=== PATIENT | female | born 1970 | race Caucasian/White ===

== ENCOUNTER 2016-06-29 15:16 | Outpatient (RCR) | payer MEDICARE, MEDICAID ==
[2016-06-14 13:30] LABS: BASOPHILS # (AUTO) 0.1 10^3/uL (0.0-0.1); BASOPHILS % (AUTO) 1 % (0-10); EOSINOPHILS # (AUTO) 0.1 10^3/uL (0.0-0.3); EOSINOPHILS % (AUTO) 1 % (0-10); LYMPHOCYTES # (AUTO) 3.1 X 10^3 (1.0-4.0); LYMPHOCYTES % (AUTO) 29 % (12-44); MEAN CORPUSCULAR HEMOGLOBIN 29 PG (25-34); MEAN CORPUSCULAR HGB CONC 31 G/DL (32-36); MEAN CORPUSCULAR VOLUME 93 FL (80-99); MONOCYTES # (AUTO) 0.8 X 10^3 (0.0-1.0); MONOCYTES % (AUTO) 7 % (0-12); NEUTROPHILS # (AUTO) 6.6 X 10^3 (1.8-7.8); NEUTROPHILS % (AUTO) 62 % (42-75); PLATELET COUNT 453 10^3/uL (130-400); RED BLOOD COUNT 4.97 10^6/uL (4.35-5.85); RED CELL DISTRIBUTION WIDTH 14.8 % (10.0-14.5); WHITE BLOOD COUNT 10.6 10^3/uL (4.3-11.0)
[2016-06-14 14:20] LABS: ALANINE AMINOTRANSFERASE 36 U/L (0-55); ANION GAP 11 MMOL/L (5-14); ASPARTATE AMINO TRANSFERASE 53 U/L (5-34); BILIRUBIN,TOTAL 0.7 MG/DL (0.1-1.0); BLOOD UREA NITROGEN 10 MG/DL (7-18); BUN/CREATININE RATIO 14; CALCIUM 9.3 MG/DL (8.5-10.1); CARBON DIOXIDE 30 MMOL/L (21-32); CHLORIDE 97 MMOL/L (98-107); CREATININE SERUM 0.74 MG/DL (0.60-1.30); GFR ESTIMATED > 60; GLUCOSE 161 MG/DL (70-105); POTASSIUM 4.3 MMOL/L (3.6-5.0); SODIUM 138 MMOL/L (135-145); TOTAL PROTEIN 7.1 G/DL (6.4-8.2)
[2016-06-14 14:26] LABS: ERYTHROCYTE SEDIMENTATION RATE 3 MM/HR (0-20)
[~2016-06-29 15:16] MED LIST: AC325T PO; ACHYD1T PO; ALPR.25T PO; ASPI-587 PO; ATOR80TA75 PO; BSC10SU PR; CLN.1T PO; CLON1TAB3 PO; CLONIDINE; CLOP75TA PO; CLPD75T PO; DLT30T PO; FERRIC CARBOXYMALTOSE (CANCER) 750 MG in NS (IVPB) CANCER CENTER 250 ML IV SCH; FURO20TA4 PO; GEMF600T3 PO; GEMFIBROZIL; HCT25T PO; HCTZ12.5T PO; HYDR-2890 PO; LVF500T PO; MECL25TA56 PO; MELA1TAB20 PO; METO25TA2 PO; NAPR-243 PO; NAPROXEN; NCT14P TD; NYST1000 PO; OMEP40CA36 PO; ONDA-42 SL; ONDA4TAB8 SL; POLY17PO23 PO; PROPRANOLOL PO; SCP1.5TD TOP; SENN1TAB76 PO; SULF1TAB38 PO; TELM40T PO; TRM50T PO
[2016-08-16] MEDS ORDERED: NITR-65 PO (16:44)
[2016-08-16] MEDS ORDERED: PHEN-640 PO (16:44)
== END 2016-09-12 | disposition home or self-care (01) ==
LOC: ONC 15:16
PROVIDERS: ATTEND Internal Medicine Hematology & Oncology
DX: D47.3 Essential (hemorrhagic) thrombocythemia (principal); D72.829 Elevated white blood cell count, unspecified; I69.992 Facial weakness following unspecified cerebrovascular disease; I69.998 Other sequelae following unspecified cerebrovascular disease; M62.81 Muscle weakness (generalized); I10 Essential (primary) hypertension; R00.0 Tachycardia, unspecified; E78.5 Hyperlipidemia, unspecified; Z79.899 Other long term (current) drug therapy
CPT/HCPCS: 36415; 80053; 82728; 83540; 85025; 85240; 85652; 96365; 99213

== ENCOUNTER → 2016-07-02 | Outpatient (CLI) | payer MEDICARE, MEDICAID ==
[~2016-07-02] MED LIST changes: -FERRIC CARBOXYMALTOSE (CANCER) 750 MG in NS (IVPB) CANCER CENTER 250 ML IV SCH; +GADOBUTROL 10 MMOL/10 ML (GADAVIST) VIAL IV ONE
--- NOTE | 2016-07-02 14:32 | Diagnostic Imaging Report ---
PROCEDURE: MR imaging of the brain with and without contrast. TECHNIQUE: Multiplanar, multisequence MR imaging of the brain was performed with and without contrast. INDICATION: Headache. 9 mL of Gadovist is administered intravenously. COMPARISON: Comparison with recent CT head and MRI of the brain from 04/20/2012 is reviewed. FINDINGS: There is no diffusion restriction. There are foci of low T1 and T2 hyperintense signal less than a centimeter in the posterior left side aspect of the medulla oblongata and in the mid and posterior aspect of the left cerebellar hemisphere with similar findings on MRI from 2012 compatible with old lacunar infarcts or sequela of other insults. No acute infarct. Supratentorial brain demonstrates normal volume with normal signal intensity. No edema, demyelinating plaque, or enhancing mass. There is no hydrocephalus. No extra-axial fluid collection is seen. The pituitary gland is normal in size. No hypothalamic or pineal region mass. The central vascular flow voids appear grossly unremarkable. The internal auditory canals and inner ear structures appear unremarkable. The paranasal sinuses and orbits appear grossly unremarkable. There is mild thickening of the mucosa along the middle and inferior turbinates particularly on the right side narrowing the right nasal passages. IMPRESSION: 1. No acute infarct or enhancing mass. 2. Chronic small foci of signal abnormality in the posterior left medulla oblongata and in the left cerebellar hemisphere. These may relate to lacunar infarcts in the distribution of the left posterior inferior cerebellar artery or sequela of prior other insults. 3. Mild mucosal thickening along the right middle and inferior turbinates with narrowing of the right nasal passages. Dictated by: Dictated on workstation # [id number]
== END ==
LOC: RAD 10:14
PROVIDERS: ATTEND Internal Medicine Hematology & Oncology
DX: R51 Headache (principal); R42 Dizziness and giddiness
CPT/HCPCS: 70553

== ENCOUNTER 2016-08-16 13:53 | Emergency (ER) | payer MEDICARE, MEDICAID ==
[~2016-08-16] VITALS: Ht 157.5 cm; Wt 93.4 kg
[~2016-08-16 13:53] MED LIST changes: -GADOBUTROL 10 MMOL/10 ML (GADAVIST) VIAL IV ONE
[2016-08-16 15:14] LABS: KETONES,URINE NEGATIVE (NEGATIVE); LEUKOCYTE ESTERASE ,URINE NEGATIVE (NEGATIVE); NITRITE,URINE POSITIVE (NEGATIVE); PH,URINE 5 (5-9); PROTEIN,URINE 2+ (NEGATIVE); UROBILINOGEN,URINE 4 MG/DL (NORMAL)
[2016-08-16 15:38] LABS: BILIRUBIN,URINE 3+ (NEGATIVE)
--- NOTE | 2016-08-16 15:45 | ED GU-Female ---
General Chief Complaint: -Female Stated Complaint: UTI Nursing Triage Note: PT CO OF UTI SX STARTED YESTERDAY, HAS SOME HEMATURIA, HAS PAIN 10/10 WHEN VOIDS Nursing Sepsis Screen: No Definite Risk Source: patient Exam Limitations: no limitations History of Present Illness Time seen by provider: 15:45 Initial Comments 45-year-old female patient presents to the emergency department complains of dysuria and hematuria. Reports onset of symptoms yesterday. Patient does take a blood thinner and baby aspirin for previous CVA. Has been using Azo over-the- counter without improvement. Timing/Duration: yesterday, getting worse Severity/Quality: burning Location: urethral Radiation: none Activities at Onset: other (urination) Prior Genitourinary Problems: similar symptoms Modifying Factors: Worsens With Urinating Allergies and Home Medications Allergies Coded Allergies: erythromycin base (Unverified Allergy, Mild, 11/11/08) Penicillins (Verified Allergy, Unknown, 11/14/08) codeine (Verified Allergy, Unknown, 11/14/08) Home Medications Acetaminophen 325 Mg Tab, 650 MG PO Q4H PRN for mild pain or fever for 30 Days Prescribed by: ERNESTO SY on 09/28/1332 Aspirin 81 Mg Tablet.dr, 81 MG PO DAILY, (Reported) Atorvastatin Calcium 80 Mg Tablet, 80 MG PO HS, #30 Prescribed by: CELIA ISAACS on 09/24/131849 Bisacodyl 10 Mg Supp, 10 MG TN DAILY PRN for CONSTIPATION for 30 Days Prescribed by: ERNESTO SY on 09/28/13 0932 Clopidogrel Bisulfate 75 Mg Tablet, 1 EACH PO DAILY, #30 Prescribed by: CELIA ISAACS on 09/24/131849 Diltiazem Hcl 30 Mg Tab, 30 MG PO Q8HR for 30 Days Prescribed by: ERNESTO SY on 09/28/13 0932 Hydrochlorothiazide 12.5 Mg Cap, 25 MG PO DAILY, (Reported) Hydrocodone Bit/Acetaminophen 1 Each Tablet, 1 EACH PO NEEDED, (Reported) Melatonin/Pyridoxine Hcl (B6) 1 Each Tab.mphase, 1 EACH PO HS, (Reported) Metoprolol Tartrate 25 Mg Tablet, 25 MG PO BID for 30 Days Prescribed by: ERNESTO SY on 09/28/13 0932 Nystatin 60 Ml Btl, 5 ML PO Q6H for 5 Days swish and swallow QID x5 days Prescribed by: THELMA FARAH on 05/11/14 2018 Omeprazole 40 Mg Capsule.dr, 40 MG PO DAILY, (Reported) Ondansetron 4 Mg Tab.rapdis, 4 MG SL Q4H PRN for NAUSEA/VOMITING, #10 Prescribed by: AKBAR BARROW on 09/10/15 0349 Ondansetron Hcl 4 Mg Tab, 4 MG SL Q4H, #10 FOR NAUSEA AND VOMITING Prescribed by: BLAIR DANIELS on 05/19/14 1128 Polyethylene Glycol 17 Gm Pack, 17 GM PO DAILY PRN for CONSTIPATION, #30 Prescribed by: CELIA ISAACS on 09/24/13 1850 Senna 1 Ea Tablet, 1 EA PO BID for 30 Days Prescribed by: ERNESTO SY on 09/28/13 0932 Constitutional: No chills, No fever, No malaise Respiratory: no symptoms reported Cardiovascular: no symptoms reported Gastrointestinal: No abdominal pain, No constipation, No diarrhea, No nausea, No vomiting Genitourinary: see HPI, burning, dysuria, frequency, denies flank pain, hematuria Musculoskeletal: No back pain Skin: no symptoms reported Psychiatric/Neurological: No Symptoms Reported All Other Systemes Reviewed Negative Unless Noted: Yes (Negative excepted noted.) Past Qqwypno-Syvhlg-Jegque Hx Patient Social History Alcohol Use: Denies Use Recreational Drug Use: No Smoking Status: Current Everyday Smoker Type Used: Cigarettes Recent Foreign Travel: No Contact w/Someone Who Travel: No Recent Infectious Disease Expo: No Immunizations Up To Date Tetanus Booster (TDap): Unknown PED Vaccines UTD: No Surgeries HX Surgeries: Yes Surgeries: Section, Gallbladder, Tubal Ligation Respiratory Hx Respiratory Disorders: No Cardiovascular Hx Cardiac Disorders: Yes Cardiac Disorders: Hypertension, Irregular Heartbeat Neurological Hx Neurological Disorders: Yes Neurological Disorders: Stroke, Vertigo Reproductive System Hx Reproductive Disorders: Yes Sexually Transmitted Disease: No Female Reproductive Disorders: Endometriosis 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 Genitourinary Hx Genitourinary Disorders: No Gastrointestinal Hx Gastrointestinal Disorders: Yes Gastrointestinal Disorders: Gastroesophageal Reflux, Hiatal Hernia, Gall Bladder Disease Musculoskeletal Hx Musculoskeletal Disorders: Yes Musculoskeletal Disorders: Arthritis Endocrine Hx Endocrine Disorders: No Endocrine Disorders: Diabetes, Insulin dep, Diabetes, Non-Insulin dep HEENT HX ENT Disorders: Yes Cancer Hx Cancer: No Psychosocial Hx Psychiatric Problems: Yes Behavioral Health Disorders: Anxiety Integumentary HX Skin/Integumentary Disorder: No Blood Transfusions Hx Blood Disorders: Yes ("CLOTTING DISORDER", chronic leukocytosis) Adverse Reaction to a Blood Tr: No Reviewed Nursing Assessment Reviewed/Agree w Nursing PMH: Yes Family Medical History Significant Family History: Heart Disease, Hypertension, Stroke Family Medial History: Cancer 19 MOTHER (THROAT CANCER) Family history: Hypertension 19 MOTHER History of - disorder G8 SISTER (SISTER HAD MS) Myocardial infarction 19 FATHER 19 MOTHER Stroke 19 MOTHER Physical Exam Vital Signs Vital Sign - Last 12Hours 08/16/16 15:00 Temp 97.2 Pulse 104 Resp 18 B/P (MAP) 114/80 Pulse Ox 99 Capillary Refill : Less Than 3 Seconds General Appearance: WD/WN, no apparent distress HEENT: PERRL/EOMI, pharynx normal Neck: supple, normal inspection Cardiovascular: regular rate, rhythm, no murmur Respiratory: lungs clear, normal breath sounds, no respiratory distress Gastrointestinal: normal bowel sounds, non tender, soft, no organomegaly, No distended Back: normal inspection, no CVA tenderness Extremities: normal capillary refill Neurologic/Psychiatric: alert, normal mood/affect, oriented x 3 Skin: normal color, warm/dry Progress/Results/Core Measures Results/Orders Lab Results Laboratory Tests Test 08/16/16 15:00 Range/Units Urine Color RED H Urine Clarity SLIGHTLY CLOUDY Urine pH 5 5-9 Urine Specific [place] 1.015 L 1.016-1.022 Urine Protein 2+ H NEGATIVE Urine Glucose (UA) 2+ H NEGATIVE Urine Ketones NEGATIVE NEGATIVE Urine Nitrite POSITIVE H NEGATIVE Urine Bilirubin 3+ H NEGATIVE Urine Urobilinogen 4 H NORMAL MG/DL Urine Leukocyte Esterase NEGATIVE NEGATIVE Urine RBC (Auto) 4+ H NEGATIVE Urine RBC TNTC H /HPF Urine WBC 5-10 H /HPF Urine Squamous Epithelial Cells 10-25 H /HPF Urine Crystals NONE /LPF Urine Bacteria FEW H /HPF Urine Casts NONE /LPF Urine Mucus NEGATIVE /LPF Urine Culture Indicated YES My Orders Orders - PRISCILLA QUINN Ua Culture If Indicated (08/16/16 14:55) Urine Culture (08/16/16 15:00) Rx-Nitrofurantoin [place] (Rx-Macrobid) (08/16/16 16:38) Phenazopyridine Tablet (Pyridium Tablet) (5/29/17 16:45) Vital Signs/I&O Vital Sign - Last 12Hours 08/16/16 15:00 Temp 97.2 Pulse 104 Resp 18 B/P (MAP) 114/80 Pulse Ox 99 Blood Pressure Mean: 91 Departure Impression Impression: Primary Impression: Urinary tract infection Qualified Codes: N30.01 - Acute cystitis with hematuria Disposition: HOME, SELF-CARE Condition: Improved Departure-Patient Inst. Decision time for Depature: 16:43 Referrals: [facility] (PCP) Primary Care Physician SOTERO HUIZAR APRN (Family) Primary Care Physician Patient Instructions: Urinary Tract Infection, Adult (DC) Add. Discharge Instructions: All discharge instructions reviewed with patient and/or family. Voiced understanding. Medications as instructed. Tylenol extra strength over-the- counter as directed for pain. Drink plenty of fluids. Follow-up with your family practitioner for repeat urinalysis 3-4 days after finishing her antibiotics. Return to the emergency department immediately for worsened pain, blood in the urine, inability to urinate, fever, vomiting, or any other concerns. Scripts Phenazopyridine HCl (Pyridium) 200 Mg Tablet 1 TAB PO Q8H Y for in, #30 TAB 0 Refills Prov: PRISCILLA QUINN 08/16/16 Nitrofurantoin Monohyd/M-Cryst (Macrobid 100 mg Capsule) 100 Mg Capsule 1 TAB PO BID, #20 CAP 0 Refills Prov: PRISCILLA QUINN 08/16/16 PRISCILLA QIUNN August 16, 2016 15:45
[2016-08-16] MEDS ORDERED: RX-NITROFURANTOIN 100 MG (MACROBID) CAP PPK#2 PO STA (16:38)
[2016-08-16] MEDS ORDERED: NITR-65 PO (16:44)
[2016-08-16] MEDS ORDERED: PHEN-640 PO (16:44)
[2016-08-16] MEDS ORDERED: PHENAZOPYRIDINE 100 MG (PYRIDIUM) TABLET PO ONE (16:45)
[2016-08-16 16:50] VITALS: BP 114/80
== END 2016-08-16 16:50 | disposition home or self-care (01) ==
LOC: EDUNIT# 13:53 → ER 13:54
DX: N30.01 Acute cystitis with hematuria (principal); I10 Essential (primary) hypertension; E11.9 Type 2 diabetes mellitus without complications; F17.210 Nicotine dependence, cigarettes, uncomplicated; Z79.82 Long term (current) use of aspirin; Z79.02 Long term (current) use of antithrombotics/antiplatelets; Z79.899 Other long term (current) drug therapy
CPT/HCPCS: 81000; 87077; 87088; 87186; 99283

== ENCOUNTER 2016-11-09 20:07 | Emergency (ER) | payer MEDICARE, MEDICAID ==
[~2016-11-09] VITALS: Ht 157.5 cm; Wt 93.4 kg
[~2016-11-09 20:07] MED LIST changes: +NITR-65 PO; +PHEN-640 PO
--- OUTSIDE RECORDS SUMMARY | 2016-11-09 20:12 | XMS REPORT | Clinical Summary ---
Author Author [facility] Organization [facility] Address Unknown Phone Unavailable Care Team Providers Care Web Search Evaluator Name Role Phone PCP Unavailable Source Comments Some departments are not documenting in the electronic medical record. If you do not see the information that you expected, contact Release of Information in the Health Information Management department at [phone] for further assistance in locating additional records.[facility] Allergies Not on File Current Medications Not on file Active Problems Not on file Social History Tobacco Use Types Packs/Day Years Used Date Never Assessed Sex Assigned at Date Recorded Not on file Last Filed Vital Signs Not on file Plan of Treatment Health Maintenance Due Date Last Done Comments PHYSICAL (COMPREHENSIVE) 1976 EXAM PERTUSSIS VACCINE 1980 TETANUS VACCINE 1986 CERVICAL CANCER SCREENING 09/14/1999 BREAST CANCER SCREENING 2009 INFLUENZA VACCINE 11/19/2016 Results Not on filefrom Last 3 Months
--- OUTSIDE RECORDS SUMMARY | 2016-11-09 20:13 | XMS REPORT ---
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 Problem Irregular heart rhythm I49.9 Active Problem Essential hypertension I10 Active Problem Routine health maintenance Z00.00 Active Problem Gastroesophageal reflux disease, esophagitis presence not specified K21.9 Active Problem Hyperlipidemia, unspecified hyperlipidemia type E78.5 Active Problem History of CVA with residual deficit I69.30 Active Problem 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 Active Assessment 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 Active Assessment Chronic pain syndrome G89.4 Active Problem Major depressive disorder, recurrent episode, moderate 296.32 Active Medications Medication Code System Code Instructions Start Date End Date Status Dosage Test strips NDC 0 3 times a day not defined ASA NDC 0 Oral 1 tab Atorvastatin Calcium [facility] [address]-05 80 MG Orally Once a day 1 tablet Lancets [facility] 8193-987750 - not defined MetFORMIN HCl ER [facility] [address]-11 750 MG Orally twice a day 1 tablet with evening meal Senna S [facility] [address]-82 8.6-50 MG Orally Once a day 1 tablet in the evening as needed Levemir Flexpen NDC 0 100 UNIT/ML Subcutaneous at hs 25 units Pantoprazole Sodium [facility] [address]-54 40 mg Orally Once a day September 23, 2015 1 tablet Plavix [facility] [address]-84 75 MG Orally Once a day 1 tablet Hydrochlorothiazide [facility] [address]-57 25 MG Orally Once a day 1 tablet Diltiazem HCl ER [facility] [address]-19 120 MG Orally Once a day 1 capsule on an empty stomach in the morning Metoprolol Tartrate [facility] [address]-87 25 MG Orally Twice a day 1 tablet with food One Touch/One Touch II Starter [facility] 0 1 glucometer subcutaneously 3 times a day October 14, 2015 to take blood sugars daily Dispense as insurance allows Naproxen [facility] [address]-58 500 MG Orally Twice a day 1 tablet Potassium Chloride [facility] [address]-31 10 MEQ Orally Twice a day 1 tablet with food Xanax [facility] [address]-39 1 MG Orally 4 times a day prn anxiety and panic attacks 1 tablet [place] [facility] [address]-09 10-325 MG Orally every 4 hrs Nov 11, 2015 1 tablet as needed Procedures Procedure Coding System Code Date Office Visit, Est Pt., Level 3 CPT-4 99589 October 14, 2015 Vital Signs Date/Time: October 14, 2015 Cardiac Monitoring Heart Rate 80 bpm Weight 220.0 lbs Height 62 in BMI 40.23 Index Blood Pressure Diastolic 78 mmHg Blood Pressure Systolic 124 mmHg Results No Known Results Summary Purpose [employer] Submission
--- OUTSIDE RECORDS SUMMARY | 2016-11-09 20:13 | XMS REPORT ---
Author Author SOTERO HUIZAR Organization [employer] Address Unknown Phone Unavailable Care Team Providers Care Electronics Supervisor Name Role Phone SOTERO HUIZAR CP Unavailable Allergies No Known Allergies Problems Problem Type Condition Code Onset Dates Condition Status Problem Other complicated headache syndrome G44.59 Active Problem Gastroesophageal reflux disease, esophagitis presence not specified K21.9 Active Problem Hyperlipidemia, unspecified hyperlipidemia type E78.5 Active Problem Bacterial conjunctivitis of left eye H10.9 Active Problem Routine health maintenance Z00.00 Active Problem Other chronic pain G89.29 Active Problem History of CVA with residual deficit I69.30 Active Problem 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 Active Problem Irregular heart rhythm I49.9 Active Problem Essential hypertension I10 Active Assessment History of CVA with residual deficit I69.30 Active Problem Major depressive disorder, recurrent episode, moderate F33.1 Active Problem Generalized anxiety disorder F41.1 Active 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
--- OUTSIDE RECORDS SUMMARY | 2016-11-09 20:13 | XMS REPORT ---
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 57895657 Problem Hyperlipidemia, unspecified hyperlipidemia type E78.5 Active 43835321 Problem Other complicated headache syndrome G44.59 Active Assessment Irregular heart rhythm I49.9 Sep, Active 009656651 Problem Major depressive disorder, recurrent episode, moderate F33.1 Active 694601887 Problem Generalized anxiety disorder F41.1 Active 46572840 Problem Routine health maintenance Z00.00 Active 520853863 Problem Irregular heart rhythm I49.9 Active 119246578 Problem 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 Active 32704056 Problem Gastroesophageal reflux disease, esophagitis presence not specified K21.9 Active 396666092 Problem Essential hypertension I10 Active 81624681 Problem History of CVA with residual deficit I69.30 Active 492122551 ALLERGIES Substance Reaction Event Type Date Status Penicillin G Sodium Unknown Drug Allergy Sep, Active Erythromycin Base Unknown Drug Allergy Sep, Active Codeine Unknown Drug Allergy Sep, Active SOCIAL HISTORY No smoking Hx information available PLAN OF CARE VITAL SIGNS Height 62 in 2015-09-23 Weight 215.0 lbs 2015-09-23 Heart Rate 84 bpm 2015-09-23 Respiratory Rate 22 2015-09-23 BMI 39.32 kg/m2 2015-09-23 Blood pressure systolic 128 mmHg 2015-09-23 Blood pressure diastolic 82 mmHg 2015-09-23 MEDICATIONS Medication Instructions Dosage Frequency Start Date End Date Duration Status Pantoprazole Sodium 40 mg Orally Once a day 1 tablet 24h Sep, Active Metoprolol Tartrate 25 MG Orally Twice a day 1 tablet with food 12h Active Test strips 8h Active Naproxen 500 MG Orally Twice a day 1 tablet 12h Active Plavix 75 MG Orally Once a day 1 tablet 24h Active [place] 10-325 MG Orally every 4 hrs 1 tablet as needed 4h Active Xanax 1 MG Orally 4 times a day prn anxiety and panic attacks 1 tablet Active Potassium Chloride 10 MEQ Orally Twice a day 1 tablet with food 12h Active Levemir Flexpen 100 UNIT/ML Subcutaneous at hs 25 units Active Hydrochlorothiazide 25 MG Orally Once a day 1 tablet 24h Active ASA 1 tab Active Lancets - Active Diltiazem HCl ER 120 MG Orally Once a day 1 capsule on an empty stomach in the morning 24h Active Atorvastatin Calcium 80 MG Orally Once a day 1 tablet 24h Active Senna S 8.6-50 MG Orally Once a day 1 tablet in the evening as needed 24h Active MetFORMIN HCl ER 750 MG Orally twice a day 1 tablet with evening meal 12h Active RESULTS Name Result Date Reference Range AMERITOX 2015-09-23 A1C (IN HOUSE) 2015-09-23 A1C IN HOUSE 7.8% 4.3 - 5.6 % Previous A1c Lot [id number] Exp date PROCEDURES Procedure Date Ordered Related Diagnosis Body Site GLYCATED HEMOGLOBIN TEST September 23, 2015 No Charge September 23, 2015 Office Visit, Est Pt., Level 4 September 23, 2015 IMMUNIZATIONS No Known Immunizations
--- OUTSIDE RECORDS SUMMARY | 2016-11-09 20:14 | XMS REPORT ---
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 Medications Medication Code System Code Instructions Start Date End Date Status Dosage Bath/Shower Seat NDC 0 1 please provide one adult shower seat for patient use one time Jan 06, 2016 shower/bath seat for bathing One Touch/One Touch II Starter NDC 0 1 glucometer subcutaneously 3 times a day October 14, 2015 to take blood sugars daily Dispense as insurance allows Naproxen [facility] [address]-55 500 MG Orally Twice a day 1 tablet Hydrocodone-Acetaminophen [facility] [address]-32 10-325 MG Orally every 6 hrs 1 tablet as needed Hydrochlorothiazide [facility] [address]-98 25 MG Orally Once a day 1 tablet Test strips NDC 0 3 times a day not defined Xanax [facility] [address]-86 1 MG Orally 4 times a day prn anxiety and panic attacks 1 tablet Lancets [facility] 8193-007807 - not defined Atorvastatin Calcium [facility] [address]-87 80 MG Orally Once a day 1 tablet Pantoprazole Sodium [facility] [address]-33 40 mg Orally Once a day September 23, 2015 1 tablet Metoprolol Tartrate [facility] [address]-46 25 MG Orally Twice a day 1 tablet with food Diltiazem HCl ER [facility] [address]-69 120 MG Orally Once a day 1 capsule on an empty stomach in the morning Potassium Chloride [facility] [address]-90 10 MEQ Orally Twice a day 1 tablet with food Senna S [facility] [address]-35 8.6-50 MG Orally Once a day 1 tablet in the evening as needed Plavix [facility] [address]-55 75 MG Orally Once a day 1 tablet Levemir Flexpen NDC 0 100 UNIT/ML Subcutaneous at hs 25 units ASA NDC 0 Oral 1 tab [place] [facility] [address]-78 0.025 % Ophthalmic Twice a day Nov 18, 2015 1 drop into affected eye MetFORMIN HCl ER [facility] [address]-14 750 MG Orally twice a day 1 tablet with evening meal Procedures Procedure Coding System Code Date Office Visit, Est Pt., Level 3 CPT-4 51205 Jan 06, 2016 GLYCATED HEMOGLOBIN TEST CPT-4 77024 Jan 06, 2016 Vital Signs Date/Time: Jan 06, 2016 Cardiac Monitoring Heart Rate 80 bpm Weight 213 lbs Height 62 in BMI 38.95 Index Blood Pressure Diastolic 84 mmHg Blood Pressure Systolic 126 mmHg Results Name Result Date Reference Range Unit Abnormality Flag A1C (IN HOUSE) ----A1C IN HOUSE 8.7% 20160106 4.3 - 5.6 % ----Previous A1c 7.8% 20160106 Summary Purpose [employer] Submission
--- OUTSIDE RECORDS SUMMARY | 2016-11-09 20:14 | XMS REPORT ---
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
--- OUTSIDE RECORDS SUMMARY | 2016-11-09 20:15 | XMS REPORT ---
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 Active 74115617 Problem Seasonal allergic rhinitis due to pollen J30.1 Active 69169489 Problem Tobacco abuse Z72.0 Active 305623626 Problem Irregular heart rhythm I49.9 Active 481733543 Problem Essential hypertension I10 Active 06728883 Problem Tobacco abuse counseling Z71.6 Active 223847579 Problem Other chronic pain G89.29 Active 52999546 Problem Generalized anxiety disorder F41.1 Active 76392751 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 86181096 Problem Vitamin D deficiency E55.9 Active 09933900 Problem Other complicated headache syndrome G44.59 Active 669241946 Problem Major depressive disorder, recurrent episode, moderate F33.1 Active 584112582 Problem Hyperlipidemia, unspecified hyperlipidemia type E78.5 Active 73504789 ALLERGIES Substance Reaction Event Type Date Status Penicillin G Sodium Unknown Drug Allergy Feb, Active Erythromycin Base Unknown Drug Allergy Feb, Active Codeine Unknown Drug Allergy Feb, Active SOCIAL HISTORY No smoking Hx information available PLAN OF CARE Activity Details Follow Up prn Reason: VITAL SIGNS Height 62 in 2016-03-09 Weight 214.4 lbs 2016-03-09 Temperature 98.4 degrees Fahrenheit 2016-03-09 Heart Rate 76 bpm 2016-03-09 Respiratory Rate 2016-03-09 BMI 39.21 kg/m2 2016-03-09 Blood pressure systolic 130 mmHg 2016-03-09 Blood pressure diastolic 74 mmHg 2016-03-09 MEDICATIONS Medication Instructions Dosage Frequency Start Date End Date Duration Status MetFORMIN HCl ER 750 MG Orally twice a day 1 tablet with evening meal 12h Active Diltiazem HCl ER 120 MG Orally Once a day 1 capsule on an empty stomach in the morning 24h 90 Active Walker - as directed Jan, Active Plavix 75 MG Orally Once a day 1 tablet 24h 90 Active Senna S 8.6-50 MG Orally Once a day 1 tablet in the evening as needed 24h Active Pantoprazole Sodium 40 mg Orally Once a day 1 tablet 24h Sep, Active Bath/Shower Seat 1 please provide one adult shower seat for patient use one time shower/bath seat for bathing Dec, Active Naproxen 500 MG Orally Twice a day 1 tablet 12h Active Alaway 0.025 % Ophthalmic Twice a day 1 drop into affected eye 12h Oct, Active Pen [place] 32G X 4 MM as directed 24h Jan, Active Test strips 8h Active Hydrocodone-Acetaminophen 10-325 MG Orally every 6 hrs 1 tablet as needed 6h 28 days Active Atorvastatin Calcium 80 MG Orally Once a day 1 tablet 24h Active Potassium Chloride 10 MEQ Orally Twice a day 1 tablet with food 12h Active OneTouch Delica Lancets 33G 33 TEST BLOOD SUGAR THREE TIMES A DAY E11.8 30 Active ASA 1 tab Active Xanax 1 MG Orally Three times a day 1 tablet 8h 28 days Active Hydrochlorothiazide 25 MG Orally Once a day 1 tablet 24h Active Levemir Flexpen 100 UNIT/ML Subcutaneous at hs 25 units Active Zyrtec Allergy 10 MG Orally Once a day 1 tablet 24h Feb, Mar, 30 day(s) Active Metoprolol Tartrate 25 MG Orally Twice a day 1 tablet with food 12h Active Lancets - Active One Touch/One Touch II Starter 1 glucometer subcutaneously 3 times a day to take blood sugars daily Dispense as insurance allows 8h Sep, Active Fluticasone Propionate 50 MCG/ACT Nasally Once a day 1 spray in each nostril 24h Feb, 30 day(s) Active RESULTS No Results PROCEDURES Procedure Date Ordered Related Diagnosis Body Site Office Visit, Est Pt., Level 3 Mar 09, 2016 IMMUNIZATIONS No Known Immunizations
--- OUTSIDE RECORDS SUMMARY | 2016-11-09 20:16 | XMS REPORT ---
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 Active Problem Irregular heart rhythm I49.9 Active Problem Essential hypertension I10 Active Assessment 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 Active Assessment History of CVA with residual deficit I69.30 Active Assessment Hyperlipidemia, unspecified hyperlipidemia type E78.5 Active Assessment Gastroesophageal reflux disease, esophagitis presence not specified K21.9 Active Assessment Generalized anxiety disorder F41.1 Active Problem Major depressive disorder, recurrent episode, moderate F33.1 Active Assessment Essential hypertension I10 Active Problem Generalized anxiety disorder F41.1 Active Assessment Major depressive disorder, recurrent episode, moderate F33.1 Active 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 Medications Medication Code System Code Instructions Start Date End Date Status Dosage Levemir Flexpen NDC 0 100 UNIT/ML Subcutaneous at hs 25 [place] [address]-10 1 MG Orally 4 times a day prn anxiety and panic attacks 1 tablet Polytrim [facility] [address]-56 59863-4.1 UNIT/ML Ophthalmic 3 times a day Nov 18, 2015 Nov 25, 2015 1 drop into affected eye Plavix [facility] [address]-95 75 MG Orally Once a day 1 tablet Test strips NDC 0 3 times a day not defined MetFORMIN HCl ER [facility] [address]-38 750 MG Orally twice a day 1 tablet with evening meal Hydrochlorothiazide [facility] [address]-91 25 MG Orally Once a day 1 tablet ASA ND 0 Oral 1 tab Pantoprazole Sodium [facility] [address]-44 40 mg Orally Once a day September 23, 2015 1 tablet Lancets [facility] 8193-541167 - not defined Potassium Chloride [facility] [address]-15 10 MEQ Orally Twice a day 1 tablet with food Naproxen [facility] [address]-63 500 MG Orally Twice a day 1 tablet Diltiazem HCl ER [facility] [address]-93 120 MG Orally Once a day 1 capsule on an empty stomach in the morning Metoprolol Tartrate [facility] [address]-85 25 MG Orally Twice a day 1 tablet with food One Touch/One Touch II Starter ND 0 1 glucometer subcutaneously 3 times a day October 14, 2015 to take blood sugars daily Dispense as insurance allows Atorvastatin Calcium [facility] [address]-83 80 MG Orally Once a day 1 tablet [place] [facility] [address]-59 10-325 MG Orally every 4 hrs Dec 16, 2015 1 tablet as needed [place]away [facility] [address]-68 0.025 % Ophthalmic Twice a day Nov 18, 2015 1 drop into affected eye Senna S [facility] [address]-36 8.6-50 MG Orally Once a day 1 tablet in the evening as needed Procedures Procedure Coding System Code Date Office Visit, Est Pt., Level 3 CPT-4 71356 Nov 18, 2015 Vital Signs Date/Time: Nov 18, 2015 Cardiac Monitoring Heart Rate 110 bpm Weight 216.0 lbs Height 62 in BMI 39.50 Index Blood Pressure Diastolic 57 mmHg Blood Pressure Systolic 102 mmHg Results No Known Results Summary Purpose [employer] Submission
--- OUTSIDE RECORDS SUMMARY | 2016-11-09 20:16 | XMS REPORT ---
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 [address]-00 120 MG Orally Once a day 1 capsule on an empty stomach in the morning Metoprolol Tartrate [facility] [address]-61 25 MG Orally Twice a day 1 tablet with food Plavix [facility] [address]-01 75 MG Orally Once a day [address] [facility] [address]-31 1 MG Orally Three times a day 1 tablet Hydrocodone-Acetaminophen [facility] [address]-86 10-325 MG Orally every 6 hrs 1 tablet as needed Senna S [facility] [address]-07 8.6-50 MG Orally Once a day 1 tablet in the evening as needed Azithromycin [facility] [address]-80 250 MG Orally Once a day Jan 23, 2016 Jan 28, 2016 2 tablets on the first day, then 1 tablet daily for [address] [facility] [address]-67 0.025 % Ophthalmic Twice a day Nov 18, 2015 1 drop into affected eye Hydrochlorothiazide [facility] [address]-17 25 MG Orally Once a day [address] [facility] [address]-17 10 MEQ Orally Twice a day 1 tablet with food Pantoprazole Sodium [facility] [address]-44 40 mg Orally Once a day September 23, [address] [facility] 8193-212120 - not defined Test strips NDC 0 3 times a day not defined One Touch/One Touch II Starter NDC 0 1 glucometer subcutaneously 3 times a day October 14, 2015 to take blood sugars daily Dispense as insurance allows Naproxen [facility] [address]-06 500 MG Orally Twice a day 1 tablet Levemir Flexpen NDC 0 100 UNIT/ML Subcutaneous at hs [address] [facility] [address]-02 750 MG Orally twice a day 1 tablet with evening meal Walker [facility] [address] - Jan 23, 2016 as directed ASA NDC 0 Oral 1 tab Bath/Shower Seat NDC 0 1 please provide one adult shower seat for patient use one time Jan 06, 2016 shower/bath seat for bathing Atorvastatin Calcium [facility] [address]-80 80 MG Orally Once a day [address] [facility] [address]-09 20 mg Orally Once a day Jan 23, 2016 Jan 28, 2016 1 tablet Procedures Procedure Coding System Code Date Office Visit, Est Pt., Level 3 CPT-4 13156 Jan 23, 2016 Vital Signs Date/Time: Jan 23, 2016 Cardiac Monitoring Heart Rate 90 bpm Weight 213 lbs Height 62 in BMI 38.95 Index Blood Pressure Diastolic 70 mmHg Blood Pressure Systolic 102 mmHg Results No Known Results Summary Purpose [employer] Submission
--- OUTSIDE RECORDS SUMMARY | 2016-11-09 20:17 | XMS REPORT ---
Author Author SOTERO HUIZAR Organization [employer] Address Unknown Phone Unavailable Care Team Providers Care Laboratory Technical Specialist Name Role Phone SOTERO HUIZAR CP Unavailable [...] Instructions Start Date End Date Status Dosage Fuad [facility] [address] - Jan 23, 2016 as directed Results No Known Results Summary Purpose [employer] Submission
--- OUTSIDE RECORDS SUMMARY | 2016-11-09 20:17 | XMS REPORT ---
Author Author SOTERO HUIZAR Organization [employer] Address Unknown Phone Unavailable Care Team Providers Care Lifestyle Director Name Role Phone SOTERO HUIZAR CP Unavailable [...] Instructions Start Date End Date Status Dosage Hydrocodone-Acetaminophen [facility] [address]-24 10-325 MG Orally every 6 hrs 1 tablet as needed Xanax [facility] [address]-85 1 MG Orally Three times a day 1 tablet Results No Known Results Summary Purpose [employer] Submission
--- OUTSIDE RECORDS SUMMARY | 2016-11-09 20:17 | XMS REPORT ---
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
--- OUTSIDE RECORDS SUMMARY | 2016-11-09 20:17 | XMS REPORT ---
Author Author SOTERO HUIZAR Organization [employer] Address Unknown Phone Unavailable Care Team Providers Care Watershed Engineer Name Role Phone SOTERO HUIZAR CP Unavailable [...]
--- OUTSIDE RECORDS SUMMARY | 2016-11-09 20:17 | XMS REPORT ---
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 Problem Routine health maintenance Z00.00 Active Assessment Other chronic pain G89.29 Active Assessment Generalized anxiety disorder F41.1 Active Problem Other chronic pain G89.29 Active [...] esophagitis presence not specified K21.9 Active Assessment Major depressive disorder, recurrent episode, moderate F33.1 Active Problem Major depressive disorder, recurrent episode, moderate F33.1 Active Assessment Essential hypertension I10 Active Problem Generalized anxiety disorder F41.1 Active Assessment Irregular heart rhythm I49.9 Active 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 [address]-87 1 MG Orally 4 times a day prn anxiety and panic attacks 1 tablet [place] [facility] [address]-30 10-325 MG Orally every 4 hrs Dec 16, 2015 1 tablet as needed Lancets [facility] 8193-663419 - not defined Diltiazem HCl ER [facility] [address]-73 120 MG Orally Once a day 1 capsule on an empty stomach in the morning Naproxen DR [facility] 65593110481 500 TAKE ONE TABLET BY MOUTH TWICE A DAY Pantoprazole Sodium [facility] [address]-13 40 mg Orally Once a day September 23, 2015 1 tablet Potassium Chloride [facility] [address]-86 10 MEQ Orally Twice a day 1 tablet with food [place] [facility] [address]-03 0.025 % Ophthalmic Twice a day Nov 18, 2015 1 drop into affected eye Metoprolol Tartrate [facility] [address]-34 25 MG Orally Twice a day 1 tablet with food Pantoprazole Sodium [facility] 76343360302 40 Orally Once a day 1 tablet Atorvastatin Calcium [facility] [address]-77 80 MG Orally Once a day 1 tablet Levemir Flexpen NDC 0 100 UNIT/ML Subcutaneous at hs 25 units MetFORMIN HCl ER [facility] [address]-82 750 MG Orally twice a day 1 tablet with evening meal Naproxen [facility] [address]-75 500 MG Orally Twice a day 1 tablet One Touch/One Touch II Starter NDC 0 1 glucometer subcutaneously 3 times a day October 14, 2015 to take blood sugars daily Dispense as insurance allows Hydrochlorothiazide [facility] [address]-16 25 MG Orally Once a day 1 tablet ASA NDC 0 Oral 1 tab Senna S [facility] [address]-63 8.6-50 MG Orally Once a day 1 tablet in the evening as needed Test strips NDC 0 3 times a day not defined Plavix [facility] [address]-82 75 MG Orally Once a day 1 tablet Procedures Procedure Coding System Code Date Office Visit, Est Pt., Level 4 CPT-4 34959 Dec 19, 2015 Vital Signs Date/Time: Dec 19, 2015 Cardiac Monitoring Heart Rate 84 bpm Weight 212.8 lbs Height 62 in BMI 38.92 Index Blood Pressure Diastolic 78 mmHg Blood Pressure Systolic 131 mmHg Results No Known Results Summary Purpose [employer] Submission
--- OUTSIDE RECORDS SUMMARY | 2016-11-09 20:18 | XMS REPORT ---
Author Author SOTERO HUIZAR Organization [employer] Address Unknown Phone Unavailable Care Team Providers Care Maintenance Of Way Superintendent Name Role Phone SOTERO HUIZAR CP Unavailable [...] Instructions Start Date End Date Status Dosage Potassium Chloride [facility] [address]-79 10 MEQ Orally Twice a day 1 tablet with food Results No Known Results Summary Purpose [employer] Submission
[2016-11-09 22:17] LABS: BASOPHILS # (AUTO) 0.1 10^3/uL (0.0-0.1); BASOPHILS % (AUTO) 0 % (0-10); EOSINOPHILS # (AUTO) 0.1 10^3/uL (0.0-0.3); EOSINOPHILS % (AUTO) 1 % (0-10); LYMPHOCYTES # (AUTO) 3.8 X 10^3 (1.0-4.0); LYMPHOCYTES % (AUTO) 33 % (12-44); MEAN CORPUSCULAR HEMOGLOBIN 31 PG (25-34); MEAN CORPUSCULAR HGB CONC 32 G/DL (32-36); MEAN CORPUSCULAR VOLUME 97 FL (80-99); MEAN PLATELET VOLUME 11.2 FL (7.4-10.4); MONOCYTES # (AUTO) 0.9 X 10^3 (0.0-1.0); MONOCYTES % (AUTO) 8 % (0-12); NEUTROPHILS # (AUTO) 6.7 X 10^3 (1.8-7.8); NEUTROPHILS % (AUTO) 58 % (42-75); PLATELET COUNT 353 10^3/uL (130-400); RED BLOOD COUNT 4.62 10^6/uL (4.35-5.85); RED CELL DISTRIBUTION WIDTH 14.2 % (10.0-14.5); WHITE BLOOD COUNT 11.5 10^3/uL (4.3-11.0)
[2016-11-09 22:29] LABS: ALANINE AMINOTRANSFERASE 53 U/L (0-55); ALBUMIN 3.8 GM/DL (3.2-4.5); ANION GAP 12 MMOL/L (5-14); ASPARTATE AMINO TRANSFERASE 63 U/L (5-34); BILIRUBIN,TOTAL 0.5 MG/DL (0.1-1.0); BLOOD UREA NITROGEN 8 MG/DL (7-18); BUN/CREATININE RATIO 11; CALCIUM 8.9 MG/DL (8.5-10.1); CARBON DIOXIDE 28 MMOL/L (21-32); CHLORIDE 96 MMOL/L (98-107); CREATININE SERUM 0.74 MG/DL (0.60-1.30); GFR ESTIMATED > 60; GLUCOSE 325 MG/DL (70-105); MAGNESIUM 1.7 MG/DL (1.8-2.4); POTASSIUM 3.4 MMOL/L (3.6-5.0); SODIUM 136 MMOL/L (135-145); TOTAL PROTEIN 6.8 GM/DL (6.4-8.2)
--- NOTE | 2016-11-09 22:30 | ED General ---
General Chief Complaint: Dizziness/Syncope Stated Complaint: DIZZINESS,NAUSEA Nursing Triage Note: Reports awoke dizzy this am with nausea, reports sometimes anxiety causes similar sx and took Xanax and went back to bed. Pt has went out today "rock hunting" with grandchildren. Nursing Sepsis Screen: No Definite Risk Source of Information: Patient Exam Limitations: No Limitations History of Present Illness Time Seen by Provider: 21:59 Initial Comments This 46-year-old woman presents to the emergency room with complaints of lightheadedness and disequilibrium upon waking this morning. She reports having problems with chronic lightheadedness but her experience this morning was an exacerbation and was accompanied by disequilibrium. She reports falling toward the left. She has felt fatigued throughout the afternoon. She has continued to have some sensation of disequilibrium without loss of balance. She reports the chronic lightheadedness has been present since having strokes in the past. She has been nauseated with a small amount of vomiting this morning. Vision has been a little blurry. She is a diabetic and has not checked her blood sugars today. Patient reports she is presently going through menopause. She frequently has hot flashes and diaphoresis associated with this. Allergies and Home Medications Allergies Coded Allergies: erythromycin base (Unverified Allergy, Mild, 11/11/08) Penicillins (Verified Allergy, Unknown, 11/14/08) codeine (Verified Allergy, Unknown, 11/14/08) Home Medications Acetaminophen 325 Mg Tab, 650 MG PO Q4H PRN for mild pain or fever for 30 Days Prescribed by: ERNESTO SY on 09/28/1332 Aspirin 81 Mg Tablet.dr, 81 MG PO DAILY, (Reported) Atorvastatin Calcium 80 Mg Tablet, 80 MG PO HS, #30 Prescribed by: CELIA ISAACS on 09/24/131849 Bisacodyl 10 Mg Supp, 10 MG AL DAILY PRN for CONSTIPATION for 30 Days Prescribed by: ERNESTO SY on 09/28/1332 Clopidogrel Bisulfate 75 Mg Tablet, 1 EACH PO DAILY, #30 Prescribed by: CELIA ISAACS on 09/24/131849 Diltiazem Hcl 30 Mg Tab, 30 MG PO Q8HR for 30 Days Prescribed by: ERNESTO SY on 09/28/13 0932 Hydrochlorothiazide 12.5 Mg Cap, 25 MG PO DAILY, (Reported) Hydrocodone Bit/Acetaminophen 1 Each Tablet, 1 EACH PO NEEDED, (Reported) Melatonin/Pyridoxine Hcl (B6) 1 Each Tab.mphase, 1 EACH PO HS, (Reported) Metoprolol Tartrate 25 Mg Tablet, 25 MG PO BID for 30 Days Prescribed by: ERNESTO SY on 09/28/13 0932 Nitrofurantoin Monohyd/M-Cryst 100 Mg Capsule, 1 TAB PO BID, #20 Ref 0 Prescribed by: PRISCILLA QUINN on 08/16/16 1644 Nystatin 60 Ml Btl, 5 ML PO Q6H for 5 Days swish and swallow QID x5 days Prescribed by: THELMA FARAH on 05/11/14 2018 Omeprazole 40 Mg Capsule.dr, 40 MG PO DAILY, (Reported) Ondansetron 4 Mg Tab.rapdis, 4 MG SL Q4H PRN for NAUSEA/VOMITING, #10 Prescribed by: AKBAR BARROW on 09/10/15 0349 Ondansetron Hcl 4 Mg Tab, 4 MG SL Q4H, #10 FOR NAUSEA AND VOMITING Prescribed by: BLAIR DANIELS on 05/19/14 1128 Phenazopyridine HCl 200 Mg Tablet, 1 TAB PO Q8H PRN for in, #30 Ref 0 Prescribed by: PRISCILLA QUINN on 08/16/16 1644 Polyethylene Glycol 17 Gm Pack, 17 GM PO DAILY PRN for CONSTIPATION, #30 Prescribed by: CELIA ISAACS on 09/24/13 1850 Senna 1 Ea Tablet, 1 EA PO BID for 30 Days Prescribed by: ERNESTO SY on 09/28/13 0932 Constitutional: see HPI EENTM: see HPI Respiratory: no symptoms reported Cardiovascular: see HPI Gastrointestinal: see HPI Genitourinary: no symptoms reported : No Musculoskeletal: no symptoms reported Skin: no symptoms reported Psychiatric/Neurological: See HPI Hematologic/Lymphatic: No Symptoms Reported Past Efldrfk-Rymhhy-Ewgglh Hx Patient Social History Alcohol Use: Denies Use Recreational Drug Use: No Smoking Status: Current Everyday Smoker Type Used: Cigarettes Recent Foreign Travel: No Contact w/Someone Who Travel: No Recent Infectious Disease Expo: No Recent Hopitalizations: No Immunizations Up To Date Tetanus Booster (TDap): Unknown PED Vaccines UTD: No Seasonal Allergies Seasonal Allergies: No Surgeries History of Surgeries: Yes Surgeries: Section, Gallbladder, Tubal Ligation Respiratory History of Respiratory Disorde: No (Tobaccoism) Cardiovascular History of Cardiac Disorders: Yes Cardiac Disorders: Hypertension, Irregular Heartbeat Neurological History of Neurological Disord: Yes Neurological Disorders: Stroke, Vertigo Reproductive System Hx Reproductive Disorders: Yes Sexually Transmitted Disease: No Female Reproductive Disorders: Endometriosis 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 Gastrointestinal History of Gastrointestinal Di: Yes Gastrointestinal Disorders: Gastroesophageal Reflux, Hiatal Hernia, Gall Bladder Disease Musculoskeletal History of Musculoskeletal Dis: Yes Musculoskeletal Disorders: Arthritis Endocrine History of Endocrine Disorders: No Endocrine Disorders: Diabetes, Insulin dep, Diabetes, Non-Insulin dep HEENT History of HEENT Disorders: No Cancer History of Cancer: No Psychosocial History of Psychiatric Problem: Yes Behavioral Health Disorders: Anxiety Integumentary History of Skin or Integumenta: No Blood Transfusions History of Blood Disorders: Yes ("CLOTTING DISORDER", chronic leukocytosis) Adverse Reaction to a Blood Tr: No Family Medical History Significant Family History: Heart Disease, Hypertension, Stroke Family Medial History: Cancer 19 MOTHER (THROAT CANCER) Family history: Hypertension 19 MOTHER History of - disorder G8 SISTER (SISTER HAD MS) Myocardial infarction 19 FATHER 19 MOTHER Stroke 19 MOTHER Physical Exam Vital Signs Vital Sign - Last 12Hours 11/09/16 20:13 Temp 98.4 Pulse 96 Resp 20 B/P (MAP) 105/72 Pulse Ox 93 O2 Delivery Room Air Capillary Refill : Less Than 3 Seconds General Appearance: No Apparent Distress, WD/WN HEENT: PERRL/EOMI, Normal ENT Inspection Neck: Normal Inspection Respiratory: Lungs Clear, Normal Breath Sounds, No Accessory Muscle Use, No Respiratory Distress Cardiovascular: Regular Rate, Rhythm, No Edema, No Murmur, Normal Peripheral Pulses Gastrointestinal: Non Tender, Soft Extremity: Normal Inspection, No Pedal Edema Neurologic/Psychiatric: Alert, Oriented x3, No Motor/Sensory Deficits, Normal Mood/Affect, production grip II-XII Norm as Tested, Other (normal gait) Skin: Normal Color, Other (clammy skin) Progress/Results/Core Measures Results/Orders Lab Results Laboratory Tests Test 11/09/16 20:30 11/09/16 23:08 Range/Units White Blood Count 11.5 H 4.3-11.0 10^3/uL Red Blood Count 4.62 4.35-5.85 10^6/uL Hemoglobin 14.3 11.5-16.0 G/DL Hematocrit 45 35-52 % Mean Corpuscular Volume 97 80-99 FL Mean Corpuscular Hemoglobin 31 25-34 PG Mean Corpuscular Hemoglobin Concent 32 32-36 G/DL Red Cell Distribution Width 14.2 10.0-14.5 % Platelet Count 353 130-400 10^3/uL Mean Platelet Volume 11.2 H 7.4-10.4 FL Neutrophils (%) (Auto) 58 42-75 % Lymphocytes (%) (Auto) 33 12-44 % Monocytes (%) (Auto) 8 0-12 % Eosinophils (%) (Auto) 1 0-10 % Basophils (%) (Auto) 0 0-10 % Neutrophils # (Auto) 6.7 1.8-7.8 X 10^3 Lymphocytes # (Auto) 3.8 1.0-4.0 X 10^3 Monocytes # (Auto) 0.9 0.0-1.0 X 10^3 Eosinophils # (Auto) 0.1 0.0-0.3 10^3/uL Basophils # (Auto) 0.1 0.0-0.1 10^3/uL Sodium Level 136 135-145 MMOL/L Potassium Level 3.4 L 3.6-5.0 MMOL/L Chloride Level 96 L 98-107 MMOL/L Carbon Dioxide Level 28 21-32 MMOL/L Anion Gap 12 5-14 MMOL/L Blood Urea Nitrogen 8 7-18 MG/DL Creatinine 0.74 0.60-1.30 MG/DL Estimat Glomerular Filtration Rate > 60 BUN/Creatinine Ratio 11 Glucose Level 325 H 70-105 MG/DL Calcium Level 8.9 8.5-10.1 MG/DL Magnesium Level 1.7 L 1.8-2.4 MG/DL Total Bilirubin 0.5 0.1-1.0 MG/DL Aspartate Amino Transf (AST/SGOT) 63 H 5-34 U/L Alanine Aminotransferase (ALT/SGPT) 53 0-55 U/L Alkaline Phosphatase 95 40-136 U/L Troponin I < 0.30 <0.30 NG/ML Total Protein 6.8 6.4-8.2 GM/DL Albumin 3.8 3.2-4.5 GM/DL Urine Color DILIP H Urine Clarity CLEAR Urine pH 5 5-9 Urine Specific [place] 1.020 1.016-1.022 Urine Protein 1+ H NEGATIVE Urine Glucose (UA) 3+ H NEGATIVE Urine Ketones NEGATIVE NEGATIVE Urine Nitrite NEGATIVE NEGATIVE Urine Bilirubin NEGATIVE NEGATIVE Urine Urobilinogen NORMAL NORMAL MG/DL Urine Leukocyte Esterase 1+ H NEGATIVE Urine RBC (Auto) NEGATIVE NEGATIVE Urine RBC NONE /HPF Urine WBC 0-2 /HPF Urine Squamous Epithelial Cells 5-10 /HPF Urine Crystals NONE /LPF Urine Bacteria FEW H /HPF Urine Casts NONE /LPF Urine Mucus SMALL H /LPF Urine Culture Indicated NO My Orders Orders - AKBAR EVANS MD Ct Head Wo-R/O Stroke (11/09/16 22:11) Saline Lock/Iv-Start (11/09/16 22:11) Cbc With Automated Diff (11/09/16 22:11) Comprehensive Metabolic Panel (11/09/16 22:11) Magnesium (11/09/16 22:11) Troponin I (11/09/16 22:11) Ua Culture If Indicated (11/09/16 22:11) Chest Pa/Lat (2 View) (11/09/16 22:11) Ekg Tracing (11/09/16 22:11) Monitor-Rhythm Ecg Trace Only (11/09/16 22:11) Vital Signs/I&O Vital Sign - Last 12Hours 11/09/16 11/09/16 20:13 23:58 Temp 98.4 98.4 Pulse 96 87 Resp 20 18 B/P (MAP) 105/72 Pulse Ox 93 93 O2 Delivery Room Air Room Air Blood Pressure Mean: 83 ECG Initial ECG Impression Date: Nov 09, 2016 Initial ECG Impression Time: 22:24 Initial ECG Rate: 70 Initial ECG Rhythm: Normal Sinus Initial ECG Intervals: Normal Initial ECG Impression: Normal Comment Normal sinus rhythm with no ST elevation or depression. No abnormal intervals or axis deviation. Diagnostic Imaging Diagonstic Imaging: Xray Plain Films/CT/US/NM/MRI: chest Comments Chest x-ray viewed by me. Report not yet available. No acute abnormalities appreciated. Diagonstic Imaging: CT Plain Films/CT/US/NM/MRI: head Comments CT head viewed by me. [employer] report reviewed. No acute abnormalities appreciated. Departure Impression Impression: Primary Impression: Lightheadedness Additional Impressions: Disequilibrium Hyperglycemia Disposition: 01 HOME, SELF-CARE Condition: Improved Departure-Patient Inst. Referrals: [facility] (PCP) Primary Care Physician SOTERO HUIZAR APRN (Family) Primary Care Physician Patient Instructions: NO INSTRUCTIONS GIVEN Add. Discharge Instructions: Drink plenty of clear liquids. Eat a low sugar, low carbohydrate diet. Your blood sugar is 325 tonight. Please monitor your blood sugars closely at home. Your potassium is also slightly low. Take an extra dose of potassium this evening. Follow-up with your primary care provider soon as possible. Return to the emergency room if symptoms worsen. Continue with your aspirin and Plavix. Few smoke, discontinue smoking as soon as possible. Seek assistance from your primary care provider if you need help quitting. All discharge instructions reviewed with patient and/or family. Voiced understanding. Copy Copies To 1: EHSAN CARABALLO JOSHUA T MD Nov 09, 2016 10:30 pm
[2016-11-09 22:36] LABS: TROPONIN I < 0.30 NG/ML (<0.30)
[2016-11-09 23:15] LABS: BILIRUBIN,URINE NEGATIVE (NEGATIVE); KETONES,URINE NEGATIVE (NEGATIVE); LEUKOCYTE ESTERASE ,URINE 1+ (NEGATIVE); NITRITE,URINE NEGATIVE (NEGATIVE); PH,URINE 5 (5-9); PROTEIN,URINE 1+ (NEGATIVE); UROBILINOGEN,URINE NORMAL (NORMAL)
[2016-11-09 23:22] LABS: WBC,URINE 0-2 /HPF
[2016-11-09 23:58] VITALS: BP 108/83
--- NOTE | 2016-11-10 07:22 | Diagnostic Imaging Report ---
INDICATION: CVA. Comparison with 05/22/2015. FINDINGS: Examination of the chest in the PA and lateral projections fails to reveal evidence of active parenchymal pathology or pleural effusion. The cardiac silhouette is normal. IMPRESSION: Negative chest. No significant change since previous exam. Dictated by: Dictated on workstation # [id number]
--- NOTE | 2016-11-10 07:44 | Diagnostic Imaging Report ---
INDICATION: Dizziness. Headache. COMPARISON: 05/23/2015. FINDINGS: The ventricles and cortical gyral pattern are normal. There is no intracranial hemorrhage. No mass effect. No extra axial fluid collection. Basal cisterns are clear. Mastoid air cells and paranasal sinuses are clear. IMPRESSION: Negative CT head without contrast. No significant change since previous exam. These findings are concordant with the preliminary report. Dictated by: Dictated on workstation # [id number]
== END 2016-11-09 23:58 | disposition home or self-care (01) ==
LOC: EDUNIT# 20:07 → ER 20:08
DX: R42 Dizziness and giddiness (principal); E87.8 Other disorders of electrolyte and fluid balance, not elsewhere classified; E11.65 Type 2 diabetes mellitus with hyperglycemia; I10 Essential (primary) hypertension; K21.9 Gastro-esophageal reflux disease without esophagitis; F41.9 Anxiety disorder, unspecified; M19.90 Unspecified osteoarthritis, unspecified site; F17.210 Nicotine dependence, cigarettes, uncomplicated; Z80.0 Family history of malignant neoplasm of digestive organs; Z82.49 Family history of ischemic heart disease and other diseases of the circulatory system; Z86.73 Personal history of transient ischemic attack (TIA), and cerebral infarction without residual deficits; Z87.19 Personal history of other diseases of the digestive system; Z87.448 Personal history of other diseases of urinary system; Z79.82 Long term (current) use of aspirin; Z87.59 Personal history of other complications of pregnancy, childbirth and the puerperium; Z98.51 Tubal ligation status
CPT/HCPCS: 36415; 70450; 71020; 80053; 81000; 83735; 84484; 85025; 93005; 93041

== ENCOUNTER 2016-12-20 15:01 | Outpatient (RCR) | payer MEDICARE, MEDICAID ==
[2016-12-20 15:23] LABS: BASOPHILS # (AUTO) 0.1 10^3/uL (0.0-0.1); BASOPHILS % (AUTO) 1 % (0-10); EOSINOPHILS # (AUTO) 0.1 10^3/uL (0.0-0.3); EOSINOPHILS % (AUTO) 1 % (0-10); HEMATOCRIT 46 % (35-52); HEMOGLOBIN 14.7 G/DL (11.5-16.0); LYMPHOCYTES # (AUTO) 2.9 X 10^3 (1.0-4.0); LYMPHOCYTES % (AUTO) 28 % (12-44); MEAN CORPUSCULAR HEMOGLOBIN 31 PG (25-34); MEAN CORPUSCULAR HGB CONC 32 G/DL (32-36); MEAN CORPUSCULAR VOLUME 97 FL (80-99); MEAN PLATELET VOLUME 10.5 FL (7.4-10.4); MONOCYTES # (AUTO) 0.7 X 10^3 (0.0-1.0); MONOCYTES % (AUTO) 7 % (0-12); NEUTROPHILS # (AUTO) 6.6 X 10^3 (1.8-7.8); NEUTROPHILS % (AUTO) 64 % (42-75); PLATELET COUNT 336 10^3/uL (130-400); RED BLOOD COUNT 4.74 10^6/uL (4.35-5.85); RED CELL DISTRIBUTION WIDTH 14.2 % (10.0-14.5); WHITE BLOOD COUNT 10.4 10^3/uL (4.3-11.0)
[2016-12-20 15:41] LABS: ALANINE AMINOTRANSFERASE 40 U/L (0-55); ALKALINE PHOSPHATASE 103 U/L (40-136); BILIRUBIN,TOTAL 0.7 MG/DL (0.1-1.0); BUN/CREATININE RATIO 14; CALCIUM 9.6 MG/DL (8.5-10.1); CARBON DIOXIDE 29 MMOL/L (21-32); CHLORIDE 97 MMOL/L (98-107); GFR ESTIMATED > 60; GLUCOSE 244 MG/DL (70-105); POTASSIUM 3.7 MMOL/L (3.6-5.0); SODIUM 139 MMOL/L (135-145); TOTAL PROTEIN 7.7 GM/DL (6.4-8.2)
== END 2017-03-20 | disposition home or self-care (01) ==
LOC: ONC 15:01
PROVIDERS: ATTEND Internal Medicine Hematology & Oncology
DX: D47.3 Essential (hemorrhagic) thrombocythemia (principal); D72.829 Elevated white blood cell count, unspecified; I69.992 Facial weakness following unspecified cerebrovascular disease; I69.998 Other sequelae following unspecified cerebrovascular disease; M62.81 Muscle weakness (generalized); I10 Essential (primary) hypertension; R00.0 Tachycardia, unspecified; E78.5 Hyperlipidemia, unspecified; Z79.899 Other long term (current) drug therapy
CPT/HCPCS: 36415; 80053; 85025; 99213

== ENCOUNTER 2017-03-12 12:29 | Emergency (ER) | payer MEDICARE, MEDICAID ==
[~2017-03-12] VITALS: Ht 160 cm; Wt 93.8 kg
--- OUTSIDE RECORDS SUMMARY | 2017-03-12 12:35 | XMS REPORT | Clinical Summary ---
Author Author [facility] Organization [facility] Address Unknown Phone Unavailable Care Team Providers Care Land Surveyor Name Role Phone PCP Unavailable Source Comments Some departments are not documenting in the electronic medical record. If you do not see the information that you expected, contact Release of Information in the Health Information Management department at [phone] for further assistance in locating additional records.[facility] Allergies Not on File Current Medications Not [...] 09/14/1999 BREAST CANCER SCREENING 2009 INFLUENZA VACCINE 10/19/2016 Results Not on filefrom Last 3 Months
--- OUTSIDE RECORDS SUMMARY | 2017-03-12 12:36 | XMS REPORT ---
Author Author HUIZARMICHAELSOTERO Organization [facility] Address [address] [place] [address] Care Team Providers Care Pocket Closer Name Role Phone HUIZARMICHAEL CoxELE Unavailable PROBLEMS Type Condition ICD9-CM Code [id number] Code Onset Dates Condition Status SNOMED Code Problem Hyperlipidemia, unspecified hyperlipidemia type E78.5 Active 12143550 Problem Essential hypertension I10 Active 61843223 Problem Gastroesophageal reflux disease, esophagitis presence not specified K21.9 Active 109275066 Problem Seasonal allergic rhinitis due to pollen J30.1 Active 39281686 Problem Tobacco abuse counseling Z71.6 Active 835237361 Problem 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 Active 62189618 Problem Other complicated headache syndrome G44.59 Active 749034486 Problem Tobacco abuse Z72.0 Active 435217828 Problem Other chronic pain G89.29 Active 04085992 Problem Vitamin D deficiency E55.9 Active 90680247 Problem Major depressive disorder, recurrent episode, moderate F33.1 Active 400750449 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 45139879 Problem Irregular heart rhythm I49.9 Active 288390893 Problem Generalized anxiety disorder F41.1 Active 73041950 Problem History of CVA with residual deficit I69.30 Active 345018567 ALLERGIES No Information SOCIAL HISTORY Never Assessed PLAN OF CARE VITAL SIGNS MEDICATIONS Medication Instructions Dosage Frequency Start Date End Date Duration Status Hydrocodone-Acetaminophen 10-325 MG Orally every 6 hrs 1 tablet as needed 6h 28 days Active Senna S 8.6-50 MG Orally twice a day 1 tablet 12h 30 days Active Xanax 1 MG Orally 4 times a day 1 tablet 6h 28 days Active RESULTS No Results PROCEDURES No Known procedures IMMUNIZATIONS No Known Immunizations MEDICAL (GENERAL) HISTORY Type Description Date Medical History diabetes mellitus Medical History hyperlipidemia Medical History hypertension Medical History stroke Medical History Anxiety disorder Medical History Panic attacks Medical History Blood Clotting Disorder- Dr Galvan at [facility] Medical History Possible Anemia (currently under work up) - Dr Galvan [facility] Medical History irregular heart beat-sees dr. hassan Medical History history of pancreatitis Medical History gerd Surgical History tubal ligation Surgical History section Surgical History cholecystectomy Surgical History Toe Nail Removal x2 Hospitalization History Brain Stem Strokes x5. Has been hospitalized at then transfered to [place]. 2015 Hospitalization History Child
--- OUTSIDE RECORDS SUMMARY | 2017-03-12 12:36 | XMS REPORT ---
Author Author GAYE SOTERO Organization [facility] [place] Address [address] [place] [address] Care Team Providers Care Manager International Name Role Phone HUIZARSOTERO Cox Unavailable PROBLEMS Type Condition ICD9-CM Code [id number] Code Onset Dates Condition Status SNOMED Code Problem Hyperlipidemia, unspecified hyperlipidemia type E78.5 Active 74399394 Problem Essential hypertension I10 Active 35835233 Problem Gastroesophageal reflux disease, esophagitis presence not specified K21.9 Active 900524054 Problem Seasonal allergic rhinitis due to pollen J30.1 Active 68169633 Problem Tobacco abuse counseling Z71.6 Active 760228596 Problem 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 Active 25377644 Problem Other complicated headache syndrome G44.59 Active 499546342 Problem Tobacco abuse Z72.0 Active 845659765 Problem Other chronic pain G89.29 Active 93126172 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 42115101 Problem Vitamin D deficiency E55.9 Active 09373555 Problem Major depressive disorder, recurrent episode, moderate F33.1 Active 668451898 Problem 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 Active 454245303 Problem Irregular heart rhythm I49.9 Active 605846223 Problem Generalized anxiety disorder F41.1 Active 02969900 Problem History of CVA with residual deficit I69.30 Active 691908831 ALLERGIES No Information SOCIAL HISTORY Never Assessed PLAN OF CARE VITAL SIGNS MEDICATIONS No Known Medications RESULTS No Results PROCEDURES No Known procedures IMMUNIZATIONS No Known Immunizations MEDICAL (GENERAL) HISTORY Type Description Date Medical History diabetes mellitus Medical History hyperlipidemia Medical History hypertension Medical History stroke Medical History Anxiety disorder Medical History Panic attacks Medical History Blood Clotting Disorder- Dr Galvan at [facility] Medical History Possible Anemia (currently under work up) - Dr Galvan [facility] Medical History irregular heart beat-sees dr. hassan Medical History history of pancreatitis Medical History gerd Surgical History tubal ligation Surgical History section Surgical History cholecystectomy Surgical History Toe Nail Removal x2 Hospitalization History Brain Stem Strokes x5. Has been hospitalized at then transfered to [place]. 2015 Hospitalization History Child
--- OUTSIDE RECORDS SUMMARY | 2017-03-12 12:36 | XMS REPORT ---
Author Author GAYEMICHAELSOTERO Organization [facility] Address [address] [place] [address] Care Team Providers Care Artillery Or Naval Gunfire Observer Name Role Phone HUIZARSOTERO Cox Unavailable PROBLEMS Type Condition ICD9-CM Code [id number] Code Onset Dates Condition Status SNOMED Code Problem Hyperlipidemia, unspecified hyperlipidemia type E78.5 Active 58460327 Problem Essential hypertension I10 Active 72430229 Problem Gastroesophageal reflux disease, esophagitis presence not specified K21.9 Active 889859108 Problem Seasonal allergic rhinitis due to pollen J30.1 Active 24648292 Problem Tobacco abuse counseling Z71.6 Active 610790589 Problem 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 Active 83753046 Problem Other complicated headache syndrome G44.59 Active 313009921 Problem Tobacco abuse Z72.0 Active 710453424 Problem Other chronic pain G89.29 Active 73267048 Problem Vitamin D deficiency E55.9 Active 08680378 Problem Major depressive disorder, recurrent episode, moderate F33.1 Active 561839699 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 85967328 Problem Irregular heart rhythm I49.9 Active 704487222 Problem Generalized anxiety disorder F41.1 Active 79097304 Problem History of CVA with residual deficit I69.30 Active 359893000 ALLERGIES No Known Allergies SOCIAL HISTORY No smoking Hx information available PLAN OF CARE VITAL SIGNS MEDICATIONS Medication Instructions Dosage Frequency Start Date End Date Duration Status Xanax 1 MG Orally 4 times a day 1 tablet 6h 28 days Active Hydrocodone-Acetaminophen 10-325 MG Orally every 6 hrs 1 tablet as needed 6h 28 days Active RESULTS No Results PROCEDURES No Known procedures IMMUNIZATIONS No Known Immunizations
--- OUTSIDE RECORDS SUMMARY | 2017-03-12 12:36 | XMS REPORT ---
Author Author GAYESOTERO Organization [facility] Address [address] [place] [address] Care Team Providers Care Hat Lining Paster Name Role Phone HUIZARSOTERO Cox Unavailable PROBLEMS Type Condition ICD9-CM Code [id number] Code Onset Dates Condition Status SNOMED Code Problem Hyperlipidemia, unspecified hyperlipidemia type E78.5 Active 96727360 Problem Essential hypertension I10 Active 99652371 Problem Gastroesophageal reflux disease, esophagitis presence not specified K21.9 Active 958075384 Problem Seasonal allergic rhinitis due to pollen J30.1 Active 12466218 Problem Tobacco abuse counseling Z71.6 Active 750449280 Problem Other complicated headache syndrome G44.59 Active 379312039 Problem 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 Active 65722749 Problem Tobacco abuse Z72.0 Active 597127422 Problem Other chronic pain G89.29 Active 45478977 Problem Major depressive disorder, recurrent episode, moderate F33.1 Active 038942188 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 31502055 Problem Vitamin D deficiency E55.9 Active 43331381 Problem Irregular heart rhythm I49.9 Active 138145685 Problem Generalized anxiety disorder F41.1 Active 43826091 Problem History of CVA with residual deficit I69.30 Active 015899678 ALLERGIES Unknown Allergies SOCIAL HISTORY No smoking Hx information available PLAN OF CARE VITAL SIGNS MEDICATIONS Medication Instructions Dosage Frequency Start Date End Date Duration Status Ergocalciferol [address]282 UNIT Orally once weekly 1 capsule Mar, Jun, 90 days Active RESULTS No Results PROCEDURES No Known procedures IMMUNIZATIONS No Known Immunizations
--- OUTSIDE RECORDS SUMMARY | 2017-03-12 12:37 | XMS REPORT ---
Author Author GAYE SOTERO Organization [facility] Address [address] [place] [address] Care Team Providers Care Humanities Division Chair Name Role Phone HUIZARMICHAEL CoxELE Unavailable PROBLEMS Type Condition ICD9-CM Code AMQ79-QJ Code Onset Dates Condition Status SNOMED Code Problem Hyperlipidemia, unspecified hyperlipidemia type E78.5 Active 46947304 Problem Essential hypertension I10 Active 01457759 Problem Gastroesophageal reflux disease, esophagitis presence not specified K21.9 Active 940218083 Problem Seasonal allergic rhinitis due to pollen J30.1 Active 42051432 Problem Tobacco abuse counseling Z71.6 Active 788083145 Problem 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 Active 60255580 Problem Other complicated headache syndrome G44.59 Active 353366381 Problem Tobacco abuse Z72.0 Active 668834709 Problem Other chronic pain G89.29 Active 69719732 Problem Vitamin D deficiency E55.9 Active 68059531 Problem Major depressive disorder, recurrent episode, moderate F33.1 Active 926954547 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
--- OUTSIDE RECORDS SUMMARY | 2017-03-12 12:37 | XMS REPORT ---
Author Author HUIZARSOTERO Organization [facility] Address [address] [place] [address] Care Team Providers Care Senior Asic Engineer Name Role Phone HUIZARMICHAEL CoxELE Unavailable PROBLEMS Type Condition ICD9-CM Code [id number] Code Onset Dates Condition Status SNOMED Code Problem Hyperlipidemia, unspecified hyperlipidemia type E78.5 Active 28875808 Problem Essential hypertension I10 Active 40629304 Problem Gastroesophageal reflux disease, esophagitis presence not specified K21.9 Active 607895365 Problem Seasonal allergic rhinitis due to pollen J30.1 Active 23800562 Problem Tobacco abuse counseling Z71.6 Active 104251430 Problem 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 Active 53727927 Problem Other complicated headache syndrome G44.59 Active 410120586 Problem Tobacco abuse Z72.0 Active 896490156 Problem Other chronic pain G89.29 Active 10049707 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 23193515 Problem Vitamin D deficiency E55.9 Active 57426660 Problem Major depressive disorder, recurrent episode, moderate F33.1 Active 428842470 Problem 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 Active 124134837 Problem Irregular heart rhythm I49.9 Active 191624421 Problem Generalized anxiety disorder F41.1 Active 76581688 Problem History of CVA with residual deficit I69.30 Active 830368930 ALLERGIES No Information SOCIAL HISTORY Never Assessed PLAN OF CARE VITAL SIGNS MEDICATIONS Medication Instructions Dosage Frequency Start Date End Date Duration Status Hydrocodone-Acetaminophen 10-325 MG Orally every 6 hrs 1 tablet as needed 6h July, 28 days Active Xanax 1 MG Orally 4 times a day 1 tablet 6h 28 days Active RESULTS No Results PROCEDURES No Known procedures IMMUNIZATIONS No Known Immunizations MEDICAL (GENERAL) HISTORY Type Description Date Medical History diabetes mellitus Medical History hyperlipidemia Medical History hypertension Medical History stroke Medical History Anxiety disorder Medical History Panic attacks Medical History Blood Clotting Disorder- Dr Galvan at [facility] Medical History Possible Anemia (currently under work up) - Dr Galvan [facility] Medical History irregular heart beat-sees dr. hassan Medical History history of pancreatitis Medical History gerd Surgical History tubal ligation Surgical History section Surgical History cholecystectomy Surgical History Toe Nail Removal x2 Hospitalization History Brain Stem Strokes x5. Has been hospitalized at then transfered to [place]. 2015 Hospitalization History Child
--- OUTSIDE RECORDS SUMMARY | 2017-03-12 12:37 | XMS REPORT ---
Author Author SOTERO HUIZAR Organization [facility] Address [address] [place] [address] Care Team Providers Care Metal Bonding Crib Attendant Name Role Phone GAYE SOTERO Unavailable PROBLEMS Type Condition ICD9-CM Code [id number] Code Onset Dates Condition Status SNOMED Code Problem Gastroesophageal reflux disease, esophagitis presence not specified K21.9 Active 904265241 Problem History of CVA with residual deficit I69.30 Active 368056409 Problem 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 Active 67968506 Problem Seasonal allergic rhinitis due to pollen J30.1 Active 30897621 Problem Tobacco abuse Z72.0 Active 437037496 Problem Irregular heart rhythm I49.9 Active 011413021 Problem Essential hypertension I10 Active 28073702 Problem Tobacco abuse counseling Z71.6 Active 061518015 Problem Other chronic pain G89.29 Active 19801010 Problem Generalized anxiety disorder F41.1 Active 44793370 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 55470710 Problem Vitamin D deficiency E55.9 Active 67389982 Problem Other complicated headache syndrome G44.59 Active 208695655 Problem Major depressive disorder, recurrent episode, moderate F33.1 Active 479335922 Problem Hyperlipidemia, unspecified hyperlipidemia type E78.5 Active 62569646 ALLERGIES Substance Reaction Event Type Date Status Penicillin G Sodium Unknown Drug Allergy Feb, Active Erythromycin Base Unknown Drug Allergy Feb, Active Codeine Unknown Drug Allergy Feb, Active SOCIAL HISTORY No smoking Hx information available PLAN OF CARE Activity Details Follow Up 3 Months Reason:CHM VITAL SIGNS Height 62 in 2016-03-16 Weight 210.6 lbs 2016-03-16 Temperature 97.1 degrees Fahrenheit 2016-03-16 Heart Rate 84 bpm 2016-03-16 Respiratory Rate 20 2016-03-16 BMI 38.52 kg/m2 2016-03-16 Blood pressure systolic 122 mmHg 2016-03-16 Blood pressure diastolic 78 mmHg 2016-03-16 MEDICATIONS Medication Instructions Dosage Frequency Start Date End Date Duration Status Hydrochlorothiazide 25 MG Orally Once a day 1 tablet 24h Active Test strips 8h Active Pen Van Meter 32G X 4 MM as directed 24h Jan, Active Bath/Shower Seat 1 please provide one adult shower seat for patient use one time shower/bath seat for bathing Dec, Active ASA 1 tab Active Metoprolol Tartrate 25 MG Orally Twice a day 1 tablet with food 12h Active Walker - as directed Jan, Active Diltiazem HCl ER 120 MG Orally Once a day 1 capsule on an empty stomach in the morning 24h 90 Active Omeprazole 40 MG Orally Once a day 1 capsule 24h Active One Touch/One Touch II Starter 1 glucometer subcutaneously 3 times a day to take blood sugars daily Dispense as insurance allows 8h Sep, Active OneTouch Delica Lancets 33G 33 TEST BLOOD SUGAR THREE TIMES A DAY E11.8 30 Active Xanax 1 MG Orally Three times a day 1 tablet 8h 28 days Active Potassium Chloride 10 MEQ Orally Twice a day 1 tablet with food 12h Active Levemir Flexpen 100 UNIT/ML Subcutaneous at hs 25 units Active Senna S 8.6-50 MG Orally Once a day 1 tablet in the evening as needed 24h Active Atorvastatin Calcium 80 MG Orally Once a day 1 tablet 24h Active Plavix 75 MG Orally Once a day 1 tablet 24h 90 Active Hydrocodone-Acetaminophen 10-325 MG Orally every 6 hrs 1 tablet as needed 6h 28 days Active Lancets - Active MetFORMIN HCl ER 750 MG Orally twice a day 1 tablet with evening meal 12h Active Naproxen 500 MG Orally Twice a day 1 tablet 12h Active RESULTS Name Result Date Reference Range MICROALBUMIN, URINE (IN HOUSE) 2016-03-16 MICROALBUMIN normal Lot # [id number] Exp date 04/20/2017 Clarity slightly cloudy Color yellow ALB 30 CRE 300 A:C (IN HOUSE) <30 Control Control Lot # Exp date THYROID ANALYZER 2016-03-16 TSH 1.490 0.450-4.500 MAGNESIUM, SERUM 2016-03-16 Magnesium, Serum 1.8 1.6-2.3 CBC 2016-03-16 WBC 11.6 3.4-10.8 RBC 5.02 3.77-5.28 Hemoglobin 15.1 11.1-15.9 Hematocrit 46.4 34.0-46.6 MCV 92 79-97 MCH 30.1 26.6-33.0 MCHC 32.5 31.5-35.7 RDW 14.6 12.3-15.4 Platelets 404 150-379 Neutrophils 62 Lymphs 28 Monocytes 7 Eos 1 Basos 1 Neutrophils (Absolute) 7.3 1.4-7.0 Lymphs (Absolute) 3.3 0.7-3.1 Monocytes(Absolute) 0.8 0.1-0.9 Eos (Absolute) 0.2 0.0-0.4 Baso (Absolute) 0.1 0.0-0.2 Immature Granulocytes 1 Immature Grans (Abs) 0.1 0.0-0.1 VITAMIN D, 25-H 2016-03-16 Vitamin D, 25-Hydroxy 7.8 30.0-100.0 LIPID PANEL 2016-03-16 Cholesterol, Total 123 100-199 Triglycerides 376 0-149 HDL Cholesterol 24 >39 VLDL Cholesterol Hardik 75 5-40 LDL Cholesterol Calc 24 0-99 CMP 2016-03-16 Glucose, Serum 203 65-99 BUN 10 6-24 Creatinine, Serum 0.51 0.57-1.00 eGFR If NonAfricn Am 116 >59 eGFR If Africn Am 133 >59 BUN/Creatinine Ratio 20 9-23 Sodium, Serum 141 134-144 Potassium, Serum 4.2 3.5-5.2 Chloride, Serum 91 96-106 Carbon Dioxide, Total 27 18-29 Calcium, Serum 9.8 8.7-10.2 Protein, Total, Serum 7.5 6.0-8.5 Albumin, Serum 4.6 3.5-5.5 Globulin, Total 2.9 1.5-4.5 A/G Ratio 1.6 1.1-2.5 Bilirubin, Total 0.6 0.0-1.2 Alkaline Phosphatase, S 105 39-117 AST (SGOT) 43 0-40 ALT (SGPT) 32 0-32 PROCEDURES Procedure Date Ordered Related Diagnosis Body Site LAB NOT BILLED BY [facility] Mar 16, 2016 MICROALBUMIN, SEMIQUANT Mar 16, 2016 Office Visit, Est Pt., Level 4 Mar 16, 2016 VENIPUNCT, ROUTINE* Mar 16, 2016 IMMUNIZATIONS No Known Immunizations
--- OUTSIDE RECORDS SUMMARY | 2017-03-12 12:37 | XMS REPORT ---
Author Author GAYEMICHAELSOTERO Organization [facility] Address [address] [place] [address] Care Team Providers Care Camp Director Name Role Phone HUIZARSOTERO Cox Unavailable PROBLEMS Type Condition ICD9-CM Code [id number] Code Onset Dates Condition Status SNOMED Code Problem Gastroesophageal reflux disease, esophagitis presence not specified K21.9 Active 768387231 Problem Other complicated headache syndrome G44.59 Active 472539228 Problem Essential hypertension I10 Active 80239137 Problem Simple chronic bronchitis J41.0 Active 70636111 Problem Seasonal allergic rhinitis due to pollen J30.1 Active 10589542 Problem Other chronic pain G89.29 Active 27708675 Problem 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 Active 76947022 Problem Tobacco abuse counseling Z71.6 Active 902646270 Problem Tobacco abuse Z72.0 Active 652533984 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 73243274 Problem 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 Active 783473791 Problem Major depressive disorder, recurrent episode, moderate F33.1 Active 237171600 Problem Irregular heart rhythm I49.9 Active 518408029 Problem Generalized anxiety disorder F41.1 Active 83968777 Problem History of CVA with residual deficit I69.30 Active 454126729 Problem Vitamin D deficiency E55.9 Active 84064604 Problem Hyperlipidemia, unspecified hyperlipidemia type E78.5 Active 31903444 ALLERGIES No Information SOCIAL HISTORY Never Assessed PLAN OF CARE VITAL SIGNS MEDICATIONS Unknown Medications RESULTS No Results PROCEDURES No Known procedures IMMUNIZATIONS No Known Immunizations MEDICAL (GENERAL) HISTORY Type Description Date Medical History diabetes mellitus Medical History hyperlipidemia Medical History hypertension Medical History stroke Medical History Anxiety disorder Medical History Panic attacks Medical History Blood Clotting Disorder- Dr Galvan at [facility] Medical History Possible Anemia (currently under work up) - Dr Galvan [facility] Medical History irregular heart beat-sees dr. hassan Medical History history of pancreatitis Medical History gerd Surgical History tubal ligation Surgical History section Surgical History cholecystectomy Surgical History Toe Nail Removal x2 Hospitalization History Brain Stem Strokes x5. Has been hospitalized at then transfered to [place]. 2015 Hospitalization History Child
--- OUTSIDE RECORDS SUMMARY | 2017-03-12 12:37 | XMS REPORT ---
Author Author SOTERO HUIZAR Organization [facility] Address [address] [place] [address] Care Team Providers Care Turkey Pinner Name Role Phone GAYE SOTERO Unavailable PROBLEMS Type Condition ICD9-CM Code [id number] Code Onset Dates Condition Status SNOMED Code Problem Gastroesophageal reflux disease, esophagitis presence not specified K21.9 Active 422468715 Problem Other complicated headache syndrome G44.59 Active 297775401 Problem Essential hypertension I10 Active 76442270 Problem Simple chronic bronchitis J41.0 Active 61591208 Problem Seasonal allergic rhinitis due to pollen J30.1 Active 90162596 Problem Other chronic pain G89.29 Active 49761982 Problem 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 Active 00294698 Problem Tobacco abuse counseling Z71.6 Active 436039973 Problem Tobacco abuse Z72.0 Active 125800504 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 13122563 Problem 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 Active 286287756 Problem Major depressive disorder, recurrent episode, moderate F33.1 Active 930126510 Problem Irregular heart rhythm I49.9 Active 828008691 Problem Generalized anxiety disorder F41.1 Active 27364919 Problem History of CVA with residual deficit I69.30 Active 602585106 Problem Vitamin D deficiency E55.9 Active 57593579 Problem Hyperlipidemia, unspecified hyperlipidemia type E78.5 Active 54524353 ALLERGIES No Information SOCIAL HISTORY Never Assessed PLAN OF CARE VITAL SIGNS MEDICATIONS Medication Instructions Dosage Frequency Start Date End Date Duration Status Zofran 8 MG Orally twice a day 1 tablet 12h Aug, 7 days Active RESULTS No Results PROCEDURES No Known procedures IMMUNIZATIONS No Known Immunizations MEDICAL (GENERAL) HISTORY Type Description Date Medical History diabetes mellitus Medical History hyperlipidemia Medical History hypertension Medical History stroke Medical History Anxiety disorder Medical History Panic attacks Medical History Blood Clotting Disorder- Dr Galvan at [facility] Medical History Possible Anemia (currently under work up) - Dr Galvan [facility] Medical History irregular heart beat-sees dr. hassan Medical History history of pancreatitis Medical History gerd Surgical History tubal ligation Surgical History section Surgical History cholecystectomy Surgical History Toe Nail Removal x2 Hospitalization History Brain Stem Strokes x5. Has been hospitalized at then transfered to [place]. 2015 Hospitalization History Child
--- OUTSIDE RECORDS SUMMARY | 2017-03-12 12:37 | XMS REPORT ---
Author Author HUIZARSOTERO Cox Organization [facility] Address [address] [place] [address] Care Team Providers Care Cafe Lead Name Role Phone HUIZARSOTERO Cox Unavailable PROBLEMS Type Condition ICD9-CM Code [id number]-DS Code Onset Dates Condition Status SNOMED Code Problem Gastroesophageal reflux disease, esophagitis presence not specified K21.9 Active 260391840 Problem History of CVA with residual deficit I69.30 Active 016672223 Problem 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 Active 72993823 Problem Seasonal allergic rhinitis due to pollen J30.1 Active 54127247 Problem Tobacco abuse Z72.0 Active 898228242 Problem Irregular heart rhythm I49.9 Active 152073429 Problem Essential hypertension I10 Active 74173334 Problem Tobacco abuse counseling Z71.6 Active 451816072 Problem Other chronic pain G89.29 Active 76354892 Problem Generalized anxiety disorder F41.1 Active 15698366 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 30579370 Problem Vitamin D deficiency E55.9 Active 26983100 Problem Other complicated headache syndrome G44.59 Active 831549048 Problem Major depressive disorder, recurrent episode, moderate F33.1 Active 532867305 Problem Hyperlipidemia, unspecified hyperlipidemia type E78.5 Active 83828266 ALLERGIES Unknown Allergies SOCIAL HISTORY No smoking Hx information available PLAN OF CARE VITAL SIGNS MEDICATIONS Medication Instructions Dosage Frequency Start Date End Date Duration Status Fenofibrate 54 MG Orally Once a day 1 tablet with a meal 24h Feb, 90 days Active Cholecalciferol 65200 UNIT Orally once weekly 1 capsule Feb, May, 90 days Active RESULTS No Results PROCEDURES No Known procedures IMMUNIZATIONS No Known Immunizations
--- OUTSIDE RECORDS SUMMARY | 2017-03-12 12:37 | XMS REPORT ---
Author Author HUIZARSOTERO Organization [facility] Address [address] [place] [address] Care Team Providers Care Furniture Arranger Name Role Phone HUIZARMICHAEL CoxELE Unavailable PROBLEMS Type Condition ICD9-CM Code [id number] Code Onset Dates Condition Status SNOMED Code Problem Hyperlipidemia, unspecified hyperlipidemia type E78.5 Active 39993476 Problem Essential hypertension I10 Active 93587979 Problem Gastroesophageal reflux disease, esophagitis presence not specified K21.9 Active 280369269 Problem Seasonal allergic rhinitis due to pollen J30.1 Active 71214141 Problem Tobacco abuse counseling Z71.6 Active 623433279 Problem 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 Active 19591479 Problem Other complicated headache syndrome G44.59 Active 298436686 Problem Tobacco abuse Z72.0 Active 121915268 Problem Other chronic pain G89.29 Active 77886724 Problem Vitamin D deficiency E55.9 Active 49661099 Problem Major depressive disorder, recurrent episode, moderate F33.1 Active 877787119 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 86768407 Problem Irregular heart rhythm I49.9 Active 626291736 Problem Generalized anxiety disorder F41.1 Active 67055851 Problem History of CVA with residual deficit I69.30 Active 197797095 ALLERGIES No Information SOCIAL HISTORY Never Assessed PLAN OF CARE VITAL SIGNS MEDICATIONS Medication Instructions Dosage Frequency Start Date End Date Duration Status Nicotine 21 MG/24HR Transdermal Once a day, DO NOT SMOKE WITH PATCH ON 1 patch to skin May, 30 day(s) Active RESULTS No Results PROCEDURES No Known procedures IMMUNIZATIONS No Known Immunizations MEDICAL (GENERAL) HISTORY Type Description Date Medical History diabetes mellitus Medical History hyperlipidemia Medical History hypertension Medical History stroke Medical History Anxiety disorder Medical History Panic attacks Medical History Blood Clotting Disorder- Dr Galvan at [facility] Medical History Possible Anemia (currently under work up) - Dr Galvan [facility] Medical History irregular heart beat-sees dr. hassan Medical History history of pancreatitis Medical History gerd Surgical History tubal ligation Surgical History section Surgical History cholecystectomy Surgical History Toe Nail Removal x2 Hospitalization History Brain Stem Strokes x5. Has been hospitalized at then transfered to [place]. 2015 Hospitalization History Child
--- OUTSIDE RECORDS SUMMARY | 2017-03-12 12:38 | XMS REPORT ---
Author Author GAYEMICHAELSOTERO Organization [facility] Address [address] [place] [address] Care Team Providers Care Director Of Enterprise Architecture Name Role Phone HUIZARSOTERO Cox Unavailable PROBLEMS Type Condition ICD9-CM Code PMR26-TB Code Onset Dates Condition Status SNOMED Code Problem Gastroesophageal reflux disease, esophagitis presence not specified K21.9 Active 456261234 Problem History of CVA with residual deficit I69.30 Active 104340474 Problem 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 Active 14023952 Problem Seasonal allergic rhinitis due to pollen J30.1 Active 47623608 Problem Tobacco abuse Z72.0 Active 998335679 Problem Irregular heart rhythm I49.9 Active 341466304 Problem Essential hypertension I10 Active 66940066 Problem Tobacco abuse counseling Z71.6 Active 978535127 Problem Other chronic pain G89.29 Active 80292418 Problem Generalized anxiety disorder F41.1 Active 33430145 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 19736144 Problem Vitamin D deficiency E55.9 Active 84494390 Problem Other complicated headache syndrome G44.59 Active 545815535 Problem Major depressive disorder, recurrent episode, moderate F33.1 Active 653506196 Problem Hyperlipidemia, unspecified hyperlipidemia type E78.5 Active 29952434 ALLERGIES Unknown Allergies SOCIAL HISTORY No smoking Hx information available PLAN OF CARE VITAL SIGNS MEDICATIONS Medication Instructions Dosage Frequency Start Date End Date Duration Status Hydrocodone-Acetaminophen 10-325 MG Orally every 6 hrs 1 tablet as needed 6h 28 days Active Xanax 1 MG Orally Three times a day 1 tablet 8h 28 days Active RESULTS No Results PROCEDURES No Known procedures IMMUNIZATIONS No Known Immunizations
--- OUTSIDE RECORDS SUMMARY | 2017-03-12 12:38 | XMS REPORT ---
Author Author HUIZARSOTERO Cox Organization [facility] Address [address] [place] [address] Care Team Providers Care Plate Fitter Name Role Phone HUIZARSOTERO Cox Unavailable PROBLEMS Type Condition ICD9-CM Code [id number] Code Onset Dates Condition Status SNOMED Code Problem Hyperlipidemia, unspecified hyperlipidemia type E78.5 Active 38721409 Problem Essential hypertension I10 Active 39721452 Problem Gastroesophageal reflux disease, esophagitis presence not specified K21.9 Active 066569537 Problem Seasonal allergic rhinitis due to pollen J30.1 Active 88891268 Problem Tobacco abuse counseling Z71.6 Active 490580399 Problem 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 Active 60472386 Problem Other complicated headache syndrome G44.59 Active 050358263 Problem Tobacco abuse Z72.0 Active 604192526 Problem Other chronic pain G89.29 Active 58129758 Problem Vitamin D deficiency E55.9 Active 74760066 Problem Major depressive disorder, recurrent episode, moderate F33.1 Active 853536450 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 98029759 Problem Irregular heart rhythm I49.9 Active 790597407 Problem Generalized anxiety disorder F41.1 Active 88934891 Problem History of CVA with residual deficit I69.30 Active 003594099 ALLERGIES No Information SOCIAL HISTORY Never Assessed PLAN OF CARE VITAL SIGNS MEDICATIONS Medication Instructions Dosage Frequency Start Date End Date Duration Status Pen Clyde 31G X 5 MM subcutaneously Once a day as directed 24h Jan, 90 days Active RESULTS No Results PROCEDURES No Known procedures IMMUNIZATIONS No Known Immunizations MEDICAL (GENERAL) HISTORY Type Description Date Medical History diabetes mellitus Medical History hyperlipidemia Medical History hypertension Medical History stroke Medical History Anxiety disorder Medical History Panic attacks Medical History Blood Clotting Disorder- Dr Galvan at [facility] Medical History Possible Anemia (currently under work up) - Dr Galvan [facility] Medical History irregular heart beat-sees dr. hassan Medical History history of pancreatitis Medical History gerd Surgical History tubal ligation Surgical History section Surgical History cholecystectomy Surgical History Toe Nail Removal x2 Hospitalization History Brain Stem Strokes x5. Has been hospitalized at then transfered to [place]. 2015 Hospitalization History Child
--- OUTSIDE RECORDS SUMMARY | 2017-03-12 12:39 | XMS REPORT ---
Author Author HUIZARSOTERO Cox Organization [facility] Address [address] [place] [address] Care Team Providers Care Promotional Demonstrator Name Role Phone HUIZARSOTERO Cox Unavailable PROBLEMS Type Condition ICD9-CM Code [id number] Code Onset Dates Condition Status SNOMED Code Problem Hyperlipidemia, unspecified hyperlipidemia type E78.5 Active 94280235 Problem Essential hypertension I10 Active 25391007 Problem Gastroesophageal reflux disease, esophagitis presence not specified K21.9 Active 430697417 Problem Seasonal allergic rhinitis due to pollen J30.1 Active 46923911 Problem Tobacco abuse counseling Z71.6 Active 765786549 Problem 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 Active 60503420 Problem Other complicated headache syndrome G44.59 Active 755518342 Problem Tobacco abuse Z72.0 Active 236553260 Problem Other chronic pain G89.29 Active 91178202 Problem Vitamin D deficiency E55.9 Active 85344285 Problem Major depressive disorder, recurrent episode, moderate F33.1 Active 784112334 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 90839046 Problem Irregular heart rhythm I49.9 Active 838453516 Problem Generalized anxiety disorder F41.1 Active 29016955 Problem History of CVA with residual deficit I69.30 Active 369353053 ALLERGIES No Information SOCIAL HISTORY Never Assessed PLAN OF CARE VITAL SIGNS MEDICATIONS Medication Instructions Dosage Frequency Start Date End Date Duration Status Pantoprazole Sodium 40 mg Orally Once a day 1 tablet 24h Sep, 30 days Active RESULTS No Results PROCEDURES No Known procedures IMMUNIZATIONS No Known Immunizations MEDICAL (GENERAL) HISTORY Type Description Date Medical History diabetes mellitus Medical History hyperlipidemia Medical History hypertension Medical History stroke Medical History Anxiety disorder Medical History Panic attacks Medical History Blood Clotting Disorder- Dr Galvan at [facility] Medical History Possible Anemia (currently under work up) - Dr Galvan [facility] Medical History irregular heart beat-sees dr. hassan Medical History history of pancreatitis Medical History gerd Surgical History tubal ligation Surgical History section Surgical History cholecystectomy Surgical History Toe Nail Removal x2 Hospitalization History Brain Stem Strokes x5. Has been hospitalized at then transfered to [place]. 2015 Hospitalization History Child
--- OUTSIDE RECORDS SUMMARY | 2017-03-12 12:39 | XMS REPORT ---
Author Author GAYEMICHAELSOTERO Organization [facility] Address [address] [place] [address] Care Team Providers Care Machine Gunner Name Role Phone SOTERO HUIZAR Unavailable PROBLEMS Type Condition ICD9-CM Code [id number] Code Onset Dates Condition Status SNOMED Code Problem Hyperlipidemia, unspecified hyperlipidemia type E78.5 Active 82483051 Problem Essential hypertension I10 Active 33574875 Problem Gastroesophageal reflux disease, esophagitis presence not specified K21.9 Active 710661139 Problem Seasonal allergic rhinitis due to pollen J30.1 Active 49391208 Problem Tobacco abuse counseling Z71.6 Active 874218256 Problem 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 Active 69167441 Problem Other complicated headache syndrome G44.59 Active 686997935 Problem Tobacco abuse Z72.0 Active 072199402 Problem Other chronic pain G89.29 Active 72038871 Problem Vitamin D deficiency E55.9 Active 73029129 Problem Major depressive disorder, recurrent episode, moderate F33.1 Active 072634949 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 75345006 Problem Irregular heart rhythm I49.9 Active 906325677 Problem Generalized anxiety disorder F41.1 Active 38079995 Problem History of CVA with residual deficit I69.30 Active 622197473 ALLERGIES No Information SOCIAL HISTORY Never Assessed PLAN OF CARE VITAL SIGNS MEDICATIONS Unknown Medications RESULTS No Results PROCEDURES No Known procedures IMMUNIZATIONS No Known Immunizations MEDICAL (GENERAL) HISTORY Type Description Date Medical History diabetes mellitus Medical History hyperlipidemia Medical History hypertension Medical History stroke Medical History Anxiety disorder Medical History Panic attacks Medical History Blood Clotting Disorder- Dr Galvan at [facility] Medical History Possible Anemia (currently under work up) - Dr Galvan [facility] Medical History irregular heart beat-sees dr. hassan Medical History history of pancreatitis Medical History gerd Surgical History tubal ligation Surgical History section Surgical History cholecystectomy Surgical History Toe Nail Removal x2 Hospitalization History Brain Stem Strokes x5. Has been hospitalized at then transfered to [place]. 2015 Hospitalization History Child
--- OUTSIDE RECORDS SUMMARY | 2017-03-12 12:40 | XMS REPORT ---
Author Author GAYE SOTERO Organization [facility] Address [address] [place] [address] Care Team Providers Care Art Objects Supervisor Name Role Phone HUIZARMICHAEL CoxELE Unavailable PROBLEMS Type Condition ICD9-CM Code [id number] Code Onset Dates Condition Status SNOMED Code Problem Gastroesophageal reflux disease, esophagitis presence not specified K21.9 Active 122413467 Problem History of CVA with residual deficit I69.30 Active 079650416 Problem 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 Active 42972712 Problem Seasonal allergic rhinitis due to pollen J30.1 Active 17322060 Problem Tobacco abuse Z72.0 Active 150519801 Problem Irregular heart rhythm I49.9 Active 817468367 Problem Essential hypertension I10 Active 80487704 Problem Tobacco abuse counseling Z71.6 Active 165656335 Problem Other chronic pain G89.29 Active 20428459 Problem Generalized anxiety disorder F41.1 Active 57382218 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 51105985 Problem Vitamin D deficiency E55.9 Active 66106104 Problem Other complicated headache syndrome G44.59 Active 850294574 Problem Major depressive disorder, recurrent episode, moderate F33.1 Active 724149355 Problem Hyperlipidemia, unspecified hyperlipidemia type E78.5 Active 43610305 ALLERGIES Unknown Allergies SOCIAL HISTORY No smoking Hx information available PLAN OF CARE VITAL SIGNS MEDICATIONS Medication Instructions Dosage Frequency Start Date End Date Duration Status Xanax 1 MG Orally 4 times a day 1 tablet 6h 28 days Active RESULTS No Results PROCEDURES No Known procedures IMMUNIZATIONS No Known Immunizations
--- OUTSIDE RECORDS SUMMARY | 2017-03-12 12:40 | XMS REPORT ---
Author Author GAYE SOTERO Organization [facility] Address [address] [place] [address] Care Team Providers Care Integrated Pest Management Technician Name Role Phone HUIZARMICHAEL CoxELE Unavailable PROBLEMS Type Condition ICD9-CM Code [id number] Code Onset Dates Condition Status SNOMED Code Problem Hyperlipidemia, unspecified hyperlipidemia type E78.5 Active 66687819 Problem Essential hypertension I10 Active 47301882 Problem Gastroesophageal reflux disease, esophagitis presence not specified K21.9 Active 202783496 Problem Seasonal allergic rhinitis due to pollen J30.1 Active 34943824 Problem Tobacco abuse counseling Z71.6 Active 633828011 Problem 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 Active 38194032 Problem Other complicated headache syndrome G44.59 Active 194208027 Problem Tobacco abuse Z72.0 Active 026810978 Problem Other chronic pain G89.29 Active 15959711 Problem Vitamin D deficiency E55.9 Active 49324836 Problem Major depressive disorder, recurrent episode, moderate F33.1 Active 405042596 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
--- OUTSIDE RECORDS SUMMARY | 2017-03-12 12:43 | XMS REPORT | Continuity of Care Document ---
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 MGR (CURRENT) USE OF ANTITHROMBOTI 05/22/2015 THELMA FARAH SIGNAL TESTER Ot Z79.82 BUSINESS MGR (CURRENT) USE OF ASPIRIN 05/24/2015 RONAN SOTO MD A Ot E11.9 TYPE 2 DIABETES MELLITUS WITHOUT COMPLIC 05/24/2015 RONAN SOTO MD A Ot F17.210 NICOTINE DEPENDENCE, CIGARETTES, UNCOMPL 05/24/2015 RONAN SOTO MD A Ot R20.2 PARESTHESIA OF SKIN 05/24/2015 ROANN SOTO MD A Ot Z79.82 BUSINESS MGR (CURRENT) USE OF ASPIRIN 05/24/2015 RONAN SOTO MD A Ot Z79.899 OTHER CUSTODIAL (CURRENT) DRUG THERAPY 06/04/2015 RONAN SOTO MD A Ot E11.9 06/04/2015 RONAN SOTO MD Ot F17.210 06/04/2015 RONAN SOTO MD Ot R20.2 06/04/2015 RONAN SOTO MD A Ot Z79.82 06/04/2015 RONAN SOTO MD A Ot Z79.899 07/25/2015 GILBERT GOMEZ MD Ot 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) THROMBOCYTHEMIA 07/25/2015 GILBERT GOMEZ MD Ot D68.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 07/25/2015 GILBERT GOMEZ MD Ot D72.829 ELEVATED WHITE BLOOD CELL COUNT, UNSPECI 07/25/2015 GILBERT GOMEZ MD Ot E78.5 HYPERLIPIDEMIA, UNSPECIFIED 07/25/2015 GILBERT GOMEZ MD Ot F17.210 NICOTINE DEPENDENCE, CIGARETTES, UNCOMPL 07/25/2015 GILBERT GOMEZ MD Ot I10 ESSENTIAL (PRIMARY) HYPERTENSION 07/25/2015 GILBERT GOMEZ MD Ot Z79.02 BUSINESS MGR (CURRENT) USE OF ANTITHROMBOTI 07/25/2015 GILBERT GOMEZ MD Ot Z79.82 BUSINESS MGR (CURRENT) USE OF ASPIRIN 08/01/2015 GILBERT GOMEZ MD Ot 238.71 08/01/2015 GILBERT GOMEZ MD Ot 272.4 08/01/2015 GILBERT GOMEZ MD Ot 288.60 08/01/2015 GILBERT GOMEZ MD Ot 401.9 08/01/2015 GILBERT GOMEZ MD Ot 438.83 08/01/2015 GILBERT GOMEZ MD Ot 438.89 08/01/2015 GILBERT GOMEZ MD Ot 728.87 08/01/2015 GILBERT GOMEZ MD Ot 785.0 08/01/2015 GILBERT GOMEZ MD Ot V58.69 08/06/2015 GILBERT GOMEZ MD Ot 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) THROMBOCYTHEMIA 08/06/2015 GILBERT GOMEZ MD Ot D68.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 08/06/2015 GILBERT GOMEZ MD, Ot D72.829 ELEVATED WHITE BLOOD CELL COUNT, UNSPECI 08/06/2015 GILBERT GOMEZ MD Ot E78.5 HYPERLIPIDEMIA, UNSPECIFIED 08/06/2015 GILBERT GOMEZ MD Ot F17.210 NICOTINE DEPENDENCE, CIGARETTES, UNCOMPL 08/06/2015 GILBERT GOMEZ MD Ot I10 ESSENTIAL (PRIMARY) HYPERTENSION 08/06/2015 GILBERT GOMEZ MD Ot Z79.02 CUSTODIAL (CURRENT) USE OF ANTITHROMBOTI 08/06/2015 GILBERT GOMEZ MD, Ot Z79.82 CUSTODIAL (CURRENT) USE OF ASPIRIN 09/03/2015 GILBERT GOMEZ MD, Ot 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) THROMBOCYTHEMIA 09/03/2015 GILBERT GOMEZ MD Ot D72.829 ELEVATED WHITE BLOOD CELL COUNT, UNSPECI 09/03/2015 GILBERT GOMEZ MD Ot E78.5 HYPERLIPIDEMIA, UNSPECIFIED 09/03/2015 GILBERT GOMEZ MD Ot I10 ESSENTIAL (PRIMARY) HYPERTENSION 09/03/2015 GILBERT GOMEZ MD Ot 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 09/03/2015 GILBERT GOMEZ MD Ot I69.998 OTHER SEQUELAE FOLLOWING UNSPECIFIED CER 09/03/2015 GILBERT GOMEZ MD Ot M62.81 MUSCLE WEAKNESS (GENERALIZED) 09/03/2015 GILBERT GOMEZ MD Ot R00.0 TACHYCARDIA, UNSPECIFIED 09/03/2015 GILBERT GOMEZ MD Ot Z79.899 OTHER CUSTODIAL (CURRENT) DRUG THERAPY 09/10/2015 AKBAR EVANS MD, Ot D72.829 ELEVATED WHITE BLOOD CELL COUNT, UNSPECI 09/10/2015 AKBAR EVANS MD Ot F17.210 NICOTINE DEPENDENCE, CIGARETTES, UNCOMPL 09/10/2015 AKBAR EVANS MD Ot R11.0 NAUSEA 09/10/2015 NATHAN WRIGHT, AKBAR [employer] Ot R19.7 DIARRHEA, UNSPECIFIED 09/10/2015 NATHAN WRIGHT, AKBAR [employer] Ot R42 DIZZINESS AND GIDDINESS 09/10/2015 NATHAN WRIGHT, AKBAR [employer] Ot R74.8 ABNORMAL LEVELS OF OTHER SERUM ENZYMES 09/10/2015 Ot 272.4 HYPERLIPIDEMIA NEC/NOS 09/10/2015 Ot 401.9 HYPERTENSION NOS 09/10/2015 Ot V58.69 OTH MED,LT, CURRENT USE 09/10/2015 Ot 530.81 ESOPHAGEAL REFLUX 09/10/2015 Ot 541 APPENDICITIS NOS 09/10/2015 Ot 787.03 VOMITING ALONE 09/10/2015 Ot 789.06 ABDOMINAL PAIN, EPIGASTRIC 09/10/2015 Ot 789.09 ABDOMINAL PAIN, OTHER SPECIFIED SITE 09/10/2015 Ot 721.0 CERVICAL SPONDYLOSIS 09/10/2015 Ot 721.2 THORACIC SPONDYLOSIS 09/10/2015 Ot 737.30 IDIOPATHIC SCOLIOSIS 09/10/2015 Ot 786.59 CHEST PAIN NEC 09/10/2015 Ot 530.81 ESOPHAGEAL REFLUX 09/10/2015 Ot 558.9 NONINF GASTROENTERIT NEC 09/10/2015 Ot 617.9 ENDOMETRIOSIS NOS 09/10/2015 Ot 620.2 OVARIAN CYST NEC/NOS 09/10/2015 Ot 625.9 FEM GENITAL SYMPTOMS NOS 09/10/2015 Ot 789.00 ABDOMINAL PAIN, UNSPECIFIED SITE 09/10/2015 Ot 719.43 JOINT PAIN- FOREARM 09/10/2015 Ot 719.46 JOINT PAIN-L /LEG 09/10/2015 Ot 784.0 HEADACHE 09/10/2015 Ot 847.0 SPRAIN OF NECK 09/10/2015 Ot E000.8 OTHER EXTERNAL CAUSE STATUS 09/10/2015 Ot E819.9 TRAFFIC ACC NOS-PERS NOS 09/10/2015 Ot V76.12 OTH SCREEN MAMMO-MALIGN NEOPLASM OF MIKE 09/10/2015 Ot 338.29 OTHER CHRONIC PAIN 09/10/2015 Ot 626.4 IRREGULAR MENSTRUATION 09/10/2015 Ot 627.2 SYMPT MENOPAUSE OR FEMALE CLIMACTERIC ST 09/10/2015 Ot 704.00 ALOPECIA NOS 09/10/2015 Ot 401.9 HYPERTENSION NOS 09/10/2015 Ot 785.1 PALPITATIONS 09/10/2015 Ot 786.09 RESPIRATORY ABNORM NEC 09/10/2015 Ot 786.50 CHEST PAIN NOS 09/10/2015 Ot 368.9 VISUAL DISTURBANCE NOS 09/10/2015 Ot 401.9 HYPERTENSION NOS 09/10/2015 Ot 435.9 TRANS CEREB ISCHEMIA NOS 09/10/2015 Ot 780.39 OTHER CONVULSIONS 09/10/2015 Ot 794.09 ABN EPITAXIAL REACTOR TECHNICIAN FUNCT STUDY NEC 09/10/2015 Ot 794.8 ABN LIVER FUNCTION STUDY 09/10/2015 Ot 368.9 VISUAL DISTURBANCE NOS 09/10/2015 Ot 780.2 SYNCOPE AND COLLAPSE 09/10/2015 Ot 780.79 OTH MALAISE FATIGUE 09/10/2015 Ot 786.2 COUGH 09/10/2015 Ot 786.50 CHEST PAIN NOS 09/10/2015 AMELIA WRIGHT, PASTOR Blank Ot 794.09 ABN EPITAXIAL REACTOR TECHNICIAN FUNCT STUDY NEC 09/10/2015 AMELIA WRIGHT, PASTOR Blank Ot 783.1 ABNORMAL WEIGHT GAIN 09/10/2015 AMELIA WRIGHT, PASTOR Blank Ot 787.3 FLATUL/ERUCTAT/GAS PAIN 09/10/2015 AMELIA WRIGHT, PASTOR Blank Ot 789.09 ABDOMINAL PAIN, OTHER SPECIFIED SITE 09/10/2015 AMELIA WRIGHT, PASTOR Blank Ot 789.1 HEPATOMEGALY 09/10/2015 AMELIA WRIGHT, PASTOR Blank Ot 723.1 CERVICALGIA 09/10/2015 AMELIA WRIGHT, PASTOR Blank Ot 729.5 PAIN IN LIMB 09/10/2015 AMELIA WRIGHT, PASTOR Blank Ot 719.40 JOINT PAIN-UNSPEC 09/10/2015 AMELIA WRIGHT, PASTOR Blank Ot 780.79 OTH MALAISE FATIGUE 09/10/2015 AMELIA WRIGHT, PASTOR Blank Ot 782.3 EDEMA 09/10/2015 AMELIA WRIGHT, PASTOR Blank Ot 785.0 TACHYCARDIA NOS 09/10/2015 AMELIA WRIGHT, PASTOR Blank Ot 719.40 JOINT PAIN-UNSPEC 09/10/2015 AMELIA WRIGHT, PASTOR Blank Ot 780.79 OTH MALAISE FATIGUE 09/10/2015 PASTOR CISNEROS MD Ot 782.3 EDEMA 09/10/2015 PASTOR CISNEROS MD Ot 785.0 TACHYCARDIA NOS 09/10/2015 PASTOR CISNEROS MD Ot 305.1 TOBACCO USE DISORDER 09/10/2015 PASTOR CISNEROS MD Ot 401.9 HYPERTENSION NOS 09/10/2015 AMELIA WRIGHT, PASTOR Blank Ot 428.0 CONGESTIVE HEART FAILURE NOS 09/10/2015 PASTOR CISNEROS MD Ot 782.3 EDEMA 09/10/2015 AMELIA WRIGHT, PASTOR Blank Ot 785.0 TACHYCARDIA NOS 09/10/2015 AMELIA WRIGHT, PASTOR Blank Ot 786.50 CHEST PAIN NOS 09/10/2015 SULEMA HUDSON MD Ot 397.0 TRICUSPID VALVE DISEASE 09/10/2015 TRISTAN WRIGHT, SULEMA Ot 401.9 HYPERTENSION NOS 09/10/2015 TRISTAN WRIGTH, SULEMA Ot 424.0 MITRAL VALVE DISORDER 09/10/2015 SULEMA HUDSON MD Ot 786.50 CHEST PAIN NOS 09/10/2015 TRISTAN WRIGHT, SULEMA Ot 401.9 HYPERTENSION NOS 09/10/2015 TRISTAN WRIGHT, SULEMA Ot 786.50 CHEST PAIN NOS 09/10/2015 PASTOR CISNEROS MD Ot 251.2 HYPOGLYCEMIA NOS 09/10/2015 PASTOR CISNEROS MD Ot 790.29 OTHER ABNORMAL GLUCOSE 09/10/2015 PASTOR CISNEROS MD Ot 780.39 OTHER CONVULSIONS 09/10/2015 PASTOR CISNEROS MD Ot 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 09/10/2015 AMELIA WRIGHT, PASTOR Blank Ot 780.97 ALTERED MENTAL STATUS 09/10/2015 AMELIA WRIGHT, PASTOR Blank Ot 781.99 NERV/MUSCULOSKEL SYS SYMP NEC 09/10/2015 AMELIA WRIGHT, PASTOR Blank Ot 530.81 ESOPHAGEAL REFLUX 09/10/2015 AMELIA WRIGHT, PASTOR Blank Ot 553.3 DIAPHRAGMATIC HERNIA 09/10/2015 AMELIA WRIGHT, PASTOR Blank Ot 787.20 DYSPHAGIA, UNSPECIFIED 09/10/2015 YUKO GARRETT MD Ot 401.9 HYPERTENSION NOS 09/10/2015 YUKO GARRETT MD Ot 785.0 TACHYCARDIA NOS 09/10/2015 YUKO GARRETT MD Ot 785.1 PALPITATIONS 09/10/2015 YUKO GARRETT MD Ot 786.05 SHORTNESS OF BREATH 09/10/2015 JACOB NEWSOME MD Ot 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 09/10/2015 JACOB NEWSOME MD Ot 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 09/10/2015 JACOB NEWSOME MD Ot 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 09/10/2015 JACOB NEWSOME MD Ot 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 09/10/2015 GILBERT GOMEZ MD Ot 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) THROMBOCYTHEMIA 09/10/2015 GILBERT GOMEZ MD Ot D72.829 ELEVATED WHITE BLOOD CELL COUNT, UNSPECI 09/10/2015 GILBERT GOMEZ MD Ot E78.5 HYPERLIPIDEMIA, UNSPECIFIED 09/10/2015 GILBERT GOMEZ MD Ot I10 ESSENTIAL (PRIMARY) HYPERTENSION 09/10/2015 GILBERT GOMEZ MD Ot 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 09/10/2015 GILBERT GOMEZ MD Ot I69.998 OTHER SEQUELAE FOLLOWING UNSPECIFIED CER 09/10/2015 GILBERT GOMEZ MD Ot M62.81 MUSCLE WEAKNESS (GENERALIZED) 09/10/2015 GILBERT GOMEZ MD Ot R00.0 TACHYCARDIA, UNSPECIFIED 09/10/2015 GILBERT GOMZE MD Ot Z79.899 OTHER CUSTODIAL (CURRENT) DRUG THERAPY 09/10/2015 YUKO GARRETT MD Ot I10 ESSENTIAL (PRIMARY) HYPERTENSION 09/10/2015 YUKO GARRETT MD Ot R00.2 PALPITATIONS 09/10/2015 YUKO GARRETT MD Ot R06.02 SHORTNESS OF BREATH 09/10/2015 YUKO GARRETT MD Ot R07.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.4 CUSTODIAL (CURRENT) USE OF INSULIN 09/10/2015 PASTOR CISNEROS MD Ot E11.9 TYPE 2 DIABETES MELLITUS WITHOUT COMPLIC 09/10/2015 PASTOR CISNEROS MD Ot E66.9 OBESITY, UNSPECIFIED 09/10/2015 PASTOR CISNEROS MD Ot I73.9 PERIPHERAL VASCULAR DISEASE, UNSPECIFIED 09/10/2015 PASTOR CISNEROS MD Ot Z86.73 PRSNL HX OF TIA (TIA), AND CEREB INFRC W 09/10/2015 PASTOR CISNEROS MD Ot E11.9 TYPE 2 DIABETES MELLITUS WITHOUT COMPLIC 09/10/2015 PASTOR CISNEROS MD Ot M79.662 PAIN IN LEFT LOWER LEG 09/10/2015 PASTOR CISNEROS MD Ot R51 HEADACHE 09/10/2015 GILBERT GOMEZ MD Ot 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) THROMBOCYTHEMIA 09/10/2015 GILBERT GOMEZ MD Ot D68.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 09/10/2015 GILBERT GOMEZ MD Ot D72.829 ELEVATED WHITE BLOOD CELL COUNT, UNSPECI 09/10/2015 GILBERT GOMEZ MD Ot E78.5 HYPERLIPIDEMIA, UNSPECIFIED 09/10/2015 GILBERT GOMEZ MD Ot F17.210 NICOTINE DEPENDENCE, CIGARETTES, UNCOMPL 09/10/2015 GILBERT GOMEZ MD Ot I10 ESSENTIAL (PRIMARY) HYPERTENSION 09/10/2015 GILBERT GOMEZ MD Ot Z79.02 CUSTODIAL (CURRENT) USE OF ANTITHROMBOTI 09/10/2015 GILBERT GOMEZ MD, Ot Z79.82 CUSTODIAL (CURRENT) USE OF ASPIRIN 09/10/2015 AKBAR EVANS MD Ot D72.829 ELEVATED WHITE BLOOD CELL COUNT, UNSPECI 09/10/2015 AKBAR EVANS MD Ot F17.210 NICOTINE DEPENDENCE, CIGARETTES, UNCOMPL 09/10/2015 AKBAR EVANS MD Ot R11.0 NAUSEA 09/10/2015 AKBAR EVANS MD Ot R19.7 DIARRHEA, UNSPECIFIED 09/10/2015 AKBAR EVANS MD Ot R42 DIZZINESS AND GIDDINESS 09/10/2015 AKBAR EVANS MD Ot R74.8 ABNORMAL LEVELS OF OTHER SERUM ENZYMES 2015 JOSE ADLER DO Ot E87.6 HYPOKALEMIA 2015 JOSE ADLER DO Ot F41.9 ANXIETY DISORDER, UNSPECIFIED 2015 JOSE ADLER DO Ot R42 DIZZINESS AND GIDDINESS 09/15/2015 JOSE ADLER DO Ot E87.6 HYPOKALEMIA 09/15/2015 JOSE ADLER DO, Ot F41.9 ANXIETY DISORDER, UNSPECIFIED 09/15/2015 JOSE ADLER DO Ot R42 DIZZINESS AND GIDDINESS 10/02/2015 GILBERT GOMEZ MD Ot 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) THROMBOCYTHEMIA 10/02/2015 GILBERT GOMEZ MD Ot D72.829 ELEVATED WHITE BLOOD CELL COUNT, UNSPECI 10/02/2015 GILBERT GOMEZ MD Ot E78.5 HYPERLIPIDEMIA, UNSPECIFIED 10/02/2015 GILBERT GOMEZ MD Ot I10 ESSENTIAL (PRIMARY) HYPERTENSION 10/02/2015 GILBERT GOMEZ MD Ot 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 10/02/2015 GILBERT GOMEZ MD Ot I69.998 OTHER SEQUELAE FOLLOWING UNSPECIFIED CER 10/02/2015 GILBERT GOMEZ MD Ot M62.81 MUSCLE WEAKNESS (GENERALIZED) 10/02/2015 GILBERT GOMEZ MD Ot R00.0 TACHYCARDIA, UNSPECIFIED 10/02/2015 GILBERT GOMEZ MD Ot Z79.899 OTHER BUSINESS MGR (CURRENT) DRUG THERAPY 10/05/2015 JOSE ADLER DO Ot E87.6 HYPOKALEMIA 10/05/2015 JOSE ADLER DO Ot F41.9 ANXIETY DISORDER, UNSPECIFIED 10/05/2015 JOSE ADLER DO Ot R42 DIZZINESS AND GIDDINESS 10/29/2015 GILBERT GOMEZ MD Ot 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) THROMBOCYTHEMIA 10/29/2015 GILBERT GOMEZ MD Ot D72.829 ELEVATED WHITE BLOOD CELL COUNT, UNSPECI 10/29/2015 GILBERT GOMEZ MD Ot E78.5 HYPERLIPIDEMIA, UNSPECIFIED 10/29/2015 GILBERT GOMEZ MD Ot I10 ESSENTIAL (PRIMARY) HYPERTENSION 10/29/2015 GILBERT GOMEZ MD Ot 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 10/29/2015 GILBERT GOMEZ MD Ot I69.998 OTHER SEQUELAE FOLLOWING UNSPECIFIED CER 10/29/2015 GILBERT GOMEZ MD Ot M62.81 MUSCLE WEAKNESS (GENERALIZED) 10/29/2015 GILBERT GOMEZ MD Ot R00.0 TACHYCARDIA, UNSPECIFIED 10/29/2015 GILBERT GOMEZ MD Ot Z79.899 OTHER BUSINESS MGR (CURRENT) DRUG THERAPY 10/30/2015 GILBERT GOMEZ MD Ot 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) THROMBOCYTHEMIA 10/30/2015 GILBERT GOMEZ MD Ot D72.829 ELEVATED WHITE BLOOD CELL COUNT, UNSPECI 10/30/2015 GILBERT GOMEZ MD Ot E78.5 HYPERLIPIDEMIA, UNSPECIFIED 10/30/2015 GILBERT GOMEZ MD Ot I10 ESSENTIAL (PRIMARY) HYPERTENSION 10/30/2015 GILBERT GOMEZ MD Ot 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 10/30/2015 GILBERT GOMEZ MD Ot I69.998 OTHER SEQUELAE FOLLOWING UNSPECIFIED CER 10/30/2015 GILBERT GOMEZ MD Ot M62.81 MUSCLE WEAKNESS (GENERALIZED) 10/30/2015 GILBERT GOMEZ MD Ot R00.0 TACHYCARDIA, UNSPECIFIED 10/30/2015 GILBERT GOMEZ MD Ot Z79.899 OTHER CUSTODIAL (CURRENT) DRUG THERAPY 11/04/2015 GILBERT GOMEZ MD Ot 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) THROMBOCYTHEMIA 11/04/2015 GILBERT GOMEZ MD Ot D72.829 ELEVATED WHITE BLOOD CELL COUNT, UNSPECI 11/04/2015 GILBERT GOMEZ MD Ot E78.5 HYPERLIPIDEMIA, UNSPECIFIED 11/04/2015 GILBERT GOMEZ MD Ot I10 ESSENTIAL (PRIMARY) HYPERTENSION 11/04/2015 GILBERT GOMEZ MD Ot 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 11/04/2015 GILBERT GOMEZ MD Ot I69.998 OTHER SEQUELAE FOLLOWING UNSPECIFIED CER 11/04/2015 GILBERT GOMEZ MD Ot M62.81 MUSCLE WEAKNESS (GENERALIZED) 11/04/2015 GILBERT GOMEZ MD Ot R00.0 TACHYCARDIA, UNSPECIFIED 11/04/2015 GILBERT GOMEZ MD Ot Z79.899 OTHER BUSINESS MGR (CURRENT) DRUG THERAPY 12/11/2015 GILBERT GOMEZ MD, Ot 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) THROMBOCYTHEMIA 12/11/2015 GILBERT GOMEZ MD, Ot D72.829 ELEVATED WHITE BLOOD CELL COUNT, UNSPECI 12/11/2015 GILBERT GOMEZ MD, Ot E78.5 HYPERLIPIDEMIA, UNSPECIFIED 12/11/2015 GILBERT GOMEZ MD Ot I10 ESSENTIAL (PRIMARY) HYPERTENSION 12/11/2015 GILBERT GOMEZ MD Ot 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 12/11/2015 GILBERT GOMEZ MD Ot I69.998 OTHER SEQUELAE FOLLOWING UNSPECIFIED CER 12/11/2015 GILBERT GOMEZ MD Ot M62.81 MUSCLE WEAKNESS (GENERALIZED) 12/11/2015 GILBERT GOMEZ MD Ot R00.0 TACHYCARDIA, UNSPECIFIED 12/11/2015 GILBERT GOMEZ MD Ot Z79.899 OTHER BUSINESS MGR (CURRENT) DRUG THERAPY 12/19/2015 GILBERT GOMEZ MD Ot 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) THROMBOCYTHEMIA 12/19/2015 GILBERT GOMEZ MD Ot D72.829 ELEVATED WHITE BLOOD CELL COUNT, UNSPECI 12/19/2015 GILBERT GOMEZ MD Ot E78.5 HYPERLIPIDEMIA, UNSPECIFIED 12/19/2015 GILBERT GOMEZ MD Ot I10 ESSENTIAL (PRIMARY) HYPERTENSION 12/19/2015 GILBERT GOMEZ MD Ot 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 12/19/2015 GILBERT GOMEZ MD Ot I69.998 OTHER SEQUELAE FOLLOWING UNSPECIFIED CER 12/19/2015 GILBERT GOMEZ MD Ot M62.81 MUSCLE WEAKNESS (GENERALIZED) 12/19/2015 GILBERT GOMEZ MD Ot R00.0 TACHYCARDIA, UNSPECIFIED 12/19/2015 GILBERT GOMEZ MD Ot Z79.899 OTHER CUSTODIAL (CURRENT) DRUG THERAPY 01/02/2016 GILBERT GOMEZ MD Ot 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) THROMBOCYTHEMIA 01/02/2016 GILBERT GOMEZ MD Ot D72.829 ELEVATED WHITE BLOOD CELL COUNT, UNSPECI 01/02/2016 GILBERT GOMEZ MD Ot E78.5 HYPERLIPIDEMIA, UNSPECIFIED 01/02/2016 GILBERT GOMEZ MD Ot I10 ESSENTIAL (PRIMARY) HYPERTENSION 01/02/2016 GILBERT GOMEZ MD Ot 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 01/02/2016 GILBERT GOMEZ MD Ot I69.998 OTHER SEQUELAE FOLLOWING UNSPECIFIED CER 01/02/2016 GILBERT GOMEZ MD Ot M62.81 MUSCLE WEAKNESS (GENERALIZED) 01/02/2016 GILBERT GOMEZ MD Ot R00.0 TACHYCARDIA, UNSPECIFIED 01/02/2016 GILBERT GOMEZ MD Ot Z79.899 OTHER BUSINESS MGR (CURRENT) DRUG THERAPY 03/17/2016 GILBERT GOMEZ MD Ot 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) THROMBOCYTHEMIA 03/17/2016 GILBERT GOMEZ MD Ot D72.829 ELEVATED WHITE BLOOD CELL COUNT, UNSPECI 03/17/2016 GILBERT GOMEZ MD Ot E78.5 HYPERLIPIDEMIA, UNSPECIFIED 03/17/2016 GILBERT GOMEZ MD Ot I10 ESSENTIAL (PRIMARY) HYPERTENSION 03/17/2016 GILBERT GOMEZ MD Ot 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 03/17/2016 GILBERT GOMEZ MD Ot I69.998 OTHER SEQUELAE FOLLOWING UNSPECIFIED CER 03/17/2016 GILBERT GOMEZ MD Ot M62.81 MUSCLE WEAKNESS (GENERALIZED) 03/17/2016 GILBERT GOMEZ MD Ot R00.0 TACHYCARDIA, UNSPECIFIED 03/17/2016 GILBERT GOMEZ MD Ot Z79.899 OTHER CUSTODIAL (CURRENT) DRUG THERAPY 03/23/2016 Ot 272.4 HYPERLIPIDEMIA NEC/NOS 03/23/2016 Ot 401.9 HYPERTENSION NOS 03/23/2016 Ot V58.69 OTH MED,LT, CURRENT USE 03/23/2016 Ot 530.81 ESOPHAGEAL REFLUX 03/23/2016 Ot 541 APPENDICITIS NOS 03/23/2016 Ot 787.03 VOMITING ALONE 03/23/2016 Ot 789.06 ABDOMINAL PAIN, EPIGASTRIC 03/23/2016 Ot 789.09 ABDOMINAL PAIN, OTHER SPECIFIED SITE 03/23/2016 Ot 721.0 CERVICAL SPONDYLOSIS 03/23/2016 Ot 721.2 THORACIC SPONDYLOSIS 03/23/2016 Ot 737.30 IDIOPATHIC SCOLIOSIS 03/23/2016 Ot 786.59 CHEST PAIN NEC 03/23/2016 Ot 530.81 ESOPHAGEAL REFLUX 03/23/2016 Ot 558.9 NONINF GASTROENTERIT NEC 03/23/2016 Ot 617.9 ENDOMETRIOSIS NOS 03/23/2016 Ot 620.2 OVARIAN CYST NEC/NOS 03/23/2016 Ot 625.9 FEM GENITAL SYMPTOMS NOS 03/23/2016 Ot 789.00 ABDOMINAL PAIN, UNSPECIFIED SITE 03/23/2016 Ot 719.43 JOINT PAIN- FOREARM 03/23/2016 Ot 719.46 JOINT PAIN-L /LEG 03/23/2016 Ot 784.0 HEADACHE 03/23/2016 Ot 847.0 SPRAIN OF NECK 03/23/2016 Ot E000.8 OTHER EXTERNAL CAUSE STATUS 03/23/2016 Ot E819.9 TRAFFIC ACC NOS-PERS NOS 03/23/2016 Ot V76.12 OTH SCREEN MAMMO-MALIGN NEOPLASM OF MIKE 03/23/2016 Ot 338.29 OTHER CHRONIC PAIN 03/23/2016 Ot 626.4 IRREGULAR MENSTRUATION 03/23/2016 Ot 627.2 SYMPT MENOPAUSE OR FEMALE CLIMACTERIC ST 03/23/2016 Ot 704.00 ALOPECIA NOS 03/23/2016 Ot 401.9 HYPERTENSION NOS 03/23/2016 Ot 785.1 PALPITATIONS 03/23/2016 Ot 786.09 RESPIRATORY ABNORM NEC 03/23/2016 Ot 786.50 CHEST PAIN NOS 03/23/2016 Ot 368.9 VISUAL DISTURBANCE NOS 03/23/2016 Ot 401.9 HYPERTENSION NOS 03/23/2016 Ot 435.9 TRANS CEREB ISCHEMIA NOS 03/23/2016 Ot 780.39 OTHER CONVULSIONS 03/23/2016 Ot 794.09 ABN EPITAXIAL REACTOR TECHNICIAN FUNCT STUDY NEC 03/23/2016 Ot 794.8 ABN LIVER FUNCTION STUDY 03/23/2016 Ot 368.9 VISUAL DISTURBANCE NOS 03/23/2016 Ot 780.2 SYNCOPE AND COLLAPSE 03/23/2016 Ot 780.79 OTH MALAISE FATIGUE 03/23/2016 Ot 786.2 COUGH 03/23/2016 Ot 786.50 CHEST PAIN NOS 03/23/2016 AMELIA WRIGHT, PASTOR Blank Ot 794.09 ABN EPITAXIAL REACTOR TECHNICIAN FUNCT STUDY NEC 03/23/2016 PASTOR CISNEROS MD Ot 783.1 ABNORMAL WEIGHT GAIN 03/23/2016 PASTOR CISNEROS MD Ot 787.3 FLATUL/ERUCTAT/GAS PAIN 03/23/2016 PASTOR CISNEROS MD Ot 789.09 ABDOMINAL PAIN, OTHER SPECIFIED SITE 03/23/2016 PASTOR CISNEROS MD Ot 789.1 HEPATOMEGALY 03/23/2016 PASTOR CISNEROS MD Ot 723.1 CERVICALGIA 03/23/2016 PASTOR CISNEROS MD Ot 729.5 PAIN IN LIMB 03/23/2016 PASTOR CISNEROS MD Ot 719.40 JOINT PAIN-UNSPEC 03/23/2016 PASTOR CISNEROS MD Ot 780.79 OTH MALAISE FATIGUE 03/23/2016 PASTOR CISNEROS MD Ot 782.3 EDEMA 03/23/2016 PASTOR CISNEROS MD Ot 785.0 TACHYCARDIA NOS 03/23/2016 PASTOR CISNEROS MD Ot 719.40 JOINT PAIN-UNSPEC 03/23/2016 PASTOR CISNEROS MD Ot 780.79 OTH MALAISE FATIGUE 03/23/2016 PASTOR CISNEROS MD Ot 782.3 EDEMA 03/23/2016 AMELIA WRIGHT, PASTOR Blank Ot 785.0 TACHYCARDIA NOS 03/23/2016 AMELIA WRIGHT, PASTOR Blank Ot 305.1 TOBACCO USE DISORDER 03/23/2016 PASTOR CISNEROS MD Ot 401.9 HYPERTENSION NOS 03/23/2016 PASTOR CISNEROS MD Ot 428.0 CONGESTIVE HEART FAILURE NOS 03/23/2016 PASTOR CISNEROS MD Ot 782.3 EDEMA 03/23/2016 PASTOR CISNEROS MD Ot 785.0 TACHYCARDIA NOS 03/23/2016 PASTOR CISNEROS MD Ot 786.50 CHEST PAIN NOS 03/23/2016 SULEMA HUDSON MD Ot 397.0 TRICUSPID VALVE DISEASE 03/23/2016 SULEMA HUDSON MD Ot 401.9 HYPERTENSION NOS 03/23/2016 SULEMA HUDSON MD Ot 424.0 MITRAL VALVE DISORDER 03/23/2016 SULEMA HUDSON MD Ot 786.50 CHEST PAIN NOS 03/23/2016 SULEMA HUDSON MD Ot 401.9 HYPERTENSION NOS 03/23/2016 SULEMA HUDSON MD Ot 786.50 CHEST PAIN NOS 03/23/2016 PASTOR CISNEROS MD Ot 251.2 HYPOGLYCEMIA NOS 03/23/2016 PASTOR CISNEROS MD Ot 790.29 OTHER ABNORMAL GLUCOSE 03/23/2016 PASTOR CISNEROS MD Ot 780.39 OTHER CONVULSIONS 03/23/2016 PASTOR CISNEROS MD Ot 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 03/23/2016 PASTOR CISNEROS MD Ot 780.97 ALTERED MENTAL STATUS 03/23/2016 PASTOR CISNEROS MD Ot 781.99 NERV/MUSCULOSKEL SYS SYMP NEC 03/23/2016 PASTOR CISNEROS MD Ot 530.81 ESOPHAGEAL REFLUX 03/23/2016 PASTOR CISNEROS MD Ot 553.3 DIAPHRAGMATIC HERNIA 03/23/2016 PASTOR CISNEROS MD Ot 787.20 DYSPHAGIA, UNSPECIFIED 03/23/2016 YUKO GARRETT MD Ot 401.9 HYPERTENSION NOS 03/23/2016 YUKO GARRETT MD Ot 785.0 TACHYCARDIA NOS 03/23/2016 YUKO GARRETT MD Ot 785.1 PALPITATIONS 03/23/2016 YUKO GARRETT MD Ot 786.05 SHORTNESS OF BREATH 03/23/2016 JEROD WRIGHT, JACOB Helms Ot 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 03/23/2016 JACOB NEWSOME MD Ot 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 03/23/2016 JACOB NEWSOME MD Ot 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 03/23/2016 JACOB NEWSOME MD Ot 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 03/23/2016 YUKO GARRETT MD Ot I10 ESSENTIAL (PRIMARY) HYPERTENSION 03/23/2016 YUKO GARRETT MD Ot R00.2 PALPITATIONS 03/23/2016 YUKO GARRETT MD Ot R06.02 SHORTNESS OF BREATH 03/23/2016 YUKO GARRETT MD Ot R07.89 OTHER CHEST PAIN 03/23/2016 PASTOR CISNEROS MD Ot E11.9 TYPE 2 DIABETES MELLITUS WITHOUT COMPLIC 03/23/2016 PASTOR CISNEROS MD Ot Z79.4 BUSINESS MGR (CURRENT) USE OF INSULIN 03/23/2016 PASTOR CISNEROS MD Ot E11.9 TYPE 2 DIABETES MELLITUS WITHOUT COMPLIC 03/23/2016 PASTOR CISNEROS MD Ot E66.9 OBESITY, UNSPECIFIED 03/23/2016 PASTOR CISNEROS MD Ot I73.9 PERIPHERAL VASCULAR DISEASE, UNSPECIFIED 03/23/2016 PASTOR CISNEROS MD Ot Z86.73 PRSNL HX OF TIA (TIA), AND CEREB INFRC W 03/23/2016 PASTOR CISNEROS MD Ot E11.9 TYPE 2 DIABETES MELLITUS WITHOUT COMPLIC 03/23/2016 PASTOR CISNEROS MD Ot M79.662 PAIN IN LEFT LOWER LEG 03/23/2016 PASTOR CISNEROS MD Ot R51 HEADACHE 03/23/2016 GILBERT GOMEZ MD, Ot 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) THROMBOCYTHEMIA 03/23/2016 GILBERT GOMEZ MD Ot D68.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 03/23/2016 GILBERT GOMEZ MD, Ot D72.829 ELEVATED WHITE BLOOD CELL COUNT, UNSPECI 03/23/2016 GILBERT GOMEZ MD, Ot E78.5 HYPERLIPIDEMIA, UNSPECIFIED 03/23/2016 GILBERT GOMEZ MD Ot F17.210 NICOTINE DEPENDENCE, CIGARETTES, UNCOMPL 03/23/2016 GILBERT GOMEZ MD Ot I10 ESSENTIAL (PRIMARY) HYPERTENSION 03/23/2016 GILBERT GOEMZ MD Ot Z79.02 CUSTODIAL (CURRENT) USE OF ANTITHROMBOTI 03/23/2016 GILBERT GOMEZ MD Ot Z79.82 BUSINESS MGR (CURRENT) USE OF ASPIRIN 03/23/2016 GILBERT GOMEZ MD, Ot 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) THROMBOCYTHEMIA 03/23/2016 GILBERT GOMEZ MD Ot D72.829 ELEVATED WHITE BLOOD CELL COUNT, UNSPECI 03/23/2016 GILBERT GOMEZ MD Ot E78.5 HYPERLIPIDEMIA, UNSPECIFIED 03/23/2016 GILBERT GOMEZ MD Ot I10 ESSENTIAL (PRIMARY) HYPERTENSION 03/23/2016 GILBERT GOMEZ MD Ot 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 03/23/2016 GILBERT GOMEZ MD Ot I69.998 OTHER SEQUELAE FOLLOWING UNSPECIFIED CER 03/23/2016 GILBERT GOMEZ MD Ot M62.81 MUSCLE WEAKNESS (GENERALIZED) 03/23/2016 GILBERT GOMEZ MD Ot R00.0 TACHYCARDIA, UNSPECIFIED 03/23/2016 GILBERT GOMEZ MD Ot Z79.899 OTHER CUSTODIAL (CURRENT) DRUG THERAPY 06/15/2016 GILBERT GOMEZ MD, Ot 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) THROMBOCYTHEMIA 06/15/2016 JASON WRIGHT GILBERT Yin Ot D72.829 ELEVATED WHITE BLOOD CELL COUNT, UNSPECI 06/15/2016 JASON WRIGHT GILBERT Yin Ot E78.5 HYPERLIPIDEMIA, UNSPECIFIED 06/15/2016 GILBERT GOMEZ MD Ot I10 ESSENTIAL (PRIMARY) HYPERTENSION 06/15/2016 JASON WRIGHT GILBERT Yin Ot 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 06/15/2016 GILBERT GOMEZ MD Ot I69.998 OTHER SEQUELAE FOLLOWING UNSPECIFIED CER 06/15/2016 JASON WRIGHT GILBERT Yin Ot M62.81 MUSCLE WEAKNESS (GENERALIZED) 06/15/2016 JASON WRIGHT GILBERT Yin Ot R00.0 TACHYCARDIA, UNSPECIFIED 06/15/2016 JASON WRIGHT GILBERT Esqueda Ot Z79.899 OTHER CUSTODIAL (CURRENT) DRUG THERAPY 06/30/2016 Ot 530.81 ESOPHAGEAL REFLUX 06/30/2016 Ot 541 APPENDICITIS NOS 06/30/2016 Ot 787.03 VOMITING ALONE 06/30/2016 Ot 789.06 ABDOMINAL PAIN, EPIGASTRIC 06/30/2016 Ot 789.09 ABDOMINAL PAIN, OTHER SPECIFIED SITE 06/30/2016 Ot 721.0 CERVICAL SPONDYLOSIS 06/30/2016 Ot 721.2 THORACIC SPONDYLOSIS 06/30/2016 Ot 737.30 IDIOPATHIC SCOLIOSIS 06/30/2016 Ot 786.59 CHEST PAIN NEC 06/30/2016 Ot 530.81 ESOPHAGEAL REFLUX 06/30/2016 Ot 558.9 NONINF GASTROENTERIT NEC 06/30/2016 Ot 617.9 ENDOMETRIOSIS NOS 06/30/2016 Ot 620.2 OVARIAN CYST NEC/NOS 06/30/2016 Ot 625.9 FEM GENITAL SYMPTOMS NOS 06/30/2016 Ot 789.00 ABDOMINAL PAIN, UNSPECIFIED SITE 06/30/2016 Ot 719.43 JOINT PAIN- FOREARM 06/30/2016 Ot 719.46 JOINT PAIN-L /LEG 06/30/2016 Ot 784.0 HEADACHE 06/30/2016 Ot 847.0 SPRAIN OF NECK 06/30/2016 Ot E000.8 OTHER EXTERNAL CAUSE STATUS 06/30/2016 Ot E819.9 TRAFFIC ACC NOS-PERS NOS 06/30/2016 Ot V76.12 OTH SCREEN MAMMO-MALIGN NEOPLASM OF [place] 06/30/2016 Ot 338.29 OTHER CHRONIC PAIN 06/30/2016 Ot 626.4 IRREGULAR MENSTRUATION 06/30/2016 Ot 627.2 SYMPT MENOPAUSE OR FEMALE CLIMACTERIC ST 06/30/2016 Ot 704.00 ALOPECIA NOS 06/30/2016 Ot 401.9 HYPERTENSION NOS 06/30/2016 Ot 785.1 PALPITATIONS 06/30/2016 Ot 786.09 RESPIRATORY ABNORM NEC 06/30/2016 Ot 786.50 CHEST PAIN NOS 06/30/2016 Ot 368.9 VISUAL DISTURBANCE NOS 06/30/2016 Ot 401.9 HYPERTENSION NOS 06/30/2016 Ot 435.9 TRANS CEREB ISCHEMIA NOS 06/30/2016 Ot 780.39 OTHER CONVULSIONS 06/30/2016 Ot 794.09 ABN EPITAXIAL REACTOR TECHNICIAN FUNCT STUDY NEC 06/30/2016 Ot 794.8 ABN LIVER FUNCTION STUDY 06/30/2016 Ot 368.9 VISUAL DISTURBANCE NOS 06/30/2016 Ot 780.2 SYNCOPE AND COLLAPSE 06/30/2016 Ot 780.79 OTH MALAISE FATIGUE 06/30/2016 Ot 786.2 COUGH 06/30/2016 Ot 786.50 CHEST PAIN NOS 06/30/2016 AMELIA WRIGHT, PASTOR Blank Ot 794.09 ABN EPITAXIAL REACTOR TECHNICIAN FUNCT STUDY NEC 06/30/2016 AMELIA WRIGHT, PASTOR Blank Ot 783.1 ABNORMAL WEIGHT GAIN 06/30/2016 AMELIA WRIGHT, PASTOR Blank Ot 787.3 FLATUL/ERUCTAT/GAS PAIN 06/30/2016 AMELIA WRIGHT, PASTOR Blank Ot 789.09 ABDOMINAL PAIN, OTHER SPECIFIED SITE 06/30/2016 AMELIA WRIGHT, PASTOR Blank Ot 789.1 HEPATOMEGALY 06/30/2016 PASTOR CISNEROS MD Ot 723.1 CERVICALGIA 06/30/2016 AMELIA WRIGHT, PASTOR Blank Ot 729.5 PAIN IN LIMB 06/30/2016 PASTOR CISNEROS MD Ot 719.40 JOINT PAIN-UNSPEC 06/30/2016 PASTOR CISNEROS MD Ot 780.79 OTH MALAISE FATIGUE 06/30/2016 PASTOR CISNEROS MD Ot 782.3 EDEMA 06/30/2016 PASTOR CISNEROS MD Ot 785.0 TACHYCARDIA NOS 06/30/2016 PASTOR CISNEROS MD Ot 719.40 JOINT PAIN-UNSPEC 06/30/2016 PASTOR CISNEROS MD Ot 780.79 OTH MALAISE FATIGUE 06/30/2016 PASTOR CISNEROS MD Ot 782.3 EDEMA 06/30/2016 PASTOR CISNEROS MD Ot 785.0 TACHYCARDIA NOS 06/30/2016 PASTOR CISNEROS MD J Ot 305.1 TOBACCO USE DISORDER 06/30/2016 AMELIA WRIGHT, PASTOR Blank Ot 401.9 HYPERTENSION NOS 06/30/2016 AMELIA WRIGHT, PASTOR Blank Ot 428.0 CONGESTIVE HEART FAILURE NOS 06/30/2016 PASTOR CISNEROS MD Ot 782.3 EDEMA 06/30/2016 PASTOR CISNEROS MD Ot 785.0 TACHYCARDIA NOS 06/30/2016 PASTOR CISNEROS MD Ot 786.50 CHEST PAIN NOS 06/30/2016 TRISTAN WRIGHT, SULEMA Ot 397.0 TRICUSPID VALVE DISEASE 06/30/2016 TRISTAN WRIGHT, SULEMA Ot 401.9 HYPERTENSION NOS 06/30/2016 SULEMA HUDSON MD Ot 424.0 MITRAL VALVE DISORDER 06/30/2016 SULEMA HUDSON MD Ot 786.50 CHEST PAIN NOS 06/30/2016 SULEMA HUDSON MD Ot 401.9 HYPERTENSION NOS 06/30/2016 SULEMA HUDSON MD Ot 786.50 CHEST PAIN NOS 06/30/2016 PASTOR CISNEROS MD Ot 251.2 HYPOGLYCEMIA NOS 06/30/2016 AMELIA WRIGHT, PASTOR Blank Ot 790.29 OTHER ABNORMAL GLUCOSE 06/30/2016 AMELIA WRIGHT, PASTOR Blank Ot 780.39 OTHER CONVULSIONS 06/30/2016 AMELIA WRIGHT, PASTOR Blank Ot 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 06/30/2016 AMELIA WRIGHT, PASTOR Blank Ot 780.97 ALTERED MENTAL STATUS 06/30/2016 AMELIA WRIGHT, PASTOR Blank Ot 781.99 NERV/MUSCULOSKEL SYS SYMP NEC 06/30/2016 AMELIA WRIGHT, PASTOR Blank Ot 530.81 ESOPHAGEAL REFLUX 06/30/2016 AMELIA WRIGHT, PASTOR Blank Ot 553.3 DIAPHRAGMATIC HERNIA 06/30/2016 AMELIA WRIGHT, PASTOR Blank Ot 787.20 DYSPHAGIA, UNSPECIFIED 06/30/2016 YUKO GARRETT MD Ot 401.9 HYPERTENSION NOS 06/30/2016 YUKO GARRETT MD Ot 785.0 TACHYCARDIA NOS 06/30/2016 YUKO GARRETT MD Ot 785.1 PALPITATIONS 06/30/2016 YUKO GARRETT MD Ot 786.05 SHORTNESS OF BREATH 06/30/2016 JACOB NEWSOME MD Ot 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 06/30/2016 JACOB NEWSOME MD Ot 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 06/30/2016 JACOB NEWSOME MD Ot 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 06/30/2016 JACOB NEWSOME MD Ot 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 06/30/2016 YUKO GARRETT MD Ot I10 ESSENTIAL (PRIMARY) HYPERTENSION 06/30/2016 YUKO GARRETT MD Ot R00.2 PALPITATIONS 06/30/2016 YUKO GARRETT MD Ot R06.02 SHORTNESS OF BREATH 06/30/2016 YUKO GARRETT MD Ot R07.89 OTHER CHEST PAIN 06/30/2016 PASTOR CISNEROS MD Ot E11.9 TYPE 2 DIABETES MELLITUS WITHOUT COMPLIC 06/30/2016 PASTOR CISNEROS MD Ot Z79.4 CUSTODIAL (CURRENT) USE OF INSULIN 06/30/2016 PASTOR CISNEROS MD Ot E11.9 TYPE 2 DIABETES MELLITUS WITHOUT COMPLIC 06/30/2016 PASTOR CISNEROS MD Ot E66.9 OBESITY, UNSPECIFIED 06/30/2016 PASTOR CISNEROS MD Ot I73.9 PERIPHERAL VASCULAR DISEASE, UNSPECIFIED 06/30/2016 PASTOR CISNEROS MD Ot Z86.73 PRSNL HX OF TIA (TIA), AND CEREB INFRC W 06/30/2016 PASTOR CISNEROS MD Ot E11.9 TYPE 2 DIABETES MELLITUS WITHOUT COMPLIC 06/30/2016 PASTOR CISNEROS MD Ot M79.662 PAIN IN LEFT LOWER LEG 06/30/2016 PASTOR CISNEROS MD Ot R51 HEADACHE 06/30/2016 GILBERT GOMEZ MD, Ot 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) THROMBOCYTHEMIA 06/30/2016 GILBERT GOMEZ MD Ot D68.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 06/30/2016 GILBERT GOMEZ MD, Ot D72.829 ELEVATED WHITE BLOOD CELL COUNT, UNSPECI 06/30/2016 GILBERT GOMEZ MD Ot E78.5 HYPERLIPIDEMIA, UNSPECIFIED 06/30/2016 GILBERT GOMEZ MD Ot F17.210 NICOTINE DEPENDENCE, CIGARETTES, UNCOMPL 06/30/2016 GILBERT GOMEZ MD Ot I10 ESSENTIAL (PRIMARY) HYPERTENSION 06/30/2016 GILBERT GOMEZ MD Ot Z79.02 CUSTODIAL (CURRENT) USE OF ANTITHROMBOTI 06/30/2016 GILBERT GOMEZ MD Ot Z79.82 BUSINESS MGR (CURRENT) USE OF ASPIRIN 06/30/2016 GILBERT GOMEZ MD, Ot 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) THROMBOCYTHEMIA 06/30/2016 JASON MD, GILBERT K Ot D72.829 ELEVATED WHITE BLOOD CELL COUNT, UNSPECI 06/30/2016 GILBERT GOMEZ MD Ot E78.5 HYPERLIPIDEMIA, UNSPECIFIED 06/30/2016 GILBERT GOMEZ MD Ot I10 ESSENTIAL (PRIMARY) HYPERTENSION 06/30/2016 GILBERT GOMEZ MD Ot 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 06/30/2016 GILBERT GOMEZ MD Ot I69.998 OTHER SEQUELAE FOLLOWING UNSPECIFIED CER 06/30/2016 GILBERT GOMEZ MD Ot M62.81 MUSCLE WEAKNESS (GENERALIZED) 06/30/2016 GILBERT GOMEZ MD Ot R00.0 TACHYCARDIA, UNSPECIFIED 06/30/2016 GILBERT GOMEZ MD Ot Z79.899 OTHER CUSTODIAL (CURRENT) DRUG THERAPY 06/30/2016 GILBERT GOMEZ MD Ot 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) THROMBOCYTHEMIA 06/30/2016 GILBERT GOMEZ MD Ot D72.829 ELEVATED WHITE BLOOD CELL COUNT, UNSPECI 06/30/2016 GILBERT GOMEZ MD Ot E78.5 HYPERLIPIDEMIA, UNSPECIFIED 06/30/2016 GILBERT GOMEZ MD Ot I10 ESSENTIAL (PRIMARY) HYPERTENSION 06/30/2016 GILBERT GOMEZ MD Ot 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 06/30/2016 GILBERT GOMEZ MD Ot I69.998 OTHER SEQUELAE FOLLOWING UNSPECIFIED CER 06/30/2016 GILBERT GOMEZ MD Ot M62.81 MUSCLE WEAKNESS (GENERALIZED) 06/30/2016 GILBERT GOMEZ MD Ot R00.0 TACHYCARDIA, UNSPECIFIED 06/30/2016 GILBERT GOMEZ MD Ot Z79.899 OTHER CUSTODIAL (CURRENT) DRUG THERAPY 06/30/2016 Ot 530.81 ESOPHAGEAL REFLUX 06/30/2016 Ot 541 APPENDICITIS NOS 06/30/2016 Ot 787.03 VOMITING ALONE 06/30/2016 Ot 789.06 ABDOMINAL PAIN, EPIGASTRIC 06/30/2016 Ot 789.09 ABDOMINAL PAIN, OTHER SPECIFIED SITE 06/30/2016 Ot 721.0 CERVICAL SPONDYLOSIS 06/30/2016 Ot 721.2 THORACIC SPONDYLOSIS 06/30/2016 Ot 737.30 IDIOPATHIC SCOLIOSIS 06/30/2016 Ot 786.59 CHEST PAIN NEC 06/30/2016 Ot 530.81 ESOPHAGEAL REFLUX 06/30/2016 Ot 558.9 NONINF GASTROENTERIT NEC 06/30/2016 Ot 617.9 ENDOMETRIOSIS NOS 06/30/2016 Ot 620.2 OVARIAN CYST NEC/NOS 06/30/2016 Ot 625.9 FEM GENITAL SYMPTOMS NOS 06/30/2016 Ot 789.00 ABDOMINAL PAIN, UNSPECIFIED SITE 06/30/2016 Ot 719.43 JOINT PAIN- FOREARM 06/30/2016 Ot 719.46 JOINT PAIN-L /LEG 06/30/2016 Ot 784.0 HEADACHE 06/30/2016 Ot 847.0 SPRAIN OF NECK 06/30/2016 Ot E000.8 OTHER EXTERNAL CAUSE STATUS 06/30/2016 Ot E819.9 TRAFFIC ACC NOS-PERS NOS 06/30/2016 Ot V76.12 OTH SCREEN MAMMO-MALIGN NEOPLASM OF [place] 06/30/2016 Ot 338.29 OTHER CHRONIC PAIN 06/30/2016 Ot 626.4 IRREGULAR MENSTRUATION 06/30/2016 Ot 627.2 SYMPT MENOPAUSE OR FEMALE CLIMACTERIC ST 06/30/2016 Ot 704.00 ALOPECIA NOS 06/30/2016 Ot 401.9 HYPERTENSION NOS 06/30/2016 Ot 785.1 PALPITATIONS 06/30/2016 Ot 786.09 RESPIRATORY ABNORM NEC 06/30/2016 Ot 786.50 CHEST PAIN NOS 06/30/2016 Ot 368.9 VISUAL DISTURBANCE NOS 06/30/2016 Ot 401.9 HYPERTENSION NOS 06/30/2016 Ot 435.9 TRANS CEREB ISCHEMIA NOS 06/30/2016 Ot 780.39 OTHER CONVULSIONS 06/30/2016 Ot 794.09 ABN EPITAXIAL REACTOR TECHNICIAN FUNCT STUDY NEC 06/30/2016 Ot 794.8 ABN LIVER FUNCTION STUDY 06/30/2016 Ot 368.9 VISUAL DISTURBANCE NOS 06/30/2016 Ot 780.2 SYNCOPE AND COLLAPSE 06/30/2016 Ot 780.79 OTH MALAISE FATIGUE 06/30/2016 Ot 786.2 COUGH 06/30/2016 Ot 786.50 CHEST PAIN NOS 06/30/2016 AMELIA WRIGHT, PASTOR Blank Ot 794.09 ABN EPITAXIAL REACTOR TECHNICIAN FUNCT STUDY NEC 06/30/2016 AMELIA WRIGHT, PASTOR Blank Ot 783.1 ABNORMAL WEIGHT GAIN 06/30/2016 AMELIA WRIGHT, PASTOR Blank Ot 787.3 FLATUL/ERUCTAT/GAS PAIN 06/30/2016 AMELIA WRIGHT, PASTOR Blank Ot 789.09 ABDOMINAL PAIN, OTHER SPECIFIED SITE 06/30/2016 AMELIA WRIGHT, PASTOR Blank Ot 789.1 HEPATOMEGALY 06/30/2016 PASTOR CISNEROS MD Ot 723.1 CERVICALGIA 06/30/2016 PASTOR CISNEROS MD Ot 729.5 PAIN IN LIMB 06/30/2016 PASTOR CISNEROS MD Ot 719.40 JOINT PAIN-UNSPEC 06/30/2016 PASTOR CISNEROS MD Ot 780.79 OTH MALAISE FATIGUE 06/30/2016 PASTOR CISNEROS MD Ot 782.3 EDEMA 06/30/2016 PASTOR CISNEROS MD Ot 785.0 TACHYCARDIA NOS 06/30/2016 PASTOR CISNEROS MD Ot 719.40 JOINT PAIN-UNSPEC 06/30/2016 PASTOR CISNEROS MD Ot 780.79 OTH MALAISE FATIGUE 06/30/2016 PASTOR CISNEROS MD Ot 782.3 EDEMA 06/30/2016 PASTOR CISNEROS MD Ot 785.0 TACHYCARDIA NOS 06/30/2016 PASTOR CISNEROS MD Ot 305.1 TOBACCO USE DISORDER 06/30/2016 PASTOR CISNEROS MD Ot 401.9 HYPERTENSION NOS 06/30/2016 PASTOR CISNEROS MD Ot 428.0 CONGESTIVE HEART FAILURE NOS 06/30/2016 PASTOR CISNEROS MD Ot 782.3 EDEMA 06/30/2016 PASTOR CISNEROS MD Ot 785.0 TACHYCARDIA NOS 06/30/2016 PASTOR CISNEROS MD Ot 786.50 CHEST PAIN NOS 06/30/2016 SULEMA HUDSON MD Ot 397.0 TRICUSPID VALVE DISEASE 06/30/2016 SULEMA HUDSON MD Ot 401.9 HYPERTENSION NOS 06/30/2016 SULEMA HUDSON MD Ot 424.0 MITRAL VALVE DISORDER 06/30/2016 SULEMA HUDSON MD Ot 786.50 CHEST PAIN NOS 06/30/2016 SULEMA HUDSON MD Ot 401.9 HYPERTENSION NOS 06/30/2016 SULEMA HUDSON MD Ot 786.50 CHEST PAIN NOS 06/30/2016 PASTOR CISNEROS MD Ot 251.2 HYPOGLYCEMIA NOS 06/30/2016 PASTOR CISNEROS MD Ot 790.29 OTHER ABNORMAL GLUCOSE 06/30/2016 PASTOR CISNEROS MD Ot 780.39 OTHER CONVULSIONS 06/30/2016 PASTOR CISNEROS MD Ot 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 06/30/2016 PASTOR CISNEROS MD Ot 780.97 ALTERED MENTAL STATUS 06/30/2016 PASTOR CISNEROS MD Ot 781.99 NERV/MUSCULOSKEL SYS SYMP NEC 06/30/2016 PASTOR CISNEROS MD Ot 530.81 ESOPHAGEAL REFLUX 06/30/2016 PASTOR CISNEROS MD Ot 553.3 DIAPHRAGMATIC HERNIA 06/30/2016 PASTOR CISNEROS MD Ot 787.20 DYSPHAGIA, UNSPECIFIED 06/30/2016 YUKO GARRETT MD Ot 401.9 HYPERTENSION NOS 06/30/2016 YUKO GARRETT MD Ot 785.0 TACHYCARDIA NOS 06/30/2016 YUKO GARRETT MD Ot 785.1 PALPITATIONS 06/30/2016 YUKO GARRETT MD Ot 786.05 SHORTNESS OF BREATH 06/30/2016 JACOB NEWSOME MD Ot 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 06/30/2016 JACOB NEWSOME MD Ot 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 06/30/2016 JACOB NEWSOME MD Ot 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 06/30/2016 JACOB NEWSOME MD Ot 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 06/30/2016 YUKO GARRETT MD Ot I10 ESSENTIAL (PRIMARY) HYPERTENSION 06/30/2016 YUKO GARRETT MD Ot R00.2 PALPITATIONS 06/30/2016 YUKO GARRETT MD Ot R06.02 SHORTNESS OF BREATH 06/30/2016 YUKO GARRETT MD Ot R07.89 OTHER CHEST PAIN 06/30/2016 PASTOR CISNEROS MD Ot E11.9 TYPE 2 DIABETES MELLITUS WITHOUT COMPLIC 06/30/2016 PASTOR CISNEROS MD Ot Z79.4 CUSTODIAL (CURRENT) USE OF INSULIN 06/30/2016 PASTOR CISNEROS MD Ot E11.9 TYPE 2 DIABETES MELLITUS WITHOUT COMPLIC 06/30/2016 PASTOR CISNEROS MD Ot E66.9 OBESITY, UNSPECIFIED 06/30/2016 PASTOR CISNEROS MD Ot I73.9 PERIPHERAL VASCULAR DISEASE, UNSPECIFIED 06/30/2016 PASTOR CISNEROS MD Ot Z86.73 PRSNL HX OF TIA (TIA), AND CEREB INFRC W 06/30/2016 PASTOR CISNEROS MD Ot E11.9 TYPE 2 DIABETES MELLITUS WITHOUT COMPLIC 06/30/2016 PASTOR CISNEROS MD Ot M79.662 PAIN IN LEFT LOWER LEG 06/30/2016 PASTOR CISNEROS MD Ot R51 HEADACHE 06/30/2016 GILBERT GOMEZ MD Ot 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) THROMBOCYTHEMIA 06/30/2016 GILBERT GOMEZ MD, Ot D68.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 06/30/2016 GILBERT GOMEZ MD, Ot D72.829 ELEVATED WHITE BLOOD CELL COUNT, UNSPECI 06/30/2016 GILBERT GOMEZ MD, Ot E78.5 HYPERLIPIDEMIA, UNSPECIFIED 06/30/2016 GILBERT GOMEZ MD Ot F17.210 NICOTINE DEPENDENCE, CIGARETTES, UNCOMPL 06/30/2016 GILBERT GOMEZ MD Ot I10 ESSENTIAL (PRIMARY) HYPERTENSION 06/30/2016 GILBERT GOMEZ MD, Ot Z79.02 BUSINESS MGR (CURRENT) USE OF ANTITHROMBOTI 06/30/2016 GILBERT GOMEZ MD, Ot Z79.82 CUSTODIAL (CURRENT) USE OF ASPIRIN 06/30/2016 GILBERT GOMEZ MD, Ot 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) THROMBOCYTHEMIA 06/30/2016 GILBERT GOMEZ MD, Ot D72.829 ELEVATED WHITE BLOOD CELL COUNT, UNSPECI 06/30/2016 GILBERT GOMEZ MD, Ot E78.5 HYPERLIPIDEMIA, UNSPECIFIED 06/30/2016 GILBERT GOMEZ MD, Ot I10 ESSENTIAL (PRIMARY) HYPERTENSION 06/30/2016 GILBERT GOMEZ MD Ot 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 06/30/2016 GILBERT GOMEZ MD, Ot I69.998 OTHER SEQUELAE FOLLOWING UNSPECIFIED CER 06/30/2016 GILBERT GOMEZ MD, Ot M62.81 MUSCLE WEAKNESS (GENERALIZED) 06/30/2016 GILBERT GOMEZ MD Ot R00.0 TACHYCARDIA, UNSPECIFIED 06/30/2016 GILBERT GOMEZ MD Ot Z79.899 OTHER BUSINESS MGR (CURRENT) DRUG THERAPY 07/09/2016 GILBERT GOMEZ MD, Ot 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) THROMBOCYTHEMIA 07/09/2016 GILBERT GOMEZ MD, Ot D72.829 ELEVATED WHITE BLOOD CELL COUNT, UNSPECI 07/09/2016 GILBERT GOMEZ MD, Ot E78.5 HYPERLIPIDEMIA, UNSPECIFIED 07/09/2016 GILBERT GOMEZ MD Ot I10 ESSENTIAL (PRIMARY) HYPERTENSION 07/09/2016 GILBERT GOMEZ MD, Ot 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 07/09/2016 GILBERT GOMEZ MD Ot I69.998 OTHER SEQUELAE FOLLOWING UNSPECIFIED CER 07/09/2016 GILBERT GOMEZ MD, Ot M62.81 MUSCLE WEAKNESS (GENERALIZED) 07/09/2016 GILBERT GOMEZ MD Ot R00.0 TACHYCARDIA, UNSPECIFIED 07/09/2016 GILBERT GOMEZ MD Ot Z79.899 OTHER CUSTODIAL (CURRENT) DRUG THERAPY 08/02/2016 GILBERT GOMEZ MD Ot R42 DIZZINESS AND GIDDINESS 08/02/2016 GILBERT GOMEZ MD Ot R51 HEADACHE 08/16/2016 PRISCILLA HUNT Ot E11.9 TYPE 2 DIABETES MELLITUS WITHOUT COMPLIC 08/16/2016 PRISCILLA HUNT Ot F17.210 NICOTINE DEPENDENCE, CIGARETTES, UNCOMPL 08/16/2016 PRISCILLA HUNT Ot I10 ESSENTIAL (PRIMARY) HYPERTENSION 08/16/2016 PRISCILLA HUNT Ot N30.01 ACUTE CYSTITIS WITH HEMATURIA 08/16/2016 PRISCILLA HUNT Ot R31.0 GROSS HEMATURIA 08/16/2016 PRISCILLA HUNT Ot Z79.02 CUSTODIAL (CURRENT) USE OF ANTITHROMBOTI 08/16/2016 PRISCILLA HUNT Ot Z79.82 BUSINESS MGR (CURRENT) USE OF ASPIRIN 08/16/2016 PRISCILLA HUNT Ot Z79.899 OTHER BUSINESS MGR (CURRENT) DRUG THERAPY 08/19/2016 PRISCILLA HUNT Ot E11.9 TYPE 2 DIABETES MELLITUS WITHOUT COMPLIC 08/19/2016 PRISCILLA HNUT Ot F17.210 NICOTINE DEPENDENCE, CIGARETTES, UNCOMPL 08/19/2016 PRISCILLA HUNT L Ot I10 ESSENTIAL (PRIMARY) HYPERTENSION 08/19/2016 PRISCILLA HUNT Ot N30.01 ACUTE CYSTITIS WITH HEMATURIA 08/19/2016 PRISCILLA HUNT Ot R31.0 GROSS HEMATURIA 08/19/2016 PRISCILLA HUNT Ot Z79.02 BUSINESS MGR (CURRENT) USE OF ANTITHROMBOTI 08/19/2016 PRISCILLA HUNT Ot Z79.82 BUSINESS MGR (CURRENT) USE OF ASPIRIN 08/19/2016 PRISCILLA HUNT L Ot Z79.899 OTHER BUSINESS MGR (CURRENT) DRUG THERAPY 09/03/2016 GILBERT GOMEZ MD Ot R42 DIZZINESS AND GIDDINESS 09/03/2016 GILBERT GOMEZ MD Ot R51 HEADACHE 09/12/2016 GILBERT GOMEZ MD Ot 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) THROMBOCYTHEMIA 09/12/2016 GILBERT GOMEZ MD Ot D72.829 ELEVATED WHITE BLOOD CELL COUNT, UNSPECI 09/12/2016 GILBERT GOMEZ MD Ot E78.5 HYPERLIPIDEMIA, UNSPECIFIED 09/12/2016 GILBERT GOMEZ MD Ot I10 ESSENTIAL (PRIMARY) HYPERTENSION 09/12/2016 GILBERT GOMEZ MD Ot 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 09/12/2016 GILBERT GOMEZ MD Ot I69.998 OTHER SEQUELAE FOLLOWING UNSPECIFIED CER 09/12/2016 GILBERT GOMEZ MD Ot M62.81 MUSCLE WEAKNESS (GENERALIZED) 09/12/2016 GILBERT GOMEZ MD Ot R00.0 TACHYCARDIA, UNSPECIFIED 09/12/2016 GILBERT GOMEZ MD Ot Z79.899 OTHER BUSINESS MGR (CURRENT) DRUG THERAPY 11/09/2016 AKBAR EVANS MD Ot E11.65 TYPE 2 DIABETES MELLITUS WITH HYPERGLYCE 11/09/2016 AKBAR EVANS MD, Ot E87.8 OTH DISORDERS OF ELECTROLYTE AND FLUID B 11/09/2016 AKBAR EVANS MD Ot F17.210 NICOTINE DEPENDENCE, CIGARETTES, UNCOMPL 11/09/2016 AKBAR EVANS MD, Ot F41.9 ANXIETY DISORDER, UNSPECIFIED 11/09/2016 AKBAR EVANS MD, Ot I10 ESSENTIAL (PRIMARY) HYPERTENSION 11/09/2016 AKBAR EVANS MD, Ot K21.9 GASTRO-ESOPHAGEAL REFLUX DISEASE WITHOUT 11/09/2016 AKBAR EVANS MD, Ot M19.90 UNSPECIFIED OSTEOARTHRITIS, UNSPECIFIED 11/09/2016 AKBAR EVANS MD, Ot R42 DIZZINESS AND GIDDINESS 11/09/2016 AKBAR EVANS MD, Ot Z79.82 CUSTODIAL (CURRENT) USE OF ASPIRIN 11/09/2016 AKBAR EVANS MD, Ot Z80.0 FAMILY HISTORY OF MALIGNANT NEOPLASM OF 11/09/2016 AKBAR EVANS MD, Ot Z82.49 FAMILY HX OF ISCHEM HEART DIS AND OTH DI 11/09/2016 AKBAR EVANS MD, Ot Z86.73 PRSNL HX OF TIA (TIA), AND CEREB INFRC W 11/09/2016 AKBAR EVANS MD, Ot Z87.19 PERSONAL HISTORY OF OTHER DISEASES OF TH 11/09/2016 AKBAR EVANS MD, Ot Z87.448 PERSONAL HISTORY OF OTHER DISEASES OF UR 11/09/2016 AKBAR EVANS MD, Ot Z87.59 PERSONAL HISTORY OF COMP OF PREG, CHLDBR 11/09/2016 AKBAR EVANS MD, Ot Z98.51 TUBAL LIGATION STATUS 11/11/2016 AKBAR EVANS MD, Ot E11.65 TYPE 2 DIABETES MELLITUS WITH HYPERGLYCE 11/11/2016 AKBAR EVANS MD, Ot E87.8 OTH DISORDERS OF ELECTROLYTE AND FLUID B 11/11/2016 AKBAR EVANS MD, Ot F17.210 NICOTINE DEPENDENCE, CIGARETTES, UNCOMPL 11/11/2016 AKBAR EVANS MD, Ot F41.9 ANXIETY DISORDER, UNSPECIFIED 11/11/2016 AKBAR EVANS MD, Ot I10 ESSENTIAL (PRIMARY) HYPERTENSION 11/11/2016 AKBAR EVANS MD, Ot K21.9 GASTRO-ESOPHAGEAL REFLUX DISEASE WITHOUT 11/11/2016 AKBAR EVANS MD, Ot M19.90 UNSPECIFIED OSTEOARTHRITIS, UNSPECIFIED 11/11/2016 AKBAR EVANS MD, Ot R42 DIZZINESS AND GIDDINESS 11/11/2016 AKBAR EVANS MD, Ot Z79.82 BUSINESS MGR (CURRENT) USE OF ASPIRIN 11/11/2016 AKBAR EVANS MD, Ot Z80.0 FAMILY HISTORY OF MALIGNANT NEOPLASM OF 11/11/2016 AKBAR EVANS MD, Ot Z82.49 FAMILY HX OF ISCHEM HEART DIS AND OTH DI 11/11/2016 AKBAR EVANS MD, Ot Z86.73 PRSNL HX OF TIA (TIA), AND CEREB INFRC W 11/11/2016 AKBAR EVANS MD, Ot Z87.19 PERSONAL HISTORY OF OTHER DISEASES OF TH 11/11/2016 AKBAR EVANS MD, Ot Z87.448 PERSONAL HISTORY OF OTHER DISEASES OF UR 11/11/2016 AKBAR EVANS MD, Ot Z87.59 PERSONAL HISTORY OF COMP OF PREG, CHLDBR 11/11/2016 NATHAN WRIGHT, AKBAR [employer] Ot Z98.51 TUBAL LIGATION STATUS 11/12/2016 JASON WRIGHT, GILBERT Esqueda Ot R42 DIZZINESS AND GIDDINESS 11/12/2016 JASON WRIGHT, GILBERT Esqueda Ot R51 HEADACHE 12/02/2016 IGOR ARANA MD, Ot 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) THROMBOCYTHEMIA 12/02/2016 IGOR ARANA MD, Ot D72.829 ELEVATED WHITE BLOOD CELL COUNT, UNSPECI 12/02/2016 IGOR ARANA MD Ot E78.5 HYPERLIPIDEMIA, UNSPECIFIED 12/02/2016 IGOR ARANA MD, Ot I10 ESSENTIAL (PRIMARY) HYPERTENSION 12/02/2016 IGOR ARANA MD Ot 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 12/02/2016 IGOR ARANA MD Ot I69.998 OTHER SEQUELAE FOLLOWING UNSPECIFIED CER 12/02/2016 IGOR ARANA MD Ot M62.81 MUSCLE WEAKNESS (GENERALIZED) 12/02/2016 IGOR ARANA MD Ot R00.0 TACHYCARDIA, UNSPECIFIED 12/02/2016 IGOR ARANA MD Ot Z79.899 OTHER BUSINESS MGR (CURRENT) DRUG THERAPY 12/21/2016 IGOR ARANA MD Ot 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) THROMBOCYTHEMIA 12/21/2016 IGOR ARANA MD, Ot D72.829 ELEVATED WHITE BLOOD CELL COUNT, UNSPECI 12/21/2016 IGOR RAANA MD Ot E78.5 HYPERLIPIDEMIA, UNSPECIFIED 12/21/2016 IGOR ARANA MD Ot I10 ESSENTIAL (PRIMARY) HYPERTENSION 12/21/2016 IGOR ARANA MD Ot 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 12/21/2016 IGOR ARANA MD Ot I69.998 OTHER SEQUELAE FOLLOWING UNSPECIFIED CER 12/21/2016 IGOR ARANA MD Ot M62.81 MUSCLE WEAKNESS (GENERALIZED) 12/21/2016 IGOR ARANA MD Ot R00.0 TACHYCARDIA, UNSPECIFIED 12/21/2016 IGOR ARANA MD Ot Z79.899 OTHER BUSINESS MGR (CURRENT) DRUG THERAPY 02/11/2017 IGOR ARANA MD, Ot 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) THROMBOCYTHEMIA 02/11/2017 IGOR ARANA MD Ot D72.829 ELEVATED WHITE BLOOD CELL COUNT, UNSPECI 02/11/2017 IGOR ARANA MD Ot E78.5 HYPERLIPIDEMIA, UNSPECIFIED 02/11/2017 IGOR ARANA MD Ot I10 ESSENTIAL (PRIMARY) HYPERTENSION 02/11/2017 IGOR ARANA MD Ot 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 Results Test Result Range Complete urinalysis with reflex to culture - 08/16/16 15:00 Urine color determination RED NRG Urine clarity determination SLIGHTLY CLOUDY NRG Urine pH measurement by test strip 5 5-9 Specific gravity of urine by test strip 1.015 1.016- 1.022 Urine protein assay by test strip, semi-quantitative 2+ NEGATIVE Urine glucose detection by automated test strip 2+ NEGATIVE Erythrocytes detection in urine sediment by light microscopy 4+ NEGATIVE Urine ketones detection by automated test strip NEGATIVE NEGATIVE Urine nitrite detection by test strip POSITIVE NEGATIVE Urine total bilirubin detection by test strip 3+ NEGATIVE Urine urobilinogen measurement by automated test strip (mass/volume) 4 mg/dL NORMAL Urine leukocyte esterase detection by dipstick NEGATIVE NEGATIVE Automated urine sediment erythrocyte count by microscopy (number/high power field) [facility] NRG Automated urine sediment leukocyte count by microscopy (number/high power field ) [HPF] NRG Bacteria detection in urine sediment by light microscopy FEW NRG Squamous epithelial cells detection in urine sediment by light microscopy 10-25 NRG Crystals detection in urine sediment by light microscopy NONE NRG Casts detection in urine sediment by light microscopy NONE NRG Mucus detection in urine sediment by light microscopy NEGATIVE NRG Complete urinalysis with reflex to culture YES NRG Bacterial urine culture - 08/16/16 15:00 Bacterial urine culture [id number] NRG COLONY COUNT 10,000/ML - 100,000/ML NRG FTX;REPORTABLE SENSITIVITY REPORTED 08/17 15:50 NRG FREE TEXT ENTRY 2 PLUS, LACTOBACILLUS 10-100,000/ML NRG FREE TEXT ENTRY 3 MIXED GRAM POSITIVE ASHLYN <10,000/ML NRG Bacterial susceptibility panel - 08/16/16 15:00 Gentamicin susceptibility test by minimum inhibitory concentration < = NRG Trimethoprim/sulfamethoxazole susceptibility test by minimum inhibitoryconcentration <= NRG Ampicillin susceptibility test by minimum inhibitory concentration > = NRG Tobramycin susceptibility test by minimum inhibitory concentration < = NRG Cefazolin susceptibility test by minimum inhibitory concentration < = NRG Ceftriaxone susceptibility test by minimum inhibitory concentration <= NRG Ampicillin/sulbactam susceptibility test by minimum inhibitory concentration 4 NRG Piperacillin/tazobactam susceptibility test by minimum inhibitory concentration <= NRG Ciprofloxacin susceptibility test by minimum inhibitory concentration <= NRG Meropenem susceptibility test by minimum inhibitory concentration < = NRG Nitrofurantoin susceptibility test by minimum inhibitory concentration 64 NRG Aztreonam susceptibility test by minimum inhibitory concentration < = NRG Extended spectrum beta lactamase (ESBL) producing bacteria susceptibility test by minimum inhibitory concentration - NRG Complete blood count (CBC) with automated white blood cell (WBC) differential - 11/09/16 20:30 Blood leukocytes automated count (number/volume) 11.5 10*3/uL 4.3-11.0 Blood erythrocytes automated count (number/volume) 4.62 10*6/uL 4.35-5.85 Venous blood hemoglobin measurement (mass/volume) 14.3 g/dL 11.5-16.0 Blood hematocrit (volume fraction) 45 % 35-52 Automated erythrocyte mean corpuscular volume 97 [foz_us] 80-99 Automated erythrocyte mean corpuscular hemoglobin (mass per erythrocyte) 31 pg 25-34 Automated erythrocyte mean corpuscular hemoglobin concentration measurement ( mass/volume) 32 g/dL 32-36 Automated erythrocyte distribution width ratio 14.2 % 10.0-14.5 Automated blood platelet count (count/volume) 353 10*3/uL 130-400 Automated blood platelet mean volume measurement 11.2 [foz_us] 7.4-10.4 Automated blood neutrophils/100 leukocytes 58 % 42-75 Automated blood lymphocytes/100 leukocytes 33 % 12-44 Blood monocytes/100 leukocytes 8 % 0-12 Automated blood eosinophils/100 leukocytes 1 % 0-10 Automated blood basophils/100 leukocytes 0 % 0-10 Blood neutrophils automated count (number/volume) 6.7 10*3 1.8-7.8 Blood lymphocytes automated count (number/volume) 3.8 10*3 1.0-4.0 Blood monocytes automated count (number/volume) 0.9 10*3 0.0-1.0 Automated eosinophil count 0.1 10*3/uL 0.0-0.3 Automated blood basophil count (count/volume) 0.1 10*3/uL 0.0-0.1 Comprehensive metabolic panel - 11/09/16 20:30 Serum or plasma sodium measurement (moles/volume) 136 mmol/L 135-145 Serum or plasma potassium measurement (moles/volume) 3.4 mmol/L 3.6-5.0 Serum or plasma chloride measurement (moles/volume) 96 mmol/L 98-107 Carbon dioxide 28 mmol/L 21-32 Serum or plasma anion gap determination (moles/volume) 12 mmol/L 5-14 Serum or plasma urea nitrogen measurement (mass/volume) 8 mg/dL 7-18 Serum or plasma creatinine measurement (mass/volume) 0.74 mg/dL 0.60-1.30 Serum or plasma urea nitrogen/creatinine mass ratio 11 NRG Serum or plasma creatinine measurement with calculation of estimated glomerular filtration rate > NRG Serum or plasma glucose measurement (mass/volume) 325 mg/dL 70-105 Serum or plasma calcium measurement (mass/volume) 8.9 mg/dL 8.5-10.1 Serum or plasma total bilirubin measurement (mass/volume) 0.5 mg/dL 0.1-1.0 Serum or plasma alkaline phosphatase measurement (enzymatic activity/volume) 95 U/L 40-136 Serum or plasma aspartate aminotransferase measurement (enzymatic activity/ volume) 63 U/L 5-34 Serum or plasma alanine aminotransferase measurement (enzymatic activity/volume ) 53 U/L 0-55 Serum or plasma protein measurement (mass/volume) 6.8 g/dL 6.4-8.2 Serum or plasma albumin measurement (mass/volume) 3.8 g/dL 3.2-4.5 Magnesium - 11/09/16 20:30 Magnesium 1.7 mg/dL 1.8-2.4 Serum or plasma troponin i.cardiac measurement (mass/volume) - 11/09/16 20:30 Serum or plasma troponin i.cardiac measurement (mass/volume) < ng/ mL <0.30 Complete urinalysis with reflex to culture - 11/09/16 23:08 Urine color determination DILIP NRG Urine clarity determination CLEAR NRG Urine pH measurement by test strip 5 5-9 Specific gravity of urine by test strip 1.020 1.016- 1.022 Urine protein assay by test strip, semi-quantitative 1+ NEGATIVE Urine glucose detection by automated test strip 3+ NEGATIVE Erythrocytes detection in urine sediment by light microscopy NEGATIVE NEGATIVE Urine ketones detection by automated test strip NEGATIVE NEGATIVE Urine nitrite detection by test strip NEGATIVE NEGATIVE Urine total bilirubin detection by test strip NEGATIVE NEGATIVE Urine urobilinogen measurement by automated test strip (mass/volume) NORMAL NORMAL Urine leukocyte esterase detection by dipstick 1+ NEGATIVE Automated urine sediment erythrocyte count by microscopy (number/high power field) NONE NRG Automated urine sediment leukocyte count by microscopy (number/high power field ) [HPF] NRG Bacteria detection in urine sediment by light microscopy FEW NRG Squamous epithelial cells detection in urine sediment by light microscopy 5-10 NRG Crystals detection in urine sediment by light microscopy NONE NRG Casts detection in urine sediment by light microscopy NONE NRG Mucus detection in urine sediment by light microscopy SMALL NRG Complete urinalysis with reflex to culture NO NRG Encounters ACCT No. Visit Date/Time Discharge Status Pt. Type Provider Facility Loc./Unit Complaint [id number] 12/20/2016 15:01:00 12/20/2016 23:59:59 CLS Outpatient IGOR ARANA MD [facility] ONC [id number] 11/09/2016 20:08:00 11/09/2016 23:58:00 DIS Emergency AKBAR EVANS MD [facility] ER DIZZINESS,NAUSEA [id number] 06/29/2016 15:16:00 09/12/2016 00:01:00 DIS Outpatient GILBERT GOMEZ MD [facility] ONC [id number] 08/16/2016 13:54:00 08/16/2016 16:50:00 DIS Emergency PRISCILLA HUNT [facility] ER UTI [id number] 07/02/2016 10:14:00 07/02/2016 23:59:59 CLS Outpatient GILBERT GOMEZ MD [facility] RAD HEADACHE,DIZZINESS [id number] 12/18/2015 09:01:00 03/17/2016 00:01:00 DIS Outpatient GILBERT GOMEZ MD [facility] ONC [id number] 09/18/2015 12:52:00 10/29/2015 00:01:00 DIS Outpatient GILBERT GOMEZ MD [facility] ONC [id number] 09/12/2015 20:37:00 2015 01:00:00 DIS Emergency JOSE ADLER DO [facility] ER DIZZINESS [id number] 09/10/2015 01:28:00 09/10/2015 03:57:00 DIS Emergency NATHAN WRIGHT, AKBAR Solis [facility] ER RUSSELL,BLURRY EYES,BLOOD SUGAR HIGH,DIZZY [id number] 07/24/2015 09:02:00 07/24/2015 23:59:59 CLS Outpatient GILBERT GOMEZ MD [facility] ONC [id number] 05/23/2015 23:06:00 05/24/2015 00:31:00 DIS Emergency RONAN SOTO MD [facility] ER FULL BODY TINGLING/ NUMBNESS [id number] 05/22/2015 13:58:00 05/22/2015 16:11:00 DIS Emergency THELMA FARAH APRN [facility] ER DIZZINESS LIPS NUMBNESS [id number] 04/28/2015 11:14:00 04/28/2015 23:59:59 CLS Outpatient PASTOR CISNEROS MD [facility] RAD CALF PAIN,HEADACHES, DIABETES [id number] 03/28/2015 22:08:00 03/28/2015 23:59:59 CLS Emergency JOSE ADLER DO [facility] ER DIZZINESS,FACIAL NUMBNESS [id number] 03/24/2015 10:00:00 03/24/2015 23:59:59 [facility] [id number] 12/23/2014 17:00:00 03/23/2015 00:01:00 DIS Outpatient PASTOR CISNEROS MD [facility] DSME TYPE 2 DIABETES [id number] 03/21/2015 10:24:00 03/21/2015 23:59:59 CLS Outpatient PASTOR CISNEROS MD [facility] LAB TYPE 2 DIABETES INSULIN DEPENDENT [id number] 01/15/2015 08:11:00 01/15/2015 23:59:59 CLS Outpatient YUKO GARRETT MD [facility] CARD CPS,HTN,PALPITATIONS, SOB [id number] 12/02/2014 10:00:00 12/18/2014 00:01:00 DIS Outpatient PASTOR CISNEROS MD [facility] DSME TYPE 2 DIABETES [id number] 07/25/2014 08:49:00 10/23/2014 00:01:00 DIS Outpatient GILBERT GOMEZ MD [facility] ONC [id number] 08/27/2014 15:20:00 08/27/2014 23:59:59 CLS Outpatient JACOB NEWSOME MD [facility] RAD FOLLOW UP PER RADIOLOGIST [id number] 08/26/2014 12:47:00 08/26/2014 23:59:59 CLS Outpatient JACOB NEWSOME MD [facility] RAD CEREBRAL ATHEROSCLEROSIS [id number] 07/23/2014 20:00:00 07/23/2014 23:59:59 CLS Preadmit YUKO GARRETT MD [facility] SLEEP SNORING,HTN,HX OF STROKE [id number] 07/18/2014 11:36:00 07/18/2014 15:39:00 DIS Emergency AKBAR EVANS MD [facility] ER DIZZINESS,NAUSEA [id number] 06/17/2014 08:15:00 06/17/2014 23:59:59 CLS Outpatient YUKO GARRETT MD [facility] CARD PALPITATIONS SOB HTN [id number] 01/24/2014 08:49:00 04/24/2014 00:01:00 DIS Outpatient GILBERT GOMEZ MD [facility] ONC [id number] 02/13/2014 10:00:00 03/29/2014 16:22:00 DIS Outpatient PASTOR CISNEROS MD [facility] REHAB CVA [id number] 11/22/2013 09:41:00 01/14/2014 00:01:00 DIS Outpatient PASTOR CISNEROS MD [facility] REHAB CVA [id number] 10/25/2013 10:49:00 01/09/2014 00:01:00 DIS Outpatient GILBERT GOMEZ MD [facility] ONC [id number] 12/18/2013 09:18:00 12/18/2013 23:59:59 CLS Outpatient PASTOR CISNEROS MD [facility] RAD CHOKING,TROUBLE SWALLOWING [id number] 12/14/2013 19:01:00 12/14/2013 20:23:00 DIS Emergency BRITTANY WRIGHT, RONAN Luna [facility] ER CONGESTION [id number] 10/04/2013 13:16:00 10/04/2013 23:59:59 CLS Outpatient PASTOR CISNEROS MD [facility] RAD NEUROLOGICAL CHANGES, RECENT STROKE [id number] 09/24/2013 18:13:00 09/28/2013 13:30:00 DIS Inpatient MICHELLE WRIGHT, SILVIA E [facility] IRF CVA [id number] 09/15/2013 14:10:00 09/18/2013 12:35:00 DIS Outpatient PASTOR CISNEROS MD [facility] SDC VERTIGO [id number] 09/07/2013 08:36:00 09/07/2013 23:59:59 CLS Outpatient PASTOR CISNEROS MD [facility] RT SEIZURE TYPE ACTIVITY [id number] 07/03/2013 12:37:00 07/03/2013 23:59:59 CLS Outpatient SULEMA HUDSON MD [facility] CARD CP,HTN [id number] 06/20/2013 08:30:00 06/20/2013 23:59:59 CLS Outpatient PASTOR CISNEROS MD [facility] LAB HYPOGLYCEMIA,FLUXUATING BLOOD SUGAR [id number] 06/08/2013 09:00:00 06/08/2013 23:59:59 CLS Outpatient SULEMA HUDSON MD [facility] CARD CP,HTN [id number] 05/21/2013 14:03:00 05/21/2013 23:59:59 CLS Outpatient PASTOR CISNEROS MD [facility] CARD HYPERTENSION,PERIPHERD EDEMA,SMOKER,CARDIMEGALY,CH [id number] 05/17/2013 21:44:00 05/17/2013 23:59:59 CLS Outpatient PASTOR CISNEROS MD [facility] LAB LIPID PANEL [id number] 05/17/2013 12:24:00 05/17/2013 23:59:59 CLS Outpatient PASTOR CISNEROS MD [facility] LAB EDEMA,FATIGUE,TACHYCARDIA ,JOINT PAIN [id number] 02/02/2013 14:11:00 02/23/2013 10:40:00 DIS Outpatient PASTOR CISNEROS MD [facility] REHAB NECK PAIN, UPPER BACK PAIN RADIATING LEFT SHOULDER [id number] 10/31/2012 14:21:00 10/31/2012 23:59:59 CLS Outpatient PASTOR CISNEROS MD [facility] RAD NECK PAIN,TENDERNESS RADIATING FROM ARM TO BACK OF [id number] 09/04/2012 08:56:00 09/04/2012 23:59:59 CLS Outpatient PASTOR CISNEROS MD [facility] RAD ABD PAIN,BLOATING R. SIDED FIRMNESS [id number] 09/01/2012 09:16:00 09/01/2012 10:45:00 DIS Out[facility]; MULTIPLE SCLEROSIS [id number] 07/18/2012 08:50:00 07/18/2012 23:59:59 CLS Outpatient PASTOR CISNEROS MD [facility] RAD FOLLOW UP ABD MRI [id number] 08/26/2014 12:46:00 Document Registration [id number] 05/19/2014 09:39:00 Document Registration [id number] 05/11/2014 19:49:00 Document Registration [id number] 06/26/2012 11:26:00 Document Registration [id number] 05/19/2012 09:58:00 Document Registration [id number] 04/20/2012 12:51:00 Document Registration [id number] 01/04/2012 12:04:00 Document Registration [id number] 12/31/2011 08:48:00 Document Registration [id number] 11/22/2011 22:34:00 Document Registration [id number] 10/08/2011 22:58:00 Document Registration [id number] 10/07/2011 13:12:00 Document Registration [id number] 07/26/2011 14:37:00 Document Registration [id number] 04/05/2011 08:01:00 Document Registration [id number] 02/03/2011 11:11:00 Document Registration [id number] 02/01/2011 11:54:00 Document Registration [id number] 12/08/2010 08:13:00 Document Registration [id number] 08/25/2009 10:44:00 Document Registration
--- NOTE | 2017-03-12 13:05 | ED General ---
General Chief Complaint: Dizziness/Syncope Stated Complaint: ABD PAIN, SHAKY, 4 PREVIOUS BRAIN-STEM FLORES Nursing Triage Note: Pt presents to ED with c/o dizziness, nausea, epigastric pain, and 1 episode of loose stool that began several days ago. Nursing Sepsis Screen: No Definite Risk Source of Information: Patient Exam Limitations: No Limitations History of Present Illness Time Seen by Provider: 13:04 Initial Comments 46-year-old female patient presents to the emergency department with complaints of dizziness, nausea, epigastric pain, and one episode of diarrhea beginning 3 days ago. Patient reports chronic dizziness and headache since she was diagnosed with having previous CVAs. Patient sees Vianney Neil APRN at [facility]. Patient recently was diagnosed with pneumonia and was given a Z-Noah followed by doxycycline. Patient reports they were on their way home from [place] when she decided she wanted to come to the emergency department to be evaluated. Patient reports a chronically dry mouth. Denies drinking much and only has 1-2 cups of ice and drinks 1 mountain dew daily. Blood sugars "have been good" per the patient. Location Injury Occurred: denies injury Timing/Duration: Other (chronic dizziness and headache, worse the last 3 days ago.) Modifying Factors: worse with Other (denies taking any OTC meds for symptoms. Dizziness worse with standing up.) Allergies and Home Medications Allergies Coded Allergies: erythromycin base (Unverified Allergy, Mild, 11/11/08) Penicillins (Verified Allergy, Unknown, 11/14/08) codeine (Verified Allergy, Unknown, 11/14/08) Home Medications Acetaminophen 325 Mg Tab, 650 MG PO Q4H PRN for mild pain or fever for 30 Days Prescribed by: ERNESTO SY on 09/28/1332 Aspirin 81 Mg Tablet.dr, 81 MG PO DAILY, (Reported) Atorvastatin Calcium 80 Mg Tablet, 80 MG PO HS, #30 Prescribed by: CELIA ISAACS on 09/24/13 1850 Bisacodyl 10 Mg Supp, 10 MG VT DAILY PRN for CONSTIPATION for 30 Days Prescribed by: ERNESTO SY on 09/28/13 0932 Clopidogrel Bisulfate 75 Mg Tablet, 1 EACH PO DAILY, #30 Prescribed by: CELIA ISAACS on 09/24/13 1850 Diltiazem Hcl 30 Mg Tab, 30 MG PO Q8HR for 30 Days Prescribed by: ERNESTO SY on 09/28/13 0932 Hydrochlorothiazide 12.5 Mg Cap, 25 MG PO DAILY, (Reported) Hydrocodone Bit/Acetaminophen 1 Each Tablet, 1 EACH PO NEEDED, (Reported) Melatonin/Pyridoxine Hcl (B6) 1 Each Tab.mphase, 1 EACH PO HS, (Reported) Metoprolol Tartrate 25 Mg Tablet, 25 MG PO BID for 30 Days Prescribed by: ERNESTO SY on 09/28/13 0932 Nitrofurantoin Monohyd/M-Cryst 100 Mg Capsule, 1 TAB PO BID, #20 Ref 0 Prescribed by: PRISCILLA QUINN on 08/16/16 1644 Nystatin 60 Ml Btl, 5 ML PO Q6H for 5 Days swish and swallow QID x5 days Prescribed by: THELMA FARAH on 05/11/14 2018 Omeprazole 40 Mg Capsule.dr, 40 MG PO DAILY, (Reported) Ondansetron 4 Mg Tab.rapdis, 4 MG SL Q4H PRN for NAUSEA/VOMITING, #10 Prescribed by: AKBAR BARROW on 09/10/15 0349 Ondansetron Hcl 4 Mg Tab, 4 MG SL Q4H, #10 FOR NAUSEA AND VOMITING Prescribed by: BLAIR DANIELS on 05/19/14 1128 Phenazopyridine HCl 200 Mg Tablet, 1 TAB PO Q8H PRN for in, #30 Ref 0 Prescribed by: PRISCILLA QUINN on 08/16/16 1644 Polyethylene Glycol 17 Gm Pack, 17 GM PO DAILY PRN for CONSTIPATION, #30 Prescribed by: CELIA ISAACS on 09/24/13 1850 Senna 1 Ea Tablet, 1 EA PO BID for 30 Days Prescribed by: ERNESTO SY on 09/28/13 0932 Constitutional: see HPI, No chills, dizziness, No fever, No malaise, No weakness EENTM: no symptoms reported Respiratory: No cough, No dyspnea on exertion, No phlegm, No short of breath, No stridor, No wheezing Cardiovascular: No chest pain, No palpitations, No syncope Gastrointestinal: see HPI, No abdominal pain, No constipation, diarrhea, No hematemesis, No melena, nausea, No vomiting Genitourinary: No dysuria, No frequency, No hematuria, No pain Musculoskeletal: no symptoms reported Skin: no symptoms reported Psychiatric/Neurological: See HPI, Headache, Denies Numbness, Denies Paresthesia, Denies Seizure, Denies Tingling, Denies Tremors, Denies Weakness All Other Systems Reviewed Negative Unless Noted: Yes (Negative excepted noted.) Past Aqspgfy-Uhbwkm-Brbvvo Hx Patient Social History Alcohol Use: Denies Use Recreational Drug Use: No Smoking Status: Current Everyday Smoker Type Used: Cigarettes 2nd Hand Smoke Exposure: No Recent Foreign Travel: No Contact w/Someone Who Travel: No Recent Infectious Disease Expo: No Recent Hopitalizations: No Physical Abuse: No Sexual Abuse: No Mistreated: No Fear: No Immunizations Up To Date Tetanus Booster (TDap): Unknown PED Vaccines UTD: No Date of Influenza Vaccine: Jan 07, 2017 Seasonal Allergies Seasonal Allergies: No Surgeries History of Surgeries: Yes Surgeries: Section, Gallbladder, Tubal Ligation Respiratory History of Respiratory Disorde: No (Tobaccoism) Cardiovascular History of Cardiac Disorders: Yes Cardiac Disorders: Hypertension, Irregular Heartbeat Neurological History of Neurological Disord: Yes Neurological Disorders: Headaches /Migraines, Stroke, Vertigo Reproductive System Hx Reproductive Disorders: Yes Sexually Transmitted Disease: No Female Reproductive Disorders: Endometriosis TRACK FITTER History: Tubal Ligation, Menopausal Genitourinary History of Genitourinary Disor: No Gastrointestinal History of Gastrointestinal Di: Yes Gastrointestinal Disorders: Gastroesophageal Reflux, Hiatal Hernia, Gall Bladder Disease Musculoskeletal History of Musculoskeletal Dis: Yes Musculoskeletal Disorders: Arthritis Endocrine History of Endocrine Disorders: No Endocrine Disorders: Diabetes, Insulin dep, Diabetes, Non-Insulin dep HEENT History of HEENT Disorders: No Cancer History of Cancer: No Psychosocial History of Psychiatric Problem: Yes Behavioral Health Disorders: Anxiety Suicide Risk Score: 1 Integumentary History of Skin or Integumenta: No Blood Transfusions History of Blood Disorders: Yes ("CLOTTING DISORDER", chronic leukocytosis) Adverse Reaction to a Blood Tr: No Reviewed Nursing Assessment Reviewed/Agree w Nursing PMH: Yes Family Medical History Significant Family History: Heart Disease, Hypertension, Stroke Family Medial History: Cancer 19 MOTHER (THROAT CANCER) Family history: Hypertension 19 MOTHER History of - disorder G8 SISTER (SISTER HAD MS) Myocardial infarction 19 FATHER 19 MOTHER Stroke 19 MOTHER Physical Exam Vital Signs Vital Sign - Last 12Hours 03/12/17 12:35 Temp 97.6 Pulse 83 Resp 18 B/P (MAP) 127/81 (96) Pulse Ox 94 O2 Delivery Room Air Capillary Refill : Less Than 3 Seconds General Appearance: No Apparent Distress, WD/WN Eyes: Bilateral Eye Normal Inspection, Bilateral Eye PERRL, Bilateral Eye EOMI HEENT: PERRL/EOMI, TMs Normal, Normal ENT Inspection, Pharynx Normal, Other ( mucosal membranes dry) Neck: Full Range of Motion, Normal Inspection, Supple, Tender Lateral (muscle spasm with tenderness of the rt posterolateral neck.), No Tender Midline Respiratory: Chest Non Tender, Lungs Clear, Normal Breath Sounds, No Accessory Muscle Use, No Respiratory Distress Cardiovascular: Regular Rate, Rhythm, No Edema, No Murmur, Normal Peripheral Pulses Gastrointestinal: Normal Bowel Sounds, No Organomegaly, Soft, No Distended, No Guarding, No Mass, No Rebound, Tenderness (mild epigastric tenderness.) Back: Normal Inspection Extremity: Normal Capillary Refill, No Calf Tenderness, No Pedal Edema Neurologic/Psychiatric: Alert, Oriented x3, No Motor/Sensory Deficits, Normal 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 negative romberg. normal gait. ) Skin: Normal Color, Warm/Dry Progress/Results/Core Measures Suspected Sepsis Recent Fever Within 48 Hours: No Infection Criteria Present: Suspected New Infection New/Unexplained Altered Menta: No Sepsis Screen: No Definite Risk Sepsis Diagnosis: SIRS Temperature:97.6 Pulse: 83 Respiratory Rate: 18 Laboratory Tests 03/12/17 12:42: White Blood Count 11.9H Blood Pressure 127 /81 Mean: 96 Laboratory Tests 03/12/17 12:42: Creatinine 0.66, Platelet Count 322, Total Bilirubin 0.7 Results/Orders Lab Results Laboratory Tests Test 03/12/17 12:42 03/12/17 14:30 Range/Units White Blood Count 11.9 H 4.3-11.0 10^3/uL Red Blood Count 4.98 4.35-5.85 10^6/uL Hemoglobin 15.5 11.5-16.0 G/DL Hematocrit 48 35-52 % Mean Corpuscular Volume 96 80-99 FL Mean Corpuscular Hemoglobin 31 25-34 PG Mean Corpuscular Hemoglobin Concent 32 32-36 G/DL Red Cell Distribution Width 13.7 10.0-14.5 % Platelet Count 322 130-400 10^3/uL Mean Platelet Volume 11.0 H 7.4-10.4 FL Neutrophils (%) (Auto) 64 42-75 % Lymphocytes (%) (Auto) 27 12-44 % Monocytes (%) (Auto) 8 0-12 % Eosinophils (%) (Auto) 1 0-10 % Basophils (%) (Auto) 1 0-10 % Neutrophils # (Auto) 7.6 1.8-7.8 X 10^3 Lymphocytes # (Auto) 3.2 1.0-4.0 X 10^3 Monocytes # (Auto) 1.0 0.0-1.0 X 10^3 Eosinophils # (Auto) 0.1 0.0-0.3 10^3/uL Basophils # (Auto) 0.1 0.0-0.1 10^3/uL Sodium Level 139 135-145 MMOL/L Potassium Level 4.0 3.6-5.0 MMOL/L Chloride Level 96 L 98-107 MMOL/L Carbon Dioxide Level 28 21-32 MMOL/L Anion Gap 15 H 5-14 MMOL/L Blood Urea Nitrogen 10 7-18 MG/DL Creatinine 0.66 0.60-1.30 MG/DL Estimat Glomerular Filtration Rate > 60 BUN/Creatinine Ratio 15 Glucose Level 203 H 70-105 MG/DL Calcium Level 9.8 8.5-10.1 MG/DL Total Bilirubin 0.7 0.1-1.0 MG/DL Aspartate Amino Transf (AST/SGOT) 70 H 5-34 U/L Alanine Aminotransferase (ALT/SGPT) 38 0-55 U/L Alkaline Phosphatase 92 40-136 U/L Troponin I < 0.30 <0.30 NG/ML C-Reactive Protein High Sensitivity 1.52 H 0.00-0.50 MG/DL Total Protein 7.9 6.4-8.2 GM/DL Albumin 4.0 3.2-4.5 GM/DL Lipase 58 8-78 U/L TSH [place] Testing 1.52 0.35-4.94 UIU/ML Serum Alcohol 11 H <10 MG/DL Urine Color YELLOW Urine Clarity CLEAR Urine pH 6.5 5-9 Urine Specific [place] 1.015 L 1.016-1.022 Urine Protein 1+ H NEGATIVE Urine Glucose (UA) 1+ H NEGATIVE Urine Ketones NEGATIVE NEGATIVE Urine Nitrite NEGATIVE NEGATIVE Urine Bilirubin NEGATIVE NEGATIVE Urine Urobilinogen NORMAL NORMAL MG/DL Urine Leukocyte Esterase 1+ H NEGATIVE Urine RBC (Auto) NEGATIVE NEGATIVE Urine RBC NONE /HPF Urine WBC NONE /HPF Urine Squamous Epithelial Cells 2-5 /HPF Urine Crystals NONE /LPF Urine Bacteria TRACE /HPF Urine Casts NONE /LPF Urine Mucus NEGATIVE /LPF Urine Culture Indicated NO Urine Opiates Screen NEGATIVE NEGATIVE Urine Oxycodone Screen NEGATIVE NEGATIVE Urine Methadone Screen NEGATIVE NEGATIVE Urine Propoxyphene Screen NEGATIVE NEGATIVE Urine Barbiturates Screen NEGATIVE NEGATIVE Ur Tricyclic Antidepressants Screen NEGATIVE NEGATIVE Urine Phencyclidine Screen NEGATIVE NEGATIVE Urine Amphetamines Screen NEGATIVE NEGATIVE Urine Methamphetamines Screen NEGATIVE NEGATIVE Urine Benzodiazepines Screen POSITIVE H NEGATIVE Urine Cocaine Screen NEGATIVE NEGATIVE Urine Cannabinoids Screen NEGATIVE NEGATIVE My Orders Orders - PRISCILLA QUINN PA Saline Lock/Iv-Start (03/12/17 12:59) Ekg Tracing (03/12/17 12:59) Alcohol (03/12/17 12:59) Cbc With Automated Diff (03/12/17 12:59) Comprehensive Metabolic Panel (03/12/17 12:59) Hs C Reactive Protein (03/12/17 12:59) Drug Screen Stat (Urine) (03/12/17 12:59) Lipase (03/12/17 12:59) Thyroid Analyzer (03/12/17 12:59) Troponin I (03/12/17 12:59) Ua Culture If Indicated (03/12/17 12:59) Ct Head Wo (03/12/17 13:17) Ns Iv 1000 Ml (Sodium Chloride 0.9%) (03/12/17 13:17) Ondansetron Injection (Zofran Injectio (03/12/17 13:30) Chest 1 View, Ap/Pa Only (03/12/17 13:17) Iohexol Injection (Omnipaque 350 Mg/Ml 1 (03/12/17 15:15) Ns (Ivpb) (Sodium Chloride 0.9% Ivpb Bag (03/12/17 15:15) Ct Angio Head/Neck (03/12/17 15:05) Ketorolac Injection (Toradol Injection) (03/12/17 16:13) Orphenadrine Injection (Norflex Injectio (03/12/17 16:13) Medications Given in ED Current Medications Medications Dose Ordered Sig/Lorie Route Start Time Stop Time Status Last Admin Dose Admin Iohexol 75 ml ONCE ONCE IV 03/12/17 15:15 03/12/17 15:16 DC 03/12/17 15:15 75 ML Ondansetron HCl 4 mg ONCE ONCE IVP 03/12/17 13:30 03/12/17 13:31 DC 03/12/17 13:30 4 MG Sodium Chloride 100 ml ONCE ONCE IV 03/12/17 15:15 03/12/17 15:16 DC 03/12/17 15:15 100 ML Sodium Chloride 1,000 ml @ 0 mls/hr Q0M ONCE IV 03/12/17 13:17 03/12/17 13:18 DC 03/12/17 13:30 0 MLS/HR Vital Signs/I&O Vital Sign - Last 12Hours 03/12/17 03/12/17 12:35 16:27 Temp 97.6 Pulse 83 78 Resp 18 18 B/P (MAP) 127/81 (96) Pulse Ox 94 99 O2 Delivery Room Air Room Air Capillary Refill : Less Than 3 Seconds Blood Pressure Mean: 96 ECG Initial ECG Impression Date: Mar 12, 2017 Initial ECG Impression Time: 13:16 Initial ECG Rhythm: Normal Sinus Initial ECG Intervals: Normal Initial ECG Impression: Normal Initial ECG Comparisson: Unchanged Comment Sinus rhythm. No STEMI or arrhythmia noted. ECG reviewed and discussed with Dr. Tejada. Diagnostic Imaging Diagonstic Imaging: Xray Plain Films/CT/US/NM/MRI: chest Comments FINDINGS: The heart size, mediastinal configuration, and pulmonary vascularity are within normal limits. There is no pleural effusion, pneumothorax, or pneumonia. The osseous structures are unremarkable. IMPRESSION: No acute cardiopulmonary abnormality. Dictated by: Dictated on workstation # [id number] Reviewed: Reviewed by Me (radiology report reviewed by me) Diagonstic Imaging: CT Plain Films/CT/US/NM/MRI: head Comments FINDINGS: The ventricles and sulci are within normal limits. There is no hydrocephalus or cerebral edema. There is no midline shift or mass effect. There is no intracranial mass, hemorrhage, or extra-axial fluid collection. The visualized paranasal sinuses and mastoid air cells are clear. There are no regional areas of decreased attenuation appreciated to suggest an acute CVA. IMPRESSION: No acute intracranial abnormality. Dictated by: Dictated on workstation # [id number] Reviewed: Reviewed by Me (radiology report reviewed by me) Diagonstic Imaging: CT Plain Films/CT/US/NM/MRI: other (head and neck angio) Comments CT ANGIO HEAD/NECK Clinical indication: Patient with headaches, dizziness, right -sided neck pain x approximately 2-3 days. Patient has history of four strokes approximately two years ago. Exams: 1: Head CT with IV contrast. 2: CT angiogram of the head and neck performed with 100 cc of Omnipaque 350 IV contrast. Sagittal and coronal MIP reformations were created for better visualization of vascular anatomy. Comparison: Head CT without contrast dated . MRI of the brain without and with IV contrast dated 07/02/2016. CT angiogram of the head/neck dated 08/26/2014. Findings: Head CT: Stable appearance of the head CT with no interval acute intracranial process. Stable subtle small areas of chronic infarcts involving the bilateral parietal lobes and left occipital lobe region. There is normal osei-white matter distinction otherwise. The brain parenchymal volume appears appropriate for patient's age. There is no abnormal IV contrast enhancement. There is no hydrocephalus. Basal cisterns are unremarkable. The extracranial soft tissue, skull, and orbits are unremarkable. CT angiogram: There is streak artifact from patient body habitus which obscures portions of the aortic arch, proximal great vessels and low neck region. The bilateral CCA, bilateral subclavian arteries, bilateral ECA, bilateral cervical ICA and bilateral cervical vertebral arteries are patent, as visualized, with no significant stenosis, vascular malformation, aneurysm or dissection. Relatively dominant right vertebral artery is seen. The more distal aspect of the cervical left vertebral artery at its intradural/extradural portion is not well visualized in a short segment, but it is seen patent, intradurally, and just prior to the intradural segment. This may just be due to artifact limiting evaluation. This appearance is stable compared to the prior CT angiogram. Anterior and posterior circulation of the [place] is otherwise patent ? nd without significant abnormality. There is no significant stenosis, vascular malformation, aneurysm or dissection. The neck soft tissue shows no significant abnormality. Emphysematous lung disease changes are seen. There is a incompletely visualized solid and partially groundglass nodule in the left upper lobe. This has increased in size compared to the prior study where it is remeasured at roughly 5 mm. Cervical spine degenerative disease is again seen. Impression: 1: Stable CT scan of the brain no evidence of acute intracranial process. 2: Areas of small chronic cerebral infarcts involving both cerebral hemispheres, as described above. 3: Stable CT angiogram of the head and neck with no evidence of significant stenosis, vascular malformation, aneurysm or dissection. 4: There is interval increased size of a solid and groundglass nodule in the left upper lobe which measures 10 mm compared to the prior study measured at 5 mm. Pulmonary consultation is suggested to exclude underlying neoplasm. 5: Emphysematous lung disease. Dictated on workstation # [id number] Reviewed: Reviewed by Me (radiology report reviewed by me) Departure Communication (Admissions) Progress Notes Patient seen and evaluated. Initial labs, chest x-ray, ECG and CT head obtained. Patient continues to report symptoms of dizziness and headache with a history of previous CVA; therefore, CT angiogram and neck obtained while in the emergency department. Patient case Discussed with Roopa Wang including history, vital signs, laboratory findings, diagnostic study findings, and exam findings. Recommends discharge to home with follow-up as an outpatient in their office Tuesday. Requests patient to contact their office Tuesday for appointment time. All laboratory findings, diagnostic study findings, and recommendations by Dr. Roopa Wang discussed with the patient. Patient reports feeling much better after the IV fluids. Reports dizziness has improved. Patient is alert and oriented 3, no acute distress. Lungs are clear to auscultation cardiovascular regular rate and rhythm. Negative Romberg test. Normal gait. Proceed with discharge to home with follow-up on Tuesday as recommended by Dr. Roopa Wnag at [facility]. All return precautions were discussed with the patient as described in the discharge instructions of this report. Patient verbalizes understanding and agrees with the treatment plan. Patient case discussed with Dr. Tejada, he agrees with the plan of care. Patient ambulated from the emergency department without difficulty. Impression Impression: Primary Impression: Volume depletion Additional Impressions: Dizziness Abnormal CT scan Disposition: HOME, SELF-CARE Condition: Improved Departure-Patient Inst. Decision time for Depature: 16:02 Referrals: [facility]/KENDY (PCP) Primary Care Physician SOTERO HUIZAR APRN (Family) Primary Care Physician Patient Instructions: Dehydration, Adult (DC), Dizziness, Nonvertigo, (DC), Vertigo (a Type of Dizziness) (DC) Add. Discharge Instructions: All discharge instructions reviewed with patient and/or family. Voiced understanding. Continue usual home medications. Drink plenty of fluids. Monitor blood sugars closely. Follow-up with [facility] on Tuesday for recheck, to schedule outpatient MRI of the brain, and to schedule further evaluation of the lung nodule. Call first thing Tuesday for appointment time. Avoid standing or walking too fast. Return to the emergency department immediately for worsened headache, dizziness, changes in vision, slurred speech, facial drooping, weakness, numbness, bowel incontinence, bladder incontinence, shortness of air, chest pain, or any other concerns. PRISCILLA QUINN Mar 12, 2017 13:05
[2017-03-12 13:16] LABS: BASOPHILS # (AUTO) 0.1 10^3/uL (0.0-0.1); BASOPHILS % (AUTO) 1 % (0-10); EOSINOPHILS # (AUTO) 0.1 10^3/uL (0.0-0.3); EOSINOPHILS % (AUTO) 1 % (0-10); LYMPHOCYTES # (AUTO) 3.2 X 10^3 (1.0-4.0); LYMPHOCYTES % (AUTO) 27 % (12-44); MEAN CORPUSCULAR HEMOGLOBIN 31 PG (25-34); MEAN CORPUSCULAR HGB CONC 32 G/DL (32-36); MEAN CORPUSCULAR VOLUME 96 FL (80-99); MONOCYTES % (AUTO) 8 % (0-12); NEUTROPHILS # (AUTO) 7.6 X 10^3 (1.8-7.8); NEUTROPHILS % (AUTO) 64 % (42-75); PLATELET COUNT 322 10^3/uL (130-400); RED BLOOD COUNT 4.98 10^6/uL (4.35-5.85); RED CELL DISTRIBUTION WIDTH 13.7 % (10.0-14.5); WHITE BLOOD COUNT 11.9 10^3/uL (4.3-11.0)
[2017-03-12] MEDS ORDERED: NS IV 1000 ML 1,000 ML IV ONE (13:17)
[2017-03-12 13:29] LABS: ALANINE AMINOTRANSFERASE 38 U/L (0-55); ALCOHOL 11 MG/DL (<10); ANION GAP 15 MMOL/L (5-14); ASPARTATE AMINO TRANSFERASE 70 U/L (5-34); BILIRUBIN,TOTAL 0.7 MG/DL (0.1-1.0); BLOOD UREA NITROGEN 10 MG/DL (7-18); BUN/CREATININE RATIO 15; CALCIUM 9.8 MG/DL (8.5-10.1); CARBON DIOXIDE 28 MMOL/L (21-32); CHLORIDE 96 MMOL/L (98-107); CREATININE SERUM 0.66 MG/DL (0.60-1.30); GFR ESTIMATED > 60; GLUCOSE 203 MG/DL (70-105); LIPASE 58 U/L (8-78); SODIUM 139 MMOL/L (135-145); TOTAL PROTEIN 7.9 GM/DL (6.4-8.2); hs C REACTIVE PROTEIN 1.52 MG/DL (0.00-0.50)
[2017-03-12] MEDS ORDERED: ONDANSETRON 4 MG/2 ML (SDV) Z0FRAN IVP ONE (13:30)
[2017-03-12 13:49] LABS: TROPONIN I < 0.30 NG/ML (<0.30)
--- NOTE | 2017-03-12 13:50 | Diagnostic Imaging Report ---
PROCEDURE: CT head without contrast. TECHNIQUE: Multiple contiguous axial images were obtained through the brain without the use of intravenous contrast. INDICATION: Headache and dizziness. Comparison made to prior examination 11/09/2016. FINDINGS: The ventricles and sulci are within normal limits. There is no hydrocephalus or cerebral edema. There is no midline shift or mass effect. There is no intracranial mass, hemorrhage, or extra-axial fluid collection. The visualized paranasal sinuses and mastoid air cells are clear. There are no regional areas of decreased attenuation appreciated to suggest an acute CVA. IMPRESSION: No acute intracranial abnormality. Dictated by: Dictated on workstation # [id number]
--- NOTE | 2017-03-12 13:52 | Diagnostic Imaging Report ---
INDICATION: Headache and dizziness with right neck pain. Comparison made to prior examination 11/09/2016. FINDINGS: The heart size, mediastinal configuration, and pulmonary vascularity are within normal limits. There is no pleural effusion, pneumothorax, or pneumonia. The osseous structures are unremarkable. IMPRESSION: No acute cardiopulmonary abnormality. Dictated by: Dictated on workstation # [id number]
[2017-03-12 14:41] LABS: BILIRUBIN,URINE NEGATIVE (NEGATIVE); KETONES,URINE NEGATIVE (NEGATIVE); LEUKOCYTE ESTERASE ,URINE 1+ (NEGATIVE); NITRITE,URINE NEGATIVE (NEGATIVE); PH,URINE 6.5 (5-9); PROTEIN,URINE 1+ (NEGATIVE); UROBILINOGEN,URINE NORMAL (NORMAL)
[2017-03-12] MEDS ORDERED: NS 100 ML (IVPB) BAG IV ONE (15:15)
[2017-03-12] MEDS ORDERED: IOHEXOL 350 MG/ML 100 ML (OMNIPAQUE 350) VIAL IV ONE (15:15)
--- NOTE | 2017-03-12 15:49 | Diagnostic Imaging Report ---
Clinical indication: Patient with headaches, dizziness, right-sided neck pain x approximately 2-3 days. Patient has history of four strokes approximately two years ago. Exams: 1: Head CT with IV contrast. 2: CT angiogram of the head and neck performed with 100 cc of Omnipaque 350 IV contrast. Sagittal and coronal MIP reformations were created for better visualization of vascular anatomy. Comparison: Head CT without contrast dated 03/12/2017. MRI of the brain without and with IV contrast dated 07/02/2016. CT angiogram of the head/neck dated 08/26/2014. Findings: Head CT: Stable appearance of the head CT with no interval acute intracranial process. Stable subtle small areas of chronic infarcts involving the bilateral parietal lobes and left occipital lobe region. There is normal osei-white matter distinction otherwise. The brain parenchymal volume appears appropriate for patient's age. There is no abnormal IV contrast enhancement. There is no hydrocephalus. Basal cisterns are unremarkable. The extracranial soft tissue, skull, and orbits are unremarkable. CT angiogram: There is streak artifact from patient body habitus which obscures portions of the aortic arch, proximal great vessels and low neck region. The bilateral CCA, bilateral subclavian arteries, bilateral ECA, bilateral cervical ICA and bilateral cervical vertebral arteries are patent, as visualized, with no significant stenosis, vascular malformation, aneurysm or dissection. Relatively dominant right vertebral artery is seen. The more distal aspect of the cervical left vertebral artery at its intradural/extradural portion is not well visualized in a short segment, but it is seen patent, intradurally, and just prior to the intradural segment. This may just be due to artifact limiting evaluation. This appearance is stable compared to the prior CT angiogram. Anterior and posterior circulation of the [place] is otherwise patent ?nd without significant abnormality. There is no significant stenosis, vascular malformation, aneurysm or dissection. The neck soft tissue shows no significant abnormality. Emphysematous lung disease changes are seen. There is a incompletely visualized solid and partially groundglass nodule in the left upper lobe. This has increased in size compared to the prior study where it is remeasured at roughly 5 mm. Cervical spine degenerative disease is again seen. Impression: 1: Stable CT scan of the brain no evidence of acute intracranial process. 2: Areas of small chronic cerebral infarcts involving both cerebral hemispheres, as described above. 3: Stable CT angiogram of the head and neck with no evidence of significant stenosis, vascular malformation, aneurysm or dissection. 4: There is interval increased size of a solid and groundglass nodule in the left upper lobe which measures 10 mm compared to the prior study measured at 5 mm. Pulmonary consultation is suggested to exclude underlying neoplasm. 5: Emphysematous lung disease. Dictated by: Dictated on workstation # [id number]
[2017-03-12] MEDS ORDERED: ORPHENADRINE 60 MG/2 ML (NORFLEX) AMP IV STA (16:13)
[2017-03-12] MEDS ORDERED: KETOROLAC 30 MG/ML VIAL IVP STA (16:13)
[2017-03-12 16:27] VITALS: BP 105/70
== END 2017-03-12 16:27 | disposition home or self-care (01) ==
LOC: EDUNIT# 12:29 → ER 12:32
DX: E86.9 Volume depletion, unspecified (principal); R42 Dizziness and giddiness; R93.5 Abnormal findings on diagnostic imaging of other abdominal regions, including retroperitoneum; I10 Essential (primary) hypertension; G43.909 Migraine, unspecified, not intractable, without status migrainosus; E11.9 Type 2 diabetes mellitus without complications; F41.9 Anxiety disorder, unspecified; K21.9 Gastro-esophageal reflux disease without esophagitis; F17.210 Nicotine dependence, cigarettes, uncomplicated; Z86.73 Personal history of transient ischemic attack (TIA), and cerebral infarction without residual deficits; Z82.49 Family history of ischemic heart disease and other diseases of the circulatory system; Z80.0 Family history of malignant neoplasm of digestive organs; Z87.19 Personal history of other diseases of the digestive system; Z79.82 Long term (current) use of aspirin; Z87.59 Personal history of other complications of pregnancy, childbirth and the puerperium; Z98.51 Tubal ligation status
CPT/HCPCS: 36415; 70450; 70496; 70498; 71010; 80053; 80306; 80320; 81000; 83690; 84443; 84484; 85025; 86141; 93005

== ENCOUNTER → 2017-04-05 | Outpatient (CLI) | payer MEDICARE, MEDICAID ==
[~2017-04-05] MED LIST changes: +IOHEXOL 350 MG/ML 100 ML (OMNIPAQUE 350) VIAL IV ONE; +NS 100 ML (IVPB) BAG IV ONE
--- NOTE | 2017-04-05 10:21 | Diagnostic Imaging Report ---
PROCEDURE: CT chest with contrast only. TECHNIQUE: Multiple contiguous axial images were obtained through the chest after administration of intravenous contrast. DATE: April 05, 2017. COMPARISON: Chest radiographs 03/12/2017. INDICATION: 46-year-old female, evaluation for pulmonary nodule. FINDINGS: There are mild upper lobe predominant changes of paraseptal emphysema. There is a 8.6 mm ill-defined nodule on axial image 14 in the left upper lobe. This previously measured 6.6 mm in axial dimension on CT head and neck angiographic study of 08/26/2014. No additional pulmonary nodule is identified. There is no additional focal airspace consolidation. There is no pneumothorax. There is no pleural effusion. The central airways are patent. There is no identified central pulmonary embolus. There is limited evaluation for segmental and subsegmental pulmonary emboli given the timing of the contrast bolus. The heart is not enlarged. There is no pericardial effusion. There are areas of atherosclerotic disease. There is no identified mediastinal, hilar, or axillary lymph node which specifically meets CT size criteria for adenopathy. Very limited evaluation of the visualized portions of the upper abdomen is unremarkable. There is no identified acute bony abnormality. IMPRESSION: CT CHEST. 1. 8.6 mm ill-defined left upper lobe pulmonary nodule. This is indeterminate in etiology. This previously measured approximately 6.6 mm in size on comparison CT head and neck angiography study of 08/26/2014. Although PET CT may have some loss of sensitivity for identification of FDG uptake in pulmonary nodules less than 1 cm in size, given the interval increase in size of the nodule, PET/CT may be helpful for further evaluation. 2. No additional identified pulmonary nodule. 3. No identified abnormally enlarged mediastinal, hilar, or axillary lymph node. 4. Mild upper lobe predominant changes of paraseptal emphysema. Dictated by: Dictated on workstation # [id number]
== END ==
LOC: RAD 09:16
PROVIDERS: ATTEND Nurse Practitioner Family
DX: J43.8 Other emphysema (principal); R91.1 Solitary pulmonary nodule; Z72.0 Tobacco use
CPT/HCPCS: 71260

== ENCOUNTER 2017-04-16 22:15 | Emergency (ER) | payer MEDICARE, MEDICAID ==
[~2017-04-16] VITALS: Ht 157.5 cm; Wt 89.8 kg
[~2017-04-16 22:15] MED LIST changes: -IOHEXOL 350 MG/ML 100 ML (OMNIPAQUE 350) VIAL IV ONE; -NS 100 ML (IVPB) BAG IV ONE
--- NOTE | 2017-04-16 23:02 | ED Cough/URI ---
General Chief Complaint: Cough/Cold/Flu Symptoms Stated Complaint: CHEST PAIN AND BACK PAIN FROM DRY COUGH Nursing Triage Note: PT TO ED 6 W/ FAMILY FOR C/O COUGH, CONGESTION ONSET W/IN PAST 2-3 DAYS. REPORTS SHE HAS AN APPT TUESDAY BUT STATES SHE CANNOT WAIT. STATES SHE THINKS SHE MAY HAVE PNEUMONIA Source: patient, family Exam Limitations: no limitations History of Present Illness Date Seen by Provider: Apr 16, 2017 Time Seen by Provider: 22:53 Initial Comments Patient resists ER by private conveyance with chief complaint of fast or 3 days now she's been having some cough productive of sputum sometimes in the morning as well as some back and chest pain is worse on deep inspiration or coughing. 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 She's been using Tylenol. She's had no fevers or chills. Everyone in her family has been ill with influenza or colds. She is down to a quarter pack a day smoking attempting to quit. She is seeing Dr. Hidalgo and they are working on diagnosing her whether she has COPD. She does not have any wheezing, nausea, shortness of breath, tingling in her arms and legs numb in the center shoulder jaw or neck. Her chest pain is not made worse by exertion. She says she is not really short of breath. She does not use oxygen at home. She states she has a chronic fast heart rate for which she uses diltiazem daily and she says she's been using it every day religiously. Allergies and Home Medications Allergies Coded Allergies: erythromycin base (Unverified Allergy, Mild, 11/11/08) Penicillins (Verified Allergy, Unknown, 11/14/08) codeine (Verified Allergy, Unknown, 11/14/08) Home Medications Acetaminophen 325 Mg Tab, 650 MG PO Q4H PRN for mild pain or fever for 30 Days Prescribed by: ERNESTO SY on 09/28/13 09 Aspirin 81 Mg Tablet., 81 MG PO DAILY, (Reported) Atorvastatin Calcium 80 Mg Tablet, 80 MG PO HS, #30 Prescribed by: CELIA ISAACS on 09/24/13 1850 Bisacodyl 10 Mg Supp, 10 MG [place] DAILY PRN for CONSTIPATION for 30 Days Prescribed by: ERNESTO SY on 09/28/13 0932 Clopidogrel Bisulfate 75 Mg Tablet, 1 EACH PO DAILY, #30 Prescribed by: CELIA ISAACS on 09/24/131849 Diltiazem Hcl 30 Mg Tab, 30 MG PO Q8HR for 30 Days Prescribed by: ERNESTO SY on 09/28/13 0932 Hydrochlorothiazide 12.5 Mg Cap, 25 MG PO DAILY, (Reported) Hydrocodone Bit/Acetaminophen 1 Each Tablet, 1 EACH PO NEEDED, (Reported) Melatonin/Pyridoxine Hcl (B6) 1 Each Tab.mphase, 1 EACH PO HS, (Reported) Metoprolol Tartrate 25 Mg Tablet, 25 MG PO BID for 30 Days Prescribed by: ERNESTO SY on 09/28/13 0932 Nitrofurantoin Monohyd/M-Cryst 100 Mg Capsule, 1 TAB PO BID, #20 Ref 0 Prescribed by: PRISCILLA QUINN on 08/16/16 164 Nystatin 60 Ml Btl, 5 ML PO Q6H for 5 Days swish and swallow QID x5 days Prescribed by: THELMA FARAH on 05/11/14 2018 Omeprazole 40 Mg Capsule.dr, 40 MG PO DAILY, (Reported) Ondansetron 4 Mg Tab.rapdis, 4 MG SL Q4H PRN for NAUSEA/VOMITING, #10 Prescribed by: AKBAR BARROW on 09/10/15 0349 Ondansetron Hcl 4 Mg Tab, 4 MG SL Q4H, #10 FOR NAUSEA AND VOMITING Prescribed by: BLAIR DANIELS on 05/19/14 1128 Phenazopyridine HCl 200 Mg Tablet, 1 TAB PO Q8H PRN for in, #30 Ref 0 Prescribed by: PRISCILLA QUINN on 08/16/16 1644 Polyethylene Glycol 17 Gm Pack, 17 GM PO DAILY PRN for CONSTIPATION, #30 Prescribed by: CELIA ISAACS on 09/24/13 185 Senna 1 Ea Tablet, 1 EA PO BID for 30 Days Prescribed by: ERNESTO SY on 09/28/13 0932 Constitutional: No chills, No diaphoresis, No fever EENTM: No hearing loss, No ear pain Respiratory: cough, phlegm, No short of breath, No wheezing Cardiovascular: see HPI, chest pain, No edema, No Hx of Intervention, No palpitations, No syncope, No vascular heart diseas Skin: No pruritus, No rash Past Xtlcnxj-Dqgjrk-Fjqtnu Hx Patient Social History Alcohol Use: Denies Use Recreational Drug Use: No Smoking Status: Current Everyday Smoker Type Used: Cigarettes 2nd Hand Smoke Exposure: No Recent Foreign Travel: No Contact w/Someone Who Travel: No Recent Infectious Disease Expo: No Recent Hopitalizations: No Physical Abuse: No Sexual Abuse: No Mistreated: No Fear: No Immunizations Up To Date Tetanus Booster (TDap): Unknown PED Vaccines UTD: No Date of Influenza Vaccine: Jan 07, 2017 Seasonal Allergies Seasonal Allergies: No Surgeries History of Surgeries: Yes Surgeries: Section, Gallbladder, Tubal Ligation Respiratory History of Respiratory Disorde: No (Tobaccoism) Cardiovascular History of Cardiac Disorders: Yes Cardiac Disorders: Hypertension, Irregular Heartbeat Neurological History of Neurological Disord: Yes Neurological Disorders: Headaches /Migraines, Stroke, Vertigo Reproductive System Hx Reproductive Disorders: Yes Sexually Transmitted Disease: No Female Reproductive Disorders: Endometriosis 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, 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 Genitourinary History of Genitourinary Disor: No Gastrointestinal History of Gastrointestinal Di: Yes Gastrointestinal Disorders: Gastroesophageal Reflux, Hiatal Hernia, Gall Bladder Disease Musculoskeletal History of Musculoskeletal Dis: Yes Musculoskeletal Disorders: Arthritis Endocrine History of Endocrine Disorders: No Endocrine Disorders: Diabetes, Insulin dep, Diabetes, Non-Insulin dep HEENT History of HEENT Disorders: No Cancer History of Cancer: No Psychosocial History of Psychiatric Problem: Yes Behavioral Health Disorders: Anxiety Suicide Risk Score: 0 Integumentary History of Skin or Integumenta: No Blood Transfusions History of Blood Disorders: Yes ("CLOTTING DISORDER", chronic leukocytosis) Adverse Reaction to a Blood Tr: No Family Medical History Significant Family History: Heart Disease, Hypertension, Stroke Family Medial History: Cancer 19 MOTHER (THROAT CANCER) Family history: Hypertension 19 MOTHER History of - disorder G8 SISTER (SISTER HAD MS) Myocardial infarction 19 FATHER 19 MOTHER Stroke 19 MOTHER Physical Exam Vital Signs Vital Sign - Last 12Hours 04/16/17 22:40 Temp 97.5 Pulse 113 Resp 20 B/P (MAP) 114/70 (85) Pulse Ox 95 O2 Delivery Room Air Capillary Refill : Less Than 3 Seconds General Appearance: WD/WN, no apparent distress Eyes: Bilateral Eye Normal Inspection, Bilateral Eye PERRL, Bilateral Eye EOMI HEENT: PERRL/EOMI, normal ENT inspection, TMs normal (mild otosclerosis that is chronic), pharynx normal Neck: non-tender, full range of motion, supple, normal inspection Respiratory: chest non-tender, lungs clear, normal breath sounds, no respiratory distress, no accessory muscle use Cardiovascular: normal peripheral pulses, regular rate, rhythm, no edema Neurologic/Psychiatric: alert, oriented x 3 Skin: normal color, warm/dry Progress/Results/Core Measures Suspected Sepsis Recent Fever Within 48 Hours: No Infection Criteria Present: None New/Unexplained Altered Menta: No Sepsis Screen: No Definite Risk Sepsis Diagnosis: SIRS Temperature:97.5 Pulse: 113 Respiratory Rate: 20 Laboratory Tests 04/17/17 00:08: White Blood Count 13.9H Blood Pressure 114 /70 Mean: 85 Laboratory Tests 04/17/17 00:08: Creatinine 0.77, Platelet Count 280, Total Bilirubin 0.6 Results/Orders Lab Results Laboratory Tests Test 04/17/17 00:08 Range/Units White Blood Count 13.9 H 4.3-11.0 10^3/uL Red Blood Count 4.68 4.35-5.85 10^6/uL Hemoglobin 14.7 11.5-16.0 G/DL Hematocrit 45 35-52 % Mean Corpuscular Volume 96 80-99 FL Mean Corpuscular Hemoglobin 31 25-34 PG Mean Corpuscular Hemoglobin Concent 33 32-36 G/DL Red Cell Distribution Width 13.9 10.0-14.5 % Platelet Count 280 130-400 10^3/uL Mean Platelet Volume 11.1 H 7.4-10.4 FL Neutrophils (%) (Auto) 63 42-75 % Lymphocytes (%) (Auto) 27 12-44 % Monocytes (%) (Auto) 8 0-12 % Eosinophils (%) (Auto) 2 0-10 % Basophils (%) (Auto) 1 0-10 % Neutrophils # (Auto) 8.8 H 1.8-7.8 X 10^3 Lymphocytes # (Auto) 3.7 1.0-4.0 X 10^3 Monocytes # (Auto) 1.1 H 0.0-1.0 X 10^3 Eosinophils # (Auto) 0.2 0.0-0.3 10^3/uL Basophils # (Auto) 0.1 0.0-0.1 10^3/uL Sodium Level 138 135-145 MMOL/L Potassium Level 3.6 3.6-5.0 MMOL/L Chloride Level 95 L 98-107 MMOL/L Carbon Dioxide Level 28 21-32 MMOL/L Anion Gap 15 H 5-14 MMOL/L Blood Urea Nitrogen 11 7-18 MG/DL Creatinine 0.77 0.60-1.30 MG/DL Estimat Glomerular Filtration Rate > 60 BUN/Creatinine Ratio 14 Glucose Level 250 H 70-105 MG/DL Calcium Level 9.8 8.5-10.1 MG/DL Total Bilirubin 0.6 0.1-1.0 MG/DL Aspartate Amino Transf (AST/SGOT) 62 H 5-34 U/L Alanine Aminotransferase (ALT/SGPT) 57 H 0-55 U/L Alkaline Phosphatase 102 40-136 U/L Troponin I < 0.30 <0.30 NG/ML Total Protein 7.1 6.4-8.2 GM/DL Albumin 3.8 3.2-4.5 GM/DL Micro Results Microbiology 04/16/17 Influenza Types A,B Antigen ([facility]) - Final, Complete My Orders Orders - GWEN RAMOS Influenza A And B Antigens (04/16/17 22:54) Cbc With Automated Diff (04/16/17 22:54) Comprehensive Metabolic Panel (04/16/17 22:54) Troponin I (04/16/17 22:54) Chest Pa/Lat (2 View) (04/16/17 22:54) Ekg Tracing (04/16/17 22:54) Vital Signs/I&O Vital Sign - Last 12Hours 04/16/17 22:40 Temp 97.5 Pulse 113 Resp 20 B/P (MAP) 114/70 (85) Pulse Ox 95 O2 Delivery Room Air Capillary Refill : Less Than 3 Seconds Blood Pressure Mean: 85 Progress Note #1: Time: 23:00 Progress Note Initially intended to do a chest x-ray since she has a history of COPD possibly had a flu swab but since she is tachycardic to think a CBC CMP would help us differentiate between tachycardia from sepsis versus her chronic sinus tachycardia. We'll go ahead and add a troponin and EKG since were drawing blood just to rule out a coronary origin of her chest pain. Her chest pain however is very classic for pleuritic and will probably respond well to some steroids. Echocardiogram from [address] Hill demonstrates EF of 60% and no other significant stenosis or regurgitation. Progress Note #2: Time: 01:04 Progress Note Very mild white count elevation with viral sounding pleuritic chest pain and a negative chest x-ray. We'll give her a low-dose of steroids to cover her for her COPD and have her follow-up with NSAIDs outpatient as needed. ECG Initial ECG Impression Date: Apr 16, 2017 Initial ECG Impression Time: 23:34 Initial ECG Rate: 96 Initial ECG Rhythm: Normal Sinus Initial ECG Intervals: Normal Initial ECG Impression: Normal Initial ECG Comparisson: Unchanged Comment Normal sinus rhythm with no T-wave elevation or depression. Diagnostic Imaging Diagonstic Imaging: Xray Plain Films/CT/US/NM/MRI: chest (2v) Comments Unremarkable 2 view x-ray. Reviewed: Reviewed by Me Departure Impression Impression: Primary Impression: Upper respiratory infection Qualified Codes: J06.9 - Acute upper respiratory infection, unspecified Additional Impression: Pleuritic chest pain Disposition: HOME, SELF-CARE Condition: Stable Departure-Patient Inst. Decision time for Depature: 01:05 Referrals: EHSAN CARABALLO DO (PCP) Primary Care Physician SOTERO HUIZAR APRN (Family) Primary Care Physician Patient Instructions: Pleuritic Chest Pain Add. Discharge Instructions: Use Tylenol 1000 mg every 8 hours as needed for the pain as well as heating pads and stay active. Drink lots of fluids. Use humidifiers and vapor rubs such as Vicks or Mentholatum. Take one tablet of prednisone daily for the next 5 days. Follow up with your primary care physician as needed. All discharge instructions reviewed with patient and/or family. Voiced understanding. Scripts Prednisone (Prednisone) 20 Mg Tab 20 MG PO DAILY for 5 Days, #5 TAB 0 Refills Prov: GWEN RAMOS 04/17/17 Copy Copies To 1: EHSAN CARABALLO TITUS J Apr 16, 2017 23:02
[2017-04-17 00:15] VITALS: BP 114/70
[2017-04-17 00:22] LABS: BASOPHILS # (AUTO) 0.1 10^3/uL (0.0-0.1); BASOPHILS % (AUTO) 1 % (0-10); EOSINOPHILS # (AUTO) 0.2 10^3/uL (0.0-0.3); EOSINOPHILS % (AUTO) 2 % (0-10); HEMATOCRIT 45 % (35-52); HEMOGLOBIN 14.7 G/DL (11.5-16.0); LYMPHOCYTES # (AUTO) 3.7 X 10^3 (1.0-4.0); LYMPHOCYTES % (AUTO) 27 % (12-44); MEAN CORPUSCULAR HEMOGLOBIN 31 PG (25-34); MEAN CORPUSCULAR HGB CONC 33 G/DL (32-36); MEAN CORPUSCULAR VOLUME 96 FL (80-99); MEAN PLATELET VOLUME 11.1 FL (7.4-10.4); MONOCYTES # (AUTO) 1.1 X 10^3 (0.0-1.0); MONOCYTES % (AUTO) 8 % (0-12); NEUTROPHILS # (AUTO) 8.8 X 10^3 (1.8-7.8); NEUTROPHILS % (AUTO) 63 % (42-75); PLATELET COUNT 280 10^3/uL (130-400); RED BLOOD COUNT 4.68 10^6/uL (4.35-5.85); RED CELL DISTRIBUTION WIDTH 13.9 % (10.0-14.5); WHITE BLOOD COUNT 13.9 10^3/uL (4.3-11.0)
[2017-04-17 00:37] LABS: ALANINE AMINOTRANSFERASE 57 U/L (0-55); ALBUMIN 3.8 GM/DL (3.2-4.5); ALKALINE PHOSPHATASE 102 U/L (40-136); BILIRUBIN,TOTAL 0.6 MG/DL (0.1-1.0); BUN/CREATININE RATIO 14; CALCIUM 9.8 MG/DL (8.5-10.1); CARBON DIOXIDE 28 MMOL/L (21-32); CHLORIDE 95 MMOL/L (98-107); CREATININE SERUM 0.77 MG/DL (0.60-1.30); GFR ESTIMATED > 60; GLUCOSE 250 MG/DL (70-105); POTASSIUM 3.6 MMOL/L (3.6-5.0); SODIUM 138 MMOL/L (135-145); TOTAL PROTEIN 7.1 GM/DL (6.4-8.2)
[2017-04-17] MEDS ORDERED: PRD20T PO (01:09)
--- NOTE | 2017-04-17 06:46 | Diagnostic Imaging Report ---
Clinical indication: Patient with cough, and congestion with onset in past 2-3 days. Exam: Chest x-ray PA and lateral views. Comparisons: Chest x-ray dated 03/12/2017. Findings: Lungs/pleura: Lungs are clear. There is no pneumothorax. There is no pleural effusion. Mediastinum: Unremarkable. Pulmonary vasculature: Unremarkable. Heart: Unremarkable. Bones/extrathoracic soft tissue: There are mildly degenerative osteophytes scattered throughout the thoracic spine. Impression: There is no radiographic evidence of acute cardiopulmonary process. Dictated by: Dictated on workstation # [id number]
--- OUTSIDE RECORDS SUMMARY | 2017-04-17 11:21 | XMS REPORT | Clinical Summary ---
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 If you do not see the information that you expected, contact Release of Information in the Health Information Management department at [phone] for further assistance in locating additional records.[facility] Allergies Not on File Current Medications [...]
--- OUTSIDE RECORDS SUMMARY | 2017-04-17 11:31 | XMS REPORT | Continuity of Care Document ---
Author Author [facility] Organization [facility] Address Unknown Phone Unavailable Allergies Active Description Code Type Severity Reaction Onset Reported/Identified Relationship to Patient Clinical Status Yes Erythromycin Base [id number] Drug Allergy Mild N/A 11/11/2008 Yes codeine [id number] Drug Allergy Unknown N/A 11/14/2008 Yes Penicillins [id number] Drug Allergy Unknown N/A 11/14/2008 Medications There [...] AMELIA WRIGHT, PASTOR Blank Ot 794.09 ABN BI DATA ARCHITECT FUNCT STUDY NEC 09/01/2012 PASTOR CISNEROS MD [...] MD Ot 530.10 ESOPHAGITIS NOS 09/18/2013 PASTOR CISNEROS MD Ot 553.3 DIAPHRAGMATIC HERNIA 09/18/2013 PASTOR [...] PASTOR J Ot 794.09 05/11/2014 AMELIA WRIGHT, [facility] Ot 783.1 05/11/2014 AMELIA WRIGHT, [facility] Ot 787.3 05/11/2014 AMELIA WRIGHT, PASTOR J Ot 789.09 05/11/2014 AMELIA WRIGHT, [facility] Ot 789.1 05/11/2014 AMELIA WRIGHT, [facility] Ot 723.1 05/11/2014 AMELIA WRIGHT, PASTOR J Ot 729.5 05/11/2014 AMELIA WRIGHT, PASTOR J Ot 719.40 05/11/2014 AMELIA WRIGHT, PASTOR J Ot 780.79 05/11/2014 AMELIA WRIGHT, [facility] Ot 782.3 05/11/2014 AMELIA WRIGHT, PASTOR [...] WRIGHT, PASTOR J Ot 780.39 05/11/2014 AMELIA WIRGHT, PASTOR Blank Ot 348.89 05/11/2014 AMELIA WRIGHT, [...] PASTOR J Ot 794.09 05/15/2014 AMELIA WRIGHT, [facility] Ot 783.1 05/15/2014 AMELIA WRIGHT, [facility] Ot 787.3 05/15/2014 AMELIA WRIGHT, [facility] Ot 789.09 05/15/2014 AMELIA WRIGHT, PASTOR J Ot 789.1 05/15/2014 AMELIA WRIGHT, PASTOR J Ot 723.1 05/15/2014 AMELIA WRIGHT, [facility] Ot 729.5 05/15/2014 AMELIA WRIGHT, PASTOR J Ot 719.40 05/15/2014 AMELIA WRIGHT, PASTOR J Ot 780.79 05/15/2014 AMELIA WRIGHT, [facility] Ot 782.3 05/15/2014 AMELIA WRIGHT, PASTOR J Ot 785.0 05/15/2014 AMELIA WRIGHT, PASTOR J Ot 719.40 05/15/2014 AMELIA WRIGHT, [facility] Ot 780.79 05/15/2014 AMELIA WRIGHT, PASTOR [...] PASTOR J Ot 780.97 05/15/2014 AMELIA WRIGHT, [facility] Ot 781.99 05/15/2014 AMELIA WRIGHT, PASTOR Abhay Ot 530.81 05/15/2014 AMELIA WRIGHT, PASTOR Abhay Ot 553.3 05/15/2014 AMELIA WRIGHT, PASTOR Abhay Ot 787.20 05/15/2014 JASON WRIGHT, [facility] Ot 288.60 05/15/2014 AMELIA WRIGHT, [facility] Ot 530.81 05/15/2014 AMELIA WRIGHT, PASTOR Abhay Ot 553.3 05/15/2014 AMELIA WRIGHT, PASTOR Abhay Ot 787.20 05/15/2014 AMELIA WRIGHT, [facility] Ot 348.89 05/15/2014 AMELIA WRIGHT, [facility] Ot 780.97 05/15/2014 AMELIA WRIGHT, PASTOR Abhay Ot 781.99 05/15/2014 Ot [...] Blank Ot 789.09 05/15/2014 AMELIA WRIGHT, PASTOR Balnk Ot 789.1 05/15/2014 AMELIA WRIGHT, PASTOR Blank [...] TRISTAN WRIGHT, ALBERTASEELAN Ot 397.0 05/15/2014 TRISTAN WRIGHT, JAYASEELAN Ot 401.9 05/15/2014 [...] PASTOR J Ot 787.20 05/15/2014 JASON WRIGHT, [facility] Ot 288.60 05/17/2014 AMELIA WRIGHT, PASTOR J [...] AMELIA WRIGHT, PASTOR J Ot 305.1 08/26/2014 AMELIA WRIGHT, PASTOR J Ot 401.9 08/26/2014 AMELIA [...] 08/26/2014 TRISTAN WRIGHT, JAYASEELAN Ot 786.50 08/26/2014 MAELIA WRIGHT, [facility] Ot 251.2 08/26/2014 AMELIA WRIGHT, [facility] Ot 790.29 08/26/2014 AMELIA WRIGHT, [facility] Ot 780.39 08/26/2014 AMELIA WRIGHT, PASTOR J Ot 348.89 08/26/2014 AMELIA WRIGHT, [facility] Ot 780.97 08/26/2014 AMELIA WRIGHT, [facility] Ot 781.99 08/26/2014 AMELIA WRIGHT, PASTOR J Ot 530.81 08/26/2014 AMELIA WRIGHT, [place] J Ot 553.3 08/26/2014 AMELIA WRIGHT, [place] J Ot 787.20 08/26/2014 JASON WRIGHT, GILBERT [...] GILBERT K Ot V58.69 08/26/[address] [facility] Ot 401.9 08/26/2014 GERRY WRIHGT, YUKO Blank Ot 785.0 08/26/2014 GERRY WRIGHT, YUKO Blank Ot 785.1 08/26/2014 GERRY WRIGHT, YUKO Blank [...] PASTOR J Ot 794.09 01/15/2015 AMELIA WRIGHT, APSTOR J Ot 783.1 01/15/2015 AMELIA WRIGHT, PASTOR J Ot 787.3 01/15/2015 AMELIA WRIGHT, PASTOR J Ot 789.09 01/15/2015 AMELIA WRIGHT, PASTOR J Ot 789.1 01/15/2015 AMELIA WRIGHT, PASTOR J Ot 723.1 01/15/2015 AMELIA WRIGHT, PASTOR J Ot 729.5 01/15/2015 AMELIA WRIGHT, PASTOR J Ot 719.40 01/15/2015 AMELIA WRIGHT, PASTOR J Ot 780.79 01/15/2015 AMELIA WRIGHT, PASTOR J Ot 782.3 01/15/2015 AMELIA WRIGHT, PASTOR J Ot 785.0 01/15/2015 AMELIA WRIGHT, PASTOR J Ot 719.40 [...] JASON WRIGHT, GILBERT Esqueda Ot 238.71 01/15/2015 JASON WRIGHT, GILBERT Esqueda Ot 272.4 01/15/2015 JASON [...] SKIN 03/29/2015 JOSE ADLER DO Ot Z79.82 NURSING HOME (CURRENT) USE OF ASPIRIN 03/29/2015 JOSE ADLER DO Ot Z79.899 OTHER VACCINE CUSTOMER REPRESENTATIVE (CURRENT) DRUG THERAPY 03/29/2015 JOSE ADLER DO [...] GIDDINESS 05/22/2015 THELMA FARAH APRN Ot Z79.02 VACCINE CUSTOMER REPRESENTATIVE (CURRENT) USE OF ANTITHROMBOTI 05/22/2015 THELMA FARAH CUSTOM APPLICATOR Ot Z79.82 VACCINE CUSTOMER REPRESENTATIVE (CURRENT) USE OF ASPIRIN 05/24/2015 RONAN SOTO MD A Ot E11.9 TYPE 2 DIABETES MELLITUS WITHOUT COMPLIC 05/24/2015 RONAN SOTO MD A Ot F17.210 NICOTINE DEPENDENCE, CIGARETTES, UNCOMPL 05/24/2015 RONAN SOTO MD A Ot R20.2 PARESTHESIA OF SKIN 05/24/2015 RONAN SOTO MD A Ot Z79.82 VACCINE CUSTOMER REPRESENTATIVE (CURRENT) USE OF ASPIRIN 05/24/2015 RONAN SOTO MD A Ot Z79.899 OTHER NURSING HOME (CURRENT) DRUG THERAPY 06/04/2015 RONAN SOTO MD [...] HYPERTENSION 07/25/2015 GILBERT GOMEZ MD Ot Z79.02 VACCINE CUSTOMER REPRESENTATIVE (CURRENT) USE OF ANTITHROMBOTI 07/25/2015 GILBERT GOMEZ MD Ot Z79.82 VACCINE CUSTOMER REPRESENTATIVE (CURRENT) USE OF ASPIRIN 08/01/2015 GILBERT GOMEZ [...] HYPERTENSION 08/06/2015 GILBERT GOMEZ MD Ot Z79.02 NURSING HOME (CURRENT) USE OF ANTITHROMBOTI 08/06/2015 GILBERT GOMEZ MD, Ot Z79.82 NURSING HOME (CURRENT) USE OF ASPIRIN 09/03/2015 GILBERT GOMEZ [...] 09/03/2015 GILBERT GOMEZ MD Ot Z79.899 OTHER NURSING HOME (CURRENT) DRUG THERAPY 09/10/2015 AKBAR EVANS MD, [...] 780.39 OTHER CONVULSIONS 09/10/2015 Ot 794.09 ABN BI DATA ARCHITECT FUNCT STUDY NEC 09/10/2015 Ot 794.8 ABN LIVER FUNCTION STUDY 09/10/2015 Ot 368.9 VISUAL DISTURBANCE NOS 09/10/2015 Ot 780.2 SYNCOPE AND COLLAPSE 09/10/2015 Ot 780.79 OTH MALAISE FATIGUE 09/10/2015 Ot 786.2 COUGH 09/10/2015 Ot 786.50 CHEST PAIN NOS 09/10/2015 AMELIA WRIGHT, PASTOR Blank Ot 794.09 ABN BI DATA ARCHITECT FUNCT STUDY NEC 09/10/2015 AMELIA WRIGHT, PASTOR Blank Ot 783.1 ABNORMAL WEIGHT GAIN 09/10/2015 AMELIA WRIGHT, PATSOR Blank Ot 787.3 FLATUL/ERUCTAT/GAS PAIN 09/10/2015 AMELIA [...] WRIGHT, PASTOR Blank Ot 782.3 EDEMA 09/10/2015 AMEILA WRIGHT, PASTOR Blank Ot 785.0 TACHYCARDIA NOS [...] HYPERTENSION NOS 09/10/2015 TRISTAN WRIGHT, SULEMA Ot 424.0 MITRAL VALVE DISORDER 09/10/2015 [...] MD Ot R00.0 TACHYCARDIA, UNSPECIFIED 09/10/2015 GILBERT GOMEZ MD Ot Z79.899 OTHER NURSING HOME (CURRENT) DRUG THERAPY 09/10/2015 YUKO GARRETT MD Ot I10 ESSENTIAL (PRIMARY) HYPERTENSION 09/10/2015 YUKO GARRETT MD Ot R00.2 PALPITATIONS 09/10/2015 YUKO GARRETT MD Ot R06.02 SHORTNESS OF BREATH 09/10/2015 YUKO GARRETT MD Ot R07.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.4 NURSING HOME (CURRENT) USE OF INSULIN 09/10/2015 PASTOR CISNEROS [...] HYPERTENSION 09/10/2015 GILBERT GOMEZ MD Ot Z79.02 NURSING HOME (CURRENT) USE OF ANTITHROMBOTI 09/10/2015 GILBERT GOMEZ MD, Ot Z79.82 NURSING HOME (CURRENT) USE OF ASPIRIN 09/10/2015 AKBAR EVANS [...] MD Ot I10 ESSENTIAL (PRIMARY) HYPERTENSION 10/02/2015 GILBETR GOMEZ MD Ot 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 10/02/2015 GILBERT GOMEZ MD Ot I69.998 OTHER SEQUELAE FOLLOWING UNSPECIFIED CER 10/02/2015 GILBERT GOMEZ MD Ot M62.81 MUSCLE WEAKNESS (GENERALIZED) 10/02/2015 GILBERT GOMEZ MD Ot R00.0 TACHYCARDIA, UNSPECIFIED 10/02/2015 GILBERT GOMEZ MD Ot Z79.899 OTHER VACCINE CUSTOMER REPRESENTATIVE (CURRENT) DRUG THERAPY 10/05/2015 JOSE ADLER DO [...] 10/29/2015 GILBERT GOMEZ MD Ot Z79.899 OTHER VACCINE CUSTOMER REPRESENTATIVE (CURRENT) DRUG THERAPY 10/30/2015 GILBERT GOMEZ MD [...] 10/30/2015 GILBERT GOMEZ MD Ot Z79.899 OTHER NURSING HOME (CURRENT) DRUG THERAPY 11/04/2015 GILBERT GOMEZ MD [...] 11/04/2015 GILBERT GOMEZ MD Ot Z79.899 OTHER VACCINE CUSTOMER REPRESENTATIVE (CURRENT) DRUG THERAPY 12/11/2015 GILBERT GOMEZ MD, [...] 12/11/2015 GILBERT GOMEZ MD Ot Z79.899 OTHER VACCINE CUSTOMER REPRESENTATIVE (CURRENT) DRUG THERAPY 12/19/2015 GILBERT GOMEZ MD [...] 12/19/2015 GILBERT GOMEZ MD Ot Z79.899 OTHER NURSING HOME (CURRENT) DRUG THERAPY 01/02/2016 GILBERT GOMEZ MD [...] 01/02/2016 GILBERT GOMEZ MD Ot Z79.899 OTHER VACCINE CUSTOMER REPRESENTATIVE (CURRENT) DRUG THERAPY 03/17/2016 GILBERT GOMEZ MD [...] 03/17/2016 GILBERT GOMEZ MD Ot Z79.899 OTHER NURSING HOME (CURRENT) DRUG THERAPY 03/23/2016 Ot 272.4 HYPERLIPIDEMIA [...] 780.39 OTHER CONVULSIONS 03/23/2016 Ot 794.09 ABN BI DATA ARCHITECT FUNCT STUDY NEC 03/23/2016 Ot 794.8 ABN LIVER FUNCTION STUDY 03/23/2016 Ot 368.9 VISUAL DISTURBANCE NOS 03/23/2016 Ot 780.2 SYNCOPE AND COLLAPSE 03/23/2016 Ot 780.79 OTH MALAISE FATIGUE 03/23/2016 Ot 786.2 COUGH 03/23/2016 Ot 786.50 CHEST PAIN NOS 03/23/2016 AMELIA WRIGHT, PASTOR Blank Ot 794.09 ABN BI DATA ARCHITECT FUNCT STUDY NEC 03/23/2016 PASTOR CISNEROS MD [...] COMPLIC 03/23/2016 PASTOR CISNEROS MD Ot Z79.4 VACCINE CUSTOMER REPRESENTATIVE (CURRENT) USE OF INSULIN 03/23/2016 PASTOR CISNEROS [...] (PRIMARY) HYPERTENSION 03/23/2016 GILBERT GOMEZ MD Ot Z79.02 NURSING HOME (CURRENT) USE OF ANTITHROMBOTI 03/23/2016 GILBERT GOMEZ MD Ot Z79.82 VACCINE CUSTOMER REPRESENTATIVE (CURRENT) USE OF ASPIRIN 03/23/2016 GILBERT GOMEZ [...] 03/23/2016 GILBERT GOMEZ MD Ot Z79.899 OTHER NURSING HOME (CURRENT) DRUG THERAPY 06/15/2016 GILBERT GOMEZ MD, [...] JASON WRIGHT GILBERT Esqueda Ot Z79.899 OTHER NURSING HOME (CURRENT) DRUG THERAPY 06/30/2016 Ot 530.81 ESOPHAGEAL [...] 780.39 OTHER CONVULSIONS 06/30/2016 Ot 794.09 ABN BI DATA ARCHITECT FUNCT STUDY NEC 06/30/2016 Ot 794.8 ABN LIVER FUNCTION STUDY 06/30/2016 Ot 368.9 VISUAL DISTURBANCE NOS 06/30/2016 Ot 780.2 SYNCOPE AND COLLAPSE 06/30/2016 Ot 780.79 OTH MALAISE FATIGUE 06/30/2016 Ot 786.2 COUGH 06/30/2016 Ot 786.50 CHEST PAIN NOS 06/30/2016 AMELIA WRIGHT, PASTOR Blank Ot 794.09 ABN BI DATA ARCHITECT FUNCT STUDY NEC 06/30/2016 AMELIA WRIGHT, PASTOR [...] COMPLIC 06/30/2016 PASTOR CISNEROS MD Ot Z79.4 NURSING HOME (CURRENT) USE OF INSULIN 06/30/2016 PASTOR CISNEROS [...] HYPERTENSION 06/30/2016 GILBERT GOMEZ MD Ot Z79.02 NURSING HOME (CURRENT) USE OF ANTITHROMBOTI 06/30/2016 GILBERT GOMEZ MD Ot Z79.82 VACCINE CUSTOMER REPRESENTATIVE (CURRENT) USE OF ASPIRIN 06/30/2016 GILBERT GOMEZ [...] 06/30/2016 GILBERT GOMEZ MD Ot Z79.899 OTHER NURSING HOME (CURRENT) DRUG THERAPY 06/30/2016 GILBERT GOMEZ MD [...] 06/30/2016 GILBERT GOMEZ MD Ot Z79.899 OTHER NURSING HOME (CURRENT) DRUG THERAPY 06/30/2016 Ot 530.81 ESOPHAGEAL [...] 780.39 OTHER CONVULSIONS 06/30/2016 Ot 794.09 ABN BI DATA ARCHITECT FUNCT STUDY NEC 06/30/2016 Ot 794.8 ABN LIVER FUNCTION STUDY 06/30/2016 Ot 368.9 VISUAL DISTURBANCE NOS 06/30/2016 Ot 780.2 SYNCOPE AND COLLAPSE 06/30/2016 Ot 780.79 OTH MALAISE FATIGUE 06/30/2016 Ot 786.2 COUGH 06/30/2016 Ot 786.50 CHEST PAIN NOS 06/30/2016 AMELIA WRIGHT, PASTOR Blank Ot 794.09 ABN BI DATA ARCHITECT FUNCT STUDY NEC 06/30/2016 AMELIA WRIGHT, PASTOR [...] COMPLIC 06/30/2016 PASTOR CISNEROS MD Ot Z79.4 NURSING HOME (CURRENT) USE OF INSULIN 06/30/2016 PASTOR CISNEROS [...] HYPERTENSION 06/30/2016 GILBERT GOMEZ MD, Ot Z79.02 VACCINE CUSTOMER REPRESENTATIVE (CURRENT) USE OF ANTITHROMBOTI 06/30/2016 GILBERT GOMEZ MD, Ot Z79.82 NURSING HOME (CURRENT) USE OF ASPIRIN 06/30/2016 GILBERT GOMEZ [...] 06/30/2016 GILBERT GOMEZ MD Ot Z79.899 OTHER VACCINE CUSTOMER REPRESENTATIVE (CURRENT) DRUG THERAPY 07/09/2016 GILBERT GOMEZ MD, [...] 07/09/2016 GILBERT GOMEZ MD Ot Z79.899 OTHER NURSING HOME (CURRENT) DRUG THERAPY 08/02/2016 GILBERT GOMEZ MD Ot R42 DIZZINESS AND GIDDINESS 08/02/2016 GILBERT GOMZE MD Ot R51 HEADACHE 08/16/2016 PRISCILLA HUNT Ot E11.9 TYPE 2 DIABETES MELLITUS WITHOUT COMPLIC 08/16/2016 PRISCILLA HUNT Ot F17.210 NICOTINE DEPENDENCE, CIGARETTES, UNCOMPL 08/16/2016 PRISCILLA HUNT Ot I10 ESSENTIAL (PRIMARY) HYPERTENSION 08/16/2016 PRISCILLA HUNT Ot N30.01 ACUTE CYSTITIS WITH HEMATURIA 08/16/2016 PRISCILLA HUNT Ot R31.0 GROSS HEMATURIA 08/16/2016 PRISCILLA HUNT Ot Z79.02 NURSING HOME (CURRENT) USE OF ANTITHROMBOTI 08/16/2016 PRISCILLA HUNT Ot Z79.82 VACCINE CUSTOMER REPRESENTATIVE (CURRENT) USE OF ASPIRIN 08/16/2016 PRISCILLA HUNT Ot Z79.899 OTHER VACCINE CUSTOMER REPRESENTATIVE (CURRENT) DRUG THERAPY 08/19/2016 PRISCILLA HUNT Ot E11.9 TYPE 2 DIABETES MELLITUS WITHOUT COMPLIC 08/19/2016 PRISCILLA HUNT Ot F17.210 NICOTINE DEPENDENCE, CIGARETTES, UNCOMPL 08/19/2016 PRISCILLA HUNT L Ot I10 ESSENTIAL (PRIMARY) HYPERTENSION 08/19/2016 PRISCILLA HUNT Ot N30.01 ACUTE CYSTITIS WITH HEMATURIA 08/19/2016 PRISCILLA HUNT Ot R31.0 GROSS HEMATURIA 08/19/2016 PRISCILLA HUNT Ot Z79.02 VACCINE CUSTOMER REPRESENTATIVE (CURRENT) USE OF ANTITHROMBOTI 08/19/2016 PRISCILLA HUNT Ot Z79.82 VACCINE CUSTOMER REPRESENTATIVE (CURRENT) USE OF ASPIRIN 08/19/2016 PRISCILLA HUNT L Ot Z79.899 OTHER VACCINE CUSTOMER REPRESENTATIVE (CURRENT) DRUG THERAPY 09/03/2016 GILBERT GOMEZ MD [...] 09/12/2016 GILBERT GOMEZ MD Ot Z79.899 OTHER VACCINE CUSTOMER REPRESENTATIVE (CURRENT) DRUG THERAPY 11/09/2016 AKBAR EVANS MD [...] GIDDINESS 11/09/2016 AKBAR EVANS MD, Ot Z79.82 NURSING HOME (CURRENT) USE OF ASPIRIN 11/09/2016 AKBAR EVANS [...] GIDDINESS 11/11/2016 AKBAR EVANS MD, Ot Z79.82 VACCINE CUSTOMER REPRESENTATIVE (CURRENT) USE OF ASPIRIN 11/11/2016 AKBAR EVANS [...] 12/02/2016 IGOR ARANA MD Ot Z79.899 OTHER VACCINE CUSTOMER REPRESENTATIVE (CURRENT) DRUG THERAPY 12/21/2016 IGOR ARANA MD Ot 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) THROMBOCYTHEMIA 12/21/2016 IGOR ARANA MD, Ot D72.829 ELEVATED WHITE BLOOD CELL COUNT, UNSPECI 12/21/2016 IGOR ARANA MD Ot E78.5 HYPERLIPIDEMIA, UNSPECIFIED 12/21/2016 IGOR ARANA MD Ot I10 ESSENTIAL (PRIMARY) HYPERTENSION 12/21/2016 IGOR ARANA MD Ot 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 12/21/2016 IGOR ARANA MD Ot I69.998 OTHER SEQUELAE FOLLOWING UNSPECIFIED CER 12/21/2016 IGOR ARANA MD Ot M62.81 MUSCLE WEAKNESS (GENERALIZED) 12/21/2016 IGOR ARANA MD Ot R00.0 TACHYCARDIA, UNSPECIFIED 12/21/2016 IGOR ARANA MD Ot Z79.899 OTHER VACCINE CUSTOMER REPRESENTATIVE (CURRENT) DRUG THERAPY 02/11/2017 IGOR ARANA MD, Ot 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) THROMBOCYTHEMIA 02/11/2017 IGOR ARANA MD, Ot D72.829 ELEVATED WHITE BLOOD CELL COUNT, UNSPECI 02/11/2017 IGOR ARANA MD, Ot E78.5 HYPERLIPIDEMIA, UNSPECIFIED 02/11/2017 IGOR ARANA MD, Ot I10 ESSENTIAL (PRIMARY) HYPERTENSION 02/11/2017 IGOR ARANA MD, Ot 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 02/11/2017 IGOR ARANA MD Ot I69.998 OTHER SEQUELAE FOLLOWING UNSPECIFIED CER 02/11/2017 IGOR ARANA MD Ot M62.81 MUSCLE WEAKNESS (GENERALIZED) 02/11/2017 IGOR ARANA MD Ot R00.0 TACHYCARDIA, UNSPECIFIED 02/11/2017 IGOR ARANA MD, Ot Z79.899 OTHER VACCINE CUSTOMER REPRESENTATIVE (CURRENT) DRUG THERAPY 03/12/2017 PRISCILLA HUNT Ot E11.9 TYPE 2 DIABETES MELLITUS WITHOUT COMPLIC 03/12/2017 PRISCILLA HUNT Ot E86.9 VOLUME DEPLETION, UNSPECIFIED 03/12/2017 PRISCILLA HUNT Ot F17.210 NICOTINE DEPENDENCE, CIGARETTES, UNCOMPL 03/12/2017 PRISCILLA HUNT Ot F41.9 ANXIETY DISORDER, UNSPECIFIED 03/12/2017 PRISCILLA HUNT Ot G43.909 MIGRAINE, UNSP, NOT INTRACTABLE, WITHOUT 03/12/2017 PRISCILLA HUNT Ot I10 ESSENTIAL (PRIMARY) HYPERTENSION 03/12/2017 PRISCILLA HUNT Ot K21.9 GASTRO-ESOPHAGEAL REFLUX DISEASE WITHOUT 03/12/2017 PRISCILLA HUNT Ot R42 DIZZINESS AND GIDDINESS 03/12/2017 PRISCILLA HUNT Ot R93.5 ABN FINDINGS ON DX IMAGING OF ABD REGION 03/12/2017 PRISCILLA HUNT Ot Z79.82 NURSING HOME (CURRENT) USE OF ASPIRIN 03/12/2017 PRISCILLA HUNT Ot Z80.0 FAMILY HISTORY OF MALIGNANT NEOPLASM OF 03/12/2017 PRISCILLA HUNT Ot Z82.49 FAMILY HX OF ISCHEM HEART DIS AND OTH DI 03/12/2017 PRISCILLA HUNT Ot Z86.73 PRSNL HX OF TIA (TIA), AND CEREB INFRC W 03/12/2017 PRISCILLA HUNT Ot Z87.19 PERSONAL HISTORY OF OTHER DISEASES OF TH 03/12/2017 PRISCILLA HUNT Ot Z87.59 PERSONAL HISTORY OF COMP OF PREG, CHLDBR 03/12/2017 PRISCILLA HUNT Ot Z98.51 TUBAL LIGATION STATUS 03/20/2017 IGOR ARANA MD, Ot 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) THROMBOCYTHEMIA 03/20/2017 IGOR ARANA MD, Ot D72.829 ELEVATED WHITE BLOOD CELL COUNT, UNSPECI 03/20/2017 IGOR ARANA MD, Ot E78.5 HYPERLIPIDEMIA, UNSPECIFIED 03/20/2017 IGOR ARANA MD, Ot I10 ESSENTIAL (PRIMARY) HYPERTENSION 03/20/2017 IGOR ARANA MD, Ot 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 03/20/2017 IGOR ARANA MD, Ot I69.998 OTHER SEQUELAE FOLLOWING UNSPECIFIED CER 03/20/2017 IGOR ARANA MD Ot M62.81 MUSCLE WEAKNESS (GENERALIZED) 03/20/2017 IGOR ARANA MD Ot R00.0 TACHYCARDIA, UNSPECIFIED 03/20/2017 IGOR ARANA MD, Ot Z79.899 OTHER VACCINE CUSTOMER REPRESENTATIVE (CURRENT) DRUG THERAPY 03/24/2017 PRISCILLA HUNT Ot E11.9 TYPE 2 DIABETES MELLITUS WITHOUT COMPLIC 03/24/2017 PRISCILLA HUNT Ot E86.9 VOLUME DEPLETION, UNSPECIFIED 03/24/2017 PRISCILLA HUNT Ot F17.210 NICOTINE DEPENDENCE, CIGARETTES, UNCOMPL 03/24/2017 PRISCILLA HUNT Ot F41.9 ANXIETY DISORDER, UNSPECIFIED 03/24/2017 PRISCILLA HUNT Ot G43.909 MIGRAINE, UNSP, NOT INTRACTABLE, WITHOUT 03/24/2017 PRISCILLA HUNT Ot I10 ESSENTIAL (PRIMARY) HYPERTENSION 03/24/2017 PRISCILLA HUNT Ot K21.9 GASTRO-ESOPHAGEAL REFLUX DISEASE WITHOUT 03/24/2017 PRISCILLA UHNT Ot R42 DIZZINESS AND GIDDINESS 03/24/2017 PRISCILLA HUNT Ot R93.5 ABN FINDINGS ON DX IMAGING OF ABD REGION 03/24/2017 PRISCILLA HUNT Ot Z79.82 NURSING HOME (CURRENT) USE OF ASPIRIN 03/24/2017 PRISCILLA HUNT Ot Z80.0 FAMILY HISTORY OF MALIGNANT NEOPLASM OF 03/24/2017 PRISCILLA HUNT Ot Z82.49 FAMILY HX OF ISCHEM HEART DIS AND OTH DI 03/24/2017 PRISCILLA HUNT Ot Z86.73 PRSNL HX OF TIA (TIA), AND CEREB INFRC W 03/24/2017 PRISCILLA HUNT Ot Z87.19 PERSONAL HISTORY OF OTHER DISEASES OF TH 03/24/2017 PRISCILLA HUNT Ot Z87.59 PERSONAL HISTORY OF COMP OF PREG, CHLDBR 03/24/2017 PRISCILLA HUNT Ot Z98.51 TUBAL LIGATION STATUS 04/05/2017 MIRELLA MCMILLAN APRN Ot J43.8 OTHER EMPHYSEMA 04/05/2017 MIRELLA MCMILLAN APRN Ot R91.1 SOLITARY PULMONARY NODULE 04/05/2017 MIRELLA MCMILLAN APRN Ot Z72.0 TOBACCO USE 04/09/2017 AKBAR EVANS MD Ot E11.65 TYPE 2 DIABETES MELLITUS WITH HYPERGLYCE 04/09/2017 AKBAR EVANS MD Ot E87.8 OTH DISORDERS OF ELECTROLYTE AND FLUID B 04/09/2017 AKBAR EVANS MD Ot F17.210 NICOTINE DEPENDENCE, CIGARETTES, UNCOMPL 04/09/2017 AKBAR EVANS MD Ot F41.9 ANXIETY DISORDER, UNSPECIFIED 04/09/2017 AKBAR EVANS MD Ot I10 ESSENTIAL (PRIMARY) HYPERTENSION 04/09/2017 AKBAR EVASN MD Ot K21.9 GASTRO-ESOPHAGEAL REFLUX DISEASE WITHOUT 04/09/2017 AKBAR EVANS MD Ot M19.90 UNSPECIFIED OSTEOARTHRITIS, UNSPECIFIED 04/09/2017 AKBAR EVANS MD Ot R42 DIZZINESS AND GIDDINESS 04/09/2017 AKBAR EVANS MD Ot Z79.82 NURSING HOME (CURRENT) USE OF ASPIRIN 04/09/2017 AKBAR EVANS MD Ot Z80.0 FAMILY HISTORY OF MALIGNANT NEOPLASM OF 04/09/2017 AKBAR EVANS MD Ot Z82.49 FAMILY HX OF ISCHEM HEART DIS AND OTH DI 04/09/2017 AKBAR EVANS MD, Ot Z86.73 PRSNL HX OF TIA (TIA), AND CEREB INFRC W 04/09/2017 AKBAR EVANS MD, Ot Z87.19 PERSONAL HISTORY OF OTHER DISEASES OF TH 04/09/2017 AKBAR EVANS MD, Ot Z87.448 PERSONAL HISTORY OF OTHER DISEASES OF UR 04/09/2017 AKBAR EVANS MD, Ot Z87.59 PERSONAL HISTORY OF COMP OF PREG, CHLDBR 04/09/2017 AKBAR EVANS MD, Ot Z98.51 TUBAL LIGATION STATUS Procedures There is no data. Results Test [...] erythrocyte count by microscopy (number/high power field) TNTC NRG Automated urine sediment leukocyte count by [...] culture - 08/16/16 15:00 Bacterial urine culture [id number] NRG COLONY COUNT 10,000/ML - 100,000/ML NRG [...] susceptibility test by minimum inhibitory concentration - [facility] Complete blood count (CBC) with automated white [...] urinalysis with reflex to culture NO NRG Complete blood count (CBC) with automated white blood cell (WBC) differential - 03/12/17 12:42 Blood leukocytes automated count (number/volume) 11.9 10*3/uL 4.3-11.0 Blood erythrocytes automated count (number/volume) 4.98 10*6/uL 4.35-5.85 Venous blood hemoglobin measurement (mass/volume) 15.5 g/dL 11.5-16.0 Blood hematocrit (volume fraction) 48 % 35-52 Automated erythrocyte mean corpuscular volume 96 [foz_us] 80-99 Automated erythrocyte mean corpuscular hemoglobin (mass per erythrocyte) 31 pg 25-34 Automated erythrocyte mean corpuscular hemoglobin concentration measurement ( mass/volume) 32 g/dL 32-36 Automated erythrocyte distribution width ratio 13.7 % 10.0-14.5 Automated blood platelet count (count/volume) 322 10*3/uL 130-400 Automated blood platelet mean volume measurement 11.0 [foz_us] 7.4-10.4 Automated blood neutrophils/100 leukocytes 64 % 42-75 Automated blood lymphocytes/100 leukocytes 27 % 12-44 Blood monocytes/100 leukocytes 8 % 0-12 Automated blood eosinophils/100 leukocytes 1 % 0-10 Automated blood basophils/100 leukocytes 1 % 0-10 Blood neutrophils automated count (number/volume) 7.6 10*3 1.8-7.8 Blood lymphocytes automated count (number/volume) 3.2 10*3 1.0-4.0 Blood monocytes automated count (number/volume) 1.0 10*3 0.0-1.0 Automated eosinophil count 0.1 10*3/uL 0.0-0.3 Automated blood basophil count (count/volume) 0.1 10*3/uL 0.0-0.1 Comprehensive metabolic panel - 03/12/17 12:42 Serum or plasma sodium measurement (moles/volume) 139 mmol/L 135-145 Serum or plasma potassium measurement (moles/volume) 4.0 mmol/L 3.6-5.0 Serum or plasma chloride measurement (moles/volume) 96 mmol/L 98-107 Carbon dioxide 28 mmol/L 21-32 Serum or plasma anion gap determination (moles/volume) 15 mmol/L 5-14 Serum or plasma urea nitrogen measurement (mass/volume) 10 mg/dL 7-18 Serum or plasma creatinine measurement (mass/volume) 0.66 mg/dL 0.60-1.30 Serum or plasma urea nitrogen/creatinine mass ratio 15 NRG Serum or plasma creatinine measurement with calculation of estimated glomerular filtration rate > NRG Serum or plasma glucose measurement (mass/volume) 203 mg/dL 70-105 Serum or plasma calcium measurement (mass/volume) 9.8 mg/dL 8.5-10.1 Serum or plasma total bilirubin measurement (mass/volume) 0.7 mg/dL 0.1-1.0 Serum or plasma alkaline phosphatase measurement (enzymatic activity/volume) 92 U/L 40-136 Serum or plasma aspartate aminotransferase measurement (enzymatic activity/ volume) 70 U/L 5-34 Serum or plasma alanine aminotransferase measurement (enzymatic activity/volume ) 38 U/L 0-55 Serum or plasma protein measurement (mass/volume) 7.9 g/dL 6.4-8.2 Serum or plasma albumin measurement (mass/volume) 4.0 g/dL 3.2-4.5 Serum or plasma troponin i.cardiac measurement (mass/volume) - 03/12/17 12:42 Serum or plasma troponin i.cardiac measurement (mass/volume) < ng/ mL <0.30 Lipase - 03/12/17 12:42 Lipase 58 U/L 8-78 Serum or plasma thyrotropin measurement by detection limit <=0.05 miu/l (units/ volume) - 03/12/17 12:42 Serum or plasma thyrotropin measurement by detection limit <=0.05 miu/l (units/ volume) 1.52 u[iU]/mL 0.35-4.94 Serum or plasma C reactive protein measurement (mass/volume) - 03/12/17 12:42 Serum or plasma C reactive protein measurement (mass/volume) 1.52 mg /dL 0.00-0.50 Serum or plasma ethanol measurement (mass/volume) - 03/12/17 12:42 Serum or plasma ethanol measurement (mass/volume) 11 mg/dL <10 Complete urinalysis with reflex to culture - 03/12/17 14:30 Urine color determination YELLOW NRG Urine clarity determination CLEAR NRG Urine pH measurement by test strip 6.5 5-9 Specific gravity of urine by test strip 1.015 1.016- 1.022 Urine protein assay by test strip, semi-quantitative 1+ NEGATIVE Urine glucose detection by automated test strip 1+ NEGATIVE Erythrocytes detection in urine sediment by [...] count by microscopy (number/high power field ) NONE NRG Bacteria detection in urine sediment by light microscopy TRACE NRG Squamous epithelial cells detection in urine sediment by light microscopy 2-5 NRG Crystals detection in urine sediment by light microscopy NONE NRG Casts detection in urine sediment by light microscopy NONE NRG Mucus detection in urine sediment by light microscopy NEGATIVE NRG Complete urinalysis with reflex to culture NO NRG Urine drug screening test - 03/12/17 14:30 Urine phencyclidine detection by screening method NEGATIVE NEGATIVE Urine benzodiazepines detection by screening method POSITIVE NEGATIVE Urine cocaine detection NEGATIVE NEGATIVE Urine amphetamines detection by screening method NEGATIVE NEGATIVE Urine methamphetamine detection by screening method NEGATIVE NEGATIVE Urine cannabinoids detection by screening method NEGATIVE NEGATIVE Urine opiates detection by screening method NEGATIVE NEGATIVE Urine barbiturates detection NEGATIVE NEGATIVE Screening urine tricyclic antidepressants detection NEGATIVE NEGATIVE Urine methadone detection by screening method NEGATIVE NEGATIVE Urine oxycodone detection NEGATIVE NEGATIVE Urine propoxyphene detection NEGATIVE NEGATIVE Influenza virus A and B antigen detection - 04/16/17 23:26 FLU RESULT NEGATIVE FOR INFLUENZA A AND B ANTIGENS BY [facility] Complete blood count (CBC) with automated white blood cell (WBC) differential - 04/17/17 00:08 Blood leukocytes automated count (number/volume) 13.9 10*3/uL 4.3-11.0 Blood erythrocytes automated count (number/volume) 4.68 10*6/uL 4.35-5.85 Venous blood hemoglobin measurement (mass/volume) 14.7 g/dL 11.5-16.0 Blood hematocrit (volume fraction) 45 % 35-52 Automated erythrocyte mean corpuscular volume 96 [foz_us] 80-99 Automated erythrocyte mean corpuscular hemoglobin (mass per erythrocyte) 31 pg 25-34 Automated erythrocyte mean corpuscular hemoglobin concentration measurement ( mass/volume) 33 g/dL 32-36 Automated erythrocyte distribution width ratio 13.9 % 10.0-14.5 Automated blood platelet count (count/volume) 280 10*3/uL 130-400 Automated blood platelet mean volume measurement 11.1 [foz_us] 7.4-10.4 Automated blood neutrophils/100 leukocytes 63 % 42-75 Automated blood lymphocytes/100 leukocytes 27 % 12-44 Blood monocytes/100 leukocytes 8 % 0-12 Automated blood eosinophils/100 leukocytes 2 % 0-10 Automated blood basophils/100 leukocytes 1 % 0-10 Blood neutrophils automated count (number/volume) 8.8 10*3 1.8-7.8 Blood lymphocytes automated count (number/volume) 3.7 10*3 1.0-4.0 Blood monocytes automated count (number/volume) 1.1 10*3 0.0-1.0 Automated eosinophil count 0.2 10*3/uL 0.0-0.3 Automated blood basophil count (count/volume) 0.1 10*3/uL 0.0-0.1 Comprehensive metabolic panel - 04/17/17 00:08 Serum or plasma sodium measurement (moles/volume) 138 mmol/L 135-145 Serum or plasma potassium measurement (moles/volume) 3.6 mmol/L 3.6-5.0 Serum or plasma chloride measurement (moles/volume) 95 mmol/L 98-107 Carbon dioxide 28 mmol/L 21-32 Serum or plasma anion gap determination (moles/volume) 15 mmol/L 5-14 Serum or plasma urea nitrogen measurement (mass/volume) 11 mg/dL 7-18 Serum or plasma creatinine measurement (mass/volume) 0.77 mg/dL 0.60-1.30 Serum or plasma urea nitrogen/creatinine mass ratio 14 NRG Serum or plasma creatinine measurement with calculation of estimated glomerular filtration rate > NRG Serum or plasma glucose measurement (mass/volume) 250 mg/dL 70-105 Serum or plasma calcium measurement (mass/volume) 9.8 mg/dL 8.5-10.1 Serum or plasma total bilirubin measurement (mass/volume) 0.6 mg/dL 0.1-1.0 Serum or plasma alkaline phosphatase measurement (enzymatic activity/volume) 102 U/L 40-136 Serum or plasma aspartate aminotransferase measurement (enzymatic activity/ volume) 62 U/L 5-34 Serum or plasma alanine aminotransferase measurement (enzymatic activity/volume ) 57 U/L 0-55 Serum or plasma protein measurement (mass/volume) 7.1 g/dL 6.4-8.2 Serum or plasma albumin measurement (mass/volume) 3.8 g/dL 3.2-4.5 Serum or plasma troponin i.cardiac measurement (mass/volume) - 04/17/17 00:08 Serum or plasma troponin i.cardiac measurement (mass/volume) < ng/ mL <0.30 Encounters ACCT No. Visit Date/Time Discharge Status Pt. Type Provider Facility Loc./Unit Complaint [id number] 04/05/2017 09:16:00 04/05/2017 23:59:59 CLS Outpatient MIRELLA MCMILLAN APRN Via [facility] RAD R91.1 LUNG NODULE [id number] 03/31/2017 09:35:00 03/31/2017 23:59:59 CLS Preadmit MIRELLA MCMILLAN APRN Via [facility] RAD I44.9 COPD [id number] 03/29/2017 10:15:00 03/29/2017 23:59:59 CLS Preadmit SOTERO HUIZAR APRN Via [facility] RAD LUNG NODULE INCREASING IN SIZE [id number] 03/21/2017 00:21:00 03/21/2017 23:59:59 CLS Preadmit IGOR ARANA MD [facility] ONC [id number] 12/20/2016 15:01:00 03/20/2017 00:01:00 DIS Outpatient YASMEEN WRIGHT, IGOR Via [facility] ONC [id number] 03/12/2017 12:32:00 03/12/2017 16:27:00 DIS Emergency PRISCILLA HUNT [facility] ER ABD PAIN, SHAKY, 4 PREVIOUS BRAIN-STEM FLORES [id number] 11/09/2016 20:08:00 11/09/2016 23:58:00 DIS Outpatient AKBAR EVANS MD [facility] ER DIZZINESS,NAUSEA [id number] 06/29/2016 15:16:00 09/12/2016 00:01:00 DIS Outpatient GILBERT GOMEZ MD [facility] ONC [id number] 08/16/2016 13:54:00 08/16/2016 16:50:00 DIS Emergency PRISCILLA HUNT [facility] ER UTI [id number] 07/02/2016 10:14:00 07/02/2016 23:59:59 CLS Outpatient GILBERT GOMEZ MD [facility] RAD HEADACHE,DIZZINESS [id number] 12/18/2015 09:01:00 03/17/2016 00:01:00 DIS Outpatient GILBERT GOMEZ MD [facility] ONC [id number] 09/18/2015 12:52:00 10/29/2015 00:01:00 DIS Outpatient GILBERT GOMEZ MD Via [facility] ONC [id number] 09/12/2015 20:37:00 2015 01:00:00 DIS Emergency JOSE ADLER DO [facility] ER DIZZINESS [id number] 09/10/2015 01:28:00 09/10/2015 03:57:00 DIS Emergency AKBAR EVANS MD [facility] ER RUSSELL,BLURRY EYES,BLOOD SUGAR HIGH,DIZZY [id number] 07/24/2015 09:02:00 07/24/2015 23:59:59 CLS Outpatient GILBERT GOMEZ MD [facility] ONC [id number] 05/23/2015 23:06:00 05/24/2015 00:31:00 DIS Emergency RONAN SOTO MD [facility] ER FULL BODY TINGLING/ NUMBNESS [id number] 05/22/2015 13:58:00 05/22/2015 16:11:00 DIS Emergency THELMA FARAH APRN [facility] ER DIZZINESS LIPS NUMBNESS [id number] 04/28/2015 11:14:00 04/28/2015 23:59:59 CLS Outpatient PASTOR CISNEROS MD [facility] RAD CALF PAIN,HEADACHES, DIABETES [id number] 03/28/2015 22:08:00 03/28/2015 23:59:59 CLS Emergency JOSE ADLER DO [facility] ER DIZZINESS,FACIAL NUMBNESS [id number] 03/24/2015 10:00:00 03/24/2015 23:59:59 CLS [facility]read[facility] [id number] 12/23/2014 17:00:00 03/23/2015 00:01:00 DIS Outpatient [facility] [id number] 03/21/2015 10:24:00 03/21/2015 23:59:59 CLS Outpatient PASTOR CISNEROS MD [facility] LAB TYPE 2 DIABETES INSULIN DEPENDENT [id number] 01/15/2015 08:11:00 01/15/2015 23:59:59 CLS Outpatient YUKO GARRETT MD [facility] CARD CPS,HTN,PALPITATIONS, SOB [id number] 12/02/2014 10:00:00 12/18/2014 00:01:00 DIS Outpatient [facility] DIABETES [id number] 07/25/2014 08:49:00 10/23/2014 00:01:00 DIS Outpatient GILBERT GOMEZ MD [facility] ONC [id number] 08/27/2014 15:20:00 08/27/2014 23:59:59 CLS Outpatient JACOB NEWSOME MD [facility] RAD FOLLOW UP PER RADIOLOGIST [id number] 08/26/2014 12:47:00 08/26/2014 23:59:59 CLS Outpatient JACOB NEWSOME MD [facility] RAD CEREBRAL ATHEROSCLEROSIS [id number] 07/23/2014 20:00:00 07/23/2014 23:59:59 CLS Preadmit YUKO GARRETT MD Via [facility] SLEEP SNORING,HTN,HX OF STROKE [id number] 07/18/2014 11:36:00 07/18/2014 15:39:00 DIS Emergency AKBAR EVANS MD [facility] ER DIZZINESS,NAUSEA [id number] 06/17/2014 08:15:00 06/17/2014 23:59:59 CLS Outpatient YUKO GARRETT MD [facility] CARD PALPITATIONS SOB HTN [id number] 01/24/2014 08:49:00 04/24/2014 00:01:00 DIS Outpatient GILBERT GOMEZ MD [facility] ONC [id number] 02/13/2014 10:00:00 03/29/2014 16:22:00 DIS Outpatient PASTOR CISNEROS MD [facility] REHAB CVA [id number] 11/22/2013 09:41:00 01/14/2014 00:01:00 DIS Outpatient PASTOR CISNEROS MD [facility] REHAB CVA [id number] 10/25/2013 10:49:00 01/09/2014 00:01:00 DIS Outpatient GILBERT GOMEZ MD [facility] ONC [id number] 12/18/2013 09:18:00 12/18/2013 23:59:59 CLS Outpatient PASTOR CISNEROS MD [facility] RAD CHOKING,TROUBLE SWALLOWING [id number] 12/14/2013 19:01:00 12/14/2013 20:23:00 DIS Emergency RONAN SOTO MD [facility] ER CONGESTION [id number] 10/04/2013 13:16:00 10/04/2013 23:59:59 CLS Outpatient PASTOR CISNEROS MD [facility] RAD NEUROLOGICAL CHANGES, RECENT STROKE [id number] 09/24/2013 18:13:00 09/28/2013 13:30:00 DIS Inpatient MICHELLE WRIGHT, SILVIA Meehan [facility] IRF CVA [id number] 09/15/2013 14:10:00 09/18/2013 12:35:00 DIS Outpatient PASTOR CISNEROS MD [facility] SDC VERTIGO [id number] 09/07/2013 08:36:00 09/07/2013 23:59:59 CLS Outpatient PASTOR CISNEROS MD [facility] RT SEIZURE TYPE ACTIVITY [id number] 07/03/2013 12:37:00 07/03/2013 23:59:59 CLS Outpatient TRISTAN WRIGHT, SULEMA [facility] CARD CP,HTN [id number] 06/20/2013 08:30:00 06/20/2013 23:59:59 CLS Outpatient PASTOR CISNEROS MD [facility] LAB HYPOGLYCEMIA,FLUXUATING BLOOD SUGAR [id number] 06/08/2013 09:00:00 06/08/2013 23:59:59 CLS Outpatient TRISTAN WRIGHT, SULEMA [facility] CARD CP,HTN [id number] 05/21/2013 14:03:00 05/21/2013 23:59:59 CLS Outpatient PASTOR CISNEROS MD Via [facility] CARD HYPERTENSION,PERIPHERD EDEMA,SMOKER,CARDIMEGALY,CH [id number] 05/17/2013 21:44:00 05/17/2013 23:59:59 CLS Outpatient PASTOR CISNEROS MD [facility] LAB LIPID PANEL [id number] 05/17/2013 12:24:00 05/17/2013 23:59:59 CLS Outpatient PASTOR CISNEROS MD [facility] LAB EDEMA,FATIGUE,TACHYCARDIA ,JOINT PAIN [id number] 02/02/2013 14:11:00 02/23/2013 10:40:00 DIS Outpatient PASTOR CISNEROS MD [facility] REHAB NECK PAIN, UPPER BACK PAIN RADIATING LEFT SHOULDER [id number] 10/31/2012 14:21:00 10/31/2012 23:59:59 CLS Outpatient PASTOR CISNEROS MD Via [facility] RAD NECK PAIN,TENDERNESS RADIATING FROM ARM TO BACK OF [id number] 09/04/2012 08:56:00 09/04/2012 23:59:59 CLS Outpatient PASTOR CISNEROS MD [facility] RAD ABD PAIN,BLOATING R. SIDED FIRMNESS [id number] 09/01/2012 09:16:00 09/01/2012 10:45:00 DIS Outpatient PASTOR CISNEROS MD [facility] SDC ABNORMAL MRI OF BRAIN; MULTIPLE SCLEROSIS [id number] 07/18/2012 08:50:00 07/18/2012 23:59:59 CLS Outpatient PASTOR CISNEROS MD [facility] RAD FOLLOW UP ABD MRI [id number] 04/17/2017 00:01:00 Document Registration [id number] 08/26/2014 12:46:00 Document Registration [id number] 05/19/2014 09:39:00 Document Registration [id number] 05/11/2014 19:49:00 Document Registration [id number] 06/26/2012 11:26:00 Document Registration [id number] 05/19/2012 09:58:00 Document Registration [id number] 04/20/2012 12:51:00 Document Registration [id number] 01/04/2012 12:04:00 Document Registration [id number] 12/31/2011 08:48:00 Document Registration [id number] 11/22/2011 22:34:00 Document Registration [id number] 10/08/2011 22:58:00 Document Registration [id number] 10/07/2011 13:12:00 Document Registration [id number] 07/26/2011 14:37:00 Document Registration [id number] 04/05/2011 08:01:00 Document Registration [id number] 02/03/2011 11:11:00 Document Registration [id number] 02/01/2011 11:54:00 Document Registration [id number] 12/08/2010 08:13:00 Document Registration [id number] 08/25/2009 10:44:00 Document Registration
== END 2017-04-17 01:15 | disposition home or self-care (01) ==
LOC: EDUNIT# 22:15 → ER 22:16
DX: J06.9 Acute upper respiratory infection, unspecified (principal); R07.81 Pleurodynia; G43.909 Migraine, unspecified, not intractable, without status migrainosus; F41.9 Anxiety disorder, unspecified; J44.9 Chronic obstructive pulmonary disease, unspecified; I10 Essential (primary) hypertension; E11.9 Type 2 diabetes mellitus without complications; F17.210 Nicotine dependence, cigarettes, uncomplicated; Z98.51 Tubal ligation status; Z86.73 Personal history of transient ischemic attack (TIA), and cerebral infarction without residual deficits; Z82.49 Family history of ischemic heart disease and other diseases of the circulatory system; Z79.01 Long term (current) use of anticoagulants; Z79.82 Long term (current) use of aspirin
CPT/HCPCS: 36415; 71046; 80053; 84484; 85025; 87804; 99282

== ENCOUNTER → 2017-04-27 | Outpatient (CLI) | payer MEDICARE, MEDICAID ==
[~2017-04-27] MED LIST changes: +PRD20T PO; +RT-ALBUTEROL SULF 2.5 MG/3 ML PRE-MIX VIAL INH ONE
== END ==
LOC: RAD 09:42
PROVIDERS: ATTEND Nurse Practitioner Family
DX: J44.9 Chronic obstructive pulmonary disease, unspecified (principal); R91.1 Solitary pulmonary nodule; J30.2 Other seasonal allergic rhinitis
CPT/HCPCS: 94060; 94726; 94729

== ENCOUNTER → 2017-06-23 | Outpatient (CLI) | payer MEDICARE, MEDICAID ==
[~2017-06-23] MED LIST changes: -RT-ALBUTEROL SULF 2.5 MG/3 ML PRE-MIX VIAL INH ONE
--- NOTE | 2017-06-23 10:26 | Diagnostic Imaging Report ---
PROCEDURE: US Abdomen, limited. TECHNIQUE: Multiple Real-time grayscale images were obtained over the abdomen in various projections. INDICATION: Right upper quadrant pain. FINDINGS: The liver measures up to 22 cm. The gallbladder is surgically absent. The common bile duct and pancreas are obscured by bowel gas. The right kidney is normal. There is no ascites. There is a ventral hernia which appears to contain omental fat. This measures 3.4 x 2.5 cm. IMPRESSION: Hepatomegaly. Ventral hernia containing only omental fat. Otherwise, unremarkable limited right upper quadrant ultrasound. Dictated by: Dictated on workstation # [id number]
== END ==
LOC: RAD 06:43
PROVIDERS: ATTEND Nurse Practitioner Family
DX: R16.0 Hepatomegaly, not elsewhere classified (principal); K43.9 Ventral hernia without obstruction or gangrene
CPT/HCPCS: 76705

== ENCOUNTER 2017-08-16 20:46 | Emergency (ER) | payer MEDICARE, MEDICAID ==
[~2017-08-16] VITALS: Ht 157.5 cm; Wt 88.9 kg
--- NOTE | 2017-08-16 21:05 | ED General ---
General Chief Complaint: Dizziness/Syncope Stated Complaint: RUSSELL;NECK PAIN Source of Information: Patient Exam Limitations: No Limitations History of Present Illness Date Seen by Provider: August 16, 2017 Time Seen by Provider: 21:03 Initial Comments To ER with reports of headache on the right side of the base of her head, neck pain on the right side of her neck, occasional blurred vision, tingling in her hands and lips. Timing/Duration: 1-2 Days Severity: Moderate Associated Systoms: Headaches Allergies and Home Medications Allergies Coded Allergies: erythromycin base (Unverified Allergy, Mild, 11/11/08) Penicillins (Verified Allergy, Unknown, 11/14/08) codeine (Verified Allergy, Unknown, 11/14/08) Home Medications Acetaminophen 325 Mg Tab, 650 MG PO Q4H PRN for mild pain or fever Prescribed by: ERNESTO SY on 09/28/13931 Aspirin 81 Mg Tablet.dr, 81 MG PO DAILY, (Reported) Atorvastatin Calcium 80 Mg Tablet, 80 MG PO HS Prescribed by: CELIA ISAACS on 09/24/131849 Bisacodyl 10 Mg Supp, 10 MG ND DAILY PRN for CONSTIPATION Prescribed by: ERNESTO SY on 09/28/13931 Clopidogrel Bisulfate 75 Mg Tablet, 1 EACH PO DAILY Prescribed by: CELIA ISAACS on 09/24/131849 Diltiazem Hcl 30 Mg Tab, 30 MG PO Q8HR Prescribed by: ERNESTO SY on 09/28/13931 Hydrochlorothiazide 12.5 Mg Cap, 25 MG PO DAILY, (Reported) Hydrocodone Bit/Acetaminophen 1 Each Tablet, 1 EACH PO NEEDED, (Reported) Melatonin/Pyridoxine Hcl (B6) 1 Each Tab.mphase, 1 EACH PO HS, (Reported) Metoprolol Tartrate 25 Mg Tablet, 25 MG PO BID Prescribed by: ERNESTO SY on 09/28/13931 Nystatin 60 Ml Btl, 5 ML PO Q6H swish and swallow QID x5 days Prescribed by: THELMA FARAH on 05/11/142017 Omeprazole 40 Mg Capsule.dr, 40 MG PO DAILY, (Reported) Ondansetron 4 Mg Tab.rapdis, 4 MG SL Q4H PRN for NAUSEA/VOMITING Prescribed by: AKBAR BARROW on 09/10/15 0349 Ondansetron Hcl 4 Mg Tab, 4 MG SL Q4H FOR NAUSEA AND VOMITING Prescribed by: BLAIR DANIELS on 05/19/14 1128 Polyethylene Glycol 17 Gm Pack, 17 GM PO DAILY PRN for CONSTIPATION Prescribed by: CELIA ISAACS on 09/24/13 1850 Senna 1 Ea Tablet, 1 EA PO BID Prescribed by: ERNESTO SY on 09/28/13 0932 Patient Home Medication List Home Medication List Reviewed: Yes Review of Systems Constitutional: see HPI EENTM: see HPI Respiratory: no symptoms reported Cardiovascular: no symptoms reported Genitourinary: no symptoms reported Musculoskeletal: no symptoms reported Skin: no symptoms reported Psychiatric/Neurological: See HPI, Headache Hematologic/Lymphatic: No Symptoms Reported Immunological/Allergic: no symptoms reported Past Zkzhbtd-Tdzoxn-Snstxg Hx Patient Social History Type Used: Cigarettes 2nd Hand Smoke Exposure: No Recent Foreign Travel: No Contact w/Someone Who Travel: No Recent Hopitalizations: No Immunizations Up To Date Tetanus Booster (TDap): Unknown PED Vaccines UTD: No Date of Influenza Vaccine: Jan 07, 2017 Seasonal Allergies Seasonal Allergies: No Past Medical History Surgeries: Yes Section, Gallbladder, Tubal Ligation Respiratory: No (Tobaccoism) Cardiac: Yes Hypertension, Irregular Heartbeat Neurological: Yes Headaches /Migraines, Stroke, Vertigo Reproductive Disorders: Yes Female Reproductive Disorders: Endometriosis 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, 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 Sexually Transmitted Disease: No Genitourinary: No Gastrointestinal: Yes Gastroesophageal Reflux, Hiatal Hernia, Gall Bladder Disease Musculoskeletal: Yes Arthritis Endocrine: No Diabetes, Insulin dep, Diabetes, Non-Insulin dep HEENT: No Cancer: No Psychosocial: Yes Anxiety Integumentary: No Blood Disorders: Yes ("CLOTTING DISORDER", chronic leukocytosis) Adverse Reaction/Blood Tranf: No Family Medical History Cancer 19 MOTHER (THROAT CANCER) Family history: Hypertension 19 MOTHER History of - disorder G8 SISTER (SISTER HAD MS) Myocardial infarction 19 FATHER 19 MOTHER Stroke 19 MOTHER Heart Disease, Hypertension, Stroke Physical Exam Vital Signs Vital Signs - First Documented 08/16/17 20:50 Temp 97.5 Pulse 93 Resp 18 B/P (MAP) 128/64 (85) Pulse Ox 97 O2 Delivery Room Air Capillary Refill : General Appearance: No Apparent Distress, WD/WN Eyes: Bilateral Eye Normal Inspection, Bilateral Eye PERRL, Bilateral Eye EOMI HEENT: PERRL/EOMI, TMs Normal Neck: Full Range of Motion, Normal Inspection Respiratory: No Accessory Muscle Use, No Respiratory Distress Cardiovascular: Regular Rate, Rhythm, Normal Peripheral Pulses Gastrointestinal: Normal Bowel Sounds, Non Tender, Soft Extremity: Normal Capillary Refill, Normal Inspection Neurologic/Psychiatric: Alert, Oriented x3 Skin: Normal Color, Warm/Dry Progress/Results/Core Measures Suspected Sepsis SIRS Temperature: Pulse: Respiratory Rate: Laboratory Tests 08/16/17 21:15: White Blood Count 13.3H Blood Pressure / Mean: Laboratory Tests 08/16/17 21:15: Creatinine 0.74, Platelet Count 299, Total Bilirubin 0.6 Results/Orders Lab Results Laboratory Tests Test 08/16/17 21:15 Range/Units White Blood Count 13.3 H 4.3-11.0 10^3/uL Red Blood Count 4.72 4.35-5.85 10^6/uL Hemoglobin 14.8 11.5-16.0 G/DL Hematocrit 45 35-52 % Mean Corpuscular Volume 95 80-99 FL Mean Corpuscular Hemoglobin 31 25-34 PG Mean Corpuscular Hemoglobin Concent 33 32-36 G/DL Red Cell Distribution Width 13.9 10.0-14.5 % Platelet Count 299 130-400 10^3/uL Mean Platelet Volume 11.1 H 7.4-10.4 FL Neutrophils (%) (Auto) 63 42-75 % Lymphocytes (%) (Auto) 28 12-44 % Monocytes (%) (Auto) 7 0-12 % Eosinophils (%) (Auto) 1 0-10 % Basophils (%) (Auto) 0 0-10 % Neutrophils # (Auto) 8.4 H 1.8-7.8 X 10^3 Lymphocytes # (Auto) 3.7 1.0-4.0 X 10^3 Monocytes # (Auto) 1.0 0.0-1.0 X 10^3 Eosinophils # (Auto) 0.2 0.0-0.3 10^3/uL Basophils # (Auto) 0.1 0.0-0.1 10^3/uL Sodium Level 137 135-145 MMOL/L Potassium Level 3.9 3.6-5.0 MMOL/L Chloride Level 96 L 98-107 MMOL/L Carbon Dioxide Level 25 21-32 MMOL/L Anion Gap 16 H 5-14 MMOL/L Blood Urea Nitrogen 7 7-18 MG/DL Creatinine 0.74 0.60-1.30 MG/DL Estimat Glomerular Filtration Rate > 60 BUN/Creatinine Ratio 9 Glucose Level 308 H 70-105 MG/DL Calcium Level 9.6 8.5-10.1 MG/DL Total Bilirubin 0.6 0.1-1.0 MG/DL Aspartate Amino Transf (AST/SGOT) 83 H 5-34 U/L Alanine Aminotransferase (ALT/SGPT) 52 0-55 U/L Alkaline Phosphatase 156 H 40-136 U/L Total Protein 7.8 6.4-8.2 GM/DL Albumin 4.0 3.2-4.5 GM/DL My Orders Orders - THELMA FARAH APRN Cbc With Automated Diff (08/16/17 21:01) Comprehensive Metabolic Panel (08/16/17 21:01) Ct Head/Cervical Spine Wo (08/16/17 21:01) Ketorolac Injection (Toradol Injection) (08/16/17 21:15) Orphenadrine Injection (Norflex Injectio (08/16/17 21:15) Medications Given in ED Current Medications Medications Dose Ordered Sig/Lorie Route Start Time Stop Time Status Last Admin Dose Admin Ketorolac Tromethamine 60 mg ONCE ONCE IM 08/16/17 21:15 08/16/17 21:16 DC 08/16/17 21:16 60 MG Orphenadrine Citrate 60 mg ONCE ONCE IM 08/16/17 21:15 08/16/17 21:16 DC 08/16/17 21:16 60 MG Vital Signs/I&O 08/16/17 08/16/17 20:50 21:55 Temp 97.5 97.5 Pulse 93 73 Resp 18 18 B/P (MAP) 128/64 (85) 117/73 (85) Pulse Ox 97 94 O2 Delivery Room Air Room Air Capillary Refill : Departure Impression Primary Impression: Paresthesia Additional Impression: Lightheadedness Disposition: 01 HOME, SELF-CARE Condition: Stable Departure-Patient Inst. Decision time for Depature: 21:04 Referrals: EHSAN CARABALLO DO (PCP) Primary Care Physician SOTERO HUIZAR APRN (Family) Primary Care Physician Patient Instructions: NO INSTRUCTIONS GIVEN Add. Discharge Instructions: 1. Follow-up with [facility] this week to address the high blood sugar. They'll likely want to start you on some diabetic medication. All discharge instructions reviewed with patient and/or family. Voiced understanding. Copy Copies To 1: EHSAN CARABALLO PETER J APRN August 16, 2017 21:04
[2017-08-16] MEDS ORDERED: ORPHENADRINE 60 MG/2 ML (NORFLEX) AMP IM ONE (21:15)
[2017-08-16] MEDS ORDERED: KETOROLAC 60 MG/2 ML VIAL IM ONE (21:15)
[2017-08-16 21:19] LABS: HEMATOCRIT 45 % (35-52); HEMOGLOBIN 14.8 G/DL (11.5-16.0); RED BLOOD COUNT 4.72 10^6/uL (4.35-5.85); WHITE BLOOD COUNT 13.3 10^3/uL (4.3-11.0)
[2017-08-16 21:20] LABS: BASOPHILS # (AUTO) 0.1 10^3/uL (0.0-0.1); BASOPHILS % (AUTO) 0 % (0-10); EOSINOPHILS # (AUTO) 0.2 10^3/uL (0.0-0.3); EOSINOPHILS % (AUTO) 1 % (0-10); LYMPHOCYTES # (AUTO) 3.7 X 10^3 (1.0-4.0); LYMPHOCYTES % (AUTO) 28 % (12-44); MEAN CORPUSCULAR HEMOGLOBIN 31 PG (25-34); MEAN CORPUSCULAR HGB CONC 33 G/DL (32-36); MEAN CORPUSCULAR VOLUME 95 FL (80-99); MEAN PLATELET VOLUME 11.1 FL (7.4-10.4); MONOCYTES % (AUTO) 7 % (0-12); NEUTROPHILS # (AUTO) 8.4 X 10^3 (1.8-7.8); NEUTROPHILS % (AUTO) 63 % (42-75); PLATELET COUNT 299 10^3/uL (130-400); RED CELL DISTRIBUTION WIDTH 13.9 % (10.0-14.5)
[2017-08-16 21:38] LABS: ALANINE AMINOTRANSFERASE 52 U/L (0-55); ALKALINE PHOSPHATASE 156 U/L (40-136); BILIRUBIN,TOTAL 0.6 MG/DL (0.1-1.0); BUN/CREATININE RATIO 9; CALCIUM 9.6 MG/DL (8.5-10.1); CARBON DIOXIDE 25 MMOL/L (21-32); CHLORIDE 96 MMOL/L (98-107); CREATININE SERUM 0.74 MG/DL (0.60-1.30); GFR ESTIMATED > 60; GLUCOSE 308 MG/DL (70-105); POTASSIUM 3.9 MMOL/L (3.6-5.0); SODIUM 137 MMOL/L (135-145); TOTAL PROTEIN 7.8 GM/DL (6.4-8.2)
--- NOTE | 2017-08-16 21:41 | Diagnostic Imaging Report ---
PROCEDURE: CT head and CT cervical spine without contrast. TECHNIQUE: Multiple contiguous axial images were obtained through the brain and cervical spine without the use of intravenous contrast. Sagittal and coronal reformations through the cervical spine were then performed. INDICATION: Headache, dizziness. Lightheaded. History of stroke. FINDINGS: The ventricles are normal in size, shape and position. There is no acute parenchymal hemorrhage, edema or mass. There is no extra-axial mass or hemorrhage. There is normal height and alignment of the cervical vertebral bodies. There is disc space narrowing and spondylosis at C5-6. This is causing mild narrowing of central canal as well as some foraminal narrowing. There is no fracture or other acute abnormality seen. IMPRESSION: Normal CT of the head. CT the cervical spine shows degenerative changes with no acute abnormality. Dictated by: Dictated on workstation # [id number]
[2017-08-16 21:55] VITALS: BP 117/73
--- OUTSIDE RECORDS SUMMARY | 2017-08-16 22:50 | XMS REPORT | Clinical Summary ---
Author Author [facility] Organization [facility] Address Unknown Phone Unavailable Care Team Providers Care Forestry Support Specialist Name Role Phone Unknown, Unknown Md PCP Unavailable Source Comments Some departments are not documenting in the electronic medical record. If you do not see the information that you expected, contact Release of Information in the Health Information Management department at [phone] for further assistance in locating additional records.[facility] Allergies Not on File Current Medications Not on file Active Problems Not on file Social History Tobacco Use Types Packs/Day Years Used Date Never Assessed Sex Assigned at Date Recorded Not on file Last Filed Vital Signs Not on file Plan of Treatment Health Maintenance Due Date Last Done Comments PHYSICAL (COMPREHENSIVE) 1976 EXAM PERTUSSIS VACCINE 1980 HIV SCREENING 1984 TETANUS VACCINE 1986 CERVICAL CANCER SCREENING 09/14/1999 BREAST CANCER SCREENING 2009 INFLUENZA VACCINE 12/19/2017 Results Not on filefrom Last 3 Months
--- OUTSIDE RECORDS SUMMARY | 2017-08-16 22:52 | XMS REPORT ---
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 Active 43527832 Problem Tobacco abuse Z72.0 Active 486422259 Problem Other chronic pain G89.29 Active 14235762 Problem Chronic pain syndrome G89.4 Active 721574858 Problem Type 2 diabetes mellitus with hyperglycemia E11.65 Active 06965993 Problem Seasonal allergic rhinitis due to pollen J30.1 Active 58365844 Problem Tobacco abuse counseling Z71.6 Active 430907309 Problem 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 Active 029622257 Problem History of CVA with residual deficit I69.30 Active 161486319 Problem Vitamin D deficiency E55.9 Active 09685721 Problem Major depressive disorder, recurrent episode, moderate F33.1 Active 984839795 Problem 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 Active 773812601 Problem Hyperlipidemia, unspecified hyperlipidemia type E78.5 Active 40978814 Problem Elevated liver enzymes R74.8 Active 475609728 Problem Gastroesophageal reflux disease, esophagitis presence not specified K21.9 Active 015171924 Problem Generalized anxiety disorder F41.1 Active 09578033 Problem Essential hypertension I10 Active 87208447 ALLERGIES Substance Reaction Event Type Date Status Penicillin V Potassium Unknown Drug Allergy Jan, Active Erythromycin Base Unknown Drug Allergy Jan, Active Codeine Unknown Drug Allergy Jan, Active ENCOUNTERS Encounter Location Date Diagnosis [facility] [address] [facility] [id number] [address] July, [facility] [address] [facility] [id number] [address] July, Type 2 diabetes mellitus with hyperglycemia E11.65 ; 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.4 ; Elevated liver enzymes R74.8 ; Hyperlipidemia, unspecified hyperlipidemia type E78.5 ; Major depressive disorder, recurrent episode, moderate F33.1 ; Essential hypertension I10 ; Gastroesophageal reflux disease, esophagitis presence not specified K21.9 ; Tobacco abuse Z72.0 ; Tobacco abuse counseling Z71.6 ; Vitamin D deficiency E55.9 ; History of CVA with residual deficit I69.30 ; Generalized anxiety disorder F41.1 ; Hypokalemia E87.6 ; Chronic pain syndrome G89.4 and Vaginal candidiasis B37.3 [place] [address] [address] Jun, Generalized anxiety disorder F41.1 and Other chronic pain G89.29 [place] [address] 20[address] 1318 Jun, [place] [address] 38478- 7082 Jun, [place] [address] [place] [id number] [place] [address] 61624- 9319 Jun, Abnormal levels of other serum enzymes R74.8 [place] [address] 22624- 6224 Jun, Abnormal levels of other serum enzymes R74.8 [place] [address] [place] [id number] [place] [address] 04466- 0219 Jun, Elevated liver enzymes R74.8 [place] [address] 24078- 8541 Jun, Elevated liver enzymes R74.8 [place] [address] 65459- 1783 May, Right upper quadrant pain R10.11 ; Cervicalgia M54.2 and High risk medication use Z79.899 [place] [address] [place] [id number] [place] [address] 32799- 4035 May, Generalized anxiety disorder F41.1 and Other chronic pain G89.29 [facility] [address] [place] [id number] [place] [address] 57014- 7149 May, Canker sores oral K12.0 [facility] [address] 36[address]- 9[address] May, Generalized anxiety disorder F41.1 and Other chronic pain G89.29 [place] [address] 6[address]- 3871 May, [facility] [address] 58[address]- 2698 Apr, [facility] [address] [address] Apr, Acute cystitis with hematuria N30.01 and Dysuria R30.0 [place] [address] 53313- 8328 Apr, [facility] [address] [place] [id number] [place] [address] 52448- 1954 Apr, [place] [address] 65754- 8256 Apr, 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 [place] [address] 29015- 2932 06 Apr, 2017 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 [facility] [address] [place] [id number] [place] [address] 44575- 2716 Apr, [facility] [address] [place] [id number] [place] [address] 05559- 4721 Apr, [place] [address] [place] [id number] [place] [address] 14219- 3141 Apr, Other chronic pain G89.29 ; Generalized anxiety disorder F41.1 ; Cervicalgia M54.2 and Controlled substance agreement signed Z79.899 [facility] [address] [place] [id number] [place] [address] 77997 -8500 Mar, Abdominal pain R10.9 and Viral gastroenteritis A08.4 [place] [address] 45098- 6179 Mar, [place] [address] [place] [id number] [place] [address] 14855- 5543 Mar, [place] [address] 63915- 6036 Mar, 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 ; Type 2 diabetes mellitus with hyperglycemia E11.65 ; 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.4 ; Essential hypertension I10 ; Bronchitis J40 ; Major depressive disorder , recurrent episode, moderate F33.1 ; Hyperlipidemia, unspecified hyperlipidemia type E78.5 ; Tobacco abuse Z72.0 ; Tobacco abuse counseling Z71.6 ; History of CVA with residual deficit I69.30 ; Gastroesophageal reflux disease, esophagitis presence not specified K21.9 and 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 [place] [address] [place] [id number] [place] [address] 96829- 9346 Mar, [place] [address] 11048- 4777 Mar, 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 ; Abnormal lung sounds R09.89 ; Bronchitis J40 and Hyperlipidemia, unspecified hyperlipidemia type E78.5 [facility] [address] [place] [id number] [place] [address] 67679 -0589 Mar, URI, acute J06.9 [place] [address] [place] [id number] [place] [address] 56352- 0065 Mar, [place] [address] [place] [id number] [place] [address] 29871- 4615 Mar, 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 [place] [address] [place] [id number] [place] [address] 91565- 2757 Mar, Other chronic pain G89.29 and Generalized anxiety disorder F41.1 [facility] [address] 97016- 0067 Feb, [facility] [address] 92799- 1590 Feb, Mass of left lung R91.8 and Cervicalgia M54.2 [place] [address] 60737- 6216 Feb, [facility] [address] 37702- 0420 Feb, [facility] [address] 26396 [address]2954 Feb, Cough R05 and Bronchitis J40 [facility] [address] 76255 -0942 07 Feb, 2017 Acute nasopharyngitis J00 and Bronchitis J40 [place] [address] 33093- 2280 06 Feb, 2017 Other chronic pain G89.29 and Generalized anxiety disorder F41.1 [place] [address] 43736- 8100 Jan, Encounter for immunization Z23 [facility] [place] [address] 58[address] Jan, [facility] [address] 6[address]30[address] 18 Jan, 2017 [facility] [address] 40760- 1245 16 Jan, 2017 Canker sores oral K12.0 [place] [address] 92548- 8723 14 Jan, 2017 [facility] [address] 03220- 2433 07 Jan, 2017 Other chronic pain G89.29 and Generalized anxiety disorder F41.1 [facility] [address] [place] [id number] [place] [address] 36875- 3911 06 Jan, 2017 Cough R05 and Bronchitis J40 [facility] [address] [place] [id number] [place] [address] 62884 -9309 Jan, Bronchitis J40 [facility] [address] 80386- 9556 Dec, Vitamin D deficiency E55.9 [place] [address] 08166- 3358 Dec, 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 [place] [address] 80224- 2817 Dec, 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 and Vitamin D deficiency E55.9 [place] [address] 43117- 1388 Dec, 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 ; Essential hypertension I10 ; Hyperlipidemia, unspecified hyperlipidemia type E78.5 ; Vitamin D deficiency E55.9 ; Gastroesophageal reflux disease, esophagitis presence not specified K21.9 ; 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 ; Other chronic pain G89.29 ; Encounter for immunization Z23 and Generalized anxiety disorder F41.1 [place] [address] [place] [id number] [place] [address] 31564- 5229 Nov, History of CVA with residual deficit I69.30 [place] [address] [place] [id number] [place] [address] 70164- 9894 Nov, 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 [place] [address] 76153- 9287 06 Nov, 2016 Left otitis media with effusion H65.92 ; Bronchitis J40 and Canker sores oral K12.[address] 0[address]- 9634 Oct, [place] [address] [place] [address] [address] 04 Oct, 2016 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 [place] [address] [place] [id number] [place] [address] 30227- 7272 02 Oct, 2016 [place] [address] [place] [id number] [place] [address] 59168- 6379 Sep, 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 [place] [address] [place] [id number] [place] [address] 59012- 5781 11 Sep, 2016 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 ; Essential hypertension I10 ; Gastroesophageal reflux disease, esophagitis presence not specified K21.9 ; Hyperlipidemia, unspecified hyperlipidemia type E78.5 ; Tobacco abuse Z72.0 ; Vitamin D deficiency E55.9 ; History of CVA with residual deficit I69.30 and Seasonal allergic rhinitis due to pollen J30.1 [place] [id number] [place] [address] 04881- 2302 Sep, [place] [address] [place] [id number] [place] [address] 74758- 3852 30 Aug, 2016 [facility] [address] [place] [id number] [place] [address] 52725 -1092 Aug, Dysuria R30.0 ; Acute cystitis with hematuria N30.01 and Middle ear effusion, right H65.91 [place] [address] [place] [id number] [place] [address] 51324- 1512 Aug, Other complicated headache syndrome G44.59 [place] [address] [place] [id number] [place] [address] 72935- 9910 19 Aug, 2016 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 [place] [address] [place] [id number] [place] [address] 06825- 1801 14 Aug, 2016 Dysuria R30.0 [place] [address] [place] [id number] [place] [address] 74572- 1588 12 Aug, 2016 Dysuria R30.0 [place] [address] [address] Aug, [facility] [address] [place] [id number] [place] [address] 40634- 3974 July, [facility] [address] [place] [id number] [place] [address] 12230- 4802 July, [facility] [address] [place] [id number] [place] [address] 55171- 9308 July, 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 [facility] [address] [place] [id number] [place] [address] 36387- 9430 July, Other complicated headache syndrome G44.59 [facility] [address] [place] [id number] [place] [address] 66380- 4618 July, [facility] [address] [place] [id number] [place] [address] 13105 -6891 July, Dysuria R30.0 and Acute cystitis with hematuria N30.01 [facility] [address] [place] [id number] [place] [address] 97345- 5547 July, [facility] [address] [place] [id number] [place] [address] 06948- 3151 July, Other complicated headache syndrome G44.59 [facility] [address] [place] [address] 10164 -2217 Jun, Exposure to strep throat Z20.818 and Acute upper respiratory infection, unspecified J06.9 [facility] [address] [place] [id number] [place] [address] 33128- 3366 Jun, [facility] [address] [place] [id number] [place] [address] 79961- 7876 Jun, 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 and Gastroesophageal reflux disease, esophagitis presence not specified K21.9 [facility] [address] [place] [id number] [place] [address] 38359- 0450 Jun, Dizziness R42 [facility] [address] [address] 3802 Jun, [facility] [address] [place] [id number] [place] [address] 70907 -3325 Jun, [facility] [address] [place] [address] 25112- 2569 Jun, [facility] [address] [place] [id number] [place] [address] 81177 -2130 May, Seasonal allergic rhinitis, unspecified allergic rhinitis trigger J30.2 [facility] [address] [place] [id number] [place] [address] 92465- 2840 May, [facility] [address] [place] [id number] [place] [address] 01309- 7162 May, 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 ; Vitamin D deficiency E55.9 ; Tobacco abuse Z72.0 ; Tobacco abuse counseling Z71.6 ; Essential hypertension I10 ; History of CVA with residual deficit I69.30 ; Irregular heart rhythm I49.9 ; Hypokalemia E87.6 ; Hyperlipidemia, unspecified hyperlipidemia type E78.5 ; Gastroesophageal reflux disease, esophagitis presence not specified K21.9 and Seasonal allergic rhinitis due to pollen J30.1 [facility] [address] [address]- 0798 May, Gastroesophageal reflux disease, esophagitis presence not specified K21.9 [facility] [address] [place] [address] 37440- 7193 May, [facility] [address] [place] [id number] [place] [address] 20474- 5217 Apr, [facility] [address] [place] [id number] [place] [address] 80311- 6202 Apr, [facility] [address] [place] [id number] [place] [address] 86409- 1605 Mar, [facility] [address] [place] [address]- 5074 Mar, [facility] [address] [place] [address] 23960- 7900 Mar, [facility] [address] [place] [address] 01801- 5870 Mar, [facility] [address] [place] [id number] [place] [address] 90382- 8403 Feb, [facility] [address] [place] [id number] [place] [address] 71228- 3455 Feb, [facility] [address] [place] [id number] [place] [address] 38490- 5138 Feb, [facility] [address] [place] [id number] [place] [address] 35632- 2330 Feb, Major depressive disorder, recurrent episode, moderate F33.1 ; Generalized anxiety disorder F41.1 ; Essential hypertension I10 ; DM ( diabetes mellitus) 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 ; Hyperlipidemia, unspecified hyperlipidemia type E78.5 ; 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 and Gastroesophageal reflux disease, esophagitis presence not specified K21.9 [facility] [address] [place] [id number] [place] [address] 75877 -2163 Feb, Other viral agents as the cause of diseases classified elsewhere B97.89 and Acute upper respiratory infection, unspecified J06.9 [facility] [address] [place] [address] 17439- 4651 Jan, [facility] [address] [place] [address] 76938- 4859 Jan, [facility] [address] [place] [address] 49960 -5118 Jan, Acute bronchitis, unspecified organism J20.9 [facility] [address] [place] [address] 43214- 7488 Jan, [facility] [address] [place] [id number] [place] [address] 04222- 3790 Jan, History of CVA with residual deficit I69.30 [place] [address] [place] [address] 70544- 9984 Jan, [place] [address] [place] [id number] [place] [address] 11480- 1446 Jan, Acute bronchitis, unspecified organism J20.9 [place] [address] 76121- 8039 Jan, [place] [address] [place] [id number] [place] [address] 43302- 5568 Dec, History of CVA with residual deficit I69.30 [place] [address] [place] [id number] [place] [address] 23728- 8258 Dec, [place] [address] [place] [id number] [place] [address] 68395- 1210 Dec, Other chronic pain G89.29 ; 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 and History of CVA with residual deficit I69.30 [place] [address] [place] [address] 46613- 6492 Nov, Major depressive disorder, recurrent episode, moderate F33.1 ; Irregular heart rhythm I49.9 ; Essential hypertension I10 ; History of CVA with residual deficit I69.30 ; 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 ; Gastroesophageal reflux disease, esophagitis presence not specified K21.9 ; Hyperlipidemia, unspecified hyperlipidemia type E78.5 ; 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 ; Other chronic pain G89.29 and Generalized anxiety disorder F41.1 [place] [address] [place] [address] 10441- 1082 Oct, Generalized anxiety disorder F41.1 ; Major depressive disorder, recurrent episode, moderate F33.1 ; Essential hypertension I10 ; History of CVA with residual deficit I69.30 ; 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 ; Gastroesophageal reflux disease, esophagitis presence not specified K21.9 ; Hyperlipidemia, unspecified hyperlipidemia type E78.5 ; Other chronic pain G89.29 and Bacterial conjunctivitis of left eye H10.9 [place] [address] [place] [id number] [place] [address] 96791- 9869 Sep, Chronic pain syndrome G89.4 and 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 [place] [address] [place] [id number] [place] [address] 29083- 1086 Sep, Irregular heart rhythm I49.9 ; Routine health maintenance Z00.00 ; Essential hypertension I10 ; History of CVA with residual deficit I69.30 ; Gastroesophageal reflux disease, esophagitis presence not specified K21.9 ; 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 ; Hyperlipidemia, unspecified hyperlipidemia type E78.5 and Other complicated headache syndrome G44.59 [place] [address] [place] [id number] [place] [address] 45795- 7278 14 Jun, 2014 [place] [address] 78473- 5345 Jun, [place] [address] [place] [id number] [place] [address] 38829- 8737 Aug, [address] 84297- 7393 Jun, IMMUNIZATIONS No Known Immunizations SOCIAL HISTORY Never Assessed REASON FOR VISIT dry cough, facial pain and congestion JStrasserRN PLAN OF CARE Activity Details Follow Up prn Reason: VITAL SIGNS Height 62 in 2017-01-22 Weight 204.2 lbs 2017-01-22 Temperature 98.3 degrees Fahrenheit 2017-01-22 Heart Rate 80 bpm 2017-01-22 Respiratory Rate 20 2017-01-22 BMI 37.34 kg/m2 2017-01-22 Blood pressure systolic 110 mmHg 2017-01-22 Blood pressure diastolic 64 mmHg 2017-01-22 MEDICATIONS Medication Instructions Dosage Frequency Start Date End Date Duration Status Test strips 8h Active Metoprolol Tartrate 25 MG Orally Twice a day 1 tablet with food 12h 90 days Active Canagliflozin 100 mg Orally Once a day 1 tablet 24h 10 Dec, 2016 Mar, 30 day(s) Active Carafate 1 GM Orally Twice a day 1 tablet on an empty stomach 12h 24 May, 2016 30 days Active Levemir Flexpen 100 UNIT/ML Subcutaneous at hs 25 units 90 days Active CorneliaTouch Delica Lancets 33G 33 TEST BLOOD SUGAR THREE TIMES A DAY E11.8 30 Active Bath/Shower Seat 1 please provide one adult shower seat for patient use one time shower/bath seat for bathing Dec, Active Onglyza 5 mg Orally Once a day 1 tablet 24h Dec, 90 days Active Walker - as directed Jan, Active Pen Marble 31G X 5 MM subcutaneously Once a day as directed 24h Jan, 90 days Active One Touch/One Touch II Starter 1 glucometer subcutaneously 3 times a day to take blood sugars daily Dispense as insurance allows 8h Sep, Active ASA Oral Once a day 1 tab 24h 90 days Active Plavix 75 MG Orally Once a day 1 tablet 24h 90 days Active ProAir HFA 108 (90 Base) MCG/ACT Inhalation every 4 hrs prn 2 puffs as needed Nov, Active Fluticasone Propionate 50 MCG/ACT Nasally Once a day 1 spray in each nostril 24h Feb, 30 day(s) Active Triamcinolone Acetonide 0.1 % oral lesion twice a day 1 application at bedtime 12h Nov, 07 days Active Hydrocodone-Acetaminophen 10-325 MG Orally every 6 hrs 1 tablet as needed 6h 10 Dec, 2016 28 days Active Diltiazem HCl ER 120 MG Orally Once a day 1 capsule on an empty stomach in the morning 24h 90 days Active Pantoprazole Sodium 20 mg Orally 2 times a day 1 tablets 12h May, 90 days Active Fenofibrate 54 Orally Once a day 1 tablet with a meal 24h 90 Active Naproxen 500 mg Orally bid prn 1 tablet Sep, 90 days Active Xanax 1 MG Orally 4 times a day 1 tablet 6h 28 days Active MetFORMIN HCl ER 750 MG Orally twice a day 1 tablet 12h 90 days Active Atorvastatin Calcium 80 MG Orally Once a day 1 tablet 24h 90 days Active PredniSONE 20 MG Orally Once a day 2 tablet 24h Jan, Jan, 5 days Active Hydrochlorothiazide 25 MG Orally Once a day 1 tablet 24h 90 days Active Lancets - Active ProAir HFA 108 (90 Base) MCG/ACT Inhalation every 6 hrs 2 puffs as needed 6h Jan, 7 days Active RESULTS No Results PROCEDURES Procedure Date Ordered Result Body Site [facility] VISIT ESTABLISHED PATIENT Jan 22, 2017 INSTRUCTIONS MEDICATIONS ADMINISTERED No Known Medications MEDICAL (GENERAL) HISTORY Type Description Date Medical History diabetes mellitus Medical History hyperlipidemia Medical History hypertension Medical History stroke Medical History Anxiety disorder Medical History Panic attacks Medical History Blood Clotting Disorder- Dr Galvan at [facility] Medical History Possible Anemia (currently under work up) - Dr Galvan [facility] Medical History irregular heart beat-sees dr. hassan Medical History history of pancreatitis Medical History gerd Medical History History of CVA with residual deficit Medical History Other complicated headache syndrome Medical History Stokes syndrome Surgical History tubal ligation Surgical History section Surgical History cholecystectomy Surgical History Toe Nail Removal x2 Hospitalization History Brain Stem Strokes x5. Has been hospitalized at then transfered to [facility]. 2014 Hospitalization History Child Hospitalization History abd pain and shakiness - [facility] ED visit [facility] Hospitalization History [facility] ED for URI 04/16/17
--- OUTSIDE RECORDS SUMMARY | 2017-08-16 22:52 | XMS REPORT ---
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 Active 90809562 Problem Tobacco abuse Z72.0 Active 436716379 Problem Other chronic pain G89.29 Active 38130399 Problem Type 2 diabetes mellitus with hyperglycemia E11.65 Active 25960862 Problem residential current use of insulin Z79.4 Active 584634005 Problem Seasonal allergic rhinitis due to pollen J30.1 Active 05433081 Problem Tobacco abuse counseling Z71.6 Active 577409594 Problem History of CVA with residual deficit I69.30 Active 831971731 Problem Simple chronic bronchitis J41.0 Active 35737062 Problem Major depressive disorder, recurrent episode, moderate F33.1 Active 680489215 Problem Elevated liver enzymes R74.8 Active 851732415 Problem Vitamin D deficiency E55.9 Active 69045855 Problem Hyperlipidemia, unspecified hyperlipidemia type E78.5 Active 39257870 Problem Gastroesophageal reflux disease, esophagitis presence not specified K21.9 Active 794287899 Problem Generalized anxiety disorder F41.1 Active 74580672 Problem Essential hypertension I10 Active 39495248 Problem 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 Active 629772277 Problem Irregular heart rhythm I49.9 Active 888730143 ALLERGIES No Information ENCOUNTERS Encounter Location Date Diagnosis [facility] [address] [facility] [id number] [address] July, [facility] [address] [id number] [address] Jun, [facility] [address] [facility] [id number] [address] Jun, Abnormal levels of other serum enzymes R74.8 [facility] [id number] [place] [address] 64482- 1928 Jun, Abnormal levels of other serum enzymes R74.8 [facility] [id number] [place] [address] 98084- 6395 Jun, Elevated liver enzymes R74.8 [facility] [id number] [place] [address] 62704- 7604 Jun, Elevated liver enzymes R74.8 [facility] [id number] [place] [address] 14823- 7434 May, Right upper quadrant pain R10.11 ; Cervicalgia M54.2 and High risk medication use Z79.899 [facility] [id number] [place] [address] 91609- 6605 May, Generalized anxiety disorder F41.1 and Other chronic pain G89.29 [facility] [id number] [place] [address] 94931- 3370 May, Canker sores oral K12.0 [place] [id number] [place] [address] 49426- 3568 May, Generalized anxiety disorder F41.1 and Other chronic pain G89.29 [facility] [id number] [place] [address] 35421- 7217 May, [facility] [id number] [place] [address] 19446- 6284 Apr, [facility] [id number] [place] [address] 41578 -2682 Apr, Acute cystitis with hematuria N30.01 and Dysuria R30.0 [facility] [id number] [place] [address] 50138- 4061 Apr, [facility] [id number] [place] [address] 27068- 6281 Apr, [facility] [id number] [place] [address] 28934- 7715 08 Apr, 2017 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 [place] [id number] [place] [address] 46671- 2214 06 Apr, 2017 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 [place] [address] [address]- 7504 03 Apr, 2017 [facility] [address] 33741- 2718 Apr, [place] [address] 15120- 1122 Apr, Other chronic pain G89.29 ; Generalized anxiety disorder F41.1 ; Cervicalgia M54.2 and Controlled substance agreement signed Z79.899 [facility] [address] [address]0298 Mar, Abdominal pain R10.9 and Viral gastroenteritis A08.4 [place] [address] 68690- 8214 Mar, [place] [address] 99911- 3067 Mar, [place] [id number] [place] [address] 71244- 7510 Mar, 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 ; Type 2 diabetes mellitus with hyperglycemia E11.65 ; residential current use of insulin Z79.4 ; Essential hypertension I10 ; Bronchitis J40 ; Major depressive disorder , recurrent episode, moderate F33.1 ; Hyperlipidemia, unspecified hyperlipidemia type E78.5 ; Tobacco abuse Z72.0 ; Tobacco abuse counseling Z71.6 ; History of CVA with residual deficit I69.30 ; Gastroesophageal reflux disease, esophagitis presence not specified K21.9 and 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 [facility] [id number] [place] [address] 83149- 7037 Mar, [place] [id number] [place] [address] 83333- 6831 Mar, 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 ; Abnormal lung sounds R09.89 ; Bronchitis J40 and Hyperlipidemia, unspecified hyperlipidemia type E78.5 [facility] [address] 0[address] -2514 Mar, URI, acute J06.9 [place] [address] 20901- 7783 Mar, [place] [address] 74311- 5111 Mar, 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 [place] [address] 19580- 0742 Mar, Other chronic pain G89.29 and Generalized anxiety disorder F41.1 [place] [address] 56179- 9573 Feb, [place] [address] 86332- 8704 Feb, Mass of left lung R91.8 and Cervicalgia M54.2 [place] [address] 61025- 7074 Feb, [place] [address] 37126- 7941 Feb, [facility] [id number] [place] [address] 02631 -0455 Feb, Cough R05 and Bronchitis J40 [facility] [place] [address] 568[address]6491 Feb, Acute nasopharyngitis J00 and Bronchitis J40 [place] [id number] [place] [address] 07390- 2798 Feb, Other chronic pain G89.29 and Generalized anxiety disorder F41.1 [place] [id number] [place] [address] 61731- 1737 29 Jan, 2017 Encounter for immunization Z23 [facility] [address] [address]79 [address]7805 Jan, [facility] [address] 31024 [address]1180 Jan, [place] [address] 28243- 4414 Jan, Canker sores oral K12.[address] 6[address]13- 9597 14 Jan, 2017 [place] [address] 36207- 4547 07 Jan, 2017 Other chronic pain G89.29 and Generalized anxiety disorder F41.1 [place] [address] 86543- 0148 06 Jan, 2017 Cough R05 and Bronchitis J40 [facility] [address] [address]87 04 Jan, 2017 Bronchitis J40 [place] [address] 18958- 6812 Dec, Vitamin D deficiency E55.9 [place] [address] 69304- 9087 Dec, 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92 ; Bronchitis J40 and Canker sores oral K12.[address] 08677- 3528 Oct, [address] [address]- 1993 Oct, 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 [place] [address] 91338- 0019 Oct, [address] 48695- 5820 Sep, 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 49767- 0747 Sep, 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 ; Essential hypertension I10 ; Gastroesophageal reflux disease, esophagitis presence not specified K21.9 ; Hyperlipidemia, unspecified hyperlipidemia type E78.5 ; Tobacco abuse Z72.0 ; Vitamin D deficiency E55.9 ; History of CVA with residual deficit I69.30 and Seasonal allergic rhinitis due to pollen J30.[address] 41956- 5721 Sep, [address] 09793- 1423 Aug, [facility] [address] [address] Aug, Dysuria R30.0 ; Acute cystitis with hematuria N30.01 and Middle ear effusion, right H65.91 [facility] [id number] [place] [address] 67627- 4441 Aug, Other complicated headache syndrome G44.59 [facility] [id number] [place] [address] 17063- 6600 Aug, 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 [facility] [id number] [place] [address] 26478- 5346 Aug, Dysuria R30.0 [facility] [id number] [place] [address] 23153- 0737 Aug, Dysuria R30.0 [facility] [id number] [place] [address] 20249- 6334 Aug, [facility] [id number] [place] [address] 27531- 7402 July, [facility] [id number] [place] [address] 11609- 2389 July, [facility] [id number] [place] [address] 24126- 5645 July, 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 [facility] [id number] [place] [address] 15219- 9815 July, Other complicated headache syndrome G44.59 [facility] [id number] [place] [address] 44436- 9770 July, [facility] [id number] [place] [address] 48457 -7640 July, Dysuria R30.0 and Acute cystitis with hematuria N30.01 [facility] [id number] [place] [address] 07618- 7634 July, [place] [id number] [place] [address] 40585- 6946 July, Other complicated headache syndrome G44.59 [facility] [address] 42538 -1377 Jun, Exposure to strep throat Z20.818 and Acute upper respiratory infection, unspecified J06.9 [place] [address] 60311- 5296 Jun, [place] [address] 49048- 6576 Jun, 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 and Gastroesophageal reflux disease, esophagitis presence not specified K21.9 [place] [address] 22882- 1247 Jun, [place] [address] 39707- 8906 Jun, Dizziness R42 [facility] [place] [id number] [place] [address] 04249 -9709 Jun, [place] [id number] [place] [address] 23989- 5338 Jun, [facility] [place] [id number] [place] [address] 21683 -6491 May, Seasonal allergic rhinitis, unspecified allergic rhinitis trigger J30.2 [place] [id number] [place] [address] 63948- 9436 May, [address] 45625- 6472 May, 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 [...] Seasonal allergic rhinitis due to pollen J30.1 [facility] [id number] [place] [address] 33275- 1532 May, Gastroesophageal reflux disease, esophagitis presence not specified K21.9 [facility] [id number] [place] [address] 75724- 1765 May, [facility] [id number] [place] [address] 95829- 6845 Apr, [facility] [id number] [place] [address] 97989- 8836 Apr, [facility] [id number] [place] [address] 74973- 3369 Mar, [facility] [id number] [place] [address] 04785- 3622 Mar, [facility] [id number] [place] [address] 89562- 2808 Mar, [facility] [id number] [place] [address] 82660- 5144 Mar, [facility] [id number] [place] [address] 76164- 2086 Feb, [facility] [address] [place] [address] 80521- 6610 Feb, [facility] [address] [place] [address] 81864- 4444 Feb, [facility] [id number] [place] [address] 34834- 0393 Feb, Major depressive disorder, recurrent episode, moderate F33.1 ; Generalized anxiety disorder F41.1 ; Essential hypertension I10 ; DM ( diabetes mellitus) 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 ; Hyperlipidemia, unspecified hyperlipidemia type E78.5 ; 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 and Gastroesophageal reflux disease, esophagitis presence not specified K21.9 [facility] [address] [address] Feb, Other viral agents as the cause of diseases classified elsewhere B97.89 and Acute upper respiratory infection, unspecified J06.9 [facility] [address] [address]- 3847 Jan, [facility] [id number] [place] [address] 29159- 1565 Jan, [facility] [address] [place] [address] 47336 -9587 Jan, Acute bronchitis, unspecified organism J20.9 [facility] [id number] [place] [address] 25423- 8688 Jan, [facility] [id number] [place] [address] 77222- 9814 Jan, History of CVA with residual deficit I69.30 [place] [address] [id number] [place] [address] 54213- 9283 Jan, [facility] [id number] [place] [address] 50458- 2563 Jan, Acute bronchitis, unspecified organism J20.9 [facility] [id number] [place] [address] 68530- 1109 Jan, [facility] [address] [place] [address] 11530- 4983 Dec, History of CVA with residual deficit I69.30 [place] [address] [id number] [place] [address] 53421- 8771 Dec, [place] [address] [id number] [place] [address] 55631- 2609 Dec, Other chronic pain G89.29 ; 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 and History of CVA with residual deficit I69.30 [place] [address] [place] [id number] [place] [address] 40162- 5642 Nov, Major depressive disorder, recurrent episode, moderate F33.1 ; Irregular heart rhythm I49.9 ; Essential hypertension I10 ; History of CVA with residual deficit I69.30 ; 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 ; Gastroesophageal reflux disease, esophagitis presence not specified K21.9 ; Hyperlipidemia, unspecified hyperlipidemia type E78.5 ; 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 ; Other chronic pain G89.29 and Generalized anxiety disorder F41.[address] 44650- 1779 Oct, Generalized anxiety disorder F41.1 ; Major depressive disorder, recurrent episode, moderate F33.1 ; Essential hypertension I10 ; History of CVA with residual deficit I69.30 ; 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 ; Gastroesophageal reflux disease, esophagitis presence not specified K21.9 ; Hyperlipidemia, unspecified hyperlipidemia type E78.5 ; Other chronic pain G89.29 and Bacterial conjunctivitis of left eye H10.9 [place] [id number] [place] [address] 23583- 8174 Sep, Chronic pain syndrome G89.4 and 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 [place] [id number] [place] [address] 89511- 3061 Sep, Irregular heart rhythm I49.9 ; Routine health maintenance Z00.00 ; Essential hypertension I10 ; History of CVA with residual deficit I69.30 ; Gastroesophageal reflux disease, esophagitis presence not specified K21.9 ; 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 ; Hyperlipidemia, unspecified hyperlipidemia type E78.5 and Other complicated headache syndrome G44.59 [place] [id number] [place] [address] 96458- 3527 Jun, [address] 59407- 7888 Jun, [place] [id number] [place] [address] 65368- 4030 Aug, [place] [address] [facility] [id number] [place] Jun, IMMUNIZATIONS No Known Immunizations SOCIAL HISTORY Never Assessed REASON FOR VISIT Medication refill request PLAN OF CARE VITAL SIGNS MEDICATIONS Medication Instructions Dosage Frequency Start Date End Date Duration Status Xanax 1 MG Orally 4 times a day 1 tablet 6h 28 days Active Hydrocodone-Acetaminophen 10-325 MG Orally every 6 hrs 1 tablet as needed 6h 12 Nov, 2016 28 days Active RESULTS No Results PROCEDURES No Known procedures INSTRUCTIONS MEDICATIONS ADMINISTERED No Known Medications MEDICAL (GENERAL) HISTORY Type Description Date Medical History diabetes mellitus Medical History hyperlipidemia Medical History hypertension Medical History stroke Medical History Anxiety disorder Medical History Panic attacks Medical History Blood Clotting Disorder- Dr Galvan at [facility] Medical History Possible Anemia (currently under work up) - Dr Galvan [facility] Medical History irregular heart beat-sees dr. hassan Medical History history of pancreatitis Medical History gerd Medical History History of CVA with residual deficit Medical History Other complicated headache syndrome Medical History Stokes syndrome Surgical History tubal ligation Surgical History section Surgical History cholecystectomy Surgical History Toe Nail Removal x2 Hospitalization History Brain Stem Strokes x5. Has been hospitalized at then transfered to [facility] 2014 Hospitalization History Child Hospitalization History abd pain and shakiness - [facility] ED visit [facility] Hospitalization History [facility] ED for URI 04/16/17
--- OUTSIDE RECORDS SUMMARY | 2017-08-16 22:53 | XMS REPORT ---
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 Active 08298226 Problem Tobacco abuse Z72.0 Active 418038646 Problem Other chronic pain G89.29 Active 00904790 Problem Type 2 diabetes mellitus with hyperglycemia E11.65 Active 32710004 Problem residential current use of insulin Z79.4 Active 224110947 Problem Seasonal allergic rhinitis due to pollen J30.1 Active 83275411 Problem Tobacco abuse counseling Z71.6 Active 453027030 Problem History of CVA with residual deficit I69.30 Active 499966915 Problem Simple chronic bronchitis J41.0 Active 86587701 Problem Major depressive disorder, recurrent episode, moderate F33.1 Active 844847961 Problem Elevated liver enzymes R74.8 Active 797316939 Problem Vitamin D deficiency E55.9 Active 72150605 Problem Hyperlipidemia, unspecified hyperlipidemia type E78.5 Active 98571611 Problem Gastroesophageal reflux disease, esophagitis presence not specified K21.9 Active 528092852 Problem Generalized anxiety disorder F41.1 Active 51976045 Problem Essential hypertension I10 Active 14745517 Problem 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 Active 077837233 Problem Irregular heart rhythm I49.9 Active 532758647 ALLERGIES Substance Reaction Event Type Date Status Penicillin V Potassium Unknown Drug Allergy Nov, Active Erythromycin Base Unknown Drug Allergy Nov, Active Codeine Unknown Drug Allergy Nov, Active ENCOUNTERS Encounter Location Date Diagnosis [facility] [address] [facility] [id number] [address] July, [facility] [address] [facility] [id number] [address] Jun, [facility] [address] [address] Jun, [facility] [address] [place] [id number] [place] [address] 83428- 7909 Jun, Abnormal levels of other serum enzymes R74.8 [facility] [address] [place] [place] [id number] [place] [address] 66807- 1942 Jun, Abnormal levels of other serum enzymes R74.8 [facility] [address] [place] [id number] [place] [address] 41925- 7284 Jun, Elevated liver enzymes R74.8 [facility] [address] [place] [id number] [place] [address] 52884- 1860 Jun, Elevated liver enzymes R74.8 [facility] [address] [place] [address] 01234- 7549 May, Right upper quadrant pain R10.11 ; Cervicalgia M54.2 and High risk medication use Z79.899 [facility] [address] [id number] [place] [address] 77443- 6814 May, Generalized anxiety disorder F41.1 and Other chronic pain G89.29 [facility] [address] [place] [address] 11148- 7557 May, Canker sores oral K12.0 [facility] [address] [place] [id number] [place] [address] 18189- 8244 May, Generalized anxiety disorder F41.1 and Other chronic pain G89.29 [facility] [address] [address] 9[address] May, [facility] [address] [place] [id number] [place] [address] 44614- 0684 Apr, [facility] [address] [address] Apr, Acute cystitis with hematuria N30.01 and Dysuria R30.0 [facility] [id number] [place] [address] 69189- 0652 Apr, [facility] [address] [place] [id number] [place] [address] 72441- 9193 Apr, [facility] [address] [place] [id number] [place] [address] 86655- 4268 Apr, 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 [facility] [address] [place] [id number] [place] [address] 43907- 2007 06 Apr, 2017 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 [place] [address] [address] Apr, [place] [address] [address]- 0931 Apr, [place] [address] [id number] [place] [address] 53245- 2421 Apr, Other chronic pain G89.29 ; Generalized anxiety disorder F41.1 ; Cervicalgia M54.2 and Controlled substance agreement signed Z79.899 [facility] [id number] [place] [address] 67647 -0246 Mar, Abdominal pain R10.9 and Viral gastroenteritis A08.4 [place] [address] [place] [id number] [place] [address] 60504- 7960 Mar, [facility] [address] [place] [id number] [place] [address] 16033- 2649 Mar, [place] [address] [place] [id number] [place] [address] 45172- 3307 Mar, 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 ; Type 2 diabetes mellitus with hyperglycemia E11.65 ; 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.4 ; Essential hypertension I10 ; Bronchitis J40 ; Major depressive disorder , recurrent episode, moderate F33.1 ; Hyperlipidemia, unspecified hyperlipidemia type E78.5 ; Tobacco abuse Z72.0 ; Tobacco abuse counseling Z71.6 ; History of CVA with residual deficit I69.30 ; Gastroesophageal reflux disease, esophagitis presence not specified K21.9 and 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 [place] [address] 86135- 1641 Mar, [place] [address] 00203- 4286 Mar, 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 ; Abnormal lung sounds R09.89 ; Bronchitis J40 and Hyperlipidemia, unspecified hyperlipidemia type E78.5 [facility] [address] [address] Mar, URI, acute J06.9 [place] [address] [address]50- 3153 Mar, [place] [address] 40510- 2148 Mar, 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 [place] [address] 92645- 2916 Mar, Other chronic pain G89.29 and Generalized anxiety disorder F41.1 [place] [address] 14861- 6623 Feb, [place] [address] 37473- 4673 Feb, Mass of left lung R91.8 and Cervicalgia M54.2 [place] [address] 43[address]- 5380 Feb, [place] [address] [address]- [address]29 Feb, [facility] [place] [address] [address] Feb, Cough R05 and Bronchitis J40 [facility] [address] [place] [address] 07 Feb, 2017 Acute nasopharyngitis J00 and Bronchitis J40 [facility] [address] 7[address]- [address] 06 Feb, 2017 Other chronic pain G89.29 and Generalized anxiety disorder F41.1 [facility] [address] 11598- 3702 29 Jan, 2017 Encounter for immunization Z23 [facility] [address] [address] Jan, [facility] [address] [address] 18 Jan, 2017 [place] [address] [address]- [address] 16 Jan, 2017 Canker sores oral K12.0 [place] [address] 0[address]- 9588 14 Jan, 2017 [place] [address] 60716- 2149 07 Jan, 2017 Other chronic pain G89.29 and Generalized anxiety disorder F41.1 [place] [address] 11068- 9548 06 Jan, 2017 Cough R05 and Bronchitis J40 [facility] [address] [address] 04 Jan, 2017 Bronchitis J40 [place] [address] 90229- 7683 Dec, Vitamin D deficiency E55.9 [place] [address] 48669- 3411 Dec, 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 [place] [address] 07139- 4496 Dec, 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 and Vitamin D deficiency E55.9 [place] [address] [id number] [place] [address] 88620- 3409 10 Dec, 2016 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 ; Essential hypertension I10 ; Hyperlipidemia, unspecified hyperlipidemia type E78.5 ; Vitamin D deficiency E55.9 ; Gastroesophageal reflux disease, esophagitis presence not specified K21.9 ; 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 ; Other chronic pain G89.29 ; Encounter for immunization Z23 and Generalized anxiety disorder F41.1 [place] [address] [address]66- 39[address] 12 Nov, 2016 History of CVA with residual deficit I69.[address] [address]- [address] 11 Nov, 2016 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 [address]- 5081 06 Nov, 2016 Left otitis media with effusion H65.92 ; Bronchitis J40 and Canker sores oral K12.[address] [address]- 1619 Oct, [address] [address]- 6118 Oct, 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 [place] [address] [place] [id number] [place] [address] 29759- 7445 Oct, [place] [address] 39675- 2734 Sep, 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 [place] [address] [address]- 5611 Sep, 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 ; Essential hypertension I10 ; Gastroesophageal reflux disease, esophagitis presence not specified K21.9 ; Hyperlipidemia, unspecified hyperlipidemia type E78.5 ; Tobacco abuse Z72.0 ; Vitamin D deficiency E55.9 ; History of CVA with residual deficit I69.30 and Seasonal allergic rhinitis due to pollen J30.1 [facility] [address] [address] 4[address] Sep, [facility] [address] [place] [id number] [place] [address] 13846- 2986 Aug, [facility] [address] [place] [address]11 -[address]81 Aug, Dysuria R30.0 ; Acute cystitis with hematuria N30.01 and Middle ear effusion, right H65.91 [facility] [address] [place] [id number] [place] [address] 31008- 8165 Aug, Other complicated headache syndrome G44.59 [facility] [address] [id number] [place] [address] 87699- 4068 Aug, 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 [facility] [address] [place] [id number] [place] [address] 55468- 7098 Aug, Dysuria R30.0 [facility] [address] [id number] [place] [address] 72466- 8383 Aug, Dysuria R30.0 [facility] [address] [place] [id number] [place] [address] 93991- 1261 Aug, [facility] [address] [address]- 0926 July, [facility] [address] [place] [id number] [place] [address] 96390- 8345 July, [facility] [address] [place] [address] 34416- 1859 July, 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 [facility] [address] [place] [id number] [place] [address] 82939- 5235 July, Other complicated headache syndrome G44.59 [facility] [address] [place] [id number] [place] [address] 15519- 8984 July, [facility] [address] [id number] [place] [address] 60843 -9001 July, Dysuria R30.0 and Acute cystitis with hematuria N30.01 [facility] [address] [place] [place] [id number] [place] [address] 16583- 4374 July, [facility] [address] 21814- 4921 July, Other complicated headache syndrome G44.59 [facility] [address] [place] [id number] [place] [address] 37900 -6907 Jun, Exposure to strep throat Z20.818 and Acute upper respiratory infection, unspecified J06.9 [facility] [address] [place] [id number] [place] [address] 02173- 7697 Jun, [facility] [address] 58799- 7393 Jun, 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 and Gastroesophageal reflux disease, esophagitis presence not specified K21.9 [facility] [address] [place] [place] [id number] [place] [address] 77212- 8627 Jun, [facility] [address] [place] [place] [id number] [place] [address] 83502- 1268 Jun, Dizziness R42 [facility] [address] [place] [id number] [place] [address] 54869 -6506 Jun, [facility] [address] [place] [id number] [place] [address] 97072- 6343 Jun, [facility] [address] [place] [id number] [place] [address] 75871 -8619 May, Seasonal allergic rhinitis, unspecified allergic rhinitis trigger J30.2 [facility] [address] [place] [id number] [place] [address] 53686- 4234 May, [facility] [address] 12382- 8054 May, 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 [...] Seasonal allergic rhinitis due to pollen J30.1 [facility] [address] 89789- 3072 May, Gastroesophageal reflux disease, esophagitis presence not specified K21.9 [facility] [address] 96985- 2584 May, [facility] [address] [place] [id number] [place] [address] 71381- 0245 Apr, [facility] [address] 18042- 8297 Apr, [facility] [address] [place] [id number] [place] [address] 97939- 2668 Mar, [facility] [address] [place] [id number] [place] [address] 46471- 2782 Mar, [facility] [address] [place] [id number] [place] [address] 26682- 0668 Mar, [facility] [address] [place] [id number] [place] [address] 56202- 5078 Mar, [facility] [address] [place] [id number] [place] [address] 53521- 3134 Feb, [facility] [address] [id number]- 3577 Feb, [facility] [address] [place] [id number] [place] [address] 423985- 0381 Feb, [facility] [address] [place] [id number] [place] [address] 53632- 9884 Feb, Major depressive disorder, recurrent episode, moderate F33.1 ; Generalized anxiety disorder F41.1 ; Essential hypertension I10 ; DM ( diabetes mellitus) 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 ; Hyperlipidemia, unspecified hyperlipidemia type E78.5 ; 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 and Gastroesophageal reflux disease, esophagitis presence not specified K21.9 [facility] [address] [id number] [place] [address] 11274 -4471 Feb, Other viral agents as the cause of diseases classified elsewhere B97.89 and Acute upper respiratory infection, unspecified J06.9 [place] [address] [place] [id number] [place] [address] 92136- 6986 Jan, [place] [address] 88329- 1910 Jan, [facility] [address] [id number] [place] [address] 48487 -4487 Jan, Acute bronchitis, unspecified organism J20.9 [facility] [address] [place] [id number] [place] [address] 78209- 4755 Jan, [place] [address] [id number] [place] [address] 56053- 5764 Jan, History of CVA with residual deficit I69.30 [place] [address] [id number] [place] [address] 62290- 1662 Jan, [place] [address] [place] [id number] [place] [address] 63408- 7769 Jan, Acute bronchitis, unspecified organism J20.9 [facility] [address] [place] [id number] [place] [address] 32274- 0577 Jan, [place] [address] 95955- 1314 Dec, History of CVA with residual deficit I69.30 [facility] [address] [place] [id number] [place] [address] 54629- 0455 Dec, [place] [address] [place] [address] 84260- 9901 Dec, Other chronic pain G89.29 ; 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 and History of CVA with residual deficit I69.30 [place] [address] [place] [address] 62406- 4090 Nov, Major depressive disorder, recurrent episode, moderate F33.1 ; Irregular heart rhythm I49.9 ; Essential hypertension I10 ; History of CVA with residual deficit I69.30 ; 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 ; Gastroesophageal reflux disease, esophagitis presence not specified K21.9 ; Hyperlipidemia, unspecified hyperlipidemia type E78.5 ; 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 ; Other chronic pain G89.29 and Generalized anxiety disorder F41.1 [place] [id number] [place] [address] 18778- 7563 Oct, Generalized anxiety disorder F41.1 ; Major depressive disorder, recurrent episode, moderate F33.1 ; Essential hypertension I10 ; History of CVA with residual deficit I69.30 ; 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 ; Gastroesophageal reflux disease, esophagitis presence not specified K21.9 ; Hyperlipidemia, unspecified hyperlipidemia type E78.5 ; Other chronic pain G89.29 and Bacterial conjunctivitis of left eye H10.9 [place] [id number] [place] [address] 38437- 6719 Sep, Chronic pain syndrome G89.4 and 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 [place] [address] [place] [id number] [place] [address] 20650- 7161 05 Sep, 2015 Irregular heart rhythm I49.9 ; Routine health maintenance Z00.00 ; Essential hypertension I10 ; History of CVA with residual deficit I69.30 ; Gastroesophageal reflux disease, esophagitis presence not specified K21.9 ; 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 ; Hyperlipidemia, unspecified hyperlipidemia type E78.5 and Other complicated headache syndrome G44.59 [place] [id number] [place] [address] 04091- 6476 Jun, [facility] [address] [facility] [id number] [address] 2685 Jun, [facility] [address] [facility] [id number] [address]- 5908 Aug, [facility] [address] [facility] [id number] [address] 93[address] Jun, IMMUNIZATIONS No Known Immunizations SOCIAL HISTORY Never Assessed REASON FOR VISIT Pain (acute) -back-mid back pain chest congestion cough, ears feel full, head congestion, began about a week ago-Kelly PLAN OF CARE Activity Details Follow Up if not improving with PCP or reg follow up Reason: VITAL SIGNS Height 62 in 2016-11-24 Weight 207.8 lbs 2016-11-24 Temperature 98.2 degrees Fahrenheit 2016-11-24 Heart Rate 96 bpm 2016-11-24 Respiratory Rate 18 2016-11-24 BMI 38.00 kg/m2 2016-11-24 Blood pressure systolic 122 mmHg 2016-11-24 Blood pressure diastolic 68 mmHg 2016-11-24 MEDICATIONS Medication Instructions Dosage Frequency Start Date End Date Duration Status Triamcinolone Acetonide 0.1 % oral lesion twice a day 1 application at bedtime 12h Nov, 07 days Active Pantoprazole Sodium 20 mg Orally 2 times a day 1 tablets 12h May, 90 days Active Naproxen 500 mg Orally Once a day 1 tablet 24h 90 days Active Pen [place] 31G X 5 MM subcutaneously Once a day as directed 24h Jan, 90 days Active Fluticasone Propionate 50 MCG/ACT Nasally Once a day 1 spray in each nostril 24h 20 Feb, 2016 30 day(s) Active Test strips 8h Active Ceftin 250 MG Orally Twice a day 1 tablet 12h Nov, 16 Nov, 2016 10 day(s) Active Xanax 1 MG Orally 4 times a day 1 tablet 6h 28 days Active PredniSONE 20 mg Orally Once a day 1 tablet 24h Nov, Nov, 05 days Active Lancets - Active ProAir HFA 108 (90 Base) MCG/ACT Inhalation every 4 hrs prn 2 puffs as needed Nov, Active Hydrochlorothiazide 25 MG Orally Once a day 1 tablet 24h 90 days Active Fenofibrate 54 Orally Once a day 1 tablet with a meal 24h 90 Active Carafate 1 GM Orally Twice a day 1 tablet on an empty stomach 12h 24 May, 2016 30 day(s) Active Bath/Shower Seat 1 please provide one adult shower seat for patient use one time shower/bath seat for bathing Dec, Active One Touch/One Touch II Starter 1 glucometer subcutaneously 3 times a day to take blood sugars daily Dispense as insurance allows 8h Sep, Active ASA Oral Once a day 1 tab 24h Jun, 90 days Active MetFORMIN HCl ER 750 MG Orally twice a day 1 tablet 12h 90 days Active Atorvastatin Calcium 80 MG Orally Once a day 1 tablet 24h 90 days Active OneTouch Delica Lancets 33G 33 TEST BLOOD SUGAR THREE TIMES A DAY E11.8 30 Active Plavix 75 MG Orally Once a day 1 tablet 24h 90 days Active Hydrocodone-Acetaminophen 10-325 MG Orally every 6 hrs 1 tablet as needed 6h Oct, 28 days Active Cholecalciferol 5000 UNIT Orally Once a day 1 capsule 24h Sep, Dec, 90 days Active Walker - as directed Jan, Active Diltiazem HCl ER 120 MG Orally Once a day 1 capsule on an empty stomach in the morning 24h 90 days Active Levemir Flexpen 100 UNIT/ML Subcutaneous at hs 25 units 90 days Active Metoprolol Tartrate 25 MG Orally Twice a day 1 tablet with food 12h 90 days Active RESULTS No Results PROCEDURES Procedure Date Ordered Result Body Site [facility] VISIT ESTABLISHED PATIENT Nov 24, 2016 INSTRUCTIONS MEDICATIONS ADMINISTERED No Known Medications MEDICAL (GENERAL) HISTORY Type Description Date Medical History diabetes mellitus Medical History hyperlipidemia Medical History hypertension Medical History stroke Medical History Anxiety disorder Medical History Panic attacks Medical History Blood Clotting Disorder- Dr Galvan at [facility] Medical History Possible Anemia (currently under work up) - Dr Galvan [facility] Medical History irregular heart beat-sees dr. hassan Medical History history of pancreatitis Medical History gerd Medical History History of CVA with residual deficit Medical History Other complicated headache syndrome Medical History Stokes syndrome Surgical History tubal ligation Surgical History section Surgical History cholecystectomy Surgical History Toe Nail Removal x2 Hospitalization History Brain Stem Strokes x5. Has been hospitalized at then transfered to [place]. 2014 Hospitalization History Child Hospitalization History abd pain and shakiness - [facility] ED visit [facility] Hospitalization History [facility] ED for URI 04/16/17
--- OUTSIDE RECORDS SUMMARY | 2017-08-16 22:54 | XMS REPORT ---
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 Active 18678454 Problem Tobacco abuse Z72.0 Active 009987975 Problem Other chronic pain G89.29 Active 02674410 Problem Type 2 diabetes mellitus with hyperglycemia E11.65 Active 27617909 Problem MCC current use of insulin Z79.4 Active 846955260 Problem Seasonal allergic rhinitis due to pollen J30.1 Active 19599252 Problem Tobacco abuse counseling Z71.6 Active 983993493 Problem History of CVA with residual deficit I69.30 Active 843449501 Problem Simple chronic bronchitis J41.0 Active 09178104 Problem 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 Active 985618861 Problem Generalized anxiety disorder F41.1 Active 53114496 Problem Hyperlipidemia, unspecified hyperlipidemia type E78.5 Active 47072223 Problem Gastroesophageal reflux disease, esophagitis presence not specified K21.9 Active 165171017 Problem Vitamin D deficiency E55.9 Active 72699181 Problem Essential hypertension I10 Active 99093441 Problem Major depressive disorder, recurrent episode, moderate F33.1 Active 431047010 Problem Irregular heart rhythm I49.9 Active 802162551 ALLERGIES No Information ENCOUNTERS Encounter Location Date Diagnosis [facility] [address] [facility] [id number] [address] May, Right upper quadrant pain R10.11 ; Cervicalgia M54.2 ; High risk medication use Z79.899 and Mass of left lung R91.8 [facility] [address] [facility] [id number], [place] [address] May, Generalized anxiety disorder F41.1 and Other chronic pain G89.29 [facility] [id number] [place] [address] 63967- 9040 May, Canker sores oral K12.0 [facility] [id number] [place] [address] 48353- 8210 May, Generalized anxiety disorder F41.1 and Other chronic pain G89.29 [facility] [address] [address]- [address] May, [facility] [id number] [place] [address] 73801- 2471 Apr, [facility] [address] [address] Apr, Acute cystitis with hematuria N30.01 and Dysuria R30.0 [place] [address] [address] Apr, [facility] [address] [address] Apr, [facility] [address] 733[address]- 9409 Apr, 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 [place] [id number] [place] [address] 86189- 9235 Apr, 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 [facility] [id number] [place] [address] 35593- 3139 Apr, [facility] [id number] [place] [address] 38216- 6987 Apr, [facility] [address] [place] [id number]- [address]26 Apr, Other chronic pain G89.29 ; Generalized anxiety disorder F41.1 ; Cervicalgia M54.2 and Controlled substance agreement signed Z79.899 [facility] [address] [place] [address] Mar, Abdominal pain R10.9 and Viral gastroenteritis A08.4 [place] [address] [address]- 0147 Mar, [place] [address] 7[address]- 7829 Mar, [place] [address] [address]- [address] Mar, 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 ; Type 2 diabetes mellitus with hyperglycemia E11.65 ; 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.4 ; Essential hypertension I10 ; Bronchitis J40 ; Major depressive disorder , recurrent episode, moderate F33.1 ; Hyperlipidemia, unspecified hyperlipidemia type E78.5 ; Tobacco abuse Z72.0 ; Tobacco abuse counseling Z71.6 ; History of CVA with residual deficit I69.30 ; Gastroesophageal reflux disease, esophagitis presence not specified K21.9 and 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 [place] [address] 97814- 7720 Mar, [place] [address] 67863- 8187 Mar, 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 ; Abnormal lung sounds R09.89 ; Bronchitis J40 and Hyperlipidemia, unspecified hyperlipidemia type E78.5 [facility] [id number] [place] [address] 08820 -6082 05 Mar, 2017 URI, acute J06.9 [facility] [id number] [place] [address] 52522- 8559 Mar, [place] [address] 94734- 8187 Mar, 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 [place] [address] 08815- 1502 03 Mar, 2017 Other chronic pain G89.29 and Generalized anxiety disorder F41.1 [facility] [address] 24613- 3512 Feb, [facility] [address] 66635- 5502 Feb, Mass of left lung R91.8 and Cervicalgia M54.2 [facility] [address] 62[address]- 7072 Feb, [facility] [address] 68014- 7255 Feb, [facility] [address] [address] Feb, Cough R05 and Bronchitis J40 [facility] [address] 04[address] 07 Feb, 2017 Acute nasopharyngitis J00 and Bronchitis J40 [place] [address] 58968- 6555 06 Feb, 2017 Other chronic pain G89.29 and Generalized anxiety disorder F41.1 [place] [address] 59930- 1784 Jan, Encounter for immunization Z23 [facility] [address] [address] Jan, [facility] [address] 98053 [address]0998 18 Jan, 2017 [facility] [address] 34415- 8696 16 Jan, 2017 Canker sores oral K12.0 [place] [address] 49280- 0927 14 Jan, 2017 [facility] [address] 93273- 9[address] 07 Jan, 2017 Other chronic pain G89.29 and Generalized anxiety disorder F41.1 [place] [address] [place] [id number] [place] [address] 54650- 2427 Jan, Cough R05 and Bronchitis J40 [facility] [address] [address] Jan, Bronchitis J40 [facility] [address] 04122- 2969 Dec, Vitamin D deficiency E55.9 [place] [address] [address]05- 3447 Dec, 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 [place] [address] 52435- 6293 Dec, 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 and Vitamin D deficiency E55.9 [place] [address] 75339- 1355 Dec, 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 ; Essential hypertension I10 ; Hyperlipidemia, unspecified hyperlipidemia type E78.5 ; Vitamin D deficiency E55.9 ; Gastroesophageal reflux disease, esophagitis presence not specified K21.9 ; 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 ; Other chronic pain G89.29 ; Encounter for immunization Z23 and Generalized anxiety disorder F41.1 [place] [address] [address]- [address] Nov, History of CVA with residual deficit I69.30 [place] [address] 07802- 3555 Nov, 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 [place] [address] 70432- 6947 06 Nov, 2016 Left otitis media with effusion H65.92 ; Bronchitis J40 and Canker sores oral K12.0 [place] [address] 19009- 6039 Oct, [place] [address] 45071- 2896 04 Oct, 2016 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 [place] [address] [id number] [place] [address] 69894- 9922 02 Oct, 2016 [facility] [id number] [place] [address] 29405- 2087 Sep, 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 [place] [id number] [place] [address] 77873- 7487 Sep, 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 ; Essential hypertension I10 ; Gastroesophageal reflux disease, esophagitis presence not specified K21.9 ; Hyperlipidemia, unspecified hyperlipidemia type E78.5 ; Tobacco abuse Z72.0 ; Vitamin D deficiency E55.9 ; History of CVA with residual deficit I69.30 and Seasonal allergic rhinitis due to pollen J30.1 [place] [id number] [place] [address] 08114- 4723 Sep, [place] [id number] [place] [address] 59437- 5238 30 Aug, 2016 [facility] [id number] [place] [address]1964 -9395 Aug, Dysuria R30.0 ; Acute cystitis with hematuria N30.01 and Middle ear effusion, right H65.91 [place] [id number] [place] [address] 31673- 3598 Aug, Other complicated headache syndrome G44.59 [place] [id number] [place] [address] 99891- 2120 19 Aug, 2016 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 [place] [id number] [place] [address] 47348- 4124 14 Aug, 2016 Dysuria R30.0 [place] [id number] [place] [address] 43065- 8089 12 Aug, 2016 Dysuria R30.0 [place] [address] [address] [id number] [address] Aug, [facility] [id number] [place] [address] 52279- 2695 July, [facility] [id number] [place] [address] 00972- 6471 July, [facility] [id number] [place] [address] 12410- 2945 July, 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 [facility] [id number] [place] [address] 92867- 7240 July, Other complicated headache syndrome G44.59 [place] [id number] [place] [address] 99589- 8582 July, [facility] [id number] [place] [address] 80779 -0781 July, Dysuria R30.0 and Acute cystitis with hematuria N30.01 [facility] [address] [place] [address] 37755- 5445 July, [place] [address] [id number] [place] [address] 23565- 2172 July, Other complicated headache syndrome G44.59 [facility] [address] [address] Jun, Exposure to strep throat Z20.818 and Acute upper respiratory infection, unspecified J06.9 [facility] [address] [address] Jun, [place] [id number] [place] [address] 44044- 9905 Jun, 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 and Gastroesophageal reflux disease, esophagitis presence not specified K21.9 [place] [id number] [place] [address] 74513- 1459 Jun, [place] [address] [id number] [place] [address] 55750- 8155 Jun, Dizziness R42 [facility] [id number] [place] [address] 63680 -2523 Jun, [facility] [id number] [place] [address] 22617- 9067 Jun, [facility] [address] 69980 -0679 May, Seasonal allergic rhinitis, unspecified allergic rhinitis trigger J30.2 [facility] [address] 35159- 0634 May, [facility] [address] 34153- 0719 May, 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 [...] Seasonal allergic rhinitis due to pollen J30.1 [facility] [id number] [place] [address] 01867- 0795 May, Gastroesophageal reflux disease, esophagitis presence not specified K21.9 [facility] [id number] [place] [address] 19708- 3590 May, [facility] [id number] [place] [address] 71794- 2548 Apr, [facility] [id number] [place] [address] 83857- 0409 Apr, [facility] [id number] [place] [address] 51940- 9501 Mar, [facility] [id number] [place] [address] 43331- 2405 Mar, [facility] [id number] [place] [address] 41302- 4226 Mar, [facility] [id number] [place] [address] 03218- 5395 Mar, [facility] [id number] [place] [address] 14774- 9205 Feb, [facility] [address] 97553- 0379 Feb, [facility] [id number] [place] [address] 64047- 0111 Feb, [facility] [id number] [place] [address] 07770- 8778 Feb, Major depressive disorder, recurrent episode, moderate F33.1 ; Generalized anxiety disorder F41.1 ; Essential hypertension I10 ; DM ( diabetes mellitus) 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 ; Hyperlipidemia, unspecified hyperlipidemia type E78.5 ; 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 and Gastroesophageal reflux disease, esophagitis presence not specified K21.9 [facility] [id number] [place] [address] 12957 -0325 Feb, Other viral agents as the cause of diseases classified elsewhere B97.89 and Acute upper respiratory infection, unspecified J06.9 [facility] [address] [place] [address] 81325- 0311 Jan, [facility] [id number] [place] [address] 37948- 7110 Jan, [facility] [id number] [place] [address] 90165 -3657 Jan, Acute bronchitis, unspecified organism J20.9 [facility] [id number] [place] [address] 04283- 1582 Jan, [facility] [address] [id number] [place] [address] 26912- 2014 Jan, History of CVA with residual deficit I69.30 [place] [address] [place] [address] 33861- 1991 Jan, [place] [address] [id number] [place] [address] 74959- 9064 Jan, Acute bronchitis, unspecified organism J20.9 [place] [address] [id number] [place] [address] 77754- 7869 Jan, [place] [id number] [place] [address] 72457- 6847 Dec, History of CVA with residual deficit I69.30 [place] [address] [id number] [place] [address] 38998- 5228 Dec, [place] [address] [id number] [place] [address] 92798- 3013 Dec, Other chronic pain G89.29 ; 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 and History of CVA with residual deficit I69.30 [place] [address] [place] [address] 62040- 7265 Nov, Major depressive disorder, recurrent episode, moderate F33.1 ; Irregular heart rhythm I49.9 ; Essential hypertension I10 ; History of CVA with residual deficit I69.30 ; 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 ; Gastroesophageal reflux disease, esophagitis presence not specified K21.9 ; Hyperlipidemia, unspecified hyperlipidemia type E78.5 ; 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 ; Other chronic pain G89.29 and Generalized anxiety disorder F41.1 [place] [address] [place] [address] 41984- 6862 Oct, Generalized anxiety disorder F41.1 ; Major depressive disorder, recurrent episode, moderate F33.1 ; Essential hypertension I10 ; History of CVA with residual deficit I69.30 ; 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 ; Gastroesophageal reflux disease, esophagitis presence not specified K21.9 ; Hyperlipidemia, unspecified hyperlipidemia type E78.5 ; Other chronic pain G89.29 and Bacterial conjunctivitis of left eye H10.[address] [place] [address] 50447- 7584 Sep, Chronic pain syndrome G89.4 and 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 [address] [place] [address] 99299- 8363 Sep, Irregular heart rhythm I49.9 ; Routine health maintenance Z00.00 ; Essential hypertension I10 ; History of CVA with residual deficit I69.30 ; Gastroesophageal reflux disease, esophagitis presence not specified K21.9 ; 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 ; Hyperlipidemia, unspecified hyperlipidemia type E78.5 and Other complicated headache syndrome G44.59 [place] [id number] [place] [address] 81794- 5861 Jun, [place] [id number] [place] [address] 02081- 7501 Jun, [place] [id number] [place] [address] 45396- 9256 Aug, [place] [id number] [place] [address] 24720- 2082 Jun, IMMUNIZATIONS No Known Immunizations SOCIAL HISTORY Never Assessed REASON FOR VISIT Pain Med Refill PLAN OF CARE VITAL SIGNS MEDICATIONS Medication Instructions Dosage Frequency Start Date End Date Duration Status Hydrocodone-Acetaminophen 10-325 MG Orally every 6 hrs 1 tablet as needed 6h Sep, 28 days Active Xanax 1 MG Orally [...] History Blood Clotting Disorder- Dr Galvan at [facility] Medical History Possible Anemia (currently under work up) - Dr Galvan [facility] Medical History irregular heart beat-sees [...] Has been hospitalized at then transfered to [facility]. 2015 Hospitalization History Child Hospitalization History abd pain and shakiness - [facility] ED visit [facility] Hospitalization History [facility] ED for URI 04/16/17
--- OUTSIDE RECORDS SUMMARY | 2017-08-16 22:57 | XMS REPORT ---
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 Active 48835682 Problem Tobacco abuse Z72.0 Active 939580211 Problem Other chronic pain G89.29 Active 50466084 Problem Type 2 diabetes mellitus with hyperglycemia E11.65 Active 83976933 Problem FCI current use of insulin Z79.4 Active 613952665 Problem Seasonal allergic rhinitis due to pollen J30.1 Active 42542656 Problem Tobacco abuse counseling Z71.6 Active 795619682 Problem History of CVA with residual deficit I69.30 Active 404559672 Problem Simple chronic bronchitis J41.0 Active 22776472 Problem Major depressive disorder, recurrent episode, moderate F33.1 Active 104799155 Problem Elevated liver enzymes R74.8 Active 320340444 Problem Vitamin D deficiency E55.9 Active 58456048 Problem Hyperlipidemia, unspecified hyperlipidemia type E78.5 Active 53665953 Problem Gastroesophageal reflux disease, esophagitis presence not specified K21.9 Active 899785604 Problem Generalized anxiety disorder F41.1 Active 77531259 Problem Essential hypertension I10 Active 09224390 Problem 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 Active 185107552 Problem Irregular heart rhythm I49.9 Active 678866155 ALLERGIES Substance Reaction Event Type Date Status Penicillin V Potassium Unknown Drug Allergy Dec, Active Erythromycin Base Unknown Drug Allergy Dec, Active Codeine Unknown Drug Allergy Dec, Active ENCOUNTERS Encounter Location Date Diagnosis [facility] [address] [facility] [id number] [address] July, [facility] [address] [facility] [address] [facility] [id number] [place] [address] Jun, Generalized anxiety disorder F41.1 and Other chronic pain G89.29 [facility] [id number] [place] [address] 49370- 7323 Jun, [facility] [address] [place] [id number] [place] [address] 95824- 7336 Jun, [facility] [address] [id number] [place] [address] 16492- 8214 Jun, Abnormal levels of other serum enzymes R74.8 [facility] [address] [id number] [place] [address] 98684- 7591 Jun, Abnormal levels of other serum enzymes R74.8 [place] [address] [id number] [place] [address] 50388- 5453 Jun, Elevated liver enzymes R74.8 [place] [address] [id number] [place] [address] 63345- 4157 Jun, Elevated liver enzymes R74.8 [facility] [id number] [place] [address] 76454- 7000 May, Right upper quadrant pain R10.11 ; Cervicalgia M54.2 and High risk medication use Z79.899 [facility] [id number] [place] [address] 95182- 8181 May, Generalized anxiety disorder F41.1 and Other chronic pain G89.29 [facility] [id number] [place] [address] 85925- 2504 May, Canker sores oral K12.0 [facility] [id number] [place] [address] 86610- 2265 May, Generalized anxiety disorder F41.1 and Other chronic pain G89.29 [facility] [id number] [place] [address] 66008- 4817 May, [facility] [id number] [place] [address] 89850- 2906 Apr, 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 ; Type 2 diabetes mellitus with hyperglycemia E11.65 ; FCI current use of insulin Z79.4 ; Essential hypertension I10 ; Bronchitis J40 ; Major depressive disorder , recurrent episode, moderate F33.1 ; Hyperlipidemia, unspecified hyperlipidemia type E78.5 ; Tobacco abuse Z72.0 ; Tobacco abuse counseling Z71.6 ; History of CVA with residual deficit I69.30 ; Gastroesophageal reflux disease, esophagitis presence not specified K21.9 and 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 48634- 0180 Mar, [place] [address] 84665- 0816 Mar, 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 ; Abnormal lung sounds R09.89 ; Bronchitis J40 and Hyperlipidemia, unspecified hyperlipidemia type E78.5 [facility] [place] [id number] [place] [address] 36369 -3514 Mar, URI, acute J06.9 [place] [address] 81164- 2284 Mar, [address] 50068- 1043 Mar, 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 [place] [address] [id number] [place] [address] 56384- 0610 Mar, Other chronic pain G89.29 and Generalized anxiety disorder F41.1 [place] [id number] [place] [address] 79626- 4798 Feb, [address] 39599- 2347 Feb, Mass of left lung R91.8 and Cervicalgia M54.[address] 07234- 3395 Feb, [place] [address] 71201- 4481 Feb, [facility] [address] 07362 -1390 11 Feb, 2017 Cough R05 and Bronchitis J40 [facility] [address] 34678 -8877 07 Feb, 2017 Acute nasopharyngitis J00 and Bronchitis J40 [facility] [address] 64187- 9517 06 Feb, 2017 Other chronic pain G89.29 and Generalized anxiety disorder F41.1 [facility] [address] 88086- 5262 29 Jan, 2017 Encounter for immunization Z23 [facility] [address] 91782 -3114 Jan, [facility] [address] 52285 -4916 18 Jan, 2017 [facility] [address] 83107- 5442 16 Jan, 2017 Canker sores oral K12.0 [place] [address] 35958- 0583 14 Jan, 2017 [facility] [address] 23803- 8381 07 Jan, 2017 Other chronic pain G89.29 and Generalized anxiety disorder F41.1 [facility] [address] 58953- 1995 06 Jan, 2017 Cough R05 and Bronchitis J40 [facility] [address] 82685 -8229 Jan, Bronchitis J40 [facility] [address] 97755- 0333 Dec, Vitamin D deficiency E55.9 [place] [address] 04400- 1070 Dec, 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 [place] [address] [id number] [place] [address] 71940- 0926 19 Dec, 2016 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 and Vitamin D deficiency E55.9 [place] [address] 50521- 1485 10 Dec, 2016 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 ; Essential hypertension I10 ; Hyperlipidemia, unspecified hyperlipidemia type E78.5 ; Vitamin D deficiency E55.9 ; Gastroesophageal reflux disease, esophagitis presence not specified K21.9 ; 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 ; Other chronic pain G89.29 ; Encounter for immunization Z23 and Generalized anxiety disorder F41.[address] 42035- 6535 12 Nov, 2016 History of CVA with residual deficit I69.[address] 10007- 3828 11 Nov, 2016 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 [place] [address] 74238- 9655 06 Nov, 2016 Left otitis media with effusion H65.92 ; Bronchitis J40 and Canker sores oral K12.0 [place] [address] 78097- 2765 14 Oct, [address] 33307- 0751 Oct, 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 [place] [address] [id number] [place] [address] 58648- 0747 Oct, [address] 99015- 5250 Sep, 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 [place] [address] [id number] [place] [address] 20487- 1585 Sep, 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 [place] [id number] [place] [address] 10732- 3641 Aug, Dysuria R30.0 [place] [address] [id number] [place] [address] 37482- 5249 Aug, Dysuria R30.0 [place] [address] [id number] [place] [address] 56442- 0181 Aug, [place] [address] [id number] [place] [address] 29201- 8739 July, [place] [address] [id number] [place] [address] 83297- 9307 July, [place] [address] [id number] [place] [address] 64102- 2210 July, 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 [place] [id number] [place] [address] 65542- 3607 July, Other complicated headache syndrome G44.59 [facility] [id number] [place] [address] 12006- 0837 July, [facility] [id number] [place] [address] 37579 -1502 July, Dysuria R30.0 and Acute cystitis with hematuria N30.01 [facility] [address] 10841- 3167 July, [facility] [address] 06364- 2040 July, Other complicated headache syndrome G44.59 [facility] [address] 37408 -5450 Jun, Exposure to strep throat Z20.818 and Acute upper respiratory infection, unspecified J06.9 [facility] [address] 03995- 6032 Jun, [facility] [address] 06864- 3779 Jun, 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 and Gastroesophageal reflux disease, esophagitis presence not specified K21.9 [facility] [id number] [place] [address] 90897- 8986 Jun, [facility] [id number] [place] [address] 93342- 3380 Jun, Dizziness R42 [facility] [id number] [place] [address] 25229 -9921 Jun, [facility] [address] 39382- 1318 Jun, [facility] [id number] [place] [address] 83137 -1261 May, Seasonal allergic rhinitis, unspecified allergic rhinitis trigger J30.2 [facility] [address] [place] [address]- 7237 May, [facility] [id number] [place] [address] 84570- 7282 May, 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 [...] Seasonal allergic rhinitis due to pollen J30.1 [facility] [address] 00108- 5166 May, Gastroesophageal reflux disease, esophagitis presence not specified K21.9 [facility] [address] [id number] [place] [address] 81152- 9528 May, [facility] [address] [id number] [place] [address] 65849- 3561 Apr, [facility] [address] [id number] [place] [address] 52271- 6130 Apr, [facility] [address] [id number] [place] [address] 63892- 9773 Mar, [facility] [address] [id number] [place] [address] 37096- 3926 Mar, [facility] [address] [id number] [place] [address] 96551- 4552 Mar, [facility] [address] [id number] [place] [address] 75557- 9978 Mar, [facility] [address] [id number] [place] [address] 186736- 3608 Feb, [facility] [address] [id number] [place] [address] 306295- 8175 Feb, [facility] [address] [place] [address]- 5464 Feb, [facility] [address] [id number] [place] [address] 37928- 3585 Feb, Major depressive disorder, recurrent episode, moderate F33.1 ; Generalized anxiety disorder F41.1 ; Essential hypertension I10 ; DM ( diabetes mellitus) 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 ; Hyperlipidemia, unspecified hyperlipidemia type E78.5 ; 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 [address] [id number] [place] [address] 39662 -7311 Feb, Other viral agents as the cause of diseases classified elsewhere B97.89 and Acute upper respiratory infection, unspecified J06.9 [place] [address] [id number] [place] [address] 96238- 3482 Jan, [place] [address] 84312- 3393 Jan, [facility] [id number] [place] [address] 59908 -3727 Jan, Acute bronchitis, unspecified organism J20.9 [place] [address] [id number] [place] [address] 82654- 4450 Jan, [place] [address] [id number] [place] [address] 48490- 4190 Jan, History of CVA with residual deficit I69.30 [place] [address] [id number] [place] [address] 08736- 0013 Jan, [place] [address] [id number] [place] [address] 46583- 6612 Jan, Acute bronchitis, unspecified organism J20.9 [place] [address] [id number] [place] [address] 51739- 1843 Jan, [place] [address] [id number] [place] [address] 20404- 8284 Dec, History of CVA with residual deficit I69.30 [place] [address] [place] [address] 09891- 4852 Dec, [place] [id number] [place] [address] 57362- 4893 Dec, Other chronic pain G89.29 ; 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 and History of CVA with residual deficit I69.30 [place] [id number] [place] [address] 35793- 1099 Nov, Major depressive disorder, recurrent episode, moderate F33.1 ; Irregular heart rhythm I49.9 ; Essential hypertension I10 ; History of CVA with residual deficit I69.30 ; 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 ; Gastroesophageal reflux disease, esophagitis presence not specified K21.9 ; Hyperlipidemia, unspecified hyperlipidemia type E78.5 ; 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 ; Other chronic pain G89.29 and Generalized anxiety disorder F41.1 [address] [place] [address] 27080- 6393 Oct, Generalized anxiety disorder F41.1 ; Major depressive disorder, recurrent episode, moderate F33.1 ; Essential hypertension I10 ; History of CVA with residual deficit I69.30 ; 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 ; Gastroesophageal reflux disease, esophagitis presence not specified K21.9 ; Hyperlipidemia, unspecified hyperlipidemia type E78.5 ; Other chronic pain G89.29 and Bacterial conjunctivitis of left eye H10.9 [address] [place] [address] 60862- 5678 Sep, Chronic pain syndrome G89.4 and 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 [place] [id number] [place] [address] 71834- 8734 05 Sep, 2015 Irregular heart rhythm I49.9 ; Routine health maintenance Z00.00 ; Essential hypertension I10 ; History of CVA with residual deficit I69.30 ; Gastroesophageal reflux disease, esophagitis presence not specified K21.9 ; 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 ; Hyperlipidemia, unspecified hyperlipidemia type E78.5 and Other complicated headache syndrome G44.59 [place] [address] [facility] [id number] [place] [address]- 7017 Jun, [place] [address] [facility] [id number] [place] [address]- 8440 Jun, [place] [address] [facility] [id number] [place] [address]- 6563 Aug, [place] [address] [facility] [facility] [id number] [address]- 2787 Jun, IMMUNIZATIONS Vaccine Route Administration Date Status FLUARIX QUAD (3 AND UP) 2016 IM Intramuscular Dec 28, 2016 Administered SOCIAL HISTORY Never Assessed REASON FOR VISIT Pain management (chronic)---CRyburn,CCMA, pt. states having tingling in both her hands for a few weeks PLAN OF CARE Activity Details Follow Up 3 Months Reason:CHM VITAL SIGNS Height 62 in 2016-12-28 Weight 207.0 lbs 2016-12-28 Temperature 98.7 degrees Fahrenheit 2016-12-28 Heart Rate 94 bpm 2016-12-28 Respiratory Rate 18 2016-12-28 BMI 37.86 kg/m2 2016-12-28 Blood pressure systolic 127 mmHg 2016-12-28 Blood pressure diastolic 83 mmHg 2016-12-28 MEDICATIONS Medication Instructions Dosage Frequency Start Date End Date Duration Status Canagliflozin 100 mg Orally Once a day 1 tablet 24h Dec, Mar, 30 day(s) Active Hydrochlorothiazide 25 MG Orally Once a day 1 tablet 24h 90 days Active Test strips 8h Active Pantoprazole Sodium 20 mg Orally 2 times a day 1 tablets 12h May, 90 days Active Hydrocodone-Acetaminophen 10-325 MG Orally every 6 hrs 1 tablet as needed 6h Dec, 28 days Active One Touch/One Touch II Starter 1 glucometer subcutaneously 3 times a day to take blood sugars daily Dispense as insurance allows 8h Sep, Active Fenofibrate 54 Orally Once a day 1 tablet with a meal 24h 90 Active Atorvastatin Calcium 80 MG Orally Once a day 1 tablet 24h 90 days Active Xanax 1 MG Orally 4 times a day 1 tablet 6h 28 days Active Diltiazem HCl ER 120 MG Orally Once a day 1 capsule on an empty stomach in the morning 24h 90 days Active Plavix 75 MG Orally Once a day 1 tablet 24h 90 days Active MetFORMIN HCl ER 750 MG Orally twice a day 1 tablet 12h 90 days Active Walker - as directed Jan, Active Carafate 1 GM Orally Twice a day 1 tablet on an empty stomach 12h 24 May, 2016 30 days Active ProAir HFA 108 (90 Base) MCG/ACT Inhalation every 4 hrs prn 2 puffs as needed Nov, Active OneTouch Delica Lancets 33G 33 TEST BLOOD SUGAR THREE TIMES A DAY E11.8 30 Active Levemir Flexpen 100 UNIT/ML Subcutaneous at hs 25 units 90 days Active Lancets - Active Triamcinolone Acetonide 0.1 % oral lesion twice a day 1 application at bedtime 12h Nov, 07 days Active Fluticasone Propionate 50 MCG/ACT Nasally Once a day 1 spray in each nostril 24h Feb, 30 day(s) Active Metoprolol Tartrate 25 MG Orally Twice a day 1 tablet with food 12h 90 days Active Bath/Shower Seat 1 please provide one adult shower seat for patient use one time shower/bath seat for bathing Dec, Active Naproxen 500 mg Orally bid prn 1 tablet Sep, 90 days Active Pen Montrose 31G X 5 MM subcutaneously Once a day as directed 24h 28 Jan, 2016 90 days Active ASA Oral Once a day 1 tab 24h 90 days Active RESULTS No Results PROCEDURES Procedure Date Ordered Result Body Site LAB NOT BILLED BY [employer] Dec 28, 2016 [facility] VISIT ESTABLISHED PATIENT Dec 28, 2016 FLUARIX QUAD (3 & UP)-[facility]-2014Dec 28, 2016 SINGLE IMMUNIZATION ADMIN Dec 28, 2016 INSTRUCTIONS MEDICATIONS ADMINISTERED No Known Medications MEDICAL (GENERAL) HISTORY Type Description Date Medical History diabetes mellitus Medical History hyperlipidemia Medical History hypertension Medical History stroke Medical History Anxiety disorder Medical History Panic attacks Medical History Blood Clotting Disorder- Dr Galvan at [facility] Medical History Possible Anemia (currently under work up) - Dr Galvan [facility] Medical History irregular heart beat-sees dr. hassan Medical History history of pancreatitis Medical History gerd Medical History History of CVA with residual deficit Medical History Other complicated headache syndrome Medical History Stokes syndrome Surgical History tubal ligation Surgical History section Surgical History cholecystectomy Surgical History Toe Nail Removal x2 Hospitalization History Brain Stem Strokes x5. Has been hospitalized at then transfered to [facility]. 2014 Hospitalization History Child Hospitalization History abd pain and shakiness - [facility] visit [facility] Hospitalization History [facility] for URI 04/16/17
--- OUTSIDE RECORDS SUMMARY | 2017-08-16 22:58 | XMS REPORT ---
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 Active 49991989 Problem Tobacco abuse Z72.0 Active 501208511 Problem Other chronic pain G89.29 Active 28913194 Problem Type 2 diabetes mellitus with hyperglycemia E11.65 Active 10724329 Problem skilled nursing current use of insulin Z79.4 Active 424297386 Problem Seasonal allergic rhinitis due to pollen J30.1 Active 67689014 Problem Tobacco abuse counseling Z71.6 Active 005534061 Problem History of CVA with residual deficit I69.30 Active 462862924 Problem Simple chronic bronchitis J41.0 Active 29237474 Problem 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 Active 015003646 Problem Generalized anxiety disorder F41.1 Active 57445094 Problem Hyperlipidemia, unspecified hyperlipidemia type E78.5 Active 12711605 Problem Gastroesophageal reflux disease, esophagitis presence not specified K21.9 Active 534974198 Problem Vitamin D deficiency E55.9 Active 41204275 Problem Essential hypertension I10 Active 80580990 Problem Major depressive disorder, recurrent episode, moderate F33.1 Active 529175120 Problem Irregular heart rhythm I49.9 Active 212878473 ALLERGIES No Information ENCOUNTERS Encounter Location Date Diagnosis [facility] [address] [facility] [id number] [address] July, [facility] [address], [place] [address] Jun, Elevated liver enzymes R74.8 [facility] [id number] [address] Jun, Elevated liver enzymes R74.8 [facility] [id number] [place] [address] 66485- 3620 30 May, 2017 Right upper quadrant pain R10.11 ; Cervicalgia M54.2 and High risk medication use Z79.899 [facility] [id number] [place] [address] 66000- 0890 May, Generalized anxiety disorder F41.1 and Other chronic pain G89.29 [facility] [id number] [place] [address] 38565- 4948 May, Canker sores oral K12.0 [place] [id number] [place] [address] 12951- 2527 02 May, 2017 Generalized anxiety disorder F41.1 and Other chronic pain G89.29 [facility] [id number] [place] [address] 37764- 5241 May, [facility] [id number] [place] [address] 54226- 3698 Apr, [facility] [id number] [place] [address] 52853 -3095 Apr, Acute cystitis with hematuria N30.01 and Dysuria R30.0 [facility] [address] [place] [address] 92785- 2959 20 Apr, 2017 [facility] [id number] [place] [address] 78183- 6402 Apr, [facility] [id number] [place] [address] 77341- 1146 08 Apr, 2017 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 [facility] [id number] [place] [address] 24505- 2380 06 Apr, 2017 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 [facility] [address] [place] [address] 86160- 3336 03 Apr, 2017 [facility] [id number] [place] [address] 29342- 7386 Apr, [place] [address] 27[address]- 9549 Apr, Other chronic pain G89.29 ; Generalized anxiety disorder F41.1 ; Cervicalgia M54.2 and Controlled substance agreement signed Z79.899 [facility] [address] [address] Mar, Abdominal pain R10.9 and Viral gastroenteritis A08.[address] [address]51- 2781 Mar, [place] [address] 46877- 3930 Mar, [place] [address] 02174- 5669 Mar, 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 ; Type 2 diabetes mellitus with hyperglycemia E11.65 ; skilled nursing current use of insulin Z79.4 ; Essential hypertension I10 ; Bronchitis J40 ; Major depressive disorder , recurrent episode, moderate F33.1 ; Hyperlipidemia, unspecified hyperlipidemia type E78.5 ; Tobacco abuse Z72.0 ; Tobacco abuse counseling Z71.6 ; History of CVA with residual deficit I69.30 ; Gastroesophageal reflux disease, esophagitis presence not specified K21.9 and 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 [place] [id number] [place] [address] 19205- 2154 Mar, [place] [id number] [place] [address] 27631- 4469 Mar, 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 ; Abnormal lung sounds R09.89 ; Bronchitis J40 and Hyperlipidemia, unspecified hyperlipidemia type E78.5 [facility] [id number] [place] [address] 85276 -7113 Mar, URI, acute J06.9 [place] [id number] [place] [address] 24937- 4589 Mar, [place] [address] 10145- 6246 Mar, 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 [place] [address] 22115- 2311 Mar, Other chronic pain G89.29 and Generalized anxiety disorder F41.1 [place] [address] 32683- 5849 Feb, [place] [address] 74310- 1755 Feb, Mass of left lung R91.8 and Cervicalgia M54.2 [place] [address] 71481- 5879 Feb, [address] 86214- 6964 Feb, [facility] [address] [place] [address] 58117 -8163 Feb, Cough R05 and Bronchitis J40 [facility] [address] [place] [address] 08523 -1575 07 Feb, 2017 Acute nasopharyngitis J00 and Bronchitis J40 [address] 40182- 2889 Feb, Other chronic pain G89.29 and Generalized anxiety disorder F41.[address] 98027- 6027 Jan, Encounter for immunization Z23 [facility] [address] [place] [address] 22738 -4311 Jan, [facility] [address] [place] [address]19 [address] Jan, [place] [address] 53499- 8416 16 Jan, 2017 Canker sores oral K12.[address] 44462- 0826 14 Jan, 2017 [place] [address] 29722- 5058 07 Jan, 2017 Other chronic pain G89.29 and Generalized anxiety disorder F41.[address] 76099- 8717 06 Jan, 2017 Cough R05 and Bronchitis J40 [facility] [address] [place] [address] 55002 -5914 Jan, Bronchitis J40 [place] [address] 69129- 7587 Dec, Vitamin D deficiency E55.[address] 98285- 3205 Dec, 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 85191- 0158 19 Dec, 2016 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 and Vitamin D deficiency E55.[address] 09469- 5462 10 Dec, 2016 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 ; Essential hypertension I10 ; Hyperlipidemia, unspecified hyperlipidemia type E78.5 ; Vitamin D deficiency E55.9 ; Gastroesophageal reflux disease, esophagitis presence not specified K21.9 ; 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 ; Other chronic pain G89.29 ; Encounter for immunization Z23 and Generalized anxiety disorder F41.[address] 67755- 2937 12 Nov, 2016 History of CVA with residual deficit I69.[address] 30620- 1559 11 Nov, 2016 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 [place] [address] [place] [address] 88388- 4420 06 Nov, 2016 Left otitis media with effusion H65.92 ; Bronchitis J40 and Canker sores oral K12.0 [place] [id number] [place] [address] 37764- 8251 Oct, [place] [address] 85564- 8212 Oct, 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 [place] [address] 49133- 3395 Oct, [place] [address] 13045- 4069 Sep, 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 [place] [id number] [place] [address] 02987- 3552 Sep, 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 ; Essential hypertension I10 ; Gastroesophageal reflux disease, esophagitis presence not specified K21.9 ; Hyperlipidemia, unspecified hyperlipidemia type E78.5 ; Tobacco abuse Z72.0 ; Vitamin D deficiency E55.9 ; History of CVA with residual deficit I69.30 and Seasonal allergic rhinitis due to pollen J30.1 [place] [id number] [place] [address] 66082- 2202 Sep, [place] [id number] [place] [address] 29304- 0662 Aug, [facility] [id number] [place] [address] 33154 -4347 Aug, Dysuria R30.0 ; Acute cystitis with hematuria N30.01 and Middle ear effusion, right H65.91 [place] [id number] [place] [address] 10436- 0104 Aug, Other complicated headache syndrome G44.59 [place] [id number] [place] [address] 53652- 8431 Aug, 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 [facility] [address], [place] [address]- 0560 14 Aug, 2016 Dysuria R30.0 [facility] [address] [place] [address] 33406- 9599 Aug, Dysuria R30.0 [facility] [address] [place] [address] 53749- 6007 Aug, [facility] [address] [place] [address] 80673- 4618 July, [facility] [id number] [place] [address] 15945- 1138 July, [facility] [id number] [place] [address] 70160- 1960 July, 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 [facility] [id number] [place] [address] 44743- 9734 July, Other complicated headache syndrome G44.59 [facility] [id number] [place] [address] 07426- 6811 July, [facility] [address] [place] [address] 59243 -1842 July, Dysuria R30.0 and Acute cystitis with hematuria N30.01 [facility] [address] [place] [address] 09414- 4954 July, [facility] [address] [place] [address] 06465- 4680 July, Other complicated headache syndrome G44.59 [facility] [address] [place] [address] 99856 -5814 Jun, Exposure to strep throat Z20.818 and Acute upper respiratory infection, unspecified J06.9 [facility] [address] [place] [address] 20089- 5484 Jun, [place] [id number] [place] [address] 71366- 9975 Jun, 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 and Gastroesophageal reflux disease, esophagitis presence not specified K21.9 [place] [id number] [place] [address] 84700- 3191 Jun, [place] [address] 67329- 7937 Jun, Dizziness R42 [facility] [address] 81862 -5177 Jun, [place] [address] 19181- 6535 Jun, [facility] [address] 93578 -9348 May, Seasonal allergic rhinitis, unspecified allergic rhinitis trigger J30.2 [place] [address] 90348- 2053 May, [place] [address] 86772- 3059 May, 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 [...] Seasonal allergic rhinitis due to pollen J30.1 [place] [id number] [place] [address] 21544- 2507 May, Gastroesophageal reflux disease, esophagitis presence not specified K21.9 [place] [address] 69187- 6331 May, [place] [address] [place] [address]- 1066 Apr, [facility] [address], [place] [address]- 7215 Apr, [facility] [address], [place] [address]- 3633 Mar, [facility] [address], [place] [address]- 5643 Mar, [facility] [address], [place] [address]- 3516 Mar, [facility] [address] [place] [address] 77874- 4273 Mar, [facility] [address], [place] [address]- 7438 Feb, [facility] [id number] [place] [address] 66201- 3650 Feb, [facility] [address], [place] [address]- 1339 Feb, [facility] [address] [place] [address] 70040- 8627 Feb, Major depressive disorder, recurrent episode, moderate F33.1 ; Generalized anxiety disorder F41.1 ; Essential hypertension I10 ; DM ( diabetes mellitus) 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 ; Hyperlipidemia, unspecified hyperlipidemia type E78.5 ; 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 and Gastroesophageal reflux disease, esophagitis presence not specified K21.9 [facility] [id number], [place] [address] Feb, Other viral agents as the cause of diseases classified elsewhere B97.89 and Acute upper respiratory infection, unspecified J06.9 [facility] [address], [place] [address]- 2869 Jan, [facility] [address], [place] [address]- 9435 Jan, [facility] [address], [place] [address] Jan, Acute bronchitis, unspecified organism J20.9 [facility] [id number] [place] [address] 51429- 5710 Jan, [facility] [id number] [place] [address] 06218- 8088 Jan, History of CVA with residual deficit I69.30 [facility] [id number] [place] [address] 05873- 2188 Jan, [facility] [id number] [place] [address] 56574- 0925 Jan, Acute bronchitis, unspecified organism J20.9 [facility] [id number] [place] [address] 02924- 9866 Jan, [facility] [id number] [place] [address] 05836- 0424 Dec, History of CVA with residual deficit I69.30 [facility] [id number] [place] [address] 96949- 2772 Dec, [facility] [id number] [place] [address] 76674- 7624 Dec, Other chronic pain G89.29 ; 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 and History of CVA with residual deficit I69.30 [facility] [address] [place] [address] 61543- 5209 Nov, Major depressive disorder, recurrent episode, moderate F33.1 ; Irregular heart rhythm I49.9 ; Essential hypertension I10 ; History of CVA with residual deficit I69.30 ; 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 ; Gastroesophageal reflux disease, esophagitis presence not specified K21.9 ; Hyperlipidemia, unspecified hyperlipidemia type E78.5 ; 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 ; Other chronic pain G89.29 and Generalized anxiety disorder F41.1 [facility] [address] [place] [address]- 1731 Oct, Generalized anxiety disorder F41.1 ; Major depressive disorder, recurrent episode, moderate F33.1 ; Essential hypertension I10 ; History of CVA with residual deficit I69.30 ; 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 ; Gastroesophageal reflux disease, esophagitis presence not specified K21.9 ; Hyperlipidemia, unspecified hyperlipidemia type E78.5 ; Other chronic pain G89.29 and Bacterial conjunctivitis of left eye H10.9 [place] [address] 28394- 3291 Sep, Chronic pain syndrome G89.4 and 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 88007- 6553 Sep, Irregular heart rhythm I49.9 ; Routine health maintenance Z00.00 ; Essential hypertension I10 ; History of CVA with residual deficit I69.30 ; Gastroesophageal reflux disease, esophagitis presence not specified K21.9 ; 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 ; Hyperlipidemia, unspecified hyperlipidemia type E78.5 and Other complicated headache syndrome G44.[address] 41307- 2014 Jun, [address] 06349- 0614 Jun, [place] [id number] [place] [address] 25868- 6647 Aug, [place] [id number] [place] [address] 40894- 4323 Jun, IMMUNIZATIONS No Known Immunizations SOCIAL HISTORY Never Assessed REASON FOR VISIT med request PLAN OF CARE VITAL SIGNS MEDICATIONS Medication Instructions Dosage Frequency Start Date End Date Duration Status Diflucan 150 MG Orally one time 1 tablet Oct, Oct, 1 dose Active RESULTS No Results PROCEDURES No Known procedures INSTRUCTIONS MEDICATIONS ADMINISTERED No Known Medications MEDICAL (GENERAL) HISTORY Type Description Date Medical History diabetes mellitus Medical History hyperlipidemia Medical History hypertension Medical History stroke Medical History Anxiety disorder Medical History Panic attacks Medical History Blood Clotting Disorder- Dr Galvan at [facility] Medical History Possible Anemia (currently under work up) - Dr Galvan [facility] Medical History irregular heart beat-sees dr. hassan Medical History history of pancreatitis Medical History gerd Medical History History of CVA with residual deficit Medical History Other complicated headache syndrome Medical History Tsokes syndrome Surgical History tubal ligation Surgical History section Surgical History cholecystectomy Surgical History Toe Nail Removal x2 Hospitalization History Brain Stem Strokes x5. Has been hospitalized at then transfered to [facility]. 2015 Hospitalization History Child Hospitalization History abd pain and shakiness - [facility] ED visit [facility] Hospitalization History [facility] ED for URI 04/16/17
--- OUTSIDE RECORDS SUMMARY | 2017-08-16 22:58 | XMS REPORT ---
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 Active 01079090 Problem Tobacco abuse Z72.0 Active 811997834 Problem Other chronic pain G89.29 Active 90798556 Problem Type 2 diabetes mellitus with hyperglycemia E11.65 Active 19326091 Problem long-term current use of insulin Z79.4 Active 704402266 Problem Seasonal allergic rhinitis due to pollen J30.1 Active 40156577 Problem Tobacco abuse counseling Z71.6 Active 893188657 Problem History of CVA with residual deficit I69.30 Active 774081592 Problem Simple chronic bronchitis J41.0 Active 98010798 Problem Major depressive disorder, recurrent episode, moderate F33.1 Active 306351266 Problem Elevated liver enzymes R74.8 Active 016969105 Problem Vitamin D deficiency E55.9 Active 30846216 Problem Hyperlipidemia, unspecified hyperlipidemia type E78.5 Active 06771835 Problem Gastroesophageal reflux disease, esophagitis presence not specified K21.9 Active 261260018 Problem Generalized anxiety disorder F41.1 Active 26125558 Problem Essential hypertension I10 Active 46875581 Problem 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 Active 140218797 Problem Irregular heart rhythm I49.9 Active 065673761 ALLERGIES No Information ENCOUNTERS Encounter Location Date Diagnosis [facility] [address] [facility] [id number] [address] July, [facility] [id number] [address] Jun, [facility] [id number] [address] Jun, [facility] [id number] [place] [address] 87015- 2619 Jun, Abnormal levels of other serum enzymes R74.8 [facility] [address] [place] [id number] [place] [address] 42648- 5609 Jun, Abnormal levels of other serum enzymes R74.8 [facility] [id number] [place] [address] 03416- 6657 Jun, Elevated liver enzymes R74.8 [facility] [id number] [place] [address] 91023- 6530 Jun, Elevated liver enzymes R74.8 [place] [id number] [place] [address] 17166- 0687 May, Right upper quadrant pain R10.11 ; Cervicalgia M54.2 and High risk medication use Z79.899 [place] [id number] [place] [address] 30278- 3727 May, Generalized anxiety disorder F41.1 and Other chronic pain G89.29 [facility] [id number] [place] [address] 41656- 4341 May, Canker sores oral K12.0 [place] [id number] [place] [address] 67037- 1543 May, Generalized anxiety disorder F41.1 and Other chronic pain G89.29 [place] [id number] [place] [address] 50770- 8889 May, [facility] [id number] [place] [address] 03581- 0934 Apr, [facility] [id number] [place] [address] 16248 -4665 Apr, Acute cystitis with hematuria N30.01 and Dysuria R30.0 [facility] [id number] [place] [address] 95760- 3762 Apr, [facility] [address] [place] [address] 40212- 6594 08 Apr, 2017 [facility] [address] 59845- 9485 08 Apr, 2017 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 [facility] [id number] [place] [address] 00335- 6486 06 Apr, 2017 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 [place] [id number] [place] [address] 16304- 0844 03 Apr, 2017 [place] [address] 67715- 7626 02 Apr, 2017 [facility] [id number] [place] [address] 16026- 7153 Apr, Other chronic pain G89.29 ; Generalized anxiety disorder F41.1 ; Cervicalgia M54.2 and Controlled substance agreement signed Z79.899 [facility] [id number] [place] [address] 45904 -0243 Mar, Abdominal pain R10.9 and Viral gastroenteritis A08.4 [facility] [id number] [place] [address] 40841- 8772 Mar, [facility] [id number] [place] [address] 15826- 5124 Mar, [facility] [id number] [place] [address] 84671- 1761 Mar, 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 ; Type 2 diabetes mellitus with hyperglycemia E11.65 ; long-term current use of insulin Z79.4 ; Essential hypertension I10 ; Bronchitis J40 ; Major depressive disorder , recurrent episode, moderate F33.1 ; Hyperlipidemia, unspecified hyperlipidemia type E78.5 ; Tobacco abuse Z72.0 ; Tobacco abuse counseling Z71.6 ; History of CVA with residual deficit I69.30 ; Gastroesophageal reflux disease, esophagitis presence not specified K21.9 and 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 [place] [id number] [place] [address] 11464- 2251 Mar, [place] [address] 05905- 8439 Mar, 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 ; Abnormal lung sounds R09.89 ; Bronchitis J40 and Hyperlipidemia, unspecified hyperlipidemia type E78.5 [facility] [place] [address] 04865 -5910 Mar, URI, acute J06.9 [place] [address] 18674- 6984 Mar, [place] [address] 21769- 1740 Mar, 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 [place] [address] 70357- 1035 Mar, Other chronic pain G89.29 and Generalized anxiety disorder F41.1 [place] [address] 45967- 1229 Feb, [place] [address] 49254- 2257 Feb, Mass of left lung R91.8 and Cervicalgia M54.2 [place] [address] 89708- 7332 Feb, [place] [id number] [place] [address] 03191- 9926 Feb, [facility] [place] [address] 34400 -2348 Feb, Cough R05 and Bronchitis J40 [facility] [place] [id number] [place] [address] 50938 -1214 07 Feb, 2017 Acute nasopharyngitis J00 and Bronchitis J40 [place] [id number] [place] [address] 14447- 6559 06 Feb, 2017 Other chronic pain G89.29 and Generalized anxiety disorder F41.1 [facility] [address] 86489- 2351 29 Jan, 2017 Encounter for immunization Z23 [facility] [id number] [place] [address] 33217 -8355 Jan, [facility] [address] 13017 -2565 Jan, [place] [address] 49086- 8003 16 Jan, 2017 Canker sores oral K12.0 [place] [address] 10534- 6978 14 Jan, 2017 [place] [address] 43679- 4442 07 Jan, 2017 Other chronic pain G89.29 and Generalized anxiety disorder F41.1 [place] [address] 76751- 5144 06 Jan, 2017 Cough R05 and Bronchitis J40 [facility] [place] [id number] [place] [address] 66524 -4325 Jan, Bronchitis J40 [place] [id number] [place] [address] 10331- 2053 Dec, Vitamin D deficiency E55.9 [place] [id number] [place] [address] 74621- 2068 Dec, 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 [place] [address] 84315- 2817 Dec, 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 and Vitamin D deficiency E55.9 [place] [id number] [place] [address] 58054- 5532 Dec, 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 ; Essential hypertension I10 ; Hyperlipidemia, unspecified hyperlipidemia type E78.5 ; Vitamin D deficiency E55.9 ; Gastroesophageal reflux disease, esophagitis presence not specified K21.9 ; 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 ; Other chronic pain G89.29 ; Encounter for immunization Z23 and Generalized anxiety disorder F41.1 [place] [address] 53727- 6165 12 Nov, 2016 History of CVA with residual deficit I69.30 [place] [address] 44106- 7966 11 Nov, 2016 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 97657- 4949 06 Nov, 2016 Left otitis media with effusion H65.92 ; Bronchitis J40 and Canker sores oral K12.[address] 46218- 8328 14 Oct, 2016 [place] [address] 48684- 0053 04 Oct, 2016 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 [place] [address] 28671- 0185 02 Oct, 2016 [place] [address] 23736- 2340 17 Sep, 2016 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 [place] [address] 48246- 5169 Sep, 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 ; Essential hypertension I10 ; Gastroesophageal reflux disease, esophagitis presence not specified K21.9 ; Hyperlipidemia, unspecified hyperlipidemia type E78.5 ; Tobacco abuse Z72.0 ; Vitamin D deficiency E55.9 ; History of CVA with residual deficit I69.30 and Seasonal allergic rhinitis due to pollen J30.[address] 43492- 1499 Sep, [facility] [address] [address] 1397 Aug, [facility] [id number] [place] [address] 23452 -8031 Aug, Dysuria R30.0 ; Acute cystitis with hematuria N30.01 and Middle ear effusion, right H65.91 [facility] [id number] [place] [address] 85814- 0702 Aug, Other complicated headache syndrome G44.59 [facility] [id number] [place] [address] 65204- 8166 Aug, 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 [facility] [id number] [place] [address] 04880- 2081 Aug, Dysuria R30.0 [facility] [id number] [place] [address] 70492- 5903 Aug, Dysuria R30.0 [facility] [id number] [place] [address] 83010- 6507 Aug, [facility] [id number] [place] [address] 89476- 3964 July, [facility] [address] [address]- 4181 July, [facility] [address] [place] [address] 16518- 0622 July, 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 [facility] [address] [address]- 3669 July, Other complicated headache syndrome G44.59 [facility] [address] [place] [address] 63324- 5295 July, [facility] [address] [address] July, Dysuria R30.0 and Acute cystitis with hematuria N30.01 [facility] [id number] [place] [address] 34430- 1245 July, [place] [address] 36285- 7978 July, Other complicated headache syndrome G44.59 [facility] [address] 75956 -7720 Jun, Exposure to strep throat Z20.818 and Acute upper respiratory infection, unspecified J06.9 [place] [id number] [place] [address] 98768- 4582 Jun, [place] [address] 47059- 6637 Jun, 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 and Gastroesophageal reflux disease, esophagitis presence not specified K21.9 [place] [address] 48701- 3297 Jun, [place] [address] [id number] [place] [address] 56894- 4138 Jun, Dizziness R42 [facility] [place] [id number] [id number] [place] [address] 68366 -4634 Jun, [place] [address] [id number] [place] [address] 97104- 3202 Jun, [facility] [id number] [place] [address] 49589 -0671 May, Seasonal allergic rhinitis, unspecified allergic rhinitis trigger J30.2 [place] [address] [id number] [place] [address] 37965- 9464 May, [place] [address] [id number] [place] [address] 86293- 6375 May, 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 [...] Seasonal allergic rhinitis due to pollen J30.1 [facility] [id number] [place] [address] 38076- 4251 16 May, 2016 Gastroesophageal reflux disease, esophagitis presence not specified K21.9 [facility] [id number] [place] [address] 24106- 9782 May, [facility] [id number] [place] [address] 80196- 5205 Apr, [facility] [address] [id number] [place] [address] 65641- 7617 Apr, [facility] [address] [place] [id number] [place] [address] 75493- 8068 Mar, [facility] [address] [id number] [place] [address] 13887- 7737 Mar, [facility] [address] [id number] [place] [address] 21272- 0423 Mar, [facility] [address] [id number] [place] [address] 61904- 4282 Mar, [facility] [id number] [place] [address] 98920- 2753 Feb, [facility] [address] [id number] [place] [address] 73053- 7862 Feb, [facility] [address] [id number] [place] [address] 54315131- 8396 Feb, [facility] [id number] [place] [address] 07077- 3929 Feb, Major depressive disorder, recurrent episode, moderate F33.1 ; Generalized anxiety disorder F41.1 ; Essential hypertension I10 ; DM ( diabetes mellitus) 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 ; Hyperlipidemia, unspecified hyperlipidemia type E78.5 ; 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 and Gastroesophageal reflux disease, esophagitis presence not specified K21.9 [facility] [id number] [place] [address] 15293 -4793 Feb, Other viral agents as the cause of diseases classified elsewhere B97.89 and Acute upper respiratory infection, unspecified J06.9 [place] [address] 39463- 3828 Jan, [place] [address] 56921- 1154 Jan, [facility] [address] 77959 -0247 Jan, Acute bronchitis, unspecified organism J20.9 [place] [address] 98140- 4031 Jan, [place] [address] 09342- 0712 Jan, History of CVA with residual deficit I69.30 [place] [address] 23837- 4525 Jan, [place] [address] 52790- 5003 Jan, Acute bronchitis, unspecified organism J20.9 [place] [address] 27328- 1384 Jan, [place] [address] 75248- 3237 Dec, History of CVA with residual deficit I69.30 [place] [address] 92087- 9532 Dec, [place] [address] 45525- 0876 Dec, Other chronic pain G89.29 ; 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 and History of CVA with residual deficit I69.30 [place] [address] [place] [address] 57427- 0918 Nov, Major depressive disorder, recurrent episode, moderate F33.1 ; Irregular heart rhythm I49.9 ; Essential hypertension I10 ; History of CVA with residual deficit I69.30 ; 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 ; Gastroesophageal reflux disease, esophagitis presence not specified K21.9 ; Hyperlipidemia, unspecified hyperlipidemia type E78.5 ; Sotkes syndrome G46.3 ; Other chronic pain G89.29 and Generalized anxiety disorder F41.1 [place] [address] 61518- 9035 Oct, Generalized anxiety disorder F41.1 ; Major depressive disorder, recurrent episode, moderate F33.1 ; Essential hypertension I10 ; History of CVA with residual deficit I69.30 ; 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 ; Gastroesophageal reflux disease, esophagitis presence not specified K21.9 ; Hyperlipidemia, unspecified hyperlipidemia type E78.5 ; Other chronic pain G89.29 and Bacterial conjunctivitis of left eye H10.9 [place] [address] [id number] [place] [address] 81060- 1019 Sep, Chronic pain syndrome G89.4 and 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 [place] [id number] [place] [address] 19322- 8387 Sep, Irregular heart rhythm I49.9 ; Routine health maintenance Z00.00 ; Essential hypertension I10 ; History of CVA with residual deficit I69.30 ; Gastroesophageal reflux disease, esophagitis presence not specified K21.9 ; 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 ; Hyperlipidemia, unspecified hyperlipidemia type E78.5 and Other complicated headache syndrome G44.59 [place] [address] [place] [id number] [place] [address] 15960- 5330 Jun, [place] [address] [place] [id number] [place] [address] 83247- 2166 Jun, [place] [address] [facility] [id number] [address]- 2852 Aug, [facility] [address] [facility] [id number] [place] [address]- 4761 Jun, IMMUNIZATIONS No Known Immunizations SOCIAL HISTORY Never Assessed REASON FOR VISIT Requests return call PLAN OF CARE VITAL SIGNS MEDICATIONS Medication Instructions Dosage Frequency Start Date End Date Duration Status Naproxen 500 mg Orally bid prn 1 tablet 90 days Active RESULTS No Results PROCEDURES No Known procedures INSTRUCTIONS MEDICATIONS ADMINISTERED No Known Medications MEDICAL (GENERAL) HISTORY Type Description Date Medical History diabetes mellitus Medical History hyperlipidemia Medical History hypertension Medical History stroke Medical History Anxiety disorder Medical History Panic attacks Medical History Blood Clotting Disorder- Dr Galvan at [facility] Medical History Possible Anemia (currently under work up) - Dr Galvan [facility] Medical History irregular heart beat-sees [...] Has been hospitalized at then transfered to [facility]. 2014 Hospitalization History Child Hospitalization History abd pain and shakiness - [facility] ED visit [facility] Hospitalization History [facility] ED for URI 04/16/17
--- OUTSIDE RECORDS SUMMARY | 2017-08-16 22:59 | XMS REPORT ---
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 Active 76819554 Problem Tobacco abuse Z72.0 Active 642663126 Problem Other chronic pain G89.29 Active 75798576 Problem Type 2 diabetes mellitus with hyperglycemia E11.65 Active 46403821 Problem penitentiary current use of insulin Z79.4 Active 297154788 Problem Seasonal allergic rhinitis due to pollen J30.1 Active 01177437 Problem Tobacco abuse counseling Z71.6 Active 746127603 Problem History of CVA with residual deficit I69.30 Active 099582242 Problem Simple chronic bronchitis J41.0 Active 02927510 Problem 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 Active 744714895 Problem Generalized anxiety disorder F41.1 Active 49210495 Problem Hyperlipidemia, unspecified hyperlipidemia type E78.5 Active 27436801 Problem Gastroesophageal reflux disease, esophagitis presence not specified K21.9 Active 123581764 Problem Vitamin D deficiency E55.9 Active 68292613 Problem Essential hypertension I10 Active 92058235 Problem Major depressive disorder, recurrent episode, moderate F33.1 Active 435230482 Problem Irregular heart rhythm I49.9 Active 160015152 ALLERGIES No Information ENCOUNTERS Encounter Location Date Diagnosis [facility] [id number] [address] May, Canker sores oral K12.0 [facility] [id number] [place] [address] 88737- 4038 May, Generalized anxiety disorder F41.1 and Other chronic pain G89.29 [facility] [id number] [place] [address] 92311- 5331 May, [facility] [id number] [place] [address] 49427- 7352 Apr, [facility] [id number] [place] [address] 37604 -6454 Apr, Acute cystitis with hematuria N30.01 and Dysuria R30.0 [facility] [address] 53784- 2696 Apr, [facility] [id number] [place] [address] 07411- 8619 Apr, [facility] [address] 85480- 3265 Apr, 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 [place] [id number] [place] [address] 98635- 7025 06 Apr, 2017 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 [facility] [id number] [place] [address] 41991- 5639 Apr, [facility] [id number] [place] [address] 20632- 3589 Apr, [facility] [id number] [place] [address] 52572- 4167 Apr, Other chronic pain G89.29 ; Generalized anxiety disorder F41.1 ; Cervicalgia M54.2 and Controlled substance agreement signed Z79.899 [facility] [id number] [place] [address] 46324 -3979 Mar, Abdominal pain R10.9 and Viral gastroenteritis A08.4 [facility] [id number] [place] [address] 58625- 9317 Mar, [facility] [id number] [place] [address] 24071- 5469 Mar, [facility] [id number] [place] [address] 21721- 8519 Mar, 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 ; Type 2 diabetes mellitus with hyperglycemia E11.65 ; 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.4 ; Essential hypertension I10 ; Bronchitis J40 ; Major depressive disorder , recurrent episode, moderate F33.1 ; Hyperlipidemia, unspecified hyperlipidemia type E78.5 ; Tobacco abuse Z72.0 ; Tobacco abuse counseling Z71.6 ; History of CVA with residual deficit I69.30 ; Gastroesophageal reflux disease, esophagitis presence not specified K21.9 and 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 [place] [address] 23763- 1759 Mar, [place] [address] 31520- 1185 Mar, 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 ; Abnormal lung sounds R09.89 ; Bronchitis J40 and Hyperlipidemia, unspecified hyperlipidemia type E78.5 [facility] [address] 66612 -1479 Mar, URI, acute J06.9 [place] [address] 25607- 2012 Mar, [place] [address] 02065- 9033 Mar, 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 [place] [address] 16761- 7997 Mar, Other chronic pain G89.29 and Generalized anxiety disorder F41.1 [place] [address] 43356- [address] Feb, [address] [address]- 1898 Feb, Mass of left lung R91.8 and Cervicalgia M54.2 [place] [address] 46758- 6907 Feb, [facility] [id number] [place] [address] 52015- 6173 Feb, [facility] [address] 15917 -3267 Feb, Cough R05 and Bronchitis J40 [facility] [address] 57954 -1026 Feb, Acute nasopharyngitis J00 and Bronchitis J40 [facility] [address] 94250- 7299 Feb, Other chronic pain G89.29 and Generalized anxiety disorder F41.1 [facility] [address] 62000- 8946 Jan, Encounter for immunization Z23 [facility] [address] 07436 -1378 Jan, [facility] [address] 58842 -6807 18 Jan, 2017 [facility] [address] 08984- 2707 16 Jan, 2017 Canker sores oral K12.0 [facility] [address] 97100- 4321 14 Jan, 2017 [facility] [address] 16331- 2362 07 Jan, 2017 Other chronic pain G89.29 and Generalized anxiety disorder F41.1 [facility] [id number] [place] [address] 85214- 0455 06 Jan, 2017 Cough R05 and Bronchitis J40 [facility] [address] 76680 -0585 Jan, Bronchitis J40 [facility] [id number] [place] [address] 23049- 1931 Dec, Vitamin D deficiency E55.9 [place] [id number] [place] [address] 55810- 9415 19 Dec, 2016 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 [place] [id number] [place] [address] 40496- 8687 19 Dec, 2016 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 and Vitamin D deficiency E55.9 [place] [address] 14128- 0124 10 Dec, 2016 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 ; Essential hypertension I10 ; Hyperlipidemia, unspecified hyperlipidemia type E78.5 ; Vitamin D deficiency E55.9 ; Gastroesophageal reflux disease, esophagitis presence not specified K21.9 ; 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 ; Other chronic pain G89.29 ; Encounter for immunization Z23 and Generalized anxiety disorder F41.[address] 02087- 1456 12 Nov, 2016 History of CVA with residual deficit I69.[address] 38176- 3666 11 Nov, 2016 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 [place] [id number] [place] [address] 49806- 9944 06 Nov, 2016 Left otitis media with effusion H65.92 ; Bronchitis J40 and Canker sores oral K12.0 [id number] [place] [address] 98238- 8166 14 Oct, 2016 [id number] [place] [address] 89811- 8865 04 Oct, 2016 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 [place] [address] 08117- 5087 Oct, [place] [id number] [place] [address] 31855- 6792 Sep, 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 [place] [address] [place] [address] 8703 11 Sep, 2016 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 ; Essential hypertension I10 ; Gastroesophageal reflux disease, esophagitis presence not specified K21.9 ; Hyperlipidemia, unspecified hyperlipidemia type E78.5 ; Tobacco abuse Z72.0 ; Vitamin D deficiency E55.9 ; History of CVA with residual deficit I69.30 and Seasonal allergic rhinitis due to pollen J30.1 [facility] [address] 76778- 4959 Sep, [place] [address] 71641- 6429 Aug, [facility] [id number] [place] [address] 61239 -8487 Aug, Dysuria R30.0 ; Acute cystitis with hematuria N30.01 and Middle ear effusion, right H65.91 [place] [id number] [place] [address] 13869- 6248 Aug, Other complicated headache syndrome G44.59 [place] [id number] [place] [address] 50025- 5179 19 Aug, 2016 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 [place] [id number] [place] [address] 85172- 3726 14 Aug, 2016 Dysuria R30.0 [place] [id number] [place] [address] 86676- 5982 Aug, Dysuria R30.0 [place] [id number] [place] [address] 19558- 9610 Aug, [place] [id number] [place] [address] 43772- 8404 July, [place] [id number] [place] [address] 09060- 9834 July, [place] [id number] [place] [address] 61866- 9634 July, 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 [facility] [id number] [place] [address] 49674- 0354 July, Other complicated headache syndrome G44.59 [facility] [id number] [place] [address] 54000- 2175 July, [facility] [id number] [place] [address] 14359 -6365 July, Dysuria R30.0 and Acute cystitis with hematuria N30.01 [facility] [id number] [place] [address] 25704- 7589 July, [facility] [id number] [place] [address] 82299- 6673 July, Other complicated headache syndrome G44.59 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 [id number] [place] [address] 39632 -7633 Jun, [facility] [id number] [place] [address] 40018- 6401 Jun, [facility] [id number] [place] [address] 52681 -6704 May, Seasonal allergic rhinitis, unspecified allergic rhinitis trigger J30.2 [facility] [id number] [place] [address] 62337- 9114 May, [facility] [id number] [place] [address] 19566- 6921 May, 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 [...] Seasonal allergic rhinitis due to pollen J30.1 [facility] [id number] [place] [address] 47247- 7244 May, Gastroesophageal reflux disease, esophagitis presence not specified K21.9 [facility] [id number] [place] [address] 68140- 1751 May, [facility] [id number] [place] [address] 03262- 3385 Apr, [facility] [id number] [place] [address] 29441- 6673 Apr, [facility] [id number] [place] [address] 90757- 4144 Mar, [facility] [id number] [place] [address] 26233- 4096 Mar, [facility] [id number] [place] [address] 80152- 5644 Mar, [facility] [id number] [place] [address] 19385- 5092 Mar, [facility] [id number] [place] [address] 34677- 8709 Feb, [facility] [id number] [place] [address] 68168- 5716 Feb, [place] [address] 02763- 8565 Feb, [place] [id number] [place] [address] 37405- 6598 Feb, Major depressive disorder, recurrent episode, moderate F33.1 ; Generalized anxiety disorder F41.1 ; Essential hypertension I10 ; DM ( diabetes mellitus) with complications E11.8 ; Hyperlipidemia, unspecified hyperlipidemia type E78.5 ; 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 and Gastroesophageal reflux disease, esophagitis presence not specified K21.9 [facility] [id number] [place] [address] 89515 -4240 Feb, Other viral agents as the cause of diseases classified elsewhere B97.89 and Acute upper respiratory infection, unspecified J06.9 [place] [address] 43279- 1626 Jan, [place] [address] 31052- 5424 Jan, [facility] [place] [id number] [place] [address] 91417 -5361 Jan, Acute bronchitis, unspecified organism J20.9 [place] [id number] [place] [address] 37187- 0696 Jan, [place] [id number] [place] [address] 57462- 7401 Jan, History of CVA with residual deficit I69.30 [place] [address] 81033- 0472 Jan, [place] [id number] [place] [address] 85827- 9109 Jan, Acute bronchitis, unspecified organism J20.9 [place] [address] 50526- 1180 Jan, [place] [id number] [address]- 3648 Dec, History of CVA with residual deficit I69.30 [place] [address] [place] [address] 27801- 3459 Dec, [place] [address] [place] [address] 04734- 0769 Dec, Other chronic pain G89.29 ; 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 and History of CVA with residual deficit I69.30 [place] [address] [place] [address] 75194- 1458 Nov, Major depressive disorder, recurrent episode, moderate F33.1 ; Irregular heart rhythm I49.9 ; Essential hypertension I10 ; History of CVA with residual deficit I69.30 ; 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 ; Gastroesophageal reflux disease, esophagitis presence not specified K21.9 ; Hyperlipidemia, unspecified hyperlipidemia type E78.5 ; 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 ; Other chronic pain G89.29 and Generalized anxiety disorder F41.1 [place] [address] [place] [address] 18138- 9314 Oct, Generalized anxiety disorder F41.1 ; Major depressive disorder, recurrent episode, moderate F33.1 ; Essential hypertension I10 ; History of CVA with residual deficit I69.30 ; 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 ; Gastroesophageal reflux disease, esophagitis presence not specified K21.9 ; Hyperlipidemia, unspecified hyperlipidemia type E78.5 ; Other chronic pain G89.29 and Bacterial conjunctivitis of left eye H10.9 [place] [address] [place] [address] 10528- 9933 Sep, Chronic pain syndrome G89.4 and 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 [place] [address] [place] [address] 69530- 1818 Sep, Irregular heart rhythm I49.9 ; Routine health maintenance Z00.00 ; Essential hypertension I10 ; History of CVA with residual deficit I69.30 ; Gastroesophageal reflux disease, esophagitis presence not specified K21.9 ; 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 ; Hyperlipidemia, unspecified hyperlipidemia type E78.5 and Other complicated headache syndrome G44.59 [facility] [id number] [address]- 3968 Jun, [place] [address], [place] [address]- 1060 Jun, [place] [address] [address]- 8366 Aug, [place] [address] [address]- 3623 Jun, IMMUNIZATIONS No Known Immunizations SOCIAL HISTORY Never Assessed REASON FOR VISIT Medication refill request PLAN OF CARE VITAL SIGNS MEDICATIONS Medication Instructions Dosage Frequency Start Date End Date Duration Status Fenofibrate 54 MG Orally Once a day 1 tablet with a meal 24h Feb, 90 days Active RESULTS No Results PROCEDURES No Known procedures INSTRUCTIONS MEDICATIONS ADMINISTERED No Known Medications MEDICAL (GENERAL) HISTORY Type Description Date Medical History diabetes mellitus Medical History hyperlipidemia Medical History hypertension Medical History stroke Medical History Anxiety disorder Medical History Panic attacks Medical History Blood Clotting Disorder- Dr Galvan at [facility] Medical History Possible Anemia (currently under work up) - Dr Galvan [facility] Medical History irregular heart beat-sees dr. hassan Medical History history of pancreatitis Medical History gerd Medical History History of CVA with residual deficit Medical History Other complicated headache syndrome Medical History Stokes syndrome Surgical History tubal ligation Surgical History section Surgical History cholecystectomy Surgical History Toe Nail Removal x2 Hospitalization History Brain Stem Strokes x5. Has been hospitalized at then transfered to [facility] 2014 Hospitalization History Child Hospitalization History abd pain and shakiness - [facility] ED visit [facility] Hospitalization History [facility] ED for URI 04/16/17
--- OUTSIDE RECORDS SUMMARY | 2017-08-16 23:02 | XMS REPORT | Continuity of Care Document ---
Author Author [facility] Organization [facility] Address Unknown Phone Unavailable Allergies Active Description Code Type Severity Reaction Onset Reported/Identified Relationship to Patient Clinical Status Yes Erythromycin Base [id number] Drug Allergy Mild N/A 11/11/2008 Yes codeine [id number] Drug Allergy Unknown N/A 11/14/2008 Yes Penicillins [id number] Drug Allergy Unknown N/A 11/14/2008 Medications There [...] AMELIA WRIGHT, PASTOR Blank Ot 794.09 ABN CLERICAL ASSISTANT FUNCT STUDY NEC 09/01/2012 PASTOR CISNEROS MD [...] E Ot 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 09/28/2013 SLIVIA MARTINEZ MD E Ot 535.50 UNSP GASTRITIS [...] PASTOR J Ot 794.09 05/11/2014 AMELIA WRIGHT, [facility] Ot 783.1 05/11/2014 AMELIA WRIGHT, [facility] Ot 787.3 05/11/2014 AMELIA WRIGHT, PASTOR J Ot 789.09 05/11/2014 AMELIA WRIGHT, [facility] Ot 789.1 05/11/2014 AMELIA WRIGHT, [facility] Ot 723.1 05/11/2014 AMELIA WRIGHT, PASTOR J Ot 729.5 05/11/2014 AMELIA WRIGHT, PASTOR J Ot 719.40 05/11/2014 AMELIA WRIGHT, PASTOR J Ot 780.79 05/11/2014 AMELIA WRIGHT, [facility] Ot 782.3 05/11/2014 AMELIA WRIGHT, PASTOR [...] PASTOR J Ot 794.09 05/15/2014 AMELIA WRIGHT, [facility] Ot 783.1 05/15/2014 AMELIA WRIGHT, [facility] Ot 787.3 05/15/2014 AMELIA WRIGHT, [facility] Ot 789.09 05/15/2014 AMELIA WRIGHT, PASTOR J Ot 789.1 05/15/2014 AMELIA WRIGHT, PASTOR J Ot 723.1 05/15/2014 AMELIA WRIGHT, [facility] Ot 729.5 05/15/2014 AMELIA WRIGHT, PASTOR J Ot 719.40 05/15/2014 AMELIA WRIGHT, PASTOR J Ot 780.79 05/15/2014 AMELIA WRIGHT, [facility] Ot 782.3 05/15/2014 AMELIA WRIGHT, PASTOR J Ot 785.0 05/15/2014 AMELIA WRIGHT, PASTOR J Ot 719.40 05/15/2014 AMELIA WRIGHT, [facility] Ot 780.79 05/15/2014 AMELIA WRIGHT, PASTOR [...] PASTOR J Ot 780.97 05/15/2014 AMELIA WRIGHT, [facility] Ot 781.99 05/15/2014 AMELIA WRIGHT, PASTOR Abhay Ot 530.81 05/15/2014 AMELIA WRIGHT, PASTOR Abhay Ot 553.3 05/15/2014 AMELIA WRIGHT, PASTOR Abhay Ot 787.20 05/15/2014 JASON WRIGHT, [facility] Ot 288.60 05/15/2014 AMELIA WRIGHT, [facility] Ot 530.81 05/15/2014 AMELIA WRIGHT, PASTOR Abhay Ot 553.3 05/15/2014 AMELIA WRIGHT, PASTOR Abhay Ot 787.20 05/15/2014 AMELIA WRIGHT, [facility] Ot 348.89 05/15/2014 AMELIA WRIGHT, [facility] Ot 780.97 05/15/2014 AMELIA WRIGHT, PASTOR [...] PASTOR J Ot 787.20 05/15/2014 JASON WRIGHT, [facility] Ot 288.60 05/17/2014 AMELIA WRIGHT, PASTOR J Ot 348.89 05/17/2014 AMELIA WRIGHT, PASTOR J Ot 780.97 05/17/2014 AMELIA WRIGHT, PASTOR J Ot 781.99 05/17/2014 AMELIA WRIGHT, PASTOR J Ot 348.89 05/17/2014 AMELIA WIRGHT, PASTOR J Ot 780.97 05/17/2014 AMELIA WRIGHT, [...] WRIGHT, JAYASEELAN Ot 786.50 08/26/2014 AMELIA WRIGHT, [facility] Ot 251.2 08/26/2014 AMELIA WRIGHT, [facility] Ot 790.29 08/26/2014 AMELIA WRIGHT, [facility] Ot 780.39 08/26/2014 AMELIA WRIGHT, PASTOR J Ot 348.89 08/26/2014 AMELIA WRIGHT, [facility] Ot 780.97 08/26/2014 AMELIA WRIGHT, [facility] Ot 781.99 08/26/2014 AMELIA WRIGHT, PASTOR J Ot 530.81 08/26/2014 AMELIA WRIGHT, BEATRICE J Ot 553.3 08/26/2014 AMELIA WRIGHT, BEATRICE J Ot 787.20 08/26/2014 JASON WRIGHT, GILBERT [...] K Ot V58.69 08/26/2014 [facility] Ot 401.9 08/26/2014 GERRY [...] 01/15/2015 YUKO GARRETT MD Ot 785.0 01/15/2015 YKUO GARRETT MD Ot 785.1 01/15/2015 YUKO GARRETT [...] PASTOR Blank Ot 443.9 02/17/2015 AMELIA WRIGHT, PASOTR Blank Ot V12.54 02/25/2015 AMELIA WRIGHT, PASTOR [...] SKIN 03/29/2015 JOSE ADLER DO Ot Z79.82 MCC (CURRENT) USE OF ASPIRIN 03/29/2015 JOSE ADLER DO Ot Z79.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 03/29/2015 JOSE ADLER DO [...] GIDDINESS 05/22/2015 THELMA FARAH APRN Ot 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 05/22/2015 THELMA FARAH GRAPHIC SPECIALIST Ot 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 05/24/2015 RONAN SOTO MD A Ot E11.9 TYPE 2 DIABETES MELLITUS WITHOUT COMPLIC 05/24/2015 RONAN SOTO MD A Ot F17.210 NICOTINE DEPENDENCE, CIGARETTES, UNCOMPL 05/24/2015 RONAN SOTO MD A Ot R20.2 PARESTHESIA OF SKIN 05/24/2015 RONAN SOTO MD A Ot 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 05/24/2015 RONAN SOTO MD A Ot Z79.899 OTHER MCC (CURRENT) DRUG THERAPY 06/04/2015 RONAN SOTO MD A Ot E11.9 06/04/2015 RONAN SOTO MD Ot F17.210 06/04/2015 RONAN SOTO MD Ot R20.2 06/04/2015 RNOAN SOTO MD A Ot Z79.82 06/04/2015 RONAN [...] HYPERTENSION 07/25/2015 GILBERT GOMEZ MD Ot 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 07/25/2015 GILBERT GOMEZ MD Ot 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 08/01/2015 GILBERT GOMEZ MD Ot 238.71 08/01/2015 GILBERT GOMEZ MD Ot 272.4 08/01/2015 GILBERT GOMEZ MD Ot 288.60 08/01/2015 GILBERT GOMEZ MD Ot 401.9 08/01/2015 GILBERT GOMEZ MD Ot 438.83 08/01/2015 GILBERT GOMEZ MD Ot 438.89 08/01/2015 GILBERT GOMEZ MD Ot 728.87 08/01/2015 GILBERT GOMEZ MD Ot 785.0 08/01/2015 GLIBERT GOMEZ MD Ot V58.69 08/06/2015 GILBERT GOMEZ [...] HYPERTENSION 08/06/2015 GILBERT GOMEZ MD Ot Z79.02 MCC (CURRENT) USE OF ANTITHROMBOTI 08/06/2015 GILBERT GOMEZ MD, Ot Z79.82 MCC (CURRENT) USE OF ASPIRIN 09/03/2015 GILBERT GMOEZ MD, Ot 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) THROMBOCYTHEMIA 09/03/2015 [...] 09/03/2015 GILBERT GOMEZ MD Ot Z79.899 OTHER MCC (CURRENT) DRUG THERAPY 09/10/2015 AKBAR EVANS MD, [...] 780.39 OTHER CONVULSIONS 09/10/2015 Ot 794.09 ABN CLERICAL ASSISTANT FUNCT STUDY NEC 09/10/2015 Ot 794.8 ABN LIVER FUNCTION STUDY 09/10/2015 Ot 368.9 VISUAL DISTURBANCE NOS 09/10/2015 Ot 780.2 SYNCOPE AND COLLAPSE 09/10/2015 Ot 780.79 OTH MALAISE FATIGUE 09/10/2015 Ot 786.2 COUGH 09/10/2015 Ot 786.50 CHEST PAIN NOS 09/10/2015 AMELIA WRIGHT, PASTOR Blank Ot 794.09 ABN CLERICAL ASSISTANT FUNCT STUDY NEC 09/10/2015 AMELIA WRIGHT, PASTOR [...] 09/10/2015 GILBERT GOMEZ MD Ot Z79.899 OTHER MCC (CURRENT) DRUG THERAPY 09/10/2015 YUKO GARRETT MD Ot I10 ESSENTIAL (PRIMARY) HYPERTENSION 09/10/2015 YUKO GARRETT MD Ot R00.2 PALPITATIONS 09/10/2015 YUKO GARRETT MD Ot R06.02 SHORTNESS OF BREATH 09/10/2015 YUKO GARRETT MD Ot R07.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.4 MCC (CURRENT) USE OF INSULIN 09/10/2015 PASTOR CISNEROS [...] HYPERTENSION 09/10/2015 GILBERT GOMEZ MD Ot Z79.02 MCC (CURRENT) USE OF ANTITHROMBOTI 09/10/2015 GILBERT GOMEZ MD, Ot Z79.82 MCC (CURRENT) USE OF ASPIRIN 09/10/2015 AKBAR EVANS MD Ot D72.829 ELEVATED WHITE BLOOD CELL COUNT, UNSPECI 09/10/2015 AKBAR EVASN MD Ot F17.210 NICOTINE DEPENDENCE, CIGARETTES, UNCOMPL [...] GOMEZ MD Ot R00.0 TACHYCARDIA, UNSPECIFIED 10/02/2015 GILBETR GOMEZ MD Ot Z79.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 10/05/2015 JOSE ADLER DO [...] 10/29/2015 GILBERT GOMEZ MD Ot Z79.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 10/30/2015 GILBERT GOMEZ MD [...] 10/30/2015 GILBERT GOMEZ MD Ot Z79.899 OTHER MCC (CURRENT) DRUG THERAPY 11/04/2015 GILBERT GOMEZ MD [...] 11/04/2015 GILBERT GOMEZ MD Ot Z79.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 12/11/2015 GILBERT GOMEZ MD, [...] 12/11/2015 GILBERT GOMEZ MD Ot Z79.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 12/19/2015 GILBERT GOMEZ MD [...] 12/19/2015 GILBERT GOMEZ MD Ot Z79.899 OTHER MCC (CURRENT) DRUG THERAPY 01/02/2016 GILBERT GOMEZ MD [...] 01/02/2016 GILBERT GOMEZ MD Ot 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.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 03/17/2016 GILBERT GOMEZ MD [...] 03/17/2016 GILBERT GOMEZ MD Ot Z79.899 OTHER MCC (CURRENT) DRUG THERAPY 03/23/2016 Ot 272.4 HYPERLIPIDEMIA [...] 780.39 OTHER CONVULSIONS 03/23/2016 Ot 794.09 ABN CLERICAL ASSISTANT FUNCT STUDY NEC 03/23/2016 Ot 794.8 ABN LIVER FUNCTION STUDY 03/23/2016 Ot 368.9 VISUAL DISTURBANCE NOS 03/23/2016 Ot 780.2 SYNCOPE AND COLLAPSE 03/23/2016 Ot 780.79 OTH MALAISE FATIGUE 03/23/2016 Ot 786.2 COUGH 03/23/2016 Ot 786.50 CHEST PAIN NOS 03/23/2016 AMELIA WRIGHT, PASTOR Blank Ot 794.09 ABN CLERICAL ASSISTANT FUNCT STUDY NEC 03/23/2016 PASTOR CISNEROS MD [...] COMPLIC 03/23/2016 PASTOR CISNEROS MD Ot Z79.4 MAR[employer]MALLOW 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 (CURRENT) USE OF INSULIN 03/23/2016 PASTOR CISNEROS [...] HYPERTENSION 03/23/2016 GILBERT GOMEZ MD Ot Z79.02 MCC (CURRENT) USE OF ANTITHROMBOTI 03/23/2016 GILBERT GOMEZ MD Ot 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 03/23/2016 GILBERT GOMEZ [...] 03/23/2016 GILBERT GOMEZ MD Ot Z79.899 OTHER MCC (CURRENT) DRUG THERAPY 06/15/2016 GILBERT GOMEZ MD, [...] JASON WRIGHT GILBERT Esqueda Ot Z79.899 OTHER MCC (CURRENT) DRUG THERAPY 06/30/2016 Ot 530.81 ESOPHAGEAL [...] 780.39 OTHER CONVULSIONS 06/30/2016 Ot 794.09 ABN CLERICAL ASSISTANT FUNCT STUDY NEC 06/30/2016 Ot 794.8 ABN LIVER FUNCTION STUDY 06/30/2016 Ot 368.9 VISUAL DISTURBANCE NOS 06/30/2016 Ot 780.2 SYNCOPE AND COLLAPSE 06/30/2016 Ot 780.79 OTH MALAISE FATIGUE 06/30/2016 Ot 786.2 COUGH 06/30/2016 Ot 786.50 CHEST PAIN NOS 06/30/2016 AMELIA WRIGHT, PASTOR Blank Ot 794.09 ABN CLERICAL ASSISTANT FUNCT STUDY NEC 06/30/2016 AMELIA WRIGHT, PASTOR [...] VERTEBRAL ARTERY OCCLUSION W CEREBRAL IN 06/30/2016 AJCOB NEWSOME MD Ot 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 06/30/2016 [...] COMPLIC 06/30/2016 PASTOR CISNEROS MD Ot Z79.4 MCC (CURRENT) USE OF INSULIN 06/30/2016 PASTOR CISNEROS [...] HYPERTENSION 06/30/2016 GILBERT GOMEZ MD Ot Z79.02 MCC (CURRENT) USE OF ANTITHROMBOTI 06/30/2016 GILBERT GOMEZ MD Ot 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2 SYNCOPE AND COLLAPSE 06/30/2016 Ot 780.79 OTH MALAISE FATIGUE 06/30/2016 Ot 786.2 COUGH 06/30/2016 Ot 786.50 CHEST PAIN NOS 06/30/2016 AMELIA WRIGHT, PASTOR Blank Ot 794.09 ABN CLERICAL ASSISTANT FUNCT STUDY NEC 06/30/2016 AMELIA WRIGHT, PASTOR [...] COMPLIC 06/30/2016 PASTOR CISNEROS MD Ot Z79.4 MCC (CURRENT) USE OF INSULIN 06/30/2016 PASTOR CISNEROS [...] HYPERTENSION 06/30/2016 GILBERT GOMEZ MD, Ot 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 06/30/2016 GILBERT GOMEZ MD, Ot Z79.82 MCC (CURRENT) USE OF ASPIRIN 06/30/2016 GILBERT GOMEZ [...] 06/30/2016 GILBERT GOMEZ MD Ot Z79.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 07/09/2016 GILBERT GOMEZ MD, [...] 07/09/2016 GILBERT GOMEZ MD Ot Z79.899 OTHER MCC (CURRENT) DRUG THERAPY 08/02/2016 GILBERT GOMEZ MD [...] GROSS HEMATURIA 08/16/2016 PRISCILLA HUNT Ot Z79.02 MCC (CURRENT) USE OF ANTITHROMBOTI 08/16/2016 PRISCILLA HUNT Ot 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 08/16/2016 PRISCILLA HUNT Ot Z79.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 08/19/2016 PIRSCILLA HUNT Ot E11.9 TYPE 2 DIABETES MELLITUS WITHOUT COMPLIC 08/19/2016 PRISCILLA HUNT Ot F17.210 NICOTINE DEPENDENCE, CIGARETTES, UNCOMPL 08/19/2016 PRISCILLA HUNT L Ot I10 ESSENTIAL (PRIMARY) HYPERTENSION 08/19/2016 PRISCILLA HUNT Ot N30.01 ACUTE CYSTITIS WITH HEMATURIA 08/19/2016 PRISCILLA HUNT Ot R31.0 GROSS HEMATURIA 08/19/2016 PRISCILLA HUNT Ot 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 08/19/2016 PRISCILLA HUNT Ot 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 08/19/2016 PRISCILLA HUNT L Ot Z79.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 09/03/2016 GILBERT GOMEZ MD [...] 09/12/2016 GILBERT GOMEZ MD Ot Z79.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 11/09/2016 AKBAR EVANS MD [...] GIDDINESS 11/09/2016 AKBAR EVANS MD, Ot Z79.82 MCC (CURRENT) USE OF ASPIRIN 11/09/2016 AKBAR EVANS [...] GIDDINESS 11/11/2016 AKBAR EVANS MD, Ot 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 11/11/2016 AKBAR EVANS [...] 12/02/2016 IGOR ARANA MD Ot Z79.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 12/21/2016 IGOR ARANA MD Ot 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) THROMBOCYTHEMIA 12/21/2016 IGRO ARANA MD, Ot D72.829 ELEVATED WHITE BLOOD [...] 12/21/2016 IGOR ARANA MD Ot Z79.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 02/11/2017 IGOR ARANA MD, [...] 02/11/2017 IGOR ARANA MD, Ot Z79.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 03/12/2017 PRISCILLA HUNT Ot [...] ABD REGION 03/12/2017 PRISCILLA HUNT Ot Z79.82 MCC (CURRENT) USE OF ASPIRIN 03/12/2017 PRISCILLA HUNT [...] 03/20/2017 IGOR ARANA MD, Ot Z79.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 03/24/2017 PRISCILLA HUNT Ot [...] K21.9 GASTRO-ESOPHAGEAL REFLUX DISEASE WITHOUT 03/24/2017 PRISCILLA HUNT Ot R42 DIZZINESS AND GIDDINESS 03/24/2017 PRISCILLA HUNT Ot R93.5 ABN FINDINGS ON DX IMAGING OF ABD REGION 03/24/2017 PRISCILLA HUNT Ot Z79.82 MCC (CURRENT) USE OF ASPIRIN 03/24/2017 PRISCILLA HUNT [...] HUNT Ot Z98.51 TUBAL LIGATION STATUS 04/05/2017 IMRELLA MCMILLAN APRN Ot J43.8 OTHER EMPHYSEMA 04/05/2017 [...] Ot I10 ESSENTIAL (PRIMARY) HYPERTENSION 04/09/2017 AKBAR EVANS MD Ot K21.9 GASTRO-ESOPHAGEAL REFLUX DISEASE WITHOUT 04/09/2017 AKBAR EVANS MD Ot M19.90 UNSPECIFIED OSTEOARTHRITIS, UNSPECIFIED 04/09/2017 AKBAR EVANS MD Ot R42 DIZZINESS AND GIDDINESS 04/09/2017 AKBAR EVANS MD Ot Z79.82 MCC (CURRENT) USE OF ASPIRIN 04/09/2017 AKBAR EVANS MD Ot Z80.0 FAMILY HISTORY OF MALIGNANT NEOPLASM OF 04/09/2017 AKBAR EVANS MD Ot Z82.49 FAMILY HX OF ISCHEM HEART DIS AND OTH DI 04/09/2017 AKBAR EVANS MD Ot Z86.73 PRSNL HX OF TIA (TIA), AND CEREB INFRC W 04/09/2017 AKBAR EVANS MD, Ot Z87.19 PERSONAL HISTORY OF OTHER DISEASES OF TH 04/09/2017 AKBAR EVANS MD Ot Z87.448 PERSONAL HISTORY OF OTHER DISEASES OF UR 04/09/2017 AKBAR EVANS MD Ot Z87.59 PERSONAL HISTORY OF COMP OF PREG, CHLDBR 04/09/2017 AKBAR EVANS MD, Ot Z98.51 TUBAL LIGATION STATUS 04/17/2017 GWEN RAMOS MD Ot E11.9 TYPE 2 DIABETES MELLITUS WITHOUT COMPLIC 04/17/2017 GWEN RAMOS MD Ot F17.210 NICOTINE DEPENDENCE, CIGARETTES, UNCOMPL 04/17/2017 GWEN RAMOS MD Ot F41.9 ANXIETY DISORDER, UNSPECIFIED 04/17/2017 GWEN RAMOS MD Ot G43.909 MIGRAINE, UNSP, NOT INTRACTABLE, WITHOUT 04/17/2017 GWEN RAMOS MD Ot I10 ESSENTIAL (PRIMARY) HYPERTENSION 04/17/2017 GWEN RAMOS MD Ot J06.9 ACUTE UPPER RESPIRATORY INFECTION, UNSPE 04/17/2017 GWEN RAMOS MD Ot J44.9 CHRONIC OBSTRUCTIVE PULMONARY DISEASE, U 04/17/2017 GWEN RAMOS MD Ot R05 COUGH 04/17/2017 GWEN RAMOS MD Ot R07.81 PLEURODYNIA 04/17/2017 GWEN RAMOS MD Ot Z79.01 MCC (CURRENT) USE OF ANTICOAGULANT 04/17/2017 GWEN RAMOS MD Ot 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9 ACUTE UPPER RESPIRATORY INFECTION, UNSPE 04/18/2017 GWEN RAMOS MD Ot J44.9 CHRONIC OBSTRUCTIVE PULMONARY DISEASE, U 04/18/2017 GWEN RAMOS MD Ot R05 COUGH 04/18/2017 GWEN RAMOS MD Ot R07.81 PLEURODYNIA 04/18/2017 GWEN RAMOS MD Ot 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.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 04/18/2017 GWEN RAMOS MD Ot 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 04/18/2017 GWEN RAMOS MD Ot Z82.49 FAMILY HX OF ISCHEM HEART DIS AND OTH DI 04/18/2017 GWEN RAMOS MD Ot Z86.73 PRSNL HX OF TIA (TIA), AND CEREB INFRC W 04/18/2017 GWEN RAMOS MD Ot Z98.51 TUBAL LIGATION STATUS 04/26/2017 MIRELLA MCMILLAN APRN Ot J43.8 OTHER EMPHYSEMA 04/26/2017 MIRELLA MCMILLAN APRN Ot R91.1 SOLITARY PULMONARY NODULE 04/26/2017 MIRELLA MCMILLAN APRN Ot Z72.0 TOBACCO USE 04/28/2017 MIRELLA MCMILLAN APRN Ot J30.2 OTHER SEASONAL ALLERGIC RHINITIS 04/28/2017 MIRELLA MCMILLAN APRN Ot J44.9 CHRONIC OBSTRUCTIVE PULMONARY DISEASE, U 04/28/2017 MIRELLA MCMILLAN APRN Ot R91.1 SOLITARY PULMONARY NODULE 05/09/2017 MIRELLA MCMILLAN APRN Ot J30.2 OTHER SEASONAL ALLERGIC RHINITIS 05/09/2017 MIRELLA MCMILLAN APRN Ot J44.9 CHRONIC OBSTRUCTIVE PULMONARY DISEASE, U 05/09/2017 HIPOLITO, MIRELLA E GRAPHIC SPECIALIST Ot R91.1 SOLITARY PULMONARY NODULE 05/09/2017 MIRELLA MCMILLAN GRAPHIC SPECIALIST Ot J30.2 OTHER SEASONAL ALLERGIC RHINITIS 05/09/2017 MIRELLA MCMILLAN GRAPHIC SPECIALIST Ot J44.9 CHRONIC OBSTRUCTIVE PULMONARY DISEASE, U 05/09/2017 LIDIA MCMILLANINE E GRAPHIC SPECIALIST Ot R91.1 SOLITARY PULMONARY NODULE 06/13/2017 MIRELLA MCMILLAN GRAPHIC SPECIALIST Ot J30.2 OTHER SEASONAL ALLERGIC RHINITIS 06/13/2017 MIRELLA MCMILLAN GRAPHIC SPECIALIST Ot J44.9 CHRONIC OBSTRUCTIVE PULMONARY DISEASE, U 06/13/2017 MIRELLA MCMILLAN GRAPHIC SPECIALIST Ot R91.1 SOLITARY PULMONARY NODULE 06/24/2017 SOTERO HUIZAR GRAPHIC SPECIALIST Ot K43.9 VENTRAL HERNIA WITHOUT OBSTRUCTION OR GA 06/24/2017 SOTERO HUIZAR APRN Ot R16.0 HEPATOMEGALY, NOT ELSEWHERE CLASSIFIED 06/29/2017 SOTERO HUIZAR GRAPHIC SPECIALIST Ot K43.9 VENTRAL HERNIA WITHOUT OBSTRUCTION OR GA 06/29/2017 SOTERO HUIZAR GRAPHIC SPECIALIST Ot R16.0 HEPATOMEGALY, NOT ELSEWHERE CLASSIFIED 07/09/2017 IGOR ARANA MD Ot 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) THROMBOCYTHEMIA 07/09/2017 IGOR ARANA MD Ot D72.829 ELEVATED WHITE BLOOD CELL COUNT, UNSPECI 07/09/2017 IGOR ARANA MD Ot E78.5 HYPERLIPIDEMIA, UNSPECIFIED 07/09/2017 IGOR ARANA MD Ot I10 ESSENTIAL (PRIMARY) HYPERTENSION 07/09/2017 IGOR ARANA MD Ot 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 Results Test Result Range CBC With Differential/Platelet - 03/16/16 11:24 WBC 11.6 x10E3/uL 3.4-10.8 RBC 5.02 x10E6/uL 3.77-5.28 Hemoglobin 15.1 g/dL 11.1-15.9 Hematocrit 46.4 % 34.0-46.6 MCV 92 fL 79-97 MCH 30.1 pg 26.6-33.0 MCHC 32.5 g/dL 31.5-35.7 RDW 14.6 % 12.3-15.4 Platelets 404 x10E3/uL 150-379 Neutrophils 62 % Lymphs 28 % Monocytes 7 % Eos 1 % Basos 1 % Neutrophils (Absolute) 7.3 x10E3/uL 1.4-7.0 Lymphs (Absolute) 3.3 x10E3/uL 0.7-3.1 Monocytes(Absolute) 0.8 x10E3/uL 0.1-0.9 Eos (Absolute) 0.2 x10E3/uL 0.0-0.4 Baso (Absolute) 0.1 x10E3/uL 0.0-0.2 Immature Granulocytes 1 % Immature Grans (Abs) 0.1 x10E3/uL 0.0-0.1 Comp. Metabolic Panel (14) - 03/16/16 11:24 Glucose, Serum 203 mg/dL 65-99 BUN 10 mg/dL 6-24 Creatinine, Serum 0.51 mg/dL 0.57-1.00 eGFR If NonAfricn Am 116 mL/min/1.73 >59 eGFR If Africn Am 133 mL/min/1.73 >59 BUN/Creatinine Ratio 20 9-23 Sodium, Serum 141 mmol/L 134-144 Potassium, Serum 4.2 mmol/L 3.5-5.2 Chloride, Serum 91 mmol/L 96-106 Carbon Dioxide, Total 27 mmol/L 18-29 Calcium, Serum 9.8 mg/dL 8.7-10.2 Protein, Total, Serum 7.5 g/dL 6.0-8.5 Albumin, Serum 4.6 g/dL 3.5-5.5 Globulin, Total 2.9 g/dL 1.5-4.5 A/G Ratio 1.6 1.1-2.5 Bilirubin, Total 0.6 mg/dL 0.0-1.2 Alkaline Phosphatase, S 105 IU/L 39-117 AST (SGOT) 43 IU/L 0-40 ALT (SGPT) 32 IU/L 0-32 Lipid Panel - 03/16/16 11:24 Cholesterol, Total 123 mg/dL 100-199 Triglycerides 376 mg/dL 0-149 HDL Cholesterol 24 mg/dL >39 VLDL Cholesterol Hardik 75 mg/dL 5-40 LDL Cholesterol Calc 24 mg/dL 0-99 Vitamin D, 25-Hydroxy - 03/16/16 11:24 Vitamin D, 25-Hydroxy 7.8 ng/mL 30.0-100.0 Thyroid Huslia Profile - 03/16/16 11:24 TSH 1.490 uIU/mL 0.450-4.500 Magnesium, Serum - 03/16/16 11:24 Magnesium, Serum 1.8 mg/dL 1.6-2.3 Urine Culture, Routine - 07/25/16 17:08 Urine Culture, Routine Note Complete urinalysis with reflex to culture - [...] culture - 08/16/16 15:00 Bacterial urine culture [id number] NRG COLONY COUNT 10,000/ML - 100,000/ML NRG FTX;REPORTABLE SENSITIVITY REPORTED 5/30 15:50 NRG FREE TEXT ENTRY 2 PLUS, [...] test by minimum inhibitory concentration - NRG Urine Culture, Routine - 09/13/16 15:39 Urine Culture, Routine Note Complete blood count (CBC) with automated white [...] urinalysis with reflex to culture NO NRG VITAMIN D, 25-H - 01/06/17 14:50 Vitamin D, 25-Hydroxy 14.5 ng/mL 30.0-100.0 Vitamin D, 25-Hydroxy - 01/06/17 14:50 Vitamin D, 25-Hydroxy 14.5 ng/mL 30.0-100.0 Complete blood count (CBC) with automated white [...] INFLUENZA A AND B ANTIGENS BY IA NRG Complete blood count (CBC) with automated [...] i.cardiac measurement (mass/volume) < ng/ mL <0.30 CULTURE, URINE - 05/11/17 15:19 CULTURE, URINE, ROUTINE SEE NOTE NRG AMYLASE - 06/17/17 15:17 AMYLASE 53 U/L 21-101 THYROID ANALYZER - 06/17/17 15:17 TSH 0.90 mIU/L NRG PDM - PAIN MGMT (PROFILE 3 WITH CONFIRMATION) - 06/17/17 15:17 Prescribed Drug 1 Hydrocodone NRG Creatinine 118.5 mg/dL > or=20.0 pH 6.15 4.5 - 9.0 Oxidant NEGATIVE mcg/mL <200 Amphetamines NEGATIVE ng/mL <500 medMATCH Amphetamines CONSISTENT NRG Benzodiazepines POSITIVE ng/mL <100 Marijuana Metabolite NEGATIVE ng/mL <20 medMATCH Marijuana Metab CONSISTENT NRG Cocaine Metabolite NEGATIVE ng/mL <150 medMATCH Cocaine Metab CONSISTENT NRG Opiates NEGATIVE ng/mL <100 medMATCH Opiates INCONSISTENT NRG Oxycodone NEGATIVE ng/mL <100 medMATCH Oxycodone CONSISTENT NRG COMMENT NRG Alphahydroxyalprazolam 429 ng/mL <25 medMATCH aOH alprazolam CONSISTENT NRG Alphahydroxymidazolam NEGATIVE ng/mL <50 medMATCH aOH midazolam CONSISTENT NRG Alphahydroxytriazolam NEGATIVE ng/mL <50 medMATCH aOH triazolam CONSISTENT NRG Aminoclonazepam NEGATIVE ng/mL <25 medMATCH Aminoclonazepam CONSISTENT NRG Hydroxyethylflurazepam NEGATIVE ng/mL <50 medMATCH OH,Et flurazepam CONSISTENT NRG Lorazepam NEGATIVE ng/mL <50 medMATCH Lorazepam CONSISTENT NRG Nordiazepam NEGATIVE ng/mL <50 medMATCH Nordiazepam CONSISTENT NRG Oxazepam NEGATIVE ng/mL <50 medMATCH Oxazepam CONSISTENT NRG Temazepam NEGATIVE ng/mL <50 medMATCH Temazepam CONSISTENT NRG Prescribed Drug 2 Xanax(TM) NRG CBC - 06/23/17 16:54 WHITE BLOOD CELL COUNT 12.8 Thousand/uL 3.8-10.8 RED BLOOD CELL COUNT 4.89 Million/uL 3.80-5.10 HEMOGLOBIN 15.0 g/dL 11.7-15.5 HEMATOCRIT 47.0 % 35.0-45.0 MCV 96.1 fL 80.0-100.0 MCH 30.7 pg 27.0-33.0 MCHC 31.9 g/dL 32.0-36.0 RDW 12.4 % 11.0-15.0 PLATELET COUNT 349 Thousand/uL 140-400 MPV 10.8 fL 7.5-12.5 ABSOLUTE NEUTROPHILS 7155 cells/uL 1402-3618 ABSOLUTE LYMPHOCYTES 4211 cells/uL 850-3900 ABSOLUTE MONOCYTES 1152 cells/uL 200-950 ABSOLUTE EOSINOPHILS 166 cells/uL 15-500 ABSOLUTE BASOPHILS 115 cells/uL 0-200 NEUTROPHILS 55.9 % NRG LYMPHOCYTES 32.9 % NRG MONOCYTES 9.0 % NRG EOSINOPHILS 1.3 % NRG BASOPHILS 0.9 % NRG VITAMIN D, 25-H - 08/02/17 08:45 VITAMIN D,25-OH,TOTAL,IA 18 ng/mL 30-100 Encounters ACCT No. Visit Date/Time Discharge Status Pt. Type Provider Facility Loc./Unit Complaint [id number] 06/23/2017 06:43:00 06/23/2017 23:59:59 CLS Outpatient SOTERO HUIZAR APRN [facility] RAD RUQ PAIN [id number] 04/28/2017 09:51:00 04/28/2017 23:59:59 CLS Preadmit MIRELLA MCMILLAN APRN [facility] RAD R91.1,Z72.0 [id number] 04/27/2017 09:42:00 04/27/2017 23:59:59 CLS Outpatient MIRELLA MCMILLAN APRN [facility] RT I44.9 COPD [id number] 04/16/2017 22:16:00 04/17/2017 01:15:00 DIS Emergency RICHARD WRIGHT, GWEN Blank [facility] [facility] ER CHEST PAIN AND BACK PAIN FROM DRY COUGH [id number] 04/05/2017 09:16:00 04/05/2017 23:59:59 CLS Outpatient MIRELLA MCMILLAN APRN [facility] RAD R91.1 LUNG NODULE [id number] 03/29/2017 10:15:00 03/29/2017 23:59:59 CLS Preadmit SOTERO HUIZAR GRAPHIC SPECIALIST [facility] RAD LUNG NODULE INCREASING IN SIZE [id number] 03/21/2017 00:21:00 03/21/2017 23:59:59 CLS Preadmit IGOR ARANA MD [facility] ONC [id number] 12/20/2016 15:01:00 03/20/2017 00:01:00 DIS Outpatient IGOR ARANA MD [facility] ONC [id number] 03/12/2017 12:32:00 03/12/2017 16:27:00 DIS Emergency PRISCILLA HUNT [facility] ER ABD PAIN, SHAKY, 4 PREVIOUS BRAIN-STEM FLORES [id number] 11/09/2016 20:08:00 11/09/2016 23:58:00 DIS Outpatient AKBAR EVANS MD [facility] ER DIZZINESS,NAUSEA [id number] 06/29/2016 15:16:00 09/12/2016 00:01:00 DIS Outpatient GILBERT GOMEZ MD [facility] ONC [id number] 08/16/2016 13:54:00 08/16/2016 16:50:00 DIS Emergency PRISCILLA HUNT [facility] ER UTI [id number] 07/02/2016 10:14:00 07/02/2016 23:59:59 CLS Outpatient GILBERT GOMEZ MD [facility] RAD HEADACHE,DIZZINESS [id number] 12/18/2015 09:01:00 03/17/2016 00:01:00 DIS Outpatient GILBERT GOMEZ MD [facility] ONC [id number] 09/18/2015 12:52:00 10/29/2015 00:01:00 DIS Outpatient GILBERT GOMEZ MD [facility] ONC [id number] 09/12/2015 20:37:00 2015 01:00:00 DIS Emergency JOSE ADLER DO [facility] ER DIZZINESS [id number] 09/10/2015 01:28:00 09/10/2015 03:57:00 DIS Emergency AKBAR EVANS MD [facility] ER RUSSELL,BLURRY EYES,BLOOD SUGAR HIGH,DIZZY [id number] 07/24/2015 09:02:00 07/24/2015 23:59:59 CLS Outpatient GILBERT GOMEZ MD [facility] ONC [id number] 05/23/2015 23:06:00 05/24/2015 00:31:00 DIS Emergency RONAN SOTO MD [facility] ER FULL BODY [place]INGLING/ NUMBNESS [id number] 05/22/2015 13:58:00 05/22/2015 16:11:00 DIS Emergency THELMA FARAH APRN [facility] ER DIZZINESS LIPS NUMBNESS [id number] 04/28/2015 11:14:00 04/28/2015 23:59:59 CLS Outpatient PASTOR CISNEROS MD [facility] RAD CALF PAIN,HEADACHES, DIABETES [id number] 03/28/2015 22:08:00 03/28/2015 23:59:59 CLS Emergency JOSE ADLER DO [facility] ER DIZZINESS,FACIAL NUMBNESS [id number] 03/24/2015 10:00:00 03/24/2015 23:59:59 CLS [facility]readmit [facility] [id number] 12/23/2014 17:00:00 03/23/2015 00:01:00 DIS Outpatient [facility] [id number] 03/21/2015 10:24:00 03/21/2015 23:59:59 CLS Outpatient PASTOR CISNEROS MD [facility] LAB TYPE 2 DIABETES INSULIN DEPENDENT [id number] 01/15/2015 08:11:00 01/15/2015 23:59:59 CLS Outpatient YUKO GARRETT MD [facility] CARD CPS,HTN,PALPITATIONS, SOB [id number] 12/02/2014 10:00:00 12/18/2014 00:01:00 DIS Outpatient [facility] [id number] 07/25/2014 08:49:00 10/23/2014 00:01:00 DIS Outpatient GILBERT GOMEZ MD [facility] ONC [id number] 08/27/2014 15:20:00 08/27/2014 23:59:59 CLS Outpatient JACOB NEWSOME MD [facility] RAD FOLLOW UP PER RADIOLOGIST [id number] 08/26/2014 12:47:00 08/26/2014 23:59:59 CLS Outpatient JACOB NEWSOME MD [facility] RAD CEREBRAL ATHEROSCLEROSIS [id number] 07/23/2014 20:00:00 07/23/2014 23:59:59 CLS Preadmit YUKO GARRETT MD [facility] SLEEP SNORING,HTN,HX OF STROKE [id number] 07/18/2014 11:36:00 07/18/2014 15:39:00 DIS Emergency AKBAR EVANS MD [facility] ER DIZZINESS,NAUSEA [id number] 06/17/2014 08:15:00 06/17/2014 23:59:59 CLS Outpatient YUKO GARRETT MD [facility] CARD PALPITATIONS SOB HTN [id number] 01/24/2014 08:49:00 04/24/2014 00:01:00 DIS Outpatient GILBERT GOMEZ MD [facility] ONC [id number] 02/13/2014 10:00:00 03/29/2014 16:22:00 DIS Outpatient PASTOR CISNEROS MD [facility] REHAB CVA [id number] 11/22/2013 09:41:00 01/14/2014 00:01:00 DIS Outpatient PASTOR CISNEROS MD [facility] REHAB CVA [id number] 10/25/2013 10:49:00 01/09/2014 00:01:00 DIS Outpatient GILBERT GOMEZ MD [facility] ONC [id number] 12/18/2013 09:18:00 12/18/2013 23:59:59 CLS Outpatient PASTOR CISNEROS MD [facility] RAD CHOKING,TROUBLE SWALLOWING [id number] 12/14/2013 19:01:00 12/14/2013 20:23:00 DIS Emergency RONAN SOTO MD [facility] ER CONGESTION [id number] 10/04/2013 13:16:00 10/04/2013 23:59:59 CLS Outpatient PASTOR CISNEROS MD [facility] RAD NEUROLOGICAL CHANGES, RECENT STROKE [id number] 09/24/2013 18:13:00 09/28/2013 13:30:00 DIS Inpatient SILVIA MARTINEZ MD [facility] IRF CVA [id number] 09/15/2013 14:10:00 09/18/2013 12:35:00 DIS Outpatient PASTOR CISNEROS MD [facility] SDC VERTIGO [id number] 09/07/2013 08:36:00 09/07/2013 23:59:59 CLS Outpatient PASTOR CISNEROS MD [facility] RT SEIZURE TYPE ACTIVITY [id number] 07/03/2013 12:37:00 07/03/2013 23:59:59 CLS Outpatient SULEMA HUDSON MD [facility] CARD CP,HTN [id number] 06/20/2013 08:30:00 06/20/2013 23:59:59 CLS Outpatient PASTOR CISNEROS MD [facility] LAB HYPOGLYCEMIA,FLUXUATING BLOOD SUGAR [id number] 06/08/2013 09:00:00 06/08/2013 23:59:59 CLS Outpatient SULEMA HUDSON MD [facility] CARD CP,HTN [id number] 05/21/2013 14:03:00 05/21/2013 23:59:59 CLS Outpatient PASTOR CISNEROS MD [facility] CARD HYPERTENSION,PERIPHERD EDEMA,SMOKER,CARDIMEGALY,CH [id number] 05/17/2013 21:44:00 05/17/2013 23:59:59 CLS Outpatient PASTOR CISNEROS MD [facility] LAB LIPID PANEL [id number] 05/17/2013 12:24:00 05/17/2013 23:59:59 CLS Outpatient PASTOR CISNEROS MD [facility] LAB EDEMA,FATIGUE,TACHYCARDIA ,JOINT PAIN [id number] 02/02/2013 14:11:00 02/23/2013 10:40:00 DIS Outpatient PASTOR CISNEROS MD [facility] REHAB NECK PAIN, UPPER BACK PAIN RADIATING LEFT SHOULDER [id number] 10/31/2012 14:21:00 10/31/2012 23:59:59 CLS Outpatient PASTOR CISNEROS MD [facility] RAD NECK PAIN,TENDERNESS RADIATING FROM ARM TO BACK OF [id number] 09/04/2012 08:56:00 09/04/2012 23:59:59 CLS Outpatient PASTOR CISNEROS MD [facility] RAD ABD PAIN,BLOATING R. SIDED FIRMNESS [id number] 09/01/2012 09:16:00 09/01/2012 10:45:00 DIS Outpatient PASTOR CISNEROS MD [facility] [address] ABNORMAL MRI OF BRAIN; MULTIPLE SCLEROSIS [id number] 07/18/2012 08:50:00 07/18/2012 23:59:59 CLS Outpatient PASTOR CISNEROS MD [facility] RAD FOLLOW UP ABD MRI [id number] 08/26/2014 12:46:00 Document Registration [id number] 05/19/2014 09:39:00 Document Registration [id number] 05/11/2014 19:49:00 Document Registration [id number] 06/26/2012 11:26:00 Document Registration [id number] 05/19/2012 09:58:00 Document Registration [id number] 04/20/2012 12:51:00 Document Registration [id number] 01/04/2012 12:04:00 Document Registration [id number] 12/31/2011 08:48:00 Document Registration [id number] 11/22/2011 22:34:00 Document Registration [id number] 10/08/2011 22:58:00 Document Registration [id number] 10/07/2011 13:12:00 Document Registration [id number] 07/26/2011 14:37:00 Document Registration [id number] 04/05/2011 08:01:00 Document Registration [id number] 02/03/2011 11:11:00 Document Registration [id number] 02/01/2011 11:54:00 Document Registration [id number] 12/08/2010 08:13:00 Document Registration [id number] 08/25/2009 10:44:00 Document Registration [id number] 03/17/2016 18:05:00 Document Registration [id number] 09/15/2016 17:09:00 Document Registration [id number] 08/02/2017 08:20:00 08/02/2017 23:59:59 C[id number] 08/02/2017 08:20:00 Document Registration [id number] 06/23/2017 16:40:00 Document Registration [id number] 06/17/2017 14:40:00 Document Registration [id number] 05/11/2017 14:45:00 Document Registration [id number] 01/06/2017 14:00:00 Document Registration [id number] 01/07/2017 07:05:00 Document Registration [id number] 07/28/2016 19:07:00 Document Registration
== END 2017-08-16 21:52 | disposition home or self-care (01) ==
LOC: EDUNIT# 20:46 → ER 20:47
DX: R20.2 Paresthesia of skin (principal); R42 Dizziness and giddiness; I10 Essential (primary) hypertension; G43.909 Migraine, unspecified, not intractable, without status migrainosus; K21.9 Gastro-esophageal reflux disease without esophagitis; D72.829 Elevated white blood cell count, unspecified; E11.9 Type 2 diabetes mellitus without complications; F41.9 Anxiety disorder, unspecified; Z87.19 Personal history of other diseases of the digestive system; Z86.73 Personal history of transient ischemic attack (TIA), and cerebral infarction without residual deficits; Z80.0 Family history of malignant neoplasm of digestive organs; Z82.49 Family history of ischemic heart disease and other diseases of the circulatory system; Z88.0 Allergy status to penicillin; Z88.5 Allergy status to narcotic agent; Z79.82 Long term (current) use of aspirin; Z79.02 Long term (current) use of antithrombotics/antiplatelets; Z87.59 Personal history of other complications of pregnancy, childbirth and the puerperium; Z98.51 Tubal ligation status
CPT/HCPCS: 36415; 70450; 72125; 80053; 85025; 96372

== ENCOUNTER 2017-09-15 09:14 | Emergency (ER) | payer MEDICARE, MEDICAID ==
[~2017-09-15] VITALS: Ht 157.5 cm; Wt 88.9 kg
[2017-09-15] MEDS ORDERED: morphine INJ 10 MG/ML 1ML (SYR OR VIAL) IVP STA (09:31)
[2017-09-15] MEDS ORDERED: LIDOCAINE 2% VISCOUS 15 ML UDC PO ONE (09:45)
[2017-09-15] MEDS ORDERED: ANTACID SUSP 30 ML UDC (MYLANTA) PO ONE (09:45)
--- NOTE | 2017-09-15 09:59 | Diagnostic Imaging Report ---
INDICATION: Chest pain and shortness of air. Time of exam 9:38 AM Correlation is made with prior study from 04/16/2017. The heart size is normal. Right hemidiaphragm is chronically elevated. No infiltrates are seen. The pulmonary vascularity is normal. No effusion or pneumothorax is identified. IMPRESSION: No acute cardiopulmonary process is detected. Dictated by: Dictated on workstation # [id number]
[2017-09-15 10:16] LABS: BASOPHILS % (AUTO) 0 % (0-10); EOSINOPHILS # (AUTO) 0.2 10^3/uL (0.0-0.3); EOSINOPHILS % (AUTO) 2 % (0-10); HEMATOCRIT 44 % (35-52); HEMOGLOBIN 14.4 G/DL (11.5-16.0); LYMPHOCYTES # (AUTO) 3.4 X 10^3 (1.0-4.0); LYMPHOCYTES % (AUTO) 29 % (12-44); MEAN CORPUSCULAR HEMOGLOBIN 31 PG (25-34); MEAN CORPUSCULAR HGB CONC 33 G/DL (32-36); MEAN CORPUSCULAR VOLUME 95 FL (80-99); MEAN PLATELET VOLUME 11.3 FL (7.4-10.4); MONOCYTES # (AUTO) 0.9 X 10^3 (0.0-1.0); MONOCYTES % (AUTO) 8 % (0-12); NEUTROPHILS # (AUTO) 7.1 X 10^3 (1.8-7.8); NEUTROPHILS % (AUTO) 61 % (42-75); PLATELET COUNT 285 10^3/uL (130-400); RED BLOOD COUNT 4.64 10^6/uL (4.35-5.85); RED CELL DISTRIBUTION WIDTH 14.2 % (10.0-14.5); WHITE BLOOD COUNT 11.6 10^3/uL (4.3-11.0)
[2017-09-15 10:21] LABS: PROTHROMBIN TIME PATIENT 12.7 SEC (12.2-14.7)
[2017-09-15 10:29] LABS: ALANINE AMINOTRANSFERASE 42 U/L (0-55); ALBUMIN 3.9 GM/DL (3.2-4.5); ALKALINE PHOSPHATASE 128 U/L (40-136); BILIRUBIN,TOTAL 0.7 MG/DL (0.1-1.0); BUN/CREATININE RATIO 9; CALCIUM 9.5 MG/DL (8.5-10.1); CARBON DIOXIDE 28 MMOL/L (21-32); CHLORIDE 98 MMOL/L (98-107); CREATININE SERUM 0.66 MG/DL (0.60-1.30); GFR ESTIMATED > 60; GLUCOSE 170 MG/DL (70-105); MAGNESIUM 1.9 MG/DL (1.8-2.4); POTASSIUM 3.8 MMOL/L (3.6-5.0); SODIUM 139 MMOL/L (135-145); TOTAL PROTEIN 7.3 GM/DL (6.4-8.2)
--- NOTE | 2017-09-15 12:17 | ED Chest Pain ---
General Chief Complaint: Chest Pain Stated Complaint: CP,STRAIN IN BACK,SOB Nursing Triage Note: C/O L-CHEST PRESSURE THAT STARTED 20 MINUTES PNP. PT. C/O HEAD FEELING FUNNY ET NUMBNESS TO L-ARM THAT RADIATES TO BACK. PT. DOES STATE THAT SHE MAY BE ANXIOUS. SHE DID NOT TAKE HER XANAX LAST NIGHT, WHICH SHE USUALLY DOES. PT. DID TAKE ALL HER HOME MEDS THIS MORNING. PT. DOES HAVE PMH OF STROKE. STATES NUMBNESS TO R-SIDE ET L-FACE TO L-ARM DEFICITS FROM PREVIOUS STROKE. PT. AMBULATED TO ROOM 10 W/O DIFFICULTY. Nursing Sepsis Screen: No Definite Risk Source: patient Exam Limitations: no limitations History of Present Illness Date Seen by Provider: Sep 15, 2017 Time Seen by Provider: 09:21 Initial Comments Here with report of left-sided chest pain that started us morning. States that she is feeling anxious and having some pain that radiated to her shoulder and arm that she initially describes as numbness. She forgot to Take her Xanax last night and did try that this morning that things were getting better. She presented to the ER. Does have history of strokes. She is currently on Plavix and aspirin and states that she has not missed any doses and she did take this morning's dose. Denies nausea, vomiting, sweating or weakness otherwise. Timing/Duration: 1-3 hours Severity/Quality: mild, moderate Location: central Radiation: arms Activities at Onset: none Prior CP/Workup: echocardiography, stress test Modifying Factors: improves with rest ASA po PNP: Yes NTG SL PNP: No Associated Symptoms: No abdominal pain, No back pain, No diaphoresis, No dizziness, No fatigue, No fever/chills, No nausea/vomiting, No shortness of breath, No weakness Allergies and Home Medications Allergies Coded Allergies: erythromycin base (Unverified Allergy, Mild, 11/11/08) Penicillins (Verified Allergy, Unknown, 11/14/08) codeine (Verified Allergy, Unknown, 11/14/08) Home Medications Acetaminophen 325 Mg Tab, 650 MG PO Q4H PRN for mild pain or fever Prescribed by: ERNESTO SY on 09/28/13 0932 Aspirin 81 Mg Tablet.dr, 81 MG PO DAILY, (Reported) Atorvastatin Calcium 80 Mg Tablet, 80 MG PO HS Prescribed by: CELIA ISAACS on 7/7/14 1850 Bisacodyl 10 Mg Supp, 10 MG PA DAILY PRN for CONSTIPATION Prescribed by: ERNESTO SY on 09/28/13931 Clopidogrel Bisulfate 75 Mg Tablet, 1 EACH PO DAILY Prescribed by: CELIA ISAACS on 09/24/131849 Diltiazem Hcl 30 Mg Tab, 30 MG PO Q8HR Prescribed by: ERNESTO SY on 09/28/13931 Hydrochlorothiazide 12.5 Mg Cap, 25 MG PO DAILY, (Reported) Hydrocodone Bit/Acetaminophen 1 Each Tablet, 1 EACH PO NEEDED, (Reported) Melatonin/Pyridoxine Hcl (B6) 1 Each Tab.mphase, 1 EACH PO HS, (Reported) Metoprolol Tartrate 25 Mg Tablet, 25 MG PO BID Prescribed by: ERNESTO SY on 09/28/13931 Nystatin 60 Ml Btl, 5 ML PO Q6H swish and swallow QID x5 days Prescribed by: THELMA FARAH on 05/11/142017 Omeprazole 40 Mg Capsule.dr, 40 MG PO DAILY, (Reported) Ondansetron 4 Mg Tab.rapdis, 4 MG SL Q4H PRN for NAUSEA/VOMITING Prescribed by: AKBAR BARROW on 09/10/15 0349 Ondansetron Hcl 4 Mg Tab, 4 MG SL Q4H FOR NAUSEA AND VOMITING Prescribed by: BLAIR DANIELS on 05/19/14 1128 Polyethylene Glycol 17 Gm Pack, 17 GM PO DAILY PRN for CONSTIPATION Prescribed by: CELIA ISAACS on 09/24/131849 Senna 1 Ea Tablet, 1 EA PO BID Prescribed by: ERNESTO SY on 09/28/13931 Patient Home Medication List Home Medication List Reviewed: Yes Review of Systems Constitutional: see HPI; No chills, No fever EENTM: No Symptoms Reported Respiratory: No Symptoms Reported Cardiovascular: Chest Pain; Denies Edema, Denies Irregular Heart Rate Gastrointestinal: No Symptoms Reported Genitourinary: No Symptoms Reported Musculoskeletal: see HPI; No back pain; muscle pain Skin: no symptoms reported Psychiatric/Neurological: Anxiety; Denies Weakness All Other Systems Reviewed Negative Unless Noted: Yes Past Wxmktfa-Uqfgwz-Opldxn Hx Past Med/Social Hx: Reviewed Nursing Past Med/Soc Hx Patient Social History Alcohol Use: Denies Use Recreational Drug Use: No Smoking Status: Current Everyday Smoker Type Used: Cigarettes 2nd Hand Smoke Exposure: No Recent Foreign Travel: No Contact w/Someone Who Travel: No Recent Infectious Disease Expo: No Recent Hopitalizations: No Physical Abuse: No Sexual Abuse: No Immunizations Up To Date Tetanus Booster (TDap): Unknown PED Vaccines UTD: No Date of Influenza Vaccine: Jan 07, 2017 Seasonal Allergies Seasonal Allergies: No Past Medical History Surgeries: Yes (egd, colonoscopy) Section, Gallbladder, Tubal Ligation Respiratory: No Cardiac: Yes High Cholesterol, Hypertension, Irregular Heartbeat Neurological: Yes Headaches /Migraines, Stroke, Vertigo Reproductive Disorders: Yes Female Reproductive Disorders: Endometriosis 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, 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 Sexually Transmitted Disease: No Genitourinary: Yes UTI-Chronic Gastrointestinal: Yes Gastroesophageal Reflux, Hiatal Hernia, Gall Bladder Disease Musculoskeletal: Yes Arthritis Endocrine: No Diabetes, Insulin dep HEENT: No Cancer: No Psychosocial: Yes Anxiety Nursing Suicide Risk Score: 0 Integumentary: No Blood Disorders: Yes ("CLOTTING DISORDER", chronic leukocytosis) Adverse Reaction/Blood Tranf: No Family Medical History Reviewed Nursing Family Hx Cancer 19 MOTHER (THROAT CANCER) Family history: Hypertension 19 MOTHER History of - disorder G8 SISTER (SISTER HAD MS) Myocardial infarction 19 FATHER 19 MOTHER Stroke 19 MOTHER Heart Disease, Hypertension, Stroke Physical Exam Vital Signs Vital Signs - First Documented 09/15/17 09:19 Temp 97.9 Pulse 83 Resp 21 B/P (MAP) 139/89 (106) Pulse Ox 93 O2 Delivery Room Air Capillary Refill : Less Than 3 Seconds General Appearance: No Apparent Distress, WD/WN HEENT: PERRL/EOMI, Pharynx Normal Neck: Non Tender, Supple Respiratory: Lungs Clear, Normal Breath Sounds Cardiovascular: Regular Rate, Rhythm, No Murmur Gastrointestinal: Non Tender, Soft Extremity: Normal Range of Motion, Non Tender Neurologic/Psychiatric: Alert, Oriented x3 Skin: Normal Color, Warm/Dry Progress/Results/Core Measures Results/Orders Lab Results Laboratory Tests Test 09/15/17 09:25 Range/Units White Blood Count 11.6 H 4.3-11.0 10^3/uL Red Blood Count 4.64 4.35-5.85 10^6/uL Hemoglobin 14.4 11.5-16.0 G/DL Hematocrit 44 35-52 % Mean Corpuscular Volume 95 80-99 FL Mean Corpuscular Hemoglobin 31 25-34 PG Mean Corpuscular Hemoglobin Concent 33 32-36 G/DL Red Cell Distribution Width 14.2 10.0-14.5 % Platelet Count 285 130-400 10^3/uL Mean Platelet Volume 11.3 H 7.4-10.4 FL Neutrophils (%) (Auto) 61 42-75 % Lymphocytes (%) (Auto) 29 12-44 % Monocytes (%) (Auto) 8 0-12 % Eosinophils (%) (Auto) 2 0-10 % Basophils (%) (Auto) 0 0-10 % Neutrophils # (Auto) 7.1 1.8-7.8 X 10^3 Lymphocytes # (Auto) 3.4 1.0-4.0 X 10^3 Monocytes # (Auto) 0.9 0.0-1.0 X 10^3 Eosinophils # (Auto) 0.2 0.0-0.3 10^3/uL Basophils # (Auto) 0.0 0.0-0.1 10^3/uL Prothrombin Time 12.7 12.2-14.7 SEC INR Comment 1.0 0.8-1.4 Activated Partial Thromboplast Time 29 24-35 SEC D-Dimer 0.40 0.00-0.49 UG/ML Sodium Level 139 135-145 MMOL/L Potassium Level 3.8 3.6-5.0 MMOL/L Chloride Level 98 98-107 MMOL/L Carbon Dioxide Level 28 21-32 MMOL/L Anion Gap 13 5-14 MMOL/L Blood Urea Nitrogen 6 L 7-18 MG/DL Creatinine 0.66 0.60-1.30 MG/DL Estimat Glomerular Filtration Rate > 60 BUN/Creatinine Ratio 9 Glucose Level 170 H 70-105 MG/DL Calcium Level 9.5 8.5-10.1 MG/DL Magnesium Level 1.9 1.8-2.4 MG/DL Total Bilirubin 0.7 0.1-1.0 MG/DL Aspartate Amino Transf (AST/SGOT) 59 H 5-34 U/L Alanine Aminotransferase (ALT/SGPT) 42 0-55 U/L Alkaline Phosphatase 128 40-136 U/L Myoglobin 19.0 10.0-92.0 NG/ML Troponin I < 0.30 <0.30 NG/ML Total Protein 7.3 6.4-8.2 GM/DL Albumin 3.9 3.2-4.5 GM/DL My Orders Orders - JULIENNE CLEVELAND MD Cbc With Automated Diff (09/15/17:29) Magnesium (09/15/17:) Chest 1 View, Ap/Pa Only (09/15/17:29) Ekg Tracing (09/15/17:29) Cardiac Profile 1 (09/15/17:29) Comprehensive Metabolic Panel (09/15/17:29) Myoglobin Serum (09/15/17:) Protime With Inr (09/15/17:) Partial Thromboplastin Time (09/15/17:) O2 (09/15/17:) Monitor-Rhythm Ecg Trace Only (09/15/17:) Lipid Panel (09/16/17 06:00) Saline Lock/Iv-Start (09/15/17:29) Lidocaine 2% Viscous 15 Ml (Xylocaine Vi (09/15/17 09:45) Antacid Suspension (Mylanta Suspension (09/15/17 09:45) Morphine Injection (Morphine Injection (09/15/17 09:31) Fibrin Degradation Products (09/15/17 10:43) Medications Given in ED Current Medications Medications Dose Ordered Sig/Lorie Route Start Time Stop Time Status Last Admin Dose Admin Al Hydrox/Mg Hydrox/Simethicone 30 ml ONCE ONCE PO 09/15/17 09:45 09/15/17 09:46 DC 09/15/17 10:13 30 ML Lidocaine HCl 15 ml ONCE ONCE PO 09/15/17 09:45 09/15/17 09:46 DC 09/15/17 10:13 15 ML Vital Signs/I&O 09/15/17 09:19 Temp 97.9 Pulse 83 Resp 21 B/P (MAP) 139/89 (106) Pulse Ox 93 O2 Delivery Room Air Blood Pressure Mean: 106 Progress Progress Note : Progress Note Seen and evaluated. IV, labs, EKG and chest x-ray ordered. GI cocktail and morphine 2 mg IV ordered. Patient refused morphine stating that she is feeling better monitor patient. Monitor patient. D-dimer added. Patient arrived eating ice and is having no difficulty with swallowing. She does have residual left-sided deficit that is unchanged from baseline. Monitor patient. 1210: No significant findings on labs and d-dimer negative. Patient essentially resolved and has no other findings. She is to follow-up with Dr. Hill and I will send a copy of the chart over to him. She's given a call his office today for appointment in the next week. Discharged home with return precautions. Patient verbalize understanding instructions and agreement with plan. Initial ECG Impression Date: Sep 15, 2017 Initial ECG Impression Time: 09:16 Initial ECG Rate: 81 Initial ECG Rhythm: Normal Sinus Comment Sinus rhythm with normal axis. No evidence of ST elevation TN. Unchanged from previous. Interpreted by me. Diagnostic Imaging Diagonstic Imaging: Xray Plain Films/CT/US/NM/MRI: chest Comments VIA [facility]. [place], [place] NAME: ARIEL BRYANT [facility] REC#: [id number] PT STATUS: REG ER : 1970 PHYSICIAN: JULIENNE CLEVELAND MD ADMIT DATE: 09/15/17/ER Draft Date of Exam:09/15/17 CHEST 1 VIEW, AP/PA ONLY INDICATION: Chest pain and shortness of air. Time of exam 9:38 AM Correlation is made with prior study from 04/16/2017. The heart size is normal. Right hemidiaphragm is chronically elevated. No infiltrates are seen. The pulmonary vascularity is normal. No effusion or pneumothorax is identified. IMPRESSION: No acute cardiopulmonary process is detected. Dictated on workstation # [id number] Dict: 09/15/17 0957 Trans: 09/15/17 0958 [facility] [id number] Interpreted by: TAO DICK MD Electronically signed by: Departure Impression Primary Impression: Chest pain Qualified Codes: R07.9 - Chest pain, unspecified Disposition: 01 HOME, SELF-CARE Condition: Improved Departure-Patient Inst. Referrals: EHSAN CARABALLO DO (PCP) Primary Care Physician SOTERO HUIZAR APRN (Family) Primary Care Physician YUKO HILL MD Patient Instructions: Chest Pain (DC) Add. Discharge Instructions: All discharge instructions reviewed with patient and/or family. Voiced understanding. Follow up with Dr. Hill within one week. Call his office today and let them know that you were seen in the ER and the one week follow-up. Return for worse pain, vomiting, weakness, breathing problems or other concerns as needed. Follow-up with your regular doctor within one week for recheck as well. Copy Copies To 1: YUKO HILL MD, TIMOTHY D MD Sep 15, 2017 12:17
[2017-09-15 12:28] VITALS: BP 108/67
== END 2017-09-15 12:28 | disposition home or self-care (01) ==
LOC: EDUNIT# 09:14 → ER 09:16
DX: R07.89 Other chest pain (principal); E78.00 Pure hypercholesterolemia, unspecified; E11.9 Type 2 diabetes mellitus without complications; I10 Essential (primary) hypertension; G43.909 Migraine, unspecified, not intractable, without status migrainosus; F17.210 Nicotine dependence, cigarettes, uncomplicated; Z87.59 Personal history of other complications of pregnancy, childbirth and the puerperium; Z98.51 Tubal ligation status; Z86.73 Personal history of transient ischemic attack (TIA), and cerebral infarction without residual deficits; Z79.82 Long term (current) use of aspirin; Z79.02 Long term (current) use of antithrombotics/antiplatelets; Z88.0 Allergy status to penicillin; Z88.1 Allergy status to other antibiotic agents; Z88.5 Allergy status to narcotic agent
CPT/HCPCS: 36415; 71045; 80053; 83735; 83874; 84484; 85025; 85379; 85610; 85730; 93005; 93041

== ENCOUNTER → 2017-09-30 | Outpatient (CLI) | payer MEDICARE, MEDICAID ==
[~2017-09-30] MED LIST changes: +CIPR-225 PO
== END ==
LOC: CARD 12:57
PROVIDERS: ATTEND Internal Medicine Cardiovascular Disease
DX: R07.9 Chest pain, unspecified (principal); K21.9 Gastro-esophageal reflux disease without esophagitis; I10 Essential (primary) hypertension; J44.9 Chronic obstructive pulmonary disease, unspecified
CPT/HCPCS: 93306

== ENCOUNTER → 2017-10-19 | Outpatient (CLI) | payer MEDICARE, MEDICAID ==
--- NOTE | 2017-10-19 10:02 | Diagnostic Imaging Report ---
PROCEDURE: CT chest without contrast. TECHNIQUE: Multiple contiguous axial images were obtained through the chest without the use of intravenous contrast. INDICATION: Followup lung nodules and chest pressure. COMPARISON: Comparison is made with prior CT chest from 04/05/2017. FINDINGS: No axillary lymphadenopathy is identified. Hilar and mediastinal evaluation is limited without intravenous contrast but no gross abnormality is seen. No pericardial or pleural fluid is identified. Paraseptal emphysema in the upper lobes again noted. Previously noted ill-defined opacity in the left upper lobe appears to be fairly stable at approximately 7 mm compared with 8-9 mm on prior. No new parenchymal nodule is seen. The upper abdomen is stable. IMPRESSION: Stable ill-defined left upper lobe nodular density when compared with examination from 04/05/2017. Continued followup with repeat study in 6 months is recommended to show continued stability. Dictated by: Dictated on workstation # [id number]
== END ==
LOC: RAD 09:25
PROVIDERS: ATTEND Nurse Practitioner Family
DX: R91.8 Other nonspecific abnormal finding of lung field (principal); Z72.0 Tobacco use
CPT/HCPCS: 71250

== ENCOUNTER → 2017-10-31 | Outpatient (CLI) | payer MEDICARE, MEDICAID ==
[~2017-10-31] VITALS: Ht 157.5 cm; Wt 108.9 kg
[~2017-10-31] MED LIST changes: -CIPR-225 PO; +REGADENOSON 0.4 MG/5 ML SYR (LEXISCAN) IV ONE
[2017-10-31] MEDS: CATHETER FLUSH 10 ML SYR IV PRN ×2 (08:14→09:31)
[2017-10-31 09:29] VITALS: BP 140/72
--- NOTE | 2017-10-31 13:21 | STRESS TEST ---
DATE OF SERVICE: 10/31/2017 LEXISCAN MYOVIEW STRESS TEST REPORT REFERRING PHYSICIAN: Dr. Maryuri Palacios, [facility]. Baseline heart rate is 92. Baseline blood pressure 118/72. Baseline EKG is sinus rhythm with no ischemic changes. In summary, the patient was injected with 10.64 mCi of technetium-99 Myoview and the resting images were obtained. Then, the patient received 0.4 mg of Lexiscan followed by 32.3 mCi of technetium-99 Myoview. Throughout the test, there were no EKG changes. The resting and stress images were reviewed and compared in the short axis, horizontal long axis, and vertical long axis views. Review of the images showed good radiotracer uptake with no significant ischemia or infarction. SSS is 1, SDS 1, TID value 1.02. On the gated images, the left ventricle appeared to be in normal size with normal contractility. Calculated ejection fraction 68%. CONCLUSION: 1. The patient tolerated Lexiscan well. 2. No ischemia or infarction on SPECT images. 3. Normal left ventricular size with normal contractility. Calculated ejection fraction 68%. Job ID: [id number] DocumentID: [id number] Dictated Date: 10/31/2017 12:36:07 Underground Roof [employer]ter Date: 10/31/2017 13:20:45 Dictated By: YUKO GARRETT MD
== END ==
LOC: CARD 07:48
PROVIDERS: ATTEND Internal Medicine Cardiovascular Disease
DX: R07.9 Chest pain, unspecified (principal); K21.9 Gastro-esophageal reflux disease without esophagitis; I10 Essential (primary) hypertension; J44.9 Chronic obstructive pulmonary disease, unspecified
CPT/HCPCS: 78452; 93017

== ENCOUNTER 2017-11-04 08:00 | Emergency (ER) | payer MEDICARE, MEDICAID ==
[~2017-11-04] VITALS: Ht 157.5 cm; Wt 89.4 kg
[~2017-11-04 08:00] MED LIST changes: -REGADENOSON 0.4 MG/5 ML SYR (LEXISCAN) IV ONE
[2017-11-04 08:21] LABS: GLUCOSE, URINE (UA) NEGATIVE (NEGATIVE); KETONES,URINE NEGATIVE (NEGATIVE); LEUKOCYTE ESTERASE ,URINE NEGATIVE (NEGATIVE); NITRITE,URINE POSITIVE (NEGATIVE); PH,URINE 5 (5-9); PROTEIN,URINE 3+ (NEGATIVE); UROBILINOGEN,URINE 4 MG/DL (NORMAL)
[2017-11-04 08:24] LABS: COLOR,URINE ORANGE
[2017-11-04 08:35] LABS: BILIRUBIN,URINE 3+ (NEGATIVE)
[2017-11-04 08:36] LABS: CLARITY,URINE VERY CLOUDY
[2017-11-04 08:37] LABS: BACTERIA,URINE MODERATE /HPF; WBC,URINE >100 /HPF
--- NOTE | 2017-11-04 08:46 | ED GU-Female ---
General Chief Complaint: -Female Stated Complaint: HURTS WHEN URINATING Nursing Triage Note: pt presents to ed with complaints of lower pelvic/urinary problems x 4 days. pt was seen at [facility] on Tuesday and diagnosed with a UTI. pt placed on macrobid and pyridium. Pt reports she stopped taking the macrobid after 1 tablet because she developed hives. pt reports she was told by [facility] that they would start an antibiotic after they get the cultures back. Pt reports she has not been prescribed anything new yet and feels like it is getting worse. Nursing Sepsis Screen: No Definite Risk Source: patient Exam Limitations: no limitations History of Present Illness Date Seen by Provider: Nov 04, 2017 Time Seen by Provider: 08:29 Initial Comments Patient presents c/ c/o lower abdominal pain c/ hematuria, urinary frequency, and dysuria x 4 days. Reportedly saw her PCP earlier in the week and was Rx's Macrobid and Pyridium but developed hives p/ one dose of Macrobid and stopped it. Checked back c/ her PCP who apparently told her they were going to wait for her urine C&S to return before Rx'ing anything else leading to her presentation here this AM. Denies any N/V, or fever. Timing/Duration: constant, getting worse Severity/Quality: moderate Location: suprapubic Radiation: none Activities at Onset: none Prior Genitourinary Problems: similar symptoms Modifying Factors: Improves With Urinating Associated Symptoms: abdominal pain, urinary frequency Allergies and Home Medications Allergies Coded Allergies: erythromycin base (Unverified Allergy, Mild, 11/11/08) Penicillins (Verified Allergy, Unknown, 11/14/08) codeine (Verified Allergy, Unknown, 11/14/08) nitrofurantoin (Verified Allergy, Unknown, 11/04/17) Home Medications Acetaminophen 325 Mg Tab, 650 MG PO Q4H PRN for mild pain or fever Prescribed by: ERNESTO SY on 09/28/13 0932 Aspirin 81 Mg Tablet.dr, 81 MG PO DAILY, (Reported) Atorvastatin Calcium 80 Mg Tablet, 80 MG PO HS Prescribed by: CELIA ISAACS on 09/24/13 1850 Bisacodyl 10 Mg Supp, 10 MG LA DAILY PRN for CONSTIPATION Prescribed by: ERNESTO SY on 09/28/13 0932 Clopidogrel Bisulfate 75 Mg Tablet, 1 EACH PO DAILY Prescribed by: CELIA ISAACS on 09/24/131849 Diltiazem Hcl 30 Mg Tab, 30 MG PO Q8HR Prescribed by: ERNESTO SY on 09/28/13 0932 Hydrochlorothiazide 12.5 Mg Cap, 25 MG PO DAILY, (Reported) Hydrocodone Bit/Acetaminophen 1 Each Tablet, 1 EACH PO NEEDED, (Reported) Melatonin/Pyridoxine Hcl (B6) 1 Each Tab.mphase, 1 EACH PO HS, (Reported) Metoprolol Tartrate 25 Mg Tablet, 25 MG PO BID Prescribed by: ERNESTO SY on 09/28/13 0932 Nystatin 60 Ml Btl, 5 ML PO Q6H swish and swallow QID x5 days Prescribed by: THELMA FARAH on 05/11/142017 Omeprazole 40 Mg Capsule.dr, 40 MG PO DAILY, (Reported) Ondansetron 4 Mg Tab.rapdis, 4 MG SL Q4H PRN for NAUSEA/VOMITING Prescribed by: AKBAR BARROW on 09/10/15 0349 Ondansetron Hcl 4 Mg Tab, 4 MG SL Q4H FOR NAUSEA AND VOMITING Prescribed by: BLAIR DANIELS on 05/19/14 1128 Polyethylene Glycol 17 Gm Pack, 17 GM PO DAILY PRN for CONSTIPATION Prescribed by: CELIA ISAACS on 09/24/131849 Senna 1 Ea Tablet, 1 EA PO BID Prescribed by: ERNESTO SY on 09/28/13 0932 Patient Home Medication List Home Medication List Reviewed: Yes Review of Systems Constitutional: see HPI EENTM: No blurred vision, No double vision, No throat pain Respiratory: No short of breath, No stridor Cardiovascular: No edema, No palpitations, No syncope Gastrointestinal: No diarrhea, No nausea Genitourinary: see HPI, burning, dysuria, frequency; denies flank pain; hematuria; denies incontinence; pain : No Psychiatric/Neurological: See HPI; Denies Paresthesia, Denies Seizure, Denies Tingling Endocrine: See HPI; Denies Excessive Sweating, Denies Flushing, Denies Increased Urine, Denies Other Hematologic/Lymphatic: Denies Other Past Hytycsf-Rckdny-Ginula Hx Patient Social History Alcohol Use: Denies Use Recreational Drug Use: No Smoking Status: Current Everyday Smoker Type Used: Cigarettes 2nd Hand Smoke Exposure: No Recent Foreign Travel: No Contact w/Someone Who Travel: No Recent Infectious Disease Expo: No Recent Hopitalizations: No Physical Abuse: No Sexual Abuse: No Mistreated: No Fear: No Immunizations Up To Date Tetanus Booster (TDap): Unknown PED Vaccines UTD: No Date of Influenza Vaccine: Jan 07, 2017 Seasonal Allergies Seasonal Allergies: No Past Medical History Surgeries: Yes (egd, colonoscopy) Section, Gallbladder, Tubal Ligation Respiratory: No (l lung nodule) Cardiac: Yes High Cholesterol, Hypertension, Irregular Heartbeat Neurological: Yes (r sided numbness r/t previous stroke) Headaches /Migraines, Stroke, Vertigo Reproductive Disorders: Yes Female Reproductive Disorders: Endometriosis 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, 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 Sexually Transmitted Disease: No Genitourinary: Yes UTI-Chronic Gastrointestinal: Yes Gastroesophageal Reflux, Hiatal Hernia, Gall Bladder Disease Musculoskeletal: Yes Arthritis Endocrine: No Diabetes, Insulin dep HEENT: No Cancer: No Psychosocial: Yes Anxiety Nursing Suicide Risk Score: 0 Integumentary: No Blood Disorders: Yes ("CLOTTING DISORDER", chronic leukocytosis) Adverse Reaction/Blood Tranf: No Family Medical History Cancer 19 MOTHER (THROAT CANCER) Family history: Hypertension 19 MOTHER History of - disorder G8 SISTER (SISTER HAD MS) Myocardial infarction 19 FATHER 19 MOTHER Stroke 19 MOTHER Heart Disease, Hypertension, Stroke Physical Exam Vital Signs Vital Signs - First Documented 11/04/17 08:18 Temp 97.0 Pulse 87 Resp 18 B/P (MAP) 133/76 (95) Pulse Ox 95 Capillary Refill : Less Than 3 Seconds Height, Weight, BMI Height: 5'2.00" Weight: 197lbs. 0.0oz. 89.579302qi; 43.9 BMI Method:Stated General Appearance: WD/WN, no apparent distress, obese Cardiovascular: regular rate, rhythm Respiratory: no respiratory distress Gastrointestinal: soft, tenderness (Mild; Suprapubic) Rectal: deferred Back: no CVA tenderness Neurologic/Psychiatric: alert, normal mood/affect, oriented x 3 Skin: warm/dry Progress/Results/Core Measures Suspected Sepsis Recent Fever Within 48 Hours: No Infection Criteria Present: Documented Infection New/Unexplained Altered Menta: No Sepsis Screen: No Definite Risk SIRS Temperature:97.0 Pulse: 87 Respiratory Rate: 18 Blood Pressure 133 /76 Mean: 95 Results/Orders Lab Results Laboratory Tests Test 11/04/17 08:14 Range/Units Urine Color ORANGE Urine Clarity VERY CLOUDY H Urine pH 5 5-9 Urine Specific [place] 1.020 1.016-1.022 Urine Protein 3+ H NEGATIVE Urine Glucose (UA) NEGATIVE NEGATIVE Urine Ketones NEGATIVE NEGATIVE Urine Nitrite POSITIVE H NEGATIVE Urine Bilirubin 3+ H NEGATIVE Urine Urobilinogen 4 H NORMAL MG/DL Urine Leukocyte Esterase NEGATIVE NEGATIVE Urine RBC (Auto) 2+ H NEGATIVE Urine RBC 5-10 H /HPF Urine WBC >100 H /HPF Urine Squamous Epithelial Cells 5-10 /HPF Urine Crystals NONE /LPF Urine Bacteria MODERATE H /HPF Urine Casts PRESENT /LPF Urine Granular Casts 10-25 H /LPF Urine Mucus NEGATIVE /LPF Urine Culture Indicated YES My Orders Orders - JOSE ADLER DO Ciprofloxacin Tablet (Cipro Tablet) (11/04/17 09:00) Vital Signs/I&O 11/04/17 11/04/17 08:18 09:01 Temp 97.0 Pulse 87 87 Resp 18 16 B/P (MAP) 133/76 (95) 129/87 Pulse Ox 95 98 Capillary Refill : Less Than 3 Seconds Blood Pressure Mean: 95 Departure Impression Primary Impression: Urinary tract infection Disposition: 01 HOME, SELF-CARE Condition: Stable Departure-Patient Inst. Referrals: EHSAN CARABALLO DO (PCP) Primary Care Physician SOTERO HUIZAR APRN (Family) Primary Care Physician Patient Instructions: Urinary Tract Infection, Adult (DC) Scripts Ciprofloxacin HCl (Cipro) 500 Mg Tablet 500 MG PO BID for uti, #20 TAB 0 Refills Prov: JOSE ADLER DO 11/04/17 JOSE ADLER DO Nov 04, 2017 08:46
[2017-11-04] MEDS ORDERED: CIPROFLOXACIN 500 MG (CIPRO) TABLET PO SCH (09:00)
[2017-11-04 09:01] VITALS: BP 129/87
[2017-11-04] MEDS ORDERED: CIPR-225 PO (09:15)
--- OUTSIDE RECORDS SUMMARY | 2017-11-04 16:26 | XMS REPORT | Clinical Summary ---
Author Author [facility] Organization [facility] Address Unknown Phone Unavailable Care Team Providers Care [employer] Name Role Phone Unknown, Unknown Md PCP Unavailable Source Comments Some departments are not documenting in the electronic medical record. If you do not see the information that you expected, contact Release of Information in the Health Information Management department at [phone] for further assistance in locating additional records.[facility] Allergies Not on File Current Medications Not [...]
--- OUTSIDE RECORDS SUMMARY | 2017-11-04 16:26 | XMS REPORT ---
Author Author SOTERO HUIZAR Organization [facility] Address [address] [place] [address] Care Team Providers Care Wash Test Checker Name Role Phone HUIZARMICHAEL CoxELE Unavailable PROBLEMS Type Condition ICD9-CM Code HCU54-KU Code Onset Dates Condition Status SNOMED Code Problem Tobacco abuse Z72.0 Active 768548565 Problem Seasonal allergic rhinitis due to pollen J30.1 Active 63455472 Problem Tobacco abuse counseling Z71.6 Active 704871416 Problem Abnormal drug screen R89.2 Active 337619223 Problem Acute non intractable tension-type headache G44.209 Active 981550451 Problem FDC current use of insulin Z79.4 Active 857540803 Problem History of CVA with residual deficit I69.30 Active 421244470 Problem Chronic pain syndrome G89.4 Active 404254293 Problem Type 2 diabetes mellitus with hyperglycemia E11.65 Active 20541264 Problem Elevated liver enzymes R74.8 Active 306893587 Problem Generalized anxiety disorder F41.1 Active 50915127 Problem Vitamin D deficiency E55.9 Active 78346485 Problem Major depressive disorder, recurrent episode, moderate F33.1 Active 635645326 Problem Hyperlipidemia, unspecified hyperlipidemia type E78.5 Active 13746752 Problem Gastroesophageal reflux disease, esophagitis presence not specified K21.9 Active 088642927 Problem 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 Active 540463578 Problem Essential hypertension I10 Active 48364141 Problem DM (diabetes mellitus) with complications E11.8 Active 79038268 Problem Other chronic pain G89.29 Active 58968474 ALLERGIES No Information ENCOUNTERS Encounter Location Date Diagnosis [facility] [address] [facility] [id number] [address] Oct, [facility] [address] [id number], [place] [address] Oct, Dysuria R30.0 and Acute cystitis with hematuria N30.01 [facility] [address], [place] [address] Oct, [facility] [id number] [place] [address] 63681- 9886 Oct, [facility] [id number] [place] [address] 03326- 6503 Oct, Controlled substance agreement broken Z91.14 ; Violation of controlled substance agreement Z91.14 ; Other chronic pain G89.29 and Generalized anxiety disorder F41.1 [facility] [id number] [place] [address] 85481- 3015 Oct, [facility] [id number] [place] [address] 94003- 8491 Oct, [facility] [id number] [place] [address] 94111- 5491 Sep, Abscess L02.91 [facility] [id number] [place] [address] 57017- 7836 Sep, [facility] [id number] [place] [address] 34183- 1441 Sep, DM (diabetes mellitus) with complications E11.8 ; Generalized anxiety disorder F41.1 and Chronic pain syndrome G89.4 [facility] [id number] [place] [address] 74038- 8402 Sep, Generalized anxiety disorder F41.1 ; Chronic pain syndrome G89.4 ; Abnormal drug screen R89.2 and Other chest pain R07.89 [facility] [id number] [place] [address] 64243- 8971 Aug, Dysuria R30.0 [facility] [id number] [place] [address] 00993- 8176 Aug, Generalized anxiety disorder F41.1 ; Chronic pain syndrome G89.4 and Dysuria R30.0 [facility] [id number] [place] [address] 11090- 2055 Aug, Acute cystitis with hematuria N30.01 and Candidal dermatitis B37.2 [place] [facility] [id number] [place] [address] 25769- 7008 Aug, Dysuria R30.0 [place] [id number] [place] [address] 85955- 2505 Aug, [facility] [id number] [place] [address] 12898 -5762 Aug, Dysuria R30.0 [place] [id number] [place] [address] 59291- 6288 Aug, [place] [facility] [id number] [place] [address] 52651- 3506 July, Cervicalgia M54.2 ; Acute non intractable tension-type headache G44.209 ; Type 2 diabetes mellitus with hyperglycemia E11.65 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 [facility] [facility] [id number] [place] [address] 84794- 8982 July, Generalized anxiety disorder F41.1 and Chronic pain syndrome G89.4 [facility] [id number] [place] [address] 40541- 5554 July, Abscess L02.91 [place] [facility] [id number] [place] [address] 86207- 8813 July, [facility] [id number] [place] [address] 69917- 5825 July, [place] [id number] [place] [address] 05167- 1245 July, Type 2 diabetes mellitus with hyperglycemia E11.65 ; FDC current use of insulin Z79.4 ; Elevated [...] pain syndrome G89.4 and Vaginal candidiasis B37.3 [place] [facility] [id number] [place] [address] 40181- 2913 Jun, Generalized anxiety disorder F41.1 and Other chronic pain G89.29 [place] [address] 34898- 8245 Jun, [place] [address] 39237- 8090 Jun, [place] [address] 54188- 6568 Jun, Abnormal levels of other serum enzymes R74.8 [place] [address] 45918- 4377 Jun, Abnormal levels of other serum enzymes R74.8 [facility] [facility] [id number] [place] [address] 36032- 4331 Jun, Elevated liver enzymes R74.8 [place] [address] 66024- 8499 Jun, Elevated liver enzymes R74.8 [facility] [facility] [id number] [place] [address] 07317- 2780 May, Right upper quadrant pain R10.11 ; Cervicalgia M54.2 and High risk medication use Z79.899 [place] [facility] [id number] [place] [address] 14541- 6763 May, Generalized anxiety disorder F41.1 and Other chronic pain G89.29 [place] [facility] [id number] [place] [address] 20624- 6755 May, Canker sores oral K12.0 [place] [address] 64293- 4019 May, Generalized anxiety disorder F41.1 and Other chronic pain G89.29 [facility] [id number] [place] [address] 70416- 8922 May, [facility] [id number] [place] [address] 75464- 7052 Apr, [facility] [address] 39271 -8267 Apr, Acute cystitis with hematuria N30.01 and Dysuria R30.0 [facility] [address] 20925- 6621 Apr, [facility] [address] 75667- 0746 Apr, [facility] [address] 80076- 8956 Apr, DM (diabetes mellitus) with complications E11.8 [facility] [id number] [place] [address] 97295- 1487 Apr, DM (diabetes mellitus) with complications E11.8 [facility] [id number] [place] [address] 69919- 6249 Apr, [facility] [id number] [place] [address] 22344- 3229 Apr, [facility] [id number] [place] [address] 54852- 9742 Apr, Other chronic pain G89.29 ; Generalized anxiety disorder F41.1 ; Cervicalgia M54.2 and Controlled substance agreement signed Z79.899 [facility] [id number] [place] [address] 10031 -7516 Mar, Abdominal pain R10.9 and Viral gastroenteritis A08.4 [facility] [id number] [place] [address] 70190- 9374 Mar, [place] [id number] [place] [address] 51219- 2946 Mar, [place] [address] 04404- 0185 Mar, DM (diabetes mellitus) with complications E11.8 ; Type 2 diabetes mellitus with hyperglycemia E11.65 ; 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 ; Essential hypertension I10 ; Bronchitis J40 ; Major depressive disorder , recurrent episode, moderate F33.1 ; Hyperlipidemia, unspecified hyperlipidemia type E78.5 ; Tobacco abuse Z72.0 ; Tobacco abuse counseling Z71.6 ; History of CVA with residual deficit I69.30 ; Gastroesophageal reflux disease, esophagitis presence not specified K21.9 and 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 [place] [address] 18495- 4976 Mar, [place] [address] 06028- 9811 Mar, DM (diabetes mellitus) with complications E11.8 ; Abnormal lung sounds R09.89 ; Bronchitis J40 and Hyperlipidemia, unspecified hyperlipidemia type E78.5 [facility] [address] 94915 -1893 Mar, URI, acute J06.9 [place] [address] 72849- 2021 Mar, [place] [address] 11730- 9330 Mar, DM (diabetes mellitus) with complications E11.8 [place] [address] 51824- 5944 Mar, Other chronic pain G89.29 and Generalized anxiety disorder F41.1 [place] [id number] [place] [address] 47947- 3988 Feb, [place] [address] 05650- 2270 Feb, Mass of left lung R91.8 and Cervicalgia M54.2 [facility] [address] 17908- 1037 Feb, [facility] [address] 21186- 0005 Feb, [facility] [address] 18343 -5138 Feb, Cough R05 and Bronchitis J40 [facility] [address] 36772 -9506 07 Feb, 2017 Acute nasopharyngitis J00 and Bronchitis J40 [place] [address] 41361- 1100 06 Feb, 2017 Other chronic pain G89.29 and Generalized anxiety disorder F41.1 [place] [address] 09227- 6871 Jan, Encounter for immunization Z23 [facility] [place] [address] 97071 -6474 Jan, [facility] [place] [address] 42882 -0335 18 Jan, 2017 [place] [address] 71357- 4538 16 Jan, 2017 Canker sores oral K12.0 [place] [address] 37745- 9811 14 Jan, 2017 [place] [address] 93005- 6465 07 Jan, 2017 Other chronic pain G89.29 and Generalized anxiety disorder F41.1 [place] [address] 51747- 0330 06 Jan, 2017 Cough R05 and Bronchitis J40 [facility] [address] 42994 -0997 Jan, Bronchitis J40 [place] [id number] [place] [address] 69745- 5190 Dec, Vitamin D deficiency E55.9 [place] [id number] [place] [address] 98450- 0788 Dec, DM (diabetes mellitus) with complications E11.[address] 89200- 2274 Dec, DM (diabetes mellitus) with complications E11.8 and Vitamin D deficiency E55.9 [id number] [place] [address] 79570- 3085 Dec, DM (diabetes mellitus) with complications E11.8 ; Essential hypertension I10 ; Hyperlipidemia, unspecified hyperlipidemia type E78.5 ; Vitamin D deficiency E55.9 ; Gastroesophageal reflux disease, esophagitis presence not specified K21.9 ; 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 ; Other chronic pain G89.29 ; Encounter for immunization Z23 and Generalized anxiety disorder F41.[address] 68980- 9513 12 Nov, 2016 History of CVA with residual deficit I69.[address] 88148- 3963 11 Nov, 2016 DM (diabetes mellitus) with complications E11.8 [id number] [place] [address] 61154- 0178 Nov, Left otitis media with effusion H65.92 ; Bronchitis J40 and Canker sores oral K12.0 [id number] [place] [address] 51778- 9840 Oct, [address] 30530- 8151 Oct, DM (diabetes mellitus) with complications E11.8 [id number] [place] [address] 21765- 2281 Oct, [id number] [place] [address] 31508- 5962 17 Sep, 2016 DM (diabetes mellitus) with complications E11.8 [place] [address] 84706- 1697 11 Sep, 2016 DM (diabetes mellitus) with complications E11.8 ; Essential hypertension I10 ; Gastroesophageal reflux disease, esophagitis presence not specified K21.9 ; Hyperlipidemia, unspecified hyperlipidemia type E78.5 ; Tobacco abuse Z72.0 ; Vitamin D deficiency E55.9 ; History of CVA with residual deficit I69.30 and Seasonal allergic rhinitis due to pollen J30.1 [place] [address] 18345- 6283 Sep, [place] [address] 60763- 7053 Aug, [facility] [id number] [place] [address] 77707 -9818 Aug, Dysuria R30.0 ; Acute cystitis with hematuria N30.01 and Middle ear effusion, right H65.91 [place] [id number] [place] [address] 65388- 6233 Aug, Other complicated headache syndrome G44.59 [place] [id number] [place] [address] 63628- 8368 19 Aug, 2016 DM (diabetes mellitus) with complications E11.8 [place] [id number] [place] [address] 95087- 4798 14 Aug, 2016 Dysuria R30.0 [place] [id number] [place] [address] 49075- 6101 Aug, Dysuria R30.0 [place] [address] 54233- 5097 Aug, [place] [id number] [place] [address] 08855- 0026 July, [place] [address] [place] [address]- 1254 July, [facility] [id number] [place] [address] 01761- 6385 July, DM (diabetes mellitus) with complications E11.8 [facility] [id number] [place] [address] 38912- 6772 July, Other complicated headache syndrome G44.59 [facility] [id number] [place] [address] 30837- 0524 July, [facility] [id number] [place] [address] 66273 -3004 July, Dysuria R30.0 and Acute cystitis with hematuria N30.01 [facility] [id number] [place] [address] 96774- 9919 July, [facility] [id number] [place] [address] 43112- 3224 July, Other complicated headache syndrome G44.59 [facility] [id number] [place] [address] 01340 -0374 Jun, Exposure to strep throat Z20.818 and Acute upper respiratory infection, unspecified J06.9 [facility] [id number] [place] [address] 77203- 7342 Jun, [facility] [id number] [place] [address] 01064- 1330 Jun, DM (diabetes mellitus) with complications E11.8 and Gastroesophageal reflux disease, esophagitis presence not specified K21.9 [facility] [id number] [place] [address] 85817- 4860 Jun, [facility] [id number] [place] [address] 30656- 6029 Jun, Dizziness R42 [facility] [id number] [place] [address] 89592 -5917 Jun, [place] [address], [place] [address]- 7310 Jun, [facility] [id number] [place] [address] 55521 -1917 May, Seasonal allergic rhinitis, unspecified allergic rhinitis trigger J30.2 [facility] [id number] [place] [address] 42450- 6515 May, [facility] [id number] [place] [address] 78978- 4054 May, DM (diabetes mellitus) with complications E11.8 [...] Seasonal allergic rhinitis due to pollen J30.1 [facility] [id number] [place] [address] 11296- 7906 May, Gastroesophageal reflux disease, esophagitis presence not specified K21.9 [facility] [id number] [place] [address] 27469- 4804 May, [facility] [id number] [place] [address] 62125- 1558 Apr, [facility] [id number] [place] [address] 90857- 2777 Apr, [facility] [id number] [place] [address] 19887- 7556 Mar, [facility] [id number] [place] [address] 69131- 3255 Mar, [facility] [id number] [place] [address] 41260- 9009 Mar, [facility] [id number] [place] [address] 22961- 8445 Mar, [facility] [id number] [place] [address] 68865- 9772 Feb, [facility] [id number] [place] [address] 30761- 6704 Feb, [facility] [id number] [place] [address] 92706- 8951 Feb, [facility] [id number] [place] [address] 21410- 8372 Feb, Major depressive disorder, recurrent episode, moderate F33.1 ; Generalized anxiety disorder F41.1 ; Essential hypertension I10 ; DM ( diabetes mellitus) with complications E11.8 ; Hyperlipidemia, unspecified hyperlipidemia type E78.5 ; 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 and Gastroesophageal reflux disease, esophagitis presence not specified K21.9 [facility] [id number] [place] [address] 42456 -5258 Feb, Other viral agents as the cause of diseases classified elsewhere B97.89 and Acute upper respiratory infection, unspecified J06.9 [place] [id number] [place] [address] 64420- 7399 Jan, [facility] [id number] [place] [address] 14545- 6361 Jan, [facility] [id number] [place] [address] 46929 -1370 Jan, Acute bronchitis, unspecified organism J20.9 [facility] [id number] [place] [address] 58797- 4480 Jan, [facility] [address] 75975- 6067 Jan, History of CVA with residual deficit I69.30 [facility] [id number] [place] [address] 99440- 1878 Jan, [facility] [id number] [place] [address] 06536- 7962 Jan, Acute bronchitis, unspecified organism J20.9 [place] [id number] [place] [address] 63519- 1136 Jan, [place] [id number] [place] [address] 22360- 5151 Dec, History of CVA with residual deficit I69.30 [place] [id number] [place] [address] 54539- 0418 Dec, [place] [id number] [place] [address] 80627- 8200 Dec, Other chronic pain G89.29 ; DM (diabetes mellitus) with complications E11.8 and History of CVA with residual deficit I69.30 [id number] [place] [address] 22724- 6376 Nov, Major depressive disorder, recurrent episode, moderate F33.1 ; Irregular heart rhythm I49.9 ; Essential hypertension I10 ; History of CVA with residual deficit I69.30 ; DM (diabetes mellitus) with complications E11.8 ; Gastroesophageal reflux disease, esophagitis presence not specified K21.9 ; Hyperlipidemia, unspecified hyperlipidemia type E78.5 ; 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 ; Other chronic pain G89.29 and Generalized anxiety disorder F41.[address] [place] [address] 24779- 6537 Oct, Generalized anxiety disorder F41.1 ; Major depressive disorder, recurrent episode, moderate F33.1 ; Essential hypertension I10 ; History of CVA with residual deficit I69.30 ; DM (diabetes mellitus) with complications E11.8 ; Gastroesophageal reflux disease, esophagitis presence not specified K21.9 ; Hyperlipidemia, unspecified hyperlipidemia type E78.5 ; Other chronic pain G89.29 and Bacterial conjunctivitis of left eye H10.9 [id number] [place] [address] 89385- 8644 Sep, Chronic pain syndrome G89.4 and DM (diabetes mellitus) with complications E11.[address] [id number] [address] 05 Sep, 2015 Irregular heart rhythm I49.9 ; Routine health maintenance Z00.00 ; Essential hypertension I10 ; History of CVA with residual deficit I69.30 ; Gastroesophageal reflux disease, esophagitis presence not specified K21.9 ; DM (diabetes mellitus) with complications E11.8 ; Hyperlipidemia, unspecified hyperlipidemia type E78.5 and Other complicated headache syndrome G44.59 [place] [address] [address]- 4213 Jun, [place] [id number] [place] [address] 86781- 2448 Jun, [place] [id number] [place] [address] 30719- 7686 Aug, [place] [address] [address]- 3223 Jun, IMMUNIZATIONS No Known Immunizations SOCIAL HISTORY Never Assessed REASON FOR VISIT med order PLAN OF CARE VITAL SIGNS MEDICATIONS Medication Instructions Dosage Frequency Start Date End Date Duration Status Ergocalciferol 92883 UNIT Orally once weekly 1 capsule July, Sep, 8 weeks Active RESULTS No Results PROCEDURES No Known procedures INSTRUCTIONS MEDICATIONS ADMINISTERED No Known Medications MEDICAL (GENERAL) HISTORY Type Description Date Medical History diabetes mellitus Medical History hyperlipidemia Medical History hypertension Medical History Anxiety disorder Medical History Blood Clotting Disorder- Dr Galvan at [facility] Medical History Possible Anemia (currently under work up) - Dr Galvan [facility] Medical History irregular heart beat-sees [...] Has been hospitalized at then transfered to [place]. 2014 Hospitalization History Child Hospitalization History abd pain and shakiness - [facility] ED visit [facility] Hospitalization History [facility] ED for URI 04/16/17 Hospitalization History via [facility] 08/16/17
--- OUTSIDE RECORDS SUMMARY | 2017-11-04 16:27 | XMS REPORT ---
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 Name Role Phone HUIZARSOTERO Cox Unavailable PROBLEMS Type Condition ICD9-CM Code LJB97-[id number] Code Onset Dates Condition Status SNOMED Code Problem Tobacco abuse Z72.0 Active 815165885 Problem Seasonal allergic rhinitis due to pollen J30.1 Active 75583966 Problem Tobacco abuse counseling Z71.6 Active 652856670 Problem Abnormal drug screen R89.2 Active 896644066 Problem Acute non intractable tension-type headache G44.209 Active 327061601 Problem retirement current use of insulin Z79.4 Active 262246502 Problem History of CVA with residual deficit I69.30 Active 174989812 Problem Chronic pain syndrome G89.4 Active 399533414 Problem Type 2 diabetes mellitus with hyperglycemia E11.65 Active 02977873 Problem Elevated liver enzymes R74.8 Active 286442576 Problem Generalized anxiety disorder F41.1 Active 79280272 Problem Vitamin D deficiency E55.9 Active 13079427 Problem Major depressive disorder, recurrent episode, moderate F33.1 Active 849843653 Problem Hyperlipidemia, unspecified hyperlipidemia type E78.5 Active 46905713 Problem Gastroesophageal reflux disease, esophagitis presence not specified K21.9 Active 774115790 Problem 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 Active 132466332 Problem Essential hypertension I10 Active 39910916 Problem DM (diabetes mellitus) with complications E11.8 Active 36693049 Problem Other chronic pain G89.29 Active 10062464 ALLERGIES Substance Reaction Event Type Date Status Penicillin V Potassium Unknown Drug Allergy July, Active Erythromycin Base Unknown Drug Allergy July, Active Codeine Unknown Drug Allergy July, Active ENCOUNTERS Encounter Location Date Diagnosis [facility] [address] [facility] [id number] [address] Oct, [facility] [address] [place] [id number] [place] [address] 50457- 4890 Oct, [facility] [id number] [place] [address] 47175- 7842 Oct, Controlled substance agreement broken Z91.14 ; Violation of controlled substance agreement Z91.14 ; Other chronic pain G89.29 and Generalized anxiety disorder F41.1 [place] [address] 23587- 7000 Oct, [facility] [address] 54510- 1625 Oct, [place] [address] 53312- 6019 Sep, Abscess L02.91 [place] [address] 07031- 2384 Sep, [place] [address] 95006- 6015 Sep, DM (diabetes mellitus) with complications E11.8 ; Generalized anxiety disorder F41.1 and Chronic pain syndrome G89.4 [place] [address] 07772- 0130 Sep, Generalized anxiety disorder F41.1 ; Chronic pain syndrome G89.4 ; Abnormal drug screen R89.2 and Other chest pain R07.89 [place] [address] [place] [id number] [place] [address] 16218- 5796 Aug, Dysuria R30.0 [place] [address] 39713- 3291 Aug, Generalized anxiety disorder F41.1 ; Chronic pain syndrome G89.4 and Dysuria R30.0 [place] [address] [place] [id number] [place] [address] 53776- 6477 Aug, Acute cystitis with hematuria N30.01 and Candidal dermatitis B37.2 [place] [address] 32357- 0710 Aug, Dysuria R30.0 [facility] [id number] [place] [address] 17372- 6163 Aug, 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 [place] [address] [id number] [place] [address] 44989- 7946 July, Generalized anxiety disorder F41.1 and Chronic pain syndrome G89.4 [place] [address] [place] [address] 38846- 8483 July, Abscess L02.91 [place] [address] [place] [id number] [place] [address] 13746- 0846 July, [place] [address] [place] [id number] [place] [address] 97852- 6276 July, [place] [id number] [place] [address] 37131- 2593 July, Type 2 diabetes mellitus with hyperglycemia E11.65 ; 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 ; Elevated [...] pain syndrome G89.4 and Vaginal candidiasis B37.3 [place] [address] [place] [id number] [place] [address] 72813- 4191 Jun, Generalized anxiety disorder F41.1 and Other chronic pain G89.29 [place] [address] [place] [id number] [place] [address] 05716- 9912 Jun, [place] [address] [id number] [place] [address] 44101- 5995 Jun, [place] [address] [place] [id number] [place] [address] 58846- 7332 Jun, Abnormal levels of other serum enzymes R74.8 [place] [address] 35634- 9713 Jun, Abnormal levels of other serum enzymes R74.8 [place] [address] [place] [id number] [place] [address] 92538- 8847 Jun, Elevated liver enzymes R74.8 [place] [address] [place] [id number] [place] [address] 89973- 5913 Jun, Elevated liver enzymes R74.8 [place] [address] [place] [id number] [place] [address] 36037- 6569 30 May, 2017 Right upper quadrant pain R10.11 ; Cervicalgia M54.2 and High risk medication use Z79.899 [place] [address] [place] [id number] [place] [address] 39781- 0615 May, Generalized anxiety disorder F41.1 and Other chronic pain G89.29 [place] [address] [place] [id number] [place] [address] 41970- 8075 May, Canker sores oral K12.0 [place] [address] [place] [id number] [place] [address] 06185- 8860 May, Generalized anxiety disorder F41.1 and Other chronic pain G89.29 [place] [address] [place] [id number] [place] [address] 75526- 4374 May, [facility] [id number] [place] [address] 97286- 3771 Apr, [facility] [id number] [place] [address] 65067 -3569 Apr, Acute cystitis with hematuria N30.01 and Dysuria R30.0 [facility] [address] 17469- 0504 Apr, [facility] [id number] [place] [address] 06688- 7552 Apr, [facility] [address] 66433- 8407 Apr, DM (diabetes mellitus) with complications E11.8 [place] [address] [place] [id number] [place] [address] 99404- 5593 06 Apr, 2017 DM (diabetes mellitus) with complications E11.8 [facility] [id number] [place] [address] 91715- 2716 Apr, [facility] [address] [place] [id number] [place] [address] 11804- 9815 Apr, [facility] [id number] [place] [address] 89427- 1561 Apr, Other chronic pain G89.29 ; Generalized anxiety disorder F41.1 ; Cervicalgia M54.2 and Controlled substance agreement signed Z79.899 [facility] [address] [place] [address] 82206 -5250 Mar, Abdominal pain R10.9 and Viral gastroenteritis A08.4 [facility] [id number] [place] [address] 93712- 5376 Mar, [facility] [id number] [place] [address] 74130- 1904 Mar, [facility] [id number] [place] [address] 78430- 7416 Mar, DM (diabetes mellitus) with complications E11.8 ; Type 2 diabetes mellitus with hyperglycemia E11.65 ; 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 ; Essential hypertension I10 ; Bronchitis J40 ; Major depressive disorder , recurrent episode, moderate F33.1 ; Hyperlipidemia, unspecified hyperlipidemia type E78.5 ; Tobacco abuse Z72.0 ; Tobacco abuse counseling Z71.6 ; History of CVA with residual deficit I69.30 ; Gastroesophageal reflux disease, esophagitis presence not specified K21.9 and 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 [place] [address] 19036- 2245 Mar, [place] [address] 28733- 9944 Mar, DM (diabetes mellitus) with complications E11.8 ; Abnormal lung sounds R09.89 ; Bronchitis J40 and Hyperlipidemia, unspecified hyperlipidemia type E78.5 [facility] [address] 96268 -7118 Mar, URI, acute J06.9 [place] [address] 28687- 7318 Mar, [place] [address] 81763- 8722 Mar, DM (diabetes mellitus) with complications E11.8 [place] [address] 27062- 0358 Mar, Other chronic pain G89.29 and Generalized anxiety disorder F41.1 [place] [address] 38435- 3050 Feb, [address] 34628- 6426 Feb, Mass of left lung R91.8 and Cervicalgia M54.2 [place] [address] 98255- 1500 Feb, [facility] [id number] [place] [address] 72609- 7541 Feb, [facility] [address] 68505 -4726 Feb, Cough R05 and Bronchitis J40 [facility] [address] 01730 -2982 07 Feb, 2017 Acute nasopharyngitis J00 and Bronchitis J40 [facility] [address] 81320- 0455 06 Feb, 2017 Other chronic pain G89.29 and Generalized anxiety disorder F41.1 [place] [address] 71764- 4541 29 Jan, 2017 Encounter for immunization Z23 [facility] [address] 73072 -2770 Jan, [facility] [address] 16614 -5794 18 Jan, 2017 [facility] [address] 97196- 8633 16 Jan, 2017 Canker sores oral K12.0 [facility] [address] 37859- 1368 14 Jan, 2017 [facility] [address] 38663- 2491 07 Jan, 2017 Other chronic pain G89.29 and Generalized anxiety disorder F41.1 [facility] [address] [id number] [place] [address] 28718- 5870 06 Jan, 2017 Cough R05 and Bronchitis J40 [facility] [address] 17292 -9534 04 Jan, 2017 Bronchitis J40 [facility] [id number] [place] [address] 48788- 5144 Dec, Vitamin D deficiency E55.9 [place] [address] [place] [id number] [place] [address] 17938- 1472 19 Dec, 2016 DM (diabetes mellitus) with complications E11.8 [place] [address] 93117- 5444 19 Dec, 2016 DM (diabetes mellitus) with complications E11.8 and Vitamin D deficiency E55.9 [place] [address] 11330- 8284 10 Dec, 2016 DM (diabetes mellitus) with complications E11.8 ; Essential hypertension I10 ; Hyperlipidemia, unspecified hyperlipidemia type E78.5 ; Vitamin D deficiency E55.9 ; Gastroesophageal reflux disease, esophagitis presence not specified K21.9 ; 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 ; Other chronic pain G89.29 ; Encounter for immunization Z23 and Generalized anxiety disorder F41.[address] 42514- 2379 12 Nov, 2016 History of CVA with residual deficit I69.[address] 57756- 7122 11 Nov, 2016 DM (diabetes mellitus) with complications E11.8 [place] [id number] [place] [address] 82025- 5118 06 Nov, 2016 Left otitis media with effusion H65.92 ; Bronchitis J40 and Canker sores oral K12.0 [place] [id number] [place] [address] 28008- 3311 14 Oct, 2016 [place] [id number] [place] [address] 58811- 7200 Oct, DM (diabetes mellitus) with complications E11.8 [place] [id number] [place] [address] 94474- 2602 Oct, [place] [id number] [place] [address] 04422- 1183 Sep, DM (diabetes mellitus) with complications E11.[address] [place] [address]- 2477 11 Sep, 2016 DM (diabetes mellitus) with complications E11.8 ; Essential hypertension I10 ; Gastroesophageal reflux disease, esophagitis presence not specified K21.9 ; Hyperlipidemia, unspecified hyperlipidemia type E78.5 ; Tobacco abuse Z72.0 ; Vitamin D deficiency E55.9 ; History of CVA with residual deficit I69.30 and Seasonal allergic rhinitis due to pollen J30.1 [place] [address] 73810- 5780 Sep, [place] [address] 29162- 9851 Aug, [facility] [address] 68775 -2652 Aug, Dysuria R30.0 ; Acute cystitis with hematuria N30.01 and Middle ear effusion, right H65.[address] 92772- 0088 Aug, Other complicated headache syndrome G44.59 [place] [address] [place] [id number] [place] [address] 88751- 1696 19 Aug, 2016 DM (diabetes mellitus) with complications E11.8 [place] [address] [place] [id number] [place] [address] 67863- 7834 14 Aug, 2016 Dysuria R30.0 [place] [address] [place] [id number] [place] [address] 25871- 9445 Aug, Dysuria R30.0 [place] [address] [place] [id number] [place] [address] 95375- 5440 Aug, [place] [address] 60421- 5690 July, [place] [address] [place] [id number] [place] [address] 92561- 9540 July, [place] [address] 80027- 5421 July, DM (diabetes mellitus) with complications E11.8 [facility] [id number] [place] [address] 98580- 0165 July, Other complicated headache syndrome G44.59 [facility] [id number] [place] [address] 21883- 0130 July, [facility] [id number] [place] [address] 53619 -9688 July, Dysuria R30.0 and Acute cystitis with hematuria N30.01 [facility] [id number] [place] [address] 19753- 2502 July, [facility] [address] [id number] [place] [address] 06435- 5684 July, Other complicated headache syndrome G44.59 [facility] [id number] [place] [address] 55013 -5697 Jun, Exposure to strep throat Z20.818 and Acute upper respiratory infection, unspecified J06.9 [facility] [id number] [place] [address] 20477- 7853 Jun, [facility] [id number] [place] [address] 77490- 8792 Jun, DM (diabetes mellitus) with complications E11.8 and Gastroesophageal reflux disease, esophagitis presence not specified K21.9 [facility] [id number] [place] [address] 82328- 5264 Jun, [facility] [id number] [place] [address] 47734- 1719 Jun, Dizziness R42 [facility] [id number] [place] [address] 80092 -4176 Jun, [facility] [id number] [place] [address] 42872- 8160 Jun, [facility] [id number] [place] [address] 88658 -8169 May, Seasonal allergic rhinitis, unspecified allergic rhinitis trigger J30.2 [facility] [id number] [place] [address] 55795- 2190 May, [facility] [id number] [place] [address] 07373- 8425 May, DM (diabetes mellitus) with complications E11.8 [...] Seasonal allergic rhinitis due to pollen J30.1 [facility] [id number] [place] [address] 08946- 2589 May, Gastroesophageal reflux disease, esophagitis presence not specified K21.9 [facility] [id number] [place] [address] 90814- 0010 May, [facility] [address] [id number] [place] [address] 38131- 6502 Apr, [facility] [address] [id number] [place] [address] 42929- 0276 Apr, [facility] [address] [place] [id number] [place] [address] 53272- 7238 Mar, [facility] [id number] [place] [address] 33101- 2107 Mar, [facility] [id number] [place] [address] 15198- 6827 Mar, [facility] [id number] [place] [address] 79078- 1399 Mar, [facility] [id number] [place] [address] 67076- 1508 Feb, [place] [address] [place] [id number] [place] [address] 69901- 4746 Feb, [place] [address] 54814- 5820 Feb, [place] [address] [place] [place] [id number] [place] [address] 80965- 4175 Feb, Major depressive disorder, recurrent episode, moderate F33.1 ; Generalized anxiety disorder F41.1 ; Essential hypertension I10 ; DM ( diabetes mellitus) with complications E11.8 ; Hyperlipidemia, unspecified hyperlipidemia type E78.5 ; 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 [place] [id number] [place] [address] 86575 -0720 Jan, Acute bronchitis, unspecified organism J20.9 [place] [address] [place] [id number] [place] [address] 49685- 3672 Jan, [place] [address] [id number] [place] [address] 27422- 6252 Jan, History of CVA with residual deficit I69.30 [place] [address] 32686- 7905 Jan, [place] [address] [place] [id number] [place] [address] 08010- 8761 Jan, Acute bronchitis, unspecified organism J20.9 [place] [address] 71539- 3343 Jan, [place] [address] [place] [id number] [address]- 0247 Dec, History of CVA with residual deficit I69.30 [place] [id number] [place] [address] 69741- 8497 Dec, [place] [id number] [place] [address] 34378- 2759 Dec, Other chronic pain G89.29 ; DM (diabetes mellitus) with complications E11.8 and History of CVA with residual deficit I69.30 [place] [id number] [place] [address] 10051- 7398 Nov, Major depressive disorder, recurrent episode, moderate F33.1 ; Irregular heart rhythm I49.9 ; Essential hypertension I10 ; History of CVA with residual deficit I69.30 ; DM (diabetes mellitus) with complications E11.8 ; Gastroesophageal reflux disease, esophagitis presence not specified K21.9 ; Hyperlipidemia, unspecified hyperlipidemia type E78.5 ; 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 ; Other chronic pain G89.29 and Generalized anxiety disorder F41.1 [place] [address] [place] [address] 13671- 7153 Oct, Generalized anxiety disorder F41.1 ; Major depressive disorder, recurrent episode, moderate F33.1 ; Essential hypertension I10 ; History of CVA with residual deficit I69.30 ; DM (diabetes mellitus) with complications E11.8 ; Gastroesophageal reflux disease, esophagitis presence not specified K21.9 ; Hyperlipidemia, unspecified hyperlipidemia type E78.5 ; Other chronic pain G89.29 and Bacterial conjunctivitis of left eye H10.9 [place] [address] [place] [address] 30281- 8233 Sep, Chronic pain syndrome G89.4 and DM (diabetes mellitus) with complications E11.8 [place] [id number] [place] [address] 06391- 3936 Sep, Irregular heart rhythm I49.9 ; Routine health maintenance Z00.00 ; Essential hypertension I10 ; History of CVA with residual deficit I69.30 ; Gastroesophageal reflux disease, esophagitis presence not specified K21.9 ; DM (diabetes mellitus) with complications E11.8 ; Hyperlipidemia, unspecified hyperlipidemia type E78.5 and Other complicated headache syndrome G44.59 [facility] [address] [facility] [id number] [place] [address]- 7141 14 Jun, 2014 [facility] [address] [id number] [address]- 5536 Jun, [facility] [id number] [address]- 3849 Aug, [place] [id number] [address]- 8071 Jun, IMMUNIZATIONS No Known Immunizations SOCIAL HISTORY Never Assessed REASON FOR VISIT Diabetes. Pt states that both legs are swelling in the evening. No self- treatment. Pt reports yeast infection. minnie PLAN OF CARE Activity Details Follow Up 3 Months, prn Reason:CHM/DM VITAL SIGNS Height 62 in 2017-08-02 Weight 198.6 lbs 2017-08-02 Temperature 97.4 degrees Fahrenheit 2017-08-02 Heart Rate 80 bpm 2017-08-02 Respiratory Rate 20 2017-08-02 BMI 36.32 kg/m2 2017-08-02 Blood pressure systolic 112 mmHg 2017-08-02 Blood pressure diastolic 64 mmHg 2017-08-02 MEDICATIONS Medication Instructions Dosage Frequency Start Date End Date Duration Status Onglyza 5 mg Orally Once a day 1 tablet 24h 90 days Active Bath/Shower Seat 1 please provide one adult shower seat for patient use one time shower/bath seat for bathing Dec, Active Walker - as directed Jan, Active Hydrochlorothiazide 25 MG Orally Once a day 1 tablet 24h 90 days Active Potassium Chloride ER 10 meq Orally Twice a day TAKE ONE TABLET BY MOUTH TWICE A DAY WITH FOOD 12h 90 Active Atorvastatin Calcium 80 MG Orally Once a day 1 tablet 24h 90 days Active OneTouch Delica Lancets 33G 33 TEST BLOOD SUGAR THREE TIMES A DAY E11.8 Active OneTouch Verio - TEST BLOOD SUGAR THREE TIMES A DAY E11.8 30 Active Levemir Flexpen 100 UNIT/ML Subcutaneous 2 times a day 35 units 12h 12 months Active Metoprolol Tartrate 25 MG Orally Twice a day 1 tablet with food 12h 90 days Active Lancets - Active Carafate 1 GM Orally Twice a day 1 tablet on an empty stomach 12h May, Not-Taking Diflucan 150 MG Orally Once a day 1 tablet today and may repeat in 10 days 24h July, 17 Jul, 2017 2 days Active Senna S 8.6-50 MG Orally twice a day 1 tablet 12h July, 90 days Active MetFORMIN HCl ER 750 MG Orally twice a day 1 tablet with meals 12h 90 days Active Test strips 8h Active ASA Oral Once a day 1 tab 24h Active Baclofen 20 mg Orally 2 times a day if needed 1 tablet with food or milk Feb, Oct, 30 day(s) Active Famotidine 20 mg Orally Twice a day 1 tablet 12h 21 Apr, 2017 90 days Active Diltiazem HCl ER 120 MG Orally Once a day 1 capsule on an empty stomach in the morning 24h 90 days Active Naproxen 500 mg Orally bid prn 1 tablet Sep, 90 days Active Pen [place] 31 gauge subcutaneously twice a day DX: E11.8 as directed Active BD Pen Needle Mini U/F 31 gauge USE ONCE DAILY WITH INSULIN PENS 90 Active Pantoprazole Sodium 20 mg Orally 2 times a day 1 tablets 12h May, 90 days Active Xanax 1 MG Orally 4 times a day 1 tablet 6h Active Hydrocodone-Acetaminophen 10-325 MG Orally every 6 hrs 1 tablet as needed 6h Jun, Active One Touch/One Touch II Starter 1 glucometer subcutaneously 3 times a day to take blood sugars daily Dispense as insurance allows 8h Sep, Active Plavix 75 MG Orally Once a day 1 tablet 24h 90 days Active RESULTS No Results PROCEDURES Procedure Date Ordered Result Body Site MICROALBUMIN, SEMIQUANT August 02, 2017 GLYCATED HEMOGLOBIN TEST August 02, 2017 VENIPUNCT, ROUTINE* August 02, 2017 [facility] August 02, 2017 [facility] VISIT ESTABLISHED PATIENT August 02, 2017 INSTRUCTIONS MEDICATIONS ADMINISTERED No Known Medications MEDICAL (GENERAL) HISTORY Type Description Date Medical History diabetes mellitus Medical History hyperlipidemia Medical History hypertension Medical History Anxiety disorder Medical History Blood Clotting Disorder- Dr Galvan at [facility] Medical History Possible Anemia (currently under work up) - Dr Galvan [facility] Medical History irregular heart beat-sees dr. hassan Medical History history of pancreatitis Medical History gerd Medical History History of CVA with residual deficit Medical History Other complicated headache syndrome Medical History Stokes syndrome Surgical History tubal ligation Surgical History section Surgical History cholecystectomy Surgical History Toe Nail Removal x2 Hospitalization History Brain Stem Strokes x5. Has been hospitalized at then transfered to [place]. 2015 Hospitalization History Child Hospitalization History abd pain and shakiness - [facility] ED visit [facility] Hospitalization History [facility] ED for URI 04/16/17 Hospitalization History via [facility] er 08/16/17
--- OUTSIDE RECORDS SUMMARY | 2017-11-04 16:28 | XMS REPORT ---
Author Author SOTERO HUIZAR [facility] Address [address] [place] [address] Care Team Providers Care Champagne Maker Name Role Phone HUIZARSOTERO Cox Unavailable PROBLEMS Type Condition ICD9-CM Code ICN54-OA Code Onset Dates Condition Status SNOMED Code Problem Tobacco abuse Z72.0 Active 060480603 Problem Seasonal allergic rhinitis due to pollen J30.1 Active 93044820 Problem Tobacco abuse counseling Z71.6 Active 248622916 Problem Abnormal drug screen R89.2 Active 831510476 Problem Acute non intractable tension-type headache G44.209 Active 966597010 Problem intermediate current use of insulin Z79.4 Active 497769161 Problem History of CVA with residual deficit I69.30 Active 122513590 Problem Chronic pain syndrome G89.4 Active 701679220 Problem Type 2 diabetes mellitus with hyperglycemia E11.65 Active 97755119 Problem Elevated liver enzymes R74.8 Active 023236577 Problem Generalized anxiety disorder F41.1 Active 70987077 Problem Vitamin D deficiency E55.9 Active 73436863 Problem Major depressive disorder, recurrent episode, moderate F33.1 Active 167508026 Problem Hyperlipidemia, unspecified hyperlipidemia type E78.5 Active 33160899 Problem Gastroesophageal reflux disease, esophagitis presence not specified K21.9 Active 721495121 Problem 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 Active 533866088 Problem Essential hypertension I10 Active 00138361 Problem DM (diabetes mellitus) with complications E11.8 Active 33503567 Problem Other chronic pain G89.29 Active 09668927 ALLERGIES No Information ENCOUNTERS Encounter Location Date Diagnosis [facility] [id number] [address] Oct, [facility] [id number] [address] Sep, Abscess L02.91 [facility] [id number] [place] [address] 85732- 4140 Sep, [place] [address] [address]3 Sep, DM (diabetes mellitus) with complications E11.8 ; Generalized anxiety disorder F41.1 and Chronic pain syndrome G89.4 [place] [address] 36857- 1130 Sep, Generalized anxiety disorder F41.1 ; Chronic pain syndrome G89.4 ; Abnormal drug screen R89.2 and Other chest pain R07.89 [place] [address] 62448- 5192 Aug, Dysuria R30.0 [place] [address] 34032- 7901 Aug, Generalized anxiety disorder F41.1 ; Chronic pain syndrome G89.4 and Dysuria R30.0 [place] [address] 66085- 1839 Aug, Acute cystitis with hematuria N30.01 and Candidal dermatitis B37.2 [place] [address] 15886- 0769 Aug, Dysuria R30.0 [place] [address] 52752- 2683 Aug, [facility] [id number] [place] [address] 46784 -7846 Aug, Dysuria R30.0 [place] [id number] [place] [address] 36459- 7444 Aug, [place] [address] 90185- 0600 July, Cervicalgia M54.2 ; Acute non intractable tension-type headache G44.209 ; Type 2 diabetes mellitus with hyperglycemia E11.65 and intermediate current use of insulin Z79.4 [place] [address] [place] [address] 59370- 4221 July, Generalized anxiety disorder F41.1 and Chronic pain syndrome G89.4 [place] [id number] [place] [address] 90950- 0057 July, Abscess L02.91 [place] [id number] [place] [address] 14501- 8139 July, [place] [id number] [place] [address] 78266- 2427 July, [place] [id number] [place] [address] 56610- 0122 July, Type 2 diabetes mellitus with hyperglycemia E11.65 ; intermediate current use of insulin Z79.4 ; Elevated [...] pain syndrome G89.4 and Vaginal candidiasis B37.3 [place] [id number] [place] [address] 74561- 3991 Jun, Generalized anxiety disorder F41.1 and Other chronic pain G89.29 [place] [address] [place] [address] 37674- 9001 Jun, [place] [id number] [place] [address] 91443- 6161 Jun, [place] [id number] [place] [address] 89334- 7199 Jun, Abnormal levels of other serum enzymes R74.8 [place] [id number] [place] [address] 82139- 8232 Jun, Abnormal levels of other serum enzymes R74.8 [facility] [id number] [place] [address] 85165- 6041 Jun, Elevated liver enzymes R74.8 [facility] [address] 22419- 9731 Jun, Elevated liver enzymes R74.8 [facility] [address] 64507- 0753 May, Right upper quadrant pain R10.11 ; Cervicalgia M54.2 and High risk medication use Z79.899 [facility] [address] 80996- 8227 May, Generalized anxiety disorder F41.1 and Other chronic pain G89.29 [facility] [address] 63210- 6533 May, Canker sores oral K12.0 [place] [address] 27931- 2400 May, Generalized anxiety disorder F41.1 and Other chronic pain G89.29 [facility] [address] 52869- 9241 May, [facility] [address] 89541- 7614 Apr, [facility] [address] 85908 -4217 Apr, Acute cystitis with hematuria N30.01 and Dysuria R30.0 [facility] [id number] [place] [address] 12400- 4006 Apr, [facility] [address] 73456- 7401 Apr, [facility] [id number] [place] [address] 96960- 8537 Apr, DM (diabetes mellitus) with complications E11.8 [facility] [id number] [place] [address] 12753- 2780 06 Apr, 2017 DM (diabetes mellitus) with complications E11.8 [facility] [id number] [place] [address] 53859- 8221 03 Apr, 2017 [facility] [address] 10288- 2738 Apr, [facility] [address] 78788- 7411 Apr, Other chronic pain G89.29 ; Generalized anxiety disorder F41.1 ; Cervicalgia M54.2 and Controlled substance agreement signed Z79.899 [facility] [id number] [place] [address] 86329 -2672 Mar, Abdominal pain R10.9 and Viral gastroenteritis A08.4 [place] [address] 27165- 7507 Mar, [place] [address] 71960- 9246 Mar, [place] [id number] [place] [address] 05715- 8342 Mar, DM (diabetes mellitus) with complications E11.8 ; Type 2 diabetes mellitus with hyperglycemia E11.65 ; 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.4 ; Essential hypertension I10 ; Bronchitis J40 ; Major depressive disorder , recurrent episode, moderate F33.1 ; Hyperlipidemia, unspecified hyperlipidemia type E78.5 ; Tobacco abuse Z72.0 ; Tobacco abuse counseling Z71.6 ; History of CVA with residual deficit I69.30 ; Gastroesophageal reflux disease, esophagitis presence not specified K21.9 and 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 [place] [id number] [place] [address] 16220- 4148 Mar, [facility] [address] 30956- 2869 Mar, DM (diabetes mellitus) with complications E11.8 ; Abnormal lung sounds R09.89 ; Bronchitis J40 and Hyperlipidemia, unspecified hyperlipidemia type E78.5 [facility] [address] 26482 -0300 Mar, URI, acute J06.9 [place] [address] 38252- 9528 Mar, [place] [address] 23282- 0468 Mar, DM (diabetes mellitus) with complications E11.8 [place] [address] 209730- 2419 Mar, Other chronic pain G89.29 and Generalized anxiety disorder F41.1 [place] [address] 60904- 5495 Feb, [place] [address] 20241- 3588 Feb, Mass of left lung R91.8 and Cervicalgia M54.2 [place] [address] 27233- 0884 Feb, [place] [address] 12343- 4680 Feb, [facility] [address] 47371 -8560 Feb, Cough R05 and Bronchitis J40 [facility] [place] [address] 21080 -4576 Feb, Acute nasopharyngitis J00 and Bronchitis J40 [place] [address] 37071- 4825 Feb, Other chronic pain G89.29 and Generalized anxiety disorder F41.1 [place] [address] 46114- 0584 Jan, Encounter for immunization Z23 [facility] [place] [address] 88257 -9277 Jan, [facility] IN [place] [address] 73378 -4013 Jan, [place] [address] 69325- 6982 Jan, Canker sores oral K12.0 [place] [address] 46876- 5884 14 Jan, 2017 [place] [address] 13943- 6309 07 Jan, 2017 Other chronic pain G89.29 and Generalized anxiety disorder F41.[address] 33843- 5386 06 Jan, 2017 Cough R05 and Bronchitis J40 [facility] IN [address] [address]21 Jan, Bronchitis J40 [place] [address] 87355- 3731 Dec, Vitamin D deficiency E55.9 [place] [address] 43190- 0418 Dec, DM (diabetes mellitus) with complications E11.8 [place] [address] 98916- 5007 Dec, DM (diabetes mellitus) with complications E11.8 and Vitamin D deficiency E55.9 [place] [address] 99120- 6372 Dec, DM (diabetes mellitus) with complications E11.8 ; Essential hypertension I10 ; Hyperlipidemia, unspecified hyperlipidemia type E78.5 ; Vitamin D deficiency E55.9 ; Gastroesophageal reflux disease, esophagitis presence not specified K21.9 ; 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 ; Other chronic pain G89.29 ; Encounter for immunization Z23 and Generalized anxiety disorder F41.1 [place] [id number] [place] [address] 64436- 4592 12 Nov, 2016 History of CVA with residual deficit I69.30 [place] [id number] [place] [address] 28964- 4929 Nov, DM (diabetes mellitus) with complications E11.8 [place] [address] 11124- 7649 06 Nov, 2016 Left otitis media with effusion H65.92 ; Bronchitis J40 and Canker sores oral K12.0 [place] [address] 36513- 1200 Oct, [place] [address] 67635- 4947 Oct, DM (diabetes mellitus) with complications E11.8 [place] [address] 07714- 8574 02 Oct, 2016 [place] [id number] [place] [address] 61184- 9738 Sep, DM (diabetes mellitus) with complications E11.8 [place] [id number] [place] [address] 67583- 8058 Sep, DM (diabetes mellitus) with complications E11.8 ; Essential hypertension I10 ; Gastroesophageal reflux disease, esophagitis presence not specified K21.9 ; Hyperlipidemia, unspecified hyperlipidemia type E78.5 ; Tobacco abuse Z72.0 ; Vitamin D deficiency E55.9 ; History of CVA with residual deficit I69.30 and Seasonal allergic rhinitis due to pollen J30.1 [place] [id number] [place] [address] 36014- 0119 Sep, [place] [id number] [place] [address] 42520- 6141 Aug, [facility] [id number] [place] [address] 00337 -8924 Aug, Dysuria R30.0 ; Acute cystitis with hematuria N30.01 and Middle ear effusion, right H65.91 [facility] [id number] [place] [address] 42249- 8806 Aug, Other complicated headache syndrome G44.59 [facility] [id number] [place] [address] 85722- 7296 Aug, DM (diabetes mellitus) with complications E11.8 [facility] [id number] [place] [address] 92382- 3160 14 Aug, 2016 Dysuria R30.0 [facility] [id number] [place] [address] 10291- 4436 Aug, Dysuria R30.0 [facility] [id number] [place] [address] 97947- 3731 Aug, [facility] [id number] [place] [address] 87481- 8600 July, [facility] [id number] [place] [address] 16417- 0315 July, [facility] [id number] [place] [address] 73090- 7027 July, DM (diabetes mellitus) with complications E11.8 [facility] [id number] [place] [address] 99077- 8165 July, Other complicated headache syndrome G44.59 [facility] [id number] [place] [address] 92560- 5512 July, [facility] [address] [place] [address] 78240 -0716 July, Dysuria R30.0 and Acute cystitis with hematuria N30.01 [facility] [id number] [place] [address] 95171- 1732 July, [facility] [id number] [place] [address] 91174- 9149 July, Other complicated headache syndrome G44.59 [facility] [id number] [place] [address] 39002 -4012 Jun, Exposure to strep throat Z20.818 and Acute upper respiratory infection, unspecified J06.9 [place] [id number] [place] [address] 56455- 7844 Jun, [place] [address] 07176- 6745 Jun, DM (diabetes mellitus) with complications E11.8 and Gastroesophageal reflux disease, esophagitis presence not specified K21.9 [place] [address] 57788- 9619 Jun, [place] [address] 72006- 1457 Jun, Dizziness R42 [facility] [place] [address] 83754 -2781 Jun, [place] [address] 07105- 8740 Jun, [facility] [place] [address] 22460 -9640 May, Seasonal allergic rhinitis, unspecified allergic rhinitis trigger J30.2 [place] [address] 48080- 4317 May, [place] [address] 56683- 6092 May, DM (diabetes mellitus) with complications E11.8 [...] Seasonal allergic rhinitis due to pollen J30.1 [place] [address] [address]- 5646 16 May, 2016 Gastroesophageal reflux disease, esophagitis presence not specified K21.9 [facility] [address] [address]- 0636 May, [facility] [address], [place] [address]- 0787 Apr, [facility] [id number] [place] [address] 16446- 0568 Apr, [facility] [address] [place] [address] 84295- 6696 Mar, [facility] [address] [place] [address] 44533- 7821 Mar, [facility] [address], [place] [address]- 9372 Mar, [facility] [id number] [address]- 5197 Mar, [facility] [address] [place] [address] 82320- 8808 Feb, [facility] [address], [place] [address]- 3620 Feb, [facility] [address], [place] [address]- 5106 Feb, [facility] [address], [place] [address]- 7801 Feb, Major depressive disorder, recurrent episode, moderate F33.1 ; Generalized anxiety disorder F41.1 ; Essential hypertension I10 ; DM ( diabetes mellitus) with complications E11.8 ; Hyperlipidemia, unspecified hyperlipidemia type E78.5 ; 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 and Gastroesophageal reflux disease, esophagitis presence not specified K21.9 [facility] [address], [place] [address]797 Feb, Other viral agents as the cause of diseases classified elsewhere B97.89 and Acute upper respiratory infection, unspecified J06.9 [facility] [address] [place] [address] 88991- 4934 Jan, [facility] [id number] [place] [address] 82288- 1824 Jan, [facility] [id number] [place] [address] 58611 -4581 Jan, Acute bronchitis, unspecified organism J20.9 [facility] [id number] [place] [address] 07303- 4055 Jan, [facility] [id number] [place] [address] 18169- 3974 Jan, History of CVA with residual deficit I69.30 [place] [id number] [place] [address] 79492- 7174 Jan, [facility] [id number] [place] [address] 46253- 4991 Jan, Acute bronchitis, unspecified organism J20.9 [facility] [id number] [place] [address] 54191- 5372 Jan, [facility] [id number] [place] [address] 03186- 2843 Dec, History of CVA with residual deficit I69.30 [place] [id number] [place] [address] 20388- 6513 Dec, [facility] [id number] [place] [address] 62164- 2699 Dec, Other chronic pain G89.29 ; DM (diabetes mellitus) with complications E11.8 and History of CVA with residual deficit I69.30 [place] [address] [place] [address] 28027- 8228 Nov, Major depressive disorder, recurrent episode, moderate F33.1 ; Irregular heart rhythm I49.9 ; Essential hypertension I10 ; History of CVA with residual deficit I69.30 ; DM (diabetes mellitus) with complications E11.8 ; Gastroesophageal reflux disease, esophagitis presence not specified K21.9 ; Hyperlipidemia, unspecified hyperlipidemia type E78.5 ; 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 ; Other chronic pain G89.29 and Generalized anxiety disorder F41.[address] [place] [address] 82577- 6314 Oct, Generalized anxiety disorder F41.1 ; Major depressive disorder, recurrent episode, moderate F33.1 ; Essential hypertension I10 ; History of CVA with residual deficit I69.30 ; DM (diabetes mellitus) with complications E11.8 ; Gastroesophageal reflux disease, esophagitis presence not specified K21.9 ; Hyperlipidemia, unspecified hyperlipidemia type E78.5 ; Other chronic pain G89.29 and Bacterial conjunctivitis of left eye H10.9 [place] [id number] [place] [address] 82935- 5794 Sep, Chronic pain syndrome G89.4 and DM (diabetes mellitus) with complications E11.8 [place] [id number] [place] [address] 52628- 0680 Sep, Irregular heart rhythm I49.9 ; Routine health maintenance Z00.00 ; Essential hypertension I10 ; History of CVA with residual deficit I69.30 ; Gastroesophageal reflux disease, esophagitis presence not specified K21.9 ; DM (diabetes mellitus) with complications E11.8 ; Hyperlipidemia, unspecified hyperlipidemia type E78.5 and Other complicated headache syndrome G44.59 [place] [id number] [place] [address] 29143- 9178 Jun, [place] [id number] [place] [address] 43829- 8565 Jun, [address] [address]60- 1318 Aug, [place] [id number] [place] [address] 36778- 1887 Jun, IMMUNIZATIONS No Known Immunizations SOCIAL HISTORY Never Assessed REASON FOR VISIT Medication refill request PLAN OF CARE VITAL SIGNS MEDICATIONS Medication Instructions Dosage Frequency Start Date End Date Duration Status Hydrocodone-Acetaminophen 10-325 MG Orally every 6 hrs 1 tablet as needed 6h Jun, 28 days Active Xanax 1 MG Orally 4 times a day 1 tablet 6h 28 days Active Senna S 8.6-50 MG Orally twice a day 1 tablet 12h 30 days Active RESULTS No Results PROCEDURES No Known procedures INSTRUCTIONS MEDICATIONS ADMINISTERED No Known Medications MEDICAL (GENERAL) HISTORY Type Description Date Medical History diabetes mellitus Medical History hyperlipidemia Medical History hypertension Medical History Anxiety disorder Medical History Blood Clotting Disorder- Dr Galvan at [facility] Medical History Possible Anemia (currently under work up) - Dr Galvan [facility] Medical History irregular heart beat-sees dr. hassan Medical History history of pancreatitis Medical History gerd Medical History History of CVA with residual deficit Medical History Other complicated headache syndrome Medical History Stokes syndrome Surgical History tubal ligation Surgical History section Surgical History cholecystectomy Surgical History Toe Nail Removal x2 Hospitalization History Brain Stem Strokes x5. Has been hospitalized at then transfered to [place]. 2014 Hospitalization History Child Hospitalization History abd pain and shakiness - [facility] ED visit [facility] [place] Hospitalization History [facility] ED for URI 04/16/17 Hospitalization History via [facility] er 08/16/17
--- OUTSIDE RECORDS SUMMARY | 2017-11-04 16:28 | XMS REPORT ---
Author Author SOTERO HUIZAR Organization [facility] Address [address] [place] [address] Care Team Providers Care Cardiopulmonary Technician And Eeg Tech Name Role Phone HUIZARSOTERO Cox Unavailable PROBLEMS Type Condition ICD9-CM Code IFT73-LJ Code Onset Dates Condition Status SNOMED Code Problem Tobacco abuse Z72.0 Active 257805658 Problem Seasonal allergic rhinitis due to pollen J30.1 Active 48955898 Problem Tobacco abuse counseling Z71.6 Active 174557809 Problem Abnormal drug screen R89.2 Active 850674550 Problem Acute non intractable tension-type headache G44.209 Active 122784685 Problem half-way current use of insulin Z79.4 Active 190099179 Problem History of CVA with residual deficit I69.30 Active 966159602 Problem Chronic pain syndrome G89.4 Active 372531378 Problem Type 2 diabetes mellitus with hyperglycemia E11.65 Active 85532816 Problem Elevated liver enzymes R74.8 Active 492045425 Problem Generalized anxiety disorder F41.1 Active 04160766 Problem Vitamin D deficiency E55.9 Active 36570741 Problem Major depressive disorder, recurrent episode, moderate F33.1 Active 004652178 Problem Hyperlipidemia, unspecified hyperlipidemia type E78.5 Active 95336620 Problem Gastroesophageal reflux disease, esophagitis presence not specified K21.9 Active 535193205 Problem 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 Active 895455304 Problem Essential hypertension I10 Active 33588699 Problem DM (diabetes mellitus) with complications E11.8 Active 76654287 Problem Other chronic pain G89.29 Active 34173821 ALLERGIES No Information ENCOUNTERS Encounter Location Date Diagnosis [facility] [address] [facility] [id number] [address] Oct, [facility] [address] [facility] [id number], [place] [address] Oct, [facility] [address] [place] [id number] [place] [address] 38682- 5233 Oct, Controlled substance agreement broken Z91.14 ; Violation of controlled substance agreement Z91.14 ; Other chronic pain G89.29 and Generalized anxiety disorder F41.1 [place] [address] [id number] [place] [address] 20613- 4796 Oct, [facility] [address] 64335- 0018 Oct, [facility] [address] 22298- 8098 Sep, Abscess L02.91 [place] [address] 24361- 9031 Sep, [place] [address] 02138- 5789 Sep, DM (diabetes mellitus) with complications E11.8 ; Generalized anxiety disorder F41.1 and Chronic pain syndrome G89.4 [place] [id number] [place] [address] 25747- 3523 Sep, Generalized anxiety disorder F41.1 ; Chronic pain syndrome G89.4 ; Abnormal drug screen R89.2 and Other chest pain R07.89 [place] [id number] [place] [address] 91750- 6091 Aug, Dysuria R30.0 [place] [address] 95152- 7757 Aug, Generalized anxiety disorder F41.1 ; Chronic pain syndrome G89.4 and Dysuria R30.0 [place] [address] 23553- 6842 Aug, Acute cystitis with hematuria N30.01 and Candidal dermatitis B37.2 [place] [address] [id number] [place] [address] 14888- 6845 Aug, Dysuria R30.0 [place] [address] [place] [address]- 5890 Aug, [facility] [address] 87670 -8394 Aug, Dysuria R30.0 [facility] [address] 47997- 5644 Aug, [place] [address] 37057- 6130 July, Cervicalgia M54.2 ; Acute non intractable tension-type headache G44.209 ; Type 2 diabetes mellitus with hyperglycemia E11.65 and meterman current use of insulin Z79.4 [place] [address] 83939- 2577 July, Generalized anxiety disorder F41.1 and Chronic pain syndrome G89.4 [place] [address] 24808- 4537 July, Abscess L02.91 [place] [address] 10815- 6245 July, [place] [address] 92605- 2348 July, [place] [address] 31985- 5458 July, Type 2 diabetes mellitus with hyperglycemia E11.65 ; meterman current use of insulin Z79.4 ; Elevated [...] pain syndrome G89.4 and Vaginal candidiasis B37.3 [place] [address] 08187- 4915 Jun, Generalized anxiety disorder F41.1 and Other chronic pain G89.29 [facility] [id number] [place] [address] 47421- 1017 Jun, [facility] [id number] [place] [address] 83181- 0064 Jun, [facility] [id number] [place] [address] 51746- 1516 Jun, Abnormal levels of other serum enzymes R74.8 [facility] [id number] [place] [address] 24033- 8117 Jun, Abnormal levels of other serum enzymes R74.8 [facility] [id number] [place] [address] 76469- 7510 Jun, Elevated liver enzymes R74.8 [facility] [id number] [place] [address] 07529- 9717 Jun, Elevated liver enzymes R74.8 [facility] [id number] [place] [address] 48181- 4749 May, Right upper quadrant pain R10.11 ; Cervicalgia M54.2 and High risk medication use Z79.899 [facility] [id number] [place] [address] 79005- 8562 May, Generalized anxiety disorder F41.1 and Other chronic pain G89.29 [facility] [id number] [place] [address] 95516- 6879 May, Canker sores oral K12.0 [facility] [id number] [place] [address] 31329- 0351 May, Generalized anxiety disorder F41.1 and Other chronic pain G89.29 [facility] [id number] [place] [address] 09958- 3983 May, [facility] [id number] [place] [address] 92593- 4145 Apr, [facility] [address] [place] [address] 49224 -7764 Apr, Acute cystitis with hematuria N30.01 and Dysuria R30.0 [facility] [id number] [place] [address] 03594- 0557 Apr, [place] [id number] [place] [address] 26787- 2085 Apr, [facility] [id number] [place] [address] 95734- 9154 Apr, DM (diabetes mellitus) with complications E11.8 [place] [id number] [place] [address] 33481- 6138 06 Apr, 2017 DM (diabetes mellitus) with complications E11.8 [place] [id number] [place] [address] 21476- 3424 03 Apr, 2017 [place] [id number] [place] [address] 32482- 5355 Apr, [place] [id number] [place] [address] 85380- 6074 Apr, Other chronic pain G89.29 ; Generalized anxiety disorder F41.1 ; Cervicalgia M54.2 and Controlled substance agreement signed Z79.899 [facility] [id number] [place] [address] 02342 -0523 Mar, Abdominal pain R10.9 and Viral gastroenteritis A08.4 [place] [id number] [place] [address] 78516- 7802 Mar, [place] [id number] [place] [address] 03495- 8408 Mar, [place] [id number] [place] [address] 75083- 4521 Mar, DM (diabetes mellitus) with complications E11.8 ; Type 2 diabetes mellitus with hyperglycemia E11.65 ; meterman current use of insulin Z79.4 ; Essential hypertension I10 ; Bronchitis J40 ; Major depressive disorder , recurrent episode, moderate F33.1 ; Hyperlipidemia, unspecified hyperlipidemia type E78.5 ; Tobacco abuse Z72.0 ; Tobacco abuse counseling Z71.6 ; History of CVA with residual deficit I69.30 ; Gastroesophageal reflux disease, esophagitis presence not specified K21.9 and 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 11767- 6359 Mar, [place] [address] 14262- 8403 Mar, DM (diabetes mellitus) with complications E11.8 ; Abnormal lung sounds R09.89 ; Bronchitis J40 and Hyperlipidemia, unspecified hyperlipidemia type E78.5 [facility] [address] 12424 -2472 Mar, URI, acute J06.9 [place] [address] 59233- 7999 Mar, [address] 42976- 9149 Mar, DM (diabetes mellitus) with complications E11.8 [place] [address] 16134- 1411 Mar, Other chronic pain G89.29 and Generalized anxiety disorder F41.1 [place] [address] 93933- 7155 Feb, [address] 64207- 5394 Feb, Mass of left lung R91.8 and Cervicalgia M54.2 [place] [address] 86023- 4394 Feb, [place] [address] 82195- 1447 Feb, [facility] [address] 99200 -6346 Feb, Cough R05 and Bronchitis J40 [facility] [address] 66701 -0339 07 Feb, 2017 Acute nasopharyngitis J00 and Bronchitis J40 [facility] [address] 88710- 0854 06 Feb, 2017 Other chronic pain G89.29 and Generalized anxiety disorder F41.1 [place] [address] 66335- 5396 29 Jan, 2017 Encounter for immunization Z23 [facility] [place] [address] 83395 -2920 Jan, [facility] [place] [address] 99607 -6459 18 Jan, 2017 [facility] [address] 56274- 6348 16 Jan, 2017 Canker sores oral K12.0 [place] [address] 72293- 2713 14 Jan, 2017 [place] [address] 70363- 9213 07 Jan, 2017 Other chronic pain G89.29 and Generalized anxiety disorder F41.1 [facility] [address] 28457- 2428 06 Jan, 2017 Cough R05 and Bronchitis J40 [facility] [address] 61881 -5843 Jan, Bronchitis J40 [place] [address] 59228- 6592 Dec, Vitamin D deficiency E55.9 [place] [address] 12246- 3128 Dec, DM (diabetes mellitus) with complications E11.8 [place] [id number] [place] [address] 09549- 0596 19 Dec, 2016 DM (diabetes mellitus) with complications E11.8 and Vitamin D deficiency E55.9 [place] [id number] [place] [address] 35763- 2234 10 Dec, 2016 DM (diabetes mellitus) with complications E11.8 ; Essential hypertension I10 ; Hyperlipidemia, unspecified hyperlipidemia type E78.5 ; Vitamin D deficiency E55.9 ; Gastroesophageal reflux disease, esophagitis presence not specified K21.9 ; 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 ; Other chronic pain G89.29 ; Encounter for immunization Z23 and Generalized anxiety disorder F41.1 [place] [address] 25064- 4888 12 Nov, 2016 History of CVA with residual deficit I69.[address] 90795- 2210 11 Nov, 2016 DM (diabetes mellitus) with complications E11.8 [place] [id number] [place] [address] 68254- 6230 06 Nov, 2016 Left otitis media with effusion H65.92 ; Bronchitis J40 and Canker sores oral K12.0 [place] [id number] [place] [address] 54956- 2014 14 Oct, 2016 [place] [address] 50190- 4107 Oct, DM (diabetes mellitus) with complications E11.8 [place] [id number] [place] [address] 58139- 1400 Oct, [place] [address] 28325- 7390 Sep, DM (diabetes mellitus) with complications E11.8 [place] [id number] [place] [address] 26950- 3990 Sep, DM (diabetes mellitus) with complications E11.8 ; Essential hypertension I10 ; Gastroesophageal reflux disease, esophagitis presence not specified K21.9 ; Hyperlipidemia, unspecified hyperlipidemia type E78.5 ; Tobacco abuse Z72.0 ; Vitamin D deficiency E55.9 ; History of CVA with residual deficit I69.30 and Seasonal allergic rhinitis due to pollen J30.1 [facility] [id number] [place] [address] 61930- 2103 Sep, [facility] [id number] [place] [address] 93301- 7980 Aug, [facility] [id number] [place] [address] 74934 -7652 Aug, Dysuria R30.0 ; Acute cystitis with hematuria N30.01 and Middle ear effusion, right H65.91 [place] [id number] [place] [address] 75453- 0500 Aug, Other complicated headache syndrome G44.59 [place] [id number] [place] [address] 26624- 0659 Aug, DM (diabetes mellitus) with complications E11.8 [place] [id number] [place] [address] 72912- 5449 14 Aug, 2016 Dysuria R30.0 [place] [id number] [place] [address] 91285- 2444 Aug, Dysuria R30.0 [place] [id number] [place] [address] 78982- 8202 Aug, [place] [id number] [place] [address] 19812- 3814 July, [place] [id number] [place] [address] 94654- 7589 July, [place] [id number] [place] [address] 84487- 2085 July, DM (diabetes mellitus) with complications E11.8 [place] [id number] [place] [address] 66062- 7331 July, Other complicated headache syndrome G44.59 [facility] [id number] [place] [address] 61790- 2872 July, [facility] [id number] [place] [address] 25768 -9885 July, Dysuria R30.0 and Acute cystitis with hematuria N30.01 [facility] [address] 33235- 5174 July, [facility] [address] 29019- 3455 July, Other complicated headache syndrome G44.59 [facility] [id number] [place] [address] 58379 -1652 Jun, Exposure to strep throat Z20.818 and Acute upper respiratory infection, unspecified J06.9 [facility] [address] 20610- 3475 Jun, [facility] [id number] [place] [address] 90718- 1431 Jun, DM (diabetes mellitus) with complications E11.8 and Gastroesophageal reflux disease, esophagitis presence not specified K21.9 [place] [id number] [place] [address] 78258- 5539 Jun, [facility] [id number] [place] [address] 66493- 5000 Jun, Dizziness R42 [facility] [id number] [place] [address] 10027 -4910 Jun, [facility] [address] 24085- 2326 Jun, [facility] [id number] [place] [address] 92042 -0384 May, Seasonal allergic rhinitis, unspecified allergic rhinitis trigger J30.2 [place] [id number] [place] [address] 34435- 4378 May, [facility] [id number] [place] [address] 64147- 6208 May, DM (diabetes mellitus) with complications E11.8 [...] Seasonal allergic rhinitis due to pollen J30.1 [facility] [address] 16186- 2963 May, Gastroesophageal reflux disease, esophagitis presence not specified K21.9 [facility] [id number] [place] [address] 08146- 4030 May, [facility] [id number] [place] [address] 71687- 0634 Apr, [facility] [id number] [place] [address] 20286- 4443 Apr, [facility] [id number] [place] [address] 78600- 9347 Mar, [place] [id number] [place] [address] 78057- 0830 Mar, [facility] [id number] [place] [address] 05041- 0456 Mar, [facility] [id number] [place] [address] 90915- 2279 Mar, [facility] [id number] [place] [address] 32233235- 8533 Feb, [facility] [id number] [place] [address] 66604- 5155 Feb, [place] [place] [id number] [place] [address] 96219- 7041 Feb, [place] [address] 77161- 9579 Feb, Major depressive disorder, recurrent episode, moderate F33.1 ; Generalized anxiety disorder F41.1 ; Essential hypertension I10 ; DM ( diabetes mellitus) with complications E11.8 ; Hyperlipidemia, unspecified hyperlipidemia type E78.5 ; 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 and Gastroesophageal reflux disease, esophagitis presence not specified K21.9 [facility] [id number] [place] [address] 14950 -4989 Feb, Other viral agents as the cause of diseases classified elsewhere B97.89 and Acute upper respiratory infection, unspecified J06.9 [place] [address] [place] [address] [id number] [place] [address] 87129- 8868 Jan, [place] [address] 02098- 6716 Jan, [facility] [id number] [place] [address] 45392 -2837 Jan, Acute bronchitis, unspecified organism J20.9 [place] [address] [address] [id number] [place] [address] 53500- 0824 Jan, [place] [address] [address] [id number] [place] [address] 75359- 0528 Jan, History of CVA with residual deficit I69.30 [place] [address] [address] [id number] [place] [address] 17877- 5610 Jan, [place] [address] 36822- 1229 Jan, Acute bronchitis, unspecified organism J20.9 [place] [address] [address] [id number] [place] [address] 03706- 3816 Jan, [place] [address] 02299- 6251 Dec, History of CVA with residual deficit I69.30 [place] [address] [place] [address] 69676- 0204 Dec, [place] [address] [address] [id number] [place] [address] 15874- 6834 Dec, Other chronic pain G89.29 ; DM (diabetes mellitus) with complications E11.8 and History of CVA with residual deficit I69.30 [place] [address] [id number] [place] [address] 70025- 5967 Nov, Major depressive disorder, recurrent episode, moderate F33.1 ; Irregular heart rhythm I49.9 ; Essential hypertension I10 ; History of CVA with residual deficit I69.30 ; DM (diabetes mellitus) with complications E11.8 ; Gastroesophageal reflux disease, esophagitis presence not specified K21.9 ; Hyperlipidemia, unspecified hyperlipidemia type E78.5 ; 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 ; Other chronic pain G89.29 and Generalized anxiety disorder F41.1 [place] [id number] [place] [address] 74126- 1450 Oct, Generalized anxiety disorder F41.1 ; Major depressive disorder, recurrent episode, moderate F33.1 ; Essential hypertension I10 ; History of CVA with residual deficit I69.30 ; DM (diabetes mellitus) with complications E11.8 ; Gastroesophageal reflux disease, esophagitis presence not specified K21.9 ; Hyperlipidemia, unspecified hyperlipidemia type E78.5 ; Other chronic pain G89.29 and Bacterial conjunctivitis of left eye H10.9 [place] [address] [place] [address] 96574- 5609 Sep, Chronic pain syndrome G89.4 and DM (diabetes mellitus) with complications E11.8 [place] [id number] [place] [address] 11395- 9232 Sep, Irregular heart rhythm I49.9 ; Routine health maintenance Z00.00 ; Essential hypertension I10 ; History of CVA with residual deficit I69.30 ; Gastroesophageal reflux disease, esophagitis presence not specified K21.9 ; DM (diabetes mellitus) with complications E11.8 ; Hyperlipidemia, unspecified hyperlipidemia type E78.5 and Other complicated headache syndrome G44.59 [facility] [address] [id number] [address]- 6831 14 Jun, 2014 [facility] [id number] [address]- 2529 Jun, [facility] [address] [id number] [address]- 0022 Aug, [facility] [address] [id number] [address]- 5796 Jun, IMMUNIZATIONS No Known Immunizations SOCIAL HISTORY Never Assessed REASON FOR VISIT medication question PLAN OF CARE VITAL SIGNS MEDICATIONS Unknown Medications RESULTS No Results PROCEDURES No Known procedures INSTRUCTIONS MEDICATIONS ADMINISTERED No Known Medications MEDICAL (GENERAL) HISTORY Type Description Date Medical History diabetes mellitus Medical History hyperlipidemia Medical History hypertension Medical History Anxiety disorder Medical History Blood Clotting Disorder- Dr Galvan at [facility] Medical History Possible Anemia (currently under work up) - Dr Galvan [facility] Medical History irregular heart beat-sees dr. hassan Medical History history of pancreatitis Medical History gerd Medical History History of CVA with residual deficit Medical History Other complicated headache syndrome Medical History Stokes syndrome Surgical History tubal ligation Surgical History section Surgical History cholecystectomy Surgical History Toe Nail Removal x2 Hospitalization History Brain Stem Strokes x5. Has been hospitalized at then transfered to [place]. 2014 Hospitalization History Child Hospitalization History abd pain and shakiness - [facility] ED visit [facility] Hospitalization History [facility] ED for URI 04/16/17 Hospitalization History via [facility] 08/16/17
--- OUTSIDE RECORDS SUMMARY | 2017-11-04 16:29 | XMS REPORT ---
Author Author SOTERO HUIZAR [facility] Address [address] [place] [address] Care Team Providers Care Machine Engraver Name Role Phone HUIZARSOTERO Cox Unavailable PROBLEMS Type Condition ICD9-CM Code TTJ57-GC Code Onset Dates Condition Status SNOMED Code Problem Tobacco abuse Z72.0 Active 781538822 Problem Seasonal allergic rhinitis due to pollen J30.1 Active 38534607 Problem Tobacco abuse counseling Z71.6 Active 217093601 Problem Abnormal drug screen R89.2 Active 092875280 Problem Acute non intractable tension-type headache G44.209 Active 349612354 Problem snf current use of insulin Z79.4 Active 609475403 Problem History of CVA with residual deficit I69.30 Active 211108334 Problem Chronic pain syndrome G89.4 Active 943925819 Problem Type 2 diabetes mellitus with hyperglycemia E11.65 Active 72409965 Problem Elevated liver enzymes R74.8 Active 388837827 Problem Generalized anxiety disorder F41.1 Active 11550675 Problem Vitamin D deficiency E55.9 Active 67622168 Problem Major depressive disorder, recurrent episode, moderate F33.1 Active 324631728 Problem Hyperlipidemia, unspecified hyperlipidemia type E78.5 Active 34417025 Problem Gastroesophageal reflux disease, esophagitis presence not specified K21.9 Active 700070710 Problem 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 Active 480908461 Problem Essential hypertension I10 Active 36105465 Problem DM (diabetes mellitus) with complications E11.8 Active 58790894 Problem Other chronic pain G89.29 Active 51058515 ALLERGIES No Information ENCOUNTERS Encounter Location Date Diagnosis [facility] [id number] [address] Oct, [facility] [id number], [place] [address]7 Sep, Abscess L02.91 [facility] [id number] [place] [address] 85688- 4492 Sep, [place] [address] 37831- 6768 Sep, DM (diabetes mellitus) with complications E11.8 ; Generalized anxiety disorder F41.1 and Chronic pain syndrome G89.4 [place] [address] 08235- 8561 Sep, Generalized anxiety disorder F41.1 ; Chronic pain syndrome G89.4 ; Abnormal drug screen R89.2 and Other chest pain R07.89 [place] [address] 27843- 0998 Aug, Dysuria R30.0 [place] [address] 94000- 1881 Aug, Generalized anxiety disorder F41.1 ; Chronic pain syndrome G89.4 and Dysuria R30.0 [place] [address] 57606- 0540 Aug, Acute cystitis with hematuria N30.01 and Candidal dermatitis B37.2 [place] [address] 69149- 7142 Aug, Dysuria R30.0 [place] [address] 42860- 7341 Aug, [facility] [id number] [place] [address] 04787 -3177 Aug, Dysuria R30.0 [place] [id number] [place] [address] 65550- 0881 Aug, [place] [address] 79626- 0524 July, Cervicalgia M54.2 ; Acute non intractable tension-type headache G44.209 ; Type 2 diabetes mellitus with hyperglycemia E11.65 and snf current use of insulin Z79.4 [place] [id number] [place] [address] 58816- 5295 July, Generalized anxiety disorder F41.1 and Chronic pain syndrome G89.4 [place] [id number] [place] [address] 25239- 2487 July, Abscess L02.91 [place] [id number] [place] [address] 33234- 7017 July, [place] [id number] [place] [address] 91921- 6170 July, [place] [id number] [place] [address] 87907- 5940 July, Type 2 diabetes mellitus with hyperglycemia E11.65 ; snf current use of insulin Z79.4 ; Elevated [...] pain syndrome G89.4 and Vaginal candidiasis B37.3 [place] [id number] [place] [address] 05404- 1402 Jun, Generalized anxiety disorder F41.1 and Other chronic pain G89.29 [place] [id number] [place] [address] 11106- 7557 Jun, [place] [id number] [place] [address] 73891- 4333 Jun, [place] [id number] [place] [address] 42343- 7912 Jun, Abnormal levels of other serum enzymes R74.8 [place] [id number] [place] [address] 67995- 0187 Jun, Abnormal levels of other serum enzymes R74.8 [facility] [id number] [place] [address] 31823- 9195 Jun, Elevated liver enzymes R74.8 [facility] [address] 93538- 0550 Jun, Elevated liver enzymes R74.8 [facility] [address] 05792- 8356 May, Right upper quadrant pain R10.11 ; Cervicalgia M54.2 and High risk medication use Z79.899 [facility] [address] 49390- 7005 May, Generalized anxiety disorder F41.1 and Other chronic pain G89.29 [facility] [address] 08031- 9082 May, Canker sores oral K12.0 [place] [address] 79938- 8372 May, Generalized anxiety disorder F41.1 and Other chronic pain G89.29 [facility] [address] 25089- 3759 May, [facility] [address] 36489- 4846 Apr, [facility] [address] 51512 -3055 Apr, Acute cystitis with hematuria N30.01 and Dysuria R30.0 [facility] [id number] [place] [address] 06283- 1585 Apr, [facility] [address] 78155- 8103 Apr, [facility] [id number] [place] [address] 13172- 2827 Apr, DM (diabetes mellitus) with complications E11.8 [facility] [id number] [place] [address] 14536- 7971 06 Apr, 2017 DM (diabetes mellitus) with complications E11.8 [facility] [id number] [place] [address] 97995- 3907 03 Apr, 2017 [facility] [address] 21673- 0296 Apr, [facility] [address] 77912- 6701 Apr, Other chronic pain G89.29 ; Generalized anxiety disorder F41.1 ; Cervicalgia M54.2 and Controlled substance agreement signed Z79.899 [facility] [id number] [place] [address] 13009 -1604 Mar, Abdominal pain R10.9 and Viral gastroenteritis A08.4 [place] [address] 11378- 0458 Mar, [place] [address] 50819- 5594 Mar, [place] [id number] [place] [address] 73733- 6988 Mar, DM (diabetes mellitus) with complications E11.8 ; Type 2 diabetes mellitus with hyperglycemia E11.65 ; 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.4 ; Essential hypertension I10 ; Bronchitis J40 ; Major depressive disorder , recurrent episode, moderate F33.1 ; Hyperlipidemia, unspecified hyperlipidemia type E78.5 ; Tobacco abuse Z72.0 ; Tobacco abuse counseling Z71.6 ; History of CVA with residual deficit I69.30 ; Gastroesophageal reflux disease, esophagitis presence not specified K21.9 and 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 [place] [id number] [place] [address] 91670- 5036 Mar, [facility] [address] 61474- 9842 Mar, DM (diabetes mellitus) with complications E11.8 ; Abnormal lung sounds R09.89 ; Bronchitis J40 and Hyperlipidemia, unspecified hyperlipidemia type E78.5 [facility] [address] 27657 -8195 Mar, URI, acute J06.9 [place] [address] 92414- 5879 Mar, [place] [address] 37623- 9088 Mar, DM (diabetes mellitus) with complications E11.8 [place] [address] 629450- 6485 Mar, Other chronic pain G89.29 and Generalized anxiety disorder F41.1 [place] [address] 75056- 6933 Feb, [place] [address] 14664- 9954 Feb, Mass of left lung R91.8 and Cervicalgia M54.2 [place] [address] 39962- 0924 Feb, [place] [address] 70906- 9805 Feb, [facility] [address] 18959 -7668 Feb, Cough R05 and Bronchitis J40 [facility] [place] [address] 73016 -3021 Feb, Acute nasopharyngitis J00 and Bronchitis J40 [place] [address] 12805- 1223 Feb, Other chronic pain G89.29 and Generalized anxiety disorder F41.1 [place] [address] 36642- 6150 Jan, Encounter for immunization Z23 [facility] [place] [address] 19785 -7336 Jan, [facility] [place] [address] 64814 -0525 Jan, [place] [address] 27797- 8262 Jan, Canker sores oral K12.0 [place] [address] 34256- 8517 14 Jan, 2017 [place] [address] 66802- 0782 07 Jan, 2017 Other chronic pain G89.29 and Generalized anxiety disorder F41.[address] 52739- 5110 06 Jan, 2017 Cough R05 and Bronchitis J40 [facility] [address] 14613 -[address]59 Jan, Bronchitis J40 [place] [address] 58900- 1342 Dec, Vitamin D deficiency E55.9 [place] [address] 61791- 5877 Dec, DM (diabetes mellitus) with complications E11.8 [place] [address] 02680- 3255 Dec, DM (diabetes mellitus) with complications E11.8 and Vitamin D deficiency E55.9 [place] [address] 96566- 8926 Dec, DM (diabetes mellitus) with complications E11.8 ; Essential hypertension I10 ; Hyperlipidemia, unspecified hyperlipidemia type E78.5 ; Vitamin D deficiency E55.9 ; Gastroesophageal reflux disease, esophagitis presence not specified K21.9 ; 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 ; Other chronic pain G89.29 ; Encounter for immunization Z23 and Generalized anxiety disorder F41.1 [place] [id number] [place] [address] 96293- 1058 12 Nov, 2016 History of CVA with residual deficit I69.30 [place] [id number] [place] [address] 68462- 4138 Nov, DM (diabetes mellitus) with complications E11.8 [place] [address] 56006- 9134 06 Nov, 2016 Left otitis media with effusion H65.92 ; Bronchitis J40 and Canker sores oral K12.0 [place] [address] 31257- 2734 Oct, [place] [address] 13535- 5819 Oct, DM (diabetes mellitus) with complications E11.8 [place] [address] 75111- 8001 02 Oct, 2016 [place] [id number] [place] [address] 16001- 2985 Sep, DM (diabetes mellitus) with complications E11.8 [place] [id number] [place] [address] 81627- 4858 Sep, DM (diabetes mellitus) with complications E11.8 ; Essential hypertension I10 ; Gastroesophageal reflux disease, esophagitis presence not specified K21.9 ; Hyperlipidemia, unspecified hyperlipidemia type E78.5 ; Tobacco abuse Z72.0 ; Vitamin D deficiency E55.9 ; History of CVA with residual deficit I69.30 and Seasonal allergic rhinitis due to pollen J30.1 [place] [id number] [place] [address] 24478- 1883 Sep, [place] [id number] [place] [address] 66126- 2045 Aug, [facility] [id number] [place] [address] 21463 -6145 Aug, Dysuria R30.0 ; Acute cystitis with hematuria N30.01 and Middle ear effusion, right H65.91 [facility] [id number] [place] [address] 15491- 1166 Aug, Other complicated headache syndrome G44.59 [facility] [id number] [place] [address] 73530- 5166 Aug, DM (diabetes mellitus) with complications E11.8 [facility] [id number] [place] [address] 90139- 6099 14 Aug, 2016 Dysuria R30.0 [facility] [id number] [place] [address] 47895- 9006 Aug, Dysuria R30.0 [facility] [id number] [place] [address] 04914- 9661 Aug, [facility] [id number] [place] [address] 52161- 7069 July, [facility] [id number] [place] [address] 11105- 2173 July, [facility] [id number] [place] [address] 46483- 5573 July, DM (diabetes mellitus) with complications E11.8 [facility] [id number] [place] [address] 47787- 5013 July, Other complicated headache syndrome G44.59 [facility] [id number] [place] [address] 81108- 9086 July, [facility] [id number] [place] [address] 85521 -4102 July, Dysuria R30.0 and Acute cystitis with hematuria N30.01 [facility] [id number] [place] [address] 44076- 0420 July, [facility] [id number] [place] [address] 02175- 8866 July, Other complicated headache syndrome G44.59 [facility] [id number] [place] [address] 66580 -9177 Jun, Exposure to strep throat Z20.818 and Acute upper respiratory infection, unspecified J06.9 [place] [id number] [place] [address] 65109- 9499 Jun, [place] [address] 97854- 9248 Jun, DM (diabetes mellitus) with complications E11.8 and Gastroesophageal reflux disease, esophagitis presence not specified K21.9 [place] [address] 40220- 0469 Jun, [place] [address] 75498- 4762 Jun, Dizziness R42 [facility] [place] [address] 24342 -9105 Jun, [place] [address] 71764- 1201 Jun, [facility] [place] [address] 94851 -3554 May, Seasonal allergic rhinitis, unspecified allergic rhinitis trigger J30.2 [place] [address] 97474- 3210 May, [place] [address] 75729- 3333 May, DM (diabetes mellitus) with complications E11.8 [...] Seasonal allergic rhinitis due to pollen J30.1 [place] [address], [place] [address]- 6253 16 May, 2016 Gastroesophageal reflux disease, esophagitis presence not specified K21.9 [facility] [address], [place] [address]- 6143 May, [facility] [address], [place] [address]- 0533 Apr, [facility] [id number] [place] [address] 07039- 8067 Apr, [facility] [id number] [place] [address] 44699- 4071 Mar, [facility] [id number] [place] [address] 09342- 0221 Mar, [facility] [address], [place] [address]- 2680 Mar, [facility] [id number] [address]- 5918 Mar, [facility] [id number] [place] [address] 09464- 0207 Feb, [facility] [address], [place] [address]- 4528 Feb, [facility] [address], [place] [address]- 8314 Feb, [facility] [address], [place] [address]- 5529 Feb, Major depressive disorder, recurrent episode, moderate F33.1 ; Generalized anxiety disorder F41.1 ; Essential hypertension I10 ; DM ( diabetes mellitus) with complications E11.8 ; Hyperlipidemia, unspecified hyperlipidemia type E78.5 ; 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 and Gastroesophageal reflux disease, esophagitis presence not specified K21.9 [facility] [address], [place] [address] -[address]06 Feb, Other viral agents as the cause of diseases classified elsewhere B97.89 and Acute upper respiratory infection, unspecified J06.9 [facility] [address] [place] [address] 08052- 1747 Jan, [facility] [id number] [place] [address] 29994- 4489 Jan, [facility] [id number] [place] [address] 32681 -1876 Jan, Acute bronchitis, unspecified organism J20.9 [facility] [id number] [place] [address] 99448- 6821 Jan, [facility] [id number] [place] [address] 84264- 8943 Jan, History of CVA with residual deficit I69.30 [place] [id number] [place] [address] 50789- 9834 Jan, [facility] [id number] [place] [address] 38961- 6373 Jan, Acute bronchitis, unspecified organism J20.9 [facility] [id number] [place] [address] 16559- 7088 Jan, [facility] [id number] [place] [address] 04768- 9144 Dec, History of CVA with residual deficit I69.30 [place] [id number] [place] [address] 76573- 5369 Dec, [facility] [id number] [place] [address] 64352- 1663 Dec, Other chronic pain G89.29 ; DM (diabetes mellitus) with complications E11.8 and History of CVA with residual deficit I69.30 [place] [id number] [place] [address] 81473- 4214 Nov, Major depressive disorder, recurrent episode, moderate F33.1 ; Irregular heart rhythm I49.9 ; Essential hypertension I10 ; History of CVA with residual deficit I69.30 ; DM (diabetes mellitus) with complications E11.8 ; Gastroesophageal reflux disease, esophagitis presence not specified K21.9 ; Hyperlipidemia, unspecified hyperlipidemia type E78.5 ; 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 ; Other chronic pain G89.29 and Generalized anxiety disorder F41.1 [id number] [place] [address] 13783- 4465 Oct, Generalized anxiety disorder F41.1 ; Major depressive disorder, recurrent episode, moderate F33.1 ; Essential hypertension I10 ; History of CVA with residual deficit I69.30 ; DM (diabetes mellitus) with complications E11.8 ; Gastroesophageal reflux disease, esophagitis presence not specified K21.9 ; Hyperlipidemia, unspecified hyperlipidemia type E78.5 ; Other chronic pain G89.29 and Bacterial conjunctivitis of left eye H10.9 [place] [id number] [place] [address] 17381- 3413 Sep, Chronic pain syndrome G89.4 and DM (diabetes mellitus) with complications E11.8 [place] [id number] [place] [address] 05028- 2598 Sep, Irregular heart rhythm I49.9 ; Routine health maintenance Z00.00 ; Essential hypertension I10 ; History of CVA with residual deficit I69.30 ; Gastroesophageal reflux disease, esophagitis presence not specified K21.9 ; DM (diabetes mellitus) with complications E11.8 ; Hyperlipidemia, unspecified hyperlipidemia type E78.5 and Other complicated headache syndrome G44.59 [place] [id number] [place] [address] 53726- 1483 Jun, [place] [id number] [place] [address] 75607- 6696 Jun, [address] 58756- 2473 Aug, [place] [id number] [place] [address] 11880- 0012 Jun, IMMUNIZATIONS No Known Immunizations SOCIAL HISTORY Never Assessed REASON FOR VISIT Requests return call PLAN OF CARE VITAL SIGNS MEDICATIONS Unknown Medications RESULTS No Results PROCEDURES No Known procedures INSTRUCTIONS MEDICATIONS ADMINISTERED No Known Medications MEDICAL (GENERAL) HISTORY Type Description Date Medical History diabetes mellitus Medical History hyperlipidemia Medical History hypertension Medical History Anxiety disorder Medical History Blood Clotting Disorder- Dr Galvan at [facility] Medical History Possible Anemia (currently under work up) - Dr Galvan [facility] Medical History irregular heart beat-sees dr. hassan Medical History history of pancreatitis Medical History gerd Medical History History of CVA with residual deficit Medical History Other complicated headache syndrome Medical History Stokes syndrome Surgical History tubal ligation Surgical History section Surgical History cholecystectomy Surgical History Toe Nail Removal x2 Hospitalization History Brain Stem Strokes x5. Has been hospitalized at then transfered to [facility] 2014 Hospitalization History Child Hospitalization History abd pain and shakiness - [facility] ED visit [facility] Hospitalization History [facility] ED for URI 04/16/17 Hospitalization History via [facility] 08[facility]16/17
--- OUTSIDE RECORDS SUMMARY | 2017-11-04 16:29 | XMS REPORT ---
Author Author SOTERO HUIZAR [facility] Address [address] [place] [address] Care Team Providers Care Shop Repairer Name Role Phone HUIZARSOTERO Cox Unavailable PROBLEMS Type Condition ICD9-CM Code LOP44-FI Code Onset Dates Condition Status SNOMED Code Problem Tobacco abuse Z72.0 Active 218066644 Problem Seasonal allergic rhinitis due to pollen J30.1 Active 05706123 Problem Tobacco abuse counseling Z71.6 Active 869410873 Problem Abnormal drug screen R89.2 Active 310928506 Problem Acute non intractable tension-type headache G44.209 Active 514903126 Problem skilled nursing current use of insulin Z79.4 Active 929175453 Problem History of CVA with residual deficit I69.30 Active 476262557 Problem Chronic pain syndrome G89.4 Active 630990598 Problem Type 2 diabetes mellitus with hyperglycemia E11.65 Active 67741494 Problem Elevated liver enzymes R74.8 Active 995721677 Problem Generalized anxiety disorder F41.1 Active 14492599 Problem Vitamin D deficiency E55.9 Active 80831663 Problem Major depressive disorder, recurrent episode, moderate F33.1 Active 804263645 Problem Hyperlipidemia, unspecified hyperlipidemia type E78.5 Active 53560943 Problem Gastroesophageal reflux disease, esophagitis presence not specified K21.9 Active 672949406 Problem 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 Active 316722181 Problem Essential hypertension I10 Active 30271897 Problem DM (diabetes mellitus) with complications E11.8 Active 55376767 Problem Other chronic pain G89.29 Active 41222717 ALLERGIES No Information ENCOUNTERS Encounter Location Date Diagnosis [facility] [id number], [place] [address] Oct, [facility] [id number], [place] [address] Sep, Abscess L02.91 [facility] [id number] [place] [address] 71583- 3806 Sep, [place] [address] 33473- 7914 Sep, DM (diabetes mellitus) with complications E11.8 ; Generalized anxiety disorder F41.1 and Chronic pain syndrome G89.4 [place] [address] 15469- 2586 Sep, Generalized anxiety disorder F41.1 ; Chronic pain syndrome G89.4 ; Abnormal drug screen R89.2 and Other chest pain R07.89 [place] [address] 95155- 7377 Aug, Dysuria R30.0 [place] [address] 55552- 2179 Aug, Generalized anxiety disorder F41.1 ; Chronic pain syndrome G89.4 and Dysuria R30.0 [place] [address] 99239- 6646 Aug, Acute cystitis with hematuria N30.01 and Candidal dermatitis B37.2 [place] [address] 98054- 3501 Aug, Dysuria R30.0 [place] [address] 44191- 0500 Aug, [facility] [id number] [place] [address] 14256 -2276 Aug, Dysuria R30.0 [place] [id number] [place] [address] 87303- 9907 Aug, [place] [address] 04866- 4884 July, Cervicalgia M54.2 ; Acute non intractable tension-type headache G44.209 ; Type 2 diabetes mellitus with hyperglycemia E11.65 and skilled nursing current use of insulin Z79.4 [place] [id number] [place] [address] 30391- 1725 July, Generalized anxiety disorder F41.1 and Chronic pain syndrome G89.4 [place] [id number] [place] [address] 82207- 8007 July, Abscess L02.91 [place] [id number] [place] [address] 85086- 2028 July, [place] [id number] [place] [address] 96756- 5545 July, [place] [id number] [place] [address] 61269- 6703 July, Type 2 diabetes mellitus with hyperglycemia E11.65 ; skilled nursing current use of insulin Z79.4 ; Elevated [...] pain syndrome G89.4 and Vaginal candidiasis B37.3 [place] [id number] [place] [address] 24364- 4516 Jun, Generalized anxiety disorder F41.1 and Other chronic pain G89.29 [place] [address] [place] [address] 01080- 9227 Jun, [place] [id number] [place] [address] 86306- 4843 Jun, [place] [id number] [place] [address] 67236- 6117 Jun, Abnormal levels of other serum enzymes R74.8 [place] [id number] [place] [address] 72092- 0762 Jun, Abnormal levels of other serum enzymes R74.8 [facility] [id number] [place] [address] 74488- 5312 Jun, Elevated liver enzymes R74.8 [facility] [address] 83254- 0087 Jun, Elevated liver enzymes R74.8 [facility] [address] 19390- 9045 May, Right upper quadrant pain R10.11 ; Cervicalgia M54.2 and High risk medication use Z79.899 [facility] [address] 97146- 5778 May, Generalized anxiety disorder F41.1 and Other chronic pain G89.29 [facility] [address] 41104- 8081 May, Canker sores oral K12.0 [place] [address] 93382- 5828 May, Generalized anxiety disorder F41.1 and Other chronic pain G89.29 [facility] [address] 69898- 5787 May, [facility] [address] 25461- 3549 Apr, [facility] [address] 60906 -7448 Apr, Acute cystitis with hematuria N30.01 and Dysuria R30.0 [facility] [id number] [place] [address] 30318- 6364 Apr, [facility] [address] 58458- 9024 Apr, [facility] [id number] [place] [address] 82775- 2764 Apr, DM (diabetes mellitus) with complications E11.8 [facility] [id number] [place] [address] 17968- 7216 06 Apr, 2017 DM (diabetes mellitus) with complications E11.8 [facility] [id number] [place] [address] 81461- 6329 03 Apr, 2017 [facility] [address] 71418- 1493 Apr, [facility] [address] 31576- 0374 Apr, Other chronic pain G89.29 ; Generalized anxiety disorder F41.1 ; Cervicalgia M54.2 and Controlled substance agreement signed Z79.899 [facility] [id number] [place] [address] 20075 -7327 Mar, Abdominal pain R10.9 and Viral gastroenteritis A08.4 [place] [address] 17713- 6386 Mar, [place] [address] 83218- 1610 Mar, [place] [id number] [place] [address] 87796- 7313 Mar, DM (diabetes mellitus) with complications E11.8 ; Type 2 diabetes mellitus with hyperglycemia E11.65 ; 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.4 ; Essential hypertension I10 ; Bronchitis J40 ; Major depressive disorder , recurrent episode, moderate F33.1 ; Hyperlipidemia, unspecified hyperlipidemia type E78.5 ; Tobacco abuse Z72.0 ; Tobacco abuse counseling Z71.6 ; History of CVA with residual deficit I69.30 ; Gastroesophageal reflux disease, esophagitis presence not specified K21.9 and 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 [place] [id number] [place] [address] 37054- 4107 Mar, [facility] [address] 99982- 1743 Mar, DM (diabetes mellitus) with complications E11.8 ; Abnormal lung sounds R09.89 ; Bronchitis J40 and Hyperlipidemia, unspecified hyperlipidemia type E78.5 [facility] [address] 16354 -2800 Mar, URI, acute J06.9 [place] [address] 06913- 1878 Mar, [place] [address] 16468- 0992 Mar, DM (diabetes mellitus) with complications E11.8 [place] [address] 912022- 2663 Mar, Other chronic pain G89.29 and Generalized anxiety disorder F41.1 [place] [address] 92767- 2250 Feb, [place] [address] 06112- 4294 Feb, Mass of left lung R91.8 and Cervicalgia M54.2 [place] [address] 25616- 0052 Feb, [place] [address] 74073- 1021 Feb, [facility] [address] 07050 -6210 Feb, Cough R05 and Bronchitis J40 [facility] [place] [address] 68811 -6431 Feb, Acute nasopharyngitis J00 and Bronchitis J40 [place] [address] 99857- 0201 Feb, Other chronic pain G89.29 and Generalized anxiety disorder F41.1 [place] [address] 56095- 3983 Jan, Encounter for immunization Z23 [facility] [place] [address] 83957 -7856 Jan, [facility] [place] [address] 42656 -0304 Jan, [place] [address] 65196- 1779 Jan, Canker sores oral K12.0 [place] [address] 72977- 5906 14 Jan, 2017 [place] [address] 19553- 7566 07 Jan, 2017 Other chronic pain G89.29 and Generalized anxiety disorder F41.[address] 93069- 4525 06 Jan, 2017 Cough R05 and Bronchitis J40 [facility] [address] 78876 -6420 Jan, Bronchitis J40 [place] [address] 76197- 7235 Dec, Vitamin D deficiency E55.9 [place] [address] 33928- 3423 Dec, DM (diabetes mellitus) with complications E11.8 [place] [address] 60615- 9928 Dec, DM (diabetes mellitus) with complications E11.8 and Vitamin D deficiency E55.9 [place] [address] 52611- 9286 Dec, DM (diabetes mellitus) with complications E11.8 ; Essential hypertension I10 ; Hyperlipidemia, unspecified hyperlipidemia type E78.5 ; Vitamin D deficiency E55.9 ; Gastroesophageal reflux disease, esophagitis presence not specified K21.9 ; 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 ; Other chronic pain G89.29 ; Encounter for immunization Z23 and Generalized anxiety disorder F41.1 [place] [id number] [place] [address] 23268- 7537 12 Nov, 2016 History of CVA with residual deficit I69.30 [place] [id number] [place] [address] 37637- 1928 Nov, DM (diabetes mellitus) with complications E11.8 [place] [address] 51053- 9944 06 Nov, 2016 Left otitis media with effusion H65.92 ; Bronchitis J40 and Canker sores oral K12.0 [place] [address] 51407- 4862 Oct, [place] [address] 67709- 2566 Oct, DM (diabetes mellitus) with complications E11.8 [place] [address] 76055- 7654 02 Oct, 2016 [place] [id number] [place] [address] 33451- 4872 Sep, DM (diabetes mellitus) with complications E11.8 [place] [id number] [place] [address] 33074- 6747 Sep, DM (diabetes mellitus) with complications E11.8 ; Essential hypertension I10 ; Gastroesophageal reflux disease, esophagitis presence not specified K21.9 ; Hyperlipidemia, unspecified hyperlipidemia type E78.5 ; Tobacco abuse Z72.0 ; Vitamin D deficiency E55.9 ; History of CVA with residual deficit I69.30 and Seasonal allergic rhinitis due to pollen J30.1 [place] [id number] [place] [address] 36265- 1984 Sep, [place] [id number] [place] [address] 81374- 4149 Aug, [facility] [id number] [place] [address] 79184 -8297 Aug, Dysuria R30.0 ; Acute cystitis with hematuria N30.01 and Middle ear effusion, right H65.91 [facility] [id number] [place] [address] 89070- 4416 Aug, Other complicated headache syndrome G44.59 [facility] [id number] [place] [address] 65826- 2886 Aug, DM (diabetes mellitus) with complications E11.8 [facility] [id number] [place] [address] 68416- 8653 14 Aug, 2016 Dysuria R30.0 [facility] [id number] [place] [address] 01840- 7196 Aug, Dysuria R30.0 [facility] [id number] [place] [address] 23358- 4563 Aug, [facility] [id number] [place] [address] 98194- 2573 July, [facility] [id number] [place] [address] 21154- 4771 July, [facility] [id number] [place] [address] 26509- 6576 July, DM (diabetes mellitus) with complications E11.8 [facility] [id number] [place] [address] 67490- 4854 July, Other complicated headache syndrome G44.59 [facility] [id number] [place] [address] 01169- 9579 July, [facility] [address] [place] [address] 24963 -9437 July, Dysuria R30.0 and Acute cystitis with hematuria N30.01 [facility] [id number] [place] [address] 90203- 2164 July, [facility] [id number] [place] [address] 35846- 8752 July, Other complicated headache syndrome G44.59 [facility] [id number] [place] [address] 30424 -5031 Jun, Exposure to strep throat Z20.818 and Acute upper respiratory infection, unspecified J06.9 [place] [id number] [place] [address] 66218- 1026 Jun, [place] [address] 90426- 8369 Jun, DM (diabetes mellitus) with complications E11.8 and Gastroesophageal reflux disease, esophagitis presence not specified K21.9 [place] [address] 86769- 5586 Jun, [place] [address] 28549- 9092 Jun, Dizziness R42 [facility] [place] [address] 21458 -1467 Jun, [place] [address] 89823- 0911 Jun, [facility] [place] [address] 00467 -3319 May, Seasonal allergic rhinitis, unspecified allergic rhinitis trigger J30.2 [place] [address] 28332- 1257 May, [place] [address] 17803- 1400 May, DM (diabetes mellitus) with complications E11.8 [...] Seasonal allergic rhinitis due to pollen J30.1 [place] [address], [place] [address]- 4815 16 May, 2016 Gastroesophageal reflux disease, esophagitis presence not specified K21.9 [facility] [address], [place] [address]- 1613 May, [facility] [address], [place] [address]- 0985 Apr, [facility] [id number] [place] [address] 98526- 4447 Apr, [facility] [address] [place] [address] 06645- 4825 Mar, [facility] [address] [place] [address] 93482- 8179 Mar, [facility] [address], [place] [address]- 5787 Mar, [facility] [id number], [place] [address]- 7123 Mar, [facility] [address] [place] [address] 03079- 5854 Feb, [facility] [address], [place] [address]- 2019 Feb, [facility] [address], [place] [address]- 8141 Feb, [facility] [address], [place] [address]- 6090 Feb, Major depressive disorder, recurrent episode, moderate F33.1 ; Generalized anxiety disorder F41.1 ; Essential hypertension I10 ; DM ( diabetes mellitus) with complications E11.8 ; Hyperlipidemia, unspecified hyperlipidemia type E78.5 ; 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 and Gastroesophageal reflux disease, esophagitis presence not specified K21.9 [facility] [address], [place] [address]9508 Feb, Other viral agents as the cause of diseases classified elsewhere B97.89 and Acute upper respiratory infection, unspecified J06.9 [facility] [address] [place] [address] 55017- 9883 Jan, [facility] [id number] [place] [address] 63507- 6625 Jan, [facility] [id number] [place] [address] 88858 -8141 Jan, Acute bronchitis, unspecified organism J20.9 [facility] [id number] [place] [address] 14851- 9368 Jan, [facility] [id number] [place] [address] 79107- 7935 Jan, History of CVA with residual deficit I69.30 [place] [id number] [place] [address] 81960- 6619 Jan, [facility] [id number] [place] [address] 72582- 6399 Jan, Acute bronchitis, unspecified organism J20.9 [facility] [id number] [place] [address] 63822- 6372 Jan, [facility] [id number] [place] [address] 89574- 1032 Dec, History of CVA with residual deficit I69.30 [place] [id number] [place] [address] 61156- 2557 Dec, [facility] [id number] [place] [address] 95614- 9209 Dec, Other chronic pain G89.29 ; DM (diabetes mellitus) with complications E11.8 and History of CVA with residual deficit I69.30 [place] [address] [place] [address] 04031- 6414 Nov, Major depressive disorder, recurrent episode, moderate F33.1 ; Irregular heart rhythm I49.9 ; Essential hypertension I10 ; History of CVA with residual deficit I69.30 ; DM (diabetes mellitus) with complications E11.8 ; Gastroesophageal reflux disease, esophagitis presence not specified K21.9 ; Hyperlipidemia, unspecified hyperlipidemia type E78.5 ; 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 ; Other chronic pain G89.29 and Generalized anxiety disorder F41.[address] [place] [address] 75675- 2611 Oct, Generalized anxiety disorder F41.1 ; Major depressive disorder, recurrent episode, moderate F33.1 ; Essential hypertension I10 ; History of CVA with residual deficit I69.30 ; DM (diabetes mellitus) with complications E11.8 ; Gastroesophageal reflux disease, esophagitis presence not specified K21.9 ; Hyperlipidemia, unspecified hyperlipidemia type E78.5 ; Other chronic pain G89.29 and Bacterial conjunctivitis of left eye H10.9 [place] [id number] [place] [address] 44512- 9486 Sep, Chronic pain syndrome G89.4 and DM (diabetes mellitus) with complications E11.8 [place] [id number] [place] [address] 26004- 8346 Sep, Irregular heart rhythm I49.9 ; Routine health maintenance Z00.00 ; Essential hypertension I10 ; History of CVA with residual deficit I69.30 ; Gastroesophageal reflux disease, esophagitis presence not specified K21.9 ; DM (diabetes mellitus) with complications E11.8 ; Hyperlipidemia, unspecified hyperlipidemia type E78.5 and Other complicated headache syndrome G44.59 [place] [id number] [place] [address] 81208- 9950 Jun, [place] [id number] [place] [address] 51282- 4341 Jun, [address] 32917- 4917 Aug, [place] [id number] [place] [address] 99148- 3692 Jun, IMMUNIZATIONS No Known Immunizations SOCIAL HISTORY [...] Blood Clotting Disorder- Dr Galvan at [facility] Medical History Possible Anemia (currently under work up) - Dr Galvan [facility] Medical History irregular heart beat-sees dr. hassan Medical History history of pancreatitis Medical History gerd Medical History History of CVA with residual deficit Medical History Other complicated headache syndrome Medical History Stokes syndrome Surgical History tubal ligation Surgical History section Surgical History cholecystectomy Surgical History Toe Nail Removal x2 Hospitalization History Brain Stem Strokes x5. Has been hospitalized at then transfered to [place]. 2014 Hospitalization History Child Hospitalization History abd pain and shakiness - [facility] ED visit [facility] Hospitalization History [facility] ED for URI 04/16/17 Hospitalization History via [facility] er 08/16/17
--- OUTSIDE RECORDS SUMMARY | 2017-11-04 16:30 | XMS REPORT ---
Author Author EHSAN CARABALLO [facility] Address [address] [place] [address] Care Team Providers Care Family Services Specialist Name Role Phone EHSAN CARABALLO Unavailable PROBLEMS Type Condition ICD9-CM Code [id number] Code Onset Dates Condition Status SNOMED Code Problem Tobacco abuse Z72.0 Active 683230257 Problem Seasonal allergic rhinitis due to pollen J30.1 Active 91027904 Problem Tobacco abuse counseling Z71.6 Active 649329940 Problem Abnormal drug screen R89.2 Active 814638695 Problem Acute non intractable tension-type headache G44.209 Active 917825770 Problem alf current use of insulin Z79.4 Active 613016505 Problem History of CVA with residual deficit I69.30 Active 665222007 Problem Chronic pain syndrome G89.4 Active 486684798 Problem Type 2 diabetes mellitus with hyperglycemia E11.65 Active 83398331 Problem Elevated liver enzymes R74.8 Active 882000737 Problem Generalized anxiety disorder F41.1 Active 34635152 Problem Vitamin D deficiency E55.9 Active 61080192 Problem Major depressive disorder, recurrent episode, moderate F33.1 Active 463550878 Problem Hyperlipidemia, unspecified hyperlipidemia type E78.5 Active 25326439 Problem Gastroesophageal reflux disease, esophagitis presence not specified K21.9 Active 969849535 Problem 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 Active 688760748 Problem Essential hypertension I10 Active 38464684 Problem DM (diabetes mellitus) with complications E11.8 Active 50777234 Problem Other chronic pain G89.29 Active 74004824 ALLERGIES No Information ENCOUNTERS Encounter Location Date Diagnosis [facility] [id number] [address] Oct, [facility] [id number] [address] Sep, Abscess L02.91 [facility] [address] [address] Sep, [facility] [address] [address] 6[address] Sep, DM (diabetes mellitus) with complications E11.8 ; Generalized anxiety disorder F41.1 and Chronic pain syndrome G89.4 [place] [address] [address] 7380 Sep, Generalized anxiety disorder F41.1 ; Chronic pain syndrome G89.4 ; Abnormal drug screen R89.2 and Other chest pain R07.89 [place] [address] 014[address] 3341 Aug, Dysuria R30.0 [place] [address] 24763- 7300 Aug, Generalized anxiety disorder F41.1 ; Chronic pain syndrome G89.4 and Dysuria R30.0 [place] [address] 86353- 8832 Aug, Acute cystitis with hematuria N30.01 and Candidal dermatitis B37.2 [place] [address] 87874- 6076 Aug, Dysuria R30.0 [place] [address] 58[address]- 8364 Aug, [facility] [address] [address] Aug, Dysuria R30.0 [place] [address] 94740- 9669 Aug, [place] [address] 25553- 9648 July, Cervicalgia M54.2 ; Acute non intractable tension-type headache G44.209 ; Type 2 diabetes mellitus with hyperglycemia E11.65 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 [place] [id number] [place] [address] 67171- 1353 July, Generalized anxiety disorder F41.1 and Chronic pain syndrome G89.4 [place] [id number] [place] [address] 70982- 0008 July, Abscess L02.91 [place] [id number] [place] [address] 19080- 8377 July, [place] [address] 48499- 3217 July, [place] [address] 16049- 9254 July, Type 2 diabetes mellitus with hyperglycemia E11.65 ; alf current use of insulin Z79.4 ; Elevated [...] pain syndrome G89.4 and Vaginal candidiasis B37.3 [place] [id number] [place] [address] 20452- 1220 Jun, Generalized anxiety disorder F41.1 and Other chronic pain G89.29 [place] [id number] [place] [address] 80664- 9646 Jun, [place] [id number] [place] [address] 80509- 8084 Jun, [place] [id number] [place] [address] 91743- 6952 Jun, Abnormal levels of other serum enzymes R74.8 [place] [id number] [place] [address] 38912- 3405 Jun, Abnormal levels of other serum enzymes R74.8 [facility] [id number] [place] [address] 02939- 3020 Jun, Elevated liver enzymes R74.8 [facility] [address] 61986- 9341 Jun, Elevated liver enzymes R74.8 [facility] [address] 50821- 6893 May, Right upper quadrant pain R10.11 ; Cervicalgia M54.2 and High risk medication use Z79.899 [place] [address] 07103- 8440 May, Generalized anxiety disorder F41.1 and Other chronic pain G89.29 [place] [address] 06701- 1205 May, Canker sores oral K12.0 [place] [address] 60381- 0782 May, Generalized anxiety disorder F41.1 and Other chronic pain G89.29 [facility] [address] 12929- 9707 May, [facility] [id number] [place] [address] 73784- 4398 Apr, [facility] [id number] [place] [address] 86132 -4922 Apr, Acute cystitis with hematuria N30.01 and Dysuria R30.0 [facility] [id number] [place] [address] 66888- 7366 Apr, [facility] [address] 87575- 4355 Apr, [facility] [id number] [place] [address] 56900- 8684 Apr, DM (diabetes mellitus) with complications E11.8 [facility] [id number] [place] [address] 59788- 7475 06 Apr, 2017 DM (diabetes mellitus) with complications E11.8 [place] [id number] [place] [address] 46573- 1731 03 Apr, 2017 [facility] [address] 45173- 4365 Apr, [facility] [address] 38365- 1210 Apr, Other chronic pain G89.29 ; Generalized anxiety disorder F41.1 ; Cervicalgia M54.2 and Controlled substance agreement signed Z79.899 [facility] [address] [address] Mar, Abdominal pain R10.9 and Viral gastroenteritis A08.4 [place] [address] 98113- 4642 Mar, [place] [address] 63215- 8007 Mar, [place] [id number] [place] [address] 49757- 8008 Mar, DM (diabetes mellitus) with complications E11.8 ; Type 2 diabetes mellitus with hyperglycemia E11.65 ; alf current use of insulin Z79.4 ; Essential hypertension I10 ; Bronchitis J40 ; Major depressive disorder , recurrent episode, moderate F33.1 ; Hyperlipidemia, unspecified hyperlipidemia type E78.5 ; Tobacco abuse Z72.0 ; Tobacco abuse counseling Z71.6 ; History of CVA with residual deficit I69.30 ; Gastroesophageal reflux disease, esophagitis presence not specified K21.9 and 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 [place] [id number] [place] [address] 00303- 6214 Mar, [facility] [address] 67242- 1062 Mar, DM (diabetes mellitus) with complications E11.8 ; Abnormal lung sounds R09.89 ; Bronchitis J40 and Hyperlipidemia, unspecified hyperlipidemia type E78.5 [facility] [address] 04008 -7874 Mar, URI, acute J06.9 [place] [address] 75078- 0442 Mar, [place] [address] 84350- 7718 Mar, DM (diabetes mellitus) with complications E11.8 [place] [address] 28371- 2572 Mar, Other chronic pain G89.29 and Generalized anxiety disorder F41.1 [place] [address] 39607- 4579 Feb, [place] [address] 91687- 3272 Feb, Mass of left lung R91.8 and Cervicalgia M54.2 [place] [address] 16360- 9008 Feb, [place] [address] 74459- 7987 Feb, [facility] [place] [address] 39001 -7339 Feb, Cough R05 and Bronchitis J40 [facility] [place] [address] 14847 [address]777 Feb, Acute nasopharyngitis J00 and Bronchitis J40 [place] [address] 99182- 4153 Feb, Other chronic pain G89.29 and Generalized anxiety disorder F41.1 [place] [address] 52728- 1198 Jan, Encounter for immunization Z23 [facility] [place] [id number] [address]88 Jan, [facility] [place] [address] [address] Jan, [place] [address] 67943- 4399 Jan, Canker sores oral K12.[address] [address]43- 3377 14 Jan, 2017 [place] [address] 44280- 8064 07 Jan, 2017 Other chronic pain G89.29 and Generalized anxiety disorder F41.[address] 48770- 3080 06 Jan, 2017 Cough R05 and Bronchitis J40 [facility] [place] [address] [address]65 Jan, Bronchitis J40 [place] [address] 13363- 7007 Dec, Vitamin D deficiency E55.9 [place] [address] 83831- 4341 Dec, DM (diabetes mellitus) with complications E11.[address] 40623- 7002 Dec, DM (diabetes mellitus) with complications E11.8 and Vitamin D deficiency E55.9 [place] [address] 17384- 8929 Dec, DM (diabetes mellitus) with complications E11.8 ; Essential hypertension I10 ; Hyperlipidemia, unspecified hyperlipidemia type E78.5 ; Vitamin D deficiency E55.9 ; Gastroesophageal reflux disease, esophagitis presence not specified K21.9 ; 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 ; Other chronic pain G89.29 ; Encounter for immunization Z23 and Generalized anxiety disorder F41.1 [place] [id number] [place] [address] 05725- 8954 12 Nov, 2016 History of CVA with residual deficit I69.30 [place] [id number] [place] [address] 60806- 2540 Nov, DM (diabetes mellitus) with complications E11.8 [place] [address] 00734- 4353 06 Nov, 2016 Left otitis media with effusion H65.92 ; Bronchitis J40 and Canker sores oral K12.0 [place] [id number] [place] [address] 78633- 6939 Oct, [place] [address] 94055- 3189 Oct, DM (diabetes mellitus) with complications E11.8 [place] [address] 53150- 7313 02 Oct, 2016 [place] [id number] [place] [address] 36221- 1183 Sep, DM (diabetes mellitus) with complications E11.8 [place] [id number] [place] [address] 84588- 1814 Sep, DM (diabetes mellitus) with complications E11.8 ; Essential hypertension I10 ; Gastroesophageal reflux disease, esophagitis presence not specified K21.9 ; Hyperlipidemia, unspecified hyperlipidemia type E78.5 ; Tobacco abuse Z72.0 ; Vitamin D deficiency E55.9 ; History of CVA with residual deficit I69.30 and Seasonal allergic rhinitis due to pollen J30.1 [place] [id number] [place] [address] 70951- 9639 Sep, [place] [id number] [place] [address] 32489- 6229 Aug, [facility] [id number] [place] [address] 46005 -7554 Aug, Dysuria R30.0 ; Acute cystitis with hematuria N30.01 and Middle ear effusion, right H65.91 [facility] [id number] [place] [address] 68457- 6796 Aug, Other complicated headache syndrome G44.59 [facility] [address], [place] [address]- 0[address] Aug, DM (diabetes mellitus) with complications E11.8 [facility] [id number] [place] [address] 98596- 5576 14 Aug, 2016 Dysuria R30.0 [facility] [id number] [place] [address] 99573- 3966 Aug, Dysuria R30.0 [facility] [id number] [place] [address] 92890- 0777 Aug, [facility] [id number] [place] [address] 11315- 9548 July, [facility] [id number] [place] [address] 17345- 4560 July, [facility] [id number] [place] [address] 69506- 1727 July, DM (diabetes mellitus) with complications E11.8 [facility] [address], [place] [address] 8788 July, Other complicated headache syndrome G44.59 [facility] [id number] [address] 9147 July, [facility] [address], [place] [address] July, Dysuria R30.0 and Acute cystitis with hematuria N30.01 [facility] [address], [place] [address]- 3092 July, [facility] [id number] [place] [address] 43395- 0097 July, Other complicated headache syndrome G44.59 [facility] [address] 77372 -5790 Jun, Exposure to strep throat Z20.818 and Acute upper respiratory infection, unspecified J06.9 [place] [address] 82227- 4636 Jun, [place] [address] 87775- 6050 Jun, DM (diabetes mellitus) with complications E11.8 and Gastroesophageal reflux disease, esophagitis presence not specified K21.9 [place] [address] 54892- 3410 Jun, [place] [address] 57138- 8335 Jun, Dizziness R42 [facility] [place] [address] 83646 -0492 Jun, [place] [address] 66116- 5628 Jun, [facility] [place] [address] 83967 -7162 May, Seasonal allergic rhinitis, unspecified allergic rhinitis trigger J30.2 [place] [address] 65695- 5627 May, [place] [address] 48326- 9347 May, DM (diabetes mellitus) with complications E11.8 [...] Seasonal allergic rhinitis due to pollen J30.1 [place] [address], [place] [address] May, Gastroesophageal reflux disease, esophagitis presence not specified K21.9 [facility] [address], [place] [address]- 0227 May, [facility] [address], [place] [address]- 9352 Apr, [facility] [id number] [place] [address] 05581- 3187 Apr, [facility] [id number] [place] [address] 93639- 1920 Mar, [facility] [id number] [place] [address] 34592- 5732 Mar, [facility] [id number] [place] [address] 37858- 7305 Mar, [facility] [id number] [place] [address] 41496- 3485 Mar, [facility] [id number] [place] [address] 99099- 8581 Feb, [facility] [address], [place] [address]- 0911 Feb, [facility] [address] [address]- 3729 Feb, [facility] [address] [address]- 6303 Feb, Major depressive disorder, recurrent episode, moderate F33.1 ; Generalized anxiety disorder F41.1 ; Essential hypertension I10 ; DM ( diabetes mellitus) with complications E11.8 ; Hyperlipidemia, unspecified hyperlipidemia type E78.5 ; 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 and Gastroesophageal reflux disease, esophagitis presence not specified K21.9 [facility] [address], [place] [address] Feb, Other viral agents as the cause of diseases classified elsewhere B97.89 and Acute upper respiratory infection, unspecified J06.9 [facility] [id number] [place] [address] 66349- 7858 Jan, [facility] [id number] [place] [address] 81124- 2751 Jan, [facility] [id number] [place] [address] 34120 -6141 Jan, Acute bronchitis, unspecified organism J20.9 [facility] [id number] [place] [address] 17765- 4333 Jan, [facility] [id number] [place] [address] 13311- 5150 Jan, History of CVA with residual deficit I69.30 [place] [id number] [place] [address] 45208- 0139 Jan, [facility] [id number] [place] [address] 33874- 9365 Jan, Acute bronchitis, unspecified organism J20.9 [facility] [id number] [place] [address] 34479- 4614 Jan, [facility] [id number] [place] [address] 34329- 7231 Dec, History of CVA with residual deficit I69.30 [place] [id number] [place] [address] 01795- 1768 Dec, [facility] [id number] [place] [address] 22581- 2868 Dec, Other chronic pain G89.29 ; DM (diabetes mellitus) with complications E11.8 and History of CVA with residual deficit I69.30 [place] [address] [place] [address] 24966- 0664 Nov, Major depressive disorder, recurrent episode, moderate F33.1 ; Irregular heart rhythm I49.9 ; Essential hypertension I10 ; History of CVA with residual deficit I69.30 ; DM (diabetes mellitus) with complications E11.8 ; Gastroesophageal reflux disease, esophagitis presence not specified K21.9 ; Hyperlipidemia, unspecified hyperlipidemia type E78.5 ; 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 ; Other chronic pain G89.29 and Generalized anxiety disorder F41.1 [place] [address] [place] [address] 96635- 1756 Oct, Generalized anxiety disorder F41.1 ; Major depressive disorder, recurrent episode, moderate F33.1 ; Essential hypertension I10 ; History of CVA with residual deficit I69.30 ; DM (diabetes mellitus) with complications E11.8 ; Gastroesophageal reflux disease, esophagitis presence not specified K21.9 ; Hyperlipidemia, unspecified hyperlipidemia type E78.5 ; Other chronic pain G89.29 and Bacterial conjunctivitis of left eye H10.9 [place] [id number] [place] [address] 09977- 6537 Sep, Chronic pain syndrome G89.4 and DM (diabetes mellitus) with complications E11.8 [address] [id number] [place] [address] 34006- 5231 Sep, Irregular heart rhythm I49.9 ; Routine health maintenance Z00.00 ; Essential hypertension I10 ; History of CVA with residual deficit I69.30 ; Gastroesophageal reflux disease, esophagitis presence not specified K21.9 ; DM (diabetes mellitus) with complications E11.8 ; Hyperlipidemia, unspecified hyperlipidemia type E78.5 and Other complicated headache syndrome G44.59 [place] [id number] [place] [address] 00182- 8840 Jun, [place] [id number] [place] [address] 82830- 4185 Jun, [address] 18274- 5201 Aug, [place] [id number] [place] [address] 20701- 7784 Jun, IMMUNIZATIONS No Known Immunizations SOCIAL HISTORY Never Assessed REASON FOR VISIT Lab (walk-in) PLAN OF CARE VITAL SIGNS MEDICATIONS Unknown Medications RESULTS No Results PROCEDURES Procedure Date Ordered Result Body Site [facility] 2017 INSTRUCTIONS MEDICATIONS ADMINISTERED No Known Medications MEDICAL (GENERAL) HISTORY Type Description Date Medical History diabetes mellitus Medical History hyperlipidemia Medical History hypertension Medical History Anxiety disorder Medical History Blood Clotting Disorder- Dr Galvan at [facility] Medical History Possible Anemia (currently under work up) - Dr Galvan [facility] Medical History irregular heart beat-sees [...] Has been hospitalized at then transfered to [facility]. 2014 Hospitalization History Child Hospitalization History abd pain and shakiness - [facility] ED visit [facility] Hospitalization History [facility] ED for URI 04/16/17 Hospitalization History via [facility] 08[facility]16/17
--- OUTSIDE RECORDS SUMMARY | 2017-11-04 16:30 | XMS REPORT ---
Author Author SOTERO HUIZAR [facility] Address [address] [place] [address] Care Team Providers Care Fire Chief'S Aide Name Role Phone HUIZARSOTERO Cox Unavailable PROBLEMS Type Condition ICD9-CM Code WDY45-TW Code Onset Dates Condition Status SNOMED Code Problem Tobacco abuse Z72.0 Active 025321933 Problem Seasonal allergic rhinitis due to pollen J30.1 Active 04209016 Problem Tobacco abuse counseling Z71.6 Active 264698557 Problem Abnormal drug screen R89.2 Active 079694279 Problem Acute non intractable tension-type headache G44.209 Active 747599171 Problem senior living current use of insulin Z79.4 Active 629618191 Problem History of CVA with residual deficit I69.30 Active 871867486 Problem Chronic pain syndrome G89.4 Active 773602597 Problem Type 2 diabetes mellitus with hyperglycemia E11.65 Active 04898627 Problem Elevated liver enzymes R74.8 Active 144678993 Problem Generalized anxiety disorder F41.1 Active 55897070 Problem Vitamin D deficiency E55.9 Active 54279205 Problem Major depressive disorder, recurrent episode, moderate F33.1 Active 996584850 Problem Hyperlipidemia, unspecified hyperlipidemia type E78.5 Active 90479732 Problem Gastroesophageal reflux disease, esophagitis presence not specified K21.9 Active 456039914 Problem 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 Active 158501151 Problem Essential hypertension I10 Active 55574597 Problem DM (diabetes mellitus) with complications E11.8 Active 29274629 Problem Other chronic pain G89.29 Active 89953319 ALLERGIES No Information ENCOUNTERS Encounter Location Date Diagnosis [facility] [id number] [address] Oct, [facility] [id number] [address] Sep, Abscess L02.91 [facility] [id number] [place] [address] 86094- 1223 Sep, [place] [address] 98[address]- 9346 Sep, DM (diabetes mellitus) with complications E11.8 ; Generalized anxiety disorder F41.1 and Chronic pain syndrome G89.4 [place] [address] 60231- 4289 Sep, Generalized anxiety disorder F41.1 ; Chronic pain syndrome G89.4 ; Abnormal drug screen R89.2 and Other chest pain R07.89 [place] [address] 98821- 1577 Aug, Dysuria R30.0 [place] [address] 98562- 0300 Aug, Generalized anxiety disorder F41.1 ; Chronic pain syndrome G89.4 and Dysuria R30.0 [place] [address] 04228- 9684 Aug, Acute cystitis with hematuria N30.01 and Candidal dermatitis B37.2 [place] [address] 44166- 1169 Aug, Dysuria R30.0 [place] [address] 60219- 3356 Aug, [facility] [id number] [place] [address] 81336 -9783 Aug, Dysuria R30.0 [place] [id number] [place] [address] 58179- 1814 Aug, [place] [address] 19132- 7743 July, Cervicalgia M54.2 ; Acute non intractable tension-type headache G44.209 ; Type 2 diabetes mellitus with hyperglycemia E11.65 and senior living current use of insulin Z79.4 [place] [address] [place] [address] 11692- 8134 July, Generalized anxiety disorder F41.1 and Chronic pain syndrome G89.4 [place] [id number] [place] [address] 49381- 2684 July, Abscess L02.91 [place] [id number] [place] [address] 71866- 1795 July, [place] [id number] [place] [address] 10360- 7350 July, [place] [id number] [place] [address] 11202- 6870 July, Type 2 diabetes mellitus with hyperglycemia E11.65 ; senior living current use of insulin Z79.4 ; Elevated [...] pain syndrome G89.4 and Vaginal candidiasis B37.3 [place] [id number] [place] [address] 59558- 9615 Jun, Generalized anxiety disorder F41.1 and Other chronic pain G89.29 [place] [address] [place] [address] 57346- 2652 Jun, [place] [id number] [place] [address] 53685- 6335 Jun, [place] [id number] [place] [address] 53095- 0105 Jun, Abnormal levels of other serum enzymes R74.8 [place] [id number] [place] [address] 55219- 1792 Jun, Abnormal levels of other serum enzymes R74.8 [facility] [id number] [place] [address] 27695- 5883 Jun, Elevated liver enzymes R74.8 [facility] [address] 13117- 5487 Jun, Elevated liver enzymes R74.8 [facility] [address] 76579- 9918 May, Right upper quadrant pain R10.11 ; Cervicalgia M54.2 and High risk medication use Z79.899 [facility] [address] 46326- 4126 May, Generalized anxiety disorder F41.1 and Other chronic pain G89.29 [facility] [address] 77713- 1033 May, Canker sores oral K12.0 [place] [address] 94026- 8222 May, Generalized anxiety disorder F41.1 and Other chronic pain G89.29 [facility] [address] 98927- 5807 May, [facility] [address] 89745- 7041 Apr, [facility] [address] 87532 -3029 Apr, Acute cystitis with hematuria N30.01 and Dysuria R30.0 [facility] [id number] [place] [address] 70284- 6880 Apr, [facility] [address] 19289- 6653 Apr, [facility] [id number] [place] [address] 91868- 3987 Apr, DM (diabetes mellitus) with complications E11.8 [facility] [id number] [place] [address] 65447- 3204 06 Apr, 2017 DM (diabetes mellitus) with complications E11.8 [facility] [id number] [place] [address] 88904- 8521 03 Apr, 2017 [facility] [address] 47936- 8094 Apr, [facility] [address] 83668- 1538 Apr, Other chronic pain G89.29 ; Generalized anxiety disorder F41.1 ; Cervicalgia M54.2 and Controlled substance agreement signed Z79.899 [facility] [id number] [place] [address] 68789 -3142 Mar, Abdominal pain R10.9 and Viral gastroenteritis A08.4 [place] [address] 11661- 2114 Mar, [place] [address] 54799- 9659 Mar, [place] [id number] [place] [address] 18567- 1076 Mar, DM (diabetes mellitus) with complications E11.8 ; Type 2 diabetes mellitus with hyperglycemia E11.65 ; technician terminal and repeater current use of insulin Z79.4 ; Essential hypertension I10 ; Bronchitis J40 ; Major depressive disorder , recurrent episode, moderate F33.1 ; Hyperlipidemia, unspecified hyperlipidemia type E78.5 ; Tobacco abuse Z72.0 ; Tobacco abuse counseling Z71.6 ; History of CVA with residual deficit I69.30 ; Gastroesophageal reflux disease, esophagitis presence not specified K21.9 and 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 [place] [id number] [place] [address] 01203- 0339 Mar, [facility] [address] 43325- 2409 Mar, DM (diabetes mellitus) with complications E11.8 ; Abnormal lung sounds R09.89 ; Bronchitis J40 and Hyperlipidemia, unspecified hyperlipidemia type E78.5 [facility] [address] 88503 -0299 Mar, URI, acute J06.9 [place] [address] 44360- 7174 Mar, [place] [address] 44158- 5377 Mar, DM (diabetes mellitus) with complications E11.8 [place] [address] 424241- 5560 Mar, Other chronic pain G89.29 and Generalized anxiety disorder F41.1 [place] [address] 22529- 8593 Feb, [place] [address] 38459- 4023 Feb, Mass of left lung R91.8 and Cervicalgia M54.2 [place] [address] 55614- 2756 Feb, [place] [address] 71087- 0963 Feb, [facility] [address] 28992 -0375 Feb, Cough R05 and Bronchitis J40 [facility] [place] [address] 99365 -1076 Feb, Acute nasopharyngitis J00 and Bronchitis J40 [place] [address] 13655- 6051 Feb, Other chronic pain G89.29 and Generalized anxiety disorder F41.1 [place] [address] 29523- 9093 Jan, Encounter for immunization Z23 [facility] [place] [address] 38543 -3609 Jan, [facility] IN [place] [address] 77957 -2633 Jan, [place] [address] 18682- 0081 Jan, Canker sores oral K12.0 [place] [address] 40511- 3241 14 Jan, 2017 [place] [address] 88428- 8225 07 Jan, 2017 Other chronic pain G89.29 and Generalized anxiety disorder F41.[address] 25529- 1565 06 Jan, 2017 Cough R05 and Bronchitis J40 [facility] IN [address] [address] -9825 Jan, Bronchitis J40 [place] [address] 86595- 4063 Dec, Vitamin D deficiency E55.9 [place] [address] 61757- 5388 Dec, DM (diabetes mellitus) with complications E11.8 [place] [address] 49665- 7812 Dec, DM (diabetes mellitus) with complications E11.8 and Vitamin D deficiency E55.9 [place] [address] 47489- 5448 Dec, DM (diabetes mellitus) with complications E11.8 ; Essential hypertension I10 ; Hyperlipidemia, unspecified hyperlipidemia type E78.5 ; Vitamin D deficiency E55.9 ; Gastroesophageal reflux disease, esophagitis presence not specified K21.9 ; 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 ; Other chronic pain G89.29 ; Encounter for immunization Z23 and Generalized anxiety disorder F41.1 [place] [id number] [place] [address] 50587- 3157 12 Nov, 2016 History of CVA with residual deficit I69.30 [place] [id number] [place] [address] 43520- 1657 Nov, DM (diabetes mellitus) with complications E11.8 [place] [address] 97235- 6367 06 Nov, 2016 Left otitis media with effusion H65.92 ; Bronchitis J40 and Canker sores oral K12.0 [place] [address] 02601- 6591 Oct, [place] [address] 32658- 8188 Oct, DM (diabetes mellitus) with complications E11.8 [place] [address] 21139- 2987 02 Oct, 2016 [place] [id number] [place] [address] 29576- 5313 Sep, DM (diabetes mellitus) with complications E11.8 [place] [id number] [place] [address] 53537- 7031 Sep, DM (diabetes mellitus) with complications E11.8 ; Essential hypertension I10 ; Gastroesophageal reflux disease, esophagitis presence not specified K21.9 ; Hyperlipidemia, unspecified hyperlipidemia type E78.5 ; Tobacco abuse Z72.0 ; Vitamin D deficiency E55.9 ; History of CVA with residual deficit I69.30 and Seasonal allergic rhinitis due to pollen J30.1 [place] [id number] [place] [address] 13804- 4276 Sep, [place] [id number] [place] [address] 99979- 3187 Aug[facility] [id number] [place] [address] 42582 -0758 Aug, Dysuria R30.0 ; Acute cystitis with hematuria N30.01 and Middle ear effusion, right H65.91 [facility] [id number] [place] [address] 95190- 6256 Aug, Other complicated headache syndrome G44.59 [facility] [id number] [place] [address] 47957- 6896 Aug, DM (diabetes mellitus) with complications E11.8 [facility] [id number] [place] [address] 61319- 9647 14 Aug, 2016 Dysuria R30.0 [facility] [id number] [place] [address] 46898- 8726 Aug, Dysuria R30.0 [facility] [id number] [place] [address] 64080- 4516 Aug, [facility] [id number] [place] [address] 28181- 5661 July, [facility] [id number] [place] [address] 15734- 9000 July, [facility] [id number] [place] [address] 92164- 5735 July, DM (diabetes mellitus) with complications E11.8 [facility] [id number] [place] [address] 84391- 9027 July, Other complicated headache syndrome G44.59 [facility] [id number] [place] [address] 18466- 4931 July, [facility] [address] [place] [address] 79655 -0017 July, Dysuria R30.0 and Acute cystitis with hematuria N30.01 [facility] [id number] [place] [address] 55168- 7792 July, [facility] [id number] [place] [address] 04544- 2136 July, Other complicated headache syndrome G44.59 [facility] [id number] [place] [address] 00086 -7023 Jun, Exposure to strep throat Z20.818 and Acute upper respiratory infection, unspecified J06.9 [place] [id number] [place] [address] 23582- 7931 Jun, [place] [address] 65733- 6211 Jun, DM (diabetes mellitus) with complications E11.8 and Gastroesophageal reflux disease, esophagitis presence not specified K21.9 [place] [address] 38749- 9357 Jun, [place] [address] 11494- 8239 Jun, Dizziness R42 [facility] [place] [address] 00708 -0783 Jun, [place] [address] 09515- 6072 Jun, [facility] IN [place] [address] 53978 -2267 May, Seasonal allergic rhinitis, unspecified allergic rhinitis trigger J30.2 [place] [address] 86852- 2196 May, [place] [address] 04817- 6137 May, DM (diabetes mellitus) with complications E11.8 [...] Seasonal allergic rhinitis due to pollen J30.1 [place] [address] [address] 16 May, 2016 Gastroesophageal reflux disease, esophagitis presence not specified K21.9 [facility] [address] [address]- 4239 May, [facility] [address] [address]- 2804 Apr, [facility] [id number] [place] [address] 06910- 9288 Apr, [facility] [id number] [place] [address] 53558- 9071 Mar, [facility] [address] [place] [address] 10761- 3816 Mar, [facility] [address] [address]- 3565 Mar, [facility] [id number] [address]- 5228 Mar, [facility] [id number] [place] [address] 62058- 9547 Feb, [facility] [address] [address]- 1762 Feb, [facility] [address] [address]- 4029 Feb, [facility] [address] [address]- 4651 Feb, Major depressive disorder, recurrent episode, moderate F33.1 ; Generalized anxiety disorder F41.1 ; Essential hypertension I10 ; DM ( diabetes mellitus) with complications E11.8 ; Hyperlipidemia, unspecified hyperlipidemia type E78.5 ; 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 [address] [address]33 Feb, Other viral agents as the cause of diseases classified elsewhere B97.89 and Acute upper respiratory infection, unspecified J06.9 [facility] [address] [place] [address] 00154- 8886 Jan, [facility] [id number] [place] [address] 57174- 4963 Jan, [facility] [id number] [place] [address] 83806 -7933 Jan, Acute bronchitis, unspecified organism J20.9 [facility] [id number] [place] [address] 64050- 0720 Jan, [facility] [id number] [place] [address] 64486- 7025 Jan, History of CVA with residual deficit I69.30 [place] [id number] [place] [address] 00278- 6165 Jan, [facility] [id number] [place] [address] 24720- 5178 Jan, Acute bronchitis, unspecified organism J20.9 [facility] [id number] [place] [address] 08220- 8032 Jan, [facility] [id number] [place] [address] 06814- 2208 Dec, History of CVA with residual deficit I69.30 [place] [id number] [place] [address] 09926- 3011 Dec, [facility] [id number] [place] [address] 64369- 1474 Dec, Other chronic pain G89.29 ; DM (diabetes mellitus) with complications E11.8 and History of CVA with residual deficit I69.30 [place] [address] [place] [address] 01930- 9258 Nov, Major depressive disorder, recurrent episode, moderate F33.1 ; Irregular heart rhythm I49.9 ; Essential hypertension I10 ; History of CVA with residual deficit I69.30 ; DM (diabetes mellitus) with complications E11.8 ; Gastroesophageal reflux disease, esophagitis presence not specified K21.9 ; Hyperlipidemia, unspecified hyperlipidemia type E78.5 ; 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 ; Other chronic pain G89.29 and Generalized anxiety disorder F41.[id number] [place] [address] 52478- 4267 Oct, Generalized anxiety disorder F41.1 ; Major depressive disorder, recurrent episode, moderate F33.1 ; Essential hypertension I10 ; History of CVA with residual deficit I69.30 ; DM (diabetes mellitus) with complications E11.8 ; Gastroesophageal reflux disease, esophagitis presence not specified K21.9 ; Hyperlipidemia, unspecified hyperlipidemia type E78.5 ; Other chronic pain G89.29 and Bacterial conjunctivitis of left eye H10.9 [place] [id number] [place] [address] 91015- 8282 Sep, Chronic pain syndrome G89.4 and DM (diabetes mellitus) with complications E11.8 [place] [id number] [place] [address] 74320- 8667 Sep, Irregular heart rhythm I49.9 ; Routine health maintenance Z00.00 ; Essential hypertension I10 ; History of CVA with residual deficit I69.30 ; Gastroesophageal reflux disease, esophagitis presence not specified K21.9 ; DM (diabetes mellitus) with complications E11.8 ; Hyperlipidemia, unspecified hyperlipidemia type E78.5 and Other complicated headache syndrome G44.59 [place] [address] [place] [address] [id number] [place] [address] 56797- 5197 Jun, [place] [id number] [place] [address] 11344- 8711 Jun, [address] 75521- 0762 Aug, [place] [id number] [place] [address] 08495- 8084 Jun, IMMUNIZATIONS No Known Immunizations SOCIAL HISTORY Never Assessed REASON FOR VISIT lab results PLAN OF CARE VITAL SIGNS MEDICATIONS Unknown Medications RESULTS No Results PROCEDURES No Known procedures INSTRUCTIONS MEDICATIONS ADMINISTERED No Known Medications MEDICAL (GENERAL) HISTORY Type Description Date Medical History diabetes mellitus Medical History hyperlipidemia Medical History hypertension Medical History Anxiety disorder Medical History Blood Clotting Disorder- Dr Galvan at [facility] Medical History Possible Anemia (currently under work up) - Dr Galvan [facility] Medical History irregular heart beat-sees dr. hassan Medical History history of pancreatitis Medical History gerd Medical History History of CVA with residual deficit Medical History Other complicated headache syndrome Medical History Stokes syndrome Surgical History tubal ligation Surgical History section Surgical History cholecystectomy Surgical History Toe Nail Removal x2 Hospitalization History Brain Stem Strokes x5. Has been hospitalized at then transfered to [place]. 2014 Hospitalization History Child Hospitalization History abd pain and shakiness - [facility] ED visit [facility] Hospitalization History [facility] ED for URI 04[facility]16/17 Hospitalization History via [facility] er 08[facility]16/17
--- OUTSIDE RECORDS SUMMARY | 2017-11-04 16:31 | XMS REPORT ---
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 Name Role Phone HUIZARSOTERO Cox Unavailable PROBLEMS Type Condition ICD9-CM Code GYV08-XH Code Onset Dates Condition Status SNOMED Code Problem Tobacco abuse Z72.0 Active 973649132 Problem Seasonal allergic rhinitis due to pollen J30.1 Active 71311163 Problem Tobacco abuse counseling Z71.6 Active 038794344 Problem Abnormal drug screen R89.2 Active 276446203 Problem Acute non intractable tension-type headache G44.209 Active 462408145 Problem halfway current use of insulin Z79.4 Active 932855854 Problem History of CVA with residual deficit I69.30 Active 138918535 Problem Chronic pain syndrome G89.4 Active 538120628 Problem Type 2 diabetes mellitus with hyperglycemia E11.65 Active 75188459 Problem Elevated liver enzymes R74.8 Active 878417413 Problem Generalized anxiety disorder F41.1 Active 30955028 Problem Vitamin D deficiency E55.9 Active 54281037 Problem Major depressive disorder, recurrent episode, moderate F33.1 Active 177631586 Problem Hyperlipidemia, unspecified hyperlipidemia type E78.5 Active 99346484 Problem Gastroesophageal reflux disease, esophagitis presence not specified K21.9 Active 525331978 Problem 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 Active 069979282 Problem Essential hypertension I10 Active 88666116 Problem DM (diabetes mellitus) with complications E11.8 Active 76789023 Problem Other chronic pain G89.29 Active 91894847 ALLERGIES No Information ENCOUNTERS Encounter Location Date Diagnosis [facility] [id number] [address] Oct, [facility] [id number] [address] Sep, Abscess L02.91 [facility] [id number] [place] [address] 77331- 4877 Sep, [place] [address] 30202- 7752 Sep, DM (diabetes mellitus) with complications E11.8 ; Generalized anxiety disorder F41.1 and Chronic pain syndrome G89.4 [place] [address] 29162- 2690 Sep, Generalized anxiety disorder F41.1 ; Chronic pain syndrome G89.4 ; Abnormal drug screen R89.2 and Other chest pain R07.89 [place] [address] 18395- 2051 Aug, Dysuria R30.0 [place] [address] 16940- 3619 Aug, Generalized anxiety disorder F41.1 ; Chronic pain syndrome G89.4 and Dysuria R30.0 [place] [address] 94803- 2250 Aug, Acute cystitis with hematuria N30.01 and Candidal dermatitis B37.2 [place] [address] 21831- 0637 Aug, Dysuria R30.0 [place] [address] 67848- 6926 Aug, [facility] [id number] [place] [address] 03212 -7278 Aug, Dysuria R30.0 [place] [id number] [place] [address] 71594- 2068 Aug, [place] [address] 97196- 1337 July, Cervicalgia M54.2 ; Acute non intractable tension-type headache G44.209 ; Type 2 diabetes mellitus with hyperglycemia E11.65 and halfway current use of insulin Z79.4 [place] [address] [place] [address] 12086- 8920 July, Generalized anxiety disorder F41.1 and Chronic pain syndrome G89.4 [place] [id number] [place] [address] 30033- 9153 July, Abscess L02.91 [place] [id number] [place] [address] 40643- 8600 July, [place] [id number] [place] [address] 04376- 0290 July, [place] [id number] [place] [address] 19563- 1696 July, Type 2 diabetes mellitus with hyperglycemia E11.65 ; halfway current use of insulin Z79.4 ; Elevated [...] G89.4 and Vaginal candidiasis B37.3 [place] [id number] [place] [address] 58507- 5310 Jun, Generalized anxiety disorder F41.1 and Other chronic pain G89.29 [place] [address] [place] [address] 14802- 4675 Jun, [place] [id number] [place] [address] 04144- 3807 Jun, [place] [id number] [place] [address] 99058- 3619 Jun, Abnormal levels of other serum enzymes R74.8 [place] [id number] [place] [address] 86607- 6665 Jun, Abnormal levels of other serum enzymes R74.8 [facility] [id number] [place] [address] 40493- 2148 Jun, Elevated liver enzymes R74.8 [facility] [address] 06377- 8848 Jun, Elevated liver enzymes R74.8 [facility] [address] 37588- 3212 May, Right upper quadrant pain R10.11 ; Cervicalgia M54.2 and High risk medication use Z79.899 [facility] [address] 31128- 5483 May, Generalized anxiety disorder F41.1 and Other chronic pain G89.29 [facility] [address] 29749- 5691 May, Canker sores oral K12.0 [place] [address] 31141- 2792 May, Generalized anxiety disorder F41.1 and Other chronic pain G89.29 [facility] [address] 27507- 1424 May, [facility] [address] 90264- 8640 Apr, [facility] [address] 72998 -9756 Apr, Acute cystitis with hematuria N30.[address] [facility] [id number] [place] [address] 57770- 4793 Apr, [facility] [address] 54554- 5615 Apr, [facility] [id number] [place] [address] 05083- 9659 Apr, DM (diabetes mellitus) with complications E11.8 [facility] [id number] [place] [address] 97698- 8190 06 Apr, 2017 DM (diabetes mellitus) with complications E11.8 [facility] [id number] [place] [address] 55404- 7000 03 Apr, 2017 [facility] [address] 66925- 4396 Apr, [facility] [address] 88391- 9270 Apr, Other chronic pain G89.29 ; Generalized anxiety disorder F41.1 ; Cervicalgia M54.2 and Controlled substance agreement signed Z79.899 [facility] [id number] [place] [address] 70730 -1638 Mar, Abdominal pain R10.9 and Viral gastroenteritis A08.4 [place] [address] 83513- 8097 Mar, [place] [address] 28578- 5660 Mar, [place] [id number] [place] [address] 71269- 0873 Mar, DM (diabetes mellitus) with complications E11.8 ; Type 2 diabetes mellitus with hyperglycemia E11.65 ; 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 [address] 70176- 6045 Mar, DM (diabetes mellitus) with complications E11.8 ; Abnormal lung sounds R09.89 ; Bronchitis J40 and Hyperlipidemia, unspecified hyperlipidemia type E78.5 [facility] [address] 21059 -3340 Mar, URI, acute J06.9 [place] [address] 56890- 9714 Mar, [place] [address] 34646- 3397 Mar, DM (diabetes mellitus) with complications E11.8 [place] [address] 886063- 7840 Mar, Other chronic pain G89.29 and Generalized anxiety disorder F41.1 [place] [address] 62539- 6969 Feb, [place] [address] 24629- 3866 Feb, Mass of left lung R91.8 and Cervicalgia M54.2 [place] [address] 48951- 6982 Feb, [place] [address] 15396- 4713 Feb, [facility] [address] 98431 -0755 Feb, Cough R05 and Bronchitis J40 [facility] [place] [address] 93253 -4470 Feb, Acute nasopharyngitis J00 and Bronchitis J40 [place] [address] 17958- 9064 Feb, Other chronic pain G89.29 and Generalized anxiety disorder F41.1 [place] [address] 94505- 2151 Jan, Encounter for immunization Z23 [facility] [place] [address] 62019 -8452 Jan, [facility] [place] [address] 17655 -9133 Jan, [place] [address] 13687- 4139 Jan, Canker sores oral K12.0 [place] [address] 00168- 6233 14 Jan, 2017 [place] [address] 83318- 8026 07 Jan, 2017 Other chronic pain G89.29 and Generalized anxiety disorder F41.[address] 91638- 9110 06 Jan, 2017 Cough R05 and Bronchitis J40 [facility] [address] 42195 -0982 Jan, Bronchitis J40 [place] [address] 13236- 7731 Dec, Vitamin D deficiency E55.9 [place] [address] 04996- 3480 Dec, DM (diabetes mellitus) with complications E11.8 [place] [address] 23446- 7969 Dec, DM (diabetes mellitus) with complications E11.8 and Vitamin D deficiency E55.9 [place] [address] 51920- 2282 Dec, DM (diabetes mellitus) with complications E11.8 ; Essential hypertension I10 ; Hyperlipidemia, unspecified hyperlipidemia type E78.5 ; Vitamin D deficiency E55.9 ; Gastroesophageal reflux disease, esophagitis presence not specified K21.9 ; 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 ; Other chronic pain G89.29 ; Encounter for immunization Z23 and Generalized anxiety disorder F41.1 [place] [id number] [place] [address] 21275- 8885 12 Nov, 2016 History of CVA with residual deficit I69.30 [place] [id number] [place] [address] 63368- 4218 Nov, DM (diabetes mellitus) with complications E11.8 [place] [address] 59695- 9861 06 Nov, 2016 Left otitis media with effusion H65.92 ; Bronchitis J40 and Canker sores oral K12.0 [place] [address] 27600- 7045 Oct, [place] [address] 96264- 9678 Oct, DM (diabetes mellitus) with complications E11.8 [place] [address] 99030- 3165 02 Oct, 2016 [place] [id number] [place] [address] 10199- 1892 Sep, DM (diabetes mellitus) with complications E11.8 [place] [id number] [place] [address] 76980- 1987 Sep, DM (diabetes mellitus) with complications E11.8 ; Essential hypertension I10 ; Gastroesophageal reflux disease, esophagitis presence not specified K21.9 ; Hyperlipidemia, unspecified hyperlipidemia type E78.5 ; Tobacco abuse Z72.0 ; Vitamin D deficiency E55.9 ; History of CVA with residual deficit I69.30 and Seasonal allergic rhinitis due to pollen J30.1 [place] [id number] [place] [address] 71266- 8764 Sep, [place] [id number] [place] [address] 97734- 7279 Aug, [facility] [id number] [place] [address] 68560 -5771 Aug, Dysuria R30.0 ; Acute cystitis with hematuria N30.01 and Middle ear effusion, right H65.91 [facility] [id number] [place] [address] 70506- 1726 Aug, Other complicated headache syndrome G44.59 [facility] [id number] [place] [address] 29970- 9336 Aug, DM (diabetes mellitus) with complications E11.8 [facility] [id number] [place] [address] 27337- 5671 14 Aug, [address] [facility] [id number] [place] [address] 99538- 9126 Aug, Dysuria R30.0 [facility] [id number] [place] [address] 15131- 6069 Aug, [facility] [id number] [place] [address] 68846- 8186 July, [facility] [id number] [place] [address] 99506- 6397 July, [facility] [id number] [place] [address] 52851- 4356 July, DM (diabetes mellitus) with complications E11.8 [facility] [id number] [place] [address] 14699- 5963 July, Other complicated headache syndrome G44.59 [facility] [id number] [place] [address] 40622- 3172 July, [facility] [address] [place] [address] 93439 -0162 July, Dysuria R30.0 and Acute cystitis with hematuria N30.01 [facility] [id number] [place] [address] 65734- 6655 July, [facility] [id number] [place] [address] 39262- 2681 July, Other complicated headache syndrome G44.59 [facility] [id number] [place] [address] 66951 -6532 Jun, Exposure to strep throat Z20.818 and Acute upper respiratory infection, unspecified J06.9 [place] [id number] [place] [address] 86155- 7436 Jun, [place] [address] 37252- 2810 Jun, DM (diabetes mellitus) with complications E11.8 and Gastroesophageal reflux disease, esophagitis presence not specified K21.9 [place] [address] 71417- 0353 Jun, [place] [address] 38170- 5145 Jun, Dizziness R42 [facility] [place] [address] 63390 -0607 Jun, [place] [address] 17649- 3086 Jun, [facility] [place] [address] 14792 -6036 May, Seasonal allergic rhinitis, unspecified allergic rhinitis trigger J30.2 [place] [address] 09312- 2824 May, [place] [address] 03003- 6552 May, DM (diabetes mellitus) with complications E11.8 [...] Seasonal allergic rhinitis due to pollen J30.1 [place] [address] [address]- 7019 16 May, 2016 Gastroesophageal reflux disease, esophagitis presence not specified K21.9 [facility] [address], [place] [address]- 7510 May, [facility] [address] [address] Apr, [facility] [id number] [place] [address] 32449- 0254 Apr, [facility] [address] [place] [address] 36826- 3625 Mar, [facility] [address] [place] [address] 34530- 8513 Mar, [facility] [address] [address] 8099 Mar, [facility] [address] [address] 9964 Mar, [facility] [address] [place] [address] 74981- 5923 Feb, [facility] [address] [address] 6141 Feb, [facility] [address], [place] [address]- 0622 Feb, 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 [address] [place] [address] 10255- 9413 Jan, [facility] [id number] [place] [address] 06862- 5515 Jan, [facility] [id number] [place] [address] 82655 -9203 Jan, Acute bronchitis, unspecified organism J20.9 [facility] [id number] [place] [address] 89606- 8419 Jan, [facility] [id number] [place] [address] 13746- 0844 Jan, History of CVA with residual deficit I69.30 [place] [id number] [place] [address] 62396- 9621 Jan, [facility] [id number] [place] [address] 59050- 4960 Jan, Acute bronchitis, unspecified organism J20.9 [facility] [id number] [place] [address] 20157- 0354 Jan, [facility] [address] [place] [address] 12728- 5982 Dec, History of CVA with residual deficit I69.30 [place] [address] [place] [address] 63898- 7849 Dec, [facility] [id number] [place] [address] 79469- 3082 Dec, Other chronic pain G89.29 ; DM (diabetes mellitus) with complications E11.8 and History of CVA with residual deficit I69.30 [place] [address] [place] [address] 31022- 3284 Nov, Major depressive disorder, recurrent episode, moderate F33.1 ; Irregular heart rhythm I49.9 ; Essential hypertension I10 ; History of CVA with residual deficit I69.30 ; DM (diabetes mellitus) with complications E11.8 ; Gastroesophageal reflux disease, esophagitis presence not specified K21.9 ; Hyperlipidemia, unspecified hyperlipidemia type E78.5 ; 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 ; Other chronic pain G89.29 and Generalized anxiety disorder F41.[address] [place] [address] 07744- 7922 Oct, Generalized anxiety disorder F41.1 ; Major depressive disorder, recurrent episode, moderate F33.1 ; Essential hypertension I10 ; History of CVA with residual deficit I69.30 ; DM (diabetes mellitus) with complications E11.8 ; Gastroesophageal reflux disease, esophagitis presence not specified K21.9 ; Hyperlipidemia, unspecified hyperlipidemia type E78.5 ; Other chronic pain G89.29 and Bacterial conjunctivitis of left eye H10.9 [place] [id number] [place] [address] 31635- 5509 Sep, Chronic pain syndrome G89.4 and DM (diabetes mellitus) with complications E11.8 [place] [address] [place] [address] 94432- 2148 Sep, Irregular heart rhythm I49.9 ; Routine health maintenance Z00.00 ; Essential hypertension I10 ; History of CVA with residual deficit I69.30 ; Gastroesophageal reflux disease, esophagitis presence not specified K21.9 ; DM (diabetes mellitus) with complications E11.8 ; Hyperlipidemia, unspecified hyperlipidemia type E78.5 and Other complicated headache syndrome G44.59 [place] [id number] [place] [address] 18955- 4876 Jun, [place] [id number] [place] [address] 30641- 1170 Jun, [address] 88180- 9060 Aug, [place] [id number] [place] [address] 75368- 6878 Jun, IMMUNIZATIONS No Known Immunizations SOCIAL HISTORY Never Assessed REASON FOR VISIT Test results PLAN OF CARE VITAL SIGNS MEDICATIONS Unknown Medications RESULTS No Results PROCEDURES No Known procedures INSTRUCTIONS MEDICATIONS ADMINISTERED No Known Medications MEDICAL (GENERAL) HISTORY Type Description Date Medical History diabetes mellitus Medical History hyperlipidemia Medical History hypertension Medical History Anxiety disorder Medical History Blood Clotting Disorder- Dr Galvan at [facility] Medical History Possible Anemia (currently under work up) - Dr Galvan [facility] Medical History irregular heart beat-sees dr. hassan Medical History history of pancreatitis Medical History gerd Medical History History of CVA with residual deficit Medical History Other complicated headache syndrome Medical History Stokes syndrome Surgical History tubal ligation Surgical History section Surgical History cholecystectomy Surgical History Toe Nail Removal x2 Hospitalization History Brain Stem Strokes x5. Has been hospitalized at then transfered to [place]. 2014 Hospitalization History Child Hospitalization History abd pain and shakiness - [facility] ED visit [facility] [place], operated by [facility] Hospitalization History [facility] ED for URI 04/16/17 Hospitalization History via [facility] er 08/16/17
--- OUTSIDE RECORDS SUMMARY | 2017-11-04 16:32 | XMS REPORT ---
Author Author SOTERO HUIZAR Organization [facility] Address [address] [place] [address] Care Team Providers Care Manager Of Case Name Role Phone HUIZARSOTERO Cox Unavailable PROBLEMS Type Condition ICD9-CM Code [id number] Code Onset Dates Condition Status SNOMED Code Problem Tobacco abuse Z72.0 Active 132132021 Problem Seasonal allergic rhinitis due to pollen J30.1 Active 53515710 Problem Tobacco abuse counseling Z71.6 Active 517947694 Problem Abnormal drug screen R89.2 Active 742641841 Problem Acute non intractable tension-type headache G44.209 Active 408182981 Problem correction current use of insulin Z79.4 Active 300721828 Problem History of CVA with residual deficit I69.30 Active 543570985 Problem Chronic pain syndrome G89.4 Active 585960147 Problem Type 2 diabetes mellitus with hyperglycemia E11.65 Active 23659177 Problem Elevated liver enzymes R74.8 Active 509125338 Problem Generalized anxiety disorder F41.1 Active 79141472 Problem Vitamin D deficiency E55.9 Active 26548487 Problem Major depressive disorder, recurrent episode, moderate F33.1 Active 701447839 Problem Hyperlipidemia, unspecified hyperlipidemia type E78.5 Active 50623385 Problem Gastroesophageal reflux disease, esophagitis presence not specified K21.9 Active 371081894 Problem 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 Active 423416918 Problem Essential hypertension I10 Active 22251412 Problem DM (diabetes mellitus) with complications E11.8 Active 07094923 Problem Other chronic pain G89.29 Active 81732136 ALLERGIES No Information ENCOUNTERS Encounter Location Date Diagnosis [facility] [address], [place] [address] Sep, Abscess L02.91 [facility] [id number] [address] Sep, [facility] [id number] [place] [address] 39671- 3360 Sep, DM (diabetes mellitus) with complications E11.8 ; Generalized anxiety disorder F41.1 and Chronic pain syndrome G89.4 [place] [address] [address] 9[address] Sep, Generalized anxiety disorder F41.1 ; Chronic pain syndrome G89.4 ; Abnormal drug screen R89.2 and Other chest pain R07.89 [place] [address] [address]- 6796 Aug, Dysuria R30.0 [place] [address] 69283- 7283 Aug, Generalized anxiety disorder F41.1 ; Chronic pain syndrome G89.4 and Dysuria R30.0 [place] [address] 95631- 4510 Aug, Acute cystitis with hematuria N30.01 and Candidal dermatitis B37.2 [place] [address] 04677- 6265 Aug, Dysuria R30.0 [place] [address] 25481- 1986 Aug, [facility] WALK IN [facility] [id number] [place] [address] 92811 -3417 Aug, Dysuria R30.0 [facility] [address] 83164- 6695 Aug, [facility] [id number] [place] [address] 34210- 7145 July, Cervicalgia M54.2 ; Acute non intractable tension-type headache G44.209 ; Type 2 diabetes mellitus with hyperglycemia E11.65 and correction current use of insulin Z79.4 [place] [address] [address] [id number] [place] [address] 01432- 8847 July, Generalized anxiety disorder F41.1 and Chronic pain syndrome G89.4 [place] [address] [place] [address] 54229- 2921 July, Abscess L02.91 [place] [address] [place] [id number] [place] [address] 49904- 3095 July, [place] [address] [address] [id number] [place] [address] 89980- 5789 July, [place] [address] [address] [id number] [place] [address] 08453- 3685 July, Type 2 diabetes mellitus with hyperglycemia E11.65 ; correction current use of insulin Z79.4 ; Elevated [...] pain syndrome G89.4 and Vaginal candidiasis B37.3 [place] [address] [address] [id number] [place] [address] 99079- 0220 Jun, Generalized anxiety disorder F41.1 and Other chronic pain G89.29 [place] [address] [address] [id number] [place] [address] 10958- 5962 Jun, [place] [address] [id number] [place] [address] 89493- 4813 Jun, [place] [address] [address] [id number] [place] [address] 24876- 8940 Jun, Abnormal levels of other serum enzymes R74.8 [place] [address] [id number] [place] [address] 74462- 1372 Jun, Abnormal levels of other serum enzymes R74.8 [place] [address] [address] [id number] [place] [address] 90669- 3983 Jun, Elevated liver enzymes R74.8 [facility] [id number] [place] [address] 17238- 3354 Jun, Elevated liver enzymes R74.8 [facility] [id number] [place] [address] 36188- 1787 30 May, 2017 Right upper quadrant pain R10.11 ; Cervicalgia M54.2 and High risk medication use Z79.899 [facility] [address] 34883- 3729 May, Generalized anxiety disorder F41.1 and Other chronic pain G89.29 [place] [address] 21580- 0196 May, Canker sores oral K12.0 [place] [address] 13558- 7153 May, Generalized anxiety disorder F41.1 and Other chronic pain G89.29 [place] [address] [id number] [place] [address] 19357- 1134 May, [facility] [address] 03265- 8515 Apr, [facility] IN [facility] [id number] [place] [address] 95925 -1354 Apr, Acute cystitis with hematuria N30.01 and Dysuria R30.0 [facility] [id number] [place] [address] 36423- 2658 Apr, [facility] [id number] [place] [address] 83711- 2996 Apr, [facility] [id number] [place] [address] 08255- 7004 Apr, DM (diabetes mellitus) with complications E11.8 [place] [address] 37084- 5545 Apr, DM (diabetes mellitus) with complications E11.8 [place] [address] [place] [id number] [place] [address] 60189- 2671 Apr, [place] [address] [address] [id number] [place] [address] 73043- 6759 Apr, [place] [address] [address] [id number] [place] [address] 94544- 7777 Apr, Other chronic pain G89.29 ; Generalized anxiety disorder F41.1 ; Cervicalgia M54.2 and Controlled substance agreement signed Z79.899 [facility] WALK IN [address] [address] Mar, Abdominal pain R10.9 and Viral gastroenteritis A08.4 [place] [address] 24759- 6375 Mar, [place] [address] [address] [id number] [place] [address] 17619- 1672 Mar, [place] [address] [place] [address] [id number] [place] [address] 18157- 1416 Mar, DM (diabetes mellitus) with complications E11.8 ; Type 2 diabetes mellitus with hyperglycemia E11.65 ; 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 ; Essential hypertension I10 ; Bronchitis J40 ; Major depressive disorder , recurrent episode, moderate F33.1 ; Hyperlipidemia, unspecified hyperlipidemia type E78.5 ; Tobacco abuse Z72.0 ; Tobacco abuse counseling Z71.6 ; History of CVA with residual deficit I69.30 ; Gastroesophageal reflux disease, esophagitis presence not specified K21.9 and 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 [place] [address] [place] [id number] [place] [address] 24810- 4444 Mar, [place] [address] [place] [id number] [place] [address] 15869- 1042 Mar, DM (diabetes mellitus) with complications E11.8 ; Abnormal lung sounds R09.89 ; Bronchitis J40 and Hyperlipidemia, unspecified hyperlipidemia type E78.5 [facility] [address] 06256 -2471 Mar, URI, acute J06.9 [place] [address] 61498- 5684 Mar, [place] [address] 18138- 2796 Mar, DM (diabetes mellitus) with complications E11.8 [place] [address] 36640- 2669 Mar, Other chronic pain G89.29 and Generalized anxiety disorder F41.1 [place] [address] 15160- 4462 Feb, [place] [address] 15604- 1479 Feb, Mass of left lung R91.8 and Cervicalgia M54.2 [place] [address] 00424- 8505 Feb, [place] [address] 80524- 7110 Feb, [facility] WALK IN [facility] [address] 47599 -8532 Feb, Cough R05 and Bronchitis J40 [facility]ALK IN [facility] [address] 09200 -3420 Feb, Acute nasopharyngitis J00 and Bronchitis J40 [place] [address] 94064- 7389 Feb, Other chronic pain G89.29 and Generalized anxiety disorder F41.1 [facility] [address] 81348- 1913 Jan, Encounter for immunization Z23 [facility] [address] 39374 -7440 Jan, [facility] WALK IN [facility] [address] 15983 -9368 Jan, [place] [address] 06039- 1433 Jan, Canker sores oral K12.[address] 35142- 2545 Jan, [place] [address] 83556- 1025 Jan, Other chronic pain G89.29 and Generalized anxiety disorder F41.[address] 16825- 1680 06 Jan, 2017 Cough R05 and Bronchitis J40 [facility] IN [address] [address]57 -1153 Jan, Bronchitis J40 [place] [address] 23605- 7848 Dec, Vitamin D deficiency E55.[address] 84075- 8318 Dec, DM (diabetes mellitus) with complications E11.[address] 24447- 0641 Dec, DM (diabetes mellitus) with complications E11.8 and Vitamin D deficiency E55.9 [place] [address] 79468- 3760 Dec, DM (diabetes mellitus) with complications E11.8 ; Essential hypertension I10 ; Hyperlipidemia, unspecified hyperlipidemia type E78.5 ; Vitamin D deficiency E55.9 ; Gastroesophageal reflux disease, esophagitis presence not specified K21.9 ; 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 ; Other chronic pain G89.29 ; Encounter for immunization Z23 and Generalized anxiety disorder F41.[address] 63744- 6964 Nov, History of CVA with residual deficit I69.30 [place] [address] [place] [id number] [place] [address] 41096- 8140 Nov, DM (diabetes mellitus) with complications E11.8 [place] [address] [place] [id number] [place] [address] 20771- 6433 06 Nov, 2016 Left otitis media with effusion H65.92 ; Bronchitis J40 and Canker sores oral K12.0 [place] [id number] [place] [address] 48450- 5434 Oct, [place] [id number] [place] [address] 17816- 0531 Oct, DM (diabetes mellitus) with complications E11.8 [place] [id number] [place] [address] 21337- 8074 Oct, [place] [id number] [place] [address] 75791- 8458 Sep, DM (diabetes mellitus) with complications E11.8 [place] [address] [place] [address] [id number] [place] [address] 46355- 5807 Sep, DM (diabetes mellitus) with complications E11.8 ; Essential hypertension I10 ; Gastroesophageal reflux disease, esophagitis presence not specified K21.9 ; Hyperlipidemia, unspecified hyperlipidemia type E78.5 ; Tobacco abuse Z72.0 ; Vitamin D deficiency E55.9 ; History of CVA with residual deficit I69.30 and Seasonal allergic rhinitis due to pollen J30.1 [place] [address], [place] [address]- 9876 Sep, [place] [id number] [place] [address] 49210- 2030 Aug, [facility] [place] [id number] [place] [address] 70464 -2764 Aug, Dysuria R30.0 ; Acute cystitis with hematuria N30.01 and Middle ear effusion, right H65.91 [place] [address], [place] [address]- 8136 Aug, Other complicated headache syndrome G44.59 [facility] [id number] [place] [address] 75645- 3451 Aug, DM (diabetes mellitus) with complications E11.8 [facility] [id number] [place] [address] 96355- 8718 14 Aug, 2016 Dysuria R30.0 [facility] [id number] [place] [address] 60806- 8592 Aug, Dysuria R30.0 [facility] [id number] [place] [address] 48624- 3865 Aug, [facility] [id number] [place] [address] 26117- 0891 July, [facility] [id number] [place] [address] 28633- 3561 July, [facility] [id number] [place] [address] 67333- 4028 July, DM (diabetes mellitus) with complications E11.8 [facility] [id number] [place] [address] 76894- 1111 July, Other complicated headache syndrome G44.59 [facility] [address] [place] [address] 64785- 5669 July, [facility] [address] [place] [address] 57921 -0930 July, Dysuria R30.0 and Acute cystitis with hematuria N30.01 [facility] [id number] [place] [address] 25785- 5444 July, [facility] [id number] [place] [address] 06664- 9248 July, Other complicated headache syndrome G44.59 [facility] [id number] [place] [address] 44165 -8369 Jun, Exposure to strep throat Z20.818 and Acute upper respiratory infection, unspecified J06.9 [place] [address] 61825- 6314 Jun, [facility] [id number] [place] [address] 13426- 4271 Jun, DM (diabetes mellitus) with complications E11.8 and Gastroesophageal reflux disease, esophagitis presence not specified K21.9 [place] [address] 27372- 3337 Jun, [place] [address] 80928- 6466 Jun, Dizziness R42 [facility] [address] 48304 -2112 Jun, [place] [address] 16543- 7896 Jun, [facility] [address] 83072 -7066 May, Seasonal allergic rhinitis, unspecified allergic rhinitis trigger J30.2 [place] [address] [id number] [place] [address] 24847- 4996 May, [place] [address] [place] [id number] [place] [address] 07254- 2156 May, DM (diabetes mellitus) with complications E11.8 [...] Seasonal allergic rhinitis due to pollen J30.1 [place] [address] [place] [id number] [place] [address] 27673- 2530 May, Gastroesophageal reflux disease, esophagitis presence not specified K21.9 [facility] [address], [place] [address]- 4442 May, [facility] [address], [place] [address]- 7366 Apr, [facility] [address], [place] [address]- 6507 Apr, [facility] [address] [place] [address] 70865- 3991 Mar, [facility] [address], [place] [address]- 0392 Mar, [facility] [id number] [place] [address] 65498- 3838 Mar, [facility] [id number] [place] [address] 59225- 2151 Mar, [facility] [id number] [place] [address] 80754- 3511 Feb, [facility] [address] [place] [address] 57776- 1260 Feb, [facility] [address], [place] [address]- 6476 Feb, [facility] [address], [place] [address]- 8541 Feb, Major depressive disorder, recurrent episode, moderate F33.1 ; Generalized anxiety disorder F41.1 ; Essential hypertension I10 ; DM ( diabetes mellitus) with complications E11.8 ; Hyperlipidemia, unspecified hyperlipidemia type E78.5 ; 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 and Gastroesophageal reflux disease, esophagitis presence not specified K21.9 [facility] WALK IN [facility] [address], [place] [address]97 Feb, Other viral agents as the cause of diseases classified elsewhere B97.89 and Acute upper respiratory infection, unspecified J06.9 [facility] [address] [place] [address] 81034- 9969 Jan, [facility] [id number] [place] [address] 53980- 0967 Jan, [facility] [address] [place] [address] 59822 -4444 Jan, Acute bronchitis, unspecified organism J20.9 [facility] [id number] [place] [address] 03527- 3853 Jan, [facility] [id number] [place] [address] 49434- 5394 Jan, History of CVA with residual deficit I69.30 [facility] [address] [place] [id number] [place] [address] 52317- 6410 Jan, [facility] [id number] [place] [address] 95719- 7590 Jan, Acute bronchitis, unspecified organism J20.9 [facility] [id number] [place] [address] 10651- 4898 Jan, [facility] [id number] [place] [address] 25548- 8918 Dec, History of CVA with residual deficit I69.30 [facility] [id number] [place] [address] 64531- 0882 Dec, [facility] [id number] [place] [address] 13958- 3466 Dec, Other chronic pain G89.29 ; DM (diabetes mellitus) with complications E11.8 and History of CVA with residual deficit I69.30 [facility] [address] [place] [address] 16706- 8056 Nov, Major depressive disorder, recurrent episode, moderate F33.1 ; Irregular heart rhythm I49.9 ; Essential hypertension I10 ; History of CVA with residual deficit I69.30 ; DM (diabetes mellitus) with complications E11.8 ; Gastroesophageal reflux disease, esophagitis presence not specified K21.9 ; Hyperlipidemia, unspecified hyperlipidemia type E78.5 ; 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 ; Other chronic pain G89.29 and Generalized anxiety disorder F41.1 [place] [id number] [place] [address] 30592- 6321 Oct, Generalized anxiety disorder F41.1 ; Major depressive disorder, recurrent episode, moderate F33.1 ; Essential hypertension I10 ; History of CVA with residual deficit I69.30 ; DM (diabetes mellitus) with complications E11.8 ; Gastroesophageal reflux disease, esophagitis presence not specified K21.9 ; Hyperlipidemia, unspecified hyperlipidemia type E78.5 ; Other chronic pain G89.29 and Bacterial conjunctivitis of left eye H10.[address] 41595- 7709 Sep, Chronic pain syndrome G89.4 and DM (diabetes mellitus) with complications E11.[address] 78423- 4242 Sep, Irregular heart rhythm I49.9 ; Routine health maintenance Z00.00 ; Essential hypertension I10 ; History of CVA with residual deficit I69.30 ; Gastroesophageal reflux disease, esophagitis presence not specified K21.9 ; DM (diabetes mellitus) with complications E11.8 ; Hyperlipidemia, unspecified hyperlipidemia type E78.5 and Other complicated headache syndrome G44.59 [place] [id number] [place] [address] 44241- 8863 Jun, [address] 28126- 6745 Jun, [place] [id number] [place] [address] 03516- 8617 Aug, [address] 40161- 4795 Jun, IMMUNIZATIONS No Known Immunizations SOCIAL HISTORY Never Assessed REASON FOR VISIT Lab (walk-in) PLAN OF CARE VITAL SIGNS MEDICATIONS No Known Medications RESULTS Name Result Date Reference Range HEPATITIS PROFILE 2017-06-23 HEPATITIS A IGM NON-REACTIVE NON-REACTIVE HEPATITIS B SURFACE ANTIGEN NON-REACTIVE NON-REACTIVE HEPATITIS B CORE ANTIBODY (IGM) NON-REACTIVE NON-REACTIVE HEPATITIS C ANTIBODY NON-REACTIVE NON-REACTIVE SIGNAL TO CUT-OFF 0.02 <1.00 GGT 2017-06-23 GGT 198 3-55 CBC 2017-06-23 WHITE BLOOD CELL COUNT 12.8 3.8-10.8 RED BLOOD CELL COUNT 4.89 3.80-5.10 HEMOGLOBIN 15.0 11.7-15.5 HEMATOCRIT 47.0 35.0-45.0 MCV 96.1 80.0-100.0 MCH 30.7 27.0-33.0 MCHC 31.9 32.0-36.0 RDW 12.4 11.0-15.0 PLATELET COUNT 349 140-400 MPV 10.8 7.5-12.5 ABSOLUTE NEUTROPHILS 7155 7549-7963 ABSOLUTE LYMPHOCYTES 4211 850-3900 ABSOLUTE MONOCYTES 1152 200-950 ABSOLUTE EOSINOPHILS 166 15-500 ABSOLUTE BASOPHILS 115 0-200 NEUTROPHILS 55.9 LYMPHOCYTES 32.9 MONOCYTES 9.0 EOSINOPHILS 1.3 BASOPHILS 0.9 PROCEDURES Procedure Date Ordered Result Body Site LAB [facility] June 23, 2017 VENIPUNCT, ROUTINE* June 23, 2017 INSTRUCTIONS MEDICATIONS ADMINISTERED No Known Medications MEDICAL (GENERAL) HISTORY Type Description Date Medical History diabetes mellitus Medical History hyperlipidemia Medical History hypertension Medical History Anxiety disorder Medical History Blood Clotting Disorder- Dr Galvan at [facility] Medical History Possible Anemia (currently under work up) - Dr Galvan [facility] Medical History irregular heart beat-sees dr. hassan Medical History history of pancreatitis Medical History gerd Medical History History of CVA with residual deficit Medical History Other complicated headache syndrome Medical History Stokes syndrome Surgical History tubal ligation Surgical History section Surgical History cholecystectomy Surgical History Toe Nail Removal x2 Hospitalization History Brain Stem Strokes x5. Has been hospitalized at then transfered to [place]. 2014 Hospitalization History Child Hospitalization History abd pain and shakiness - [facility] ED visit [facility] Hospitalization History [facility] ED for URI 04/16/17 Hospitalization History via [place] [facility] er 08/16/17
--- OUTSIDE RECORDS SUMMARY | 2017-11-04 16:32 | XMS REPORT ---
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 Pan Salt Name Role Phone HUIZARSOTERO Cox Unavailable PROBLEMS Type Condition ICD9-CM Code OZG50-SE Code Onset Dates Condition Status SNOMED Code Problem Tobacco abuse Z72.0 Active 714663676 Problem Seasonal allergic rhinitis due to pollen J30.1 Active 96190034 Problem Tobacco abuse counseling Z71.6 Active 858083065 Problem Abnormal drug screen R89.2 Active 458549447 Problem Acute non intractable tension-type headache G44.209 Active 299787248 Problem jail current use of insulin Z79.4 Active 806289924 Problem History of CVA with residual deficit I69.30 Active 482026187 Problem Chronic pain syndrome G89.4 Active 475859453 Problem Type 2 diabetes mellitus with hyperglycemia E11.65 Active 18234237 Problem Elevated liver enzymes R74.8 Active 641240602 Problem Generalized anxiety disorder F41.1 Active 49123672 Problem Vitamin D deficiency E55.9 Active 30931752 Problem Major depressive disorder, recurrent episode, moderate F33.1 Active 928912737 Problem Hyperlipidemia, unspecified hyperlipidemia type E78.5 Active 55488517 Problem Gastroesophageal reflux disease, esophagitis presence not specified K21.9 Active 810564759 Problem 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 Active 385166682 Problem Essential hypertension I10 Active 50870295 Problem DM (diabetes mellitus) with complications E11.8 Active 10306040 Problem Other chronic pain G89.29 Active 80482429 ALLERGIES Substance Reaction Event Type Date Status Penicillin V Potassium Unknown Drug Allergy May, Active Erythromycin Base Unknown Drug Allergy May, Active Codeine Unknown Drug Allergy May, Active ENCOUNTERS Encounter Location Date Diagnosis [facility] [address] [facility] [id number] [address] Sep, [facility] [address] [address] Sep, [facility] [address] [address] Sep, DM (diabetes mellitus) with complications E11.8 ; Generalized anxiety disorder F41.1 and Chronic pain syndrome G89.4 [place] [address] [address] Sep, Generalized anxiety disorder F41.1 ; Chronic pain syndrome G89.4 ; Abnormal drug screen R89.2 and Other chest pain R07.89 [place] [address] [address] 6[address] Aug, Dysuria R30.0 [place] [address] 13814- 9451 Aug, Generalized anxiety disorder F41.1 ; Chronic pain syndrome G89.4 and Dysuria R30.0 [place] [address] 75[address]- 8476 Aug, Acute cystitis with hematuria N30.01 and Candidal dermatitis B37.2 [place] [address] 0[address]- 6946 Aug, Dysuria R30.0 [place] [address] 34[address]- 3797 Aug, [facility] [address] [address] Aug, Dysuria R30.0 [place] [address] [address]- 89[address] Aug, [place] [address] 6[address]- 1228 July, Cervicalgia M54.2 ; Acute non intractable tension-type headache G44.209 ; Type 2 diabetes mellitus with hyperglycemia E11.65 and jail current use of insulin Z79.4 [place] [address] [place] [id number] [place] [address] 22928- 8054 July, Generalized anxiety disorder F41.1 and Chronic pain syndrome G89.4 [place] [address] [place] [id number] [place] [address] 56506- 9877 July, Abscess L02.91 [place] [address] [place] [id number] [place] [address] 61591- 8174 July, [place] [address] 385[address]- 9482 July, [place] [address] 878[address]- 86[address] July, Type 2 diabetes mellitus with hyperglycemia E11.65 ; jail current use of insulin Z79.4 ; Elevated [...] pain syndrome G89.4 and Vaginal candidiasis B37.3 [place] [address] [place] [id number] [place] [address] 44672- 7329 Jun, Generalized anxiety disorder F41.1 and Other chronic pain G89.29 [place] [address] [place] [id number] [place] [address] 44151- 3009 Jun, [place] [address] [place] [id number] [place] [address] 61618- 6953 Jun, [place] [id number] [place] [address] 33056- 6616 Jun, Abnormal levels of other serum enzymes R74.8 [place] [address] [place] [id number] [place] [address] 15094- 9396 Jun, Abnormal levels of other serum enzymes R74.8 [facility] [address] [place] [id number] [place] [address] 19010- 3958 Jun, Elevated liver enzymes R74.8 [facility] [address] 29904- 2278 Jun, Elevated liver enzymes R74.8 [facility] [address] 83849- 1488 May, Right upper quadrant pain R10.11 ; Cervicalgia M54.2 and High risk medication use Z79.899 [place] [address] 69168- 5851 May, Generalized anxiety disorder F41.1 and Other chronic pain G89.29 [place] [address] 24260- 7027 May, Canker sores oral K12.0 [place] [address] 16469- 4944 May, Generalized anxiety disorder F41.1 and Other chronic pain G89.29 [facility] [address] 62146- 8820 May, [facility] [address] [place] [id number] [place] [address] 14458- 6232 Apr, [facility] [address] [place] [id number] [place] [address] 15599 -6824 Apr, Acute cystitis with hematuria N30.01 and Dysuria R30.0 [facility] [address] [place] [id number] [place] [address] 37559- 4185 Apr, [facility] [address] 90745- 3680 Apr, [facility] [address] [place] [id number] [place] [address] 36633- 9532 Apr, DM (diabetes mellitus) with complications E11.8 [facility] [id number] [place] [address] 42745- 1580 06 Apr, 2017 DM (diabetes mellitus) with complications E11.8 [place] [address] [place] [id number] [place] [address] 40465- 8421 03 Apr, 2017 [facility] [address] 53597- 0098 Apr, [facility] [address] 24794- 9692 Apr, Other chronic pain G89.29 ; Generalized anxiety disorder F41.1 ; Cervicalgia M54.2 and Controlled substance agreement signed Z79.899 [facility] [address] [address] Mar, Abdominal pain R10.9 and Viral gastroenteritis A08.4 [place] [address] 66563- 9291 Mar, [place] [address] 29590- 1820 Mar, [place] [address] [place] [id number] [place] [address] 97239- 5982 Mar, DM (diabetes mellitus) with complications E11.8 ; Type 2 diabetes mellitus with hyperglycemia E11.65 ; 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.4 ; Essential hypertension I10 ; Bronchitis J40 ; Major depressive disorder , recurrent episode, moderate F33.1 ; Hyperlipidemia, unspecified hyperlipidemia type E78.5 ; Tobacco abuse Z72.0 ; Tobacco abuse counseling Z71.6 ; History of CVA with residual deficit I69.30 ; Gastroesophageal reflux disease, esophagitis presence not specified K21.9 and 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 [place] [address] [place] [id number] [place] [address] 47648- 7760 Mar, [facility] [address] 13324- 4248 Mar, DM (diabetes mellitus) with complications E11.8 ; Abnormal lung sounds R09.89 ; Bronchitis J40 and Hyperlipidemia, unspecified hyperlipidemia type E78.5 [facility] [address] [address] Mar, URI, acute J06.9 [place] [address] 52209- 5358 Mar, [place] [address] 89261- 5079 Mar, DM (diabetes mellitus) with complications E11.8 [place] [address] 28754- 5207 Mar, Other chronic pain G89.29 and Generalized anxiety disorder F41.1 [place] [address] 77901- 4790 Feb, [place] [address] 18517- 8358 Feb, Mass of left lung R91.8 and Cervicalgia M54.2 [place] [address] 93818- 4149 Feb, [place] [address] 54870- 4296 Feb, [facility] [place] [address] 311[address]35 Feb, Cough R05 and Bronchitis J40 [facility] [place] [address] 40412 -3606 Feb, Acute nasopharyngitis J00 and Bronchitis J40 [place] [address] 23779- 0308 Feb, Other chronic pain G89.29 and Generalized anxiety disorder F41.1 [place] [address] 04310- 8221 Jan, Encounter for immunization Z23 [facility] [place] [address] [address] Jan, [facility] [address] [address] Jan, [place] [address] 74852- 5521 Jan, Canker sores oral K12.[address] [address]- 86[address] 14 Jan, 2017 [place] [address] 16007- 7623 07 Jan, 2017 Other chronic pain G89.29 and Generalized anxiety disorder F41.[address] 704[address]- 4305 06 Jan, 2017 Cough R05 and Bronchitis J40 [facility] [place] [address] 16[address] -0928 Jan, Bronchitis J40 [place] [address] 69207- 8086 Dec, Vitamin D deficiency E55.9 [place] [address] 34393- 5590 Dec, DM (diabetes mellitus) with complications E11.[address] 23472- 1290 Dec, DM (diabetes mellitus) with complications E11.8 and Vitamin D deficiency E55.9 [place] [address] 88313- 4774 Dec, DM (diabetes mellitus) with complications E11.8 ; Essential hypertension I10 ; Hyperlipidemia, unspecified hyperlipidemia type E78.5 ; Vitamin D deficiency E55.9 ; Gastroesophageal reflux disease, esophagitis presence not specified K21.9 ; 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 ; Other chronic pain G89.29 ; Encounter for immunization Z23 and Generalized anxiety disorder F41.1 [place] [id number] [place] [address] 93920- 7862 12 Nov, 2016 History of CVA with residual deficit I69.30 [place] [address] [place] [id number] [place] [address] 09079- 1155 Nov, DM (diabetes mellitus) with complications E11.8 [place] [address] 79951- 2424 06 Nov, 2016 Left otitis media with effusion H65.92 ; Bronchitis J40 and Canker sores oral K12.0 [place] [id number] [place] [address] 86714- 6451 Oct, [place] [address] 09201- 2762 Oct, DM (diabetes mellitus) with complications E11.8 [place] [address] 06866- 5929 02 Oct, 2016 [place] [address] [place] [id number] [place] [address] 32108- 6621 Sep, DM (diabetes mellitus) with complications E11.8 [place] [address] [place] [id number] [place] [address] 33284- 4096 Sep, DM (diabetes mellitus) with complications E11.8 ; Essential hypertension I10 ; Gastroesophageal reflux disease, esophagitis presence not specified K21.9 ; Hyperlipidemia, unspecified hyperlipidemia type E78.5 ; Tobacco abuse Z72.0 ; Vitamin D deficiency E55.9 ; History of CVA with residual deficit I69.30 and Seasonal allergic rhinitis due to pollen J30.1 [place] [address] [place] [id number] [place] [address] 12978- 1516 Sep, [place] [address] [place] [id number] [place] [address] 05156- 6750 Aug, [facility] [address] [place] [id number] [place] [address] 24152 -2116 Aug, Dysuria R30.0 ; Acute cystitis with hematuria N30.01 and Middle ear effusion, right H65.91 [facility] [address] [place] [address] 28165- 1516 Aug, Other complicated headache syndrome G44.59 [facility] [address] [address] Aug, DM (diabetes mellitus) with complications E11.8 [facility] [address] [place] [id number] [place] [address] 23433- 3786 14 Aug, 2016 Dysuria R30.0 [facility] [address] [place] [id number] [place] [address] 03907- 5596 Aug, Dysuria R30.0 [facility] [address] [place] [id number] [place] [address] 21067- 1384 Aug, [facility] [address] [place] [id number] [place] [address] 84851- 2807 July, [facility] [address] [place] [id number] [place] [address] 58654- 2158 July, [facility] [address] [place] [id number] [place] [address] 77386- 9403 July, DM (diabetes mellitus) with complications E11.8 [facility] [address] [address] 6563 July, Other complicated headache syndrome G44.59 [facility] [address] [id number] [address] 4953 July, [facility] [address] [address] July, Dysuria R30.0 and Acute cystitis with hematuria N30.01 [facility] [address] [address]12 July, [facility] [address] [place] [id number] [place] [address] 35232- 5603 July, Other complicated headache syndrome G44.59 [facility] [address] 89696 -8415 Jun, Exposure to strep throat Z20.818 and Acute upper respiratory infection, unspecified J06.9 [place] [address] 88831- 4386 Jun, [place] [address] 60498- 6724 Jun, DM (diabetes mellitus) with complications E11.8 and Gastroesophageal reflux disease, esophagitis presence not specified K21.9 [place] [address] 32994- 1226 Jun, [place] [address] 37996- 8527 Jun, Dizziness R42 [facility] [place] [address] 82886 -9936 Jun, [place] [address] 38141- 6742 Jun, [facility] [place] [address] 99577 -8566 May, Seasonal allergic rhinitis, unspecified allergic rhinitis trigger J30.2 [place] [address] 80324- 1623 May, [place] [address] 28787- 3009 May, DM (diabetes mellitus) with complications E11.8 [...] Seasonal allergic rhinitis due to pollen J30.1 [place] [address] [address]- [address] May, Gastroesophageal reflux disease, esophagitis presence not specified K21.9 [facility] [address] [address]- 1533 May, [facility] [address] [address]- 4120 Apr, [facility] [address] [place] [id number] [place] [address] 51979- 0536 Apr, [facility] [address] [place] [address] 55720- 2093 Mar, [facility] [id number] [place] [address] 77057- 3978 Mar, [facility] [address] [place] [id number] [place] [address] 59602- 7144 Mar, [facility] [address] [place] [id number] [place] [address] 68380- 3671 Mar, [facility] [address] [place] [address] 38608- 8733 Feb, [facility] [address] [address]- 9252 Feb, [facility] [address], [place] [address]- 2427 Feb, [facility] [address], [place] [address]- 0432 Feb, Major depressive disorder, recurrent episode, moderate F33.1 ; Generalized anxiety disorder F41.1 ; Essential hypertension I10 ; DM ( diabetes mellitus) with complications E11.8 ; Hyperlipidemia, unspecified hyperlipidemia type E78.5 ; 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 and Gastroesophageal reflux disease, esophagitis presence not specified K21.9 [facility] [address], [place] [address] Feb, Other viral agents as the cause of diseases classified elsewhere B97.89 and Acute upper respiratory infection, unspecified J06.9 [facility] [address] [place] [id number] [place] [address] 16535- 9632 Jan, [facility] [address] [place] [id number] [place] [address] 48041- 9987 Jan, [facility] [address] [place] [id number] [place] [address] 85989 -5171 Jan, Acute bronchitis, unspecified organism J20.9 [facility] [address] [place] [id number] [place] [address] 44463- 4271 Jan, [facility] [address] [place] [id number] [place] [address] 05601- 6973 Jan, History of CVA with residual deficit I69.30 [place] [address] [place] [id number] [place] [address] 62971- 6528 Jan, [facility] [address] [place] [id number] [place] [address] 65378- 7409 Jan, Acute bronchitis, unspecified organism J20.9 [facility] [address] [place] [id number] [place] [address] 64708- 9061 Jan, [facility] [address] [place] [id number] [place] [address] 79563- 7201 Dec, History of CVA with residual deficit I69.30 [place] [address] [place] [id number] [place] [address] 02001- 5501 Dec, [facility] [address] [place] [id number] [place] [address] 96783- 8268 Dec, Other chronic pain G89.29 ; DM (diabetes mellitus) with complications E11.8 and History of CVA with residual deficit I69.30 [place] [address] [place] [address] 88230- 5796 Nov, Major depressive disorder, recurrent episode, moderate F33.1 ; Irregular heart rhythm I49.9 ; Essential hypertension I10 ; History of CVA with residual deficit I69.30 ; DM (diabetes mellitus) with complications E11.8 ; Gastroesophageal reflux disease, esophagitis presence not specified K21.9 ; Hyperlipidemia, unspecified hyperlipidemia type E78.5 ; 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 ; Other chronic pain G89.29 and Generalized anxiety disorder F41.1 [place] [address] [place] [address] 60138- 9541 Oct, Generalized anxiety disorder F41.1 ; Major depressive disorder, recurrent episode, moderate F33.1 ; Essential hypertension I10 ; History of CVA with residual deficit I69.30 ; DM (diabetes mellitus) with complications E11.8 ; Gastroesophageal reflux disease, esophagitis presence not specified K21.9 ; Hyperlipidemia, unspecified hyperlipidemia type E78.5 ; Other chronic pain G89.29 and Bacterial conjunctivitis of left eye H10.9 [place] [id number] [place] [address] 66580- 2095 Sep, Chronic pain syndrome G89.4 and DM (diabetes mellitus) with complications E11.8 [place] [id number] [place] [address] 71867- 2123 Sep, Irregular heart rhythm I49.9 ; Routine health maintenance Z00.00 ; Essential hypertension I10 ; History of CVA with residual deficit I69.30 ; Gastroesophageal reflux disease, esophagitis presence not specified K21.9 ; DM (diabetes mellitus) with complications E11.8 ; Hyperlipidemia, unspecified hyperlipidemia type E78.5 and Other complicated headache syndrome G44.59 [place] [address] [place] [id number] [place] [address] 64367- 4543 Jun, [place] [address] [place] [id number] [place] [address] 24052- 9983 Jun, [place] [address] 28163- 1053 Aug, [place] [address] [place] [id number] [place] [address] 42702- 3710 Jun, IMMUNIZATIONS No Known Immunizations SOCIAL HISTORY Never Assessed REASON FOR VISIT pain in [facility], -pain along diaphram into the right side of chest. Feels as if its a muscle spasm, started 3 days ago and has gotten worse. , -pt went to ER last night but didnt want to wait for the 3 hours they were behind. PLAN OF CARE Activity Details Follow Up 3 Months, prn Reason:chm VITAL SIGNS Height 62 in 2017-06-17 Weight 198.8 lbs 2017-06-17 Temperature 97.2 degrees Fahrenheit 2017-06-17 Heart Rate 86 bpm 2017-06-17 Respiratory Rate 20 2017-06-17 BMI 36.36 kg/m2 2017-06-17 Blood pressure systolic 118 mmHg 2017-06-17 Blood pressure diastolic 72 mmHg 2017-06-17 MEDICATIONS Medication Instructions Dosage Frequency Start Date End Date Duration Status BD Pen Needle Mini U/F 31 gauge USE ONCE DAILY WITH INSULIN PENS 90 Active Test strips 8h Active Plavix 75 MG Orally Once a day 1 tablet 24h Active Walker - as directed Jan, Active Metoprolol Tartrate 25 MG Orally Twice a day 1 tablet with food 12h Active Hydrocodone-Acetaminophen 10-325 MG Orally every 6 hrs 1 tablet as needed 6h May, 28 days Active Xanax 1 MG Orally 4 times a day 1 tablet 6h 28 days Active Fluticasone Propionate 50 MCG/ACT Nasally Once a day 1 spray in each nostril 24h Feb, 30 day(s) Not-Taking NovoLog 100 UNIT/ML Subcutaneous 3 times a day 10 units with meals 8h 29 Mar, 2017 12 months Not-Taking Pen [place] 31 gauge subcutaneously twice a day DX: E11.8 as directed Active Senna S 8.6-50 MG Orally twice a day 1 tablet 12h 6 Aug, 2017 30 days Active Famotidine 20 mg Orally Twice a day 1 tablet 12h 21 Apr, 2017 Active [place] Saline Nasal Gel 1 Nasally 2 times a day apply thin layer to nares bilat 12h 11 Feb, 2017 Feb, 12 months Not-Taking Hydrochlorothiazide 25 MG Orally Once a day 1 tablet 24h Active Levemir Flexpen 100 UNIT/ML Subcutaneous 2 times a day 35 units 12h 30 days Active Atorvastatin Calcium 80 MG Orally Once a day 1 tablet 24h Active Naproxen 500 mg Orally bid prn 1 tablet 7 Sep, 2017 90 days Active Bath/Shower Seat 1 please provide one adult shower seat for patient use one time shower/bath seat for bathing Dec, Active Triamcinolone Acetonide 0.1 % oral lesion twice a day 1 application at bedtime 12h Nov, 07 days Active Albuterol Sulfate 0.63 MG/3ML Inhalation every 6 hrs 3 ml as needed 6h Feb, 30 days Not-Taking Potassium Chloride ER 10 TAKE ONE TABLET BY MOUTH TWICE A DAY WITH FOOD 90 Active CompAir Nebulizer - as directed Feb, 30 days Not-Taking Lancets - Active One Touch/One Touch II Starter 1 glucometer subcutaneously 3 times a day to take blood sugars daily Dispense as insurance allows 8h Sep, Active ASA Oral Once a day 1 tab 24h Active Carafate 1 GM Orally Twice a day 1 tablet on an empty stomach 12h May, Active Diltiazem HCl ER 120 MG Orally Once a day 1 capsule on an empty stomach in the morning 24h Active OneTouch Delica Lancets 33G 33 TEST BLOOD SUGAR THREE TIMES A DAY E11.8 30 Active ProAir HFA 108 (90 Base) MCG/ACT Inhalation every 6 hrs 2 puffs as needed 6h Jan, 7 days Not-Taking Fenofibrate 54 TAKE ONE TABLET BY MOUTH DAILY WITH A MEAL 90 Active MetFORMIN HCl ER 750 MG Orally Once a day 1 tablet with evening meal 24h 30 days Active Onglyza 5 Orally Once a day 1 tablet 24h Active Baclofen 20 mg Orally 2 times a day if needed 1 tablet with food or milk Feb, 30 day(s) Active OneTouch Verio - TEST BLOOD SUGAR THREE TIMES A DAY E11.8 30 Active Pantoprazole Sodium 20 mg Orally 2 times a day 1 tablets 12h May, Active RESULTS No Results PROCEDURES Procedure Date Ordered Result Body Site LAB NOT BILLED BY [facility] June 17, 2017 DRUG TEST PRSMV CHEM ANLYZR June 17, 2017 [facility] VISIT ESTABLISHED PATIENT June 17, 2017 VICENTA, ROUTINE* June 17, 2017 INSTRUCTIONS MEDICATIONS ADMINISTERED No Known Medications MEDICAL (GENERAL) HISTORY Type Description Date Medical History diabetes mellitus Medical History hyperlipidemia Medical History hypertension Medical History Anxiety disorder Medical History Blood Clotting Disorder- Dr Galvan at [facility] Medical History Possible Anemia (currently under work up) - Dr Galvan [facility] Medical History irregular heart beat-sees [...] Has been hospitalized at then transfered to [place]. 2015 Hospitalization History Child Hospitalization History abd pain and shakiness - [facility] ED visit [facility] Hospitalization History [facility] ED for URI 04/16/17 Hospitalization History via [facility] [place] 08/16/17
--- OUTSIDE RECORDS SUMMARY | 2017-11-04 16:33 | XMS REPORT ---
Author Author GAYE SOTERO Organization [facility] Address [address] [place] [address] Care Team Providers Care Bufferer Name Role Phone HUIZARSOTERO Cox Unavailable PROBLEMS Type Condition ICD9-CM Code FUA45-XX Code Onset Dates Condition Status SNOMED Code Problem Tobacco abuse Z72.0 Active 838436801 Problem Seasonal allergic rhinitis due to pollen J30.1 Active 39888699 Problem Tobacco abuse counseling Z71.6 Active 267425209 Problem Abnormal drug screen R89.2 Active 762675713 Problem Acute non intractable tension-type headache G44.209 Active 468422907 Problem [facility] current use of insulin Z79.4 Active 550020537 Problem History of CVA with residual deficit I69.30 Active 592118383 Problem Chronic pain syndrome G89.4 Active 854797239 Problem Type 2 diabetes mellitus with hyperglycemia E11.65 Active 01820795 Problem Elevated liver enzymes R74.8 Active 939130075 Problem Generalized anxiety disorder F41.1 Active 08677769 Problem Vitamin D deficiency E55.9 Active 79510998 Problem Major depressive disorder, recurrent episode, moderate F33.1 Active 837504775 Problem Hyperlipidemia, unspecified hyperlipidemia type E78.5 Active 85904013 Problem Gastroesophageal reflux disease, esophagitis presence not specified K21.9 Active 773696357 Problem 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 Active 457479330 Problem Essential hypertension I10 Active 76197618 Problem DM (diabetes mellitus) with complications E11.8 Active 22849144 Problem Other chronic pain G89.29 Active 12411192 ALLERGIES No Information ENCOUNTERS Encounter Location Date Diagnosis [facility] [address] [facility] [id number] [address] Sep, [facility] [address] [facility] [id number], [place] [address] Sep, DM (diabetes mellitus) with complications E11.8 ; Generalized anxiety disorder F41.1 and Chronic pain syndrome G89.4 [facility] [address] [place] [id number] [place] [address] 98509- 5439 Sep, Generalized anxiety disorder F41.1 ; Chronic pain syndrome G89.4 ; Abnormal drug screen R89.2 and Other chest pain R07.89 [facility] [address] [place] [id number] [place] [address] 18532- 8539 Aug, Dysuria R30.0 [facility] [address] [address]- 3549 Aug, Generalized anxiety disorder F41.1 ; Chronic pain syndrome G89.4 and Dysuria R30.0 [place] [address] 97264- 6130 Aug, Acute cystitis with hematuria N30.01 and Candidal dermatitis B37.2 [place] [address] 83139- 7076 Aug, Dysuria R30.0 [facility] [address] 35150- 8133 Aug, [facility] [address] [address] Aug, Dysuria R30.0 [facility] [address] [place] [id number] [place] [address] 24672- 9961 Aug, [facility] [address] 38489- 5375 July, Cervicalgia M54.2 ; Acute non intractable tension-type headache G44.209 ; Type 2 diabetes mellitus with hyperglycemia E11.65 and [facility] current use of insulin Z79.4 [facility] [address] [place] [id number] [place] [address] 72842- 1319 July, Generalized anxiety disorder F41.1 and Chronic pain syndrome G89.4 [facility] [address] 50368- 5299 July, Abscess L02.91 [place] [id number] [place] [address] 46327- 2042 July, [place] [address] [place] [id number] [place] [address] 10865- 9283 July, [place] [address] [place] [id number] [place] [address] 88332- 8969 July, Type 2 diabetes mellitus with hyperglycemia E11.65 ; 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 ; Elevated [...] pain syndrome G89.4 and Vaginal candidiasis B37.3 [place] [address] [place] [id number] [place] [address] 15662- 9282 Jun, Generalized anxiety disorder F41.1 and Other chronic pain G89.29 [place] [address] [place] [id number] [place] [address] 41444- 4071 Jun, [place] [address] [place] [id number] [place] [address] 56890- 7968 Jun, [place] [address] [place] [id number] [place] [address] 60093- 2712 Jun, Abnormal levels of other serum enzymes R74.8 [place] [address] [place] [id number] [place] [address] 03812- 7941 Jun, Abnormal levels of other serum enzymes R74.8 [place] [address] [place] [id number] [place] [address] 26113- 5105 Jun, Elevated liver enzymes R74.8 [place] [address] [place] [id number] [place] [address] 77757- 2729 Jun, Elevated liver enzymes R74.8 [place] [address] [place] [id number] [place] [address] 99252- 8039 30 May, 2017 Right upper quadrant pain R10.11 ; Cervicalgia M54.2 and High risk medication use Z79.899 [facility] [address] [place] [id number] [place] [address] 22050- 2665 May, Generalized anxiety disorder F41.1 and Other chronic pain G89.29 [place] [address] [place] [id number] [place] [address] 73127- 6084 May, Canker sores oral K12.0 [place] [address] [place] [id number] [place] [address] 08891- 6291 May, Generalized anxiety disorder F41.1 and Other chronic pain G89.29 [place] [address] [place] [id number] [place] [address] 89126- 8673 May, [facility] [id number] [place] [address] 40793- 1384 Apr, [facility] [id number] [place] [address] 81048 -7737 Apr, Acute cystitis with hematuria N30.01 and Dysuria R30.0 [facility] [address] [id number] [place] [address] 19587- 3423 Apr, [facility] [address] [id number] [place] [address] 13453- 1107 Apr, [facility] [address] [place] [id number] [place] [address] 06423- 6736 Apr, DM (diabetes mellitus) with complications E11.8 [facility] [address] [place] [id number] [place] [address] 58790- 0191 06 Apr, 2017 DM (diabetes mellitus) with complications E11.8 [facility] [address] [id number] [place] [address] 38458- 4719 Apr, [facility] [id number] [place] [address] 61813- 9658 Apr, [place] [address] 68843- 4685 Apr, Other chronic pain G89.29 ; Generalized anxiety disorder F41.1 ; Cervicalgia M54.2 and Controlled substance agreement signed Z79.899 [facility] [place] [address] 87812 -1257 Mar, Abdominal pain R10.9 and Viral gastroenteritis A08.[address] 29514- 7368 Mar, [place] [address] 22985- 3620 Mar, [place] [address] 38478- 2177 Mar, DM (diabetes mellitus) with complications E11.8 ; Type 2 diabetes mellitus with hyperglycemia E11.65 ; 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 ; Essential hypertension I10 ; Bronchitis J40 ; Major depressive disorder , recurrent episode, moderate F33.1 ; Hyperlipidemia, unspecified hyperlipidemia type E78.5 ; Tobacco abuse Z72.0 ; Tobacco abuse counseling Z71.6 ; History of CVA with residual deficit I69.30 ; Gastroesophageal reflux disease, esophagitis presence not specified K21.9 and 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 [place] [address] [place] [id number] [place] [address] 72030- 4061 Mar, [place] [address] [place] [id number] [place] [address] 99660- 5460 Mar, DM (diabetes mellitus) with complications E11.8 ; Abnormal lung sounds R09.89 ; Bronchitis J40 and Hyperlipidemia, unspecified hyperlipidemia type E78.5 [facility] [address] [place] [id number] [place] [address] 27161 -8690 Mar, URI, acute J06.9 [place] [address] 22692- 5190 Mar, [place] [address] 69815- 0254 Mar, DM (diabetes mellitus) with complications E11.8 [place] [address] 98560- 5506 Mar, Other chronic pain G89.29 and Generalized anxiety disorder F41.1 [place] [address] 05669- 4481 Feb, [place] [address] 03741- 6384 Feb, Mass of left lung R91.8 and Cervicalgia M54.2 [place] [address] 07129- 7460 Feb, [place] [address] 49746- 8676 Feb, [facility] [address] [place] [address] 61028 -7306 Feb, Cough R05 and Bronchitis J40 [facility] [address] [place] [address] 00407 -8867 Feb, Acute nasopharyngitis J00 and Bronchitis J40 [place] [address] 46129- 0836 Feb, Other chronic pain G89.29 and Generalized anxiety disorder F41.1 [place] [address] 96487- 0883 Jan, Encounter for immunization Z23 [facility] [address] 68304 -1565 Jan, [facility] [address] [place] [address] 95419 -3455 Jan, [address] 54881- 9977 16 Jan, 2017 Canker sores oral K12.[address] 18611- 4425 14 Jan, [address] 48905- 9715 07 Jan, 2017 Other chronic pain G89.29 and Generalized anxiety disorder F41.[address] 78607- 6316 06 Jan, 2017 Cough R05 and Bronchitis J40 [facility] [address] 19630 -0643 04 Jan, 2017 Bron[address]itis J40 [address] 49826- 2873 Dec, Vitamin D deficiency E55.[address] 47478- 3841 Dec, DM (diabetes mellitus) with complications E11.[address] 99057- 4981 Dec, DM (diabetes mellitus) with complications E11.8 and Vitamin D deficiency E55.[address] 32698- 0501 Dec, DM (diabetes mellitus) with complications E11.8 ; Essential hypertension I10 ; Hyperlipidemia, unspecified hyperlipidemia type E78.5 ; Vitamin D deficiency E55.9 ; Gastroesophageal reflux disease, esophagitis presence not specified K21.9 ; 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 ; Other chronic pain G89.29 ; Encounter for immunization Z23 and Generalized anxiety disorder F41.[address] 14543- 3757 12 Nov, 2016 History of CVA with residual deficit I69.[address] 93617- 7407 Nov, DM (diabetes mellitus) with complications E11.8 [place] [id number] [place] [address] 22001- 3110 06 Nov, 2016 Left otitis media with effusion H65.92 ; Bronchitis J40 and Canker sores oral K12.0 [place] [address] [place] [id number] [place] [address] 09506- 4069 Oct, [place] [address] 59433- 3740 Oct, DM (diabetes mellitus) with complications E11.8 [place] [address] [place] [id number] [place] [address] 20069- 3692 Oct, [place] [address] [place] [id number] [place] [address] 10651- 4847 Sep, DM (diabetes mellitus) with complications E11.8 [place] [address] [place] [id number] [place] [address] 91128- 2514 Sep, DM (diabetes mellitus) with complications E11.8 ; Essential hypertension I10 ; Gastroesophageal reflux disease, esophagitis presence not specified K21.9 ; Hyperlipidemia, unspecified hyperlipidemia type E78.5 ; Tobacco abuse Z72.0 ; Vitamin D deficiency E55.9 ; History of CVA with residual deficit I69.30 and Seasonal allergic rhinitis due to pollen J30.1 [place] [address] [place] [id number] [place] [address] 68261- 3134 Sep, [place] [address] [place] [id number] [place] [address] 28146- 0394 Aug, [facility] [address] [place] [id number] [place] [address] 57997 -0976 Aug, Dysuria R30.0 ; Acute cystitis with hematuria N30.01 and Middle ear effusion, right H65.91 [place] [address] [place] [id number] [place] [address] 30479- 2170 Aug, Other complicated headache syndrome G44.59 [place] [address] [address]- 7807 19 Aug, 2016 DM (diabetes mellitus) with complications E11.8 [facility] [address] [id number] [place] [address] 14527- 5326 14 Aug, 2016 Dysuria R30.0 [facility] [address] [id number] [place] [address] 51733- 9128 Aug, Dysuria R30.0 [facility] [id number] [place] [address] 92058- 7508 Aug, [facility] [address] [id number] [place] [address] 09867- 0088 July, [facility] [address] [place] [id number] [place] [address] 52653- 7052 July, [facility] [address] [place] [id number] [place] [address] 26396- 8498 July, DM (diabetes mellitus) with complications E11.8 [facility] [id number] [place] [address] 34043- 6213 July, Other complicated headache syndrome G44.59 [facility] [address] [place] [id number] [place] [address] 97016- 8359 July, [facility] [address], [place] [address]47 July, Dysuria R30.0 and Acute cystitis with hematuria N30.01 [facility] [address], [place] [address]- 3102 July, [facility] [id number] [place] [address] 26724- 1278 July, Other complicated headache syndrome G44.59 [facility] [address] [address] Jun, Exposure to strep throat Z20.818 and Acute upper respiratory infection, unspecified J06.9 [place] [address] [place] [id number] [place] [address] 19744- 6644 Jun, [place] [address] [place] [id number] [place] [address] 77737- 4126 Jun, DM (diabetes mellitus) with complications E11.8 and Gastroesophageal reflux disease, esophagitis presence not specified K21.9 [place] [address] 87199- 0913 Jun, [place] [address] [place] [id number] [place] [address] 93492- 2019 Jun, Dizziness R42 [facility] [address] 44472 -2500 Jun, [place] [address] 31216- 0172 Jun, [facility] [address] 61900 -8806 May, Seasonal allergic rhinitis, unspecified allergic rhinitis trigger J30.2 [place] [address] [place] [id number] [place] [address] 38252- 9022 May, [place] [address] 90035- 4890 May, DM (diabetes mellitus) with complications E11.8 [...] Seasonal allergic rhinitis due to pollen J30.1 [place] [address] [place] [id number] [place] [address] 76671- 3722 May, Gastroesophageal reflux disease, esophagitis presence not specified K21.9 [place] [address] [place] [id number] [place] [address] 83487- 6832 May, [facility] [address], [place] [address]- 6176 Apr, [facility] [id number] [place] [address] 24969- 6680 Apr, [facility] [address], [place] [address]- 8680 Mar, [facility] [id number] [place] [address] 85701- 9509 Mar, [facility] [address] [place] [id number] [place] [address] 32712- 7399 Mar, [facility] [address] [place] [id number] [place] [address] 14594- 8809 Mar, [facility] [address] [place] [id number] [place] [address] 99648- 7979 Feb, [facility] [address] [id number] [place] [address] 40829- 3582 Feb, [facility] [id number] [place] [address] 81349- 3710 Feb, [facility] [id number] [place] [address] 62814- 0159 Feb, Major depressive disorder, recurrent episode, moderate F33.1 ; Generalized anxiety disorder F41.1 ; Essential hypertension I10 ; DM ( diabetes mellitus) with complications E11.8 ; Hyperlipidemia, unspecified hyperlipidemia type E78.5 ; 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 [address], [place] [address] Feb, Other viral agents as the cause of diseases classified elsewhere B97.89 and Acute upper respiratory infection, unspecified J06.9 [facility] [address], [place] [address]- 1083 Jan, [facility] [id number] [address]- 8561 Jan, [facility] [id number] [place] [address] 63015 -7125 Jan, Acute bronchitis, unspecified organism J20.9 [facility] [address] [place] [id number] [place] [address] 22502- 2109 Jan, [facility] [address] 21402- 9088 Jan, History of CVA with residual deficit I69.30 [facility] [address] [place] [id number] [place] [address] 16417- 7532 Jan, [facility] [address] [place] [id number] [place] [address] 30564- 5981 Jan, Acute bronchitis, unspecified organism J20.9 [facility] [address] [place] [id number] [place] [address] 75729- 9176 Jan, [facility] [address] [place] [id number] [place] [address] 59283- 5664 Dec, History of CVA with residual deficit I69.30 [facility] [address] [place] [id number] [place] [address] 09943- 0023 Dec, [facility] [address] [place] [id number] [place] [address] 47436- 7422 Dec, Other chronic pain G89.29 ; DM (diabetes mellitus) with complications E11.8 and History of CVA with residual deficit I69.30 [facility] [id number] [place] [address] 30928- 8082 30 Nov, 2015 Major depressive disorder, recurrent episode, moderate F33.1 ; Irregular heart rhythm I49.9 ; Essential hypertension I10 ; History of CVA with residual deficit I69.30 ; DM (diabetes mellitus) with complications E11.8 ; Gastroesophageal reflux disease, esophagitis presence not specified K21.9 ; Hyperlipidemia, unspecified hyperlipidemia type E78.5 ; 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 ; Other chronic pain G89.29 and Generalized anxiety disorder F41.[id number] [place] [address] 06984- 9903 Oct, Generalized anxiety disorder F41.1 ; Major depressive disorder, recurrent episode, moderate F33.1 ; Essential hypertension I10 ; History of CVA with residual deficit I69.30 ; DM (diabetes mellitus) with complications E11.8 ; Gastroesophageal reflux disease, esophagitis presence not specified K21.9 ; Hyperlipidemia, unspecified hyperlipidemia type E78.5 ; Other chronic pain G89.29 and Bacterial conjunctivitis of left eye H10.9 [place] [id number] [place] [address] 49974- 8642 Sep, Chronic pain syndrome G89.4 and DM (diabetes mellitus) with complications E11.8 [place] [id number] [place] [address] 89086- 5187 Sep, Irregular heart rhythm I49.9 ; Routine health maintenance Z00.00 ; Essential hypertension I10 ; History of CVA with residual deficit I69.30 ; Gastroesophageal reflux disease, esophagitis presence not specified K21.9 ; DM (diabetes mellitus) with complications E11.8 ; Hyperlipidemia, unspecified hyperlipidemia type E78.5 and Other complicated headache syndrome G44.59 [place] [id number] [place] [address] 36382- 7497 Jun, [place] [id number] [place] [address] 40066- 6171 Jun, [place] [id number] [place] [address] 47336- 7398 Aug, [place] [id number] [place] [address] 18802- 6740 Jun, IMMUNIZATIONS No Known Immunizations SOCIAL HISTORY Never Assessed REASON FOR VISIT med refill PLAN OF CARE VITAL SIGNS MEDICATIONS Medication Instructions Dosage Frequency Start Date End Date Duration Status Xanax 1 MG Orally 4 times a day 1 tablet 6h 28 days Active Hydrocodone-Acetaminophen 10-325 MG Orally every 6 hrs 1 tablet as needed 6h May, 28 days Active RESULTS No Results PROCEDURES No Known procedures INSTRUCTIONS MEDICATIONS ADMINISTERED No Known Medications MEDICAL (GENERAL) HISTORY Type Description Date Medical History diabetes mellitus Medical History hyperlipidemia Medical History hypertension Medical History Anxiety disorder Medical History Blood Clotting Disorder- Dr Galvan at [facility] Medical History Possible Anemia (currently under work up) - Dr Galvan [facility] Medical History irregular heart beat-sees dr. hassan Medical History history of pancreatitis Medical History gerd Medical History History of CVA with residual deficit Medical History Other complicated headache syndrome Medical History Stokes syndrome Surgical History tubal ligation Surgical History section Surgical History cholecystectomy Surgical History Toe Nail Removal x2 Hospitalization History Brain Stem Strokes x5. Has been hospitalized at then transfered to [place]. 2015 Hospitalization History Child Hospitalization History abd pain and shakiness - [facility] ED visit [facility] Hospitalization History [facility] ED for URI 04/16/17 Hospitalization History via [facility] [place] er 08/16/17
--- OUTSIDE RECORDS SUMMARY | 2017-11-04 16:34 | XMS REPORT ---
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 Name Role Phone HUIZARSOTERO Cox Unavailable PROBLEMS Type Condition ICD9-CM Code XUV64-[place] Code Onset Dates Condition Status SNOMED Code Problem Tobacco abuse Z72.0 Active 887933757 Problem Seasonal allergic rhinitis due to pollen J30.1 Active 12336571 Problem Tobacco abuse counseling Z71.6 Active 541628135 Problem Abnormal drug screen R89.2 Active 001749951 Problem Acute non intractable tension-type headache G44.209 Active 023192437 Problem long-term current use of insulin Z79.4 Active 085955926 Problem History of CVA with residual deficit I69.30 Active 043845698 Problem Chronic pain syndrome G89.4 Active 358261702 Problem Type 2 diabetes mellitus with hyperglycemia E11.65 Active 53190787 Problem Elevated liver enzymes R74.8 Active 328541578 Problem Generalized anxiety disorder F41.1 Active 68167902 Problem Vitamin D deficiency E55.9 Active 77813234 Problem Major depressive disorder, recurrent episode, moderate F33.1 Active 392728382 Problem Hyperlipidemia, unspecified hyperlipidemia type E78.5 Active 66414970 Problem Gastroesophageal reflux disease, esophagitis presence not specified K21.9 Active 618592818 Problem 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 Active 452376977 Problem Essential hypertension I10 Active 60707555 Problem DM (diabetes mellitus) with complications E11.8 Active 72934629 Problem Other chronic pain G89.29 Active 89999091 ALLERGIES No Information ENCOUNTERS Encounter Location Date Diagnosis [facility] [id number] [address] Sep, Generalized anxiety disorder F41.1 ; Chronic pain syndrome G89.4 and Abnormal drug screen R89.2 [facility] [id number] [address] Aug, Dysuria R30.0 [facility] [id number] [place] [address] 74419- 5733 Aug, Generalized anxiety disorder F41.1 ; Chronic pain syndrome G89.4 and Dysuria R30.0 [facility] [id number] [place] [address] 05298- 2883 Aug, Acute cystitis with hematuria N30.01 and Candidal dermatitis B37.2 [facility] [id number] [place] [address] 06683- 9943 Aug, Dysuria R30.0 [facility] [address] [address]- [address]85 Aug, [facility] [id number] [place] [address] 26054 -4340 Aug, Dysuria R30.0 [facility] [id number] [place] [address] 66333- 7400 Aug, [facility] [id number] [place] [address] 34347- 4888 July, Cervicalgia M54.2 ; Acute non intractable tension-type headache G44.209 ; Type 2 diabetes mellitus with hyperglycemia E11.65 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 [facility] [id number] [place] [address] 21872- 3751 July, Generalized anxiety disorder F41.1 and Chronic pain syndrome G89.4 [facility] [id number] [place] [address] 09423- 6417 July, Abscess L02.91 [facility] [id number] [place] [address] 65470- 0181 July, [facility] [id number] [place] [address] 04882- 4178 July, [facility] [address] 9[address]87- 4893 July, Type 2 diabetes mellitus with hyperglycemia E11.65 ; 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 ; Elevated [...] pain syndrome G89.4 and Vaginal candidiasis B37.3 [place] [address] 55452- 1089 Jun, Generalized anxiety disorder F41.1 and Other chronic pain G89.29 [address] [address] 59429- 8301 Jun, [place] [address] 12130- 9582 Jun, [place] [address] 54534- 8950 Jun, Abnormal levels of other serum enzymes R74.8 [place] [address] 03437- 1484 Jun, Abnormal levels of other serum enzymes R74.8 [place] [address] 88705- 0096 Jun, Elevated liver enzymes R74.8 [place] [address] 57813- 3443 Jun, Elevated liver enzymes R74.8 [place] [address] 66452- 1661 May, Right upper quadrant pain R10.11 ; Cervicalgia M54.2 and High risk medication use Z79.899 [place] [address] 17642- 4040 May, Generalized anxiety disorder F41.1 and Other chronic pain G89.29 [facility] [address] 30319- 2868 May, Canker sores oral K12.0 [facility] [address] 94669- 1823 May, Generalized anxiety disorder F41.1 and Other chronic pain G89.29 [facility] [address] 53627- 4852 May, [facility] [address] 16831- 4324 Apr, [facility] [address] 45519 -7050 Apr, Acute cystitis with hematuria N30.01 and Dysuria R30.0 [facility] [address] 30506- 6027 Apr, [facility] [address] 33777- 3514 Apr, [facility] [address] 52176- 8096 Apr, DM (diabetes mellitus) with complications E11.8 [facility] [address] 05734- 1635 Apr, DM (diabetes mellitus) with complications E11.8 [facility] [id number] [place] [address] 41859- 5201 Apr, [facility] [address] 12184- 3816 Apr, [facility] [id number] [place] [address] 17146- 3362 Apr, Other chronic pain G89.29 ; Generalized anxiety disorder F41.1 ; Cervicalgia M54.2 and Controlled substance agreement signed Z79.899 [facility] [id number] [place] [address] 92902 -0513 Mar, Abdominal pain R10.9 and Viral gastroenteritis A08.4 [facility] [address] 93035- 0666 Mar, [place] [address] 41544- 5391 Mar, [place] [address] 07648- 9981 Mar, DM (diabetes mellitus) with complications E11.8 ; Type 2 diabetes mellitus with hyperglycemia E11.65 ; 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 ; Essential hypertension I10 ; Bronchitis J40 ; Major depressive disorder , recurrent episode, moderate F33.1 ; Hyperlipidemia, unspecified hyperlipidemia type E78.5 ; Tobacco abuse Z72.0 ; Tobacco abuse counseling Z71.6 ; History of CVA with residual deficit I69.30 ; Gastroesophageal reflux disease, esophagitis presence not specified K21.9 and 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 [place] [id number] [place] [address] 43244- 7762 Mar, [place] [id number] [place] [address] 44920- 1412 Mar, DM (diabetes mellitus) with complications E11.8 ; Abnormal lung sounds R09.89 ; Bronchitis J40 and Hyperlipidemia, unspecified hyperlipidemia type E78.5 [facility] [id number] [place] [address] 01081 -8743 05 Mar, 2017 URI, acute J06.9 [place] [id number] [place] [address] 82787- 3907 Mar, [place] [id number] [place] [address] 07450- 5590 Mar, DM (diabetes mellitus) with complications E11.8 [place] [address] 45943- 6694 Mar, Other chronic pain G89.29 and Generalized anxiety disorder F41.1 [facility] [address] 87797- 5615 Feb, [facility] [address] 75250- 0131 Feb, Mass of left lung R91.8 and Cervicalgia M54.2 [facility] [address] 58696- 1630 Feb, [facility] [address] 35090- 7030 Feb, [facility] [address] 21197 -5489 Feb, Cough R05 and Bronchitis J40 [facility] [address] [address]30 -2581 07 Feb, 2017 Acute nasopharyngitis J00 and Bronchitis J40 [place] [address] 04169- 2180 Feb, Other chronic pain G89.29 and Generalized anxiety disorder F41.1 [facility] [address] 42363- 7145 Jan, Encounter for immunization Z23 [facility] [address] [place] [address] 87791 -6449 Jan, [facility] [address] 61464 -3615 Jan, [place] [address] 12256- 9202 16 Jan, 2017 Canker sores oral K12.0 [place] [address] 25460- 0371 14 Jan, 2017 [facility] [address] 25976- 0235 Jan, Other chronic pain G89.29 and Generalized anxiety disorder F41.1 [facility] [address] 88771- 2837 Jan, Cough R05 and Bronchitis J40 [facility] [address] 48286 -9981 Jan, Bronchitis J40 [facility] [address] 48156- 2159 Dec, Vitamin D deficiency E55.9 [place] [address] 48276- 0368 Dec, DM (diabetes mellitus) with complications E11.8 [place] [address] 88456- 6058 Dec, DM (diabetes mellitus) with complications E11.8 and Vitamin D deficiency E55.[address] 15924- 9643 Dec, DM (diabetes mellitus) with complications E11.8 ; Essential hypertension I10 ; Hyperlipidemia, unspecified hyperlipidemia type E78.5 ; Vitamin D deficiency E55.9 ; Gastroesophageal reflux disease, esophagitis presence not specified K21.9 ; 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 ; Other chronic pain G89.29 ; Encounter for immunization Z23 and Generalized anxiety disorder F41.[address] 60989- 4336 Nov, History of CVA with residual deficit I69.[address] 28290- 3387 Nov, DM (diabetes mellitus) with complications E11.[address] 82844- 3379 Nov, Left otitis media with effusion H65.92 ; Bronchitis J40 and Canker sores oral K12.[address] 32328- 3034 Oct, [facility] [id number] [place] [address] 38476- 7802 Oct, DM (diabetes mellitus) with complications E11.8 [place] [id number] [place] [address] 00878- 3919 Oct, [facility] [id number] [place] [address] 33610- 0807 Sep, DM (diabetes mellitus) with complications E11.8 [place] [id number] [place] [address] 04762- 0205 Sep, DM (diabetes mellitus) with complications E11.8 ; Essential hypertension I10 ; Gastroesophageal reflux disease, esophagitis presence not specified K21.9 ; Hyperlipidemia, unspecified hyperlipidemia type E78.5 ; Tobacco abuse Z72.0 ; Vitamin D deficiency E55.9 ; History of CVA with residual deficit I69.30 and Seasonal allergic rhinitis due to pollen J30.1 [place] [id number] [place] [address] 78066- 6754 Sep, [place] [id number] [place] [address] 33021- 1866 Aug, [facility] [id number] [place] [address] 16878 -9295 Aug, Dysuria R30.0 ; Acute cystitis with hematuria N30.01 and Middle ear effusion, right H65.91 [place] [id number] [place] [address] 23880- 7187 Aug, Other complicated headache syndrome G44.59 [place] [id number] [place] [address] 21748- 8033 Aug, DM (diabetes mellitus) with complications E11.8 [place] [id number] [place] [address] 47092- 3202 14 Aug, 2016 Dysuria R30.0 [place] [id number] [place] [address] 61746- 5008 Aug, Dysuria R30.0 [facility] [address] [place] [address] 52220- 9097 Aug, [facility] [id number] [place] [address] 29737- 6237 July, [facility] [id number] [place] [address] 86317- 5359 July, [facility] [id number] [place] [address] 62165- 8214 July, DM (diabetes mellitus) with complications E11.8 [address] [address] 55887- 2853 July, Other complicated headache syndrome G44.59 [place] [id number] [place] [address] 66126- 1492 July, [facility] [id number] [place] [address] 79991 -7338 July, Dysuria R30.0 and Acute cystitis with hematuria N30.01 [place] [id number] [place] [address] 56268- 1471 July, [place] [id number] [place] [address] 97243- 0428 July, Other complicated headache syndrome G44.59 [facility] [id number] [place] [address] 28763 -0339 Jun, Exposure to strep throat Z20.818 and Acute upper respiratory infection, unspecified J06.9 [place] [id number] [place] [address] 02155- 6127 Jun, [place] [id number] [place] [address] 68582- 1379 Jun, DM (diabetes mellitus) with complications E11.8 and Gastroesophageal reflux disease, esophagitis presence not specified K21.9 [place] [id number] [place] [address] 95026- 6202 Jun, Dizziness R42 [facility] [id number] [place] [address] 41205- 8633 Jun, [facility] [id number] [place] [address] 50642 -9402 Jun, [facility] [id number] [place] [address] 46669- 1989 Jun, [facility] [id number] [place] [address] 87361 -7012 May, Seasonal allergic rhinitis, unspecified allergic rhinitis trigger J30.2 [facility] [address] 81711- 0464 May, [facility] [id number] [place] [address] 16794- 2302 May, DM (diabetes mellitus) with complications E11.8 [...] Seasonal allergic rhinitis due to pollen J30.1 [facility] [id number] [place] [address] 05503- 8700 May, Gastroesophageal reflux disease, esophagitis presence not specified K21.9 [facility] [id number] [place] [address] 03978- 4071 May, [facility] [id number] [place] [address] 03837- 9406 Apr, [facility] [id number] [place] [address] 71990- 4810 Apr, [facility] [id number] [place] [address] 48444- 1495 Mar, [facility] [address] [address]- 6787 Mar, [facility] [id number] [place] [address] 01125- 6450 Mar, [facility] [address] [place] [address] 12546- 9982 Mar, [facility] [id number] [place] [address] 21214- 9335 Feb, [facility] [id number] [place] [address] 97514- 4719 Feb, [facility] [id number] [place] [address] 62924- 0183 Feb, [facility] [id number] [place] [address] 70045- 8631 Feb, Major depressive disorder, recurrent episode, moderate F33.1 ; Generalized anxiety disorder F41.1 ; Essential hypertension I10 ; DM ( diabetes mellitus) with complications E11.8 ; Hyperlipidemia, unspecified hyperlipidemia type E78.5 ; 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 and Gastroesophageal reflux disease, esophagitis presence not specified K21.9 [facility] [address] [place] [address] 03509 -4756 Feb, Other viral agents as the cause of diseases classified elsewhere B97.89 and Acute upper respiratory infection, unspecified J06.9 [facility] [address] [address]- 3884 Jan, [facility] [address] [place] [address] 89005- 7934 Jan, [facility] [address] [place] [address] 09929 -2027 Jan, Acute bronchitis, unspecified organism J20.9 [facility] [address] [place] [address] 66495- 2331 Jan, [place] [address] [address]- 2576 Jan, History of CVA with residual deficit I69.30 [place] [id number] [place] [address] 48276- 4793 Jan, [place] [id number] [place] [address] 79327- 4492 Jan, Acute bronchitis, unspecified organism J20.9 [place] [id number] [place] [address] 74251- 3825 Jan, [place] [id number] [place] [address] 79621- 0678 Dec, History of CVA with residual deficit I69.30 [place] [id number] [place] [address] 80300- 1201 Dec, [place] [id number] [place] [address] 56102- 9039 Dec, Other chronic pain G89.29 ; DM (diabetes mellitus) with complications E11.8 and History of CVA with residual deficit I69.30 [place] [id number] [place] [address] 72895- 4670 Nov, Major depressive disorder, recurrent episode, moderate F33.1 ; Irregular heart rhythm I49.9 ; Essential hypertension I10 ; History of CVA with residual deficit I69.30 ; DM (diabetes mellitus) with complications E11.8 ; Gastroesophageal reflux disease, esophagitis presence not specified K21.9 ; Hyperlipidemia, unspecified hyperlipidemia type E78.5 ; 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 ; Other chronic pain G89.29 and Generalized anxiety disorder F41.1 [place] [address] [place] [address] 31889- 5692 Oct, Generalized anxiety disorder F41.1 ; Major depressive disorder, recurrent episode, moderate F33.1 ; Essential hypertension I10 ; History of CVA with residual deficit I69.30 ; DM (diabetes mellitus) with complications E11.8 ; Gastroesophageal reflux disease, esophagitis presence not specified K21.9 ; Hyperlipidemia, unspecified hyperlipidemia type E78.5 ; Other chronic pain G89.29 and Bacterial conjunctivitis of left eye H10.9 [id number] [place] [address] 75140- 0526 Sep, Chronic pain syndrome G89.4 and DM (diabetes mellitus) with complications E11.8 [address] [place] [id number] [place] [address] 93633- 6055 Sep, Irregular heart rhythm I49.9 ; Routine health maintenance Z00.00 ; Essential hypertension I10 ; History of CVA with residual deficit I69.30 ; Gastroesophageal reflux disease, esophagitis presence not specified K21.9 ; DM (diabetes mellitus) with complications E11.8 ; Hyperlipidemia, unspecified hyperlipidemia type E78.5 and Other complicated headache syndrome G44.59 [address] [id number] [place] [address] 51721- 8439 Jun, [address] [id number] [place] [address] 12199- 0792 Jun, [place] [id number] [place] [address] 40884- 9860 Aug, [address] 11236- 2210 Jun, IMMUNIZATIONS No Known Immunizations SOCIAL HISTORY Never Assessed REASON FOR VISIT PLAN OF CARE VITAL SIGNS MEDICATIONS Medication Instructions Dosage Frequency Start Date End Date Duration Status Triamcinolone Acetonide 0.1 % oral lesion twice a day 1 application at bedtime 12h Nov, 07 days Active RESULTS No Results PROCEDURES No Known procedures INSTRUCTIONS MEDICATIONS ADMINISTERED No Known Medications MEDICAL (GENERAL) HISTORY Type Description Date Medical History diabetes mellitus Medical History hyperlipidemia Medical History hypertension Medical History Anxiety disorder Medical History Blood Clotting Disorder- Dr Galvan at [facility] Medical History Possible Anemia (currently under work up) - Dr Galvan [facility] Medical History irregular heart beat-sees dr. hassan Medical History history of pancreatitis Medical History gerd Medical History History of CVA with residual deficit Medical History Other complicated headache syndrome Medical History Stokes syndrome Surgical History tubal ligation Surgical History section Surgical History cholecystectomy Surgical History Toe Nail Removal x2 Hospitalization History Brain Stem Strokes x5. Has been hospitalized at then transfered to [place]. 2014 Hospitalization History Child Hospitalization History abd pain and shakiness - [facility] visit [facility] Hospitalization History [facility] ED for URI 04/16/17 Hospitalization History via [facility] er 08/16/17
--- OUTSIDE RECORDS SUMMARY | 2017-11-04 16:34 | XMS REPORT ---
Author Author TRACY Skaggs Organization 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 Active 521813195 Problem History of CVA with residual deficit I69.30 Active 071200695 Problem Chronic pain syndrome G89.4 Active 839202945 Problem Type 2 diabetes mellitus with hyperglycemia E11.65 Active 18702869 Problem Elevated liver enzymes R74.8 Active 645719692 Problem Generalized anxiety disorder F41.1 Active 88078831 Problem Vitamin D deficiency E55.9 Active 37005501 Problem Major depressive disorder, recurrent episode, moderate F33.1 Active 022991710 Problem Hyperlipidemia, unspecified hyperlipidemia type E78.5 Active 31447758 Problem Gastroesophageal reflux disease, esophagitis presence not specified K21.9 Active 487920320 Problem 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 Active 959615244 Problem Essential hypertension I10 Active 12469727 Problem DM (diabetes mellitus) with complications E11.8 Active 36930038 Problem Other chronic pain G89.29 Active 26899797 ALLERGIES Substance Reaction Event Type Date Status Penicillin V Potassium Unknown Drug Allergy Mar, Active Erythromycin Base Unknown Drug Allergy Mar, Active Codeine Unknown Drug Allergy Mar, Active ENCOUNTERS Encounter Location Date Diagnosis [facility] [address] [facility] [id number] [place] [address] Sep, Generalized anxiety disorder F41.1 ; Chronic pain syndrome G89.4 ; Abnormal drug screen R89.2 and Other chest pain R07.89 [facility] [address] [address] Aug, Dysuria R30.0 [facility] [address] 66890- 1658 Aug, Generalized anxiety disorder F41.1 ; Chronic pain syndrome G89.4 and Dysuria R30.0 [facility] [address] [address]- [address] Aug, Acute cystitis with hematuria N30.01 and Candidal dermatitis B37.2 [place] [address] 94751- 4334 Aug, Dysuria R30.0 [place] [address] 86883- 3200 Aug, [facility] [address] [place] [id number] [place] [address] 41208 -5174 Aug, Dysuria R30.0 [facility] [address] 12825- 0350 Aug, [facility] [address] [place] [id number] [place] [address] 91484- 8096 July, Cervicalgia M54.2 ; Acute non intractable tension-type headache G44.209 ; Type 2 diabetes mellitus with hyperglycemia E11.65 and senior living current use of insulin Z79.4 [facility] [address] [place] [id number] [place] [address] 32237- 9007 July, Generalized anxiety disorder F41.1 and Chronic pain syndrome G89.4 [facility] [address] [place] [id number] [place] [address] 19046- 7789 July, Abscess L02.91 [place] [address] 82172- 4157 July, [place] [address] [place] [id number] [place] [address] 20175- 2217 July, [place] [address] [place] [id number] [place] [address] 43452- 0705 July, Type 2 diabetes mellitus with hyperglycemia [...] pain syndrome G89.4 and Vaginal candidiasis B37.3 [place] [address] [place] [id number] [place] [address] 62236- 6579 Jun, Generalized anxiety disorder F41.1 and Other chronic pain G89.29 [place] [address] [place] [id number] [place] [address] 60728- 7404 Jun, [place] [address] [place] [id number] [place] [address] 52493- 9920 Jun, [place] [address] [place] [id number] [place] [address] 26261- 7128 Jun, Abnormal levels of other serum enzymes R74.8 [place] [address] [place] [id number] [place] [address] 27111- 8493 Jun, Abnormal levels of other serum enzymes R74.8 [place] [address] [place] [id number] [place] [address] 16750- 5858 Jun, Elevated liver enzymes R74.8 [place] [address] [place] [id number] [place] [address] 68350- 3037 Jun, Elevated liver enzymes R74.8 [place] [address] [place] [id number] [place] [address] 52141- 8036 May, Right upper quadrant pain R10.11 ; Cervicalgia M54.2 and High risk medication use Z79.899 [facility] [address] 45903- 5768 May, Generalized anxiety disorder F41.1 and Other chronic pain G89.29 [facility] [address] 29204- 6317 May, Canker sores oral K12.0 [facility] [address] 15482- 2746 May, Generalized anxiety disorder F41.1 and Other chronic pain G89.29 [facility] [address] 43297- 2535 May, [facility] [address] 57431- 2998 Apr, [facility] [address] 38464 -1334 Apr, Acute cystitis with hematuria N30.01 and Dysuria R30.0 [facility] [address] 54530- 3474 Apr, [facility] [address] 90777- 0039 Apr, [facility] [address] 93502- 9189 Apr, DM (diabetes mellitus) with complications E11.8 [facility] [address] 01199- 4957 Apr, DM (diabetes mellitus) with complications E11.8 [facility] [address] 87419- 0351 Apr, [facility] [address] 69649- 2881 Apr, [place] [address] [place] [id number] [place] [address] 71682- 9580 Apr, Other chronic pain G89.29 ; Generalized anxiety disorder F41.1 ; Cervicalgia M54.2 and Controlled substance agreement signed Z79.899 [facility] [address] 11812 -7357 Mar, Abdominal pain R10.9 and Viral gastroenteritis A08.[address] [address]32- [address]3 Mar, [address] [address]751- 7566 Mar, [address] 34265- 1901 Mar, DM (diabetes mellitus) with complications E11.8 ; Type 2 diabetes mellitus with hyperglycemia E11.65 ; senior living current use of insulin Z79.4 ; Essential hypertension I10 ; Bronchitis J40 ; Major depressive disorder , recurrent episode, moderate F33.1 ; Hyperlipidemia, unspecified hyperlipidemia type E78.5 ; Tobacco abuse Z72.0 ; Tobacco abuse counseling Z71.6 ; History of CVA with residual deficit I69.30 ; Gastroesophageal reflux disease, esophagitis presence not specified K21.9 and 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 11578- 2936 Mar, [address] 06012- 9547 Mar, DM (diabetes mellitus) with complications E11.8 ; Abnormal lung sounds R09.89 ; Bronchitis J40 and Hyperlipidemia, unspecified hyperlipidemia type E78.5 [facility] [address] [place] [address] 12955 -9605 Mar, URI, acute J06.[address] 37037- 5930 Mar, [address] [place] [address] Mar, DM (diabetes mellitus) with complications E11.8 [place] [address] 00297- 1937 Mar, Other chronic pain G89.29 and Generalized anxiety disorder F41.1 [place] [address] 07415- 6725 Feb, [place] [address] 29196- 2276 Feb, Mass of left lung R91.8 and Cervicalgia M54.2 [place] [address] 91441- 5526 Feb, [place] [address] 60145- 0602 Feb, [facility] [place] [address] 27065 -3549 Feb, Cough R05 and Bronchitis J40 [facility] [place] [address] 72783 -8173 07 Feb, 2017 Acute nasopharyngitis J00 and Bronchitis J40 [place] [address] 64141- 7629 06 Feb, 2017 Other chronic pain G89.29 and Generalized anxiety disorder F41.1 [place] [address] 40059- 7817 Jan, Encounter for immunization Z23 [facility] [address] 31050 [address]2914 Jan, [facility] [place] [address] 98209 -0551 Jan, [place] [address] 76248- 3467 16 Jan, 2017 Canker sores oral K12.0 [place] [address] 45851- 8304 14 Jan, 2017 [facility] [address] 70250- 0637 07 Jan, 2017 Other chronic pain G89.29 and Generalized anxiety disorder F41.1 [place] [address] 20063- 9692 06 Jan, 2017 Cough R05 and Bronchitis J40 [facility] [address] 17102 -9807 Jan, Bronchitis J40 [place] [address] 24279- 4747 Dec, Vitamin D deficiency E55.9 [place] [address] 38775- 6295 Dec, DM (diabetes mellitus) with complications E11.8 [place] [address] 31800- 1181 Dec, DM (diabetes mellitus) with complications E11.8 and Vitamin D deficiency E55.[address] 70132- 4531 Dec, DM (diabetes mellitus) with complications E11.8 ; Essential hypertension I10 ; Hyperlipidemia, unspecified hyperlipidemia type E78.5 ; Vitamin D deficiency E55.9 ; Gastroesophageal reflux disease, esophagitis presence not specified K21.9 ; 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 ; Other chronic pain G89.29 ; Encounter for immunization Z23 and Generalized anxiety disorder F41.1 [place] [address] 43023- 1945 12 Nov, 2016 History of CVA with residual deficit I69.[address] 01103- 8057 Nov, DM (diabetes mellitus) with complications E11.[address] 04551- 5232 Nov, Left otitis media with effusion H65.92 ; Bronchitis J40 and Canker sores oral K12.0 [place] [address] 52120- 0268 Oct, [facility] [address] [place] [id number] [place] [address] 09415- 4996 Oct, DM (diabetes mellitus) with complications E11.8 [place] [address] 09096- 5595 Oct, [place] [address] 98838- 6264 Sep, DM (diabetes mellitus) with complications E11.8 [place] [address] [place] [id number] [place] [address] 94142- 8437 Sep, DM (diabetes mellitus) with complications E11.8 ; Essential hypertension I10 ; Gastroesophageal reflux disease, esophagitis presence not specified K21.9 ; Hyperlipidemia, unspecified hyperlipidemia type E78.5 ; Tobacco abuse Z72.0 ; Vitamin D deficiency E55.9 ; History of CVA with residual deficit I69.30 and Seasonal allergic rhinitis due to pollen J30.[address] 96885- 8255 Sep, [place] [id number] [place] [address] 38702- 6498 Aug, [facility] [address] [place] [id number] [place] [address] 52680 -0779 Aug, Dysuria R30.0 ; Acute cystitis with hematuria N30.01 and Middle ear effusion, right H65.[address] 94343- 4396 Aug, Other complicated headache syndrome G44.59 [place] [address] 17971- 3849 Aug, DM (diabetes mellitus) with complications E11.8 [place] [address] [place] [address] 14 Aug, 2016 Dysuria R30.0 [facility] [address] [place] [id number] [place] [address] 83334- 1671 Aug, Dysuria R30.0 [facility] [address] [place] [id number] [place] [address] 07957- 4331 Aug, [facility] [address] [place] [id number] [place] [address] 42998- 7721 July, [facility] [address] [place] [id number] [place] [address] 78881- 7542 July, [facility] [address] [place] [id number] [place] [address] 24081- 5008 July, DM (diabetes mellitus) with complications E11.8 [facility] [address] [place] [id number] [place] [address] 09653- 4040 July, Other complicated headache syndrome G44.59 [facility] [address] [place] [id number] [place] [address] 89066- 5237 July, [facility] [address] [place] [id number] [place] [address] 11506 -6464 July, Dysuria R30.0 and Acute cystitis with hematuria N30.01 [facility] [address] [place] [address] 25627- 1059 July, [facility] [address] [place] [id number] [place] [address] 88805- 3060 July, Other complicated headache syndrome G44.59 [facility] [address] [place] [address] 16520 -5530 Jun, Exposure to strep throat Z20.818 and Acute upper respiratory infection, unspecified J06.9 [facility] [address] [place] [address] 22582- 5152 Jun, [facility] [address] [place] [id number] [place] [address] 19491- 3200 Jun, DM (diabetes mellitus) with complications E11.8 and Gastroesophageal reflux disease, esophagitis presence not specified K21.9 [facility] [address] [place] [address] 82590- 0531 Jun, Dizziness R42 [facility] [address] [place] [id number] [place] [address] 83947- 1638 Jun, [facility] [address] [place] [id number] [place] [address] 21532 -7649 Jun, [facility] [address] [place] [id number] [place] [address] 00778- 7066 Jun, [facility] [address] [place] [id number] [place] [address] 80647 -5230 May, Seasonal allergic rhinitis, unspecified allergic rhinitis trigger J30.2 [place] [address] [place] [id number] [place] [address] 09303- 3833 May, [place] [address] [place] [id number] [place] [address] 69480- 7636 May, DM (diabetes mellitus) with complications E11.8 [...] Seasonal allergic rhinitis due to pollen J30.1 [place] [address] [place] [address] 14483- 7678 May, Gastroesophageal reflux disease, esophagitis presence not specified K21.9 [place] [address] [place] [id number] [place] [address] 37715- 9992 May, [facility] [address] [place] [address] 66357- 0440 Apr, [place] [address] [address]- 8151 Apr, [facility] [address] [address]- 5008 Mar, [facility] [address] [address]- 0457 Mar, [facility] [address] [address]- 0068 Mar, [facility] [address] [place] [address]- 6334 Mar, [facility] [address] [place] [address] 95983- 2007 Feb, [facility] [address] [place] [address] 12015- 2647 Feb, [facility] [address] [place] [address] 01646- 8623 Feb, [facility] [address] [place] [address]- 2007 Feb, Major depressive disorder, recurrent episode, moderate F33.1 ; Generalized anxiety disorder F41.1 ; Essential hypertension I10 ; DM ( diabetes mellitus) with complications E11.8 ; Hyperlipidemia, unspecified hyperlipidemia type E78.5 ; 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 and Gastroesophageal reflux disease, esophagitis presence not specified K21.9 [facility] [address] [place] [address] [address] Feb, Other viral agents as the cause of diseases classified elsewhere B97.89 and Acute upper respiratory infection, unspecified J06.9 [facility] [address] [place] [address]- 1412 Jan, [facility] [address] [place] [address]- 3802 Jan, [facility] [address] [place] [address] Jan, Acute bronchitis, unspecified organism J20.9 [place] [address] [place] [id number] [place] [address] 13063- 0181 Jan, [place] [address] [place] [id number] [place] [address] 9512 Jan, History of CVA with residual deficit I69.30 [place] [address] [place] [id number] [place] [address] 67498- 4447 Jan, [place] [address] [place] [id number] [place] [address] 42122- 4359 Jan, Acute bronchitis, unspecified organism J20.9 [place] [address] 00999- 1312 Jan, [place] [address] [place] [id number] [place] [address] 19728- 4045 Dec, History of CVA with residual deficit I69.30 [place] [address] [place] [id number] [place] [address] 96405- 1625 Dec, [place] [address] [place] [id number] [place] [address] 56811- 0437 Dec, Other chronic pain G89.29 ; DM (diabetes mellitus) with complications E11.8 and History of CVA with residual deficit I69.30 [place] [address] [place] [id number] [place] [address] 41550- 6093 Nov, Major depressive disorder, recurrent episode, moderate F33.1 ; Irregular heart rhythm I49.9 ; Essential hypertension I10 ; History of CVA with residual deficit I69.30 ; DM (diabetes mellitus) with complications E11.8 ; Gastroesophageal reflux disease, esophagitis presence not specified K21.9 ; Hyperlipidemia, unspecified hyperlipidemia type E78.5 ; 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 ; Other chronic pain G89.29 and Generalized anxiety disorder F41.1 [place] [address] [place] [id number] [place] [address] 00465- 6734 Oct, Generalized anxiety disorder F41.1 ; Major depressive disorder, recurrent episode, moderate F33.1 ; Essential hypertension I10 ; History of CVA with residual deficit I69.30 ; DM (diabetes mellitus) with complications E11.8 ; Gastroesophageal reflux disease, esophagitis presence not specified K21.9 ; Hyperlipidemia, unspecified hyperlipidemia type E78.5 ; Other chronic pain G89.29 and Bacterial conjunctivitis of left eye H10.9 [place] [address] [place] [id number] [place] [address] 19430- 0715 Sep, Chronic pain syndrome G89.4 and DM (diabetes mellitus) with complications E11.8 [place] [address] [place] [id number] [place] [address] 67595- 9367 Sep, Irregular heart rhythm I49.9 ; Routine health maintenance Z00.00 ; Essential hypertension I10 ; History of CVA with residual deficit I69.30 ; Gastroesophageal reflux disease, esophagitis presence not specified K21.9 ; DM (diabetes mellitus) with complications E11.8 ; Hyperlipidemia, unspecified hyperlipidemia type E78.5 and Other complicated headache syndrome G44.59 [place] [address] [place] [id number] [place] [address] 07096- 1293 Jun, [place] [address] 55047- 3310 Jun, [place] [address] [place] [id number] [place] [address] 29433- 0639 Aug, [place] [address] [place] [id number] [place] [address] 24722- 5149 Jun, IMMUNIZATIONS No Known Immunizations SOCIAL HISTORY Never Assessed REASON FOR VISIT productive cough/congestion/hot flashes (but going through menopaus)-- worried about pneumonia or bronchitis Christiano RHONDA, has PET scan on Tuesday- states that if cough has not gone away by Tuesday then she cannot have PET scan done PLAN OF CARE Activity Details Follow Up prn Reason: VITAL SIGNS Height 62 in 2017-03-25 Weight 201.4 lbs 2017-03-25 Temperature 97.9 degrees Fahrenheit 2017-03-25 Heart Rate 96 bpm 2017-03-25 Respiratory Rate 18 2017-03-25 BMI 36.83 kg/m2 2017-03-25 Blood pressure systolic 100 mmHg 2017-03-25 Blood pressure diastolic 60 mmHg 2017-03-25 MEDICATIONS Medication Instructions Dosage Frequency Start Date End Date Duration Status Pantoprazole Sodium 20 mg Orally 2 times a day 1 tablets 12h 24 May, 2016 90 days Active ProAir HFA 108 (90 Base) MCG/ACT Inhalation every 4 hrs prn 2 puffs as needed Nov, Not-Taking Canagliflozin 100 mg Orally Once a day 1 tablet 24h 10 Dec, 2016 8 Mar, 2017 30 day(s) Not-Taking Potassium Chloride ER 10 TAKE ONE TABLET BY MOUTH TWICE A DAY WITH FOOD 90 Active ProAir HFA 108 (90 Base) MCG/ACT Inhalation every 6 hrs 2 puffs as needed 6h Jan, 7 days Not-Taking Diltiazem HCl ER 120 MG Orally Once a day 1 capsule on an empty stomach in the morning 24h 90 days Active Hydrochlorothiazide 25 MG Orally Once a day 1 tablet 24h 90 days Active One Touch/One Touch II Starter 1 glucometer subcutaneously 3 times a day to take blood sugars daily Dispense as insurance allows 8h Sep, Active MetFORMIN HCl ER 750 MG Orally twice a day 1 tablet 12h 90 days Active ASA Oral Once a day 1 tab 24h 90 days Active Atorvastatin Calcium 80 MG Orally Once a day 1 tablet 24h 90 days Active Fenofibrate 54 Orally Once a day 1 tablet with a meal 24h 90 Active Bath/Shower Seat 1 please provide one adult shower seat for patient use one time shower/bath seat for bathing Dec, Active PredniSONE 20 mg Orally once daily 2 tablet with food 24h Mar, 05 days Active Walker - as directed Jan, Active Fluticasone Propionate 50 MCG/ACT Nasally Once a day 1 spray in each nostril 24h 20 Feb, 2016 30 day(s) Not-Taking Pen [place] 31 gauge subcutaneously Once a day as directed 24h 90 Active Naproxen 500 mg Orally bid prn 1 tablet Sep, 90 days Active Metoprolol Tartrate 25 MG Orally Twice a day 1 tablet with food 12h 90 days Active [place] Saline Nasal Gel 1 Nasally 2 times a day apply thin layer to nares bilat 12h 11 Feb, 2017 Feb, 12 months Not-Taking Xanax 1 MG Orally 4 times a day 1 tablet 6h 28 days Active Lancets - Active Levemir Flexpen 100 UNIT/ML Subcutaneous 2 times a day 20 units 12h Active Onglyza 5 mg Orally Once a day 1 tablet 24h 20 Dec, 2016 90 days Active Triamcinolone Acetonide 0.1 % oral lesion twice a day 1 application at bedtime 12h 06 Nov, 2016 07 days Not-Taking CompAir Nebulizer - as directed Feb, 30 days Not-Taking Albuterol Sulfate 0.63 MG/3ML Inhalation every 6 hrs 3 ml as needed 6h Feb, 30 days Not-Taking Baclofen 20 mg Orally 2 times a day if needed 1 tablet with food or milk Feb, Mar, 30 day(s) Active Diflucan 150 MG Orally One time 1 tablet Jan, Not-Taking Hydrocodone-Acetaminophen 10-325 MG Orally every 6 hrs 1 tablet as needed 6h 04 Mar, 2017 28 days Active Plavix 75 MG Orally Once a day 1 tablet 24h 90 days Active Test strips 8h Active OneTouch Delica Lancets 33G 33 TEST BLOOD SUGAR THREE TIMES A DAY E11.8 30 Active Pen [place] 31G X 5 MM subcutaneously Once a day as directed 24h Jan, 90 days Active Carafate 1 GM Orally Twice a day 1 tablet on an empty stomach 12h May, 30 days Active RESULTS No Results PROCEDURES Procedure Date Ordered Result Body Site [facility] VISIT ESTABLISHED PATIENT Mar 25, 2017 INSTRUCTIONS MEDICATIONS ADMINISTERED No Known Medications MEDICAL (GENERAL) HISTORY Type Description Date Medical History diabetes mellitus Medical History hyperlipidemia Medical History hypertension Medical History Anxiety disorder Medical History Blood Clotting Disorder- Dr Galvan at [facility] Medical History Possible Anemia (currently under work up) - Dr Galvan [facility] Medical History irregular heart beat-sees dr. hassan Medical History history of pancreatitis Medical History gerd Medical History History of CVA with residual deficit Medical History Other complicated headache syndrome Medical History Stokes syndrome Surgical History tubal ligation Surgical History section Surgical History cholecystectomy Surgical History Toe Nail Removal x2 Hospitalization History Brain Stem Strokes x5. Has been hospitalized at then transfered to [place]. 2014 Hospitalization History Child Hospitalization History abd pain and shakiness - [facility] [facility] Hospitalization History [facility] ED for URI 04/16/17 Hospitalization History via [facility] er 08/16/17
--- OUTSIDE RECORDS SUMMARY | 2017-11-04 16:35 | XMS REPORT ---
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 Active 70752207 Problem Tobacco abuse Z72.0 Active 356946007 Problem Other chronic pain G89.29 Active 28428750 Problem Type 2 diabetes mellitus with hyperglycemia E11.65 Active 56974293 Problem senior living current use of insulin Z79.4 Active 868968770 Problem Seasonal allergic rhinitis due to pollen J30.1 Active 05275519 Problem Tobacco abuse counseling Z71.6 Active 137115308 Problem History of CVA with residual deficit I69.30 Active 419598525 Problem Simple chronic bronchitis J41.0 Active 15143156 Problem Major depressive disorder, recurrent episode, moderate F33.1 Active 559364379 Problem Elevated liver enzymes R74.8 Active 475233081 Problem Vitamin D deficiency E55.9 Active 69119525 Problem Hyperlipidemia, unspecified hyperlipidemia type E78.5 Active 30444506 Problem Gastroesophageal reflux disease, esophagitis presence not specified K21.9 Active 745161637 Problem Generalized anxiety disorder F41.1 Active 31127396 Problem Essential hypertension I10 Active 90065843 Problem 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 Active 067839547 Problem Irregular heart rhythm I49.9 Active 388794074 ALLERGIES No Information ENCOUNTERS Encounter Location Date Diagnosis [facility] [id number] [address] July, [facility] [id number] [address] Jun, Generalized anxiety disorder F41.1 and Other chronic pain G89.29 [facility] [id number] [place] [address] 86432- 4441 Jun, [facility] [id number] [place] [address] 20239- 6376 Jun, [facility] [id number] [place] [address] 69625- 3541 Jun, Abnormal levels of other serum enzymes R74.8 [facility] [id number] [place] [address] 18480- 2088 Jun, Abnormal levels of other serum enzymes R74.8 [facility] [id number] [place] [address] 66529- 4921 Jun, Elevated liver enzymes R74.8 [facility] [id number] [place] [address] 13436- 7083 Jun, Elevated liver enzymes R74.8 [facility] [id number] [place] [address] 15071- 9616 May, Right upper quadrant pain R10.11 ; Cervicalgia M54.2 and High risk medication use Z79.899 [facility] [id number] [place] [address] 14112- 7534 May, Generalized anxiety disorder F41.1 and Other chronic pain G89.29 [facility] [id number] [place] [address] 72687- 6016 May, Canker sores oral K12.0 [facility] [id number] [place] [address] 59062- 5765 May, Generalized anxiety disorder F41.1 and Other chronic pain G89.29 [facility] [id number] [place] [address] 42331- 2628 May, [facility] [id number] [place] [address] 65724- 4433 Apr, [facility] [id number] [place] [address] 15508 -4739 Apr, Acute cystitis with hematuria N30.01 and Dysuria R30.0 [facility] [id number] [place] [address] 02350- 2342 Apr, [place] [id number] [place] [address] 51526- 2063 Apr, [place] [id number] [place] [address] 15460- 5326 Apr, 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 [place] [id number] [place] [address] 47600- 3981 06 Apr, 2017 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 [place] [id number] [place] [address] 59219- 6730 03 Apr, 2017 [place] [id number] [place] [address] 27429- 7590 Apr, [place] [id number] [place] [address] 12936- 2541 Apr, Other chronic pain G89.29 ; Generalized anxiety disorder F41.1 ; Cervicalgia M54.2 and Controlled substance agreement signed Z79.899 [facility] [id number] [place] [address] 29351 -8084 Mar, Abdominal pain R10.9 and Viral gastroenteritis A08.4 [id number] [place] [address] 39995- 5064 Mar, [facility] [id number] [place] [address] 12260- 1658 Mar, [facility] [address] [place] [id number] [place] [address] 84522- 9410 Mar, 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 ; Type 2 diabetes mellitus with hyperglycemia E11.65 ; 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 ; Essential hypertension I10 ; Bronchitis J40 ; Major depressive disorder , recurrent episode, moderate F33.1 ; Hyperlipidemia, unspecified hyperlipidemia type E78.5 ; Tobacco abuse Z72.0 ; Tobacco abuse counseling Z71.6 ; History of CVA with residual deficit I69.30 ; Gastroesophageal reflux disease, esophagitis presence not specified K21.9 and 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 [place] [address] 23006- 6694 Mar, [place] [address] 49893- 8091 Mar, 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 ; Abnormal lung sounds R09.89 ; Bronchitis J40 and Hyperlipidemia, unspecified hyperlipidemia type E78.5 [facility] [address] [address] Mar, URI, acute J06.9 [place] [address] 93282- 8897 Mar, [place] [address] 88403- 0823 Mar, 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 [place] [address] 34506- 1555 Mar, Other chronic pain G89.29 and Generalized anxiety disorder F41.1 [place] [address] 15225- 1078 Feb, [place] [address] 97275- 4649 Feb, Mass of left lung R91.8 and Cervicalgia M54.2 [place] [address] 07180- 9273 Feb, [place] [address] 12024- 2057 Feb, [facility] [place] [address] 16932 -3035 Feb, Cough R05 and Bronchitis J40 [facility] [address] 65[address] 07 Feb, 2017 Acute nasopharyngitis J00 and Bronchitis J40 [facility] [address] 68025- 0409 06 Feb, 2017 Other chronic pain G89.29 and Generalized anxiety disorder F41.1 [place] [address] 87048- 9010 Jan, Encounter for immunization Z23 [facility] [address] 42725 -2817 Jan, [facility] [place] [address] 93929 -7563 Jan, [place] [address] 78918- 7141 Jan, Canker sores oral K12.0 [place] [address] 91879- 4505 14 Jan, 2017 [place] [address] 13798- 6415 Jan, Other chronic pain G89.29 and Generalized anxiety disorder F41.1 [place] [address] 39755- 5858 06 Jan, 2017 Cough R05 and Bronchitis J40 [facility] [address] 66013 -6685 Jan, Bronchitis J40 [place] [address] 81187- 7382 Dec, Vitamin D deficiency E55.9 [place] [address] 82550- 1039 Dec, 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 [place] [address] 33766- 1652 Dec, 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 and Vitamin D deficiency E55.9 [place] [id number] [place] [address] 41914- 7118 10 Dec, 2016 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 ; Essential hypertension I10 ; Hyperlipidemia, unspecified hyperlipidemia type E78.5 ; Vitamin D deficiency E55.9 ; Gastroesophageal reflux disease, esophagitis presence not specified K21.9 ; 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 ; Other chronic pain G89.29 ; Encounter for immunization Z23 and Generalized anxiety disorder F41.1 [place] [address] 17193- 1409 12 Nov, 2016 History of CVA with residual deficit I69.[address] 12571- 1058 11 Nov, 2016 DM (diabetes mellitus) with complications E11.[address] 84208- 5463 06 Nov, 2016 Left otitis media with effusion H65.92 ; Bronchitis J40 and Canker sores oral K12.0 [place] [address] 19110- 4942 14 Oct, [address] 82756- 4696 Oct, 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 [place] [id number] [place] [address] 30519- 4997 02 Oct, 2016 [place] [address] 68321- 8620 Sep, 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 [place] [address] 95112- 9889 Sep, 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 ; Essential hypertension I10 ; Gastroesophageal reflux disease, esophagitis presence not specified K21.9 ; Hyperlipidemia, unspecified hyperlipidemia type E78.5 ; Tobacco abuse Z72.0 ; Vitamin D deficiency E55.9 ; History of CVA with residual deficit I69.30 and Seasonal allergic rhinitis due to pollen J30.1 [facility] [address] [address] Sep, [facility] [id number] [place] [address] 44019- 1922 Aug, [facility] [address] [place] [address] 21984 -7485 Aug, Dysuria R30.0 ; Acute cystitis with hematuria N30.01 and Middle ear effusion, right H65.91 [facility] [id number] [place] [address] 17450- 0652 Aug, Other complicated headache syndrome G44.59 [facility] [id number] [place] [address] 94980- 7464 Aug, 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 [facility] [id number] [place] [address] 77005- 8253 Aug, Dysuria R30.0 [facility] [id number] [place] [address] 25134- 5842 Aug, Dysuria R30.0 [facility] [id number] [place] [address] 84182- 3948 Aug, [facility] [address] [place] [address] 29258- 7978 July, [facility] [id number] [place] [address] 88506- 3618 July, [facility] [id number] [place] [address] 23053- 5243 July, 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 [facility] [id number] [place] [address] 85874- 3051 July, Other complicated headache syndrome G44.59 [facility] [id number] [place] [address] 66826- 3615 July, [facility] [id number] [place] [address] 25567 -8886 July, Dysuria R30.0 and Acute cystitis with hematuria N30.01 [facility] [id number] [place] [address] 10500- 9068 July, [facility] [address] 51862- 6977 July, Other complicated headache syndrome G44.59 [facility] [id number] [place] [address] 87437 -6014 Jun, Exposure to strep throat Z20.818 and Acute upper respiratory infection, unspecified J06.9 [facility] [id number] [place] [address] 33733- 1179 Jun, [facility] [address] 56957- 5414 Jun, 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 and Gastroesophageal reflux disease, esophagitis presence not specified K21.9 [facility] [id number] [place] [address] 81373- 8443 Jun, [facility] [id number] [place] [address] 87968- 1330 Jun, Dizziness R42 [facility] [id number] [place] [address] 20728 -8751 Jun, [facility] [id number] [place] [address] 57040- 8267 Jun, [facility] [address] 80498 -0808 May, Seasonal allergic rhinitis, unspecified allergic rhinitis trigger J30.2 [facility] [id number] [place] [address] 15696- 6461 May, [facility] [address] 28940- 4359 May, 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 [...] Seasonal allergic rhinitis due to pollen J30.1 [facility] [id number] [place] [address] 10580- 5873 May, Gastroesophageal reflux disease, esophagitis presence not specified K21.9 [facility] [id number] [place] [address] 20743- 8615 May, [facility] [id number] [place] [address] 88461- 5872 Apr, [facility] [id number] [place] [address] 48841- 1690 Apr, [facility] [id number] [place] [address] 61151- 5919 Mar, [facility] [id number] [place] [address] 65279- 5397 Mar, [facility] [id number] [place] [address] 74199- 3042 Mar, [facility] [id number] [place] [address] 26051- 8516 Mar, [facility] [id number] [place] [address] 46926- 3205 Feb, [facility] [id number] [place] [address] 232514- 6481 Feb, [facility] [id number] [place] [address] 261317- 6647 Feb, [facility] [id number] [place] [address] 94423- 6648 Feb, Major depressive disorder, recurrent episode, moderate F33.1 ; Generalized anxiety disorder F41.1 ; Essential hypertension I10 ; DM ( diabetes mellitus) with complications E11.8 ; Hyperlipidemia, unspecified hyperlipidemia type E78.5 ; 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 and Gastroesophageal reflux disease, esophagitis presence not specified K21.9 [facility] [id number] [place] [address] 99965 -5309 Feb, Other viral agents as the cause of diseases classified elsewhere B97.89 and Acute upper respiratory infection, unspecified J06.9 [place] [address] 76740- 4037 Jan, [place] [address] 66331- 4580 Jan, [facility] [id number] [place] [address] 40089 -9150 Jan, Acute bronchitis, unspecified organism J20.9 [place] [id number] [place] [address] 92937- 7493 Jan, [place] [id number] [place] [address] 65101- 9311 Jan, History of CVA with residual deficit I69.30 [place] [id number] [place] [address] 04380- 5835 Jan, [place] [id number] [place] [address] 22216- 2131 Jan, Acute bronchitis, unspecified organism J20.9 [place] [id number] [place] [address] 83779- 7361 Jan, [place] [address] 68050- 8678 Dec, History of CVA with residual deficit I69.30 [place] [address] 43674- 6565 Dec, [place] [address] [place] [address] 22061- 5517 Dec, Other chronic pain G89.29 ; 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 and History of CVA with residual deficit I69.30 [place] [address] [place] [address] 78557- 1081 Nov, Major depressive disorder, recurrent episode, moderate F33.1 ; Irregular heart rhythm I49.9 ; Essential hypertension I10 ; History of CVA with residual deficit I69.30 ; 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 ; Gastroesophageal reflux disease, esophagitis presence not specified K21.9 ; Hyperlipidemia, unspecified hyperlipidemia type E78.5 ; 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 ; Other chronic pain G89.29 and Generalized anxiety disorder F41.1 [address] [place] [id number] [place] [address] 45897- 5041 Oct, Generalized anxiety disorder F41.1 ; Major depressive disorder, recurrent episode, moderate F33.1 ; Essential hypertension I10 ; History of CVA with residual deficit I69.30 ; 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 ; Gastroesophageal reflux disease, esophagitis presence not specified K21.9 ; Hyperlipidemia, unspecified hyperlipidemia type E78.5 ; Other chronic pain G89.29 and Bacterial conjunctivitis of left eye H10.9 [place] [address] [place] [address] 49717- 2050 Sep, Chronic pain syndrome G89.4 and 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 [place] [address] [place] [address] 61186- 6803 Sep, Irregular heart rhythm I49.9 ; Routine health maintenance Z00.00 ; Essential hypertension I10 ; History of CVA with residual deficit I69.30 ; Gastroesophageal reflux disease, esophagitis presence not specified K21.9 ; 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 ; Hyperlipidemia, unspecified hyperlipidemia type E78.5 and Other complicated headache syndrome G44.59 [place] [id number] [place] [address] 31839- 4006 14 Jun, 2014 [facility] [address] [facility] [id number] [place] [address]- 1906 Jun, [facility] [address] [facility] [id number] [address]- 2546 Aug, [facility] [address] [facility] [id number] [place] [address]- 2546 Jun, IMMUNIZATIONS No Known Immunizations SOCIAL HISTORY Never Assessed REASON FOR VISIT Rx per Lab PLAN OF CARE VITAL SIGNS MEDICATIONS Medication Instructions Dosage Frequency Start Date End Date Duration Status Ergocalciferol 55353 UNIT Orally once weekly 1 capsule Dec, Jan, 12 Weeks Active RESULTS No Results PROCEDURES No Known [...] Has been hospitalized at then transfered to [facility]. 2014 Hospitalization History Child Hospitalization History abd pain and shakiness - [facility] ED visit [facility] Hospitalization History [facility] ED for URI 04/16/17
--- OUTSIDE RECORDS SUMMARY | 2017-11-04 16:35 | XMS REPORT ---
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 Active 18853109 Problem Tobacco abuse Z72.0 Active 401778937 Problem Other chronic pain G89.29 Active 92048605 Problem Type 2 diabetes mellitus with hyperglycemia E11.65 Active 32665754 Problem USP current use of insulin Z79.4 Active 761798180 Problem Seasonal allergic rhinitis due to pollen J30.1 Active 48000669 Problem Tobacco abuse counseling Z71.6 Active 554825541 Problem History of CVA with residual deficit I69.30 Active 681360266 Problem Simple chronic bronchitis J41.0 Active 41699753 Problem Major depressive disorder, recurrent episode, moderate F33.1 Active 647517761 Problem Elevated liver enzymes R74.8 Active 508883823 Problem Vitamin D deficiency E55.9 Active 94208278 Problem Hyperlipidemia, unspecified hyperlipidemia type E78.5 Active 68509780 Problem Gastroesophageal reflux disease, esophagitis presence not specified K21.9 Active 552754104 Problem Generalized anxiety disorder F41.1 Active 71025697 Problem Essential hypertension I10 Active 12337279 Problem 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 Active 314021931 Problem Irregular heart rhythm I49.9 Active 576215460 ALLERGIES No Information ENCOUNTERS Encounter Location Date Diagnosis [facility] [id number] [address] July, [facility] [id number] [address] Jun, Generalized anxiety disorder F41.1 and Other chronic pain G89.29 [facility] [id number] [place] [address] 53948- 2421 Jun, [facility] [id number] [place] [address] 71762- 5512 Jun, [facility] [id number] [place] [address] 07508- 8924 Jun, Abnormal levels of other serum enzymes R74.8 [facility] [id number] [place] [address] 03185- 7960 Jun, Abnormal levels of other serum enzymes R74.8 [facility] [id number] [place] [address] 26711- 5344 Jun, Elevated liver enzymes R74.8 [facility] [id number] [place] [address] 32102- 2449 Jun, Elevated liver enzymes R74.8 [facility] [id number] [place] [address] 07804- 0092 May, Right upper quadrant pain R10.11 ; Cervicalgia M54.2 and High risk medication use Z79.899 [facility] [id number] [place] [address] 52682- 6082 May, Generalized anxiety disorder F41.1 and Other chronic pain G89.29 [facility] [id number] [place] [address] 37526- 5806 May, Canker sores oral K12.0 [facility] [id number] [place] [address] 81357- 7618 May, Generalized anxiety disorder F41.1 and Other chronic pain G89.29 [facility] [id number] [place] [address] 71513- 0143 May, [facility] [id number] [place] [address] 93958- 9529 Apr, [facility] [id number] [place] [address] 68482 -5146 Apr, Acute cystitis with hematuria N30.01 and Dysuria R30.0 [facility] [id number] [place] [address] 98947- 0817 Apr, [place] [id number] [place] [address] 67246- 4005 Apr, [place] [id number] [place] [address] 18587- 2834 Apr, 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 [place] [id number] [place] [address] 82481- 0112 06 Apr, 2017 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 [place] [id number] [place] [address] 27660- 3548 03 Apr, 2017 [place] [id number] [place] [address] 83029- 6259 Apr, [place] [id number] [place] [address] 51336- 0056 Apr, Other chronic pain G89.29 ; Generalized anxiety disorder F41.1 ; Cervicalgia M54.2 and Controlled substance agreement signed Z79.899 [facility] [id number] [place] [address] 39528 -3578 Mar, Abdominal pain R10.9 and Viral gastroenteritis A08.4 [id number] [place] [address] 98071- 0292 Mar, [facility] [id number] [place] [address] 01643- 1933 Mar, [facility] [address] [place] [id number] [place] [address] 14210- 8885 Mar, 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 ; Type 2 diabetes mellitus with hyperglycemia E11.65 ; 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 ; Essential hypertension I10 ; Bronchitis J40 ; Major depressive disorder , recurrent episode, moderate F33.1 ; Hyperlipidemia, unspecified hyperlipidemia type E78.5 ; Tobacco abuse Z72.0 ; Tobacco abuse counseling Z71.6 ; History of CVA with residual deficit I69.30 ; Gastroesophageal reflux disease, esophagitis presence not specified K21.9 and 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 [place] [address] [address]04- 3721 Mar, [place] [address] [address]- 1984 Mar, 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 ; Abnormal lung sounds R09.89 ; Bronchitis J40 and Hyperlipidemia, unspecified hyperlipidemia type E78.5 [facility] [address] [address] Mar, URI, acute J06.9 [place] [address] 48275- 2177 Mar, [place] [address] 85783- 1364 Mar, 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 [place] [address] 60931- 5795 Mar, Other chronic pain G89.29 and Generalized anxiety disorder F41.1 [place] [address] 32235- 3954 Feb, [place] [address] 10612- 9974 Feb, Mass of left lung R91.8 and Cervicalgia M54.2 [place] [address] 79918- 0944 Feb, [place] [address] 72780- 0714 Feb, [facility] [place] [address] 27957 -[address]83 Feb, Cough R05 and Bronchitis J40 [facility] [address] [address] 07 Feb, 2017 Acute nasopharyngitis J00 and Bronchitis J40 [facility] [address] [address]80- 9052 06 Feb, 2017 Other chronic pain G89.29 and Generalized anxiety disorder F41.1 [place] [address] 15377- 0930 Jan, Encounter for immunization Z23 [facility] [address] 42[address] Jan, [facility] [place] [address] 52652 -5165 Jan, [place] [address] 77911- 3586 Jan, Canker sores oral K12.0 [place] [address] 61178- 5209 14 Jan, 2017 [place] [address] 83347- 5597 Jan, Other chronic pain G89.29 and Generalized anxiety disorder F41.1 [place] [address] 14486- 2451 06 Jan, 2017 Cough R05 and Bronchitis J40 [facility] [address] 401[address]60 Jan, Bronchitis J40 [place] [address] 87708- 4545 Dec, Vitamin D deficiency E55.9 [place] [address] 17141- 7595 Dec, 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 [place] [address] 63545- 4598 Dec, 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 and Vitamin D deficiency E55.9 [place] [id number] [place] [address] 97898- 8354 10 Dec, 2016 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 ; Essential hypertension I10 ; Hyperlipidemia, unspecified hyperlipidemia type E78.5 ; Vitamin D deficiency E55.9 ; Gastroesophageal reflux disease, esophagitis presence not specified K21.9 ; 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 ; Other chronic pain G89.29 ; Encounter for immunization Z23 and Generalized anxiety disorder F41.1 [place] [address] 34[address]- 3223 12 Nov, 2016 History of CVA with residual deficit I69.[address] [address]- 0206 11 Nov, 2016 DM (diabetes mellitus) with complications E11.[address] 03682- 3849 06 Nov, 2016 Left otitis media with effusion H65.92 ; Bronchitis J40 and Canker sores oral K12.0 [place] [address] 72234- 3453 14 Oct, [address] 15263- 1916 Oct, 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 [place] [id number] [place] [address] 28197- 4198 02 Oct, 2016 [place] [address] 72530- 5682 Sep, 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 [place] [address] 02065- 9542 Sep, 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 ; Essential hypertension I10 ; Gastroesophageal reflux disease, esophagitis presence not specified K21.9 ; Hyperlipidemia, unspecified hyperlipidemia type E78.5 ; Tobacco abuse Z72.0 ; Vitamin D deficiency E55.9 ; History of CVA with residual deficit I69.30 and Seasonal allergic rhinitis due to pollen J30.1 [facility] [address] [address] Sep, [facility] [id number] [place] [address] 48379- 1010 Aug, [facility] [id number] [place] [address] 82214 -6653 Aug, Dysuria R30.0 ; Acute cystitis with hematuria N30.01 and Middle ear effusion, right H65.91 [facility] [id number] [place] [address] 71609- 5301 Aug, Other complicated headache syndrome G44.59 [facility] [id number] [place] [address] 59285- 1488 Aug, 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 [facility] [id number] [place] [address] 84957- 2794 Aug, Dysuria R30.0 [facility] [id number] [place] [address] 99451- 4185 Aug, Dysuria R30.0 [facility] [id number] [place] [address] 61929- 3560 Aug, [facility] [address] [place] [address] 84678- 7942 July, [facility] [id number] [place] [address] 70395- 8398 July, [facility] [id number] [place] [address] 08297- 7686 July, 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 [facility] [id number] [place] [address] 42358- 0920 July, Other complicated headache syndrome G44.59 [facility] [id number] [place] [address] 39611- 8633 July, [facility] [id number] [place] [address] 71943 -0928 July, Dysuria R30.0 and Acute cystitis with hematuria N30.01 [facility] [id number] [place] [address] 97723- 5862 July, [facility] [address] 39388- 6028 July, Other complicated headache syndrome G44.59 [facility] [id number] [place] [address] 96433 -8859 Jun, Exposure to strep throat Z20.818 and Acute upper respiratory infection, unspecified J06.9 [facility] [id number] [place] [address] 48990- 9746 Jun, [facility] [address] 70620- 8187 Jun, 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 and Gastroesophageal reflux disease, esophagitis presence not specified K21.9 [facility] [id number] [place] [address] 63082- 7732 Jun, [facility] [id number] [place] [address] 34702- 4586 Jun, Dizziness R42 [facility] [id number] [place] [address] 08812 -6841 Jun, [facility] [id number] [place] [address] 45735- 3010 Jun, [facility] [address] 24204 -7326 May, Seasonal allergic rhinitis, unspecified allergic rhinitis trigger J30.2 [facility] [id number] [place] [address] 35806- 1498 May, [facility] [address] 42787- 5083 May, 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 [...] Seasonal allergic rhinitis due to pollen J30.1 [facility] [id number] [place] [address] 84227- 3005 May, Gastroesophageal reflux disease, esophagitis presence not specified K21.9 [facility] [id number] [place] [address] 52712- 2716 May, [facility] [id number] [place] [address] 82886- 6832 Apr, [facility] [id number] [place] [address] 23071- 5222 Apr, [facility] [id number] [place] [address] 85929- 6943 Mar, [facility] [id number] [place] [address] 64435- 7677 Mar, [facility] [id number] [place] [address] 57856- 8135 Mar, [facility] [id number] [place] [address] 19608- 6794 Mar, [facility] [id number] [place] [address] 73998- 7195 Feb, [facility] [id number] [place] [address] 157974- 9511 Feb, [facility] [id number] [place] [address] 321161- 8853 Feb, [facility] [id number] [place] [address] 34101- 5488 Feb, Major depressive disorder, recurrent episode, moderate F33.1 ; Generalized anxiety disorder F41.1 ; Essential hypertension I10 ; DM ( diabetes mellitus) with complications E11.8 ; Hyperlipidemia, unspecified hyperlipidemia type E78.5 ; 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 and Gastroesophageal reflux disease, esophagitis presence not specified K21.9 [facility] [id number] [place] [address] 29621 -9495 Feb, Other viral agents as the cause of diseases classified elsewhere B97.89 and Acute upper respiratory infection, unspecified J06.9 [place] [address] 66029- 7396 Jan, [place] [address] 16527- 5987 Jan, [facility] [id number] [place] [address] 55274 -9468 Jan, Acute bronchitis, unspecified organism J20.9 [place] [id number] [place] [address] 65144- 3638 Jan, [place] [id number] [place] [address] 05288- 4003 Jan, History of CVA with residual deficit I69.30 [place] [id number] [place] [address] 98342- 3886 Jan, [place] [id number] [place] [address] 50339- 6474 Jan, Acute bronchitis, unspecified organism J20.9 [place] [id number] [place] [address] 13109- 2849 Jan, [place] [address] 17821- 9953 Dec, History of CVA with residual deficit I69.30 [place] [address] 21937- 0159 Dec, [place] [address] [place] [address] 98631- 8546 Dec, Other chronic pain G89.29 ; 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 and History of CVA with residual deficit I69.30 [place] [address] [place] [address] 47529- 0513 Nov, Major depressive disorder, recurrent episode, moderate F33.1 ; Irregular heart rhythm I49.9 ; Essential hypertension I10 ; History of CVA with residual deficit I69.30 ; 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 ; Gastroesophageal reflux disease, esophagitis presence not specified K21.9 ; Hyperlipidemia, unspecified hyperlipidemia type E78.5 ; 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 ; Other chronic pain G89.29 and Generalized anxiety disorder F41.1 [place] [id number] [place] [address] 19407- 2435 Oct, Generalized anxiety disorder F41.1 ; Major depressive disorder, recurrent episode, moderate F33.1 ; Essential hypertension I10 ; History of CVA with residual deficit I69.30 ; 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 ; Gastroesophageal reflux disease, esophagitis presence not specified K21.9 ; Hyperlipidemia, unspecified hyperlipidemia type E78.5 ; Other chronic pain G89.29 and Bacterial conjunctivitis of left eye H10.9 [place] [address] [place] [address] 10003- 1594 Sep, Chronic pain syndrome G89.4 and 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 [place] [address] [place] [address] 13502- 5222 Sep, Irregular heart rhythm I49.9 ; Routine health maintenance Z00.00 ; Essential hypertension I10 ; History of CVA with residual deficit I69.30 ; Gastroesophageal reflux disease, esophagitis presence not specified K21.9 ; 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 ; Hyperlipidemia, unspecified hyperlipidemia type E78.5 and Other complicated headache syndrome G44.59 [place] [id number] [place] [address] 20812- 3066 14 Jun, 2014 [facility] [address] [facility] [id number] [address]- 9396 Jun, [facility] [address] [facility] [id number] [address] 2546 Aug, [facility] [address] [facility] [id number] [place] [address]- 2546 Jun, IMMUNIZATIONS No Known Immunizations SOCIAL HISTORY Never Assessed REASON FOR VISIT FYI only PLAN OF CARE VITAL SIGNS MEDICATIONS Medication Instructions Dosage Frequency Start Date End Date Duration Status Onglyza 5 mg Orally Once a day 1 tablet 24h Dec, 90 days Active RESULTS No Results PROCEDURES No Known procedures INSTRUCTIONS MEDICATIONS ADMINISTERED No Known Medications MEDICAL (GENERAL) HISTORY Type Description Date Medical History diabetes mellitus Medical History hyperlipidemia Medical History hypertension Medical History stroke Medical History Anxiety disorder Medical History Panic attacks Medical History Blood Clotting Disorder- Dr Galvan at [facility] Medical History Possible Anemia (currently under work up) - Dr Galvan [facility] Medical History irregular heart beat-sees dr. hassan Medical History history of pancreatitis Medical History gerd Medical History History of CVA with residual deficit Medical History Other complicated headache syndrome Medical History Stokes syndrome Surgical History tubal ligation Surgical History section Surgical History cholecystectomy Surgical History Toe Nail Removal x2 Hospitalization History Brain Stem Strokes x5. Has been hospitalized at then transfered to [facility]. 2014 Hospitalization History Child Hospitalization History abd pain and shakiness - [facility] ED visit [facility] Hospitalization History [facility] ED for URI 04/16/17
--- OUTSIDE RECORDS SUMMARY | 2017-11-04 16:35 | XMS REPORT ---
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 Active 11884402 Problem Tobacco abuse Z72.0 Active 747115146 Problem Other chronic pain G89.29 Active 23321604 Problem Type 2 diabetes mellitus with hyperglycemia E11.65 Active 41499587 Problem [facility] current use of insulin Z79.4 Active 817197310 Problem Seasonal allergic rhinitis due to pollen J30.1 Active 90791875 Problem Tobacco abuse counseling Z71.6 Active 666960367 Problem History of CVA with residual deficit I69.30 Active 488332711 Problem Simple chronic bronchitis J41.0 Active 87221921 Problem Major depressive disorder, recurrent episode, moderate F33.1 Active 804544356 Problem Elevated liver enzymes R74.8 Active 306027068 Problem Vitamin D deficiency E55.9 Active 07646977 Problem Hyperlipidemia, unspecified hyperlipidemia type E78.5 Active 36136231 Problem Gastroesophageal reflux disease, esophagitis presence not specified K21.9 Active 453837876 Problem Generalized anxiety disorder F41.1 Active 41818827 Problem Essential hypertension I10 Active 77480456 Problem 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 Active 312316340 Problem Irregular heart rhythm I49.9 Active 276017823 ALLERGIES No Information ENCOUNTERS Encounter Location Date Diagnosis [facility] [id number] [address] July, [facility] [id number] [address] Jun, Generalized anxiety disorder F41.1 and Other chronic pain G89.29 [facility] [id number] [place] [address] 62148- 5155 Jun, [facility] [id number] [place] [address] 99227- 8977 Jun, [facility] [id number] [place] [address] 56043- 6786 Jun, Abnormal levels of other serum enzymes R74.8 [facility] [id number] [place] [address] 92751- 0285 Jun, Abnormal levels of other serum enzymes R74.8 [facility] [id number] [place] [address] 84315- 5366 Jun, Elevated liver enzymes R74.8 [facility] [id number] [place] [address] 30203- 7536 Jun, Elevated liver enzymes R74.8 [facility] [id number] [place] [address] 40440- 7691 May, Right upper quadrant pain R10.11 ; Cervicalgia M54.2 and High risk medication use Z79.899 [facility] [id number] [place] [address] 62539- 9414 May, Generalized anxiety disorder F41.1 and Other chronic pain G89.29 [facility] [id number] [place] [address] 84489- 8868 May, Canker sores oral K12.0 [facility] [id number] [place] [address] 38076- 1010 May, Generalized anxiety disorder F41.1 and Other chronic pain G89.29 [facility] [id number] [place] [address] 31032- 8562 May, [facility] [id number] [place] [address] 72287- 7551 Apr, [facility] [id number] [place] [address] 58920 -9604 Apr, Acute cystitis with hematuria N30.01 and Dysuria R30.0 [facility] [id number] [place] [address] 64464- 1359 Apr, [place] [id number] [place] [address] 27982- 2421 Apr, [place] [id number] [place] [address] 48064- 9372 Apr, 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 [place] [place] [id number] [place] [address] 50453- 9736 06 Apr, 2017 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 [place] [id number] [place] [address] 79012- 4907 03 Apr, 2017 [place] [id number] [place] [address] 32832- 8303 Apr, [place] [id number] [place] [address] 92337- 4844 Apr, Other chronic pain G89.29 ; Generalized anxiety disorder F41.1 ; Cervicalgia M54.2 and Controlled substance agreement signed Z79.899 [facility] [id number] [place] [address] 11174 -2006 Mar, Abdominal pain R10.9 and Viral gastroenteritis A08.4 [id number] [place] [address] 21270- 9444 Mar, [facility] [id number] [place] [address] 89458- 1041 Mar, [facility] [address] [place] [id number] [place] [address] 66369- 1123 Mar, 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 ; Type 2 diabetes mellitus with hyperglycemia E11.65 ; 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 ; Essential hypertension I10 ; Bronchitis J40 ; Major depressive disorder , recurrent episode, moderate F33.1 ; Hyperlipidemia, unspecified hyperlipidemia type E78.5 ; Tobacco abuse Z72.0 ; Tobacco abuse counseling Z71.6 ; History of CVA with residual deficit I69.30 ; Gastroesophageal reflux disease, esophagitis presence not specified K21.9 and 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 [place] [address] 34497- 5706 Mar, [place] [address] 77922- 4774 Mar, 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 ; Abnormal lung sounds R09.89 ; Bronchitis J40 and Hyperlipidemia, unspecified hyperlipidemia type E78.5 [facility] [address] [address] Mar, URI, acute J06.9 [place] [address] 06487- 9578 Mar, [place] [address] 67037- 7842 Mar, 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 [place] [address] 06541- 1933 Mar, Other chronic pain G89.29 and Generalized anxiety disorder F41.1 [place] [address] 14090- 8849 Feb, [place] [address] 00775- 3415 Feb, Mass of left lung R91.8 and Cervicalgia M54.2 [place] [address] 29660- 5063 Feb, [place] [address] 59783- 2569 Feb, [facility] [place] [address] 91910 -4511 Feb, Cough R05 and Bronchitis J40 [facility] [address] 76919 -0963 07 Feb, 2017 Acute nasopharyngitis J00 and Bronchitis J40 [facility] [address] 36739- 8727 06 Feb, 2017 Other chronic pain G89.29 and Generalized anxiety disorder F41.1 [place] [address] 82924- 7292 Jan, Encounter for immunization Z23 [facility] [address] 82592 -9774 Jan, [facility] [place] [address] 47947 -9158 Jan, [place] [address] 94622- 3478 Jan, Canker sores oral K12.0 [place] [address] 18147- 5776 14 Jan, 2017 [place] [address] 60189- 7533 Jan, Other chronic pain G89.29 and Generalized anxiety disorder F41.1 [place] [address] 38438- 0113 06 Jan, 2017 Cough R05 and Bronchitis J40 [facility] [address] 20265 -6286 Jan, Bronchitis J40 [place] [address] 04116- 3258 Dec, Vitamin D deficiency E55.9 [place] [address] 84357- 9102 Dec, 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 [place] [address] 02266- 6306 Dec, 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 and Vitamin D deficiency E55.9 [place] [id number] [place] [address] 07430- 3720 10 Dec, 2016 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 ; Essential hypertension I10 ; Hyperlipidemia, unspecified hyperlipidemia type E78.5 ; Vitamin D deficiency E55.9 ; Gastroesophageal reflux disease, esophagitis presence not specified K21.9 ; 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 ; Other chronic pain G89.29 ; Encounter for immunization Z23 and Generalized anxiety disorder F41.1 [place] [address] 57386- 3584 12 Nov, 2016 History of CVA with residual deficit I69.[address] 12125- 2797 11 Nov, 2016 DM (diabetes mellitus) with complications E11.[address] 88286- 2926 06 Nov, 2016 Left otitis media with effusion H65.92 ; Bronchitis J40 and Canker sores oral K12.0 [place] [address] 53436- 7993 14 Oct, [address] 87784- 1852 Oct, 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 [place] [id number] [place] [address] 50941- 6187 02 Oct, 2016 [place] [address] 91089- 5500 Sep, 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 [place] [address] 68042- 2353 Sep, 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 ; Essential hypertension I10 ; Gastroesophageal reflux disease, esophagitis presence not specified K21.9 ; Hyperlipidemia, unspecified hyperlipidemia type E78.5 ; Tobacco abuse Z72.0 ; Vitamin D deficiency E55.9 ; History of CVA with residual deficit I69.30 and Seasonal allergic rhinitis due to pollen J30.1 [facility] [address] [address] Sep, [facility] [id number] [place] [address] 32678- 1763 Aug, [facility] [address] [place] [address] 17360 -5006 Aug, Dysuria R30.0 ; Acute cystitis with hematuria N30.01 and Middle ear effusion, right H65.91 [facility] [id number] [place] [address] 93565- 6533 Aug, Other complicated headache syndrome G44.59 [facility] [id number] [place] [address] 23393- 5413 Aug, 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 [facility] [id number] [place] [address] 03112- 4823 Aug, Dysuria R30.0 [facility] [id number] [place] [address] 28060- 3836 Aug, Dysuria R30.0 [facility] [id number] [place] [address] 36777- 6516 Aug, [facility] [address] [place] [address] 98038- 3542 July, [facility] [id number] [place] [address] 20590- 4028 July, [facility] [id number] [place] [address] 04667- 8787 July, 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 [facility] [id number] [place] [address] 59660- 3325 July, Other complicated headache syndrome G44.59 [facility] [id number] [place] [address] 13332- 2104 July, [facility] [id number] [place] [address] 98756 -9837 July, Dysuria R30.0 and Acute cystitis with hematuria N30.01 [facility] [id number] [place] [address] 95254- 3513 July, [facility] [address] 97740- 7886 July, Other complicated headache syndrome G44.59 [facility] [id number] [place] [address] 52186 -0966 Jun, Exposure to strep throat Z20.818 and Acute upper respiratory infection, unspecified J06.9 [facility] [id number] [place] [address] 54952- 5346 Jun, [facility] [address] 28272- 5495 Jun, 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 and Gastroesophageal reflux disease, esophagitis presence not specified K21.9 [facility] [id number] [place] [address] 60858- 2094 Jun, [facility] [id number] [place] [address] 42061- 0687 Jun, Dizziness R42 [facility] [id number] [place] [address] 02447 -6104 Jun, [facility] [id number] [place] [address] 00357- 6142 Jun, [facility] [address] 91157 -9751 May, Seasonal allergic rhinitis, unspecified allergic rhinitis trigger J30.2 [facility] [id number] [place] [address] 33117- 7254 May, [facility] [address] 34969- 1114 May, 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 [...] Seasonal allergic rhinitis due to pollen J30.1 [facility] [id number] [place] [address] 09211- 3274 May, Gastroesophageal reflux disease, esophagitis presence not specified K21.9 [facility] [id number] [place] [address] 45744- 1732 May, [facility] [id number] [place] [address] 62251- 4711 Apr, [facility] [id number] [place] [address] 20381- 8988 Apr, [facility] [id number] [place] [address] 68246- 9039 Mar, [facility] [id number] [place] [address] 27127- 6013 Mar, [facility] [id number] [place] [address] 50374- 0456 Mar, [facility] [id number] [place] [address] 95308- 8706 Mar, [facility] [id number] [place] [address] 39432- 1377 Feb, [facility] [id number] [place] [address] 523077- 1584 Feb, [facility] [id number] [place] [address] 967339- 0390 Feb, [facility] [id number] [place] [address] 62325- 3090 Feb, Major depressive disorder, recurrent episode, moderate F33.1 ; Generalized anxiety disorder F41.1 ; Essential hypertension I10 ; DM ( diabetes mellitus) with complications E11.8 ; Hyperlipidemia, unspecified hyperlipidemia type E78.5 ; 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 and Gastroesophageal reflux disease, esophagitis presence not specified K21.9 [facility] [id number] [place] [address] 84613 -8275 Feb, Other viral agents as the cause of diseases classified elsewhere B97.89 and Acute upper respiratory infection, unspecified J06.9 [place] [address] 17385- 8493 Jan, [place] [address] 21575- 0323 Jan, [facility] [id number] [place] [address] 30675 -9308 Jan, Acute bronchitis, unspecified organism J20.9 [place] [id number] [place] [address] 45165- 2084 Jan, [place] [id number] [place] [address] 83623- 4851 Jan, History of CVA with residual deficit I69.30 [place] [id number] [place] [address] 15333- 3580 Jan, [place] [id number] [place] [address] 42932- 4602 Jan, Acute bronchitis, unspecified organism J20.9 [place] [id number] [place] [address] 60386- 4282 Jan, [place] [address] 17645- 1011 Dec, History of CVA with residual deficit I69.30 [place] [address] 58595- 8176 Dec, [place] [address] [place] [address] 93395- 3792 Dec, Other chronic pain G89.29 ; 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 and History of CVA with residual deficit I69.30 [place] [address] [place] [address] 29251- 9946 Nov, Major depressive disorder, recurrent episode, moderate F33.1 ; Irregular heart rhythm I49.9 ; Essential hypertension I10 ; History of CVA with residual deficit I69.30 ; 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 ; Gastroesophageal reflux disease, esophagitis presence not specified K21.9 ; Hyperlipidemia, unspecified hyperlipidemia type E78.5 ; 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 ; Other chronic pain G89.29 and Generalized anxiety disorder F41.1 [place] [id number] [place] [address] 23992- 1142 Oct, Generalized anxiety disorder F41.1 ; Major depressive disorder, recurrent episode, moderate F33.1 ; Essential hypertension I10 ; History of CVA with residual deficit I69.30 ; 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 ; Gastroesophageal reflux disease, esophagitis presence not specified K21.9 ; Hyperlipidemia, unspecified hyperlipidemia type E78.5 ; Other chronic pain G89.29 and Bacterial conjunctivitis of left eye H10.9 [place] [address] [place] [address] 97921- 5759 Sep, Chronic pain syndrome G89.4 and 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 [place] [address] [place] [address] 77969- 4272 Sep, Irregular heart rhythm I49.9 ; Routine health maintenance Z00.00 ; Essential hypertension I10 ; History of CVA with residual deficit I69.30 ; Gastroesophageal reflux disease, esophagitis presence not specified K21.9 ; 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 ; Hyperlipidemia, unspecified hyperlipidemia type E78.5 and Other complicated headache syndrome G44.59 [place] [id number] [place] [address] 20021387- 1891 14 Jun, 2014 [facility] [address] [facility] [id number] [place] [address]- 3868 13 Jun, 2014 [facility] [address] [facility] [id number] [address]- 0868 Aug, [facility] [address] [facility] [id number] [place] [address]- 7668 Jun, IMMUNIZATIONS No Known Immunizations SOCIAL HISTORY Never Assessed REASON FOR VISIT Lab (walk-in) PLAN OF CARE VITAL SIGNS MEDICATIONS Unknown Medications RESULTS Name Result Date Reference Range A1C (IN HOUSE) 2017-01-06 A1C IN HOUSE 9.3 4.3 - 5.6 % Previous A1c 9.7 Lot [id number] Exp date 09/2018 VITAMIN D, 25-H 2017-01-06 Vitamin D, 25-Hydroxy 14.5 30.0-100.0 PROCEDURES Procedure Date Ordered Result Body Site LAB NOT BILLED BY [facility] Jan 06, 2017 GLYCATED HEMOGLOBIN TEST Jan 06, 2017 VENIPUNCT, ROUTINE* Jan 06, 2017 INSTRUCTIONS MEDICATIONS ADMINISTERED No Known Medications MEDICAL (GENERAL) HISTORY Type Description Date Medical History diabetes mellitus Medical History hyperlipidemia Medical History hypertension Medical History stroke Medical History Anxiety disorder Medical History Panic attacks Medical History Blood Clotting Disorder- Dr Galvan at [facility] Medical History Possible Anemia (currently under work up) - Dr Galvan [facility] Medical History irregular heart beat-sees [...] Has been hospitalized at then transfered to [place]. 2014 Hospitalization History Child Hospitalization History abd pain and shakiness - [facility] ED visit [facility] Hospitalization History [facility] ED for URI 04/16/17
--- OUTSIDE RECORDS SUMMARY | 2017-11-04 16:36 | XMS REPORT ---
Author Author HUIZARMICHAEL CoxELE Organization [facility] Address [address] [place] [address] Care Team Providers Care Survival Specialist Name Role Phone HUIZARSOTERO Cox Unavailable PROBLEMS Type Condition ICD9-CM Code HKT70-HU Code Onset Dates Condition Status SNOMED Code Problem Other chronic pain G89.29 Active 41169921 Problem Tobacco abuse counseling Z71.6 Active 539165243 Problem Tobacco abuse Z72.0 Active 580983791 Problem Acute non intractable tension-type headache G44.209 Active 734034470 Problem Chronic pain syndrome G89.4 Active 469074422 Problem History of CVA with residual deficit I69.30 Active 177074968 Problem Seasonal allergic rhinitis due to pollen J30.1 Active 82965581 Problem Type 2 diabetes mellitus with hyperglycemia E11.65 Active 81956380 Problem senior care current use of insulin Z79.4 Active 017253318 Problem Major depressive disorder, recurrent episode, moderate F33.1 Active 053031270 Problem Elevated liver enzymes R74.8 Active 709226821 Problem Vitamin D deficiency E55.9 Active 44863113 Problem Gastroesophageal reflux disease, esophagitis presence not specified K21.9 Active 889242268 Problem Essential hypertension I10 Active 86393636 Problem Generalized anxiety disorder F41.1 Active 44978964 Problem Hyperlipidemia, unspecified hyperlipidemia type E78.5 Active 52799123 Problem 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 Active 546050327 Problem 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 Active 12024322 ALLERGIES No Information ENCOUNTERS Encounter Location Date Diagnosis [facility] [id number] [place] [address] 85118- 6994 Sep, Generalized anxiety disorder F41.1 and Chronic pain syndrome G89.4 [facility] [address] [address] Aug, Dysuria R30.0 [facility] [id number] [place] [address] 67228- 5077 18 Aug, 2017 Generalized anxiety disorder F41.1 ; Chronic pain syndrome G89.4 and Dysuria R30.0 [facility] [id number] [place] [address] 87217- 0901 Aug, Acute cystitis with hematuria N30.01 and Candidal dermatitis B37.2 [facility] [address] 93420- 9217 Aug, Dysuria R30.0 [facility] [address] 71052- 9285 Aug, [facility] [id number] [place] [address] 69062 -2150 Aug, Dysuria R30.0 [facility] [id number] [place] [address] 88628- 7450 Aug, [facility] [id number] [place] [address] 34684- 7587 July, Cervicalgia M54.2 ; Acute non intractable tension-type headache G44.209 ; Type 2 diabetes mellitus with hyperglycemia E11.65 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 [facility] [id number] [place] [address] 41021- 0592 July, Generalized anxiety disorder F41.1 and Chronic pain syndrome G89.4 [facility] [id number] [place] [address] 23471- 1145 July, Abscess L02.91 [facility] [id number] [place] [address] 69770- 8850 July, [facility] [id number] [place] [address] 21593- 2123 July, [facility] [id number] [place] [address] 23828- 5593 July, Type 2 diabetes mellitus with hyperglycemia E11.65 ; senior care current use of insulin Z79.4 ; Elevated [...] pain syndrome G89.4 and Vaginal candidiasis B37.3 [facility] [address] 20633- 6928 Jun, Generalized anxiety disorder F41.1 and Other chronic pain G89.29 [facility] [address] 11934- 4789 Jun, [facility] [address] 16428- 0821 Jun, [facility] [address] 09678- 4916 Jun, Abnormal levels of other serum enzymes R74.8 [facility] [address] 28989- 0382 Jun, Abnormal levels of other serum enzymes R74.8 [facility] [address] 44063- 1197 Jun, Elevated liver enzymes R74.8 [facility] [address] 90508- 5089 Jun, Elevated liver enzymes R74.8 [facility] [address] 99093- 8385 May, Right upper quadrant pain R10.11 ; Cervicalgia M54.2 and High risk medication use Z79.899 [facility] [address] 66990- 1444 May, Generalized anxiety disorder F41.1 and Other chronic pain G89.29 [facility] [id number] [place] [address] 23062- 9863 May, Canker sores oral K12.0 [facility] [id number] [place] [address] 86624- 2874 May, Generalized anxiety disorder F41.1 and Other chronic pain G89.29 [facility] [id number] [place] [address] 69713- 1362 May, [facility] [id number] [place] [address] 20660- 6752 Apr, [facility] [id number] [place] [address] 49747 -0694 Apr, Acute cystitis with hematuria N30.01 and Dysuria R30.0 [facility] [id number] [place] [address] 85447- 5837 Apr, [facility] [id number] [place] [address] 75321- 5136 Apr, [facility] [id number] [place] [address] 79030- 3503 Apr, DM (diabetes mellitus) with complications E11.8 [facility] [id number] [place] [address] 79215- 5320 06 Apr, 2017 DM (diabetes mellitus) with complications E11.8 [facility] [id number] [place] [address] 99130- 4861 Apr, [facility] [id number] [place] [address] 90897- 6155 Apr, [facility] [id number] [place] [address] 39721- 1241 Apr, Other chronic pain G89.29 ; Generalized anxiety disorder F41.1 ; Cervicalgia M54.2 and Controlled substance agreement signed Z79.899 [facility] [id number] [place] [address] 94020 -7459 Mar, Abdominal pain R10.9 and Viral gastroenteritis A08.4 [facility] [place] [address] 69453- 3373 Mar, [facility] [address] 34852- 2611 Mar, [facility] [address] 51865- 0444 Mar, DM (diabetes mellitus) with complications E11.8 ; Type 2 diabetes mellitus with hyperglycemia E11.65 ; senior care current use of insulin Z79.4 ; Essential hypertension I10 ; Bronchitis J40 ; Major depressive disorder , recurrent episode, moderate F33.1 ; Hyperlipidemia, unspecified hyperlipidemia type E78.5 ; Tobacco abuse Z72.0 ; Tobacco abuse counseling Z71.6 ; History of CVA with residual deficit I69.30 ; Gastroesophageal reflux disease, esophagitis presence not specified K21.9 and 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 [facility] [id number] [place] [address] 56076- 8272 Mar, [address] 50867- 1737 Mar, DM (diabetes mellitus) with complications E11.8 ; Abnormal lung sounds R09.89 ; Bronchitis J40 and Hyperlipidemia, unspecified hyperlipidemia type E78.5 [facility] [id number] [place] [address] 97317 -8185 Mar, URI, acute J06.9 [facility] [id number] [place] [address] 71031- 5646 Mar, [address] 93573- 9994 Mar, DM (diabetes mellitus) with complications E11.8 [facility] [address] 36388- 2529 Mar, Other chronic pain G89.29 and Generalized anxiety disorder F41.1 [facility] [id number] [place] [address] 00427- 5843 Feb, [facility] [address] 66815- 4339 Feb, Mass of left lung R91.8 and Cervicalgia M54.2 [facility] [address] 06196- 8057 Feb, [facility] [address] 09639- 7062 Feb, [facility] [address] 48237 -6455 Feb, Cough R05 and Bronchitis J40 [facility] [address] 91387 -1603 07 Feb, 2017 Acute nasopharyngitis J00 and Bronchitis J40 [facility] [address] 28788- 3807 06 Feb, 2017 Other chronic pain G89.29 and Generalized anxiety disorder F41.1 [facility] [address] 19084- 9752 Jan, Encounter for immunization Z23 [facility] [address] 85230 -0465 Jan, [facility] [address] 34805 -3276 18 Jan, 2017 [facility] [address] 99053- 9235 16 Jan, 2017 Canker sores oral K12.0 [facility] [address] 96086- 6155 14 Jan, 2017 [facility] [address] 97247- 7498 07 Jan, 2017 Other chronic pain G89.29 and Generalized anxiety disorder F41.1 [facility] [id number] [place] [address] 36841- 0924 Jan, Cough R05 and Bronchitis J40 [facility] [address] 54364 -9155 Jan, Bronchitis J40 [facility] [address] 62304- 5819 Dec, Vitamin D deficiency E55.9 [facility] [address] 02304- 4484 Dec, DM (diabetes mellitus) with complications E11.8 [facility] [address] 51542- 8930 Dec, DM (diabetes mellitus) with complications E11.8 and Vitamin D deficiency E55.9 [facility] [address] 49090- 7314 Dec, DM (diabetes mellitus) with complications E11.8 ; Essential hypertension I10 ; Hyperlipidemia, unspecified hyperlipidemia type E78.5 ; Vitamin D deficiency E55.9 ; Gastroesophageal reflux disease, esophagitis presence not specified K21.9 ; 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 ; Other chronic pain G89.29 ; Encounter for immunization Z23 and Generalized anxiety disorder F41.1 [facility] [address] 55524- 1363 Nov, History of CVA with residual deficit I69.30 [facility] [address] 51136- 6364 Nov, DM (diabetes mellitus) with complications E11.8 [facility] [address] 78716- 8025 06 Nov, 2016 Left otitis media with effusion H65.92 ; Bronchitis J40 and Canker sores oral K12.0 [facility] [address] 31660- 8486 Oct, [facility] [address] [place] [address]- 8452 04 Oct, 2016 DM (diabetes mellitus) with complications E11.8 [facility] [address] 86022- 7225 02 Oct, 2016 [facility] [id number] [place] [address] 84693- 1351 Sep, DM (diabetes mellitus) with complications E11.8 [facility] [address] 56815- 1872 11 Sep, 2016 DM (diabetes mellitus) with complications E11.8 ; Essential hypertension I10 ; Gastroesophageal reflux disease, esophagitis presence not specified K21.9 ; Hyperlipidemia, unspecified hyperlipidemia type E78.5 ; Tobacco abuse Z72.0 ; Vitamin D deficiency E55.9 ; History of CVA with residual deficit I69.30 and Seasonal allergic rhinitis due to pollen J30.1 [place] [address] 67615- 1250 Sep, [facility] [address] 86751- 4547 30 Aug, 2016 [facility] [address] 46678 -9955 Aug, Dysuria R30.0 ; Acute cystitis with hematuria N30.01 and Middle ear effusion, right H65.91 [place] [id number] [place] [address] 02983- 3537 Aug, Other complicated headache syndrome G44.59 [facility] [id number] [place] [address] 94894- 9932 19 Aug, 2016 DM (diabetes mellitus) with complications E11.8 [facility] [address] 56602- 7479 14 Aug, 2016 Dysuria R30.0 [facility] [id number] [place] [address] 05223- 6190 12 Aug, 2016 Dysuria R30.0 [facility] [address], [place] [address]- 4963 Aug, [facility] [address] [place] [address] 14841- 9724 July, [facility] [id number] [place] [address] 18628- 0832 July, [facility] [id number] [place] [address] 41776- 9360 July, DM (diabetes mellitus) with complications E11.8 [facility] [id number] [place] [address] 34888- 8575 July, Other complicated headache syndrome G44.59 [facility] [id number] [place] [address] 77169- 2839 July, [facility] [id number] [place] [address] 90121 -5553 July, Dysuria R30.0 and Acute cystitis with hematuria N30.01 [facility] [address] [place] [address] 74302- 9073 July, [facility] [id number] [place] [address] 76832- 1287 July, Other complicated headache syndrome G44.59 [facility] [address] [address] Jun, Exposure to strep throat Z20.818 and Acute upper respiratory infection, unspecified J06.9 [facility] [address] [place] [address] 93747- 6333 Jun, [facility] [id number] [place] [address] 47597- 0083 Jun, DM (diabetes mellitus) with complications E11.8 and Gastroesophageal reflux disease, esophagitis presence not specified K21.9 [facility] [address] [place] [address] 87916- 1259 Jun, [facility] [id number] [place] [address] 87514- 3887 Jun, Dizziness R42 [facility] [id number] [place] [address] 64045 -6984 Jun, [facility] [id number] [place] [address] 86216- 3693 Jun, [facility] [address] 28095 -6523 May, Seasonal allergic rhinitis, unspecified allergic rhinitis trigger J30.2 [facility] [address] 62831- 5729 May, [facility] [address] 57393- 2549 May, DM (diabetes mellitus) with complications E11.8 [...] Seasonal allergic rhinitis due to pollen J30.1 [facility] [id number] [place] [address] 15876- 2956 May, Gastroesophageal reflux disease, esophagitis presence not specified K21.9 [facility] [id number] [place] [address] 00906- 5602 May, [facility] [id number] [place] [address] 59453- 2262 Apr, [facility] [id number] [place] [address] 37601- 5552 Apr, [facility] [id number] [place] [address] 37546- 6708 Mar, [facility] [id number] [place] [address] 71994- 2907 Mar, [facility] [id number] [place] [address] 00421- 6266 Mar, [facility] [id number] [place] [address] 85454- 0788 Mar, [facility] [id number] [place] [address] 70797- 4667 Feb, [facility] [address] 80713- 0703 Feb, [facility] [id number] [place] [address] 27026- 9587 Feb, [facility] [id number] [place] [address] 03621- 6311 Feb, Major depressive disorder, recurrent episode, moderate F33.1 ; Generalized anxiety disorder F41.1 ; Essential hypertension I10 ; DM ( diabetes mellitus) with complications E11.8 ; Hyperlipidemia, unspecified hyperlipidemia type E78.5 ; 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 and Gastroesophageal reflux disease, esophagitis presence not specified K21.9 [facility] [id number] [place] [address] 52425 -2471 Feb, Other viral agents as the cause of diseases classified elsewhere B97.89 and Acute upper respiratory infection, unspecified J06.9 [facility] [id number] [place] [address] 62111- 8939 Jan, [facility] [id number] [place] [address] 16408- 2772 Jan, [facility] [id number] [place] [address] 35851 -2375 Jan, Acute bronchitis, unspecified organism J20.9 [facility] [id number] [place] [address] 73630- 2929 Jan, [facility] [id number] [place] [address] 35797- 8779 Jan, History of CVA with residual deficit I69.30 [place] [address] [place] [address] 23942- 4449 Jan, [place] [id number] [place] [address] 95758- 9661 Jan, Acute bronchitis, unspecified organism J20.9 [place] [id number] [place] [address] 66852- 9654 Jan, [place] [id number] [place] [address] 46752- 4692 Dec, History of CVA with residual deficit I69.30 [place] [id number] [place] [address] 54398- 1589 Dec, [place] [id number] [place] [address] 28201- 3089 Dec, Other chronic pain G89.29 ; 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 and History of CVA with residual deficit I69.30 [place] [address] [place] [address] 34373- 3333 Nov, Major depressive disorder, recurrent episode, moderate F33.1 ; Irregular heart rhythm I49.9 ; Essential hypertension I10 ; History of CVA with residual deficit I69.30 ; 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 ; Gastroesophageal reflux disease, esophagitis presence not specified K21.9 ; Hyperlipidemia, unspecified hyperlipidemia type E78.5 ; 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 ; Other chronic pain G89.29 and Generalized anxiety disorder F41.1 [place] [address] [place] [address] 64672- 6485 Oct, Generalized anxiety disorder F41.1 ; Major depressive disorder, recurrent episode, moderate F33.1 ; Essential hypertension I10 ; History of CVA with residual deficit I69.30 ; DM (diabetes mellitus) with complications E11.8 ; Gastroesophageal reflux disease, esophagitis presence not specified K21.9 ; Hyperlipidemia, unspecified hyperlipidemia type E78.5 ; Other chronic pain G89.29 and Bacterial conjunctivitis of left eye H10.9 [place] [id number] [place] [address] 95543- 3910 Sep, Chronic pain syndrome G89.4 and DM (diabetes mellitus) with complications E11.8 [place] [id number] [place] [address] 58767- 9882 Sep, Irregular heart rhythm I49.9 ; Routine health maintenance Z00.00 ; Essential hypertension I10 ; History of CVA with residual deficit I69.30 ; Gastroesophageal reflux disease, esophagitis presence not specified K21.9 ; DM (diabetes mellitus) with complications E11.8 ; Hyperlipidemia, unspecified hyperlipidemia type E78.5 and Other complicated headache syndrome G44.59 [place] [id number] [place] [address] 41155- 7040 Jun, [place] [id number] [place] [address] 36235- 1074 Jun, [place] [id number] [place] [address] 03677- 4625 Aug, [place] [id number] [place] [address] 45611- 3011 Jun, IMMUNIZATIONS No Known Immunizations SOCIAL HISTORY Never Assessed REASON FOR VISIT Controlled Med Refill PLAN OF CARE VITAL SIGNS [...] Clotting Disorder- Dr Galvan at [facility] Medical History Possible Anemia (currently under work up) - Dr Galvan [facility] Medical History irregular heart beat-sees dr. hassan Medical History history of pancreatitis Medical History gerd Medical History History of CVA with residual deficit Medical History Other complicated headache syndrome Medical History Stokes syndrome Surgical History tubal ligation Surgical History section Surgical History cholecystectomy Surgical History Toe Nail Removal x2 Hospitalization History Brain Stem Strokes x5. Has been hospitalized at then transfered to [facility]. 2015 Hospitalization History Child Hospitalization History abd pain and shakiness - [facility] ED visit [facility] Hospitalization History [facility] ED for URI 04/16/17 Hospitalization History via [facility] emergency department er 08/16/17
--- OUTSIDE RECORDS SUMMARY | 2017-11-04 16:36 | XMS REPORT ---
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 Role Phone HUIZARSOTERO Cox Unavailable PROBLEMS Type Condition ICD9-CM Code QXM99-JC Code Onset Dates Condition Status SNOMED Code Problem Other chronic pain G89.29 Active 85484413 Problem Tobacco abuse counseling Z71.6 Active 575031173 Problem Tobacco abuse Z72.0 Active 101452396 Problem Acute non intractable tension-type headache G44.209 Active 733615089 Problem Chronic pain syndrome G89.4 Active 865497710 Problem History of CVA with residual deficit I69.30 Active 582171444 Problem Seasonal allergic rhinitis due to pollen J30.1 Active 37485138 Problem Type 2 diabetes mellitus with hyperglycemia E11.65 Active 74441634 Problem senior care current use of insulin Z79.4 Active 722951194 Problem Major depressive disorder, recurrent episode, moderate F33.1 Active 348159787 Problem Elevated liver enzymes R74.8 Active 269338553 Problem Vitamin D deficiency E55.9 Active 45007341 Problem Gastroesophageal reflux disease, esophagitis presence not specified K21.9 Active 035501473 Problem Essential hypertension I10 Active 90059392 Problem Generalized anxiety disorder F41.1 Active 08365660 Problem Hyperlipidemia, unspecified hyperlipidemia type E78.5 Active 03644515 Problem 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 Active 522238770 Problem DM (diabetes mellitus) with complications E11.8 Active 39852297 ALLERGIES No Information ENCOUNTERS Encounter Location Date Diagnosis [facility] [id number] [place] [address] 46164- 7534 18 Aug, 2017 Generalized anxiety disorder F41.1 [facility] [address], [place] [address] 11 Aug, 2017 Acute cystitis with hematuria N30.01 and Candidal dermatitis B37.2 [facility] [address], [place] [address] 8877 Aug, Dysuria R30.0 [facility] [id number] [place] [address] 01581- 9958 Aug, [facility] [id number] [place] [address] 67712 -9814 Aug, Dysuria R30.0 [place] [id number] [place] [address] 78037- 9214 Aug, [facility] [id number] [place] [address] 85813- 6576 July, Cervicalgia M54.2 ; Acute non intractable tension-type headache G44.209 ; Type 2 diabetes mellitus with hyperglycemia E11.65 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 [facility] [id number] [place] [address] 77041- 1536 July, Generalized anxiety disorder F41.1 and Chronic pain syndrome G89.4 [facility] [id number] [place] [address] 71509- 6448 July, Abscess L02.91 [facility] [id number] [place] [address] 82941- 2995 July, [facility] [address] [place] [address] 14858- 7841 July, [facility] [id number] [place] [address] 55425- 9054 July, Type 2 diabetes mellitus with hyperglycemia E11.65 ; 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 ; Elevated [...] pain syndrome G89.4 and Vaginal candidiasis B37.3 [facility] [id number] [place] [address] 12298- 2284 Jun, Generalized anxiety disorder F41.1 and Other chronic pain G89.29 [facility] [id number] [place] [address] 42324- 6457 Jun, [facility] [place] [id number] [place] [address] 209082- 3367 Jun, [facility] [id number] [place] [address] 62676- 2577 Jun, Abnormal levels of other serum enzymes R74.8 [facility] [id number] [place] [address] 66554- 8758 Jun, Abnormal levels of other serum enzymes R74.8 [facility] [id number] [place] [address] 18102- 8749 Jun, Elevated liver enzymes R74.8 [facility] [id number] [place] [address] 74827- 2956 Jun, Elevated liver enzymes R74.8 [facility] [id number] [place] [address] 74229- 5814 May, Right upper quadrant pain R10.11 ; Cervicalgia M54.2 and High risk medication use Z79.899 [facility] [id number] [place] [address] 69570- 2313 May, Generalized anxiety disorder F41.1 and Other chronic pain G89.29 [facility] [id number] [place] [address] 68366- 5681 May, Canker sores oral K12.0 [facility] [address] [place] [address] 97895- 3306 May, Generalized anxiety disorder F41.1 and Other chronic pain G89.29 [facility] [address] [address] 1047 May, [facility] [id number] [place] [address] 92944- 7547 Apr, [facility] [id number] [place] [address] 65329 -5499 Apr, Acute cystitis with hematuria N30.01 and Dysuria R30.0 [facility] [id number] [place] [address] 53334- 1231 Apr, [facility] [id number] [place] [address] 90175- 0679 Apr, [facility] [id number] [place] [address] 44298- 4791 Apr, DM (diabetes mellitus) with complications E11.8 [facility] [id number] [place] [address] 16241- 5619 Apr, DM (diabetes mellitus) with complications E11.8 [facility] [id number] [place] [address] 29976- 4592 Apr, [facility] [id number] [place] [address] 57035- 7298 Apr, [facility] [id number] [place] [address] 57832- 8949 Apr, Other chronic pain G89.29 ; Generalized anxiety disorder F41.1 ; Cervicalgia M54.2 and Controlled substance agreement signed Z79.899 [facility] [address] [place] [address] 41363 -6316 Mar, Abdominal pain R10.9 and Viral gastroenteritis A08.4 [facility] [id number] [place] [address] 29023- 2204 Mar, [facility] [id number] [place] [address] 99936- 4824 Mar, [facility] [place] [id number] [place] [address] 59821- 1467 Mar, DM (diabetes mellitus) with complications E11.8 [...] not specified K21.9 and 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 [facility] [address] 50438- 9961 Mar, [facility] [address] 47806- 2558 Mar, DM (diabetes mellitus) with complications E11.8 ; Abnormal lung sounds R09.89 ; Bronchitis J40 and Hyperlipidemia, unspecified hyperlipidemia type E78.5 [facility] [address] 04750 -6855 Mar, URI, acute J06.9 [facility] [address] 68294- 8794 Mar, [facility] [address] 31073- 0046 Mar, DM (diabetes mellitus) with complications E11.8 [facility] [address] 60208- 9227 Mar, Other chronic pain G89.29 and Generalized anxiety disorder F41.1 [facility] [address] 13792- 6906 Feb, [address] 23779- 1511 Feb, Mass of left lung R91.8 and Cervicalgia M54.2 [facility] [address] 92216- 4580 Feb, [facility] [id number] [place] [address] 78715- 6554 Feb, [facility] [address] 98128 -4070 Feb, Cough R05 and Bronchitis J40 [facility] [address] 94420 -7606 07 Feb, 2017 Acute nasopharyngitis J00 and Bronchitis J40 [facility] [address] 86068- 5729 Feb, Other chronic pain G89.29 and Generalized anxiety disorder F41.1 [facility] [address] 07201- 5394 Jan, Encounter for immunization Z23 [facility] [address] 34831 -2514 Jan, [facility] [address] 37929 -3297 18 Jan, 2017 [facility] [address] 64371- 5791 16 Jan, 2017 Canker sores oral K12.0 [facility] [address] 50362- 1868 14 Jan, 2017 [facility] [address] 54674- 1922 07 Jan, 2017 Other chronic pain G89.29 and Generalized anxiety disorder F41.1 [facility] [address] 08210- 3454 06 Jan, 2017 Cough R05 and Bronchitis J40 [facility] [address] 19668 -9230 04 Jan, 2017 Bronchitis J40 [facility] [address] 48859- 4229 Dec, Vitamin D deficiency E55.9 [facility] [place] [id number] [place] [address] 04623- 9464 Dec, DM (diabetes mellitus) with complications E11.8 [facility] [place] [id number] [place] [address] 61311- 3158 19 Dec, 2016 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 and Vitamin D deficiency E55.9 [facility] [address] 41468- 9515 10 Dec, 2016 DM (diabetes mellitus) with complications E11.8 ; Essential hypertension I10 ; Hyperlipidemia, unspecified hyperlipidemia type E78.5 ; Vitamin D deficiency E55.9 ; Gastroesophageal reflux disease, esophagitis presence not specified K21.9 ; 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 ; Other chronic pain G89.29 ; Encounter for immunization Z23 and Generalized anxiety disorder F41.[address] 85869- 5633 12 Nov, 2016 History of CVA with residual deficit I69.[address] 59537- 1900 11 Nov, 2016 DM (diabetes mellitus) with complications E11.8 [facility] [place] [id number] [place] [address] 75187- 4967 06 Nov, 2016 Left otitis media with effusion H65.92 ; Bronchitis J40 and Canker sores oral K12.0 [facility] [place] [id number] [place] [address] 54901- 8702 Oct, [facility] [place] [id number] [place] [address] 23111- 7914 Oct, DM (diabetes mellitus) with complications E11.8 [facility] [place] [id number] [place] [address] 70129- 0871 Oct, [facility] [place] [id number] [place] [address] 24462- 5470 Sep, DM (diabetes mellitus) with complications E11.8 [facility] [id number] [place] [address] 05752- 9011 11 Sep, 2016 DM (diabetes mellitus) with complications E11.8 ; Essential hypertension I10 ; Gastroesophageal reflux disease, esophagitis presence not specified K21.9 ; Hyperlipidemia, unspecified hyperlipidemia type E78.5 ; Tobacco abuse Z72.0 ; Vitamin D deficiency E55.9 ; History of CVA with residual deficit I69.30 and Seasonal allergic rhinitis due to pollen J30.1 [facility] [address] 66550- 2423 Sep, [place] [address] 40665- 4478 Aug, [facility] [address] 87027 -1607 Aug, Dysuria R30.0 ; Acute cystitis with hematuria N30.01 and Middle ear effusion, right H65.91 [place] [id number] [place] [address] 85246- 8739 Aug, Other complicated headache syndrome G44.59 [facility] [address] 83853- 7797 19 Aug, 2016 DM (diabetes mellitus) with complications E11.8 [facility] [place] [id number] [place] [address] 06642- 8938 14 Aug, 2016 Dysuria R30.0 [facility] [place] [id number] [place] [address] 35583- 0239 Aug, Dysuria R30.0 [place] [id number] [place] [address] 74883- 2795 Aug, [facility] [place] [address] 11884- 8444 July, [facility] [address] 50039- 2919 July, [facility] [place] [address] [place] [address]- 1000 July, DM (diabetes mellitus) with complications E11.8 [facility] [id number] [place] [address] 90726- 0183 July, Other complicated headache syndrome G44.59 [facility] [id number] [place] [address] 68354- 5232 July, [facility] [id number] [place] [address] 87748 -3449 July, Dysuria R30.0 and Acute cystitis with hematuria N30.01 [facility] [address] 37753- 6239 July, [facility] [id number] [place] [address] 31806- 5878 July, Other complicated headache syndrome G44.59 [facility] [id number] [place] [address] 24588 -5415 Jun, Exposure to strep throat Z20.818 and Acute upper respiratory infection, unspecified J06.9 [facility] [id number] [place] [address] 28916- 8808 Jun, [facility] [id number] [place] [address] 54454- 0274 Jun, DM (diabetes mellitus) with complications E11.8 and Gastroesophageal reflux disease, esophagitis presence not specified K21.9 [facility] [id number] [place] [address] 32533- 5196 Jun, Dizziness R42 [facility] [id number] [place] [address] 03161- 5893 Jun, [facility] [id number] [place] [address] 85706 -2661 Jun, [facility] [id number] [place] [address] 84251- 3990 Jun, [facility] [address] [place] [address] 24310 -5860 May, Seasonal allergic rhinitis, unspecified allergic rhinitis trigger J30.2 [facility] [id number] [place] [address] 26543- 2758 May, [facility] [id number] [place] [address] 56363- 9057 May, DM (diabetes mellitus) with complications E11.8 [...] Seasonal allergic rhinitis due to pollen J30.1 [facility] [address] 62690- 1297 May, Gastroesophageal reflux disease, esophagitis presence not specified K21.9 [facility] [id number] [place] [address] 45603- 7082 May, [facility] [id number] [place] [address] 07725- 8567 Apr, [facility] [id number] [place] [address] 77408- 9206 Apr, [facility] [id number] [place] [address] 41371- 4177 Mar, [facility] [id number] [place] [address] 66901- 9419 Mar, [facility] [address] 51063- 9428 Mar, [facility] [id number] [place] [address] 37524- 5913 Mar, [facility] [address] 35727- 5110 Feb, [facility] [address], [place] [address]- 0366 Feb, [facility] [address] [place] [address] 78826- 4329 Feb, [facility] [id number] [place] [address] 87485- 1987 Feb, Major depressive disorder, recurrent episode, moderate F33.1 ; Generalized anxiety disorder F41.1 ; Essential hypertension I10 ; DM ( diabetes mellitus) with complications E11.8 ; Hyperlipidemia, unspecified hyperlipidemia type E78.5 ; 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 and Gastroesophageal reflux disease, esophagitis presence not specified K21.9 [facility] [address] [place] [address] 36291 -4611 Feb, Other viral agents as the cause of diseases classified elsewhere B97.89 and Acute upper respiratory infection, unspecified J06.9 [facility] [address] [place] [address] 55012- 3149 Jan, [facility] [id number] [place] [address] 40494- 8425 Jan, [facility] [address] [place] [address] 63568 -3323 Jan, Acute bronchitis, unspecified organism J20.9 [facility] [place] [address] [place] [address] 95133- 5622 Jan, [place] [address] [place] [address] 40256- 1804 Jan, History of CVA with residual deficit I69.30 [place] [id number] [place] [address] 61071- 9738 Jan, [place] [address] [place] [address] 71589- 0783 Jan, Acute bronchitis, unspecified organism J20.9 [facility] [address], [place] [address]- 3802 Jan, [place] [address] [place] [address] 22041- 6877 Dec, History of CVA with residual deficit I69.30 [place] [address] [place] [address] 80672- 5018 Dec, [place] [id number] [place] [address] 64268- 9638 Dec, Other chronic pain G89.29 ; DM (diabetes mellitus) with complications E11.8 and History of CVA with residual deficit I69.30 [place] [id number] [place] [address] 82812- 7133 Nov, Major depressive disorder, recurrent episode, moderate F33.1 ; Irregular heart rhythm I49.9 ; Essential hypertension I10 ; History of CVA with residual deficit I69.30 ; DM (diabetes mellitus) with complications E11.8 ; Gastroesophageal reflux disease, esophagitis presence not specified K21.9 ; Hyperlipidemia, unspecified hyperlipidemia type E78.5 ; 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 ; Other chronic pain G89.29 and Generalized anxiety disorder F41.1 [address] [place] [address] 38402- 9608 Oct, Generalized anxiety disorder F41.1 ; Major depressive disorder, recurrent episode, moderate F33.1 ; Essential hypertension I10 ; History of CVA with residual deficit I69.30 ; DM (diabetes mellitus) with complications E11.8 ; Gastroesophageal reflux disease, esophagitis presence not specified K21.9 ; Hyperlipidemia, unspecified hyperlipidemia type E78.5 ; Other chronic pain G89.29 and Bacterial conjunctivitis of left eye H10.9 [address] [place] [address] 07831- 0006 Sep, Chronic pain syndrome G89.4 and DM (diabetes mellitus) with complications E11.8 [address] [place] [address] 17153- 7559 Sep, Irregular heart rhythm I49.9 ; Routine health maintenance Z00.00 ; Essential hypertension I10 ; History of CVA with residual deficit I69.30 ; Gastroesophageal reflux disease, esophagitis presence not specified K21.9 ; DM (diabetes mellitus) with complications E11.8 ; Hyperlipidemia, unspecified hyperlipidemia type E78.5 and Other complicated headache syndrome G44.59 [facility] [id number] [address]- 8841 Jun, [facility] [address] [place] [address]- 5427 Jun, [facility] [id number] [place] [address] 48552- 7299 Aug, [facility] [id number] [place] [address] 01385- 9103 Jun, IMMUNIZATIONS No Known Immunizations SOCIAL HISTORY Never Assessed REASON FOR VISIT FYI only PLAN OF CARE VITAL SIGNS MEDICATIONS Unknown Medications RESULTS No Results PROCEDURES No Known procedures INSTRUCTIONS MEDICATIONS ADMINISTERED No Known Medications MEDICAL (GENERAL) HISTORY Type Description Date Medical History diabetes mellitus Medical History hyperlipidemia Medical History hypertension Medical History Anxiety disorder Medical History Blood Clotting Disorder- Dr Galvan at [facility] Medical History Possible Anemia (currently under work up) - Dr Galvan [facility] Medical History irregular heart beat-sees dr. hassan Medical History history of pancreatitis Medical History gerd Medical History History of CVA with residual deficit Medical History Other complicated headache syndrome Medical History Stokes syndrome Surgical History tubal ligation Surgical History section Surgical History cholecystectomy Surgical History Toe Nail Removal x2 Hospitalization History Brain Stem Strokes x5. Has been hospitalized at then transfered to [facility]. 2014 Hospitalization History Child Hospitalization History abd pain and shakiness - [facility] ED visit [facility] Hospitalization History [facility] ED for URI 04/16/17 Hospitalization History via [facility] 08/16/17
--- OUTSIDE RECORDS SUMMARY | 2017-11-04 16:37 | XMS REPORT ---
Author Author HUIZARMICHAEL CoxELE Organization [facility] Address [address] [place] [address] Care Team Providers Care Production Packager Name Role Phone HUIZARSOTERO Cox Unavailable PROBLEMS Type Condition ICD9-CM Code UUY18-WR Code Onset Dates Condition Status SNOMED Code Problem Other chronic pain G89.29 Active 52155993 Problem Tobacco abuse counseling Z71.6 Active 457519225 Problem Tobacco abuse Z72.0 Active 755902210 Problem Acute non intractable tension-type headache G44.209 Active 329415055 Problem Chronic pain syndrome G89.4 Active 805900894 Problem History of CVA with residual deficit I69.30 Active 659976006 Problem Seasonal allergic rhinitis due to pollen J30.1 Active 06035276 Problem Type 2 diabetes mellitus with hyperglycemia E11.65 Active 92924844 Problem alf current use of insulin Z79.4 Active 015588377 Problem Major depressive disorder, recurrent episode, moderate F33.1 Active 927263044 Problem Elevated liver enzymes R74.8 Active 408096871 Problem Vitamin D deficiency E55.9 Active 25373419 Problem Gastroesophageal reflux disease, esophagitis presence not specified K21.9 Active 177988991 Problem Essential hypertension I10 Active 76605242 Problem Generalized anxiety disorder F41.1 Active 86493531 Problem Hyperlipidemia, unspecified hyperlipidemia type E78.5 Active 45441385 Problem 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 Active 585557688 Problem 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 Active 78539431 ALLERGIES Substance Reaction Event Type Date Status Penicillin V Potassium Unknown Drug Allergy Feb, Active Erythromycin Base Unknown Drug Allergy Feb, Active Codeine Unknown Drug Allergy Feb, Active ENCOUNTERS Encounter Location Date Diagnosis [facility] [address] [facility] [id number] [address] Aug, Dysuria R30.0 [facility] [id number] [place] [address] 33909- 6517 Aug, [facility] [id number] [place] [address] 63618 -7651 Aug, Dysuria R30.0 [facility] [id number] [place] [address] 11398- 2885 Aug, [place] [id number] [place] [address] 68191- 3964 July, Cervicalgia M54.2 ; Acute non intractable tension-type headache G44.209 ; Type 2 diabetes mellitus with hyperglycemia E11.65 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 [place] [id number] [place] [address] 20137- 8769 July, Generalized anxiety disorder F41.1 and Chronic pain syndrome G89.4 [place] [id number] [place] [address] 96044- 5587 July, Abscess L02.91 [place] [id number] [place] [address] 95522- 9545 July, [place] [id number] [place] [address] 05425- 9500 July, [place] [id number] [place] [address] 53383- 1416 July, Type 2 diabetes mellitus with hyperglycemia [...] pain syndrome G89.4 and Vaginal candidiasis B37.3 [place] [id number] [place] [address] 94245- 7780 Jun, Generalized anxiety disorder F41.1 and Other chronic pain G89.29 [facility] [id number] [place] [address] 12841- 8938 Jun, [facility] [id number] [place] [address] 12679- 4994 Jun, [facility] [id number] [place] [address] 84099- 9554 Jun, Abnormal levels of other serum enzymes R74.8 [facility] [id number] [place] [address] 33162- 9505 Jun, Abnormal levels of other serum enzymes R74.8 [facility] [id number] [place] [address] 27399- 7768 Jun, Elevated liver enzymes R74.8 [facility] [id number] [place] [address] 83713- 9721 Jun, Elevated liver enzymes R74.8 [facility] [id number] [place] [address] 31412- 4828 May, Right upper quadrant pain R10.11 ; Cervicalgia M54.2 and High risk medication use Z79.899 [facility] [id number] [place] [address] 75299- 0801 May, Generalized anxiety disorder F41.1 and Other chronic pain G89.29 [facility] [id number] [place] [address] 22417- 9505 May, Canker sores oral K12.0 [facility] [id number] [place] [address] 36612- 7343 May, Generalized anxiety disorder F41.1 and Other chronic pain G89.29 [facility] [id number] [place] [address] 11753- 6486 May, [facility] [id number] [place] [address] 27100- 2473 Apr, [facility] IN [facility] [id number] [place] [address] 66738 -6042 Apr, Acute cystitis with hematuria N30.01 and Dysuria R30.0 [facility] [id number] [place] [address] 62804- 4215 Apr, [place] [address] 01214- 9273 Apr, [facility] [address] 86029- 4141 Apr, DM (diabetes mellitus) with complications E11.8 [place] [address] 10948- 0839 Apr, DM (diabetes mellitus) with complications E11.8 [place] [id number] [place] [address] 87174- 1139 Apr, [place] [address] 92855- 6510 Apr, [place] [id number] [place] [address] 19381- 6571 Apr, Other chronic pain G89.29 ; Generalized anxiety disorder F41.1 ; Cervicalgia M54.2 and Controlled substance agreement signed Z79.899 [facility] IN [facility] [id number] [place] [address] 36775 -3579 Mar, Abdominal pain R10.9 and Viral gastroenteritis A08.4 [place] [address] [id number] [place] [address] 24214- 8992 Mar, [place] [address] 43482- 2484 Mar, [place] [id number] [place] [address] 97943- 3312 Mar, DM (diabetes mellitus) with complications E11.8 [...] not specified K21.9 and 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 42536- 0980 Mar, [address] 12234- 7066 Mar, DM (diabetes mellitus) with complications E11.8 ; Abnormal lung sounds R09.89 ; Bronchitis J40 and Hyperlipidemia, unspecified hyperlipidemia type E78.5 [facility] [address] 78617 -9922 Mar, URI, acute J06.[address] 81273- 0723 Mar, [address] 38143- 9817 Mar, DM (diabetes mellitus) with complications E11.8 [place] [address] 87599- 3462 Mar, Other chronic pain G89.29 and Generalized anxiety disorder F41.[address] 28665- 9011 Feb, [address] 54753- 6096 Feb, Mass of left lung R91.8 and Cervicalgia M54.2 [place] [address] 04846- 4503 Feb, [place] [address] 67882- 6088 Feb, [facility] [address] 72123 -9260 11 Feb, 2017 Cough R05 and Bronchitis J40 [facility] [address] 65339 -1704 07 Feb, 2017 Acute nasopharyngitis J00 and Bronchitis J40 [facility] [address] 81590- 1388 06 Feb, 2017 Other chronic pain G89.29 and Generalized anxiety disorder F41.1 [facility] [address] 30442- 4780 29 Jan, 2017 Encounter for immunization Z23 [facility] [address] 84983 -5396 Jan, [facility] IN [facility] [address] 71094 -3110 18 Jan, 2017 [facility] [address] 52245- 0817 16 Jan, 2017 Canker sores oral K12.0 [place] [address] 08831- 9825 14 Jan, 2017 [facility] [address] 61664- 4883 07 Jan, 2017 Other chronic pain G89.29 and Generalized anxiety disorder F41.1 [facility] [address] 19021- 1789 06 Jan, 2017 Cough R05 and Bronchitis J40 [facility] [address] 46892 -6598 Jan, Bronchitis J40 [place] [address] 72634- 3999 Dec, Vitamin D deficiency E55.9 [facility] [address] 38971- 1342 Dec, DM (diabetes mellitus) with complications E11.8 [place] [id number] [place] [address] 54326- 4459 19 Dec, 2016 DM (diabetes mellitus) with complications E11.8 and Vitamin D deficiency E55.9 [place] [id number] [place] [address] 56506- 6976 10 Dec, 2016 DM (diabetes mellitus) with complications E11.8 ; Essential hypertension I10 ; Hyperlipidemia, unspecified hyperlipidemia type E78.5 ; Vitamin D deficiency E55.9 ; Gastroesophageal reflux disease, esophagitis presence not specified K21.9 ; 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 ; Other chronic pain G89.29 ; Encounter for immunization Z23 and Generalized anxiety disorder F41.1 [place] [address] 04437- 3607 12 Nov, 2016 History of CVA with residual deficit I69.[address] 86174- 2158 11 Nov, 2016 DM (diabetes mellitus) with complications E11.8 [place] [address] 84359- 1990 06 Nov, 2016 Left otitis media with effusion H65.92 ; Bronchitis J40 and Canker sores oral K12.0 [place] [id number] [place] [address] 82218- 7570 Oct, [place] [address] 05857- 5531 Oct, DM (diabetes mellitus) with complications E11.8 [place] [address] 14311- 1273 Oct, [place] [address] 41065- 9612 Sep, DM (diabetes mellitus) with complications E11.8 [place] [address] 14051- 6615 Sep, 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 ; Essential hypertension I10 ; Gastroesophageal reflux disease, esophagitis presence not specified K21.9 ; Hyperlipidemia, unspecified hyperlipidemia type E78.5 ; Tobacco abuse Z72.0 ; Vitamin D deficiency E55.9 ; History of CVA with residual deficit I69.30 and Seasonal allergic rhinitis due to pollen J30.1 [facility] [id number] [place] [address] 84877- 1184 Sep, [facility] [id number] [place] [address] 25043- 1958 Aug, [facility] [id number] [place] [address] 92301 -1117 Aug, Dysuria R30.0 ; Acute cystitis with hematuria N30.01 and Middle ear effusion, right H65.91 [place] [id number] [place] [address] 38117- 8377 Aug, Other complicated headache syndrome G44.59 [place] [id number] [place] [address] 08908- 4119 Aug, DM (diabetes mellitus) with complications E11.8 [place] [id number] [place] [address] 65357- 1404 14 Aug, 2016 Dysuria R30.0 [place] [id number] [place] [address] 77289- 2359 Aug, Dysuria R30.0 [place] [id number] [place] [address] 25099- 3600 Aug, [place] [id number] [place] [address] 40791- 9171 July, [place] [id number] [place] [address] 10219- 3794 July, [place] [id number] [place] [address] 81365- 2710 July, DM (diabetes mellitus) with complications E11.8 [place] [id number] [place] [address] 46397- 0751 July, Other complicated headache syndrome G44.59 [facility] [id number] [place] [address] 82757- 7966 July, [facility] [id number] [place] [address] 42848 -3762 July, Dysuria R30.0 and Acute cystitis with hematuria N30.01 [facility] [address] 55929- 6692 July, [facility] [id number] [place] [address] 65086- 8683 July, Other complicated headache syndrome G44.59 [facility] [id number] [place] [address] 89145 -0619 Jun, Exposure to strep throat Z20.818 and Acute upper respiratory infection, unspecified J06.9 [facility] [id number] [place] [address] 30371- 0480 Jun, [facility] [id number] [place] [address] 85834- 9865 Jun, 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 and Gastroesophageal reflux disease, esophagitis presence not specified K21.9 [facility] [id number] [place] [address] 36429- 1580 Jun, [facility] [id number] [place] [address] 77434- 3178 Jun, Dizziness R42 [facility] [id number] [place] [address] 85283 -1097 Jun, [facility] [id number] [place] [address] 55310- 5661 Jun, [facility] [id number] [place] [address] 82657 -4544 May, Seasonal allergic rhinitis, unspecified allergic rhinitis trigger J30.2 [facility] [address] [id number] [address]- 9821 May, [facility] [id number] [place] [address] 63367- 8126 May, DM (diabetes mellitus) with complications E11.8 [...] Seasonal allergic rhinitis due to pollen J30.1 [facility] [id number] [place] [address] 71383- 9327 May, Gastroesophageal reflux disease, esophagitis presence not specified K21.9 [facility] [id number] [place] [address] 00316- 0407 May, [facility] [id number] [place] [address] 48700- 5133 Apr, [facility] [id number] [place] [address] 90057- 8272 Apr, [facility] [id number] [place] [address] 57231- 5866 Mar, [facility] [address] [address]- 3738 Mar, [facility] [id number] [place] [address] 63092- 4420 Mar, [facility] [id number] [address]- 0715 Mar, [facility] [id number] [place] [address] 507771- 8749 Feb, [facility] [address] [address]60[place]- 7925 Feb, [facility] [id number] [place] [address] 25774- 1927 Feb, [place] [address] 03093- 9467 Feb, Major depressive disorder, recurrent episode, moderate F33.1 ; Generalized anxiety disorder F41.1 ; Essential hypertension I10 ; DM ( diabetes mellitus) with complications E11.8 ; Hyperlipidemia, unspecified hyperlipidemia type E78.5 ; 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 [id number] [place] [address] 03359 -9361 Feb, Other viral agents as the cause of diseases classified elsewhere B97.89 and Acute upper respiratory infection, unspecified J06.9 [place] [id number] [place] [address] 79340- 4016 Jan, [place] [address] 82491- 8080 Jan, [facility] [id number] [place] [address] 28431 -2941 Jan, Acute bronchitis, unspecified organism J20.9 [place] [id number] [place] [address] 06656- 5451 Jan, [place] [id number] [place] [address] 88481- 1861 Jan, History of CVA with residual deficit I69.30 [place] [id number] [place] [address] 03750- 5467 Jan, [place] [address] 30771- 7662 Jan, Acute bronchitis, unspecified organism J20.9 [place] [id number] [place] [address] 38776- 5512 Jan, [place] [address] 96000- 1374 Dec, History of CVA with residual deficit I69.30 [place] [address] [address]- 5753 Dec, [place] [id number] [place] [address] 30982- 7413 Dec, Other chronic pain G89.29 ; DM (diabetes mellitus) with complications E11.8 and History of CVA with residual deficit I69.30 [address] [place] [address] 77319- 6598 Nov, Major depressive disorder, recurrent episode, moderate F33.1 ; Irregular heart rhythm I49.9 ; Essential hypertension I10 ; History of CVA with residual deficit I69.30 ; DM (diabetes mellitus) with complications E11.8 ; Gastroesophageal reflux disease, esophagitis presence not specified K21.9 ; Hyperlipidemia, unspecified hyperlipidemia type E78.5 ; 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 ; Other chronic pain G89.29 and Generalized anxiety disorder F41.[address] [place] [address] 96272- 5013 Oct, Generalized anxiety disorder F41.1 ; Major depressive disorder, recurrent episode, moderate F33.1 ; Essential hypertension I10 ; History of CVA with residual deficit I69.30 ; DM (diabetes mellitus) with complications E11.8 ; Gastroesophageal reflux disease, esophagitis presence not specified K21.9 ; Hyperlipidemia, unspecified hyperlipidemia type E78.5 ; Other chronic pain G89.29 and Bacterial conjunctivitis of left eye H10.9 [place] [id number] [place] [address] 59078- 6027 Sep, Chronic pain syndrome G89.4 and DM (diabetes mellitus) with complications E11.8 [address] [place] [address] 71987- 0721 Sep, Irregular heart rhythm I49.9 ; Routine health maintenance Z00.00 ; Essential hypertension I10 ; History of CVA with residual deficit I69.30 ; Gastroesophageal reflux disease, esophagitis presence not specified K21.9 ; DM (diabetes mellitus) with complications E11.8 ; Hyperlipidemia, unspecified hyperlipidemia type E78.5 and Other complicated headache syndrome G44.59 [place] [address] [facility] [id number] [place] [address]- 4791 14 Jun, 2014 [place] [address] [facility] [id number], [place] [address]- 9457 Jun, [place] [address] [facility] [id number] [address]- 0342 Aug, [place] [address] [facility] [id number], [place] [address]- 0922 Jun, IMMUNIZATIONS No Known Immunizations SOCIAL HISTORY Never Assessed REASON FOR VISIT congestion and cough continues, breathing treatments only helping for 1 hour after administration cathryn aguilar PLAN OF CARE Activity Details Follow Up prn Reason: VITAL SIGNS Height 62 in 2017-02-28 Weight 200.6 lbs 2017-02-28 Temperature 97.4 degrees Fahrenheit 2017-02-28 Heart Rate 98 bpm 2017-02-28 Respiratory Rate 22 2017-02-28 Oximetry after tx:97 % 2017-02-28 BMI 36.69 kg/m2 2017-02-28 Blood pressure systolic 122 mmHg 2017-02-28 Blood pressure diastolic 72 mmHg 2017-02-28 MEDICATIONS Medication Instructions Dosage Frequency Start Date End Date Duration Status Carafate 1 GM Orally Twice a day 1 tablet on an empty stomach 12h May, 30 days Active Naproxen 500 mg Orally bid prn 1 tablet 7 Sep, 2017 90 days Active Onglyza 5 mg Orally Once a day 1 tablet 24h 20 Dec, 2016 90 days Active Diltiazem HCl ER 120 MG Orally Once a day 1 capsule on an empty stomach in the morning 24h 90 days Active One Touch/One Touch II Starter 1 glucometer subcutaneously 3 times a day to take blood sugars daily Dispense as insurance allows 8h Sep, Active Test strips 8h Active Potassium Chloride ER 10 TAKE ONE TABLET BY MOUTH TWICE A DAY WITH FOOD 90 Active Atorvastatin Calcium 80 MG Orally Once a day 1 tablet 24h 90 days Active Tessalon Perles 100 mg Orally Three times a day 1 capsule as needed 8h 11 Feb, 2017 Feb, 10 days Active Hydrocodone-Acetaminophen 10-325 MG Orally every 6 hrs 1 tablet as needed 6h 07 Feb, 2017 28 days Active Plavix 75 MG Orally Once a day 1 tablet 24h 90 days Active Mucinex 600 MG Orally every 12 hrs 1 tablet as needed 12h 11 Feb, 2017 18 Feb, 2017 07 days Active Fenofibrate 54 Orally Once a day 1 tablet with a meal 24h 90 Active Fluticasone Propionate 50 MCG/ACT Nasally Once a day 1 spray in each nostril 24h 20 Feb, 2016 30 day(s) Active Pen Daniels 31G X 5 MM subcutaneously Once a day as directed 24h Jan, 90 days Active ProAir HFA 108 (90 Base) MCG/ACT Inhalation every 6 hrs 2 puffs as needed 6h 04 Jan, 2017 7 days Active Bath/Shower Seat 1 please provide one adult shower seat for patient use one time shower/bath seat for bathing Dec, Active ASA Oral Once a day 1 tab 24h 90 days Active Edmore Saline Nasal Gel 1 Nasally 2 times a day apply thin layer to nares bilat 12h Feb, 11 Feb, 2018 12 months Active Pantoprazole Sodium 20 mg Orally 2 times a day 1 tablets 12h May, 90 days Active PredniSONE 20 mg Orally Once a day 1 tablet 24h Feb, 16 Feb, 2017 05 days Active Albuterol Sulfate 0.63 MG/3ML Inhalation every 6 hrs 3 ml as needed 6h Feb, 30 days Active Canagliflozin 100 mg Orally Once a day 1 tablet 24h 10 Dec, 2016 Mar, 30 day(s) Active CorneliaAllan Tariq Lancets 33G 33 TEST BLOOD SUGAR THREE TIMES A DAY E11.8 30 Active Levemir Flexpen 100 UNIT/ML Subcutaneous at hs 25 units 90 days Active Hydrochlorothiazide 25 MG Orally Once a day 1 tablet 24h 90 days Active Triamcinolone Acetonide 0.1 % oral lesion twice a day 1 application at bedtime 12h Nov, 07 days Active Azithromycin 250 MG Orally Once a day 2 tablets on the first day, then 1 tablet daily for 4 days 24h Feb, Feb, 5 day(s) Active Diflucan 150 MG Orally One time 1 tablet Jan, Active Metoprolol Tartrate 25 MG Orally Twice a day 1 tablet with food 12h 90 days Active CompAir Nebulizer - as directed Feb, 30 days Active MetFORMIN HCl ER 750 MG Orally twice a day 1 tablet 12h 90 days Active ProAir HFA 108 (90 Base) MCG/ACT Inhalation every 4 hrs prn 2 puffs as needed Nov, Active Xanax 1 MG Orally 4 times a day 1 tablet 6h 28 days Active Walker - as directed Jan, Active Lancets - Active Doxycycline Monohydrate 100 mg Orally every 12 hrs 1 capsule 12h Feb, Feb, 10 days Active RESULTS Name Result Date Reference Range Xray : Chest (IN HOUSE) 2017-02-28 PROCEDURES Procedure Date Ordered Result Body Site NEBULIZER TREATMENT 2017-02-28 N/A MEASURE BLOOD OXYGEN LEVEL Feb 28, 2017 [facility] VISIT ESTABLISHED PATIENT Feb 28, 2017 CHEST X-RAY Feb 28, 2017 NEB/MDI RX INITIAL Feb 28, 2017 INSTRUCTIONS MEDICATIONS ADMINISTERED No Known Medications MEDICAL (GENERAL) HISTORY Type Description Date Medical History diabetes mellitus Medical History hyperlipidemia Medical History hypertension Medical History Anxiety disorder Medical History Blood Clotting Disorder- Dr Galvan at [facility] Medical History Possible Anemia (currently under work up) - Dr Galvan [facility] Medical History irregular heart beat-sees dr. hassan Medical History history of pancreatitis Medical History gerd Medical History History of CVA with residual deficit Medical History Other complicated headache syndrome Medical History Stokes syndrome Surgical History tubal ligation Surgical History section Surgical History cholecystectomy Surgical History Toe Nail Removal x2 Hospitalization History Brain Stem Strokes x5. Has been hospitalized at then transfered to [place]. 2014 Hospitalization History Child Hospitalization History abd pain and shakiness - [facility] ED visit [facility] Hospitalization History [facility] ED for URI 04/16/17 Hospitalization History via [place] [facility] er 08/16/17
--- OUTSIDE RECORDS SUMMARY | 2017-11-04 16:38 | XMS REPORT ---
Author Author SOTERO HUIZAR Organization [facility] Address [address] [place] [address] Care Team Providers Care Manager Business Operations Name Role Phone HUIZARMICHAEL CoxELE Unavailable PROBLEMS Type Condition ICD9-CM Code [id number] Code Onset Dates Condition Status SNOMED Code Problem Other chronic pain G89.29 Active 56566168 Problem Tobacco abuse counseling Z71.6 Active 508422068 Problem Tobacco abuse Z72.0 Active 151507703 Problem Acute non intractable tension-type headache G44.209 Active 872318269 Problem Chronic pain syndrome G89.4 Active 510739042 Problem History of CVA with residual deficit I69.30 Active 429536526 Problem Seasonal allergic rhinitis due to pollen J30.1 Active 81515888 Problem Type 2 diabetes mellitus with hyperglycemia E11.65 Active 91058736 Problem alf current use of insulin Z79.4 Active 624922613 Problem Major depressive disorder, recurrent episode, moderate F33.1 Active 926853630 Problem Elevated liver enzymes R74.8 Active 178355632 Problem Vitamin D deficiency E55.9 Active 64430850 Problem Gastroesophageal reflux disease, esophagitis presence not specified K21.9 Active 778673175 Problem Essential hypertension I10 Active 11640003 Problem Generalized anxiety disorder F41.1 Active 22395621 Problem Hyperlipidemia, unspecified hyperlipidemia type E78.5 Active 25532407 Problem 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 Active 503012710 Problem 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 Active 70500953 ALLERGIES No Information ENCOUNTERS Encounter Location Date Diagnosis [facility] [id number] [place] [address] 99332- 6908 Aug, Dysuria R30.0 [facility] [id number] [place] [address] 29123- 6157 Aug, [facility] [id number] [place] [address] 38471 -3790 Aug, Dysuria R30.0 [place] [id number] [place] [address] 77962- 1338 Aug, [place] [address] 84270- 7331 July, Cervicalgia M54.2 ; Acute non intractable tension-type headache G44.209 ; Type 2 diabetes mellitus with hyperglycemia E11.65 and 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.4 [place] [address] 45096- 1135 July, Generalized anxiety disorder F41.1 and Chronic pain syndrome G89.[address] 99736- 5518 July, Abscess L02.[address] 71502- 4575 July, [place] [address] 86714- 8162 July, [place] [address] 63270- 8889 July, Type 2 diabetes mellitus with hyperglycemia E11.65 ; 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.4 ; Elevated [...] pain syndrome G89.4 and Vaginal candidiasis B37.3 [place] [id number] [place] [address] 61190- 5953 Jun, Generalized anxiety disorder F41.1 and Other chronic pain G89.[address] [place] [address]- 2956 Jun, [facility] [address] [place] [id number] [place] [address] 63870- 9924 Jun, [facility] [address] [place] [id number] [place] [address] 95580- 9745 Jun, Abnormal levels of other serum enzymes R74.8 [facility] [address] 33009- 1919 Jun, Abnormal levels of other serum enzymes R74.8 [facility] [address] [place] [id number] [place] [address] 48367- 4290 Jun, Elevated liver enzymes R74.8 [facility] [address] [place] [id number] [place] [address] 19879- 1392 Jun, Elevated liver enzymes R74.8 [facility] [address] [place] [id number] [place] [address] 79021- 2429 May, Right upper quadrant pain R10.11 ; Cervicalgia M54.2 and High risk medication use Z79.899 [facility] [address] [place] [id number] [place] [address] 97470- 5591 May, Generalized anxiety disorder F41.1 and Other chronic pain G89.29 [facility] [address] [place] [id number] [place] [address] 52288- 8183 May, Canker sores oral K12.0 [facility] [address] [place] [id number] [place] [address] 57011- 2189 May, Generalized anxiety disorder F41.1 and Other chronic pain G89.29 [facility] [address] [place] [id number] [place] [address] 60931- 2741 May, [facility] [address] [place] [id number] [place] [address] 29762- 9846 Apr, [facility] [address] [place] [id number] [place] [address] 26427 -1407 Apr, Acute cystitis with hematuria N30.01 and Dysuria R30.0 [place] [address] [place] [id number] [place] [address] 13636- 0765 Apr, [place] [address] [place] [id number] [place] [address] 98029- 1956 Apr, [place] [address] 83623- 5581 Apr, DM (diabetes mellitus) with complications E11.8 [place] [address] 47648- 0787 Apr, DM (diabetes mellitus) with complications E11.8 [place] [address] [place] [id number] [place] [address] 48877- 1629 Apr, [place] [address] 80678- 5917 Apr, [place] [address] 74171- 1023 Apr, Other chronic pain G89.29 ; Generalized anxiety disorder F41.1 ; Cervicalgia M54.2 and Controlled substance agreement signed Z79.899 [facility] IN [facility] [address] [place] [id number] [place] [address] 38035 -6612 Mar, Abdominal pain R10.9 and Viral gastroenteritis A08.4 [place] [address] [place] [id number] [place] [address] 22075- 3226 Mar, [place] [address] [place] [id number] [place] [address] 03038- 4378 Mar, [place] [address] 07491- 0537 Mar, DM (diabetes mellitus) with complications E11.8 [...] not specified K21.9 and 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 [place] [address] 14502- 9764 Mar, [place] [address] 70399- 0725 Mar, DM (diabetes mellitus) with complications E11.8 ; Abnormal lung sounds R09.89 ; Bronchitis J40 and Hyperlipidemia, unspecified hyperlipidemia type E78.5 [facility] [place] [address] 50656 -8539 Mar, URI, acute J06.9 [place] [address] 70371- 9610 Mar, [place] [address] 71697- 5341 Mar, DM (diabetes mellitus) with complications E11.8 [place] [address] 77671- 8277 Mar, Other chronic pain G89.29 and Generalized anxiety disorder F41.1 [place] [address] 97236- 9329 Feb, [place] [address] 45453- 1603 Feb, Mass of left lung R91.8 and Cervicalgia M54.2 [place] [address] 02530- 1956 Feb, [place] [address] 44692- 5605 Feb, [facility] [address] 52343 -8473 Feb, Cough R05 and Bronchitis J40 [facility] [address] [place] [id number] [place] [address] 25603 -9342 07 Feb, 2017 Acute nasopharyngitis J00 and Bronchitis J40 [facility] [address] 26810- 7984 06 Feb, 2017 Other chronic pain G89.29 and Generalized anxiety disorder F41.1 [facility] [address] 83189- 2500 Jan, Encounter for immunization Z23 [facility] [address] 07708 -1892 Jan, [facility] [address] 93642 -4841 Jan, [place] [address] 08872- 7529 Jan, Canker sores oral K12.0 [place] [address] 74334- 7456 14 Jan, 2017 [place] [address] 66368- 9649 07 Jan, 2017 Other chronic pain G89.29 and Generalized anxiety disorder F41.1 [place] [address] 50431- 0606 06 Jan, 2017 Cough R05 and Bronchitis J40 [facility] [address] 71522 -3749 Jan, Bronchitis J40 [place] [address] 55153- 4124 Dec, Vitamin D deficiency E55.9 [place] [address] 23301- 9625 Dec, DM (diabetes mellitus) with complications E11.8 [place] [address] 80259- 6456 Dec, DM (diabetes mellitus) with complications E11.8 and Vitamin D deficiency E55.9 [place] [address] 18826- 9755 10 Dec, 2016 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 ; Essential hypertension I10 ; Hyperlipidemia, unspecified hyperlipidemia type E78.5 ; Vitamin D deficiency E55.9 ; Gastroesophageal reflux disease, esophagitis presence not specified K21.9 ; 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 ; Other chronic pain G89.29 ; Encounter for immunization Z23 and Generalized anxiety disorder F41.1 [place] [address] 11985- 5703 12 Nov, 2016 History of CVA with residual deficit I69.[address] 07978- 4354 11 Nov, 2016 DM (diabetes mellitus) with complications E11.[address] 69440- 6182 06 Nov, 2016 Left otitis media with effusion H65.92 ; Bronchitis J40 and Canker sores oral K12.[address] 75828- 9576 Oct, [place] [address] 40996- 1169 Oct, DM (diabetes mellitus) with complications E11.8 [place] [address] 35915- 4010 Oct, [place] [address] 58671- 6302 Sep, DM (diabetes mellitus) with complications E11.8 [place] [address] 12185- 9129 Sep, DM (diabetes mellitus) with complications E11.8 ; Essential hypertension I10 ; Gastroesophageal reflux disease, esophagitis presence not specified K21.9 ; Hyperlipidemia, unspecified hyperlipidemia type E78.5 ; Tobacco abuse Z72.0 ; Vitamin D deficiency E55.9 ; History of CVA with residual deficit I69.30 and Seasonal allergic rhinitis due to pollen J30.1 [facility] [address] [place] [address] 36523- 3543 Sep, [facility] [address] [place] [id number] [place] [address] 04024- 5673 Aug, [facility] IN [facility] [address] [place] [id number] [place] [address] 64003 -6511 Aug, Dysuria R30.0 ; Acute cystitis with hematuria N30.01 and Middle ear effusion, right H65.91 [facility] [address] [place] [id number] [place] [address] 01066- 9550 Aug, Other complicated headache syndrome G44.59 [facility] [address] [place] [id number] [place] [address] 55063- 8938 Aug, DM (diabetes mellitus) with complications E11.8 [facility] [address] [place] [id number] [place] [address] 68438- 8907 Aug, Dysuria R30.0 [facility] [address] [place] [id number] [place] [address] 30714- 2613 Aug, Dysuria R30.0 [facility] [address] [place] [id number] [place] [address] 69147- 9707 Aug, [facility] [address] [place] [id number] [place] [address] 58108- 7289 July, [facility] [address] [place] [id number] [place] [address] 81876- 2913 July, [facility] [address] [place] [id number] [place] [address] 86936- 0113 July, DM (diabetes mellitus) with complications E11.8 [facility] [address] [place] [id number] [place] [address] 21980- 3480 July, Other complicated headache syndrome G44.59 [facility] [address] [place] [id number] [place] [address] 14224- 9396 July, [facility] [address] [place] [id number] [place] [address] 74597 -4297 July, Dysuria R30.0 and Acute cystitis with hematuria N30.01 [facility] [address] 68002- 8435 July, [facility] [address] 13154- 9095 July, Other complicated headache syndrome G44.59 [facility] [address] 62609 -4026 Jun, Exposure to strep throat Z20.818 and Acute upper respiratory infection, unspecified J06.9 [facility] [address] 65655- 6534 Jun, [facility] [address] 87090- 3639 Jun, 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 and Gastroesophageal reflux disease, esophagitis presence not specified K21.9 [place] [address] 27594- 1234 Jun, [facility] [address] [place] [id number] [place] [address] 29715- 9625 Jun, Dizziness R42 [facility] [address] [place] [id number] [place] [address] 55495 -1199 Jun, [facility] [address] [place] [id number] [place] [address] 07535- 9114 Jun, [facility] [address] 99831 -1781 May, Seasonal allergic rhinitis, unspecified allergic rhinitis trigger J30.2 [facility] [address] [place] [id number] [place] [address] 04644- 2396 May, [facility] [address] [place] [address]- 7758 May, 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 [...] allergic rhinitis due to pollen J30.1 [facility] [address] [place] [id number] [place] [address] 63462- 5697 May, Gastroesophageal reflux disease, esophagitis presence not specified K21.9 [facility] [address] [place] [id number] [place] [address] 61805- 8750 May, [facility] [address] [place] [id number] [place] [address] 62236- 2842 Apr, [facility] [address] [place] [id number] [place] [address] 32944- 5449 Apr, [facility] [address] [place] [id number] [place] [address] 37657- 5113 Mar, [facility] [address] [place] [id number] [place] [address] 73041- 7327 Mar, [facility] [address] [place] [id number] [place] [address] 06587- 9965 Mar, [facility] [address] [place] [id number] [place] [address] 71842- 6190 Mar, [facility] [address] [place] [id number] [place] [address] 367775- 7916 Feb, [facility] [address] [place] [id number] [place] [address] 823454- 2927 Feb, [facility] [address] [place] [id number] [place] [address] 311228- 8085 Feb, [facility] [address] [place] [id number] [address]- 1269 Feb, Major depressive disorder, recurrent episode, moderate F33.1 ; Generalized anxiety disorder F41.1 ; Essential hypertension I10 ; DM ( diabetes mellitus) with complications E11.8 ; Hyperlipidemia, unspecified hyperlipidemia type E78.5 ; 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 IN [facility] [address] [place] [id number] [place] [address] 37869 -5571 Jan, Acute bronchitis, unspecified organism J20.9 [place] [address] [place] [id number] [place] [address] 11113- 1896 Jan, [place] [address] [place] [id number] [place] [address] 37122- 0028 Jan, History of CVA with residual deficit I69.30 [place] [address] [place] [id number] [place] [address] 79628- 8592 Jan, [place] [address] [place] [id number] [place] [address] 95720- 9424 Jan, Acute bronchitis, unspecified organism J20.9 [place] [address] [place] [id number] [place] [address] 26565- 1542 Jan, [place] [address] [place] [id number] [place] [address] 81081- 7556 Dec, History of CVA with residual deficit I69.30 [place] [address] 82776- 9019 Dec, [place] [address] [place] [address] 86607- 2671 Dec, Other chronic pain G89.29 ; 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 and History of CVA with residual deficit I69.30 [place] [address] [address]- 5735 Nov, Major depressive disorder, recurrent episode, moderate F33.1 ; Irregular heart rhythm I49.9 ; Essential hypertension I10 ; History of CVA with residual deficit I69.30 ; 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 ; Gastroesophageal reflux disease, esophagitis presence not specified K21.9 ; Hyperlipidemia, unspecified hyperlipidemia type E78.5 ; 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 ; Other chronic pain G89.29 and Generalized anxiety disorder F41.[address] [place] [address] 72184- 9509 Oct, Generalized anxiety disorder F41.1 ; Major depressive disorder, recurrent episode, moderate F33.1 ; Essential hypertension I10 ; History of CVA with residual deficit I69.30 ; 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 ; Gastroesophageal reflux disease, esophagitis presence not specified K21.9 ; Hyperlipidemia, unspecified hyperlipidemia type E78.5 ; Other chronic pain G89.29 and Bacterial conjunctivitis of left eye H10.9 [address] [address]- 8057 Sep, Chronic pain syndrome G89.4 and DM (diabetes mellitus) with complications E11.8 [place] [address] [place] [address] 96446- 2350 Sep, Irregular heart rhythm I49.9 ; Routine health maintenance Z00.00 ; Essential hypertension I10 ; History of CVA with residual deficit I69.30 ; Gastroesophageal reflux disease, esophagitis presence not specified K21.9 ; DM (diabetes mellitus) with complications E11.8 ; Hyperlipidemia, unspecified hyperlipidemia type E78.5 and Other complicated headache syndrome G44.59 [place] [id number] [place] [address] 81738- 6916 14 Jun, 2014 [facility] [address] [facility] [id number] [address]- 7866 Jun, [facility] [address] [facility] [id number] [address]- 2546 Aug, [facility] [address] [facility] [id number] [place] [address]- 2546 Jun, IMMUNIZATIONS No Known Immunizations SOCIAL HISTORY Never Assessed REASON FOR VISIT Requests return call PLAN OF CARE VITAL SIGNS MEDICATIONS Medication Instructions Dosage Frequency Start Date End Date Duration Status Diflucan 150 MG Orally One time 1 tablet Jan, Active Nystatin 317329 UNIT/ML Mouth/Throat Four times a day 4 ml 6h Feb, Feb, 10 days Active RESULTS No Results PROCEDURES No Known procedures INSTRUCTIONS MEDICATIONS ADMINISTERED No Known Medications MEDICAL (GENERAL) HISTORY Type Description Date Medical History diabetes mellitus Medical History hyperlipidemia Medical History hypertension Medical History Anxiety disorder Medical History Blood Clotting Disorder- Dr Galvan at [facility] Medical History Possible Anemia (currently under work up) - Dr Galvan [facility] Medical History irregular heart beat-sees dr. hassan Medical History history of pancreatitis Medical History gerd Medical History History of CVA with residual deficit Medical History Other complicated headache syndrome Medical History Stokes syndrome Surgical History tubal ligation Surgical History section Surgical History cholecystectomy Surgical History Toe Nail Removal x2 Hospitalization History Brain Stem Strokes x5. Has been hospitalized at then transfered to [place]. 2014 Hospitalization History Child Hospitalization History abd pain and shakiness - [facility] ED visit [facility] Hospitalization History [facility] ED for URI 04/16/17 Hospitalization History via [facility] er 08[facility]16/17
--- OUTSIDE RECORDS SUMMARY | 2017-11-04 16:39 | XMS REPORT ---
Author Author JOSE DELGADO Organization [facility] Address [address] [place] [address] Care Team Providers Care Pt Skilled Name Role Phone JOSE DELGADO Unavailable PROBLEMS Type Condition ICD9-CM Code FQK15-XQ Code Onset Dates Condition Status SNOMED Code Problem Other chronic pain G89.29 Active 77873824 Problem Tobacco abuse counseling Z71.6 Active 853233967 Problem Tobacco abuse Z72.0 Active 469509869 Problem Acute non intractable tension-type headache G44.209 Active 910799882 Problem Chronic pain syndrome G89.4 Active 954203714 Problem History of CVA with residual deficit I69.30 Active 559168472 Problem Seasonal allergic rhinitis due to pollen J30.1 Active 17788836 Problem Type 2 diabetes mellitus with hyperglycemia E11.65 Active 93158551 Problem 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 Active 834351258 Problem Major depressive disorder, recurrent episode, moderate F33.1 Active 897037822 Problem Elevated liver enzymes R74.8 Active 243717140 Problem Vitamin D deficiency E55.9 Active 74030383 Problem Gastroesophageal reflux disease, esophagitis presence not specified K21.9 Active 864503906 Problem Essential hypertension I10 Active 25572041 Problem Generalized anxiety disorder F41.1 Active 81748480 Problem Hyperlipidemia, unspecified hyperlipidemia type E78.5 Active 68268178 Problem 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 Active 139829113 Problem DM (diabetes mellitus) with complications E11.8 Active 51137135 ALLERGIES No Information ENCOUNTERS Encounter Location Date Diagnosis [facility] [address], [place] [address] Sep, Generalized anxiety disorder F41.1 and Chronic pain syndrome G89.4 [facility] [id number], [place] [address] Aug, Dysuria R30.0 [facility] [id number] [place] [address] 86092- 3525 Aug, Generalized anxiety disorder F41.1 ; Chronic pain syndrome G89.4 and Dysuria R30.0 [facility] [id number] [place] [address] 68624- 5453 Aug, Acute cystitis with hematuria N30.01 and Candidal dermatitis B37.2 [facility] [id number] [place] [address] 15384- 6234 Aug, Dysuria R30.0 [facility] [id number] [place] [address] 61265- 1267 Aug, [facility] [id number] [place] [address] 05269 -3116 Aug, Dysuria R30.0 [facility] [id number] [place] [address] 93010- 5610 Aug, [facility] [id number] [place] [address] 88775- 6253 July, Cervicalgia M54.2 ; Acute non intractable tension-type headache G44.209 ; Type 2 diabetes mellitus with hyperglycemia E11.65 and nursing home current use of insulin Z79.4 [facility] [id number] [place] [address] 02770- 2840 July, Generalized anxiety disorder F41.1 and Chronic pain syndrome G89.4 [facility] [id number] [place] [address] 11651- 9052 July, Abscess L02.91 [facility] [id number] [place] [address] 77195- 7999 July, [facility] [id number] [place] [address] 72441- 3485 July, [facility] [id number] [place] [address] 99489- 4376 July, Type 2 diabetes mellitus with hyperglycemia E11.65 ; 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 ; [...] pain syndrome G89.4 and Vaginal candidiasis B37.3 [facility] [address] 00378- 1740 Jun, Generalized anxiety disorder F41.1 and Other chronic pain G89.29 [facility] [address] 89868- 0819 Jun, [facility] [address] 43820- 1976 Jun, [facility] [address] 57619- 0904 Jun, Abnormal levels of other serum enzymes R74.8 [facility] [address] 00693- 6170 Jun, Abnormal levels of other serum enzymes R74.8 [facility] [address] 43580- 4945 Jun, Elevated liver enzymes R74.8 [facility] [address] 20243- 3638 Jun, Elevated liver enzymes R74.8 [facility] [address] 54982- 8909 May, Right upper quadrant pain R10.11 ; Cervicalgia M54.2 and High risk medication use Z79.899 [facility] [id number] [place] [address] 00663- 7291 May, Generalized anxiety disorder F41.1 and Other chronic pain G89.29 [facility] [id number] [place] [address] 72292- 6617 May, Canker sores oral K12.0 [facility] [address] 38951- 0291 May, Generalized anxiety disorder F41.1 and Other chronic pain G89.29 [facility] [address] 30640- 1827 May, [facility] [address] 91803- 2943 Apr, [facility] [address] 04768 -9931 Apr, Acute cystitis with hematuria N30.01 and Dysuria R30.0 [facility] [address] 33850- 9511 Apr, [facility] [address] 15630- 8611 Apr, [facility] [address] 85875- 8506 Apr, DM (diabetes mellitus) with complications E11.8 [facility] [address] 38641- 4888 06 Apr, 2017 DM (diabetes mellitus) with complications E11.8 [facility] [address] 25235- 8252 Apr, [facility] [id number] [place] [address] 53514- 9343 Apr, [facility] [address] 14976- 5353 Apr, Other chronic pain G89.29 ; Generalized anxiety disorder F41.1 ; Cervicalgia M54.2 and Controlled substance agreement signed Z79.899 [facility] [address] 05684 -2948 Mar, Abdominal pain R10.9 and Viral gastroenteritis A08.4 [facility] [address] 97624- 2418 Mar, [facility] [address] 07885- 8838 Mar, [facility] [address] 28028- 3836 Mar, DM (diabetes mellitus) with complications E11.8 ; Type 2 diabetes mellitus with hyperglycemia E11.65 ; 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 ; Essential hypertension I10 ; Bronchitis J40 ; Major depressive disorder , recurrent episode, moderate F33.1 ; Hyperlipidemia, unspecified hyperlipidemia type E78.5 ; Tobacco abuse Z72.0 ; Tobacco abuse counseling Z71.6 ; History of CVA with residual deficit I69.30 ; Gastroesophageal reflux disease, esophagitis presence not specified K21.9 and 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 [facility] [address] 89033- 1916 Mar, [facility] [address] 89115- 5007 Mar, DM (diabetes mellitus) with complications E11.8 ; Abnormal lung sounds R09.89 ; Bronchitis J40 and Hyperlipidemia, unspecified hyperlipidemia type E78.5 [facility] [address] 85681 -8645 Mar, URI, acute J06.9 [facility] [id number] [place] [address] 73966- 0468 Mar, [facility] [address] 17510- 3350 Mar, DM (diabetes mellitus) with complications E11.8 [facility] [address] 57798- 0043 Mar, Other chronic pain G89.29 and Generalized anxiety disorder F41.1 [facility] [address] 58708- 0695 Feb, [facility] [address] 05478- 0017 Feb, Mass of left lung R91.8 and Cervicalgia M54.2 [facility] [address] 09152- 9711 Feb, [facility] [address] 52217- 0153 Feb, [facility] [address] 82760 -7218 Feb, Cough R05 and Bronchitis J40 [facility] [place] [address] 02106 [address]5301 07 Feb, 2017 Acute nasopharyngitis J00 and Bronchitis J40 [facility] [address] 31479- 3377 06 Feb, 2017 Other chronic pain G89.29 and Generalized anxiety disorder F41.1 [facility] [address] 03497- 1605 Jan, Encounter for immunization Z23 [facility] [place] [address] 72228 -0044 Jan, [facility] [place] [address] 82428 -1692 18 Jan, 2017 [facility] [address] 21530- 7562 16 Jan, 2017 Canker sores oral K12.0 [facility] [address] 90397- 9069 14 Jan, 2017 [facility] [address] 95991- 7889 07 Jan, 2017 Other chronic pain G89.29 and Generalized anxiety disorder F41.1 [facility] [address] 29195- 3075 Jan, Cough R05 and Bronchitis J40 [facility] [address] 25707 [address]2015 Jan, Bronchitis J40 [facility] [address] 16773- 8902 Dec, Vitamin D deficiency E55.9 [facility] [address] 75955- 6960 Dec, DM (diabetes mellitus) with complications E11.8 [facility] [address] 19739- 1482 Dec, DM (diabetes mellitus) with complications E11.8 and Vitamin D deficiency E55.9 [facility] [address] 70902- 7839 Dec, DM (diabetes mellitus) with complications E11.8 ; Essential hypertension I10 ; Hyperlipidemia, unspecified hyperlipidemia type E78.5 ; Vitamin D deficiency E55.9 ; Gastroesophageal reflux disease, esophagitis presence not specified K21.9 ; 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 ; Other chronic pain G89.29 ; Encounter for immunization Z23 and Generalized anxiety disorder F41.1 [facility] [address] 81989- 9621 Nov, History of CVA with residual deficit I69.30 [facility] [address] 04381- 6083 Nov, DM (diabetes mellitus) with complications E11.8 [facility] [address] 93553- 1594 06 Nov, 2016 Left otitis media with effusion H65.92 ; Bronchitis J40 and Canker sores oral K12.0 [facility] [address] 05208- 4671 Oct, [facility] [address] 22917- 8562 04 Oct, 2016 DM (diabetes mellitus) with complications E11.8 [facility] [id number] [place] [address] 99230- 3645 02 Oct, 2016 [facility] [id number] [place] [address] 65251- 2739 17 Sep, 2016 DM (diabetes mellitus) with complications E11.8 [facility] [id number] [place] [address] 51206- 9869 11 Sep, 2016 DM (diabetes mellitus) with complications E11.8 ; Essential hypertension I10 ; Gastroesophageal reflux disease, esophagitis presence not specified K21.9 ; Hyperlipidemia, unspecified hyperlipidemia type E78.5 ; Tobacco abuse Z72.0 ; Vitamin D deficiency E55.9 ; History of CVA with residual deficit I69.30 and Seasonal allergic rhinitis due to pollen J30.1 [place] [id number] [place] [address] 28465- 6138 Sep, [facility] [id number] [place] [address] 09866- 6197 30 Aug, 2016 [facility] [id number] [place] [address] 84948 -1581 Aug, Dysuria R30.0 ; Acute cystitis with hematuria N30.01 and Middle ear effusion, right H65.91 [id number] [place] [address] 56134- 6619 Aug, Other complicated headache syndrome G44.59 [facility] [id number] [place] [address] 92219- 5136 19 Aug, 2016 DM (diabetes mellitus) with complications E11.8 [facility] [id number] [place] [address] 66917- 6480 14 Aug, 2016 Dysuria R30.0 [facility] [id number] [place] [address] 27770- 3314 12 Aug, 2016 Dysuria R30.0 [facility] [address] [place] [address]- 6265 Aug, [facility] [address] [place] [address] 25575- 6500 July, [facility] [address] [place] [address] 63144- 5797 July, [facility] [id number] [place] [address] 23717- 4846 July, DM (diabetes mellitus) with complications E11.8 [facility] [id number] [place] [address] 85846- 3761 July, Other complicated headache syndrome G44.59 [facility] [id number] [place] [address] 29478- 2519 July, [facility] [id number] [place] [address] 72748 -9340 July, Dysuria R30.0 and Acute cystitis with hematuria N30.01 [facility] [id number] [place] [address] 66288- 6992 July, [facility] [id number] [place] [address] 54827- 1475 July, Other complicated headache syndrome G44.59 [facility] [address] [place] [address] 50082 -0530 Jun, Exposure to strep throat Z20.818 and Acute upper respiratory infection, unspecified J06.9 [facility] [address], [place] [address]- 9139 Jun, [facility] [id number] [place] [address] 09383- 3403 Jun, DM (diabetes mellitus) with complications E11.8 and Gastroesophageal reflux disease, esophagitis presence not specified K21.9 [facility] [address] [place] [address] 78452- 7458 Jun, [facility] [id number] [place] [address] 09842- 2546 11 Jun, 2016 Dizziness R42 [facility] [id number] [place] [address] 78177 -9255 Jun, [facility] [id number] [place] [address] 53141- 1971 Jun, [facility] [address] 35851 -2670 May, Seasonal allergic rhinitis, unspecified allergic rhinitis trigger J30.2 [facility] [id number] [place] [address] 18643- 1453 May, [facility] [id number] [place] [address] 02586- 6992 May, DM (diabetes mellitus) with complications E11.8 [...] Seasonal allergic rhinitis due to pollen J30.1 [facility] [id number] [place] [address] 95654- 3876 May, Gastroesophageal reflux disease, esophagitis presence not specified K21.9 [facility] [id number] [place] [address] 62176- 5601 May, [facility] [id number] [place] [address] 13346- 7337 Apr, [facility] [id number] [place] [address] 42941- 2403 Apr, [facility] [id number] [place] [address] 85628- 2192 Mar, [facility] [id number] [place] [address] 12313- 8847 Mar, [facility] [address], [place] [address]- 3323 Mar, [facility] [address] [place] [address] 20030- 3002 Mar, [facility] [id number] [place] [address] 55485- 5871 Feb, [facility] [id number] [place] [address] 31325- 1014 Feb, [facility] [id number] [place] [address] 89845- 3541 Feb, [facility] [id number] [place] [address] 20570- 1283 Feb, Major depressive disorder, recurrent episode, moderate F33.1 ; Generalized anxiety disorder F41.1 ; Essential hypertension I10 ; DM ( diabetes mellitus) with complications E11.8 ; Hyperlipidemia, unspecified hyperlipidemia type E78.5 ; 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 and Gastroesophageal reflux disease, esophagitis presence not specified K21.9 [facility] [id number] [place] [address] 98191 -3091 Feb, Other viral agents as the cause of diseases classified elsewhere B97.89 and Acute upper respiratory infection, unspecified J06.9 [facility] [address] [place] [address] 44948- 6399 Jan, [facility] [id number] [place] [address] 63741- 0084 Jan, [facility] [address] [place] [address] 98835 -8002 Jan, Acute bronchitis, unspecified organism J20.9 [facility] [address] [place] [address] 44368- 8951 Jan, [facility] [id number] [place] [address] 46704- 7898 Jan, History of CVA with residual deficit I69.30 [facility] [address], [place] [address]- 0380 Jan, [facility] [address] [place] [address] 63675- 1479 Jan, Acute bronchitis, unspecified organism J20.9 [facility] [id number] [place] [address] 87848- 3999 Jan, [facility] [id number] [place] [address] 45502- 4737 Dec, History of CVA with residual deficit I69.30 [facility] [id number] [place] [address] 50933- 4432 Dec, [facility] [id number] [place] [address] 27000- 5628 Dec, Other chronic pain G89.29 ; DM (diabetes mellitus) with complications E11.8 and History of CVA with residual deficit I69.30 [facility] [address] [place] [address] 66030- 6489 Nov, Major depressive disorder, recurrent episode, moderate F33.1 ; Irregular heart rhythm I49.9 ; Essential hypertension I10 ; History of CVA with residual deficit I69.30 ; DM (diabetes mellitus) with complications E11.8 ; Gastroesophageal reflux disease, esophagitis presence not specified K21.9 ; Hyperlipidemia, unspecified hyperlipidemia type E78.5 ; 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 ; Other chronic pain G89.29 and Generalized anxiety disorder F41.1 [facility] [address], [place] [address]- 0903 Oct, Generalized anxiety disorder F41.1 ; Major depressive disorder, recurrent episode, moderate F33.1 ; Essential hypertension I10 ; History of CVA with residual deficit I69.30 ; DM (diabetes mellitus) with complications E11.8 ; Gastroesophageal reflux disease, esophagitis presence not specified K21.9 ; Hyperlipidemia, unspecified hyperlipidemia type E78.5 ; Other chronic pain G89.29 and Bacterial conjunctivitis of left eye H10.9 [address] [place] [address] 73318- 3960 Sep, Chronic pain syndrome G89.4 and DM (diabetes mellitus) with complications E11.8 [address] [id number] [place] [address] 37162- 6218 Sep, Irregular heart rhythm I49.9 ; Routine health maintenance Z00.00 ; Essential hypertension I10 ; History of CVA with residual deficit I69.30 ; Gastroesophageal reflux disease, esophagitis presence not specified K21.9 ; DM (diabetes mellitus) with complications E11.8 ; Hyperlipidemia, unspecified hyperlipidemia type E78.5 and Other complicated headache syndrome G44.59 [address] [id number] [place] [address] 62817- 7262 Jun, [place] [id number] [place] [address] 39024- 1718 Jun, [place] [id number] [place] [address] 55755- 2480 Aug, [place] [id number] [place] [address] 73292- 6006 Jun, IMMUNIZATIONS No Known Immunizations SOCIAL HISTORY Never Assessed REASON FOR VISIT PLAN OF CARE VITAL SIGNS MEDICATIONS No Known Medications RESULTS No Results PROCEDURES No Known procedures INSTRUCTIONS MEDICATIONS ADMINISTERED No Known Medications MEDICAL (GENERAL) HISTORY Type Description Date Medical History diabetes mellitus Medical History hyperlipidemia Medical History hypertension Medical History Anxiety disorder Medical History Blood Clotting Disorder- Dr Galvan at [facility] Medical History Possible Anemia (currently under work up) - Dr Galvan [facility] Medical History irregular heart beat-sees dr. hassan Medical History history of pancreatitis Medical History gerd Medical History History of CVA with residual deficit Medical History Other complicated headache syndrome Medical History Stokes syndrome Surgical History tubal ligation Surgical History section Surgical History cholecystectomy Surgical History Toe Nail Removal x2 Hospitalization History Brain Stem Strokes x5. Has been hospitalized at then transfered to [place]. 2014 Hospitalization History Child Hospitalization History abd pain and shakiness - [facility] visit [facility] Hospitalization History [facility] for URI 04/16/17 Hospitalization History via [facility] er 08/16/17
--- OUTSIDE RECORDS SUMMARY | 2017-11-04 16:39 | XMS REPORT ---
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 Active 62763359 Problem Tobacco abuse Z72.0 Active 302209408 Problem Other chronic pain G89.29 Active 93585497 Problem Chronic pain syndrome G89.4 Active 414366592 Problem Type 2 diabetes mellitus with hyperglycemia E11.65 Active 93616712 Problem Seasonal allergic rhinitis due to pollen J30.1 Active 32239943 Problem Tobacco abuse counseling Z71.6 Active 198003671 Problem retirement current use of insulin Z79.4 Active 149960277 Problem History of CVA with residual deficit I69.30 Active 896769097 Problem Vitamin D deficiency E55.9 Active 78178937 Problem Major depressive disorder, recurrent episode, moderate F33.1 Active 741605680 Problem 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 Active 419060132 Problem Hyperlipidemia, unspecified hyperlipidemia type E78.5 Active 62888445 Problem Elevated liver enzymes R74.8 Active 593253392 Problem Gastroesophageal reflux disease, esophagitis presence not specified K21.9 Active 798792431 Problem Generalized anxiety disorder F41.1 Active 44893750 Problem Essential hypertension I10 Active 60135145 ALLERGIES Substance Reaction Event Type Date Status Penicillin V Potassium Unknown Drug Allergy Jan, Active Erythromycin Base Unknown Drug Allergy Jan, Active Codeine Unknown Drug Allergy Jan, Active ENCOUNTERS Encounter Location Date Diagnosis [facility] [address] [facility] [id number] [address] July, [facility] [address] [facility] [id number] [address] July, [facility] [address] [place] [id number] [place] [address] 69057- 8925 July, Type 2 diabetes mellitus with hyperglycemia E11.65 ; 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.4 ; Elevated [...] pain syndrome G89.4 and Vaginal candidiasis B37.[address] [address]- [address] Jun, Generalized anxiety disorder F41.1 and Other chronic pain G89.[address] 8[address]- 4140 Jun, [place] [address] [id number] [place] [address] 30710- 7082 Jun, [address] [address]- 1925 Jun, Abnormal levels of other serum enzymes R74.8 [place] [id number] [place] [address] 41270- 7618 Jun, Abnormal levels of other serum enzymes R74.8 [place] [address] [place] [id number] [place] [address] 92049- 5943 Jun, Elevated liver enzymes R74.8 [place] [address] [place] [id number] [place] [address] 16903- 7000 Jun, Elevated liver enzymes R74.8 [place] [address] [id number] [place] [address] 75548- 2184 May, Right upper quadrant pain R10.11 ; Cervicalgia M54.2 and High risk medication use Z79.899 [place] [id number] [place] [address] 93454- 4889 May, Generalized anxiety disorder F41.1 and Other chronic pain G89.29 [facility] [address] [id number] [place] [address] 81052- 2660 May, Canker sores oral K12.0 [facility] [address] [id number] [place] [address] 75252- 1778 May, Generalized anxiety disorder F41.1 and Other chronic pain G89.29 [facility] [id number] [place] [address] 00621- 1887 May, [facility] [address] [id number] [place] [address] 62698- 4445 Apr, [facility] [id number] [place] [address] 32360 -4677 Apr, Acute cystitis with hematuria N30.01 and Dysuria R30.0 [facility] [id number] [place] [address] 03416- 9449 Apr, [facility] [id number] [place] [address] 29246- 9220 Apr, [facility] [address] [place] [address] 28047- 8592 Apr, 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 [facility] [id number] [place] [address] 78639- 4957 Apr, 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 [facility] [address] [place] [address] 55980- 6674 Apr, [facility] [address] [place] [id number] [place] [address] 98962- 5591 Apr, [facility] [id number] [place] [address] 66389- 0516 Apr, Other chronic pain G89.29 ; Generalized anxiety disorder F41.1 ; Cervicalgia M54.2 and Controlled substance agreement signed Z79.899 [facility] [address] [address] Mar, Abdominal pain R10.9 and Viral gastroenteritis A08.4 [place] [address] [id number] [place] [address] 70987- 0823 Mar, [place] [address] 34675- 0744 Mar, [place] [address] 26103- 5471 Mar, 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 ; Type 2 diabetes mellitus with hyperglycemia E11.65 ; retirement current use of insulin Z79.4 ; Essential hypertension I10 ; Bronchitis J40 ; Major depressive disorder , recurrent episode, moderate F33.1 ; Hyperlipidemia, unspecified hyperlipidemia type E78.5 ; Tobacco abuse Z72.0 ; Tobacco abuse counseling Z71.6 ; History of CVA with residual deficit I69.30 ; Gastroesophageal reflux disease, esophagitis presence not specified K21.9 and 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 [place] [address] 62228- 6093 Mar, [place] [address] [id number] [place] [address] 31810- 3260 Mar, 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 ; Abnormal lung sounds R09.89 ; Bronchitis J40 and Hyperlipidemia, unspecified hyperlipidemia type E78.5 [facility] [id number] [place] [address] 68126 -7581 Mar, URI, acute J06.9 [place] [address] 85358- 8995 Mar, [place] [address] 19849- 7219 Mar, 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 [place] [address] 71695- 2824 Mar, Other chronic pain G89.29 and Generalized anxiety disorder F41.1 [facility] [address] 62424- 9174 Feb, [place] [address] 34855- 5729 Feb, Mass of left lung R91.8 and Cervicalgia M54.2 [facility] [address] 19854- 7965 Feb, [place] [address] 42911- 7002 Feb, [facility] [place] [address] [address]8323 Feb, Cough R05 and Bronchitis J40 [facility] [address] [address] 07 Feb, 2017 Acute nasopharyngitis J00 and Bronchitis J40 [place] [address] 74032- 5380 Feb, Other chronic pain G89.29 and Generalized anxiety disorder F41.1 [place] [address] 14932- 7436 Jan, Encounter for immunization Z23 [facility] [address] [address] Jan, [facility] [address] 51481 [address]2268 Jan, [place] [address] 43695- 8238 16 Jan, 2017 Canker sores oral K12.0 [place] [address] 44727- 8528 14 Jan, 2017 [place] [address] 15283- 4084 07 Jan, 2017 Other chronic pain G89.29 and Generalized anxiety disorder F41.1 [place] [address] 73591- 2089 Jan, Cough R05 and Bronchitis J40 [facility] [address] 54735 -8690 Jan, Bronchitis J40 [place] [address] 42524- 5455 Dec, Vitamin D deficiency E55.[address] 80021- 6712 Dec, DM (diabetes mellitus) with complications E11.[address] 55946- 0542 Dec, 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 and Vitamin D deficiency E55.9 [place] [address] 14649- 5656 Dec, 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 ; Essential hypertension I10 ; Hyperlipidemia, unspecified hyperlipidemia type E78.5 ; Vitamin D deficiency E55.9 ; Gastroesophageal reflux disease, esophagitis presence not specified K21.9 ; 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 ; Other chronic pain G89.29 ; Encounter for immunization Z23 and Generalized anxiety disorder F41.1 [place] [address] 24193- 0088 Nov, History of CVA with residual deficit I69.[address] 28434- 5949 11 Nov, 2016 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 [place] [address] 38421- 3876 06 Nov, 2016 Left otitis media with effusion H65.92 ; Bronchitis J40 and Canker sores oral K12.0 [address] [place] [address] 14 Oct, 2016 [facility] [address] [id number] [place] [address] 15431- 7469 Oct, 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 [place] [address] [place] [id number] [place] [address] 30293- 6780 Oct, [place] [address] 62376- 2560 Sep, 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 [place] [address] [id number] [place] [address] 58874- 8261 Sep, 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 ; Essential hypertension I10 ; Gastroesophageal reflux disease, esophagitis presence not specified K21.9 ; Hyperlipidemia, unspecified hyperlipidemia type E78.5 ; Tobacco abuse Z72.0 ; Vitamin D deficiency E55.9 ; History of CVA with residual deficit I69.30 and Seasonal allergic rhinitis due to pollen J30.1 [place] [address] [id number] [place] [address] 70787- 6177 Sep, [place] [address] 39769- 6268 Aug, [facility] [address] [id number] [place] [address] 93942 -2123 Aug, Dysuria R30.0 ; Acute cystitis with hematuria N30.01 and Middle ear effusion, right H65.91 [place] [address] [id number] [place] [address] 86213- 0620 Aug, Other complicated headache syndrome G44.59 [place] [address] 81094- 1851 19 Aug, 2016 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 [place] [address] [id number] [place] [address] 61337- 4933 14 Aug, 2016 Dysuria R30.0 [place] [address] [place] [address]- 0773 Aug, Dysuria R30.0 [facility] [id number] [place] [address] 63066- 2175 Aug, [facility] [address] [id number] [place] [address] 55275- 7134 July, [facility] [address] [place] [id number] [place] [address] 17995- 5518 July, [facility] [id number] [place] [address] 24680- 2503 July, 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 [place] [address] [id number] [place] [address] 89264- 8521 July, Other complicated headache syndrome G44.59 [place] [address] [place] [id number] [place] [address] 43169- 9328 July, [facility] [id number] [place] [address] 24959 -3295 July, Dysuria R30.0 and Acute cystitis with hematuria N30.01 [facility] [address] [place] [id number] [place] [address] 10827- 4311 July, [facility] [id number] [place] [address] 93429- 8426 July, Other complicated headache syndrome G44.59 [facility] [address] [place] [address] 40781 -2167 Jun, Exposure to strep throat Z20.818 and Acute upper respiratory infection, unspecified J06.9 [facility] [id number] [place] [address] 31190- 1556 Jun, [facility] [address] [place] [address] 73141- 7874 Jun, 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 and Gastroesophageal reflux disease, esophagitis presence not specified K21.9 [facility] [address] [address]- 5112 Jun, [facility] [address] [id number] [place] [address] 83992- 3511 Jun, Dizziness R42 [facility] [address] [id number] [place] [address] 87776 -7137 Jun, [facility] [address] [id number] [place] [address] 88125- 9305 Jun, [facility] [id number] [place] [address] 72019 -7414 May, Seasonal allergic rhinitis, unspecified allergic rhinitis trigger J30.2 [facility] [id number] [place] [address] 86231- 2544 May, [facility] [address] [place] [id number] [place] [address] 74616- 8137 May, 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 [...] Seasonal allergic rhinitis due to pollen J30.1 [facility] [id number] [place] [address] 45253- 0013 May, Gastroesophageal reflux disease, esophagitis presence not specified K21.9 [facility] [id number] [place] [address] 36066- 4831 May, [facility] [address] [place] [id number] [place] [address] 52628- 1006 Apr, [facility] [address] [id number] [place] [address] 26051- 7228 Apr, [facility] [address] [place] [address]- 2863 Mar, [facility] [address] [place] [address] 87347- 9760 Mar, [facility] [address] [place] [address] 57253- 3471 Mar, [facility] [id number] [place] [address] 66711- 8803 Mar, [facility] [address] [id number] [place] [address] 78597- 5514 Feb, [facility] [address] [place] [id number] [place] [address] 24288- 2887 Feb, [facility] [address] [id number] [place] [address] 23272- 8216 Feb, [facility] [address] [place] [id number] [place] [address] 87637- 2487 Feb, Major depressive disorder, recurrent episode, moderate F33.1 ; Generalized anxiety disorder F41.1 ; Essential hypertension I10 ; DM ( diabetes mellitus) with complications E11.8 ; Hyperlipidemia, unspecified hyperlipidemia type E78.5 ; 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 and Gastroesophageal reflux disease, esophagitis presence not specified K21.9 [facility] [address] [place] [address] 94924 -7797 Feb, Other viral agents as the cause of diseases classified elsewhere B97.89 and Acute upper respiratory infection, unspecified J06.9 [facility] [address] [address]- 3878 Jan, [facility] [address] [place] [address] 43340- 7549 Jan, [facility] [address] [address] 14 Jan, 2016 Acute bronchitis, unspecified organism J20.9 [facility] [id number] [place] [address] 55211- 3411 Jan, [place] [address] [place] [address] 42289- 6504 Jan, History of CVA with residual deficit I69.30 [place] [address] [id number] [place] [address] 04861- 2098 Jan, [place] [address] [place] [id number] [place] [address] 86695- 5101 Jan, Acute bronchitis, unspecified organism J20.9 [place] [address] [place] [id number] [place] [address] 32088- 0840 Jan, [place] [address] 14145- 2401 Dec, History of CVA with residual deficit I69.30 [place] [address] [place] [id number] [place] [address] 83727- 0332 Dec, [place] [address] [place] [id number] [place] [address] 62331- 4331 Dec, Other chronic pain G89.29 ; 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 and History of CVA with residual deficit I69.30 [place] [address] [place] [address] 18030- 9311 Nov, Major depressive disorder, recurrent episode, moderate F33.1 ; Irregular heart rhythm I49.9 ; Essential hypertension I10 ; History of CVA with residual deficit I69.30 ; 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 ; Gastroesophageal reflux disease, esophagitis presence not specified K21.9 ; Hyperlipidemia, unspecified hyperlipidemia type E78.5 ; 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 ; Other chronic pain G89.29 and Generalized anxiety disorder F41.1 [place] [address] [place] [address] 02393- 4286 Oct, Generalized anxiety disorder F41.1 ; Major depressive disorder, recurrent episode, moderate F33.1 ; Essential hypertension I10 ; History of CVA with residual deficit I69.30 ; 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 ; Gastroesophageal reflux disease, esophagitis presence not specified K21.9 ; Hyperlipidemia, unspecified hyperlipidemia type E78.5 ; Other chronic pain G89.29 and Bacterial conjunctivitis of left eye H10.9 [place] [address] [place] [address] 50612- 3046 Sep, Chronic pain syndrome G89.4 and 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 [place] [address] 74735- 0542 Sep, Irregular heart rhythm I49.9 ; Routine health maintenance Z00.00 ; Essential hypertension I10 ; History of CVA with residual deficit I69.30 ; Gastroesophageal reflux disease, esophagitis presence not specified K21.9 ; 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 ; Hyperlipidemia, unspecified hyperlipidemia type E78.5 and Other complicated headache syndrome G44.[address] 20603- 3814 Jun, [place] [address] 69445- 1650 Jun, [place] [address] 02907- 7458 Aug, [place] [address] 39060- 6417 Jun, IMMUNIZATIONS No Known Immunizations SOCIAL HISTORY Never Assessed REASON FOR VISIT Cough- has been sick with cough for three weeks, states she was dx on Tuesday with bronchitis, was given neb tx and prednisone, pt states she is now worsening and not improving-[facility] PLAN OF CARE Activity Details Follow Up prn, 3 Months Reason: VITAL SIGNS Height 62 in 2017-01-24 Weight 203.0 lbs 2017-01-24 Temperature 97.9 degrees Fahrenheit 2017-01-24 Heart Rate 84 bpm 2017-01-24 Respiratory Rate 20 2017-01-24 BMI 37.13 kg/m2 2017-01-24 Blood pressure systolic 130 mmHg 2017-01-24 Blood pressure diastolic 82 mmHg 2017-01-24 MEDICATIONS Medication Instructions Dosage Frequency Start Date End Date Duration Status Lancets - Active Metoprolol Tartrate 25 MG Orally Twice a day 1 tablet with food 12h 90 days Active Hydrocodone-Acetaminophen 10-325 MG Orally every 6 hrs 1 tablet as needed 6h Dec, 28 days Active Atorvastatin Calcium 80 MG Orally Once a day 1 tablet 24h 90 days Active Levemir Flexpen 100 UNIT/ML Subcutaneous at hs 25 units 90 days Active Pen [place] 31G X 5 MM subcutaneously Once a day as directed 24h Jan, 90 days Active CorneliaAlbertdonaldo Tariq Lancets 33G 33 TEST BLOOD SUGAR THREE TIMES A DAY E11.8 30 Active Onglyza 5 mg Orally Once a day 1 tablet 24h 20 Dec, 2016 90 days Active Walker - as directed Jan, Active Triamcinolone Acetonide 0.1 % oral lesion twice a day 1 application at bedtime 12h Nov, 07 days Active Test strips 8h Active Bath/Shower Seat 1 please provide one adult shower seat for patient use one time shower/bath seat for bathing 18 Dec, 2015 Active MetFORMIN HCl ER 750 MG Orally twice a day 1 tablet 12h 90 days Active Hydrochlorothiazide 25 MG Orally Once a day 1 tablet 24h 90 days Active Fluticasone Propionate 50 MCG/ACT Nasally Once a day 1 spray in each nostril 24h Feb, 30 day(s) Active Plavix 75 MG Orally Once a day 1 tablet 24h 90 days Active ProAir HFA 108 (90 Base) MCG/ACT Inhalation every 4 hrs prn 2 puffs as needed Nov, Active ProAir HFA 108 (90 Base) MCG/ACT Inhalation every 6 hrs 2 puffs as needed 6h Jan, 7 days Active ASA Oral Once a day 1 tab 24h 90 days Active Pantoprazole Sodium 20 mg Orally 2 times a day 1 tablets 12h May, 90 days Active Carafate 1 GM Orally Twice a day 1 tablet on an empty stomach 12h May, 30 days Active Naproxen 500 mg Orally bid prn 1 tablet Sep, 90 days Active Xanax 1 MG Orally 4 times a day 1 tablet 6h 28 days Active Canagliflozin 100 mg Orally Once a day 1 tablet 24h 10 Dec, 2016 8 Mar, 2017 30 day(s) Active Fenofibrate 54 Orally Once a day 1 tablet with a meal 24h 90 Active PredniSONE 20 MG Orally Once a day 2 tablet 24h Jan, Jan, 5 days Active Diltiazem HCl ER 120 MG Orally Once a day 1 capsule on an empty stomach in the morning 24h 90 days Active One Touch/One Touch II Starter 1 glucometer subcutaneously 3 times a day to take blood sugars daily Dispense as insurance allows 8h Sep, Active Tessalon Perles 100 mg Orally Three times a day 1 capsule as needed 8h Jan, Jan, 14 days Active RESULTS No Results PROCEDURES Procedure Date Ordered Result Body Site [facility] VISIT ESTABLISHED PATIENT Jan 24, 2017 INSTRUCTIONS MEDICATIONS ADMINISTERED No Known Medications MEDICAL (GENERAL) HISTORY Type Description Date Medical History diabetes mellitus Medical History hyperlipidemia Medical History hypertension Medical History stroke Medical History Anxiety disorder Medical History Panic attacks Medical History Blood Clotting Disorder- Dr Galvan at [facility] Medical History Possible Anemia (currently under work up) - Dr Galvan [facility] Medical History irregular heart beat-sees dr. hassan Medical History history of pancreatitis Medical History gerd Medical History History of CVA with residual deficit Medical History Other complicated headache syndrome Medical History Stokes syndrome Surgical History tubal ligation Surgical History section Surgical History cholecystectomy Surgical History Toe Nail Removal x2 Hospitalization History Brain Stem Strokes x5. Has been hospitalized at then transfered to [place]. 2014 Hospitalization History Child Hospitalization History abd pain and shakiness - [facility] ED visit [facility] Hospitalization History [facility] ED for URI 04/16/17
--- OUTSIDE RECORDS SUMMARY | 2017-11-04 16:40 | XMS REPORT ---
Author Author HUIZARMICHAEL CoxELE Organization [facility] Address [address] [place] [address] Care Team Providers Care Mothers Helper Name Role Phone HUIZARSOTERO Cox Unavailable PROBLEMS Type Condition ICD9-CM Code RIJ78-QG Code Onset Dates Condition Status SNOMED Code Problem Other chronic pain G89.29 Active 87702860 Problem Tobacco abuse counseling Z71.6 Active 446325574 Problem Tobacco abuse Z72.0 Active 620055923 Problem Acute non intractable tension-type headache G44.209 Active 512638513 Problem Chronic pain syndrome G89.4 Active 291413581 Problem History of CVA with residual deficit I69.30 Active 446004396 Problem Seasonal allergic rhinitis due to pollen J30.1 Active 17425101 Problem Type 2 diabetes mellitus with hyperglycemia E11.65 Active 70590161 Problem penitentiary current use of insulin Z79.4 Active 686141800 Problem Major depressive disorder, recurrent episode, moderate F33.1 Active 196443527 Problem Elevated liver enzymes R74.8 Active 661736458 Problem Vitamin D deficiency E55.9 Active 88880423 Problem Gastroesophageal reflux disease, esophagitis presence not specified K21.9 Active 705181977 Problem Essential hypertension I10 Active 74464628 Problem Generalized anxiety disorder F41.1 Active 33318506 Problem Hyperlipidemia, unspecified hyperlipidemia type E78.5 Active 44606364 Problem 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 Active 241929504 Problem 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 Active 10274188 ALLERGIES No Information ENCOUNTERS Encounter Location Date Diagnosis [facility] [id number] [place] [address] 76806- 1551 Sep, Generalized anxiety disorder F41.1 and Chronic pain syndrome G89.4 [facility] [address] [address] Aug, Dysuria R30.0 [facility] [id number] [place] [address] 02406- 5827 18 Aug, 2017 Generalized anxiety disorder F41.1 ; Chronic pain syndrome G89.4 and Dysuria R30.0 [facility] [id number] [place] [address] 45759- 8399 Aug, Acute cystitis with hematuria N30.01 and Candidal dermatitis B37.2 [facility] [address] 16710- 0554 Aug, Dysuria R30.0 [facility] [address] 47880- 9580 Aug, [facility] [id number] [place] [address] 54448 -5165 Aug, Dysuria R30.0 [facility] [id number] [place] [address] 75816- 5741 Aug, [facility] [id number] [place] [address] 05788- 9427 July, Cervicalgia M54.2 ; Acute non intractable tension-type headache G44.209 ; Type 2 diabetes mellitus with hyperglycemia E11.65 and 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65 ; penitentiary current use of insulin Z79.4 ; Elevated [...] pain syndrome G89.4 and Vaginal candidiasis B37.3 [facility] [address] 04184- 8957 Jun, Generalized anxiety disorder F41.1 and Other chronic pain G89.29 [facility] [address] 81987- 3023 Jun, [facility] [address] 39496- 8353 Jun, [facility] [address] 28643- 5508 Jun, Abnormal levels of other serum enzymes R74.8 [facility] [address] 24745- 6446 Jun, Abnormal levels of other serum enzymes R74.8 [facility] [address] 50103- 2273 Jun, Elevated liver enzymes R74.8 [facility] [address] 64958- 3028 Jun, Elevated liver enzymes R74.8 [facility] [address] 09546- 2331 May, Right upper quadrant pain R10.11 ; Cervicalgia M54.2 and High risk medication use Z79.899 [facility] [address] 13936- 9146 May, Generalized anxiety disorder F41.1 and Other chronic pain G89.29 [facility] [id number] [place] [address] 00398- 9500 May, Canker sores oral K12.0 [facility] [id number] [place] [address] 73724- 0665 May, Generalized anxiety disorder F41.1 and Other chronic pain G89.29 [facility] [id number] [place] [address] 53202- 4631 May, [facility] [id number] [place] [address] 25509- 2996 Apr, [facility] [id number] [place] [address] 72875 -7736 Apr, Acute cystitis with hematuria N30.01 and Dysuria R30.0 [facility] [id number] [place] [address] 50678- 5794 Apr, [facility] [id number] [place] [address] 82731- 4578 Apr, [facility] [id number] [place] [address] 70876- 0780 Apr, DM (diabetes mellitus) with complications E11.8 [facility] [id number] [place] [address] 78203- 9627 06 Apr, 2017 DM (diabetes mellitus) with complications E11.8 [facility] [id number] [place] [address] 17218- 3625 Apr, [facility] [id number] [place] [address] 78418- 9284 Apr, [facility] [id number] [place] [address] 57108- 7398 Apr, Other chronic pain G89.29 ; Generalized anxiety disorder F41.1 ; Cervicalgia M54.2 and Controlled substance agreement signed Z79.899 [facility] [id number] [place] [address] 57564 -6235 Mar, Abdominal pain R10.9 and Viral gastroenteritis A08.4 [facility] [address] 77692- 7378 Mar, [facility] [address] 96015- 7804 Mar, [facility] [address] 55142- 6404 Mar, DM (diabetes mellitus) with complications E11.8 ; Type 2 diabetes mellitus with hyperglycemia E11.65 ; penitentiary current use of insulin Z79.4 ; Essential hypertension I10 ; Bronchitis J40 ; Major depressive disorder , recurrent episode, moderate F33.1 ; Hyperlipidemia, unspecified hyperlipidemia type E78.5 ; Tobacco abuse Z72.0 ; Tobacco abuse counseling Z71.6 ; History of CVA with residual deficit I69.30 ; Gastroesophageal reflux disease, esophagitis presence not specified K21.9 and 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 [facility] [id number] [place] [address] 21166- 3870 Mar, [address] 45307- 0630 Mar, 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 ; Abnormal lung sounds R09.89 ; Bronchitis J40 and Hyperlipidemia, unspecified hyperlipidemia type E78.5 [facility] [id number] [place] [address] 44063 -4316 Mar, URI, acute J06.9 [facility] [id number] [place] [address] 88291- 0650 Mar, [address] 42260- 3053 Mar, DM (diabetes mellitus) with complications E11.8 [facility] [address] 98836- 8541 Mar, Other chronic pain G89.29 and Generalized anxiety disorder F41.1 [facility] [id number] [place] [address] 74233- 9437 Feb, [facility] [address] 44130- 1658 Feb, Mass of left lung R91.8 and Cervicalgia M54.2 [facility] [address] 16630- 6646 Feb, [facility] [address] 85724- 6877 Feb, [facility] [address] 85879 -2016 Feb, Cough R05 and Bronchitis J40 [facility] [address] 24449 -9865 07 Feb, 2017 Acute nasopharyngitis J00 and Bronchitis J40 [facility] [address] 28876- 4395 06 Feb, 2017 Other chronic pain G89.29 and Generalized anxiety disorder F41.1 [facility] [address] 50227- 2739 Jan, Encounter for immunization Z23 [facility] [address] 51360 -0356 Jan, [facility] [address] 23240 -1678 18 Jan, 2017 [facility] [address] 49939- 2491 16 Jan, 2017 Canker sores oral K12.0 [facility] [address] 64678- 0079 14 Jan, 2017 [facility] [address] 42537- 1673 07 Jan, 2017 Other chronic pain G89.29 and Generalized anxiety disorder F41.1 [facility] [id number] [place] [address] 03163- 5526 Jan, Cough R05 and Bronchitis J40 [facility] [address] 24751 -0492 Jan, Bronchitis J40 [facility] [address] 37874- 2371 Dec, Vitamin D deficiency E55.9 [facility] [address] 13955- 2565 Dec, DM (diabetes mellitus) with complications E11.8 [facility] [address] 98372- 8241 Dec, DM (diabetes mellitus) with complications E11.8 and Vitamin D deficiency E55.9 [facility] [address] 34242- 1287 Dec, DM (diabetes mellitus) with complications E11.8 ; Essential hypertension I10 ; Hyperlipidemia, unspecified hyperlipidemia type E78.5 ; Vitamin D deficiency E55.9 ; Gastroesophageal reflux disease, esophagitis presence not specified K21.9 ; 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 ; Other chronic pain G89.29 ; Encounter for immunization Z23 and Generalized anxiety disorder F41.1 [facility] [address] 67778- 9119 Nov, History of CVA with residual deficit I69.30 [facility] [address] 79986- 1650 Nov, DM (diabetes mellitus) with complications E11.8 [facility] [address] 51729- 2378 06 Nov, 2016 Left otitis media with effusion H65.92 ; Bronchitis J40 and Canker sores oral K12.0 [facility] [address] 21888- 0138 Oct, [facility] [address] [place] [address]- 9715 04 Oct, 2016 DM (diabetes mellitus) with complications E11.8 [facility] [address] 23380- 9846 02 Oct, 2016 [facility] [id number] [place] [address] 29926- 0848 Sep, DM (diabetes mellitus) with complications E11.8 [facility] [address] 65863- 1017 11 Sep, 2016 DM (diabetes mellitus) with complications E11.8 ; Essential hypertension I10 ; Gastroesophageal reflux disease, esophagitis presence not specified K21.9 ; Hyperlipidemia, unspecified hyperlipidemia type E78.5 ; Tobacco abuse Z72.0 ; Vitamin D deficiency E55.9 ; History of CVA with residual deficit I69.30 and Seasonal allergic rhinitis due to pollen J30.1 [facility] [address] 14457- 5736 Sep, [facility] [address] 88276- 2091 30 Aug, 2016 [facility] [address] 23254 -5069 Aug, Dysuria R30.0 ; Acute cystitis with hematuria N30.01 and Middle ear effusion, right H65.91 [place] [id number] [place] [address] 27117- 4569 Aug, Other complicated headache syndrome G44.59 [facility] [id number] [place] [address] 69817- 3700 19 Aug, 2016 DM (diabetes mellitus) with complications E11.8 [facility] [address] 90999- 2701 14 Aug, 2016 Dysuria R30.0 [facility] [id number] [place] [address] 61657- 5453 12 Aug, 2016 Dysuria R30.0 [facility] [address], [place] [address]- 5465 Aug, [facility] [address] [place] [address] 62545- 0462 July, [facility] [id number] [place] [address] 83836- 5657 July, [facility] [id number] [place] [address] 61872- 3575 July, DM (diabetes mellitus) with complications E11.8 [facility] [id number] [place] [address] 21218- 6268 July, Other complicated headache syndrome G44.59 [facility] [id number] [place] [address] 41126- 3084 July, [facility] [id number] [place] [address] 54321 -8294 July, Dysuria R30.0 and Acute cystitis with hematuria N30.01 [facility] [address] [place] [address] 54465- 8237 July, [facility] [id number] [place] [address] 03366- 3169 July, Other complicated headache syndrome G44.59 [facility] [address], [place] [address]98 Jun, Exposure to strep throat Z20.818 and Acute upper respiratory infection, unspecified J06.9 [facility] [address] [place] [address] 22979- 4286 Jun, [facility] [id number] [place] [address] 65529- 0571 Jun, DM (diabetes mellitus) with complications E11.8 and Gastroesophageal reflux disease, esophagitis presence not specified K21.9 [facility] [address] [place] [address] 23543- 3970 Jun, [facility] [id number] [place] [address] 91018- 9921 Jun, Dizziness R42 [facility] [id number] [place] [address] 41834 -3552 Jun, [facility] [id number] [place] [address] 18872- 7826 Jun, [facility] [address] 87075 -7709 May, Seasonal allergic rhinitis, unspecified allergic rhinitis trigger J30.2 [facility] [address] 47941- 9346 May, [facility] [address] 21382- 5011 May, DM (diabetes mellitus) with complications E11.8 [...] Seasonal allergic rhinitis due to pollen J30.1 [facility] [id number] [place] [address] 20029- 6600 May, Gastroesophageal reflux disease, esophagitis presence not specified K21.9 [facility] [id number] [place] [address] 42578- 0302 May, [facility] [id number] [place] [address] 46693- 2347 Apr, [facility] [id number] [place] [address] 22504- 6011 Apr, [facility] [id number] [place] [address] 43640- 2513 Mar, [facility] [id number] [place] [address] 24685- 1607 Mar, [facility] [id number] [place] [address] 03185- 8465 Mar, [facility] [id number] [place] [address] 52875- 8915 Mar, [facility] [id number] [place] [address] 21158- 8879 Feb, [facility] [address] 03840- 8355 Feb, [facility] [id number] [place] [address] 81193- 5863 Feb, [facility] [id number] [place] [address] 69696- 6954 Feb, Major depressive disorder, recurrent episode, moderate F33.1 ; Generalized anxiety disorder F41.1 ; Essential hypertension I10 ; DM ( diabetes mellitus) with complications E11.8 ; Hyperlipidemia, unspecified hyperlipidemia type E78.5 ; 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 and Gastroesophageal reflux disease, esophagitis presence not specified K21.9 [facility] [id number] [place] [address] 57549 -0788 Feb, Other viral agents as the cause of diseases classified elsewhere B97.89 and Acute upper respiratory infection, unspecified J06.9 [facility] [id number] [place] [address] 45391- 5098 Jan, [facility] [id number] [place] [address] 46939- 5198 Jan, [facility] [id number] [place] [address] 80077 -5644 Jan, Acute bronchitis, unspecified organism J20.9 [facility] [id number] [place] [address] 45644- 3812 Jan, [facility] [id number] [place] [address] 66168- 7000 Jan, History of CVA with residual deficit I69.30 [facility] [address] [place] [address] 87863- 5146 Jan, [facility] [id number] [place] [address] 14210- 4745 Jan, Acute bronchitis, unspecified organism J20.9 [facility] [id number] [place] [address] 80140- 6985 Jan, [facility] [id number] [place] [address] 39502- 7948 Dec, History of CVA with residual deficit I69.30 [facility] [id number] [place] [address] 95433- 9901 Dec, [facility] [id number] [place] [address] 72219- 4232 Dec, Other chronic pain G89.29 ; 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 and History of CVA with residual deficit I69.30 [facility] [place] [address] [place] [address] 75128- 2275 Nov, Major depressive disorder, recurrent episode, moderate F33.1 ; Irregular heart rhythm I49.9 ; Essential hypertension I10 ; History of CVA with residual deficit I69.30 ; 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 ; Gastroesophageal reflux disease, esophagitis presence not specified K21.9 ; Hyperlipidemia, unspecified hyperlipidemia type E78.5 ; 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 ; Other chronic pain G89.29 and Generalized anxiety disorder F41.1 [place] [address] [place] [address] 77708- 5189 Oct, Generalized anxiety disorder F41.1 ; Major depressive disorder, recurrent episode, moderate F33.1 ; Essential hypertension I10 ; History of CVA with residual deficit I69.30 ; DM (diabetes mellitus) with complications E11.8 ; Gastroesophageal reflux disease, esophagitis presence not specified K21.9 ; Hyperlipidemia, unspecified hyperlipidemia type E78.5 ; Other chronic pain G89.29 and Bacterial conjunctivitis of left eye H10.9 [place] [id number] [place] [address] 98609- 1649 Sep, Chronic pain syndrome G89.4 and DM (diabetes mellitus) with complications E11.8 [place] [id number] [place] [address] 20166- 2021 Sep, Irregular heart rhythm I49.9 ; Routine health maintenance Z00.00 ; Essential hypertension I10 ; History of CVA with residual deficit I69.30 ; Gastroesophageal reflux disease, esophagitis presence not specified K21.9 ; DM (diabetes mellitus) with complications E11.8 ; Hyperlipidemia, unspecified hyperlipidemia type E78.5 and Other complicated headache syndrome G44.59 [place] [id number] [place] [address] 37401- 1778 14 Jun, [address] 61547- 3727 Jun, [address] 29498- 8903 Aug, [place] [id number] [place] [address] 15330- 9251 Jun, IMMUNIZATIONS No Known Immunizations SOCIAL HISTORY Never Assessed REASON FOR VISIT Medication question PLAN OF CARE VITAL SIGNS MEDICATIONS No Known Medications RESULTS No Results PROCEDURES No Known procedures INSTRUCTIONS MEDICATIONS ADMINISTERED No Known Medications MEDICAL (GENERAL) HISTORY Type Description Date Medical History diabetes mellitus Medical History hyperlipidemia Medical History hypertension Medical History Anxiety disorder Medical History Blood Clotting Disorder- Dr Galvan at [facility] Medical History Possible Anemia (currently under work up) - Dr Galvan [facility] Medical History irregular heart beat-sees dr. hassan Medical History history of pancreatitis Medical History gerd Medical History History of CVA with residual deficit Medical History Other complicated headache syndrome Medical History Stokes syndrome Surgical History tubal ligation Surgical History section Surgical History cholecystectomy Surgical History Toe Nail Removal x2 Hospitalization History Brain Stem Strokes x5. Has been hospitalized at then transfered to [facility]. 2014 Hospitalization History Child Hospitalization History abd pain and shakiness - [facility] ED visit [facility] Hospitalization History [facility] ED for URI 04/16/17 Hospitalization History via [facility] [place] [facility] 08/16/17
--- OUTSIDE RECORDS SUMMARY | 2017-11-04 16:41 | XMS REPORT ---
Author Author HUIZARSOTERO Cox Organization 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 Active 96779351 Problem Tobacco abuse Z72.0 Active 427223750 Problem Other chronic pain G89.29 Active 19935226 Problem Chronic pain syndrome G89.4 Active 320478983 Problem Type 2 diabetes mellitus with hyperglycemia E11.65 Active 59540599 Problem Seasonal allergic rhinitis due to pollen J30.1 Active 39178147 Problem Tobacco abuse counseling Z71.6 Active 786183644 Problem half-way current use of insulin Z79.4 Active 931489873 Problem History of CVA with residual deficit I69.30 Active 841571094 Problem Vitamin D deficiency E55.9 Active 94320775 Problem Major depressive disorder, recurrent episode, moderate F33.1 Active 930265274 Problem 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 Active 549066185 Problem Hyperlipidemia, unspecified hyperlipidemia type E78.5 Active 79878968 Problem Elevated liver enzymes R74.8 Active 044518156 Problem Gastroesophageal reflux disease, esophagitis presence not specified K21.9 Active 473661822 Problem Generalized anxiety disorder F41.1 Active 94681825 Problem Essential hypertension I10 Active 64226842 ALLERGIES No Information ENCOUNTERS Encounter Location Date Diagnosis [facility] [id number], [place] [address] July, Generalized anxiety disorder F41.1 and Chronic pain syndrome G89.4 [facility] [address], [place] [address] July, [address]02.[address] [facility] [id number], [place] [address] July, [place] [id number] [place] [address] 60183- 1070 July, [place] [address] [address]- [address]591 July, Type 2 diabetes mellitus with hyperglycemia E11.65 ; inoculator current use of insulin Z79.4 ; Elevated [...] G89.4 and Vaginal candidiasis B37.3 [place] [address] [address]- 2196 Jun, Generalized anxiety disorder F41.1 and Other chronic pain G89.29 [place] [id number] [place] [address] 06769- 9443 Jun, [place] [id number] [place] [address] 94667- 7783 Jun, [place] [id number] [place] [address] 28142- 1845 Jun, Abnormal levels of other serum enzymes R74.8 [place] [id number] [place] [address] 27906- 0483 Jun, Abnormal levels of other serum enzymes R74.8 [place] [id number] [place] [address] 24754- 5378 Jun, Elevated liver enzymes R74.8 [place] [id number] [place] [address] 05336- 0596 Jun, Elevated liver enzymes R74.8 [place] [id number] [place] [address] 03581- 7104 May, Right upper quadrant pain R10.11 ; Cervicalgia M54.2 and High risk medication use Z79.899 [facility] [id number] [place] [address] 61912- 5548 May, Generalized anxiety disorder F41.1 and Other chronic pain G89.29 [facility] [address] [address]- 1721 May, Canker sores oral K12.0 [facility] [address] 6[address]- 7818 May, Generalized anxiety disorder F41.1 and Other chronic pain G89.29 [facility] [address] [address]- [address] May, [facility] [address] [address]98- 3186 Apr, [facility] [id number] [place] [address] 18150 -2133 Apr, Acute cystitis with hematuria N30.[address] [facility] [id number] [place] [address] 23616- 1888 Apr, [facility] [id number] [place] [address] 02402- 0189 Apr, 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 [id number] [place] [address] 40317- 6518 Apr, [facility] [address] 58137- 7000 Apr, [place] [id number] [place] [address] 73079- 8621 Apr, Other chronic pain G89.29 ; Generalized anxiety disorder F41.1 ; Cervicalgia M54.2 and Controlled substance agreement signed Z79.899 [facility] [id number] [place] [address] 30539 -5968 Mar, Abdominal pain R10.9 and Viral gastroenteritis A08.4 [place] [address] 11399- 5025 Mar, [place] [address] 53058- 2723 Mar, [place] [id number] [place] [address] 32496- 7682 Mar, 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 ; Type 2 diabetes mellitus with hyperglycemia E11.65 ; inoculator current use of insulin Z79.4 ; Essential hypertension I10 ; Bronchitis J40 ; Major depressive disorder , recurrent episode, moderate F33.1 ; Hyperlipidemia, unspecified hyperlipidemia type E78.5 ; Tobacco abuse Z72.0 ; Tobacco abuse counseling Z71.6 ; History of CVA with residual deficit I69.30 ; Gastroesophageal reflux disease, esophagitis presence not specified K21.9 and 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 [place] [id number] [place] [address] 65139- 1759 Mar, [place] [id number] [place] [address] 47748- 5814 Mar, 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 ; Abnormal lung sounds R09.89 ; Bronchitis J40 and Hyperlipidemia, unspecified hyperlipidemia type E78.5 [facility] [id number] [place] [address] 09946 -2877 Mar, URI, acute J06.9 [address] [id number] [place] [address] 19437- 0940 Mar, [place] [address] 06164- 2529 Mar, 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 [place] [address] 85751- 2811 Mar, Other chronic pain G89.29 and Generalized anxiety disorder F41.[address] 03262- 3173 Feb, [place] [address] 83962- 0456 Feb, Mass of left lung R91.8 and Cervicalgia M54.[address] 84674- 4611 Feb, [place] [address] 91890- 6530 Feb, [facility] [address] [place] [address] 94118 -0661 Feb, Cough R05 and Bronchitis J40 [facility] [address] [address] -[address] 07 Feb, 2017 Acute nasopharyngitis J00 and Bronchitis J40 [place] [address] 90665- 7927 06 Feb, 2017 Other chronic pain G89.29 and Generalized anxiety disorder F41.1 [place] [address] 09734- 3208 Jan, Encounter for immunization Z23 [facility] [address] [place] [address] 82383 -5862 Jan, [facility] [address] 8[address] -[address]150 Jan, [address] 40625- 6523 16 Jan, 2017 Canker sores oral K12.0 [place] [address] 32818- 9144 14 Jan, 2017 [place] [address] 78704- 6798 07 Jan, 2017 Other chronic pain G89.29 and Generalized anxiety disorder F41.[address] 57575- 1519 06 Jan, 2017 Cough R05 and Bronchitis J40 [facility] [address] 16502 -2496 Jan, Bronchitis J40 [address] 73130- 5669 Dec, Vitamin D deficiency E55.[address] 73670- 8420 Dec, DM (diabetes mellitus) with complications E11.[address] 72200- 1266 Dec, 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 and Vitamin D deficiency E55.[address] 53724- 5525 10 Dec, 2016 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 ; Essential hypertension I10 ; Hyperlipidemia, unspecified hyperlipidemia type E78.5 ; Vitamin D deficiency E55.9 ; Gastroesophageal reflux disease, esophagitis presence not specified K21.9 ; 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 [id number] [place] [address] 69663- 7888 Aug, [facility] [id number] [place] [address] 10371 -4302 Aug, Dysuria R30.0 ; Acute cystitis with hematuria N30.01 and Middle ear effusion, right H65.91 [place] [id number] [place] [address] 29857- 7668 Aug, Other complicated headache syndrome G44.59 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 [address], [place] [address]- [address] 14 Aug, [address] [facility] [id number] [place] [address] 26021- 6783 Aug, D[address]uria R30.0 [facility] [address] [place] [address] 44867- 7755 Aug, [facility] [id number] [place] [address] 10766- 7848 July, [facility] [address] [place] [address] 34797- 5336 July, 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 [id number] [place] [address] 68299- 5896 July, Other complicated headache syndrome G44.59 [facility] [address] [place] [address] 30057- 2756 July, [facility] [id number] [place] [address] 62779 -8110 July, Dysuria R30.0 and Acute cystitis with hematuria N30.01 [facility] [address], [place] [address]- [address] July, [facility] [address], [place] [address]- 5290 July, Other complicated headache syndrome G44.59 [facility] [address] [place] [address] 34375 -1110 Jun, Exposure to strep throat Z20.818 and Acute upper respiratory infection, unspecified J06.9 [facility] [address], [place] [address]- 0147 Jun, 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 and Gastroesophageal reflux disease, esophagitis presence not specified K21.9 [place] [id number] [place] [address] 57827- 5312 Jun, [place] [address] 25083- 7623 Jun, Dizziness R42 [facility] [place] [address] 11227 -0052 Jun, [place] [address] 39407- 5450 Jun, [facility] [place] [place] [address] 77819 -8996 May, Seasonal allergic rhinitis, unspecified allergic rhinitis trigger J30.2 [place] [address] 70263- 2328 May, [place] [id number] [place] [address] 04531- 3688 May, 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 [address], [place] [address]- 5176 Apr, [facility] [address], [place] [address]- 2443 Mar, [facility] [address], [place] [address]- 0833 Mar, [facility] [address] [place] [address] 41252- 6631 Mar, [facility] [address], [place] [address]- 7833 Mar, [facility] [address] [place] [address] 84245- 7444 Feb, [facility] [id number] [place] [address] 58503- 8530 Feb, [facility] [address] [place] [address] 57821- 3224 Feb, 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 [address], [place] [address]- 1652 Jan, [facility] [address], [place] [address]- 8364 Jan, [facility] [address] [place] [address] 04890 -6161 Jan, Acute bronchitis, unspecified organism J20.9 [place] [id number] [place] [address] 80682- 9866 Jan, [place] [id number] [place] [address] 07759- 4860 Jan, History of CVA with residual deficit I69.30 [place] [id number] [place] [address] 56435- 4260 Jan, [place] [id number] [place] [address] 95253- 9667 Jan, Acute bronchitis, unspecified organism J20.9 [place] [id number] [place] [address] 07287- 0142 Jan, [place] [id number] [place] [address] 64793- 9630 Dec, History of CVA with residual deficit I69.30 [place] [id number] [place] [address] 10181- 1869 Dec, [place] [id number] [place] [address] 11980- 8914 Dec, Other chronic pain G89.29 ; 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 and History of CVA with residual deficit I69.30 [place] [id number] [place] [address] 28947- 0708 Nov, Major depressive disorder, recurrent episode, moderate F33.1 ; Irregular heart rhythm I49.9 ; Essential hypertension I10 ; History of CVA with residual deficit I69.30 ; 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 ; Gastroesophageal reflux disease, esophagitis presence not specified K21.9 ; Hyperlipidemia, unspecified hyperlipidemia type E78.5 ; 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 ; Other chronic pain G89.29 and Generalized anxiety disorder F41.1 [place] [id number] [place] [address] 65383- 0294 Oct, Generalized anxiety disorder F41.1 ; Major depressive disorder, recurrent episode, moderate F33.1 ; Essential hypertension I10 ; History of CVA with residual deficit I69.30 ; 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 ; Gastroesophageal reflux disease, esophagitis presence not specified K21.9 ; Hyperlipidemia, unspecified hyperlipidemia type E78.5 ; Other chronic pain G89.29 and Bacterial conjunctivitis of left eye H10.[address] 48684- 3239 Sep, Chronic pain syndrome G89.4 and 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 [address] [address] [id number] [place] [address] 26312- 3671 Sep, Irregular heart rhythm I49.9 ; Routine health maintenance Z00.00 ; Essential hypertension I10 ; History of CVA with residual deficit I69.30 ; Gastroesophageal reflux disease, esophagitis presence not specified K21.9 ; 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 ; Hyperlipidemia, unspecified hyperlipidemia type E78.5 and Other complicated headache syndrome G44.59 [place] [id number] [place] [address] 64221- 2679 Jun, [place] [id number] [place] [address] 20819- 5233 Jun, [place] [id number] [place] [address] 80362- 5490 Aug, [place] [id number] [place] [address] 17875- 3566 Jun, IMMUNIZATIONS No Known Immunizations SOCIAL HISTORY Never Assessed REASON FOR VISIT [facility] PLAN OF CARE VITAL SIGNS Height 62 in 2017-02-05 Weight 200.4 lbs 2017-02-05 BMI 36.65 kg/m2 2017-02-05 MEDICATIONS Unknown Medications RESULTS No Results PROCEDURES No Known procedures INSTRUCTIONS MEDICATIONS ADMINISTERED No Known Medications MEDICAL (GENERAL) HISTORY Type Description Date Medical History diabetes mellitus Medical History hyperlipidemia Medical History hypertension Medical History stroke Medical History Anxiety disorder Medical History Panic attacks Medical History Blood Clotting Disorder- Dr Galvan at [facility] Medical History Possible Anemia (currently under work up) - Dr Galvan [facility] Medical History irregular heart beat-sees dr. hassan Medical History history of pancreatitis Medical History gerd Medical History History of CVA with residual deficit Medical History Other complicated headache syndrome Medical History Stokes syndrome Surgical History tubal ligation Surgical History section Surgical History cholecystectomy Surgical History Toe Nail Removal x2 Hospitalization History Brain Stem Strokes x5. Has been hospitalized at then transfered to [place]. 2014 Hospitalization History Child Hospitalization History abd pain and shakiness - [facility] ED visit [facility], [place], operated by [facility] Hospitalization History [facility] ED for URI 04/16/17
--- OUTSIDE RECORDS SUMMARY | 2017-11-04 16:42 | XMS REPORT ---
Author Author GAYE SOTERO Organization [facility] Address [address] [place] [address] Care Team Providers Care Fresh Food Manager Name Role Phone HUIZARSOTERO Cox Unavailable PROBLEMS Type Condition ICD9-CM Code TJD83-DQ Code Onset Dates Condition Status SNOMED Code Problem Other chronic pain G89.29 Active 04617469 Problem Tobacco abuse counseling Z71.6 Active 188947979 Problem Tobacco abuse Z72.0 Active 227781983 Problem Acute non intractable tension-type headache G44.209 Active 960783346 Problem Chronic pain syndrome G89.4 Active 337611496 Problem History of CVA with residual deficit I69.30 Active 506378564 Problem Seasonal allergic rhinitis due to pollen J30.1 Active 16626853 Problem Type 2 diabetes mellitus with hyperglycemia E11.65 Active 06651221 Problem penitentiary current use of insulin Z79.4 Active 367650443 Problem Major depressive disorder, recurrent episode, moderate F33.1 Active 227001765 Problem Elevated liver enzymes R74.8 Active 704102392 Problem Vitamin D deficiency E55.9 Active 16551630 Problem Gastroesophageal reflux disease, esophagitis presence not specified K21.9 Active 331730728 Problem Essential hypertension I10 Active 16537842 Problem Generalized anxiety disorder F41.1 Active 66836522 Problem Hyperlipidemia, unspecified hyperlipidemia type E78.5 Active 19172025 Problem 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 Active 009291375 Problem DM (diabetes mellitus) with complications E11.8 Active 24564895 ALLERGIES Substance Reaction Event Type Date Status Penicillin V Potassium Unknown Drug Allergy Mar, Active Erythromycin Base Unknown Drug Allergy Mar, Active Codeine Unknown Drug Allergy Mar, Active ENCOUNTERS Encounter Location Date Diagnosis [facility] [id number] [address] Aug, Acute cystitis with hematuria N30.01 and Candidal dermatitis B37.2 [facility] [id number] [place] [address] 88245- 4445 Aug, Dysuria R30.0 [place] [id number] [place] [address] 52587- 9937 Aug, [facility] [id number] [place] [address] 32106 -3769 Aug, Dysuria R30.0 [place] [address] 73046- 1546 Aug, [place] [id number] [place] [address] 76159- 2822 July, Cervicalgia M54.2 ; Acute non intractable tension-type headache G44.209 ; Type 2 diabetes mellitus with hyperglycemia E11.65 and penitentiary current use of insulin Z79.4 [place] [id number] [place] [address] 85774- 0572 July, Generalized anxiety disorder F41.1 and Chronic pain syndrome G89.4 [place] [id number] [place] [address] 13594- 7105 July, Abscess L02.91 [place] [id number] [place] [address] 07324- 6616 July, [place] [id number] [place] [address] 19472- 0894 July, [place] [id number] [place] [address] 81860- 2859 July, Type 2 diabetes mellitus with hyperglycemia [...] pain syndrome G89.4 and Vaginal candidiasis B37.3 [place] [address] 62619- 7395 Jun, Generalized anxiety disorder F41.1 and Other chronic pain G89.29 [place] [address] 96740- 9118 Jun, [place] [address] 93764- 4675 Jun, [place] [address] 28667- 8440 Jun, Abnormal levels of other serum enzymes R74.8 [place] [address] 36410- 6309 Jun, Abnormal levels of other serum enzymes R74.8 [place] [address] 00791- 4640 Jun, Elevated liver enzymes R74.8 [place] [address] 53053- 9389 Jun, Elevated liver enzymes R74.8 [place] [address] 57784- 4506 30 May, 2017 Right upper quadrant pain R10.11 ; Cervicalgia M54.2 and High risk medication use Z79.899 [place] [address] 21608- 1125 May, Generalized anxiety disorder F41.1 and Other chronic pain G89.29 [place] [address] 49008- 8370 May, Canker sores oral K12.0 [place] [address] 37753- 1680 May, Generalized anxiety disorder F41.1 and Other chronic pain G89.29 [place] [address] [place] [address] May, [facility] [id number] [place] [address] 75817- 1219 Apr, [facility] [id number] [place] [address] 08204 -7824 Apr, Acute cystitis with hematuria N30.01 and Dysuria R30.0 [facility] [address] 52749- 4023 Apr, [facility] [address] 59425- 2663 Apr, [facility] [address] 21969- 3916 Apr, DM (diabetes mellitus) with complications E11.8 [place] [address] 16338- 6307 Apr, DM (diabetes mellitus) with complications E11.8 [facility] [id number] [place] [address] 81752- 4668 Apr, [facility] [address] 52090- 8013 Apr, [facility] [id number] [place] [address] 95032- 2009 Apr, Other chronic pain G89.29 ; Generalized anxiety disorder F41.1 ; Cervicalgia M54.2 and Controlled substance agreement signed Z79.899 [facility] [id number] [place] [address] 11321 -0273 Mar, Abdominal pain R10.9 and Viral gastroenteritis A08.4 [facility] [id number] [place] [address] 14937- 6666 Mar, [facility] [id number] [place] [address] 67670- 5289 Mar, [place] [address] 94474- 6589 Mar, DM (diabetes mellitus) with complications E11.8 [...] not specified K21.9 and 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 [place] [address] 57380- 1272 Mar, [place] [address] 02082- 1839 Mar, DM (diabetes mellitus) with complications E11.8 ; Abnormal lung sounds R09.89 ; Bronchitis J40 and Hyperlipidemia, unspecified hyperlipidemia type E78.5 [facility] [address] 04644 -9945 Mar, URI, acute J06.9 [place] [address] 53993- 5630 Mar, [place] [address] 35773- 2098 Mar, DM (diabetes mellitus) with complications E11.8 [place] [address] 21905- 4484 Mar, Other chronic pain G89.29 and Generalized anxiety disorder F41.1 [place] [address] 51696- 3484 Feb, [address] 65019- 1542 Feb, Mass of left lung R91.8 and Cervicalgia M54.[address] 14294- 9589 Feb, [facility] [address] 45532- 3006 Feb, [facility] [address] 33667 -0926 Feb, Cough R05 and Bronchitis J40 [facility] [address] 36485 -4040 Feb, Acute nasopharyngitis J00 and Bronchitis J40 [facility] [address] 96476- 0510 Feb, Other chronic pain G89.29 and Generalized anxiety disorder F41.1 [place] [address] 80362- 5199 Jan, Encounter for immunization Z23 [facility] [address] 27297 -0518 Jan, [facility] [address] 40238 -0581 18 Jan, 2017 [facility] [address] 92000- 3262 16 Jan, 2017 Canker sores oral K12.0 [place] [address] 75506- 0139 14 Jan, 2017 [facility] [address] 41677- 6294 07 Jan, 2017 Other chronic pain G89.29 and Generalized anxiety disorder F41.1 [facility] [address] 95445- 2631 06 Jan, 2017 Cough R05 and Bronchitis J40 [facility] [address] 04389 -2935 Jan, Bronchitis J40 [facility] [address] 85982- 3337 Dec, Vitamin D deficiency E55.9 [place] [address] 11684- 2121 Dec, DM (diabetes mellitus) with complications E11.8 [place] [address] 15528- 4704 Dec, DM (diabetes mellitus) with complications E11.8 and Vitamin D deficiency E55.9 [place] [address] 29128- 0373 Dec, DM (diabetes mellitus) with complications E11.8 ; Essential hypertension I10 ; Hyperlipidemia, unspecified hyperlipidemia type E78.5 ; Vitamin D deficiency E55.9 ; Gastroesophageal reflux disease, esophagitis presence not specified K21.9 ; 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 ; Other chronic pain G89.29 ; Encounter for immunization Z23 and Generalized anxiety disorder F41.[address] 06730- 2932 12 Nov, 2016 History of CVA with residual deficit I69.30 [place] [address] 20423- 6639 11 Nov, 2016 DM (diabetes mellitus) with complications E11.8 [place] [address] 42839- 0934 06 Nov, 2016 Left otitis media with effusion H65.92 ; Bronchitis J40 and Canker sores oral K12.0 [place] [address] 86708- 5167 Oct, [place] [address] 26292- 8982 Oct, DM (diabetes mellitus) with complications E11.8 [place] [address] 09297- 4797 Oct, [place] [address] 01707- 5521 Sep, DM (diabetes mellitus) with complications E11.8 [place] [id number] [place] [address] 17456- 4923 11 Sep, 2016 DM (diabetes mellitus) with complications E11.8 ; Essential hypertension I10 ; Gastroesophageal reflux disease, esophagitis presence not specified K21.9 ; Hyperlipidemia, unspecified hyperlipidemia type E78.5 ; Tobacco abuse Z72.0 ; Vitamin D deficiency E55.9 ; History of CVA with residual deficit I69.30 and Seasonal allergic rhinitis due to pollen J30.1 [facility] [address] 64828- 6512 Sep, [place] [address] 31421- 8695 Aug, [facility] [address] 39665 -9089 Aug, Dysuria R30.0 ; Acute cystitis with hematuria N30.01 and Middle ear effusion, right H65.91 [place] [address] 95481- 3311 Aug, Other complicated headache syndrome G44.59 [place] [address] 71279- 8650 19 Aug, 2016 DM (diabetes mellitus) with complications E11.8 [place] [id number] [place] [address] 24620- 4488 14 Aug, 2016 Dysuria R30.0 [place] [id number] [place] [address] 26533- 5215 Aug, Dysuria R30.0 [place] [address] 30298- 2150 Aug, [place] [address] 46747- 0931 July, [place] [address] 31555- 4701 July, [place] [address] 80801- 0489 July, DM (diabetes mellitus) with complications E11.8 [facility] [id number] [place] [address] 56144- 3096 July, Other complicated headache syndrome G44.59 [facility] [id number] [place] [address] 42906- 8005 July, [facility] [id number] [place] [address] 40580 -1883 July, Dysuria R30.0 and Acute cystitis with hematuria N30.01 [facility] [id number] [place] [address] 35751- 6939 July, [facility] [id number] [place] [address] 39376- 3411 July, Other complicated headache syndrome G44.59 [facility] [id number] [place] [address] 23416 -0236 Jun, Exposure to strep throat Z20.818 and Acute upper respiratory infection, unspecified J06.9 [facility] [id number] [place] [address] 94463- 7639 Jun, [facility] [id number] [place] [address] 85342- 7773 Jun, DM (diabetes mellitus) with complications E11.8 and Gastroesophageal reflux disease, esophagitis presence not specified K21.9 [facility] [address] [place] [address] 49722- 8724 Jun, [facility] [id number] [place] [address] 19137- 1616 Jun, Dizziness R42 [facility] [id number] [place] [address] 89417 -9096 Jun, [facility] [id number] [place] [address] 64996- 6584 Jun, [facility] [address] [place] [address] 55604 -0799 May, Seasonal allergic rhinitis, unspecified allergic rhinitis trigger J30.2 [facility] [id number] [place] [address] 05160- 8075 May, [facility] [id number] [place] [address] 13426- 5353 May, DM (diabetes mellitus) with complications E11.8 [...] Seasonal allergic rhinitis due to pollen J30.1 [facility] [id number] [place] [address] 53963- 1759 May, Gastroesophageal reflux disease, esophagitis presence not specified K21.9 [facility] [id number] [place] [address] 85830- 0443 May, [facility] [id number] [place] [address] 88230- 9494 Apr, [facility] [id number] [place] [address] 06911- 9968 Apr, [facility] [id number] [place] [address] 60544- 4886 Mar, [facility] [id number] [place] [address] 57998- 3096 Mar, [facility] [id number] [place] [address] 88250- 1573 Mar, [facility] [id number] [place] [address] 50020- 6105 Mar, [facility] [id number] [place] [address] 58776- 5914 Feb, [facility] [id number] [place] [address] 50729- 8855 Feb, [facility] [id number] [place] [address] 46622- 2396 Feb, [facility] [id number] [place] [address] 20268- 4292 Feb, Major depressive disorder, recurrent episode, moderate F33.1 ; Generalized anxiety disorder F41.1 ; Essential hypertension I10 ; DM ( diabetes mellitus) with complications E11.8 ; Hyperlipidemia, unspecified hyperlipidemia type E78.5 ; 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 and Gastroesophageal reflux disease, esophagitis presence not specified K21.9 [facility] [id number] [place] [address] 78522 -4969 Feb, Other viral agents as the cause of diseases classified elsewhere B97.89 and Acute upper respiratory infection, unspecified J06.9 [place] [id number] [place] [address] 13539- 7911 Jan, [facility] [id number] [place] [address] 86593- 7083 Jan, [facility] [id number] [place] [address] 35764 -9003 Jan, Acute bronchitis, unspecified organism J20.9 [place] [id number] [place] [address] 13361- 2232 Jan, [facility] [id number] [place] [address] 78708- 4723 Jan, History of CVA with residual deficit I69.30 [place] [address] 40330- 0681 Jan, [place] [id number] [place] [address] 19583- 0526 Jan, Acute bronchitis, unspecified organism J20.9 [facility] [address] [place] [address]- 5806 Jan, [place] [id number] [place] [address] 53325- 2036 Dec, History of CVA with residual deficit I69.30 [place] [id number] [place] [address] 78687- 5426 Dec, [place] [address] 40633- 6763 Dec, Other chronic pain G89.29 ; DM (diabetes mellitus) with complications E11.8 and History of CVA with residual deficit I69.30 [place] [id number] [place] [address] 55490- 1667 Nov, Major depressive disorder, recurrent episode, moderate F33.1 ; Irregular heart rhythm I49.9 ; Essential hypertension I10 ; History of CVA with residual deficit I69.30 ; DM (diabetes mellitus) with complications E11.8 ; Gastroesophageal reflux disease, esophagitis presence not specified K21.9 ; Hyperlipidemia, unspecified hyperlipidemia type E78.5 ; 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 ; Other chronic pain G89.29 and Generalized anxiety disorder F41.1 [place] [address] [place] [address] 41996- 4272 Oct, Generalized anxiety disorder F41.1 ; Major depressive disorder, recurrent episode, moderate F33.1 ; Essential hypertension I10 ; History of CVA with residual deficit I69.30 ; DM (diabetes mellitus) with complications E11.8 ; Gastroesophageal reflux disease, esophagitis presence not specified K21.9 ; Hyperlipidemia, unspecified hyperlipidemia type E78.5 ; Other chronic pain G89.29 and Bacterial conjunctivitis of left eye H10.9 [place] [id number] [place] [address] 55096- 0630 Sep, Chronic pain syndrome G89.4 and DM (diabetes mellitus) with complications E11.8 [place] [address] [place] [address] 57779- 1553 Sep, Irregular heart rhythm I49.9 ; Routine health maintenance Z00.00 ; Essential hypertension I10 ; History of CVA with residual deficit I69.30 ; Gastroesophageal reflux disease, esophagitis presence not specified K21.9 ; DM (diabetes mellitus) with complications E11.8 ; Hyperlipidemia, unspecified hyperlipidemia type E78.5 and Other complicated headache syndrome G44.59 [facility] [address] [address]- 5710 Jun, [facility] [address] [place] [address] 11261- 5364 Jun, [facility] [address] [place] [address] 88581- 8328 Aug, [place] [address] [place] [address] 49556- 8518 Jun, IMMUNIZATIONS No Known Immunizations SOCIAL HISTORY Never Assessed REASON FOR VISIT Respiratory c/o--tjanssenMA, --coughing up green phlegm since , having a burning sensation, no pain , --Fever blisters, not sleeping well. Went to walk in last week given prednisone with no change in symptoms. PLAN OF CARE Activity Details Follow Up 3 Months Reason:[facility] Height 62 in 2017-03-28 Weight 203.6 lbs 2017-03-28 Temperature 98.1 degrees Fahrenheit 2017-03-28 Heart Rate 88 bpm 2017-03-28 Respiratory Rate 20 2017-03-28 Oximetry 94 % 2017-03-28 BMI 37.23 kg/m2 2017-03-28 Blood pressure systolic 108 mmHg 2017-03-28 Blood pressure diastolic 66 mmHg 2017-03-28 MEDICATIONS Medication Instructions Dosage Frequency Start Date End Date Duration Status Pen [place] 31G X 5 MM subcutaneously Once a day as directed 24h Jan, 90 days Active Xanax 1 MG Orally 4 times a day 1 tablet 6h 28 days Active ProAir HFA 108 (90 Base) MCG/ACT Inhalation every 6 hrs 2 puffs as needed 6h Jan, 7 days Not-Taking Potassium Chloride ER 10 TAKE ONE TABLET BY MOUTH TWICE A DAY WITH FOOD 90 Active Onglyza 5 mg Orally Once a day 1 tablet 24h Dec, 90 days Active MetFORMIN HCl ER (OSM) 1000 MG Orally twice a day 1 tablet twice a day 12h 08 Mar, 2018 90 days Active Triamcinolone Acetonide 0.1 % oral lesion twice a day 1 application at bedtime 12h Nov, 07 days Not-Taking Hydrochlorothiazide 25 MG Orally Once a day 1 tablet 24h 90 days Active Pantoprazole Sodium 20 mg Orally 2 times a day 1 tablets 12h May, 90 days Active Diflucan 150 MG Orally One time 1 tablet Jan, Not-Taking Metoprolol Tartrate 25 MG Orally Twice a day 1 tablet with food 12h 90 days Active Atorvastatin Calcium 80 MG Orally Once a day 1 tablet 24h 90 days Active Fenofibrate 54 Orally Once a day 1 tablet with a meal 24h 90 Active Walker - as directed Jan, Active Levemir Flexpen 100 UNIT/ML Subcutaneous 2 times a day 25 units 12h 12 months Active Fluticasone Propionate 50 MCG/ACT Nasally Once a day 1 spray in each nostril 24h Feb, 30 day(s) Not-Taking Lancets - Active Baclofen 20 mg Orally 2 times a day if needed 1 tablet with food or milk Feb, Mar, 30 day(s) Active Naproxen 500 mg Orally bid prn 1 tablet Sep, 90 days Active Pen [place] 31 gauge subcutaneously Once a day as directed 24h 90 Active Plavix 75 MG Orally Once a day 1 tablet 24h 90 days Active CompAir Nebulizer - as directed Feb, 30 days Not-Taking PredniSONE 20 mg Orally once daily 2 tablet with food 24h Mar, 05 days Active Bath/Shower Seat 1 please provide one adult shower seat for patient use one time shower/bath seat for bathing Dec, Active Hydrocodone-Acetaminophen 10-325 MG Orally every 6 hrs 1 tablet as needed 6h Mar, 28 days Active ASA Oral Once a day 1 tab 24h 90 days Active Albuterol Sulfate 0.63 MG/3ML Inhalation every 6 hrs 3 ml as needed 6h Feb, 30 days Not-Taking [place] Saline Nasal Gel 1 Nasally 2 times a day apply thin layer to nares bilat 12h Feb, Feb, 12 months Not-Taking Canagliflozin 100 mg Orally Once a day 1 tablet 24h 10 Dec, 2016 Mar, 30 day(s) Not-Taking Diltiazem HCl ER 120 MG Orally Once a day 1 capsule on an empty stomach in the morning 24h 90 days Active Doxycycline Monohydrate 100 mg Orally every 12 hrs 1 capsule 12h 08 Mar, 2017 Mar, 10 days Active ProAir HFA 108 (90 Base) MCG/ACT Inhalation every 4 hrs prn 2 puffs as needed Nov, Not-Taking OneTouch Delica Lancets 33G 33 TEST BLOOD SUGAR THREE TIMES A DAY E11.8 30 Active Fenofibrate 54 mg Orally Once a day TAKE ONE TABLET BY MOUTH DAILY WITH A MEAL 24h 90 days Active One Touch/One Touch II Starter 1 glucometer subcutaneously 3 times a day to take blood sugars daily Dispense as insurance allows 8h Sep, Active Test strips 8h Active Carafate 1 GM Orally Twice a day 1 tablet on an empty stomach 12h May, 30 days Active RESULTS Name Result Date Reference Range Xray : Chest 2 View (IN HOUSE) 2017-03-28 PROCEDURES Procedure Date Ordered Result Body Site MEASURE BLOOD OXYGEN LEVEL Mar 28, 2017 X-RAY EXAM CHEST 2 VIEWS Mar 28, 2017 [facility] VISIT ESTABLISHED PATIENT Mar 28, 2017 INSTRUCTIONS MEDICATIONS ADMINISTERED No Known Medications MEDICAL (GENERAL) HISTORY Type Description Date Medical History diabetes mellitus Medical History hyperlipidemia Medical History hypertension Medical History Anxiety disorder Medical History Blood Clotting Disorder- Dr Galvan at [facility] Medical History Possible Anemia (currently under work up) - Dr Galvan [facility] Medical History irregular heart beat-sees dr. hassan Medical History history of pancreatitis Medical History gerd Medical History History of CVA with residual deficit Medical History Other complicated headache syndrome Medical History Stokes syndrome Surgical History tubal ligation Surgical History section Surgical History cholecystectomy Surgical History Toe Nail Removal x2 Hospitalization History Brain Stem Strokes x5. Has been hospitalized at then transfered to [place]. 2014 Hospitalization History Child Hospitalization History abd pain and shakiness - [facility] ED visit [facility] Hospitalization History [facility] ED for URI 04/16/17 Hospitalization History via [facility] 08/16/17
--- OUTSIDE RECORDS SUMMARY | 2017-11-04 16:42 | XMS REPORT ---
Author Author GAYE SOTERO Organization [facility] Address [address] [place] [address] Care Team Providers Care Radio Frequency Technician Name Role Phone HUIZARSOTERO Cox Unavailable PROBLEMS Type Condition ICD9-CM Code BKZ10-QA Code Onset Dates Condition Status SNOMED Code Problem Other chronic pain G89.29 Active 29282826 Problem Tobacco abuse counseling Z71.6 Active 871395396 Problem Tobacco abuse Z72.0 Active 178118334 Problem Acute non intractable tension-type headache G44.209 Active 403081702 Problem Chronic pain syndrome G89.4 Active 879683628 Problem History of CVA with residual deficit I69.30 Active 272058216 Problem Seasonal allergic rhinitis due to pollen J30.1 Active 26202648 Problem Type 2 diabetes mellitus with hyperglycemia E11.65 Active 86243645 Problem senior care current use of insulin Z79.4 Active 512162013 Problem Major depressive disorder, recurrent episode, moderate F33.1 Active 956618516 Problem Elevated liver enzymes R74.8 Active 123288190 Problem Vitamin D deficiency E55.9 Active 20498279 Problem Gastroesophageal reflux disease, esophagitis presence not specified K21.9 Active 634920815 Problem Essential hypertension I10 Active 39430156 Problem Generalized anxiety disorder F41.1 Active 70408751 Problem Hyperlipidemia, unspecified hyperlipidemia type E78.5 Active 10829466 Problem 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 Active 461432780 Problem 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 [id number] [place] [address] 72274 -4204 Aug, Dysuria R30.0 [facility] [id number] [place] [address] 65498- 5031 Aug, [facility] [id number] [place] [address] 74852- 1525 July, Cervicalgia M54.2 ; Acute non intractable tension-type headache G44.209 ; Type 2 diabetes mellitus with hyperglycemia E11.65 and senior care current use of insulin Z79.4 [place] [id number] [place] [address] 16603- 9631 July, Generalized anxiety disorder F41.1 and Chronic pain syndrome G89.4 [place] [id number] [place] [address] 87125- 9935 July, Abscess L02.91 [place] [id number] [place] [address] 45027- 6442 July, [place] [id number] [place] [address] 11777- 8931 July, [place] [id number] [place] [address] 35547- 5906 July, Type 2 diabetes mellitus with hyperglycemia [...] G89.4 and Vaginal candidiasis B37.3 [place] [id number] [address] 78[address] Jun, Generalized anxiety disorder F41.1 and Other chronic pain G89.29 [facility] [id number] [place] [address] 95695- 0694 Jun, [facility] [id number] [place] [address] 29837- 6140 Jun, [facility] [id number] [place] [address] 63138- 6972 Jun, Abnormal levels of other serum enzymes R74.8 [facility] [id number] [place] [address] 27914- 6595 Jun, Abnormal levels of other serum enzymes R74.8 [facility] [id number] [place] [address] 94725- 8592 Jun, Elevated liver enzymes R74.8 [facility] [id number] [place] [address] 23954- 0341 Jun, Elevated liver enzymes R74.8 [facility] [id number] [place] [address] 43823- 9502 May, Right upper quadrant pain R10.11 ; Cervicalgia M54.2 and High risk medication use Z79.899 [facility] [id number] [place] [address] 91806- 5598 May, Generalized anxiety disorder F41.1 and Other chronic pain G89.29 [facility] [id number] [place] [address] 45999- 7480 May, Canker sores oral K12.0 [facility] [id number] [place] [address] 13445- 3697 May, Generalized anxiety disorder F41.1 and Other chronic pain G89.29 [facility] [id number] [place] [address] 94573- 9246 May, [facility] [id number] [place] [address] 13483- 9665 Apr, [facility] [id number] [place] [address] 38040 -4672 Apr, Acute cystitis with hematuria N30.01 and Dysuria R30.0 [facility] [id number] [place] [address] 62732- 7883 Apr, [place] [address] 82849- 2855 Apr, [facility] [id number] [place] [address] 30153- 8022 Apr, DM (diabetes mellitus) with complications E11.8 [place] [id number] [place] [address] 69587- 5064 Apr, DM (diabetes mellitus) with complications E11.8 [place] [id number] [place] [address] 39052- 1073 Apr, [place] [id number] [place] [address] 13764- 4729 Apr, [place] [id number] [place] [address] 74360- 7081 Apr, Other chronic pain G89.29 ; Generalized anxiety disorder F41.1 ; Cervicalgia M54.2 and Controlled substance agreement signed Z79.899 [facility] [id number] [place] [address] 01063 -2078 Mar, Abdominal pain R10.9 and Viral gastroenteritis A08.4 [place] [id number] [place] [address] 94371- 2951 Mar, [place] [id number] [place] [address] 51487- 9994 Mar, [facility] [id number] [place] [address] 24861- 7413 Mar, DM (diabetes mellitus) with complications E11.8 ; Type 2 diabetes mellitus with hyperglycemia E11.65 ; 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 care 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 use of insulin Z79.4 ; Essential hypertension I10 ; Bronchitis J40 ; Major depressive disorder , recurrent episode, moderate F33.1 ; Hyperlipidemia, unspecified hyperlipidemia type E78.5 ; Tobacco abuse Z72.0 ; Tobacco abuse counseling Z71.6 ; History of CVA with residual deficit I69.30 ; Gastroesophageal reflux disease, esophagitis presence not specified K21.9 and 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 [place] [address] 45407- 3075 16 Mar, 2017 [place] [address] 60442- 0904 Mar, 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 ; Abnormal lung sounds R09.89 ; Bronchitis J40 and Hyperlipidemia, unspecified hyperlipidemia type E78.5 [facility] [address] 88412 -4471 Mar, URI, acute J06.9 [place] [address] 70673- 4345 Mar, [place] [address] 50713- 3167 Mar, DM (diabetes mellitus) with complications E11.8 [place] [address] 26580- 3144 Mar, Other chronic pain G89.29 and Generalized anxiety disorder F41.1 [place] [address] 21889- 7693 Feb, [place] [address] 44972- 6388 Feb, Mass of left lung R91.8 and Cervicalgia M54.2 [place] [address] 80203- 4495 Feb, [place] [address] 91876- 4153 Feb, [facility] [address] 93103 -7232 Feb, Cough R05 and Bronchitis J40 [facility] [address] 18929 -9418 07 Feb, 2017 Acute nasopharyngitis J00 and Bronchitis J40 [facility] [address] 49950- 8285 06 Feb, 2017 Other chronic pain G89.29 and Generalized anxiety disorder F41.1 [facility] [address] 33835- 3356 Jan, Encounter for immunization Z23 [facility] [address] 42520 -2073 Jan, [facility] [address] 91933 -2598 18 Jan, 2017 [facility] [address] 80978- 2513 16 Jan, 2017 Canker sores oral K12.0 [place] [address] 62438- 4825 14 Jan, 2017 [place] [address] 27920- 2610 07 Jan, 2017 Other chronic pain G89.29 and Generalized anxiety disorder F41.1 [facility] [address] 66683- 0222 06 Jan, 2017 Cough R05 and Bronchitis J40 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 ; Essential hypertension I10 ; Hyperlipidemia, unspecified hyperlipidemia type E78.5 ; Vitamin D deficiency E55.9 ; Gastroesophageal reflux disease, esophagitis presence not specified K21.9 ; 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 ; Other chronic pain G89.29 ; Encounter for immunization Z23 and Generalized anxiety disorder F41.1 [place] [address] 73421- 9778 12 Nov, 2016 History of CVA with residual deficit I69.[address] 83121- 6175 11 Nov, 2016 DM (diabetes mellitus) with complications E11.8 [place] [address] 88664- 5446 06 Nov, 2016 Left otitis media with effusion H65.92 ; Bronchitis J40 and Canker sores oral K12.0 [place] [address] 83353- 3605 Oct, [place] [address] 24891- 8622 Oct, DM (diabetes mellitus) with complications E11.8 [place] [address] 63272- 0811 Oct, [place] [address] 39646- 3149 Sep, DM (diabetes mellitus) with complications E11.8 [place] [address] 84834- 5761 Sep, 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 ; Essential hypertension I10 ; Gastroesophageal reflux disease, esophagitis presence not specified K21.9 ; Hyperlipidemia, unspecified hyperlipidemia type E78.5 ; Tobacco abuse Z72.0 ; Vitamin D deficiency E55.9 ; History of CVA with residual deficit I69.30 and Seasonal allergic rhinitis due to pollen J30.1 [facility] [id number] [place] [address] 23014- 5552 Sep, [facility] [id number] [place] [address] 07569- 9971 Aug, [facility] [id number] [place] [address] 84145 -4304 Aug, Dysuria R30.0 ; Acute cystitis with hematuria N30.01 and Middle ear effusion, right H65.91 [facility] [id number] [place] [address] 38036- 0501 Aug, Other complicated headache syndrome G44.59 [facility] [id number] [place] [address] 60083- 7595 Aug, DM (diabetes mellitus) with complications E11.8 [place] [id number] [place] [address] 80900- 6266 14 Aug, 2016 Dysuria R30.0 [facility] [id number] [place] [address] 22253- 5139 12 Aug, 2016 Dysuria R30.0 [facility] [id number] [place] [address] 12238- 8905 Aug, [facility] [id number] [place] [address] 10743- 9945 July, [place] [id number] [place] [address] 11877- 1369 July, [place] [id number] [place] [address] 22916- 1683 July, DM (diabetes mellitus) with complications E11.8 [facility] [id number] [place] [address] 34593- 8021 July, Other complicated headache syndrome G44.59 [facility] [id number] [place] [address] 36168- 7018 July, [facility] [id number] [place] [address] 14590 -3622 July, Dysuria R30.0 and Acute cystitis with hematuria N30.01 [facility] [address] 35925- 8223 July, [facility] [address] 81058- 2631 July, Other complicated headache syndrome G44.59 [facility] [id number] [place] [address] 70700 -6399 Jun, Exposure to strep throat Z20.818 and Acute upper respiratory infection, unspecified J06.9 [facility] [id number] [place] [address] 01832- 0333 Jun, [facility] [id number] [place] [address] 49578- 7910 Jun, 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 and Gastroesophageal reflux disease, esophagitis presence not specified K21.9 [facility] [id number] [place] [address] 80460- 4054 Jun, [facility] [id number] [place] [address] 24153- 7411 Jun, Dizziness R42 [facility] [id number] [place] [address] 88303 -4411 Jun, [facility] [id number] [place] [address] 50180- 4107 Jun, [facility] [id number] [place] [address] 48419 -6566 May, Seasonal allergic rhinitis, unspecified allergic rhinitis trigger J30.2 [facility] [id number] [place] [address] 85455- 1560 May, [facility] [id number] [place] [address] 10565- 4069 May, DM (diabetes mellitus) with complications E11.8 [...] Seasonal allergic rhinitis due to pollen J30.1 [facility] [id number] [place] [address] 64607- 1573 May, Gastroesophageal reflux disease, esophagitis presence not specified K21.9 [facility] [id number] [place] [address] 54647- 1232 May, [facility] [id number] [place] [address] 91447- 8082 Apr, [facility] [id number] [place] [address] 72866- 0204 Apr, [facility] [id number] [place] [address] 42170- 4976 Mar, [facility] [id number] [place] [address] 25548- 6658 Mar, [facility] [id number] [place] [address] 41990- 1605 Mar, [facility] [id number] [place] [address] 27147- 9655 Mar, [facility] [id number] [place] [address] 579458- 0228 Feb, [facility] [id number] [place] [address] 17519- 2687 Feb, [facility] [id number] [place] [address] 54132- 8273 Feb, [place] [address] 06616- 5614 Feb, Major depressive disorder, recurrent episode, moderate F33.1 ; Generalized anxiety disorder F41.1 ; Essential hypertension I10 ; DM ( diabetes mellitus) with complications E11.8 ; Hyperlipidemia, unspecified hyperlipidemia type E78.5 ; 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 [id number] [place] [address] 17233 -5526 Feb, Other viral agents as the cause of diseases classified elsewhere B97.89 and Acute upper respiratory infection, unspecified J06.9 [place] [address] 83105- 4072 Jan, [place] [address] 51618- 8660 Jan, [facility] [id number] [place] [address] 67473 -9913 Jan, Acute bronchitis, unspecified organism J20.9 [place] [id number] [place] [address] 03569- 3984 Jan, [place] [id number] [place] [address] 38383- 6976 Jan, History of CVA with residual deficit I69.30 [place] [id number] [place] [address] 06512- 2215 Jan, [place] [address] 95445- 4904 Jan, Acute bronchitis, unspecified organism J20.9 [place] [id number] [place] [address] 57487- 2625 Jan, [place] [address] [place] [address]- 4747 31 Dec, 2015 History of CVA with residual deficit I69.30 [place] [id number] [place] [address] 82260- 6965 27 Dec, 2015 [place] [id number] [place] [address] 10319- 1735 18 Dec, 2015 Other chronic pain G89.29 ; 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 and History of CVA with residual deficit I69.30 [place] [address] [place] [address] 50459- 2942 Nov, Major depressive disorder, recurrent episode, moderate F33.1 ; Irregular heart rhythm I49.9 ; Essential hypertension I10 ; History of CVA with residual deficit I69.30 ; 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 ; Gastroesophageal reflux disease, esophagitis presence not specified K21.9 ; Hyperlipidemia, unspecified hyperlipidemia type E78.5 ; 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 ; Other chronic pain G89.29 and Generalized anxiety disorder F41.1 [place] [id number] [place] [address] 13322- 3270 Oct, Generalized anxiety disorder F41.1 ; Major depressive disorder, recurrent episode, moderate F33.1 ; Essential hypertension I10 ; History of CVA with residual deficit I69.30 ; 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 ; Gastroesophageal reflux disease, esophagitis presence not specified K21.9 ; Hyperlipidemia, unspecified hyperlipidemia type E78.5 ; Other chronic pain G89.29 and Bacterial conjunctivitis of left eye H10.9 [place] [id number] [address]- 9114 Sep, Chronic pain syndrome G89.4 and DM (diabetes mellitus) with complications E11.8 [place] [address] [place] [address] 71747- 7706 05 Sep, 2015 Irregular heart rhythm I49.9 ; Routine health maintenance Z00.00 ; Essential hypertension I10 ; History of CVA with residual deficit I69.30 ; Gastroesophageal reflux disease, esophagitis presence not specified K21.9 ; DM (diabetes mellitus) with complications E11.8 ; Hyperlipidemia, unspecified hyperlipidemia type E78.5 and Other complicated headache syndrome G44.59 [facility] [address] [address]- 1003 Jun, [facility] [id number] [address]- 6906 Jun, [facility] [address] [address]- 4322 Aug, [facility] [address] [address]- 6235 Jun, IMMUNIZATIONS No Known Immunizations SOCIAL HISTORY Never Assessed REASON FOR VISIT Requests return call PLAN OF CARE VITAL SIGNS MEDICATIONS Medication Instructions Dosage Frequency Start Date End Date Duration Status Levemir Flexpen 100 UNIT/ML Subcutaneous 2 times a day 20 units 12h Active RESULTS No Results PROCEDURES No Known procedures INSTRUCTIONS MEDICATIONS ADMINISTERED No Known Medications MEDICAL (GENERAL) HISTORY Type Description Date Medical History diabetes mellitus Medical History hyperlipidemia Medical History hypertension Medical History Anxiety disorder Medical History Blood Clotting Disorder- Dr Galvan at [facility] Medical History Possible Anemia (currently under work up) - Dr Galvan [facility] Medical History irregular heart beat-sees dr. hassan Medical History history of pancreatitis Medical History gerd Medical History History of CVA with residual deficit Medical History Other complicated headache syndrome Medical History Stokes syndrome Surgical History tubal ligation Surgical History section Surgical History cholecystectomy Surgical History Toe Nail Removal x2 Hospitalization History Brain Stem Strokes x5. Has been hospitalized at then transfered to [place]. 2014 Hospitalization History Child Hospitalization History abd pain and shakiness - [facility] ED visit [facility] Hospitalization History [facility] ED for URI 04/16/17 Hospitalization History via [facility] 08/16/17
--- OUTSIDE RECORDS SUMMARY | 2017-11-04 16:43 | XMS REPORT ---
Author Author HUIZARMICHAEL CoxELE Organization [facility] Address [address] [place] [address] Care Team Providers Care Grade Checker Name Role Phone HUIZARSOTERO Cox Unavailable PROBLEMS Type Condition ICD9-CM Code [id number] Code Onset Dates Condition Status SNOMED Code Problem Other chronic pain G89.29 Active 69322597 Problem Tobacco abuse counseling Z71.6 Active 090036999 Problem Tobacco abuse Z72.0 Active 202001190 Problem Acute non intractable tension-type headache G44.209 Active 348823847 Problem Chronic pain syndrome G89.4 Active 653243468 Problem History of CVA with residual deficit I69.30 Active 884530939 Problem Seasonal allergic rhinitis due to pollen J30.1 Active 32932911 Problem Type 2 diabetes mellitus with hyperglycemia E11.65 Active 16533285 Problem 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.4 Active 598435806 Problem Major depressive disorder, recurrent episode, moderate F33.1 Active 744660048 Problem Elevated liver enzymes R74.8 Active 123218148 Problem Vitamin D deficiency E55.9 Active 38111281 Problem Gastroesophageal reflux disease, esophagitis presence not specified K21.9 Active 342361980 Problem Essential hypertension I10 Active 57982222 Problem Generalized anxiety disorder F41.1 Active 91465214 Problem Hyperlipidemia, unspecified hyperlipidemia type E78.5 Active 60692575 Problem 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 Active 576401874 Problem DM (diabetes mellitus) with complications E11.8 Active 01805792 ALLERGIES No Information ENCOUNTERS Encounter Location Date Diagnosis [facility] [address] [address] Sep, [facility] [address], [place] [address] Aug, Dysuria R30.0 [facility] [id number] [place] [address] 79005- 8153 Aug, Generalized anxiety disorder F41.1 ; Chronic pain syndrome G89.4 and Dysuria R30.0 [place] [address] 06338- 8295 Aug, Acute cystitis with hematuria N30.01 and Candidal dermatitis B37.2 [facility] [id number] [place] [address] 62803- 0410 Aug, Dysuria R30.0 [facility] [address] 98144- 8189 Aug, [facility] [address] 485[address] -[address]70 Aug, Dysuria R30.0 [place] [address] 52503- 1082 Aug, [place] [address] 77950- 7694 July, Cervicalgia M54.2 ; Acute non intractable tension-type headache G44.209 ; Type 2 diabetes mellitus with hyperglycemia E11.65 and 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 [place] [id number] [place] [address] 03674- 6883 July, Generalized anxiety disorder F41.1 and Chronic pain syndrome G89.4 [place] [id number] [place] [address] 66645- 7340 July, Abscess L02.91 [place] [id number] [place] [address] 79940- 8823 July, [place] [id number] [place] [address] 80406- 1383 July, [place] [id number] [place] [address] 13453- 5172 July, Type 2 diabetes mellitus with hyperglycemia [...] pain syndrome G89.4 and Vaginal candidiasis B37.3 [place] [address] 34467- 1114 Jun, Generalized anxiety disorder F41.1 and Other chronic pain G89.29 [place] [address] 09071- 8980 Jun, [place] [address] 91502- 1448 Jun, [place] [address] 27231- 8978 Jun, Abnormal levels of other serum enzymes R74.8 [place] [id number] [place] [address] 74219- 3955 Jun, Abnormal levels of other serum enzymes R74.8 [place] [id number] [place] [address] 90933- 8890 Jun, Elevated liver enzymes R74.8 [place] [address] 26833- 8882 Jun, Elevated liver enzymes R74.8 [place] [id number] [place] [address] 10115- 3255 May, Right upper quadrant pain R10.11 ; Cervicalgia M54.2 and High risk medication use Z79.899 [place] [id number] [place] [address] 06623- 2513 May, Generalized anxiety disorder F41.1 and Other chronic pain G89.29 [place] [address] [place] [address] 7789 May, Canker sores oral K12.0 [facility] [id number] [place] [address] 04546- 0750 May, Generalized anxiety disorder F41.1 and Other chronic pain G89.29 [facility] [id number] [place] [address] 33015- 9767 May, [facility] [id number] [place] [address] 88727- 4375 Apr, [facility] [address] 68731 -4623 Apr, Acute cystitis with hematuria N30.01 and Dysuria R30.0 [place] [id number] [place] [address] 80078- 8846 Apr, [facility] [id number] [place] [address] 01293- 6819 Apr, [facility] [id number] [place] [address] 66837- 2376 Apr, DM (diabetes mellitus) with complications E11.8 [facility] [id number] [place] [address] 13338- 6068 06 Apr, 2017 DM (diabetes mellitus) with complications E11.8 [facility] [id number] [place] [address] 37771- 7849 Apr, [facility] [id number] [place] [address] 12794- 0885 Apr, [facility] [id number] [place] [address] 82075- 6611 Apr, Other chronic pain G89.29 ; Generalized anxiety disorder F41.1 ; Cervicalgia M54.2 and Controlled substance agreement signed Z79.899 [facility] [id number] [place] [address] 25872 -2657 Mar, Abdominal pain R10.9 and Viral gastroenteritis A08.4 [place] [id number] [place] [address] 77925- 5082 Mar, [place] [id number] [place] [address] 35677- 2536 Mar, [place] [address] 73683- 5808 Mar, DM (diabetes mellitus) with complications E11.8 [...] not specified K21.9 and 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 38991- 9720 Mar, [address] [address]- 1973 Mar, DM (diabetes mellitus) with complications E11.8 ; Abnormal lung sounds R09.89 ; Bronchitis J40 and Hyperlipidemia, unspecified hyperlipidemia type E78.5 [facility] [id number] [place] [address] 83208 -1498 Mar, URI, acute J06.9 [place] [id number] [place] [address] 34510- 6017 Mar, [address] 86308- 8870 Mar, DM (diabetes mellitus) with complications E11.8 [place] [id number] [place] [address] 90535- 0238 Mar, Other chronic pain G89.29 and Generalized anxiety disorder F41.[address] [place] [address]- 3412 Feb, [facility] [id number] [place] [address] 71818- 3376 Feb, Mass of left lung R91.8 and Cervicalgia M54.2 [facility] [address] 57380- 8678 Feb, [facility] [address] 46618- 2986 Feb, [facility] [address] 44989 -9965 Feb, Cough R05 and Bronchitis J40 [facility] [address] 27763 -7886 07 Feb, 2017 Acute nasopharyngitis J00 and Bronchitis J40 [place] [address] 32012- 3727 06 Feb, 2017 Other chronic pain G89.29 and Generalized anxiety disorder F41.1 [facility] [address] 31325- 9409 Jan, Encounter for immunization Z23 [facility] [address] 84437 -9568 Jan, [facility] [id number] [place] [address] 52295 -7641 18 Jan, 2017 [facility] [address] 00610- 8692 16 Jan, 2017 Canker sores oral K12.0 [place] [address] 71384- 7771 14 Jan, 2017 [facility] [address] 61295- 9625 07 Jan, 2017 Other chronic pain G89.29 and Generalized anxiety disorder F41.1 [facility] [address] 38909- 8793 Jan, Cough R05 and Bronchitis J40 [facility] [address] 99614 -4255 Jan, Bronchitis J40 [facility] [id number] [place] [address] 41904- 5133 Dec, Vitamin D deficiency E55.9 [facility] [address] 61307- 3298 Dec, DM (diabetes mellitus) with complications E11.8 [place] [address] 81290- 2095 Dec, DM (diabetes mellitus) with complications E11.8 and Vitamin D deficiency E55.9 [facility] [address] 15386- 6784 Dec, DM (diabetes mellitus) with complications E11.8 ; Essential hypertension I10 ; Hyperlipidemia, unspecified hyperlipidemia type E78.5 ; Vitamin D deficiency E55.9 ; Gastroesophageal reflux disease, esophagitis presence not specified K21.9 ; 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 ; Other chronic pain G89.29 ; Encounter for immunization Z23 and Generalized anxiety disorder F41.1 [place] [id number] [place] [address] 51502- 4846 Nov, History of CVA with residual deficit I69.30 [place] [address] 24925- 6044 Nov, DM (diabetes mellitus) with complications E11.8 [place] [id number] [place] [address] 48763- 8797 06 Nov, 2016 Left otitis media with effusion H65.92 ; Bronchitis J40 and Canker sores oral K12.0 [place] [id number] [place] [address] 96396- 6048 Oct, [place] [address] 05263- 4379 Oct, DM (diabetes mellitus) with complications E11.8 [place] [id number] [place] [address] 32732- 3127 Oct, [place] [id number] [place] [address] 10902- 2509 Sep, DM (diabetes mellitus) with complications E11.8 [place] [address] 80923- 0775 Sep, DM (diabetes mellitus) with complications E11.8 ; Essential hypertension I10 ; Gastroesophageal reflux disease, esophagitis presence not specified K21.9 ; Hyperlipidemia, unspecified hyperlipidemia type E78.5 ; Tobacco abuse Z72.0 ; Vitamin D deficiency E55.9 ; History of CVA with residual deficit I69.30 and Seasonal allergic rhinitis due to pollen J30.1 [place] [address] 81363- 3874 Sep, [place] [address] 56349- 4546 Aug, [facility] [address] 21742 -4440 Aug, Dysuria R30.0 ; Acute cystitis with hematuria N30.01 and Middle ear effusion, right H65.91 [place] [address] 65452- 8325 Aug, Other complicated headache syndrome G44.59 [place] [id number] [place] [address] 24521- 9885 Aug, DM (diabetes mellitus) with complications E11.8 [place] [address] 15880- 7164 14 Aug, 2016 Dysuria R30.0 [place] [id number] [place] [address] 89270- 3981 12 Aug, 2016 Dysuria R30.0 [place] [address] 38659- 7807 Aug, [facility] [address] [place] [address] 54628- 0751 July, [facility] [id number] [place] [address] 87728- 8872 July, [facility] [id number] [place] [address] 56646- 7008 July, DM (diabetes mellitus) with complications E11.8 [facility] [id number] [place] [address] 42075- 6439 July, Other complicated headache syndrome G44.59 [facility] [id number] [place] [address] 62923- 4131 July, [facility] [id number] [place] [address] 41285 -2500 July, Dysuria R30.0 and Acute cystitis with hematuria N30.01 [facility] [id number] [place] [address] 19392- 9633 July, [facility] [id number] [place] [address] 55510- 5805 July, Other complicated headache syndrome G44.59 [facility] [address] [place] [address] 11658 -2901 Jun, Exposure to strep throat Z20.818 and Acute upper respiratory infection, unspecified J06.9 [facility] [id number] [place] [address] 02288- 7847 Jun, [facility] [id number] [place] [address] 41058- 6315 Jun, DM (diabetes mellitus) with complications E11.8 and Gastroesophageal reflux disease, esophagitis presence not specified K21.9 [facility] [id number] [place] [address] 09689- 0872 Jun, [facility] [id number] [place] [address] 44548- 4449 Jun, Dizziness R42 [facility] [id number] [place] [address] 14764 -2636 Jun, [facility] [id number] [place] [address] 46771- 5919 Jun, [facility] [id number] [place] [address] 36049 -1123 May, Seasonal allergic rhinitis, unspecified allergic rhinitis trigger J30.2 [facility] [address] 42605- 4847 May, [facility] [address] 65526- 3023 May, DM (diabetes mellitus) with complications E11.8 [...] Seasonal allergic rhinitis due to pollen J30.1 [facility] [id number] [place] [address] 80136- 7738 May, Gastroesophageal reflux disease, esophagitis presence not specified K21.9 [facility] [id number] [place] [address] 68748- 4195 May, [facility] [id number] [place] [address] 47944- 2017 Apr, [facility] [address] 07612- 2196 Apr, [facility] [id number] [place] [address] 70021- 9637 Mar, [facility] [address] 83407- 5784 Mar, [facility] [address], [place] [address]- 4270 Mar, [facility] [id number] [place] [address] 80364- 1906 Mar, [facility] [id number] [place] [address] 07729- 2594 Feb, [facility] [id number] [place] [address] 62637- 2909 Feb, [facility] [id number] [place] [address] 16637- 9342 Feb, [place] [id number] [place] [address] 35542- 9760 Feb, Major depressive disorder, recurrent episode, moderate F33.1 ; Generalized anxiety disorder F41.1 ; Essential hypertension I10 ; DM ( diabetes mellitus) with complications E11.8 ; Hyperlipidemia, unspecified hyperlipidemia type E78.5 ; 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 and Gastroesophageal reflux disease, esophagitis presence not specified K21.9 [facility] [id number] [place] [address] 36442 -9599 Feb, Other viral agents as the cause of diseases classified elsewhere B97.89 and Acute upper respiratory infection, unspecified J06.9 [place] [address], [place] [address]- 9231 Jan, [facility] [address] [place] [address] 25156- 3798 Jan, [facility] [address] [place] [address] 42744 -8921 Jan, Acute bronchitis, unspecified organism J20.9 [facility] [address] [place] [address] 88602- 9933 Jan, [facility] [address], [place] [address]- 7420 Jan, History of CVA with residual deficit I69.30 [place] [address], [place] [address]- 5628 Jan, [place] [id number] [place] [address] 62292- 0088 Jan, Acute bronchitis, unspecified organism J20.9 [place] [address] [place] [address] 41199- 6266 Jan, [place] [id number] [place] [address] 98347- 1308 Dec, History of CVA with residual deficit I69.30 [place] [id number] [place] [address] 90138- 1675 Dec, [place] [address] [place] [address] 10671- 7927 Dec, Other chronic pain G89.29 ; DM (diabetes mellitus) with complications E11.8 and History of CVA with residual deficit I69.30 [place] [address] [address]- 6128 Nov, Major depressive disorder, recurrent episode, moderate F33.1 ; Irregular heart rhythm I49.9 ; Essential hypertension I10 ; History of CVA with residual deficit I69.30 ; DM (diabetes mellitus) with complications E11.8 ; Gastroesophageal reflux disease, esophagitis presence not specified K21.9 ; Hyperlipidemia, unspecified hyperlipidemia type E78.5 ; 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 ; Other chronic pain G89.29 and Generalized anxiety disorder F41.1 [place] [address], [place] [address]- 1456 Oct, Generalized anxiety disorder F41.1 ; Major depressive disorder, recurrent episode, moderate F33.1 ; Essential hypertension I10 ; History of CVA with residual deficit I69.30 ; DM (diabetes mellitus) with complications E11.8 ; Gastroesophageal reflux disease, esophagitis presence not specified K21.9 ; Hyperlipidemia, unspecified hyperlipidemia type E78.5 ; Other chronic pain G89.29 and Bacterial conjunctivitis of left eye H10.9 [place] [address] [place] [address] 37276- 7147 Sep, Chronic pain syndrome G89.4 and DM (diabetes mellitus) with complications E11.8 [place] [address] [place] [address] 58874- 4265 Sep, Irregular heart rhythm I49.9 ; Routine health maintenance Z00.00 ; Essential hypertension I10 ; History of CVA with residual deficit I69.30 ; Gastroesophageal reflux disease, esophagitis presence not specified K21.9 ; DM (diabetes mellitus) with complications E11.8 ; Hyperlipidemia, unspecified hyperlipidemia type E78.5 and Other complicated headache syndrome G44.[address] 57975- 3603 Jun, [address] 28648- 8889 Jun, [place] [id number] [place] [address] 42249- 1044 Aug, [place] [id number] [place] [address] 35426- 4720 Jun, IMMUNIZATIONS No Known Immunizations SOCIAL HISTORY [...] Blood Clotting Disorder- Dr Galvan at [facility] Medical History Possible Anemia (currently under work up) - Dr Galvan [facility] Medical History irregular heart beat-sees dr. hassan Medical History history of pancreatitis Medical History gerd Medical History History of CVA with residual deficit Medical History Other complicated headache syndrome Medical History Stokes syndrome Surgical History tubal ligation Surgical History section Surgical History cholecystectomy Surgical History Toe Nail Removal x2 Hospitalization History Brain Stem Strokes x5. Has been hospitalized at then transfered to [place]. 2014 Hospitalization History Child Hospitalization History abd pain and shakiness - [facility] ED visit [facility] Hospitalization History [facility] ED for URI 04/16/17 Hospitalization History via [facility] 08/16/17
--- OUTSIDE RECORDS SUMMARY | 2017-11-04 16:44 | XMS REPORT ---
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 Crusher Operator Name Role Phone HUIZARSOTERO Cox Unavailable PROBLEMS Type Condition ICD9-CM Code GLJ24-NV Code Onset Dates Condition Status SNOMED Code Problem Other chronic pain G89.29 Active 21560804 Problem Tobacco abuse counseling Z71.6 Active 858585932 Problem Tobacco abuse Z72.0 Active 423584137 Problem Acute non intractable tension-type headache G44.209 Active 903701005 Problem Chronic pain syndrome G89.4 Active 469096332 Problem History of CVA with residual deficit I69.30 Active 798602076 Problem Seasonal allergic rhinitis due to pollen J30.1 Active 12081996 Problem Type 2 diabetes mellitus with hyperglycemia E11.65 Active 37668563 Problem [facility] current use of insulin Z79.4 Active 745089648 Problem Major depressive disorder, recurrent episode, moderate F33.1 Active 070816101 Problem Elevated liver enzymes R74.8 Active 936129220 Problem Vitamin D deficiency E55.9 Active 53141022 Problem Gastroesophageal reflux disease, esophagitis presence not specified K21.9 Active 515815472 Problem Essential hypertension I10 Active 61997086 Problem Generalized anxiety disorder F41.1 Active 53651943 Problem Hyperlipidemia, unspecified hyperlipidemia type E78.5 Active 65635767 Problem 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 Active 241373215 Problem 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 Active 90639918 ALLERGIES No Information ENCOUNTERS Encounter Location Date Diagnosis [facility] [address], [place] [address] 11 Aug, 2017 Acute cystitis with hematuria N30.01 and Candidal dermatitis B37.2 [facility] [id number] [address] 08 Aug, 2017 Dysuria R30.0 [place] [id number], [place] [address] Aug, [facility] [id number] [place] [address] 25186 -3502 Aug, Dysuria R30.0 [facility] [id number] [place] [address] 28761- 5000 Aug, [facility] [id number] [place] [address] 58299- 5809 July, Cervicalgia M54.2 ; Acute non intractable tension-type headache G44.209 ; Type 2 diabetes mellitus with hyperglycemia E11.65 and [facility] current use of insulin Z79.4 [place] [id number] [place] [address] 12586- 6054 July, Generalized anxiety disorder F41.1 and Chronic pain syndrome G89.4 [place] [id number] [place] [address] 82561- 1182 July, Abscess L02.91 [place] [id number] [place] [address] 98677- 3601 July, [place] [id number] [place] [address] 35548- 9016 July, [place] [id number] [place] [address] 80536- 0050 July, Type 2 diabetes mellitus with hyperglycemia E11.65 ; [facility] current use of insulin Z79.4 ; Elevated [...] pain syndrome G89.4 and Vaginal candidiasis B37.3 [place] [id number] [address] 6[address] Jun, Generalized anxiety disorder F41.1 and Other chronic pain G89.29 [facility] [id number] [place] [address] 06508- 9691 Jun, [facility] [id number] [place] [address] 82506- 3720 Jun, [facility] [id number] [place] [address] 03758- 1019 Jun, Abnormal levels of other serum enzymes R74.8 [facility] [id number] [place] [address] 11003- 9094 Jun, Abnormal levels of other serum enzymes R74.8 [facility] [id number] [place] [address] 47641- 1837 Jun, Elevated liver enzymes R74.8 [facility] [id number] [place] [address] 97218- 6090 Jun, Elevated liver enzymes R74.8 [facility] [id number] [place] [address] 37483- 2406 May, Right upper quadrant pain R10.11 ; Cervicalgia M54.2 and High risk medication use Z79.899 [facility] [address] [place] [address] 07332- 3025 May, Generalized anxiety disorder F41.1 and Other chronic pain G89.29 [facility] [address] [place] [address] 82027- 2344 May, Canker sores oral K12.0 [facility] [id number] [place] [address] 79733- 6173 May, Generalized anxiety disorder F41.1 and Other chronic pain G89.29 [facility] [address] [place] [address] 76342- 3836 May, [facility] [id number] [place] [address] 74061- 0254 Apr, [facility] [id number] [place] [address] 03644 -7769 Apr, Acute cystitis with hematuria N30.01 and Dysuria R30.0 [facility] [id number] [place] [address] 81548- 7316 Apr, [place] [address] 84610- 4914 Apr, [facility] [id number] [place] [address] 24267- 4117 Apr, DM (diabetes mellitus) with complications E11.8 [place] [id number] [place] [address] 93970- 3643 Apr, DM (diabetes mellitus) with complications E11.8 [place] [id number] [place] [address] 54366- 2729 Apr, [place] [id number] [place] [address] 41951- 3583 Apr, [place] [id number] [place] [address] 68941- 8646 Apr, Other chronic pain G89.29 ; Generalized anxiety disorder F41.1 ; Cervicalgia M54.2 and Controlled substance agreement signed Z79.899 [facility] [id number] [place] [address] 27692 -1570 Mar, Abdominal pain R10.9 and Viral gastroenteritis A08.4 [place] [id number] [place] [address] 16819- 1643 Mar, [place] [id number] [place] [address] 94729- 5947 Mar, [facility] [id number] [place] [address] 77577- 1655 Mar, DM (diabetes mellitus) with complications E11.8 ; Type 2 diabetes mellitus with hyperglycemia E11.65 ; automatic pattern edger current use of insulin Z79.4 ; Essential hypertension I10 ; Bronchitis J40 ; Major depressive disorder , recurrent episode, moderate F33.1 ; Hyperlipidemia, unspecified hyperlipidemia type E78.5 ; Tobacco abuse Z72.0 ; Tobacco abuse counseling Z71.6 ; History of CVA with residual deficit I69.30 ; Gastroesophageal reflux disease, esophagitis presence not specified K21.9 and 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 [place] [address] 52293- 5040 16 Mar, 2017 [place] [address] 65395- 5021 Mar, DM (diabetes mellitus) with complications E11.8 ; Abnormal lung sounds R09.89 ; Bronchitis J40 and Hyperlipidemia, unspecified hyperlipidemia type E78.5 [facility] [address] 37882 -4580 Mar, URI, acute J06.9 [place] [address] 25295- 8776 Mar, [place] [address] 35167- 5503 Mar, DM (diabetes mellitus) with complications E11.8 [place] [address] 18990- 1649 Mar, Other chronic pain G89.29 and Generalized anxiety disorder F41.1 [place] [address] 16952- 5256 Feb, [place] [address] 76156- 4011 Feb, Mass of left lung R91.8 and Cervicalgia M54.2 [place] [address] 15017- 2038 Feb, [place] [address] 97562- 6307 Feb, [facility] [address] 68335 -9025 Feb, Cough R05 and Bronchitis J40 [facility] [address] 42960 -0526 07 Feb, 2017 Acute nasopharyngitis J00 and Bronchitis J40 [facility] [address] 28019- 0066 06 Feb, 2017 Other chronic pain G89.29 and Generalized anxiety disorder F41.1 [facility] [address] 11681- 6034 Jan, Encounter for immunization Z23 [facility] [address] 92802 -1263 Jan, [facility] [address] 17523 -7806 18 Jan, 2017 [facility] [address] 28230- 3297 16 Jan, 2017 Canker sores oral K12.0 [place] [address] 01892- 2251 14 Jan, 2017 [place] [address] 27987- 4296 07 Jan, 2017 Other chronic pain G89.29 and Generalized anxiety disorder F41.1 [facility] [address] 92413- 3878 06 Jan, 2017 Cough R05 and Bronchitis J40 [facility] [address] 52681 -6615 Jan, Bronchitis J40 [facility] [address] 76964- 1257 Dec, Vitamin D deficiency E55.9 [facility] [address] 58915- 4786 Dec, DM (diabetes mellitus) with complications E11.8 [place] [address] 41377- 9911 19 Dec, 2016 DM (diabetes mellitus) with complications E11.8 and Vitamin D deficiency E55.9 [place] [address] 47367- 1365 10 Dec, 2016 DM (diabetes mellitus) with complications E11.8 ; Essential hypertension I10 ; Hyperlipidemia, unspecified hyperlipidemia type E78.5 ; Vitamin D deficiency E55.9 ; Gastroesophageal reflux disease, esophagitis presence not specified K21.9 ; 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 ; Other chronic pain G89.29 ; Encounter for immunization Z23 and Generalized anxiety disorder F41.1 [place] [address] 70288- 0700 12 Nov, 2016 History of CVA with residual deficit I69.[address] 58574- 7330 11 Nov, 2016 DM (diabetes mellitus) with complications E11.8 [place] [address] 84965- 9941 06 Nov, 2016 Left otitis media with effusion H65.92 ; Bronchitis J40 and Canker sores oral K12.0 [place] [address] 75678- 3845 Oct, [place] [address] 96209- 8018 Oct, DM (diabetes mellitus) with complications E11.8 [place] [address] 93611- 4331 Oct, [place] [address] 34609- 1877 Sep, DM (diabetes mellitus) with complications E11.8 [place] [address] 72000- 7012 Sep, DM (diabetes mellitus) with complications E11.8 ; Essential hypertension I10 ; Gastroesophageal reflux disease, esophagitis presence not specified K21.9 ; Hyperlipidemia, unspecified hyperlipidemia type E78.5 ; Tobacco abuse Z72.0 ; Vitamin D deficiency E55.9 ; History of CVA with residual deficit I69.30 and Seasonal allergic rhinitis due to pollen J30.1 [facility] [id number] [place] [address] 89513- 3389 Sep, [facility] [id number] [place] [address] 65646- 9215 Aug, [facility] [id number] [place] [address] 85875 -4658 Aug, Dysuria R30.0 ; Acute cystitis with hematuria N30.01 and Middle ear effusion, right H65.91 [facility] [id number] [place] [address] 19508- 3741 Aug, Other complicated headache syndrome G44.59 [facility] [id number] [place] [address] 05874- 5953 Aug, DM (diabetes mellitus) with complications E11.8 [place] [id number] [place] [address] 07694- 5636 14 Aug, 2016 Dysuria R30.0 [facility] [id number] [place] [address] 25324- 7097 12 Aug, 2016 Dysuria R30.0 [facility] [id number] [place] [address] 42716- 3894 Aug, [facility] [id number] [place] [address] 87853- 2409 July, [place] [id number] [place] [address] 53081- 8111 July, [place] [id number] [place] [address] 68408- 1265 July, DM (diabetes mellitus) with complications E11.8 [facility] [id number] [place] [address] 67336- 3884 July, Other complicated headache syndrome G44.59 [facility] [id number] [place] [address] 64174- 0869 July, [facility] [id number] [place] [address] 85278 -1851 July, Dysuria R30.0 and Acute cystitis with hematuria N30.01 [facility] [address] 84007- 5286 July, [facility] [address] 79584- 4900 July, Other complicated headache syndrome G44.59 [facility] [id number] [place] [address] 34795 -4652 Jun, Exposure to strep throat Z20.818 and Acute upper respiratory infection, unspecified J06.9 [facility] [id number] [place] [address] 29686- 8206 Jun, [facility] [id number] [place] [address] 32584- 3601 Jun, DM (diabetes mellitus) with complications E11.8 and Gastroesophageal reflux disease, esophagitis presence not specified K21.9 [facility] [id number] [place] [address] 53711- 4528 Jun, [facility] [id number] [place] [address] 95375- 3050 Jun, Dizziness R42 [facility] [id number] [place] [address] 67177 -1381 Jun, [facility] [id number] [place] [address] 84985- 4268 Jun, [facility] [id number] [place] [address] 00824 -7559 May, Seasonal allergic rhinitis, unspecified allergic rhinitis trigger J30.2 [facility] [id number] [place] [address] 52208- 0732 May, [facility] [id number] [place] [address] 58868- 1963 May, DM (diabetes mellitus) with complications E11.8 [...] Seasonal allergic rhinitis due to pollen J30.1 [facility] [id number] [place] [address] 80344- 6234 May, Gastroesophageal reflux disease, esophagitis presence not specified K21.9 [facility] [id number] [place] [address] 17480- 5858 May, [facility] [id number] [place] [address] 50807- 7982 Apr, [facility] [id number] [place] [address] 76980- 0898 Apr, [facility] [id number] [place] [address] 71012- 0634 Mar, [facility] [id number] [place] [address] 26788- 1515 Mar, [facility] [id number] [place] [address] 03384- 5955 Mar, [facility] [id number] [place] [address] 34905- 0775 Mar, [facility] [id number] [place] [address] 752205- 8437 Feb, [facility] [id number] [place] [address] 72007- 2641 Feb, [facility] [id number] [place] [address] 75696- 2142 Feb, [place] [address] 65452- 3741 Feb, Major depressive disorder, recurrent episode, moderate F33.1 ; Generalized anxiety disorder F41.1 ; Essential hypertension I10 ; DM ( diabetes mellitus) with complications E11.8 ; Hyperlipidemia, unspecified hyperlipidemia type E78.5 ; 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 and Gastroesophageal reflux disease, esophagitis presence not specified K21.9 [facility] [id number] [place] [address] 43074 -0944 Feb, Other viral agents as the cause of diseases classified elsewhere B97.89 and Acute upper respiratory infection, unspecified J06.9 [place] [address] 57610- 7332 Jan, [place] [address] 29778- 6552 Jan, [facility] [id number] [place] [address] 60169 -0465 Jan, Acute bronchitis, unspecified organism J20.9 [place] [id number] [place] [address] 12826- 7159 Jan, [place] [id number] [place] [address] 81477- 9306 Jan, History of CVA with residual deficit I69.30 [place] [id number] [place] [address] 45770- 4199 Jan, [place] [address] 69012- 4587 Jan, Acute bronchitis, unspecified organism J20.9 [place] [id number] [place] [address] 02058- 3682 Jan, [place] [address] [place] [address]- 3736 31 Dec, 2015 History of CVA with residual deficit I69.30 [place] [address] [place] [address] 06201- 8708 27 Dec, 2015 [place] [address] [place] [address] 69481- 1425 18 Dec, 2015 Other chronic pain G89.29 ; 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 and History of CVA with residual deficit I69.30 [place] [address] [place] [address] 61383- 2200 Nov, Major depressive disorder, recurrent episode, moderate F33.1 ; Irregular heart rhythm I49.9 ; Essential hypertension I10 ; History of CVA with residual deficit I69.30 ; 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 ; Gastroesophageal reflux disease, esophagitis presence not specified K21.9 ; Hyperlipidemia, unspecified hyperlipidemia type E78.5 ; 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 ; Other chronic pain G89.29 and Generalized anxiety disorder F41.1 [place] [address] [place] [address] 36998- 2226 Oct, Generalized anxiety disorder F41.1 ; Major depressive disorder, recurrent episode, moderate F33.1 ; Essential hypertension I10 ; History of CVA with residual deficit I69.30 ; DM (diabetes mellitus) with complications E11.8 ; Gastroesophageal reflux disease, esophagitis presence not specified K21.9 ; Hyperlipidemia, unspecified hyperlipidemia type E78.5 ; Other chronic pain G89.29 and Bacterial conjunctivitis of left eye H10.9 [place] [id number] [address]- 3765 Sep, Chronic pain syndrome G89.4 and DM (diabetes mellitus) with complications E11.8 [place] [address] [place] [address] 79276- 9994 05 Sep, 2015 Irregular heart rhythm I49.9 ; Routine health maintenance Z00.00 ; Essential hypertension I10 ; History of CVA with residual deficit I69.30 ; Gastroesophageal reflux disease, esophagitis presence not specified K21.9 ; DM (diabetes mellitus) with complications E11.8 ; Hyperlipidemia, unspecified hyperlipidemia type E78.5 and Other complicated headache syndrome G44.59 [facility] [id number] [address]- 4195 Jun, [facility] [id number] [address]- 7109 Jun, [facility] [address] [address]- 8327 Aug, [facility] [id number] [address]- 0834 Jun, IMMUNIZATIONS No Known Immunizations SOCIAL HISTORY Never Assessed REASON FOR VISIT FYI PLAN OF CARE VITAL SIGNS MEDICATIONS Medication Instructions Dosage Frequency Start Date End Date Duration Status Hydrocodone-Acetaminophen 10-325 MG Orally every 6 hrs 1 tablet as needed 6h Mar, 28 days Active Xanax 1 MG Orally 4 times a day 1 tablet 6h 28 days Active RESULTS No Results PROCEDURES No Known procedures INSTRUCTIONS MEDICATIONS ADMINISTERED No Known Medications MEDICAL (GENERAL) HISTORY Type Description Date Medical History diabetes mellitus Medical History hyperlipidemia Medical History hypertension Medical History Anxiety disorder Medical History Blood Clotting Disorder- Dr Galvan at [facility] Medical History Possible Anemia (currently under work up) - Dr Galvan [facility] Medical History irregular heart beat-sees dr. hassan Medical History history of pancreatitis Medical History gerd Medical History History of CVA with residual deficit Medical History Other complicated headache syndrome Medical History Stokes syndrome Surgical History tubal ligation Surgical History section Surgical History cholecystectomy Surgical History Toe Nail Removal x2 Hospitalization History Brain Stem Strokes x5. Has been hospitalized at then transfered to [facility]. 2014 Hospitalization History Child Hospitalization History abd pain and shakiness - [facility] ED visit [facility] Hospitalization History [facility] ED for URI 04/16/17 Hospitalization History via [facility] er 08/16/17
--- OUTSIDE RECORDS SUMMARY | 2017-11-04 16:45 | XMS REPORT ---
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 Name Role Phone HUIZARSOTERO Cox Unavailable PROBLEMS Type Condition ICD9-CM Code DFA28-YJ Code Onset Dates Condition Status SNOMED Code Problem Other chronic pain G89.29 Active 42506443 Problem Tobacco abuse counseling Z71.6 Active 065957143 Problem Tobacco abuse Z72.0 Active 801550569 Problem Acute non intractable tension-type headache G44.209 Active 142443963 Problem Chronic pain syndrome G89.4 Active 024982204 Problem History of CVA with residual deficit I69.30 Active 588008877 Problem Seasonal allergic rhinitis due to pollen J30.1 Active 13144778 Problem Type 2 diabetes mellitus with hyperglycemia E11.65 Active 09097527 Problem halfway current use of insulin Z79.4 Active 525272449 Problem Major depressive disorder, recurrent episode, moderate F33.1 Active 665993632 Problem Elevated liver enzymes R74.8 Active 292549367 Problem Vitamin D deficiency E55.9 Active 71989843 Problem Gastroesophageal reflux disease, esophagitis presence not specified K21.9 Active 190239964 Problem Essential hypertension I10 Active 28988434 Problem Generalized anxiety disorder F41.1 Active 81169178 Problem Hyperlipidemia, unspecified hyperlipidemia type E78.5 Active 15297466 Problem 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 Active 989204014 Problem 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 Active 64730233 ALLERGIES No Information ENCOUNTERS Encounter Location Date Diagnosis [facility] [address] [address] Sep, [facility] [address] [address] Aug, Dysuria R30.0 [facility] [id number] [place] [address] 11715- 9116 Aug, Generalized anxiety disorder F41.1 ; Chronic pain syndrome G89.4 and Dysuria R30.0 [place] [address] 08175- 0842 Aug, Acute cystitis with hematuria N30.01 and Candidal dermatitis B37.2 [facility] [id number] [place] [address] 38667- 2594 Aug, Dysuria R30.0 [facility] [address] 25389- 7171 Aug, [facility] IN 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 [place] [address] [place] [id number] [place] [address] 77140- 6335 July, Generalized anxiety disorder F41.1 and Chronic pain syndrome G89.4 [place] [address] [address] [id number] [place] [address] 61519- 4918 July, Abscess L02.91 [place] [address] [place] [id number] [place] [address] 81573- 5902 July, [place] [address] [address] [id number] [place] [address] 94355- 1521 July, [place] [address] [address] [id number] [place] [address] 41510- 3226 July, Type 2 diabetes mellitus with hyperglycemia [...] pain syndrome G89.4 and Vaginal candidiasis B37.3 [place] [address] 71522- 6886 Jun, Generalized anxiety disorder F41.1 and Other chronic pain G89.29 [place] [address] 17796- 2823 Jun, [place] [address] 00702- 2547 Jun, [place] [address] 68547- 1891 Jun, Abnormal levels of other serum enzymes R74.8 [place] [address] [place] [id number] [place] [address] 48315- 3226 Jun, Abnormal levels of other serum enzymes R74.8 [place] [address] [address] [id number] [place] [address] 60152- 9202 Jun, Elevated liver enzymes R74.8 [place] [address] 09713- 9522 Jun, Elevated liver enzymes R74.8 [place] [address] [place] [id number] [place] [address] 47480- 6627 May, Right upper quadrant pain R10.11 ; Cervicalgia M54.2 and High risk medication use Z79.899 [place] [address] [address] [id number] [place] [address] 02809- 9090 May, Generalized anxiety disorder F41.1 and Other chronic pain G89.29 [place] [address] [place] [id number] [place] [address] 117[address] May, Canker sores oral K12.0 [facility] [id number] [place] [address] 38251- 5158 May, Generalized anxiety disorder F41.1 and Other chronic pain G89.29 [facility] [id number] [place] [address] 19915- 8559 May, [facility] [id number] [place] [address] 51171- 1931 Apr, [facility] [address] 20147 -2113 Apr, Acute cystitis with hematuria N30.01 and Dysuria R30.0 [place] [address] [place] [address] [id number] [place] [address] 97859- 3854 Apr, [facility] [id number] [place] [address] 50107- 1237 Apr, [facility] [id number] [place] [address] 92034- 8456 Apr, DM (diabetes mellitus) with complications E11.8 [facility] [id number] [place] [address] 66426- 9454 06 Apr, 2017 DM (diabetes mellitus) with complications E11.8 [facility] [id number] [place] [address] 11309- 2692 Apr, [facility] [id number] [place] [address] 10343- 8977 Apr, [facility] [id number] [place] [address] 68502- 8754 Apr, Other chronic pain G89.29 ; Generalized anxiety disorder F41.1 ; Cervicalgia M54.2 and Controlled substance agreement signed Z79.899 [facility] [id number] [place] [address] 19812 -2114 Mar, Abdominal pain R10.9 and Viral gastroenteritis A08.4 [place] [address] [place] [address] [id number] [place] [address] 39544- 9994 Mar, [place] [address] [address] [id number] [place] [address] 61845- 1930 Mar, [place] [address] 53333- 2861 Mar, DM (diabetes mellitus) with complications E11.8 ; Type 2 diabetes mellitus with hyperglycemia E11.65 ; halfway current use of insulin Z79.4 ; Essential hypertension I10 ; Bronchitis J40 ; Major depressive disorder , recurrent episode, moderate F33.1 ; Hyperlipidemia, unspecified hyperlipidemia type E78.5 ; Tobacco abuse Z72.0 ; Tobacco abuse counseling Z71.6 ; History of CVA with residual deficit I69.30 ; Gastroesophageal reflux disease, esophagitis presence not specified K21.9 and 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 95705- 7072 Mar, [address] 57384- 5829 Mar, 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 [place] [address] [address] [id number] [place] [address] 32485- 3364 Mar, Other chronic pain G89.29 and Generalized anxiety disorder F41.[address] [place] [address]- 7561 Feb, [facility] [id number] [place] [address] 49899- 3556 Feb, Mass of left lung R91.8 and Cervicalgia M54.2 [facility] [address] 91911- 8917 Feb, [facility] [address] 67524- 8860 Feb, [facility] [address] 89603 -2673 Feb, Cough R05 and Bronchitis J40 [facility] [address] 99165 -6031 07 Feb, 2017 Acute nasopharyngitis J00 and Bronchitis J40 [place] [address] 32140- 2514 06 Feb, 2017 Other chronic pain G89.29 and Generalized anxiety disorder F41.1 [facility] [address] 63324- 1623 Jan, Encounter for immunization Z23 [facility] [address] 37678 -7308 Jan, [facility] [address] [id number] [place] [address] 10980 -2040 18 Jan, 2017 [facility] [address] 81606- 7389 16 Jan, 2017 Canker sores oral K12.0 [place] [address] 18149- 4142 14 Jan, 2017 [facility] [address] 11929- 7076 07 Jan, 2017 Other chronic pain G89.29 and Generalized anxiety disorder F41.1 [facility] [address] 64682- 5794 Jan, Cough R05 and Bronchitis J40 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 ; Essential hypertension I10 ; Hyperlipidemia, unspecified hyperlipidemia type E78.5 ; Vitamin D deficiency E55.9 ; Gastroesophageal reflux disease, esophagitis presence not specified K21.9 ; 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 ; Other chronic pain G89.29 ; Encounter for immunization Z23 and Generalized anxiety disorder F41.1 [place] [address] [place] [id number] [place] [address] 47157- 2877 Nov, History of CVA with residual deficit I69.30 [place] [address] 28350- 4271 Nov, 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 [place] [address] [place] [id number] [place] [address] 28977- 5650 06 Nov, 2016 Left otitis media with effusion H65.92 ; Bronchitis J40 and Canker sores oral K12.0 [place] [address] [id number] [place] [address] 44946- 4409 Oct, [place] [address] 16005- 8399 Oct, DM (diabetes mellitus) with complications E11.8 [place] [address] [id number] [place] [address] 55546- 9083 Oct, [place] [address] [id number] [place] [address] 69856- 4128 Sep, DM (diabetes mellitus) with complications E11.8 [place] [address] 07529- 5474 Sep, 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 [place] [address] 17050- 8095 14 Aug, 2016 Dysuria R30.0 [place] [address] [place] [id number] [place] [address] 49697- 9876 12 Aug, 2016 Dysuria R30.0 [place] [address] 68371- 6832 Aug, [facility] [id number] [place] [address] 11808- 5197 July, [facility] [id number] [place] [address] 38435- 6160 July, [facility] [id number] [place] [address] 23828- 4998 July, 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 [facility] [id number] [place] [address] 04080- 1084 July, Other complicated headache syndrome G44.59 [facility] [id number] [place] [address] 79223- 2710 July, [facility] [id number] [place] [address] 37289 -7596 July, Dysuria R30.0 and Acute cystitis with hematuria N30.01 [facility] [id number] [place] [address] 84683- 0739 July, [facility] [id number] [place] [address] 28465- 3192 July, Other complicated headache syndrome G44.59 [facility] IN 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 and Gastroesophageal reflux disease, esophagitis presence not specified K21.9 [facility] [id number] [place] [address] 51610- 3280 Jun, [facility] [id number] [place] [address] 26686- 8027 Jun, Dizziness R42 [facility] [id number] [place] [address] 90619 -0546 Jun, [facility] [id number] [place] [address] 94434- 1069 Jun, [facility] [id number] [place] [address] 82585 -3683 May, Seasonal allergic rhinitis, unspecified allergic rhinitis trigger J30.2 [facility] [address] 91704- 0197 May, [facility] [address] 82082- 6486 May, DM (diabetes mellitus) with complications E11.8 [...] Seasonal allergic rhinitis due to pollen J30.1 [facility] [id number] [place] [address] 92599- 8248 May, Gastroesophageal reflux disease, esophagitis presence not specified K21.9 [facility] [id number] [place] [address] 19653- 7628 May, [facility] [id number] [place] [address] 63361- 7247 Apr, [facility] [address] 22297- 4726 Apr, [facility] [id number] [place] [address] 95179- 3076 Mar, [facility] [address] 92906- 8285 Mar, [facility] [address] [address]- 2529 Mar, [facility] [id number] [place] [address] 59867- 7687 Mar, [facility] [address] [id number] [place] [address] 00952- 1577 Feb, [facility] [id number] [place] [address] 42921- 3465 Feb, [facility] [id number] [place] [address] 53847- 8825 Feb, [place] [address] [address] [id number] [place] [address] 09645- 9076 Feb, Major depressive disorder, recurrent episode, moderate F33.1 ; Generalized anxiety disorder F41.1 ; Essential hypertension I10 ; DM ( diabetes mellitus) with complications E11.8 ; Hyperlipidemia, unspecified hyperlipidemia type E78.5 ; 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 and Gastroesophageal reflux disease, esophagitis presence not specified K21.9 [facility] [id number] [place] [address] 89656 -0347 Feb, Other viral agents as the cause of diseases classified elsewhere B97.89 and Acute upper respiratory infection, unspecified J06.9 [place] [address] [address]- 3686 Jan, [facility] [id number] [place] [address] 93232- 4275 Jan, [facility] [id number] [place] [address] 83676 -7711 Jan, Acute bronchitis, unspecified organism J20.9 [facility] [id number] [place] [address] 12966- 9563 Jan, [facility] [address] [address]- 5643 Jan, History of CVA with residual deficit I69.30 [place] [address] [address]- 0427 Jan, [place] [address] [address] [id number] [place] [address] 65168- 8674 Jan, Acute bronchitis, unspecified organism J20.9 [place] [id number] [place] [address] 26009- 2819 Jan, [place] [address] [address] [id number] [place] [address] 57318- 3637 Dec, History of CVA with residual deficit I69.30 [place] [address] [address] [id number] [place] [address] 41927- 1653 Dec, [place] [address] [place] [address] 28266- 6962 Dec, Other chronic pain G89.29 ; 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 and History of CVA with residual deficit I69.30 [place] [address] [address]- 7308 Nov, Major depressive disorder, recurrent episode, moderate F33.1 ; Irregular heart rhythm I49.9 ; Essential hypertension I10 ; History of CVA with residual deficit I69.30 ; 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 ; Gastroesophageal reflux disease, esophagitis presence not specified K21.9 ; Hyperlipidemia, unspecified hyperlipidemia type E78.5 ; 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 ; Other chronic pain G89.29 and Generalized anxiety disorder F41.1 [place] [address] [address]- 2767 Oct, Generalized anxiety disorder F41.1 ; Major depressive disorder, recurrent episode, moderate F33.1 ; Essential hypertension I10 ; History of CVA with residual deficit I69.30 ; 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 ; Gastroesophageal reflux disease, esophagitis presence not specified K21.9 ; Hyperlipidemia, unspecified hyperlipidemia type E78.5 ; Other chronic pain G89.29 and Bacterial conjunctivitis of left eye H10.[address] [place] [address] 90556- 9508 Sep, Chronic pain syndrome G89.4 and DM (diabetes mellitus) with complications E11.8 [place] [id number] [place] [address] 22084- 2784 Sep, Irregular heart rhythm I49.9 ; Routine health maintenance Z00.00 ; Essential hypertension I10 ; History of CVA with residual deficit I69.30 ; Gastroesophageal reflux disease, esophagitis presence not specified K21.9 ; DM (diabetes mellitus) with complications E11.8 ; Hyperlipidemia, unspecified hyperlipidemia type E78.5 and Other complicated headache syndrome G44.[address] 32314- 2189 Jun, [address] 97549- 7913 Jun, [address] 76902- 2691 Aug, [address] 80426- 7199 Jun, IMMUNIZATIONS No Known Immunizations SOCIAL HISTORY Never Assessed REASON FOR VISIT Refill request PLAN OF CARE VITAL SIGNS MEDICATIONS Medication Instructions Dosage Frequency Start Date End Date Duration Status MetFORMIN HCl ER 750 MG Orally Once a day 1 tablet with evening meal 24h 30 days Active RESULTS No Results PROCEDURES No Known procedures INSTRUCTIONS MEDICATIONS ADMINISTERED No Known Medications MEDICAL (GENERAL) HISTORY Type Description Date Medical History diabetes mellitus Medical History hyperlipidemia Medical History hypertension Medical History Anxiety disorder Medical History Blood Clotting Disorder- Dr Galvan at [facility] Medical History Possible Anemia (currently under work up) - Dr Galvan [facility] Medical History irregular heart beat-sees dr. hassan Medical History history of pancreatitis Medical History gerd Medical History History of CVA with residual deficit Medical History Other complicated headache syndrome Medical History Stokes syndrome Surgical History tubal ligation Surgical History section Surgical History cholecystectomy Surgical History Toe Nail Removal x2 Hospitalization History Brain Stem Strokes x5. Has been hospitalized at then transfered to [place]. 2014 Hospitalization History Child Hospitalization History abd pain and shakiness - [facility] ED visit [facility] Hospitalization History [facility] ED for URI 04/16/17 Hospitalization History via [facility] er 08/16/17
--- OUTSIDE RECORDS SUMMARY | 2017-11-04 16:45 | XMS REPORT ---
Author Author TAN CURRY [facility] Address [address] [place] [address] Care Team Providers Care Director Of Photography Name Role Phone TAN CURRY Unavailable PROBLEMS Type Condition ICD9-CM Code XBK49-HR Code Onset Dates Condition Status SNOMED Code Problem Other chronic pain G89.29 Active 42526224 Problem Tobacco abuse counseling Z71.6 Active 965565210 Problem Tobacco abuse Z72.0 Active 631128529 Problem Acute non intractable tension-type headache G44.209 Active 639743864 Problem Chronic pain syndrome G89.4 Active 951991623 Problem History of CVA with residual deficit I69.30 Active 235719686 Problem Seasonal allergic rhinitis due to pollen J30.1 Active 61094763 Problem Type 2 diabetes mellitus with hyperglycemia E11.65 Active 15430565 Problem halfway current use of insulin Z79.4 Active 714347610 Problem Major depressive disorder, recurrent episode, moderate F33.1 Active 497313883 Problem Elevated liver enzymes R74.8 Active 329872200 Problem Vitamin D deficiency E55.9 Active 93416931 Problem Gastroesophageal reflux disease, esophagitis presence not specified K21.9 Active 550655626 Problem Essential hypertension I10 Active 44124039 Problem Generalized anxiety disorder F41.1 Active 09218184 Problem Hyperlipidemia, unspecified hyperlipidemia type E78.5 Active 31729479 Problem 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 Active 373196966 Problem 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 Active 04278358 ALLERGIES Substance Reaction Event Type Date Status Penicillin V Potassium Unknown Drug Allergy Feb, Active Erythromycin Base Unknown Drug Allergy Feb, Active Codeine Unknown Drug Allergy Feb, Active ENCOUNTERS Encounter Location Date Diagnosis [facility] [address] [facility] [id number] [address] Aug, Dysuria R30.0 [facility] [id number] [place] [address] 88101- 0850 Aug, [place] [address] [place] [id number] [place] [address] 20616- 3747 July, Cervicalgia M54.2 ; Acute non intractable tension-type headache G44.209 ; Type 2 diabetes mellitus with hyperglycemia E11.65 and 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 [place] [address] [place] [id number] [place] [address] 03789- 9097 July, Generalized anxiety disorder F41.1 and Chronic pain syndrome G89.4 [place] [id number] [place] [address] 64559- 8739 July, Abscess L02.91 [place] [address] [place] [id number] [place] [address] 59201- 0188 July, [place] [id number] [place] [address] 38030- 7337 July, [place] [address] [place] [id number] [place] [address] 01559- 7950 July, Type 2 diabetes mellitus with hyperglycemia [...] pain syndrome G89.4 and Vaginal candidiasis B37.3 [place] [id number] [place] [address] 63557- 9383 Jun, Generalized anxiety disorder F41.1 and Other chronic pain G89.29 [address] [place] [address] 49854- 2859 Jun, [place] [id number] [address] Jun, [facility] [id number] [place] [address] 26999- 1911 Jun, Abnormal levels of other serum enzymes R74.8 [facility] [id number] [place] [address] 26389- 2085 Jun, Abnormal levels of other serum enzymes R74.8 [facility] [address] [place] [id number] [place] [address] 69225- 7769 Jun, Elevated liver enzymes R74.8 [facility] [address] [place] [id number] [place] [address] 29684- 6857 Jun, Elevated liver enzymes R74.8 [facility] [id number] [place] [address] 31893- 7233 May, Right upper quadrant pain R10.11 ; Cervicalgia M54.2 and High risk medication use Z79.899 [facility] [id number] [place] [address] 58540- 9569 May, Generalized anxiety disorder F41.1 and Other chronic pain G89.29 [place] [address] [place] [id number] [place] [address] 75372- 4574 May, Canker sores oral K12.0 [place] [id number] [place] [address] 31600- 5498 May, Generalized anxiety disorder F41.1 and Other chronic pain G89.29 [facility] [address] [address] May, [facility] [address] [place] [id number] [place] [address] 68128- 6387 Apr, [facility] [address] [address] Apr, Acute cystitis with hematuria N30.01 and Dysuria R30.0 [facility] [address] [place] [id number] [place] [address] 14637- 0525 Apr, [facility] [address] [place] [id number] [place] [address] 97128- 4109 Apr, [facility] [address] [place] [id number] [place] [address] 33518- 0546 Apr, DM (diabetes mellitus) with complications E11.8 [facility] [address] [place] [id number] [place] [address] 12238- 0303 06 Apr, 2017 DM (diabetes mellitus) with complications E11.8 [place] [address] [place] [id number] [place] [address] 27714- 7965 03 Apr, 2017 [place] [address] [place] [id number] [place] [address] 05727- 0744 Apr, [place] [address] [place] [id number] [place] [address] 62753- 7871 Apr, Other chronic pain G89.29 ; Generalized anxiety disorder F41.1 ; Cervicalgia M54.2 and Controlled substance agreement signed Z79.899 [facility] [address] [place] [id number] [place] [address] 77281 -9943 Mar, Abdominal pain R10.9 and Viral gastroenteritis A08.4 [place] [address] [place] [id number] [place] [address] 30440- 6480 Mar, [facility] [address] [place] [id number] [place] [address] 30868- 6194 Mar, [facility] [address] [place] [id number] [place] [address] 22859- 2701 Mar, DM (diabetes mellitus) with complications E11.8 ; Type 2 diabetes mellitus with hyperglycemia E11.65 ; 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 ; Essential hypertension I10 ; Bronchitis J40 ; Major depressive disorder , recurrent episode, moderate F33.1 ; Hyperlipidemia, unspecified hyperlipidemia type E78.5 ; Tobacco abuse Z72.0 ; Tobacco abuse counseling Z71.6 ; History of CVA with residual deficit I69.30 ; Gastroesophageal reflux disease, esophagitis presence not specified K21.9 and 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 [place] [address] 06686- 9452 Mar, [place] [address] 21090- 8346 Mar, DM (diabetes mellitus) with complications E11.8 ; Abnormal lung sounds R09.89 ; Bronchitis J40 and Hyperlipidemia, unspecified hyperlipidemia type E78.5 [facility] [place] [address] 8[address] Mar, URI, acute J06.9 [place] [address] 20119- 5303 Mar, [place] [address] 69257- 9406 Mar, DM (diabetes mellitus) with complications E11.8 [place] [address] 02160- 8767 Mar, Other chronic pain G89.29 and Generalized anxiety disorder F41.1 [place] [address] 52440- 1178 Feb, [place] [address] 06748- 8637 Feb, Mass of left lung R91.8 and Cervicalgia M54.2 [place] [address] [place] [id number] [place] [address] 52822- 8587 Feb, [place] [address] 13898- 0005 Feb, [facility] [address] 92064 -8128 Feb, Cough R05 and Bronchitis J40 [facility] [address] 15196 -8751 07 Feb, 2017 Acute nasopharyngitis J00 and Bronchitis J40 [facility] [address] [place] [id number] [place] [address] 65264- 2088 06 Feb, 2017 Other chronic pain G89.29 and Generalized anxiety disorder F41.1 [facility] [address] [place] [id number] [place] [address] 92079- 1033 29 Jan, 2017 Encounter for immunization Z23 [facility] [address] 31837 -9383 Jan, [facility] [address] 85954 -9073 Jan, [facility] [address] 15885- 5745 16 Jan, 2017 Canker sores oral K12.0 [place] [address] 24773- 0048 14 Jan, 2017 [facility] [address] 53829- 0071 07 Jan, 2017 Other chronic pain G89.29 and Generalized anxiety disorder F41.1 [place] [address] [place] [id number] [place] [address] 57262- 3368 06 Jan, 2017 Cough R05 and Bronchitis J40 [facility] [address] [place] [id number] [place] [address] 81193 -7814 Jan, Bronchitis J40 [facility] [address] [place] [id number] [place] [address] 59319- 5464 Dec, Vitamin D deficiency E55.9 [place] [address] 88086- 3427 Dec, DM (diabetes mellitus) with complications E11.8 [place] [address] [place] [id number] [place] [address] 50126- 9655 Dec, DM (diabetes mellitus) with complications E11.8 and Vitamin D deficiency E55.9 [facility] [address] [place] [id number] [place] [address] 36324- 8691 10 Dec, 2016 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 ; Essential hypertension I10 ; Hyperlipidemia, unspecified hyperlipidemia type E78.5 ; Vitamin D deficiency E55.9 ; Gastroesophageal reflux disease, esophagitis presence not specified K21.9 ; 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 ; Other chronic pain G89.29 ; Encounter for immunization Z23 and Generalized anxiety disorder F41.[address] 56125- 3744 12 Nov, 2016 History of CVA with residual deficit I69.[address] 91310- 6450 11 Nov, 2016 DM (diabetes mellitus) with complications E11.[address] 57900- 3930 06 Nov, 2016 Left otitis media with effusion H65.92 ; Bronchitis J40 and Canker sores oral K12.[address] 67272- 7242 14 Oct, [address] 94501- 9020 04 Oct, 2016 DM (diabetes mellitus) with complications E11.[address] 29636- 5569 02 Oct, [address] 41885- 7439 Sep, DM (diabetes mellitus) with complications E11.8 [place] [id number] [place] [address] 90259- 4146 Sep, DM (diabetes mellitus) with complications E11.8 ; Essential hypertension I10 ; Gastroesophageal reflux disease, esophagitis presence not specified K21.9 ; Hyperlipidemia, unspecified hyperlipidemia type E78.5 ; Tobacco abuse Z72.0 ; Vitamin D deficiency E55.9 ; History of CVA with residual deficit I69.30 and Seasonal allergic rhinitis due to pollen J30.[address] [address] 1482 Sep, [facility] [address] [place] [id number] [address] Aug, [facility] [id number] [place] [address] 34133 -2716 Aug, Dysuria R30.0 ; Acute cystitis with hematuria N30.01 and Middle ear effusion, right H65.91 [facility] [address] [place] [id number] [address]- 7943 Aug, Other complicated headache syndrome G44.59 [facility] [address] [place] [id number] [place] [address] 17106- 4740 Aug, DM (diabetes mellitus) with complications E11.8 [facility] [address] [place] [id number] [place] [address] 17715- 5293 Aug, Dysuria R30.0 [facility] [address] [place] [id number] [place] [address] 78466- 1192 Aug, Dysuria R30.0 [facility] [address] [place] [id number] [place] [address] 41179- 0388 Aug, [facility] [id number] [place] [address] 83774- 2135 July, [facility] [address] [address] 6813 July, [facility] [address] [place] [id number] [address]- 4959 July, DM (diabetes mellitus) with complications E11.8 [facility] [address] [place] [id number] [place] [address] 55626- 9065 July, Other complicated headache syndrome G44.59 [facility] [address] [address]- 6645 July, [facility] [address] [place] [id number] [place] [address] 46776 -9853 July, Dysuria R30.0 and Acute cystitis with hematuria N30.01 [facility] [address] 59074- 9813 July, [facility] [address] [place] [id number] [place] [address] 78793- 0751 July, Other complicated headache syndrome G44.59 [facility] [address] 90835 -3478 Jun, Exposure to strep throat Z20.818 and Acute upper respiratory infection, unspecified J06.9 [facility] [address] 38249- 6531 Jun, [facility] [address] 67830- 1400 Jun, 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 and Gastroesophageal reflux disease, esophagitis presence not specified K21.9 [facility] [address] [place] [id number] [place] [address] 14488- 0457 Jun, [facility] [address] [place] [id number] [place] [address] 34256- 9656 Jun, Dizziness R42 [facility] [address] [place] [id number] [place] [address] 95996 -3932 Jun, [facility] [address] [place] [id number] [place] [address] 10501- 8702 Jun, [facility] [address] [place] [id number] [place] [address] 67102 -0357 May, Seasonal allergic rhinitis, unspecified allergic rhinitis trigger J30.2 [facility] [address] [place] [id number] [place] [address] 03138- 0109 May, [facility] [address] [place] [id number] [place] [address] 50188- 8430 May, DM (diabetes mellitus) with complications E11.8 [...] Seasonal allergic rhinitis due to pollen J30.1 [facility] [address] 28830- 0859 May, Gastroesophageal reflux disease, esophagitis presence not specified K21.9 [facility] [address] [place] [id number] [place] [address] 58158- 0706 May, [place] [address] [place] [id number] [place] [address] 05233- 9336 Apr, [place] [address] [place] [id number] [place] [address] 38721- 8998 Apr, [facility] [address] [place] [id number] [place] [address] 88179- 8501 Mar, [place] [address] [place] [id number] [place] [address] 33808- 8942 Mar, [facility] [address] [place] [id number] [place] [address] 55118- 9552 Mar, [facility] [address] [place] [id number] [place] [address] 04571- 3673 Mar, [facility] [address] [place] [id number] [place] [address] 58334- 4026 Feb, [facility] [address] [place] [id number] [place] [address] 83830- 6767 Feb, [facility] [address] [place] [id number] [place] [address] 74171- 3939 Feb, [facility] [address] [place] [id number] [place] [address] 41165- 7673 Feb, Major depressive disorder, recurrent episode, moderate F33.1 ; Generalized anxiety disorder F41.1 ; Essential hypertension I10 ; DM ( diabetes mellitus) with complications E11.8 ; Hyperlipidemia, unspecified hyperlipidemia type E78.5 ; 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 and Gastroesophageal reflux disease, esophagitis presence not specified K21.9 [facility] [id number] [place] [address] 94292 -3918 Feb, Other viral agents as the cause of diseases classified elsewhere B97.89 and Acute upper respiratory infection, unspecified J06.9 [facility] [address] [place] [id number] [place] [address] 01436- 1769 Jan, [place] [address] 35397- 7003 Jan, [facility] [address] [place] [id number] [place] [address] 79810 -6170 Jan, Acute bronchitis, unspecified organism J20.9 [place] [address] [place] [id number] [place] [address] 12029- 8557 Jan, [place] [address] [place] [id number] [place] [address] 83602- 0059 Jan, History of CVA with residual deficit I69.30 [place] [address] [place] [id number] [place] [address] 67339- 0076 Jan, [place] [address] [place] [id number] [place] [address] 53556- 9873 Jan, Acute bronchitis, unspecified organism J20.9 [facility] [address] [place] [id number] [place] [address] 36874- 3957 Jan, [place] [address] 83018- 5921 Dec, History of CVA with residual deficit I69.30 [place] [address] [place] [id number] [place] [address] 38895- 6303 Dec, [place] [address] [place] [id number] [place] [address] 70676- 7177 Dec, Other chronic pain G89.29 ; DM (diabetes mellitus) with complications E11.8 and History of CVA with residual deficit I69.30 [address] [place] [address] 20953- 4138 Nov, Major depressive disorder, recurrent episode, moderate F33.1 ; Irregular heart rhythm I49.9 ; Essential hypertension I10 ; History of CVA with residual deficit I69.30 ; DM (diabetes mellitus) with complications E11.8 ; Gastroesophageal reflux disease, esophagitis presence not specified K21.9 ; Hyperlipidemia, unspecified hyperlipidemia type E78.5 ; 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 ; Other chronic pain G89.29 and Generalized anxiety disorder F41.[address] [place] [address] 68581- 4576 Oct, Generalized anxiety disorder F41.1 ; Major depressive disorder, recurrent episode, moderate F33.1 ; Essential hypertension I10 ; History of CVA with residual deficit I69.30 ; DM (diabetes mellitus) with complications E11.8 ; Gastroesophageal reflux disease, esophagitis presence not specified K21.9 ; Hyperlipidemia, unspecified hyperlipidemia type E78.5 ; Other chronic pain G89.29 and Bacterial conjunctivitis of left eye H10.9 [address] [place] [address] 47065- 9474 Sep, Chronic pain syndrome G89.4 and DM (diabetes mellitus) with complications E11.8 [address] [place] [address] 91203- 9859 Sep, Irregular heart rhythm I49.9 ; Routine health maintenance Z00.00 ; Essential hypertension I10 ; History of CVA with residual deficit I69.30 ; Gastroesophageal reflux disease, esophagitis presence not specified K21.9 ; DM (diabetes mellitus) with complications E11.8 ; Hyperlipidemia, unspecified hyperlipidemia type E78.5 and Other complicated headache syndrome G44.59 [address] [address]- 5999 Jun, [place] [id number] [place] [address]- 4670 Jun, [facility] [address] [facility] [id number] [place] Aug, [facility] [address] [facility] [id number] [place] Jun, IMMUNIZATIONS No Known Immunizations SOCIAL HISTORY Never Assessed REASON FOR VISIT Sore throat, ears plugged, dry cough, green mucous JStrasserRN PLAN OF CARE Activity Details Follow Up prn Reason: VITAL SIGNS Height 62 in 2017-02-24 Weight 203.0 lbs 2017-02-24 Temperature 97.8 degrees Fahrenheit 2017-02-24 Heart Rate 92 bpm 2017-02-24 Respiratory Rate 22 2017-02-24 BMI 37.13 kg/m2 2017-02-24 Blood pressure systolic 110 mmHg 2017-02-24 Blood pressure diastolic 70 mmHg 2017-02-24 MEDICATIONS Medication Instructions Dosage Frequency Start Date End Date Duration Status ASA Oral Once a day 1 tab 24h 90 days Active Bath/Shower Seat 1 please provide one adult shower seat for patient use one time shower/bath seat for bathing Dec, Active Fluticasone Propionate 50 MCG/ACT Nasally Once a day 1 spray in each nostril 24h Feb, 30 day(s) Active Xanax 1 MG Orally 4 times a day 1 tablet 6h 28 days Active Fenofibrate 54 Orally Once a day 1 tablet with a meal 24h 90 Active Naproxen 500 mg Orally bid prn 1 tablet Sep, 90 days Active ProAir HFA 108 (90 Base) MCG/ACT Inhalation every 6 hrs 2 puffs as needed 6h 04 Jan, 2017 7 days Active Metoprolol Tartrate 25 MG Orally Twice a day 1 tablet with food 12h 90 days Active Diflucan 150 MG Orally One time 1 tablet Jan, Active Onglyza 5 mg Orally Once a day 1 tablet 24h Dec, 90 days Active Diltiazem HCl ER 120 MG Orally Once a day 1 capsule on an empty stomach in the morning 24h 90 days Active Canagliflozin 100 mg Orally Once a day 1 tablet 24h 10 Dec, 2016 Mar, 30 day(s) Active CompAir Nebulizer - as directed Feb, 30 days Active Pen Seward 31G X 5 MM subcutaneously Once a day as directed 24h Jan, 90 days Active Lancets - Active Triamcinolone Acetonide 0.1 % oral lesion twice a day 1 application at bedtime 12h Nov, 07 days Active One Touch/One Touch II Starter 1 glucometer subcutaneously 3 times a day to take blood sugars daily Dispense as insurance allows 8h Sep, Active Potassium Chloride ER 10 TAKE ONE TABLET BY MOUTH TWICE A DAY WITH FOOD 90 Active Plavix 75 MG Orally Once a day 1 tablet 24h 90 days Active OneTouch Delica Lancets 33G 33 TEST BLOOD SUGAR THREE TIMES A DAY E11.8 30 Active Hydrochlorothiazide 25 MG Orally Once a day 1 tablet 24h 90 days Active Azithromycin 250 MG Orally Once a day 2 tablets on the first day, then 1 tablet daily for 4 days 24h Feb, Feb, 5 day(s) Active Test strips 8h Active Carafate 1 GM Orally Twice a day 1 tablet on an empty stomach 12h May, 30 days Active Atorvastatin Calcium 80 MG Orally Once a day 1 tablet 24h 90 days Active ProAir HFA 108 (90 Base) MCG/ACT Inhalation every 4 hrs prn 2 puffs as needed Nov, Active Hydrocodone-Acetaminophen 10-325 MG Orally every 6 hrs 1 tablet as needed 6h Feb, 28 days Active Albuterol Sulfate 0.63 MG/3ML Inhalation every 6 hrs 3 ml as needed 6h Feb, 30 days Active Walker - as directed Jan, Active MetFORMIN HCl ER 750 MG Orally twice a day 1 tablet 12h 90 days Active Pantoprazole Sodium 20 mg Orally 2 times a day 1 tablets 12h May, 90 days Active Levemir Flexpen 100 UNIT/ML Subcutaneous at hs 25 units 90 days Active RESULTS No Results PROCEDURES Procedure Date Ordered Result Body Site [facility] VISIT ESTABLISHED PATIENT Feb 24, 2017 INSTRUCTIONS MEDICATIONS ADMINISTERED No Known Medications MEDICAL (GENERAL) HISTORY Type Description Date Medical History diabetes mellitus Medical History hyperlipidemia Medical History hypertension Medical History Anxiety disorder Medical History Blood Clotting Disorder- Dr Galvan at [facility] Medical History Possible Anemia (currently under work up) - Dr Galvan [facility] Medical History irregular heart beat-sees [...] Has been hospitalized at then transfered to [facility]. 2014 Hospitalization History Child Hospitalization History abd pain and shakiness - [facility] visit [facility] Hospitalization History [facility] ED for URI 04/16/17 Hospitalization History via [facility] 08/16/17
--- OUTSIDE RECORDS SUMMARY | 2017-11-04 16:46 | XMS REPORT ---
Author Author GAYE SOTERO Organization [facility] Address [address] [place] [address] Care Team Providers Care Phd Internship Name Role Phone HUIZARSOTERO Cox Unavailable PROBLEMS Type Condition ICD9-CM Code QGA87-RJ Code Onset Dates Condition Status SNOMED Code Problem Other chronic pain G89.29 Active 95440417 Problem Tobacco abuse counseling Z71.6 Active 110806789 Problem Tobacco abuse Z72.0 Active 302856007 Problem Acute non intractable tension-type headache G44.209 Active 801894645 Problem Chronic pain syndrome G89.4 Active 289907873 Problem History of CVA with residual deficit I69.30 Active 460483646 Problem Seasonal allergic rhinitis due to pollen J30.1 Active 74201373 Problem Type 2 diabetes mellitus with hyperglycemia E11.65 Active 01695643 Problem 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.4 Active 974359735 Problem Major depressive disorder, recurrent episode, moderate F33.1 Active 200730105 Problem Elevated liver enzymes R74.8 Active 124151310 Problem Vitamin D deficiency E55.9 Active 65318066 Problem Gastroesophageal reflux disease, esophagitis presence not specified K21.9 Active 519299797 Problem Essential hypertension I10 Active 11763807 Problem Generalized anxiety disorder F41.1 Active 79567722 Problem Hyperlipidemia, unspecified hyperlipidemia type E78.5 Active 12247359 Problem 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 Active 856951406 Problem 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 Active 31143579 ALLERGIES Substance Reaction Event Type Date Status Penicillin V Potassium Unknown Drug Allergy Feb, Active Erythromycin Base Unknown Drug Allergy Feb, Active Codeine Unknown Drug Allergy Feb, Active ENCOUNTERS Encounter Location Date Diagnosis [facility] [id number], [place] [address] Aug, Acute cystitis with hematuria N30.01 and Candidal dermatitis B37.2 [facility] [id number] [place] [address] 55108- 9301 Aug, Dysuria R30.0 [place] [facility] [id number] [place] [address] 14233- 8262 Aug, [facility] [id number] [place] [address] 82602 -0161 Aug, Dysuria R30.0 [place] [address] 99791- 7735 Aug, [place] [id number] [place] [address] 01029- 7161 July, Cervicalgia M54.2 ; Acute non intractable tension-type headache G44.209 ; Type 2 diabetes mellitus with hyperglycemia E11.65 and 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.4 [place] [id number] [place] [address] 55048- 0466 July, Generalized anxiety disorder F41.1 and Chronic pain syndrome G89.4 [place] [id number] [place] [address] 86581- 8740 July, Abscess L02.91 [place] [id number] [place] [address] 12089- 0670 July, [place] [id number] [place] [address] 60263- 8426 July, [place] [id number] [place] [address] 98710- 3847 July, Type 2 diabetes mellitus with hyperglycemia [...] pain syndrome G89.4 and Vaginal candidiasis B37.3 [place] [address] 10402- 6375 Jun, Generalized anxiety disorder F41.1 and Other chronic pain G89.29 [place] [address] 39434- 3612 Jun, [place] [address] 40035- 0388 Jun, [place] [address] 80408- 7249 Jun, Abnormal levels of other serum enzymes R74.8 [place] [address] 91841- 9897 Jun, Abnormal levels of other serum enzymes R74.8 [place] [address] 56504- 7474 Jun, Elevated liver enzymes R74.8 [place] [address] 64210- 9428 Jun, Elevated liver enzymes R74.8 [place] [address] 89635- 2390 30 May, 2017 Right upper quadrant pain R10.11 ; Cervicalgia M54.2 and High risk medication use Z79.899 [place] [address] 04725- 8819 May, Generalized anxiety disorder F41.1 and Other chronic pain G89.29 [place] [address] 80978- 3245 May, Canker sores oral K12.0 [place] [address] 11924- 3565 May, Generalized anxiety disorder F41.1 and Other chronic pain G89.29 [place] [address] [place] [address] May, [facility] [id number] [place] [address] 80205- 7453 Apr, [facility] [id number] [place] [address] 97636 -9713 Apr, Acute cystitis with hematuria N30.01 and Dysuria R30.0 [facility] [address] 68257- 7948 Apr, [facility] [address] 38661- 1613 Apr, [facility] [address] 76812- 6682 Apr, DM (diabetes mellitus) with complications E11.8 [place] [address] 71013- 4146 Apr, DM (diabetes mellitus) with complications E11.8 [facility] [id number] [place] [address] 23085- 0838 Apr, [facility] [address] 65640- 6515 Apr, [facility] [id number] [place] [address] 91317- 0118 Apr, Other chronic pain G89.29 ; Generalized anxiety disorder F41.1 ; Cervicalgia M54.2 and Controlled substance agreement signed Z79.899 [facility] [id number] [place] [address]10 [address] Mar, Abdominal pain R10.9 and Viral gastroenteritis A08.4 [facility] [id number] [place] [address] 37310- 9513 Mar, [facility] [id number] [place] [address] 13856- 7747 Mar, [place] [place] [address] 22144- 7543 Mar, DM (diabetes mellitus) with complications E11.8 ; Type 2 diabetes mellitus with hyperglycemia E11.65 ; 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 ; Essential hypertension I10 ; Bronchitis J40 ; Major depressive disorder , recurrent episode, moderate F33.1 ; Hyperlipidemia, unspecified hyperlipidemia type E78.5 ; Tobacco abuse Z72.0 ; Tobacco abuse counseling Z71.6 ; History of CVA with residual deficit I69.30 ; Gastroesophageal reflux disease, esophagitis presence not specified K21.9 and 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 [place] [address] 33693- 4772 Mar, [place] [address] 76609- 3659 Mar, DM (diabetes mellitus) with complications E11.8 ; Abnormal lung sounds R09.89 ; Bronchitis J40 and Hyperlipidemia, unspecified hyperlipidemia type E78.5 [facility] [address] 23447 -9545 Mar, URI, acute J06.9 [place] [address] 00591- 1779 Mar, [place] [address] 49793- 6746 Mar, DM (diabetes mellitus) with complications E11.8 [place] [address] 41331- 1893 Mar, Other chronic pain G89.29 and Generalized anxiety disorder F41.1 [place] [address] 75143- 0816 Feb, [address] 28628- 7897 Feb, Mass of left lung R91.8 and Cervicalgia M54.[address] 35580- 6154 Feb, [facility] [address] 91793- 9273 Feb, [facility] [address] 89779 -2676 Feb, Cough R05 and Bronchitis J40 [facility] [address] 85197 -1128 Feb, Acute nasopharyngitis J00 and Bronchitis J40 [facility] [address] 60557- 7416 Feb, Other chronic pain G89.29 and Generalized anxiety disorder F41.1 [place] [address] 45043- 0525 Jan, Encounter for immunization Z23 [facility] [address] 80296 -3059 Jan, [facility] [address] 47892 -8859 18 Jan, 2017 [facility] [address] 81396- 9516 16 Jan, 2017 Canker sores oral K12.0 [place] [address] 83014- 9008 14 Jan, 2017 [facility] [address] 27163- 6227 07 Jan, 2017 Other chronic pain G89.29 and Generalized anxiety disorder F41.1 [facility] [address] 34390- 0113 06 Jan, 2017 Cough R05 and Bronchitis J40 [facility] [address] 17416 -5314 Jan, Bronchitis J40 [facility] [address] 34223- 7225 Dec, Vitamin D deficiency E55.9 [place] [address] 59854- 1436 Dec, DM (diabetes mellitus) with complications E11.8 [place] [address] 24291- 6713 Dec, DM (diabetes mellitus) with complications E11.8 and Vitamin D deficiency E55.9 [place] [address] 39419- 9823 Dec, DM (diabetes mellitus) with complications E11.8 ; Essential hypertension I10 ; Hyperlipidemia, unspecified hyperlipidemia type E78.5 ; Vitamin D deficiency E55.9 ; Gastroesophageal reflux disease, esophagitis presence not specified K21.9 ; 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 ; Other chronic pain G89.29 ; Encounter for immunization Z23 and Generalized anxiety disorder F41.[address] 66198- 5438 12 Nov, 2016 History of CVA with residual deficit I69.30 [place] [address] 91843- 4017 11 Nov, 2016 DM (diabetes mellitus) with complications E11.8 [place] [address] 01636- 0440 06 Nov, 2016 Left otitis media with effusion H65.92 ; Bronchitis J40 and Canker sores oral K12.0 [place] [address] 26020- 5132 Oct, [place] [address] 30276- 1412 Oct, DM (diabetes mellitus) with complications E11.8 [place] [address] 56101- 7680 Oct, [place] [address] 92680- 9623 Sep, DM (diabetes mellitus) with complications E11.8 [place] [id number] [place] [address] 39550- 8628 11 Sep, 2016 DM (diabetes mellitus) with complications E11.8 ; Essential hypertension I10 ; Gastroesophageal reflux disease, esophagitis presence not specified K21.9 ; Hyperlipidemia, unspecified hyperlipidemia type E78.5 ; Tobacco abuse Z72.0 ; Vitamin D deficiency E55.9 ; History of CVA with residual deficit I69.30 and Seasonal allergic rhinitis due to pollen J30.1 [facility] [address] 97777- 6926 Sep, [place] [address] 41947- 6044 Aug, [facility] [address] 62034 -9864 Aug, Dysuria R30.0 ; Acute cystitis with hematuria N30.01 and Middle ear effusion, right H65.91 [place] [address] 91841- 5814 Aug, Other complicated headache syndrome G44.59 [place] [address] 59703- 7148 19 Aug, 2016 DM (diabetes mellitus) with complications E11.8 [place] [id number] [place] [address] 79159- 5825 14 Aug, 2016 Dysuria R30.0 [place] [id number] [place] [address] 10887- 0380 Aug, Dysuria R30.0 [place] [address] 76648- 1860 Aug, [place] [address] 47701- 2223 July, [place] [address] 96950- 1594 July, [place] [address] 74684- 2438 July, DM (diabetes mellitus) with complications E11.8 [facility] [id number] [place] [address] 47975- 0622 July, Other complicated headache syndrome G44.59 [facility] [id number] [place] [address] 75357- 2880 July, [facility] [id number] [place] [address] 94270 -9175 July, Dysuria R30.0 and Acute cystitis with hematuria N30.01 [facility] [id number] [place] [address] 03574- 5590 July, [facility] [id number] [place] [address] 52050- 6362 July, Other complicated headache syndrome G44.59 [facility] [id number] [place] [address] 35852 -5720 Jun, Exposure to strep throat Z20.818 and Acute upper respiratory infection, unspecified J06.9 [facility] [id number] [place] [address] 43690- 0848 Jun, [facility] [id number] [place] [address] 58422- 6861 Jun, 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 and Gastroesophageal reflux disease, esophagitis presence not specified K21.9 [facility] [address] [place] [address] 80046- 3234 Jun, [facility] [id number] [place] [address] 12105- 5014 Jun, Dizziness R42 [facility] [id number] [place] [address] 89725 -6983 Jun, [facility] [id number] [place] [address] 20865- 0899 Jun, [facility] [id number] [place] [address] 12015 -6879 May, Seasonal allergic rhinitis, unspecified allergic rhinitis trigger J30.2 [facility] [id number] [place] [address] 23641- 8886 May, [facility] [id number] [place] [address] 26976- 6421 May, DM (diabetes mellitus) with complications E11.8 [...] Seasonal allergic rhinitis due to pollen J30.1 [facility] [id number] [place] [address] 23367- 0871 May, Gastroesophageal reflux disease, esophagitis presence not specified K21.9 [facility] [id number] [place] [address] 82896- 4445 May, [facility] [id number] [place] [address] 95794- 8454 Apr, [facility] [id number] [place] [address] 76897- 8488 Apr, [facility] [id number] [place] [address] 59824- 7058 Mar, [facility] [id number] [place] [address] 96208- 4935 Mar, [facility] [id number] [place] [address] 91011- 2895 Mar, [facility] [id number] [place] [address] 15601- 9849 Mar, [facility] [id number] [place] [address] 77086- 7852 Feb, [facility] [id number] [place] [address] 08303- 5721 Feb, [facility] [id number] [place] [address] 74873- 3400 Feb, [facility] [id number] [place] [address] 89827- 2039 Feb, Major depressive disorder, recurrent episode, moderate F33.1 ; Generalized anxiety disorder F41.1 ; Essential hypertension I10 ; DM ( diabetes mellitus) with complications E11.8 ; Hyperlipidemia, unspecified hyperlipidemia type E78.5 ; 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 and Gastroesophageal reflux disease, esophagitis presence not specified K21.9 [facility] [id number] [place] [address] 74995 -6242 Feb, Other viral agents as the cause of diseases classified elsewhere B97.89 and Acute upper respiratory infection, unspecified J06.9 [place] [id number] [place] [address] 90118- 0474 Jan, [facility] [id number] [place] [address] 88884- 7914 Jan, [facility] [id number] [place] [address] 81220 -0747 Jan, Acute bronchitis, unspecified organism J20.9 [place] [id number] [place] [address] 73190- 0284 Jan, [facility] [id number] [place] [address] 67085- 4179 Jan, History of CVA with residual deficit I69.30 [place] [address] 40048- 5088 Jan, [place] [id number] [place] [address] 66346- 5435 Jan, Acute bronchitis, unspecified organism J20.9 [facility] [address] [place] [address]- 7535 Jan, [place] [id number] [place] [address] 67242- 8517 Dec, History of CVA with residual deficit I69.30 [place] [id number] [place] [address] 52276- 0033 Dec, [place] [address] 59690- 0997 Dec, Other chronic pain G89.29 ; DM (diabetes mellitus) with complications E11.8 and History of CVA with residual deficit I69.30 [place] [id number] [place] [address] 45556- 3833 Nov, Major depressive disorder, recurrent episode, moderate F33.1 ; Irregular heart rhythm I49.9 ; Essential hypertension I10 ; History of CVA with residual deficit I69.30 ; DM (diabetes mellitus) with complications E11.8 ; Gastroesophageal reflux disease, esophagitis presence not specified K21.9 ; Hyperlipidemia, unspecified hyperlipidemia type E78.5 ; 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 ; Other chronic pain G89.29 and Generalized anxiety disorder F41.1 [place] [address] [place] [address] 78712- 8276 Oct, Generalized anxiety disorder F41.1 ; Major depressive disorder, recurrent episode, moderate F33.1 ; Essential hypertension I10 ; History of CVA with residual deficit I69.30 ; DM (diabetes mellitus) with complications E11.8 ; Gastroesophageal reflux disease, esophagitis presence not specified K21.9 ; Hyperlipidemia, unspecified hyperlipidemia type E78.5 ; Other chronic pain G89.29 and Bacterial conjunctivitis of left eye H10.9 [place] [id number] [place] [address] 12817- 0308 Sep, Chronic pain syndrome G89.4 and DM (diabetes mellitus) with complications E11.8 [place] [address] [place] [address] 23821- 0645 Sep, Irregular heart rhythm I49.9 ; Routine health maintenance Z00.00 ; Essential hypertension I10 ; History of CVA with residual deficit I69.30 ; Gastroesophageal reflux disease, esophagitis presence not specified K21.9 ; DM (diabetes mellitus) with complications E11.8 ; Hyperlipidemia, unspecified hyperlipidemia type E78.5 and Other complicated headache syndrome G44.59 [facility] [address] 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 PLAN OF CARE Activity Details Follow Up 4 Weeks Reason:follow up VITAL SIGNS Height 62 in 2017-03-17 Weight 199 lbs 2017-03-17 Temperature 98.3 degrees Fahrenheit 2017-03-17 Heart Rate 90 bpm 2017-03-17 Respiratory Rate 18 2017-03-17 BMI 36.39 kg/m2 2017-03-17 Blood pressure systolic 100 mmHg 2017-03-17 Blood pressure diastolic 60 mmHg 2017-03-17 MEDICATIONS Medication Instructions Dosage Frequency Start Date End Date Duration Status Fluticasone Propionate 50 MCG/ACT Nasally Once a day 1 spray in each nostril 24h 20 Feb, 2016 30 day(s) Not-Taking Naproxen 500 mg Orally bid prn 1 tablet Sep, 90 days Active Hydrocodone-Acetaminophen 10-325 MG Orally every 6 hrs 1 tablet as needed 6h 07 Feb, 2017 28 days Active ASA Oral Once a day 1 tab 24h 90 days Active Xanax 1 MG Orally 4 times a day 1 tablet 6h 28 days Active Atorvastatin Calcium 80 MG Orally Once a day 1 tablet 24h 90 days Active Plavix 75 MG Orally Once a day 1 tablet 24h 90 days Active Pen Orient 31 gauge subcutaneously Once a day as directed 24h 90 Active Metoprolol Tartrate 25 MG Orally Twice a day 1 tablet with food 12h 90 days Active Carafate 1 GM Orally Twice a day 1 tablet on an empty stomach 12h May, 30 days Active Fenofibrate 54 Orally Once a day 1 tablet with a meal 24h 90 Active Pen Orient 31G X 5 MM subcutaneously Once a day as directed 24h Jan, 90 days Active Test strips 8h Active Albuterol Sulfate 0.63 MG/3ML Inhalation every 6 hrs 3 ml as needed 6h Feb, 30 days Not-Taking One Touch/One Touch II Starter 1 glucometer subcutaneously 3 times a day to take blood sugars daily Dispense as insurance allows 8h Sep, Active Levemir Flexpen 100 UNIT/ML Subcutaneous at hs 25 units 90 days Active Canagliflozin 100 mg Orally Once a day 1 tablet 24h 10 Dec, 2016 8 Mar, 2017 30 day(s) Not-Taking Hydrochlorothiazide 25 MG Orally Once a day 1 tablet 24h 90 days Active Pantoprazole Sodium 20 mg Orally 2 times a day 1 tablets 12h May, 90 days Active Diflucan 150 MG Orally One time 1 tablet Jan, Not-Taking ProAir HFA 108 (90 Base) MCG/ACT Inhalation every 6 hrs 2 puffs as needed 6h Jan, 7 days Not-Taking Lancets - Active Onglyza 5 mg Orally Once a day 1 tablet 24h 20 Dec, 2016 90 days Active Diltiazem HCl ER 120 MG Orally Once a day 1 capsule on an empty stomach in the morning 24h 90 days Active Baclofen 20 mg Orally 2 times a day if needed 1 tablet with food or milk Feb, Mar, 30 day(s) Active CompAir Nebulizer - as directed Feb, 30 days Not-Taking Triamcinolone Acetonide 0.1 % oral lesion twice a day 1 application at bedtime 12h Nov, 07 days Not-Taking MetFORMIN HCl ER 750 MG Orally twice a day 1 tablet 12h 90 days Active Nystatin 264931 UNIT/ML Mouth/Throat Four times a day 4 ml 6h Feb, Feb, 10 days Not-Taking Potassium Chloride ER 10 TAKE ONE TABLET BY MOUTH TWICE A DAY WITH FOOD 90 Active OneTouch Delica Lancets 33G 33 TEST BLOOD SUGAR THREE TIMES A DAY E11.8 30 Active [place] Saline Nasal Gel 1 Nasally 2 times a day apply thin layer to nares bilat 12h Feb, Feb, 12 months Not-Taking Bath/Shower Seat 1 please provide one adult shower seat for patient use one time shower/bath seat for bathing Dec, Active Walker - as directed Jan, Active ProAir HFA 108 (90 Base) MCG/ACT Inhalation every 4 hrs prn 2 puffs as needed Nov, Not-Taking RESULTS No Results PROCEDURES Procedure Date Ordered Result Body Site [facility] VISIT ESTABLISHED PATIENT Mar 17, 2017 INSTRUCTIONS MEDICATIONS ADMINISTERED No Known Medications MEDICAL (GENERAL) HISTORY Type Description Date Medical History diabetes mellitus Medical History hyperlipidemia Medical History hypertension Medical History Anxiety disorder Medical History Blood Clotting Disorder- Dr Galvan at [facility] Medical History Possible Anemia (currently under work up) - Dr Galvan [facility] Medical History irregular heart beat-sees dr. hassan Medical History history of pancreatitis Medical History gerd Medical History History of CVA with residual deficit Medical History Other complicated headache syndrome Medical History Stokes syndrome Surgical History tubal ligation Surgical History section Surgical History cholecystectomy Surgical History Toe Nail Removal x2 Hospitalization History Brain Stem Strokes x5. Has been hospitalized at then transfered to [place]. 2014 Hospitalization History Child Hospitalization History abd pain and shakiness - [facility] ED visit [facility] Hospitalization History [facility] ED for URI 04/16/17 Hospitalization History via [facility] er 08/16/17
--- OUTSIDE RECORDS SUMMARY | 2017-11-04 16:47 | XMS REPORT ---
Author Author GAYEMICHAELSOTERO Organization [facility] Address [address] [place] [address] Care Team Providers Care Merchandise Examiner Name Role Phone HUIZARSOTERO Cox Unavailable PROBLEMS Type Condition ICD9-CM Code CIB86-IY Code Onset Dates Condition Status SNOMED Code Problem Other chronic pain G89.29 Active 83485081 Problem Tobacco abuse counseling Z71.6 Active 285877316 Problem Tobacco abuse Z72.0 Active 857055685 Problem Acute non intractable tension-type headache G44.209 Active 227840564 Problem Chronic pain syndrome G89.4 Active 642483665 Problem History of CVA with residual deficit I69.30 Active 433921129 Problem Seasonal allergic rhinitis due to pollen J30.1 Active 38849916 Problem Type 2 diabetes mellitus with hyperglycemia E11.65 Active 92810922 Problem long-term current use of insulin Z79.4 Active 250571231 Problem Major depressive disorder, recurrent episode, moderate F33.1 Active 053183282 Problem Elevated liver enzymes R74.8 Active 340615468 Problem Vitamin D deficiency E55.9 Active 88271194 Problem Gastroesophageal reflux disease, esophagitis presence not specified K21.9 Active 932793036 Problem Essential hypertension I10 Active 18963906 Problem Generalized anxiety disorder F41.1 Active 13709806 Problem Hyperlipidemia, unspecified hyperlipidemia type E78.5 Active 48590887 Problem 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 Active 599422597 Problem 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 Active 71452678 ALLERGIES No Information ENCOUNTERS Encounter Location Date Diagnosis [facility] [address], [place] [address] Sep, [facility] [address], [place] [address] Aug, Dysuria R30.0 [facility] [id number] [place] [address] 81214- 1779 Aug, Generalized anxiety disorder F41.1 ; Chronic pain syndrome G89.4 and Dysuria R30.0 [place] [address] [address]- [address]15 Aug, Acute cystitis with hematuria N30.01 and Candidal dermatitis B37.2 [facility] [address] [place] [id number] [place] [address] 69141- 2112 Aug, Dysuria R30.0 [facility] [address] 30158- 2094 Aug, [facility] [address] [address] Aug, Dysuria R30.0 [place] [address] 00368- 7571 Aug, [place] [address] 08421- 7357 July, Cervicalgia M54.2 ; Acute non intractable tension-type headache G44.209 ; Type 2 diabetes mellitus with hyperglycemia E11.65 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 [place] [address] [place] [id number] [place] [address] 41326- 5511 July, Generalized anxiety disorder F41.1 and Chronic pain syndrome G89.4 [place] [address] [place] [id number] [place] [address] 61198- 3507 July, Abscess L02.91 [place] [address] [place] [id number] [place] [address] 49240- 7301 July, [place] [address] [place] [id number] [place] [address] 22836- 5005 July, [place] [address] [place] [id number] [place] [address] 21602- 3168 July, Type 2 diabetes mellitus with hyperglycemia E11.65 ; long-term current use of insulin Z79.4 ; Elevated [...] pain syndrome G89.4 and Vaginal candidiasis B37.3 [place] [address] 60040- 8473 Jun, Generalized anxiety disorder F41.1 and Other chronic pain G89.29 [place] [address] 55271- 0539 Jun, [place] [address] 45672- 5461 Jun, [place] [address] 64747- 0319 Jun, Abnormal levels of other serum enzymes R74.8 [place] [address] [place] [id number] [place] [address] 15078- 4256 Jun, Abnormal levels of other serum enzymes R74.8 [place] [address] [place] [id number] [place] [address] 16692- 0910 Jun, Elevated liver enzymes R74.8 [place] [address] 46964- 7196 Jun, Elevated liver enzymes R74.8 [place] [address] [place] [id number] [place] [address] 69143- 1836 May, Right upper quadrant pain R10.11 ; Cervicalgia M54.2 and High risk medication use Z79.899 [place] [address] [place] [id number] [place] [address] 17509- 7617 May, Generalized anxiety disorder F41.1 and Other chronic pain G89.29 [place] [address] [place] [address] [place] [address] 4809 May, Canker sores oral K12.0 [facility] [id number] [place] [address] 40962- 5358 May, Generalized anxiety disorder F41.1 and Other chronic pain G89.29 [facility] [id number] [place] [address] 19037- 4923 May, [facility] [id number] [place] [address] 39194- 0472 Apr, [facility] [address] 34946 -2972 Apr, Acute cystitis with hematuria N30.01 and Dysuria R30.0 [place] [address] [place] [id number] [place] [address] 56449- 2586 Apr, [facility] [id number] [place] [address] 16074- 7740 Apr, [facility] [id number] [place] [address] 46886- 8113 Apr, DM (diabetes mellitus) with complications E11.8 [facility] [address] [place] [id number] [place] [address] 45504- 3544 06 Apr, 2017 DM (diabetes mellitus) with complications E11.8 [facility] [address] [address] [id number] [place] [address] 28562- 7048 Apr, [facility] [id number] [place] [address] 60305- 3028 Apr, [facility] [address] [place] [id number] [place] [address] 09331- 4585 Apr, Other chronic pain G89.29 ; Generalized anxiety disorder F41.1 ; Cervicalgia M54.2 and Controlled substance agreement signed Z79.899 [facility] [id number] [place] [address] 94885 -7960 Mar, Abdominal pain R10.9 and Viral gastroenteritis A08.4 [place] [address] [place] [id number] [place] [address] 56432- 8551 Mar, [place] [address] [place] [id number] [place] [address] 18864- 0918 Mar, [place] [address] 63646- 3384 Mar, DM (diabetes mellitus) with complications E11.8 [...] not specified K21.9 and 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 [address]- 5840 Mar, [address] 27850- 5864 Mar, 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 ; Abnormal lung sounds R09.89 ; Bronchitis J40 and Hyperlipidemia, unspecified hyperlipidemia type E78.5 [facility] [id number] [place] [address] 69251 -2956 Mar, URI, acute J06.9 [place] [address] [place] [id number] [place] [address] 77803- 0178 Mar, [address] 69744- 1374 Mar, 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 [place] [address] [place] [id number] [place] [address] 68970- 0680 Mar, Other chronic pain G89.29 and Generalized anxiety disorder F41.[address] [place] [address]- 1529 Feb, [facility] [id number] [place] [address] 21464- 3687 Feb, Mass of left lung R91.8 and Cervicalgia M54.2 [facility] [address] [address]- [address] Feb, [facility] [address] 28101- 2081 Feb, [facility] [address] 55611 -0168 Feb, Cough R05 and Bronchitis J40 [facility] [address] 93086 -9166 07 Feb, 2017 Acute nasopharyngitis J00 and Bronchitis J40 [place] [address] 13754- 7004 06 Feb, 2017 Other chronic pain G89.29 and Generalized anxiety disorder F41.1 [facility] [address] 9[address]28- 3922 Jan, Encounter for immunization Z23 [facility] [address] 12647 -7246 Jan, [facility] [address] [place] [id number] [place] [address] 06552 -4947 18 Jan, 2017 [facility] [address] 81083- 5770 16 Jan, 2017 Canker sores oral K12.0 [place] [address] 14220- 3141 14 Jan, 2017 [facility] [address] 93457- 0100 07 Jan, 2017 Other chronic pain G89.29 and Generalized anxiety disorder F41.1 [facility] [address] 80884- 6109 Jan, Cough R05 and Bronchitis J40 [facility] [address] 832[address] -8101 Jan, Bronchitis J40 [facility] [id number] [place] [address] 20595- 6440 Dec, Vitamin D deficiency E55.9 [facility] [address] 82872- 7645 Dec, DM (diabetes mellitus) with complications E11.8 [place] [address] 84570- 4859 Dec, 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 and Vitamin D deficiency E55.9 [facility] [address] 10430- 5618 Dec, DM (diabetes mellitus) with complications E11.8 ; Essential hypertension I10 ; Hyperlipidemia, unspecified hyperlipidemia type E78.5 ; Vitamin D deficiency E55.9 ; Gastroesophageal reflux disease, esophagitis presence not specified K21.9 ; 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 ; Other chronic pain G89.29 ; Encounter for immunization Z23 and Generalized anxiety disorder F41.1 [place] [address] [place] [id number] [place] [address] 31513- 2062 Nov, History of CVA with residual deficit I69.30 [place] [address] 51309- 7089 Nov, 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 [place] [address] [place] [id number] [place] [address] 63815- 0577 06 Nov, 2016 Left otitis media with effusion H65.92 ; Bronchitis J40 and Canker sores oral K12.0 [place] [address] [place] [id number] [place] [address] 55697- 3868 Oct, [place] [address] 37288- 8202 Oct, DM (diabetes mellitus) with complications E11.8 [place] [address] [place] [id number] [place] [address] 89009- 9787 Oct, [place] [address] [place] [id number] [place] [address] 04351- 3185 Sep, DM (diabetes mellitus) with complications E11.8 [place] [address] 88956- 2550 Sep, 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 ; Essential hypertension I10 ; Gastroesophageal reflux disease, esophagitis presence not specified K21.9 ; Hyperlipidemia, unspecified hyperlipidemia type E78.5 ; Tobacco abuse Z72.0 ; Vitamin D deficiency E55.9 ; History of CVA with residual deficit I69.30 and Seasonal allergic rhinitis due to pollen J30.1 [place] [address] 63540- 2512 Sep, [place] [address] 98941- 2713 Aug, [facility] [address] 19425 -2552 Aug, Dysuria R30.0 ; Acute cystitis with hematuria N30.01 and Middle ear effusion, right H65.91 [place] [address] 26190- 9855 Aug, Other complicated headache syndrome G44.59 [place] [address] [place] [id number] [place] [address] 98945- 3383 Aug, DM (diabetes mellitus) with complications E11.8 [place] [address] 18549- 4157 14 Aug, 2016 Dysuria R30.0 [place] [address] [place] [id number] [place] [address] 38903- 5327 12 Aug, 2016 Dysuria R30.0 [place] [address] 08751- 4659 Aug, [facility] [address] [place] [address] 69432- 6768 July, [facility] [id number] [place] [address] 42025- 2788 July, [facility] [address] [id number] [place] [address] 58156- 6301 July, DM (diabetes mellitus) with complications E11.8 [facility] [id number] [place] [address] 67981- 1064 July, Other complicated headache syndrome G44.59 [facility] [id number] [place] [address] 39037- 6080 July, [facility] [id number] [place] [address] 21912 -9333 July, Dysuria R30.0 and Acute cystitis with hematuria N30.01 [facility] [id number] [place] [address] 54871- 2070 July, [facility] [id number] [place] [address] 30547- 7849 July, Other complicated headache syndrome G44.59 [facility] [address] [place] [address] 78961 -5909 Jun, Exposure to strep throat Z20.818 and Acute upper respiratory infection, unspecified J06.9 [facility] [id number] [place] [address] 29687- 0934 Jun, [facility] [id number] [place] [address] 16059- 7364 Jun, 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 and Gastroesophageal reflux disease, esophagitis presence not specified K21.9 [facility] [id number] [place] [address] 86955- 8744 Jun, [facility] [id number] [place] [address] 78940- 5469 Jun, Dizziness R42 [facility] [address] [id number] [place] [address] 54872 -4380 Jun, [facility] [id number] [place] [address] 36438- 5471 Jun, [facility] [id number] [place] [address] 32114 -9215 May, Seasonal allergic rhinitis, unspecified allergic rhinitis trigger J30.2 [facility] [address] 91825- 5098 May, [facility] [address] 22589- 6846 May, DM (diabetes mellitus) with complications E11.8 [...] Seasonal allergic rhinitis due to pollen J30.1 [facility] [id number] [place] [address] 97449- 7707 May, Gastroesophageal reflux disease, esophagitis presence not specified K21.9 [facility] [id number] [place] [address] 75512- 5354 May, [facility] [id number] [place] [address] 08224- 4146 Apr, [facility] [address] 14108- 8639 Apr, [facility] [id number] [place] [address] 86585- 1044 Mar, [facility] [address] 46972- 8111 Mar, [facility] [address], [place] [address]- 3847 Mar, [facility] [id number] [place] [address] 66176- 1281 Mar, [facility] [address] [id number] [place] [address] 41189- 6845 Feb, [facility] [id number] [place] [address] 79701- 8774 Feb, [facility] [id number] [place] [address] 31789- 5840 Feb, [place] [address] [place] [id number] [place] [address] 10622- 0820 Feb, Major depressive disorder, recurrent episode, moderate F33.1 ; Generalized anxiety disorder F41.1 ; Essential hypertension I10 ; DM ( diabetes mellitus) with complications E11.8 ; Hyperlipidemia, unspecified hyperlipidemia type E78.5 ; 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 and Gastroesophageal reflux disease, esophagitis presence not specified K21.9 [facility] [address] [address] [id number] [place] [address] 41823 -0217 Feb, Other viral agents as the cause of diseases classified elsewhere B97.89 and Acute upper respiratory infection, unspecified J06.9 [place] [address], [place] [address]- 6977 Jan, [facility] [address] [place] [address] 37640- 6034 Jan, [facility] [address] [place] [address] 91392 -3379 Jan, Acute bronchitis, unspecified organism J20.9 [facility] [address] [place] [address] 39152- 6885 Jan, [facility] [address], [place] [address]- 9170 Jan, History of CVA with residual deficit I69.30 [place] [address], [place] [address]- 8004 Jan, [place] [address] [place] [id number] [place] [address] 37859- 4771 Jan, Acute bronchitis, unspecified organism J20.9 [place] [address] [place] [address] 06074- 8688 Jan, [place] [address] [place] [id number] [place] [address] 74088- 9732 Dec, History of CVA with residual deficit I69.30 [place] [address] [place] [id number] [place] [address] 67238- 2328 Dec, [place] [address] [place] [address] 44786- 1296 Dec, Other chronic pain G89.29 ; 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 and History of CVA with residual deficit I69.30 [place] [address] [address]- 3223 Nov, Major depressive disorder, recurrent episode, moderate F33.1 ; Irregular heart rhythm I49.9 ; Essential hypertension I10 ; History of CVA with residual deficit I69.30 ; 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 ; Gastroesophageal reflux disease, esophagitis presence not specified K21.9 ; Hyperlipidemia, unspecified hyperlipidemia type E78.5 ; 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 ; Other chronic pain G89.29 and Generalized anxiety disorder F41.1 [place] [address] [address]- 5122 Oct, Generalized anxiety disorder F41.1 ; Major depressive disorder, recurrent episode, moderate F33.1 ; Essential hypertension I10 ; History of CVA with residual deficit I69.30 ; 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 ; Gastroesophageal reflux disease, esophagitis presence not specified K21.9 ; Hyperlipidemia, unspecified hyperlipidemia type E78.5 ; Other chronic pain G89.29 and Bacterial conjunctivitis of left eye H10.9 [address] [place] [address] 71242- 9208 Sep, Chronic pain syndrome G89.4 and DM (diabetes mellitus) with complications E11.8 [place] [address] [place] [address] 83527- 6446 Sep, Irregular heart rhythm I49.9 ; Routine health maintenance Z00.00 ; Essential hypertension I10 ; History of CVA with residual deficit I69.30 ; Gastroesophageal reflux disease, esophagitis presence not specified K21.9 ; DM (diabetes mellitus) with complications E11.8 ; Hyperlipidemia, unspecified hyperlipidemia type E78.5 and Other complicated headache syndrome G44.[address] 60555- 2850 Jun, [address] 31266- 0031 Jun, [address] 81871- 8262 Aug, [place] [id number] [place] [address] 22605- 6070 Jun, IMMUNIZATIONS No Known Immunizations SOCIAL HISTORY Never Assessed REASON FOR VISIT Medication refill request PLAN OF CARE VITAL SIGNS MEDICATIONS Medication Instructions Dosage Frequency Start Date End Date Duration Status Senna S 8.6-50 MG Orally twice a day 1 tablet 12h 6 Aug, 2017 30 days Active Levemir Flexpen 100 UNIT/ML Subcutaneous 2 times a day 35 units 12h 30 days Active RESULTS No Results PROCEDURES No Known procedures INSTRUCTIONS MEDICATIONS ADMINISTERED No Known Medications MEDICAL (GENERAL) HISTORY Type Description Date Medical History diabetes mellitus Medical History hyperlipidemia Medical History hypertension Medical History Anxiety disorder Medical History Blood Clotting Disorder- Dr Galvan at [facility] Medical History Possible Anemia (currently under work up) - Dr Galvan [facility] Medical History irregular heart beat-sees dr. hassan Medical History history of pancreatitis Medical History gerd Medical History History of CVA with residual deficit Medical History Other complicated headache syndrome Medical History Stokes syndrome Surgical History tubal ligation Surgical History section Surgical History cholecystectomy Surgical History Toe Nail Removal x2 Hospitalization History Brain Stem Strokes x5. Has been hospitalized at then transfered to [facility]. 2014 Hospitalization History Child Hospitalization History abd pain and shakiness - [facility] ED visit [facility] Hospitalization History [facility] ED for URI 04/16/17 Hospitalization History via [facility] er 08/16/17
--- OUTSIDE RECORDS SUMMARY | 2017-11-04 16:47 | XMS REPORT ---
Author Author GAYE SOTERO Organization [facility] [place] Address [address] [place] [address] Care Team Providers Care Council Member Name Role Phone HUIZARSOTERO Cox Unavailable PROBLEMS Type Condition ICD9-CM Code DUD68-PY Code Onset Dates Condition Status SNOMED Code Problem Other chronic pain G89.29 Active 59545363 Problem Tobacco abuse counseling Z71.6 Active 388197180 Problem Tobacco abuse Z72.0 Active 146471847 Problem Acute non intractable tension-type headache G44.209 Active 263759079 Problem Chronic pain syndrome G89.4 Active 882496161 Problem History of CVA with residual deficit I69.30 Active 387778326 Problem Seasonal allergic rhinitis due to pollen J30.1 Active 01558786 Problem Type 2 diabetes mellitus with hyperglycemia E11.65 Active 96505368 Problem [facility] current use of insulin Z79.4 Active 730690710 Problem Major depressive disorder, recurrent episode, moderate F33.1 Active 620575839 Problem Elevated liver enzymes R74.8 Active 383792818 Problem Vitamin D deficiency E55.9 Active 57629097 Problem Gastroesophageal reflux disease, esophagitis presence not specified K21.9 Active 692899024 Problem Essential hypertension I10 Active 43528744 Problem Generalized anxiety disorder F41.1 Active 24333668 Problem Hyperlipidemia, unspecified hyperlipidemia type E78.5 Active 16499008 Problem 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 Active 900247699 Problem 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 Active 56321847 ALLERGIES No Information ENCOUNTERS Encounter Location Date Diagnosis [facility] [place] [address], [place] [address] 11 Aug, 2017 Acute cystitis with hematuria N30.01 and Candidal dermatitis B37.2 [facility] [place] [id number], [place] [address] 08 Aug, 2017 Dysuria R30.0 [place] [id number], [place] [address] Aug, [facility] [id number] [place] [address] 70340 -0287 Aug, Dysuria R30.0 [facility] [place] [id number] [place] [address] 95263- 5177 Aug, [facility] [place] [id number] [place] [address] 78688- 9598 July, Cervicalgia M54.2 ; Acute non intractable tension-type headache G44.209 ; Type 2 diabetes mellitus with hyperglycemia E11.65 and [facility] current use of insulin Z79.4 [place] [id number] [place] [address] 07939- 3975 July, Generalized anxiety disorder F41.1 and Chronic pain syndrome G89.4 [place] [id number] [place] [address] 05291- 3421 July, Abscess L02.91 [place] [id number] [place] [address] 57676- 1899 July, [place] [id number] [place] [address] 56699- 5554 July, [place] [id number] [place] [address] 91565- 2376 July, Type 2 diabetes mellitus with hyperglycemia E11.65 ; [facility] current use of insulin Z79.4 ; Elevated [...] pain syndrome G89.4 and Vaginal candidiasis B37.3 [place] [id number] [address] Jun, Generalized anxiety disorder F41.1 and Other chronic pain G89.29 [facility] [place] [id number] [place] [address] 27869- 9017 Jun, [facility] [place] [id number] [place] [address] 18708- 2989 Jun, [facility] [place] [id number] [place] [address] 45214- 7214 Jun, Abnormal levels of other serum enzymes R74.8 [facility] [place] [id number] [place] [address] 04089- 9426 Jun, Abnormal levels of other serum enzymes R74.8 [facility] [place] [id number] [place] [address] 37780- 0448 Jun, Elevated liver enzymes R74.8 [facility] [place] [id number] [place] [address] 77518- 8494 Jun, Elevated liver enzymes R74.8 [facility] [place] [id number] [place] [address] 96350- 3581 May, Right upper quadrant pain R10.11 ; Cervicalgia M54.2 and High risk medication use Z79.899 [facility] [place] [address] [place] [address] 65969- 3962 May, Generalized anxiety disorder F41.1 and Other chronic pain G89.29 [facility] [place] [address] [place] [address] 37799- 0692 May, Canker sores oral K12.0 [facility] [place] [id number] [place] [address] 44729- 6606 May, Generalized anxiety disorder F41.1 and Other chronic pain G89.29 [facility] [place] [address] [place] [address] 23625- 1329 May, [facility] [place] [id number] [place] [address] 19477- 3051 Apr, [facility] [id number] [place] [address] 28337 -7126 Apr, Acute cystitis with hematuria N30.01 and Dysuria R30.0 [facility] [place] [id number] [place] [address] 77818- 3838 Apr, [place] [address] 46277- 2532 Apr, [facility] [place] [id number] [place] [address] 97327- 1414 Apr, DM (diabetes mellitus) with complications E11.8 [place] [id number] [place] [address] 79293- 7833 Apr, DM (diabetes mellitus) with complications E11.8 [place] [id number] [place] [address] 19919- 6935 Apr, [place] [id number] [place] [address] 78158- 8105 Apr, [place] [id number] [place] [address] 46797- 9984 Apr, Other chronic pain G89.29 ; Generalized anxiety disorder F41.1 ; Cervicalgia M54.2 and Controlled substance agreement signed Z79.899 [facility] [id number] [place] [address] 99486 -6215 Mar, Abdominal pain R10.9 and Viral gastroenteritis A08.4 [place] [id number] [place] [address] 30206- 4148 Mar, [place] [id number] [place] [address] 16936- 6924 Mar, [facility] [place] [id number] [place] [address] 16962- 3930 Mar, DM (diabetes mellitus) with complications E11.8 ; Type 2 diabetes mellitus with hyperglycemia E11.65 ; 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 ; Essential hypertension I10 ; Bronchitis J40 ; Major depressive disorder , recurrent episode, moderate F33.1 ; Hyperlipidemia, unspecified hyperlipidemia type E78.5 ; Tobacco abuse Z72.0 ; Tobacco abuse counseling Z71.6 ; History of CVA with residual deficit I69.30 ; Gastroesophageal reflux disease, esophagitis presence not specified K21.9 and 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 [place] [address] 20205- 8575 16 Mar, 2017 [place] [address] 33487- 0351 Mar, DM (diabetes mellitus) with complications E11.8 ; Abnormal lung sounds R09.89 ; Bronchitis J40 and Hyperlipidemia, unspecified hyperlipidemia type E78.5 [facility] [address] 43488 -8661 Mar, URI, acute J06.9 [place] [address] 65612- 8065 Mar, [place] [address] 64299- 2898 Mar, DM (diabetes mellitus) with complications E11.8 [place] [address] 26028- 2637 Mar, Other chronic pain G89.29 and Generalized anxiety disorder F41.1 [place] [address] 99788- 5257 Feb, [place] [address] 93770- 6722 Feb, Mass of left lung R91.8 and Cervicalgia M54.2 [place] [address] 72276- 3552 Feb, [place] [address] 22812- 8387 Feb, [facility] [address] 60986 -5731 Feb, Cough R05 and Bronchitis J40 [facility] [address] 61397 -8065 07 Feb, 2017 Acute nasopharyngitis J00 and Bronchitis J40 [facility] [place] [address] 89243- 2278 06 Feb, 2017 Other chronic pain G89.29 and Generalized anxiety disorder F41.1 [facility] [place] [address] 66403- 4847 Jan, Encounter for immunization Z23 [facility] [address] 40687 -8411 Jan, [facility] [address] 49962 -8726 18 Jan, 2017 [facility] [place] [address] 92458- 0771 16 Jan, 2017 Canker sores oral K12.0 [place] [address] 99386- 1902 14 Jan, 2017 [place] [address] 16933- 1225 07 Jan, 2017 Other chronic pain G89.29 and Generalized anxiety disorder F41.1 [facility] [place] [address] 80830- 1666 06 Jan, 2017 Cough R05 and Bronchitis J40 [facility] [address] 51688 -5293 Jan, Bronchitis J40 [facility] [place] [address] 11463- 8373 Dec, Vitamin D deficiency E55.9 [facility] [place] [address] 02076- 0141 Dec, DM (diabetes mellitus) with complications E11.8 [place] [address] 37293- 7167 19 Dec, 2016 DM (diabetes mellitus) with complications E11.8 and Vitamin D deficiency E55.9 [place] [address] 75122- 7141 10 Dec, 2016 DM (diabetes mellitus) with complications E11.8 ; Essential hypertension I10 ; Hyperlipidemia, unspecified hyperlipidemia type E78.5 ; Vitamin D deficiency E55.9 ; Gastroesophageal reflux disease, esophagitis presence not specified K21.9 ; 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 ; Other chronic pain G89.29 ; Encounter for immunization Z23 and Generalized anxiety disorder F41.1 [place] [address] 90638- 8493 12 Nov, 2016 History of CVA with residual deficit I69.[address] 54326- 3536 11 Nov, 2016 DM (diabetes mellitus) with complications E11.8 [place] [address] 34485- 2624 06 Nov, 2016 Left otitis media with effusion H65.92 ; Bronchitis J40 and Canker sores oral K12.0 [place] [address] 54952- 4385 Oct, [place] [address] 86557- 4260 Oct, DM (diabetes mellitus) with complications E11.8 [place] [address] 36646- 1065 Oct, [place] [address] 70504- 6067 Sep, DM (diabetes mellitus) with complications E11.8 [place] [address] 67009- 3785 Sep, DM (diabetes mellitus) with complications E11.8 ; Essential hypertension I10 ; Gastroesophageal reflux disease, esophagitis presence not specified K21.9 ; Hyperlipidemia, unspecified hyperlipidemia type E78.5 ; Tobacco abuse Z72.0 ; Vitamin D deficiency E55.9 ; History of CVA with residual deficit I69.30 and Seasonal allergic rhinitis due to pollen J30.1 [facility] [place] [id number] [place] [address] 97095- 7498 Sep, [facility] [place] [id number] [place] [address] 29248- 4677 Aug, [facility] [id number] [place] [address] 00212 -4135 Aug, Dysuria R30.0 ; Acute cystitis with hematuria N30.01 and Middle ear effusion, right H65.91 [facility] [place] [id number] [place] [address] 76106- 6175 Aug, Other complicated headache syndrome G44.59 [facility] [place] [id number] [place] [address] 57832- 7660 Aug, DM (diabetes mellitus) with complications E11.8 [place] [id number] [place] [address] 37561- 7305 14 Aug, 2016 Dysuria R30.0 [facility] [place] [id number] [place] [address] 10204- 3276 12 Aug, 2016 Dysuria R30.0 [facility] [place] [id number] [place] [address] 12036- 7652 Aug, [facility] [place] [id number] [place] [address] 42613- 9684 July, [place] [id number] [place] [address] 57795- 2541 July, [place] [id number] [place] [address] 93078- 6642 July, DM (diabetes mellitus) with complications E11.8 [facility] [place] [id number] [place] [address] 18681- 3588 July, Other complicated headache syndrome G44.59 [facility] [place] [id number] [place] [address] 42215- 9878 July, [facility] [id number] [place] [address] 95202 -9622 July, Dysuria R30.0 and Acute cystitis with hematuria N30.01 [facility] [place] [address] 33123- 4178 July, [facility] [place] [address] 12115- 7113 July, Other complicated headache syndrome G44.59 [facility] [id number] [place] [address] 44035 -3262 Jun, Exposure to strep throat Z20.818 and Acute upper respiratory infection, unspecified J06.9 [facility] [place] [id number] [place] [address] 47622- 3805 Jun, [facility] [place] [id number] [place] [address] 42907- 4362 Jun, DM (diabetes mellitus) 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 and Gastroesophageal reflux disease, esophagitis presence not specified K21.9 [facility] [place] [id number] [place] [address] 41976- 1310 Jun, [facility] [place] [id number] [place] [address] 00140- 3530 Jun, Dizziness R42 [facility] [id number] [place] [address] 00331 -5372 Jun, [facility] [place] [id number] [place] [address] 15612- 1317 Jun, [facility] [id number] [place] [address] 17937 -4506 May, Seasonal allergic rhinitis, unspecified allergic rhinitis trigger J30.2 [facility] [place] [id number] [place] [address] 63142- 9097 May, [facility] [place] [id number] [place] [address] 91823- 8013 May, DM (diabetes mellitus) with complications E11.8 [...] Seasonal allergic rhinitis due to pollen J30.1 [facility] [place] [id number] [place] [address] 90031- 5479 May, Gastroesophageal reflux disease, esophagitis presence not specified K21.9 [facility] [place] [id number] [place] [address] 68835- 6563 May, [facility] [place] [id number] [place] [address] 00305- 9740 Apr, [facility] [place] [id number] [place] [address] 34186- 9867 Apr, [facility] [place] [id number] [place] [address] 32306- 1549 Mar, [facility] [place] [id number] [place] [address] 20223- 9432 Mar, [facility] [place] [id number] [place] [address] 77621- 0933 Mar, [facility] [place] [id number] [place] [address] 54983- 3166 Mar, [facility] [place] [id number] [place] [address] 614063- 1264 Feb, [facility] [place] [id number] [place] [address] 47318- 0481 Feb, [facility] [place] [id number] [place] [address] 64366- 5459 Feb, [place] [address] 06138- 0802 Feb, Major depressive disorder, recurrent episode, moderate F33.1 ; Generalized anxiety disorder F41.1 ; Essential hypertension I10 ; DM ( diabetes mellitus) with complications E11.8 ; Hyperlipidemia, unspecified hyperlipidemia type E78.5 ; 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 and Gastroesophageal reflux disease, esophagitis presence not specified K21.9 [facility] [id number] [place] [address] 31879 -9067 Feb, Other viral agents as the cause of diseases classified elsewhere B97.89 and Acute upper respiratory infection, unspecified J06.9 [place] [address] 57551- 2424 Jan, [place] [address] 92682- 2825 Jan, [facility] [id number] [place] [address] 21954 -3712 Jan, Acute bronchitis, unspecified organism J20.9 [place] [id number] [place] [address] 17041- 7808 Jan, [place] [id number] [place] [address] 57427- 8700 Jan, History of CVA with residual deficit I69.30 [place] [id number] [place] [address] 52599- 6971 Jan, [place] [address] 28985- 6725 Jan, Acute bronchitis, unspecified organism J20.9 [place] [id number] [place] [address] 34339- 9010 Jan, [place] [address] [place] [address]- 4024 31 Dec, 2015 History of CVA with residual deficit I69.30 [place] [address] [place] [address] 32439- 3031 27 Dec, 2015 [place] [address] [place] [address] 78965- 2707 18 Dec, 2015 Other chronic pain G89.29 ; DM (diabetes mellitus) with complications E11.8 and History of CVA with residual deficit I69.30 [place] [address] [place] [address] 80404- 9704 Nov, Major depressive disorder, recurrent episode, moderate F33.1 ; Irregular heart rhythm I49.9 ; Essential hypertension I10 ; History of CVA with residual deficit I69.30 ; 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 ; Gastroesophageal reflux disease, esophagitis presence not specified K21.9 ; Hyperlipidemia, unspecified hyperlipidemia type E78.5 ; 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 ; Other chronic pain G89.29 and Generalized anxiety disorder F41.1 [place] [address] [place] [address] 20170- 7135 Oct, Generalized anxiety disorder F41.1 ; Major depressive disorder, recurrent episode, moderate F33.1 ; Essential hypertension I10 ; History of CVA with residual deficit I69.30 ; DM (diabetes mellitus) with complications E11.8 ; Gastroesophageal reflux disease, esophagitis presence not specified K21.9 ; Hyperlipidemia, unspecified hyperlipidemia type E78.5 ; Other chronic pain G89.29 and Bacterial conjunctivitis of left eye H10.9 [place] [id number] [address]- 8651 Sep, Chronic pain syndrome G89.4 and DM (diabetes mellitus) with complications E11.8 [place] [address] [place] [address] 43503- 7373 05 Sep, 2015 Irregular heart rhythm I49.9 ; Routine health maintenance Z00.00 ; Essential hypertension I10 ; History of CVA with residual deficit I69.30 ; Gastroesophageal reflux disease, esophagitis presence not specified K21.9 ; DM (diabetes mellitus) with complications E11.8 ; Hyperlipidemia, unspecified hyperlipidemia type E78.5 and Other complicated headache syndrome G44.59 [facility] [place] [address] [place] [address]- 3103 Jun, [facility] [place] [address] [place] [address] Jun, [facility] [place] [id number], [place] [address] Aug, [facility] [place] [id number] [address] Jun, IMMUNIZATIONS No Known Immunizations SOCIAL HISTORY [...] History Blood Clotting Disorder- Dr Galvan at [facility] Medical History Possible Anemia (currently under work up) - Dr Galvan [facility] Medical History irregular heart beat-sees dr. hassan Medical History history of pancreatitis Medical History gerd Medical History History of CVA with residual deficit Medical History Other complicated headache syndrome Medical History Stokes syndrome Surgical History tubal ligation Surgical History section Surgical History cholecystectomy Surgical History Toe Nail Removal x2 Hospitalization History Brain Stem Strokes x5. Has been hospitalized at then transfered to [place]. 2014 Hospitalization History Child Hospitalization History abd pain and shakiness - [facility] ED visit [facility] Hospitalization History [facility] ED for URI 04/16/17 Hospitalization History via [facility] 08/16/17
--- OUTSIDE RECORDS SUMMARY | 2017-11-04 16:48 | XMS REPORT ---
Author Author GAYEMICHAELSOTERO Organization [facility] Address [address] [place] [address] Care Team Providers Care Relief Map Modeler Name Role Phone HUIZARSOTERO Cox Unavailable PROBLEMS Type Condition ICD9-CM Code KID26-DN Code Onset Dates Condition Status SNOMED Code Problem Other chronic pain G89.29 Active 77462453 Problem Tobacco abuse counseling Z71.6 Active 177288396 Problem Tobacco abuse Z72.0 Active 836188429 Problem Acute non intractable tension-type headache G44.209 Active 607600091 Problem Chronic pain syndrome G89.4 Active 074167130 Problem History of CVA with residual deficit I69.30 Active 808861796 Problem Seasonal allergic rhinitis due to pollen J30.1 Active 10349404 Problem Type 2 diabetes mellitus with hyperglycemia E11.65 Active 71942782 Problem intermediate current use of insulin Z79.4 Active 723165829 Problem Major depressive disorder, recurrent episode, moderate F33.1 Active 713333338 Problem Elevated liver enzymes R74.8 Active 012352286 Problem Vitamin D deficiency E55.9 Active 18399606 Problem Gastroesophageal reflux disease, esophagitis presence not specified K21.9 Active 397213146 Problem Essential hypertension I10 Active 33860099 Problem Generalized anxiety disorder F41.1 Active 44717508 Problem Hyperlipidemia, unspecified hyperlipidemia type E78.5 Active 75117883 Problem 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 Active 879612586 Problem 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 Active 74214676 ALLERGIES No Information ENCOUNTERS Encounter Location Date Diagnosis [facility] [id number] [address] Sep, [facility] [id number], [place] [address] Aug, Dysuria R30.0 [facility] [id number] [place] [address] 97102- 5752 Aug, Generalized anxiety disorder F41.1 ; Chronic pain syndrome G89.4 and Dysuria R30.0 [place] [address] 97142- 9817 Aug, Acute cystitis with hematuria N30.01 and Candidal dermatitis B37.2 [facility] [id number] [place] [address] 37961- 3496 Aug, Dysuria R30.0 [facility] [address] 42256- 5583 Aug, [facility] [address] [address] Aug, Dysuria R30.0 [place] [address] 74768- 8597 Aug, [place] [address] 94757- 4340 July, Cervicalgia M54.2 ; Acute non intractable tension-type headache G44.209 ; Type 2 diabetes mellitus with hyperglycemia E11.65 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 [place] [id number] [place] [address] 05293- 6241 July, Generalized anxiety disorder F41.1 and Chronic pain syndrome G89.4 [place] [id number] [place] [address] 60669- 0601 July, Abscess L02.91 [place] [id number] [place] [address] 14801- 3772 July, [place] [id number] [place] [address] 88034- 3129 July, [place] [id number] [place] [address] 12989- 9469 July, Type 2 diabetes mellitus with hyperglycemia [...] G89.4 and Vaginal candidiasis B37.3 [place] [address] 36967- 1660 Jun, Generalized anxiety disorder F41.1 and Other chronic pain G89.29 [place] [address] 53756- 8475 Jun, [place] [address] 62789- 4667 Jun, [place] [address] 58619- 4447 Jun, Abnormal levels of other serum enzymes R74.8 [place] [id number] [place] [address] 80424- 5031 Jun, Abnormal levels of other serum enzymes R74.8 [place] [id number] [place] [address] 72659- 4380 Jun, Elevated liver enzymes R74.8 [place] [address] 83248- 1103 Jun, Elevated liver enzymes R74.8 [place] [id number] [place] [address] 58873- 7031 May, Right upper quadrant pain R10.11 ; Cervicalgia M54.2 and High risk medication use Z79.899 [place] [id number] [place] [address] 77687- 5021 May, Generalized anxiety disorder F41.1 and Other chronic pain G89.29 [place] [address] [place] [address] [place] [address] May, Canker sores oral K12.0 [facility] [id number] [place] [address] 11798- 7851 May, Generalized anxiety disorder F41.1 and Other chronic pain G89.29 [facility] [id number] [place] [address] 46172- 1743 May, [facility] [id number] [place] [address] 70751- 3096 Apr, [facility] [address] 15396 -3139 Apr, Acute cystitis with hematuria N30.01 and Dysuria R30.0 [place] [id number] [place] [address] 44634- 2937 Apr, [facility] [id number] [place] [address] 69023- 5399 Apr, [facility] [id number] [place] [address] 25154- 5004 Apr, DM (diabetes mellitus) with complications E11.8 [facility] [id number] [place] [address] 62810- 9629 06 Apr, 2017 DM (diabetes mellitus) with complications E11.8 [facility] [id number] [place] [address] 09698- 1030 Apr, [facility] [id number] [place] [address] 70135- 5215 Apr, [facility] [id number] [place] [address] 09158- 9348 Apr, Other chronic pain G89.29 ; Generalized anxiety disorder F41.1 ; Cervicalgia M54.2 and Controlled substance agreement signed Z79.899 [facility] [id number] [place] [address] 31316 -9721 Mar, Abdominal pain R10.9 and Viral gastroenteritis A08.4 [place] [id number] [place] [address] 70266- 3205 Mar, [place] [id number] [place] [address] 00656- 9839 Mar, [place] [address] 58757- 5299 Mar, DM (diabetes mellitus) with complications E11.8 ; Type 2 diabetes mellitus with hyperglycemia E11.65 ; intermediate current use of insulin Z79.4 ; Essential hypertension I10 ; Bronchitis J40 ; Major depressive disorder , recurrent episode, moderate F33.1 ; Hyperlipidemia, unspecified hyperlipidemia type E78.5 ; Tobacco abuse Z72.0 ; Tobacco abuse counseling Z71.6 ; History of CVA with residual deficit I69.30 ; Gastroesophageal reflux disease, esophagitis presence not specified K21.9 and 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 27570- 9753 Mar, [address] 53059- 3670 Mar, 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[address] [place] [address] Feb, [facility] [id number] [place] [address] 55950- 6656 Feb, Mass of left lung R91.8 and Cervicalgia M54.2 [facility] [address] 62335- 6878 Feb, [facility] [address] 06001- 7740 Feb, [facility] [address] 13825 -4490 Feb, Cough R05 and Bronchitis J40 [facility] [address] 66908 -8721 07 Feb, 2017 Acute nasopharyngitis J00 and Bronchitis J40 [place] [address] 84302- 1845 06 Feb, 2017 Other chronic pain G89.29 and Generalized anxiety disorder F41.1 [facility] [address] 83505- 8028 Jan, Encounter for immunization Z23 [facility] [address] 53411 -7647 Jan, [facility] [id number] [place] [address] 51052 -9589 18 Jan, 2017 [facility] [address] 79315- 9063 16 Jan, 2017 Canker sores oral K12.0 [place] [address] 64069- 4447 14 Jan, 2017 [facility] [address] 32230- 9462 07 Jan, 2017 Other chronic pain G89.29 and Generalized anxiety disorder F41.1 [facility] [address] 85877- 5049 Jan, Cough R05 and Bronchitis J40 [facility] [address] 84909 -6655 Jan, Bronchitis J40 [facility] [id number] [place] [address] 66805- 4281 Dec, Vitamin D deficiency E55.9 [facility] [address] 62394- 4113 Dec, DM (diabetes mellitus) with complications E11.8 [place] [address] 15454- 9608 Dec, DM (diabetes mellitus) with complications E11.8 and Vitamin D deficiency E55.9 [facility] [address] 41851- 2926 Dec, DM (diabetes mellitus) with complications E11.8 ; Essential hypertension I10 ; Hyperlipidemia, unspecified hyperlipidemia type E78.5 ; Vitamin D deficiency E55.9 ; Gastroesophageal reflux disease, esophagitis presence not specified K21.9 ; 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 ; Other chronic pain G89.29 ; Encounter for immunization Z23 and Generalized anxiety disorder F41.1 [place] [id number] [place] [address] 50701- 6172 Nov, History of CVA with residual deficit I69.30 [place] [address] 81221- 4253 Nov, DM (diabetes mellitus) with complications E11.8 [place] [id number] [place] [address] 08005- 4765 06 Nov, 2016 Left otitis media with effusion H65.92 ; Bronchitis J40 and Canker sores oral K12.0 [place] [id number] [place] [address] 08694- 1709 Oct, [place] [address] 20172- 2503 Oct, DM (diabetes mellitus) with complications E11.8 [place] [id number] [place] [address] 53061- 4197 Oct, [place] [id number] [place] [address] 69740- 7560 Sep, DM (diabetes mellitus) with complications E11.8 [place] [address] 66142- 7290 Sep, DM (diabetes mellitus) with complications E11.8 ; Essential hypertension I10 ; Gastroesophageal reflux disease, esophagitis presence not specified K21.9 ; Hyperlipidemia, unspecified hyperlipidemia type E78.5 ; Tobacco abuse Z72.0 ; Vitamin D deficiency E55.9 ; History of CVA with residual deficit I69.30 and Seasonal allergic rhinitis due to pollen J30.1 [place] [address] 76970- 9932 Sep, [place] [address] 34370- 9880 Aug, [facility] [address] 72094 -5488 Aug, Dysuria R30.0 ; Acute cystitis with hematuria N30.01 and Middle ear effusion, right H65.91 [place] [address] 73374- 3268 Aug, Other complicated headache syndrome G44.59 [place] [id number] [place] [address] 18202- 1097 Aug, DM (diabetes mellitus) with complications E11.8 [place] [address] 20663- 4447 14 Aug, 2016 Dysuria R30.0 [place] [id number] [place] [address] 45065- 0566 12 Aug, 2016 Dysuria R30.0 [place] [address] 29295- 0058 Aug, [facility] [id number] [place] [address] 30128- 3260 July, [facility] [id number] [place] [address] 29206- 2657 July, [facility] [id number] [place] [address] 36293- 4835 July, 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 [facility] [id number] [place] [address] 97803- 9980 July, Other complicated headache syndrome G44.59 [facility] [id number] [place] [address] 03298- 2628 July, [facility] [id number] [place] [address] 27834 -8776 July, Dysuria R30.0 and Acute cystitis with hematuria N30.01 [facility] [id number] [place] [address] 71949- 7278 July, [facility] [id number] [place] [address] 22807- 8541 July, Other complicated headache syndrome G44.59 [facility] [id number] [place] [address] 34038 -4365 Jun, Exposure to strep throat Z20.818 and Acute upper respiratory infection, unspecified J06.9 [facility] [id number] [place] [address] 49635- 8505 Jun, [facility] [id number] [place] [address] 41937- 9022 Jun, 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 and Gastroesophageal reflux disease, esophagitis presence not specified K21.9 [facility] [id number] [place] [address] 25494- 6636 Jun, [facility] [id number] [place] [address] 60321- 9215 Jun, Dizziness R42 [facility] [id number] [place] [address] 33007 -7636 Jun, [facility] [id number] [place] [address] 95799- 2872 Jun, [facility] [id number] [place] [address] 85433 -5088 May, Seasonal allergic rhinitis, unspecified allergic rhinitis trigger J30.2 [facility] [address] 27635- 7141 May, [facility] [address] 44459- 2430 May, DM (diabetes mellitus) with complications E11.8 [...] Seasonal allergic rhinitis due to pollen J30.1 [facility] [id number] [place] [address] 86268- 0905 May, Gastroesophageal reflux disease, esophagitis presence not specified K21.9 [facility] [id number] [place] [address] 01943- 6840 May, [facility] [id number] [place] [address] 89546- 4493 Apr, [facility] [address] 97244- 3331 Apr, [facility] [id number] [place] [address] 11322- 3919 Mar, [facility] [address] 89673- 9305 Mar, [facility] [address], [place] [address]- 4984 Mar, [facility] [id number] [place] [address] 36928- 1676 Mar, [facility] [id number] [place] [address] 74256- 2699 Feb, [facility] [id number] [place] [address] 17970- 8171 Feb, [facility] [id number] [place] [address] 97477- 6612 Feb, [place] [id number] [place] [address] 00408- 7121 Feb, Major depressive disorder, recurrent episode, moderate F33.1 ; Generalized anxiety disorder F41.1 ; Essential hypertension I10 ; DM ( diabetes mellitus) with complications E11.8 ; Hyperlipidemia, unspecified hyperlipidemia type E78.5 ; 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 and Gastroesophageal reflux disease, esophagitis presence not specified K21.9 [facility] [id number] [place] [address] 64707 -9030 Feb, Other viral agents as the cause of diseases classified elsewhere B97.89 and Acute upper respiratory infection, unspecified J06.9 [place] [address] [address]- 6123 Jan, [facility] [id number] [place] [address] 26718- 1430 Jan, [facility] [id number] [place] [address] 59945 -5574 Jan, Acute bronchitis, unspecified organism J20.9 [facility] [id number] [place] [address] 24571- 6098 Jan, [facility] [address] [address]- 0386 Jan, History of CVA with residual deficit I69.30 [place] [address], [place] [address]- 8491 Jan, [place] [id number] [place] [address] 04696- 8139 Jan, Acute bronchitis, unspecified organism J20.9 [place] [id number] [place] [address] 58155- 2974 Jan, [place] [id number] [place] [address] 13479- 7709 Dec, History of CVA with residual deficit I69.30 [place] [id number] [place] [address] 99722- 4064 Dec, [place] [id number] [place] [address] 59866- 6303 Dec, Other chronic pain G89.29 ; 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 and History of CVA with residual deficit I69.30 [place] [address] [address]- 2560 Nov, Major depressive disorder, recurrent episode, moderate F33.1 ; Irregular heart rhythm I49.9 ; Essential hypertension I10 ; History of CVA with residual deficit I69.30 ; 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 ; Gastroesophageal reflux disease, esophagitis presence not specified K21.9 ; Hyperlipidemia, unspecified hyperlipidemia type E78.5 ; 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 ; Other chronic pain G89.29 and Generalized anxiety disorder F41.1 [place] [address] [address]- 6989 Oct, Generalized anxiety disorder F41.1 ; Major depressive disorder, recurrent episode, moderate F33.1 ; Essential hypertension I10 ; History of CVA with residual deficit I69.30 ; 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 ; Gastroesophageal reflux disease, esophagitis presence not specified K21.9 ; Hyperlipidemia, unspecified hyperlipidemia type E78.5 ; Other chronic pain G89.29 and Bacterial conjunctivitis of left eye H10.9 [place] [id number] [place] [address] 35758- 4093 Sep, Chronic pain syndrome G89.4 and DM (diabetes mellitus) with complications E11.8 [place] [id number] [place] [address] 96545- 7495 Sep, Irregular heart rhythm I49.9 ; Routine health maintenance Z00.00 ; Essential hypertension I10 ; History of CVA with residual deficit I69.30 ; Gastroesophageal reflux disease, esophagitis presence not specified K21.9 ; DM (diabetes mellitus) with complications E11.8 ; Hyperlipidemia, unspecified hyperlipidemia type E78.5 and Other complicated headache syndrome G44.[address] 39279- 5321 Jun, [address] 71048- 3451 Jun, [place] [id number] [place] [address] 80486- 9434 Aug, [place] [id number] [place] [address] 26514- 5808 Jun, IMMUNIZATIONS No Known Immunizations SOCIAL HISTORY [...] been hospitalized at then transfered to [facility]. 2014 Hospitalization History Child Hospitalization History abd pain and shakiness - [facility] [place] [facility] visit [facility] Hospitalization History [facility] for URI 04/16/17 Hospitalization History via [facility] 08/16/17
--- OUTSIDE RECORDS SUMMARY | 2017-11-04 16:48 | XMS REPORT ---
Author Author GAYEMICHAELSOTERO Organization [facility] Address [address] [place] [address] Care Team Providers Care Commissioner Conservation Of Resources Name Role Phone HUIZARSOTERO Cox Unavailable PROBLEMS Type Condition ICD9-CM Code VGK18-KH Code Onset Dates Condition Status SNOMED Code Problem Other chronic pain G89.29 Active 69106949 Problem Tobacco abuse counseling Z71.6 Active 287749673 Problem Tobacco abuse Z72.0 Active 607869937 Problem Acute non intractable tension-type headache G44.209 Active 131031917 Problem Chronic pain syndrome G89.4 Active 643327343 Problem History of CVA with residual deficit I69.30 Active 938302481 Problem Seasonal allergic rhinitis due to pollen J30.1 Active 54971799 Problem Type 2 diabetes mellitus with hyperglycemia E11.65 Active 59240158 Problem jail current use of insulin Z79.4 Active 746473708 Problem Major depressive disorder, recurrent episode, moderate F33.1 Active 383769956 Problem Elevated liver enzymes R74.8 Active 559509291 Problem Vitamin D deficiency E55.9 Active 97848498 Problem Gastroesophageal reflux disease, esophagitis presence not specified K21.9 Active 420057561 Problem Essential hypertension I10 Active 19077575 Problem Generalized anxiety disorder F41.1 Active 99443467 Problem Hyperlipidemia, unspecified hyperlipidemia type E78.5 Active 19814507 Problem 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 Active 417751451 Problem 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 Active 34052563 ALLERGIES No Information ENCOUNTERS Encounter Location Date Diagnosis [facility] [address], [place] [address] Sep, [facility] [address], [place] [address] Aug, Dysuria R30.0 [facility] [id number] [place] [address] 99614- 8615 Aug, Generalized anxiety disorder F41.1 ; Chronic pain syndrome G89.4 and Dysuria R30.0 [place] [address] 23733- 6736 Aug, Acute cystitis with hematuria N30.01 and Candidal dermatitis B37.2 [facility] [id number] [place] [address] 82084- 8058 Aug, Dysuria R30.0 [facility] [address] 39853- 0457 Aug, [facility] [address] 24[address] -1188 Aug, Dysuria R30.0 [place] [address] 44096- 0287 Aug, [place] [address] [address]- [address]4 July, Cervicalgia M54.2 ; Acute non intractable tension-type headache G44.209 ; Type 2 diabetes mellitus with hyperglycemia E11.65 and foundation digger current use of insulin Z79.4 [place] [id number] [place] [address] 67192- 7783 July, Generalized anxiety disorder F41.1 and Chronic pain syndrome G89.4 [place] [id number] [place] [address] 85287- 9435 July, Abscess L02.91 [place] [id number] [place] [address] 87102- 2203 July, [place] [id number] [place] [address] 72645- 8161 July, [place] [id number] [place] [address] 54594- 5569 July, Type 2 diabetes mellitus with hyperglycemia [...] pain syndrome G89.4 and Vaginal candidiasis B37.3 [place] [address] 18585- 6909 Jun, Generalized anxiety disorder F41.1 and Other chronic pain G89.29 [place] [address] 94883- 8847 Jun, [place] [address] 74133- 0925 Jun, [place] [address] 68607- 2494 Jun, Abnormal levels of other serum enzymes R74.8 [place] [id number] [place] [address] 24173- 4939 Jun, Abnormal levels of other serum enzymes R74.8 [place] [id number] [place] [address] 49832- 8606 Jun, Elevated liver enzymes R74.8 [place] [address] 04152- 1869 Jun, Elevated liver enzymes R74.8 [place] [id number] [place] [address] 68761- 4315 May, Right upper quadrant pain R10.11 ; Cervicalgia M54.2 and High risk medication use Z79.899 [place] [id number] [place] [address] 52591- 5125 May, Generalized anxiety disorder F41.1 and Other chronic pain G89.29 [place] [address] [place] [address] [place] [address] May, Canker sores oral K12.0 [facility] [id number] [place] [address] 83769- 1049 May, Generalized anxiety disorder F41.1 and Other chronic pain G89.29 [facility] [id number] [place] [address] 06493- 7405 May, [facility] [id number] [place] [address] 57205- 6285 Apr, [facility] [address] 64440 -9997 Apr, Acute cystitis with hematuria N30.01 and Dysuria R30.0 [place] [id number] [place] [address] 40169- 1035 Apr, [facility] [id number] [place] [address] 62626- 9346 Apr, [facility] [id number] [place] [address] 43112- 6612 Apr, DM (diabetes mellitus) with complications E11.8 [facility] [id number] [place] [address] 61219- 9187 06 Apr, 2017 DM (diabetes mellitus) with complications E11.8 [facility] [id number] [place] [address] 89247- 4185 Apr, [facility] [id number] [place] [address] 65580- 0649 Apr, [facility] [id number] [place] [address] 79096- 4993 Apr, Other chronic pain G89.29 ; Generalized anxiety disorder F41.1 ; Cervicalgia M54.2 and Controlled substance agreement signed Z79.899 [facility] [id number] [place] [address] 74807 -8503 Mar, Abdominal pain R10.9 and Viral gastroenteritis A08.4 [place] [id number] [place] [address] 87037- 4410 Mar, [place] [id number] [place] [address] 04009- 6798 Mar, [place] [address] 03117- 5914 Mar, DM (diabetes mellitus) with complications E11.8 ; Type 2 diabetes mellitus with hyperglycemia E11.65 ; jail current use of insulin Z79.4 ; Essential hypertension I10 ; Bronchitis J40 ; Major depressive disorder , recurrent episode, moderate F33.1 ; Hyperlipidemia, unspecified hyperlipidemia type E78.5 ; Tobacco abuse Z72.0 ; Tobacco abuse counseling Z71.6 ; History of CVA with residual deficit I69.30 ; Gastroesophageal reflux disease, esophagitis presence not specified K21.9 and 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 83767- 6854 Mar, [address] 77812- 0477 Mar, 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 ; Abnormal lung sounds R09.89 ; Bronchitis J40 and Hyperlipidemia, unspecified hyperlipidemia type E78.5 [facility] [id number] [place] [address] 82890 -3636 Mar, URI, acute J06.9 [place] [id number] [place] [address] 22331- 8734 Mar, [address] 97932- 3157 Mar, 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 [address] 69114 -4183 Feb, Cough R05 and Bronchitis J40 [facility] [address] 80087 -8563 07 Feb, 2017 Acute nasopharyngitis J00 and Bronchitis J40 [place] [address] 06855- 0935 06 Feb, 2017 Other chronic pain G89.29 and Generalized anxiety disorder F41.1 [facility] [address] 84130- 0693 Jan, Encounter for immunization Z23 [facility] [address] 08520 -0589 Jan, [facility] [id number] [place] [address] 90048 -9706 18 Jan, 2017 [facility] [address] 23770- 9996 16 Jan, 2017 Canker sores oral K12.0 [place] [address] 81762- 4614 14 Jan, 2017 [facility] [address] 47395- 1138 07 Jan, 2017 Other chronic pain G89.29 and Generalized anxiety disorder F41.1 [facility] [address] 20146- 7647 Jan, Cough R05 and Bronchitis J40 [facility] [address] 13746 -0124 Jan, Bronchitis J40 [facility] [id number] [place] [address] 99495- 5314 Dec, Vitamin D deficiency E55.9 [facility] [address] 67616- 3281 Dec, DM (diabetes mellitus) with complications E11.8 [place] [address] 62694- 5012 Dec, 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 and Vitamin D deficiency E55.9 [facility] [address] 65930- 4101 Dec, 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 ; Essential hypertension I10 ; Hyperlipidemia, unspecified hyperlipidemia type E78.5 ; Vitamin D deficiency E55.9 ; Gastroesophageal reflux disease, esophagitis presence not specified K21.9 ; 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 ; Other chronic pain G89.29 ; Encounter for immunization Z23 and Generalized anxiety disorder F41.1 [place] [id number] [place] [address] 22970- 2062 Nov, History of CVA with residual deficit I69.30 [place] [address] 80960- 6265 Nov, DM (diabetes mellitus) with complications E11.8 [place] [id number] [place] [address] 96106- 2036 06 Nov, 2016 Left otitis media with effusion H65.92 ; Bronchitis J40 and Canker sores oral K12.0 [place] [id number] [place] [address] 05933- 2999 Oct, [place] [address] 03418- 1897 Oct, DM (diabetes mellitus) with complications E11.8 [place] [id number] [place] [address] 98109- 4767 Oct, [place] [id number] [place] [address] 72357- 3901 Sep, 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 [address] 31817 -4163 Aug, Dysuria R30.0 ; Acute cystitis with hematuria N30.01 and Middle ear effusion, right H65.91 [place] [address] 41073- 4588 Aug, Other complicated headache syndrome G44.59 [place] [id number] [place] [address] 14433- 9886 Aug, DM (diabetes mellitus) with complications E11.8 [place] [address] 67493- 3258 14 Aug, 2016 Dysuria R30.0 [place] [id number] [place] [address] 20794- 1715 12 Aug, 2016 Dysuria R30.0 [place] [address] 43661- 5907 Aug, [facility] [address] [place] [address] 90061- 8224 July, [facility] [id number] [place] [address] 32337- 9309 July, [facility] [id number] [place] [address] 74833- 3342 July, 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 [id number] [place] [address] 14275 -0291 July, Dysuria R30.0 and Acute cystitis with hematuria N30.01 [facility] [id number] [place] [address] 97277- 0269 July, [facility] [id number] [place] [address] 69052- 1858 July, Other complicated headache syndrome G44.59 [facility] [address] [place] [address] 35858 -4735 Jun, Exposure to strep throat Z20.818 and Acute upper respiratory infection, unspecified J06.9 [facility] [id number] [place] [address] 35855- 3758 Jun, [facility] [id number] [place] [address] 43563- 6578 Jun, 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 and Gastroesophageal reflux disease, esophagitis presence not specified K21.9 [facility] [id number] [place] [address] 03960- 0565 Jun, [facility] [id number] [place] [address] 82064- 7603 Jun, Dizziness R42 [facility] [id number] [place] [address] 22854 -4774 Jun, [facility] [id number] [place] [address] 81603- 4391 Jun, [facility] [id number] [place] [address] 84272 -0817 May, Seasonal allergic rhinitis, unspecified allergic rhinitis trigger J30.2 [facility] [address] 07319- 1101 May, [facility] [address] 81886- 2089 May, DM (diabetes mellitus) with complications E11.8 [...] due to pollen J30.1 [facility] [id number] [place] [address] 20868- 6611 May, Gastroesophageal reflux disease, esophagitis presence not specified K21.9 [facility] [id number] [place] [address] 58203- 5544 May, [facility] [id number] [place] [address] 84888- 3334 Apr, [facility] [address] 42571- 7775 Apr, [facility] [id number] [place] [address] 64987- 1654 Mar, [facility] [address] 99853- 9929 Mar, [facility] [address], [place] [address]- 9658 Mar, [facility] [id number] [place] [address] 87135- 5049 Mar, [facility] [id number] [place] [address] 29164- 4746 Feb, [facility] [id number] [place] [address] 27161- 3327 Feb, [facility] [id number] [place] [address] 14442- 7665 Feb, [place] [id number] [place] [address] 37680- 8151 Feb, Major depressive disorder, recurrent episode, moderate F33.1 ; Generalized anxiety disorder F41.1 ; Essential hypertension I10 ; DM ( diabetes mellitus) with complications E11.8 ; Hyperlipidemia, unspecified hyperlipidemia type E78.5 ; 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 and Gastroesophageal reflux disease, esophagitis presence not specified K21.9 [facility] [id number] [place] [address] 81289 -3993 Feb, Other viral agents as the cause of diseases classified elsewhere B97.89 and Acute upper respiratory infection, unspecified J06.9 [place] [address], [place] [address]- 0656 Jan, [facility] [address] [place] [address] 58795- 8245 Jan, [facility] [address] [place] [address] 75689 -0420 Jan, Acute bronchitis, unspecified organism J20.9 [facility] [address] [place] [address] 41363- 1445 Jan, [facility] [address], [place] [address]- 8664 Jan, History of CVA with residual deficit I69.30 [place] [address], [place] [address]- 7582 Jan, [place] [id number] [place] [address] 47016- 9989 Jan, Acute bronchitis, unspecified organism J20.9 [place] [address] [place] [address] 40292- 5644 Jan, [place] [id number] [place] [address] 46498- 2854 Dec, History of CVA with residual deficit I69.30 [place] [id number] [place] [address] 02876- 3893 Dec, [place] [address] [place] [address] 65772- 1378 Dec, Other chronic pain G89.29 ; 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 and History of CVA with residual deficit I69.30 [place] [address], [place] [address]- 9776 Nov, Major depressive disorder, recurrent episode, moderate F33.1 ; Irregular heart rhythm I49.9 ; Essential hypertension I10 ; History of CVA with residual deficit I69.30 ; 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 ; Gastroesophageal reflux disease, esophagitis presence not specified K21.9 ; Hyperlipidemia, unspecified hyperlipidemia type E78.5 ; 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 ; Other chronic pain G89.29 and Generalized anxiety disorder F41.1 [place] [address], [place] [address]- 3202 Oct, Generalized anxiety disorder F41.1 ; Major depressive disorder, recurrent episode, moderate F33.1 ; Essential hypertension I10 ; History of CVA with residual deficit I69.30 ; 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 ; Gastroesophageal reflux disease, esophagitis presence not specified K21.9 ; Hyperlipidemia, unspecified hyperlipidemia type E78.5 ; Other chronic pain G89.29 and Bacterial conjunctivitis of left eye H10.[address] [place] [address] 21645- 3181 Sep, Chronic pain syndrome G89.4 and DM (diabetes mellitus) with complications E11.8 [place] [id number] [place] [address] 46618- 6790 Sep, Irregular heart rhythm I49.9 ; Routine health maintenance Z00.00 ; Essential hypertension I10 ; History of CVA with residual deficit I69.30 ; Gastroesophageal reflux disease, esophagitis presence not specified K21.9 ; DM (diabetes mellitus) with complications E11.8 ; Hyperlipidemia, unspecified hyperlipidemia type E78.5 and Other complicated headache syndrome G44.[address] 35972- 5044 Jun, [address] 85425- 9346 Jun, [address] 84359- 3723 Aug, [address] 86231- 5653 Jun, IMMUNIZATIONS No Known Immunizations SOCIAL HISTORY Never Assessed REASON FOR VISIT [facility] ([facility]) note PLAN OF CARE VITAL SIGNS MEDICATIONS Unknown Medications RESULTS No Results PROCEDURES No Known procedures INSTRUCTIONS MEDICATIONS ADMINISTERED No Known Medications MEDICAL (GENERAL) HISTORY Type Description Date Medical History diabetes mellitus Medical History hyperlipidemia Medical History hypertension Medical History Anxiety disorder Medical History Blood Clotting Disorder- Dr Galvan at [facility] Medical History Possible Anemia (currently under work up) - Dr Galvan [facility] Medical History irregular heart beat-sees dr. hassan Medical History history of pancreatitis Medical History gerd Medical History History of CVA with residual deficit Medical History Other complicated headache syndrome Medical History Stokes syndrome Surgical History tubal ligation Surgical History section Surgical History cholecystectomy Surgical History Toe Nail Removal x2 Hospitalization History Brain Stem Strokes x5. Has been hospitalized at then transfered to [facility]. 2014 Hospitalization History Child Hospitalization History abd pain and shakiness - [facility] ED visit [facility] Hospitalization History [facility] ED for URI 04/16/17 Hospitalization History via [facility] 08/16/17
--- OUTSIDE RECORDS SUMMARY | 2017-11-04 16:49 | XMS REPORT ---
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 Name Role Phone HUIZARSOTERO Cox Unavailable PROBLEMS Type Condition ICD9-CM Code TDR68-OY Code Onset Dates Condition Status SNOMED Code Problem Other chronic pain G89.29 Active 08704391 Problem Tobacco abuse counseling Z71.6 Active 302993979 Problem Tobacco abuse Z72.0 Active 523956089 Problem Acute non intractable tension-type headache G44.209 Active 193607763 Problem Chronic pain syndrome G89.4 Active 979296817 Problem History of CVA with residual deficit I69.30 Active 708808690 Problem Seasonal allergic rhinitis due to pollen J30.1 Active 30391157 Problem Type 2 diabetes mellitus with hyperglycemia E11.65 Active 27906549 Problem [facility] current use of insulin Z79.4 Active 748543275 Problem Major depressive disorder, recurrent episode, moderate F33.1 Active 404907830 Problem Elevated liver enzymes R74.8 Active 678116887 Problem Vitamin D deficiency E55.9 Active 17234083 Problem Gastroesophageal reflux disease, esophagitis presence not specified K21.9 Active 526984811 Problem Essential hypertension I10 Active 02233689 Problem Generalized anxiety disorder F41.1 Active 98587496 Problem Hyperlipidemia, unspecified hyperlipidemia type E78.5 Active 93725717 Problem 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 Active 001940624 Problem 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 Active 93665297 ALLERGIES No Information ENCOUNTERS Encounter Location Date Diagnosis [facility] [address] [address] Sep, [facility] [address], [place] [address] Aug, Dysuria R30.0 [facility] [id number] [place] [address] 92607- 2043 Aug, Generalized anxiety disorder F41.1 ; Chronic pain syndrome G89.4 and Dysuria R30.0 [place] [address] [address]- [address] Aug, Acute cystitis with hematuria N30.01 and Candidal dermatitis B37.2 [facility] [id number] [place] [address] 89251- 6948 Aug, Dysuria R30.0 [facility] [address] 62440- 1764 Aug, [facility] [address] [address]59 Aug, Dysuria R30.0 [place] [address] 13193- 7756 Aug, [place] [address] 65825- 7023 July, Cervicalgia M54.2 ; Acute non intractable tension-type headache G44.209 ; Type 2 diabetes mellitus with hyperglycemia E11.65 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 [place] [id number] [place] [address] 62260- 3456 July, Generalized anxiety disorder F41.1 and Chronic pain syndrome G89.4 [place] [id number] [place] [address] 69668- 7417 July, Abscess L02.91 [place] [id number] [place] [address] 51159- 0964 July, [place] [id number] [place] [address] 62800- 7146 July, [place] [id number] [place] [address] 01307- 4735 July, Type 2 diabetes mellitus with hyperglycemia E11.65 ; [facility] current use of insulin Z79.4 ; Elevated [...] pain syndrome G89.4 and Vaginal candidiasis B37.3 [place] [address] 23421- 9326 Jun, Generalized anxiety disorder F41.1 and Other chronic pain G89.29 [place] [address] 01945- 7784 Jun, [place] [address] 12145- 1701 Jun, [place] [address] 23456- 8432 Jun, Abnormal levels of other serum enzymes R74.8 [place] [id number] [place] [address] 86518- 2266 Jun, Abnormal levels of other serum enzymes R74.8 [place] [id number] [place] [address] 34868- 0850 Jun, Elevated liver enzymes R74.8 [place] [address] 21926- 1727 Jun, Elevated liver enzymes R74.8 [place] [id number] [place] [address] 16643- 2237 May, Right upper quadrant pain R10.11 ; Cervicalgia M54.2 and High risk medication use Z79.899 [place] [id number] [place] [address] 23663- 8700 May, Generalized anxiety disorder F41.1 and Other chronic pain G89.29 [place] [address] [place] [address] May, Canker sores oral K12.0 [facility] [id number] [place] [address] 24905- 6151 May, Generalized anxiety disorder F41.1 and Other chronic pain G89.29 [facility] [id number] [place] [address] 56428- 7379 May, [facility] [id number] [place] [address] 68292- 4657 Apr, [facility] [address] 37282 -0158 Apr, Acute cystitis with hematuria N30.01 and Dysuria R30.0 [place] [id number] [place] [address] 42421- 6265 Apr, [facility] [id number] [place] [address] 99300- 5942 Apr, [facility] [id number] [place] [address] 79581- 3996 Apr, DM (diabetes mellitus) with complications E11.8 [facility] [id number] [place] [address] 23513- 2192 06 Apr, 2017 DM (diabetes mellitus) with complications E11.8 [facility] [id number] [place] [address] 59335- 7523 Apr, [facility] [id number] [place] [address] 18648- 3337 Apr, [facility] [id number] [place] [address] 52886- 7462 Apr, Other chronic pain G89.29 ; Generalized anxiety disorder F41.1 ; Cervicalgia M54.2 and Controlled substance agreement signed Z79.899 [facility] [id number] [place] [address] 77614 -2743 Mar, Abdominal pain R10.9 and Viral gastroenteritis A08.4 [place] [id number] [place] [address] 45043- 2339 Mar, [place] [id number] [place] [address] 48961- 9137 Mar, [place] [address] 67610- 7994 Mar, DM (diabetes mellitus) with complications E11.8 ; Type 2 diabetes mellitus with hyperglycemia E11.65 ; [facility] current use of insulin Z79.4 ; Essential hypertension I10 ; Bronchitis J40 ; Major depressive disorder , recurrent episode, moderate F33.1 ; Hyperlipidemia, unspecified hyperlipidemia type E78.5 ; Tobacco abuse Z72.0 ; Tobacco abuse counseling Z71.6 ; History of CVA with residual deficit I69.30 ; Gastroesophageal reflux disease, esophagitis presence not specified K21.9 and 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 68353- 6254 Mar, [address] 70204- 7564 Mar, 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 ; Abnormal lung sounds R09.89 ; Bronchitis J40 and Hyperlipidemia, unspecified hyperlipidemia type E78.5 [facility] [id number] [place] [address] 75672 -9950 Mar, URI, acute J06.9 [place] [id number] [place] [address] 83118- 8108 Mar, [address] 79173- 8902 Mar, 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 [place] [id number] [place] [address] 04124- 6175 Mar, Other chronic pain G89.29 and Generalized anxiety disorder F41.[address] [place] [address]- 5583 Feb, [facility] [id number] [place] [address] 56844- 1166 Feb, Mass of left lung R91.8 and Cervicalgia M54.2 [facility] [address] 72973- 3305 Feb, [facility] [address] 54553- 3377 Feb, [facility] [address] 72845 -5523 Feb, Cough R05 and Bronchitis J40 [facility] [address] 08491 -4165 07 Feb, 2017 Acute nasopharyngitis J00 and Bronchitis J40 [place] [address] 19948- 6351 06 Feb, 2017 Other chronic pain G89.29 and Generalized anxiety disorder F41.1 [facility] [address] 88066- 1116 Jan, Encounter for immunization Z23 [facility] [address] 99259 -1535 Jan, [facility] [id number] [place] [address] 31311 -2144 18 Jan, 2017 [facility] [address] 42045- 8001 16 Jan, 2017 Canker sores oral K12.0 [place] [address] 79153- 3390 14 Jan, 2017 [facility] [address] 06959- 1603 07 Jan, 2017 Other chronic pain G89.29 and Generalized anxiety disorder F41.1 [facility] [address] 86624- 5666 Jan, Cough R05 and Bronchitis J40 [facility] [address] 90567 -3234 Jan, Bronchitis J40 [facility] [id number] [place] [address] 38410- 8325 Dec, Vitamin D deficiency E55.9 [facility] [address] 32235- 8085 Dec, DM (diabetes mellitus) with complications E11.8 [place] [address] 78725- 2406 Dec, DM (diabetes mellitus) with complications E11.8 and Vitamin D deficiency E55.9 [facility] [address] 93134- 0145 Dec, DM (diabetes mellitus) with complications E11.8 ; Essential hypertension I10 ; Hyperlipidemia, unspecified hyperlipidemia type E78.5 ; Vitamin D deficiency E55.9 ; Gastroesophageal reflux disease, esophagitis presence not specified K21.9 ; 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 ; Other chronic pain G89.29 ; Encounter for immunization Z23 and Generalized anxiety disorder F41.1 [place] [id number] [place] [address] 72397- 8032 Nov, History of CVA with residual deficit I69.30 [place] [address] 91916- 1237 Nov, DM (diabetes mellitus) with complications E11.8 [place] [id number] [place] [address] 94308- 8296 06 Nov, 2016 Left otitis media with effusion H65.92 ; Bronchitis J40 and Canker sores oral K12.0 [place] [id number] [place] [address] 54757- 3078 Oct, [place] [address] 97782- 5220 Oct, DM (diabetes mellitus) with complications E11.8 [place] [id number] [place] [address] 24396- 8098 Oct, [place] [id number] [place] [address] 26533- 1045 Sep, DM (diabetes mellitus) with complications E11.8 [place] [address] 65569- 4706 Sep, DM (diabetes mellitus) with complications E11.8 ; Essential hypertension I10 ; Gastroesophageal reflux disease, esophagitis presence not specified K21.9 ; Hyperlipidemia, unspecified hyperlipidemia type E78.5 ; Tobacco abuse Z72.0 ; Vitamin D deficiency E55.9 ; History of CVA with residual deficit I69.30 and Seasonal allergic rhinitis due to pollen J30.1 [place] [address] 85243- 3994 Sep, [place] [address] 27957- 2910 Aug, [facility] [address] 07519 -0675 Aug, Dysuria R30.0 ; Acute cystitis with hematuria N30.01 and Middle ear effusion, right H65.91 [place] [address] 37467- 6140 Aug, Other complicated headache syndrome G44.59 [place] [id number] [place] [address] 58937- 7536 Aug, DM (diabetes mellitus) with complications E11.8 [place] [address] 30950- 0715 14 Aug, 2016 Dysuria R30.0 [place] [id number] [place] [address] 26847- 9009 12 Aug, 2016 Dysuria R30.0 [place] [address] 85228- 0135 Aug, [facility] [address] [place] [address] 27659- 1834 July, [facility] [id number] [place] [address] 74785- 2918 July, [facility] [id number] [place] [address] 08651- 2962 July, DM (diabetes mellitus) with complications E11.8 [facility] [id number] [place] [address] 39863- 1089 July, Other complicated headache syndrome G44.59 [facility] [id number] [place] [address] 96569- 1719 July, [facility] [id number] [place] [address] 68537 -3967 July, Dysuria R30.0 and Acute cystitis with hematuria N30.01 [facility] [id number] [place] [address] 85390- 0768 July, [facility] [id number] [place] [address] 04601- 9589 July, Other complicated headache syndrome G44.59 [facility] [address] [place] [address] 60834 -2848 Jun, Exposure to strep throat Z20.818 and Acute upper respiratory infection, unspecified J06.9 [facility] [id number] [place] [address] 41170- 3364 Jun, [facility] [id number] [place] [address] 19736- 0861 Jun, DM (diabetes mellitus) 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 and Gastroesophageal reflux disease, esophagitis presence not specified K21.9 [facility] [id number] [place] [address] 87843- 1465 Jun, [facility] [id number] [place] [address] 68502- 4076 Jun, Dizziness R42 [facility] [id number] [place] [address] 28464 -3982 Jun, [facility] [id number] [place] [address] 89902- 2252 Jun, [facility] [id number] [place] [address] 27057 -5074 May, Seasonal allergic rhinitis, unspecified allergic rhinitis trigger J30.2 [facility] [address] 23622- 9266 May, [facility] [address] 18928- 6438 May, DM (diabetes mellitus) with complications E11.8 [...] allergic rhinitis due to pollen J30.1 [facility] [id number] [place] [address] 95761- 7514 May, Gastroesophageal reflux disease, esophagitis presence not specified K21.9 [facility] [id number] [place] [address] 70514- 4522 May, [facility] [id number] [place] [address] 98465- 1826 Apr, [facility] [address] 83100- 0404 Apr, [facility] [id number] [place] [address] 67249- 3455 Mar, [facility] [address] 20364- 7021 Mar, [facility] [address], [place] [address]- 3299 Mar, [facility] [id number] [place] [address] 97336- 6535 Mar, [facility] [id number] [place] [address] 04694- 9949 Feb, [facility] [id number] [place] [address] 71368- 2260 Feb, [facility] [id number] [place] [address] 88890- 4831 Feb, [place] [id number] [place] [address] 01356- 8985 Feb, Major depressive disorder, recurrent episode, moderate F33.1 ; Generalized anxiety disorder F41.1 ; Essential hypertension I10 ; DM ( diabetes mellitus) with complications E11.8 ; Hyperlipidemia, unspecified hyperlipidemia type E78.5 ; 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 and Gastroesophageal reflux disease, esophagitis presence not specified K21.9 [facility] [id number] [place] [address] 19165 -5702 Feb, Other viral agents as the cause of diseases classified elsewhere B97.89 and Acute upper respiratory infection, unspecified J06.9 [place] [address], [place] [address]- 0782 Jan, [facility] [address] [place] [address] 41419- 5846 Jan, [facility] [address] [place] [address] 58378 -0013 Jan, Acute bronchitis, unspecified organism J20.9 [facility] [address] [place] [address] 78477- 9581 Jan, [facility] [address] [address]- 2475 Jan, History of CVA with residual deficit I69.30 [place] [address], [place] [address]- 4883 Jan, [place] [id number] [place] [address] 85631- 9116 Jan, Acute bronchitis, unspecified organism J20.9 [place] [address] [place] [address] 56862- 2582 Jan, [place] [id number] [place] [address] 37334- 5818 Dec, History of CVA with residual deficit I69.30 [place] [id number] [place] [address] 91945- 8944 Dec, [place] [address] [place] [address] 68759- 4620 Dec, Other chronic pain G89.29 ; 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 and History of CVA with residual deficit I69.30 [place] [address] [address]- 9072 Nov, Major depressive disorder, recurrent episode, moderate F33.1 ; Irregular heart rhythm I49.9 ; Essential hypertension I10 ; History of CVA with residual deficit I69.30 ; 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 ; Gastroesophageal reflux disease, esophagitis presence not specified K21.9 ; Hyperlipidemia, unspecified hyperlipidemia type E78.5 ; 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 ; Other chronic pain G89.29 and Generalized anxiety disorder F41.1 [place] [address], [place] [address]- 1751 Oct, Generalized anxiety disorder F41.1 ; Major depressive disorder, recurrent episode, moderate F33.1 ; Essential hypertension I10 ; History of CVA with residual deficit I69.30 ; 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 ; Gastroesophageal reflux disease, esophagitis presence not specified K21.9 ; Hyperlipidemia, unspecified hyperlipidemia type E78.5 ; Other chronic pain G89.29 and Bacterial conjunctivitis of left eye H10.9 [place] [address] [place] [address] 19962- 0546 Sep, Chronic pain syndrome G89.4 and DM (diabetes mellitus) with complications E11.8 [place] [address] [place] [address] 10672- 5420 Sep, Irregular heart rhythm I49.9 ; Routine health maintenance Z00.00 ; Essential hypertension I10 ; History of CVA with residual deficit I69.30 ; Gastroesophageal reflux disease, esophagitis presence not specified K21.9 ; DM (diabetes mellitus) with complications E11.8 ; Hyperlipidemia, unspecified hyperlipidemia type E78.5 and Other complicated headache syndrome G44.[address] 41518- 0359 Jun, [address] 06331- 5533 Jun, [place] [id number] [place] [address] 44134- 3784 Aug, [place] [id number] [place] [address] 00113- 9836 Jun, IMMUNIZATIONS No Known Immunizations SOCIAL HISTORY [...] History Blood Clotting Disorder- Dr Galvan at [facility] Medical History Possible Anemia (currently under work up) - Dr Galvan [facility] Medical History irregular heart beat-sees [...] Has been hospitalized at then transfered to [facility]. 2014 Hospitalization History Child Hospitalization History abd pain and shakiness - [facility] visit [facility] Hospitalization History [facility] ED for URI 04/16/17 Hospitalization History via [facility] 08/16/17
--- OUTSIDE RECORDS SUMMARY | 2017-11-04 16:50 | XMS REPORT ---
Author Author HUIZARSOTERO Cox Organization [facility] Address [address] [place] [address] Care Team Providers Care It Corporate Recruiter Name Role Phone SOTERO HUIZAR Unavailable PROBLEMS Type Condition ICD9-CM Code RII78-AN Code Onset Dates Condition Status SNOMED Code Problem Other chronic pain G89.29 Active 54202533 Problem Tobacco abuse counseling Z71.6 Active 230816524 Problem Tobacco abuse Z72.0 Active 659970597 Problem Acute non intractable tension-type headache G44.209 Active 745469987 Problem Chronic pain syndrome G89.4 Active 220628556 Problem History of CVA with residual deficit I69.30 Active 182712626 Problem Seasonal allergic rhinitis due to pollen J30.1 Active 47961214 Problem Type 2 diabetes mellitus with hyperglycemia E11.65 Active 82081367 Problem group home current use of insulin Z79.4 Active 405645491 Problem Major depressive disorder, recurrent episode, moderate F33.1 Active 958277462 Problem Elevated liver enzymes R74.8 Active 037738768 Problem Vitamin D deficiency E55.9 Active 93501330 Problem Gastroesophageal reflux disease, esophagitis presence not specified K21.9 Active 812727141 Problem Essential hypertension I10 Active 76570876 Problem Generalized anxiety disorder F41.1 Active 74496566 Problem Hyperlipidemia, unspecified hyperlipidemia type E78.5 Active 84940937 Problem 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 Active 151627434 Problem 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 Active 17893668 ALLERGIES No Information ENCOUNTERS Encounter Location Date Diagnosis [facility] [id number] [place] [address] 52189- 6273 Aug, Dysuria R30.0 [facility] [address] [address] Aug, Generalized anxiety disorder F41.1 ; Chronic pain syndrome G89.4 and Dysuria R30.0 [facility] [id number] [place] [address] 48666- 7802 Aug, Acute cystitis with hematuria N30.01 and Candidal dermatitis B37.2 [facility] [id number] [place] [address] 59878- 0942 Aug, Dysuria R30.0 [facility] [id number] [place] [address] 25114- 0449 Aug, [facility] [id number] [place] [address] 82272 -6408 Aug, Dysuria R30.0 [facility] [id number] [place] [address] 87822- 9865 Aug, [facility] [id number] [place] [address] 42689- 1377 July, Cervicalgia M54.2 ; Acute non intractable tension-type headache G44.209 ; Type 2 diabetes mellitus with hyperglycemia E11.65 and group home current use of insulin Z79.4 [place] [id number] [place] [address] 64823- 2247 July, Generalized anxiety disorder F41.1 and Chronic pain syndrome G89.4 [place] [id number] [place] [address] 00026- 7034 July, Abscess L02.91 [place] [id number] [place] [address] 38850- 0933 July, [place] [id number] [place] [address] 63709- 0380 July, [place] [id number] [place] [address] 10912- 0969 July, Type 2 diabetes mellitus with hyperglycemia E11.65 ; group home current use of insulin Z79.4 ; [...] pain syndrome G89.4 and Vaginal candidiasis B37.3 [place] [address] 32063- 8862 Jun, Generalized anxiety disorder F41.1 and Other chronic pain G89.29 [place] [address] 18244- 8853 Jun, [place] [address] 51710- 7372 Jun, [place] [address] 23264- 1390 Jun, Abnormal levels of other serum enzymes R74.8 [place] [address] 93187- 1899 Jun, Abnormal levels of other serum enzymes R74.8 [place] [address] 09717- 8964 Jun, Elevated liver enzymes R74.8 [place] [address] 52048- 1994 Jun, Elevated liver enzymes R74.8 [place] [address] 07504- 9472 May, Right upper quadrant pain R10.11 ; Cervicalgia M54.2 and High risk medication use Z79.899 [place] [address] 60206- 1763 May, Generalized anxiety disorder F41.1 and Other chronic pain G89.29 [place] [address] 23918- 7009 May, Canker sores oral K12.0 [place] [id number] [place] [address] 61598- 2913 May, Generalized anxiety disorder F41.1 and Other chronic pain G89.29 [facility] [id number] [place] [address] 45316- 5987 May, [facility] [id number] [place] [address] 53934- 7709 Apr, [facility] [address] 01772 -8711 Apr, Acute cystitis with hematuria N30.01 and Dysuria R30.0 [place] [address] 71371- 0330 Apr, [facility] [address] 66290- 7373 Apr, [facility] [address] 63248- 7859 Apr, DM (diabetes mellitus) with complications E11.8 [place] [id number] [place] [address] 74824- 8312 06 Apr, 2017 DM (diabetes mellitus) with complications E11.8 [place] [id number] [place] [address] 90226- 2697 Apr, [facility] [id number] [place] [address] 34200- 4439 Apr, [facility] [id number] [place] [address] 31513- 1360 Apr, Other chronic pain G89.29 ; Generalized anxiety disorder F41.1 ; Cervicalgia M54.2 and Controlled substance agreement signed Z79.899 [facility] [id number] [place] [address] 81161 -1902 Mar, Abdominal pain R10.9 and Viral gastroenteritis A08.4 [facility] [address] [place] [address]- 7584 Mar, [facility] [address] 31132- 7659 Mar, [place] [address] 15788- 7154 Mar, DM (diabetes mellitus) with complications E11.8 ; Type 2 diabetes mellitus with hyperglycemia E11.65 ; group home current use of insulin Z79.4 ; Essential hypertension I10 ; Bronchitis J40 ; Major depressive disorder , recurrent episode, moderate F33.1 ; Hyperlipidemia, unspecified hyperlipidemia type E78.5 ; Tobacco abuse Z72.0 ; Tobacco abuse counseling Z71.6 ; History of CVA with residual deficit I69.30 ; Gastroesophageal reflux disease, esophagitis presence not specified K21.9 and 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 01593- 9753 Mar, [address] 48374- 0589 Mar, 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 ; Abnormal lung sounds R09.89 ; Bronchitis J40 and Hyperlipidemia, unspecified hyperlipidemia type E78.5 [facility] [id number] [place] [address] 15626 -9238 Mar, URI, acute J06.9 [place] [id number] [place] [address] 30052- 6815 Mar, [facility] [address] 12539- 6050 Mar, DM (diabetes mellitus) with complications E11.[address] 22387- 1254 Mar, Other chronic pain G89.29 and Generalized anxiety disorder F41.1 [place] [address] 68347- 1858 Feb, [address] [place] [address]- 1668 Feb, Mass of left lung R91.8 and Cervicalgia M54.2 [facility] [address] 94877- 7685 Feb, [facility] [id number] [place] [address] 65556- 4389 Feb, [facility] [address] 93631 -4433 Feb, Cough R05 and Bronchitis J40 [facility] [address] 03069 -9564 07 Feb, 2017 Acute nasopharyngitis J00 and Bronchitis J40 [facility] [id number] [place] [address] 77595- 9548 06 Feb, 2017 Other chronic pain G89.29 and Generalized anxiety disorder F41.1 [facility] [address] 23973- 8080 Jan, Encounter for immunization Z23 [facility] N [address] 20168 -8831 25 Jan, 2017 [facility] [place] [id number] [place] [address] 38828 -8346 18 Jan, 2017 [place] [id number] [place] [address] 08212- 0054 16 Jan, 2017 Canker sores oral K12.0 [facility] [id number] [place] [address] 77212- 6482 14 Jan, 2017 [place] [address] 82962- 0919 07 Jan, 2017 Other chronic pain G89.29 and Generalized anxiety disorder F41.1 [facility] [id number] [place] [address] 70315- 9178 06 Jan, 2017 Cough R05 and Bronchitis J40 [facility] [address] 24008 -7870 Jan, Bronchitis J40 [place] [address] 73736- 9906 Dec, Vitamin D deficiency E55.9 [place] [address] 59443- 2140 Dec, 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 [place] [address] 29040- 3008 Dec, 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 and Vitamin D deficiency E55.9 [place] [address] 09435- 3989 Dec, 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 ; Essential hypertension I10 ; Hyperlipidemia, unspecified hyperlipidemia type E78.5 ; Vitamin D deficiency E55.9 ; Gastroesophageal reflux disease, esophagitis presence not specified K21.9 ; 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 ; Other chronic pain G89.29 ; Encounter for immunization Z23 and Generalized anxiety disorder F41.[address] 40373- 6903 12 Nov, 2016 History of CVA with residual deficit I69.[address] 59923- 0915 11 Nov, 2016 DM (diabetes mellitus) with complications E11.8 [place] [address] 00364- 9459 06 Nov, 2016 Left otitis media with effusion H65.92 ; Bronchitis J40 and Canker sores oral K12.[address] 52412- 0365 Oct, [place] [address] 56837- 4736 Oct, DM (diabetes mellitus) with complications E11.8 [place] [address] 38926- 4739 Oct, [facility] [id number] [place] [address] 13172- 4010 17 Sep, 2016 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 [facility] [id number] [place] [address] 82136- 2638 11 Sep, 2016 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 ; Essential hypertension I10 ; Gastroesophageal reflux disease, esophagitis presence not specified K21.9 ; Hyperlipidemia, unspecified hyperlipidemia type E78.5 ; Tobacco abuse Z72.0 ; Vitamin D deficiency E55.9 ; History of CVA with residual deficit I69.30 and Seasonal allergic rhinitis due to pollen J30.1 [place] [address] 07198- 4112 Sep, [place] [address] 91100- 0879 Aug, [facility] [address] 56187 -2659 Aug, Dysuria R30.0 ; Acute cystitis with hematuria N30.01 and Middle ear effusion, right H65.91 [place] [address] 56834- 7249 Aug, Other complicated headache syndrome G44.59 [place] [id number] [place] [address] 51564- 9912 19 Aug, 2016 DM (diabetes mellitus) with complications E11.8 [place] [id number] [place] [address] 98862- 6206 14 Aug, 2016 Dysuria R30.0 [place] [address] 99055- 5125 12 Aug, 2016 Dysuria R30.0 [facility] [id number] [place] [address] 58822- 0209 Aug, [place] [address] 81754- 6293 July, [facility] [id number] [place] [address] 29596- 2532 July, [facility] [id number] [place] [address] 31374- 2696 July, DM (diabetes mellitus) with complications E11.8 [facility] [id number] [place] [address] 64455- 8193 July, Other complicated headache syndrome G44.59 [facility] [id number] [place] [address] 42637- 4070 July, [facility] [id number] [place] [address] 31451 -2943 July, Dysuria R30.0 and Acute cystitis with hematuria N30.01 [place] [id number] [place] [address] 43853- 7544 July, [place] [id number] [place] [address] 24543- 4979 July, Other complicated headache syndrome G44.59 [facility] [id number] [place] [address] 32090 -5471 Jun, Exposure to strep throat Z20.818 and Acute upper respiratory infection, unspecified J06.9 [place] [id number] [place] [address] 42968- 3243 Jun, [facility] [id number] [place] [address] 14021- 1237 Jun, 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 and Gastroesophageal reflux disease, esophagitis presence not specified K21.9 [facility] [id number] [place] [address] 58165- 5163 Jun, [facility] [id number] [place] [address] 38536- 8391 Jun, Dizziness R42 [facility] [address] [place] [address] -5482 Jun, [facility] [id number] [place] [address] 25391- 6329 Jun, [facility] [id number] [place] [address] 50503 -3362 May, Seasonal allergic rhinitis, unspecified allergic rhinitis trigger J30.2 [facility] [address] 76018- 4683 May, [facility] [id number] [place] [address] 59058- 7959 May, DM (diabetes mellitus) with complications E11.8 [...] Seasonal allergic rhinitis due to pollen J30.1 [facility] [id number] [place] [address] 35562- 9169 May, Gastroesophageal reflux disease, esophagitis presence not specified K21.9 [facility] [id number] [place] [address] 00602- 2353 May, [facility] [id number] [place] [address] 52697- 9944 Apr, [facility] [id number] [place] [address] 41703- 1277 Apr, [facility] [address] 60873- 1878 Mar, [facility] [id number] [place] [address] 54369- 3402 Mar, [facility] [address] 42034- 4238 Mar, [facility] [id number] [place] [address] 82684- 4163 Mar, [facility] [address] 57699- 8633 Feb, [facility] [id number] [place] [address] 38952- 8727 Feb, [facility] [address] 54428- 0143 Feb, [facility] [id number] [place] [address] 25981- 0936 Feb, Major depressive disorder, recurrent episode, moderate F33.1 ; Generalized anxiety disorder F41.1 ; Essential hypertension I10 ; DM ( diabetes mellitus) with complications E11.8 ; Hyperlipidemia, unspecified hyperlipidemia type E78.5 ; 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 and Gastroesophageal reflux disease, esophagitis presence not specified K21.9 [facility] [id number] [place] [address] 13302 -7629 Feb, Other viral agents as the cause of diseases classified elsewhere B97.89 and Acute upper respiratory infection, unspecified J06.9 [place] [id number] [place] [address] 23797- 7802 Jan, [place] [id number] [place] [address] 47502- 0030 Jan, [facility] [id number] [place] [address] 57569 -5096 Jan, Acute bronchitis, unspecified organism J20.9 [place] [id number] [place] [address] 90861- 7002 Jan, [place] [id number] [place] [address] 36274- 4227 Jan, History of CVA with residual deficit I69.30 [place] [address] 43877- 6723 Jan, [place] [address] [address]- 9892 Jan, Acute bronchitis, unspecified organism J20.9 [address] [place] [address] 66403- 4201 Jan, [place] [id number] [place] [address] 47568- 9868 Dec, History of CVA with residual deficit I69.30 [place] [id number] [place] [address] 15872- 7720 Dec, [place] [id number] [place] [address] 17317- 0222 Dec, Other chronic pain G89.29 ; 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 and History of CVA with residual deficit I69.30 [place] [id number] [place] [address] 34326- 4620 Nov, Major depressive disorder, recurrent episode, moderate F33.1 ; Irregular heart rhythm I49.9 ; Essential hypertension I10 ; History of CVA with residual deficit I69.30 ; 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9 ; Hyperlipidemia, unspecified hyperlipidemia type E78.5 ; Other chronic pain G89.29 and Bacterial conjunctivitis of left eye H10.[address] [place] [address] 33611- 2994 Sep, Chronic pain syndrome G89.4 and DM (diabetes mellitus) with complications E11.8 [place] [address] [place] [address] 66664- 1248 Sep, Irregular heart rhythm I49.9 ; Routine health maintenance Z00.00 ; Essential hypertension I10 ; History of CVA with residual deficit I69.30 ; Gastroesophageal reflux disease, esophagitis presence not specified K21.9 ; 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 ; Hyperlipidemia, unspecified hyperlipidemia type E78.5 and Other complicated headache syndrome G44.59 [place] [id number] [place] [address] 77910- 9588 Jun, [place] [address] 70549- 8833 Jun, [place] [id number] [place] [address] 12054- 2676 Aug, [place] [address] 57663- 8509 Jun, IMMUNIZATIONS No Known Immunizations SOCIAL HISTORY [...] Clotting Disorder- Dr Galvan at [facility] Medical History Possible Anemia (currently under work up) - Dr Galvan [facility] Medical History irregular heart beat-sees dr. hassan Medical History history of pancreatitis Medical History gerd Medical History History of CVA with residual deficit Medical History Other complicated headache syndrome Medical History Stokes syndrome Surgical History tubal ligation Surgical History section Surgical History cholecystectomy Surgical History Toe Nail Removal x2 Hospitalization History Brain Stem Strokes x5. Has been hospitalized at then transfered to [facility]. 2014 Hospitalization History Child Hospitalization History abd pain and shakiness - [facility] ED visit [facility] Hospitalization History [facility] ED for URI 04/16/17 Hospitalization History [facility] 08[facility]16/17
--- OUTSIDE RECORDS SUMMARY | 2017-11-04 16:50 | XMS REPORT ---
Author Author HUIZARMICHAELSOTERO Organization [facility] Address [address] [place] [address] Care Team Providers Care Bottle Filler Name Role Phone HUIZARSOTERO Cox Unavailable PROBLEMS Type Condition ICD9-CM Code CIT43-HC Code Onset Dates Condition Status SNOMED Code Problem Other chronic pain G89.29 Active 15854866 Problem Tobacco abuse counseling Z71.6 Active 087288776 Problem Tobacco abuse Z72.0 Active 609613864 Problem Acute non intractable tension-type headache G44.209 Active 456790719 Problem Chronic pain syndrome G89.4 Active 125418863 Problem History of CVA with residual deficit I69.30 Active 550285546 Problem Seasonal allergic rhinitis due to pollen J30.1 Active 77252153 Problem Type 2 diabetes mellitus with hyperglycemia E11.65 Active 46116003 Problem snf current use of insulin Z79.4 Active 518669317 Problem Major depressive disorder, recurrent episode, moderate F33.1 Active 065005210 Problem Elevated liver enzymes R74.8 Active 613406773 Problem Vitamin D deficiency E55.9 Active 05160488 Problem Gastroesophageal reflux disease, esophagitis presence not specified K21.9 Active 546313502 Problem Essential hypertension I10 Active 74218842 Problem Generalized anxiety disorder F41.1 Active 49782802 Problem Hyperlipidemia, unspecified hyperlipidemia type E78.5 Active 31161726 Problem 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 Active 166729478 Problem 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 [address] [facility] [id number] [address] Aug, Dysuria R30.0 [facility] [address] [id number] [place] [address] 68398- 6902 Aug, Generalized anxiety disorder F41.1 ; Chronic pain syndrome G89.4 and Dysuria R30.0 [place] [id number] [place] [address] 74792- 7863 Aug, Acute cystitis with hematuria N30.01 and Candidal dermatitis B37.2 [facility] [id number] [place] [address] 50832- 7721 Aug, Dysuria R30.0 [facility] [id number] [place] [address] 52620- 4501 Aug, [facility] [id number] [place] [address] 95254 -9490 Aug, Dysuria R30.0 [place] [id number] [place] [address] 53227- 4408 Aug, [place] [id number] [place] [address] 49746- 4824 July, Cervicalgia M54.2 ; Acute non intractable tension-type headache G44.209 ; Type 2 diabetes mellitus with hyperglycemia E11.65 and snf current use of insulin Z79.4 [place] [id number] [place] [address] 45400- 5537 July, Generalized anxiety disorder F41.1 and Chronic pain syndrome G89.4 [place] [id number] [place] [address] 88885- 5965 July, Abscess L02.91 [place] [id number] [place] [address] 78709- 2309 July, [place] [id number] [place] [address] 11880- 0643 July, [place] [id number] [place] [address] 40954- 2839 July, Type 2 diabetes mellitus with hyperglycemia [...] pain syndrome G89.4 and Vaginal candidiasis B37.3 [place] [address] 67548- 2369 Jun, Generalized anxiety disorder F41.1 and Other chronic pain G89.29 [place] [address] 33919- 2282 Jun, [place] [address] 49200- 2607 Jun, [place] [address] 05169- 4854 Jun, Abnormal levels of other serum enzymes R74.8 [place] [address] 74676- 8121 Jun, Abnormal levels of other serum enzymes R74.8 [place] [id number] [place] [address] 74309- 7103 Jun, Elevated liver enzymes R74.8 [place] [id number] [place] [address] 84898- 8081 Jun, Elevated liver enzymes R74.8 [place] [id number] [place] [address] 70002- 2016 May, Right upper quadrant pain R10.11 ; Cervicalgia M54.2 and High risk medication use Z79.899 [place] [id number] [place] [address] 90695- 0973 May, Generalized anxiety disorder F41.1 and Other chronic pain G89.29 [place] [id number] [place] [address] 85119- 7170 May, Canker sores oral K12.0 [place] [address] 46429- 8328 May, Generalized anxiety disorder F41.1 and Other chronic pain G89.29 [place] [address] 64171- 3445 May, [facility] [address] 83022- 4685 Apr, [facility] [address] 84193 -9237 Apr, Acute cystitis with hematuria N30.01 and Dysuria R30.0 [place] [address] 20750- 1501 Apr, [place] [address] 37582- 5398 Apr, [place] [id number] [place] [address] 13705- 8000 Apr, DM (diabetes mellitus) with complications E11.8 [place] [id number] [place] [address] 69941- 7792 06 Apr, 2017 DM (diabetes mellitus) with complications E11.8 [place] [id number] [place] [address] 90005- 1267 Apr, [facility] [id number] [place] [address] 41841- 2554 Apr, [place] [address] 18080- 4543 Apr, Other chronic pain G89.29 ; Generalized anxiety disorder F41.1 ; Cervicalgia M54.2 and Controlled substance agreement signed Z79.899 [facility] [address] 75658 -4467 Mar, Abdominal pain R10.9 and Viral gastroenteritis A08.4 [place] [id number] [place] [address] 88925- 0724 Mar, [place] [id number] [place] [address] 29348- 8486 Mar, [place] [address] 87377- 3580 Mar, DM (diabetes mellitus) with complications E11.8 ; Type 2 diabetes mellitus with hyperglycemia E11.65 ; snf current use of insulin Z79.4 ; Essential hypertension I10 ; Bronchitis J40 ; Major depressive disorder , recurrent episode, moderate F33.1 ; Hyperlipidemia, unspecified hyperlipidemia type E78.5 ; Tobacco abuse Z72.0 ; Tobacco abuse counseling Z71.6 ; History of CVA with residual deficit I69.30 ; Gastroesophageal reflux disease, esophagitis presence not specified K21.9 and 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 [place] [id number] [place] [address] 72624- 8040 Mar, [place] [id number] [place] [address] 33873- 0296 Mar, 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 ; Abnormal lung sounds R09.89 ; Bronchitis J40 and Hyperlipidemia, unspecified hyperlipidemia type E78.5 [facility] [id number] [place] [address] 00844 -5023 Mar, URI, acute J06.9 [place] [id number] [place] [address] 14999- 8677 Mar, [place] [id number] [place] [address] 04669- 5705 Mar, 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 [address] 88542- 6500 Feb, Mass of left lung R91.8 and Cervicalgia M54.2 [facility] [address] 33962- 0784 Feb, [facility] [address] 32947- 9761 Feb, [facility] [address] 88145 -8549 Feb, Cough R05 and Bronchitis J40 [facility] [address] 03899 -4337 07 Feb, 2017 Acute nasopharyngitis J00 and Bronchitis J40 [place] [address] 59163- 9097 06 Feb, 2017 Other chronic pain G89.29 and Generalized anxiety disorder F41.1 [facility] [address] 62646- 4971 Jan, Encounter for immunization Z23 [facility] [address] 37025 -3802 Jan, [facility] [address] 47122 -9197 18 Jan, 2017 [facility] [address] 77480- 3637 16 Jan, 2017 Canker sores oral K12.0 [place] [address] 61600- 4644 14 Jan, 2017 [facility] [address] 25014- 7698 07 Jan, 2017 Other chronic pain G89.29 and Generalized anxiety disorder F41.1 [facility] [address] 22058- 5203 Jan, Cough R05 and Bronchitis J40 [facility] [address] 73369 -6667 Jan, Bronchitis J40 [facility] [address] 18317- 5772 Dec, Vitamin D deficiency E55.9 [facility] [address] 87096- 0353 Dec, DM (diabetes mellitus) with complications E11.8 [place] [address] 71643- 0881 Dec, DM (diabetes mellitus) with complications E11.8 and Vitamin D deficiency E55.9 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 [address] 34237- 9597 Nov, History of CVA with residual deficit I69.30 [place] [address] 51596- 5172 Nov, DM (diabetes mellitus) with complications E11.8 [place] [address] 50891- 7077 Nov, Left otitis media with effusion H65.92 ; Bronchitis J40 and Canker sores oral K12.0 [place] [address] 20628- 4689 Oct, [place] [address] 79513- 5642 Oct, DM (diabetes mellitus) with complications E11.8 [place] [address] [address] [id number] [place] [address] 82064- 3299 Oct, [place] [address] 71167- 7497 Sep, DM (diabetes mellitus) with complications E11.8 [place] [address] 21131- 7561 Sep, 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 ; Essential hypertension I10 ; Gastroesophageal reflux disease, esophagitis presence not specified K21.9 ; Hyperlipidemia, unspecified hyperlipidemia type E78.5 ; Tobacco abuse Z72.0 ; Vitamin D deficiency E55.9 ; History of CVA with residual deficit I69.30 and Seasonal allergic rhinitis due to pollen J30.1 [place] [address] 37053- 5466 Sep, [place] [address] 55014- 1181 Aug, [facility] [address] 84275 -4298 Aug, Dysuria R30.0 ; Acute cystitis with hematuria N30.01 and Middle ear effusion, right H65.[address] 71101- 5667 Aug, Other complicated headache syndrome G44.59 [place] [address] 61273- 9626 19 Aug, 2016 DM (diabetes mellitus) with complications E11.8 [place] [address] 19731- 6871 14 Aug, 2016 Dysuria R30.0 [place] [address] [place] [address] [id number] [place] [address] 26567- 8772 12 Aug, 2016 Dysuria R30.0 [place] [address] 73251- 1583 Aug, [facility] [address] [address]- 9603 July, [facility] [id number] [place] [address] 85158- 7372 July, 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 [id number] [place] [address] 70148- 2750 July, Other complicated headache syndrome G44.59 [facility] [address] [id number] [place] [address] 17598- 5999 July, [facility] [id number] [place] [address] 96364 -7387 July, Dysuria R30.0 and Acute cystitis with hematuria N30.01 [facility] [id number] [place] [address] 99542- 9467 July, [facility] [id number] [place] [address] 78703- 1950 July, Other complicated headache syndrome G44.59 [facility] [id number] [place] [address] 19604 -2387 Jun, Exposure to strep throat Z20.818 and Acute upper respiratory infection, unspecified J06.9 [facility] [id number] [place] [address] 61877- 4719 Jun, 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 [id number] [place] [address] 06037- 8237 Jun, [facility] [id number] [place] [address] 19589- 9698 11 Jun, 2016 Dizziness R42 [facility] [id number] [place] [address] 53633 -0697 Jun, [facility] [id number] [place] [address] 17334- 7946 Jun, [facility] [id number] [place] [address] 22306 -3969 May, Seasonal allergic rhinitis, unspecified allergic rhinitis trigger J30.2 [facility] [id number] [place] [address] 54753- 9767 May, [facility] [address] 61410- 5891 May, DM (diabetes mellitus) with complications E11.8 [...] Seasonal allergic rhinitis due to pollen J30.1 [facility] [id number] [place] [address] 09603- 1483 May, Gastroesophageal reflux disease, esophagitis presence not specified K21.9 [facility] [id number] [place] [address] 38509- 2585 May, [facility] [id number] [place] [address] 21174- 7479 Apr, [facility] [id number] [place] [address] 18438- 1653 Apr, [facility] [id number] [place] [address] 64711- 6692 Mar, [facility] [id number] [place] [address] 70488- 2246 Mar, [facility] [address] [address]- 3731 Mar, [facility] [id number] [place] [address] 50551- 0716 Mar, [facility] [id number] [place] [address] 21413- 1477 Feb, [facility] [id number] [place] [address] 88947- 9543 Feb, 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 [address] [address]- 5461 Jan, [facility] [id number] [place] [address] 87941- 1015 Jan, [facility] [id number] [place] [address] 30084 -0363 Jan, Acute bronchitis, unspecified organism J20.9 [facility] [address] [place] [address] 32226- 5031 Jan, [facility] [address] [place] [address] 81681- 2428 Jan, History of CVA with residual deficit I69.30 [place] [address] [address]- 6309 Jan, [place] [id number] [place] [address] 27475- 4257 Jan, Acute bronchitis, unspecified organism J20.9 [place] [id number] [place] [address] 52797- 2391 Jan, [place] [id number] [place] [address] 10181- 4615 Dec, History of CVA with residual deficit I69.30 [place] [id number] [place] [address] 92210- 4345 Dec, [place] [id number] [place] [address] 74166- 0225 Dec, Other chronic pain G89.29 ; 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 and History of CVA with residual deficit I69.30 [place] [address] [place] [address] 50743- 9805 Nov, Major depressive disorder, recurrent episode, moderate F33.1 ; Irregular heart rhythm I49.9 ; Essential hypertension I10 ; History of CVA with residual deficit I69.30 ; 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 ; Gastroesophageal reflux disease, esophagitis presence not specified K21.9 ; Hyperlipidemia, unspecified hyperlipidemia type E78.5 ; 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 ; Other chronic pain G89.29 and Generalized anxiety disorder F41.1 [place] [address] [address] [id number] [place] [address] 55674- 3245 Oct, Generalized anxiety disorder F41.1 ; Major depressive disorder, recurrent episode, moderate F33.1 ; Essential hypertension I10 ; History of CVA with residual deficit I69.30 ; 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 ; Gastroesophageal reflux disease, esophagitis presence not specified K21.9 ; Hyperlipidemia, unspecified hyperlipidemia type E78.5 ; Other chronic pain G89.29 and Bacterial conjunctivitis of left eye H10.9 [place] [address] [place] [address] 68240- 6069 Sep, Chronic pain syndrome G89.4 and DM (diabetes mellitus) with complications E11.8 [place] [id number] [place] [address] 15149- 8982 Sep, Irregular heart rhythm I49.9 ; Routine health maintenance Z00.00 ; Essential hypertension I10 ; History of CVA with residual deficit I69.30 ; Gastroesophageal reflux disease, esophagitis presence not specified K21.9 ; 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 Negative for flu and pneumonia, was given generalized URI with touch of bronchitis cathryn aguilar PLAN OF CARE Activity Details Follow Up 3 Months, prn Reason:CHM/DM VITAL SIGNS Height 62 in 2017-04-18 Weight 199.9 lbs 2017-04-18 Temperature 98 degrees Fahrenheit 2017-04-18 Heart Rate 94 bpm 2017-04-18 Respiratory Rate 20 2017-04-18 Oximetry 96 % 2017-04-18 BMI 36.56 kg/m2 2017-04-18 Blood pressure systolic 122 mmHg 2017-04-18 Blood pressure diastolic 68 mmHg 2017-04-18 MEDICATIONS Medication Instructions Dosage Frequency Start Date End Date Duration Status Diltiazem HCl ER 120 MG Orally Once a day 1 capsule on an empty stomach in the morning 24h Active Potassium Chloride ER 10 TAKE ONE TABLET BY MOUTH TWICE A DAY WITH FOOD 90 Active Levemir Flexpen 100 UNIT/ML Subcutaneous 2 times a day 25 units 12h 12 months Active Pantoprazole Sodium 20 mg Orally 2 times a day 1 tablets 12h May, Active PredniSONE 50 mg Orally Once a day 1 tablet 24h Mar, Apr, 07 days Active ASA Oral Once a day 1 tab 24h Active Plavix 75 MG Orally Once a day 1 tablet 24h Active Fluticasone Propionate 50 MCG/ACT Nasally Once a day 1 spray in each nostril 24h Feb, 30 day(s) Not-Taking Metoprolol Tartrate 25 MG Orally Twice a day 1 tablet with food 12h Active Walker - as directed Jan, Active Hydrochlorothiazide 25 MG Orally Once a day 1 tablet 24h Active Test strips 8h Active NovoLog 100 UNIT/ML Subcutaneous 3 times a day 10 units with meals 8h Mar, 12 months Active Naproxen 500 mg Orally bid prn 1 tablet Sep, 90 days Active MetFORMIN HCl ER 750 MG Orally Once a day 1 tablet with evening meal 24h Active OneTouch Delica Lancets 33G 33 TEST BLOOD SUGAR THREE TIMES A DAY E11.8 30 Active Bath/Shower Seat 1 please provide one adult shower seat for patient use one time shower/bath seat for bathing Dec, Active CompAir Nebulizer - as directed Feb, 30 days Not-Taking Hydrocodone-Acetaminophen 10-325 MG Orally every 6 hrs 1 tablet as needed 6h Mar, 28 days Active Lancets - Active Pen [place] 31 gauge subcutaneously Once a day as directed 24h 90 Active Onglyza 5 Orally Once a day 1 tablet 24h Active Fenofibrate 54 TAKE ONE TABLET BY MOUTH DAILY WITH A MEAL 90 Active Albuterol Sulfate 0.63 MG/3ML Inhalation every 6 hrs 3 ml as needed 6h Feb, 30 days Not-Taking PredniSONE (Noah) Mar, Mar, Active Carafate 1 GM Orally Twice a day 1 tablet on an empty stomach 12h May, Active [place] Saline Nasal Gel 1 Nasally 2 times a day apply thin layer to nares bilat 12h Feb, Feb, 12 months Not-Taking Xanax 1 MG Orally 4 times a day 1 tablet 6h 28 days Active One Touch/One Touch II Starter 1 glucometer subcutaneously 3 times a day to take blood sugars daily Dispense as insurance allows 8h Sep, Active ProAir HFA 108 (90 Base) MCG/ACT Inhalation every 6 hrs 2 puffs as needed 6h Jan, 7 days Not-Taking Atorvastatin Calcium 80 MG Orally Once a day 1 tablet 24h Active RESULTS Name Result Date Reference Range A1C (IN HOUSE) 2017-04-18 A1C IN HOUSE 9.7 4.3 - 5.6 % Previous A1c 9.3 Lot [id number] Exp date 12/2018 PROCEDURES Procedure Date Ordered Result Body Site MEASURE BLOOD OXYGEN LEVEL Apr 18, 2017 GLYCATED HEMOGLOBIN TEST Apr 18, 2017 [facility] VISIT ESTABLISHED PATIENT Apr 18, 2017 INSTRUCTIONS MEDICATIONS ADMINISTERED No Known Medications MEDICAL (GENERAL) HISTORY Type Description Date Medical History diabetes mellitus Medical History hyperlipidemia Medical History hypertension Medical History Anxiety disorder Medical History Blood Clotting Disorder- Dr Galvan at [facility] Medical History Possible Anemia (currently under work up) - Dr Galvan [facility] Medical History irregular heart beat-sees dr. hassan Medical History history of pancreatitis Medical History gerd Medical History History of CVA with residual deficit Medical History Other complicated headache syndrome Medical History Stokes syndrome Surgical History tubal ligation Surgical History section Surgical History cholecystectomy Surgical History Toe Nail Removal x2 Hospitalization History Brain Stem Strokes x5. Has been hospitalized at then transfered to [place]. 2014 Hospitalization History Child Hospitalization History abd pain and shakiness - [facility] ED visit [facility] Hospitalization History [facility] ED for URI 04/16/17 Hospitalization History via [facility] 08/16/17
--- OUTSIDE RECORDS SUMMARY | 2017-11-04 16:51 | XMS REPORT ---
Author Author GAYEMICHAELSOTERO Organization [facility] Address [address] [place] [address] Care Team Providers Care Water Rights Specialist Name Role Phone HUIZARSOTERO Cox Unavailable PROBLEMS Type Condition ICD9-CM Code QTL62-KA Code Onset Dates Condition Status SNOMED Code Problem Other chronic pain G89.29 Active 83270177 Problem Tobacco abuse counseling Z71.6 Active 372695077 Problem Tobacco abuse Z72.0 Active 307682525 Problem Acute non intractable tension-type headache G44.209 Active 939365777 Problem Chronic pain syndrome G89.4 Active 730235890 Problem History of CVA with residual deficit I69.30 Active 900965716 Problem Seasonal allergic rhinitis due to pollen J30.1 Active 23114563 Problem Type 2 diabetes mellitus with hyperglycemia E11.65 Active 47571231 Problem prison current use of insulin Z79.4 Active 309167400 Problem Major depressive disorder, recurrent episode, moderate F33.1 Active 010030177 Problem Elevated liver enzymes R74.8 Active 281704771 Problem Vitamin D deficiency E55.9 Active 44626762 Problem Gastroesophageal reflux disease, esophagitis presence not specified K21.9 Active 589614935 Problem Essential hypertension I10 Active 22333327 Problem Generalized anxiety disorder F41.1 Active 03423911 Problem Hyperlipidemia, unspecified hyperlipidemia type E78.5 Active 65400595 Problem 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 Active 931544879 Problem DM (diabetes mellitus) with complications E11.8 Active 72173114 ALLERGIES No Information ENCOUNTERS Encounter Location Date Diagnosis [facility] [id number] [place] [address]95 -9026 Aug, Dysuria R30.0 [facility] [address], [place] [address] Aug, [facility] [id number] [place] [address] 22428- 2029 July, Cervicalgia M54.2 ; Acute non intractable tension-type headache G44.209 ; Type 2 diabetes mellitus with hyperglycemia E11.65 and 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 [facility] [id number] [place] [address] 18263- 3524 July, Generalized anxiety disorder F41.1 and Chronic pain syndrome G89.4 [facility] [facility] [address] 73340- 1777 July, Abscess L02.91 [place] [address] 51171- 4147 July, [place] [address] 31952- 5583 July, [place] [id number] [place] [address] 96941- 4616 July, Type 2 diabetes mellitus with hyperglycemia E11.65 ; prison current use of insulin Z79.4 ; Elevated [...] pain syndrome G89.4 and Vaginal candidiasis B37.3 [place] [id number] [place] [address] 79729- 7210 Jun, Generalized anxiety disorder F41.1 and Other chronic pain G89.29 [facility] [id number] [place] [address] 51793- 3334 Jun, [place] [id number] [place] [address] 35269- 6072 Jun, [place] [address] 12127- 3524 Jun, Abnormal levels of other serum enzymes R74.8 [facility] [id number] [place] [address] 43325- 7883 Jun, Abnormal levels of other serum enzymes R74.8 [facility] [id number] [place] [address] 85270- 1167 Jun, Elevated liver enzymes R74.8 [facility] [id number] [place] [address] 74810- 9752 Jun, Elevated liver enzymes R74.8 [facility] [id number] [place] [address] 58586- 1447 May, Right upper quadrant pain R10.11 ; Cervicalgia M54.2 and High risk medication use Z79.899 [facility] [place] [id number] [place] [address] 27377- 8051 May, Generalized anxiety disorder F41.1 and Other chronic pain G89.29 [facility] [id number] [place] [address] 07625- 6010 May, Canker sores oral K12.0 [place] [id number] [place] [address] 55779- 2107 May, Generalized anxiety disorder F41.1 and Other chronic pain G89.29 [facility] [id number] [place] [address] 80436- 9143 May, [facility] [id number] [place] [address] 85109- 4940 Apr, [facility] [id number] [place] [address] 44719 -9997 Apr, Acute cystitis with hematuria N30.01 and Dysuria R30.0 [facility] [id number] [place] [address] 67231- 2725 Apr, [facility] [address] 10941- 8243 08 Apr, 2017 [facility] [id number] [place] [address] 06991- 1176 08 Apr, 2017 DM (diabetes mellitus) with complications E11.8 [facility] [id number] [place] [address] 60339- 4785 06 Apr, 2017 DM (diabetes mellitus) with complications E11.8 [place] [id number] [place] [address] 59793- 4637 03 Apr, 2017 [place] [id number] [place] [address] 33047- 0588 Apr, [place] [id number] [place] [address] 50686- 4948 Apr, Other chronic pain G89.29 ; Generalized anxiety disorder F41.1 ; Cervicalgia M54.2 and Controlled substance agreement signed Z79.899 [facility] [id number] [place] [address] 02910 -6278 Mar, Abdominal pain R10.9 and Viral gastroenteritis A08.4 [place] [address] 73820- 3114 Mar, [facility] [id number] [place] [address] 87049- 2347 Mar, [place] [id number] [place] [address] 18435- 9336 Mar, DM (diabetes mellitus) with complications E11.8 [...] not specified K21.9 and 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 [place] [address] 17289- 1629 Mar, [facility] [facility] [address] 75202- 3667 Mar, DM (diabetes mellitus) with complications E11.8 ; Abnormal lung sounds R09.89 ; Bronchitis J40 and Hyperlipidemia, unspecified hyperlipidemia type E78.5 [facility] [address] 21349 -0124 Mar, URI, acute J06.9 [place] [address] 40717- 2128 Mar, [place] [address] 24417- 6925 Mar, DM (diabetes mellitus) with complications E11.8 [place] [address] 44337- 6755 Mar, Other chronic pain G89.29 and Generalized anxiety disorder F41.1 [place] [address] 02073- 0312 Feb, [place] [address] 65446- 6658 Feb, Mass of left lung R91.8 and Cervicalgia M54.2 [place] [address] 67099- 7852 Feb, [place] [address] 11508- 2730 Feb, [facility] [address] 21660 -9656 Feb, Cough R05 and Bronchitis J40 [facility] [address] 55358 -6983 Feb, Acute nasopharyngitis J00 and Bronchitis J40 [place] [address] 46707- 5267 Feb, Other chronic pain G89.29 and Generalized anxiety disorder F41.1 [facility] [id number] [place] [address] 36031- 1495 Jan, Encounter for immunization Z23 [facility] [address] 29179 -4825 Jan, [facility] [address] 93455 -4862 Jan, [facility] [address] 20893- 4428 Jan, Canker sores oral K12.0 [place] [address] 08285- 1717 14 Jan, 2017 [place] [address] 73967- 5156 07 Jan, 2017 Other chronic pain G89.29 and Generalized anxiety disorder F41.1 [place] [address] 78805- 4084 06 Jan, 2017 Cough R05 and Bronchitis J40 [facility] [place] [address] 53705 -5167 04 Jan, 2017 Bronchitis J40 [place] [address] 10995- 8642 Dec, Vitamin D deficiency E55.9 [place] [address] 98405- 8036 Dec, DM (diabetes mellitus) with complications E11.8 [place] [address] 33372- 1017 Dec, DM (diabetes mellitus) with complications E11.8 and Vitamin D deficiency E55.9 [place] [address] 92339- 1789 Dec, DM (diabetes mellitus) with complications E11.8 ; Essential hypertension I10 ; Hyperlipidemia, unspecified hyperlipidemia type E78.5 ; Vitamin D deficiency E55.9 ; Gastroesophageal reflux disease, esophagitis presence not specified K21.9 ; 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 ; Other chronic pain G89.29 ; Encounter for immunization Z23 and Generalized anxiety disorder F41.1 [place] [address] 41777- 0727 12 Nov, 2016 History of CVA with residual deficit I69.30 [place] [address] 62624- 7331 11 Nov, 2016 DM (diabetes mellitus) with complications E11.8 [place] [address] 35332- 0557 06 Nov, 2016 Left otitis media with effusion H65.92 ; Bronchitis J40 and Canker sores oral K12.0 [place] [address] 86427- 1026 Oct, [place] [address] 34181- 4000 04 Oct, 2016 DM (diabetes mellitus) with complications E11.8 [place] [address] 69379- 8064 02 Oct, 2016 [place] [address] 16160- 0795 Sep, DM (diabetes mellitus) with complications E11.8 [place] [address] 08045- 4180 Sep, DM (diabetes mellitus) with complications E11.8 ; Essential hypertension I10 ; Gastroesophageal reflux disease, esophagitis presence not specified K21.9 ; Hyperlipidemia, unspecified hyperlipidemia type E78.5 ; Tobacco abuse Z72.0 ; Vitamin D deficiency E55.9 ; History of CVA with residual deficit I69.30 and Seasonal allergic rhinitis due to pollen J30.1 [place] [id number] [place] [address] 91662- 7769 Sep, [place] [address] [place] [address]- 6164 Aug, [facility] [id number] [place] [address] 61413 -6338 Aug, Dysuria R30.0 ; Acute cystitis with hematuria N30.01 and Middle ear effusion, right H65.91 [facility] [id number] [place] [address] 50365- 8372 Aug, Other complicated headache syndrome G44.59 [facility] [id number] [place] [address] 51433- 9204 Aug, DM (diabetes mellitus) with complications E11.8 [facility] [id number] [place] [address] 11863- 1765 Aug, Dysuria R30.0 [facility] [id number] [place] [address] 43516- 2680 Aug, Dysuria R30.0 [facility] [id number] [place] [address] 97592- 5550 Aug, [facility] [id number] [place] [address] 64754- 8023 July, [facility] [id number] [address]- 9844 July, [facility] [id number] [place] [address] 74932- 9293 July, DM (diabetes mellitus) with complications E11.8 [facility] [id number] [place] [address] 85101- 0754 July, Other complicated headache syndrome G44.59 [facility] [id number] [place] [address] 77043- 6595 July, [facility] [address], [place] [address]7470 July, Dysuria R30.0 and Acute cystitis with hematuria N30.01 [facility] [id number] [place] [address] 05632- 1792 July, [place] [address] 75069- 2453 July, Other complicated headache syndrome G44.59 [facility] [address] 27305 -5126 Jun, Exposure to strep throat Z20.818 and Acute upper respiratory infection, unspecified J06.9 [place] [address] 88606- 4514 Jun, [place] [address] 39439- 3306 Jun, DM (diabetes mellitus) with complications E11.8 and Gastroesophageal reflux disease, esophagitis presence not specified K21.9 [place] [address] 05704- 0551 Jun, [place] [address] 69721- 6783 Jun, Dizziness R42 [facility] [place] [address] 90615 -9495 Jun, [place] [id number] [place] [address] 97329- 9801 Jun, [facility] [id number] [place] [address] 91244 -3079 May, Seasonal allergic rhinitis, unspecified allergic rhinitis trigger J30.2 [place] [id number] [place] [address] 27947- 5528 May, [place] [address] 25218- 0343 May, DM (diabetes mellitus) with complications E11.8 [...] Seasonal allergic rhinitis due to pollen J30.1 [facility] [id number] [place] [address] 10918- 8855 May, Gastroesophageal reflux disease, esophagitis presence not specified K21.9 [facility] [id number] [place] [address] 33068- 0267 May, [facility] [id number] [place] [address] 84824- 8832 Apr, [facility] [id number] [place] [address] 85833- 9888 Apr, [facility] [id number] [place] [address] 32494- 2354 Mar, [facility] [id number] [place] [address] 61093- 6725 Mar, [facility] [id number] [place] [address] 96307- 3955 Mar, [facility] [id number] [place] [address] 79655- 8268 Mar, [facility] [id number] [place] [address] 29254- 4284 Feb, [facility] [id number] [place] [address] 58076- 9551 Feb, [facility] [id number] [place] [address] 39897- 0131 Feb, [facility] [id number] [place] [address] 82333- 5608 Feb, Major depressive disorder, recurrent episode, moderate F33.1 ; Generalized anxiety disorder F41.1 ; Essential hypertension I10 ; DM ( diabetes mellitus) with complications E11.8 ; Hyperlipidemia, unspecified hyperlipidemia type E78.5 ; 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 and Gastroesophageal reflux disease, esophagitis presence not specified K21.9 [facility] [id number] [place] [address] 26131 -4435 Feb, Other viral agents as the cause of diseases classified elsewhere B97.89 and Acute upper respiratory infection, unspecified J06.9 [facility] [id number] [place] [address] 18664- 6341 Jan, [place] [address] 68275- 6142 Jan, [facility] [id number] [place] [address] 85409 -9258 Jan, Acute bronchitis, unspecified organism J20.9 [place] [address] 10412- 5089 Jan, [place] [address] 26084- 0765 Jan, History of CVA with residual deficit I69.30 [place] [id number] [place] [address] 43955- 7794 Jan, [place] [id number] [place] [address] 61255- 7725 Jan, Acute bronchitis, unspecified organism J20.9 [place] [id number] [place] [address] 73108- 6651 Jan, [place] [id number] [place] [address] 90664- 3787 Dec, History of CVA with residual deficit I69.30 [place] [address] 14548- 2663 Dec, [place] [address] [id number] [place] [address] 87201- 6035 Dec, Other chronic pain G89.29 ; DM (diabetes mellitus) with complications E11.8 and History of CVA with residual deficit I69.30 [place] [address] [place] [address] 19733- 2469 Nov, Major depressive disorder, recurrent episode, moderate F33.1 ; Irregular heart rhythm I49.9 ; Essential hypertension I10 ; History of CVA with residual deficit I69.30 ; DM (diabetes mellitus) with complications E11.8 ; Gastroesophageal reflux disease, esophagitis presence not specified K21.9 ; Hyperlipidemia, unspecified hyperlipidemia type E78.5 ; 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 ; Other chronic pain G89.29 and Generalized anxiety disorder F41.1 [place] [id number] [place] [address] 65602- 7644 Oct, Generalized anxiety disorder F41.1 ; Major depressive disorder, recurrent episode, moderate F33.1 ; Essential hypertension I10 ; History of CVA with residual deficit I69.30 ; 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 ; Gastroesophageal reflux disease, esophagitis presence not specified K21.9 ; Hyperlipidemia, unspecified hyperlipidemia type E78.5 ; Other chronic pain G89.29 and Bacterial conjunctivitis of left eye H10.[address] 56680- 5679 Sep, Chronic pain syndrome G89.4 and DM (diabetes mellitus) with complications E11.8 [place] [id number] [place] [address] 97630- 1615 Sep, Irregular heart rhythm I49.9 ; Routine health maintenance Z00.00 ; Essential hypertension I10 ; History of CVA with residual deficit I69.30 ; Gastroesophageal reflux disease, esophagitis presence not specified K21.9 ; DM (diabetes mellitus) with complications E11.8 ; Hyperlipidemia, unspecified hyperlipidemia type E78.5 and Other complicated headache syndrome G44.59 [place] [id number] [place] [address] 67458- 2647 Jun, [place] [id number] [place] [address] 00670- [address]77 Jun, [address] 53766- 0031 Aug, [facility] [address] [facility] [id number] [place] [address]- 1697 Jun, IMMUNIZATIONS No Known Immunizations SOCIAL HISTORY Never Assessed REASON FOR VISIT Controlled Med Refill PLAN OF CARE VITAL SIGNS MEDICATIONS Medication Instructions Dosage Frequency Start Date End Date Duration Status Hydrocodone-Acetaminophen 10-325 MG Orally every 6 hrs 1 tablet as needed 6h Feb, 28 days Active Xanax 1 MG Orally 4 times a day 1 tablet 6h 28 days Active RESULTS No Results PROCEDURES No Known procedures INSTRUCTIONS MEDICATIONS ADMINISTERED No Known Medications MEDICAL (GENERAL) HISTORY Type Description Date Medical History diabetes mellitus Medical History hyperlipidemia Medical History hypertension Medical History Anxiety disorder Medical History Blood Clotting Disorder- Dr Galvan at [facility] Medical History Possible Anemia (currently under work [...] Has been hospitalized at then transfered to [place]. 2014 Hospitalization History Child Hospitalization History abd pain and shakiness - [facility] ED visit [facility] Hospitalization History [facility] ED for URI 04/16/17 Hospitalization History via [facility] [place] 08/16/17
--- OUTSIDE RECORDS SUMMARY | 2017-11-04 16:52 | XMS REPORT ---
Author Author GAYE SOTERO Organization [facility] Address [address] [place] [address] Care Team Providers Care Community Education Coordinator Name Role Phone HUIZARSOTERO Cox Unavailable PROBLEMS Type Condition ICD9-CM Code PNU18-XM Code Onset Dates Condition Status SNOMED Code Problem Other chronic pain G89.29 Active 27788879 Problem Tobacco abuse counseling Z71.6 Active 312596334 Problem Tobacco abuse Z72.0 Active 773435977 Problem Acute non intractable tension-type headache G44.209 Active 899941608 Problem Chronic pain syndrome G89.4 Active 891435035 Problem History of CVA with residual deficit I69.30 Active 709883541 Problem Seasonal allergic rhinitis due to pollen J30.1 Active 83991493 Problem Type 2 diabetes mellitus with hyperglycemia E11.65 Active 88644624 Problem detention current use of insulin Z79.4 Active 247892036 Problem Major depressive disorder, recurrent episode, moderate F33.1 Active 134759976 Problem Elevated liver enzymes R74.8 Active 005197651 Problem Vitamin D deficiency E55.9 Active 01916031 Problem Gastroesophageal reflux disease, esophagitis presence not specified K21.9 Active 725915974 Problem Essential hypertension I10 Active 75196938 Problem Generalized anxiety disorder F41.1 Active 39791479 Problem Hyperlipidemia, unspecified hyperlipidemia type E78.5 Active 38617364 Problem 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 Active 002133726 Problem DM (diabetes mellitus) with complications E11.8 Active 49582738 ALLERGIES No Information ENCOUNTERS Encounter Location Date Diagnosis [facility] [address], [place] [address] 11 Aug, 2017 Acute cystitis with hematuria N30.01 and Candidal dermatitis B37.2 [facility] [id number], [place] [address] 08 Aug, 2017 Dysuria R30.0 [place] [id number], [place] [address] Aug, [facility] [id number] [place] [address] 57049 -8191 Aug, Dysuria R30.0 [facility] [id number] [place] [address] 33599- 9405 Aug, [facility] [id number] [place] [address] 82760- 0957 July, Cervicalgia M54.2 ; Acute non intractable tension-type headache G44.209 ; Type 2 diabetes mellitus with hyperglycemia E11.65 and detention current use of insulin Z79.4 [place] [id number] [place] [address] 77378- 0025 July, Generalized anxiety disorder F41.1 and Chronic pain syndrome G89.4 [place] [id number] [place] [address] 40621- 5782 July, Abscess L02.91 [place] [id number] [place] [address] 44113- 0111 July, [place] [id number] [place] [address] 14171- 8220 July, [place] [id number] [place] [address] 49532- 0399 July, Type 2 diabetes mellitus with hyperglycemia E11.65 ; detention current use of insulin Z79.4 ; Elevated [...] pain syndrome G89.4 and Vaginal candidiasis B37.3 [place] [address] [address] 47[address] Jun, Generalized anxiety disorder F41.1 and Other chronic pain G89.29 [facility] [id number] [place] [address] 74274- 3484 Jun, [facility] [id number] [place] [address] 10617- 2902 Jun, [facility] [id number] [place] [address] 24288- 3519 Jun, Abnormal levels of other serum enzymes R74.8 [facility] [id number] [place] [address] 99328- 0615 Jun, Abnormal levels of other serum enzymes R74.8 [facility] [id number] [place] [address] 77110- 9006 Jun, Elevated liver enzymes R74.8 [facility] [id number] [place] [address] 66709- 7543 Jun, Elevated liver enzymes R74.8 [facility] [id number] [place] [address] 62272- 3235 May, Right upper quadrant pain R10.11 ; Cervicalgia M54.2 and High risk medication use Z79.899 [facility] [address] [place] [address] 78600- 4237 May, Generalized anxiety disorder F41.1 and Other chronic pain G89.29 [facility] [address] [place] [address] 77835- 1275 May, Canker sores oral K12.0 [facility] [id number] [place] [address] 46197- 8515 May, Generalized anxiety disorder F41.1 and Other chronic pain G89.29 [facility] [address] [place] [address] 51607- 2801 May, [facility] [id number] [place] [address] 30922- 0543 Apr, [facility] [id number] [place] [address] 76748 -3049 Apr, Acute cystitis with hematuria N30.01 and Dysuria R30.0 [facility] [id number] [place] [address] 30234- 5885 Apr, [place] [address] 73188- 3552 Apr, [facility] [id number] [place] [address] 56885- 8841 Apr, DM (diabetes mellitus) with complications E11.8 [place] [id number] [place] [address] 63895- 5180 Apr, DM (diabetes mellitus) with complications E11.8 [facility] [id number] [place] [address] 80117- 5056 Apr, [facility] [id number] [place] [address] 52059- 3196 Apr, [facility] [id number] [place] [address] 23405- 3076 Apr, Other chronic pain G89.29 ; Generalized anxiety disorder F41.1 ; Cervicalgia M54.2 and Controlled substance agreement signed Z79.899 [facility] [id number] [place] [address] 70249 -6566 Mar, Abdominal pain R10.9 and Viral gastroenteritis A08.4 [place] [id number] [place] [address] 41533- 8024 Mar, [place] [id number] [place] [address] 95794- 6363 Mar, [facility] [id number] [place] [address] 94502- 1948 Mar, DM (diabetes mellitus) with complications E11.8 ; Type 2 diabetes mellitus with hyperglycemia E11.65 ; 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 ; Essential hypertension I10 ; Bronchitis J40 ; Major depressive disorder , recurrent episode, moderate F33.1 ; Hyperlipidemia, unspecified hyperlipidemia type E78.5 ; Tobacco abuse Z72.0 ; Tobacco abuse counseling Z71.6 ; History of CVA with residual deficit I69.30 ; Gastroesophageal reflux disease, esophagitis presence not specified K21.9 and 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 [place] [address] 62038- 4823 16 Mar, 2017 [place] [address] 77396- 4558 Mar, DM (diabetes mellitus) with complications E11.8 ; Abnormal lung sounds R09.89 ; Bronchitis J40 and Hyperlipidemia, unspecified hyperlipidemia type E78.5 [facility] [address] 76119 -4479 Mar, URI, acute J06.9 [place] [address] 99184- 6098 Mar, [place] [address] 66717- 6888 Mar, DM (diabetes mellitus) with complications E11.8 [place] [address] 61634- 7229 Mar, Other chronic pain G89.29 and Generalized anxiety disorder F41.1 [place] [address] 62820- 9135 Feb, [place] [address] 88465- 4490 Feb, Mass of left lung R91.8 and Cervicalgia M54.2 [place] [address] 58830- 8489 Feb, [place] [address] 54868- 7669 Feb, [facility] [address] 19328 -3358 Feb, Cough R05 and Bronchitis J40 [facility] [address] 84470 -9285 07 Feb, 2017 Acute nasopharyngitis J00 and Bronchitis J40 [facility] [address] 32190- 7134 06 Feb, 2017 Other chronic pain G89.29 and Generalized anxiety disorder F41.1 [facility] [address] 18439- 8491 Jan, Encounter for immunization Z23 [facility] [address] 61691 -8686 Jan, [facility] [address] 87842 -6925 18 Jan, 2017 [facility] [address] 18141- 4394 16 Jan, 2017 Canker sores oral K12.0 [place] [address] 47745- 1521 14 Jan, 2017 [place] [address] 08544- 0644 07 Jan, 2017 Other chronic pain G89.29 and Generalized anxiety disorder F41.1 [facility] [address] 43418- 7688 06 Jan, 2017 Cough R05 and Bronchitis J40 [facility] [address] 81638 -8388 Jan, Bronchitis J40 [facility] [address] 66396- 5512 Dec, Vitamin D deficiency E55.9 [facility] [address] 66971- 4981 Dec, DM (diabetes mellitus) with complications E11.8 [place] [address] 94773- 6539 19 Dec, 2016 DM (diabetes mellitus) with complications E11.8 and Vitamin D deficiency E55.9 [place] [address] 68903- 8582 10 Dec, 2016 DM (diabetes mellitus) with complications E11.8 ; Essential hypertension I10 ; Hyperlipidemia, unspecified hyperlipidemia type E78.5 ; Vitamin D deficiency E55.9 ; Gastroesophageal reflux disease, esophagitis presence not specified K21.9 ; 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 ; Other chronic pain G89.29 ; Encounter for immunization Z23 and Generalized anxiety disorder F41.1 [place] [address] 41729- 6608 12 Nov, 2016 History of CVA with residual deficit I69.[address] 36875- 1649 11 Nov, 2016 DM (diabetes mellitus) with complications E11.8 [place] [address] 26503- 9618 06 Nov, 2016 Left otitis media with effusion H65.92 ; Bronchitis J40 and Canker sores oral K12.0 [place] [address] 33962- 4287 Oct, [place] [address] 50614- 0083 Oct, DM (diabetes mellitus) with complications E11.8 [place] [address] 44920- 4608 Oct, [place] [address] 65152- 4440 Sep, DM (diabetes mellitus) with complications E11.8 [place] [address] 50162- 3482 Sep, DM (diabetes mellitus) with complications E11.8 ; Essential hypertension I10 ; Gastroesophageal reflux disease, esophagitis presence not specified K21.9 ; Hyperlipidemia, unspecified hyperlipidemia type E78.5 ; Tobacco abuse Z72.0 ; Vitamin D deficiency E55.9 ; History of CVA with residual deficit I69.30 and Seasonal allergic rhinitis due to pollen J30.1 [facility] [id number] [place] [address] 22138- 7548 Sep, [facility] [id number] [place] [address] 32370- 5031 Aug, [facility] [id number] [place] [address] 39117 -8339 Aug, Dysuria R30.0 ; Acute cystitis with hematuria N30.01 and Middle ear effusion, right H65.91 [facility] [id number] [place] [address] 70559- 4454 Aug, Other complicated headache syndrome G44.59 [facility] [id number] [place] [address] 17995- 3820 Aug, DM (diabetes mellitus) with complications E11.8 [place] [id number] [place] [address] 51930- 3350 14 Aug, 2016 Dysuria R30.0 [facility] [id number] [place] [address] 61114- 9518 12 Aug, 2016 Dysuria R30.0 [facility] [id number] [place] [address] 54256- 2261 Aug, [facility] [id number] [place] [address] 78101- 0886 July, [place] [id number] [place] [address] 31119- 2638 July, [place] [id number] [place] [address] 71174- 4780 July, DM (diabetes mellitus) with complications E11.8 [facility] [id number] [place] [address] 39044- 6619 July, Other complicated headache syndrome G44.59 [facility] [id number] [place] [address] 11368- 9378 July, [facility] [id number] [place] [address] 14020 -4450 July, Dysuria R30.0 and Acute cystitis with hematuria N30.01 [facility] [address] 35603- 0674 July, [facility] [address] 95856- 6961 July, Other complicated headache syndrome G44.59 [facility] [id number] [place] [address] 19302 -1184 Jun, Exposure to strep throat Z20.818 and Acute upper respiratory infection, unspecified J06.9 [facility] [id number] [place] [address] 81724- 8449 Jun, [facility] [id number] [place] [address] 32081- 1957 Jun, DM (diabetes mellitus) with complications E11.8 and Gastroesophageal reflux disease, esophagitis presence not specified K21.9 [facility] [id number] [place] [address] 37208- 3162 Jun, [facility] [id number] [place] [address] 47353- 4430 Jun, Dizziness R42 [facility] [id number] [place] [address] 86847 -5073 Jun, [facility] [id number] [place] [address] 34208- 1600 Jun, [facility] [id number] [place] [address] 92170 -2592 May, Seasonal allergic rhinitis, unspecified allergic rhinitis trigger J30.2 [facility] [id number] [place] [address] 76513- 4422 May, [facility] [id number] [place] [address] 09195- 3139 May, DM (diabetes mellitus) with complications E11.8 [...] Seasonal allergic rhinitis due to pollen J30.1 [facility] [id number] [place] [address] 65932- 7944 May, Gastroesophageal reflux disease, esophagitis presence not specified K21.9 [facility] [id number] [place] [address] 79072- 2491 May, [facility] [id number] [place] [address] 22675- 0234 Apr, [facility] [id number] [place] [address] 39181- 6560 Apr, [facility] [id number] [place] [address] 83718- 7503 Mar, [facility] [id number] [place] [address] 76577- 4132 Mar, [facility] [id number] [place] [address] 97012- 1598 Mar, [facility] [id number] [place] [address] 76359- 8990 Mar, [facility] [id number] [place] [address] 501945- 5773 Feb, [facility] [id number] [place] [address] 98577- 0783 Feb, [facility] [id number] [place] [address] 42491- 3737 Feb, [place] [address] 05712- 9344 Feb, Major depressive disorder, recurrent episode, moderate F33.1 ; Generalized anxiety disorder F41.1 ; Essential hypertension I10 ; DM ( diabetes mellitus) with complications E11.8 ; Hyperlipidemia, unspecified hyperlipidemia type E78.5 ; 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 and Gastroesophageal reflux disease, esophagitis presence not specified K21.9 [facility] [id number] [place] [address] 86373 -4028 Feb, Other viral agents as the cause of diseases classified elsewhere B97.89 and Acute upper respiratory infection, unspecified J06.9 [place] [address] 47782- 7941 Jan, [place] [address] 64414- 9955 Jan, [facility] [id number] [place] [address] 15370 -1118 Jan, Acute bronchitis, unspecified organism J20.9 [place] [id number] [place] [address] 94019- 3520 Jan, [place] [id number] [place] [address] 78091- 6898 Jan, History of CVA with residual deficit I69.30 [place] [id number] [place] [address] 19952- 4086 Jan, [place] [address] 72486- 5205 Jan, Acute bronchitis, unspecified organism J20.9 [place] [id number] [place] [address] 98405- 4254 Jan, [place] [address] [place] [address]- 4977 31 Dec, 2015 History of CVA with residual deficit I69.30 [place] [address] [place] [address] 48500- 4528 27 Dec, 2015 [place] [address] [place] [address] 97588- 0908 18 Dec, 2015 Other chronic pain G89.29 ; DM (diabetes mellitus) with complications E11.8 and History of CVA with residual deficit I69.30 [place] [address] [place] [address] 06441- 3697 Nov, Major depressive disorder, recurrent episode, moderate F33.1 ; Irregular heart rhythm I49.9 ; Essential hypertension I10 ; History of CVA with residual deficit I69.30 ; DM (diabetes mellitus) with complications E11.8 ; Gastroesophageal reflux disease, esophagitis presence not specified K21.9 ; Hyperlipidemia, unspecified hyperlipidemia type E78.5 ; 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 ; Other chronic pain G89.29 and Generalized anxiety disorder F41.1 [place] [address] [place] [address] 20603- 3526 Oct, Generalized anxiety disorder F41.1 ; Major depressive disorder, recurrent episode, moderate F33.1 ; Essential hypertension I10 ; History of CVA with residual deficit I69.30 ; DM (diabetes mellitus) with complications E11.8 ; Gastroesophageal reflux disease, esophagitis presence not specified K21.9 ; Hyperlipidemia, unspecified hyperlipidemia type E78.5 ; Other chronic pain G89.29 and Bacterial conjunctivitis of left eye H10.9 [place] [id number] [address]- 1290 Sep, Chronic pain syndrome G89.4 and DM (diabetes mellitus) with complications E11.8 [place] [address] [place] [address] 74183- 7196 05 Sep, 2015 Irregular heart rhythm I49.9 ; Routine health maintenance Z00.00 ; Essential hypertension I10 ; History of CVA with residual deficit I69.30 ; Gastroesophageal reflux disease, esophagitis presence not specified K21.9 ; DM (diabetes mellitus) with complications E11.8 ; Hyperlipidemia, unspecified hyperlipidemia type E78.5 and Other complicated headache syndrome G44.59 [facility] [address] [address]- 0659 Jun, [facility] [address], [place] [address]- 5460 Jun, [facility] [address], [place] [address]- 2303 Aug, [facility] [id number] [address]- 7765 Jun, IMMUNIZATIONS No Known Immunizations SOCIAL HISTORY Never Assessed REASON FOR VISIT Controlled med refill PLAN OF CARE VITAL SIGNS MEDICATIONS Unknown [...] Has been hospitalized at then transfered to [facility]. 2014 Hospitalization History Child Hospitalization History abd pain and shakiness - [facility] ED visit [facility] Hospitalization History [facility] ED for URI 04/16/17 Hospitalization History via [facility] emergency department er 08/16/17
--- OUTSIDE RECORDS SUMMARY | 2017-11-04 16:53 | XMS REPORT ---
Author Author GAYE SOTERO Organization [facility] Address [address] [place] [address] Care Team Providers Care Assistant To The President Name Role Phone HUIZARSOTERO Cox Unavailable PROBLEMS Type Condition ICD9-CM Code YRV31-JA Code Onset Dates Condition Status SNOMED Code Problem Other chronic pain G89.29 Active 86315647 Problem Tobacco abuse counseling Z71.6 Active 555180049 Problem Tobacco abuse Z72.0 Active 866365594 Problem Acute non intractable tension-type headache G44.209 Active 573598038 Problem Chronic pain syndrome G89.4 Active 131626293 Problem History of CVA with residual deficit I69.30 Active 682183632 Problem Seasonal allergic rhinitis due to pollen J30.1 Active 99854595 Problem Type 2 diabetes mellitus with hyperglycemia E11.65 Active 12501135 Problem assisted current use of insulin Z79.4 Active 242001005 Problem Major depressive disorder, recurrent episode, moderate F33.1 Active 287303128 Problem Elevated liver enzymes R74.8 Active 503511054 Problem Vitamin D deficiency E55.9 Active 04686080 Problem Gastroesophageal reflux disease, esophagitis presence not specified K21.9 Active 691677293 Problem Essential hypertension I10 Active 35745761 Problem Generalized anxiety disorder F41.1 Active 00822217 Problem Hyperlipidemia, unspecified hyperlipidemia type E78.5 Active 03515830 Problem 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 Active 465952625 Problem DM (diabetes mellitus) with complications E11.8 Active 34701629 ALLERGIES No Information ENCOUNTERS Encounter Location Date Diagnosis [facility] [address] [address] 11 Aug, 2017 Acute cystitis with hematuria N30.01 and Candidal dermatitis B37.2 [facility] [id number] [address] 08 Aug, 2017 Dysuria R30.0 [place] [address] [address] Aug, [facility] [id number] [place] [address] 57926 -2783 Aug, Dysuria R30.0 [facility] [id number] [place] [address] 93712- 6564 Aug, [facility] [id number] [place] [address] 11176- 3936 July, Cervicalgia M54.2 ; Acute non intractable tension-type headache G44.209 ; Type 2 diabetes mellitus with hyperglycemia E11.65 and assisted current use of insulin Z79.4 [place] [id number] [place] [address] 22569- 9430 July, Generalized anxiety disorder F41.1 and Chronic pain syndrome G89.4 [place] [id number] [place] [address] 70940- 8981 July, Abscess L02.91 [place] [id number] [place] [address] 53595- 7720 July, [place] [id number] [place] [address] 97488- 6906 July, [place] [id number] [place] [address] 50839- 5131 July, Type 2 diabetes mellitus with hyperglycemia E11.65 ; assisted current use of insulin Z79.4 ; Elevated [...] pain syndrome G89.4 and Vaginal candidiasis B37.3 [facility] [id number] [address] Jun, Generalized anxiety disorder F41.1 and Other chronic pain G89.29 [facility] [id number] [place] [address] 71292- 5153 Jun, [facility] [id number] [place] [address] 37533- 2951 Jun, [facility] [id number] [place] [address] 39234- 7673 Jun, Abnormal levels of other serum enzymes R74.8 [facility] [id number] [place] [address] 72997- 1759 Jun, Abnormal levels of other serum enzymes R74.8 [facility] [id number] [place] [address] 13257- 9406 Jun, Elevated liver enzymes R74.8 [facility] [id number] [place] [address] 75392- 5271 Jun, Elevated liver enzymes R74.8 [facility] [id number] [place] [address] 86873- 7099 May, Right upper quadrant pain R10.11 ; Cervicalgia M54.2 and High risk medication use Z79.899 [facility] [address] [place] [address] 58968- 8234 May, Generalized anxiety disorder F41.1 and Other chronic pain G89.29 [facility] [address] [place] [address] 05655- 8983 May, Canker sores oral K12.0 [facility] [id number] [place] [address] 96756- 7417 May, Generalized anxiety disorder F41.1 and Other chronic pain G89.29 [facility] [address] [place] [address] 74754- 6472 May, [facility] [id number] [place] [address] 66642- 9377 Apr, [facility] [id number] [place] [address] 48465 -1703 Apr, Acute cystitis with hematuria N30.01 and Dysuria R30.0 [facility] [id number] [place] [address] 39165- 9686 Apr, [place] [address] 45648- 1768 Apr, [facility] [id number] [place] [address] 76982- 3800 Apr, DM (diabetes mellitus) with complications E11.8 [place] [id number] [place] [address] 42068- 3398 Apr, DM (diabetes mellitus) with complications E11.8 [facility] [id number] [place] [address] 03828- 7937 Apr, [facility] [id number] [place] [address] 34928- 6822 Apr, [facility] [id number] [place] [address] 87136- 0511 Apr, Other chronic pain G89.29 ; Generalized anxiety disorder F41.1 ; Cervicalgia M54.2 and Controlled substance agreement signed Z79.899 [facility] [id number] [place] [address] 56658 -2246 Mar, Abdominal pain R10.9 and Viral gastroenteritis A08.4 [place] [id number] [place] [address] 46801- 2825 Mar, [place] [id number] [place] [address] 00522- 4488 Mar, [facility] [id number] [place] [address] 54214- 1447 Mar, DM (diabetes mellitus) with complications E11.8 ; Type 2 diabetes mellitus with hyperglycemia E11.65 ; 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 ; Essential hypertension I10 ; Bronchitis J40 ; Major depressive disorder , recurrent episode, moderate F33.1 ; Hyperlipidemia, unspecified hyperlipidemia type E78.5 ; Tobacco abuse Z72.0 ; Tobacco abuse counseling Z71.6 ; History of CVA with residual deficit I69.30 ; Gastroesophageal reflux disease, esophagitis presence not specified K21.9 and 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 [place] [address] 70822- 9253 16 Mar, 2017 [place] [address] 40375- 2551 Mar, DM (diabetes mellitus) with complications E11.8 ; Abnormal lung sounds R09.89 ; Bronchitis J40 and Hyperlipidemia, unspecified hyperlipidemia type E78.5 [facility] [address] 83867 -0644 Mar, URI, acute J06.9 [place] [address] 56509- 1112 Mar, [place] [address] 87932- 1087 Mar, DM (diabetes mellitus) with complications E11.8 [place] [address] 00173- 6091 Mar, Other chronic pain G89.29 and Generalized anxiety disorder F41.1 [place] [address] 53935- 5453 Feb, [place] [address] 23513- 2721 Feb, Mass of left lung R91.8 and Cervicalgia M54.2 [place] [address] 92527- 3541 Feb, [place] [address] 93459- 5158 Feb, [facility] [address] 23453 -1594 Feb, Cough R05 and Bronchitis J40 [facility] [address] 91128 -4853 07 Feb, 2017 Acute nasopharyngitis J00 and Bronchitis J40 [facility] [address] 16687- 8163 06 Feb, 2017 Other chronic pain G89.29 and Generalized anxiety disorder F41.1 [facility] [address] 20954- 6909 Jan, Encounter for immunization Z23 [facility] [address] 24123 -7221 Jan, [facility] [address] 21109 -3605 18 Jan, 2017 [facility] [address] 54168- 3621 16 Jan, 2017 Canker sores oral K12.0 [place] [address] 72700- 5024 14 Jan, 2017 [place] [address] 07857- 3768 07 Jan, 2017 Other chronic pain G89.29 and Generalized anxiety disorder F41.1 [facility] [address] 43323- 0810 06 Jan, 2017 Cough R05 and Bronchitis J40 [facility] [address] 08076 -8208 Jan, Bronchitis J40 [facility] [address] 07770- 3100 Dec, Vitamin D deficiency E55.9 [facility] [address] 68113- 8026 Dec, DM (diabetes mellitus) with complications E11.8 [place] [address] 55116- 5706 19 Dec, 2016 DM (diabetes mellitus) with complications E11.8 and Vitamin D deficiency E55.9 [place] [address] 99679- 2540 10 Dec, 2016 DM (diabetes mellitus) with complications E11.8 ; Essential hypertension I10 ; Hyperlipidemia, unspecified hyperlipidemia type E78.5 ; Vitamin D deficiency E55.9 ; Gastroesophageal reflux disease, esophagitis presence not specified K21.9 ; 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 ; Other chronic pain G89.29 ; Encounter for immunization Z23 and Generalized anxiety disorder F41.1 [place] [address] 67842- 0568 12 Nov, 2016 History of CVA with residual deficit I69.[address] 42956- 1616 11 Nov, 2016 DM (diabetes mellitus) with complications E11.8 [place] [address] 61622- 1669 06 Nov, 2016 Left otitis media with effusion H65.92 ; Bronchitis J40 and Canker sores oral K12.0 [place] [address] 48804- 8899 Oct, [place] [address] 99074- 2787 Oct, DM (diabetes mellitus) with complications E11.8 [place] [address] 99539- 4017 Oct, [place] [address] 86471- 5573 Sep, DM (diabetes mellitus) with complications E11.8 [place] [address] 76881- 3175 Sep, DM (diabetes mellitus) with complications E11.8 ; Essential hypertension I10 ; Gastroesophageal reflux disease, esophagitis presence not specified K21.9 ; Hyperlipidemia, unspecified hyperlipidemia type E78.5 ; Tobacco abuse Z72.0 ; Vitamin D deficiency E55.9 ; History of CVA with residual deficit I69.30 and Seasonal allergic rhinitis due to pollen J30.1 [facility] [id number] [place] [address] 21531- 0319 Sep, [facility] [id number] [place] [address] 30805- 3749 Aug, [facility] [id number] [place] [address] 40576 -7044 Aug, Dysuria R30.0 ; Acute cystitis with hematuria N30.01 and Middle ear effusion, right H65.91 [facility] [id number] [place] [address] 30811- 1258 Aug, Other complicated headache syndrome G44.59 [facility] [id number] [place] [address] 68435- 7371 Aug, DM (diabetes mellitus) with complications E11.8 [facility] [id number] [place] [address] 11327- 5560 14 Aug, 2016 Dysuria R30.0 [facility] [id number] [place] [address] 50014- 2577 12 Aug, 2016 Dysuria R30.0 [facility] [id number] [place] [address] 18339- 0349 Aug, [facility] [id number] [place] [address] 73937- 0551 July, [place] [id number] [place] [address] 90752- 9718 July, [place] [id number] [place] [address] 45675- 6139 July, DM (diabetes mellitus) with complications E11.8 [facility] [id number] [place] [address] 69269- 2541 July, Other complicated headache syndrome G44.59 [facility] [id number] [place] [address] 26682- 5991 July, [facility] [id number] [place] [address] 91600 -3036 July, Dysuria R30.0 and Acute cystitis with hematuria N30.01 [facility] [address] 93094- 9383 July, [facility] [address] 69569- 3578 July, Other complicated headache syndrome G44.59 [facility] [id number] [place] [address] 79817 -2976 Jun, Exposure to strep throat Z20.818 and Acute upper respiratory infection, unspecified J06.9 [facility] [id number] [place] [address] 95950- 1152 Jun, [facility] [id number] [place] [address] 72069- 0831 Jun, DM (diabetes mellitus) with complications E11.8 and Gastroesophageal reflux disease, esophagitis presence not specified K21.9 [facility] [id number] [place] [address] 76048- 9985 Jun, [facility] [id number] [place] [address] 01072- 3781 Jun, Dizziness R42 [facility] [id number] [place] [address] 12007 -1090 Jun, [facility] [id number] [place] [address] 51324- 2385 Jun, [facility] [id number] [place] [address] 52271 -6570 May, Seasonal allergic rhinitis, unspecified allergic rhinitis trigger J30.2 [facility] [id number] [place] [address] 67032- 1206 May, [facility] [id number] [place] [address] 54546- 9153 May, DM (diabetes mellitus) with complications E11.8 [...] due to pollen J30.1 [facility] [id number] [place] [address] 06582- 3984 May, Gastroesophageal reflux disease, esophagitis presence not specified K21.9 [facility] [id number] [place] [address] 72720- 3549 May, [facility] [id number] [place] [address] 54892- 9849 Apr, [facility] [id number] [place] [address] 48320- 2933 Apr, [facility] [id number] [place] [address] 36730- 1236 Mar, [facility] [id number] [place] [address] 02227- 0113 Mar, [facility] [id number] [place] [address] 03453- 7221 Mar, [facility] [id number] [place] [address] 65613- 7705 Mar, [facility] [id number] [place] [address] 936726- 2235 Feb, [facility] [id number] [place] [address] 11345- 6801 Feb, [facility] [id number] [place] [address] 76052- 1773 Feb, [place] [address] 32069- 4956 Feb, Major depressive disorder, recurrent episode, moderate F33.1 ; Generalized anxiety disorder F41.1 ; Essential hypertension I10 ; DM ( diabetes mellitus) with complications E11.8 ; Hyperlipidemia, unspecified hyperlipidemia type E78.5 ; 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 and Gastroesophageal reflux disease, esophagitis presence not specified K21.9 [facility] [id number] [place] [address] 73977 -8043 Feb, Other viral agents as the cause of diseases classified elsewhere B97.89 and Acute upper respiratory infection, unspecified J06.9 [place] [address] 71653- 8971 Jan, [place] [address] 54070- 6178 Jan, [facility] [id number] [place] [address] 16858 -0827 Jan, Acute bronchitis, unspecified organism J20.9 [place] [id number] [place] [address] 44755- 3765 Jan, [place] [id number] [place] [address] 01324- 9151 Jan, History of CVA with residual deficit I69.30 [place] [id number] [place] [address] 96540- 4192 Jan, [place] [address] 51264- 9671 Jan, Acute bronchitis, unspecified organism J20.9 [place] [id number] [place] [address] 09891- 7903 Jan, [place] [address] [place] [address]- 3542 31 Dec, 2015 History of CVA with residual deficit I69.30 [place] [address] [place] [address] 37177- 1049 27 Dec, 2015 [place] [address] [place] [address] 75683- 9766 18 Dec, 2015 Other chronic pain G89.29 ; DM (diabetes mellitus) with complications E11.8 and History of CVA with residual deficit I69.30 [place] [address] [place] [address] 74520- 2931 Nov, Major depressive disorder, recurrent episode, moderate F33.1 ; Irregular heart rhythm I49.9 ; Essential hypertension I10 ; History of CVA with residual deficit I69.30 ; DM (diabetes mellitus) with complications E11.8 ; Gastroesophageal reflux disease, esophagitis presence not specified K21.9 ; Hyperlipidemia, unspecified hyperlipidemia type E78.5 ; 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 ; Other chronic pain G89.29 and Generalized anxiety disorder F41.1 [place] [address] [place] [address] 89877- 8308 Oct, Generalized anxiety disorder F41.1 ; Major depressive disorder, recurrent episode, moderate F33.1 ; Essential hypertension I10 ; History of CVA with residual deficit I69.30 ; DM (diabetes mellitus) with complications E11.8 ; Gastroesophageal reflux disease, esophagitis presence not specified K21.9 ; Hyperlipidemia, unspecified hyperlipidemia type E78.5 ; Other chronic pain G89.29 and Bacterial conjunctivitis of left eye H10.9 [place] [id number] [address]- 5075 Sep, Chronic pain syndrome G89.4 and DM (diabetes mellitus) with complications E11.8 [place] [address] [place] [address] 17710- 8134 05 Sep, 2015 Irregular heart rhythm I49.9 ; Routine health maintenance Z00.00 ; Essential hypertension I10 ; History of CVA with residual deficit I69.30 ; Gastroesophageal reflux disease, esophagitis presence not specified K21.9 ; DM (diabetes mellitus) with complications E11.8 ; Hyperlipidemia, unspecified hyperlipidemia type E78.5 and Other complicated headache syndrome G44.59 [facility] [address] [address]- 0307 Jun, [facility] [address] [address]- 6996 Jun, [facility] [address] [address]- 0224 Aug, [facility] [address] [address]- 1460 Jun, IMMUNIZATIONS No Known Immunizations SOCIAL HISTORY Never Assessed REASON FOR VISIT ER Notification/Follow up PLAN OF CARE VITAL SIGNS MEDICATIONS Unknown Medications RESULTS No Results PROCEDURES No Known procedures INSTRUCTIONS MEDICATIONS ADMINISTERED No Known Medications MEDICAL (GENERAL) HISTORY Type Description Date Medical History diabetes mellitus Medical History hyperlipidemia Medical History hypertension Medical History Anxiety disorder Medical History Blood Clotting Disorder- Dr Galvan at [facility] Medical History Possible Anemia (currently under work up) - Dr Galvan [facility] Medical History irregular heart beat-sees dr. hassan Medical History history of pancreatitis Medical History gerd Medical History History of CVA with residual deficit Medical History Other complicated headache syndrome Medical History Stokes syndrome Surgical History tubal ligation Surgical History section Surgical History cholecystectomy Surgical History Toe Nail Removal x2 Hospitalization History Brain Stem Strokes x5. Has been hospitalized at then transfered to [facility]. 2014 Hospitalization History Child Hospitalization History abd pain and shakiness - [facility] ED visit [facility] Hospitalization History [facility] ED for URI 04/16/17 Hospitalization History via [facility] er 08/16/17
--- OUTSIDE RECORDS SUMMARY | 2017-11-04 16:56 | XMS REPORT ---
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 Active 33673115 Problem Tobacco abuse Z72.0 Active 174749696 Problem Other chronic pain G89.29 Active 64388807 Problem Chronic pain syndrome G89.4 Active 579306753 Problem Type 2 diabetes mellitus with hyperglycemia E11.65 Active 90839176 Problem Seasonal allergic rhinitis due to pollen J30.1 Active 33423426 Problem Tobacco abuse counseling Z71.6 Active 395368714 Problem senior living current use of insulin Z79.4 Active 841404835 Problem History of CVA with residual deficit I69.30 Active 188642347 Problem Vitamin D deficiency E55.9 Active 65810476 Problem Major depressive disorder, recurrent episode, moderate F33.1 Active 776390816 Problem 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 Active 908274831 Problem Hyperlipidemia, unspecified hyperlipidemia type E78.5 Active 76967626 Problem Elevated liver enzymes R74.8 Active 937691518 Problem Gastroesophageal reflux disease, esophagitis presence not specified K21.9 Active 562591386 Problem Generalized anxiety disorder F41.1 Active 17243205 Problem Essential hypertension I10 Active 27414560 ALLERGIES No Information ENCOUNTERS Encounter Location Date Diagnosis [facility] [id number], [place] [address] July, Generalized anxiety disorder F41.1 and Chronic pain syndrome G89.4 [facility] [address], [place] [address] July, Abscess L02.91 [facility] [id number], [place] [address] July, [place] [id number] [place] [address] 76400- 9571 July, [place] [address] [address] July, Type 2 diabetes mellitus with hyperglycemia E11.65 ; oysterman current use of insulin Z79.4 ; Elevated [...] pain syndrome G89.4 and Vaginal candidiasis B37.3 [place] [address] [address]- 6906 Jun, Generalized anxiety disorder F41.1 and Other chronic pain G89.29 [place] [id number] [place] [address] 09952- 2550 Jun, [place] [id number] [place] [address] 98560- 7669 Jun, [place] [id number] [place] [address] 31404- 6026 Jun, Abnormal levels of other serum enzymes R74.8 [place] [id number] [place] [address] 45973- 0921 Jun, Abnormal levels of other serum enzymes R74.8 [place] [id number] [place] [address] 66658- 3729 Jun, Elevated liver enzymes R74.8 [place] [id number] [place] [address] 25740- 4399 Jun, Elevated liver enzymes R74.8 [place] [id number] [place] [address] 53107- 3313 May, Right upper quadrant pain R10.11 ; Cervicalgia M54.2 and High risk medication use Z79.899 [facility] [id number] [place] [address] 10703- 5546 May, Generalized anxiety disorder F41.1 and Other chronic pain G89.29 [facility] [address] 69[address]- 7324 May, Canker sores oral K12.0 [facility] [address] 42[address]- 1370 May, Generalized anxiety disorder F41.1 and Other chronic pain G89.29 [facility] [address] 12[address]- 1555 May, [facility] [address] 27563- 4528 Apr, 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 ; Type 2 diabetes mellitus with hyperglycemia E11.65 ; oysterman current use of insulin Z79.4 ; Essential hypertension I10 ; Bronchitis J40 ; Major depressive disorder , recurrent episode, moderate F33.1 ; Hyperlipidemia, unspecified hyperlipidemia type E78.5 ; Tobacco abuse Z72.0 ; Tobacco abuse counseling Z71.6 ; History of CVA with residual deficit I69.30 ; Gastroesophageal reflux disease, esophagitis presence not specified K21.9 and 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 [id number] [place] [address] 34821- 5737 Mar, [place] [id number] [place] [address] 75962- 2478 Mar, 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 ; Abnormal lung sounds R09.89 ; Bronchitis J40 and Hyperlipidemia, unspecified hyperlipidemia type E78.5 [facility] [id number] [place] [address] 02371 -9795 Mar, URI, acute J06.9 [id number] [place] [address] 56375- 9858 Mar, [address] [address] 87200- 6992 Mar, 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 [place] [address] 81570- 8564 Mar, Other chronic pain G89.29 and Generalized anxiety disorder F41.[address] 7[address]69- 3214 Feb, [place] [address] 67405- 4673 Feb, Mass of left lung R91.8 and Cervicalgia M54.[address] 24566- 2217 Feb, [place] [address] 95184- 9800 Feb, [facility] [address] [place] [address] 39945 -4327 Feb, Cough R05 and Bronchitis J40 [facility] [address] [address] 07 Feb, 2017 Acute nasopharyngitis J00 and Bronchitis J40 [place] [address] 31976- 6368 06 Feb, 2017 Other chronic pain G89.29 and Generalized anxiety disorder F41.1 [place] [address] 45281- 8916 Jan, Encounter for immunization Z23 [facility] [address] [place] [address] 90266 -9036 Jan, [facility] [address] [address] Jan, [address] 71953- 2564 16 Jan, 2017 Canker sores oral K12.0 [place] [address] 58142- 6881 14 Jan, 2017 [place] [address] 88673- 2540 07 Jan, 2017 Other chronic pain G89.29 and Generalized anxiety disorder F41.[address] 25827- 0404 06 Jan, 2017 Cough R05 and Bronchitis J40 [facility] [address] 59130 -4052 Jan, Bronchitis J40 [address] 84483- 5741 Dec, Vitamin D deficiency E55.[address] 43200- 3938 Dec, DM (diabetes mellitus) with complications E11.[address] 86289- 8563 Dec, 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 and Vitamin D deficiency E55.[address] 91705- 0554 10 Dec, 2016 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 ; Essential hypertension I10 ; Hyperlipidemia, unspecified hyperlipidemia type E78.5 ; Vitamin D deficiency E55.9 ; Gastroesophageal reflux disease, esophagitis presence not specified K21.9 ; 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 ; Other chronic pain G89.29 ; Encounter for immunization Z23 and Generalized anxiety disorder F41.[address] 70766- 7004 12 Nov, 2016 History of CVA with residual deficit I69.[address] 73484- 8099 11 Nov, 2016 DM (diabetes mellitus) with complications E11.[address] 42947- 7108 Nov, Left otitis media with effusion H65.92 ; Bronchitis J40 and Canker sores oral K12.0 [place] [id number] [place] [address] 19700- 8290 Oct, [facility] [id number] [place] [address] 14719- 1831 Oct, 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 [place] [address] 43966- 8511 Oct, [place] [address] 34352- 5821 Sep, 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 [place] [id number] [place] [address] 10324- 6327 Sep, 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 [facility] [address], [place] [address]- 4358 14 Aug, 2016 Dysuria R30.0 [facility] [id number] [place] [address] 92828- 3614 Aug, Dysuria R30.0 [facility] [id number] [place] [address] 83465- 3277 Aug, [facility] [id number] [place] [address] 97443- 9291 July, [facility] [id number] [place] [address] 81919- 8129 July, [facility] [id number] [place] [address] 53562- 3672 July, 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 [facility] [id number] [place] [address] 54538- 1088 July, Other complicated headache syndrome G44.59 [facility] [id number] [place] [address] 11315- 1452 July, [facility] [id number] [place] [address] 46111 -8887 July, Dysuria R30.0 and Acute cystitis with hematuria N30.01 [facility] [address], [place] [address]- 1147 July, [facility] [address], [place] [address]- 1766 July, Other complicated headache syndrome G44.59 [facility] [id number] [place] [address] 32244 -1692 Jun, Exposure to strep throat Z20.818 and Acute upper respiratory infection, unspecified J06.9 [facility] [address], [place] [address]- 2718 Jun, [facility] [id number] [place] [address] 79979- 4644 Jun, 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 and Gastroesophageal reflux disease, esophagitis presence not specified K21.9 [place] [id number] [place] [address] 24915- 4474 Jun, [address] [address] 55435- 5412 Jun, Dizziness R42 [facility] [address] 38200 -6757 Jun, [address] [place] [address] 64830- 5329 Jun, [facility] [address] 64468 -0172 May, Seasonal allergic rhinitis, unspecified allergic rhinitis trigger J30.2 [address] [address] 22421- 2824 May, [place] [id number] [place] [address] 60061- 0476 May, 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 [...] Seasonal allergic rhinitis due to pollen J30.1 [place] [id number] [place] [address] 52246- 7897 May, Gastroesophageal reflux disease, esophagitis presence not specified K21.9 [place] [id number] [place] [address] 66733- 2876 May, [address] [place] [address] 24576- 6454 Apr, [facility] [address], [place] [address]- 9658 Apr, [facility] [address], [place] [address]- 7444 Mar, [facility] [address], [place] [address]- 9021 Mar, [facility] [id number] [place] [address] 11455- 7474 Mar, [facility] [address], [place] [address]- 3783 Mar, [facility] [id number] [place] [address] 18593- 0115 Feb, [facility] [id number] [place] [address] 42579- 3961 Feb, [facility] [id number] [place] [address] 97064- 3215 Feb, [facility] [id number] [place] [address] 68155- 1812 Feb, Major depressive disorder, recurrent episode, moderate F33.1 ; Generalized anxiety disorder F41.1 ; Essential hypertension I10 ; DM ( diabetes mellitus) with complications E11.8 ; Hyperlipidemia, unspecified hyperlipidemia type E78.5 ; 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 and Gastroesophageal reflux disease, esophagitis presence not specified K21.9 [facility] [id number], [place] [address] Feb, Other viral agents as the cause of diseases classified elsewhere B97.89 and Acute upper respiratory infection, unspecified J06.9 [facility] [address], [place] [address]- 7432 Jan, [facility] [address], [place] [address]- 4596 Jan, [facility] [id number] [place] [address] 11822 -9586 Jan, Acute bronchitis, unspecified organism J20.9 [place] [id number] [place] [address] 46465- 8236 Jan, [place] [id number] [place] [address] 05432- 9594 Jan, History of CVA with residual deficit I69.30 [place] [id number] [place] [address] 37904- 7115 Jan, [address] [id number] [place] [address] 16484- 6608 Jan, Acute bronchitis, unspecified organism J20.9 [place] [id number] [place] [address] 61433- 2304 Jan, [place] [id number] [place] [address] 00843- 1985 Dec, History of CVA with residual deficit I69.30 [place] [id number] [place] [address] 49676- 4860 Dec, [place] [id number] [place] [address] 33942- 8295 Dec, Other chronic pain G89.29 ; 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 and History of CVA with residual deficit I69.30 [place] [id number] [place] [address] 91760- 3348 Nov, Major depressive disorder, recurrent episode, moderate F33.1 ; Irregular heart rhythm I49.9 ; Essential hypertension I10 ; History of CVA with residual deficit I69.30 ; 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 ; Gastroesophageal reflux disease, esophagitis presence not specified K21.9 ; Hyperlipidemia, unspecified hyperlipidemia type E78.5 ; 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 ; Other chronic pain G89.29 and Generalized anxiety disorder F41.1 [place] [id number] [place] [address] 11370- 3882 Oct, Generalized anxiety disorder F41.1 ; Major depressive disorder, recurrent episode, moderate F33.1 ; Essential hypertension I10 ; History of CVA with residual deficit I69.30 ; 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 ; Gastroesophageal reflux disease, esophagitis presence not specified K21.9 ; Hyperlipidemia, unspecified hyperlipidemia type E78.5 ; Other chronic pain G89.29 and Bacterial conjunctivitis of left eye H10.9 [id number] [place] [address] 84856- 7512 Sep, Chronic pain syndrome G89.4 and 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 [id number] [place] [address] 96735- 1463 Sep, Irregular heart rhythm I49.9 ; Routine health maintenance Z00.00 ; Essential hypertension I10 ; History of CVA with residual deficit I69.30 ; Gastroesophageal reflux disease, esophagitis presence not specified K21.9 ; 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 ; Hyperlipidemia, unspecified hyperlipidemia type E78.5 and Other complicated headache syndrome G44.59 [place] [id number] [place] [address] 08652- 9466 Jun, [place] [address] 91714- 9433 Jun, [place] [id number] [place] [address] 98571- 3137 Aug, [id number] [place] [address] 21739- 0181 Jun, IMMUNIZATIONS Vaccine Route Administration Date Status PPSV23 (PNEUMOVAX) IM Intramuscular Feb 16, 2017 Administered SOCIAL HISTORY Never Assessed REASON FOR VISIT Pneumonia shot ----DBennettRN PLAN OF CARE VITAL SIGNS MEDICATIONS Unknown Medications RESULTS No Results PROCEDURES Procedure Date Ordered Result Body Site PPSV23 (PNEUMOVAX) Feb 16, 2017 ADMN PNEUMCOC VAC NO FEE SCHED DAY Feb 16, 2017 SINGLE IMMUNIZATION ADMIN Feb 16, 2017 INSTRUCTIONS MEDICATIONS ADMINISTERED No Known Medications [...] Has been hospitalized at then transfered to [place]. 2015 Hospitalization History Child Hospitalization History abd pain and shakiness - [facility] ED visit [facility] Hospitalization History [facility] ED for URI 04/16/17
--- OUTSIDE RECORDS SUMMARY | 2017-11-04 17:09 | XMS REPORT | Continuity of Care Document ---
Author Author [facility] Organization [facility] Address Unknown Phone Unavailable Allergies Active Description Code Type Severity Reaction Onset Reported/Identified Relationship to Patient Clinical Status Yes Erythromycin Base [id number] Drug Allergy Mild N/A 11/11/2008 Yes codeine [id number] Drug Allergy Unknown N/A 11/14/2008 Yes Penicillins [id number] Drug Allergy Unknown N/A 11/14/2008 Medications There [...] AMELIA WRIGHT, PASTOR Blank Ot 794.09 ABN SUPPLY CHAIN BUYER FUNCT STUDY NEC 09/01/2012 PASTOR CISNEROS MD [...] PASTOR J Ot 794.09 05/11/2014 AMELIA WRIGHT, [facility] Ot 783.1 05/11/2014 AMELIA WRIGHT, [facility] Ot 787.3 05/11/2014 AMELIA WRIGHT, PASTOR J Ot 789.09 05/11/2014 AMELIA WRIGHT, [facility] Ot 789.1 05/11/2014 AMELIA WRIGHT, [facility] Ot 723.1 05/11/2014 AMELIA WRIGHT, PASTOR J Ot 729.5 05/11/2014 AMELIA WRIGHT, PASTOR J Ot 719.40 05/11/2014 AMELIA WRIGHT, PASTOR J Ot 780.79 05/11/2014 AMELIA WRIGHT, [facility] Ot 782.3 05/11/2014 AMELIA WRIGHT, PASTOR J [...] PASTOR J Ot 794.09 05/15/2014 AMELIA WRIGHT, [facility] Ot 783.1 05/15/2014 AMELIA WRIGHT, [facility] Ot 787.3 05/15/2014 AMELIA WRIGHT, [facility] Ot 789.09 05/15/2014 AMELIA WRIGHT, PASTOR J Ot 789.1 05/15/2014 AMELIA WRIGHT, PASTOR J Ot 723.1 05/15/2014 AMELIA WRIGHT, [facility] Ot 729.5 05/15/2014 AMELIA WRIGHT, PASTOR J Ot 719.40 05/15/2014 AMELIA WRIGHT, PASTOR J Ot 780.79 05/15/2014 AMELIA WRIGHT, [facility] Ot 782.3 05/15/2014 AMELIA WRIGHT, PASTOR J Ot 785.0 05/15/2014 AMELIA WRIGHT, PASTOR J Ot 719.40 05/15/2014 AMELIA WRIGHT, [facility] Ot 780.79 05/15/2014 AMELIA WRIGHT, PASTOR J [...] PASTOR J Ot 780.97 05/15/2014 AMELIA WRIGHT, [facility] Ot 781.99 05/15/2014 AMELIA WRIGHT, PASTOR Abhay Ot 530.81 05/15/2014 AMELIA WRIGHT, PASTOR Abhay Ot 553.3 05/15/2014 AMELIA WRIGHT, PASTOR Abhay Ot 787.20 05/15/2014 JASON WRIGHT, [facility] Ot 288.60 05/15/2014 AMELIA WRIGHT, [facility] Ot 530.81 05/15/2014 AMELIA WRIGHT, PASTOR Abhay Ot 553.3 05/15/2014 AMELIA WRIGHT, PASTOR Abhay Ot 787.20 05/15/2014 AMELIA WRIGHT, [facility] Ot 348.89 05/15/2014 AMELIA WRIGHT, [facility] Ot 780.97 05/15/2014 AMELIA WRIGHT, PASTOR Abhay [...] AMELIA WRIGHT, PASTOR J Ot 786.50 05/15/2014 TIRSTAN WRIGHT, ALBERTASEELAN Ot 397.0 05/15/2014 TRISTNA WRIGHT, JAYASEELAN Ot 401.9 05/15/2014 TRISTAN WRIGHT, [...] PASTOR J Ot 787.20 05/15/2014 JASON WRIGHT, [facility] Ot 288.60 05/17/2014 AMELIA WRIGHT, PASTOR J [...] WRIGHT, JAYASEELAN Ot 786.50 08/26/2014 AMELIA WRIGHT, [facility] Ot 251.2 08/26/2014 AMELIA WRIGHT, [facility] Ot 790.29 08/26/2014 AMELIA WRIGHT, [facility] Ot 780.39 08/26/2014 AMELIA WRIGHT, PASTOR J Ot 348.89 08/26/2014 AMELIA WRIGHT, [facility] Ot 780.97 08/26/2014 AMELIA WRIGHT, [facility] Ot 781.99 08/26/2014 AMELIA WRIGHT, PASTOR J Ot 530.81 08/26/2014 AMELIA WRIGHT, RUFE J Ot 553.3 08/26/2014 AMELIA WRIGHT, RUFE J Ot 787.20 08/26/2014 JASON WRIGHT, GILBERT [...] K Ot V58.69 08/26/2014 [facility] Ot 401.9 08/26/2014 GERRY WRIGHT, YUKO [...] SKIN 03/29/2015 JOSE ADLER DO Ot Z79.82 HALFWAY (CURRENT) USE OF ASPIRIN 03/29/2015 JOSE ADLER DO Ot Z79.899 OTHER PROFESSIONAL ENGINEER (CURRENT) DRUG THERAPY 03/29/2015 JOSE ADLER DO [...] GIDDINESS 05/22/2015 THELMA FARAH APRN Ot Z79.02 PROFESSIONAL ENGINEER (CURRENT) USE OF ANTITHROMBOTI 05/22/2015 THELMA FARAH CHIEF I DISPATCHER Ot Z79.82 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 05/24/2015 RONAN SOTO MD A Ot E11.9 TYPE 2 DIABETES MELLITUS WITHOUT COMPLIC 05/24/2015 RONAN SOTO MD A Ot F17.210 NICOTINE DEPENDENCE, CIGARETTES, UNCOMPL 05/24/2015 RONAN SOTO MD A Ot R20.2 PARESTHESIA OF SKIN 05/24/2015 RONAN SOTO MD A Ot Z79.82 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 05/24/2015 RONAN SOTO MD A Ot Z79.899 OTHER HALFWAY (CURRENT) DRUG THERAPY 06/04/2015 RONAN SOTO MD [...] HYPERTENSION 07/25/2015 GILBERT GOMEZ MD Ot Z79.02 PROFESSIONAL ENGINEER (CURRENT) USE OF ANTITHROMBOTI 07/25/2015 GILBERT GOMEZ MD Ot Z79.82 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 08/01/2015 GILBERT GOMEZ [...] HYPERTENSION 08/06/2015 GILBERT GOMEZ MD Ot Z79.02 HALFWAY (CURRENT) USE OF ANTITHROMBOTI 08/06/2015 GILBERT GOMEZ MD, Ot Z79.82 HALFWAY (CURRENT) USE OF ASPIRIN 09/03/2015 GILBERT GOMEZ [...] 09/03/2015 GILBERT GOMEZ MD Ot Z79.899 OTHER HALFWAY (CURRENT) DRUG THERAPY 09/10/2015 AKBAR EVANS MD, [...] 780.39 OTHER CONVULSIONS 09/10/2015 Ot 794.09 ABN SUPPLY CHAIN BUYER FUNCT STUDY NEC 09/10/2015 Ot 794.8 ABN LIVER FUNCTION STUDY 09/10/2015 Ot 368.9 VISUAL DISTURBANCE NOS 09/10/2015 Ot 780.2 SYNCOPE AND COLLAPSE 09/10/2015 Ot 780.79 OTH MALAISE FATIGUE 09/10/2015 Ot 786.2 COUGH 09/10/2015 Ot 786.50 CHEST PAIN NOS 09/10/2015 AMELIA WRIGHT, PASTOR Blank Ot 794.09 ABN SUPPLY CHAIN BUYER FUNCT STUDY NEC 09/10/2015 AMELIA WRIGHT, PASTOR [...] 09/10/2015 GILBERT GOMEZ MD Ot Z79.899 OTHER HALFWAY (CURRENT) DRUG THERAPY 09/10/2015 YUKO GARRETT MD Ot I10 ESSENTIAL (PRIMARY) HYPERTENSION 09/10/2015 YUKO GARRETT MD Ot R00.2 PALPITATIONS 09/10/2015 YUKO GARRETT MD Ot R06.02 SHORTNESS OF BREATH 09/10/2015 YUKO GARRETT MD Ot R07.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.4 HALFWAY (CURRENT) USE OF INSULIN 09/10/2015 PASTOR CISNEROS [...] HYPERTENSION 09/10/2015 GILBERT GOMEZ MD Ot Z79.02 HALFWAY (CURRENT) USE OF ANTITHROMBOTI 09/10/2015 GILBERT GOMEZ MD, Ot Z79.82 HALFWAY (CURRENT) USE OF ASPIRIN 09/10/2015 AKBAR EVANS [...] 10/02/2015 GILBERT GOMEZ MD Ot Z79.899 OTHER PROFESSIONAL ENGINEER (CURRENT) DRUG THERAPY 10/05/2015 JOSE ADLER DO [...] 10/29/2015 GILBERT GOMEZ MD Ot Z79.899 OTHER PROFESSIONAL ENGINEER (CURRENT) DRUG THERAPY 10/30/2015 GILBERT GOMEZ MD [...] 10/30/2015 GILBERT GOMEZ MD Ot Z79.899 OTHER HALFWAY (CURRENT) DRUG THERAPY 11/04/2015 GILBERT GOMEZ MD [...] 11/04/2015 GILBERT GOMEZ MD Ot Z79.899 OTHER PROFESSIONAL ENGINEER (CURRENT) DRUG THERAPY 12/11/2015 GILBERT GOMEZ MD, [...] 12/11/2015 GILBERT GOMEZ MD Ot Z79.899 OTHER PROFESSIONAL ENGINEER (CURRENT) DRUG THERAPY 12/19/2015 GILBERT GOMEZ MD [...] 12/19/2015 GILBERT GOMEZ MD Ot Z79.899 OTHER HALFWAY (CURRENT) DRUG THERAPY 01/02/2016 GILBERT GOMEZ MD [...] 01/02/2016 GILBERT GOMEZ MD Ot Z79.899 OTHER PROFESSIONAL ENGINEER (CURRENT) DRUG THERAPY 03/17/2016 GILBERT GOMEZ MD [...] 03/17/2016 GILBERT GOMEZ MD Ot Z79.899 OTHER HALFWAY (CURRENT) DRUG THERAPY 03/23/2016 Ot 272.4 HYPERLIPIDEMIA [...] 780.39 OTHER CONVULSIONS 03/23/2016 Ot 794.09 ABN SUPPLY CHAIN BUYER FUNCT STUDY NEC 03/23/2016 Ot 794.8 ABN LIVER FUNCTION STUDY 03/23/2016 Ot 368.9 VISUAL DISTURBANCE NOS 03/23/2016 Ot 780.2 SYNCOPE AND COLLAPSE 03/23/2016 Ot 780.79 OTH MALAISE FATIGUE 03/23/2016 Ot 786.2 COUGH 03/23/2016 Ot 786.50 CHEST PAIN NOS 03/23/2016 AMELIA WRIGHT, PASTOR Blank Ot 794.09 ABN SUPPLY CHAIN BUYER FUNCT STUDY NEC 03/23/2016 PASTOR CISNEROS MD [...] MD Ot I10 ESSENTIAL (PRIMARY) HYPERTENSION 03/23/2016 YKUO GARRETT MD Ot R00.2 PALPITATIONS 03/23/2016 YUKO GARRETT MD Ot R06.02 SHORTNESS OF BREATH 03/23/2016 YUKO GARRETT MD Ot R07.89 OTHER CHEST PAIN 03/23/2016 PASTOR CISNEROS MD Ot E11.9 TYPE 2 DIABETES MELLITUS WITHOUT COMPLIC 03/23/2016 PASTOR CISNEROS MD Ot 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 03/23/2016 PASTOR CISNEROS [...] HYPERTENSION 03/23/2016 GILBERT GOMEZ MD Ot Z79.02 HALFWAY (CURRENT) USE OF ANTITHROMBOTI 03/23/2016 GILBERT GOMEZ MD Ot Z79.82 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 03/23/2016 GILBERT GOMEZ [...] 03/23/2016 GILBERT GOMEZ MD Ot Z79.899 OTHER HALFWAY (CURRENT) DRUG THERAPY 06/15/2016 GILBERT GOMEZ MD, [...] JASON WRIGHT GILBERT Esqueda Ot Z79.899 OTHER HALFWAY (CURRENT) DRUG THERAPY 06/30/2016 Ot 530.81 ESOPHAGEAL [...] 780.39 OTHER CONVULSIONS 06/30/2016 Ot 794.09 ABN SUPPLY CHAIN BUYER FUNCT STUDY NEC 06/30/2016 Ot 794.8 ABN LIVER FUNCTION STUDY 06/30/2016 Ot 368.9 VISUAL DISTURBANCE NOS 06/30/2016 Ot 780.2 SYNCOPE AND COLLAPSE 06/30/2016 Ot 780.79 OTH MALAISE FATIGUE 06/30/2016 Ot 786.2 COUGH 06/30/2016 Ot 786.50 CHEST PAIN NOS 06/30/2016 AMELIA WRIGHT, PASTOR Blank Ot 794.09 ABN SUPPLY CHAIN BUYER FUNCT STUDY NEC 06/30/2016 AMELIA WRIGHT, PASTOR Blank Ot 783.1 ABNORMAL WEIGHT GAIN 06/30/2016 AMELIA WRIGHT, PASTOR Blank Ot 787.3 FLATUL/ERUCTAT/GAS PAIN 06/30/2016 AMELIA WRIGHT, PASTOR Blank Ot 789.09 ABDOMINAL PAIN, OTHER SPECIFIED SITE 06/30/2016 AMELIA WRIGHT, PASTOR Blank Ot 789.1 HEPATOMEGALY 06/30/2016 PASTOR CISNEROS MD Ot 723.1 CERVICALGIA 06/30/2016 AMELIA WRIGHT, PATSOR Blank Ot 729.5 PAIN IN LIMB 06/30/2016 [...] CISNEROS MD Ot 785.0 TACHYCARDIA NOS 06/30/2016 PSATOR CISNEROS MD J Ot 305.1 TOBACCO USE [...] WRIGHT, SULEMA Ot 401.9 HYPERTENSION NOS 06/30/2016 SULEAM HUDSON MD Ot 424.0 MITRAL VALVE DISORDER [...] COMPLIC 06/30/2016 PASTOR CISNEROS MD Ot Z79.4 HALFWAY (CURRENT) USE OF INSULIN 06/30/2016 PASTOR CISNEROS [...] HYPERTENSION 06/30/2016 GILBERT GOMEZ MD Ot Z79.02 HALFWAY (CURRENT) USE OF ANTITHROMBOTI 06/30/2016 GILBERT GOMEZ MD Ot Z79.82 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 06/30/2016 GILBERT GOMEZ [...] 06/30/2016 GILBERT GOMEZ MD Ot Z79.899 OTHER HALFWAY (CURRENT) DRUG THERAPY 06/30/2016 GILBERT GOMEZ MD [...] 06/30/2016 GILBERT GOMEZ MD Ot Z79.899 OTHER HALFWAY (CURRENT) DRUG THERAPY 06/30/2016 Ot 530.81 ESOPHAGEAL [...] 780.39 OTHER CONVULSIONS 06/30/2016 Ot 794.09 ABN SUPPLY CHAIN BUYER FUNCT STUDY NEC 06/30/2016 Ot 794.8 ABN LIVER FUNCTION STUDY 06/30/2016 Ot 368.9 VISUAL DISTURBANCE NOS 06/30/2016 Ot 780.2 SYNCOPE AND COLLAPSE 06/30/2016 Ot 780.79 OTH MALAISE FATIGUE 06/30/2016 Ot 786.2 COUGH 06/30/2016 Ot 786.50 CHEST PAIN NOS 06/30/2016 AMELIA WRIGHT, PASTOR Blank Ot 794.09 ABN SUPPLY CHAIN BUYER FUNCT STUDY NEC 06/30/2016 AMELIA WRIGHT, PASTOR [...] PASTOR CISNEROS MD Ot 782.3 EDEMA 06/30/2016 PASOTR CISNEROS MD Ot 785.0 TACHYCARDIA NOS 06/30/2016 [...] COMPLIC 06/30/2016 PASTOR CISNEROS MD Ot Z79.4 HALFWAY (CURRENT) USE OF INSULIN 06/30/2016 PASTOR CISNEROS [...] HYPERTENSION 06/30/2016 GILBERT GOMEZ MD, Ot Z79.02 PROFESSIONAL ENGINEER (CURRENT) USE OF ANTITHROMBOTI 06/30/2016 GILBERT GOMEZ MD, Ot Z79.82 HALFWAY (CURRENT) USE OF ASPIRIN 06/30/2016 GILBERT GOMEZ [...] 06/30/2016 GILBERT GOMEZ MD Ot Z79.899 OTHER PROFESSIONAL ENGINEER (CURRENT) DRUG THERAPY 07/09/2016 GILBERT GOMEZ MD, Ot 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) THROMBOCYTHEMIA 07/09/2016 GILBERT GOMEZ MD, Ot D72.829 ELEVATED WHITE BLOOD CELL COUNT, UNSPECI 07/09/2016 GILBERT GOMEZ MD, Ot E78.5 HYPERLIPIDEMIA, UNSPECIFIED 07/09/2016 GILBERT GMOEZ MD Ot I10 ESSENTIAL (PRIMARY) HYPERTENSION 07/09/2016 GILBERT GOMEZ MD, Ot 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 07/09/2016 GILBERT GOMEZ MD Ot I69.998 OTHER SEQUELAE FOLLOWING UNSPECIFIED CER 07/09/2016 GILBERT GOMEZ MD, Ot M62.81 MUSCLE WEAKNESS (GENERALIZED) 07/09/2016 GILBERT GOMEZ MD Ot R00.0 TACHYCARDIA, UNSPECIFIED 07/09/2016 GILBERT GOMEZ MD Ot Z79.899 OTHER HALFWAY (CURRENT) DRUG THERAPY 08/02/2016 GILBERT GOMEZ MD [...] GROSS HEMATURIA 08/16/2016 PRISCILLA HUNT Ot Z79.02 HALFWAY (CURRENT) USE OF ANTITHROMBOTI 08/16/2016 PRISCILLA HUNT Ot Z79.82 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 08/16/2016 PRISCILLA HUNT Ot Z79.899 OTHER PROFESSIONAL ENGINEER (CURRENT) DRUG THERAPY 08/19/2016 PRISCILLA HUNT Ot E11.9 TYPE 2 DIABETES MELLITUS WITHOUT COMPLIC 08/19/2016 PRISCILLA HUNT Ot F17.210 NICOTINE DEPENDENCE, CIGARETTES, UNCOMPL 08/19/2016 PRISCILLA HUNT L Ot I10 ESSENTIAL (PRIMARY) HYPERTENSION 08/19/2016 PRISCILLA HUNT Ot N30.01 ACUTE CYSTITIS WITH HEMATURIA 08/19/2016 PRISCILLA HUNT Ot R31.0 GROSS HEMATURIA 08/19/2016 PRISCILLA HUNT Ot Z79.02 PROFESSIONAL ENGINEER (CURRENT) USE OF ANTITHROMBOTI 08/19/2016 PRISCILLA HUNT Ot Z79.82 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 08/19/2016 PRISCILLA HUNT L Ot Z79.899 OTHER PROFESSIONAL ENGINEER (CURRENT) DRUG THERAPY 09/03/2016 GILBERT GOMEZ MD [...] 09/12/2016 GILBERT GOMEZ MD Ot Z79.899 OTHER PROFESSIONAL ENGINEER (CURRENT) DRUG THERAPY 11/09/2016 AKBAR EVANS MD [...] GIDDINESS 11/09/2016 AKBAR EVANS MD, Ot Z79.82 HALFWAY (CURRENT) USE OF ASPIRIN 11/09/2016 AKBAR EVANS [...] GIDDINESS 11/11/2016 AKBAR EVANS MD, Ot Z79.82 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 11/11/2016 AKBAR EVANS [...] 12/02/2016 IGOR ARANA MD Ot Z79.899 OTHER PROFESSIONAL ENGINEER (CURRENT) DRUG THERAPY 12/21/2016 IGOR ARANA MD [...] 12/21/2016 IGOR ARANA MD Ot Z79.899 OTHER PROFESSIONAL ENGINEER (CURRENT) DRUG THERAPY 02/11/2017 IGOR ARANA MD, [...] 02/11/2017 IGOR ARANA MD, Ot Z79.899 OTHER PROFESSIONAL ENGINEER (CURRENT) DRUG THERAPY 03/12/2017 PRISCILLA HUNT Ot [...] ABD REGION 03/12/2017 PRISCILLA HUNT Ot Z79.82 HALFWAY (CURRENT) USE OF ASPIRIN 03/12/2017 PRISCILLA HUNT [...] 03/20/2017 IGOR ARANA MD, Ot Z79.899 OTHER PROFESSIONAL ENGINEER (CURRENT) DRUG THERAPY 03/24/2017 PRISCILLA HUNT Ot [...] ABD REGION 03/24/2017 PRISCILLA HUNT Ot Z79.82 HALFWAY (CURRENT) USE OF ASPIRIN 03/24/2017 PRISCILLA HUNT [...] GIDDINESS 04/09/2017 AKBAR EVANS MD Ot Z79.82 HALFWAY (CURRENT) USE OF ASPIRIN 04/09/2017 AKBAR EVANS [...] PLEURODYNIA 04/17/2017 GWEN RAMOS MD Ot Z79.01 HALFWAY (CURRENT) USE OF ANTICOAGULANT 04/17/2017 GWEN RAMOS MD Ot Z79.82 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 04/17/2017 GWEN RAMOS [...] PLEURODYNIA 04/18/2017 GWEN RAMOS MD Ot Z79.01 PROFESSIONAL ENGINEER (CURRENT) USE OF ANTICOAGULANT 04/18/2017 GWEN RAMOS MD Ot Z79.82 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 04/18/2017 GWEN RAMOS [...] PULMONARY DISEASE, U 05/09/2017 HIPOLITO, MIRELLA E CHIEF I DISPATCHER Ot R91.1 SOLITARY PULMONARY NODULE 05/09/2017 MIRELLA MCMILLAN CHIEF I DISPATCHER Ot J30.2 OTHER SEASONAL ALLERGIC RHINITIS 05/09/2017 MIRELLA MCMILLAN CHIEF I DISPATCHER Ot J44.9 CHRONIC OBSTRUCTIVE PULMONARY DISEASE, U 05/09/2017 LIDIA MCMILLANINE E CHIEF I DISPATCHER Ot R91.1 SOLITARY PULMONARY NODULE 06/13/2017 MIRELLA MCMILLAN CHIEF I DISPATCHER Ot J30.2 OTHER SEASONAL ALLERGIC RHINITIS 06/13/2017 LIDIA MCMILLANINE Shefali CHIEF I DISPATCHER Ot J44.9 CHRONIC OBSTRUCTIVE PULMONARY DISEASE, U 06/13/2017 LIDIA MCMILLANINE Shefali CHIEF I DISPATCHER Ot R91.1 SOLITARY PULMONARY NODULE 06/24/2017 SOTERO HUIZAR CHIEF I DISPATCHER Ot K43.9 VENTRAL HERNIA WITHOUT OBSTRUCTION OR GA 06/24/2017 SOTERO HUIZAR CHIEF I DISPATCHER Ot R16.0 HEPATOMEGALY, NOT ELSEWHERE CLASSIFIED 06/29/2017 SOTERO HUIZAR CHIEF I DISPATCHER Ot K43.9 VENTRAL HERNIA WITHOUT OBSTRUCTION OR GA 06/29/2017 SOTERO HUIZAR CHIEF I DISPATCHER Ot R16.0 HEPATOMEGALY, NOT ELSEWHERE CLASSIFIED 07/09/2017 IGOR ARANA MD Ot 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) THROMBOCYTHEMIA 07/09/2017 IGOR ARANA MD Ot D72.829 ELEVATED WHITE BLOOD CELL COUNT, UNSPECI 07/09/2017 IGOR ARANA MD Ot E78.5 HYPERLIPIDEMIA, UNSPECIFIED 07/09/2017 IGOR ARANA MD Ot I10 ESSENTIAL (PRIMARY) HYPERTENSION 07/09/2017 GIOR ARANA MD Ot 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 07/09/2017 IGOR ARANA MD Ot I69.998 OTHER SEQUELAE FOLLOWING UNSPECIFIED CER 07/09/2017 IGOR ARANA MD Ot M62.81 MUSCLE WEAKNESS (GENERALIZED) 07/09/2017 IGOR ARANA MD Ot R00.0 TACHYCARDIA, UNSPECIFIED 07/09/2017 IGOR ARANA MD Ot Z79.899 OTHER HALFWAY (CURRENT) DRUG THERAPY 07/14/2017 SOTERO HUIZAR CHIEF I DISPATCHER Ot K43.9 VENTRAL HERNIA WITHOUT OBSTRUCTION OR GA 07/14/2017 SOTERO HUIZAR CHIEF I DISPATCHER Ot R16.0 HEPATOMEGALY, NOT ELSEWHERE CLASSIFIED 08/16/2017 THELMA FARAH APRN Ot D72.829 ELEVATED WHITE BLOOD CELL COUNT, UNSPECI 08/16/2017 THELMA FARAH APRN Ot E11.9 TYPE 2 DIABETES MELLITUS WITHOUT COMPLIC 08/16/2017 THELMA FARAH APRN Ot F41.9 ANXIETY DISORDER, UNSPECIFIED 08/16/2017 THELMA FARAH APRN Ot G43.909 MIGRAINE, UNSP, NOT INTRACTABLE, WITHOUT 08/16/2017 THELMA FARAH APRN Ot I10 ESSENTIAL (PRIMARY) HYPERTENSION 08/16/2017 THELMA FARAH APRN Ot K21.9 GASTRO-ESOPHAGEAL REFLUX DISEASE WITHOUT 08/16/2017 THELMA FARAH APRN Ot R20.2 PARESTHESIA OF SKIN 08/16/2017 THELMA FARAH APRN Ot R42 DIZZINESS AND GIDDINESS 08/16/2017 THELMA FARAH APRN Ot R51 HEADACHE 08/16/2017 THELMA FARAH APRN Ot Z79.02 PROFESSIONAL ENGINEER (CURRENT) USE OF ANTITHROMBOTI 08/16/2017 THELMA FARAH APRN Ot Z79.82 HALFWAY (CURRENT) USE OF ASPIRIN 08/16/2017 THELMA FARAH APRN Ot Z80.0 FAMILY HISTORY OF MALIGNANT NEOPLASM OF 08/16/2017 THELMA FARAH APRN Ot Z82.49 FAMILY HX OF ISCHEM HEART DIS AND OTH DI 08/16/2017 THELMA FARAH APRN Ot Z86.73 PRSNL HX OF TIA (TIA), AND CEREB INFRC W 08/16/2017 THELMA FARAH APRN Ot Z87.19 PERSONAL HISTORY OF OTHER DISEASES OF TH 08/16/2017 THELMA FARAH APRN Ot Z87.59 PERSONAL HISTORY OF COMP OF PREG, CHLDBR 08/16/2017 THELMA FARAH APRN Ot Z88.0 ALLERGY STATUS TO PENICILLIN 08/16/2017 THELMA FARAH APRN Ot Z88.5 ALLERGY STATUS TO NARCOTIC AGENT STATUS 08/16/2017 THELMA FARAH APRN Ot Z98.51 TUBAL LIGATION STATUS 08/18/2017 THELMA FARAH APRN Ot D72.829 ELEVATED WHITE BLOOD CELL COUNT, UNSPECI 08/18/2017 THELMA FARAH APRN Ot E11.9 TYPE 2 DIABETES MELLITUS WITHOUT COMPLIC 08/18/2017 FARAH, PETER J CHIEF I DISPATCHER Ot F41.9 ANXIETY DISORDER, UNSPECIFIED 08/18/2017 THELMA FARAH APRN Ot G43.909 MIGRAINE, UNSP, NOT INTRACTABLE, WITHOUT 08/18/2017 THELMA FARAH APRN Ot I10 ESSENTIAL (PRIMARY) HYPERTENSION 08/18/2017 THELMA FARAH APRN Ot K21.9 GASTRO-ESOPHAGEAL REFLUX DISEASE WITHOUT 08/18/2017 THELMA FARAH APRN Ot R20.2 PARESTHESIA OF SKIN 08/18/2017 THELMA FARAH APRN Ot R42 DIZZINESS AND GIDDINESS 08/18/2017 THELMA FARAH APRN Ot R51 HEADACHE 08/18/2017 THELMA FARAH APRN Ot Z79.02 PROFESSIONAL ENGINEER (CURRENT) USE OF ANTITHROMBOTI 08/18/2017 THELMA FARAH APRN Ot Z79.82 HALFWAY (CURRENT) USE OF ASPIRIN 08/18/2017 THELMA FARAH APRN Ot Z80.0 FAMILY HISTORY OF MALIGNANT NEOPLASM OF 08/18/2017 THELMA FARAH APRN Ot Z82.49 FAMILY HX OF ISCHEM HEART DIS AND OTH DI 08/18/2017 THELMA FARAH APRN Ot Z86.73 PRSNL HX OF TIA (TIA), AND CEREB INFRC W 08/18/2017 THELMA FARAH APRN Ot Z87.19 PERSONAL HISTORY OF OTHER DISEASES OF TH 08/18/2017 THELMA FARAH APRN Ot Z87.59 PERSONAL HISTORY OF COMP OF PREG, CHLDBR 08/18/2017 THELMA FARAH APRN Ot Z88.0 ALLERGY STATUS TO PENICILLIN 08/18/2017 THELMA FARAH APRN Ot Z88.5 ALLERGY STATUS TO NARCOTIC AGENT STATUS 08/18/2017 THELMA FARAH APRN Ot Z98.51 TUBAL LIGATION STATUS 09/15/2017 JULIENNE CLEVELAND MD Ot E11.9 TYPE 2 DIABETES MELLITUS WITHOUT COMPLIC 09/15/2017 JULIENNE CLEVELAND MD Ot E78.00 PURE HYPERCHOLESTEROLEMIA, UNSPECIFIED 09/15/2017 JULIENNE CLEVELAND MD Ot F17.210 NICOTINE DEPENDENCE, CIGARETTES, UNCOMPL 09/15/2017 JULIENNE CLEVELAND MD Ot G43.909 MIGRAINE, UNSP, NOT INTRACTABLE, WITHOUT 09/15/2017 JULIENNE CLEVELAND MD Ot I10 ESSENTIAL (PRIMARY) HYPERTENSION 09/15/2017 JULIENNE CLEVELAND MD Ot R07.89 OTHER CHEST PAIN 09/15/2017 JULIENNE CLEVELAND MD Ot Z79.02 HALFWAY (CURRENT) USE OF ANTITHROMBOTI 09/15/2017 JULIENNE CLEVELAND MD Ot Z79.82 HALFWAY (CURRENT) USE OF ASPIRIN 09/15/2017 JULIENNE CLEVELAND MD Ot Z86.73 PRSNL HX OF TIA (TIA), AND CEREB INFRC W 09/15/2017 JULIENNE CLEVELAND MD, Ot Z87.59 PERSONAL HISTORY OF COMP OF PREG, CHLDBR 09/15/2017 JULIENNE CLEVELAND MD Ot Z88.0 ALLERGY STATUS TO PENICILLIN 09/15/2017 JULIENNE CLEVELAND MD Ot Z88.1 ALLERGY STATUS TO OTHER ANTIBIOTIC AGENT 09/15/2017 JULIENNE CLEVELAND MD Ot Z88.5 ALLERGY STATUS TO NARCOTIC AGENT STATUS 09/15/2017 JULIENNE CLEVELAND MD Ot Z98.51 TUBAL LIGATION STATUS 09/27/2017 SOTERO HUIZAR APRN Ot K43.9 VENTRAL HERNIA WITHOUT OBSTRUCTION OR GA 09/27/2017 SOTERO HUIZAR CHIEF I DISPATCHER Ot R16.0 HEPATOMEGALY, NOT ELSEWHERE CLASSIFIED 09/29/2017 Ot 368.9 VISUAL DISTURBANCE NOS 09/29/2017 Ot 401.9 HYPERTENSION NOS 09/29/2017 Ot 435.9 TRANS CEREB ISCHEMIA NOS 09/29/2017 Ot 780.39 OTHER CONVULSIONS 09/29/2017 Ot 794.09 ABN SUPPLY CHAIN BUYER FUNCT STUDY NEC 09/29/2017 Ot 794.8 ABN LIVER FUNCTION STUDY 09/29/2017 Ot 368.9 VISUAL DISTURBANCE NOS 09/29/2017 Ot 780.2 SYNCOPE AND COLLAPSE 09/29/2017 Ot 780.79 OTH MALAISE FATIGUE 09/29/2017 Ot 786.2 COUGH 09/29/2017 Ot 786.50 CHEST PAIN NOS 09/29/2017 AMELIA WRIGHT, PASTOR Blank Ot 794.09 ABN SUPPLY CHAIN BUYER FUNCT STUDY NEC 09/29/2017 AMELIA WRIGHT, PASTOR Blank Ot 783.1 ABNORMAL WEIGHT GAIN 09/29/2017 AMELIA WRIGHT, PASTOR Blank Ot 787.3 FLATUL/ERUCTAT/GAS PAIN 09/29/2017 AMELIA WRIGHT, PASTOR Blank Ot 789.09 ABDOMINAL PAIN, OTHER SPECIFIED SITE 09/29/2017 AMELIA WRIGHT, PASTOR Blank Ot 789.1 HEPATOMEGALY 09/29/2017 AMELIA WRIGHT, PASTOR Blank Ot 723.1 CERVICALGIA 09/29/2017 AMELIA WRIGHT, PASTOR Blank Ot 729.5 PAIN IN LIMB 09/29/2017 PASTOR CISNEROS MD Ot 719.40 JOINT PAIN-UNSPEC 09/29/2017 AMELIA WRIGHT, PASTOR Blank Ot 780.79 OTH MALAISE FATIGUE 09/29/2017 PASTOR CISNEROS MD Ot 782.3 EDEMA 09/29/2017 AMELIA WRIGHT, PASTOR Blank Ot 785.0 TACHYCARDIA NOS 09/29/2017 AMELIA WRIGHT, PASTOR Blank Ot 719.40 JOINT PAIN-UNSPEC 09/29/2017 AMELIA WRIGHT, PASTOR Blank Ot 780.79 OTH MALAISE FATIGUE 09/29/2017 PASTOR CISNEROS MD Ot 782.3 EDEMA 09/29/2017 PASTOR CISNEROS MD Ot 785.0 TACHYCARDIA NOS 09/29/2017 AMELIA WRIGHT, PASTOR Blank Ot 305.1 TOBACCO USE DISORDER 09/29/2017 PASTOR CISNEROS MD Ot 401.9 HYPERTENSION NOS 09/29/2017 AMELIA WRIGHT, PASTOR Blank Ot 428.0 CONGESTIVE HEART FAILURE NOS 09/29/2017 AMELIA WRIGHT, PASTOR Blank Ot 782.3 EDEMA 09/29/2017 AMELIA WRIGHT, PASTOR Blank Ot 785.0 TACHYCARDIA NOS 09/29/2017 AMELIA WRIGHT, PASTOR Blank Ot 786.50 CHEST PAIN NOS 09/29/2017 SULEMA HUDSON MD Ot 397.0 TRICUSPID VALVE DISEASE 09/29/2017 SULEMA HUDSON MD Ot 401.9 HYPERTENSION NOS 09/29/2017 SULEMA HUDSON MD Ot 424.0 MITRAL VALVE DISORDER 09/29/2017 SULEMA HUDSON MD Ot 786.50 CHEST PAIN NOS 09/29/2017 SULEMA HUDSON MD Ot 401.9 HYPERTENSION NOS 09/29/2017 SULEMA HUDSON MD Ot 786.50 CHEST PAIN NOS 09/29/2017 PASTOR CISNEROS MD Ot 251.2 HYPOGLYCEMIA NOS 09/29/2017 PASTOR CISNEROS MD Ot 790.29 OTHER ABNORMAL GLUCOSE 09/29/2017 PASTOR CISNEROS MD Ot 780.39 OTHER CONVULSIONS 09/29/2017 PASTOR CISNEROS MD Ot 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 09/29/2017 PASTOR CISNEROS MD Ot 780.97 ALTERED MENTAL STATUS 09/29/2017 PASTOR CISNEROS MD Ot 781.99 NERV/MUSCULOSKEL SYS SYMP NEC 09/29/2017 PASTOR CISNEROS MD Ot 530.81 ESOPHAGEAL REFLUX 09/29/2017 PASTOR CISNEROS MD Ot 553.3 DIAPHRAGMATIC HERNIA 09/29/2017 PASTOR CISNEROS MD Ot 787.20 DYSPHAGIA, UNSPECIFIED 09/29/2017 YUKO GARRETT MD Ot 401.9 HYPERTENSION NOS 09/29/2017 YUKO GARRETT MD Ot 785.0 TACHYCARDIA NOS 09/29/2017 YUKO GARRETT MD Ot 785.1 PALPITATIONS 09/29/2017 YUKO GARRETT MD Ot 786.05 SHORTNESS OF BREATH 09/29/2017 JACOB NEWSOME MD Ot 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 09/29/2017 JACOB NEWSOME MD Ot 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 09/29/2017 JACOB NEWSOME MD Ot 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 09/29/2017 JACOB NEWSOME MD F Ot 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 09/29/2017 GERRY WRIGHT, YUKO Blank Ot I10 ESSENTIAL (PRIMARY) HYPERTENSION 09/29/2017 YUKO GARRETT MD Ot R00.2 PALPITATIONS 09/29/2017 YUKO GARRETT MD Ot R06.02 SHORTNESS OF BREATH 09/29/2017 YUKO GARRETT MD Ot R07.89 OTHER CHEST PAIN 09/29/2017 PASTOR CISNEROS MD Ot E11.9 TYPE 2 DIABETES MELLITUS WITHOUT COMPLIC 09/29/2017 PASTOR CISNEROS MD Ot 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 09/29/2017 PASTOR CISNEROS MD Ot E11.9 TYPE 2 DIABETES MELLITUS WITHOUT COMPLIC 09/29/2017 PASTOR CISNEROS MD Ot E66.9 OBESITY, UNSPECIFIED 09/29/2017 PASTOR CISNEROS MD Ot I73.9 PERIPHERAL VASCULAR DISEASE, UNSPECIFIED 09/29/2017 PASTOR CISNEROS MD Ot Z86.73 PRSNL HX OF TIA (TIA), AND CEREB INFRC W 09/29/2017 PASTOR CISNEROS MD Ot E11.9 TYPE 2 DIABETES MELLITUS WITHOUT COMPLIC 09/29/2017 PASTOR CISNEROS MD Ot M79.662 PAIN IN LEFT LOWER LEG 09/29/2017 PASTOR CISNEROS MD Ot R51 HEADACHE 09/29/2017 GILBERT GOMEZ MD Ot 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) THROMBOCYTHEMIA 09/29/2017 GILBERT GOMEZ MD Ot D68.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 09/29/2017 JASON WRIGHT GIBLERT Yin Ot D72.829 ELEVATED WHITE BLOOD CELL COUNT, UNSPECI 09/29/2017 JASON WRIGHT GILBERT Yin Ot E78.5 HYPERLIPIDEMIA, UNSPECIFIED 09/29/2017 GILBERT GOMEZ MD Ot F17.210 NICOTINE DEPENDENCE, CIGARETTES, UNCOMPL 09/29/2017 GILBERT GOMEZ MD Ot I10 ESSENTIAL (PRIMARY) HYPERTENSION 09/29/2017 GILBERT GOMEZ MD Ot Z79.02 HALFWAY (CURRENT) USE OF ANTITHROMBOTI 09/29/2017 GILBERT GOMEZ MD Ot Z79.82 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 09/29/2017 GILBERT GOMEZ MD Ot R42 DIZZINESS AND GIDDINESS 09/29/2017 GILBERT GOMEZ MD Ot R51 HEADACHE 09/29/2017 IGOR ARANA MD, Ot 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) THROMBOCYTHEMIA 09/29/2017 IGOR ARANA MD Ot D72.829 ELEVATED WHITE BLOOD CELL COUNT, UNSPECI 09/29/2017 IGOR ARANA MD Ot E78.5 HYPERLIPIDEMIA, UNSPECIFIED 09/29/2017 IGOR ARANA MD Ot I10 ESSENTIAL (PRIMARY) HYPERTENSION 09/29/2017 IGOR ARANA MD Ot 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 09/29/2017 IGOR ARANA MD Ot I69.998 OTHER SEQUELAE FOLLOWING UNSPECIFIED CER 09/29/2017 IGOR ARANA MD Ot M62.81 MUSCLE WEAKNESS (GENERALIZED) 09/29/2017 IGOR ARANA MD Ot R00.0 TACHYCARDIA, UNSPECIFIED 09/29/2017 IGOR ARANA MD Ot Z79.899 OTHER HALFWAY (CURRENT) DRUG THERAPY 09/29/2017 MIRELLA MCMILLAN APRN Ot J43.8 OTHER EMPHYSEMA 09/29/2017 MIRELLA MCMILLAN APRN Ot R91.1 SOLITARY PULMONARY NODULE 09/29/2017 MIRELLA MCMILLAN APRN Ot Z72.0 TOBACCO USE 09/29/2017 HIPOLITO, MIRELLA E CHIEF I DISPATCHER Ot J30.2 OTHER SEASONAL ALLERGIC RHINITIS 09/29/2017 MIRELLA MCMILLAN CHIEF I DISPATCHER Ot J44.9 CHRONIC OBSTRUCTIVE PULMONARY DISEASE, U 09/29/2017 MIRELLA MCMILLAN CHIEF I DISPATCHER Ot R91.1 SOLITARY PULMONARY NODULE 09/29/2017 HUIZARSOTERO Cox CHIEF I DISPATCHER Ot K43.9 VENTRAL HERNIA WITHOUT OBSTRUCTION OR GA 09/29/2017 HUIZARSOTERO Cox CHIEF I DISPATCHER Ot R16.0 HEPATOMEGALY, NOT ELSEWHERE CLASSIFIED 10/04/2017 YUKO GARRETT MD Ot I10 ESSENTIAL (PRIMARY) HYPERTENSION 10/04/2017 YUKO GARRETT MD Ot J44.9 CHRONIC OBSTRUCTIVE PULMONARY DISEASE, U 10/04/2017 YUKO GARRETT MD Ot K21.9 GASTRO-ESOPHAGEAL REFLUX DISEASE WITHOUT 10/04/2017 YUKO GARRETT MD Ot R07.9 CHEST PAIN, UNSPECIFIED 10/08/2017 MIRELLA MCMILLAN APRN Ot J43.8 OTHER EMPHYSEMA 10/08/2017 MIRELLA MCMILLAN APRN Ot R91.1 SOLITARY PULMONARY NODULE 10/08/2017 MIRELLA MCMILLAN APRN Ot Z72.0 TOBACCO USE 10/18/2017 MIRLELA MCIMLLAN CHIEF I DISPATCHER Ot J30.2 OTHER SEASONAL ALLERGIC RHINITIS 10/18/2017 MIRELLA MCMILLAN APRN Ot J44.9 CHRONIC OBSTRUCTIVE PULMONARY DISEASE, U 10/18/2017 MIRELLA MCMILLAN CHIEF I DISPATCHER Ot R91.1 SOLITARY PULMONARY NODULE Procedures There is no data. Results Test [...] Vitamin D, 25-Hydroxy 7.8 ng/mL 30.0-100.0 Thyroid [place] Profile - 03/16/16 11:24 TSH 1.490 uIU/mL [...] culture - 08/16/16 15:00 Bacterial urine culture [id number] NRG COLONY COUNT 10,000/ML - 100,000/ML NRG [...] urinalysis with reflex to culture NO NRG Vitamin D, 25-Hydroxy - 01/06/17 14:50 Vitamin D, 25-Hydroxy 14.5 ng/mL 30.0-100.0 VITAMIN D, 25-H - 01/06/17 14:50 Vitamin [...] 10.8 fL 7.5-12.5 ABSOLUTE NEUTROPHILS 7155 cells/uL 9986-8290 ABSOLUTE LYMPHOCYTES 4211 cells/uL 850-3900 ABSOLUTE MONOCYTES 1152 cells/uL 200-950 ABSOLUTE EOSINOPHILS 166 cells/uL 15-500 ABSOLUTE BASOPHILS 115 cells/uL 0-200 NEUTROPHILS 55.9 % NRG LYMPHOCYTES 32.9 % NRG MONOCYTES 9.0 % NRG EOSINOPHILS 1.3 % NRG BASOPHILS 0.9 % NRG VITAMIN D, 25-H - 08/02/17 08:45 VITAMIN D,25-OH,TOTAL,IA 18 ng/mL 30-100 Complete blood count (CBC) with automated white blood cell (WBC) differential - 08/16/17 21:15 Blood leukocytes automated count (number/volume) 13.3 10*3/uL 4.3-11.0 Blood erythrocytes automated count (number/volume) 4.72 10*6/uL 4.35-5.85 Venous blood hemoglobin measurement (mass/volume) 14.8 g/dL 11.5-16.0 Blood hematocrit (volume fraction) 45 % 35-52 Automated erythrocyte mean corpuscular volume 95 [foz_us] 80-99 Automated erythrocyte mean corpuscular hemoglobin (mass per erythrocyte) 31 pg 25-34 Automated erythrocyte mean corpuscular hemoglobin concentration measurement ( mass/volume) 33 g/dL 32-36 Automated erythrocyte distribution width ratio 13.9 % 10.0-14.5 Automated blood platelet count (count/volume) 299 10*3/uL 130-400 Automated blood platelet mean volume measurement 11.1 [foz_us] 7.4-10.4 Automated blood neutrophils/100 leukocytes 63 % 42-75 Automated blood lymphocytes/100 leukocytes 28 % 12-44 Blood monocytes/100 leukocytes 7 % 0-12 Automated blood eosinophils/100 leukocytes 1 % 0-10 Automated blood basophils/100 leukocytes 0 % 0-10 Blood neutrophils automated count (number/volume) 8.4 10*3 1.8-7.8 Blood lymphocytes automated count (number/volume) 3.7 10*3 1.0-4.0 Blood monocytes automated count (number/volume) 1.0 10*3 0.0-1.0 Automated eosinophil count 0.2 10*3/uL 0.0-0.3 Automated blood basophil count (count/volume) 0.1 10*3/uL 0.0-0.1 Comprehensive metabolic panel - 08/16/17 21:15 Serum or plasma sodium measurement (moles/volume) 137 mmol/L 135-145 Serum or plasma potassium measurement (moles/volume) 3.9 mmol/L 3.6-5.0 Serum or plasma chloride measurement (moles/volume) 96 mmol/L 98-107 Carbon dioxide 25 mmol/L 21-32 Serum or plasma anion gap determination (moles/volume) 16 mmol/L 5-14 Serum or plasma urea nitrogen measurement (mass/volume) 7 mg/dL 7-18 Serum or plasma creatinine measurement (mass/volume) 0.74 mg/dL 0.60-1.30 Serum or plasma urea nitrogen/creatinine mass ratio 9 NRG Serum or plasma creatinine measurement with calculation of estimated glomerular filtration rate > NRG Serum or plasma glucose measurement (mass/volume) 308 mg/dL 70-105 Serum or plasma calcium measurement (mass/volume) 9.6 mg/dL 8.5-10.1 Serum or plasma total bilirubin measurement (mass/volume) 0.6 mg/dL 0.1-1.0 Serum or plasma alkaline phosphatase measurement (enzymatic activity/volume) 156 U/L 40-136 Serum or plasma aspartate aminotransferase measurement (enzymatic activity/ volume) 83 U/L 5-34 Serum or plasma alanine aminotransferase measurement (enzymatic activity/volume ) 52 U/L 0-55 Serum or plasma protein measurement (mass/volume) 7.8 g/dL 6.4-8.2 Serum or plasma albumin measurement (mass/volume) 4.0 g/dL 3.2-4.5 CULTURE, URINE - 08/19/17 16:30 CULTURE, URINE, ROUTINE SEE NOTE NRG CULTURE, URINE - 08/26/17 11:46 CULTURE, URINE, ROUTINE SEE NOTE NRG Complete blood count (CBC) with automated white blood cell (WBC) differential - 09/15/17 09:25 Blood leukocytes automated count (number/volume) 11.6 10*3/uL 4.3-11.0 Blood erythrocytes automated count (number/volume) 4.64 10*6/uL 4.35-5.85 Venous blood hemoglobin measurement (mass/volume) 14.4 g/dL 11.5-16.0 Blood hematocrit (volume fraction) 44 % 35-52 Automated erythrocyte mean corpuscular volume 95 [foz_us] 80-99 Automated erythrocyte mean corpuscular hemoglobin (mass per erythrocyte) 31 pg 25-34 Automated erythrocyte mean corpuscular hemoglobin concentration measurement ( mass/volume) 33 g/dL 32-36 Automated erythrocyte distribution width ratio 14.2 % 10.0-14.5 Automated blood platelet count (count/volume) 285 10*3/uL 130-400 Automated blood platelet mean volume measurement 11.3 [foz_us] 7.4-10.4 Automated blood neutrophils/100 leukocytes 61 % 42-75 Automated blood lymphocytes/100 leukocytes 29 % 12-44 Blood monocytes/100 leukocytes 8 % 0-12 Automated blood eosinophils/100 leukocytes 2 % 0-10 Automated blood basophils/100 leukocytes 0 % 0-10 Blood neutrophils automated count (number/volume) 7.1 10*3 1.8-7.8 Blood lymphocytes automated count (number/volume) 3.4 10*3 1.0-4.0 Blood monocytes automated count (number/volume) 0.9 10*3 0.0-1.0 Automated eosinophil count 0.2 10*3/uL 0.0-0.3 Automated blood basophil count (count/volume) 0.0 10*3/uL 0.0-0.1 PT panel in platelet poor plasma by coagulation assay - 09/15/17 09:25 Prothrombin time (PT) in platelet poor plasma by coagulation assay 12.7 s 12.2-14.7 INR in platelet poor plasma or blood by coagulation assay 1.0 0.8-1.4 Activated partial thromboplastin time (aPTT) in platelet poor plasma bycoagulation assay - 09/15/17 09:25 Activated partial thromboplastin time (aPTT) in platelet poor plasma bycoagulation assay 29 s 24-35 Comprehensive metabolic panel - 09/15/17 09:25 Serum or plasma sodium measurement (moles/volume) 139 mmol/L 135-145 Serum or plasma potassium measurement (moles/volume) 3.8 mmol/L 3.6-5.0 Serum or plasma chloride measurement (moles/volume) 98 mmol/L 98-107 Carbon dioxide 28 mmol/L 21-32 Serum or plasma anion gap determination (moles/volume) 13 mmol/L 5-14 Serum or plasma urea nitrogen measurement (mass/volume) 6 mg/dL 7-18 Serum or plasma creatinine measurement (mass/volume) 0.66 mg/dL 0.60-1.30 Serum or plasma urea nitrogen/creatinine mass ratio 9 NRG Serum or plasma creatinine measurement with calculation of estimated glomerular filtration rate > NRG Serum or plasma glucose measurement (mass/volume) 170 mg/dL 70-105 Serum or plasma calcium measurement (mass/volume) 9.5 mg/dL 8.5-10.1 Serum or plasma total bilirubin measurement (mass/volume) 0.7 mg/dL 0.1-1.0 Serum or plasma alkaline phosphatase measurement (enzymatic activity/volume) 128 U/L 40-136 Serum or plasma aspartate aminotransferase measurement (enzymatic activity/ volume) 59 U/L 5-34 Serum or plasma alanine aminotransferase measurement (enzymatic activity/volume ) 42 U/L 0-55 Serum or plasma protein measurement (mass/volume) 7.3 g/dL 6.4-8.2 Serum or plasma albumin measurement (mass/volume) 3.9 g/dL 3.2-4.5 Magnesium - 09/15/17 09:25 Magnesium 1.9 mg/dL 1.8-2.4 Serum or plasma troponin i.cardiac measurement (mass/volume) - 09/15/17 09:25 Serum or plasma troponin i.cardiac measurement (mass/volume) < ng/ mL <0.30 Myoglobin, serum - 09/15/17 09:25 Myoglobin, serum 19.0 ng/mL 10.0-92.0 Fibrin D-dimer FEU measurement in platelet poor plasma (mass/volume) - 09:25 Fibrin D-dimer FEU measurement in platelet poor plasma (mass/volume) 0.40 ug/mL 0.00-0.49 PDM - PANEL (PROFILE 1) - 09/23/17 11:11 Prescribed Drug 1 Xanax(TM) NRG Creatinine 115.7 mg/dL > or=20.0 pH 6.48 4.5 - 9.0 Oxidant NEGATIVE mcg/mL <200 Amphetamines NEGATIVE ng/mL <500 medMATCH Amphetamines CONSISTENT NRG Benzodiazepines POSITIVE ng/mL <100 Marijuana Metabolite NEGATIVE ng/mL <20 medMATCH Marijuana Metab CONSISTENT NRG Cocaine Metabolite NEGATIVE ng/mL <150 medMATCH Cocaine Metab CONSISTENT NRG Opiates NEGATIVE ng/mL <100 medMATCH Opiates INCONSISTENT NRG Oxycodone NEGATIVE ng/mL <100 medMATCH Oxycodone CONSISTENT NRG COMMENT NRG Alphahydroxyalprazolam 399 ng/mL <25 medMATCH aOH alprazolam CONSISTENT NRG [...] medMATCH Temazepam CONSISTENT NRG Prescribed Drug 2 Hydrocodone NRG Barbiturates NEGATIVE ng/mL <300 medMATCH Barbiturates CONSISTENT NRG Methadone Metabolite NEGATIVE ng/mL <100 medMATCH Methadone Metab CONSISTENT NRG Phencyclidine NEGATIVE ng/mL <25 medMATCH Phencyclidine CONSISTENT NRG Encounters ACCT No. Visit Date/Time Discharge Status Pt. Type Provider Facility Loc./Unit Complaint [id number] 09/30/2017 12:57:00 09/30/2017 23:59:59 CLS Outpatient YUKO GARRETT MD [facility] CARD CHEST PAIN SYNDROME,GERD ,HTN,COPD [id number] 09/19/2017 13:29:00 09/19/2017 23:59:59 CLS Preadmit YUKO GARRETT MD [facility] CARD CHEST PAIN SYNDROME,GERD ,HTN,COPD [id number] 09/19/2017 13:11:00 09/19/2017 23:59:59 CLS Preadmit YUKO GARRETT MD [facility] CARD CHEST PAIN SYNDROME,GERD ,HTN,COPD [id number] 09/15/2017 09:16:00 09/15/2017 12:28:00 DIS Emergency JULIENNE CLEVELAND MD [facility] ER CP,STRAIN IN BACK,SOB [id number] 08/16/2017 20:47:00 08/16/2017 21:52:00 DIS Emergency THELMA FARAH CHIEF I DISPATCHER [facility] ER RUSSELL;NECK PAIN [id number] 06/23/2017 06:43:00 06/23/2017 23:59:59 CLS Outpatient SOTERO HUIZAR CHIEF I DISPATCHER [facility] RAD RUQ PAIN [id number] 04/28/2017 09:51:00 04/28/2017 23:59:59 CLS Preadmit MIRELLA MCMILLAN CHIEF I DISPATCHER [facility] RAD R91.1,Z72.0 [id number] 04/27/2017 09:42:00 04/27/2017 23:59:59 CLS Outpatient MIRELLA MCMILLAN CHIEF I DISPATCHER [facility] RT I44.9 COPD [id number] 04/16/2017 22:16:00 04/17/2017 01:15:00 DIS Emergency RICHARD WRIGHT, GWEN Blank [facility] ER CHEST PAIN AND BACK PAIN FROM DRY COUGH [id number] 04/05/2017 09:16:00 04/05/2017 23:59:59 CLS Outpatient MIRELLA MCMILLAN APRN [facility] RAD R91.1 LUNG NODULE [id number] 03/29/2017 10:15:00 03/29/2017 23:59:59 CLS Preadmit SOTERO HUIZAR APRN [facility] RAD LUNG NODULE INCREASING IN SIZE [id number] 03/21/2017 00:21:00 03/21/2017 23:59:59 CLS Preadmit IGOR ARANA MD [facility] ONC [id number] 12/20/2016 15:01:00 03/20/2017 00:01:00 DIS Outpatient IGOR ARANA MD [facility] ONC [id number] 03/12/2017 12:32:00 03/12/2017 16:27:00 DIS Emergency PRISCILLA HUNT [facility] ER ABD PAIN, SHAKY, 4 PREVIOUS BRAIN-STEM FLORES [id number] 11/09/2016 20:08:00 11/09/2016 23:58:00 DIS Emergency NATHAN WRIGHT, AKBAR Solis [facility] ER DIZZINESS,NAUSEA [id number] 06/29/2016 15:16:00 09/12/2016 00:01:00 DIS Outpatient GILBERT GOMEZ MD [facility] ONC [id number] 08/16/2016 13:54:00 08/16/2016 16:50:00 DIS Emergency PRISCILLA HUNT [facility] ER UTI [id number] 07/02/2016 10:14:00 07/02/2016 23:59:59 CLS Outpatient GILBERT GOMEZ MD [facility] RAD HEADACHE,DIZZINESS [id number] 12/18/2015 09:01:00 03/17/2016 00:01:00 DIS Outpatient GILBERT GOMEZ MD [facility] ONC [id number] 09/18/2015 12:52:00 10/29/2015 00:01:00 DIS Outpatient GILBERT GOMEZ MD [facility] ONC [id number] 09/12/2015 20:37:00 2015 01:00:00 DIS Emergency JOSE ADLER DO [facility] ER DIZZINESS [id number] 09/10/2015 01:28:00 09/10/2015 03:57:00 DIS Emergency AKBAR EVANS MD [facility] ER RUSSELL,BLURRY EYES,BLOOD SUGAR HIGH,DIZZY [id number] 07/24/2015 09:02:00 07/24/2015 23:59:59 CLS Outpatient GILBERT GOMEZ MD [facility] ONC [id number] 05/23/2015 23:06:00 05/24/2015 00:31:00 DIS Emergency RONAN SOTO MD [facility] ER FULL BODY TINGLING/ NUMBNESS [id number] 05/22/2015 13:58:00 05/22/2015 16:11:00 DIS Emergency THELMA FARAH APRN [facility] ER DIZZINESS LIPS NUMBNESS [id number] 04/28/2015 11:14:00 04/28/2015 23:59:59 CLS Outpatient PASTOR CISNEROS MD [facility] RAD CALF PAIN,HEADACHES, DIABETES [id number] 03/28/2015 22:08:00 03/28/2015 23:59:59 CLS Emergency JOSE ADLER DO [facility] ER DIZZINESS,FACIAL NUMBNESS [id number] 03/24/2015 10:00:00 03/24/2015 23:59:59 CLS Preadmit PASTOR CISNEROS MD [facility] DSME TYPE 2 DIABETES [id number] 12/23/2014 17:00:00 03/23/2015 00:01:00 DIS Outpatient PASTOR CISNEROS MD [facility] DSME TYPE 2 DIABETES [id number] 03/21/2015 10:24:00 03/21/2015 23:59:59 CLS Outpatient PASTOR CISNEROS MD [facility] LAB TYPE 2 DIABETES INSULIN DEPENDENT [id number] 01/15/2015 08:11:00 01/15/2015 23:59:59 CLS Outpatient YUKO GARRETT MD [facility] CARD CPS,HTN,PALPITATIONS, SOB [id number] 12/02/2014 10:00:00 12/18/2014 00:01:00 DIS Outpatient PASTOR CISNEROS MD [facility] DSME TYPE 2 DIABETES [id number] 07/25/2014 08:49:00 10/23/2014 00:01:00 DIS Outpatient GILBERT GOMEZ MD [facility] ONC [id number] 08/27/2014 15:20:00 08/27/2014 23:59:59 CLS Outpatient JACOB NEWSOME MD [facility] RAD FOLLOW UP PER RADIOLOGIST [id number] 08/26/2014 12:47:00 08/26/2014 23:59:59 CLS Outpatient JACOB NEWSOME MD [facility] RAD CEREBRAL ATHEROSCLEROSIS [id number] 07/23/2014 20:00:00 07/23/2014 23:59:59 CLS Preadmit YUKO GARRETT MD [facility] SLEEP SNORING,HTN,HX OF STROKE [id number] 07/18/2014 11:36:00 07/18/2014 15:39:00 DIS Emergency AKBAR EVANS MD [facility] ER DIZZINESS,NAUSEA [id number] 06/17/2014 08:15:00 06/17/2014 23:59:59 CLS Outpatient YUKO GARRETT MD [facility] CARD PALPITATIONS SOB HTN [id number] 01/24/2014 08:49:00 04/24/2014 00:01:00 DIS Outpatient GILBERT GOMEZ MD [facility] ONC [id number] 02/13/2014 10:00:00 03/29/2014 16:22:00 DIS Outpatient PASTOR CISNEROS MD [facility] REHAB CVA [id number] 11/22/2013 09:41:00 01/14/2014 00:01:00 DIS Outpatient PASTOR CISNEROS MD [facility] REHAB CVA [id number] 10/25/2013 10:49:00 01/09/2014 00:01:00 DIS Outpatient GILBERT GOMEZ MD [facility] ONC [id number] 12/18/2013 09:18:00 12/18/2013 23:59:59 CLS Outpatient PASTOR CISNEROS MD [facility] RAD CHOKING,TROUBLE SWALLOWING [id number] 12/14/2013 19:01:00 12/14/2013 20:23:00 DIS Emergency RONAN SOTO MD [facility] ER CONGESTION [id number] 10/04/2013 13:16:00 10/04/2013 23:59:59 CLS Outpatient PASTOR CISNEROS MD [facility] RAD NEUROLOGICAL CHANGES, RECENT STROKE [id number] 09/24/2013 18:13:00 09/28/2013 13:30:00 DIS Inpatient MICHELLE WRIGHT, SILVIA E [facility] IRF CVA [id number] 09/15/2013 14:10:00 09/18/2013 12:35:00 DIS Outpatient PASTOR CISNEROS MD [facility] SDC VERTIGO [id number] 09/07/2013 08:36:00 09/07/2013 23:59:59 CLS Outpatient PASTOR CISNEROS MD [facility] RT SEIZURE TYPE ACTIVITY [id number] 07/03/2013 12:37:00 07/03/2013 23:59:59 CLS Outpatient SULEMA HUDSON MD [facility] CARD CP,HTN [id number] 06/20/2013 08:30:00 06/20/2013 23:59:59 CLS Outpatient PASTOR CISNEROS MD [facility] LAB HYPOGLYCEMIA,FLUXUATING BLOOD SUGAR [id number] 06/08/2013 09:00:00 06/08/2013 23:59:59 CLS Outpatient SULEMA HUDSON MD [facility] CARD CP,HTN [id number] 05/21/2013 14:03:00 05/21/2013 23:59:59 CLS Outpatient PASTOR CISNEROS MD [facility] CARD HYPERTENSION,PERIPHERD EDEMA,SMOKER,CARDIMEGALY,CH [id number] 05/17/2013 21:44:00 05/17/2013 23:59:59 CLS Outpatient PASTOR CISNEROS MD [facility] LAB LIPID PANEL [id number] 05/17/2013 12:24:00 05/17/2013 23:59:59 CLS Outpatient PASTOR CISNEROS MD [facility] LAB EDEMA,FATIGUE,TACHYCARDIA ,JOINT PAIN [id number] 02/02/2013 14:11:00 02/23/2013 10:40:00 DIS Outpatient PASTOR CISNEROS MD [facility] REHAB NECK PAIN, UPPER BACK PAIN RADIATING LEFT SHOULDER [id number] 10/31/2012 14:21:00 10/31/2012 23:59:59 CLS Outpatient PASTOR CISNEROS MD [facility] RAD NECK PAIN,TENDERNESS RADIATING FROM ARM TO BACK OF [id number] 09/04/2012 08:56:00 09/04/2012 23:59:59 CLS Outpatient PASTOR CISNEROS MD [facility] RAD ABD PAIN,BLOATING R. SIDED FIRMNESS [id number] 09/01/2012 09:16:00 09/01/2012 10:45:00 DIS Outpatient PASTOR CISNEROS MD [facility] ABNORMAL MRI OF BRAIN; MULTIPLE SCLEROSIS [id number] 07/18/2012 08:50:00 07/18/2012 23:59:59 CLS Outpatient PASTOR CISNERSO MD [facility] RAD FOLLOW UP ABD MRI [id number] 08/26/2014 12:46:00 Document Registration [id number] 05/19/2014 09:39:00 Document Registration [id number] 05/11/2014 19:49:00 Document Registration [id number] 06/26/2012 11:26:00 Document Registration [id number] 05/19/2012 09:58:00 Document Registration [id number] 04/20/2012 12:51:00 Document Registration [id number] 01/04/2012 12:04:00 Document Registration [id number] 12/31/2011 08:48:00 Document Registration [id number] 11/22/2011 22:34:00 Document Registration [id number] 10/08/2011 22:58:00 Document Registration [id number] 10/07/2011 13:12:00 Document Registration [id number] 07/26/2011 14:37:00 Document Registration [id number] 04/05/2011 08:01:00 Document Registration [id number] 02/03/2011 11:11:00 Document Registration [id number] 02/01/2011 11:54:00 Document Registration [id number] 12/08/2010 08:13:00 Document Registration [id number] 08/25/2009 10:44:00 Document Registration [id number] 03/17/2016 18:05:00 Document Registration [id number] 09/15/2016 17:09:00 Document Registration [id number] 01/07/2017 07:05:00 Document Registration [id number] 10/27/2017 08:40:00 10/27/2017 23:59:59 [facility] SOTERO HUIZAR [facility] [id number] 09/23/2017 09:40:00 Document Registration [id number] 08/26/2017 11:20:00 Document Registration [id number] 08/19/2017 16:05:00 Document Registration [id number] 08/02/2017 08:20:00 Document Registration [id number] 06/23/2017 16:40:00 Document Registration [id number] 06/17/2017 14:40:00 Document Registration [id number] 05/11/2017 14:45:00 Document Registration [id number] 01/06/2017 14:00:00 Document Registration [id number] 07/28/2016 19:07:00 Document Registration
== END 2017-11-04 09:00 | disposition home or self-care (01) ==
LOC: EDUNIT# 08:00 → ER 08:02
DX: N39.0 Urinary tract infection, site not specified (principal); E78.00 Pure hypercholesterolemia, unspecified; I10 Essential (primary) hypertension; K21.9 Gastro-esophageal reflux disease without esophagitis; E11.9 Type 2 diabetes mellitus without complications; F41.9 Anxiety disorder, unspecified; G43.909 Migraine, unspecified, not intractable, without status migrainosus; F17.210 Nicotine dependence, cigarettes, uncomplicated; Z87.59 Personal history of other complications of pregnancy, childbirth and the puerperium; Z80.0 Family history of malignant neoplasm of digestive organs; Z82.49 Family history of ischemic heart disease and other diseases of the circulatory system; Z87.440 Personal history of urinary (tract) infections; Z98.51 Tubal ligation status; Z86.73 Personal history of transient ischemic attack (TIA), and cerebral infarction without residual deficits; Z88.0 Allergy status to penicillin; Z88.5 Allergy status to narcotic agent; Z88.8 Allergy status to other drugs, medicaments and biological substances; Z79.82 Long term (current) use of aspirin; Z79.02 Long term (current) use of antithrombotics/antiplatelets
CPT/HCPCS: 81000; 87077; 87088; 87186; 99283

== ENCOUNTER 2017-11-24 16:52 | Emergency (ER) | payer MEDICARE, MEDICAID ==
[~2017-11-24] VITALS: Ht 157.5 cm; Wt 88.9 kg
[~2017-11-24 16:52] MED LIST changes: +CIPR-225 PO
--- NOTE | 2017-11-24 17:13 | ED General ---
General Chief Complaint: General Problems/Pain Stated Complaint: DIZZINESS;NAUSEA;TICK BITE Source of Information: Patient Exam Limitations: No Limitations History of Present Illness Date Seen by Provider: Nov 24, 2017 Time Seen by Provider: 17:11 Initial Comments To ER per private vehicle with reports of nausea dizziness and mild headache for about 3 days. She pulled a tick off of her yesterday. Denies vomiting. Denies fevers or chills or joint pain or rash. Timing/Duration: 2-3 Days Severity: Moderate Allergies and Home Medications Allergies Coded Allergies: erythromycin base (Unverified Allergy, Mild, 11/11/08) Penicillins (Verified Allergy, Unknown, 11/14/08) codeine (Verified Allergy, Unknown, 11/14/08) nitrofurantoin (Verified Allergy, Unknown, 11/04/17) Home Medications Acetaminophen 325 Mg Tab, 650 MG PO Q4H PRN for mild pain or fever Prescribed by: ERNESTO SY on 09/28/13931 Aspirin 81 Mg Tablet., 81 MG PO DAILY, (Reported) Atorvastatin Calcium 80 Mg Tablet, 80 MG PO HS Prescribed by: CELIA ISAACS on 09/24/131849 Bisacodyl 10 Mg Supp, 10 MG DE DAILY PRN for CONSTIPATION Prescribed by: ERNESTO SY on 09/28/13931 Ciprofloxacin HCl 500 Mg Tablet, 500 MG PO BID Prescribed by: JOSE ADLER on 11/04/17914 Clopidogrel Bisulfate 75 Mg Tablet, 1 EACH PO DAILY Prescribed by: CELIA ISAACS on 09/24/131849 Diltiazem Hcl 30 Mg Tab, 30 MG PO Q8HR Prescribed by: ERNESTO SY on 09/28/13931 Hydrochlorothiazide 12.5 Mg Cap, 25 MG PO DAILY, (Reported) Hydrocodone Bit/Acetaminophen 1 Each Tablet, 1 EACH PO NEEDED, (Reported) Melatonin/Pyridoxine Hcl (B6) 1 Each Tab.mphase, 1 EACH PO HS, (Reported) Metoprolol Tartrate 25 Mg Tablet, 25 MG PO BID Prescribed by: ERNESTO SY on 09/28/13931 Nystatin 60 Ml Btl, 5 ML PO Q6H swish and swallow QID x5 days Prescribed by: THELMA FARAH on 05/11/142017 Omeprazole 40 Mg Capsule., 40 MG PO DAILY, (Reported) Ondansetron 4 Mg Tab.rapdis, 4 MG SL Q4H PRN for NAUSEA/VOMITING Prescribed by: AKBAR BARROW on 09/10/15 0349 Ondansetron Hcl 4 Mg Tab, 4 MG SL Q4H FOR NAUSEA AND VOMITING Prescribed by: BLAIR DANIELS on 05/19/14 1128 Polyethylene Glycol 17 Gm Pack, 17 GM PO DAILY PRN for CONSTIPATION Prescribed by: CELIA ISAACS on 09/24/13 1850 Senna 1 Ea Tablet, 1 EA PO BID Prescribed by: ERNESTO SY on 09/28/13 0932 Patient Home Medication List Home Medication List Reviewed: Yes Review of Systems Review of Systems Constitutional: see HPI EENTM: see HPI Respiratory: no symptoms reported Cardiovascular: no symptoms reported Gastrointestinal: No abdominal pain; diarrhea, nausea; No vomiting Genitourinary: no symptoms reported Musculoskeletal: no symptoms reported Skin: no symptoms reported Psychiatric/Neurological: See HPI, Headache Hematologic/Lymphatic: No Symptoms Reported Past [place]-Llcbpf-Sotvna Hx Patient Social History Type Used: Cigarettes 2nd Hand Smoke Exposure: No Recent Foreign Travel: No Contact w/Someone Who Travel: No Recent Hopitalizations: No Immunizations Up To Date Tetanus Booster (TDap): Unknown PED Vaccines UTD: No Date of Influenza Vaccine: Jan 07, 2017 Seasonal Allergies Seasonal Allergies: No Past Medical History Surgeries: Yes (egd, colonoscopy) Section, Gallbladder, Tubal Ligation Respiratory: No (l lung nodule) Cardiac: Yes High Cholesterol, Hypertension, Irregular Heartbeat Neurological: Yes (r sided numbness r/t previous stroke) Headaches /Migraines, Stroke, Vertigo Reproductive Disorders: Yes Female Reproductive Disorders: Endometriosis 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, 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 Sexually Transmitted Disease: No Genitourinary: Yes UTI-Chronic Gastrointestinal: Yes Gastroesophageal Reflux, Hiatal Hernia, Gall Bladder Disease Musculoskeletal: Yes Arthritis Endocrine: No Diabetes, Insulin dep HEENT: No Cancer: No Psychosocial: Yes Anxiety Integumentary: No Blood Disorders: Yes ("CLOTTING DISORDER", chronic leukocytosis) Adverse Reaction/Blood Tranf: No Family Medical History Cancer 19 MOTHER (THROAT CANCER) Family history: Hypertension 19 MOTHER History of - disorder G8 SISTER (SISTER HAD MS) Myocardial infarction 19 FATHER 19 MOTHER Stroke 19 MOTHER Heart Disease, Hypertension, Stroke Physical Exam Vital Signs Vital Signs - First Documented 11/24/17 17:00 Temp 97.8 Pulse 91 Resp 18 B/P (MAP) 110/43 (65) Pulse Ox 92 Capillary Refill : Height, Weight, BMI Height: 5'2.00" Weight: 197lbs. 0.0oz. 89.781340yd; 43.9 BMI Method:Stated General Appearance: No Apparent Distress, WD/WN Eyes: Bilateral Eye Normal Inspection, Bilateral Eye PERRL, Bilateral Eye EOMI HEENT: PERRL/EOMI, TMs Normal Neck: Full Range of Motion, Normal Inspection Respiratory: Normal Breath Sounds, No Accessory Muscle Use, No Respiratory Distress Cardiovascular: Regular Rate, Rhythm, Normal Peripheral Pulses Gastrointestinal: Normal Bowel Sounds, Non Tender, Soft Extremity: Normal Capillary Refill, Normal Inspection Neurologic/Psychiatric: Alert, Oriented x3, No Motor/Sensory Deficits Skin: Normal Color, Warm/Dry Progress/Results/Core Measures Suspected Sepsis SIRS Temperature: Pulse: Respiratory Rate: Laboratory Tests 11/24/17 17:15: White Blood Count 13.9H Blood Pressure / Mean: Laboratory Tests 11/24/17 17:15: Creatinine 0.79, Platelet Count 337, Total Bilirubin 0.7 Results/Orders Lab Results Laboratory Tests Test 11/24/17 17:15 Range/Units White Blood Count 13.9 H 4.3-11.0 10^3/uL Red Blood Count 4.80 4.35-5.85 10^6/uL Hemoglobin 14.8 11.5-16.0 G/DL Hematocrit 46 35-52 % Mean Corpuscular Volume 96 80-99 FL Mean Corpuscular Hemoglobin 31 25-34 PG Mean Corpuscular Hemoglobin Concent 32 32-36 G/DL Red Cell Distribution Width 15.0 H 10.0-14.5 % Platelet Count 337 130-400 10^3/uL Mean Platelet Volume 11.1 H 7.4-10.4 FL Neutrophils (%) (Auto) 65 42-75 % Lymphocytes (%) (Auto) 25 12-44 % Monocytes (%) (Auto) 9 0-12 % Eosinophils (%) (Auto) 1 0-10 % Basophils (%) (Auto) 0 0-10 % Neutrophils # (Auto) 9.0 H 1.8-7.8 X 10^3 Lymphocytes # (Auto) 3.4 1.0-4.0 X 10^3 Monocytes # (Auto) 1.3 H 0.0-1.0 X 10^3 Eosinophils # (Auto) 0.2 0.0-0.3 10^3/uL Basophils # (Auto) 0.1 0.0-0.1 10^3/uL Urine Color YELLOW Urine Clarity CLEAR Urine pH 7 5-9 Urine Specific [place] 1.010 L 1.016-1.022 Urine Protein 1+ H NEGATIVE Urine Glucose (UA) 2+ H NEGATIVE Urine Ketones NEGATIVE NEGATIVE Urine Nitrite NEGATIVE NEGATIVE Urine Bilirubin NEGATIVE NEGATIVE Urine Urobilinogen NORMAL NORMAL MG/DL Urine Leukocyte Esterase 2+ H NEGATIVE Urine RBC (Auto) NEGATIVE NEGATIVE Urine RBC NONE /HPF Urine WBC 5-10 H /HPF Urine Squamous Epithelial Cells 10-25 H /HPF Urine Crystals NONE /LPF Urine Bacteria LARGE H /HPF Urine Casts NONE /LPF Urine Mucus NEGATIVE /LPF Urine Culture Indicated YES Sodium Level 135 135-145 MMOL/L Potassium Level 4.1 3.6-5.0 MMOL/L Chloride Level 94 L 98-107 MMOL/L Carbon Dioxide Level 28 21-32 MMOL/L Anion Gap 13 5-14 MMOL/L Blood Urea Nitrogen 8 7-18 MG/DL Creatinine 0.79 0.60-1.30 MG/DL Estimat Glomerular Filtration Rate > 60 BUN/Creatinine Ratio 10 Glucose Level 278 H 70-105 MG/DL Calcium Level 9.7 8.5-10.1 MG/DL Corrected Calcium 9.6 8.5-10.1 MG/DL Total Bilirubin 0.7 0.1-1.0 MG/DL Aspartate Amino Transf (AST/SGOT) 63 H 5-34 U/L Alanine Aminotransferase (ALT/SGPT) 36 0-55 U/L Alkaline Phosphatase 168 H 40-136 U/L Total Protein 8.2 6.4-8.2 GM/DL Albumin 4.1 3.2-4.5 GM/DL My Orders Orders - THELMA FARAH APRN Cbc With Automated Diff (11/24/17 17:05) Comprehensive Metabolic Panel (11/24/17 17:05) Ondansetron Oral Dissolve Tab (Zofran (11/24/17 17:15) Tick Panel With Lyme Eia (11/24/17 17:05) Ua Culture If Indicated (11/24/17 17:07) Ct Head Wo (11/24/17 17:10) Meclizine Tablet (Antivert Tablet) (11/24/17 17:15) Urine Culture (11/24/17 17:15) Medications Given in ED Current Medications Medications Dose Ordered Sig/Lorie Route Start Time Stop Time Status Last Admin Dose Admin Meclizine HCl 25 mg ONCE ONCE PO 11/24/17 17:15 11/24/17 17:16 DC 11/24/17 17:33 25 MG Ondansetron HCl 8 mg ONCE ONCE PO 11/24/17 17:15 11/24/17 17:16 DC 11/24/17 17:33 8 MG Vital Signs/I&O 11/24/17 17:00 Temp 97.8 Pulse 91 Resp 18 B/P (MAP) 110/43 (65) Pulse Ox 92 Capillary Refill : Departure Impression Primary Impression: Dizziness Additional Impressions: Urinary tract infection Nausea Disposition: 01 HOME, SELF-CARE Condition: Stable Departure-Patient Inst. Decision time for Depature: 17:56 Referrals: [facility] [place] (PCP/Family) Primary Care Physician Patient Instructions: Urinary Tract Infection, Adult (DC) Add. Discharge Instructions: All discharge instructions reviewed with patient and/or family. Voiced understanding. 1. Return to ER for any concerns 2. Follow-up with your doctor next week 3. Scripts Cefuroxime Axetil (Cefuroxime) 250 Mg Tablet 250 MG PO BID, #10 TAB Prov: THELMA FARAH APRN 11/24/17 THELMA FARAH APRN Nov 24, 2017 17:13
[2017-11-24] MEDS ORDERED: ONDANSETRON 4 MG (ZOFRAN) ORAL DISSOLVE TAB PO ONE (17:15)
[2017-11-24] MEDS ORDERED: MECLIZINE 25 MG (ANTIVERT) TAB PO ONE (17:15)
[2017-11-24 17:40] LABS: BASOPHILS # (AUTO) 0.1 10^3/uL (0.0-0.1); BASOPHILS % (AUTO) 0 % (0-10); EOSINOPHILS # (AUTO) 0.2 10^3/uL (0.0-0.3); EOSINOPHILS % (AUTO) 1 % (0-10); HEMATOCRIT 46 % (35-52); HEMOGLOBIN 14.8 G/DL (11.5-16.0); LYMPHOCYTES # (AUTO) 3.4 X 10^3 (1.0-4.0); LYMPHOCYTES % (AUTO) 25 % (12-44); MEAN CORPUSCULAR HEMOGLOBIN 31 PG (25-34); MEAN CORPUSCULAR HGB CONC 32 G/DL (32-36); MEAN CORPUSCULAR VOLUME 96 FL (80-99); MEAN PLATELET VOLUME 11.1 FL (7.4-10.4); MONOCYTES # (AUTO) 1.3 X 10^3 (0.0-1.0); MONOCYTES % (AUTO) 9 % (0-12); NEUTROPHILS % (AUTO) 65 % (42-75); PLATELET COUNT 337 10^3/uL (130-400); WHITE BLOOD COUNT 13.9 10^3/uL (4.3-11.0)
[2017-11-24 17:41] LABS: BILIRUBIN,URINE NEGATIVE (NEGATIVE); CLARITY,URINE CLEAR; COLOR,URINE YELLOW; GLUCOSE, URINE (UA) 2+ (NEGATIVE); KETONES,URINE NEGATIVE (NEGATIVE); LEUKOCYTE ESTERASE ,URINE 2+ (NEGATIVE); NITRITE,URINE NEGATIVE (NEGATIVE); PH,URINE 7 (5-9); PROTEIN,URINE 1+ (NEGATIVE); UROBILINOGEN,URINE NORMAL (NORMAL)
--- NOTE | 2017-11-24 17:47 | Diagnostic Imaging Report ---
PROCEDURE: CT head without contrast. TECHNIQUE: Multiple contiguous axial images were obtained through the brain without the use of intravenous contrast. INDICATION: Head pain right-sided. COMPARISON: 08/16/2017. FINDINGS: There is no intracranial hemorrhage, hydrocephalus, edema, mass, or mass effect. The basilar cisterns are patent and sulci non-effaced. There are no findings suggestive of an elevation of the intracranial pressures. Calvarium and orbits are unremarkable. The mastoids and middle ear cavities are unremarkable. The paranasal sinuses are unremarkable. IMPRESSION: Stable normal CT head. Dictated by: Dictated on workstation # [id number]
[2017-11-24 17:51] LABS: BACTERIA,URINE LARGE /HPF
[2017-11-24 18:04] LABS: ALANINE AMINOTRANSFERASE 36 U/L (0-55); ALBUMIN 4.1 GM/DL (3.2-4.5); ALKALINE PHOSPHATASE 168 U/L (40-136); BILIRUBIN,TOTAL 0.7 MG/DL (0.1-1.0); BUN/CREATININE RATIO 10; CALCIUM 9.7 MG/DL (8.5-10.1); CARBON DIOXIDE 28 MMOL/L (21-32); CHLORIDE 94 MMOL/L (98-107); CREATININE SERUM 0.79 MG/DL (0.60-1.30); GFR ESTIMATED > 60; GLUCOSE 278 MG/DL (70-105); POTASSIUM 4.1 MMOL/L (3.6-5.0); SODIUM 135 MMOL/L (135-145); TOTAL PROTEIN 8.2 GM/DL (6.4-8.2)
[2017-11-24 18:08] VITALS: BP 110/43
[2017-11-24] MEDS ORDERED: CEFU250T80 PO (18:09)
--- OUTSIDE RECORDS SUMMARY | 2017-11-24 21:34 | XMS REPORT | Clinical Summary ---
Author Author [facility] Organization [facility] Address Unknown Phone Unavailable Care Team Providers [facility] [employer] Name Role Phone Unknown, Unknown Md PCP Unavailable Source Comments Some departments are not documenting in the electronic medical record. If you do not see the information that you expected, contact Release of Information in the Health Information Management department at [phone] for further assistance in locating additional records.[facility] Allergies Not on File Current Medications [...]
--- OUTSIDE RECORDS SUMMARY | 2017-11-24 21:35 | XMS REPORT ---
Author Author SOTERO HUIZAR Organization [facility] Address [address] [place] [address] Care Team Providers Care Veneer Jointer Name Role Phone HUIZARMICHAEL CoxELE Unavailable PROBLEMS Type Condition ICD9-CM Code CGY65-MP Code Onset Dates Condition Status SNOMED Code Problem Tobacco abuse Z72.0 Active 675991463 Problem Seasonal allergic rhinitis due to pollen J30.1 Active 34806417 Problem Tobacco abuse counseling Z71.6 Active 861265851 Problem Abnormal drug screen R89.2 Active 358264578 Problem Acute non intractable tension-type headache G44.209 Active 266322086 Problem group home current use of insulin Z79.4 Active 482499855 Problem History of CVA with residual deficit I69.30 Active 309580627 Problem Chronic pain syndrome G89.4 Active 375384338 Problem Type 2 diabetes mellitus with hyperglycemia E11.65 Active 33920305 Problem Elevated liver enzymes R74.8 Active 076362672 Problem Generalized anxiety disorder F41.1 Active 43665654 Problem Vitamin D deficiency E55.9 Active 10655007 Problem Major depressive disorder, recurrent episode, moderate F33.1 Active 555443998 Problem Hyperlipidemia, unspecified hyperlipidemia type E78.5 Active 92229206 Problem Gastroesophageal reflux disease, esophagitis presence not specified K21.9 Active 544634021 Problem 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 Active 415591609 Problem Essential hypertension I10 Active 87750746 Problem DM (diabetes mellitus) with complications E11.8 Active 09002819 Problem Other chronic pain G89.29 Active 58478565 ALLERGIES No Information ENCOUNTERS Encounter Location Date Diagnosis [facility] [id number], [place] [address] Oct, [facility] [id number], [place] [address] Oct, [facility] [id number] [place] [address] 72140 -7781 Oct, Dysuria R30.0 and Acute cystitis with hematuria N30.01 [facility] [id number] [place] [address] 53633- 2622 Oct, [facility] [id number] [place] [address] 78949- 7997 Oct, [facility] [id number] [place] [address] 12537- 3937 Oct, Controlled substance agreement broken Z91.14 ; Violation of controlled substance agreement Z91.14 ; Other chronic pain G89.29 and Generalized anxiety disorder F41.1 [place] [id number] [place] [address] 42019- 0580 Oct, [facility] [id number] [place] [address] 43517- 0103 Oct, [facility] [id number] [place] [address] 05606- 2274 Sep, Abscess L02.91 [facility] [id number] [place] [address] 61120- 7175 Sep, [facility] [id number] [place] [address] 97550- 0730 Sep, DM (diabetes mellitus) with complications E11.8 ; Generalized anxiety disorder F41.1 and Chronic pain syndrome G89.4 [place] [id number] [place] [address] 39061- 1220 Sep, Generalized anxiety disorder F41.1 ; Chronic pain syndrome G89.4 ; Abnormal drug screen R89.2 and Other chest pain R07.89 [facility] [id number] [place] [address] 53849- 8779 Aug, Dysuria R30.0 [facility] [id number] [place] [address] 71861- 3928 Aug, Generalized anxiety disorder F41.1 ; Chronic pain syndrome G89.4 and Dysuria R30.0 [facility] [address], [place] [address] Aug, Acute cystitis with hematuria N30.01 and Candidal dermatitis B37.2 [facility] [id number] [place] [address] 07814- 5002 Aug, Dysuria R30.0 [facility] [id number] [place] [address] 79395- 9780 Aug, [facility] [id number] [place] [address] 73789 -9886 Aug, Dysuria R30.0 [facility] [id number] [place] [address] 00987- 3279 Aug, [facility] [id number] [place] [address] 43430- 4611 July, Cervicalgia M54.2 ; Acute non intractable tension-type headache G44.209 ; Type 2 diabetes mellitus with hyperglycemia E11.65 and 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 [facility] [id number] [place] [address] 96045- 7757 July, Generalized anxiety disorder F41.1 and Chronic pain syndrome G89.4 [place] [id number] [place] [address] 29882- 9317 July, Abscess L02.91 [place] [id number] [place] [address] 10689- 3352 July, [place] [place] [id number] [place] [address] 03310- 9730 July, [facility] [id number] [place] [address] 50415- 7920 July, Type 2 diabetes mellitus with hyperglycemia E11.65 ; 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 ; Elevated [...] pain syndrome G89.4 and Vaginal candidiasis B37.3 [place] [address] 47213- 5533 Jun, Generalized anxiety disorder F41.1 and Other chronic pain G89.29 [place] [address] 43929- 5054 Jun, [place] [address] 39458- 8633 Jun, [place] [address] 55077- 2675 Jun, Abnormal levels of other serum enzymes R74.8 [place] [address] 86502- 8777 Jun, Abnormal levels of other serum enzymes R74.8 [place] [address] 17549- 5099 Jun, Elevated liver enzymes R74.8 [place] [address] 72083- 5529 Jun, Elevated liver enzymes R74.8 [place] [address] 39321- 3999 May, Right upper quadrant pain R10.11 ; Cervicalgia M54.2 and High risk medication use Z79.899 [place] [address] 81260- 9133 May, Generalized anxiety disorder F41.1 and Other chronic pain G89.29 [place] [address] 39975- 0396 May, Canker sores oral K12.0 [facility] [id number] [place] [address] 52712- 0814 May, Generalized anxiety disorder F41.1 and Other chronic pain G89.29 [facility] [id number] [place] [address] 14104- 7991 May, [facility] [address] 98920- 5761 Apr, [facility] [address] 24651 -3676 Apr, Acute cystitis with hematuria N30.01 and Dysuria R30.0 [place] [address] 14868- 3360 Apr, [place] [address] 12052- 9082 Apr, [facility] [address] 88427- 5559 Apr, DM (diabetes mellitus) with complications E11.8 [place] [address] 17435- 4836 Apr, DM (diabetes mellitus) with complications E11.8 [facility] [id number] [place] [address] 88591- 8187 Apr, [facility] [address] 53750- 8485 Apr, [facility] [id number] [place] [address] 78991- 7440 Apr, Other chronic pain G89.29 ; Generalized anxiety disorder F41.1 ; Cervicalgia M54.2 and Controlled substance agreement signed Z79.899 [facility] [id number] [place] [address] 98878 -2787 Mar, Abdominal pain R10.9 and Viral gastroenteritis A08.4 [place] [id number] [place] [address] 42769- 6763 Mar, [place] [address] 51850- 3340 Mar, [facility] [id number] [place] [address] 91312- 2881 Mar, DM (diabetes mellitus) with complications E11.8 [...] not specified K21.9 and 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 [place] [id number] [place] [address] 54101- 1846 Mar, [place] [id number] [place] [address] 40991- 0810 Mar, DM (diabetes mellitus) with complications E11.8 ; Abnormal lung sounds R09.89 ; Bronchitis J40 and Hyperlipidemia, unspecified hyperlipidemia type E78.5 [facility] [id number] [place] [address] 01807 -7398 Mar, URI, acute J06.9 [place] [id number] [place] [address] 90144- 8243 Mar, [facility] [id number] [place] [address] 02209- 5454 Mar, DM (diabetes mellitus) with complications E11.8 [facility] [id number] [place] [address] 95768- 3100 Mar, Other chronic pain G89.29 and Generalized anxiety disorder F41.1 [place] [id number] [place] [address] 95733- 4120 Feb, [facility] [id number] [place] [address] 37427- 6859 Feb, Mass of left lung R91.8 and Cervicalgia M54.2 [place] [id number] 60879- 2821 Feb, [facility] [address] 80746- 6972 Feb, [facility] [address] 02937 -1676 Feb, Cough R05 and Bronchitis J40 [facility] [address] 45915 -1703 07 Feb, 2017 Acute nasopharyngitis J00 and Bronchitis J40 [place] [address] 34398- 6388 06 Feb, 2017 Other chronic pain G89.29 and Generalized anxiety disorder F41.1 [place] [address] 69118- 5999 29 Jan, 2017 Encounter for immunization Z23 [facility] [address] 87343 -9194 25 Jan, 2017 [facility] [place] [address] 23104 -8484 18 Jan, 2017 [place] [address] 49699- 6225 16 Jan, 2017 Canker sores oral K12.0 [place] [address] 90328- 1759 14 Jan, 2017 [place] [address] 55700- 7298 07 Jan, 2017 Other chronic pain G89.29 and Generalized anxiety disorder F41.1 [facility] [address] 58507- 9559 06 Jan, 2017 Cough R05 and Bronchitis J40 [facility] [id number] [place] [address] 73330 -7049 Jan, Bronchitis J40 [facility] [address] 83893- 6010 Dec, Vitamin D deficiency E55.9 [facility] [address] 79121- 8569 Dec, DM (diabetes mellitus) with complications E11.8 [place] [address] 25341- 5093 Dec, DM (diabetes mellitus) with complications E11.8 and Vitamin D deficiency E55.9 [place] [address] 80037- 1465 Dec, DM (diabetes mellitus) with complications E11.8 ; Essential hypertension I10 ; Hyperlipidemia, unspecified hyperlipidemia type E78.5 ; Vitamin D deficiency E55.9 ; Gastroesophageal reflux disease, esophagitis presence not specified K21.9 ; 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 ; Other chronic pain G89.29 ; Encounter for immunization Z23 and Generalized anxiety disorder F41.1 [place] [address] 38880- 8369 12 Nov, 2016 History of CVA with residual deficit I69.30 [place] [address] 40145- 5496 11 Nov, 2016 DM (diabetes mellitus) with complications E11.8 [place] [id number] [place] [address] 36546- 1691 06 Nov, 2016 Left otitis media with effusion H65.92 ; Bronchitis J40 and Canker sores oral K12.0 [place] [address] 89105- 8957 Oct, [place] [address] 75309- 7477 Oct, DM (diabetes mellitus) with complications E11.8 [place] [id number] [place] [address] 94441- 4764 Oct, [facility] [id number] [place] [address] 22180- 1404 Sep, DM (diabetes mellitus) with complications E11.8 [place] [id number] [place] [address] 74488- 3702 Sep, DM (diabetes mellitus) with complications E11.8 ; Essential hypertension I10 ; Gastroesophageal reflux disease, esophagitis presence not specified K21.9 ; Hyperlipidemia, unspecified hyperlipidemia type E78.5 ; Tobacco abuse Z72.0 ; Vitamin D deficiency E55.9 ; History of CVA with residual deficit I69.30 and Seasonal allergic rhinitis due to pollen J30.1 [place] [id number] [place] [address] 19667- 1967 Sep, [address] 30288- 2510 Aug, [facility] [id number] [place] [address] 86846 -1963 Aug, Dysuria R30.0 ; Acute cystitis with hematuria N30.01 and Middle ear effusion, right H65.91 [place] [id number] [place] [address] 96893- 4084 Aug, Other complicated headache syndrome G44.59 [place] [id number] [place] [address] 91877- 8750 19 Aug, 2016 DM (diabetes mellitus) with complications E11.8 [place] [id number] [place] [address] 72760- 5341 14 Aug, 2016 Dysuria R30.0 [place] [id number] [place] [address] 18202- 9148 Aug, Dysuria R30.0 [facility] [id number] [place] [address] 64658- 1324 Aug, [place] [address] [place] [address]- 8721 July, [facility] [id number] [place] [address] 42236- 1228 July, [facility] [id number] [place] [address] 98617- 3170 July, DM (diabetes mellitus) with complications E11.8 [facility] [id number] [place] [address] 60441- 5716 July, Other complicated headache syndrome G44.59 [facility] [id number] [place] [address] 73556- 8482 July, [facility] [id number] [place] [address] 36509 -2378 July, Dysuria R30.0 and Acute cystitis with hematuria N30.01 [place] [id number] [place] [address] 84574- 3507 July, [facility] [id number] [place] [address] 21458- 9871 July, Other complicated headache syndrome G44.59 [facility] [id number] [place] [address] 60994 -3378 Jun, Exposure to strep throat Z20.818 and Acute upper respiratory infection, unspecified J06.9 [place] [id number] [place] [address] 94751- 1424 Jun, [facility] [id number] [place] [address] 26219- 1489 Jun, DM (diabetes mellitus) with complications E11.8 and Gastroesophageal reflux disease, esophagitis presence not specified K21.9 [facility] [id number] [place] [address] 26437- 7260 Jun, [facility] [id number] [place] [address] 60386- 4056 Jun, Dizziness R42 [facility] [address], [place] [address] Jun, [facility] [id number] [place] [address] 62519- 9687 Jun, [facility] [id number] [place] [address] 29473 -6076 May, Seasonal allergic rhinitis, unspecified allergic rhinitis trigger J30.2 [facility] [id number] [place] [address] 70065- 4281 May, [facility] [id number] [place] [address] 03628- 5884 May, DM (diabetes mellitus) with complications E11.8 [...] Seasonal allergic rhinitis due to pollen J30.1 [facility] [id number] [place] [address] 28807- 9012 May, Gastroesophageal reflux disease, esophagitis presence not specified K21.9 [facility] [id number] [place] [address] 59563- 5405 May, [facility] [id number] [place] [address] 07469- 9816 Apr, [facility] [id number] [place] [address] 85002- 6549 Apr, [facility] [id number] [place] [address] 85827- 1388 Mar, [facility] [id number] [place] [address] 85324- 1167 Mar, [facility] [id number] [place] [address] 29752- 1555 Mar, [facility] [address], [place] [address]- 1476 Mar, [place] [id number] [place] [address] 34678- 2186 Feb, [facility] [id number] [place] [address] 41751- 5902 Feb, [place] [id number] [place] [address] 46896- 4127 Feb, [place] [id number] [place] [address] 42234- 2809 Feb, Major depressive disorder, recurrent episode, moderate F33.1 ; Generalized anxiety disorder F41.1 ; Essential hypertension I10 ; DM ( diabetes mellitus) with complications E11.8 ; Hyperlipidemia, unspecified hyperlipidemia type E78.5 ; 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 and Gastroesophageal reflux disease, esophagitis presence not specified K21.9 [facility] [id number] [place] [address] 60881 -8119 Feb, Other viral agents as the cause of diseases classified elsewhere B97.89 and Acute upper respiratory infection, unspecified J06.9 [place] [address] [place] [address] 21500- 3033 Jan, [place] [id number] [place] [address] 24242- 2299 Jan, [facility] [id number] [place] [address] 74249 -0521 Jan, Acute bronchitis, unspecified organism J20.9 [place] [id number] [place] [address] 55866- 8796 Jan, [place] [id number] [place] [address] 67415- 4759 04 Jan, 2016 History of CVA with residual deficit I69.30 [place] [id number] [place] [address] 05813- 9000 Jan, [place] [address] [place] [address] 90670- 6237 Jan, Acute bronchitis, unspecified organism J20.9 [place] [id number] [place] [address] 64941- 3376 Jan, [place] [id number] [place] [address] 08543- 8813 Dec, History of CVA with residual deficit I69.30 [place] [address] [place] [address] 83205- 3549 Dec, [place] [id number] [place] [address] 76951- 9925 Dec, Other chronic pain G89.29 ; DM (diabetes mellitus) with complications E11.8 and History of CVA with residual deficit I69.30 [place] [id number] [place] [address] 32386- 2758 Nov, Major depressive disorder, recurrent episode, moderate F33.1 ; Irregular heart rhythm I49.9 ; Essential hypertension I10 ; History of CVA with residual deficit I69.30 ; DM (diabetes mellitus) with complications E11.8 ; Gastroesophageal reflux disease, esophagitis presence not specified K21.9 ; Hyperlipidemia, unspecified hyperlipidemia type E78.5 ; 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 ; Other chronic pain G89.29 and Generalized anxiety disorder F41.1 [place] [address] [place] [address] 12976- 9161 Oct, Generalized anxiety disorder F41.1 ; Major depressive disorder, recurrent episode, moderate F33.1 ; Essential hypertension I10 ; History of CVA with residual deficit I69.30 ; DM (diabetes mellitus) with complications E11.8 ; Gastroesophageal reflux disease, esophagitis presence not specified K21.9 ; Hyperlipidemia, unspecified hyperlipidemia type E78.5 ; Other chronic pain G89.29 and Bacterial conjunctivitis of left eye H10.9 [place] [id number] [place] [address] 00121- 7923 Sep, Chronic pain syndrome G89.4 and DM (diabetes mellitus) with complications E11.8 [place] [address] [place] [address] 65889- 5202 Sep, Irregular heart rhythm I49.9 ; Routine health maintenance Z00.00 ; Essential hypertension I10 ; History of CVA with residual deficit I69.30 ; Gastroesophageal reflux disease, esophagitis presence not specified K21.9 ; DM (diabetes mellitus) with complications E11.8 ; Hyperlipidemia, unspecified hyperlipidemia type E78.5 and Other complicated headache syndrome G44.59 [place] [address], [place] [address]- 6663 Jun, [place] [id number] [place] [address] 74473- 3777 Jun, [place] [id number] [place] [address] 26055- 8890 Aug, [place] [id number] [place] [address] 89653- 1281 Jun, IMMUNIZATIONS No Known Immunizations SOCIAL HISTORY Never Assessed REASON FOR VISIT PLAN OF CARE VITAL SIGNS MEDICATIONS Medication Instructions Dosage Frequency Start Date End Date Duration Status Macrobid 100 mg Orally every 12 hrs 1 capsule with food 12h Aug, Aug, 10 days Active Nystatin 428551 UNIT/GM Externally Twice a day apply thin layer to groin 12h Aug, Sep, 10 days Active Nystatin 718357 UNIT/GM Externally Twice a day apply thin layer to groin 12h Aug, Sep, 10 days Active RESULTS No Results PROCEDURES No Known procedures INSTRUCTIONS MEDICATIONS ADMINISTERED No Known Medications MEDICAL (GENERAL) HISTORY Type Description Date Medical History diabetes mellitus Medical History hyperlipidemia Medical History hypertension Medical History Anxiety disorder Medical History Blood Clotting Disorder- Dr Galvan at [facility] Medical History Possible Anemia (currently under work up) - Dr Galvan [facility] Medical History irregular heart beat-sees dr. hassan Medical History history of pancreatitis Medical History gerd Medical History History of CVA with residual deficit Medical History Other complicated headache syndrome Medical History Stokes syndrome Surgical History tubal ligation Surgical History section Surgical History cholecystectomy Surgical History Toe Nail Removal x2 Hospitalization History Brain Stem Strokes x5. Has been hospitalized at then transfered to [place]. 2014 Hospitalization History Child Hospitalization History abd pain and shakiness - [facility] ED visit [facility] Hospitalization History [facility] ED for URI 04/16/17 Hospitalization History via [facility] er 08/16/17
--- OUTSIDE RECORDS SUMMARY | 2017-11-24 21:35 | XMS REPORT ---
Author Author SOTERO HUIZAR Organization [facility] Address [address] [place] [address] Care Team Providers Care Main Line Assembler Name Role Phone HUIZARMICHAEL CoxELE Unavailable PROBLEMS Type Condition ICD9-CM Code IJV23-VH Code Onset Dates Condition Status SNOMED Code Problem Tobacco abuse Z72.0 Active 332334728 Problem Seasonal allergic rhinitis due to pollen J30.1 Active 50932624 Problem Tobacco abuse counseling Z71.6 Active 255247945 Problem Abnormal drug screen R89.2 Active 783304796 Problem Acute non intractable tension-type headache G44.209 Active 024887765 Problem retirement current use of insulin Z79.4 Active 178279830 Problem History of CVA with residual deficit I69.30 Active 211770160 Problem Chronic pain syndrome G89.4 Active 572585378 Problem Type 2 diabetes mellitus with hyperglycemia E11.65 Active 28272273 Problem Elevated liver enzymes R74.8 Active 515711126 Problem Generalized anxiety disorder F41.1 Active 27421131 Problem Vitamin D deficiency E55.9 Active 04669199 Problem Major depressive disorder, recurrent episode, moderate F33.1 Active 376022056 Problem Hyperlipidemia, unspecified hyperlipidemia type E78.5 Active 69930452 Problem Gastroesophageal reflux disease, esophagitis presence not specified K21.9 Active 463613835 Problem 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 Active 656424847 Problem Essential hypertension I10 Active 39106515 Problem DM (diabetes mellitus) with complications E11.8 Active 95059678 Problem Other chronic pain G89.29 Active 15454758 ALLERGIES No Information ENCOUNTERS Encounter Location Date Diagnosis [facility] [id number] [address] Oct, [facility] [id number] [address] Oct, [facility] [address] [place] [address] 73968 -9865 Oct, Dysuria R30.0 and Acute cystitis with hematuria N30.01 [facility] [id number] [place] [address] 29532- 5410 Oct, [facility] [id number] [place] [address] 34400- 2822 Oct, [facility] [id number] [place] [address] 23116- 9021 Oct, Controlled substance agreement broken Z91.14 ; Violation of controlled substance agreement Z91.14 ; Other chronic pain G89.29 and Generalized anxiety disorder F41.1 [place] [id number] [place] [address] 25559- 9781 Oct, [facility] [id number] [place] [address] 63331- 2994 Oct, [facility] [id number] [place] [address] 99019- 7335 Sep, Abscess L02.91 [facility] [id number] [place] [address] 47462- 6757 Sep, [facility] [id number] [place] [address] 75106- 8757 Sep, DM (diabetes mellitus) with complications E11.8 ; Generalized anxiety disorder F41.1 and Chronic pain syndrome G89.4 [place] [id number] [place] [address] 44911- 2937 Sep, Generalized anxiety disorder F41.1 ; Chronic pain syndrome G89.4 ; Abnormal drug screen R89.2 and Other chest pain R07.89 [facility] [id number] [place] [address] 87524- 8215 Aug, Dysuria R30.0 [facility] [id number] [place] [address] 71975- 9943 Aug, Generalized anxiety disorder F41.1 ; Chronic pain syndrome G89.4 and Dysuria R30.0 [facility] [address] [address] Aug, Acute cystitis with hematuria N30.01 and Candidal dermatitis B37.2 [facility] [address] [place] [address] 11485- 8648 Aug, Dysuria R30.0 [facility] [id number] [place] [address] 72004- 8189 Aug, [facility] [address] [place] [address] 28768 -2001 Aug, Dysuria R30.0 [facility] [id number] [place] [address] 34795- 0943 Aug, [facility] [id number] [place] [address] 71887- 8953 July, Cervicalgia M54.2 ; Acute non intractable tension-type headache G44.209 ; Type 2 diabetes mellitus with hyperglycemia E11.65 and 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.4 [place] [id number] [place] [address] 85723- 2387 July, Generalized anxiety disorder F41.1 and Chronic pain syndrome G89.4 [place] [id number] [place] [address] 41992- 4252 July, Abscess L02.91 [place] [id number] [place] [address] 03591- 0140 July, [place] [id number] [place] [address] 49068- 8455 July, [place] [id number] [place] [address] 90626- 0808 July, Type 2 diabetes mellitus with hyperglycemia E11.65 ; 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.4 ; Elevated [...] pain syndrome G89.4 and Vaginal candidiasis B37.3 [place] [address] 07398- 3801 Jun, Generalized anxiety disorder F41.1 and Other chronic pain G89.29 [place] [address] 89346- 3701 Jun, [place] [address] 52717- 3750 Jun, [place] [address] 82681- 2446 Jun, Abnormal levels of other serum enzymes R74.8 [place] [address] 91132- 1514 Jun, Abnormal levels of other serum enzymes R74.8 [place] [address] 08123- 4362 Jun, Elevated liver enzymes R74.8 [place] [address] 62769- 8163 Jun, Elevated liver enzymes R74.8 [place] [address] 55924- 0713 May, Right upper quadrant pain R10.11 ; Cervicalgia M54.2 and High risk medication use Z79.899 [place] [address] 12099- 2534 May, Generalized anxiety disorder F41.1 and Other chronic pain G89.29 [place] [address] 64672- 8242 May, Canker sores oral K12.0 [facility] [id number] [place] [address] 59524- 7243 May, Generalized anxiety disorder F41.1 and Other chronic pain G89.29 [facility] [id number] [place] [address] 74256- 4803 May, [facility] [address] 78737- 1582 Apr, [facility] [address] 12077 -6042 Apr, Acute cystitis with hematuria N30.01 and Dysuria R30.0 [place] [address] 92684- 6821 Apr, [place] [address] 73017- 6268 Apr, [facility] [address] 70277- 8742 Apr, DM (diabetes mellitus) with complications E11.8 [place] [address] 42478- 8896 Apr, DM (diabetes mellitus) with complications E11.8 [facility] [id number] [place] [address] 06205- 7547 Apr, [facility] [address] 53726- 0352 Apr, [facility] [id number] [place] [address] 49733- 1704 Apr, Other chronic pain G89.29 ; Generalized anxiety disorder F41.1 ; Cervicalgia M54.2 and Controlled substance agreement signed Z79.899 [facility] [id number] [place] [address] 34857 -9014 Mar, Abdominal pain R10.9 and Viral gastroenteritis A08.4 [place] [id number] [place] [address] 11778- 3987 Mar, [place] [address] 24375- 5190 Mar, [place] [id number] [place] [address] 98102- 6553 Mar, DM (diabetes mellitus) with complications E11.8 [...] not specified K21.9 and 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 [address] [id number] [place] [address] 85046- 5807 Mar, [place] [id number] [place] [address] 25167- 6497 Mar, DM (diabetes mellitus) with complications E11.8 ; Abnormal lung sounds R09.89 ; Bronchitis J40 and Hyperlipidemia, unspecified hyperlipidemia type E78.5 [facility] [id number] [place] [address] 79556 -7349 Mar, URI, acute J06.9 [place] [id number] [place] [address] 73158- 9038 Mar, [place] [id number] [place] [address] 56007- 9587 Mar, DM (diabetes mellitus) with complications E11.8 [place] [id number] [place] [address] 44904- 0714 Mar, Other chronic pain G89.29 and Generalized anxiety disorder F41.1 [place] [id number] [place] [address] 58750- 6078 Feb, [facility] [id number] [place] [address] 30396- 1573 Feb, Mass of left lung R91.8 and Cervicalgia M54.2 [place] [address] 58115- 4289 Feb, [facility] [address] 31514- 3037 Feb, [facility] [address] 45280 -9837 Feb, Cough R05 and Bronchitis J40 [facility] [address] 13224 -6311 07 Feb, 2017 Acute nasopharyngitis J00 and Bronchitis J40 [address] [address] 04961- 8421 06 Feb, 2017 Other chronic pain G89.29 and Generalized anxiety disorder F41.1 [place] [address] 56154- 5562 29 Jan, 2017 Encounter for immunization Z23 [facility] [address] 06833 -3276 25 Jan, 2017 [facility] [place] [address] 31783 -0963 18 Jan, 2017 [place] [address] 32866- 9046 16 Jan, 2017 Canker sores oral K12.0 [place] [address] 96319- 5462 14 Jan, 2017 [place] [address] 54875- 4571 07 Jan, 2017 Other chronic pain G89.29 and Generalized anxiety disorder F41.1 [facility] [address] 80809- 7643 06 Jan, 2017 Cough R05 and Bronchitis J40 [facility] [id number] [place] [address] 56749 -2034 Jan, Bronchitis J40 [facility] [address] 51355- 5009 Dec, Vitamin D deficiency E55.9 [facility] [address] 37409- 9174 Dec, DM (diabetes mellitus) with complications E11.8 [place] [address] 72969- 8758 Dec, DM (diabetes mellitus) with complications E11.8 and Vitamin D deficiency E55.9 [place] [address] 80055- 3183 Dec, DM (diabetes mellitus) with complications E11.8 ; Essential hypertension I10 ; Hyperlipidemia, unspecified hyperlipidemia type E78.5 ; Vitamin D deficiency E55.9 ; Gastroesophageal reflux disease, esophagitis presence not specified K21.9 ; 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 ; Other chronic pain G89.29 ; Encounter for immunization Z23 and Generalized anxiety disorder F41.1 [address] 48398- 9561 12 Nov, 2016 History of CVA with residual deficit I69.30 [place] [address] 07877- 8116 11 Nov, 2016 DM (diabetes mellitus) with complications E11.8 [place] [id number] [place] [address] 15204- 4990 06 Nov, 2016 Left otitis media with effusion H65.92 ; Bronchitis J40 and Canker sores oral K12.0 [place] [address] 09522- 0917 Oct, [place] [address] 73458- 4555 Oct, DM (diabetes mellitus) with complications E11.8 [place] [id number] [place] [address] 78401- 2868 Oct, [facility] [id number] [place] [address] 90042- 9935 Sep, DM (diabetes mellitus) with complications E11.8 [place] [id number] [place] [address] 59635- 8523 Sep, DM (diabetes mellitus) with complications E11.8 ; Essential hypertension I10 ; Gastroesophageal reflux disease, esophagitis presence not specified K21.9 ; Hyperlipidemia, unspecified hyperlipidemia type E78.5 ; Tobacco abuse Z72.0 ; Vitamin D deficiency E55.9 ; History of CVA with residual deficit I69.30 and Seasonal allergic rhinitis due to pollen J30.1 [place] [id number] [place] [address] 60200- 3388 Sep, [address] 23505- 7379 Aug, [facility] [id number] [place] [address] 88424 -7005 Aug, Dysuria R30.0 ; Acute cystitis with hematuria N30.01 and Middle ear effusion, right H65.91 [place] [address] [place] [address] 57277- 9984 Aug, Other complicated headache syndrome G44.59 [place] [address] [place] [address] 37098- 6729 19 Aug, 2016 DM (diabetes mellitus) with complications E11.8 [place] [id number] [place] [address] 91611- 3184 14 Aug, 2016 Dysuria R30.0 [place] [id number] [place] [address] 63616- 3816 Aug, Dysuria R30.0 [facility] [id number] [place] [address] 72071- 3070 Aug, [place] [address] [place] [address]- 4895 July, [facility] [id number] [place] [address] 05422- 1255 July, [facility] [id number] [place] [address] 44333- 6768 July, DM (diabetes mellitus) with complications E11.8 [facility] [id number] [place] [address] 75260- 9410 July, Other complicated headache syndrome G44.59 [facility] [id number] [place] [address] 16747- 7244 July, [facility] [id number] [place] [address] 78583 -4311 July, Dysuria R30.0 and Acute cystitis with hematuria N30.01 [place] [address] [place] [address] 66318- 6366 July, [facility] [id number] [place] [address] 15527- 8216 July, Other complicated headache syndrome G44.59 [facility] [address] [place] [address] 96473 -4813 Jun, Exposure to strep throat Z20.818 and Acute upper respiratory infection, unspecified J06.9 [place] [address] [place] [address] 39163- 7649 Jun, [facility] [id number] [place] [address] 39399- 2775 Jun, DM (diabetes mellitus) with complications E11.8 and Gastroesophageal reflux disease, esophagitis presence not specified K21.9 [facility] [address] [place] [address] 44570- 5911 Jun, [facility] [address] [place] [address] 14240- 7563 Jun, Dizziness R42 [facility] [address], [place] [address] Jun, [facility] [id number] [place] [address] 94201- 9153 Jun, [facility] [id number] [place] [address] 31599 -3682 May, Seasonal allergic rhinitis, unspecified allergic rhinitis trigger J30.2 [facility] [id number] [place] [address] 23571- 3803 May, [facility] [id number] [place] [address] 88400- 6151 May, DM (diabetes mellitus) with complications E11.8 [...] Seasonal allergic rhinitis due to pollen J30.1 [facility] [address] [place] [address] 50525- 8803 May, Gastroesophageal reflux disease, esophagitis presence not specified K21.9 [facility] [address] [place] [address] 28207- 1510 May, [facility] [id number] [place] [address] 21919- 6355 Apr, [facility] [id number] [place] [address] 82611- 6096 Apr, [facility] [id number] [place] [address] 94214- 8140 Mar, [facility] [id number] [place] [address] 28296- 6219 Mar, [facility] [id number] [place] [address] 69697- 1274 Mar, [facility] [address] [place] [address]- 8613 Mar, [place] [id number] [place] [address] 47693- 4295 Feb, [facility] [id number] [place] [address] 56417- 0113 Feb, [place] [id number] [place] [address] 88306- 2652 Feb, [place] [address] [place] [address] 96049- 5008 Feb, Major depressive disorder, recurrent episode, moderate F33.1 ; Generalized anxiety disorder F41.1 ; Essential hypertension I10 ; DM ( diabetes mellitus) with complications E11.8 ; Hyperlipidemia, unspecified hyperlipidemia type E78.5 ; 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 and Gastroesophageal reflux disease, esophagitis presence not specified K21.9 [facility] [address] [place] [address] 12641 -4134 Feb, Other viral agents as the cause of diseases classified elsewhere B97.89 and Acute upper respiratory infection, unspecified J06.9 [place] [address] [place] [address] 67693- 2268 Jan, [place] [address] [place] [address] 14548- 6113 Jan, [facility] [address] [place] [address] 87001 -3571 Jan, Acute bronchitis, unspecified organism J20.9 [place] [id number] [place] [address] 51365- 1242 Jan, [place] [address] [place] [address] 70232- 4291 04 Jan, 2016 History of CVA with residual deficit I69.30 [place] [id number] [place] [address] 42882- 6363 Jan, [place] [address] [place] [address] 33832- 2716 Jan, Acute bronchitis, unspecified organism J20.9 [place] [address] [place] [address] 72856- 9608 Jan, [place] [id number] [place] [address] 31337- 7922 Dec, History of CVA with residual deficit I69.30 [place] [address] [place] [address] 71479- 5865 Dec, [place] [id number] [place] [address] 94787- 9799 Dec, Other chronic pain G89.29 ; DM (diabetes mellitus) with complications E11.8 and History of CVA with residual deficit I69.30 [place] [address] [place] [address] 35090- 5271 Nov, Major depressive disorder, recurrent episode, moderate F33.1 ; Irregular heart rhythm I49.9 ; Essential hypertension I10 ; History of CVA with residual deficit I69.30 ; DM (diabetes mellitus) with complications E11.8 ; Gastroesophageal reflux disease, esophagitis presence not specified K21.9 ; Hyperlipidemia, unspecified hyperlipidemia type E78.5 ; 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 ; Other chronic pain G89.29 and Generalized anxiety disorder F41.1 [place] [address] [place] [address] 72537- 1005 Oct, Generalized anxiety disorder F41.1 ; Major depressive disorder, recurrent episode, moderate F33.1 ; Essential hypertension I10 ; History of CVA with residual deficit I69.30 ; DM (diabetes mellitus) with complications E11.8 ; Gastroesophageal reflux disease, esophagitis presence not specified K21.9 ; Hyperlipidemia, unspecified hyperlipidemia type E78.5 ; Other chronic pain G89.29 and Bacterial conjunctivitis of left eye H10.9 [place] [address] [place] [address] 92335- 9065 Sep, Chronic pain syndrome G89.4 and DM (diabetes mellitus) with complications E11.8 [place] [address] [place] [address] 33238- 2538 Sep, Irregular heart rhythm I49.9 ; Routine health maintenance Z00.00 ; Essential hypertension I10 ; History of CVA with residual deficit I69.30 ; Gastroesophageal reflux disease, esophagitis presence not specified K21.9 ; DM (diabetes mellitus) with complications E11.8 ; Hyperlipidemia, unspecified hyperlipidemia type E78.5 and Other complicated headache syndrome G44.59 [place] [address] [place] [address] 33671- 8282 Jun, [place] [id number] [place] [address] 70741- 0753 Jun, [place] [id number] [place] [address] 64836- 1735 Aug, [place] [id number] [place] [address] 06515- 8690 Jun, IMMUNIZATIONS No Known Immunizations SOCIAL HISTORY Never Assessed REASON FOR VISIT Controlled Med Refill 09/08 PLAN OF CARE VITAL SIGNS MEDICATIONS Medication Instructions Dosage Frequency Start Date End Date Duration Status Hydrocodone-Acetaminophen 10-325 MG Orally every 6 hrs 1 tablet as needed 6h Aug, 28 days Active Xanax 1 MG Orally [...] Has been hospitalized at then transfered to [facility] 2014 Hospitalization History Child Hospitalization History abd pain and shakiness - [facility] ED visit [facility] Hospitalization History [facility] ED for URI 04/16/17 Hospitalization History via [facility] 08/16/17
--- OUTSIDE RECORDS SUMMARY | 2017-11-24 21:36 | XMS REPORT ---
Author Author SOTERO HUIZAR Organization [facility] Address [address] [place] [address] Care Team Providers Care Classroom Monitor Name Role Phone HUIZARMICHAEL CoxELE Unavailable PROBLEMS Type Condition ICD9-CM Code CPM82-BJ Code Onset Dates Condition Status SNOMED Code Problem Tobacco abuse Z72.0 Active 827673503 Problem Seasonal allergic rhinitis due to pollen J30.1 Active 31151745 Problem Tobacco abuse counseling Z71.6 Active 396606129 Problem Abnormal drug screen R89.2 Active 555334734 Problem Acute non intractable tension-type headache G44.209 Active 806401195 Problem senior care current use of insulin Z79.4 Active 654694121 Problem History of CVA with residual deficit I69.30 Active 968490452 Problem Chronic pain syndrome G89.4 Active 770631746 Problem Type 2 diabetes mellitus with hyperglycemia E11.65 Active 40739669 Problem Elevated liver enzymes R74.8 Active 992755611 Problem Generalized anxiety disorder F41.1 Active 72459517 Problem Vitamin D deficiency E55.9 Active 02304532 Problem Major depressive disorder, recurrent episode, moderate F33.1 Active 358210516 Problem Hyperlipidemia, unspecified hyperlipidemia type E78.5 Active 84064263 Problem Gastroesophageal reflux disease, esophagitis presence not specified K21.9 Active 166389303 Problem 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 Active 517000555 Problem Essential hypertension I10 Active 58620138 Problem DM (diabetes mellitus) with complications E11.8 Active 53654469 Problem Other chronic pain G89.29 Active 98683613 ALLERGIES No Information ENCOUNTERS Encounter Location Date Diagnosis [facility] [id number], [place] [address] Oct, [facility] [id number], [place] [address] Oct, [facility] [id number] [place] [address] 21792 -6628 Oct, Dysuria R30.0 and Acute cystitis with hematuria N30.01 [facility] [id number] [place] [address] 55661- 8393 Oct, [facility] [id number] [place] [address] 60822- 7097 Oct, [facility] [id number] [place] [address] 15943- 9905 Oct, Controlled substance agreement broken Z91.14 ; Violation of controlled substance agreement Z91.14 ; Other chronic pain G89.29 and Generalized anxiety disorder F41.1 [place] [id number] [place] [address] 39158- 8735 Oct, [facility] [id number] [place] [address] 55090- 1074 Oct, [facility] [id number] [place] [address] 57299- 9811 Sep, Abs[address] L02.91 [facility] [id number] [place] [address] 02609- 7198 Sep, [facility] [id number] [place] [address] 31545- 1389 Sep, DM (diabetes mellitus) with complications E11.8 ; Generalized anxiety disorder F41.1 and Chronic pain syndrome G89.4 [address] [id number] [place] [address] 41019- 6396 Sep, Generalized anxiety disorder F41.1 ; Chronic pain syndrome G89.4 ; Abnormal drug screen R89.2 and Other chest pain R07.89 [facility] [id number] [place] [address] 18929- 7528 Aug, D[address]uria R30.0 [facility] [id number] [place] [address] 61766- 1340 Aug, Generalized anxiety disorder F41.1 ; Chronic pain syndrome G89.[address] [facility] [address], [place] [address] Aug, Acute cystitis with hematuria N30.01 and Candidal dermatitis B37.2 [facility] [address] [place] [address] 31138- 1551 Aug, D[address]uria R30.0 [facility] [id number] [place] [address] 73910- 2561 Aug, [facility] [id number] [place] [address] 90586 -3705 Aug, Dysuria R30.0 [facility] [id number] [place] [address] 74805- 9311 Aug, [facility] [id number] [place] [address] 45906- 0780 July, Cervicalgia M54.2 ; Acute non intractable tension-type headache G44.209 ; Type 2 diabetes mellitus with hyperglycemia E11.65 and terminal gauger current use of insulin Z79.4 [address] [id number] [place] [address] 06320- 0895 July, Generalized anxiety disorder F41.1 and Chronic pain syndrome G89.4 [place] [id number] [place] [address] 89655- 2054 July, Abscess L02.91 [place] [id number] [place] [address] 36091- 3302 July, [id number] [place] [address] 79500- 2155 July, [place] [id number] [place] [address] 66341- 1227 July, Type 2 diabetes mellitus with hyperglycemia E11.65 ; terminal gauger current use of insulin Z79.4 ; Elevated [...] G89.4 and Vaginal candidiasis B37.3 [address] [address] [address] 14272- 4713 Jun, Generalized anxiety disorder F41.1 and Other chronic pain G89.29 [place] [address] 77183- 0891 Jun, [place] [address] 50035- 2855 Jun, [place] [address] 77511- 1177 Jun, Abnormal levels of other serum enzymes R74.8 [place] [address] 43197- 6219 Jun, Abnormal levels of other serum enzymes R74.8 [place] [address] 20814- 4268 Jun, Elevated liver enzymes R74.8 [place] [address] 00477- 7336 Jun, Elevated liver enzymes R74.8 [place] [address] 78300- 1107 May, Right upper quadrant pain R10.11 ; Cervicalgia M54.2 and High risk medication use Z79.899 [address] [address] [address] 79585- 7493 May, Generalized anxiety disorder F41.1 and Other chronic pain G89.29 [address] [address] 21691- 5553 May, Canker sores oral K12.0 [facility] [id number] [place] [address] 27298- 0014 May, Generalized anxiety disorder F41.1 and Other chronic pain G89.29 [facility] [id number] [place] [address] 50577- 1125 May, [facility] [address] 78900- 6098 Apr, [facility] [address] 80865 -7858 Apr, Acute cystitis with hematuria N30.01 and Dysuria R30.0 [address] [address] 08835- 7189 Apr, [place] [address] 95075- 0945 Apr, [facility] [address] 85728- 6887 Apr, DM (diabetes mellitus) with complications E11.8 [address] [address] 95655- 4833 Apr, DM (diabetes mellitus) with complications E11.8 [facility] [id number] [place] [address] 67998- 6894 Apr, [facility] [address] 28121- 6895 Apr, [facility] [id number] [place] [address] 36967- 1801 Apr, Other chronic pain G89.29 ; Generalized anxiety disorder F41.1 ; Cervicalgia M54.2 and Controlled substance agreement signed Z79.899 [facility] [id number] [place] [address] 12867 -9022 Mar, Abdominal pain R10.9 and Viral gastroenteritis A08.4 [place] [id number] [place] [address] 95033- 5028 Mar, [place] [address] 78197- 1985 Mar, [place] [id number] [place] [address] 09082- 6379 Mar, DM (diabetes mellitus) with complications E11.8 [...] not specified K21.9 and 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 [address] [id number] [place] [address] 14221- 7866 Mar, [address] [id number] [place] [address] 92506- 4077 Mar, DM (diabetes mellitus) with complications E11.8 ; Abnormal lung sounds R09.89 ; Bronchitis J40 and Hyperlipidemia, unspecified hyperlipidemia type E78.5 [facility] [id number] [place] [address] 78335 -0574 Mar, URI, acute J06.9 [place] [id number] [place] [address] 41219- 8686 Mar, [place] [id number] [place] [address] 68684- 2486 Mar, DM (diabetes mellitus) with complications E11.8 [place] [id number] [place] [address] 33276- 8303 Mar, Other chronic pain G89.29 and Generalized anxiety disorder F41.1 [address] [id number] [place] [address] 55022- 0407 Feb, [facility] [id number] [place] [address] 83905- 9544 Feb, Mass of left lung R91.8 and Cervicalgia M54.2 [place] [address] 31402- 9051 Feb, [facility] [address] 38968- 8772 Feb, [facility] [address] 28068 -5755 Feb, Cough R05 and Bronchitis J40 [facility] [address] 20060 -8901 07 Feb, 2017 Acute nasopharyngitis J00 and Bronchitis J40 [address] 63753- 9144 06 Feb, 2017 Other chronic pain G89.29 and Generalized anxiety disorder F41.1 [address] [address] [address] 91140- 5757 29 Jan, 2017 Encounter for immunization Z23 [facility] [address] 51747 -3308 25 Jan, 2017 [facility] [place] [address] 73204 -6825 18 Jan, 2017 [address] [place] 97139- 3111 16 Jan, 2017 Canker sores oral K12.0 [place] [address] 32810- 4760 14 Jan, 2017 [address] [address] 85974- 2822 07 Jan, 2017 Other chronic pain G89.29 and Generalized anxiety disorder F41.1 [facility] [address] 98196- 8856 06 Jan, 2017 Cough R05 and Bronchitis J40 [facility] [id number] [place] [address] 98093 -4046 Jan, Bronchitis J40 [facility] [address] 87133- 0035 Dec, Vitamin D deficiency E55.9 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 ; Other chronic pain G89.29 ; Encounter for immunization Z23 and Generalized anxiety disorder F41.1 [address] 68158- 0625 12 Nov, 2016 History of CVA with residual deficit I69.30 [address] 06761- 8715 11 Nov, 2016 DM (diabetes mellitus) with complications E11.8 [place] [id number] [place] [address] 36700- 3351 06 Nov, 2016 Left otitis media with effusion H65.92 ; Bronchitis J40 and Canker sores oral K12.0 [address] [address] 13572- 8065 Oct, [address] [address] 21512- 3249 Oct, DM (diabetes mellitus) with complications E11.8 [place] [id number] [place] [address] 87857- 6341 Oct, [facility] [id number] [place] [address] 57204- 2979 Sep, DM (diabetes mellitus) with complications E11.8 [address] [id number] [place] [address] 43511- 3397 Sep, DM (diabetes mellitus) with complications E11.8 ; Essential hypertension I10 ; Gastroesophageal reflux disease, esophagitis presence not specified K21.9 ; Hyperlipidemia, unspecified hyperlipidemia type E78.5 ; Tobacco abuse Z72.0 ; Vitamin D deficiency E55.9 ; History of CVA with residual deficit I69.30 and Seasonal allergic rhinitis due to pollen J30.1 [id number] [place] [address] 26308- 6766 Sep, [address] 91787- 1104 Aug, [facility] [id number] [place] [address] 26860 -0403 Aug, Dysuria R30.0 ; Acute cystitis with hematuria N30.01 and Middle ear effusion, right H65.91 [place] [id number] [place] [address] 54006- 7010 Aug, Other complicated headache syndrome G44.59 [place] [id number] [place] [address] 07503- 2254 19 Aug, 2016 DM (diabetes mellitus) with complications E11.8 [place] [id number] [place] [address] 32458- 9584 14 Aug, 2016 Dysuria R30.0 [place] [id number] [place] [address] 47571- 0492 Aug, D[address]30.0 [facility] [id number] [place] [address] 01545- 1180 Aug, [address] [place] [address]- 06[address] July, [facility] [id number] [place] [address] 93870- 3783 July, [facility] [id number] [place] [address] 58264- 7822 July, DM (diabetes mellitus) with complications E11.8 [facility] [id number] [place] [address] 96207- 6545 July, Other complicated headache syndrome G44.59 [facility] [id number] [place] [address] 94810- 0269 July, [facility] [id number] [place] [address] 95626 -9902 July, Dysuria R30.0 and Acute cystitis with hematuria N30.01 [place] [id number] [place] [address] 12145- 7937 July, [facility] [id number] [place] [address] 76129- 8533 July, Other complicated headache syndrome G44.59 [facility] [id number] [place] [address] 16569 -9913 Jun, Exposure to strep throat Z20.818 and Acute upper respiratory infection, unspecified J06.9 [place] [id number] [place] [address] 42668- 3350 Jun, [facility] [id number] [place] [address] 32172- 3096 Jun, DM (diabetes mellitus) with complications E11.8 and Gastroesophageal reflux disease, esophagitis presence not specified K21.9 [facility] [address] [place] [address] 36459- 6901 Jun, [facility] [address] [place] [address] 70317- 3564 Jun, Dizziness R42 [facility] [address], [place] [address] Jun, [facility] [id number] [place] [address] 47363- 5502 Jun, [facility] [id number] [place] [address] 17965 -5684 May, Seasonal allergic rhinitis, unspecified allergic rhinitis trigger J30.2 [facility] [id number] [place] [address] 52277- 2580 May, [facility] [id number] [place] [address] 09638- 6473 May, DM (diabetes mellitus) with complications E11.8 [...] Seasonal allergic rhinitis due to pollen J30.1 [facility] [id number] [place] [address] 50310- 9811 May, Gastroesophageal reflux disease, esophagitis presence not specified K21.9 [facility] [id number] [place] [address] 83098- 3418 May, [facility] [id number] [place] [address] 13748- 3083 Apr, [facility] [id number] [place] [address] 29236- 3553 Apr, [facility] [id number] [place] [address] 92651- 3170 Mar, [facility] [id number] [place] [address] 38962- 5002 Mar, [facility] [id number] [place] [address] 54075- 5273 Mar, [facility] [address], [place] [address]- 3942 Mar, [place] [id number] [place] [address] 74708- 8260 Feb, 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 and Gastroesophageal reflux disease, esophagitis presence not specified K21.9 [facility] [address] [place] [address] 09165 -3297 Feb, Other viral agents as the cause of diseases classified elsewhere B97.89 and Acute upper respiratory infection, unspecified J06.9 [place] [address] [place] [address] 58391- 9776 Jan, [place] [address] [place] [address] 70321- 2242 Jan, [facility] [address] [place] [address] 10391 -8599 Jan, Acute bronchitis, unspecified organism J20.9 [place] [id number] [place] [address] 55338- 6886 Jan, [place] [id number] [place] [address] 67287- 8409 04 Jan, 2016 History of CVA with residual deficit I69.30 [place] [id number] [place] [address] 25569- 9231 Jan, [place] [address] [place] [address] 98539- 5824 Jan, Acute bronchitis, unspecified organism J20.9 [place] [address] [place] [address] 43077- 1836 Jan, [place] [id number] [place] [address] 71736- 0609 Dec, History of CVA with residual deficit I69.30 [place] [address] [place] [address] 90491- 4921 Dec, [place] [id number] [place] [address] 17764- 8246 Dec, Other chronic pain G89.29 ; DM (diabetes mellitus) with complications E11.8 and History of CVA with residual deficit I69.30 [place] [address] [place] [address] 50045- 9132 Nov, Major depressive disorder, recurrent episode, moderate F33.1 ; Irregular heart rhythm I49.9 ; Essential hypertension I10 ; History of CVA with residual deficit I69.30 ; DM (diabetes mellitus) with complications E11.8 ; Gastroesophageal reflux disease, esophagitis presence not specified K21.9 ; Hyperlipidemia, unspecified hyperlipidemia type E78.5 ; 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 ; Other chronic pain G89.29 and Generalized anxiety disorder F41.1 [place] [address] [place] [address] 07974- 7652 Oct, Generalized anxiety disorder F41.1 ; Major depressive disorder, recurrent episode, moderate F33.1 ; Essential hypertension I10 ; History of CVA with residual deficit I69.30 ; DM (diabetes mellitus) with complications E11.8 ; Gastroesophageal reflux disease, esophagitis presence not specified K21.9 ; Hyperlipidemia, unspecified hyperlipidemia type E78.5 ; Other chronic pain G89.29 and Bacterial conjunctivitis of left eye H10.9 [place] [address] [place] [address] 40920- 9979 Sep, Chronic pain syndrome G89.4 and DM (diabetes mellitus) with complications E11.8 [place] [address] [place] [address] 11967- 4454 Sep, Irregular heart rhythm I49.9 ; Routine health maintenance Z00.00 ; Essential hypertension I10 ; History of CVA with residual deficit I69.30 ; Gastroesophageal reflux disease, esophagitis presence not specified K21.9 ; DM (diabetes mellitus) with complications E11.8 ; Hyperlipidemia, unspecified hyperlipidemia type E78.5 and Other complicated headache syndrome G44.59 [place] [address] [id number] [place] [address] 80628- 7182 Jun, [place] [address] [id number] [place] [address] 50375- 9695 Jun, [place] [id number] [place] [address] 01398- 9073 Aug, [place] [id number] [place] [address] 97379- 9925 Jun, IMMUNIZATIONS No Known Immunizations SOCIAL HISTORY [...] Blood Clotting Disorder- Dr Galvan at [facility] Medical History Possible Anemia (currently under work up) - Dr Galvan [facility] Medical History irregular heart beat-sees dr. hassan Medical History history of pancreatitis Medical History gerd Medical History History of CVA with residual deficit Medical History Other complicated headache syndrome Medical History Stokes syndrome Surgical History tubal ligation Surgical History section Surgical History cholecystectomy Surgical History Toe Nail Removal x2 Hospitalization History Brain Stem Strokes x5. Has been hospitalized at then transfered to [facility]. 2014 Hospitalization History Child Hospitalization History abd pain and shakiness - [facility] visit [facility] Hospitalization History [facility] for URI 04/16/17 Hospitalization History via [facility] [place] [facility] 08[facility]16/17
--- OUTSIDE RECORDS SUMMARY | 2017-11-24 21:36 | XMS REPORT ---
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 Name Role Phone HUIZARMICHAEL CoxELE Unavailable PROBLEMS Type Condition ICD9-CM Code VRF87-PL Code Onset Dates Condition Status SNOMED Code Problem Tobacco abuse Z72.0 Active 711210831 Problem Seasonal allergic rhinitis due to pollen J30.1 Active 82642764 Problem Tobacco abuse counseling Z71.6 Active 819077203 Problem Abnormal drug screen R89.2 Active 646121944 Problem Acute non intractable tension-type headache G44.209 Active 670103805 Problem half-way current use of insulin Z79.4 Active 972527137 Problem History of CVA with residual deficit I69.30 Active 941085941 Problem Chronic pain syndrome G89.4 Active 190932293 Problem Type 2 diabetes mellitus with hyperglycemia E11.65 Active 26634563 Problem Elevated liver enzymes R74.8 Active 177072730 Problem Generalized anxiety disorder F41.1 Active 56147132 Problem Vitamin D deficiency E55.9 Active 66025044 Problem Major depressive disorder, recurrent episode, moderate F33.1 Active 712091136 Problem Hyperlipidemia, unspecified hyperlipidemia type E78.5 Active 39813663 Problem Gastroesophageal reflux disease, esophagitis presence not specified K21.9 Active 072340605 Problem 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 Active 360701155 Problem Essential hypertension I10 Active 97930550 Problem DM (diabetes mellitus) with complications E11.8 Active 87494252 Problem Other chronic pain G89.29 Active 67449675 ALLERGIES No Information ENCOUNTERS Encounter Location Date Diagnosis [facility] [id number] [address] Oct, [facility] [id number], [place] [address] Oct, [facility] [id number] [place] [address] 84237 -1495 Oct, Dysuria R30.0 and Acute cystitis with hematuria N30.01 [facility] [id number] [place] [address] 15622- 6656 Oct, [facility] [id number] [place] [address] 93062- 4674 Oct, [facility] [id number] [place] [address] 97496- 7923 Oct, Controlled substance agreement broken Z91.14 ; Violation of controlled substance agreement Z91.14 ; Other chronic pain G89.29 and Generalized anxiety disorder F41.1 [place] [id number] [place] [address] 79346- 4622 Oct, [facility] [id number] [place] [address] 92149- 0137 Oct, [facility] [id number] [place] [address] 97912- 8383 Sep, Abscess L02.91 [facility] [id number] [place] [address] 65812- 0844 Sep, [facility] [id number] [place] [address] 69292- 8175 Sep, DM (diabetes mellitus) with complications E11.8 ; Generalized anxiety disorder F41.1 and Chronic pain syndrome G89.4 [place] [id number] [place] [address] 07039- 3807 Sep, Generalized anxiety disorder F41.1 ; Chronic pain syndrome G89.4 ; Abnormal drug screen R89.2 and Other chest pain R07.89 [facility] [id number] [place] [address] 17179- 4077 Aug, Dysuria R30.0 [facility] [id number] [place] [address] 13297- 1043 Aug, Generalized anxiety disorder F41.1 ; Chronic pain syndrome G89.4 and Dysuria R30.0 [facility] [id number], [place] [address] Aug, Acute cystitis with hematuria N30.01 and Candidal dermatitis B37.2 [facility] [id number] [place] [address] 65124- 4463 Aug, Dysuria R30.0 [facility] [id number] [place] [address] 95142- 4835 Aug, [facility] [id number] [place] [address] 74835 -4587 Aug, Dysuria R30.0 [facility] [id number] [place] [address] 92507- 7190 Aug, [facility] [id number] [place] [address] 38509- 7159 July, Cervicalgia M54.2 ; Acute non intractable tension-type headache G44.209 ; Type 2 diabetes mellitus with hyperglycemia E11.65 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 [place] [id number] [place] [address] 09875- 3529 July, Generalized anxiety disorder F41.1 and Chronic pain syndrome G89.4 [place] [id number] [place] [address] 06326- 6557 July, Abscess L02.91 [place] [id number] [place] [address] 28796- 4902 July, [place] [id number] [place] [address] 52879- 2412 July, [place] [id number] [place] [address] 45526- 1964 July, Type 2 diabetes mellitus with hyperglycemia E11.65 ; [employer] current use of insulin Z79.4 ; Elevated [...] pain syndrome G89.4 and Vaginal candidiasis B37.3 [place] [address] 13457- 3717 Jun, Generalized anxiety disorder F41.1 and Other chronic pain G89.29 [place] [address] 15117- 3008 Jun, [place] [address] 65983- 4969 Jun, [place] [address] 84858- 3791 Jun, Abnormal levels of other serum enzymes R74.8 [place] [address] 18135- 8626 Jun, Abnormal levels of other serum enzymes R74.8 [place] [address] 07556- 1169 Jun, Elevated liver enzymes R74.8 [place] [address] 50276- 8520 Jun, Elevated liver enzymes R74.8 [place] [address] 87687- 4548 May, Right upper quadrant pain R10.11 ; Cervicalgia M54.2 and High risk medication use Z79.899 [place] [address] 11905- 4394 May, Generalized anxiety disorder F41.1 and Other chronic pain G89.29 [place] [address] 76123- 6632 May, Canker sores oral K12.0 [facility] [id number] [place] [address] 03794- 7126 May, Generalized anxiety disorder F41.1 and Other chronic pain G89.29 [facility] [id number] [place] [address] 94497- 8533 May, [facility] [address] 00046- 7514 Apr, [facility] [address] 82106 -7874 Apr, Acute cystitis with hematuria N30.01 and Dysuria R30.0 [place] [address] 78037- 3238 Apr, [place] [address] 01253- 9681 Apr, [facility] [address] 21259- 3288 Apr, DM (diabetes mellitus) with complications E11.8 [place] [address] 89142- 6237 Apr, DM (diabetes mellitus) with complications E11.8 [facility] [id number] [place] [address] 20932- 6522 Apr, [facility] [address] 07759- 7358 Apr, [facility] [id number] [place] [address] 00592- 1537 Apr, Other chronic pain G89.29 ; Generalized anxiety disorder F41.1 ; Cervicalgia M54.2 and Controlled substance agreement signed Z79.899 [facility] [id number] [place] [address] 48555 -2496 Mar, Abdominal pain R10.9 and Viral gastroenteritis A08.4 [place] [id number] [place] [address] 26326- 5863 Mar, [place] [address] 70110- 4024 Mar, [place] [id number] [place] [address] 08728- 1062 Mar, DM (diabetes mellitus) with complications E11.8 ; Type 2 diabetes mellitus with hyperglycemia E11.65 ; half-way current use of insulin Z79.4 ; Essential hypertension I10 ; Bronchitis J40 ; Major depressive disorder , recurrent episode, moderate F33.1 ; Hyperlipidemia, unspecified hyperlipidemia type E78.5 ; Tobacco abuse Z72.0 ; Tobacco abuse counseling Z71.6 ; History of CVA with residual deficit I69.30 ; Gastroesophageal reflux disease, esophagitis presence not specified K21.9 and 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 [id number] [place] [address] 34300- 3125 Mar, [place] [id number] [place] [address] 06554- 9813 Mar, DM (diabetes mellitus) with complications E11.8 ; Abnormal lung sounds R09.89 ; Bronchitis J40 and Hyperlipidemia, unspecified hyperlipidemia type E78.5 [facility] [id number] [place] [address] 76444 -7869 Mar, URI, acute J06.9 [place] [id number] [place] [address] 05127- 8064 Mar, [place] [id number] [place] [address] 28073- 1140 Mar, DM (diabetes mellitus) with complications E11.8 [place] [id number] [place] [address] 05612- 2674 Mar, Other chronic pain G89.29 and Generalized anxiety disorder F41.1 [place] [id number] [place] [address] 54179- 2661 Feb, [facility] [id number] [place] [address] 27849- 3117 Feb, Mass of left lung R91.8 and Cervicalgia M54.2 [place] [id number] 81275- 4007 Feb, [facility] [address] 11389- 5787 Feb, [facility] [address] 97618 -8705 Feb, Cough R05 and Bronchitis J40 [facility] [address] 87080 -2719 07 Feb, 2017 Acute nasopharyngitis J00 and Bronchitis J40 [place] [address] 40093- 0204 06 Feb, 2017 Other chronic pain G89.29 and Generalized anxiety disorder F41.1 [place] [address] 65232- 8446 29 Jan, 2017 Encounter for immunization Z23 [facility] [address] 62000 -7935 25 Jan, 2017 [facility] [place] [address] 72541 -3644 18 Jan, 2017 [place] [address] 56674- 7414 16 Jan, 2017 Canker sores oral K12.0 [place] [address] 52958- 1314 14 Jan, 2017 [place] [address] 97133- 9082 07 Jan, 2017 Other chronic pain G89.29 and Generalized anxiety disorder F41.1 [facility] [address] 34560- 2294 06 Jan, 2017 Cough R05 and Bronchitis J40 [facility] [id number] [place] [address] 30861 -2035 Jan, Bronchitis J40 [facility] [address] 42886- 2061 Dec, Vitamin D deficiency E55.9 [facility] [address] 19558- 2593 Dec, DM (diabetes mellitus) with complications E11.8 [place] [address] 36980- 2250 Dec, DM (diabetes mellitus) with complications E11.8 and Vitamin D deficiency E55.9 [place] [address] 90727- 6028 Dec, DM (diabetes mellitus) with complications E11.8 ; Essential hypertension I10 ; Hyperlipidemia, unspecified hyperlipidemia type E78.5 ; Vitamin D deficiency E55.9 ; Gastroesophageal reflux disease, esophagitis presence not specified K21.9 ; 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 ; Other chronic pain G89.29 ; Encounter for immunization Z23 and Generalized anxiety disorder F41.1 [place] [address] 36509- 5632 12 Nov, 2016 History of CVA with residual deficit I69.30 [place] [address] 53826- 0614 11 Nov, 2016 DM (diabetes mellitus) with complications E11.8 [place] [id number] [place] [address] 02781- 1426 06 Nov, 2016 Left otitis media with effusion H65.92 ; Bronchitis J40 and Canker sores oral K12.0 [place] [address] 89830- 7042 Oct, [place] [address] 35819- 9184 Oct, DM (diabetes mellitus) with complications E11.8 [place] [id number] [place] [address] 40694- 1738 Oct, [facility] [id number] [place] [address] 96091- 1988 Sep, DM (diabetes mellitus) with complications E11.8 [place] [id number] [place] [address] 44448- 0903 Sep, DM (diabetes mellitus) with complications E11.8 ; Essential hypertension I10 ; Gastroesophageal reflux disease, esophagitis presence not specified K21.9 ; Hyperlipidemia, unspecified hyperlipidemia type E78.5 ; Tobacco abuse Z72.0 ; Vitamin D deficiency E55.9 ; History of CVA with residual deficit I69.30 and Seasonal allergic rhinitis due to pollen J30.1 [place] [id number] [place] [address] 51818- 2844 Sep, [address] 89584- 1383 Aug, [facility] [id number] [place] [address] 11299 -3551 Aug, Dysuria R30.0 ; Acute cystitis with hematuria N30.01 and Middle ear effusion, right H65.91 [place] [id number] [place] [address] 56183- 0731 Aug, Other complicated headache syndrome G44.59 [place] [id number] [place] [address] 11466- 1467 19 Aug, 2016 DM (diabetes mellitus) with complications E11.8 [place] [id number] [place] [address] 70888- 9463 14 Aug, 2016 Dysuria R30.0 [place] [id number] [place] [address] 90016- 4286 Aug, Dysuria R30.0 [facility] [id number] [place] [address] 92345- 7840 Aug, [place] [address] [place] [address]- 5952 July, [facility] [id number] [place] [address] 17717- 0520 July, [facility] [id number] [place] [address] 03677- 5483 July, DM (diabetes mellitus) with complications E11.8 [facility] [id number] [place] [address] 78996- 1166 July, Other complicated headache syndrome G44.59 [facility] [id number] [place] [address] 54686- 3814 July, [facility] [id number] [place] [address] 85699 -8433 July, Dysuria R30.0 and Acute cystitis with hematuria N30.01 [place] [id number] [place] [address] 15466- 9319 July, [facility] [id number] [place] [address] 86961- 2474 July, Other complicated headache syndrome G44.59 [facility] [id number] [place] [address] 81679 -9091 Jun, Exposure to strep throat Z20.818 and Acute upper respiratory infection, unspecified J06.9 [place] [id number] [place] [address] 75244- 6212 Jun, [facility] [id number] [place] [address] 28478- 8696 Jun, DM (diabetes mellitus) with complications E11.8 and Gastroesophageal reflux disease, esophagitis presence not specified K21.9 [facility] [id number] [place] [address] 95262- 4406 Jun, [facility] [id number] [place] [address] 04609- 6368 Jun, Dizziness R42 [facility] [id number], [place] [address]5621 Jun, [facility] [id number] [place] [address] 36678- 7722 Jun, [facility] [id number] [place] [address] 43731 -3164 May, Seasonal allergic rhinitis, unspecified allergic rhinitis trigger J30.2 [facility] [id number] [place] [address] 97687- 6882 May, [facility] [id number] [place] [address] 48063- 3240 May, DM (diabetes mellitus) with complications E11.8 [...] Seasonal allergic rhinitis due to pollen J30.1 [facility] [id number] [place] [address] 25334- 8901 May, Gastroesophageal reflux disease, esophagitis presence not specified K21.9 [facility] [id number] [place] [address] 70504- 8047 May, [facility] [id number] [place] [address] 30036- 2745 Apr, [facility] [id number] [place] [address] 90028- 0343 Apr, [facility] [id number] [place] [address] 28116- 5536 Mar, [facility] [id number] [place] [address] 25235- 2802 Mar, [facility] [id number] [place] [address] 02524- 1468 Mar, [facility] [address] [address]- 6560 Mar, [place] [id number] [place] [address] 14863- 1466 Feb, [facility] [id number] [place] [address] 48604- 6372 Feb, [place] [id number] [place] [address] 41232- 6142 Feb, [place] [id number] [place] [address] 73789- 0688 Feb, Major depressive disorder, recurrent episode, moderate F33.1 ; Generalized anxiety disorder F41.1 ; Essential hypertension I10 ; DM ( diabetes mellitus) with complications E11.8 ; Hyperlipidemia, unspecified hyperlipidemia type E78.5 ; 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 and Gastroesophageal reflux disease, esophagitis presence not specified K21.9 [facility] [id number] [place] [address] 05892 -2054 Feb, Other viral agents as the cause of diseases classified elsewhere B97.89 and Acute upper respiratory infection, unspecified J06.9 [place] [address] [place] [address] 91768- 3665 Jan, [place] [id number] [place] [address] 01783- 7302 Jan, [facility] [id number] [place] [address] 26954 -8470 Jan, Acute bronchitis, unspecified organism J20.9 [place] [id number] [place] [address] 98571- 9777 Jan, [place] [id number] [place] [address] 28733- 0199 04 Jan, 2016 History of CVA with residual deficit I69.30 [place] [id number] [place] [address] 28469- 8643 Jan, [place] [address] [place] [address] 62259- 9165 Jan, Acute bronchitis, unspecified organism J20.9 [place] [address] [place] [address] 92836- 0133 Jan, [place] [id number] [place] [address] 67447- 0418 Dec, History of CVA with residual deficit I69.30 [place] [address] [place] [address] 13040- 8054 Dec, [place] [id number] [place] [address] 72068- 4727 Dec, Other chronic pain G89.29 ; DM (diabetes mellitus) with complications E11.8 and History of CVA with residual deficit I69.30 [place] [address] [place] [address] 93886- 6892 Nov, Major depressive disorder, recurrent episode, moderate F33.1 ; Irregular heart rhythm I49.9 ; Essential hypertension I10 ; History of CVA with residual deficit I69.30 ; DM (diabetes mellitus) with complications E11.8 ; Gastroesophageal reflux disease, esophagitis presence not specified K21.9 ; Hyperlipidemia, unspecified hyperlipidemia type E78.5 ; 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 ; Other chronic pain G89.29 and Generalized anxiety disorder F41.1 [place] [address] [place] [address] 74222- 3799 Oct, Generalized anxiety disorder F41.1 ; Major depressive disorder, recurrent episode, moderate F33.1 ; Essential hypertension I10 ; History of CVA with residual deficit I69.30 ; DM (diabetes mellitus) with complications E11.8 ; Gastroesophageal reflux disease, esophagitis presence not specified K21.9 ; Hyperlipidemia, unspecified hyperlipidemia type E78.5 ; Other chronic pain G89.29 and Bacterial conjunctivitis of left eye H10.9 [place] [address] [place] [address] 86105- 7431 Sep, Chronic pain syndrome G89.4 and DM (diabetes mellitus) with complications E11.8 [place] [id number] [place] [address] 23919- 8479 Sep, Irregular heart rhythm I49.9 ; Routine health maintenance Z00.00 ; Essential hypertension I10 ; History of CVA with residual deficit I69.30 ; Gastroesophageal reflux disease, esophagitis presence not specified K21.9 ; DM (diabetes mellitus) with complications E11.8 ; Hyperlipidemia, unspecified hyperlipidemia type E78.5 and Other complicated headache syndrome G44.59 [place] [id number] [place] [address] 04741- 8432 Jun, [place] [id number] [place] [address] 70301- 1871 Jun, [place] [id number] [place] [address] 61573- 1045 Aug, [place] [id number] [place] [address] 19383- 2632 Jun, IMMUNIZATIONS No Known Immunizations SOCIAL HISTORY Never Assessed REASON FOR VISIT UTI symptoms-RHONDA Conde PLAN OF CARE VITAL SIGNS MEDICATIONS Unknown Medications RESULTS No Results PROCEDURES Procedure Date Ordered Result Body Site LAB NOT BILLED BY [facility] August 26, 2017 URINALYSIS, AUTO, W/O SCOPE August 26, 2017 INSTRUCTIONS MEDICATIONS ADMINISTERED No Known Medications MEDICAL (GENERAL) HISTORY Type Description Date Medical History diabetes mellitus Medical History hyperlipidemia Medical History hypertension Medical History Anxiety disorder Medical History Blood Clotting Disorder- Dr Galvan at [facility] Medical History Possible Anemia (currently under work up) - Dr Galvan [facility] Medical History irregular heart beat-sees [...] Has been hospitalized at then transfered to [facility]. 2014 Hospitalization History Child Hospitalization History abd pain and shakiness - [facility] ED visit [facility] Hospitalization History [facility] ED for URI 04/16/17 Hospitalization History via [facility] er 08/16/17
--- OUTSIDE RECORDS SUMMARY | 2017-11-24 21:37 | XMS REPORT ---
Author Author ELLIMARYA NABIL [facility] Address [address] [place] [address] Care Team Providers Care Unemployment Inspector Name Role Phone NABIL FREED Unavailable PROBLEMS Type Condition ICD9-CM Code [id number] Code Onset Dates Condition Status SNOMED Code Problem Tobacco abuse Z72.0 Active 003350359 Problem Seasonal allergic rhinitis due to pollen J30.1 Active 01937915 Problem Tobacco abuse counseling Z71.6 Active 167333528 Problem Abnormal drug screen R89.2 Active 465208436 Problem Acute non intractable tension-type headache G44.209 Active 022208966 Problem FPC current use of insulin Z79.4 Active 872321838 Problem History of CVA with residual deficit I69.30 Active 140084554 Problem Chronic pain syndrome G89.4 Active 636889655 Problem Type 2 diabetes mellitus with hyperglycemia E11.65 Active 44088372 Problem Elevated liver enzymes R74.8 Active 455923915 Problem Generalized anxiety disorder F41.1 Active 88198498 Problem Vitamin D deficiency E55.9 Active 15401819 Problem Major depressive disorder, recurrent episode, moderate F33.1 Active 345321351 Problem Hyperlipidemia, unspecified hyperlipidemia type E78.5 Active 93881112 Problem Gastroesophageal reflux disease, esophagitis presence not specified K21.9 Active 931782154 Problem 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 Active 743247510 Problem Essential hypertension I10 Active 29270540 Problem DM (diabetes mellitus) with complications E11.8 Active 44036953 Problem Other chronic pain G89.29 Active 29154632 ALLERGIES Substance Reaction Event Type Date Status Penicillin V Potassium Unknown Drug Allergy Aug, Active Erythromycin Base Unknown Drug Allergy Aug, Active Codeine Unknown Drug Allergy Aug, Active ENCOUNTERS Encounter Location Date Diagnosis [facility] [address] [facility] [id number] [address] Oct, [facility] [address], [place] [address] Oct, [facility] [id number] [place] [address] 57306 -2195 Oct, [facility] [id number] [place] [address] 82331 -9601 Oct, Dysuria R30.0 and Acute cystitis with hematuria N30.01 [facility] [id number] [place] [address] 59733- 3980 Oct, [facility] [id number] [place] [address] 72883- 5047 Oct, [facility] [id number] [place] [address] 24496- 9534 Oct, Controlled substance agreement broken Z91.14 ; Violation of controlled substance agreement Z91.14 ; Other chronic pain G89.29 and Generalized anxiety disorder F41.1 [place] [id number] [place] [address] 26533- 5083 Oct, [place] [id number] [place] [address] 38744- 2800 Oct, [facility] [id number] [place] [address] 40121- 7185 Sep, Abscess L02.91 [place] [id number] [place] [address] 83405- 5373 Sep, [place] [id number] [place] [address] 67439- 8317 Sep, DM (diabetes mellitus) with complications E11.8 ; Generalized anxiety disorder F41.1 and Chronic pain syndrome G89.4 [place] [id number] [place] [address] 45975- 2810 Sep, Generalized anxiety disorder F41.1 ; Chronic pain syndrome G89.4 ; Abnormal drug screen R89.2 and Other chest pain R07.89 [place] [address] [place] [place] [address] Aug, Dysuria R30.0 [facility] [id number] [place] [address] 88807- 2680 Aug, Generalized anxiety disorder F41.1 ; Chronic pain syndrome G89.4 and Dysuria R30.0 [facility] [id number] [place] [address] 90656- 2418 Aug, Acute cystitis with hematuria N30.01 and Candidal dermatitis B37.2 [facility] [id number] [place] [address] 68874- 0590 Aug, Dysuria R30.0 [facility] [id number] [place] [address] 28082- 5133 Aug, [facility] [id number] [place] [address] 13149 -4796 Aug, Dysuria R30.0 [facility] [id number] [place] [address] 37934- 7677 Aug, [facility] [id number] [place] [address] 86883- 7095 July, Cervicalgia M54.2 ; Acute non intractable tension-type headache G44.209 ; Type 2 diabetes mellitus with hyperglycemia E11.65 and 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.4 [facility] [id number] [place] [address] 29221- 9644 July, Generalized anxiety disorder F41.1 and Chronic pain syndrome G89.4 [facility] [id number] [place] [address] 04280- 2513 July, Abscess L02.91 [facility] [id number] [place] [address] 82446- 0990 July, [facility] [id number] [place] [address] 48953- 7812 July, [facility] [id number] [place] [address] 77484- 4306 July, Type 2 diabetes mellitus with hyperglycemia [...] pain syndrome G89.4 and Vaginal candidiasis B37.3 [place] [address] 00295- 4527 Jun, Generalized anxiety disorder F41.1 and Other chronic pain G89.[address] 51696- 9276 Jun, [place] [address] 65307- 6994 Jun, [address] 77261- 0414 Jun, Abnormal levels of other serum enzymes R74.8 [place] [id number] [place] [address] 39542- 6845 Jun, Abnormal levels of other serum enzymes R74.8 [place] [id number] [place] [address] 71206- 9567 Jun, Elevated liver enzymes R74.8 [place] [id number] [place] [address] 91231- 4378 Jun, Elevated liver enzymes R74.8 [place] [id number] [place] [address] 11953- 6403 May, Right upper quadrant pain R10.11 ; Cervicalgia M54.2 and High risk medication use Z79.899 [place] [address] [place] [address] 90664- 5141 May, Generalized anxiety disorder F41.1 and Other chronic pain G89.29 [facility] [id number] [place] [address] 78403- 2322 May, Canker sores oral K12.0 [facility] [id number] [place] [address] 55096- 9409 May, Generalized anxiety disorder F41.1 and Other chronic pain G89.29 [facility] [id number] [place] [address] 77203- 3900 May, [facility] [id number] [place] [address] 97808- 8295 Apr, [facility] [id number] [place] [address] 13994 -0539 Apr, Acute cystitis with hematuria N30.01 and Dysuria R30.0 [facility] [id number] [place] [address] 93517- 5501 Apr, [facility] [id number] [place] [address] 30719- 7715 Apr, [facility] [id number] [place] [address] 43201- 6509 Apr, DM (diabetes mellitus) with complications E11.8 [facility] [id number] [place] [address] 45871- 4218 Apr, DM (diabetes mellitus) with complications E11.8 [facility] [id number] [place] [address] 56338- 0205 Apr, [facility] [id number] [place] [address] 54290- 1722 Apr, [facility] [id number] [place] [address] 58117- 4857 Apr, Other chronic pain G89.29 ; Generalized anxiety disorder F41.1 ; Cervicalgia M54.2 and Controlled substance agreement signed Z79.899 [facility] [id number] [place] [address] 75601 -7225 Mar, Abdominal pain R10.9 and Viral gastroenteritis A08.4 [place] [address] 00590- 4249 Mar, [place] [address] 94488- 2728 Mar, [place] [address] 28830- 8927 Mar, DM (diabetes mellitus) with complications E11.8 ; Type 2 diabetes mellitus with hyperglycemia E11.65 ; FPC current use of insulin Z79.4 ; Essential hypertension I10 ; Bronchitis J40 ; Major depressive disorder , recurrent episode, moderate F33.1 ; Hyperlipidemia, unspecified hyperlipidemia type E78.5 ; Tobacco abuse Z72.0 ; Tobacco abuse counseling Z71.6 ; History of CVA with residual deficit I69.30 ; Gastroesophageal reflux disease, esophagitis presence not specified K21.9 and 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 [place] [address] 96823- 4534 Mar, [place] [id number] [place] [address] 58311- 1388 Mar, DM (diabetes mellitus) with complications E11.8 ; Abnormal lung sounds R09.89 ; Bronchitis J40 and Hyperlipidemia, unspecified hyperlipidemia type E78.5 [facility] [id number] [place] [address] 27162 -2776 Mar, URI, acute J06.[address] 32493- 5569 Mar, [place] [address] 92057- 8926 Mar, DM (diabetes mellitus) with complications E11.8 [place] [address] 62196- 0059 Mar, Other chronic pain G89.29 and Generalized anxiety disorder F41.1 [facility] [address] 69566- 3068 Feb, [facility] [address] 15496- 7117 Feb, Mass of left lung R91.8 and Cervicalgia M54.2 [facility] [address] 26227- 6032 Feb, [place] [address] 54063- 5026 Feb, [facility] [place] [address] 10300 -6511 Feb, Cough R05 and Bronchitis J40 [facility] [address] [address] 07 Feb, 2017 Acute nasopharyngitis J00 and Bronchitis J40 [place] [address] 04363- 5590 Feb, Other chronic pain G89.29 and Generalized anxiety disorder F41.1 [place] [address] 60556- 4833 Jan, Encounter for immunization Z23 [facility] [address] 58771 -5823 Jan, [facility] [address] 75570 -4084 Jan, [place] [address] 36835- 8365 16 Jan, 2017 Canker sores oral K12.0 [place] [address] 05951- 0165 14 Jan, 2017 [place] [address] [place] [address]- 3337 07 Jan, 2017 Other chronic pain G89.29 and Generalized anxiety disorder F41.1 [place] [address] 17942- 6691 Jan, Cough R05 and Bronchitis J40 [facility] [address] 80890 -8024 Jan, Bronchitis J40 [place] [address] 82846- 3904 Dec, Vitamin D deficiency E55.[address] [address]50- 1997 Dec, DM (diabetes mellitus) with complications E11.[address] 50228- 9385 Dec, DM (diabetes mellitus) with complications E11.8 and Vitamin D deficiency E55.9 [place] [address] 90491- 9930 Dec, DM (diabetes mellitus) with complications E11.8 ; Essential hypertension I10 ; Hyperlipidemia, unspecified hyperlipidemia type E78.5 ; Vitamin D deficiency E55.9 ; Gastroesophageal reflux disease, esophagitis presence not specified K21.9 ; 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 ; Other chronic pain G89.29 ; Encounter for immunization Z23 and Generalized anxiety disorder F41.[address] 83543- 6301 Nov, History of CVA with residual deficit I69.[address] 39283- 2760 Nov, DM (diabetes mellitus) with complications E11.[address] 90991- 8568 06 Nov, 2016 Left otitis media with effusion H65.92 ; Bronchitis J40 and Canker sores oral K12.[address] [place] [address]- 8799 14 Oct, 2016 [place] [address] 67050- 6042 Oct, DM (diabetes mellitus) with complications E11.8 [place] [id number] [place] [address] 13627- 6613 Oct, [place] [address] 18315- 1903 Sep, DM (diabetes mellitus) with complications E11.8 [place] [address] 87684- 9985 Sep, DM (diabetes mellitus) with complications E11.8 ; Essential hypertension I10 ; Gastroesophageal reflux disease, esophagitis presence not specified K21.9 ; Hyperlipidemia, unspecified hyperlipidemia type E78.5 ; Tobacco abuse Z72.0 ; Vitamin D deficiency E55.9 ; History of CVA with residual deficit I69.30 and Seasonal allergic rhinitis due to pollen J30.1 [place] [id number] [place] [address] 02881- 5364 Sep, [address] 82909- 3296 Aug, [facility] [id number] [place] [address] 54699 -3640 Aug, Dysuria R30.0 ; Acute cystitis with hematuria N30.01 and Middle ear effusion, right H65.91 [place] [id number] [place] [address] 35893- 9858 Aug, Other complicated headache syndrome G44.[address] 93529- 4039 19 Aug, 2016 DM (diabetes mellitus) with complications E11.8 [place] [address] 89909- 7781 14 Aug, 2016 Dysuria R30.0 [place] [address] [place] [address]- 0025 Aug, Dysuria R30.0 [place] [id number] [place] [address] 48809- 7557 Aug, [facility] [id number] [place] [address] 18868- 9271 July, [place] [id number] [place] [address] 54636- 3439 July, [facility] [id number] [place] [address] 88057- 4026 July, DM (diabetes mellitus) with complications E11.8 [place] [id number] [place] [address] 12836- 0421 July, Other complicated headache syndrome G44.59 [place] [id number] [place] [address] 78277- 4231 July, [facility] [id number] [place] [address] 48381 -1763 July, Dysuria R30.0 and Acute cystitis with hematuria N30.01 [place] [id number] [place] [address] 94902- 1946 July, [place] [id number] [place] [address] 98417- 2843 July, Other complicated headache syndrome G44.59 [facility] [id number] [place] [address] 82657 -7259 Jun, Exposure to strep throat Z20.818 and Acute upper respiratory infection, unspecified J06.9 [facility] [id number] [place] [address] 08373- 2923 Jun, [place] [id number] [place] [address] 47274- 3706 Jun, DM (diabetes mellitus) with complications E11.8 and Gastroesophageal reflux disease, esophagitis presence not specified K21.9 [place] [address] [address]- 3488 Jun, Dizziness R42 [facility] [id number] [place] [address] 85431- 9466 Jun, [facility] [id number] [place] [address] 95408 -0845 Jun, [facility] [id number] [place] [address] 38721- 2396 Jun, [facility] [id number] [place] [address] 34063 -3336 May, Seasonal allergic rhinitis, unspecified allergic rhinitis trigger J30.2 [facility] [id number] [place] [address] 31093- 9268 May, [place] [id number] [place] [address] 13915- 0045 May, DM (diabetes mellitus) with complications E11.8 [...] Seasonal allergic rhinitis due to pollen J30.1 [facility] [address] [place] [address] 37933- 4279 May, Gastroesophageal reflux disease, esophagitis presence not specified K21.9 [facility] [address] [place] [address] 49415- 2830 May, [facility] [id number] [place] [address] 31002- 2659 Apr, [facility] [id number] [place] [address] 72034- 8120 Apr, [facility] [address] [place] [address]- 9414 Mar, [facility] [address] [place] [address] 97014- 6218 Mar, [facility] [id number] [place] [address] 48375- 3164 Mar, [facility] [id number] [place] [address] 08460- 2565 Mar, [facility] [id number] [place] [address] 33843- 6948 Feb, [facility] [id number] [place] [address] 01389- 1379 Feb, [facility] [id number] [place] [address] 04774- 7430 Feb, [facility] [id number] [place] [address] 42030- 4532 Feb, Major depressive disorder, recurrent episode, moderate F33.1 ; Generalized anxiety disorder F41.1 ; Essential hypertension I10 ; DM ( diabetes mellitus) with complications E11.8 ; Hyperlipidemia, unspecified hyperlipidemia type E78.5 ; 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 and Gastroesophageal reflux disease, esophagitis presence not specified K21.9 [facility] [address] [place] [address] 07385 -8917 Feb, Other viral agents as the cause of diseases classified elsewhere B97.89 and Acute upper respiratory infection, unspecified J06.9 [facility] [address] [address]- 8913 Jan, [facility] [id number] [place] [address] 97556- 5661 Jan, [facility] [address] [place] [address] 88469 -6785 Jan, Acute bronchitis, unspecified organism J20.9 [facility] [id number] [place] [address] 37916- 7757 Jan, [place] [address] [address]- 3748 Jan, History of CVA with residual deficit I69.30 [place] [id number] [place] [address] 94226- 1988 Jan, [place] [id number] [place] [address] 69446- 0042 Jan, Acute bronchitis, unspecified organism J20.9 [place] [id number] [place] [address] 34108- 1491 Jan, [place] [id number] [place] [address] 12802- 1713 Dec, History of CVA with residual deficit I69.30 [place] [id number] [place] [address] 19064- 9066 Dec, [place] [id number] [place] [address] 17327- 3256 Dec, Other chronic pain G89.29 ; DM (diabetes mellitus) with complications E11.8 and History of CVA with residual deficit I69.30 [place] [address] [place] [address] 51115- 9397 Nov, Major depressive disorder, recurrent episode, moderate F33.1 ; Irregular heart rhythm I49.9 ; Essential hypertension I10 ; History of CVA with residual deficit I69.30 ; DM (diabetes mellitus) with complications E11.8 ; Gastroesophageal reflux disease, esophagitis presence not specified K21.9 ; Hyperlipidemia, unspecified hyperlipidemia type E78.5 ; 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 ; Other chronic pain G89.29 and Generalized anxiety disorder F41.1 [place] [address] [place] [address] 89334- 4875 Oct, Generalized anxiety disorder F41.1 ; Major depressive disorder, recurrent episode, moderate F33.1 ; Essential hypertension I10 ; History of CVA with residual deficit I69.30 ; DM (diabetes mellitus) with complications E11.8 ; Gastroesophageal reflux disease, esophagitis presence not specified K21.9 ; Hyperlipidemia, unspecified hyperlipidemia type E78.5 ; Other chronic pain G89.29 and Bacterial conjunctivitis of left eye H10.9 [place] [id number] [place] [address] 85263- 8140 Sep, Chronic pain syndrome G89.4 and DM (diabetes mellitus) with complications E11.[address] 57530- 4635 Sep, Irregular heart rhythm I49.9 ; Routine health maintenance Z00.00 ; Essential hypertension I10 ; History of CVA with residual deficit I69.30 ; Gastroesophageal reflux disease, esophagitis presence not specified K21.9 ; DM (diabetes mellitus) with complications E11.8 ; Hyperlipidemia, unspecified hyperlipidemia type E78.5 and Other complicated headache syndrome G44.[address] 61512- 8136 Jun, [place] [address] 05563- 1865 Jun, [address] 20693- 0686 Aug, [address] 51350- 8990 Jun, IMMUNIZATIONS No Known Immunizations SOCIAL HISTORY Never Assessed REASON FOR VISIT dysuria for 1 hour. kbullardrmissy PLAN OF CARE Activity Details Follow Up prn Reason: VITAL SIGNS Height 62 in 2017-08-19 Weight 197.0 lbs 2017-08-19 Temperature 97.8 degrees Fahrenheit 2017-08-19 Heart Rate 84 bpm 2017-08-19 Respiratory Rate 20 2017-08-19 BMI 36.03 kg/m2 2017-08-19 Blood pressure systolic 134 mmHg 2017-08-19 Blood pressure diastolic 74 mmHg 2017-08-19 MEDICATIONS Medication Instructions Dosage Frequency Start Date End Date Duration Status Walker - as directed Jan, Active Diltiazem HCl ER 120 MG Orally Once a day 1 capsule on an empty stomach in the morning 24h 90 days Active Senna S 8.6-50 MG Orally twice a day 1 tablet 12h 10 Jul, 2018 90 days Active Onglyza 5 mg Orally Once a day 1 tablet 24h 90 days Active Potassium Chloride ER 10 meq Orally Twice a day TAKE ONE TABLET BY MOUTH TWICE A DAY WITH FOOD 12h 90 Active OneTouch Verio - TEST BLOOD SUGAR THREE TIMES A DAY E11.8 30 Active One Touch/One Touch II Starter 1 glucometer subcutaneously 3 times a day to take blood sugars daily Dispense as insurance allows 8h Sep, Active Ergocalciferol 49180 UNIT Orally once weekly 1 capsule July, Sep, 8 weeks Active OneTouch Delica Lancets 33G 33 TEST BLOOD SUGAR THREE TIMES A DAY E11.8 Active BD Pen Needle Mini U/F 31 gauge USE ONCE DAILY WITH INSULIN PENS 90 Active Naproxen 500 mg Orally bid prn 1 tablet Sep, 90 days Active Humalog 100 UNIT/ML Subcutaneous 3 times a day 10 units with meals 8h July, 12 months Active Plavix 75 MG Orally Once a day 1 tablet 24h 90 days Active Famotidine 20 mg Orally Twice a day 1 tablet 12h Apr, 90 days Active MetFORMIN HCl ER 750 MG Orally twice a day 1 tablet with meals 12h 90 days Active Test strips 8h Active Pen [place] 31 gauge subcutaneously twice a day DX: E11.8 as directed Active Cipro 500 mg Orally every 12 hrs 1 tablet 12h Aug, Aug, 07 days Active Atorvastatin Calcium 80 MG Orally Once a day 1 tablet 24h 90 days Active Hydrochlorothiazide 25 MG Orally Once a day 1 tablet 24h 90 days Active Lancets - Active Baclofen 20 mg Orally 2 times a day if needed 1 tablet with food or milk Feb, Oct, 30 day(s) Active Xanax 1 MG Orally 4 times a day 1 tablet 6h 28 days Active Pantoprazole Sodium 20 mg Orally 2 times a day 1 tablets 12h May, 90 days Active Levemir Flexpen 100 UNIT/ML Subcutaneous 2 times a day 35 units 12h 12 months Active ASA Oral Once a day 1 tab 24h Active Metoprolol Tartrate 25 MG Orally Twice a day 1 tablet with food 12h 90 days Active Bath/Shower Seat 1 please provide one adult shower seat for patient use one time shower/bath seat for bathing Dec, Active Hydrocodone-Acetaminophen 10-325 MG Orally every 6 hrs 1 tablet as needed 6h July, Aug, 28 days Active RESULTS No Results PROCEDURES Procedure Date Ordered Result Body Site URINALYSIS, AUTO, W/O SCOPE August 19, 2017 [facility] VISIT ESTABLISHED PATIENT August 19, 2017 LAB NOT BILLED BY [facility] August 19, 2017 INSTRUCTIONS MEDICATIONS ADMINISTERED No Known Medications MEDICAL (GENERAL) HISTORY Type Description Date Medical History diabetes mellitus Medical History hyperlipidemia Medical History hypertension Medical History Anxiety disorder Medical History Blood Clotting Disorder- Dr Galvan at [facility] Medical History Possible Anemia (currently under work up) - Dr Galvan [facility] Medical History irregular heart beat-sees dr. hassan Medical History history of pancreatitis Medical History gerd Medical History History of CVA with residual deficit Medical History Other complicated headache syndrome Medical History Stokes syndrome Surgical History tubal ligation Surgical History section Surgical History cholecystectomy Surgical History Toe Nail Removal x2 Hospitalization History Brain Stem Strokes x5. Has been hospitalized at then transfered to [place]. 2014 Hospitalization History Child Hospitalization History abd pain and shakiness - [facility] ED visit [facility] Hospitalization History [facility] ED for URI 04/16/17 Hospitalization History via [facility] er 08/16/17
--- OUTSIDE RECORDS SUMMARY | 2017-11-24 21:37 | XMS REPORT ---
Author Author SOTERO HUIZAR Organization [facility] Address [address] [place] [address] Care Team Providers Care Hot Braider Name Role Phone HUIZARMICHAEL CoxELE Unavailable PROBLEMS Type Condition ICD9-CM Code WFG69-OS Code Onset Dates Condition Status SNOMED Code Problem Tobacco abuse Z72.0 Active 796350324 Problem Seasonal allergic rhinitis due to pollen J30.1 Active 88558440 Problem Tobacco abuse counseling Z71.6 Active 297154524 Problem Abnormal drug screen R89.2 Active 324690593 Problem Acute non intractable tension-type headache G44.209 Active 198986630 Problem FCI current use of insulin Z79.4 Active 770368853 Problem History of CVA with residual deficit I69.30 Active 803723662 Problem Chronic pain syndrome G89.4 Active 948635033 Problem Type 2 diabetes mellitus with hyperglycemia E11.65 Active 79313034 Problem Elevated liver enzymes R74.8 Active 559472488 Problem Generalized anxiety disorder F41.1 Active 22195452 Problem Vitamin D deficiency E55.9 Active 09011570 Problem Major depressive disorder, recurrent episode, moderate F33.1 Active 844658411 Problem Hyperlipidemia, unspecified hyperlipidemia type E78.5 Active 96150068 Problem Gastroesophageal reflux disease, esophagitis presence not specified K21.9 Active 151142789 Problem 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 Active 894784489 Problem Essential hypertension I10 Active 33833180 Problem DM (diabetes mellitus) with complications E11.8 Active 39590934 Problem Other chronic pain G89.29 Active 53288549 ALLERGIES No Information ENCOUNTERS Encounter Location Date Diagnosis [facility] [address] [facility] [id number] [address] Oct, [facility] [id number] [address] Oct, [facility] [address], [place] [address] Oct, [facility] [id number] [place] [address]9633 -3103 Oct, Dysuria R30.0 and Acute cystitis with hematuria N30.01 [facility] [id number] [place] [address] 17249- 1595 Oct, [facility] [id number] [place] [address] 65434- 5037 Oct, [facility] [id number] [place] [address] 78002- 0329 Oct, Controlled substance agreement broken Z91.14 ; Violation of controlled substance agreement Z91.14 ; Other chronic pain G89.29 and Generalized anxiety disorder F41.1 [facility] [id number] [place] [address] 52884- 7037 Oct, [facility] [id number] [place] [address] 54995- 6087 Oct, [facility] [id number] [place] [address] 43483- 1468 Sep, Abscess L02.91 [facility] [id number] [place] [address] 55809- 6964 Sep, [facility] [id number] [place] [address] 52636- 7171 Sep, DM (diabetes mellitus) with complications E11.8 ; Generalized anxiety disorder F41.1 and Chronic pain syndrome G89.4 [facility] [id number] [place] [address] 03691- 0638 Sep, Generalized anxiety disorder F41.1 ; Chronic pain syndrome G89.4 ; Abnormal drug screen R89.2 and Other chest pain R07.89 [facility] [id number] [place] [address] 40771- 8764 Aug, Dysuria R30.0 [facility] [id number] [place] [address] 37738- 4077 Aug, Generalized anxiety disorder F41.1 ; Chronic pain syndrome G89.4 and Dysuria R30.0 [place] [id number] [place] [address] 71246- 5543 Aug, Acute cystitis with hematuria N30.01 and Candidal dermatitis B37.2 [facility] [id number] [place] [address] 99024- 3541 Aug, Dysuria R30.0 [facility] [id number] [place] [address] 77576- 6294 Aug, [facility] [id number] [place] [address] 47985 -2691 Aug, Dysuria R30.0 [facility] [id number] [place] [address] 38360- 1201 Aug, [place] [id number] [place] [address] 58812- 0233 July, Cervicalgia M54.2 ; Acute non intractable tension-type headache G44.209 ; Type 2 diabetes mellitus with hyperglycemia E11.65 and 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.4 [place] [id number] [place] [address] 60784- 4580 July, Generalized anxiety disorder F41.1 and Chronic pain syndrome G89.4 [place] [id number] [place] [address] 93960- 9030 July, Abscess L02.91 [place] [id number] [place] [address] 11901- 6174 July, [place] [id number] [place] [address] 25655- 1569 July, [facility] [id number] [place] [address] 75871- 0440 July, Type 2 diabetes mellitus with hyperglycemia E11.65 ; 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.4 ; Elevated [...] pain syndrome G89.4 and Vaginal candidiasis B37.3 [place] [address] 22879- 0114 Jun, Generalized anxiety disorder F41.1 and Other chronic pain G89.29 [place] [address] 23756- 2283 Jun, [place] [address] 16531- 0473 Jun, [place] [address] 79369- 1553 Jun, Abnormal levels of other serum enzymes R74.8 [place] [address] 42109- 3199 Jun, Abnormal levels of other serum enzymes R74.8 [place] [address] 40911- 3594 Jun, Elevated liver enzymes R74.8 [place] [address] 84388- 9528 Jun, Elevated liver enzymes R74.8 [place] [address] 14006- 9142 May, Right upper quadrant pain R10.11 ; Cervicalgia M54.2 and High risk medication use Z79.899 [place] [id number] [place] [address] 21188- 7604 May, Generalized anxiety disorder F41.1 and Other chronic pain G89.29 [facility] [id number] [place] [address] 95819- 3142 May, Canker sores oral K12.0 [facility] [address] 37957- 6545 May, Generalized anxiety disorder F41.1 and Other chronic pain G89.29 [facility] [address] 48316- 2485 May, [facility] [address] 77575- 8337 Apr, [facility] [address] 26501 -4[address] Apr, Acute cystitis with hematuria N30.01 and Dysuria R30.0 [place] [address] 45944- 1078 Apr, [facility] [address] 24732- 6128 Apr, [facility] [address] 27377- 6908 Apr, DM (diabetes mellitus) with complications E11.8 [place] [address] 86479- 1441 06 Apr, 2017 DM (diabetes mellitus) with complications E11.8 [place] [address] 54605- 4525 Apr, [facility] [id number] [place] [address] 11571- 8750 Apr, [facility] [address] 15663- 6351 Apr, Other chronic pain G89.29 ; Generalized anxiety disorder F41.1 ; Cervicalgia M54.2 and Controlled substance agreement signed Z79.899 [facility] [address] 95785 -3444 Mar, Abdominal pain R10.9 and Viral gastroenteritis A08.4 [place] [address] 03333- 2577 Mar, [facility] [address] 73878- 0486 Mar, [place] [address] 63476- 5786 Mar, DM (diabetes mellitus) with complications E11.8 [...] not specified K21.9 and 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 [place] [address] 63750- 4102 Mar, [place] [address] 65357- 4571 Mar, DM (diabetes mellitus) with complications E11.8 ; Abnormal lung sounds R09.89 ; Bronchitis J40 and Hyperlipidemia, unspecified hyperlipidemia type E78.5 [facility] [address] 52453 -0205 Mar, URI, acute J06.9 [facility] [id number] [place] [address] 75462- 4800 Mar, [place] [address] 73587- 2466 Mar, DM (diabetes mellitus) with complications E11.8 [facility] [address] 69145- 1506 Mar, Other chronic pain G89.29 and Generalized anxiety disorder F41.1 [facility] [address] 61587- 7589 Feb, [facility] [address] 87172- 8380 Feb, Mass of left lung R91.8 and Cervicalgia M54.2 [place] [address] 65180- 8280 Feb, [facility] [address] 89278- 8196 Feb, [facility] [address] 27469 -0237 Feb, Cough R05 and Bronchitis J40 [facility] [place] [address] 05166 -1026 07 Feb, 2017 Acute nasopharyngitis J00 and Bronchitis J40 [place] [address] 49410- 8682 06 Feb, 2017 Other chronic pain G89.29 and Generalized anxiety disorder F41.1 [place] [address] 89527- 5607 Jan, Encounter for immunization Z23 [facility] [place] [address] 99508 -3991 Jan, [facility] [place] [address] 64518 -4462 18 Jan, 2017 [facility] [address] 05806- 8411 16 Jan, 2017 Canker sores oral K12.0 [place] [address] 91424- 8288 14 Jan, 2017 [place] [address] 04858- 9515 07 Jan, 2017 Other chronic pain G89.29 and Generalized anxiety disorder F41.1 [place] [address] 11491- 1351 Jan, Cough R05 and Bronchitis J40 [facility] [address] 40512 -4477 Jan, Bronchitis J40 [facility] [address] 22959- 5956 Dec, Vitamin D deficiency E55.9 [place] [address] 31870- 5197 Dec, DM (diabetes mellitus) with complications E11.8 [place] [address] 22957- 5714 Dec, DM (diabetes mellitus) with complications E11.8 and Vitamin D deficiency E55.9 [place] [address] 48289- 7157 Dec, DM (diabetes mellitus) with complications E11.8 ; Essential hypertension I10 ; Hyperlipidemia, unspecified hyperlipidemia type E78.5 ; Vitamin D deficiency E55.9 ; Gastroesophageal reflux disease, esophagitis presence not specified K21.9 ; 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 ; Other chronic pain G89.29 ; Encounter for immunization Z23 and Generalized anxiety disorder F41.1 [place] [address] 58604- 8158 Nov, History of CVA with residual deficit I69.30 [place] [address] 99137- 7916 Nov, DM (diabetes mellitus) with complications E11.8 [place] [address] 80085- 2005 06 Nov, 2016 Left otitis media with effusion H65.92 ; Bronchitis J40 and Canker sores oral K12.0 [place] [address] 63798- 2984 Oct, [place] [address] 63625- 7546 04 Oct, 2016 DM (diabetes mellitus) with complications E11.8 [place] [id number] [place] [address] 18651- 0380 02 Oct, 2016 [facility] [id number] [place] [address] 79834- 1622 17 Sep, 2016 DM (diabetes mellitus) with complications E11.8 [place] [id number] [place] [address] 19985- 3740 11 Sep, 2016 DM (diabetes mellitus) with complications E11.8 ; Essential hypertension I10 ; Gastroesophageal reflux disease, esophagitis presence not specified K21.9 ; Hyperlipidemia, unspecified hyperlipidemia type E78.5 ; Tobacco abuse Z72.0 ; Vitamin D deficiency E55.9 ; History of CVA with residual deficit I69.30 and Seasonal allergic rhinitis due to pollen J30.1 [place] [id number] [place] [address] 61492- 0518 Sep, [place] [id number] [place] [address] 50207- 6211 30 Aug, 2016 [facility] [id number] [place] [address] 60244 -0348 Aug, Dysuria R30.0 ; Acute cystitis with hematuria N30.01 and Middle ear effusion, right H65.91 [place] [id number] [place] [address] 69570- 0606 Aug, Other complicated headache syndrome G44.59 [place] [id number] [place] [address] 11224- 3517 19 Aug, 2016 DM (diabetes mellitus) with complications E11.8 [place] [id number] [place] [address] 87746- 4079 14 Aug, 2016 Dysuria R30.0 [place] [id number] [place] [address] 34613- 3448 12 Aug, 2016 Dysuria R30.0 [place] [address] [place] [address]- 7548 Aug, [facility] [address] [place] [address] 95748- 9856 July, [facility] [address] [place] [address] 65099- 2846 July, [facility] [id number] [place] [address] 35562- 7420 July, DM (diabetes mellitus) with complications E11.8 [facility] [id number] [place] [address] 41281- 6072 July, Other complicated headache syndrome G44.59 [place] [id number] [place] [address] 52258- 4819 July, [facility] [id number] [place] [address] 84284 -9583 July, Dysuria R30.0 and Acute cystitis with hematuria N30.01 [facility] [id number] [place] [address] 80857- 7082 July, [facility] [id number] [place] [address] 54051- 5032 July, Other complicated headache syndrome G44.59 [facility] [address] [place] [address] 28602 -5711 Jun, Exposure to strep throat Z20.818 and Acute upper respiratory infection, unspecified J06.9 [facility] [address], [place] [address]- 8035 Jun, [facility] [id number] [place] [address] 81578- 0162 Jun, DM (diabetes mellitus) with complications E11.8 and Gastroesophageal reflux disease, esophagitis presence not specified K21.9 [facility] [address] [place] [address] 18860- 5395 Jun, [facility] [id number] [place] [address] 31791- 5756 11 Jun, 2016 Dizziness R42 [facility] [id number] [place] [address] 77671 -9620 Jun, [facility] [id number] [place] [address] 76315- 5723 Jun, [facility] [address] 17135 -2483 May, Seasonal allergic rhinitis, unspecified allergic rhinitis trigger J30.2 [facility] [id number] [place] [address] 90092- 1283 May, [facility] [id number] [place] [address] 11992- 9259 May, DM (diabetes mellitus) with complications E11.8 [...] J30.1 [facility] [id number] [place] [address] 70648- 5808 May, Gastroesophageal reflux disease, esophagitis presence not specified K21.9 [facility] [id number] [place] [address] 42125- 6884 May, [facility] [id number] [place] [address] 21410- 6956 Apr, [facility] [id number] [place] [address] 51559- 6129 Apr, [facility] [id number] [place] [address] 46131- 8661 Mar, [facility] [id number] [place] [address] 55420- 0542 Mar, [facility] [address], [place] [address]- 4520 Mar, [facility] [address] [place] [address] 98660- 0979 Mar, [facility] [id number] [place] [address] 27622- 3743 Feb, [facility] [id number] [place] [address] 15855- 7170 Feb, [facility] [id number] [place] [address] 59962- 1414 Feb, [place] [id number] [place] [address] 40988- 3000 Feb, Major depressive disorder, recurrent episode, moderate F33.1 ; Generalized anxiety disorder F41.1 ; Essential hypertension I10 ; DM ( diabetes mellitus) with complications E11.8 ; Hyperlipidemia, unspecified hyperlipidemia type E78.5 ; 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 and Gastroesophageal reflux disease, esophagitis presence not specified K21.9 [facility] [id number] [place] [address] 53084 -1083 Feb, Other viral agents as the cause of diseases classified elsewhere B97.89 and Acute upper respiratory infection, unspecified J06.9 [facility] [address] [place] [address] 78797- 3508 Jan, [facility] [id number] [place] [address] 23510- 3683 Jan, [facility] [address] [place] [address] 81210 -8590 Jan, Acute bronchitis, unspecified organism J20.9 [facility] [address] [place] [address] 81861- 3203 Jan, [facility] [id number] [place] [address] 76660- 0218 Jan, History of CVA with residual deficit I69.30 [place] [address], [place] [address]- 1030 Jan, [place] [address] [place] [address] 34459- 8290 Jan, Acute bronchitis, unspecified organism J20.9 [place] [id number] [place] [address] 36344- 1823 Jan, [place] [id number] [place] [address] 24955- 5088 Dec, History of CVA with residual deficit I69.30 [place] [id number] [place] [address] 15230- 0795 Dec, [place] [id number] [place] [address] 30110- 3313 Dec, Other chronic pain G89.29 ; DM (diabetes mellitus) with complications E11.8 and History of CVA with residual deficit I69.30 [place] [address] [place] [address] 25131- 3678 Nov, Major depressive disorder, recurrent episode, moderate F33.1 ; Irregular heart rhythm I49.9 ; Essential hypertension I10 ; History of CVA with residual deficit I69.30 ; DM (diabetes mellitus) with complications E11.8 ; Gastroesophageal reflux disease, esophagitis presence not specified K21.9 ; Hyperlipidemia, unspecified hyperlipidemia type E78.5 ; 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 ; Other chronic pain G89.29 and Generalized anxiety disorder F41.1 [place] [address], [place] [address]- 2185 Oct, Generalized anxiety disorder F41.1 ; Major depressive disorder, recurrent episode, moderate F33.1 ; Essential hypertension I10 ; History of CVA with residual deficit I69.30 ; DM (diabetes mellitus) with complications E11.8 ; Gastroesophageal reflux disease, esophagitis presence not specified K21.9 ; Hyperlipidemia, unspecified hyperlipidemia type E78.5 ; Other chronic pain G89.29 and Bacterial conjunctivitis of left eye H10.[address] [place] [address] 08171- 9124 Sep, Chronic pain syndrome G89.4 and DM (diabetes mellitus) with complications E11.8 [place] [id number] [place] [address] 98210- 8595 Sep, Irregular heart rhythm I49.9 ; Routine health maintenance Z00.00 ; Essential hypertension I10 ; History of CVA with residual deficit I69.30 ; Gastroesophageal reflux disease, esophagitis presence not specified K21.9 ; DM (diabetes mellitus) with complications E11.8 ; Hyperlipidemia, unspecified hyperlipidemia type E78.5 and Other complicated headache syndrome G44.59 [place] [id number] [place] [address] 31373- 2424 Jun, [place] [id number] [place] [address] 90300- 3050 Jun, [place] [id number] [place] [address] 38337- 4000 Aug, [place] [id number] [place] [address] 95744- 7821 Jun, IMMUNIZATIONS No Known Immunizations SOCIAL HISTORY Never Assessed REASON FOR VISIT PLAN OF CARE VITAL SIGNS MEDICATIONS Unknown Medications RESULTS No Results PROCEDURES No Known procedures INSTRUCTIONS MEDICATIONS ADMINISTERED No Known Medications MEDICAL (GENERAL) HISTORY Type Description Date Medical History diabetes mellitus Medical History hyperlipidemia Medical History hypertension Medical History Anxiety disorder Medical History Blood Clotting Disorder- [facility] Galvan at [facility] Medical History Possible Anemia (currently under work up) - Dr Galvan [facility] Medical History irregular heart beat-sees [...] Has been hospitalized at then transfered to [facility]. 2014 Hospitalization History Child Hospitalization History abd pain and shakiness - [facility] visit [facility] [place] Hospitalization History [facility] for URI 04[facility]16/17 Hospitalization History via [facility] 08/16/17
--- OUTSIDE RECORDS SUMMARY | 2017-11-24 21:38 | XMS REPORT ---
Author Author GAYEMICHAELSOTERO Organization [facility] Address [address] [place] [address] Care Team Providers Care Auto Emissions Technician Name Role Phone HUIZARSOTERO Cox Unavailable PROBLEMS Type Condition ICD9-CM Code MIS98-OB Code Onset Dates Condition Status SNOMED Code Problem Tobacco abuse Z72.0 Active 058826586 Problem Seasonal allergic rhinitis due to pollen J30.1 Active 63534766 Problem Tobacco abuse counseling Z71.6 Active 916140565 Problem Abnormal drug screen R89.2 Active 291978004 Problem Acute non intractable tension-type headache G44.209 Active 728060648 Problem [facility] current use of insulin Z79.4 Active 747585847 Problem History of CVA with residual deficit I69.30 Active 106873047 Problem Chronic pain syndrome G89.4 Active 300578550 Problem Type 2 diabetes mellitus with hyperglycemia E11.65 Active 47502800 Problem Elevated liver enzymes R74.8 Active 608628444 Problem Generalized anxiety disorder F41.1 Active 63310145 Problem Vitamin D deficiency E55.9 Active 07777735 Problem Major depressive disorder, recurrent episode, moderate F33.1 Active 175418843 Problem Hyperlipidemia, unspecified hyperlipidemia type E78.5 Active 53352361 Problem Gastroesophageal reflux disease, esophagitis presence not specified K21.9 Active 993104336 Problem 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 Active 990467265 Problem Essential hypertension I10 Active 70664045 Problem 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 Active 18840227 Problem Other chronic pain G89.29 Active 18964773 ALLERGIES Substance Reaction Event Type Date Status Penicillin V Potassium Unknown Drug Allergy July, Active Erythromycin Base Unknown Drug Allergy July, Active Codeine Unknown Drug Allergy July, Active ENCOUNTERS Encounter Location Date Diagnosis [facility] [address] [facility] [id number] [address] Oct, [facility] [address] [id number] [place] [address] 32667- 5861 Oct, [facility] [id number] [place] [address] 60330 -2399 Oct, [facility] [id number] [place] [address] 21716 -9442 Oct, Dysuria R30.0 and Acute cystitis with hematuria N30.01 [facility] [address] 6[address]58- 5327 Oct, [facility] [id number] [place] [address] 26279- 9959 Oct, [facility] [id number] [place] [address] 22090- 8700 Oct, Controlled substance agreement broken Z91.14 ; Violation of controlled substance agreement Z91.14 ; Other chronic pain G89.29 and Generalized anxiety disorder F41.1 [facility] [id number] [place] [address] 01892- 8148 Oct, [facility] [id number] [place] [address] 41771- 1114 Oct, [facility] [id number] [place] [address] 75730- 4825 Sep, Abscess L02.91 [place] [id number] [place] [address] 17244- 8604 Sep, [facility] [id number] [place] [address] 32227- 1945 Sep, DM (diabetes mellitus) with complications E11.8 ; Generalized anxiety disorder F41.1 and Chronic pain syndrome G89.4 [place] [address] 58147- 3387 Sep, Generalized anxiety disorder F41.1 ; Chronic pain syndrome G89.4 ; Abnormal drug screen R89.2 and Other chest pain R07.89 [place] [address] [place] [address] 7[address] Aug, Dysuria R30.0 [facility] [address] 65617- 7717 Aug, Generalized anxiety disorder F41.1 ; Chronic pain syndrome G89.4 and Dysuria R30.0 [facility] [address] 06503- 5087 Aug, Acute cystitis with hematuria N30.01 and Candidal dermatitis B37.2 [facility] [address] 46455- 1999 Aug, Dysuria R30.0 [facility] [address] 82396- 6424 Aug, [facility] [address] 97101 -7245 Aug, Dysuria R30.0 [facility] [address] 98516- 5223 Aug, [facility] [address] 39765- 3718 July, Cervicalgia M54.2 ; Acute non intractable tension-type headache G44.209 ; Type 2 diabetes mellitus with hyperglycemia E11.65 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 [facility] [id number] [place] [address] 15357- 8252 July, Generalized anxiety disorder F41.1 and Chronic pain syndrome G89.4 [facility] [id number] [place] [address] 76948- 6310 July, Abscess L02.91 [facility] [address] 76373- 0673 July, [facility] [id number] [place] [address] 75727- 8397 July, [facility] [address] 07727- 5797 July, Type 2 diabetes mellitus with hyperglycemia E11.65 ; 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 ; Elevated [...] G89.4 and Vaginal candidiasis B37.3 [place] [address] 36325- 5487 Jun, Generalized anxiety disorder F41.1 and Other chronic pain G89.29 [place] [address] 64600- 6481 Jun, [place] [address] 81427- 9188 Jun, [place] [address] 78002- 6952 Jun, Abnormal levels of other serum enzymes R74.8 [place] [address] 76544- 4177 Jun, Abnormal levels of other serum enzymes R74.8 [place] [address] 87187- 0179 Jun, Elevated liver enzymes R74.8 [place] [address] 35102- 0226 Jun, Elevated liver enzymes R74.8 [place] [address] 22490- 2446 May, Right upper quadrant pain R10.11 ; Cervicalgia M54.2 and High risk medication use Z79.899 [place] [address] [place] [address]- 1835 May, Generalized anxiety disorder F41.1 and Other chronic pain G89.29 [facility] [address] 71756- 3390 May, Canker sores oral K12.0 [facility] [address] 89405- 5997 May, Generalized anxiety disorder F41.1 and Other chronic pain G89.29 [facility] [id number] [place] [address] 79016- 9514 May, [facility] [address] 24902- 8893 Apr, [facility] [address] 76752 -9320 Apr, Acute cystitis with hematuria N30.01 and Dysuria R30.0 [facility] [id number] [place] [address] 43787- 1297 Apr, [facility] [id number] [place] [address] 99592- 4216 Apr, [facility] [id number] [place] [address] 47940- 6992 Apr, DM (diabetes mellitus) with complications E11.8 [facility] [id number] [place] [address] 35226- 9002 Apr, DM (diabetes mellitus) with complications E11.8 [facility] [id number] [place] [address] 41188- 2557 Apr, [facility] [id number] [place] [address] 54653- 5404 Apr, [facility] [id number] [place] [address] 83199- 0973 Apr, Other chronic pain G89.29 ; Generalized anxiety disorder F41.1 ; Cervicalgia M54.2 and Controlled substance agreement signed Z79.899 [facility] [id number] [place] [address] 83475 -3480 Mar, Abdominal pain R10.9 and Viral gastroenteritis A08.4 [place] [address] 43711- 3284 Mar, [place] [address] 40957- 0275 Mar, [place] [address] 20606- 6698 Mar, DM (diabetes mellitus) with complications E11.8 ; Type 2 diabetes mellitus with hyperglycemia E11.65 ; [facility] current use of insulin Z79.4 ; Essential hypertension I10 ; Bronchitis J40 ; Major depressive disorder , recurrent episode, moderate F33.1 ; Hyperlipidemia, unspecified hyperlipidemia type E78.5 ; Tobacco abuse Z72.0 ; Tobacco abuse counseling Z71.6 ; History of CVA with residual deficit I69.30 ; Gastroesophageal reflux disease, esophagitis presence not specified K21.9 and 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 [facility] [id number] [place] [address] 63812- 3308 Mar, [facility] [id number] [place] [address] 92143- 5941 Mar, DM (diabetes mellitus) with complications E11.8 ; Abnormal lung sounds R09.89 ; Bronchitis J40 and Hyperlipidemia, unspecified hyperlipidemia type E78.5 [facility] [id number] [place] [address] 80698 -2860 Mar, URI, acute J06.[address] 69251- 0351 Mar, [facility] [id number] [place] [address] 83123- 7773 Mar, DM (diabetes mellitus) with complications E11.8 [facility] [address] 27229- 8610 Mar, Other chronic pain G89.29 and Generalized anxiety disorder F41.1 [facility] [address] 56288- 4873 Feb, [place] [address] 63410- 1097 Feb, Mass of left lung R91.8 and Cervicalgia M54.2 [facility] [address] 77366- 5207 Feb, [place] [address] 76026- 2715 Feb, [facility] [place] [address] 91853 -3684 Feb, Cough R05 and Bronchitis J40 [facility] [place] [address] 76185 -9329 07 Feb, 2017 Acute nasopharyngitis J00 and Bronchitis J40 [place] [address] 33871- 7101 Feb, Other chronic pain G89.29 and Generalized anxiety disorder F41.1 [place] [address] 01955- 1503 Jan, Encounter for immunization Z23 [facility] [address] 27168 -6777 Jan, [facility] [address] 68765 -6815 Jan, [place] [address] 06648- 5473 16 Jan, 2017 Canker sores oral K12.0 [place] [address] 11475- 6469 14 Jan, 2017 [place] [address] 29099- 2781 Jan, Other chronic pain G89.29 and Generalized anxiety disorder F41.1 [place] [address] 37464- 8571 Jan, Cough R05 and Bronchitis J40 [facility] [address] 89929 -0160 Jan, Bronchitis J40 [place] [address] 39820- 1017 Dec, Vitamin D deficiency E55.[address] 37663- 5071 Dec, DM (diabetes mellitus) with complications E11.[address] 29391- 7656 Dec, DM (diabetes mellitus) with complications E11.8 and Vitamin D deficiency E55.9 [place] [address] 34564- 9757 Dec, DM (diabetes mellitus) with complications E11.8 ; Essential hypertension I10 ; Hyperlipidemia, unspecified hyperlipidemia type E78.5 ; Vitamin D deficiency E55.9 ; Gastroesophageal reflux disease, esophagitis presence not specified K21.9 ; 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 ; Other chronic pain G89.29 ; Encounter for immunization Z23 and Generalized anxiety disorder F41.1 [place] [address] 33170- 2645 Nov, History of CVA with residual deficit I69.[address] 60859- 0102 Nov, DM (diabetes mellitus) with complications E11.8 [place] [address] 73003- 8841 06 Nov, 2016 Left otitis media with effusion H65.92 ; Bronchitis J40 and Canker sores oral K12.[address] 33862- 2499 Oct, [facility] [id number] [place] [address] 18920- 5688 Oct, DM (diabetes mellitus) with complications E11.8 [facility] [id number] [place] [address] 76837- 9915 Oct, [facility] [id number] [place] [address] 82913- 5407 Sep, DM (diabetes mellitus) with complications E11.8 [facility] [id number] [place] [address] 74389- 5769 Sep, DM (diabetes mellitus) with complications E11.8 ; Essential hypertension I10 ; Gastroesophageal reflux disease, esophagitis presence not specified K21.9 ; Hyperlipidemia, unspecified hyperlipidemia type E78.5 ; Tobacco abuse Z72.0 ; Vitamin D deficiency E55.9 ; History of CVA with residual deficit I69.30 and Seasonal allergic rhinitis due to pollen J30.1 [facility] [id number] [place] [address] 18482- 6863 Sep, [address] 15152- 2717 Aug, [facility] [id number] [place] [address] 80807 -6234 Aug, Dysuria R30.0 ; Acute cystitis with hematuria N30.01 and Middle ear effusion, right H65.91 [place] [id number] [place] [address] 26499- 2375 Aug, Other complicated headache syndrome G44.[address] 26248- 7233 19 Aug, 2016 DM (diabetes mellitus) with complications E11.8 [facility] [id number] [place] [address] 35931- 1770 14 Aug, 2016 Dysuria R30.0 [place] [address] [place] [address]- 1718 Aug, Dysuria R30.0 [place] [id number] [place] [address] 19739- 6026 Aug, [facility] [id number] [place] [address] 83295- 8444 July, [place] [id number] [place] [address] 63253- 4330 July, [facility] [id number] [place] [address] 09605- 9137 July, DM (diabetes mellitus) with complications E11.8 [facility] [id number] [place] [address] 38701- 1085 July, Other complicated headache syndrome G44.59 [facility] [place] [id number] [place] [address] 38638- 1987 July, [facility] [id number] [place] [address] 43954 -8352 July, Dysuria R30.0 and Acute cystitis with hematuria N30.01 [place] [id number] [place] [address] 26686- 7473 July, [place] [id number] [place] [address] 47964- 8545 July, Other complicated headache syndrome G44.59 [facility] [id number] [place] [address] 74714 -1821 Jun, Exposure to strep throat Z20.818 and Acute upper respiratory infection, unspecified J06.9 [facility] [id number] [place] [address] 36439- 6802 Jun, [place] [id number] [place] [address] 18351- 6033 Jun, DM (diabetes mellitus) with complications E11.8 and Gastroesophageal reflux disease, esophagitis presence not specified K21.9 [place] [address] [address]- 7495 Jun, [facility] [id number] [place] [address] 13948- 9479 Jun, Dizziness R42 [facility] [id number] [place] [address] 37772 -5429 Jun, [facility] [address] 05449- 8783 Jun, [facility] [id number] [place] [address] 28318 -8068 May, Seasonal allergic rhinitis, unspecified allergic rhinitis trigger J30.2 [facility] [id number] [place] [address] 25858- 0772 May, [facility] [id number] [place] [address] 65561- 0287 May, DM (diabetes mellitus) with complications E11.8 [...] allergic rhinitis due to pollen J30.1 [facility] [id number] [place] [address] 86828- 7520 May, Gastroesophageal reflux disease, esophagitis presence not specified K21.9 [facility] [id number] [place] [address] 52937- 0068 May, [facility] [id number] [place] [address] 84479- 8365 Apr, [facility] [id number] [place] [address] 63736- 0100 Apr, [facility] [id number] [place] [address] 35759- 1430 Mar, [facility] [id number] [place] [address] 56463- 3003 Mar, [facility] [id number] [place] [address] 62150- 6156 Mar, [facility] [id number] [place] [address] 41814- 0443 Mar, [facility] [id number] [place] [address] 75966- 3451 Feb, [facility] [id number] [place] [address] 69482- 4538 Feb, [facility] [id number] [place] [address] 15573- 3761 Feb, [facility] [id number] [place] [address] 11083- 3395 Feb, Major depressive disorder, recurrent episode, moderate F33.1 ; Generalized anxiety disorder F41.1 ; Essential hypertension I10 ; DM ( diabetes mellitus) with complications E11.8 ; Hyperlipidemia, unspecified hyperlipidemia type E78.5 ; 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 and Gastroesophageal reflux disease, esophagitis presence not specified K21.9 [facility] [id number] [place] [address] 04747 -8501 Feb, Other viral agents as the cause of diseases classified elsewhere B97.89 and Acute upper respiratory infection, unspecified J06.9 [facility] [address] [address]- 4373 Jan, [facility] [id number] [place] [address] 96694- 6117 Jan, [facility] [id number] [place] [address] 59660 -0967 Jan, Acute bronchitis, unspecified organism J20.9 [facility] [id number] [place] [address] 15773- 5099 Jan, [place] [address], [place] [address]- 2647 Jan, History of CVA with residual deficit I69.30 [place] [id number] [place] [address] 77708- 7814 Jan, [place] [id number] [place] [address] 02256- 3607 Jan, Acute bronchitis, unspecified organism J20.9 [place] [id number] [place] [address] 32359- 7388 Jan, [place] [id number] [place] [address] 14236- 3958 Dec, History of CVA with residual deficit I69.30 [place] [id number] [place] [address] 29068- 5051 Dec, [place] [id number] [place] [address] 82546- 4840 Dec, Other chronic pain G89.29 ; DM (diabetes mellitus) with complications E11.8 and History of CVA with residual deficit I69.30 [place] [id number] [place] [address] 61135- 0763 Nov, Major depressive disorder, recurrent episode, moderate F33.1 ; Irregular heart rhythm I49.9 ; Essential hypertension I10 ; History of CVA with residual deficit I69.30 ; DM (diabetes mellitus) with complications E11.8 ; Gastroesophageal reflux disease, esophagitis presence not specified K21.9 ; Hyperlipidemia, unspecified hyperlipidemia type E78.5 ; 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 ; Other chronic pain G89.29 and Generalized anxiety disorder F41.1 [place] [id number] [place] [address] 82749- 7685 Oct, Generalized anxiety disorder F41.1 ; Major depressive disorder, recurrent episode, moderate F33.1 ; Essential hypertension I10 ; History of CVA with residual deficit I69.30 ; DM (diabetes mellitus) with complications E11.8 ; Gastroesophageal reflux disease, esophagitis presence not specified K21.9 ; Hyperlipidemia, unspecified hyperlipidemia type E78.5 ; Other chronic pain G89.29 and Bacterial conjunctivitis of left eye H10.9 [place] [address] [place] [id number] [place] [address]- [address]339 Sep, Chronic pain syndrome G89.4 and DM (diabetes mellitus) with complications E11.8 [place] [address]- 4979 Sep, Irregular heart rhythm I49.9 ; Routine health maintenance Z00.00 ; Essential hypertension I10 ; History of CVA with residual deficit I69.30 ; Gastroesophageal reflux disease, esophagitis presence not specified K21.9 ; DM (diabetes mellitus) with complications E11.8 ; Hyperlipidemia, unspecified hyperlipidemia type E78.5 and Other complicated headache syndrome G44.[address] 22717- 6545 Jun, [place] [address] 23548- 8745 Jun, [place] [address] 61631- 8769 Aug, [address] 19355- 8568 Jun, IMMUNIZATIONS No Known Immunizations SOCIAL HISTORY Never Assessed REASON FOR VISIT [facility] ER follow up on the , neck pain, headache, dizziness, blurry vision.- 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 states [facility] did an CT that was negative., c/o diarrhea PLAN OF CARE Activity Details Follow Up 3 Months, prn Reason:CHM/DM VITAL SIGNS Height 62 in 2017-08-18 Weight 195.4 lbs 2017-08-18 Temperature 98.6 degrees Fahrenheit 2017-08-18 Heart Rate 83 bpm 2017-08-18 Respiratory Rate 20 2017-08-18 BMI 35.74 kg/m2 2017-08-18 Blood pressure systolic 138 mmHg 2017-08-18 Blood pressure diastolic 70 mmHg 2017-08-18 MEDICATIONS Medication Instructions Dosage Frequency Start Date End Date Duration Status Metoprolol Tartrate 25 MG Orally Twice a day 1 tablet with food 12h 90 days Active Potassium Chloride ER 10 meq Orally Twice a day TAKE ONE TABLET BY MOUTH TWICE A DAY WITH FOOD 12h 90 Active BD Pen Needle Mini U/F 31 gauge USE ONCE DAILY WITH INSULIN PENS 90 Active Pantoprazole Sodium 20 mg Orally 2 times a day 1 tablets 12h 24 May, 2016 90 days Active OneTouch Verio - TEST BLOOD SUGAR THREE TIMES A DAY E11.8 30 Active Senna S 8.6-50 MG Orally twice a day 1 tablet 12h 10 Jul, 2018 90 days Active Levemir Flexpen 100 UNIT/ML Subcutaneous 2 times a day 35 units 12h 12 months Active One Touch/One Touch II Starter 1 glucometer subcutaneously 3 times a day to take blood sugars daily Dispense as insurance allows 8h Sep, Active Onglyza 5 mg Orally Once a day 1 tablet 24h 90 days Active Diltiazem HCl ER 120 MG Orally Once a day 1 capsule on an empty stomach in the morning 24h 90 days Active MetFORMIN HCl ER 750 MG Orally twice a day 1 tablet with meals 12h 90 days Active Walker - as directed Jan, Active Ergocalciferol 55784 UNIT Orally once weekly 1 capsule July, 16 Sep, 2017 8 weeks Active Plavix 75 MG Orally Once a day 1 tablet 24h 90 days Active Famotidine 20 mg Orally Twice a day 1 tablet 12h Apr, 90 days Active Hydrochlorothiazide 25 MG Orally Once a day 1 tablet 24h 90 days Active Test strips 8h Active Hydrocodone-Acetaminophen 10-325 MG Orally every 6 hrs 1 tablet as needed 6h July, Aug, 28 days Active Xanax 1 MG Orally 4 times a day 1 tablet 6h 28 days Active Baclofen 20 mg Orally 2 times a day if needed 1 tablet with food or milk Feb, Oct, 30 day(s) Active Naproxen 500 mg Orally bid prn 1 tablet Sep, 90 days Active OneTouch Delica Lancets 33G 33 TEST BLOOD SUGAR THREE TIMES A DAY E11.8 Active Pen Irene 31 gauge subcutaneously twice a day DX: E11.8 as directed Active ASA Oral Once a day 1 tab 24h Active Lancets - Active Bath/Shower Seat 1 please provide one adult shower seat for patient use one time shower/bath seat for bathing Dec, Active Atorvastatin Calcium 80 MG Orally Once a day 1 tablet 24h 90 days Active Humalog 100 UNIT/ML Subcutaneous 3 times a day 10 units with meals 8h July, 12 months Active RESULTS No Results PROCEDURES Procedure Date Ordered Result Body Site [facility] VISIT ESTABLISHED PATIENT August 18, 2017 INSTRUCTIONS MEDICATIONS ADMINISTERED No Known Medications MEDICAL (GENERAL) HISTORY Type Description Date Medical History diabetes mellitus Medical History hyperlipidemia Medical History hypertension Medical History Anxiety disorder Medical History Blood Clotting Disorder- Dr Galvan at [facility] Medical History Possible Anemia (currently under work up) - Dr Galvan [facility] Medical History irregular heart [...] Has been hospitalized at then transfered to [place]. 2014 Hospitalization History Child Hospitalization History abd pain and shakiness - [facility] ED visit [facility] [place] Hospitalization History [facility] ED for URI 04/16/17 Hospitalization History via [facility] er 08/16/17
--- OUTSIDE RECORDS SUMMARY | 2017-11-24 21:39 | XMS REPORT ---
Author Author GAYEMICHAELSOTERO Organization [facility] Address [address] [place] [address] Care Team Providers Care Assistant Production Editor Name Role Phone HUIZARSOTERO Cox Unavailable PROBLEMS Type Condition ICD9-CM Code TAD52-WR Code Onset Dates Condition Status SNOMED Code Problem Tobacco abuse Z72.0 Active 325287080 Problem Seasonal allergic rhinitis due to pollen J30.1 Active 29463670 Problem Tobacco abuse counseling Z71.6 Active 278885782 Problem Abnormal drug screen R89.2 Active 991377020 Problem Acute non intractable tension-type headache G44.209 Active 413347222 Problem halfway current use of insulin Z79.4 Active 549135220 Problem History of CVA with residual deficit I69.30 Active 368742288 Problem Chronic pain syndrome G89.4 Active 950535575 Problem Type 2 diabetes mellitus with hyperglycemia E11.65 Active 94693643 Problem Elevated liver enzymes R74.8 Active 565849442 Problem Generalized anxiety disorder F41.1 Active 63867917 Problem Vitamin D deficiency E55.9 Active 98098338 Problem Major depressive disorder, recurrent episode, moderate F33.1 Active 103472338 Problem Hyperlipidemia, unspecified hyperlipidemia type E78.5 Active 77967966 Problem Gastroesophageal reflux disease, esophagitis presence not specified K21.9 Active 498456375 Problem 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 Active 184548648 Problem Essential hypertension I10 Active 07900078 Problem 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 Active 44523573 Problem Other chronic pain G89.29 Active 40971504 ALLERGIES Substance Reaction Event Type Date Status Penicillin V Potassium Unknown Drug Allergy July, Active Erythromycin Base Unknown Drug Allergy July, Active Codeine Unknown Drug Allergy July, Active ENCOUNTERS Encounter Location Date Diagnosis [facility] [address] [facility] [id number] [address] Oct, [facility] [address] [place] [id number] [place] [address] 28254- 0395 Oct, [facility] [id number] [place] [address] 84718 -9125 Oct, [facility] [id number] [place] [address] 18671 -0051 Oct, Dysuria R30.0 and Acute cystitis with hematuria N30.01 [facility] [address] 27934- 5030 Oct, [facility] [id number] [place] [address] 66688- 2048 Oct, [facility] [id number] [place] [address] 27691- 3975 Oct, Controlled substance agreement broken Z91.14 ; Violation of controlled substance agreement Z91.14 ; Other chronic pain G89.29 and Generalized anxiety disorder F41.1 [facility] [id number] [place] [address] 08632- 2904 Oct, [facility] [id number] [place] [address] 44148- 1698 Oct, [facility] [id number] [place] [address] 09624- 0016 Sep, Abscess L02.91 [facility] [id number] [place] [address] 67281- 2027 Sep, [facility] [id number] [place] [address] 57127- 8565 Sep, DM (diabetes mellitus) with complications E11.8 ; Generalized anxiety disorder F41.1 and Chronic pain syndrome G89.4 [place] [address] 96940- 4207 Sep, Generalized anxiety disorder F41.1 ; Chronic pain syndrome G89.4 ; Abnormal drug screen R89.2 and Other chest pain R07.89 [place] [address] [place] [address] 3[address] Aug, Dysuria R30.0 [facility] [address] 41863- 5593 Aug, Generalized anxiety disorder F41.1 ; Chronic pain syndrome G89.4 and Dysuria R30.0 [facility] [address] 84534- 0982 Aug, Acute cystitis with hematuria N30.01 and Candidal dermatitis B37.2 [facility] [address] 13503- 9949 Aug, Dysuria R30.0 [facility] [address] 16259- 2872 Aug, [facility] [address] 69277 -4850 Aug, Dysuria R30.0 [facility] [address] 50912- 5889 Aug, [facility] [address] 31924- 1237 July, Cervicalgia M54.2 ; Acute non intractable tension-type headache G44.209 ; Type 2 diabetes mellitus with hyperglycemia E11.65 and exterminator current use of insulin Z79.4 [facility] [id number] [place] [address] 25579- 8429 July, Generalized anxiety disorder F41.1 and Chronic pain syndrome G89.4 [facility] [id number] [place] [address] 73002- 3243 July, Abscess L02.91 [facility] [address] 02830- 6794 July, [facility] [id number] [place] [address] 79395- 0586 July, [facility] [address] 23014- 0854 July, Type 2 diabetes mellitus with hyperglycemia E11.65 ; exterminator current use of insulin Z79.4 ; [...] pain syndrome G89.4 and Vaginal candidiasis B37.3 [place] [address] 90714- 2867 Jun, Generalized anxiety disorder F41.1 and Other chronic pain G89.29 [place] [address] 91715- 9051 Jun, [facility] [address] 53150- 0666 Jun, [facility] [address] 10797- 4372 Jun, Abnormal levels of other serum enzymes R74.8 [facility] [address] 55575- 3509 Jun, Abnormal levels of other serum enzymes R74.8 [facility] [address] 62290- 2226 Jun, Elevated liver enzymes R74.8 [facility] [address] 80628- 3470 Jun, Elevated liver enzymes R74.8 [facility] [place] [address] 91515- 2649 May, Right upper quadrant pain R10.11 ; Cervicalgia M54.2 and High risk medication use Z79.899 [facility] [place] [address] [place] [address]- 9206 May, Generalized anxiety disorder F41.1 and Other chronic pain G89.29 [facility] [address] 56426- 1884 May, Canker sores oral K12.0 [facility] [address] 88278- 0736 May, Generalized anxiety disorder F41.1 and Other chronic pain G89.29 [facility] [id number] [place] [address] 26883- 4873 May, [facility] [address] 23931- 9932 Apr, [facility] [address] 44873 -9529 Apr, Acute cystitis with hematuria N30.01 and Dysuria R30.0 [facility] [id number] [place] [address] 40447- 7886 Apr, [facility] [id number] [place] [address] 52726- 9565 Apr, [facility] [id number] [place] [address] 63624- 6792 Apr, DM (diabetes mellitus) with complications E11.8 [facility] [id number] [place] [address] 56711- 3064 Apr, DM (diabetes mellitus) with complications E11.8 [facility] [id number] [place] [address] 24719- 0506 Apr, [facility] [id number] [place] [address] 28744- 9937 Apr, [facility] [id number] [place] [address] 86381- 8601 Apr, Other chronic pain G89.29 ; Generalized anxiety disorder F41.1 ; Cervicalgia M54.2 and Controlled substance agreement signed Z79.899 [facility] [id number] [place] [address] 11881 -6752 Mar, Abdominal pain R10.9 and Viral gastroenteritis A08.4 [facility] [place] [address] 30750- 6391 Mar, [facility] [place] [address] 07102- 1234 Mar, [facility] [place] [address] 89771- 9737 Mar, DM (diabetes mellitus) with complications E11.8 [...] not specified K21.9 and 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 [facility] [id number] [place] [address] 69491- 0325 Mar, [facility] [place] [id number] [place] [address] 88716- 9247 Mar, DM (diabetes mellitus) with complications E11.8 ; Abnormal lung sounds R09.89 ; Bronchitis J40 and Hyperlipidemia, unspecified hyperlipidemia type E78.5 [facility] [id number] [place] [address] 27898 -8323 Mar, URI, acute J06.[address] 84906- 0403 Mar, [facility] [id number] [place] [address] 53543- 1003 Mar, DM (diabetes mellitus) with complications E11.8 [facility] [place] [address] 20173- 7711 Mar, Other chronic pain G89.29 and Generalized anxiety disorder F41.1 [facility] [address] 59350- 7172 Feb, [facility] [address] 90315- 4299 Feb, Mass of left lung R91.8 and Cervicalgia M54.2 [facility] [address] 01950- 2263 Feb, [place] [address] 35675- 5237 Feb, [facility] [place] [address] 52358 -4555 Feb, Cough R05 and Bronchitis J40 [facility] [place] [address] 93814 -6543 07 Feb, 2017 Acute nasopharyngitis J00 and Bronchitis J40 [place] [address] 47902- 2609 Feb, Other chronic pain G89.29 and Generalized anxiety disorder F41.1 [place] [address] 29700- 0742 Jan, Encounter for immunization Z23 [facility] [address] 67542 -3918 Jan, [facility] [address] 83132 -0002 Jan, [place] [address] 37250- 0800 16 Jan, 2017 Canker sores oral K12.0 [place] [address] 42690- 6790 14 Jan, 2017 [place] [address] 92720- 4631 Jan, Other chronic pain G89.29 and Generalized anxiety disorder F41.1 [place] [address] 72025- 3143 Jan, Cough R05 and Bronchitis J40 [facility] [address] 08251 -2016 Jan, Bronchitis J40 [place] [address] 63494- 8982 Dec, Vitamin D deficiency E55.[address] 10409- 0336 Dec, DM (diabetes mellitus) with complications E11.[address] 33280- 0658 Dec, DM (diabetes mellitus) with complications E11.8 and Vitamin D deficiency E55.9 [place] [address] 97653- 5884 Dec, DM (diabetes mellitus) with complications E11.8 ; Essential hypertension I10 ; Hyperlipidemia, unspecified hyperlipidemia type E78.5 ; Vitamin D deficiency E55.9 ; Gastroesophageal reflux disease, esophagitis presence not specified K21.9 ; 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 ; Other chronic pain G89.29 ; Encounter for immunization Z23 and Generalized anxiety disorder F41.1 [place] [address] 58587- 4818 Nov, History of CVA with residual deficit I69.[address] 74045- 5080 Nov, DM (diabetes mellitus) with complications E11.8 [place] [address] 20168- 6072 06 Nov, 2016 Left otitis media with effusion H65.92 ; Bronchitis J40 and Canker sores oral K12.[address] 64981- 1344 Oct, [facility] [id number] [place] [address] 72755- 1140 Oct, DM (diabetes mellitus) with complications E11.8 [facility] [id number] [place] [address] 59176- 7159 Oct, [facility] [id number] [place] [address] 40907- 7369 Sep, DM (diabetes mellitus) with complications E11.8 [facility] [id number] [place] [address] 31758- 0168 Sep, DM (diabetes mellitus) with complications E11.8 ; Essential hypertension I10 ; Gastroesophageal reflux disease, esophagitis presence not specified K21.9 ; Hyperlipidemia, unspecified hyperlipidemia type E78.5 ; Tobacco abuse Z72.0 ; Vitamin D deficiency E55.9 ; History of CVA with residual deficit I69.30 and Seasonal allergic rhinitis due to pollen J30.1 [facility] [id number] [place] [address] 18099- 6862 Sep, [address] 31973- 6082 Aug, [facility] [id number] [place] [address] 35881 -6319 Aug, Dysuria R30.0 ; Acute cystitis with hematuria N30.01 and Middle ear effusion, right H65.91 [facility] [place] [id number] [place] [address] 89028- 6340 Aug, Other complicated headache syndrome G44.[address] 77698- 4040 19 Aug, 2016 DM (diabetes mellitus) with complications E11.8 [facility] [id number] [place] [address] 00932- 1117 14 Aug, 2016 Dysuria R30.0 [place] [address] [place] [address]- 5478 Aug, Dysuria R30.0 [facility] [place] [id number] [place] [address] 04375- 4066 Aug, [facility] [id number] [place] [address] 66362- 1883 July, [facility] [place] [id number] [place] [address] 70379- 0515 July, [facility] [id number] [place] [address] 57927- 2229 July, DM (diabetes mellitus) with complications E11.8 [facility] [place] [id number] [place] [address] 68013- 5928 July, Other complicated headache syndrome G44.59 [facility] [place] [id number] [place] [address] 71102- 3863 July, [facility] [id number] [place] [address] 26839 -7329 July, Dysuria R30.0 and Acute cystitis with hematuria N30.01 [facility] [id number] [place] [address] 26837- 5989 July, [facility] [id number] [place] [address] 31147- 7309 July, Other complicated headache syndrome G44.59 [facility] [id number] [place] [address] 79783 -2964 Jun, Exposure to strep throat Z20.818 and Acute upper respiratory infection, unspecified J06.9 [facility] [id number] [place] [address] 03958- 6262 Jun, [facility] [id number] [place] [address] 74450- 1772 Jun, DM (diabetes mellitus) with complications E11.8 and Gastroesophageal reflux disease, esophagitis presence not specified K21.9 [place] [address] [address]- 6098 Jun, [facility] [id number] [place] [address] 07770- 4215 Jun, Dizziness R42 [facility] [id number] [place] [address] 30264 -2997 Jun, [facility] [address] 22988- 6777 Jun, [facility] [id number] [place] [address] 55988 -0825 May, Seasonal allergic rhinitis, unspecified allergic rhinitis trigger J30.2 [facility] [id number] [place] [address] 68374- 9303 May, [facility] [id number] [place] [address] 51489- 7937 May, DM (diabetes mellitus) with complications E11.8 [...] Seasonal allergic rhinitis due to pollen J30.1 [facility] [address] [place] [address] 94872- 3896 May, Gastroesophageal reflux disease, esophagitis presence not specified K21.9 [facility] [address] [place] [address] 14691- 1204 May, [facility] [id number] [place] [address] 38932- 4395 Apr, [facility] [id number] [place] [address] 64382- 8871 Apr, [facility] [id number] [place] [address] 74509- 4297 Mar, [facility] [address] [place] [address] 60593- 2673 Mar, [facility] [id number] [place] [address] 40876- 3007 Mar, [facility] [id number] [place] [address] 64570- 7608 Mar, [facility] [id number] [place] [address] 33019- 7840 Feb, [facility] [id number] [place] [address] 25181- 5361 Feb, [facility] [id number] [place] [address] 44855- 6496 Feb, [facility] [id number] [place] [address] 19337- 3297 Feb, Major depressive disorder, recurrent episode, moderate F33.1 ; Generalized anxiety disorder F41.1 ; Essential hypertension I10 ; DM ( diabetes mellitus) with complications E11.8 ; Hyperlipidemia, unspecified hyperlipidemia type E78.5 ; 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 and Gastroesophageal reflux disease, esophagitis presence not specified K21.9 [facility] [address] [place] [address] 05432 -6613 Feb, Other viral agents as the cause of diseases classified elsewhere B97.89 and Acute upper respiratory infection, unspecified J06.9 [facility] [address] [address]- 6709 Jan, [facility] [id number] [place] [address] 56204- 6374 Jan, [facility] [address] [place] [address] 50043 -0384 Jan, Acute bronchitis, unspecified organism J20.9 [facility] [id number] [place] [address] 31884- 7316 Jan, [place] [address] [address]- 1302 Jan, History of CVA with residual deficit I69.30 [place] [address] [place] [address] 36187- 0813 Jan, [place] [id number] [place] [address] 35331- 0587 Jan, Acute bronchitis, unspecified organism J20.9 [place] [id number] [place] [address] 62947- 1872 Jan, [facility] [id number] [place] [address] 34141- 3420 Dec, History of CVA with residual deficit I69.30 [place] [id number] [place] [address] 35205- 6471 Dec, [place] [id number] [place] [address] 29887- 6812 Dec, Other chronic pain G89.29 ; DM (diabetes mellitus) with complications E11.8 and History of CVA with residual deficit I69.30 [place] [address] [place] [address] 01585- 0046 Nov, Major depressive disorder, recurrent episode, moderate F33.1 ; Irregular heart rhythm I49.9 ; Essential hypertension I10 ; History of CVA with residual deficit I69.30 ; DM (diabetes mellitus) with complications E11.8 ; Gastroesophageal reflux disease, esophagitis presence not specified K21.9 ; Hyperlipidemia, unspecified hyperlipidemia type E78.5 ; 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 ; Other chronic pain G89.29 and Generalized anxiety disorder F41.1 [place] [address] [place] [address] 65745- 7257 Oct, Generalized anxiety disorder F41.1 ; Major depressive disorder, recurrent episode, moderate F33.1 ; Essential hypertension I10 ; History of CVA with residual deficit I69.30 ; DM (diabetes mellitus) with complications E11.8 ; Gastroesophageal reflux disease, esophagitis presence not specified K21.9 ; Hyperlipidemia, unspecified hyperlipidemia type E78.5 ; Other chronic pain G89.29 and Bacterial conjunctivitis of left eye H10.9 [place] [address] [id number] [place] [address]- 7788 Sep, Chronic pain syndrome G89.4 and DM (diabetes mellitus) with complications E11.8 [place] [address] [place] [id number]- 1968 Sep, Irregular heart rhythm I49.9 ; Routine health maintenance Z00.00 ; Essential hypertension I10 ; History of CVA with residual deficit I69.30 ; Gastroesophageal reflux disease, esophagitis presence not specified K21.9 ; DM (diabetes mellitus) with complications E11.8 ; Hyperlipidemia, unspecified hyperlipidemia type E78.5 and Other complicated headache syndrome G44.59 [place] [address] 16102- 6862 Jun, [place] [address] 45391- 9609 Jun, [place] [address] 39370- 1058 Aug, [place] [address] [place] [id number]- 1876 Jun, IMMUNIZATIONS No Known Immunizations SOCIAL HISTORY Never Assessed REASON FOR VISIT ekaterina guevara ma, right underarm, c/o green and blood colored drainage PLAN OF CARE Activity Details Follow Up 3 Months, prn Reason:chm VITAL SIGNS Height 62 in 2017-08-09 Weight 198.4 lbs 2017-08-09 Temperature 97.7 degrees Fahrenheit 2017-08-09 Heart Rate 98 bpm 2017-08-09 Respiratory Rate 20 2017-08-09 BMI 36.28 kg/m2 2017-08-09 Blood pressure systolic 124 mmHg 2017-08-09 Blood pressure diastolic 80 mmHg 2017-08-09 MEDICATIONS Medication Instructions Dosage Frequency Start Date End Date Duration Status Pen Sneads 31 gauge subcutaneously twice a day DX: E11.8 as directed Active Senna S 8.6-50 MG Orally twice a day 1 tablet 12h 10 Jul, 2018 90 days Active Plavix 75 MG Orally Once a day 1 tablet 24h 90 days Active Diltiazem HCl ER 120 MG Orally Once a day 1 capsule on an empty stomach in the morning 24h 90 days Active Ergocalciferol 89425 UNIT Orally once weekly 1 capsule July, Sep, 8 weeks Active Test strips 8h Active MetFORMIN HCl ER 750 MG Orally twice a day 1 tablet with meals 12h 90 days Active BD Pen Needle Mini U/F 31 gauge USE ONCE DAILY WITH INSULIN PENS 90 Active Levemir Flexpen 100 UNIT/ML Subcutaneous 2 times a day 35 units 12h 12 months Active Lancets - Active Xanax 1 MG Orally 4 times a day 1 tablet 6h Active One Touch/One Touch II Starter 1 glucometer subcutaneously 3 times a day to take blood sugars daily Dispense as insurance allows 8h Sep, Active Carafate 1 GM Orally Twice a day 1 tablet on an empty stomach 12h May, Not-Taking Baclofen 20 mg Orally 2 times a day if needed 1 tablet with food or milk Feb, Oct, 30 day(s) Active Metoprolol Tartrate 25 MG Orally Twice a day 1 tablet with food 12h 90 days Active Hydrochlorothiazide 25 MG Orally Once a day 1 tablet 24h 90 days Active Onglyza 5 mg Orally Once a day 1 tablet 24h 90 days Active Naproxen 500 mg Orally bid prn 1 tablet Sep, 90 days Active Hydrocodone-Acetaminophen 10-325 MG Orally every 6 hrs 1 tablet as needed 6h Jun, Active Pantoprazole Sodium 20 mg Orally 2 times a day 1 tablets 12h May, 90 days Active Famotidine 20 mg Orally Twice a day 1 tablet 12h Apr, 90 days Active ASA Oral Once a day 1 tab 24h Active Walker - as directed Jan, Active Clindamycin HCl 300 MG Orally 2 times a day 1 capsule 12h July, Aug, 10 days Active Atorvastatin Calcium 80 MG Orally Once a day 1 tablet 24h 90 days Active Bath/Shower Seat 1 please provide one adult shower seat for patient use one time shower/bath seat for bathing Dec, Active Potassium Chloride ER 10 meq Orally Twice a day TAKE ONE TABLET BY MOUTH TWICE A DAY WITH FOOD 12h 90 Active OneTouch Delica Lancets 33G 33 TEST BLOOD SUGAR THREE TIMES A DAY E11.8 Active OneTouch Verio - TEST BLOOD SUGAR THREE TIMES A DAY E11.8 30 Active RESULTS No Results PROCEDURES Procedure Date Ordered Result Body Site [facility] VISIT ESTABLISHED PATIENT August 09, 2017 INSTRUCTIONS MEDICATIONS ADMINISTERED No Known Medications MEDICAL (GENERAL) HISTORY Type Description Date Medical History diabetes mellitus Medical History hyperlipidemia Medical History hypertension Medical History Anxiety disorder Medical History Blood Clotting Disorder- Dr Galvan at [facility] Medical History Possible Anemia (currently under work up) - Dr Galvan [facility] Medical History irregular heart beat-sees dr. hassan Medical History history of pancreatitis Medical History gerd Medical History History of CVA with residual deficit Medical History Other complicated headache syndrome Medical History Stokes syndrome Surgical History tubal ligation Surgical History section Surgical History cholecystectomy Surgical History Toe Nail Removal x2 Hospitalization History Brain Stem Strokes x5. Has been hospitalized at then transfered to [place]. 2014 Hospitalization History Child Hospitalization History abd pain and shakiness - [facility] ED visit [facility] Hospitalization History [facility] ED for URI 04/16/17 Hospitalization History [facility] 08/16/17
--- OUTSIDE RECORDS SUMMARY | 2017-11-24 21:39 | XMS REPORT ---
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 Name Role Phone HUIZARMICHAEL CoxELE Unavailable PROBLEMS Type Condition ICD9-CM Code [id number] Code Onset Dates Condition Status SNOMED Code Problem Tobacco abuse Z72.0 Active 004012845 Problem Seasonal allergic rhinitis due to pollen J30.1 Active 73914156 Problem Tobacco abuse counseling Z71.6 Active 698779473 Problem Abnormal drug screen R89.2 Active 898757518 Problem Acute non intractable tension-type headache G44.209 Active 534000881 Problem [facility] current use of insulin Z79.4 Active 275934461 Problem History of CVA with residual deficit I69.30 Active 082665736 Problem Chronic pain syndrome G89.4 Active 414197750 Problem Type 2 diabetes mellitus with hyperglycemia E11.65 Active 53798734 Problem Elevated liver enzymes R74.8 Active 481895713 Problem Generalized anxiety disorder F41.1 Active 26670372 Problem Vitamin D deficiency E55.9 Active 83309501 Problem Major depressive disorder, recurrent episode, moderate F33.1 Active 840030465 Problem Hyperlipidemia, unspecified hyperlipidemia type E78.5 Active 82685877 Problem Gastroesophageal reflux disease, esophagitis presence not specified K21.9 Active 093566817 Problem 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 [id number] [address] Oct, [facility] [id number] [address] Oct, [facility] [address] [address] Oct, [facility] [id number] [place] [address]21 -3115 Oct, Dysuria R30.0 and Acute cystitis with hematuria N30.01 [facility] [id number] [place] [address] 29028- 8241 Oct, [facility] [id number] [place] [address] 17974- 5056 Oct, [facility] [id number] [place] [address] 59450- 5101 Oct, Controlled substance agreement broken Z91.14 ; Violation of controlled substance agreement Z91.14 ; Other chronic pain G89.29 and Generalized anxiety disorder F41.1 [facility] [id number] [place] [address] 50113- 2036 Oct, [facility] [id number] [place] [address] 24456- 8180 Oct, [facility] [id number] [place] [address] 26595- 3507 Sep, Abscess L02.91 [facility] [id number] [place] [address] 50898- 0105 Sep, [facility] [id number] [place] [address] 92258- 8918 Sep, DM (diabetes mellitus) with complications E11.8 ; Generalized anxiety disorder F41.1 and Chronic pain syndrome G89.4 [facility] [id number] [place] [address] 92063- 7094 Sep, Generalized anxiety disorder F41.1 ; Chronic pain syndrome G89.4 ; Abnormal drug screen R89.2 and Other chest pain R07.89 [facility] [id number] [place] [address] 87126- 1729 Aug, Dysuria R30.0 [facility] [id number] [place] [address] 18667- 7471 Aug, Generalized anxiety disorder F41.1 ; Chronic pain syndrome G89.4 and Dysuria R30.0 [place] [id number] [place] [address] 68657- 8294 Aug, Acute cystitis with hematuria N30.01 and Candidal dermatitis B37.2 [facility] [id number] [place] [address] 27587- 6777 Aug, Dysuria R30.0 [facility] [id number] [place] [address] 13250- 4923 Aug, [facility] [id number] [place] [address] 52553 -7357 Aug, Dysuria R30.0 [facility] [id number] [place] [address] 36990- 9750 Aug, [place] [id number] [place] [address] 40323- 3251 July, Cervicalgia M54.2 ; Acute non intractable tension-type headache G44.209 ; Type 2 diabetes mellitus with hyperglycemia E11.65 and 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 current 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 of insulin Z79.4 [place] [id number] [place] [address] 35171- 3845 July, Generalized anxiety disorder F41.1 and Chronic pain syndrome G89.4 [place] [id number] [place] [address] 56561- 5820 July, Abscess L02.91 [place] [id number] [place] [address] 03833- 9025 July, [place] [id number] [place] [address] 69377- 5966 July, [facility] [id number] [place] [address] 47511- 1137 July, Type 2 diabetes mellitus with hyperglycemia E11.65 ; 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 current use of insulin Z79.4 ; [...] pain syndrome G89.4 and Vaginal candidiasis B37.3 [place] [address] 76478- 0175 Jun, Generalized anxiety disorder F41.1 and Other chronic pain G89.29 [place] [address] 92694- 2042 Jun, [place] [address] 63047- 7490 Jun, [place] [address] 67923- 3924 Jun, Abnormal levels of other serum enzymes R74.8 [place] [address] 42774- 3174 Jun, Abnormal levels of other serum enzymes R74.8 [place] [address] 13239- 5798 Jun, Elevated liver enzymes R74.8 [place] [address] 73553- 8601 Jun, Elevated liver enzymes R74.8 [place] [address] 67852- 7907 May, Right upper quadrant pain R10.11 ; Cervicalgia M54.2 and High risk medication use Z79.899 [place] [id number] [place] [address] 77641- 7287 May, Generalized anxiety disorder F41.1 and Other chronic pain G89.29 [facility] [id number] [place] [address] 15884- 5846 May, Canker sores oral K12.0 [facility] [address] 35867- 0997 May, Generalized anxiety disorder F41.1 and Other chronic pain G89.29 [facility] [address] 75254- 5479 May, [facility] [address] 58892- 6088 Apr, [facility] [address] 94931 -6357 Apr, Acute cystitis with hematuria N30.01 and Dysuria R30.0 [place] [address] 57105- 7466 Apr, [facility] [address] 69232- 9402 Apr, [facility] [address] 29885- 1477 Apr, DM (diabetes mellitus) with complications E11.8 [place] [address] 02776- 7254 06 Apr, 2017 DM (diabetes mellitus) with complications E11.8 [place] [address] 43332- 4564 Apr, [facility] [id number] [place] [address] 73981- 6541 Apr, [facility] [address] 02720- 3599 Apr, Other chronic pain G89.29 ; Generalized anxiety disorder F41.1 ; Cervicalgia M54.2 and Controlled substance agreement signed Z79.899 [facility] [address] 67698 [address]93 Mar, Abdominal pain R10.9 and Viral gastroenteritis A08.4 [place] [address] 42890- 7112 Mar, [facility] [address] 04858- 7539 Mar, [place] [address] 60405- 0230 Mar, DM (diabetes mellitus) with complications E11.8 [...] not specified K21.9 and 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 [place] [address] 97025- 4514 Mar, [place] [address] 42951- 2187 Mar, DM (diabetes mellitus) with complications E11.8 ; Abnormal lung sounds R09.89 ; Bronchitis J40 and Hyperlipidemia, unspecified hyperlipidemia type E78.5 [facility] [address] 08601 -1908 Mar, URI, acute J06.9 [facility] [id number] [place] [address] 43258- 6386 Mar, [place] [address] 70949- 1295 Mar, DM (diabetes mellitus) with complications E11.8 [facility] [address] 50498- 8771 Mar, Other chronic pain G89.29 and Generalized anxiety disorder F41.1 [facility] [address] 45766- 9414 Feb, [facility] [address] 60825- 3903 Feb, Mass of left lung R91.8 and Cervicalgia M54.2 [place] [address] 82057- 5795 Feb, [facility] [address] 69410- 8946 Feb, [facility] [address] 13401 [address]3105 Feb, Cough R05 and Bronchitis J40 [facility] [place] [address] 098[address]3205 07 Feb, 2017 Acute nasopharyngitis J00 and Bronchitis J40 [place] [address] 12356- 9243 06 Feb, 2017 Other chronic pain G89.29 and Generalized anxiety disorder F41.1 [place] [address] 84020- 7930 Jan, Encounter for immunization Z23 [facility] [place] [address] 8[address] -9321 Jan, [facility] [place] [address] [address]1975 18 Jan, 2017 [facility] [address] 05124- 0945 16 Jan, 2017 Canker sores oral K12.0 [place] [address] 80850- 6856 14 Jan, 2017 [place] [address] 36[address]- 1982 07 Jan, 2017 Other chronic pain G89.29 and Generalized anxiety disorder F41.1 [place] [address] 99895- 2177 Jan, Cough R05 and Bronchitis J40 [facility] [address] 73799 -6514 Jan, Bronchitis J40 [facility] [address] 07175- 3245 Dec, Vitamin D deficiency E55.9 [place] [address] 37615- 3436 Dec, DM (diabetes mellitus) with complications E11.8 [place] [address] 57286- 9194 Dec, DM (diabetes mellitus) with complications E11.8 and Vitamin D deficiency E55.9 [place] [address] 28944- 3507 Dec, DM (diabetes mellitus) with complications E11.8 ; Essential hypertension I10 ; Hyperlipidemia, unspecified hyperlipidemia type E78.5 ; Vitamin D deficiency E55.9 ; Gastroesophageal reflux disease, esophagitis presence not specified K21.9 ; 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 ; Other chronic pain G89.29 ; Encounter for immunization Z23 and Generalized anxiety disorder F41.1 [place] [address] 61952- 0567 Nov, History of CVA with residual deficit I69.30 [place] [address] 99305- 8108 Nov, DM (diabetes mellitus) with complications E11.8 [place] [address] 99412- 8974 06 Nov, 2016 Left otitis media with effusion H65.92 ; Bronchitis J40 and Canker sores oral K12.0 [place] [address] 10004- 7441 Oct, [place] [address] 44504- 7876 04 Oct, 2016 DM (diabetes mellitus) with complications E11.8 [place] [id number] [place] [address] 71877- 2471 02 Oct, 2016 [facility] [id number] [place] [address] 63136- 4435 17 Sep, 2016 DM (diabetes mellitus) with complications E11.8 [place] [id number] [place] [address] 92005- 0350 11 Sep, 2016 DM (diabetes mellitus) with complications E11.8 ; Essential hypertension I10 ; Gastroesophageal reflux disease, esophagitis presence not specified K21.9 ; Hyperlipidemia, unspecified hyperlipidemia type E78.5 ; Tobacco abuse Z72.0 ; Vitamin D deficiency E55.9 ; History of CVA with residual deficit I69.30 and Seasonal allergic rhinitis due to pollen J30.1 [place] [id number] [place] [address] 57974- 6421 Sep, [place] [id number] [place] [address] 05587- 9275 30 Aug, 2016 [facility] [id number] [place] [address] 52674 -5792 Aug, Dysuria R30.0 ; Acute cystitis with hematuria N30.01 and Middle ear effusion, right H65.91 [place] [id number] [place] [address] 83762- 7333 Aug, Other complicated headache syndrome G44.59 [place] [id number] [place] [address] 20967- 7559 19 Aug, 2016 DM (diabetes mellitus) with complications E11.8 [place] [id number] [place] [address] 10005- 7706 14 Aug, 2016 Dysuria R30.0 [place] [id number] [place] [address] 95312- 3851 12 Aug, 2016 Dysuria R30.0 [place] [address] [place] [address]- 3298 Aug, [facility] [id number] [place] [address] 24686- 2012 July, [facility] [id number] [place] [address] 25726- 6306 July, [facility] [id number] [place] [address] 99171- 0153 July, DM (diabetes mellitus) with complications E11.8 [facility] [id number] [place] [address] 04077- 2090 July, Other complicated headache syndrome G44.59 [place] [id number] [place] [address] 44241- 1087 July, [facility] [id number] [place] [address] 53504 -5087 July, Dysuria R30.0 and Acute cystitis with hematuria N30.01 [facility] [id number] [place] [address] 59138- 5292 July, [facility] [id number] [place] [address] 83667- 4558 July, Other complicated headache syndrome G44.59 [facility] [id number] [place] [address] 41794 -9055 Jun, Exposure to strep throat Z20.818 and Acute upper respiratory infection, unspecified J06.9 [facility] [address] [address]00 Jun, [facility] [id number] [place] [address] 68966- 0691 Jun, DM (diabetes mellitus) with complications E11.8 and Gastroesophageal reflux disease, esophagitis presence not specified K21.9 [facility] [address] [place] [address] 39954- 7533 Jun, [facility] [id number] [place] [address] 02473- 4347 11 Jun, 2016 Dizziness R42 [facility] [id number] [place] [address] 78096 -4613 Jun, [facility] [id number] [place] [address] 88425- 7734 Jun, [facility] [address] 14743 -9122 May, Seasonal allergic rhinitis, unspecified allergic rhinitis trigger J30.2 [facility] [id number] [place] [address] 44754- 3141 May, [facility] [id number] [place] [address] 59836- 8010 May, DM (diabetes mellitus) with complications E11.8 [...] allergic rhinitis due to pollen J30.1 [facility] [id number] [place] [address] 14729- 3959 May, Gastroesophageal reflux disease, esophagitis presence not specified K21.9 [facility] [id number] [place] [address] 93705- 8054 May, [facility] [id number] [place] [address] 32216- 4846 Apr, [facility] [id number] [place] [address] 28975- 3986 Apr, [facility] [id number] [place] [address] 35395- 5174 Mar, [facility] [id number] [place] [address] 55585- 3004 Mar, [facility] [address] [address]- 6770 Mar, [facility] [id number] [place] [address] 70449- 0847 Mar, [facility] [id number] [place] [address] 42306- 6871 Feb, [facility] [id number] [place] [address] 49724- 1364 Feb, [facility] [id number] [place] [address] 66546- 2199 Feb, [place] [id number] [place] [address] 76320- 5232 Feb, Major depressive disorder, recurrent episode, moderate F33.1 ; Generalized anxiety disorder F41.1 ; Essential hypertension I10 ; DM ( diabetes mellitus) with complications E11.8 ; Hyperlipidemia, unspecified hyperlipidemia type E78.5 ; 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 and Gastroesophageal reflux disease, esophagitis presence not specified K21.9 [facility] [id number] [place] [address] 48965 -6489 Feb, Other viral agents as the cause of diseases classified elsewhere B97.89 and Acute upper respiratory infection, unspecified J06.9 [facility] [address] [place] [address] 82503- 8260 Jan, [facility] [id number] [place] [address] 16653- 6263 Jan, [facility] [id number] [place] [address] 88011 -1472 Jan, Acute bronchitis, unspecified organism J20.9 [facility] [address] [place] [address] 50428- 3910 Jan, [facility] [id number] [place] [address] 16656- 6754 Jan, History of CVA with residual deficit I69.30 [place] [address] [address]- 2272 Jan, [place] [id number] [place] [address] 10857- 7367 Jan, Acute bronchitis, unspecified organism J20.9 [place] [id number] [place] [address] 29656- 8328 Jan, [place] [id number] [place] [address] 78728- 2449 Dec, History of CVA with residual deficit I69.30 [place] [id number] [place] [address] 79460- 6806 Dec, [place] [id number] [place] [address] 57248- 9401 Dec, Other chronic pain G89.29 ; DM (diabetes mellitus) with complications E11.8 and History of CVA with residual deficit I69.30 [place] [id number] [place] [address] 24943- 3220 Nov, Major depressive disorder, recurrent episode, moderate F33.1 ; Irregular heart rhythm I49.9 ; Essential hypertension I10 ; History of CVA with residual deficit I69.30 ; DM (diabetes mellitus) with complications E11.8 ; Gastroesophageal reflux disease, esophagitis presence not specified K21.9 ; Hyperlipidemia, unspecified hyperlipidemia type E78.5 ; 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 ; Other chronic pain G89.29 and Generalized anxiety disorder F41.1 [place] [address] [address]- 3148 Oct, Generalized anxiety disorder F41.1 ; Major depressive disorder, recurrent episode, moderate F33.1 ; Essential hypertension I10 ; History of CVA with residual deficit I69.30 ; DM (diabetes mellitus) with complications E11.8 ; Gastroesophageal reflux disease, esophagitis presence not specified K21.9 ; Hyperlipidemia, unspecified hyperlipidemia type E78.5 ; Other chronic pain G89.29 and Bacterial conjunctivitis of left eye H10.[address] [place] [address] 82503- 1132 Sep, Chronic pain syndrome G89.4 and DM (diabetes mellitus) with complications E11.8 [address] [place] [address] 27670- 6101 Sep, Irregular heart rhythm I49.9 ; Routine health maintenance Z00.00 ; Essential hypertension I10 ; History of CVA with residual deficit I69.30 ; Gastroesophageal reflux disease, esophagitis presence not specified K21.9 ; DM (diabetes mellitus) with complications E11.8 ; Hyperlipidemia, unspecified hyperlipidemia type E78.5 and Other complicated headache syndrome G44.59 [place] [id number] [place] [address] 91661- 5622 Jun, [place] [id number] [place] [address] 57076- 9444 Jun, [place] [id number] [place] [address] 66841- 8703 Aug, [place] [id number] [place] [address] 08441- 8878 Jun, IMMUNIZATIONS No Known Immunizations SOCIAL HISTORY [...] History Blood Clotting Disorder- Dr Galvan at [facility] Medical History Possible Anemia (currently under work up) - Dr Galvan [facility] Medical History irregular heart beat-sees dr. hassan Medical History history of pancreatitis Medical History gerd Medical History History of CVA with residual deficit Medical History Other complicated headache syndrome Medical History Stokes syndrome Surgical History tubal ligation Surgical History section Surgical History cholecystectomy Surgical History Toe Nail Removal x2 Hospitalization History Brain Stem Strokes x5. Has been hospitalized at then transfered to [place]. 2015 Hospitalization History Child Hospitalization History abd pain and shakiness - [facility] ED visit [facility] Hospitalization History [facility] ED for URI 04/16/17 Hospitalization History via [facility] er 08/16/17
--- OUTSIDE RECORDS SUMMARY | 2017-11-24 22:20 | XMS REPORT | Continuity of Care Document ---
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 06/30/2016 ADINA HUDSON MDELAN Ot 424.0 MITRAL VALVE DISORDER 06/30/2016 SULEMA [...] CISNEROS MD Ot 530.81 ESOPHAGEAL REFLUX 06/30/2016 APSTOR CISNEROS MD Ot 553.3 DIAPHRAGMATIC HERNIA 06/30/2016 [...] NEWSOME MD Ot 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 06/30/2016 JAOCB NEWSOME MD Ot 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 [...] COMPLIC 06/30/2016 PASTOR CISNEROS MD Ot Z79.4 JAIL (CURRENT) USE OF INSULIN 06/30/2016 PASTOR CISNEROS [...] HYPERLIPIDEMIA, UNSPECIFIED 06/30/2016 GILBERT GOMEZ MD, Ot F17.210 NICOTINE DEPENDENCE, CIGARETTES, UNCOMPL 06/30/2016 GILBERT GOMEZ MD, Ot I10 ESSENTIAL (PRIMARY) HYPERTENSION 06/30/2016 GILBERT GOMEZ MD, Ot Z79.02 JAIL (CURRENT) USE OF ANTITHROMBOTI 06/30/2016 GILBERT GOMEZ MD, Ot Z79.82 ROTOR BLADE INSTALLER (CURRENT) USE OF ASPIRIN 06/30/2016 GILBERT GOMEZ MD, Ot 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) THROMBOCYTHEMIA 06/30/2016 GILBERT GOMEZ MD, Ot D72.829 ELEVATED WHITE BLOOD CELL COUNT, UNSPECI 06/30/2016 GILBERT GOMEZ MD, Ot E78.5 HYPERLIPIDEMIA, UNSPECIFIED 06/30/2016 GILBERT GOMEZ MD, Ot I10 ESSENTIAL (PRIMARY) HYPERTENSION 06/30/2016 GILBERT GOMEZ MD, Ot 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 06/30/2016 GILBERT GOMEZ MD, Ot I69.998 OTHER SEQUELAE FOLLOWING UNSPECIFIED CER 06/30/2016 GILBERT GOMEZ MD, Ot M62.81 MUSCLE WEAKNESS (GENERALIZED) 06/30/2016 GILBERT GOMEZ MD Ot R00.0 TACHYCARDIA, UNSPECIFIED 06/30/2016 GILBERT GOMEZ MD, Ot Z79.899 OTHER JAIL (CURRENT) DRUG THERAPY 07/09/2016 GILBERT GOMEZ MD, Ot 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) THROMBOCYTHEMIA 07/09/2016 GILBERT GOMEZ MD, Ot D72.829 ELEVATED WHITE BLOOD CELL COUNT, UNSPECI 07/09/2016 GILBERT GOMEZ MD, Ot E78.5 HYPERLIPIDEMIA, UNSPECIFIED 07/09/2016 GILBERT GOMEZ MD Ot I10 ESSENTIAL (PRIMARY) HYPERTENSION 07/09/2016 GILBERT GOMEZ MD, Ot 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 07/09/2016 GILBERT GOMEZ MD, Ot I69.998 OTHER SEQUELAE FOLLOWING UNSPECIFIED CER 07/09/2016 JASON MD, GILBERT K Ot M62.81 MUSCLE WEAKNESS (GENERALIZED) 07/09/2016 GILBERT GOMEZ MD Ot R00.0 TACHYCARDIA, UNSPECIFIED 07/09/2016 GILBERT GOMEZ MD Ot Z79.899 OTHER JAIL (CURRENT) DRUG THERAPY 08/02/2016 GILBERT GOMEZ MD [...] GROSS HEMATURIA 08/16/2016 PRISCILLA HUNT Ot Z79.02 JAIL (CURRENT) USE OF ANTITHROMBOTI 08/16/2016 PRISCILLA HUNT Ot Z79.82 ROTOR BLADE INSTALLER (CURRENT) USE OF ASPIRIN 08/16/2016 PRISCILLA HUNT Ot Z79.899 OTHER ROTOR BLADE INSTALLER (CURRENT) DRUG THERAPY 08/19/2016 PRISCILLA HUNT Ot E11.9 TYPE 2 DIABETES MELLITUS WITHOUT COMPLIC 08/19/2016 PRISCILLA HUNT Ot F17.210 NICOTINE DEPENDENCE, CIGARETTES, UNCOMPL 08/19/2016 PRISCILLA HUNT Ot I10 ESSENTIAL (PRIMARY) HYPERTENSION 08/19/2016 PRISCILLA HUNT Ot N30.01 ACUTE CYSTITIS WITH HEMATURIA 08/19/2016 PRISCILLA HUNT Ot R31.0 GROSS HEMATURIA 08/19/2016 PRISCILLA HUNT Ot Z79.02 ROTOR BLADE INSTALLER (CURRENT) USE OF ANTITHROMBOTI 08/19/2016 PRISCILLA HUNT Ot Z79.82 JAIL (CURRENT) USE OF ASPIRIN 08/19/2016 PRISCILLA HUNT L Ot Z79.899 OTHER JAIL (CURRENT) DRUG THERAPY 09/03/2016 GILBERT GOMEZ MD [...] Ot R00.0 TACHYCARDIA, UNSPECIFIED 09/12/2016 GILBERT GOMEZ MD, Ot Z79.899 OTHER JAIL (CURRENT) DRUG THERAPY 11/09/2016 AKBAR EVANS MD [...] GIDDINESS 11/09/2016 AKBAR EVANS MD, Ot Z79.82 ROTOR BLADE INSTALLER (CURRENT) USE OF ASPIRIN 11/09/2016 AKBAR EVANS [...] Z98.51 TUBAL LIGATION STATUS 11/11/2016 AKBAR EVANS MD Ot E11.65 TYPE 2 DIABETES MELLITUS WITH HYPERGLYCE 11/11/2016 AKBAR EVANS MD Ot E87.8 OTH DISORDERS OF ELECTROLYTE AND FLUID B 11/11/2016 AKBAR EVANS MD Ot F17.210 NICOTINE DEPENDENCE, CIGARETTES, UNCOMPL 11/11/2016 AKBAR EVANS MD, Ot F41.9 ANXIETY DISORDER, UNSPECIFIED 11/11/2016 AKBAR EVANS MD, Ot I10 ESSENTIAL (PRIMARY) HYPERTENSION 11/11/2016 AKBAR EVANS MD, Ot K21.9 GASTRO-ESOPHAGEAL REFLUX DISEASE WITHOUT 11/11/2016 AKBAR EVANS MD, Ot M19.90 UNSPECIFIED OSTEOARTHRITIS, UNSPECIFIED 11/11/2016 AKBAR EVANS MD, Ot R42 DIZZINESS AND GIDDINESS 11/11/2016 AKBAR EVANS MD, Ot Z79.82 ROTOR BLADE INSTALLER (CURRENT) USE OF ASPIRIN 11/11/2016 AKBAR EVANS MD Ot Z80.0 FAMILY HISTORY OF MALIGNANT NEOPLASM OF 11/11/2016 AKBAR EVANS MD, Ot Z82.49 FAMILY HX OF ISCHEM HEART DIS AND OTH DI 11/11/2016 AKBAR EVANS MD, Ot Z86.73 PRSNL HX OF TIA (TIA), AND CEREB INFRC W 11/11/2016 AKBAR EVANS MD, Ot Z87.19 PERSONAL HISTORY OF OTHER DISEASES OF TH 11/11/2016 AKBAR EVANS MD Ot Z87.448 PERSONAL HISTORY [...] 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) THROMBOCYTHEMIA 12/02/2016 IGOR ARANA MD Ot D72.829 ELEVATED WHITE BLOOD CELL COUNT, UNSPECI 12/02/2016 IGOR ARANA MD, Ot E78.5 HYPERLIPIDEMIA, UNSPECIFIED 12/02/2016 IGOR ARANA MD Ot I10 ESSENTIAL (PRIMARY) HYPERTENSION 12/02/2016 IGOR ARANA MD Ot 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 12/02/2016 IGOR ARANA MD Ot I69.998 OTHER SEQUELAE FOLLOWING UNSPECIFIED CER 12/02/2016 IGOR ARANA MD Ot M62.81 MUSCLE WEAKNESS (GENERALIZED) 12/02/2016 IGOR ARANA MD Ot R00.0 TACHYCARDIA, UNSPECIFIED 12/02/2016 IGOR ARANA MD Ot Z79.899 OTHER ROTOR BLADE INSTALLER (CURRENT) DRUG THERAPY 12/21/2016 IGOR ARANA MD Ot 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) THROMBOCYTHEMIA 12/21/2016 IGOR ARANA MD Ot D72.829 ELEVATED WHITE [...] 12/21/2016 IGOR ARANA MD Ot Z79.899 OTHER ROTOR BLADE INSTALLER (CURRENT) DRUG THERAPY 02/11/2017 IGOR ARANA MD, Ot 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) THROMBOCYTHEMIA 02/11/2017 IGOR ARANA MD, Ot D72.829 ELEVATED WHITE BLOOD CELL COUNT, UNSPECI 02/11/2017 IGOR ARANA MD, Ot E78.5 HYPERLIPIDEMIA, UNSPECIFIED 02/11/2017 IGOR ARANA MD, Ot I10 ESSENTIAL (PRIMARY) HYPERTENSION 02/11/2017 IGOR ARANA MD Ot 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 02/11/2017 IGOR ARANA MD, Ot I69.998 OTHER SEQUELAE FOLLOWING UNSPECIFIED CER 02/11/2017 IGOR ARANA MD, Ot M62.81 MUSCLE WEAKNESS (GENERALIZED) 02/11/2017 IGOR ARANA MD, Ot R00.0 TACHYCARDIA, UNSPECIFIED 02/11/2017 IGOR ARANA MD, Ot Z79.899 OTHER ROTOR BLADE INSTALLER (CURRENT) DRUG THERAPY 03/12/2017 PRISCILLA HUNT Ot [...] ABD REGION 03/12/2017 PRISCILLA HUNT Ot Z79.82 JAIL (CURRENT) USE OF ASPIRIN 03/12/2017 PRISCILLA HUNT [...] I10 ESSENTIAL (PRIMARY) HYPERTENSION 03/20/2017 IGOR ARANA MD Ot 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 03/20/2017 IGOR ARANA MD, Ot I69.998 OTHER SEQUELAE FOLLOWING UNSPECIFIED CER 03/20/2017 IGOR ARANA MD Ot M62.81 MUSCLE WEAKNESS (GENERALIZED) 03/20/2017 IGOR ARANA MD Ot R00.0 TACHYCARDIA, UNSPECIFIED 03/20/2017 IGOR ARANA MD, Ot Z79.899 OTHER ROTOR BLADE INSTALLER (CURRENT) DRUG THERAPY 03/24/2017 PRISCILLA HUNT Ot [...] ABD REGION 03/24/2017 PRISCILLA HUNT Ot Z79.82 ROTOR BLADE INSTALLER (CURRENT) USE OF ASPIRIN 03/24/2017 PRISCILLA HUNT [...] GIDDINESS 04/09/2017 AKBAR EVANS MD Ot Z79.82 ROTOR BLADE INSTALLER (CURRENT) USE OF ASPIRIN 04/09/2017 AKBAR EVANS MD Ot Z80.0 FAMILY HISTORY OF MALIGNANT NEOPLASM OF 04/09/2017 AKBAR EVANS MD, Ot Z82.49 FAMILY HX OF ISCHEM HEART DIS AND OTH DI 04/09/2017 AKBAR EVANS MD Ot Z86.73 PRSNL HX OF TIA (TIA), AND CEREB INFRC W 04/09/2017 AKBAR EVANS MD Ot Z87.19 PERSONAL HISTORY OF OTHER DISEASES [...] PLEURODYNIA 04/17/2017 GWEN RAMOS MD Ot Z79.01 ROTOR BLADE INSTALLER (CURRENT) USE OF ANTICOAGULANT 04/17/2017 GWEN RAMOS MD Ot Z79.82 JAIL (CURRENT) USE OF ASPIRIN 04/17/2017 GWEN RAMOS MD, Ot Z82.49 FAMILY HX OF ISCHEM [...] PLEURODYNIA 04/18/2017 GWEN RAMOS MD Ot Z79.01 JAIL (CURRENT) USE OF ANTICOAGULANT 04/18/2017 GWEN RAMOS MD Ot Z79.82 JAIL (CURRENT) USE OF ASPIRIN 04/18/2017 GWEN RAMOS [...] J44.9 CHRONIC OBSTRUCTIVE PULMONARY DISEASE, U 05/09/2017 HIPOLITOLIDIA GALARZAINE Shefali WIRE REPAIRER Ot R91.1 SOLITARY PULMONARY NODULE 05/09/2017 LIDIA MCMILLANINE Shefali WIRE REPAIRER Ot J30.2 OTHER SEASONAL ALLERGIC RHINITIS 05/09/2017 LIDIA MCMILLANINE Shefali WIRE REPAIRER Ot J44.9 CHRONIC OBSTRUCTIVE PULMONARY DISEASE, U 05/09/2017 HIPOLITOLIDIA GALARZAINE Shefali WIRE REPAIRER Ot R91.1 SOLITARY PULMONARY NODULE 06/13/2017 LIDIA MCMILLANINE Shefali WIRE REPAIRER Ot J30.2 OTHER SEASONAL ALLERGIC RHINITIS 06/13/2017 HIPOLITO, MIRELLA Shefali WIRE REPAIRER Ot J44.9 CHRONIC OBSTRUCTIVE PULMONARY DISEASE, U 06/13/2017 HIPOLITOLIDIA GALARZAINE Shefali WIRE REPAIRER Ot R91.1 SOLITARY PULMONARY NODULE 06/24/2017 SOTERO HUIZAR APRN Ot K43.9 VENTRAL HERNIA WITHOUT OBSTRUCTION OR GA 06/24/2017 SOTERO HUIZAR WIRE REPAIRER Ot R16.0 HEPATOMEGALY, NOT ELSEWHERE CLASSIFIED 06/29/2017 SOTERO HUIZAR APRN Ot K43.9 VENTRAL HERNIA WITHOUT OBSTRUCTION OR GA 06/29/2017 SOTERO HUIZAR WIRE REPAIRER Ot R16.0 HEPATOMEGALY, NOT ELSEWHERE CLASSIFIED 07/09/2017 [...] 07/09/2017 IGOR ARANA MD Ot Z79.899 OTHER JAIL (CURRENT) DRUG THERAPY 07/14/2017 SOTERO HUIZAR APRN Ot K43.9 VENTRAL HERNIA WITHOUT OBSTRUCTION OR GA 07/14/2017 SOTERO HUIZAR WIRE REPAIRER Ot R16.0 HEPATOMEGALY, NOT ELSEWHERE CLASSIFIED 08/16/2017 [...] HEADACHE 08/16/2017 THELMA FARAH APRN Ot Z79.02 ROTOR BLADE INSTALLER (CURRENT) USE OF ANTITHROMBOTI 08/16/2017 THELMA FARAH APRN Ot Z79.82 ROTOR BLADE INSTALLER (CURRENT) USE OF ASPIRIN 08/16/2017 THELMA FARAH [...] TYPE 2 DIABETES MELLITUS WITHOUT COMPLIC 08/18/2017 THELMA FARAH APRN Ot F41.9 ANXIETY DISORDER, UNSPECIFIED 08/18/2017 THELMA [...] HEADACHE 08/18/2017 THELMA FARAH APRN Ot Z79.02 JAIL (CURRENT) USE OF ANTITHROMBOTI 08/18/2017 THELMA FARAH APRN Ot Z79.82 ROTOR BLADE INSTALLER (CURRENT) USE OF ASPIRIN 08/18/2017 THELMA FARAH [...] PAIN 09/15/2017 JULIENNE CLEVELAND MD Ot Z79.02 ROTOR BLADE INSTALLER (CURRENT) USE OF ANTITHROMBOTI 09/15/2017 JULIENNE CLEVELAND MD Ot Z79.82 JAIL (CURRENT) USE OF ASPIRIN 09/15/2017 JULIENNE CLEVELAND [...] WITHOUT OBSTRUCTION OR GA 09/27/2017 SOTERO HUIZAR APRN Ot R16.0 HEPATOMEGALY, NOT ELSEWHERE CLASSIFIED 09/29/2017 Ot 368.9 VISUAL DISTURBANCE NOS 09/29/2017 Ot 401.9 HYPERTENSION NOS 09/29/2017 Ot 435.9 TRANS CEREB ISCHEMIA NOS 09/29/2017 Ot 780.39 OTHER CONVULSIONS 09/29/2017 Ot 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 09/29/2017 Ot 794.8 ABN LIVER FUNCTION STUDY 09/29/2017 Ot 368.9 VISUAL DISTURBANCE NOS 09/29/2017 Ot 780.2 SYNCOPE AND COLLAPSE 09/29/2017 Ot 780.79 OTH MALAISE FATIGUE 09/29/2017 Ot 786.2 COUGH 09/29/2017 Ot 786.50 CHEST PAIN NOS 09/29/2017 AMELIA WRIGHT, PASTOR Blank Ot 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 09/29/2017 PASTOR CISNEROS MD Ot 783.1 ABNORMAL WEIGHT GAIN 09/29/2017 PASTOR CISNEROS MD Ot 787.3 FLATUL/ERUCTAT/GAS PAIN 09/29/2017 AMELIA WRIGHT, PASTOR Blank Ot 789.09 ABDOMINAL PAIN, OTHER SPECIFIED SITE 09/29/2017 AMELIA WRIGHT, PASTOR Blank Ot 789.1 HEPATOMEGALY 09/29/2017 AMELIA WRIGHT, PASTOR Blank Ot 723.1 CERVICALGIA 09/29/2017 AMELIA WRIGHT, PASTOR Blank Ot 729.5 PAIN IN LIMB 09/29/2017 AMELIA WRIGHT, PASTOR Blank Ot 719.40 JOINT PAIN-UNSPEC 09/29/2017 AMELIA WRIGHT, PASTOR Blank Ot 780.79 OTH MALAISE FATIGUE 09/29/2017 AMELIA WRIGHT, PASTOR Blank Ot 782.3 EDEMA 09/29/2017 AMELIA WRIGHT, PASTOR Blank Ot 785.0 TACHYCARDIA NOS 09/29/2017 AMELIA WRIGHT, PASTOR Blank Ot 719.40 JOINT PAIN-UNSPEC 09/29/2017 AMELIA WRIGHT, PASTOR Blank Ot 780.79 OTH MALAISE FATIGUE 09/29/2017 AMELIA WRIGHT, PASTOR Blank Ot 782.3 EDEMA 09/29/2017 AMELIA WRIGHT, PASTOR Blank Ot 785.0 TACHYCARDIA NOS 09/29/2017 AMELIA WRIGHT, PASTOR Blank Ot 305.1 TOBACCO USE DISORDER 09/29/2017 AMELIA WRIGHT, PASTOR Blank Ot 401.9 HYPERTENSION NOS 09/29/2017 AMELIA WRIGHT, PASTOR Blank Ot 428.0 CONGESTIVE HEART FAILURE NOS 09/29/2017 AMELIA WRIGHT, PASTOR Blank Ot 782.3 EDEMA 09/29/2017 AMELIA WRIGHT, PASTOR Blank Ot 785.0 TACHYCARDIA NOS 09/29/2017 AMELIA WRIGHT, PASTOR Blank Ot 786.50 CHEST PAIN NOS 09/29/2017 TRISTAN WRIGHT, SULEMA Ot 397.0 TRICUSPID VALVE DISEASE 09/29/2017 SULEMA HUDSON MD Ot 401.9 HYPERTENSION NOS 09/29/2017 SULEMA HUDSON MD Ot 424.0 MITRAL VALVE DISORDER 09/29/2017 TRISTAN WRIGHT, SULEMA Ot 786.50 CHEST PAIN NOS 09/29/2017 SULEMA HUDSON MD Ot 401.9 HYPERTENSION NOS 09/29/2017 TRISTAN WRIGHT, SULEMA Ot 786.50 CHEST PAIN NOS 09/29/2017 PASTOR [...] 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 09/29/2017 JACOB NEWSOME MD F Ot 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 09/29/2017 JACOB NEWSOME MD Ot 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 09/29/2017 GERRY WRIGHT, YUKO Blank Ot I10 ESSENTIAL (PRIMARY) HYPERTENSION 09/29/2017 YUKO GARRETT MD Ot R00.2 PALPITATIONS 09/29/2017 YUKO GARRETT MD Ot R06.02 SHORTNESS OF BREATH 09/29/2017 YUKO GARRETT MD Ot R07.89 OTHER CHEST PAIN 09/29/2017 PASTOR CISNEROS MD Ot E11.9 TYPE 2 DIABETES MELLITUS WITHOUT COMPLIC 09/29/2017 PASTOR CISNEROS MD Ot Z79.4 JAIL (CURRENT) USE OF INSULIN 09/29/2017 PASTOR CISNEROS [...] MD Ot D68.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 09/29/2017 GILBERT GOMEZ MD Ot D72.829 ELEVATED WHITE BLOOD CELL COUNT, UNSPECI 09/29/2017 GILBERT GOMEZ MD Ot E78.5 HYPERLIPIDEMIA, UNSPECIFIED 09/29/2017 GILBERT GOMEZ MD Ot F17.210 NICOTINE DEPENDENCE, CIGARETTES, UNCOMPL 09/29/2017 GILBERT GOMEZ MD Ot I10 ESSENTIAL (PRIMARY) HYPERTENSION 09/29/2017 GILBERT GOMEZ MD Ot Z79.02 ROTOR BLADE INSTALLER (CURRENT) USE OF ANTITHROMBOTI 09/29/2017 GILBERT GOMEZ MD, Ot Z79.82 ROTOR BLADE INSTALLER (CURRENT) USE OF ASPIRIN 09/29/2017 GILBERT GOMEZ [...] 09/29/2017 IGOR ARANA MD Ot Z79.899 OTHER JAIL (CURRENT) DRUG THERAPY 09/29/2017 MIRELLA MCMILLAN APRN Ot J43.8 OTHER EMPHYSEMA 09/29/2017 MIRELLA MCMILLAN APRN Ot R91.1 SOLITARY PULMONARY NODULE 09/29/2017 HIPOLITO, MIRELLA E WIRE REPAIRER Ot Z72.0 TOBACCO USE 09/29/2017 MIRELLA MCMILLAN WIRE REPAIRER Ot J30.2 OTHER SEASONAL ALLERGIC RHINITIS 09/29/2017 MIRELLA MCMILLAN WIRE REPAIRER Ot J44.9 CHRONIC OBSTRUCTIVE PULMONARY DISEASE, U 09/29/2017 MIRELLA MCMILLAN WIRE REPAIRER Ot R91.1 SOLITARY PULMONARY NODULE 09/29/2017 HUIZARSOTERO Cox WIRE REPAIRER Ot K43.9 VENTRAL HERNIA WITHOUT OBSTRUCTION OR GA 09/29/2017 HUIZARSOTERO Cox WIRE REPAIRER Ot R16.0 HEPATOMEGALY, NOT ELSEWHERE CLASSIFIED 10/04/2017 GERRY WRIGHT, YUKO Blank Ot I10 ESSENTIAL (PRIMARY) HYPERTENSION 10/04/2017 YUKO GARRETT MD Ot J44.9 CHRONIC OBSTRUCTIVE PULMONARY DISEASE, U 10/04/2017 YUKO GARRETT MD Ot K21.9 GASTRO-ESOPHAGEAL REFLUX DISEASE WITHOUT 10/04/2017 YUKO GARRETT MD Ot R07.9 CHEST PAIN, UNSPECIFIED 10/08/2017 MIRELLA MCMILLAN WIRE REPAIRER Ot J43.8 OTHER EMPHYSEMA 10/08/2017 MIRELLA MCMILLAN WIRE REPAIRER Ot R91.1 SOLITARY PULMONARY NODULE 10/08/2017 MIRELLA MCMILLAN WIRE REPAIRER Ot Z72.0 TOBACCO USE 10/18/2017 MIRELLA MCMILLAN WIRE REPAIRER Ot J30.2 OTHER SEASONAL ALLERGIC RHINITIS 10/18/2017 MIRELLA MCMILLAN WIRE REPAIRER Ot J44.9 CHRONIC OBSTRUCTIVE PULMONARY DISEASE, U 10/18/2017 MIRELLA MCMILLAN WIRE REPAIRER Ot R91.1 SOLITARY PULMONARY NODULE 11/04/2017 AMELIA WRIGHT, PASTOR Blank Ot E11.9 TYPE 2 DIABETES MELLITUS WITHOUT COMPLIC 11/04/2017 AMELIA WRIGHT, PASTOR Blank Ot E66.9 OBESITY, UNSPECIFIED 11/04/2017 PASTOR CISNEROS MD Ot I73.9 PERIPHERAL VASCULAR DISEASE, UNSPECIFIED 11/04/2017 PASTOR CISNEROS MD Ot Z86.73 PRSNL HX OF TIA (TIA), AND CEREB INFRC W 11/04/2017 IGOR ARANA MD Ot 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) THROMBOCYTHEMIA 11/04/2017 IGOR ARANA MD Ot D72.829 ELEVATED WHITE BLOOD CELL COUNT, UNSPECI 11/04/2017 IGOR ARANA MD Ot E78.5 HYPERLIPIDEMIA, UNSPECIFIED 11/04/2017 IGOR ARANA MD Ot I10 ESSENTIAL (PRIMARY) HYPERTENSION 11/04/2017 IGOR ARANA MD Ot 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 11/04/2017 IGOR ARANA MD Ot I69.998 OTHER SEQUELAE FOLLOWING UNSPECIFIED CER 11/04/2017 IGOR ARANA MD Ot M62.81 MUSCLE WEAKNESS (GENERALIZED) 11/04/2017 IGOR ARANA MD Ot R00.0 TACHYCARDIA, UNSPECIFIED 11/04/2017 IGOR ARANA MD Ot Z79.899 OTHER JAIL (CURRENT) DRUG THERAPY 11/06/2017 YUKO GARRETT MD Ot I10 ESSENTIAL (PRIMARY) HYPERTENSION 11/06/2017 GERRY WRGIHT, YUKO Blank Ot J44.9 CHRONIC OBSTRUCTIVE PULMONARY DISEASE, U 11/06/2017 GERRY WRIGHT, YUKO Blank Ot K21.9 GASTRO-ESOPHAGEAL REFLUX DISEASE WITHOUT 11/06/2017 YUKO GARRETT MD Ot R07.9 CHEST PAIN, UNSPECIFIED 11/07/2017 ASIF WRIGHT, BILLY Baeza Ot E11.9 TYPE 2 DIABETES MELLITUS WITHOUT COMPLIC 11/07/2017 ASIF WRIGHT, BILLY Baeza Ot E78.00 PURE HYPERCHOLESTEROLEMIA, UNSPECIFIED 11/07/2017 ASIF WRIGHT, BILLY Baeza Ot F17.210 NICOTINE DEPENDENCE, CIGARETTES, UNCOMPL 11/07/2017 ASIF WRIGHT, BILLY Baeza Ot F41.9 ANXIETY DISORDER, UNSPECIFIED 11/07/2017 ASIF WRIGHT, BILLY Baeza Ot G43.909 MIGRAINE, UNSP, NOT INTRACTABLE, WITHOUT 11/07/2017 ASIF WRIGHT, BILLY Baeza Ot I10 ESSENTIAL (PRIMARY) HYPERTENSION 11/07/2017 ASIF WRIGHT, BILLY Baeza Ot K21.9 GASTRO-ESOPHAGEAL REFLUX DISEASE WITHOUT 11/07/2017 BILLY GOLD MD Ot N39.0 URINARY TRACT INFECTION, SITE NOT SPECIF 11/07/2017 BILLY GOLD MD Ot R31.9 HEMATURIA, UNSPECIFIED 11/07/2017 BILLY GOLD MD Ot Z79.02 JAIL (CURRENT) USE OF ANTITHROMBOTI 11/07/2017 BILLY GOLD MD Ot Z79.82 ROTOR BLADE INSTALLER (CURRENT) USE OF ASPIRIN 11/07/2017 ASIF MD, BILLY S Ot Z80.0 FAMILY HISTORY OF MALIGNANT NEOPLASM OF 11/07/2017 ASIF WRIGHT, BILLY Baeza Ot Z82.49 FAMILY HX OF ISCHEM HEART DIS AND OTH DI 11/07/2017 ASIF WRIGHT, BILLY Baeza Ot Z86.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 HX OF TIA (TIA), AND CEREB INFRC W 11/07/2017 ASIF WRIGHT, BILLY Baeza Ot Z87.440 PERSONAL HISTORY OF URINARY (TRACT) INFE 11/07/2017 ASIF WRIGHT, BILLY Baeza Ot Z87.59 PERSONAL HISTORY OF COMP OF PREG, CHLDBR 11/07/2017 ASIF WRIGHT, BILLY Baeza Ot Z88.0 ALLERGY STATUS TO PENICILLIN 11/07/2017 ASIF WRIGHT, BILLY Baeza Ot Z88.5 ALLERGY STATUS TO NARCOTIC AGENT STATUS 11/07/2017 ASIF WRIGHT, BILLY Baeza Ot Z88.8 ALLERGY STATUS TO OTH DRUG/MEDS/BIOL SUB 11/07/2017 BILLY GOLD MD Ot Z98.51 TUBAL LIGATION STATUS 11/08/2017 MIRELLA MCMILLAN APRN Ot R91.8 OTHER NONSPECIFIC ABNORMAL FINDING OF GIOVANNA 11/08/2017 MIRELLA MCMILLAN APRN Ot Z72.0 TOBACCO USE Procedures There is no data. Results Test [...] Vitamin D, 25-Hydroxy 7.8 ng/mL 30.0-100.0 Thyroid [place] Profile - 03/16/16 11:24 TSH 1.490 uIU/mL [...] culture - 08/16/16 15:00 Bacterial urine culture [id number] NRG COLONY COUNT 10,000/ML - 100,000/ML NRG FTX;REPORTABLE SENSITIVITY REPORTED 08/17 15:50 NRG FREE TEXT ENTRY 2 PLUS, LACTOBACILLUS 10-100,000/ML NRG FREE TEXT ENTRY 3 MIXED GRAM POSITIVE ASHLYN <10,000/ML NR Bacterial susceptibility panel - 08/16/16 15:00 Gentamicin [...] susceptibility test by minimum inhibitory concentration - NR Urine Culture, Routine - 09/13/16 15:39 Urine [...] 0.1 10*3/uL 0.0-0.1 Comprehensive metabolic panel - 12/23/17 12:42 Serum or plasma sodium measurement (moles/volume) [...] 10.8 fL 7.5-12.5 ABSOLUTE NEUTROPHILS 7155 cells/uL 6109-1024 ABSOLUTE LYMPHOCYTES 4211 cells/uL 850-3900 ABSOLUTE MONOCYTES [...] platelet poor plasma (mass/volume) 0.40 ug/mL 0.00-0.49 - PANEL (PROFILE 1) - 09/23/17 11:11 [...] Status Pt. Type Provider Facility Loc./Unit Complaint [id number] 11/04/2017 08:02:00 11/04/2017 09:00:00 DIS Outpatient ASIF WRIGHT, BILLY Baeza [facility] ER HURTS WHEN URINATING [id number] 09/30/2017 12:57:00 09/30/2017 23:59:59 CLS Outpatient YUKO GARRETT MD [facility] CARD CHEST PAIN SYNDROME,GERD ,HTN,COPD [id number] 09/19/2017 13:29:00 09/19/2017 23:59:59 CLS Outpatient YUKO GARRETT MD [facility] CHEST PAIN SYNDROME,GERD ,HTN,COPD [id number] 09/19/2017 13:11:00 09/19/2017 23:59:59 CLS Preadmit YUKO GARRETT MD [facility] CHEST PAIN SYNDROME,GERD ,HTN,COPD [id number] 09/15/2017 09:16:00 09/15/2017 12:28:00 DIS Emergency MEGHA WRIGHT, JULIENNE Mejias [facility] ER CP,STRAIN IN BACK,SOB [id number] 08/16/2017 20:47:00 08/16/2017 21:52:00 DIS Emergency THELMA FARAH WIRE REPAIRER [facility] ER RUSSELL;NECK PAIN [id number] 06/23/2017 06:43:00 06/23/2017 23:59:59 CLS Outpatient SOTERO HUIZAR [employer] RE[employer] [facility] RAD RUQ PAIN [id number] 04/28/2017 09:51:00 04/28/2017 23:59:59 CLS Outpatient MIRELLA MCMILLAN [employer] [facility] RAD R91.1,Z72.0 [id number] 04/27/2017 09:42:00 04/27/2017 23:59:59 CLS Outpatient MIRELLA MCMILLAN [employer] [facility] RT I44.9 COPD [id number] 04/16/2017 22:16:00 04/17/2017 01:15:00 DIS Emergency RICHARD WRIGHT, GWEN Blank [facility] ER CHEST PAIN AND BACK PAIN FROM DRY COUGH [id number] 04/05/2017 09:16:00 04/05/2017 23:59:59 CLS Outpatient MIRELLA MCMILLAN APRN [facility] RAD R91.1 LUNG NODULE [id number] 03/29/2017 10:15:00 03/29/2017 23:59:59 CLS Preadmit SOTERO HUIZAR APRN [facility] RAD LUNG NODULE INCREASING IN SIZE [id number] 03/21/2017 00:21:00 03/21/2017 23:59:59 CLS Preadmit IGOR ARANA MD [facility] ONC [id number] 12/20/2016 15:01:00 03/20/2017 00:01:00 DIS Outpatient IGOR ARANA MD [facility] ONC [id number] 03/12/2017 12:32:00 03/12/2017 16:27:00 DIS Emergency PRISCILLA HUNT [facility] ER ABD PAIN, SHAKY, 4 PREVIOUS BRAIN-STEM FLORES [id number] 11/09/2016 20:08:00 11/09/2016 23:58:00 DIS Emergency AKBAR EVANS MD [facility] ER DIZZINESS,NAUSEA [id number] 06/29/2016 15:16:00 09/12/2016 00:01:00 DIS Outpatient GILBERT GOMEZ MD [facility] ONC [id number] 08/16/2016 13:54:00 08/16/2016 16:50:00 DIS Emergency PRISCILLA HUNT [facility] ER UTI [id number] 07/02/2016 10:14:00 07/02/2016 23:59:59 CLS Outpatient GILBERT GOMEZ MD [facility] RAD HEADACHE,DIZZINESS [id number] 12/18/2015 09:01:00 03/17/2016 00:01:00 DIS Outpatient GILBERT GOMEZ MD [facility] ONC [id number] 09/18/2015 12:52:00 10/29/2015 00:01:00 DIS Outpatient GILBERT GOMEZ MD [facility] ONC [id number] 09/12/2015 20:37:00 2015 01:00:00 DIS Emergency JOSE ADLER DO [facility] ER DIZZINESS [id number] 09/10/2015 01:28:00 09/10/2015 03:57:00 DIS Emergency AKBAR EVANS MD [facility] ER RUSSELL,BLURRY EYES,BLOOD SUGAR HIGH,DIZZY [id number] 07/24/2015 09:02:00 07/24/2015 23:59:59 CLS Outpatient GILBERT GOMEZ MD [facility] ONC [id number] 05/23/2015 23:06:00 05/24/2015 00:31:00 DIS Emergency RONAN SOTO MD [facility] ER FULL BODY TINGLING/ NUMBNESS [id number] 05/22/2015 13:58:00 05/22/2015 16:11:00 DIS Emergency THELMA FARAH APRN [facility] ER DIZZINESS LIPS NUMBNESS [id number] 04/28/2015 11:14:00 04/28/2015 23:59:59 CLS Outpatient PASTOR CISNEROS MD [facility] RAD CALF PAIN,HEADACHES, DIABETES [id number] 03/28/2015 22:08:00 03/28/2015 23:59:59 CLS Emergency JOSE ADLER DO [facility] ER DIZZINESS,FACIAL NUMBNESS [id number] 03/24/2015 10:00:00 03/24/2015 23:59:59 CLS Preadmit PASTOR CISNEROS MD [facility] DSME TYPE 2 DIABETES [id number] 12/23/2014 17:00:00 03/23/2015 00:01:00 DIS Outpatient PASTOR CISNEROS MD [facility] DSME TYPE 2 DIABETES [id number] 03/21/2015 10:24:00 03/21/2015 23:59:59 CLS Outpatient PASTOR CISNEROS MD [facility] LAB TYPE 2 DIABETES INSULIN DEPENDENT [id number] 01/15/2015 08:11:00 01/15/2015 23:59:59 CLS Outpatient YUKO GARRETT MD [facility] CARD CPS,HTN,PALPITATIONS, SOB [id number] 12/02/2014 10:00:00 12/18/2014 00:01:00 DIS Outpatient PASTOR CISNEROS MD [facility] DSME TYPE 2 DIABETES [id number] 07/25/2014 08:49:00 10/23/2014 00:01:00 DIS Outpatient GILBERT GOMEZ MD [facility] ONC [id number] 08/27/2014 15:20:00 08/27/2014 23:59:59 CLS Outpatient JACOB NEWSOME MD [facility] RAD FOLLOW UP PER RADIOLOGIST [id number] 08/26/2014 12:47:00 08/26/2014 23:59:59 CLS Outpatient JACOB NEWSOME MD [facility] RAD CEREBRAL ATHEROSCLEROSIS [id number] 07/23/2014 20:00:00 07/23/2014 23:59:59 CLS Preadmit YUKO GARRETT MD [facility] SLEEP SNORING,HTN,HX OF STROKE [id number] 07/18/2014 11:36:00 07/18/2014 15:39:00 DIS Emergency AKBAR EVANS MD [facility] ER DIZZINESS,NAUSEA [id number] 06/17/2014 08:15:00 06/17/2014 23:59:59 CLS Outpatient YUKO GARRETT MD [facility] CARD PALPITATIONS SOB HTN [id number] 01/24/2014 08:49:00 04/24/2014 00:01:00 DIS Outpatient GILBERT GOMEZ MD [facility] ONC [id number] 02/13/2014 10:00:00 03/29/2014 16:22:00 DIS Outpatient PASTOR CISNEROS MD [facility] [facility] REHAB CVA [id number] 11/22/2013 09:41:00 01/14/2014 00:01:00 DIS Outpatient PASTOR CISNEROS MD [facility] REH[facility] CVA [id number] 10/25/2013 10:49:00 01/09/2014 00:01:00 DIS Outpatient JASON WRIGHT, GILBERT Esqueda [facility] ONC [id number] 12/18/2013 09:18:00 12/18/2013 23:59:59 CLS Outpatient PASTOR CISNEROS MD [facility] RAD CHOKING,TROUBLE SWALLOWING [id number] 12/14/2013 19:01:00 12/14/2013 20:23:00 DIS Emergency BRITTANY WRIGHT, RONAN Luna [facility] ER CONGESTION [id number] 10/04/2013 13:16:00 10/04/2013 23:59:59 CLS Outpatient PASTOR CISNEROS MD [facility] RAD NEUROLOGICAL CHANGES, RECENT STROKE [id number] 09/24/2013 18:13:00 09/28/2013 13:30:00 DIS Inpatient MICHELLE WRIGHT, SILVIA Meehan [facility] IRF CVA [id number] 09/15/2013 14:10:00 09/18/2013 12:35:00 DIS Outpatient PASTOR CISNEROS MD [facility] SDC VERTIGO [id number] 09/07/2013 08:36:00 09/07/2013 23:59:59 CLS Outpatient PASTOR CISNEROS MD [facility] RT SEIZURE TYPE ACTIVITY [id number] 07/03/2013 12:37:00 07/03/2013 23:59:59 CLS Outpatient TRISTAN WRIGHT, SULEMA [facility] CARD CP,HTN [id number] 06/20/2013 08:30:00 06/20/2013 23:59:59 CLS Outpatient PASTOR CISNEROS MD [facility] LAB HYPOGLYCEMIA,FLUXUATING BLOOD SUGAR [id number] 06/08/2013 09:00:00 06/08/2013 23:59:59 CLS Outpatient SULEMA HUDSON MD [facility] CARD CP,HTN [id number] 05/21/2013 14:03:00 05/21/2013 23:59:59 CLS Outpatient PASTOR CISNEROS MD [facility] CARD HYPERTENSION,PERIPHERD EDEMA,SMOKER,CARDIMEGALY,CH [id number] 05/17/2013 21:44:00 05/17/2013 23:59:59 CLS Outpatient PASTOR CISNEROS MD [facility] LAB LIPID PANEL [id number] 05/17/2013 12:24:00 05/17/2013 23:59:59 CLS Outpatient PASTOR CISNEROS MD [facility] LAB EDEMA,FATIGUE,TACHYCARDIA ,JOINT PAIN [id number] 02/02/2013 14:11:00 02/23/2013 10:40:00 DIS Outpatient PASTOR CISNEROS MD [facility] REHAB NECK PAIN, UPPER BACK PAIN RADIATING LEFT SHOULDER [id number] 10/31/2012 14:21:00 10/31/2012 23:59:59 CLS Outpatient PASTOR CISNEROS MD [facility] RAD NECK PAIN,TENDERNESS RADIATING FROM ARM TO BACK OF [id number] 09/04/2012 08:56:00 09/04/2012 23:59:59 CLS Outpatient PASTOR CISNEROS MD [facility] RAD ABD PAIN,BLOATING R. SIDED FIRMNESS [id number] 09/01/2012 09:16:00 09/01/2012 10:45:00 DIS Outpatient PASTOR CISNEROS MD [facility] ABNORMAL MRI OF BRAIN; MULTIPLE SCLEROSIS [id number] 07/18/2012 08:50:00 07/18/2012 23:59:59 CLS Outpatient PASTOR CISNEROS MD [facility] RAD FOLLOW UP ABD MRI [id number] 11/04/2017 08:48:00 Document Registration [id number] 08/26/2014 12:46:00 Document Registration [id number] 05/19/2014 09:39:00 Document Registration [id number] 05/11/2014 19:49:00 Document Registration [id number] 06/26/2012 11:26:00 Document Registration [id number] 05/19/2012 09:58:00 Document Registration [id number] 04/20/2012 12:51:00 Document Registration [id number] 01/04/2012 12:04:00 Document Registration [id number] 12/31/2011 08:48:00 Document Registration [id number] 11/22/2011 22:34:00 Document Registration [id number] 10/08/2011 22:58:00 Document Registration [id number] 10/07/2011 13:12:00 Document Registration [id number] 07/26/2011 14:37:00 Document Registration [id number] 04/05/2011 08:01:00 Document Registration [id number] 02/03/2011 11:11:00 Document Registration [id number] 02/01/2011 11:54:00 Document Registration [id number] 12/08/2010 08:13:00 Document Registration [id number] 08/25/2009 10:44:00 Document Registration [id number] 03/17/2016 18:05:00 Document Registration [id number] 09/15/2016 17:09:00 Document Registration [id number] 10/27/2017 08:40:00 10/27/2017 23:59:59 [facility] SOTERO HUIZAR [facility] [id number] 09/23/2017 09:40:00 Document Registration [id number] 08/26/2017 11:20:00 Document Registration [id number] 08/19/2017 16:05:00 Document Registration [id number] 08/02/2017 08:20:00 Document Registration [id number] 06/23/2017 16:40:00 Document Registration [id number] 06/17/2017 14:40:00 Document Registration [id number] 05/11/2017 14:45:00 Document Registration [id number] 01/06/2017 14:00:00 Document Registration [id number] 01/07/2017 07:05:00 Document Registration [id number] 07/28/2016 19:07:00 Document Registration
== END 2017-11-24 18:08 | disposition home or self-care (01) ==
LOC: EDUNIT# 16:52 → ER 16:54
DX: N39.0 Urinary tract infection, site not specified (principal); R42 Dizziness and giddiness; E78.00 Pure hypercholesterolemia, unspecified; I10 Essential (primary) hypertension; G43.909 Migraine, unspecified, not intractable, without status migrainosus; K21.9 Gastro-esophageal reflux disease without esophagitis; E11.9 Type 2 diabetes mellitus without complications; F41.9 Anxiety disorder, unspecified; Z82.49 Family history of ischemic heart disease and other diseases of the circulatory system; Z80.0 Family history of malignant neoplasm of digestive organs; Z87.19 Personal history of other diseases of the digestive system; Z87.440 Personal history of urinary (tract) infections; Z86.73 Personal history of transient ischemic attack (TIA), and cerebral infarction without residual deficits; Z88.0 Allergy status to penicillin; Z88.5 Allergy status to narcotic agent; Z88.8 Allergy status to other drugs, medicaments and biological substances; Z79.82 Long term (current) use of aspirin; Z79.02 Long term (current) use of antithrombotics/antiplatelets; Z98.51 Tubal ligation status; Z87.59 Personal history of other complications of pregnancy, childbirth and the puerperium
CPT/HCPCS: 36415; 70450; 80053; 81000; 85025; 86618; 86666; 86668; 86757; 87088

== ENCOUNTER → 2017-12-05 | Outpatient (CLI) | payer MEDICARE, MEDICAID ==
[~2017-12-05] MED LIST changes: +ALPR0.25 PO; +CEFU250T80 PO
--- NOTE | 2017-12-05 16:55 | Diagnostic Imaging Report ---
PROCEDURE: CT urinary tract, rule out kidney stone. TECHNIQUE: Multiple contiguous axial images were obtained through the abdomen and pelvis without the use of intravenous contrast. INDICATION: Bilateral flank pain. Recurring urinary tract infections. COMPARISON: 02/01/2011. FINDINGS: Included portions of the lung bases are clear. CT ABDOMEN: No renal or ureter calculi are seen on either side. Additionally, there is no hydroureteronephrosis or other evidence of obstruction. Kidneys have an otherwise unremarkable noncontrast CT appearance. The liver is markedly enlarged and diffusely hypodense consistent with hepatomegaly and hepatic steatosis. Liver measures approximately 22.5 cm in the AP dimension x 26.5 cm transversely x 24 cm in CC dimension. No focal hepatic masses are seen on this noncontrast exam. The spleen, adrenal glands, and pancreas have an unremarkable noncontrast CT appearance. Normal appendix is identified. Small bowel loops are nondistended. There is no loculated fluid collection, free fluid, nor free air within the abdomen. No abnormal mesenteric or retroperitoneal adenopathy is seen. There is imne-hx-jzmqmspa calcified aortic and arterial atherosclerosis. This is greater than expected given patient's age. Bony structures show no acute abnormalities. Fat-containing supraumbilical ventral hernia is noted just to the right lateral midline. Ostium measures approximately 1.[address] PELVIS: Urinary bladder is unopacified and minimally distended. No calculi are seen within the urinary bladder. There is no loculated fluid collection, free fluid, nor free air within the pelvis. No abnormal lymph nodes are identified. Bony structures show no acute abnormalities. IMPRESSION: 1. Unremarkable noncontrast CT of the kidneys and bilateral renal collecting systems. 2. Hepatic steatosis and severe hepatomegaly. 3. Fat-containing ventral hernia. 4. Calcified aortic and arterial atherosclerosis, which is greater than expected given patient's age. Correlation with underlying risk factors is recommended. Dictated by: Dictated on workstation # [id number]
== END ==
LOC: RAD 15:42
PROVIDERS: ATTEND Nurse Practitioner Family
DX: K76.0 Fatty (change of) liver, not elsewhere classified (principal); K43.9 Ventral hernia without obstruction or gangrene; I70.0 Atherosclerosis of aorta; I70.90 Unspecified atherosclerosis; N39.0 Urinary tract infection, site not specified
CPT/HCPCS: 74176

== ENCOUNTER 2017-12-07 16:30 | Emergency (ER) | payer MEDICARE, MEDICAID ==
[~2017-12-07] VITALS: Ht 157.5 cm; Wt 88.9 kg
[~2017-12-07 16:30] MED LIST changes: -ALPR0.25 PO
[2017-12-07 17:36] LABS: BILIRUBIN,URINE NEGATIVE (NEGATIVE); COLOR,URINE YELLOW; GLUCOSE, URINE (UA) 4+ (NEGATIVE); KETONES,URINE NEGATIVE (NEGATIVE); LEUKOCYTE ESTERASE ,URINE 1+ (NEGATIVE); NITRITE,URINE NEGATIVE (NEGATIVE); PH,URINE 6.5 (5-9); PROTEIN,URINE 1+ (NEGATIVE); UROBILINOGEN,URINE NORMAL (NORMAL)
--- NOTE | 2017-12-07 17:39 | ED General ---
General Chief Complaint: General Problems/Pain Stated Complaint: DIZZINESS/NAUSEA Nursing Triage Note: AMB TO ROOM REPORTS HAS HAD A PANIC ATTACT X2 TODAY AND DR AT [facility] WILL NOT REFILL HER XANAX. SHE TAKES XANAX 1MG TID HAS BE OUT FOR 2 DAYS. CALLED [facility] AND THEY WILL NOT FEFILL XANAX. Nursing Sepsis Screen: No Definite Risk History of Present Illness Date Seen by Provider: Dec 07, 2017 Time Seen by Provider: 17:15 Initial Comments 47 year old female reports for ongoing anxiety, she awoke from sleep, having a bad dream and had a panic attack. It last 90 min, then she went back to bed. She had another panic attack, early afternoon. She reports [facility] refuses to give her Xanax because "Hydrocodone doesn't show up on my urine drug screens here or anywhere." Timing/Duration: 12-24 Hours Severity: Mild Associated Systoms: Denies Symptoms Allergies and Home Medications Allergies Coded Allergies: erythromycin base (Unverified Allergy, Mild, 11/11/08) Penicillins (Verified Allergy, Unknown, 11/14/08) codeine (Verified Allergy, Unknown, 11/14/08) nitrofurantoin (Verified Allergy, Unknown, 11/04/17) Home Medications Acetaminophen 325 Mg Tab, 650 MG PO Q4H PRN for mild pain or fever Prescribed by: ERNESTO SY on 09/28/13931 Alprazolam 0.25 Mg Tablet, 0.25 MG PO TID PRN for ANXIETY 1/2 or 1 every 8 hours as needed. Prescribed by: MAGDA MARTINEZ on 12/07/17 184 Aspirin 81 Mg Wilbert., 81 MG PO DAILY, (Reported) Atorvastatin Calcium 80 Mg Tablet, 80 MG PO HS Prescribed by: CELIA ISAACS on 09/24/131849 Bisacodyl 10 Mg Supp, 10 MG OK DAILY PRN for CONSTIPATION Prescribed by: ERNESTO SY on 09/28/13931 Cefuroxime Axetil 250 Mg Tablet, 250 MG PO BID Prescribed by: THELMA FARAH on 11/24/17 180 Clopidogrel Bisulfate 75 Mg Tablet, 1 EACH PO DAILY Prescribed by: CELIA ISAACS on 09/24/131849 Diltiazem Hcl 30 Mg Tab, 30 MG PO Q8HR Prescribed by: ERNESTO SY on 09/28/13 0932 Hydrochlorothiazide 12.5 Mg Cap, 25 MG PO DAILY, (Reported) Hydrocodone Bit/Acetaminophen 1 Each Tablet, 1 EACH PO NEEDED, (Reported) Melatonin/Pyridoxine Hcl (B6) 1 Each Tab.mphase, 1 EACH PO HS, (Reported) Metoprolol Tartrate 25 Mg Tablet, 25 MG PO BID Prescribed by: ERNESTO SY on 09/28/13 0932 Nystatin 60 Ml Btl, 5 ML PO Q6H swish and swallow QID x5 days Prescribed by: THELMA FARAH on 05/11/14 2018 Omeprazole 40 Mg Capsule.dr, 40 MG PO DAILY, (Reported) Ondansetron 4 Mg Tab.rapdis, 4 MG SL Q4H PRN for NAUSEA/VOMITING Prescribed by: AKBAR BARROW on 09/10/15 0349 Ondansetron Hcl 4 Mg Tab, 4 MG SL Q4H FOR NAUSEA AND VOMITING Prescribed by: BLAIR DANIELS on 05/19/14 1128 Polyethylene Glycol 17 Gm Pack, 17 GM PO DAILY PRN for CONSTIPATION Prescribed by: CELIA ISAACS on 09/24/13 1850 Senna 1 Ea Tablet, 1 EA PO BID Prescribed by: ERNESTO SY on 09/28/13 0932 Patient Home Medication List Home Medication List Reviewed: Yes Review of Systems Review of Systems Constitutional: no symptoms reported, see HPI Psychiatric/Neurological: See HPI, Anxiety All Other Systems Reviewed Negative Unless Noted: Yes Past Kgumoti-Wumdfz-Opglmi Hx Past Med/Social Hx: Reviewed Nursing Past Med/Soc Hx Patient Social History Alcohol Use: Denies Use Recreational Drug Use: No Smoking Status: Current Everyday Smoker Type Used: Cigarettes 2nd Hand Smoke Exposure: No Recent Foreign Travel: No Contact w/Someone Who Travel: No Recent Infectious Disease Expo: No Recent Hopitalizations: No Immunizations Up To Date Tetanus Booster (TDap): Unknown PED Vaccines UTD: No Date of Influenza Vaccine: Jan 07, 2017 Seasonal Allergies Seasonal Allergies: No Past Medical History Surgeries: Yes (egd, colonoscopy) Section, Gallbladder, Tubal Ligation Respiratory: No (l lung nodule) Cardiac: Yes High Cholesterol, Hypertension, Irregular Heartbeat Neurological: Yes (r sided numbness r/t previous stroke) Headaches /Migraines, Stroke, Vertigo Reproductive Disorders: Yes Female Reproductive Disorders: Endometriosis [employer]D 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: Tubal Ligation, Menopausal Sexually Transmitted Disease: No Genitourinary: Yes UTI-Chronic Gastrointestinal: Yes Gastroesophageal Reflux, Hiatal Hernia, Gall Bladder Disease Musculoskeletal: Yes Arthritis Endocrine: No Diabetes, Insulin dep HEENT: No Cancer: No Psychosocial: Yes Anxiety Integumentary: No Blood Disorders: Yes ("CLOTTING DISORDER", chronic leukocytosis) Adverse Reaction/Blood Tranf: No Family Medical History Cancer 19 MOTHER (THROAT CANCER) Family history: Hypertension 19 MOTHER History of - disorder G8 SISTER (SISTER HAD MS) Myocardial infarction 19 FATHER 19 MOTHER Stroke 19 MOTHER Heart Disease, Hypertension, Stroke Physical Exam Vital Signs Vital Signs - First Documented 12/07/17 16:52 Temp 96.9 Pulse 88 Resp 18 B/P (MAP) 103/65 (78) Pulse Ox 96 O2 Delivery Room Air Capillary Refill : Less Than 3 Seconds Height, Weight, BMI Height: 5'2.00" Weight: 196lbs. 0.0oz. 88.223767bj; 43.9 BMI Method:Stated General Appearance: No Apparent Distress, WD/WN Eyes: Bilateral Eye Normal Inspection, Bilateral Eye PERRL, Bilateral Eye EOMI HEENT: PERRL/EOMI, TMs Normal, Normal ENT Inspection, Pharynx Normal Neck: Full Range of Motion, Normal Inspection, Non Tender, Supple Respiratory: Chest Non Tender, Lungs Clear, Normal Breath Sounds Cardiovascular: Regular Rate, Rhythm, No Murmur, Normal Peripheral Pulses Gastrointestinal: Normal Bowel Sounds, Non Tender, Soft Extremity: Normal Capillary Refill, Normal Inspection, Normal Range of Motion Neurologic/Psychiatric: Alert, Oriented x3, No Motor/Sensory Deficits, Normal Mood/Affect Skin: Normal Color, Warm/Dry Progress/Results/Core Measures Suspected Sepsis Recent Fever Within 48 Hours: No Infection Criteria Present: None New/Unexplained Altered Menta: No Sepsis Screen: No Definite Risk SIRS Temperature:96.9 Pulse: 88 Respiratory Rate: 18 Blood Pressure 103 /65 Mean: 78 Results/Orders Lab Results Laboratory Tests Test 12/07/17 17:30 Range/Units Urine Color YELLOW Urine Clarity SLIGHTLY CLOUDY Urine pH 6.5 5-9 Urine Specific [place] 1.015 L 1.016-1.022 Urine Protein 1+ H NEGATIVE Urine Glucose (UA) 4+ H NEGATIVE Urine Ketones NEGATIVE NEGATIVE Urine Nitrite NEGATIVE NEGATIVE Urine Bilirubin NEGATIVE NEGATIVE Urine Urobilinogen NORMAL NORMAL MG/DL Urine Leukocyte Esterase 1+ H NEGATIVE Urine RBC (Auto) NEGATIVE NEGATIVE Urine RBC NONE /HPF Urine WBC 2-5 /HPF Urine Squamous Epithelial Cells 10-25 H /HPF Urine Crystals NONE /LPF Urine Bacteria MODERATE H /HPF Urine Casts NONE /LPF Urine Mucus SMALL H /LPF Urine Culture Indicated NO Urine Opiates Screen POSITIVE H NEGATIVE Urine Oxycodone Screen NEGATIVE NEGATIVE Urine Methadone Screen NEGATIVE NEGATIVE Urine Propoxyphene Screen NEGATIVE NEGATIVE Urine Barbiturates Screen NEGATIVE NEGATIVE Ur Tricyclic Antidepressants Screen NEGATIVE NEGATIVE Urine Phencyclidine Screen NEGATIVE NEGATIVE Urine Amphetamines Screen NEGATIVE NEGATIVE Urine Methamphetamines Screen NEGATIVE NEGATIVE Urine Benzodiazepines Screen POSITIVE H NEGATIVE Urine Cocaine Screen NEGATIVE NEGATIVE Urine Cannabinoids Screen NEGATIVE NEGATIVE My Orders Orders - MICHELLE,MAGDA SENIOR BIOSTATISTICIAN/GROUP LEADER Drug Screen Stat (Urine) (12/07/17 17:20) Ua Culture If Indicated (12/07/17 17:20) Vital Signs/I&O 12/07/17 12/07/17 16:52 17:45 Temp 96.9 96.9 Pulse 88 88 Resp 18 18 B/P (MAP) 103/65 (78) 103/65 (78) Pulse Ox 96 96 O2 Delivery Room Air Capillary Refill : Less Than 3 Seconds Blood Pressure Mean: 78 Progress Note : Time: 17:15 Progress Note Patient seen and evaluated, discussed her complaints and recommended a UA with drug screen. 1800 urine drug screen positive for opioids and benzodiazepines. Per [facility], she has narcotic violation on her chart. She was evaluated there on 12/01/17 and no Hydrocodone or Xanax were prescribed, on 12/14/17 she has an appt with mental health at [facility]. On 10/27/17 she was prescribed a 14 day med supply of Xanax and Hydrocodone, to start a weaning process. 1830 long discussion with patient regarding her medication use. She reports that the weaning doses she was given she cut in half so they will have lasted her one month. She declines the need for additional hydrocodone regularly like to continue on a very low dose Xanax for anxiety and panic attacks. She understands the importance of follow-up with mental health next week if she has previously been scheduled for. Discharge instructions and return precautions reviewed with her. Departure Impression Primary Impression: Anxiety attack Disposition: 01 HOME, SELF-CARE Condition: Improved Departure-Patient Inst. Decision time for Depature: 18:15 [address]errals: [facility] (PCP/Family) Primary Care Physician Patient Instructions: Anxiety, Adult (DC) Add. Discharge Instructions: Keep your scheduled appointment for December 14 at 11:[address] Marco DNP Follow-up at [facility] if symptoms are not improving or worsen. Use medication only as directed. Return to emergency department for acute, urgent health care needs. All discharge instructions reviewed with patient and/or family. Voiced understanding. Scripts Alprazolam (Xanax) 0.25 Mg Tablet 0.25 MG PO TID PRN for ANXIETY, #12 TAB 0 Refills 1/2 or 1 every 8 hours as needed. Prov: MAGDA MARTINEZ 12/07/17 MAGDA MARTINEZ Dec 07, 2017 17:39
[2017-12-07 17:45] VITALS: BP 103/65
[2017-12-07 17:45] LABS: BACTERIA,URINE MODERATE /HPF; CLARITY,URINE SLIGHTLY CLOUDY
[2017-12-07 17:48] LABS: BENZODIAZEPINES SCREEN URINE POSITIVE (NEGATIVE); OPIATE SCREEN URINE POSITIVE (NEGATIVE)
[2017-12-07 17:49] LABS: AMPHETAMINE SCREEN, URINE NEGATIVE (NEGATIVE); BARBITURATE SCREEN URINE NEGATIVE (NEGATIVE); CANNABINOID SCREEN, URINE NEGATIVE (NEGATIVE); COCAINE SCREEN URINE NEGATIVE (NEGATIVE); METHADONE STAT NEGATIVE (NEGATIVE); METHAMPHETAMINE SCREEN URINE S NEGATIVE (NEGATIVE); OXYCODONE STAT NEGATIVE (NEGATIVE); PROPOXYPHENE STAT NEGATIVE (NEGATIVE); TRICYCLIC ANTIDEPRESSANTS SCRE NEGATIVE (NEGATIVE)
[2017-12-07] MEDS ORDERED: ALPR0.25 PO (18:41)
== END 2017-12-07 18:45 | disposition home or self-care (01) ==
LOC: EDUNIT# 16:30 → ER 16:31
DX: F41.0 Panic disorder [episodic paroxysmal anxiety] (principal); D72.829 Elevated white blood cell count, unspecified; E78.00 Pure hypercholesterolemia, unspecified; K21.9 Gastro-esophageal reflux disease without esophagitis; E11.9 Type 2 diabetes mellitus without complications; I10 Essential (primary) hypertension; G43.909 Migraine, unspecified, not intractable, without status migrainosus; F17.210 Nicotine dependence, cigarettes, uncomplicated; Z98.51 Tubal ligation status; Z87.440 Personal history of urinary (tract) infections; Z80.0 Family history of malignant neoplasm of digestive organs; Z82.49 Family history of ischemic heart disease and other diseases of the circulatory system; Z87.19 Personal history of other diseases of the digestive system; Z86.73 Personal history of transient ischemic attack (TIA), and cerebral infarction without residual deficits; Z98.890 Other specified postprocedural states; Z88.0 Allergy status to penicillin; Z88.5 Allergy status to narcotic agent; Z88.8 Allergy status to other drugs, medicaments and biological substances; Z79.82 Long term (current) use of aspirin; Z79.02 Long term (current) use of antithrombotics/antiplatelets
CPT/HCPCS: 80306; 81000; 99282

== ENCOUNTER 2018-01-23 15:50 | Emergency (ER) | payer MEDICARE, MEDICAID ==
[~2018-01-23] VITALS: Ht 160 cm; Wt 87.5 kg
[~2018-01-23 15:50] MED LIST changes: +ALPR0.25 PO
[2018-01-23 16:31] LABS: BASOPHILS # (AUTO) 0.1 10^3/uL (0.0-0.1); BASOPHILS % (AUTO) 1 % (0-10); EOSINOPHILS # (AUTO) 0.1 10^3/uL (0.0-0.3); EOSINOPHILS % (AUTO) 1 % (0-10); HEMATOCRIT 46 % (35-52); HEMOGLOBIN 14.5 G/DL (11.5-16.0); LYMPHOCYTES # (AUTO) 3.4 X 10^3 (1.0-4.0); LYMPHOCYTES % (AUTO) 26 % (12-44); MEAN CORPUSCULAR HEMOGLOBIN 30 PG (25-34); MEAN CORPUSCULAR HGB CONC 32 G/DL (32-36); MEAN CORPUSCULAR VOLUME 94 FL (80-99); MEAN PLATELET VOLUME 11.4 FL (7.4-10.4); MONOCYTES # (AUTO) 0.9 X 10^3 (0.0-1.0); MONOCYTES % (AUTO) 7 % (0-12); NEUTROPHILS # (AUTO) 8.2 X 10^3 (1.8-7.8); NEUTROPHILS % (AUTO) 65 % (42-75); PLATELET COUNT 278 10^3/uL (130-400); RED BLOOD COUNT 4.84 10^6/uL (4.35-5.85); RED CELL DISTRIBUTION WIDTH 14.1 % (10.0-14.5); WHITE BLOOD COUNT 12.7 10^3/uL (4.3-11.0)
[2018-01-23 16:51] LABS: ALANINE AMINOTRANSFERASE 25 U/L (0-55); ALBUMIN 3.9 GM/DL (3.2-4.5); ALKALINE PHOSPHATASE 210 U/L (40-136); AMYLASE 83 U/L (25-125); BILIRUBIN,TOTAL 0.7 MG/DL (0.1-1.0); BUN/CREATININE RATIO 10; CALCIUM 9.6 MG/DL (8.5-10.1); CARBON DIOXIDE 27 MMOL/L (21-32); CHLORIDE 94 MMOL/L (98-107); CREATININE SERUM 0.78 MG/DL (0.60-1.30); GFR ESTIMATED > 60; GLUCOSE 343 MG/DL (70-105); LIPASE 133 U/L (8-78); POTASSIUM 3.9 MMOL/L (3.6-5.0); SODIUM 135 MMOL/L (135-145); TOTAL PROTEIN 8.2 GM/DL (6.4-8.2)
--- OUTSIDE RECORDS SUMMARY | 2018-01-23 16:51 | XMS REPORT | Clinical Summary ---
Author Author [facility] Organization [facility] Address Unknown Phone Unavailable Care Team Providers Care Supervisor [employer] Name Role Phone Unknown, Unknown Md PCP Unavailable Source Comments Some departments are not documenting in the electronic medical record. If you do not see the information that you expected, contact Release of Information in the Health Information Management department at [phone] for further assistance in locating additional records.[facility] Allergies Not on File Current Medications [...] 09/14/1999 BREAST CANCER SCREENING 2009 INFLUENZA VACCINE 10/19/2017 Results Not on filefrom Last 3 Months
--- OUTSIDE RECORDS SUMMARY | 2018-01-23 16:52 | XMS REPORT ---
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 Name Role Phone Pat SOTERO Unavailable PROBLEMS Type Condition ICD9-CM Code [id number] Code Onset Dates Condition Status SNOMED Code Problem Tobacco abuse counseling Z71.6 Active 300871033 Problem History of CVA with residual deficit I69.30 Active 012776192 Problem Seasonal allergic rhinitis due to pollen J30.1 Active 49185819 Problem Panic disorder F41.0 Active 246308725 Problem Vitamin D deficiency E55.9 Active 55964414 Problem Abnormal drug screen R89.2 Active 854866730 Problem Type 2 diabetes mellitus with hyperglycemia E11.65 Active 34389237 Problem 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 Active 804007042 Problem Acute non intractable tension-type headache G44.209 Active 476458011 Problem Chronic pain syndrome G89.4 Active 025279883 Problem Generalized anxiety disorder F41.1 Active 22703424 Problem 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 Active 359692796 Problem Major depressive disorder, recurrent episode, moderate F33.1 Active 350039155 Problem Elevated liver enzymes R74.8 Active 768143055 Problem Gastroesophageal reflux disease, esophagitis presence not specified K21.9 Active 230873967 Problem Essential hypertension I10 Active 34165216 Problem DM (diabetes mellitus) with complications E11.8 Active 19950021 Problem Other chronic pain G89.29 Active 05588414 Problem Hyperlipidemia, unspecified hyperlipidemia type E78.5 Active 56842634 Problem Tobacco abuse Z72.0 Active 877700637 ALLERGIES No Information ENCOUNTERS Encounter Location Date Diagnosis [facility] [address] [facility] [id number] [address] Dec, [facility] [address] [id number] [address] Dec, [place] [address] [id number] [place] [address] 38745- 5854 28 Nov, 2017 C. difficile diarrhea A04.72 [place] [id number] [place] [address] 81474- 9076 26 Nov, 2017 Panic disorder F41.0 [place] [id number] [place] [address] 36985- 2481 25 Nov, 2017 Diarrhea, unspecified type R19.7 [place] [id number] [place] [address] 88962- 7876 19 Nov, 2017 [place] [address] 57005- 7515 13 Nov, 2017 Dysuria R30.0 ; Acute cystitis with hematuria N30.01 ; Flank pain R10.9 and Violation of controlled substance agreement Z91.14 [place] [id number] [place] [address] 75074- 5157 16 Oct, 2017 [facility] [id number] [place] [address] 55345 -5183 Oct, [facility] [id number] [place] [address] 82469 -4560 Oct, Dysuria R30.0 and Acute cystitis with hematuria N30.01 [place] [id number] [place] [address] 04421- 8699 Oct, [place] [id number] [place] [address] 97183- 5426 Oct, [place] [id number] [place] [address] 13176- 7629 Oct, Controlled substance agreement broken Z91.14 ; Violation of controlled substance agreement Z91.14 ; Other chronic pain G89.29 and Generalized anxiety disorder F41.1 [place] [id number] [place] [address] 53850- 3964 Oct, [place] [id number] [place] [address] 15292- 8338 Oct, [facility] [address] 66569- 1874 Sep, Abscess L02.91 [facility] [address] 57559- 0470 Sep, [facility] [address] 13414- 0001 Sep, DM (diabetes mellitus) with complications E11.8 ; Generalized anxiety disorder F41.1 and Chronic pain syndrome G89.4 [place] [address] 89856- 7252 Sep, Generalized anxiety disorder F41.1 ; Chronic pain syndrome G89.4 ; Abnormal drug screen R89.2 and Other chest pain R07.89 [facility] [address] 82304- 2732 Aug, Dysuria R30.0 [facility] [address] 18551- 7132 Aug, Generalized anxiety disorder F41.1 ; Chronic pain syndrome G89.4 and Dysuria R30.0 [facility] [id number] [place] [address] 74070- 3841 Aug, Acute cystitis with hematuria N30.01 and Candidal dermatitis B37.2 [facility] [id number] [place] [address] 62886- 6511 Aug, Dysuria R30.0 [facility] [id number] [place] [address] 97120- 6943 Aug, [facility] [id number] [place] [address] 92652 -3447 Aug, Dysuria R30.0 [facility] [id number] [place] [address] 37503- 5621 Aug, [place] [id number] [place] [address] 70695- 4470 July, Cervicalgia M54.2 ; Acute non intractable tension-type headache G44.209 ; Type 2 diabetes mellitus with hyperglycemia E11.65 and 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 [place] [id number] [place] [address] 80390- 3318 July, Generalized anxiety disorder F41.1 and Chronic pain syndrome G89.4 [place] [id number] [place] [address] 06780- 1026 July, Abscess L02.91 [place] [address] 23945- 9843 July, [place] [id number] [place] [address] 24622- 4804 July, [place] [id number] [place] [address] 66606- 8751 July, Type 2 diabetes mellitus with hyperglycemia E11.65 ; retirement current use of insulin Z79.4 ; Elevated [...] G89.4 and Vaginal candidiasis B37.3 [place] [id number] [place] [address] 62322- 7122 Jun, Generalized anxiety disorder F41.1 and Other chronic pain G89.29 [place] [id number] [place] [address] 06503- 6692 Jun, [place] [id number] [place] [address] 32997- 3439 Jun, [place] [id number] [place] [address] 23171- 3430 Jun, Abnormal levels of other serum enzymes R74.8 [facility] [id number] [place] [address] 01184- 3927 Jun, Abnormal levels of other serum enzymes R74.8 [facility] [id number] [place] [address] 74757- 1751 Jun, Elevated liver enzymes R74.8 [facility] [id number] [place] [address] 26331- 0716 Jun, Elevated liver enzymes R74.8 [place] [id number] [place] [address] 27216- 8849 May, Right upper quadrant pain R10.11 ; Cervicalgia M54.2 and High risk medication use Z79.899 [place] [id number] [place] [address] 18919- 8367 May, Generalized anxiety disorder F41.1 and Other chronic pain G89.29 [facility] [id number] [place] [address] 04251- 2695 May, Canker sores oral K12.0 [place] [id number] [place] [address] 49679- 1963 May, Generalized anxiety disorder F41.1 and Other chronic pain G89.29 [facility] [id number] [place] [address] 19440- 1881 May, [facility] [id number] [place] [address] 29977- 9119 Apr, [facility] [id number] [place] [address] 70527 -3782 Apr, Acute cystitis with hematuria N30.01 and Dysuria R30.0 [facility] [id number] [place] [address] 49760- 9740 Apr, [facility] [id number] [place] [address] 68285- 1064 Apr, [facility] [address] 86962- 6057 08 Apr, 2017 DM (diabetes mellitus) with complications E11.8 [facility] [id number] [place] [address] 38740- 0383 06 Apr, 2017 DM (diabetes mellitus) with complications E11.8 [place] [id number] [place] [address] 20751- 0603 03 Apr, 2017 [place] [address] 62173- 7065 Apr, [place] [id number] [place] [address] 97121- 6524 Apr, Other chronic pain G89.29 ; Generalized anxiety disorder F41.1 ; Cervicalgia M54.2 and Controlled substance agreement signed Z79.899 [facility] [id number] [place] [address] 87544 -2679 Mar, Abdominal pain R10.9 and Viral gastroenteritis A08.4 [place] [id number] [place] [address] 04682- 4108 Mar, [facility] [id number] [place] [address] 08039- 0878 Mar, [place] [id number] [place] [address] 49725- 9841 Mar, DM (diabetes mellitus) with complications E11.8 ; Type 2 diabetes mellitus with hyperglycemia E11.65 ; 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 ; Essential hypertension I10 ; Bronchitis J40 ; Major depressive disorder , recurrent episode, moderate F33.1 ; Hyperlipidemia, unspecified hyperlipidemia type E78.5 ; Tobacco abuse Z72.0 ; Tobacco abuse counseling Z71.6 ; History of CVA with residual deficit I69.30 ; Gastroesophageal reflux disease, esophagitis presence not specified K21.9 and 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 [place] [id number] [place] [address] 58908- 7947 Mar, [place] [address] 98500- 0701 Mar, DM (diabetes mellitus) with complications E11.8 ; Abnormal lung sounds R09.89 ; Bronchitis J40 and Hyperlipidemia, unspecified hyperlipidemia type E78.5 [facility] [place] [address] 36927 -4904 Mar, URI, acute J06.9 [place] [address] 34148- 2434 Mar, [place] [address] 27494- 2128 Mar, DM (diabetes mellitus) with complications E11.8 [place] [address] 95038- 7782 Mar, Other chronic pain G89.29 and Generalized anxiety disorder F41.1 [place] [address] 12220- 8421 Feb, [place] [address] 57531- 1542 Feb, Mass of left lung R91.8 and Cervicalgia M54.2 [place] [address] 43285- 1532 Feb, [place] [address] 98526- 6450 Feb, [facility] [place] [address] 82497 -8156 Feb, Cough R05 and Bronchitis J40 [facility] [place] [id number] [place] [address] 51236 -4195 07 Feb, 2017 Acute nasopharyngitis J00 and Bronchitis J40 [place] [id number] [place] [address] 95553- 1623 06 Feb, 2017 Other chronic pain G89.29 and Generalized anxiety disorder F41.1 [facility] [id number] [place] [address] 95035- 4484 Jan, Encounter for immunization Z23 [facility] [id number] [place] [address] 91925 -0155 Jan, [facility] [address] 24377 -3020 Jan, [place] [address] 39171- 4677 16 Jan, 2017 Canker sores oral K12.0 [place] [address] 96882- 7649 14 Jan, 2017 [place] [address] 29696- 2733 07 Jan, 2017 Other chronic pain G89.29 and Generalized anxiety disorder F41.1 [place] [id number] [place] [address] 79703- 7669 06 Jan, 2017 Cough R05 and Bronchitis J40 [facility] [place] [id number] [place] [address] 17634 -3001 Jan, Bronchitis J40 [place] [id number] [place] [address] 91142- 0871 Dec, Vitamin D deficiency E55.9 [place] [id number] [place] [address] 89839- 0054 Dec, DM (diabetes mellitus) with complications E11.8 [place] [address] 67704- 8366 Dec, DM (diabetes mellitus) with complications E11.8 and Vitamin D deficiency E55.9 [place] [id number] [place] [address] 09214- 2452 10 Oct, 2017 DM (diabetes mellitus) with complications E11.8 ; Essential hypertension I10 ; Hyperlipidemia, unspecified hyperlipidemia type E78.5 ; Vitamin D deficiency E55.9 ; Gastroesophageal reflux disease, esophagitis presence not specified K21.9 ; 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 ; Other chronic pain G89.29 ; Encounter for immunization Z23 and Generalized anxiety disorder F41.1 [place] [address] 80810- 6652 12 Nov, 2016 History of CVA with residual deficit I69.30 [place] [address] 58186- 7037 11 Nov, 2016 DM (diabetes mellitus) with complications E11.[address] 17142- 0478 06 Nov, 2016 Left otitis media with effusion H65.92 ; Bronchitis J40 and Canker sores oral K12.[address] 21659- 6870 14 Oct, 2016 [place] [address] 53708- 0764 04 Oct, 2016 DM (diabetes mellitus) with complications E11.8 [place] [address] 45849- 6413 02 Oct, 2016 [place] [address] 20728- 3938 17 Sep, 2016 DM (diabetes mellitus) with complications E11.8 [place] [address] 19845- 9525 Sep, DM (diabetes mellitus) with complications E11.8 ; Essential hypertension I10 ; Gastroesophageal reflux disease, esophagitis presence not specified K21.9 ; Hyperlipidemia, unspecified hyperlipidemia type E78.5 ; Tobacco abuse Z72.0 ; Vitamin D deficiency E55.9 ; History of CVA with residual deficit I69.30 and Seasonal allergic rhinitis due to pollen J30.[address] 49183- 6262 Sep, [facility] [address] [address]- 8289 Aug, [facility] [id number] [place] [address] 43129 -0297 Aug, Dysuria R30.0 ; Acute cystitis with hematuria N30.01 and Middle ear effusion, right H65.91 [facility] [id number] [place] [address] 44158- 6998 Aug, Other complicated headache syndrome G44.59 [facility] [id number] [place] [address] 33675- 1215 Aug, DM (diabetes mellitus) with complications E11.8 [facility] [id number] [place] [address] 41069- 1060 Aug, Dysuria R30.0 [facility] [id number] [place] [address] 82774- 7989 Aug, Dysuria R30.0 [facility] [id number] [place] [address] 83072- 4827 Aug, [facility] [id number] [place] [address] 44997- 8498 July, [facility] [id number] [place] [address] 55858- 5164 July, [facility] [id number] [place] [address] 43927- 9554 July, DM (diabetes mellitus) with complications E11.8 [facility] [id number] [place] [address] 62237- 8641 July, Other complicated headache syndrome G44.59 [facility] [id number] [place] [address] 75230- 1158 July, [facility] [address], [place] [address] -7584 July, Dysuria R30.0 and Acute cystitis with hematuria N30.01 [facility] [id number] [place] [address] 29654- 5012 July, [place] [address] 77070- 3587 July, Other complicated headache syndrome G44.59 [facility] [address] 29345 -7936 Jun, Exposure to strep throat Z20.818 and Acute upper respiratory infection, unspecified J06.9 [place] [id number] [place] [address] 73022- 7588 Jun, [place] [address] 14304- 2126 Jun, DM (diabetes mellitus) with complications E11.8 and Gastroesophageal reflux disease, esophagitis presence not specified K21.9 [place] [address] 16317- 9011 Jun, [place] [id number] [place] [address] 80772- 5911 Jun, Dizziness R42 [facility] [place] [address] [id number] [place] [address] 33502 -4751 Jun, [place] [id number] [place] [address] 27107- 5608 Jun, [facility] [id number] [place] [address] 76203 -3306 May, Seasonal allergic rhinitis, unspecified allergic rhinitis trigger J30.2 [place] [id number] [place] [address] 85721- 5231 May, [place] [address] [id number] [place] [address] 25591- 3923 May, DM (diabetes mellitus) with complications E11.8 [...] [facility] [id number] [place] [address] 00160- 3195 16 May, 2016 Gastroesophageal reflux disease, esophagitis presence not specified K21.9 [facility] [id number] [place] [address] 33980- 1853 May, [facility] [id number] [place] [address] 63828- 3260 Apr, [facility] [address] [id number] [place] [address] 38510- 7357 Apr, [facility] [address] [id number] [place] [address] 44282- 0710 Mar, [facility] [id number] [place] [address] 29613- 6514 Mar, [facility] [address] [id number] [place] [address] 15300- 0939 Mar, [facility] [id number] [place] [address] 18540- 3814 Mar, [facility] [id number] [place] [address] 46306- 9517 Feb, [facility] [id number] [address]- 0142 Feb, [facility] [address] [address] [id number] [place] [address] [id number]- 2358 Feb, [facility] [id number] [place] [address] 04219- 3474 Feb, Major depressive disorder, recurrent episode, moderate F33.1 ; Generalized anxiety disorder F41.1 ; Essential hypertension I10 ; DM ( diabetes mellitus) with complications E11.8 ; Hyperlipidemia, unspecified hyperlipidemia type E78.5 ; 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 and Gastroesophageal reflux disease, esophagitis presence not specified K21.9 [facility] [address] [address] [id number] [place] [address] 43253 -9066 Feb, Other viral agents as the cause of diseases classified elsewhere B97.89 and Acute upper respiratory infection, unspecified J06.9 [place] [address] 51911- 6772 Jan, [place] [address] 12488- 7331 Jan, [facility] [address] 93729 -6915 Jan, Acute bronchitis, unspecified organism J20.9 [place] [address] 46010- 7686 Jan, [place] [address] 52793- 6037 Jan, History of CVA with residual deficit I69.30 [place] [address] 03554- 5597 Jan, [place] [address] [place] [id number] [place] [address] 66646- 6456 Jan, Acute bronchitis, unspecified organism J20.9 [place] [address] [place] [id number] [place] [address] 57477- 4183 Jan, [place] [address] [place] [id number] [place] [address] 42555- 1861 Dec, History of CVA with residual deficit I69.30 [place] [address] 18343- 0162 Dec, [place] [address] 37046- 3420 Dec, Other chronic pain G89.29 ; DM (diabetes mellitus) with complications E11.8 and History of CVA with residual deficit I69.30 [place] [id number] [place] [address] 76155- 2651 Nov, Major depressive disorder, recurrent episode, moderate F33.1 ; Irregular heart rhythm I49.9 ; Essential hypertension I10 ; History of CVA with residual deficit I69.30 ; DM (diabetes mellitus) with complications E11.8 ; Gastroesophageal reflux disease, esophagitis presence not specified K21.9 ; Hyperlipidemia, unspecified hyperlipidemia type E78.5 ; 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 ; Other chronic pain G89.29 and Generalized anxiety disorder F41.[address] [address] Oct, Generalized anxiety disorder F41.1 ; Major depressive disorder, recurrent episode, moderate F33.1 ; Essential hypertension I10 ; History of CVA with residual deficit I69.30 ; DM (diabetes mellitus) with complications E11.8 ; Gastroesophageal reflux disease, esophagitis presence not specified K21.9 ; Hyperlipidemia, unspecified hyperlipidemia type E78.5 ; Other chronic pain G89.29 and Bacterial conjunctivitis of left eye H10.9 [place] [address] [place] [id number] [place] [address] Sep, Chronic pain syndrome G89.4 and DM (diabetes mellitus) with complications E11.8 [place] [address] [place] [id number] [place] [address] Sep, Irregular heart rhythm I49.9 ; Routine health maintenance Z00.00 ; Essential hypertension I10 ; History of CVA with residual deficit I69.30 ; Gastroesophageal reflux disease, esophagitis presence not specified K21.9 ; DM (diabetes mellitus) with complications E11.8 ; Hyperlipidemia, unspecified hyperlipidemia type E78.5 and Other complicated headache syndrome G44.59 [place] [address] [place] [id number] [place] [id number] Jun, [place] [address] [place] [id number] [place] [address] Jun, [place] [address] [facility] [id number] [place] [address] Aug, [facility] [address] [facility] [id number] [id number] Jun, IMMUNIZATIONS No Known Immunizations SOCIAL HISTORY [...] Has been hospitalized at then transfered to [place]. 2014 Hospitalization History Child Hospitalization History abd pain and shakiness - [facility] ED [facility] [facility] ED for URI 04/16/17 Hospitalization History via [facility] [place] [facility] 08/16/17
--- OUTSIDE RECORDS SUMMARY | 2018-01-23 16:52 | XMS REPORT ---
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 Name Role Phone KING CHESTER Unavailable PROBLEMS Type Condition ICD9-CM Code VUS96-BW Code Onset Dates Condition Status SNOMED Code Problem Tobacco abuse counseling Z71.6 Active 503840142 Problem History of CVA with residual deficit I69.30 Active 232213457 Problem Seasonal allergic rhinitis due to pollen J30.1 Active 09803727 Problem Panic disorder F41.0 Active 484817835 Problem Vitamin D deficiency E55.9 Active 58085031 Problem Abnormal drug screen R89.2 Active 734997598 Problem Type 2 diabetes mellitus with hyperglycemia E11.65 Active 81021071 Problem shelter current use of insulin Z79.4 Active 320137871 Problem Acute non intractable tension-type headache G44.209 Active 012025087 Problem Chronic pain syndrome G89.4 Active 189704788 Problem Generalized anxiety disorder F41.1 Active 97310553 Problem 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 Active 841913624 Problem Major depressive disorder, recurrent episode, moderate F33.1 Active 242330299 Problem Elevated liver enzymes R74.8 Active 363673038 Problem Gastroesophageal reflux disease, esophagitis presence not specified K21.9 Active 514774376 Problem Essential hypertension I10 Active 16873864 Problem DM (diabetes mellitus) with complications E11.8 Active 34446753 Problem Other chronic pain G89.29 Active 31235942 Problem Hyperlipidemia, unspecified hyperlipidemia type E78.5 Active 47970490 Problem Tobacco abuse Z72.0 Active 202749711 ALLERGIES No Information ENCOUNTERS Encounter Location Date Diagnosis [facility] [address] [facility] [id number], [place] [address] Dec, [facility] [address] [facility] [id number], [place] [address] Dec, [facility] [id number] [place] [address] 18813- 2919 28 Nov, 2017 C. difficile diarrhea A04.72 [place] [address] [place] [id number] [place] [address] 79854- 4814 26 Nov, 2017 Panic disorder F41.0 [place] [address] [place] [id number] [place] [address] 78626- 2706 25 Nov, 2017 Diarrhea, unspecified type R19.7 [place] [address] [place] [id number] [place] [address] 84978- 5007 19 Nov, 2017 [place] [id number] [place] [address] 73532- 6379 13 Nov, 2017 Dysuria R30.0 ; Acute cystitis with hematuria N30.01 ; Flank pain R10.9 and Violation of controlled substance agreement Z91.14 [place] [address] [place] [id number] [place] [address] 13958- 8828 16 Oct, 2017 [facility] [id number] [place] [address] 23210 -2732 Oct, [facility] [id number] [place] [address] 01530 -4644 14 Oct, 2017 Dysuria R30.0 and Acute cystitis with hematuria N30.01 [place] [address] [place] [address] 40393- 2604 Oct, [place] [address] [place] [id number] [place] [address] 21824- 4938 Oct, [facility] [address] [place] [address] 91199- 8116 Oct, Controlled substance agreement broken Z91.14 ; Violation of controlled substance agreement Z91.14 ; Other chronic pain G89.29 and Generalized anxiety disorder F41.1 [place] [address] [place] [address] 67346- 4287 Oct, [place] [address] [place] [address] [place] [address] 9869 Oct, [facility] [id number] [place] [address] 91910- 4452 Sep, Abscess L02.91 [facility] [id number] [place] [address] 17730- 2573 Sep, [facility] [address] 50793- 5466 Sep, DM (diabetes mellitus) with complications E11.8 ; Generalized anxiety disorder F41.1 and Chronic pain syndrome G89.4 [place] [address] 05826- 9795 Sep, Generalized anxiety disorder F41.1 ; Chronic pain syndrome G89.4 ; Abnormal drug screen R89.2 and Other chest pain R07.89 [facility] [address] 17442- 2405 Aug, Dysuria R30.0 [facility] [address] [place] [id number] [place] [address] 18932- 4845 Aug, Generalized anxiety disorder F41.1 ; Chronic pain syndrome G89.4 and Dysuria R30.0 [facility] [id number] [place] [address] 68029- 3587 Aug, Acute cystitis with hematuria N30.01 and Candidal dermatitis B37.2 [facility] [id number] [place] [address] 51839- 2841 Aug, Dysuria R30.0 [facility] [id number] [place] [address] 39448- 5896 Aug, [facility] [id number] [place] [address] 71205 -6610 Aug, Dysuria R30.0 [facility] [id number] [place] [address] 99771- 7322 Aug, [facility] [id number] [place] [address] 71437- 8761 July, Cervicalgia M54.2 ; Acute non intractable tension-type headache G44.209 ; Type 2 diabetes mellitus with hyperglycemia E11.65 and shelter current use of insulin Z79.4 [place] [id number] [place] [address] 12515- 8539 July, Generalized anxiety disorder F41.1 and Chronic pain syndrome G89.4 [place] [id number] [place] [address] 61769- 6131 July, Abscess L02.91 [place] [address] 39076- 9382 July, [place] [id number] [place] [address] 10473- 9722 July, [place] [id number] [place] [address] 40437- 2198 July, Type 2 diabetes mellitus with hyperglycemia E11.65 ; shelter current use of insulin Z79.4 ; Elevated [...] pain syndrome G89.4 and Vaginal candidiasis B37.3 [place] [id number] [place] [address] 84266- 6357 Jun, Generalized anxiety disorder F41.1 and Other chronic pain G89.29 [place] [id number] [place] [address] 29762- 6691 Jun, [place] [id number] [place] [address] 30532- 8911 Jun, [place] [id number] [place] [address] 67478- 2437 Jun, Abnormal levels of other serum enzymes R74.8 [place] [id number] [place] [address] 13130- 4685 Jun, Abnormal levels of other serum enzymes R74.8 [facility] [id number] [place] [address] 42937- 6044 Jun, Elevated liver enzymes R74.8 [facility] [id number] [place] [address] 04440- 8126 Jun, Elevated liver enzymes R74.8 [place] [id number] [place] [address] 06233- 4427 May, Right upper quadrant pain R10.11 ; Cervicalgia M54.2 and High risk medication use Z79.899 [place] [id number] [place] [address] 21783- 5498 May, Generalized anxiety disorder F41.1 and Other chronic pain G89.29 [place] [id number] [place] [address] 82990- 9022 May, Canker sores oral K12.0 [place] [id number] [place] [address] 64257- 0891 May, Generalized anxiety disorder F41.1 and Other chronic pain G89.29 [place] [id number] [place] [address] 64745- 9344 May, [facility] [id number] [place] [address] 07728- 9578 Apr, [facility] [id number] [place] [address] 36761 -0566 Apr, Acute cystitis with hematuria N30.01 and Dysuria R30.0 [place] [id number] [place] [address] 16877- 7471 Apr, [facility] [address] [place] [address] 63957- 8844 08 Apr, 2017 [facility] [address] 45319- 4867 08 Apr, 2017 DM (diabetes mellitus) with complications E11.8 [facility] [id number] [place] [address] 24075- 4380 06 Apr, 2017 DM (diabetes mellitus) with complications E11.8 [facility] [id number] [place] [address] 95259- 9684 03 Apr, 2017 [facility] [address] 13208- 0619 Apr, [facility] [id number] [place] [address] 18984- 9554 Apr, Other chronic pain G89.29 ; Generalized anxiety disorder F41.1 ; Cervicalgia M54.2 and Controlled substance agreement signed Z79.899 [facility] [id number] [place] [address] 63285 -8918 Mar, Abdominal pain R10.9 and Viral gastroenteritis A08.4 [facility] [id number] [place] [address] 53506- 6037 Mar, [facility] [id number] [place] [address] 02081- 0706 Mar, [facility] [id number] [place] [address] 75487- 9198 Mar, DM (diabetes mellitus) with complications E11.8 ; Type 2 diabetes mellitus with hyperglycemia E11.65 ; 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 ; Essential hypertension I10 ; Bronchitis J40 ; Major depressive disorder , recurrent episode, moderate F33.1 ; Hyperlipidemia, unspecified hyperlipidemia type E78.5 ; Tobacco abuse Z72.0 ; Tobacco abuse counseling Z71.6 ; History of CVA with residual deficit I69.30 ; Gastroesophageal reflux disease, esophagitis presence not specified K21.9 and 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 [place] [id number] [place] [address] 35951- 2515 Mar, [place] [address] 87582- 1929 Mar, DM (diabetes mellitus) with complications E11.8 ; Abnormal lung sounds R09.89 ; Bronchitis J40 and Hyperlipidemia, unspecified hyperlipidemia type E78.5 [facility] [place] [address] 62768 -4473 Mar, URI, acute J06.9 [place] [address] 31024- 4521 Mar, [place] [address] 48308- 1893 Mar, DM (diabetes mellitus) with complications E11.8 [place] [address] 39985- 1096 Mar, Other chronic pain G89.29 and Generalized anxiety disorder F41.1 [place] [address] 18717- 4870 Feb, [place] [address] 87258- 5884 Feb, Mass of left lung R91.8 and Cervicalgia M54.2 [place] [address] 79543- 1066 Feb, [place] [address] 12187- 9929 Feb, [facility] [address] 76079 -8210 Feb, Cough R05 and Bronchitis J40 [facility] [place] [address] 38006 -1122 Feb, Acute nasopharyngitis J00 and Bronchitis J40 [place] [address] [place] [address]- 8814 Feb, Other chronic pain G89.29 and Generalized anxiety disorder F41.1 [facility] [address] 81281- 8154 29 Jan, 2017 Encounter for immunization Z23 [facility] [address] 54838 -4593 Jan, [facility] [address] 82378 -3031 Jan, [facility] [address] 84293- 5679 Jan, Canker sores oral K12.0 [place] [address] 50318- 4483 14 Jan, 2017 [place] [address] 36472- 5359 07 Jan, 2017 Other chronic pain G89.29 and Generalized anxiety disorder F41.1 [place] [address] 36766- 4232 06 Jan, 2017 Cough R05 and Bronchitis J40 [facility] [address] 66153 -7565 Jan, Bronchitis J40 [place] [address] 33022- 7227 Dec, Vitamin D deficiency E55.9 [place] [address] 26637- 8025 Dec, DM (diabetes mellitus) with complications E11.8 [place] [address] 23565- 3179 Dec, DM (diabetes mellitus) with complications E11.8 and Vitamin D deficiency E55.9 [place] [address] [id number] [place] [address] 42265- 1503 Dec, DM (diabetes mellitus) with complications E11.8 ; Essential hypertension I10 ; Hyperlipidemia, unspecified hyperlipidemia type E78.5 ; Vitamin D deficiency E55.9 ; Gastroesophageal reflux disease, esophagitis presence not specified K21.9 ; 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 ; Other chronic pain G89.29 ; Encounter for immunization Z23 and Generalized anxiety disorder F41.1 [place] [id number] [place] [address] 34157- 5656 12 Nov, 2016 History of CVA with residual deficit I69.30 [place] [address] 57079- 9069 11 Nov, 2016 DM (diabetes mellitus) with complications E11.8 [place] [address] 18435- 8654 06 Nov, 2016 Left otitis media with effusion H65.92 ; Bronchitis J40 and Canker sores oral K12.0 [place] [address] 62761- 7575 14 Oct, 2016 [place] [address] 15926- 0911 04 Oct, 2016 DM (diabetes mellitus) with complications E11.8 [place] [address] 35019- 5528 02 Oct, 2016 [place] [address] 49219- 6866 17 Sep, 2016 DM (diabetes mellitus) with complications E11.8 [place] [address] 19480- 5448 11 Sep, 2016 DM (diabetes mellitus) with complications E11.8 ; Essential hypertension I10 ; Gastroesophageal reflux disease, esophagitis presence not specified K21.9 ; Hyperlipidemia, unspecified hyperlipidemia type E78.5 ; Tobacco abuse Z72.0 ; Vitamin D deficiency E55.9 ; History of CVA with residual deficit I69.30 and Seasonal allergic rhinitis due to pollen J30.1 [place] [id number] [place] [address] 97595- 2135 Sep, [place] [address] [address]- 7213 Aug, [facility] [id number] [place] [address] 66837 -4168 Aug, Dysuria R30.0 ; Acute cystitis with hematuria N30.01 and Middle ear effusion, right H65.91 [facility] [id number] [place] [address] 36282- 5659 Aug, Other complicated headache syndrome G44.59 [facility] [id number] [place] [address] 44650- 4466 Aug, DM (diabetes mellitus) with complications E11.8 [facility] [id number] [place] [address] 37987- 4293 Aug, Dysuria R30.0 [facility] [address] [id number] [place] [address] 31826- 9256 Aug, Dysuria R30.0 [facility] [id number] [place] [address] 16906- 6734 Aug, [facility] [id number] [place] [address] 99552- 7027 July, [facility] [address] [place] [address] 63277- 8213 July, [facility] [address] [id number] [place] [address] 34420- 3642 July, DM (diabetes mellitus) with complications E11.8 [facility] [address], [place] [address]- 6468 July, Other complicated headache syndrome G44.59 [facility] [address] [place] [id number] [place] [address] 29092- 3010 July, [facility] [address] [address] -3869 July, Dysuria R30.0 and Acute cystitis with hematuria N30.01 [facility] [id number] [place] [address] 00498- 1007 July, [place] [address] 64739- 9086 July, Other complicated headache syndrome G44.59 [facility] [address] 89644 -8193 Jun, Exposure to strep throat Z20.818 and Acute upper respiratory infection, unspecified J06.9 [place] [address] 63431- 0694 Jun, [place] [address] 17451- 6616 Jun, DM (diabetes mellitus) with complications E11.8 and Gastroesophageal reflux disease, esophagitis presence not specified K21.9 [place] [address] 78249- 9663 Jun, [place] [address] 75677- 3853 Jun, Dizziness R42 [facility] [place] [address] 35530 -7647 Jun, [place] [address] 28080- 7892 Jun, [facility] [place] [address] 42369 -3898 May, Seasonal allergic rhinitis, unspecified allergic rhinitis trigger J30.2 [place] [address] 95574- 3987 May, [place] [address] 94958- 0297 May, DM (diabetes mellitus) with complications E11.8 [...] Seasonal allergic rhinitis due to pollen J30.1 [facility] [id number] [place] [address] 20591- 0467 16 May, 2016 Gastroesophageal reflux disease, esophagitis presence not specified K21.9 [facility] [address] [place] [id number] [place] [address] 62433- 8770 May, [facility] [address] [place] [id number] [place] [address] 37764- 7985 Apr, [place] [address] [id number] [place] [address] 53246- 2535 Apr, [facility] [address] [id number] [place] [address] 26389- 2753 Mar, [facility] [address] [place] [id number] [place] [address] 68212- 6022 Mar, [facility] [address] [id number] [place] [address] 28262- 0610 Mar, [facility] [address] [id number] [place] [address] 46410- 4558 Mar, [place] [address] [id number] [place] [address] 44474- 7462 Feb, [facility] [address] [place] [id number] [place] [address] 31204- 7061 Feb, [facility] [address] [place] [id number] [place] [address] 78492- 2158 Feb, [facility] [address] [id number] [place] [address] 57335- 0922 Feb, Major depressive disorder, recurrent episode, moderate F33.1 ; Generalized anxiety disorder F41.1 ; Essential hypertension I10 ; DM ( diabetes mellitus) with complications E11.8 ; Hyperlipidemia, unspecified hyperlipidemia type E78.5 ; 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 and Gastroesophageal reflux disease, esophagitis presence not specified K21.9 [facility] [address] [place] [id number] [place] [address] 98681 -8410 Feb, Other viral agents as the cause of diseases classified elsewhere B97.89 and Acute upper respiratory infection, unspecified J06.9 [place] [address] 30781- 6974 Jan, [place] [address] 84557- 3421 Jan, [facility] [address] 20463 -2273 Jan, Acute bronchitis, unspecified organism J20.9 [place] [address] 57637- 9878 Jan, [place] [address] 69769- 0602 Jan, History of CVA with residual deficit I69.30 [place] [address] 63743- 6691 Jan, [place] [address] [place] [id number] [place] [address] 34144- 7390 Jan, Acute bronchitis, unspecified organism J20.9 [place] [address] [place] [id number] [place] [address] 05177- 4287 Jan, [place] [address] [place] [id number] [place] [address] 27852- 0061 Dec, History of CVA with residual deficit I69.30 [place] [address] 70633- 4639 Dec, [place] [address] 81679- 4657 Dec, Other chronic pain G89.29 ; DM (diabetes mellitus) with complications E11.8 and History of CVA with residual deficit I69.30 [place] [address] [address]- 3427 Nov, Major depressive disorder, recurrent episode, moderate F33.1 ; Irregular heart rhythm I49.9 ; Essential hypertension I10 ; History of CVA with residual deficit I69.30 ; DM (diabetes mellitus) with complications E11.8 ; Gastroesophageal reflux disease, esophagitis presence not specified K21.9 ; Hyperlipidemia, unspecified hyperlipidemia type E78.5 ; 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 ; Other chronic pain G89.29 and Generalized anxiety disorder F41.1 [place] [address] [place] [address] 25171- 5792 Oct, Generalized anxiety disorder F41.1 ; Major depressive disorder, recurrent episode, moderate F33.1 ; Essential hypertension I10 ; History of CVA with residual deficit I69.30 ; DM (diabetes mellitus) with complications E11.8 ; Gastroesophageal reflux disease, esophagitis presence not specified K21.9 ; Hyperlipidemia, unspecified hyperlipidemia type E78.5 ; Other chronic pain G89.29 and Bacterial conjunctivitis of left eye H10.[address] [place] [address] 36433- 4005 Sep, Chronic pain syndrome G89.4 and DM (diabetes mellitus) with complications E11.8 [address] [place] [address] 53000- 2930 Sep, Irregular heart rhythm I49.9 ; Routine health maintenance Z00.00 ; Essential hypertension I10 ; History of CVA with residual deficit I69.30 ; Gastroesophageal reflux disease, esophagitis presence not specified K21.9 ; DM (diabetes mellitus) with complications E11.8 ; Hyperlipidemia, unspecified hyperlipidemia type E78.5 and Other complicated headache syndrome G44.59 [place] [address] [place] [address] 81952- 2769 Jun, [place] [id number] [place] [address] 89206- 8633 Jun, [place] [address] [place] [id number] [address]- 2546 Aug, [facility] [address] [facility] [id number] [address]- 2546 Jun, IMMUNIZATIONS No Known Immunizations SOCIAL HISTORY Never Assessed REASON FOR VISIT PLAN OF CARE VITAL SIGNS MEDICATIONS Medication Instructions Dosage Frequency Start Date End Date Duration Status Flagyl 500 mg Orally every 8 hrs 1 tablet 8h Nov, Dec, 10 day(s) Active RESULTS No Results PROCEDURES No Known procedures INSTRUCTIONS MEDICATIONS ADMINISTERED No Known Medications MEDICAL (GENERAL) HISTORY Type Description Date Medical History diabetes mellitus Medical History hyperlipidemia Medical History hypertension Medical History Anxiety disorder Medical History Blood Clotting Disorder- Dr Galvan at [facility] Medical History Possible Anemia (currently under work up) - Dr Galvan [facility] Medical History irregular heart beat-sees [...] Has been hospitalized at then transfered to [place]. 2014 Hospitalization History Child Hospitalization History abd pain and shakiness - [facility] ED visit [facility] Hospitalization History [facility] ED for URI 04/16/17 Hospitalization History via [facility] er 08/16/17
--- OUTSIDE RECORDS SUMMARY | 2018-01-23 16:53 | XMS REPORT ---
Author Author SOTERO Stewart Organization [facility] Address [address] [place] [address] Care Team Providers Care Welfare Investigator Name Role Phone Pat SOTERO Unavailable PROBLEMS Type Condition ICD9-CM Code [id number] Code Onset Dates Condition Status SNOMED Code Problem Tobacco abuse counseling Z71.6 Active 841425886 Problem History of CVA with residual deficit I69.30 Active 574377659 Problem Seasonal allergic rhinitis due to pollen J30.1 Active 69857057 Problem Panic disorder F41.0 Active 831251033 Problem Vitamin D deficiency E55.9 Active 38116643 Problem Abnormal drug screen R89.2 Active 958666904 Problem Type 2 diabetes mellitus with hyperglycemia E11.65 Active 70712869 Problem 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.4 Active 490180404 Problem Acute non intractable tension-type headache G44.209 Active 429331208 Problem Chronic pain syndrome G89.4 Active 646728361 Problem Generalized anxiety disorder F41.1 Active 15739870 Problem 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 Active 743903804 Problem Major depressive disorder, recurrent episode, moderate F33.1 Active 267545975 Problem Elevated liver enzymes R74.8 Active 924832542 Problem Gastroesophageal reflux disease, esophagitis presence not specified K21.9 Active 633743473 Problem Essential hypertension I10 Active 85342391 Problem DM (diabetes mellitus) with complications E11.8 Active 69591241 Problem Other chronic pain G89.29 Active 24882735 Problem Hyperlipidemia, unspecified hyperlipidemia type E78.5 Active 50034027 Problem Tobacco abuse Z72.0 Active 756107473 ALLERGIES Substance Reaction Event Type Date Status Penicillin V Potassium Unknown Drug Allergy Nov, Active Erythromycin Base Unknown Drug Allergy Nov, Active Bactrim DS rash and trouble breathing Drug Allergy Nov, Active Codeine Unknown Drug Allergy Nov, Active ENCOUNTERS Encounter Location Date Diagnosis [facility] [id number] [place] [address] 53557- 0758 18 Dec, 2017 [facility] [id number] [place] [address] 25724- 0227 Dec, [facility] [id number] [place] [address] 08670- 2312 28 Nov, 2017 C. difficile diarrhea A04.72 [facility] [id number] [place] [address] 00481- 9584 26 Nov, 2017 Panic disorder F41.0 [facility] [id number] [place] [address] 16465- 8188 25 Nov, 2017 Diarrhea, unspecified type R19.7 [facility] [id number] [place] [address] 92386- 5623 19 Nov, 2017 [facility] [id number] [place] [address] 23757- 9690 13 Nov, 2017 Dysuria R30.0 ; Acute cystitis with hematuria N30.01 ; Flank pain R10.9 and Violation of controlled substance agreement Z91.14 [facility] [id number] [place] [address] 89947- 8246 16 Oct, 2017 [facility] [id number] [place] [address] 40415 -1418 14 Oct, 2017 [facility] [id number] [place] [address] 26988 -7342 14 Oct, 2017 Dysuria R30.0 and Acute cystitis with hematuria N30.01 [facility] [id number] [place] [address] 02414- 7491 Oct, [facility] [id number] [place] [address] 78958- 2144 Oct, [facility] [id number] [place] [address] 23680- 3342 Oct, Controlled substance agreement broken Z91.14 ; Violation of controlled substance agreement Z91.14 ; Other chronic pain G89.29 and Generalized anxiety disorder F41.1 [facility] [id number] [place] [address] 79168- 5421 Oct, [facility] [id number] [place] [address] 92811- 1967 Oct, [facility] [id number] [place] [address] 13220- 5423 Sep, Abscess L02.91 [facility] [address] 10240- 9510 Sep, [facility] [address] 09943- 6696 Sep, DM (diabetes mellitus) with complications E11.8 ; Generalized anxiety disorder F41.1 and Chronic pain syndrome G89.4 [place] [address] 69516- 0771 Sep, Generalized anxiety disorder F41.1 ; Chronic pain syndrome G89.4 ; Abnormal drug screen R89.2 and Other chest pain R07.89 [facility] [id number] [place] [address] 31346- 0451 Aug, Dysuria R30.0 [facility] [id number] [place] [address] 94524- 3014 Aug, Generalized anxiety disorder F41.1 ; Chronic pain syndrome G89.4 and Dysuria R30.0 [facility] [id number] [place] [address] 49227- 7596 Aug, Acute cystitis with hematuria N30.01 and Candidal dermatitis B37.2 [facility] [address] 41613- 6571 Aug, Dysuria R30.0 [facility] [id number] [place] [address] 37422- 5394 Aug, [facility] [id number] [place] [address] 69784 -5346 Aug, Dysuria R30.[address] 14222- 3039 Aug, [place] [address] 86501- 7403 July, Cervicalgia M54.2 ; Acute non intractable tension-type headache G44.209 ; Type 2 diabetes mellitus with hyperglycemia E11.65 and 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.4 [place] [address] 20162- 8969 July, Generalized anxiety disorder F41.1 and Chronic pain syndrome G89.[address] 33743- 4597 July, Abscess L02.[address] 52662- 5384 July, [place] [address] 29817- 8496 July, [place] [address] 91189- 7308 July, Type 2 diabetes mellitus with hyperglycemia E11.65 ; 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.4 ; Elevated [...] pain syndrome G89.4 and Vaginal candidiasis B37.3 [place] [id number] [place] [address] 46833- 7206 Jun, Generalized anxiety disorder F41.1 and Other chronic pain G89.[address] [place] [address]- 6445 Jun, [facility] [id number] [place] [address] 49572- 3124 Jun, [facility] [id number] [place] [address] 80270- 4771 Jun, Abnormal levels of other serum enzymes R74.8 [facility] [id number] [place] [address] 90605- 2554 Jun, Abnormal levels of other serum enzymes R74.8 [facility] [id number] [place] [address] 74843- 4508 Jun, Elevated liver enzymes R74.8 [facility] [id number] [place] [address] 76569- 9257 Jun, Elevated liver enzymes R74.8 [facility] [id number] [place] [address] 58715- 4731 May, Right upper quadrant pain R10.11 ; Cervicalgia M54.2 and High risk medication use Z79.899 [facility] [id number] [place] [address] 59536- 6506 May, Generalized anxiety disorder F41.1 and Other chronic pain G89.29 [facility] [id number] [place] [address] 93945- 9042 May, Canker sores oral K12.0 [facility] [id number] [place] [address] 16397- 7469 May, Generalized anxiety disorder F41.1 and Other chronic pain G89.29 [facility] [id number] [place] [address] 34543- 6143 May, [facility] [id number] [place] [address] 03315- 5959 Apr, [facility] [id number] [place] [address] 29499 -8108 Apr, Acute cystitis with hematuria N30.01 and Dysuria R30.0 [facility] [id number] [place] [address] 53266- 9554 Apr, [place] [id number] [place] [address] 80300- 9614 Apr, [place] [id number] [place] [address] 97927- 6442 Apr, DM (diabetes mellitus) with complications E11.8 [place] [address] 78069- 3744 06 Apr, 2017 DM (diabetes mellitus) with complications E11.8 [place] [id number] [place] [address] 81225- 2056 Apr, [place] [address] 04368- 9904 Apr, [place] [id number] [place] [address] 99972- 3844 Apr, Other chronic pain G89.29 ; Generalized anxiety disorder F41.1 ; Cervicalgia M54.2 and Controlled substance agreement signed Z79.899 [facility] [id number] [place] [address] 39081 -1516 Mar, Abdominal pain R10.9 and Viral gastroenteritis A08.4 [place] [id number] [place] [address] 30581- 2730 Mar, [place] [id number] [place] [address] 14862- 0031 Mar, [place] [address] 95892- 2496 Mar, DM (diabetes mellitus) with complications E11.8 ; Type 2 diabetes mellitus with hyperglycemia E11.65 ; 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.4 ; Essential hypertension I10 ; Bronchitis J40 ; Major depressive disorder , recurrent episode, moderate F33.1 ; Hyperlipidemia, unspecified hyperlipidemia type E78.5 ; Tobacco abuse Z72.0 ; Tobacco abuse counseling Z71.6 ; History of CVA with residual deficit I69.30 ; Gastroesophageal reflux disease, esophagitis presence not specified K21.9 and 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 [place] [address] 23512- 2905 Mar, [place] [address] 77718- 0979 Mar, DM (diabetes mellitus) with complications E11.8 ; Abnormal lung sounds R09.89 ; Bronchitis J40 and Hyperlipidemia, unspecified hyperlipidemia type E78.5 [facility] [place] [address] 51941 -2536 Mar, URI, acute J06.9 [place] [address] 58592- 5869 Mar, [place] [address] 68210- 5048 Mar, DM (diabetes mellitus) with complications E11.8 [place] [address] 47664- 2415 Mar, Other chronic pain G89.29 and Generalized anxiety disorder F41.1 [place] [address] 92071- 3646 Feb, [place] [address] 73181- 4947 Feb, Mass of left lung R91.8 and Cervicalgia M54.2 [place] [address] 40417- 5111 Feb, [place] [address] 60672- 7670 Feb, [facility] [place] [address] 71573 -5796 Feb, Cough R05 and Bronchitis J40 [facility] [id number] [place] [address] 75624 -6820 07 Feb, 2017 Acute nasopharyngitis J00 and Bronchitis J40 [facility] [address] 60780- 6946 06 Feb, 2017 Other chronic pain G89.29 and Generalized anxiety disorder F41.1 [place] [address] 42122- 7493 29 Jan, 2017 Encounter for immunization Z23 [facility] [address] 87638 -1951 Jan, [facility] [address] 21001 -5114 Jan, [place] [address] 83158- 9172 Jan, Canker sores oral K12.0 [place] [address] 53989- 7179 14 Jan, 2017 [place] [address] 45086- 3711 07 Jan, 2017 Other chronic pain G89.29 and Generalized anxiety disorder F41.1 [place] [address] 74107- 5297 06 Jan, 2017 Cough R05 and Bronchitis J40 [facility] [address] 85759 -3307 Jan, Bronchitis J40 [place] [address] 81704- 5155 Dec, Vitamin D deficiency E55.9 [place] [address] 85908- 8790 Dec, DM (diabetes mellitus) with complications E11.8 [place] [address] 66914- 1490 Dec, DM (diabetes mellitus) with complications E11.8 and Vitamin D deficiency E55.[address] 55374- 1240 10 Dec, 2016 DM (diabetes mellitus) with complications E11.8 ; Essential hypertension I10 ; Hyperlipidemia, unspecified hyperlipidemia type E78.5 ; Vitamin D deficiency E55.9 ; Gastroesophageal reflux disease, esophagitis presence not specified K21.9 ; 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 ; Other chronic pain G89.29 ; Encounter for immunization Z23 and Generalized anxiety disorder F41.[address] 73196- 2504 12 Nov, 2016 History of CVA with residual deficit I69.[address] 61041- 2005 11 Nov, 2016 DM (diabetes mellitus) with complications E11.[address] 76950- 6896 06 Nov, 2016 Left otitis media with effusion H65.92 ; Bronchitis J40 and Canker sores oral K12.[address] 45916- 6515 Oct, [place] [address] 42803- 2895 Oct, DM (diabetes mellitus) with complications E11.8 [place] [address] 51032- 2761 Oct, [place] [address] 52209- 5949 Sep, DM (diabetes mellitus) with complications E11.8 [place] [address] 42427- 0353 Sep, DM (diabetes mellitus) with complications E11.8 ; Essential hypertension I10 ; Gastroesophageal reflux disease, esophagitis presence not specified K21.9 ; Hyperlipidemia, unspecified hyperlipidemia type E78.5 ; Tobacco abuse Z72.0 ; Vitamin D deficiency E55.9 ; History of CVA with residual deficit I69.30 and Seasonal allergic rhinitis due to pollen J30.1 [facility] [id number] [place] [address] 40361- 3029 Sep, [facility] [id number] [place] [address] 52574- 8373 Aug, [facility] [id number] [place] [address] 87733 -2739 Aug, Dysuria R30.0 ; Acute cystitis with hematuria N30.01 and Middle ear effusion, right H65.91 [facility] [id number] [place] [address] 04287- 4878 Aug, Other complicated headache syndrome G44.59 [facility] [id number] [place] [address] 39280- 7620 Aug, DM (diabetes mellitus) with complications E11.8 [facility] [id number] [place] [address] 36609- 4461 Aug, Dysuria R30.0 [facility] [id number] [place] [address] 76336- 3755 Aug, Dysuria R30.0 [facility] [id number] [place] [address] 54668- 2832 Aug, [facility] [id number] [place] [address] 68992- 9778 July, [facility] [id number] [place] [address] 81371- 0934 July, [facility] [id number] [place] [address] 59080- 0728 July, DM (diabetes mellitus) with complications E11.8 [facility] [id number] [place] [address] 40498- 7509 July, Other complicated headache syndrome G44.59 [facility] [id number] [place] [address] 19428- 6089 July, [facility] [id number] [place] [address] 22071 -3100 July, Dysuria R30.0 and Acute cystitis with hematuria N30.01 [facility] [id number] [place] [address] 40471- 4590 July, [facility] [address] 72688- 7896 July, Other complicated headache syndrome G44.59 [facility] [id number] [place] [address] 83355 -3580 Jun, Exposure to strep throat Z20.818 and Acute upper respiratory infection, unspecified J06.9 [facility] [id number] [place] [address] 83404- 6886 Jun, [facility] [address] 07703- 1379 Jun, DM (diabetes mellitus) with complications E11.8 and Gastroesophageal reflux disease, esophagitis presence not specified K21.9 [facility] [id number] [place] [address] 26295- 7483 Jun, [facility] [id number] [place] [address] 69538- 2925 Jun, Dizziness R42 [facility] [id number] [place] [address] 20566 -7213 Jun, [facility] [id number] [place] [address] 14751- 4725 Jun, [facility] [address] 61276 -5245 May, Seasonal allergic rhinitis, unspecified allergic rhinitis trigger J30.2 [facility] [id number] [place] [address] 17106- 2678 May, [facility] [address] [place] [address]- 2484 May, DM (diabetes mellitus) with complications E11.8 [...] pollen J30.1 [facility] [id number] [place] [address] 82594- 4625 May, Gastroesophageal reflux disease, esophagitis presence not specified K21.9 [facility] [address] 54435- 4153 May, [facility] [address] [id number] [place] [address] 76174- 3524 Apr, [facility] [id number] [place] [address] 88517- 3998 Apr, [facility] [id number] [place] [address] 69419- 3641 Mar, [facility] [id number] [place] [address] 81631- 9344 Mar, [facility] [id number] [place] [address] 28650- 4406 Mar, [facility] [id number] [place] [address] 42546- 0803 Mar, [facility] [address] [id number] [place] [address] 45789- 4389 Feb, [facility] [address] 759673- 4935 Feb, [facility] [address] [id number] [place] [address] 009395- 7580 Feb, [facility] [address] [place] [address]- 0794 Feb, Major depressive disorder, recurrent episode, moderate F33.1 ; Generalized anxiety disorder F41.1 ; Essential hypertension I10 ; DM ( diabetes mellitus) with complications E11.8 ; Hyperlipidemia, unspecified hyperlipidemia type E78.5 ; 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 [address] [id number] [place] [address] 13550 -2022 Feb, Other viral agents as the cause of diseases classified elsewhere B97.89 and Acute upper respiratory infection, unspecified J06.9 [place] [address] 63214- 2872 Jan, [place] [address] [place] [id number] [place] [address] 89549- 9071 Jan, [facility] [address] [id number] [place] [address] 13264 -9735 Jan, Acute bronchitis, unspecified organism J20.9 [place] [address] [place] [id number] [place] [address] 71554- 0940 Jan, [place] [address] 04397- 4823 Jan, History of CVA with residual deficit I69.30 [place] [address] [place] [id number] [place] [address] 46072- 8533 Jan, [place] [address] [place] [id number] [place] [address] 66161- 2047 Jan, Acute bronchitis, unspecified organism J20.9 [place] [address] [place] [id number] [place] [address] 80401- 7517 Jan, [place] [address] [place] [id number] [place] [address] 05327- 6957 Dec, History of CVA with residual deficit I69.30 [place] [address] 70801- 4207 Dec, [place] [id number] [place] [address] 23117- 4953 Dec, Other chronic pain G89.29 ; DM (diabetes mellitus) with complications E11.8 and History of CVA with residual deficit I69.30 [place] [address] [address]- 0581 Nov, Major depressive disorder, recurrent episode, moderate F33.1 ; Irregular heart rhythm I49.9 ; Essential hypertension I10 ; History of CVA with residual deficit I69.30 ; DM (diabetes mellitus) with complications E11.8 ; Gastroesophageal reflux disease, esophagitis presence not specified K21.9 ; Hyperlipidemia, unspecified hyperlipidemia type E78.5 ; 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 ; Other chronic pain G89.29 and Generalized anxiety disorder F41.1 [address] [place] [address] 84203- 9109 Oct, Generalized anxiety disorder F41.1 ; Major depressive disorder, recurrent episode, moderate F33.1 ; Essential hypertension I10 ; History of CVA with residual deficit I69.30 ; DM (diabetes mellitus) with complications E11.8 ; Gastroesophageal reflux disease, esophagitis presence not specified K21.9 ; Hyperlipidemia, unspecified hyperlipidemia type E78.5 ; Other chronic pain G89.29 and Bacterial conjunctivitis of left eye H10.9 [place] [address] [address]- 1884 Sep, Chronic pain syndrome G89.4 and DM (diabetes mellitus) with complications E11.8 [place] [id number] [place] [address] 97044- 7241 Sep, Irregular heart rhythm I49.9 ; Routine health maintenance Z00.00 ; Essential hypertension I10 ; History of CVA with residual deficit I69.30 ; Gastroesophageal reflux disease, esophagitis presence not specified K21.9 ; DM (diabetes mellitus) with complications E11.8 ; Hyperlipidemia, unspecified hyperlipidemia type E78.5 and Other complicated headache syndrome G44.59 [place] [id number] [place] [id number] Jun, [facility] [address] [facility] [id number], [place] [address] Jun, [facility] [address] [facility] [id number], [place] [address] Aug, [facility] [address] [facility] [id number], [place] [address] Jun, IMMUNIZATIONS No Known Immunizations SOCIAL HISTORY Never Assessed REASON FOR VISIT [facility] follow up. Was in the ER last week for dizziness , UTI symptoms and "just not feeling good". RHONDA Daniels PLAN OF CARE Activity Details Follow Up 3 Months, prn Reason:CHM/ HTN/DM w/ Fifi VITAL SIGNS Height 62 in 2017-12-01 Weight 195.6 lbs 2017-12-01 Temperature 97.9 degrees Fahrenheit 2017-12-01 Heart Rate 86 bpm 2017-12-01 Respiratory Rate 18 2017-12-01 BMI 35.77 kg/m2 2017-12-01 Blood pressure systolic 104 mmHg 2017-12-01 Blood pressure diastolic 68 mmHg 2017-12-01 MEDICATIONS Medication Instructions Dosage Frequency Start Date End Date Duration Status Hydrochlorothiazide 25 MG Orally Once a day 1 tablet 24h 90 days Active Potassium Chloride ER 10 meq Orally Twice a day TAKE ONE TABLET BY MOUTH TWICE A DAY WITH FOOD 12h 90 Active Atorvastatin Calcium 80 MG Orally Once a day 1 tablet 24h 90 days Active Senna S 8.6-50 MG Orally twice a day 1 tablet 12h 10 Jul, 2018 90 days Active One Touch/One Touch II Starter 1 glucometer subcutaneously 3 times a day to take blood sugars daily Dispense as insurance allows 8h Sep, Active Pen [place] 31 gauge subcutaneously twice a day DX: E11.8 as directed Active Humalog 100 UNIT/ML Subcutaneous 3 times a day 10 units with meals 8h July, 12 months Active Bath/Shower Seat 1 please provide one adult shower seat for patient use one time shower/bath seat for bathing Dec, Active Walker - as directed Jan, Active ASA Oral Once a day 1 tab 24h Active Lancets - Active Test strips 8h Active OneTouch Delica Lancets 33G 33 TEST BLOOD SUGAR THREE TIMES A DAY E11.8 Active BD Pen Needle Mini U/F 31 gauge USE ONCE DAILY WITH INSULIN PENS 90 Active AZO Cranberry 250-30 MG Active Famotidine 20 mg Orally Twice a day 1 tablet 12h 21 Apr, 2017 90 days Active Metoprolol Tartrate 25 MG Orally Twice a day 1 tablet with food 12h 90 days Active Levemir Flexpen 100 UNIT/ML Subcutaneous 2 times a day 35 units 12h 12 months Active Pantoprazole Sodium 20 mg Orally 2 times a day 1 tablets 12h 24 May, 2016 90 days Active Naproxen 500 mg Orally bid prn 1 tablet Active Plavix 75 MG Orally Once a day 1 tablet 24h 90 days Active MetFORMIN HCl ER 750 MG Orally twice a day 1 tablet with meals 12h 90 days Active Aspir-Low 81 TAKE ONE TABLET BY MOUTH DAILY 30 Active Diltiazem HCl ER 120 MG Orally Once a day 1 capsule on an empty stomach in the morning 24h 90 days Active OneTouch Verio - TEST BLOOD SUGAR FOUR TIMES A DAY E11.8 30 Active RESULTS Name Result Date Reference Range UA LONG DIP (IN HOUSE) 2017-12-01 Lot # [id number] Exp date 06/2018 Clarity cloudy Color yellow Odor slight GLU 2+ STEFANY neg KET neg SG 1.025 BLO neg pH 6.0 Protein neg URO 0.2 NIT neg HUSSEIN neg Lot # Exp date CT Scan : Abd & Pelvis w/o contrast (STONE PROTOCOL) 2017-12-05 PROCEDURES Procedure Date Ordered Result Body Site URINALYSIS, AUTO, W/O SCOPE Dec 01, 2017 [facility] VISIT ESTABLISHED PATIENT Dec 01, 2017 INSTRUCTIONS MEDICATIONS ADMINISTERED No Known Medications MEDICAL (GENERAL) HISTORY Type Description Date Medical History diabetes mellitus Medical History hyperlipidemia Medical History hypertension Medical History Anxiety disorder Medical History Blood Clotting Disorder- Dr Galvan at [facility] Medical History Possible Anemia (currently under work up) - Dr Galvan [facility] Medical History irregular heart beat-sees [...] Has been hospitalized at then transfered to [place]. 2014 Hospitalization History Child Hospitalization History abd pain and shakiness - [facility] ED visit [facility] Hospitalization History [facility] ED for URI 1/27/18 Hospitalization History via [facility] er 08/16/17
--- OUTSIDE RECORDS SUMMARY | 2018-01-23 16:53 | XMS REPORT ---
Author Author CHESTER JOYCE Organization [facility] Address [address] [place] [address] Care Team Providers Care Investigations Manager Name Role Phone GRISELDA JOYCETA Unavailable PROBLEMS Type Condition ICD9-CM Code RFB11-WB Code Onset Dates Condition Status SNOMED Code Problem Tobacco abuse counseling Z71.6 Active 814456491 Problem History of CVA with residual deficit I69.30 Active 291132638 Problem Seasonal allergic rhinitis due to pollen J30.1 Active 99582747 Problem Panic disorder F41.0 Active 802584921 Problem Vitamin D deficiency E55.9 Active 19739868 Problem Abnormal drug screen R89.2 Active 057455053 Problem Type 2 diabetes mellitus with hyperglycemia E11.65 Active 23551538 Problem 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 Active 854205988 Problem Acute non intractable tension-type headache G44.209 Active 693691681 Problem Chronic pain syndrome G89.4 Active 098602236 Problem Generalized anxiety disorder F41.1 Active 50269793 Problem 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 Active 727737891 Problem Major depressive disorder, recurrent episode, moderate F33.1 Active 470934388 Problem Elevated liver enzymes R74.8 Active 272068607 Problem Gastroesophageal reflux disease, esophagitis presence not specified K21.9 Active 042572844 Problem Essential hypertension I10 Active 51650485 Problem DM (diabetes mellitus) with complications E11.8 Active 61084005 Problem Other chronic pain G89.29 Active 12264121 Problem Hyperlipidemia, unspecified hyperlipidemia type E78.5 Active 64771675 Problem Tobacco abuse Z72.0 Active 743237478 ALLERGIES Substance Reaction Event Type Date Status Penicillin V Potassium Unknown Drug Allergy Nov, Active Erythromycin Base Unknown Drug Allergy Nov, Active Bactrim DS rash and trouble breathing Drug Allergy Nov, Active Codeine Unknown Drug Allergy Nov, Active ENCOUNTERS Encounter Location Date Diagnosis [facility] [address] [facility] [id number] [place] [address] 42244- 2722 18 Dec, 2017 [facility] [address] [place] [id number] [place] [address] 30761- 8193 Dec, [facility] [id number] [place] [address] 43004- 7177 28 Nov, 2017 C. difficile diarrhea A04.72 [place] [address] [place] [place] [id number] [place] [address] 07486- 7330 26 Nov, 2017 Panic disorder F41.0 [facility] [address] [place] [place] [id number] [place] [address] 88479- 6749 25 Nov, 2017 Diarrhea, unspecified type R19.7 [place] [address] [place] [id number] [place] [address] 03057- 1125 19 Nov, 2017 [place] [address] [place] [id number] [place] [address] 20037- 7428 13 Nov, 2017 Dysuria R30.0 ; Acute cystitis with hematuria N30.01 ; Flank pain R10.9 and Violation of controlled substance agreement Z91.14 [facility] [id number] [place] [address] 18985- 4092 16 Oct, 2017 [facility] [id number] [place] [address] 04174 -5570 Oct, [facility] [id number] [place] [address] 18901 -4122 14 Oct, 2017 Dysuria R30.0 and Acute cystitis with hematuria N30.01 [facility] [id number] [place] [address] 78387- 0122 Oct, [facility] [id number] [place] [address] 27516- 4538 Oct, [facility] [id number] [place] [address] 54801- 7504 Oct, Controlled substance agreement broken Z91.14 ; Violation of controlled substance agreement Z91.14 ; Other chronic pain G89.29 and Generalized anxiety disorder F41.1 [facility] [id number] [place] [address] 14091- 7051 Oct, [facility] [address] 73312- 1177 Oct, [facility] [id number] [place] [address] 31035- 5603 Sep, Abscess L02.91 [facility] [address] 41958- 1266 Sep, [facility] [address] [place] [id number] [place] [address] 93574- 2397 Sep, DM (diabetes mellitus) with complications E11.8 ; Generalized anxiety disorder F41.1 and Chronic pain syndrome G89.4 [place] [address] 59128- 0896 Sep, Generalized anxiety disorder F41.1 ; Chronic pain syndrome G89.4 ; Abnormal drug screen R89.2 and Other chest pain R07.89 [facility] [id number] [place] [address] 52013- 4316 Aug, Dysuria R30.0 [facility] [id number] [place] [address] 07319- 7373 Aug, Generalized anxiety disorder F41.1 ; Chronic pain syndrome G89.4 and Dysuria R30.0 [facility] [id number] [place] [address] 39318- 8703 Aug, Acute cystitis with hematuria N30.01 and Candidal dermatitis B37.2 [facility] [id number] [place] [address] 65734- 0654 Aug, Dysuria R30.0 [facility] [id number] [place] [address] 76336- 8484 Aug, [facility] [id number] [place] [address] 32613 -9195 Aug, Dysuria R30.0 [place] [id number] [place] [address] 86452- 9390 Aug, [place] [id number] [place] [address] 69703- 4286 July, Cervicalgia M54.2 ; Acute non intractable tension-type headache G44.209 ; Type 2 diabetes mellitus with hyperglycemia E11.65 and USP current use of insulin Z79.4 [place] [id number] [place] [address] 84096- 6192 July, Generalized anxiety disorder F41.1 and Chronic pain syndrome G89.[address] 12237- 0689 July, Abscess L02.[address] 42051- 7189 July, [place] [id number] [place] [address] 17422- 1295 July, [place] [id number] [place] [address] 56645- 4630 July, Type 2 diabetes mellitus with hyperglycemia E11.65 ; USP current use of insulin Z79.4 ; Elevated [...] pain syndrome G89.4 and Vaginal candidiasis B37.3 [place] [id number] [place] [address] 03051- 4865 Jun, Generalized anxiety disorder F41.1 and Other chronic pain G89.[address] 56660- 0560 Jun, [facility] [address] [place] [address] 37772- 5704 Jun, [facility] [id number] [place] [address] 64369- 7029 Jun, Abnormal levels of other serum enzymes R74.8 [facility] [id number] [place] [address] 01138- 3625 Jun, Abnormal levels of other serum enzymes R74.8 [facility] [id number] [place] [address] 01395- 6584 Jun, Elevated liver enzymes R74.8 [facility] [id number] [place] [address] 08523- 4746 Jun, Elevated liver enzymes R74.8 [facility] [id number] [place] [address] 09356- 4842 May, Right upper quadrant pain R10.11 ; Cervicalgia M54.2 and High risk medication use Z79.899 [facility] [id number] [place] [address] 46101- 4228 May, Generalized anxiety disorder F41.1 and Other chronic pain G89.29 [facility] [id number] [place] [address] 23208- 2721 May, Canker sores oral K12.0 [facility] [id number] [place] [address] 39217- 1571 May, Generalized anxiety disorder F41.1 and Other chronic pain G89.29 [facility] [id number] [place] [address] 90760- 4469 May, [facility] [id number] [place] [address] 01675- 8319 Apr, [facility] [id number] [place] [address] 17037 -9423 Apr, Acute cystitis with hematuria N30.01 and Dysuria R30.0 [facility] [id number] [place] [address] 89722- 0084 Apr, [place] [id number] [place] [address] 08798- 7373 Apr, [facility] [id number] [place] [address] 90616- 3043 Apr, DM (diabetes mellitus) with complications E11.8 [facility] [id number] [place] [address] 60902- 8808 06 Apr, 2017 DM (diabetes mellitus) with complications E11.8 [place] [id number] [place] [address] 63953- 2370 Apr, [place] [address] 66267- 8749 Apr, [place] [id number] [place] [address] 32901- 4144 Apr, Other chronic pain G89.29 ; Generalized anxiety disorder F41.1 ; Cervicalgia M54.2 and Controlled substance agreement signed Z79.899 [facility] [id number] [place] [address] 67204 -1598 Mar, Abdominal pain R10.9 and Viral gastroenteritis A08.4 [place] [id number] [place] [address] 85604- 8886 Mar, [facility] [id number] [place] [address] 83903- 5112 Mar, [facility] [id number] [place] [address] 97932- 8217 Mar, DM (diabetes mellitus) with complications E11.8 ; Type 2 diabetes mellitus with hyperglycemia E11.65 ; 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 ; Essential hypertension I10 ; Bronchitis J40 ; Major depressive disorder , recurrent episode, moderate F33.1 ; Hyperlipidemia, unspecified hyperlipidemia type E78.5 ; Tobacco abuse Z72.0 ; Tobacco abuse counseling Z71.6 ; History of CVA with residual deficit I69.30 ; Gastroesophageal reflux disease, esophagitis presence not specified K21.9 and 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 [place] [address] 55411- 3974 Mar, [place] [address] 95921- 7509 Mar, DM (diabetes mellitus) with complications E11.8 ; Abnormal lung sounds R09.89 ; Bronchitis J40 and Hyperlipidemia, unspecified hyperlipidemia type E78.5 [facility] [place] [address] 82632 -2214 Mar, URI, acute J06.9 [place] [address] 99271- 7190 Mar, [place] [address] 02963- 8770 Mar, DM (diabetes mellitus) with complications E11.8 [place] [address] 35637- 6120 Mar, Other chronic pain G89.29 and Generalized anxiety disorder F41.1 [place] [address] 63128- 9858 Feb, [place] [address] 42335- 7217 Feb, Mass of left lung R91.8 and Cervicalgia M54.2 [place] [address] 93320- 0826 Feb, [place] [address] 09825- 4047 Feb, [facility] [place] [address] 19015 -0326 Feb, Cough R05 and Bronchitis J40 [facility] [address] 75549 -0804 07 Feb, 2017 Acute nasopharyngitis J00 and Bronchitis J40 [place] [address] 43300- 0545 06 Feb, 2017 Other chronic pain G89.29 and Generalized anxiety disorder F41.1 [facility] [address] 27329- 6065 29 Jan, 2017 Encounter for immunization Z23 [facility] [address] 18869 -2702 Jan, [facility] [address] 17017 -4841 Jan, [place] [address] 68676- 1101 16 Jan, 2017 Canker sores oral K12.0 [place] [address] 26223- 2125 14 Jan, 2017 [place] [address] 61860- 3480 07 Jan, 2017 Other chronic pain G89.29 and Generalized anxiety disorder F41.1 [place] [address] 74269- 7449 06 Jan, 2017 Cough R05 and Bronchitis J40 [facility] [address] 23119 -0282 Jan, Bronchitis J40 [place] [address] 04653- 7935 Dec, Vitamin D deficiency E55.9 [place] [address] 53970- 2678 Dec, DM (diabetes mellitus) with complications E11.8 [place] [address] 96151- 2110 Dec, DM (diabetes mellitus) with complications E11.8 and Vitamin D deficiency E55.9 [place] [address] [place] [id number] [place] [address] 86968- 1743 10 Dec, 2016 DM (diabetes mellitus) with complications E11.8 ; Essential hypertension I10 ; Hyperlipidemia, unspecified hyperlipidemia type E78.5 ; Vitamin D deficiency E55.9 ; Gastroesophageal reflux disease, esophagitis presence not specified K21.9 ; 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 ; Other chronic pain G89.29 ; Encounter for immunization Z23 and Generalized anxiety disorder F41.1 [place] [address] 25204- 2568 12 Nov, 2016 History of CVA with residual deficit I69.[address] 03374- 1567 11 Nov, 2016 DM (diabetes mellitus) with complications E11.[address] 23897- 5501 06 Nov, 2016 Left otitis media with effusion H65.92 ; Bronchitis J40 and Canker sores oral K12.0 [place] [address] 88409- 5550 Oct, [address] 11989- 6720 Oct, DM (diabetes mellitus) with complications E11.8 [place] [address] [place] [id number] [place] [address] 00912- 8620 Oct, [place] [address] 92035- 6549 Sep, DM (diabetes mellitus) with complications E11.8 [place] [address] 71521- 4693 Sep, DM (diabetes mellitus) with complications E11.8 ; Essential hypertension I10 ; Gastroesophageal reflux disease, esophagitis presence not specified K21.9 ; Hyperlipidemia, unspecified hyperlipidemia type E78.5 ; Tobacco abuse Z72.0 ; Vitamin D deficiency E55.9 ; History of CVA with residual deficit I69.30 and Seasonal allergic rhinitis due to pollen J30.1 [facility] [address] [address]- 1853 Sep, [facility] [id number] [place] [address] 25749- 2927 Aug, [facility] [address] [place] [address] 23070 -0099 Aug, Dysuria R30.0 ; Acute cystitis with hematuria N30.01 and Middle ear effusion, right H65.91 [facility] [address] [place] [id number] [place] [address] 41737- 8866 Aug, Other complicated headache syndrome G44.59 [facility] [id number] [place] [address] 84826- 3776 Aug, DM (diabetes mellitus) with complications E11.8 [facility] [address] [id number] [place] [address] 74733- 6420 Aug, Dysuria R30.0 [facility] [id number] [place] [address] 97123- 6788 Aug, Dysuria R30.0 [facility] [id number] [place] [address] 95144- 2165 Aug, [facility] [address] [place] [address] 26254- 3397 July, [facility] [id number] [place] [address] 79184- 9987 July, [facility] [address] [place] [address] 58351- 4624 July, DM (diabetes mellitus) with complications E11.8 [facility] [id number] [place] [address] 56773- 7191 July, Other complicated headache syndrome G44.59 [facility] [id number] [place] [address] 41695- 9137 July, [facility] [id number] [place] [address] 64080 -9713 July, Dysuria R30.0 and Acute cystitis with hematuria N30.01 [facility] [id number] [place] [address] 95854- 3483 July, [facility] [address] 72758- 5465 July, Other complicated headache syndrome G44.59 [facility] [address] 10841 -0663 Jun, Exposure to strep throat Z20.818 and Acute upper respiratory infection, unspecified J06.9 [facility] [address] 30990- 2640 Jun, [facility] [address] 21976- 5561 Jun, DM (diabetes mellitus) with complications E11.8 and Gastroesophageal reflux disease, esophagitis presence not specified K21.9 [place] [address] 90159- 3638 Jun, [facility] [id number] [place] [address] 19089- 1006 Jun, Dizziness R42 [facility] [address] 39721 -7746 Jun, [facility] [id number] [place] [address] 46993- 7173 Jun, [facility] [address] 96304 -0415 May, Seasonal allergic rhinitis, unspecified allergic rhinitis trigger J30.2 [facility] [address] [id number] [place] [address] 49731- 7685 May, [facility] [address] 99575- 1441 May, DM (diabetes mellitus) with complications E11.8 [...] J30.1 [facility] [address] [place] [id number] [place] [address] 72090- 4290 May, Gastroesophageal reflux disease, esophagitis presence not specified K21.9 [facility] [address] [place] [id number] [place] [address] 20567- 3357 May, [facility] [address] [place] [place] [id number] [place] [address] 77451- 8295 Apr, [facility] [address] [place] [id number] [place] [address] 49545- 7401 Apr, [facility] [address] [place] [place] [id number] [place] [address] 92093- 8109 Mar, [facility] [address] [place] [id number] [place] [address] 52831- 6432 Mar, [facility] [address] [place] [id number] [place] [address] 40167- 0725 Mar, [facility] [address] [place] [place] [id number] [place] [address] 47633- 3074 Mar, [facility] [address] [place] [place] [id number] [place] [address] 37176- 9157 Feb, [facility] [address] [place] [place] [id number] [place] [address] [phone]- 8584 Feb, [facility] [address] [place] [id number] [place] [address] 54729761- 5702 Feb, [facility] [address] [place] [place] [id number] [place] [address] 12145- 1706 Feb, Major depressive disorder, recurrent episode, moderate F33.1 ; Generalized anxiety disorder F41.1 ; Essential hypertension I10 ; DM ( diabetes mellitus) with complications E11.8 ; Hyperlipidemia, unspecified hyperlipidemia type E78.5 ; 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 and Gastroesophageal reflux disease, esophagitis presence not specified K21.9 [facility] [address] [place] [place] [id number] [place] [address] 35650 -0809 Feb, Other viral agents as the cause of diseases classified elsewhere B97.89 and Acute upper respiratory infection, unspecified J06.9 [place] [address] [place] [id number] [place] [address] 33235- 3476 Jan, [place] [address] [place] [id number] [place] [address] 04134- 3426 Jan, [facility] [address] [place] [id number] [place] [address] 67506 -9843 Jan, Acute bronchitis, unspecified organism J20.9 [place] [address] [place] [id number] [place] [address] 55783- 2247 Jan, [place] [address] [place] [id number] [place] [address] 34434- 9142 Jan, History of CVA with residual deficit I69.30 [place] [address] [place] [id number] [place] [address] 88921- 9131 Jan, [place] [address] [place] [id number] [place] [address] 13088- 0671 Jan, Acute bronchitis, unspecified organism J20.9 [place] [address] [place] [id number] [place] [address] 72972- 6676 Jan, [place] [address] [place] [id number] [place] [address] 60097- 2640 Dec, History of CVA with residual deficit I69.30 [place] [address] [place] [id number] [place] [address] 68482- 8380 Dec, [place] [address] [place] [address] 69401- 7389 Dec, Other chronic pain G89.29 ; DM (diabetes mellitus) with complications E11.8 and History of CVA with residual deficit I69.30 [place] [address] [place] [address] 61589- 3887 Nov, Major depressive disorder, recurrent episode, moderate F33.1 ; Irregular heart rhythm I49.9 ; Essential hypertension I10 ; History of CVA with residual deficit I69.30 ; DM (diabetes mellitus) with complications E11.8 ; Gastroesophageal reflux disease, esophagitis presence not specified K21.9 ; Hyperlipidemia, unspecified hyperlipidemia type E78.5 ; 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 ; Other chronic pain G89.29 and Generalized anxiety disorder F41.1 [place] [id number] [place] [address] 98217- 7684 Oct, Generalized anxiety disorder F41.1 ; Major depressive disorder, recurrent episode, moderate F33.1 ; Essential hypertension I10 ; History of CVA with residual deficit I69.30 ; DM (diabetes mellitus) with complications E11.8 ; Gastroesophageal reflux disease, esophagitis presence not specified K21.9 ; Hyperlipidemia, unspecified hyperlipidemia type E78.5 ; Other chronic pain G89.29 and Bacterial conjunctivitis of left eye H10.9 [place] [address] [place] [phone] Sep, Chronic pain syndrome G89.4 and DM (diabetes mellitus) with complications E11.8 [place] [id number] [place] [phone] [phone] Sep, Irregular heart rhythm I49.9 ; Routine health maintenance Z00.00 ; Essential hypertension I10 ; History of CVA with residual deficit I69.30 ; Gastroesophageal reflux disease, esophagitis presence not specified K21.9 ; DM (diabetes mellitus) with complications E11.8 ; Hyperlipidemia, unspecified hyperlipidemia type E78.5 and Other complicated headache syndrome G44.59 [place] [address] [address] [place] [id number] [place] [phone] 14 Jun, 2014 [facility] [address] [facility] [id number] [place] [address] Jun, [facility] [address] [facility] [id number] [address] Aug, [facility] [address] [facility] [id number] [place] [id number] Jun, IMMUNIZATIONS No Known Immunizations SOCIAL HISTORY Never Assessed REASON FOR VISIT Abdominal pain x1 week K Светлана ELLIS, Mucus like diarrhea x3 days PLAN OF CARE Activity Details Follow Up pending lab results, prn Reason: VITAL SIGNS Height 62 in 2017-12-13 Weight 194.2 lbs 2017-12-13 Temperature 97.2 degrees Fahrenheit 2017-12-13 Heart Rate 89 bpm 2017-12-13 Respiratory Rate 18 2017-12-13 BMI 35.52 kg/m2 2017-12-13 Blood pressure systolic 110 mmHg 2017-12-13 Blood pressure diastolic 62 mmHg 2017-12-13 MEDICATIONS Medication Instructions Dosage Frequency Start Date End Date Duration Status Famotidine 20 mg Orally Twice a day 1 tablet 12h Apr, 90 days Active ASA Oral Once a day 1 tab 24h Active Levemir Flexpen 100 UNIT/ML Subcutaneous 2 times a day 35 units 12h 12 months Active Plavix 75 MG Orally Once a day 1 tablet 24h 90 days Active Walker - as directed Jan, Active BD Pen Needle Mini U/F 31 gauge USE ONCE DAILY WITH INSULIN PENS 90 Active AZO Cranberry 250-30 MG Active Pen Adamant 31 gauge subcutaneously twice a day DX: E11.8 as directed Active One Touch/One Touch II Starter 1 glucometer subcutaneously 3 times a day to take blood sugars daily Dispense as insurance allows 8h Sep, Active Bath/Shower Seat 1 please provide one adult shower seat for patient use one time shower/bath seat for bathing Dec, Active Senna S 8.6-50 MG Orally twice a day 1 tablet 12h July, 90 days Active Pantoprazole Sodium 20 mg Orally 2 times a day 1 tablets 12h 24 May, 2016 90 days Active Lancets - Active Atorvastatin Calcium 80 MG Orally Once a day 1 tablet 24h 90 days Active OneTouch Delica Lancets 33G 33 TEST BLOOD SUGAR THREE TIMES A DAY E11.8 Active Zofran ODT 4 MG Orally every 4 hrs 1 tablet on the tongue and allow to dissolve as needed 4h 25 Nov, 2017 Active Hydrochlorothiazide 25 MG Orally Once a day 1 tablet 24h 90 days Active Diltiazem HCl ER 120 MG Orally Once a day 1 capsule on an empty stomach in the morning 24h 90 days Active MetFORMIN HCl ER 750 MG Orally twice a day 1 tablet with meals 12h 90 days Active Potassium Chloride ER 10 meq Orally Twice a day TAKE ONE TABLET BY MOUTH TWICE A DAY WITH FOOD 12h 90 Active Aspir-Low 81 TAKE ONE TABLET BY MOUTH DAILY 30 Active OneTouch Verio - TEST BLOOD SUGAR FOUR TIMES A DAY E11.8 30 Active Test strips 8h Active Naproxen 500 mg Orally bid prn 1 tablet Active Metoprolol Tartrate 25 MG Orally Twice a day 1 tablet with food 12h 90 days Active Humalog 100 UNIT/ML Subcutaneous 3 times a day 10 units with meals 8h July, 12 months Active RESULTS No Results PROCEDURES Procedure Date Ordered Result Body [facility] Dec [facility], 2017 [facility] VISIT ESTABLISHED PATIENT Dec 13, 2017 TEST FOR BLOOD, FECES Dec 13, 2017 INSTRUCTIONS MEDICATIONS ADMINISTERED No Known Medications MEDICAL (GENERAL) HISTORY Type Description Date Medical History diabetes mellitus Medical History hyperlipidemia Medical History hypertension Medical History Anxiety disorder Medical History Blood Clotting Disorder- Dr Galvan at [facility] Medical History Possible Anemia (currently under work up) - Dr Galvan [facility] Medical History irregular heart beat-sees [...] Has been hospitalized at then transfered to [place]. 2014 Hospitalization History Child Hospitalization History abd pain and shakiness - [facility] ED visit [facility] Hospitalization History [facility] ED for URI 04/16/17 Hospitalization History [facility] 08/16/17
--- OUTSIDE RECORDS SUMMARY | 2018-01-23 16:54 | XMS REPORT ---
Author Author SOTERO Stewart Organization [facility] Address [address] [place] [address] Care Team Providers Care School Psychologist Assistant Name Role Phone Pat SOTERO Unavailable PROBLEMS Type Condition ICD9-CM Code NOO70-LE Code Onset Dates Condition Status SNOMED Code Problem Tobacco abuse counseling Z71.6 Active 060947642 Problem History of CVA with residual deficit I69.30 Active 358547743 Problem Seasonal allergic rhinitis due to pollen J30.1 Active 57831217 Problem Panic disorder F41.0 Active 760364262 Problem Vitamin D deficiency E55.9 Active 39387605 Problem Abnormal drug screen R89.2 Active 336069156 Problem Type 2 diabetes mellitus with hyperglycemia E11.65 Active 84966962 Problem 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 Active 259196861 Problem Acute non intractable tension-type headache G44.209 Active 836503304 Problem Chronic pain syndrome G89.4 Active 072289645 Problem Generalized anxiety disorder F41.1 Active 86382012 Problem 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 Active 869384998 Problem Major depressive disorder, recurrent episode, moderate F33.1 Active 761877287 Problem Elevated liver enzymes R74.8 Active 313683663 Problem Gastroesophageal reflux disease, esophagitis presence not specified K21.9 Active 153819161 Problem Essential hypertension I10 Active 19596042 Problem DM (diabetes mellitus) with complications E11.8 Active 69329619 Problem Other chronic pain G89.29 Active 47412911 Problem Hyperlipidemia, unspecified hyperlipidemia type E78.5 Active 09906392 Problem Tobacco abuse Z72.0 Active 047691640 ALLERGIES No Information ENCOUNTERS Encounter Location Date Diagnosis [facility] [address] [facility] [id number] [address] Dec, [facility] [address] [id number] [address] Dec, [place] [id number] [place] [address] 00114- 3911 28 Nov, 2017 C. difficile diarrhea A04.72 [place] [id number] [place] [address] 53647- 0324 26 Nov, 2017 Panic disorder F41.0 [place] [id number] [place] [address] 74768- 0427 25 Nov, 2017 Diarrhea, unspecified type R19.7 [place] [id number] [place] [address] 16400- 4531 19 Nov, 2017 [place] [address] 50907- 4503 13 Nov, 2017 Dysuria R30.0 ; Acute cystitis with hematuria N30.01 ; Flank pain R10.9 and Violation of controlled substance agreement Z91.14 [place] [id number] [place] [address] 53578- 6233 16 Oct, 2017 [facility] [id number] [place] [address] 43160 -7173 Oct, [facility] [id number] [place] [address] 25185 -1496 Oct, Dysuria R30.0 and Acute cystitis with hematuria N30.01 [place] [id number] [place] [address] 43646- 7690 Oct, [place] [id number] [place] [address] 84193- 1012 Oct, [place] [id number] [place] [address] 38393- 6463 Oct, Controlled substance agreement broken Z91.14 ; Violation of controlled substance agreement Z91.14 ; Other chronic pain G89.29 and Generalized anxiety disorder F41.1 [place] [id number] [place] [address] 77357- 6858 Oct, [place] [id number] [place] [address] 05530- 3123 Oct, [facility] [address] 07447- 5149 Sep, Abscess L02.91 [facility] [address] 56232- 2986 Sep, [facility] [address] 18082- 0115 Sep, DM (diabetes mellitus) with complications E11.8 ; Generalized anxiety disorder F41.1 and Chronic pain syndrome G89.4 [place] [address] 70373- 5896 Sep, Generalized anxiety disorder F41.1 ; Chronic pain syndrome G89.4 ; Abnormal drug screen R89.2 and Other chest pain R07.89 [facility] [address] 94626- 8600 Aug, Dysuria R30.0 [facility] [address] 11409- 4545 Aug, Generalized anxiety disorder F41.1 ; Chronic pain syndrome G89.4 and Dysuria R30.0 [facility] [id number] [place] [address] 98420- 1475 Aug, Acute cystitis with hematuria N30.01 and Candidal dermatitis B37.2 [facility] [id number] [place] [address] 91788- 7951 Aug, Dysuria R30.0 [facility] [id number] [place] [address] 54151- 6498 Aug, [facility] [id number] [place] [address] 44383 -8628 Aug, Dysuria R30.0 [facility] [id number] [place] [address] 33077- 6950 Aug, [place] [id number] [place] [address] 08992- 2509 July, Cervicalgia M54.2 ; Acute non intractable tension-type headache G44.209 ; Type 2 diabetes mellitus with hyperglycemia E11.65 and 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 [place] [id number] [place] [address] 72047- 6921 July, Generalized anxiety disorder F41.1 and Chronic pain syndrome G89.4 [place] [id number] [place] [address] 44395- 4575 July, Abscess L02.91 [place] [address] 27225- 8557 July, [place] [id number] [place] [address] 92207- 4151 July, [place] [id number] [place] [address] 58462- 2876 July, Type 2 diabetes mellitus with hyperglycemia [...] pain syndrome G89.4 and Vaginal candidiasis B37.3 [place] [id number] [place] [address] 46077- 8379 Jun, Generalized anxiety disorder F41.1 and Other chronic pain G89.29 [place] [id number] [place] [address] 39263- 6316 Jun, [place] [id number] [place] [address] 89663- 7013 Jun, [place] [id number] [place] [address] 34784- 7396 Jun, Abnormal levels of other serum enzymes R74.8 [facility] [id number] [place] [address] 10636- 6648 Jun, Abnormal levels of other serum enzymes R74.8 [facility] [id number] [place] [address] 64788- 2686 Jun, Elevated liver enzymes R74.8 [facility] [id number] [place] [address] 34747- 4995 Jun, Elevated liver enzymes R74.8 [place] [id number] [place] [address] 45567- 0870 May, Right upper quadrant pain R10.11 ; Cervicalgia M54.2 and High risk medication use Z79.899 [place] [id number] [place] [address] 76756- 5680 May, Generalized anxiety disorder F41.1 and Other chronic pain G89.29 [facility] [id number] [place] [address] 75497- 6039 May, Canker sores oral K12.0 [place] [id number] [place] [address] 35313- 2001 May, Generalized anxiety disorder F41.1 and Other chronic pain G89.29 [facility] [id number] [place] [address] 19152- 6413 May, [facility] [id number] [place] [address] 33641- 6031 Apr, [facility] [id number] [place] [address] 77068 -5313 Apr, Acute cystitis with hematuria N30.01 and Dysuria R30.0 [facility] [id number] [place] [address] 16219- 7547 Apr, [facility] [id number] [place] [address] 08644- 8145 Apr, [facility] [address] 94459- 8827 08 Apr, 2017 DM (diabetes mellitus) with complications E11.8 [facility] [id number] [place] [address] 84026- 5155 06 Apr, 2017 DM (diabetes mellitus) with complications E11.8 [place] [id number] [place] [address] 78489- 2896 03 Apr, 2017 [place] [address] 41809- 3326 Apr, [place] [id number] [place] [address] 70824- 5833 Apr, Other chronic pain G89.29 ; Generalized anxiety disorder F41.1 ; Cervicalgia M54.2 and Controlled substance agreement signed Z79.899 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 ; Essential hypertension I10 ; Bronchitis J40 ; Major depressive disorder , recurrent episode, moderate F33.1 ; Hyperlipidemia, unspecified hyperlipidemia type E78.5 ; Tobacco abuse Z72.0 ; Tobacco abuse counseling Z71.6 ; History of CVA with residual deficit I69.30 ; Gastroesophageal reflux disease, esophagitis presence not specified K21.9 and 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 [place] [id number] [place] [address] 81580- 6083 Mar, [place] [address] 84439- 5695 Mar, DM (diabetes mellitus) with complications E11.8 ; Abnormal lung sounds R09.89 ; Bronchitis J40 and Hyperlipidemia, unspecified hyperlipidemia type E78.5 [facility] [place] [address] 96515 -0596 Mar, URI, acute J06.9 [place] [address] 34142- 2090 Mar, [place] [address] 96199- 7440 Mar, DM (diabetes mellitus) with complications E11.8 [place] [address] 69662- 0655 Mar, Other chronic pain G89.29 and Generalized anxiety disorder F41.1 [place] [address] 89133- 3884 Feb, [place] [address] 71422- 0102 Feb, Mass of left lung R91.8 and Cervicalgia M54.2 [place] [address] 28566- 4481 Feb, [place] [address] 57649- 0546 Feb, [facility] [place] [address] 15972 -8748 Feb, Cough R05 and Bronchitis J40 [facility] [place] [id number] [place] [address] 65903 -9961 07 Feb, 2017 Acute nasopharyngitis J00 and Bronchitis J40 [place] [id number] [place] [address] 64304- 4646 06 Feb, 2017 Other chronic pain G89.29 and Generalized anxiety disorder F41.1 [facility] [id number] [place] [address] 71324- 3105 Jan, Encounter for immunization Z23 [facility] [id number] [place] [address] 07416 -3791 Jan, [facility] [address] 36166 -0237 Jan, [place] [address] 56658- 9699 16 Jan, 2017 Canker sores oral K12.0 [place] [address] 23193- 2361 14 Jan, 2017 [place] [address] 44853- 9095 07 Jan, 2017 Other chronic pain G89.29 and Generalized anxiety disorder F41.1 [place] [id number] [place] [address] 75666- 2409 06 Jan, 2017 Cough R05 and Bronchitis J40 [facility] [place] [id number] [place] [address] 54457 -1072 Jan, Bronchitis J40 [place] [id number] [place] [address] 31302- 6053 Dec, Vitamin D deficiency E55.9 [place] [id number] [place] [address] 84896- 6775 Dec, DM (diabetes mellitus) with complications E11.8 [place] [address] 80559- 9255 Dec, DM (diabetes mellitus) with complications E11.8 and Vitamin D deficiency E55.9 [place] [id number] [place] [address] 35057- 5737 10 Oct, 2017 DM (diabetes mellitus) with complications E11.8 ; Essential hypertension I10 ; Hyperlipidemia, unspecified hyperlipidemia type E78.5 ; Vitamin D deficiency E55.9 ; Gastroesophageal reflux disease, esophagitis presence not specified K21.9 ; 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 ; Other chronic pain G89.29 ; Encounter for immunization Z23 and Generalized anxiety disorder F41.1 [place] [address] 07211- 9393 12 Nov, 2016 History of CVA with residual deficit I69.30 [place] [address] 86304- 1037 11 Nov, 2016 DM (diabetes mellitus) with complications E11.[address] 68725- 3596 06 Nov, 2016 Left otitis media with effusion H65.92 ; Bronchitis J40 and Canker sores oral K12.[address] 30357- 9321 14 Oct, 2016 [place] [address] 19834- 1982 04 Oct, 2016 DM (diabetes mellitus) with complications E11.8 [place] [address] 46771- 0819 02 Oct, 2016 [place] [address] 40818- 7079 17 Sep, 2016 DM (diabetes mellitus) with complications E11.8 [place] [address] 37502- 0763 Sep, DM (diabetes mellitus) with complications E11.8 ; Essential hypertension I10 ; Gastroesophageal reflux disease, esophagitis presence not specified K21.9 ; Hyperlipidemia, unspecified hyperlipidemia type E78.5 ; Tobacco abuse Z72.0 ; Vitamin D deficiency E55.9 ; History of CVA with residual deficit I69.30 and Seasonal allergic rhinitis due to pollen J30.[address] 54275- 5897 Sep, [facility] [address], [place] [address]- 2318 Aug, [facility] [id number] [place] [address] 64457 -2779 Aug, Dysuria R30.0 ; Acute cystitis with hematuria N30.01 and Middle ear effusion, right H65.91 [facility] [id number] [place] [address] 98690- 4477 Aug, Other complicated headache syndrome G44.59 [facility] [id number] [place] [address] 39247- 7962 Aug, DM (diabetes mellitus) with complications E11.8 [facility] [id number] [place] [address] 10829- 6468 Aug, Dysuria R30.0 [facility] [id number] [place] [address] 70801- 5247 Aug, Dysuria R30.0 [facility] [id number] [place] [address] 85483- 9746 Aug, [facility] [id number] [place] [address] 65230- 0377 July, [facility] [address] [place] [address] 78579- 4457 July, [facility] [id number] [place] [address] 38905- 8559 July, DM (diabetes mellitus) with complications E11.8 [facility] [address] [place] [address] 96474- 4819 July, Other complicated headache syndrome G44.59 [facility] [address] [place] [address] 54640- 7920 July, [facility] [address], [place] [address] -6638 July, Dysuria R30.0 and Acute cystitis with hematuria N30.01 [facility] [id number] [place] [address] 07202- 0813 July, [place] [address] 28734- 0679 July, Other complicated headache syndrome G44.59 [facility] [address] 58968 -6646 Jun, Exposure to strep throat Z20.818 and Acute upper respiratory infection, unspecified J06.9 [place] [id number] [place] [address] 99510- 7029 Jun, [place] [address] 18659- 9476 Jun, DM (diabetes mellitus) with complications E11.8 and Gastroesophageal reflux disease, esophagitis presence not specified K21.9 [place] [address] 59550- 1801 Jun, [place] [id number] [place] [address] 07607- 1573 Jun, Dizziness R42 [facility] [place] [id number] [place] [address] 83593 -5613 Jun, [place] [id number] [place] [address] 74061- 0396 Jun, [facility] [id number] [place] [address] 49288 -3352 May, Seasonal allergic rhinitis, unspecified allergic rhinitis trigger J30.2 [place] [id number] [place] [address] 29243- 9875 May, [place] [id number] [place] [address] 77591- 1551 May, DM (diabetes mellitus) with complications E11.8 [...] Seasonal allergic rhinitis due to pollen J30.1 [facility] [address] [place] [address] 68910- 4016 16 May, 2016 Gastroesophageal reflux disease, esophagitis presence not specified K21.9 [facility] [id number] [place] [address] 90821- 0887 May, [facility] [id number] [place] [address] 60328- 8483 Apr, [facility] [id number] [place] [address] 27383- 6678 Apr, [facility] [id number] [place] [address] 63724- 3074 Mar, [facility] [id number] [place] [address] 27423- 3667 Mar, [facility] [id number] [place] [address] 70455- 6723 Mar, [facility] [id number] [place] [address] 87118- 6333 Mar, [facility] [id number] [place] [address] 60766- 3312 Feb, [facility] [id number] [address]- 2486 Feb, [facility] [id number] [place] [address] 18759259- 4971 Feb, [facility] [address] [place] [address] 69597- 0849 Feb, Major depressive disorder, recurrent episode, moderate F33.1 ; Generalized anxiety disorder F41.1 ; Essential hypertension I10 ; DM ( diabetes mellitus) with complications E11.8 ; Hyperlipidemia, unspecified hyperlipidemia type E78.5 ; 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 [address] 99278 -3020 Jan, Acute bronchitis, unspecified organism J20.9 [place] [address] 37391- 4065 Jan, [place] [address] 88899- 2136 Jan, History of CVA with residual deficit I69.30 [place] [address] 67423- 8871 Jan, [place] [address] [id number] [place] [address] 91234- 0299 Jan, Acute bronchitis, unspecified organism J20.9 [place] [address] [id number] [place] [address] 33430- 4982 Jan, [place] [address] [id number] [place] [address] 43438- 1975 Dec, History of CVA with residual deficit I69.30 [place] [address] 91775- 9960 Dec, [place] [address] 32522- 8696 Dec, Other chronic pain G89.29 ; DM (diabetes mellitus) with complications E11.8 and History of CVA with residual deficit I69.30 [place] [id number] [place] [address] 69210- 3339 Nov, Major depressive disorder, recurrent episode, moderate F33.1 ; Irregular heart rhythm I49.9 ; Essential hypertension I10 ; History of CVA with residual deficit I69.30 ; DM (diabetes mellitus) with complications E11.8 ; Gastroesophageal reflux disease, esophagitis presence not specified K21.9 ; Hyperlipidemia, unspecified hyperlipidemia type E78.5 ; 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 ; Other chronic pain G89.29 and Generalized anxiety disorder F41.[address] 34919- 5394 Oct, Generalized anxiety disorder F41.1 ; Major depressive disorder, recurrent episode, moderate F33.1 ; Essential hypertension I10 ; History of CVA with residual deficit I69.30 ; DM (diabetes mellitus) with complications E11.8 ; Gastroesophageal reflux disease, esophagitis presence not specified K21.9 ; Hyperlipidemia, unspecified hyperlipidemia type E78.5 ; Other chronic pain G89.29 and Bacterial conjunctivitis of left eye H10.9 [place] [address] [place] [id number] [place] [address] 07414- 6226 Sep, Chronic pain syndrome G89.4 and DM (diabetes mellitus) with complications E11.8 [place] [address] [id number] [place] [address] 40764- 0406 Sep, Irregular heart rhythm I49.9 ; Routine health maintenance Z00.00 ; Essential hypertension I10 ; History of CVA with residual deficit I69.30 ; Gastroesophageal reflux disease, esophagitis presence not specified K21.9 ; DM (diabetes mellitus) with complications E11.8 ; Hyperlipidemia, unspecified hyperlipidemia type E78.5 and Other complicated headache syndrome G44.59 [place] [address] [id number] [place] [address] 99126- 6171 Jun, [place] [address] [place] [id number] [place] [address] 29021- 6467 Jun, [place] [address] [facility] [id number] [address] 9889 Aug, [facility] [address] [facility] [id number] [address]- 2589 Jun, IMMUNIZATIONS No Known Immunizations SOCIAL HISTORY [...] Has been hospitalized at then transfered to [facility]. 2014 Hospitalization History Child Hospitalization History abd pain and shakiness - [facility] ED visit [facility] Hospitalization History [facility] ED for URI 04/16/17 Hospitalization History via [facility] er 08/16/17
--- OUTSIDE RECORDS SUMMARY | 2018-01-23 16:54 | XMS REPORT ---
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 Active 892254084 Problem History of CVA with residual deficit I69.30 Active 222946859 Problem Chronic pain syndrome G89.4 Active 353679861 Problem Type 2 diabetes mellitus with hyperglycemia E11.65 Active 92378870 Problem Elevated liver enzymes R74.8 Active 420767106 Problem Generalized anxiety disorder F41.1 Active 17963133 Problem Vitamin D deficiency E55.9 Active 67920982 Problem Major depressive disorder, recurrent episode, moderate F33.1 Active 240247970 Problem Hyperlipidemia, unspecified hyperlipidemia type E78.5 Active 18659031 Problem Gastroesophageal reflux disease, esophagitis presence not specified K21.9 Active 387829906 Problem 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 Active 051366663 Problem Essential hypertension I10 Active 21857915 Problem 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 Active 24711349 Problem Other chronic pain G89.29 Active 33613741 ALLERGIES No Information ENCOUNTERS Encounter Location Date Diagnosis [facility] [address] [facility] [id number] [address] Nov, [facility] [id number] [address] Nov, [facility] [address], [place] [address] 13 Nov, 2017 Acute cystitis with hematuria N30.01 ; Dysuria R30.0 ; Flank pain R10.9 and Violation of controlled substance agreement Z91.14 [facility] [id number] [place] [address] 50857- 2325 16 Oct, 2017 [facility] [address] 19298 [address]6661 Oct, [facility] [id number] [place] [address] 16491 -8519 14 Oct, 2017 Dysuria R30.0 and Acute cystitis with hematuria N30.01 [place] [id number] [place] [address] 13909- 4890 Oct, [place] [id number] [place] [address] 51039- 5727 Oct, [place] [id number] [place] [address] 70387- 5790 Oct, Controlled substance agreement broken Z91.14 ; Violation of controlled substance agreement Z91.14 ; Other chronic pain G89.29 and Generalized anxiety disorder F41.1 [place] [id number] [place] [address] 30753- 4935 Oct, [place] [address] [id number] [place] [address] 44324- 2813 Oct, [place] [id number] [place] [address] 89123- 9017 Sep, Abscess L02.91 [place] [address] 23091- 2166 Sep, [place] [id number] [place] [address] 95498- 6866 Sep, DM (diabetes mellitus) with complications E11.8 ; Generalized anxiety disorder F41.1 and Chronic pain syndrome G89.4 [place] [id number] [place] [address] 29732- 1639 Sep, Generalized anxiety disorder F41.1 ; Chronic pain syndrome G89.4 ; Abnormal drug screen R89.2 and Other chest pain R07.89 [facility] [id number] [place] [address] 43684- 9846 Aug, Dysuria R30.0 [facility] [address] 28170- 7589 Aug, Generalized anxiety disorder F41.1 ; Chronic pain syndrome G89.4 and Dysuria R30.0 [place] [address] 30102- 1503 Aug, Acute cystitis with hematuria N30.01 and Candidal dermatitis B37.2 [place] [address] 32004- 0842 Aug, Dysuria R30.0 [facility] [address] 75697- 7558 Aug, [facility] [address] 98464 -7613 Aug, Dysuria R30.0 [facility] [id number] [place] [address] 18080- 1562 Aug, [facility] [address] 13356- 5754 July, Cervicalgia M54.2 ; Acute non intractable tension-type headache G44.209 ; Type 2 diabetes mellitus with hyperglycemia E11.65 and 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 [place] [address] 66544- 4785 July, Generalized anxiety disorder F41.1 and Chronic pain syndrome G89.4 [facility] [id number] [place] [address] 16356- 8974 July, Abscess L02.91 [place] [id number] [place] [address] 90506- 3327 July, [place] [id number] [place] [address] 65918- 1136 July, [place] [id number] [place] [address] 07946- 1192 July, Type 2 diabetes mellitus with hyperglycemia [...] pain syndrome G89.4 and Vaginal candidiasis B37.3 [place] [id number] [place] [address] 57230- 4505 Jun, Generalized anxiety disorder F41.1 and Other chronic pain G89.29 [place] [id number] [place] [address] 00695- 5979 Jun, [place] [id number] [place] [address] 91969- 2744 Jun, [place] [id number] [place] [address] 62717- 6479 Jun, Abnormal levels of other serum enzymes R74.8 [place] [id number] [place] [address] 57208- 4431 Jun, Abnormal levels of other serum enzymes R74.8 [place] [id number] [place] [address] 65908- 1557 Jun, Elevated liver enzymes R74.8 [place] [id number] [place] [address] 57564- 0224 Jun, Elevated liver enzymes R74.8 [facility] [id number] [place] [address] 03642- 4524 30 May, 2017 Right upper quadrant pain R10.11 ; Cervicalgia M54.2 and High risk medication use Z79.899 [facility] [id number] [place] [address] 13505- 2709 May, Generalized anxiety disorder F41.1 and Other chronic pain G89.29 [facility] [id number] [place] [address] 72098- 5139 May, Canker sores oral K12.0 [place] [id number] [place] [address] 29134- 6250 May, Generalized anxiety disorder F41.1 and Other chronic pain G89.29 [facility] [id number] [place] [address] 62918- 1899 May, [facility] [id number] [place] [address] 83254- 0306 Apr, [facility] [id number] [place] [address] 30252 -6418 Apr, Acute cystitis with hematuria N30.01 and Dysuria R30.0 [facility] [id number] [place] [address] 16047- 0076 20 Apr, 2017 [facility] [id number] [place] [address] 42387- 0019 Apr, [facility] [id number] [place] [address] 71903- 6211 08 Apr, 2017 DM (diabetes mellitus) with complications E11.8 [place] [id number] [place] [address] 95004- 6725 06 Apr, 2017 DM (diabetes mellitus) with complications E11.8 [facility] [id number] [place] [address] 95330- 3106 03 Apr, 2017 [facility] [id number] [place] [address] 17127- 3062 02 Apr, 2017 [place] [address] 56457- 1043 Apr, Other chronic pain G89.29 ; Generalized anxiety disorder F41.1 ; Cervicalgia M54.2 and Controlled substance agreement signed Z79.899 [facility] [place] [address] 58662 -2629 Mar, Abdominal pain R10.9 and Viral gastroenteritis A08.4 [place] [address] 66096- 2966 Mar, [place] [address] 34096- 7514 Mar, [place] [address] 52906- 0184 Mar, DM (diabetes mellitus) with complications E11.8 ; Type 2 diabetes mellitus with hyperglycemia E11.65 ; assisted current use of insulin Z79.4 ; Essential hypertension I10 ; Bronchitis J40 ; Major depressive disorder , recurrent episode, moderate F33.1 ; Hyperlipidemia, unspecified hyperlipidemia type E78.5 ; Tobacco abuse Z72.0 ; Tobacco abuse counseling Z71.6 ; History of CVA with residual deficit I69.30 ; Gastroesophageal reflux disease, esophagitis presence not specified K21.9 and 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 [place] [id number] [place] [address] 28229- 5832 Mar, [place] [id number] [place] [address] 00374- 4492 Mar, DM (diabetes mellitus) with complications E11.8 ; Abnormal lung sounds R09.89 ; Bronchitis J40 and Hyperlipidemia, unspecified hyperlipidemia type E78.5 [facility] [id number] [place] [address] 31026 -4367 Mar, URI, acute J06.9 [place] [address] [place] [address]- 2837 Mar, [place] [address] 02514- 9814 Mar, DM (diabetes mellitus) with complications E11.8 [place] [address] 90358- 4812 Mar, Other chronic pain G89.29 and Generalized anxiety disorder F41.1 [place] [address] 76329- 1002 Feb, [place] [address] 70930- 7979 Feb, Mass of left lung R91.8 and Cervicalgia M54.2 [place] [address] 47118- 8343 Feb, [place] [address] 88677- 0727 Feb, [facility] [address] [place] [address] 12455 -8243 Feb, Cough R05 and Bronchitis J40 [facility] [address] [place] [address] 26514 -4584 Feb, Acute nasopharyngitis J00 and Bronchitis J40 [address] 32536- 6537 Feb, Other chronic pain G89.29 and Generalized anxiety disorder F41.1 [place] [address] 20790- 1286 Jan, Encounter for immunization Z23 [facility] [address] [place] [address] 06700 -7251 Jan, [facility] [address] 37198 -0091 Jan, [place] [address] 10845- 0628 16 Jan, 2017 Canker sores oral K12.[address] 85490- 8767 14 Jan, 2017 [place] [address] 56012- 3229 07 Jan, 2017 Other chronic pain G89.29 and Generalized anxiety disorder F41.[address] 01897- 4495 06 Jan, 2017 Cough R05 and Bronchitis J40 [facility] [address] 63101 -4037 Jan, Bronchitis J40 [place] [address] 49047- 5579 Dec, Vitamin D deficiency E55.[address] 71613- 6704 Dec, DM (diabetes mellitus) with complications E11.[address] 91088- 9597 Dec, DM (diabetes mellitus) with complications E11.8 and Vitamin D deficiency E55.[address] 51370- 3728 Dec, DM (diabetes mellitus) with complications E11.8 ; Essential hypertension I10 ; Hyperlipidemia, unspecified hyperlipidemia type E78.5 ; Vitamin D deficiency E55.9 ; Gastroesophageal reflux disease, esophagitis presence not specified K21.9 ; 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 ; Other chronic pain G89.29 ; Encounter for immunization Z23 and Generalized anxiety disorder F41.[address] 86997- 6118 12 Nov, 2016 History of CVA with residual deficit I69.[address] 65723- 0938 11 Nov, 2016 DM (diabetes mellitus) with complications E11.8 [place] [id number] [place] [address] 18564- 1975 06 Nov, 2016 Left otitis media with effusion H65.92 ; Bronchitis J40 and Canker sores oral K12.0 [place] [id number] [place] [address] 64404- 7199 Oct, [place] [address] 64224- 8441 Oct, DM (diabetes mellitus) with complications E11.8 [place] [address] 82060- 5100 Oct, [place] [address] 25470- 1522 Sep, DM (diabetes mellitus) with complications E11.8 [place] [address] 45016- 4834 Sep, DM (diabetes mellitus) with complications E11.8 ; Essential hypertension I10 ; Gastroesophageal reflux disease, esophagitis presence not specified K21.9 ; Hyperlipidemia, unspecified hyperlipidemia type E78.5 ; Tobacco abuse Z72.0 ; Vitamin D deficiency E55.9 ; History of CVA with residual deficit I69.30 and Seasonal allergic rhinitis due to pollen J30.1 [place] [id number] [place] [address] 76940- 5798 Sep, [facility] [id number] [place] [address] 07548- 8009 Aug, [facility] [id number] [place] [address] 54300 -7285 Aug, Dysuria R30.0 ; Acute cystitis with hematuria N30.01 and Middle ear effusion, right H65.91 [place] [id number] [place] [address] 16854- 0495 Aug, Other complicated headache syndrome G44.59 [place] [address] 89768- 9921 Aug, DM (diabetes mellitus) with complications E11.8 [facility] [id number] [place] [address] 17207- 7464 14 Aug, 2016 Dysuria R30.0 [facility] [id number] [place] [address] 53960- 9921 Aug, Dysuria R30.0 [facility] [id number] [place] [address] 07048- 8239 Aug, [facility] [id number] [place] [address] 15065- 3438 July, [facility] [id number] [place] [address] 64867- 3339 July, [facility] [id number] [place] [address] 19633- 4192 July, DM (diabetes mellitus) with complications E11.8 [facility] [id number] [place] [address] 48639- 6670 July, Other complicated headache syndrome G44.59 [facility] [id number] [place] [address] 00577- 1789 July, [facility] [id number] [place] [address] 31367 -4031 July, Dysuria R30.0 and Acute cystitis with hematuria N30.01 [facility] [id number] [place] [address] 27278- 7589 July, [facility] [address] [place] [address] 36220- 5741 July, Other complicated headache syndrome G44.59 [facility] [address] [place] [address] 28199 -0074 Jun, Exposure to strep throat Z20.818 and Acute upper respiratory infection, unspecified J06.9 [facility] [id number] [place] [address] 96075- 4721 Jun, [place] [id number] [place] [address] 99592- 8299 Jun, DM (diabetes mellitus) with complications E11.8 and Gastroesophageal reflux disease, esophagitis presence not specified K21.9 [place] [id number] [place] [address] 15629- 5454 Jun, Dizziness R42 [place] [address] 86848- 0242 Jun, [facility] [address] 19521 -0958 Jun, [place] [id number] [place] [address] 03449- 2349 Jun, [facility] [id number] [place] [address] 01722 -6383 May, Seasonal allergic rhinitis, unspecified allergic rhinitis trigger J30.2 [place] [id number] [place] [address] 67312- 5762 May, [place] [id number] [place] [address] 66641- 7867 May, DM (diabetes mellitus) with complications E11.8 [...] Seasonal allergic rhinitis due to pollen J30.1 [place] [address] [id number] [place] [address] 58833- 1796 May, Gastroesophageal reflux disease, esophagitis presence not specified K21.9 [place] [id number] [place] [address] 98588- 7437 May, [place] [address] [address] [address]- 0806 Apr, [facility] [address], [place] [address]- 5381 Apr, [facility] [address], [place] [address]- 6104 Mar, [facility] [id number] [place] [address] 98670- 9004 Mar, [facility] [id number] [address]- 5368 Mar, [facility] [id number] [place] [address] 08454- 8275 Mar, [facility] [address], [place] [address]- 7525 Feb, [facility] [id number] [place] [address] 22766- 1299 Feb, [facility] [address], [place] [address]- 8628 Feb, [facility] [id number] [address]- 0963 Feb, Major depressive disorder, recurrent episode, moderate F33.1 ; Generalized anxiety disorder F41.1 ; Essential hypertension I10 ; DM ( diabetes mellitus) with complications E11.8 ; Hyperlipidemia, unspecified hyperlipidemia type E78.5 ; 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 and Gastroesophageal reflux disease, esophagitis presence not specified K21.9 [facility] [id number] [address] -6387 Feb, Other viral agents as the cause of diseases classified elsewhere B97.89 and Acute upper respiratory infection, unspecified J06.9 [facility] [id number] [address]- 1588 Jan, [facility] [address], [place] [address]- 8187 Jan, [facility] [address], [place] [address] -9186 Jan, Acute bronchitis, unspecified organism J20.9 [facility] [id number] [place] [address] 90347- 1690 Jan, [facility] [id number] [place] [address] 50759- 8331 Jan, History of CVA with residual deficit I69.30 [facility] [id number] [place] [address] 73542- 3198 Jan, [facility] [address] 46007- 2620 Jan, Acute bronchitis, unspecified organism J20.9 [facility] [id number] [place] [address] 58949- 5977 Jan, [facility] [id number] [place] [address] 47791- 3321 Dec, History of CVA with residual deficit I69.30 [facility] [address] [id number] [place] [address] 15036- 6774 Dec, [facility] [address] [id number] [place] [address] 20510- 9617 Dec, Other chronic pain G89.29 ; DM (diabetes mellitus) with complications E11.8 and History of CVA with residual deficit I69.30 [facility] [address] [id number] [place] [address] 66927- 2537 Nov, Major depressive disorder, recurrent episode, moderate F33.1 ; Irregular heart rhythm I49.9 ; Essential hypertension I10 ; History of CVA with residual deficit I69.30 ; DM (diabetes mellitus) with complications E11.8 ; Gastroesophageal reflux disease, esophagitis presence not specified K21.9 ; Hyperlipidemia, unspecified hyperlipidemia type E78.5 ; 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 ; Other chronic pain G89.29 and Generalized anxiety disorder F41.1 [facility] [place] [id number] [place] [address] 75265- 7719 Oct, Generalized anxiety disorder F41.1 ; Major depressive disorder, recurrent episode, moderate F33.1 ; Essential hypertension I10 ; History of CVA with residual deficit I69.30 ; DM (diabetes mellitus) with complications E11.8 ; Gastroesophageal reflux disease, esophagitis presence not specified K21.9 ; Hyperlipidemia, unspecified hyperlipidemia type E78.5 ; Other chronic pain G89.29 and Bacterial conjunctivitis of left eye H10.9 [place] [id number] [place] [address] 58377- 2048 Sep, Chronic pain syndrome G89.4 and DM (diabetes mellitus) with complications E11.[address] 85610- 5125 Sep, Irregular heart rhythm I49.9 ; Routine health maintenance Z00.00 ; Essential hypertension I10 ; History of CVA with residual deficit I69.30 ; Gastroesophageal reflux disease, esophagitis presence not specified K21.9 ; DM (diabetes mellitus) with complications E11.8 ; Hyperlipidemia, unspecified hyperlipidemia type E78.5 and Other complicated headache syndrome G44.59 [place] [id number] [place] [address] 08678- 7910 Jun, [place] [id number] [place] [address] 06885- 3462 Jun, [place] [id number] [place] [address] 29174- 1830 Aug, [place] [id number] [place] [address] 14200- 5567 Jun, IMMUNIZATIONS No Known Immunizations SOCIAL HISTORY Never Assessed REASON FOR VISIT Medication reaction PLAN OF CARE VITAL SIGNS MEDICATIONS Unknown Medications RESULTS No Results PROCEDURES No Known procedures INSTRUCTIONS MEDICATIONS ADMINISTERED No Known Medications MEDICAL (GENERAL) HISTORY Type Description Date Medical History diabetes mellitus Medical History hyperlipidemia Medical History hypertension Medical History Anxiety disorder Medical History Blood Clotting Disorder- Dr Galvan at [facility] Medical History Possible Anemia (currently under work up) - Dr Galvan [facility] Medical History irregular heart beat-sees dr. sonya Medical History history of pancreatitis Medical History gerd Medical History History of CVA with residual deficit Medical History Other complicated headache syndrome Medical History Stokes syndrome Surgical History tubal ligation Surgical History section Surgical History cholecystectomy Surgical History Toe Nail Removal x2 Hospitalization History Brain Stem Strokes x5. Has been hospitalized at then transfered to [place]. 2015 Hospitalization History Child Hospitalization History abd pain and shakiness - [facility] ED visit [facility] Hospitalization History [facility] ED for URI 04/16/17 Hospitalization History via [facility] 08/16/17
--- OUTSIDE RECORDS SUMMARY | 2018-01-23 16:55 | XMS REPORT ---
Author Author SOTERO HUIZAR Organization [facility] Address [address] [place] [address] Care Team Providers Care Site Auditor Name Role Phone HUIZARSOTERO Cox Unavailable PROBLEMS Type Condition ICD9-CM Code WZE35-VL Code Onset Dates Condition Status SNOMED Code Problem Tobacco abuse Z72.0 Active 088333150 Problem Seasonal allergic rhinitis due to pollen J30.1 Active 80986308 Problem Tobacco abuse counseling Z71.6 Active 964114016 Problem Abnormal drug screen R89.2 Active 096622404 Problem Acute non intractable tension-type headache G44.209 Active 282563532 Problem senior care current use of insulin Z79.4 Active 680823029 Problem History of CVA with residual deficit I69.30 Active 065239087 Problem Chronic pain syndrome G89.4 Active 628818396 Problem Type 2 diabetes mellitus with hyperglycemia E11.65 Active 98183249 Problem Elevated liver enzymes R74.8 Active 747303632 Problem Generalized anxiety disorder F41.1 Active 53900545 Problem Vitamin D deficiency E55.9 Active 87374648 Problem Major depressive disorder, recurrent episode, moderate F33.1 Active 578749175 Problem Hyperlipidemia, unspecified hyperlipidemia type E78.5 Active 95889035 Problem Gastroesophageal reflux disease, esophagitis presence not specified K21.9 Active 323029304 Problem 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 Active 242691427 Problem Essential hypertension I10 Active 16822743 Problem DM (diabetes mellitus) with complications E11.8 Active 73138600 Problem Other chronic pain G89.29 Active 44228720 ALLERGIES Substance Reaction Event Type Date Status Penicillin V Potassium Unknown Drug Allergy Oct, Active Erythromycin Base Unknown Drug Allergy Oct, Active Bactrim DS rash and trouble breathing Drug Allergy Oct, Active Codeine Unknown Drug Allergy Oct, Active ENCOUNTERS Encounter Location Date Diagnosis [facility] [address] [facility] [id number] [address] Nov, Acute cystitis with hematuria N30.01 ; Dysuria R30.0 ; Flank pain R10.9 and Violation of controlled substance agreement Z91.14 [facility] [id number] [place] [address] 03336- 5216 16 Oct, 2017 [facility] [id number] [place] [address]88 -9122 Oct, [facility] [address] [address] Oct, Dysuria R30.0 and Acute cystitis with hematuria N30.01 [facility] [address] 44244- 2893 Oct, [facility] [id number] [place] [address] 92319- 2688 Oct, [facility] [address] [address] Oct, Controlled substance agreement broken Z91.14 ; Violation of controlled substance agreement Z91.14 ; Other chronic pain G89.29 and Generalized anxiety disorder F41.1 [place] [id number] [place] [address] 49740- 3271 Oct, [facility] [id number] [place] [address] 15356- 4499 Oct, [facility] [id number] [place] [address] 23662- 5843 Sep, Abscess L02.91 [facility] [id number] [place] [address] 37629- 8048 Sep, [place] [address] 30125- 34[address] Sep, DM (diabetes mellitus) with complications E11.8 ; Generalized anxiety disorder F41.1 and Chronic pain syndrome G89.4 [place] [address] 53313- 8433 Sep, Generalized anxiety disorder F41.1 ; Chronic pain syndrome G89.4 ; Abnormal drug screen R89.2 and Other chest pain R07.89 [facility] [id number] [place] [address] 06660- 1329 Aug, Dysuria R30.0 [facility] [address] 98951- 8900 Aug, Generalized anxiety disorder F41.1 ; Chronic pain syndrome G89.4 and Dysuria R30.0 [facility] [address] 27176- 1668 Aug, Acute cystitis with hematuria N30.01 and Candidal dermatitis B37.2 [facility] [id number] [place] [address] 19712- 3336 Aug, Dysuria R30.0 [facility] [address] 75791- 4290 Aug, [facility] [id number] [place] [address] 93851 -7838 Aug, Dysuria R30.0 [facility] [address] 49257- 6243 Aug, [facility] [id number] [place] [address] 93205- 8419 July, Cervicalgia M54.2 ; Acute non intractable tension-type headache G44.209 ; Type 2 diabetes mellitus with hyperglycemia E11.65 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 [facility] [id number] [place] [address] 33038- 5401 July, Generalized anxiety disorder F41.1 and Chronic pain syndrome G89.4 [facility] [id number] [place] [address] 88913- 3405 July, Abscess L02.91 [facility] [address] 92979- 5121 July, [place] [id number] [place] [address] 77169- 6507 July, [place] [id number] [place] [address] 60630- 3159 July, Type 2 diabetes mellitus with hyperglycemia E11.65 ; 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 ; Elevated [...] pain syndrome G89.4 and Vaginal candidiasis B37.3 [place] [id number] [place] [address] 01766- 1785 Jun, Generalized anxiety disorder F41.1 and Other chronic pain G89.29 [place] [id number] [place] [address] 35025- 2023 Jun, [place] [id number] [place] [address] 80272- 4353 Jun, [place] [id number] [place] [address] 42707- 5926 Jun, Abnormal levels of other serum enzymes R74.8 [place] [id number] [place] [address] 28542- 8482 Jun, Abnormal levels of other serum enzymes R74.8 [place] [id number] [place] [address] 38342- 2882 Jun, Elevated liver enzymes R74.8 [place] [id number] [place] [address] 87405- 3234 Jun, Elevated liver enzymes R74.8 [place] [id number] [place] [address] 33216- 3308 May, Right upper quadrant pain R10.11 ; Cervicalgia M54.2 and High risk medication use Z79.899 [facility] [id number] [place] [address] 75027- 5628 May, Generalized anxiety disorder F41.1 and Other chronic pain G89.29 [facility] [address] 27271- 0736 May, Canker sores oral K12.0 [place] [address] 57825- 5743 May, Generalized anxiety disorder F41.1 and Other chronic pain G89.29 [place] [address] 19660- 6600 May, [facility] [address] 07645- 6005 Apr, [facility] [address] 49549 -8349 Apr, Acute cystitis with hematuria N30.01 and Dysuria R30.0 [place] [address] 50996- 9776 Apr, [facility] [id number] [place] [address] 87741- 4696 Apr, [facility] [id number] [place] [address] 22961- 4683 Apr, DM (diabetes mellitus) with complications E11.8 [facility] [id number] [place] [address] 19368- 0512 Apr, DM (diabetes mellitus) with complications E11.8 [facility] [id number] [place] [address] 51019- 7943 Apr, [facility] [address] 28181- 8319 Apr, [place] [id number] [place] [address] 68511- 6148 Apr, Other chronic pain G89.29 ; Generalized anxiety disorder F41.1 ; Cervicalgia M54.2 and Controlled substance agreement signed Z79.899 [facility] [place] [id number] [place] [address] 53956 -5724 Mar, Abdominal pain R10.9 and Viral gastroenteritis A08.[address] 52131- 7633 Mar, [address] 74464- 1340 Mar, [place] [id number] [place] [address] 79367- 6884 Mar, DM (diabetes mellitus) with complications E11.8 ; Type 2 diabetes mellitus with hyperglycemia E11.65 ; 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 ; Essential hypertension I10 ; Bronchitis J40 ; Major depressive disorder , recurrent episode, moderate F33.1 ; Hyperlipidemia, unspecified hyperlipidemia type E78.5 ; Tobacco abuse Z72.0 ; Tobacco abuse counseling Z71.6 ; History of CVA with residual deficit I69.30 ; Gastroesophageal reflux disease, esophagitis presence not specified K21.9 and 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 [place] [id number] [place] [address] 63648- 5835 Mar, [address] 99511- 8659 Mar, DM (diabetes mellitus) with complications E11.8 ; Abnormal lung sounds R09.89 ; Bronchitis J40 and Hyperlipidemia, unspecified hyperlipidemia type E78.5 [facility] [address] 19230 -2774 Mar, URI, acute J06.[address] 70109- 7799 Mar, [facility] [address] 48244- 2353 Mar, DM (diabetes mellitus) with complications E11.8 [place] [address] 11830- 4570 Mar, Other chronic pain G89.29 and Generalized anxiety disorder F41.1 [place] [address] 83590- 3441 Feb, [place] [address] 16896- 7884 Feb, Mass of left lung R91.8 and Cervicalgia M54.2 [place] [address] 95600- 3659 Feb, [place] [address] 35947- 2522 Feb, [facility] [address] 91567 -1691 Feb, Cough R05 and Bronchitis J40 [facility] [address] 68997 -2076 07 Feb, 2017 Acute nasopharyngitis J00 and Bronchitis J40 [place] [address] 39919- 2545 06 Feb, 2017 Other chronic pain G89.29 and Generalized anxiety disorder F41.1 [place] [address] 55691- 5108 Jan, Encounter for immunization Z23 [facility] [address] [place] [address] 78560 -9557 Jan, [facility] [address] 24643 -4742 Jan, [place] [address] 89671- 2222 Jan, Canker sores oral K12.0 [place] [address] 25971- 5361 14 Jan, 2017 [place] [address] 86552- 5476 07 Jan, 2017 Other chronic pain G89.29 and Generalized anxiety disorder F41.1 [place] [address] 18646- 2327 06 Jan, 2017 Cough R05 and Bronchitis J40 [facility] [address] 48238 -2479 04 Jan, 2017 Bronchitis J40 [place] [address] 77136- 6502 Dec, Vitamin D deficiency E55.9 [place] [address] 11608- 1672 Dec, DM (diabetes mellitus) with complications E11.8 [place] [address] 40151- 1334 Dec, DM (diabetes mellitus) with complications E11.8 and Vitamin D deficiency E55.[address] 05821- 1603 Dec, DM (diabetes mellitus) with complications E11.8 ; Essential hypertension I10 ; Hyperlipidemia, unspecified hyperlipidemia type E78.5 ; Vitamin D deficiency E55.9 ; Gastroesophageal reflux disease, esophagitis presence not specified K21.9 ; 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 ; Other chronic pain G89.29 ; Encounter for immunization Z23 and Generalized anxiety disorder F41.1 [place] [address] 55077- 5874 12 Nov, 2016 History of CVA with residual deficit I69.[address] 90056- 2956 11 Nov, 2016 DM (diabetes mellitus) with complications E11.8 [place] [address] 88620- 8088 Nov, Left otitis media with effusion H65.92 ; Bronchitis J40 and Canker sores oral K12.0 [place] [address] 88332- 7385 Oct, [place] [id number] [place] [address] 72467- 8332 Oct, DM (diabetes mellitus) with complications E11.8 [place] [address] 26887- 1312 Oct, [place] [address] 36909- 5784 Sep, DM (diabetes mellitus) with complications E11.8 [place] [id number] [place] [address] 98870- 5065 Sep, DM (diabetes mellitus) with complications E11.8 ; Essential hypertension I10 ; Gastroesophageal reflux disease, esophagitis presence not specified K21.9 ; Hyperlipidemia, unspecified hyperlipidemia type E78.5 ; Tobacco abuse Z72.0 ; Vitamin D deficiency E55.9 ; History of CVA with residual deficit I69.30 and Seasonal allergic rhinitis due to pollen J30.1 [place] [id number] [place] [address] 18719- 6644 Sep, [place] [id number] [place] [address] 32639- 8395 Aug, [facility] [id number] [place] [address] 44681 -9799 Aug, Dysuria R30.0 ; Acute cystitis with hematuria N30.01 and Middle ear effusion, right H65.91 [place] [address] 20459- 3089 Aug, Other complicated headache syndrome G44.59 [place] [id number] [place] [address] 17091- 3747 Aug, DM (diabetes mellitus) with complications E11.8 [place] [address] [address]- 8581 Aug, Dysuria R30.0 [facility] [id number] [place] [address] 22407- 5428 Aug, Dysuria R30.0 [facility] [address] [place] [address] 32508- 6122 Aug, [facility] [id number] [place] [address] 94845- 8385 July, [facility] [id number] [place] [address] 18031- 9187 July, [facility] [id number] [place] [address] 23004- 4994 July, DM (diabetes mellitus) with complications E11.8 [facility] [id number] [place] [address] 01907- 1158 July, Other complicated headache syndrome G44.59 [facility] [id number] [place] [address] 14942- 9114 July, [facility] [address] [place] [address] 11010 -9507 July, Dysuria R30.0 and Acute cystitis with hematuria N30.01 [facility] [address] [address]- 4730 July, [facility] [id number] [place] [address] 10988- 4134 July, Other complicated headache syndrome G44.59 [facility] [address] [place] [address] 47633 -2636 Jun, Exposure to strep throat Z20.818 and Acute upper respiratory infection, unspecified J06.9 [facility] [address] [address]- 4598 Jun, [facility] [id number] [place] [address] 99926- 5757 Jun, DM (diabetes mellitus) with complications E11.8 and Gastroesophageal reflux disease, esophagitis presence not specified K21.9 [facility] [id number] [place] [address] 68966- 6456 Jun, [facility] [id number] [place] [address] 81037- 1189 Jun, Dizziness R42 [facility] [address] 23960 -9686 Jun, [place] [address] 66585- 3040 Jun, [facility] [id number] [place] [address] 05477 -7817 May, Seasonal allergic rhinitis, unspecified allergic rhinitis trigger J30.2 [place] [id number] [place] [address] 33890- 2988 May, [place] [id number] [place] [address] 88849- 6117 May, DM (diabetes mellitus) with complications E11.8 [...] Seasonal allergic rhinitis due to pollen J30.1 [place] [id number] [place] [address] 17921- 5017 May, Gastroesophageal reflux disease, esophagitis presence not specified K21.9 [place] [id number] [place] [address] 08320- 1432 May, [place] [id number] [place] [address] 68673- 6770 Apr, [facility] [address] [address]- 8795 Apr, [facility] [address] [address]- 4540 Mar, [facility] [address], [place] [address]- 3421 Mar, [facility] [id number] [place] [address] 33686- 0569 Mar, [facility] [id number] [place] [address] 59030- 5071 Mar, [facility] [id number] [place] [address] 36623- 8236 Feb, [facility] [id number] [place] [address] 79437- 4740 Feb, [facility] [address] [place] [address] 08305- 3992 Feb, [facility] [address] [place] [address] 05482- 1374 Feb, Major depressive disorder, recurrent episode, moderate F33.1 ; Generalized anxiety disorder F41.1 ; Essential hypertension I10 ; DM ( diabetes mellitus) with complications E11.8 ; Hyperlipidemia, unspecified hyperlipidemia type E78.5 ; 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 and Gastroesophageal reflux disease, esophagitis presence not specified K21.9 [facility] [address], [place] [address] Feb, Other viral agents as the cause of diseases classified elsewhere B97.89 and Acute upper respiratory infection, unspecified J06.9 [facility] [address] [address]- 7649 Jan, [facility] [address] [address]- 5818 Jan, [facility] [address] [place] [address] 93050 -1156 Jan, Acute bronchitis, unspecified organism J20.9 [place] [address] [place] [address] 50404- 1093 Jan, [place] [id number] [place] [address]13 Jan, History of CVA with residual deficit I69.30 [place] [id number] [place] [address] 29694- 4779 Jan, [place] [id number] [place] [address] 93209- 1258 Jan, Acute bronchitis, unspecified organism J20.9 [place] [id number] [place] [address] 26306- 4257 Jan, [place] [id number] [place] [address] 65500- 7560 Dec, History of CVA with residual deficit I69.30 [place] [id number] [place] [address] 34827- 1379 Dec, [place] [id number] [place] [address] 25026- 4367 Dec, Other chronic pain G89.29 ; DM (diabetes mellitus) with complications E11.8 and History of CVA with residual deficit I69.30 [place] [address] [place] [address] 34807- 7100 Nov, Major depressive disorder, recurrent episode, moderate F33.1 ; Irregular heart rhythm I49.9 ; Essential hypertension I10 ; History of CVA with residual deficit I69.30 ; DM (diabetes mellitus) with complications E11.8 ; Gastroesophageal reflux disease, esophagitis presence not specified K21.9 ; Hyperlipidemia, unspecified hyperlipidemia type E78.5 ; 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 ; Other chronic pain G89.29 and Generalized anxiety disorder F41.1 [place] [id number] [place] [address] 72513- 2742 Oct, Generalized anxiety disorder F41.1 ; Major depressive disorder, recurrent episode, moderate F33.1 ; Essential hypertension I10 ; History of CVA with residual deficit I69.30 ; DM (diabetes mellitus) with complications E11.8 ; Gastroesophageal reflux disease, esophagitis presence not specified K21.9 ; Hyperlipidemia, unspecified hyperlipidemia type E78.5 ; Other chronic pain G89.29 and Bacterial conjunctivitis of left eye H10.9 [place] [address] 16737- 9184 Sep, Chronic pain syndrome G89.4 and DM (diabetes mellitus) with complications E11.8 [place] [address] 56221- 4560 Sep, Irregular heart rhythm I49.9 ; Routine health maintenance Z00.00 ; Essential hypertension I10 ; History of CVA with residual deficit I69.30 ; Gastroesophageal reflux disease, esophagitis presence not specified K21.9 ; DM (diabetes mellitus) with complications E11.8 ; Hyperlipidemia, unspecified hyperlipidemia type E78.5 and Other complicated headache syndrome G44.59 [place] [id number] [place] [address] 48757- 9352 Jun, [place] [id number] [place] [address] 48182- 9035 Jun, [place] [id number] [place] [address] 15361- 6894 Aug, [place] [address] 75012- 1098 Jun, IMMUNIZATIONS No Known Immunizations SOCIAL HISTORY Never Assessed REASON FOR VISIT Pain management (chronic) -- tapan chawla, refill on medications PLAN OF CARE Activity Details Follow Up 3 Months, prn Reason:CHM/DM VITAL SIGNS Height 62 in 2017-10-27 Weight 199.6 lbs 2017-10-27 Temperature 98.0 degrees Fahrenheit 2017-10-27 Heart Rate 88 bpm 2017-10-27 Respiratory Rate 18 2017-10-27 BMI 36.50 kg/m2 2017-10-27 Blood pressure systolic 118 mmHg 2017-10-27 Blood pressure diastolic 78 mmHg 2017-10-27 MEDICATIONS Medication Instructions Dosage Frequency Start Date End Date Duration Status CorneliaAlbertdonaldo Chandni Borden 33G 33 TEST BLOOD SUGAR THREE TIMES A DAY E11.8 Active Atorvastatin Calcium 80 MG Orally Once a day 1 tablet 24h 90 days Active Hydrocodone-Acetaminophen 10-325 MG Orally 3 times a day 1 tablet as needed 8h Oct, Oct, 14 days Active MetFORMIN HCl ER 750 MG Orally twice a day 1 tablet with meals 12h 90 days Active ASA Oral Once a day 1 tab 24h Active Xanax 1 MG Orally 3 times a day 1 tablet 8h 14 days Active Famotidine 20 mg Orally Twice a day 1 tablet 12h 21 Apr, 2017 90 days Active Senna S 8.6-50 MG Orally twice a day 1 tablet 12h 10 Jul, 2018 90 days Active Plavix 75 MG Orally Once a day 1 tablet 24h 90 days Active Potassium Chloride ER 10 meq Orally Twice a day TAKE ONE TABLET BY MOUTH TWICE A DAY WITH FOOD 12h 90 Active Levemir Flexpen 100 UNIT/ML Subcutaneous 2 times a day 35 units 12h 12 months Active Test strips 8h Active Walker - as directed Jan, Active Eusebiouch Verio - TEST BLOOD SUGAR FOUR TIMES A DAY E11.8 30 Active Baclofen 20 mg Orally 2 times a day if needed 1 tablet with food or milk Feb, Oct, 30 day(s) Active Metoprolol Tartrate 25 MG Orally Twice a day 1 tablet with food 12h 90 days Active BD Pen Needle Mini U/F 31 gauge USE ONCE DAILY WITH INSULIN PENS 90 Active One Touch/One Touch II Starter 1 glucometer subcutaneously 3 times a day to take blood sugars daily Dispense as insurance allows 8h Sep, Active Humalog 100 UNIT/ML Subcutaneous 3 times a day 10 units with meals 8h July, 12 months Active Lancets - Active Diltiazem HCl ER 120 MG Orally Once a day 1 capsule on an empty stomach in the morning 24h 90 days Active Onglyza 5 mg Orally Once a day 1 tablet 24h 90 days Active Bath/Shower Seat 1 please provide one adult shower seat for patient use one time shower/bath seat for bathing Dec, Active Hydrochlorothiazide 25 MG Orally Once a day 1 tablet 24h 90 days Active [place] 31 gauge subcutaneously twice a day DX: E11.8 as directed Active Pantoprazole Sodium 20 mg Orally 2 times a day 1 tablets 12h 24 May, 2016 90 days Active RESULTS No Results PROCEDURES Procedure Date Ordered Result Body Site [facility] VISIT ESTABLISHED PATIENT Oct 27, 2017 INSTRUCTIONS MEDICATIONS ADMINISTERED No Known Medications [...] Has been hospitalized at then transfered to [place]. 2014 Hospitalization History Child Hospitalization History abd pain and shakiness - [facility] ED visit [facility] Hospitalization History [facility] ED for URI 04/16/17 Hospitalization History via [facility] [place] er 08/16/17
--- OUTSIDE RECORDS SUMMARY | 2018-01-23 16:55 | XMS REPORT ---
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 Active 507902907 Problem History of CVA with residual deficit I69.30 Active 028873888 Problem Chronic pain syndrome G89.4 Active 599954451 Problem Type 2 diabetes mellitus with hyperglycemia E11.65 Active 01624673 Problem Elevated liver enzymes R74.8 Active 293023198 Problem Generalized anxiety disorder F41.1 Active 20859480 Problem Vitamin D deficiency E55.9 Active 25509533 Problem Major depressive disorder, recurrent episode, moderate F33.1 Active 719196093 Problem Hyperlipidemia, unspecified hyperlipidemia type E78.5 Active 42025114 Problem Gastroesophageal reflux disease, esophagitis presence not specified K21.9 Active 779864146 Problem 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 Active 943212997 Problem Essential hypertension I10 Active 70545597 Problem DM (diabetes mellitus) with complications E11.8 Active 74821398 Problem Other chronic pain G89.29 Active 31195868 ALLERGIES No Information ENCOUNTERS Encounter Location Date Diagnosis [facility] [address] [facility] [id number] [address] Nov, [facility] [address] [facility] [id number], [place] [address] 13 Nov, 2017 Acute cystitis with hematuria N30.01 ; Dysuria R30.0 ; Flank pain R10.9 and Violation of controlled substance agreement Z91.14 [facility] [address] [place] [id number] [place] [address] 08207- 8263 Oct, [facility] [address] [place] [id number] [place] [address] 25805 [address]1588 Oct, [facility] [address] [place] [id number] [place] [address] 52034 -7992 Oct, Dysuria R30.0 and Acute cystitis with hematuria N30.01 [facility] [address] [place] [id number] [place] [address] 69907- 9258 Oct, [facility] [address] [id number] [place] [address] 67475- 4762 Oct, [facility] [address] [place] [id number] [place] [address] 53432- 7619 Oct, Controlled substance agreement broken Z91.14 ; Violation of controlled substance agreement Z91.14 ; Other chronic pain G89.29 and Generalized anxiety disorder F41.1 [place] [address] [place] [id number] [place] [address] 20743- 2775 Oct, [facility] [address] [place] [id number] [place] [address] 53017- 9507 Oct, [facility] [address] [place] [id number] [place] [address] 44307- 3620 Sep, Abscess L02.91 [facility] [address] [place] [id number] [place] [address] 97278- 9622 Sep, [facility] [address] [place] [id number] [place] [address] 55754- 4609 Sep, DM (diabetes mellitus) with complications E11.8 ; Generalized anxiety disorder F41.1 and Chronic pain syndrome G89.4 [facility] [address] [place] [id number] [place] [address] 09759- 0989 Sep, Generalized anxiety disorder F41.1 ; Chronic pain syndrome G89.4 ; Abnormal drug screen R89.2 and Other chest pain R07.89 [facility] [address] 75462- 8333 Aug, Dysuria R30.0 [facility] [address] 77751- 6103 Aug, Generalized anxiety disorder F41.1 ; Chronic pain syndrome G89.4 and Dysuria R30.0 [facility] [address] 65451- 3642 Aug, Acute cystitis with hematuria N30.01 and Candidal dermatitis B37.2 [place] [address] 00503- 5450 Aug, Dysuria R30.0 [place] [address] 91234- 1021 Aug, [facility] [address] 43179 -8851 Aug, Dysuria R30.0 [facility] [address] 38579- 8846 Aug, [place] [address] [place] [id number] [place] [address] 62746- 4670 July, Cervicalgia M54.2 ; Acute non intractable tension-type headache G44.209 ; Type 2 diabetes mellitus with hyperglycemia E11.65 and 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 [facility] [address] [place] [id number] [place] [address] 18851- 8501 July, Generalized anxiety disorder F41.1 and Chronic pain syndrome G89.4 [facility] [address] 16374- 2952 July, Abscess L02.91 [facility] [address] 69551- 1337 July, [place] [address] [place] [id number] [place] [address] 88419- 6413 July, [place] [address] 60751- 6075 July, Type 2 diabetes mellitus with hyperglycemia [...] pain syndrome G89.4 and Vaginal candidiasis B37.3 [place] [address] [place] [id number] [place] [address] 25829- 3614 Jun, Generalized anxiety disorder F41.1 and Other chronic pain G89.29 [place] [address] [place] [id number] [place] [address] 00892- 8538 Jun, [place] [address] 16364- 8907 Jun, [place] [address] [place] [id number] [place] [address] 18236- 8801 Jun, Abnormal levels of other serum enzymes R74.8 [place] [address] [place] [id number] [place] [address] 77800- 7605 Jun, Abnormal levels of other serum enzymes R74.8 [facility] [address] [place] [id number] [place] [address] 11572- 7143 Jun, Elevated liver enzymes R74.8 [place] [address] [place] [id number] [place] [address] 07411- 4280 Jun, Elevated liver enzymes R74.8 [place] [address] [place] [id number] [place] [address] 89825- 7654 May, Right upper quadrant pain R10.11 ; Cervicalgia M54.2 and High risk medication use Z79.899 [facility] [address] 41748- 0274 May, Generalized anxiety disorder F41.1 and Other chronic pain G89.29 [facility] [address] 74223- 8309 May, Canker sores oral K12.0 [facility] [address] 03383- 3212 May, Generalized anxiety disorder F41.1 and Other chronic pain G89.29 [facility] [address] 86510- 4390 May, [facility] [address] 34083- 8006 Apr, [facility] [address] 49868 -1032 Apr, Acute cystitis with hematuria N30.01 and Dysuria R30.0 [facility] [address] 26494- 3149 Apr, [facility] [address] [id number] [place] [address] 55178- 5564 Apr, [facility] [address] [place] [id number] [place] [address] 43351- 5488 Apr, DM (diabetes mellitus) with complications E11.8 [facility] [address] [place] [id number] [place] [address] 28954- 6087 06 Apr, 2017 DM (diabetes mellitus) with complications E11.8 [facility] [address] [place] [id number] [place] [address] 89519- 2377 Apr, [facility] [address] 95223- 7907 Apr, [facility] [place] [address] [place] [id number] [place] [address] 41593- 7017 Apr, Other chronic pain G89.29 ; Generalized anxiety disorder F41.1 ; Cervicalgia M54.2 and Controlled substance agreement signed Z79.899 [facility] [place] [address] 91486 -0001 Mar, Abdominal pain R10.9 and Viral gastroenteritis A08.[address] 50484- 0004 Mar, [address] 60686- 1760 Mar, [address] 60897- 1850 Mar, DM (diabetes mellitus) with complications E11.8 ; Type 2 diabetes mellitus with hyperglycemia E11.65 ; FDC current use of insulin Z79.4 ; Essential hypertension I10 ; Bronchitis J40 ; Major depressive disorder , recurrent episode, moderate F33.1 ; Hyperlipidemia, unspecified hyperlipidemia type E78.5 ; Tobacco abuse Z72.0 ; Tobacco abuse counseling Z71.6 ; History of CVA with residual deficit I69.30 ; Gastroesophageal reflux disease, esophagitis presence not specified K21.9 and 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 91101- 7856 Mar, [address] 10782- 7026 Mar, DM (diabetes mellitus) with complications E11.8 ; Abnormal lung sounds R09.89 ; Bronchitis J40 and Hyperlipidemia, unspecified hyperlipidemia type E78.5 [facility] [address] [place] [address] 32257 -9486 Mar, URI, acute J06.[address] 36988- 9827 Mar, [address] [place] [address]- 4228 Mar, DM (diabetes mellitus) with complications E11.8 [place] [address] 14106- 8337 Mar, Other chronic pain G89.29 and Generalized anxiety disorder F41.1 [place] [address] 73907- 1008 Feb, [place] [address] 56598- 0989 Feb, Mass of left lung R91.8 and Cervicalgia M54.2 [place] [address] 23701- 6657 Feb, [place] [address] 61561- 7103 Feb, [facility] [place] [address] 58123 -9804 Feb, Cough R05 and Bronchitis J40 [facility] [address] 36250 -9181 07 Feb, 2017 Acute nasopharyngitis J00 and Bronchitis J40 [place] [address] 26515- 3989 06 Feb, 2017 Other chronic pain G89.29 and Generalized anxiety disorder F41.1 [place] [address] 68659- 5475 Jan, Encounter for immunization Z23 [facility] [address] 96270 -8673 Jan, [facility] [address] 35023 -3181 Jan, [place] [address] 70481- 7604 Jan, Canker sores oral K12.0 [place] [address] [place] [id number] [place] [address] 33843- 4889 14 Jan, 2017 [facility] [address] 58152- 3959 07 Jan, 2017 Other chronic pain G89.29 and Generalized anxiety disorder F41.1 [place] [address] 09954- 6124 06 Jan, 2017 Cough R05 and Bronchitis J40 [facility] [address] 44735 -3795 Jan, Bronchitis J40 [place] [address] 18368- 1482 Dec, Vitamin D deficiency E55.[address] 99081- 9689 Dec, DM (diabetes mellitus) with complications E11.[address] 03703- 0622 Dec, DM (diabetes mellitus) with complications E11.8 and Vitamin D deficiency E55.[address] 53839- 1296 Dec, DM (diabetes mellitus) with complications E11.8 ; Essential hypertension I10 ; Hyperlipidemia, unspecified hyperlipidemia type E78.5 ; Vitamin D deficiency E55.9 ; Gastroesophageal reflux disease, esophagitis presence not specified K21.9 ; 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 ; Other chronic pain G89.29 ; Encounter for immunization Z23 and Generalized anxiety disorder F41.1 [place] [address] [place] [id number] [place] [address] 23950- 0923 12 Nov, 2016 History of CVA with residual deficit I69.[address] 41394- 1895 Nov, DM (diabetes mellitus) with complications E11.[address] 89651- 3733 Nov, Left otitis media with effusion H65.92 ; Bronchitis J40 and Canker sores oral K12.0 [place] [address] 61355- 0552 Oct, [facility] [address] [place] [id number] [place] [address] 80270- 5901 Oct, DM (diabetes mellitus) with complications E11.8 [place] [address] 03514- 2079 Oct, [place] [address] 51110- 5407 Sep, DM (diabetes mellitus) with complications E11.8 [place] [address] 73857- 8692 Sep, DM (diabetes mellitus) with complications E11.8 ; Essential hypertension I10 ; Gastroesophageal reflux disease, esophagitis presence not specified K21.9 ; Hyperlipidemia, unspecified hyperlipidemia type E78.5 ; Tobacco abuse Z72.0 ; Vitamin D deficiency E55.9 ; History of CVA with residual deficit I69.30 and Seasonal allergic rhinitis due to pollen J30.1 [place] [address] 02255- 2161 Sep, [place] [address] 12035- 9337 Aug, [facility] [address] 76788 -4656 Aug, Dysuria R30.0 ; Acute cystitis with hematuria N30.01 and Middle ear effusion, right H65.91 [place] [address] 25466- 6044 Aug, Other complicated headache syndrome G44.59 [facility] [address] 08897- 4507 Aug, DM (diabetes mellitus) with complications E11.8 [place] [address] [place] [address]- 1789 14 Aug, 2016 Dysuria R30.0 [facility] [address] [place] [id number] [place] [address] 32449- 1015 Aug, Dysuria R30.0 [facility] [address] [place] [id number] [place] [address] 33128- 0481 Aug, [facility] [address] [place] [id number] [place] [address] 01445- 6254 July, [facility] [address] [place] [id number] [place] [address] 99654- 7917 July, [facility] [address] [place] [id number] [place] [address] 67033- 9780 July, DM (diabetes mellitus) with complications E11.8 [facility] [address] [place] [id number] [place] [address] 85625- 2599 July, Other complicated headache syndrome G44.59 [facility] [address] [place] [id number] [place] [address] 85201- 4305 July, [facility] [address] [place] [id number] [place] [address] 37549 -0398 July, Dysuria R30.0 and Acute cystitis with hematuria N30.01 [facility] [address] [place] [address] 12206- 2706 July, [facility] [address] [id number] [place] [address] 29222- 0060 July, Other complicated headache syndrome G44.59 [facility] [id number] [place] [address] 88759 -4502 Jun, Exposure to strep throat Z20.818 and Acute upper respiratory infection, unspecified J06.9 [facility] [address] [place] [address] 84081- 9530 Jun, [facility] [address] [place] [id number] [place] [address] 77860- 7679 Jun, DM (diabetes mellitus) with complications E11.8 and Gastroesophageal reflux disease, esophagitis presence not specified K21.9 [facility] [address] [place] [id number] [place] [address] 74912- 3727 Jun, [facility] [id number] [place] [address] 24648- 2474 Jun, Dizziness R42 [facility] [address] [place] [id number] [place] [address] 53225 -8340 Jun, [facility] [address] [place] [id number] [place] [address] 20359- 5543 Jun, [facility] [address] [place] [id number] [place] [address] 36684 -7027 May, Seasonal allergic rhinitis, unspecified allergic rhinitis trigger J30.2 [place] [address] [place] [id number] [place] [address] 78107- 0601 May, [place] [address] [place] [id number] [place] [address] 51267- 9517 May, DM (diabetes mellitus) with complications E11.8 [...] rhinitis due to pollen J30.1 [place] [address] [place] [address] 22259- 5487 May, Gastroesophageal reflux disease, esophagitis presence not specified K21.9 [place] [address] [place] [id number] [place] [address] 19271- 1364 May, [place] [id number] [place] [address] 62262- 2108 Apr, [place] [address] [id number] [address]- 9542 Apr, [facility] [address] [address]- 4697 Mar, [facility] [address] [address]- 2486 Mar, [facility] [address] [place] [id number] [place] [address] 46436- 5264 Mar, [facility] [address] [place] [id number] [place] [address] 32124- 3344 Mar, [facility] [address] [place] [id number] [place] [address] 81336- 8177 Feb, [facility] [address] [place] [id number] [place] [address] 71487- 6114 Feb, [facility] [address] [place] [id number] [place] [address] 06720- 3958 Feb, [facility] [address] [address]- 3110 Feb, Major depressive disorder, recurrent episode, moderate F33.1 ; Generalized anxiety disorder F41.1 ; Essential hypertension I10 ; DM ( diabetes mellitus) with complications E11.8 ; Hyperlipidemia, unspecified hyperlipidemia type E78.5 ; 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 and Gastroesophageal reflux disease, esophagitis presence not specified K21.9 [facility] [address] [address] -5727 Feb, Other viral agents as the cause of diseases classified elsewhere B97.89 and Acute upper respiratory infection, unspecified J06.9 [facility] [address] [address]- 2466 Jan, [facility] [address] [address]- 6368 Jan, [facility] [address] [address] -7981 Jan, Acute bronchitis, unspecified organism J20.9 [place] [address] [place] [id number] [place] [address] 50731- 1114 Jan, [place] [address] [place] [id number] [place] [address] 2602 Jan, History of CVA with residual deficit I69.30 [place] [address] [place] [id number] [place] [address] 11068- 3659 Jan, [place] [address] [place] [id number] [place] [address] 00749- 0683 Jan, Acute bronchitis, unspecified organism J20.9 [place] [address] [place] [id number] [place] [address] 44454- 7194 Jan, [place] [address] [place] [id number] [place] [address] 53731- 4220 Dec, History of CVA with residual deficit I69.30 [place] [address] [place] [id number] [place] [address] 48003- 4311 Dec, [place] [address] [place] [id number] [place] [address] 14065- 7625 Dec, Other chronic pain G89.29 ; DM (diabetes mellitus) with complications E11.8 and History of CVA with residual deficit I69.30 [place] [address] [place] [address] 15423- 4539 Nov, Major depressive disorder, recurrent episode, moderate F33.1 ; Irregular heart rhythm I49.9 ; Essential hypertension I10 ; History of CVA with residual deficit I69.30 ; DM (diabetes mellitus) with complications E11.8 ; Gastroesophageal reflux disease, esophagitis presence not specified K21.9 ; Hyperlipidemia, unspecified hyperlipidemia type E78.5 ; 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 ; Other chronic pain G89.29 and Generalized anxiety disorder F41.1 [place] [address] [place] [address] 96971- 5513 Oct, Generalized anxiety disorder F41.1 ; Major depressive disorder, recurrent episode, moderate F33.1 ; Essential hypertension I10 ; History of CVA with residual deficit I69.30 ; DM (diabetes mellitus) with complications E11.8 ; Gastroesophageal reflux disease, esophagitis presence not specified K21.9 ; Hyperlipidemia, unspecified hyperlipidemia type E78.5 ; Other chronic pain G89.29 and Bacterial conjunctivitis of left eye H10.[address] [place] [address] 77855- 9601 Sep, Chronic pain syndrome G89.4 and DM (diabetes mellitus) with complications E11.8 [place] [id number] [place] [address] 48153- 0583 Sep, Irregular heart rhythm I49.9 ; Routine health maintenance Z00.00 ; Essential hypertension I10 ; History of CVA with residual deficit I69.30 ; Gastroesophageal reflux disease, esophagitis presence not specified K21.9 ; DM (diabetes mellitus) with complications E11.8 ; Hyperlipidemia, unspecified hyperlipidemia type E78.5 and Other complicated headache syndrome G44.59 [place] [address] [place] [id number] [place] [address] 00358- 6498 Jun, [place] [id number] [place] [address] 54010- 3104 Jun, [place] [address] [place] [id number] [place] [address] 01868- 6257 Aug, [place] [id number] [place] [address] 69011- 2246 Jun, IMMUNIZATIONS No Known Immunizations SOCIAL HISTORY [...] Clotting Disorder- Dr Galvan at [facility] Medical History Possible Anemia (currently under work up) - Dr Galvan [facility] Medical History irregular heart beat-sees dr. hassan Medical History history of pancreatitis Medical History gerd Medical History History of CVA with residual deficit Medical History Other complicated headache syndrome Medical History Stokes syndrome Surgical History tubal ligation Surgical History section Surgical History cholecystectomy Surgical History Toe Nail Removal x2 Hospitalization History Brain Stem Strokes x5. Has been hospitalized at then transfered to [place]. 2014 Hospitalization History Child Hospitalization History abd pain and shakiness - [facility] ED visit [facility] Hospitalization History [facility] ED for URI 04/16/17 Hospitalization History via [facility] er 08/16/17
--- OUTSIDE RECORDS SUMMARY | 2018-01-23 16:56 | XMS REPORT ---
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 Name Role Phone HUIZARSOTERO Cox Unavailable PROBLEMS Type Condition ICD9-CM Code KDC03-UE Code Onset Dates Condition Status SNOMED Code Problem Tobacco abuse Z72.0 Active 430606861 Problem Seasonal allergic rhinitis due to pollen J30.1 Active 12908277 Problem Tobacco abuse counseling Z71.6 Active 575336718 Problem Abnormal drug screen R89.2 Active 356247492 Problem Acute non intractable tension-type headache G44.209 Active 154390230 Problem jail current use of insulin Z79.4 Active 719071353 Problem History of CVA with residual deficit I69.30 Active 535796445 Problem Chronic pain syndrome G89.4 Active 159881671 Problem Type 2 diabetes mellitus with hyperglycemia E11.65 Active 84195124 Problem Elevated liver enzymes R74.8 Active 019885753 Problem Generalized anxiety disorder F41.1 Active 64602319 Problem Vitamin D deficiency E55.9 Active 41319037 Problem Major depressive disorder, recurrent episode, moderate F33.1 Active 608380126 Problem Hyperlipidemia, unspecified hyperlipidemia type E78.5 Active 29559974 Problem Gastroesophageal reflux disease, esophagitis presence not specified K21.9 Active 748238392 Problem 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 Active 460665251 Problem Essential hypertension I10 Active 36575381 Problem DM (diabetes mellitus) with complications E11.8 Active 32225270 Problem Other chronic pain G89.29 Active 12096665 ALLERGIES No Information ENCOUNTERS Encounter Location Date Diagnosis [facility] [id number] [address] Nov, Dysuria R30.0 and Flank pain R10.9 [facility] [id number] [address] Oct, [facility] [id number] [place] [address] 45505 -1478 Oct, [facility] [address] 8[address]66 -5581 Oct, Dysuria R30.0 and Acute cystitis with hematuria N30.01 [facility] [address] 38416- 2705 Oct, [facility] [address] 22098- 7528 Oct, [facility] [id number] [place] [address] 37210- 9373 Oct, Controlled substance agreement broken Z91.14 ; Violation of controlled substance agreement Z91.14 ; Other chronic pain G89.29 and Generalized anxiety disorder F41.1 [place] [address] 88221- 2968 Oct, [facility] [id number] [place] [address] 47701- 4199 Oct, [facility] [address] 85893- 0349 Sep, Abscess L02.91 [facility] [id number] [place] [address] 55470- 8633 Sep, [facility] [address] 56758- 0333 Sep, DM (diabetes mellitus) with complications E11.8 ; Generalized anxiety disorder F41.1 and Chronic pain syndrome G89.4 [place] [address] 01717- 6623 Sep, Generalized anxiety disorder F41.1 ; Chronic pain syndrome G89.4 ; Abnormal drug screen R89.2 and Other chest pain R07.89 [facility] [id number] [place] [address] 33914- 1455 Aug, Dysuria R30.0 [facility] [id number] [place] [address] 55869- 3684 Aug, Generalized anxiety disorder F41.1 ; Chronic pain syndrome G89.4 and Dysuria R30.0 [facility] [id number] [place] [address] 95929- 1173 Aug, Acute cystitis with hematuria N30.01 and Candidal dermatitis B37.2 [facility] [id number] [place] [address] 34674- 9898 Aug, Dysuria R30.0 [facility] [id number] [place] [address] 49277- 5762 Aug, [facility] [id number] [place] [address] 94852 -5305 Aug, Dysuria R30.0 [facility] [id number] [place] [address] 84117- 7230 Aug, [facility] [id number] [place] [address] 01382- 8674 July, Cervicalgia M54.2 ; Acute non intractable tension-type headache G44.209 ; Type 2 diabetes mellitus with hyperglycemia E11.65 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 [place] [id number] [place] [address] 32847- 5059 July, Generalized anxiety disorder F41.1 and Chronic pain syndrome G89.4 [facility] [id number] [place] [address] 30435- 0732 July, Abscess L02.91 [facility] [id number] [place] [address] 28034- 8379 July, [facility] [id number] [place] [address] 75621- 4245 July, [facility] [id number] [place] [address] 16281- 0238 15 May, 2018 Type 2 diabetes mellitus with hyperglycemia E11.65 ; 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 ; [...] pain syndrome G89.4 and Vaginal candidiasis B37.3 [place] [address] 58797- 5028 Jun, Generalized anxiety disorder F41.1 and Other chronic pain G89.29 [place] [address] 82912- 2423 Jun, [place] [address] 91633- 7020 Jun, [place] [address] 48902- 8009 Jun, Abnormal levels of other serum enzymes R74.8 [place] [address] 84935- 6424 Jun, Abnormal levels of other serum enzymes R74.8 [place] [address] 71360- 9319 Jun, Elevated liver enzymes R74.8 [place] [address] 51904- 2349 Jun, Elevated liver enzymes R74.8 [place] [address] 31272- 8284 May, Right upper quadrant pain R10.11 ; Cervicalgia M54.2 and High risk medication use Z79.899 [place] [address] 48522- 6470 May, Generalized anxiety disorder F41.1 and Other chronic pain G89.29 [facility] [id number] [place] [address] 76178- 7631 May, Canker sores oral K12.0 [facility] [id number] [place] [address] 33908- 0454 May, Generalized anxiety disorder F41.1 and Other chronic pain G89.29 [facility] [id number] [place] [address] 27693- 6056 May, [facility] [id number] [place] [address] 22013- 5243 Apr, [facility] [id number] [place] [address] 04624 -2708 Apr, Acute cystitis with hematuria N30.01 and Dysuria R30.0 [place] [id number] [place] [address] 06117- 6223 Apr, [facility] [id number] [place] [address] 37230- 6255 Apr, [facility] [id number] [place] [address] 91360- 3795 Apr, DM (diabetes mellitus) with complications E11.8 [place] [id number] [place] [address] 31005- 2895 Apr, DM (diabetes mellitus) with complications E11.8 [facility] [id number] [place] [address] 90095- 6639 Apr, [facility] [id number] [place] [address] 56305- 6419 Apr, [facility] [id number] [place] [address] 24635- 5413 Apr, Other chronic pain G89.29 ; Generalized anxiety disorder F41.1 ; Cervicalgia M54.2 and Controlled substance agreement signed Z79.899 [facility] [id number] [place] [address] 05695 -1409 Mar, Abdominal pain R10.9 and Viral gastroenteritis A08.4 [place] [id number] [place] [address] 73396- 5209 Mar, [place] [id number] [place] [address] 11051- 0395 Mar, [place] [address] 41856- 9763 Mar, DM (diabetes mellitus) with complications E11.8 ; Type 2 diabetes mellitus with hyperglycemia E11.65 ; 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 ; Essential hypertension I10 ; Bronchitis J40 ; Major depressive disorder , recurrent episode, moderate F33.1 ; Hyperlipidemia, unspecified hyperlipidemia type E78.5 ; Tobacco abuse Z72.0 ; Tobacco abuse counseling Z71.6 ; History of CVA with residual deficit I69.30 ; Gastroesophageal reflux disease, esophagitis presence not specified K21.9 and 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 [address] [place] [id number] [place] [address] 53825- 3448 Mar, [id number] [place] [address] 70664- 8867 Mar, DM (diabetes mellitus) with complications E11.8 ; Abnormal lung sounds R09.89 ; Bronchitis J40 and Hyperlipidemia, unspecified hyperlipidemia type E78.5 [facility] [id number] [place] [address] 14727 -0701 Mar, URI, acute J06.9 [place] [id number] [place] [address] 38119- 5335 Mar, [address] 33679- 4274 Mar, DM (diabetes mellitus) with complications E11.8 [place] [id number] [place] [address] 88331- 4421 Mar, Other chronic pain G89.29 and Generalized anxiety disorder F41.1 [facility] [id number] [place] [address] 85117- 0761 Feb, [facility] [address] 39718- 2064 Feb, Mass of left lung R91.8 and Cervicalgia M54.2 [facility] [address] 50274- 1749 Feb, [facility] [address] 35718- 9850 Feb, [facility] [place] [address] 00928 -0342 11 Feb, 2017 Cough R05 and Bronchitis J40 [facility] [address] [place] [address] 00969 -3656 07 Feb, 2017 Acute nasopharyngitis J00 and Bronchitis J40 [place] [address] 85126- 4191 06 Feb, 2017 Other chronic pain G89.29 and Generalized anxiety disorder F41.1 [place] [address] 21465- 5767 Jan, Encounter for immunization Z23 [facility] [place] [id number] [place] [address] 33949 -3222 Jan, [facility] [address] 78889 -4707 18 Jan, 2017 [facility] [address] 69905- 1356 16 Jan, 2017 Canker sores oral K12.0 [place] [id number] [place] [address] 31830- 4849 14 Jan, 2017 [facility] [id number] [place] [address] 36775- 0490 07 Jan, 2017 Other chronic pain G89.29 and Generalized anxiety disorder F41.1 [facility] [address] 49503- 7045 Jan, Cough R05 and Bronchitis J40 [facility] [address] 41407 -3024 Jan, Bronchitis J40 [facility] [address] 80780- 1119 Dec, Vitamin D deficiency E55.9 [place] [address] 57379- 6101 Dec, DM (diabetes mellitus) with complications E11.[address] 37130- 4559 Dec, DM (diabetes mellitus) with complications E11.8 and Vitamin D deficiency E55.[address] 48206- 5255 Dec, DM (diabetes mellitus) with complications E11.8 ; Essential hypertension I10 ; Hyperlipidemia, unspecified hyperlipidemia type E78.5 ; Vitamin D deficiency E55.9 ; Gastroesophageal reflux disease, esophagitis presence not specified K21.9 ; 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 ; Other chronic pain G89.29 ; Encounter for immunization Z23 and Generalized anxiety disorder F41.[address] 55658- 2569 12 Nov, 2016 History of CVA with residual deficit I69.30 [place] [address] 05734- 9281 11 Nov, 2016 DM (diabetes mellitus) with complications E11.[address] 28461- 0072 06 Nov, 2016 Left otitis media with effusion H65.92 ; Bronchitis J40 and Canker sores oral K12.[address] 47803- 6976 Oct, [place] [id number] [place] [address] 61658- 7443 04 Oct, 2016 DM (diabetes mellitus) with complications E11.8 [place] [id number] [place] [address] 50960- 2318 02 Oct, 2016 [place] [id number] [place] [address] 89390- 7947 17 Sep, 2016 DM (diabetes mellitus) with complications E11.8 [place] [address] 37718- 6240 11 Sep, 2016 DM (diabetes mellitus) with complications E11.8 ; Essential hypertension I10 ; Gastroesophageal reflux disease, esophagitis presence not specified K21.9 ; Hyperlipidemia, unspecified hyperlipidemia type E78.5 ; Tobacco abuse Z72.0 ; Vitamin D deficiency E55.9 ; History of CVA with residual deficit I69.30 and Seasonal allergic rhinitis due to pollen J30.1 [place] [address] 78698- 4064 Sep, [place] [address] 25426- 2121 30 Aug, 2016 [facility] [id number] [place] [address] 76443 -8968 Aug, Dysuria R30.0 ; Acute cystitis with hematuria N30.01 and Middle ear effusion, right H65.91 [place] [id number] [place] [address] 27889- 5435 Aug, Other complicated headache syndrome G44.59 [place] [id number] [place] [address] 51234- 3127 19 Aug, 2016 DM (diabetes mellitus) with complications E11.8 [place] [id number] [place] [address] 96388- 0798 14 Aug, 2016 Dysuria R30.0 [place] [id number] [place] [address] 02703- 0269 12 Aug, 2016 Dysuria R30.0 [facility] [address] [address]- 7010 Aug, [facility] [id number] [place] [address] 68804- 8839 July, [facility] [id number] [place] [address] 61729- 8464 July, [facility] [id number] [place] [address] 83781- 2458 July, DM (diabetes mellitus) with complications E11.8 [place] [id number] [place] [address] 93750- 3637 July, Other complicated headache syndrome G44.59 [place] [id number] [place] [address] 83183- 2484 July, [facility] [id number] [place] [address] 47509 -0771 July, Dysuria R30.0 and Acute cystitis with hematuria N30.01 [place] [id number] [place] [address] 37174- 1865 July, [place] [id number] [place] [address] 68527- 6149 July, Other complicated headache syndrome G44.59 [facility] [address] [place] [address] 58416 -5819 Jun, Exposure to strep throat Z20.818 and Acute upper respiratory infection, unspecified J06.9 [place] [address] [place] [address] 54032- 1769 Jun, [place] [id number] [place] [address] 08336- 9877 Jun, DM (diabetes mellitus) with complications E11.8 and Gastroesophageal reflux disease, esophagitis presence not specified K21.9 [place] [id number] [place] [address] 13061- 3200 Jun, Dizziness R42 [facility] [id number] [place] [address] 30012- 8790 Jun, [facility] [id number] [place] [address] 94600 -0353 Jun, [facility] [id number] [place] [address] 46911- 5664 Jun, [facility] [id number] [place] [address] 84135 -0924 May, Seasonal allergic rhinitis, unspecified allergic rhinitis trigger J30.2 [facility] [address] 56743- 0858 May, [facility] [id number] [place] [address] 78919- 7079 May, DM (diabetes mellitus) with complications E11.8 [...] [facility] [id number] [place] [address] 91342- 4088 May, Gastroesophageal reflux disease, esophagitis presence not specified K21.9 [facility] [id number] [place] [address] 99201- 1984 May, [facility] [id number] [place] [address] 04051- 1957 Apr, [facility] [id number] [place] [address] 45718- 7344 Apr, [facility] [id number] [place] [address] 90109- 5038 Mar, [facility] [address] [address]- 2476 Mar, [facility] [id number] [place] [address] 17489- 0487 Mar, [facility] [id number] [place] [address] 83275- 2855 Mar, [facility] [id number] [place] [address] 79239- 3026 Feb, [facility] [id number] [place] [address] 06685- 8386 Feb, [facility] [id number] [place] [address] 35552- 5073 Feb, [facility] [id number] [place] [address] 17761- 0671 Feb, Major depressive disorder, recurrent episode, moderate F33.1 ; Generalized anxiety disorder F41.1 ; Essential hypertension I10 ; DM ( diabetes mellitus) with complications E11.8 ; Hyperlipidemia, unspecified hyperlipidemia type E78.5 ; 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 and Gastroesophageal reflux disease, esophagitis presence not specified K21.9 [facility] [id number] [place] [address] 69731 -2587 Feb, Other viral agents as the cause of diseases classified elsewhere B97.89 and Acute upper respiratory infection, unspecified J06.9 [facility] [address] [place] [address] 05674- 3681 Jan, [facility] [address] [place] [address] 96333- 4051 Jan, [facility] [id number] [place] [address] 33652 -1075 Jan, Acute bronchitis, unspecified organism J20.9 [facility] [id number] [place] [address] 86792- 2019 Jan, [facility] [id number] [place] [address] 68784- 6777 Jan, History of CVA with residual deficit I69.30 [place] [id number] [place] [address] 33924- 5533 Jan, [place] [id number] [place] [address] 39592- 1578 Jan, Acute bronchitis, unspecified organism J20.9 [place] [id number] [place] [address] 20135- 6619 Jan, [place] [id number] [place] [address] 49590- 5388 Dec, History of CVA with residual deficit I69.30 [place] [id number] [place] [address] 21621- 9246 Dec, [place] [id number] [place] [address] 25674- 7213 Dec, Other chronic pain G89.29 ; DM (diabetes mellitus) with complications E11.8 and History of CVA with residual deficit I69.30 [place] [id number] [place] [address] 85904- 8873 Nov, Major depressive disorder, recurrent episode, moderate F33.1 ; Irregular heart rhythm I49.9 ; Essential hypertension I10 ; History of CVA with residual deficit I69.30 ; DM (diabetes mellitus) with complications E11.8 ; Gastroesophageal reflux disease, esophagitis presence not specified K21.9 ; Hyperlipidemia, unspecified hyperlipidemia type E78.5 ; 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 ; Other chronic pain G89.29 and Generalized anxiety disorder F41.1 [place] [address] [place] [address] 88612- 6619 Oct, Generalized anxiety disorder F41.1 ; Major depressive disorder, recurrent episode, moderate F33.1 ; Essential hypertension I10 ; History of CVA with residual deficit I69.30 ; DM (diabetes mellitus) with complications E11.8 ; Gastroesophageal reflux disease, esophagitis presence not specified K21.9 ; Hyperlipidemia, unspecified hyperlipidemia type E78.5 ; Other chronic pain G89.29 and Bacterial conjunctivitis of left eye H10.9 [place] [id number] [place] [address] 91596- 5633 Sep, Chronic pain syndrome G89.4 and DM (diabetes mellitus) with complications E11.[address] 96895- 4934 05 Sep, 2015 Irregular heart rhythm I49.9 ; Routine health maintenance Z00.00 ; Essential hypertension I10 ; History of CVA with residual deficit I69.30 ; Gastroesophageal reflux disease, esophagitis presence not specified K21.9 ; DM (diabetes mellitus) with complications E11.8 ; Hyperlipidemia, unspecified hyperlipidemia type E78.5 and Other complicated headache syndrome G44.[address] 07264- 2841 14 Jun, [address] 88552- 7850 Jun, [address] 63809- 6859 Aug, [address] 92040- 3087 Jun, IMMUNIZATIONS No Known Immunizations SOCIAL HISTORY Never Assessed REASON FOR VISIT awaiting weaning plan PLAN OF CARE VITAL SIGNS MEDICATIONS Unknown Medications RESULTS No Results PROCEDURES No Known procedures INSTRUCTIONS MEDICATIONS ADMINISTERED No Known Medications MEDICAL (GENERAL) HISTORY Type Description Date Medical History diabetes mellitus Medical History hyperlipidemia Medical History hypertension Medical History Anxiety disorder Medical History Blood Clotting Disorder- Dr Galvan at [facility] Medical History Possible Anemia (currently under work up) - Dr Galvan [facility] Medical History irregular heart [...] Has been hospitalized at then transfered to [place]. 2014 Hospitalization History Child Hospitalization History abd pain and shakiness - [facility] ED visit [facility] Hospitalization History [facility] ED for URI 04/16/17 Hospitalization History via [place] [facility] er 08/16/17
--- OUTSIDE RECORDS SUMMARY | 2018-01-23 16:56 | XMS REPORT ---
Author Author GAYE SOTERO Organization [facility] [place] Address [address] [place] [address] Care Team Providers Care Instruction Assistant Principal Name Role Phone HUIZARSOTERO Cox Unavailable PROBLEMS Type Condition ICD9-CM Code ONG49-SM Code Onset Dates Condition Status SNOMED Code Problem Tobacco abuse Z72.0 Active 111767158 Problem Seasonal allergic rhinitis due to pollen J30.1 Active 39165018 Problem Tobacco abuse counseling Z71.6 Active 079435688 Problem Abnormal drug screen R89.2 Active 681067483 Problem Acute non intractable tension-type headache G44.209 Active 266847230 Problem 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.4 Active 510747637 Problem History of CVA with residual deficit I69.30 Active 586514527 Problem Chronic pain syndrome G89.4 Active 492842174 Problem Type 2 diabetes mellitus with hyperglycemia E11.65 Active 75255922 Problem Elevated liver enzymes R74.8 Active 801882923 Problem Generalized anxiety disorder F41.1 Active 12704775 Problem Vitamin D deficiency E55.9 Active 08084708 Problem Major depressive disorder, recurrent episode, moderate F33.1 Active 472426482 Problem Hyperlipidemia, unspecified hyperlipidemia type E78.5 Active 37043090 Problem Gastroesophageal reflux disease, esophagitis presence not specified K21.9 Active 305451393 Problem 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 Active 447859629 Problem Essential hypertension I10 Active 53345919 Problem DM (diabetes mellitus) with complications E11.8 Active 31568095 Problem Other chronic pain G89.29 Active 14660656 ALLERGIES No Information ENCOUNTERS Encounter Location Date Diagnosis [facility] [place] [id number], [place] [address] Nov, Dysuria R30.0 and Flank pain R10.9 [facility] [place] [id number] [address] Oct, [facility] [id number] [place] [address] 41594 -4961 Oct, [facility] [address] [address]45 [address] Oct, Dysuria R30.0 and Acute cystitis with hematuria N30.01 [facility] [place] [address] [address] Oct, [facility] [place] [address] [address]- 5823 Oct, [facility] [place] [id number] [place] [address] 34641- 8253 Oct, Controlled substance agreement broken Z91.14 ; Violation of controlled substance agreement Z91.14 ; Other chronic pain G89.29 and Generalized anxiety disorder F41.1 [place] [address] [address]31 Oct, [facility] [place] [id number] [place] [address] 42661- 3483 Oct, [facility] [place] [address] 36996- 6608 Sep, Abscess L02.91 [facility] [place] [id number] [place] [address] 03334- 3273 Sep, [facility] [place] [address] 11631- 2612 Sep, DM (diabetes mellitus) with complications E11.8 ; Generalized anxiety disorder F41.1 and Chronic pain syndrome G89.4 [place] [address] [address]- 7111 Sep, Generalized anxiety disorder F41.1 ; Chronic pain syndrome G89.4 ; Abnormal drug screen R89.2 and Other chest pain R07.89 [facility] [place] [id number] [place] [address] 46120- 4351 Aug, Dysuria R30.0 [facility] [place] [id number] [place] [address] 36313- 9807 Aug, Generalized anxiety disorder F41.1 ; Chronic pain syndrome G89.4 and Dysuria R30.0 [facility] [place] [id number] [place] [address] 28001- 7255 Aug, Acute cystitis with hematuria N30.01 and Candidal dermatitis B37.2 [facility] [place] [id number] [place] [address] 15114- 6876 Aug, Dysuria R30.0 [facility] [place] [id number] [place] [address] 44622- 7700 Aug, [facility] [id number] [place] [address] 33988 -4499 Aug, Dysuria R30.0 [facility] [place] [id number] [place] [address] 43345- 9794 Aug, [facility] [place] [id number] [place] [address] 97497- 3739 July, Cervicalgia M54.2 ; Acute non intractable tension-type headache G44.209 ; Type 2 diabetes mellitus with hyperglycemia E11.65 and manager intermediate current use of insulin Z79.4 [place] [id number] [place] [address] 04804- 3107 July, Generalized anxiety disorder F41.1 and Chronic pain syndrome G89.4 [facility] [place] [id number] [place] [address] 39859- 8766 July, Abscess L02.91 [facility] [place] [id number] [place] [address] 84595- 9330 July, [facility] [place] [id number] [place] [address] 14144- 3449 July, [facility] [place] [id number] [place] [address] 30946- 5494 15 May, 2018 Type 2 diabetes mellitus with hyperglycemia E11.65 ; manager intermediate current use of insulin Z79.4 ; [...] pain syndrome G89.4 and Vaginal candidiasis B37.3 [place] [address] 02856- 2622 Jun, Generalized anxiety disorder F41.1 and Other chronic pain G89.29 [place] [address] 03785- 3577 Jun, [place] [address] 50788- 1725 Jun, [place] [address] 05354- 7584 Jun, Abnormal levels of other serum enzymes R74.8 [place] [address] 75654- 9287 Jun, Abnormal levels of other serum enzymes R74.8 [place] [address] 41369- 1595 Jun, Elevated liver enzymes R74.8 [place] [address] 83281- 5942 Jun, Elevated liver enzymes R74.8 [place] [address] 54594- 2745 May, Right upper quadrant pain R10.11 ; Cervicalgia M54.2 and High risk medication use Z79.899 [place] [address] 98019- 4378 May, Generalized anxiety disorder F41.1 and Other chronic pain G89.29 [facility] [place] [id number] [place] [address] 50447- 8470 May, Canker sores oral K12.0 [facility] [place] [id number] [place] [address] 98308- 3191 May, Generalized anxiety disorder F41.1 and Other chronic pain G89.29 [facility] [place] [id number] [place] [address] 24406- 8335 May, [facility] [place] [id number] [place] [address] 21353- 7845 Apr, [facility] [id number] [place] [address] 73353 -4793 Apr, Acute cystitis with hematuria N30.01 and Dysuria R30.0 [place] [id number] [place] [address] 22890- 3314 Apr, [facility] [place] [id number] [place] [address] 23310- 8804 Apr, [facility] [place] [id number] [place] [address] 22897- 6607 Apr, DM (diabetes mellitus) with complications E11.8 [place] [id number] [place] [address] 20765- 3674 Apr, DM (diabetes mellitus) with complications E11.8 [facility] [place] [id number] [place] [address] 10321- 3872 Apr, [facility] [place] [id number] [place] [address] 38775- 6551 Apr, [facility] [place] [id number] [place] [address] 36513- 3605 Apr, Other chronic pain G89.29 ; Generalized anxiety disorder F41.1 ; Cervicalgia M54.2 and Controlled substance agreement signed Z79.899 [facility] [id number] [place] [address] 86241 -3840 Mar, Abdominal pain R10.9 and Viral gastroenteritis A08.4 [place] [id number] [place] [address] 79529- 1878 Mar, [place] [id number] [place] [address] 71036- 3967 Mar, [place] [address] 27359- 1691 Mar, DM (diabetes mellitus) with complications E11.8 ; Type 2 diabetes mellitus with hyperglycemia E11.65 ; manager intermediate current use of insulin Z79.4 ; Essential hypertension I10 ; Bronchitis J40 ; Major depressive disorder , recurrent episode, moderate F33.1 ; Hyperlipidemia, unspecified hyperlipidemia type E78.5 ; Tobacco abuse Z72.0 ; Tobacco abuse counseling Z71.6 ; History of CVA with residual deficit I69.30 ; Gastroesophageal reflux disease, esophagitis presence not specified K21.9 and 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 [place] [id number] [place] [address] 78228- 9438 Mar, [place] [id number] [place] [address] 44127- 1754 Mar, DM (diabetes mellitus) with complications E11.8 ; Abnormal lung sounds R09.89 ; Bronchitis J40 and Hyperlipidemia, unspecified hyperlipidemia type E78.5 [facility] [id number] [place] [address] 73234 -9769 Mar, URI, acute J06.9 [place] [id number] [place] [address] 00832- 9445 Mar, [address] 39334- 9068 Mar, DM (diabetes mellitus) with complications E11.8 [place] [id number] [place] [address] 26035- 3023 Mar, Other chronic pain G89.29 and Generalized anxiety disorder F41.1 [facility] [place] [id number] [place] [address] 04273- 6487 Feb, [facility] [place] [address] 83069- 4043 Feb, Mass of left lung R91.8 and Cervicalgia M54.2 [facility] [place] [address] 92438- 2988 Feb, [facility] [place] [address] 24669- 0234 Feb, [facility] [place] [id number] 13109 -0318 11 Feb, 2017 Cough R05 and Bronchitis J40 [facility] [place] [address] 58873 -4026 07 Feb, 2017 Acute nasopharyngitis J00 and Bronchitis J40 [place] [address] 90355- 0842 06 Feb, 2017 Other chronic pain G89.29 and Generalized anxiety disorder F41.1 [place] [address] 76557- 5496 Jan, Encounter for immunization Z23 [facility] [place] [id number] [place] [address] 35848 -7854 Jan, [facility] [address] 25624 -2876 18 Jan, 2017 [facility] [place] [address] 65420- 5449 16 Jan, 2017 Canker sores oral K12.0 [place] [id number] [place] [address] 16213- 0822 14 Jan, 2017 [facility] [place] [id number] [place] [address] 42912- 5459 07 Jan, 2017 Other chronic pain G89.29 and Generalized anxiety disorder F41.1 [facility] [place] [address] 76342- 1237 Jan, Cough R05 and Bronchitis J40 [facility] [address] 29491 -5680 Jan, Bronchitis J40 [facility] [place] [address] 29329- 4483 Dec, Vitamin D deficiency E55.9 [place] [address] 85701- 7036 Dec, DM (diabetes mellitus) with complications E11.[address] 11839- 1610 Dec, DM (diabetes mellitus) with complications E11.8 and Vitamin D deficiency E55.[address] 00471- 1464 Dec, DM (diabetes mellitus) with complications E11.8 ; Essential hypertension I10 ; Hyperlipidemia, unspecified hyperlipidemia type E78.5 ; Vitamin D deficiency E55.9 ; Gastroesophageal reflux disease, esophagitis presence not specified K21.9 ; 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 ; Other chronic pain G89.29 ; Encounter for immunization Z23 and Generalized anxiety disorder F41.[address] 76769- 7092 12 Nov, 2016 History of CVA with residual deficit I69.30 [place] [address] 12984- 2734 11 Nov, 2016 DM (diabetes mellitus) with complications E11.[address] 13583- 2956 06 Nov, 2016 Left otitis media with effusion H65.92 ; Bronchitis J40 and Canker sores oral K12.[address] 58203- 6253 Oct, [place] [id number] [place] [address] 14725- 8189 04 Oct, 2016 DM (diabetes mellitus) with complications E11.8 [place] [id number] [place] [address] 98054- 1435 02 Oct, 2016 [place] [id number] [place] [address] 38658- 2740 17 Sep, 2016 DM (diabetes mellitus) with complications E11.8 [place] [address] 44858- 3876 11 Sep, 2016 DM (diabetes mellitus) with complications E11.8 ; Essential hypertension I10 ; Gastroesophageal reflux disease, esophagitis presence not specified K21.9 ; Hyperlipidemia, unspecified hyperlipidemia type E78.5 ; Tobacco abuse Z72.0 ; Vitamin D deficiency E55.9 ; History of CVA with residual deficit I69.30 and Seasonal allergic rhinitis due to pollen J30.1 [place] [address] 28469- 5797 Sep, [place] [address] 41591- 7327 30 Aug, 2016 [facility] [id number] [place] [address] 28895 -0018 Aug, Dysuria R30.0 ; Acute cystitis with hematuria N30.01 and Middle ear effusion, right H65.91 [place] [id number] [place] [address] 81767- 7289 Aug, Other complicated headache syndrome G44.59 [place] [id number] [place] [address] 62756- 6911 19 Aug, 2016 DM (diabetes mellitus) with complications E11.8 [place] [id number] [place] [address] 98982- 7610 14 Aug, 2016 Dysuria R30.0 [place] [id number] [place] [address] 27445- 8800 12 Aug, 2016 Dysuria R30.0 [facility] [place] [address], [place] [address]- 6641 Aug, [facility] [place] [id number] [place] [address] 46277- 9599 July, [facility] [place] [id number] [place] [address] 69724- 9078 July, [facility] [place] [id number] [place] [address] 05631- 3851 July, DM (diabetes mellitus) with complications E11.8 [place] [id number] [place] [address] 43069- 4676 July, Other complicated headache syndrome G44.59 [place] [id number] [place] [address] 43591- 8869 July, [facility] [id number] [place] [address] 72379 -4888 July, Dysuria R30.0 and Acute cystitis with hematuria N30.01 [place] [id number] [place] [address] 81769- 8359 July, [place] [id number] [place] [address] 83191- 7991 July, Other complicated headache syndrome G44.59 [facility] [address] [place] [address] 85500 -9396 Jun, Exposure to strep throat Z20.818 and Acute upper respiratory infection, unspecified J06.9 [place] [address] [place] [address] 41046- 1909 Jun, [place] [id number] [place] [address] 49077- 7408 Jun, DM (diabetes mellitus) with complications E11.8 and Gastroesophageal reflux disease, esophagitis presence not specified K21.9 [place] [id number] [place] [address] 11250- 8232 Jun, [facility] [place] [address], [place] [address]- 1779 Jun, Dizziness R42 [facility] [id number] [place] [address] 58513 -5087 Jun, [facility] [place] [id number] [place] [address] 30592- 7058 Jun, [facility] [id number] [place] [address] 81711 -2312 May, Seasonal allergic rhinitis, unspecified allergic rhinitis trigger J30.2 [facility] [place] [address] 85472- 7487 May, [facility] [place] [id number] [place] [address] 63885- 3931 May, DM (diabetes mellitus) with complications E11.8 [...] Seasonal allergic rhinitis due to pollen J30.1 [facility] [place] [id number] [place] [address] 38749- 1861 May, Gastroesophageal reflux disease, esophagitis presence not specified K21.9 [facility] [place] [id number] [place] [address] 33457- 3914 May, [facility] [place] [id number] [place] [address] 25735- 3777 Apr, [facility] [place] [id number] [place] [address] 06602- 1619 Apr, [facility] [place] [id number] [place] [address] 74481- 1955 Mar, [facility] [place] [address] [place] [address]- 9989 Mar, [facility] [place] [id number] [place] [address] 34813- 1194 Mar, [facility] [place] [id number] [place] [address] 99326- 9345 Mar, [facility] [place] [id number] [place] [address] 36089- 8027 Feb, [facility] [place] [id number] [place] [address] 50704- 2475 Feb, [facility] [place] [id number] [place] [address] 18480- 5377 Feb, [facility] [place] [id number] [place] [address] 27920- 9102 Feb, Major depressive disorder, recurrent episode, moderate F33.1 ; Generalized anxiety disorder F41.1 ; Essential hypertension I10 ; DM ( diabetes mellitus) with complications E11.8 ; Hyperlipidemia, unspecified hyperlipidemia type E78.5 ; 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 and Gastroesophageal reflux disease, esophagitis presence not specified K21.9 [facility] [id number] [place] [address] 92859 -0420 Feb, Other viral agents as the cause of diseases classified elsewhere B97.89 and Acute upper respiratory infection, unspecified J06.9 [facility] [place] [id number] [place] [address] 15080- 9572 Jan, [facility] [place] [id number] [place] [address] 05777- 4696 Jan, [facility] [id number] [place] [address] 30894 -7510 Jan, Acute bronchitis, unspecified organism J20.9 [facility] [place] [id number] [place] [address] 04722- 3595 Jan, [facility] [place] [id number] [place] [address] 73655- 7960 Jan, History of CVA with residual deficit I69.30 [place] [id number] [place] [address] 92033- 7379 Jan, [place] [id number] [place] [address] 12736- 1915 Jan, Acute bronchitis, unspecified organism J20.9 [place] [id number] [place] [address] 53104- 1839 Jan, [facility] [id number] [place] [address] [id number] Dec, History of CVA with residual deficit I69.30 [facility] [id number] [place] [address] [id number]- 1136 Dec, [facility] [id number] [place] [address] 41550- 3115 Dec, Other chronic pain G89.29 ; DM (diabetes mellitus) with complications E11.8 and History of CVA with residual deficit I69.30 [facility] [id number] [place] [address] [id number] [phone] Nov, Major depressive disorder, recurrent episode, moderate F33.1 ; Irregular heart rhythm I49.9 ; Essential hypertension I10 ; History of CVA with residual deficit I69.30 ; DM (diabetes mellitus) with complications E11.8 ; Gastroesophageal reflux disease, esophagitis presence not specified K21.9 ; Hyperlipidemia, unspecified hyperlipidemia type E78.5 ; 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 ; Other chronic pain G89.29 and Generalized anxiety disorder F41.1 [place] [id number] [place] [address] [phone] Oct, Generalized anxiety disorder F41.1 ; Major depressive disorder, recurrent episode, moderate F33.1 ; Essential hypertension I10 ; History of CVA with residual deficit I69.30 ; DM (diabetes mellitus) with complications E11.8 ; Gastroesophageal reflux disease, esophagitis presence not specified K21.9 ; Hyperlipidemia, unspecified hyperlipidemia type E78.5 ; Other chronic pain G89.29 and Bacterial conjunctivitis of left eye H10.9 [place] [id number] [place] [address] [id number]- [phone] Sep, Chronic pain syndrome G89.4 and DM (diabetes mellitus) with complications E11.[address] [phone] 05 Sep, 2015 Irregular heart rhythm I49.9 ; Routine health maintenance Z00.00 ; Essential hypertension I10 ; History of CVA with residual deficit I69.30 ; Gastroesophageal reflux disease, esophagitis presence not specified K21.9 ; DM (diabetes mellitus) with complications E11.8 ; Hyperlipidemia, unspecified hyperlipidemia type E78.5 and Other complicated headache syndrome G44.[address] [id number] 14 Jun, [address] [address] Jun, [address] [address] Aug, [address] [address] Jun, IMMUNIZATIONS No Known Immunizations SOCIAL HISTORY Never Assessed REASON FOR VISIT Termination of Controlled Agreement PLAN OF CARE VITAL SIGNS MEDICATIONS Unknown Medications RESULTS No Results PROCEDURES No Known procedures INSTRUCTIONS MEDICATIONS ADMINISTERED No Known Medications MEDICAL (GENERAL) HISTORY Type Description Date Medical History diabetes mellitus Medical History hyperlipidemia Medical History hypertension Medical History Anxiety disorder Medical History Blood Clotting Disorder- Dr Galvan at [facility] Medical History Possible Anemia (currently under work up) - Dr Galvan [facility] Medical History irregular heart beat-sees dr. hassan Medical History history of pancreatitis Medical History gerd Medical History History of CVA with residual deficit Medical History Other complicated headache syndrome Medical History Stokes syndrome Surgical History tubal ligation Surgical History section Surgical History cholecystectomy Surgical History Toe Nail Removal x2 Hospitalization History Brain Stem Strokes x5. Has been hospitalized at then transfered to [place]. 2014 Hospitalization History Child Hospitalization History abd pain and shakiness - [facility] ED visit [facility] Hospitalization History [facility] ED for URI 04/16/17 Hospitalization History via [facility] [place] [facility] 08/16/17
--- OUTSIDE RECORDS SUMMARY | 2018-01-23 16:57 | XMS REPORT ---
Author Author GAYE SOTERO Organization [facility] Address [address] [place] [address] Care Team Providers Care Soil Tester Name Role Phone HUIZARSOTERO Cox Unavailable PROBLEMS Type Condition ICD9-CM Code IXE83-MN Code Onset Dates Condition Status SNOMED Code Problem Tobacco abuse Z72.0 Active 234938366 Problem Seasonal allergic rhinitis due to pollen J30.1 Active 55947851 Problem Tobacco abuse counseling Z71.6 Active 263647635 Problem Abnormal drug screen R89.2 Active 770904733 Problem Acute non intractable tension-type headache G44.209 Active 240803239 Problem retirement current use of insulin Z79.4 Active 813230904 Problem History of CVA with residual deficit I69.30 Active 298032853 Problem Chronic pain syndrome G89.4 Active 290742233 Problem Type 2 diabetes mellitus with hyperglycemia E11.65 Active 23360544 Problem Elevated liver enzymes R74.8 Active 764739421 Problem Generalized anxiety disorder F41.1 Active 88574003 Problem Vitamin D deficiency E55.9 Active 45909537 Problem Major depressive disorder, recurrent episode, moderate F33.1 Active 099052805 Problem Hyperlipidemia, unspecified hyperlipidemia type E78.5 Active 71396581 Problem Gastroesophageal reflux disease, esophagitis presence not specified K21.9 Active 586060780 Problem 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 Active 329868983 Problem Essential hypertension I10 Active 99221005 Problem DM (diabetes mellitus) with complications E11.8 Active 57348897 Problem Other chronic pain G89.29 Active 09139261 ALLERGIES No Information ENCOUNTERS Encounter Location Date Diagnosis [facility] [id number], [place] [address] Nov, Dysuria R30.0 and Flank pain R10.9 [facility] [id number] [address] Oct, [facility] [id number] [place] [address] 94825 -7203 Oct, [facility] [address] [address]58 Oct, Dysuria R30.0 and Acute cystitis with hematuria N30.01 [facility] [address] [address]- [address] Oct, [facility] [address] 95197- 7664 Oct, [facility] [id number] [place] [address] 06534- 7146 Oct, Controlled substance agreement broken Z91.14 ; Violation of controlled substance agreement Z91.14 ; Other chronic pain G89.29 and Generalized anxiety disorder F41.1 [place] [address] [address]13- 6540 Oct, [facility] [id number] [place] [address] 73093- 4049 Oct, [facility] [address] 39443- 0380 Sep, Abscess L02.91 [facility] [id number] [place] [address] 30817- 4975 Sep, [facility] [address] 71783- 7157 Sep, DM (diabetes mellitus) with complications E11.8 ; Generalized anxiety disorder F41.1 and Chronic pain syndrome G89.4 [place] [address] 29440- 7098 Sep, Generalized anxiety disorder F41.1 ; Chronic pain syndrome G89.4 ; Abnormal drug screen R89.2 and Other chest pain R07.89 [facility] [id number] [place] [address] 54832- 0169 Aug, Dysuria R30.0 [facility] [id number] [place] [address] 33759- 2460 Aug, Generalized anxiety disorder F41.1 ; Chronic pain syndrome G89.4 and Dysuria R30.0 [facility] [id number] [place] [address] 21416- 3889 Aug, Acute cystitis with hematuria N30.01 and Candidal dermatitis B37.2 [facility] [id number] [place] [address] 50671- 3510 Aug, Dysuria R30.0 [facility] [id number] [place] [address] 74548- 8807 Aug, 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 [place] [id number] [place] [address] 85914- 8656 July, Generalized anxiety disorder F41.1 and Chronic pain syndrome G89.4 [facility] [id number] [place] [address] 90527- 0948 July, Abscess L02.91 [facility] [id number] [place] [address] 99725- 5190 July, [facility] [id number] [place] [address] 55043- 0972 July, [facility] [id number] [place] [address] 82381- 2222 15 May, 2018 Type 2 diabetes mellitus with hyperglycemia E11.65 ; 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 ; Elevated [...] G89.4 and Vaginal candidiasis B37.3 [place] [address] 10196- 2418 Jun, Generalized anxiety disorder F41.1 and Other chronic pain G89.29 [place] [address] 64747- 1246 Jun, [place] [address] 99159- 1337 Jun, [place] [address] 38291- 4950 Jun, Abnormal levels of other serum enzymes R74.8 [place] [address] 61031- 9337 Jun, Abnormal levels of other serum enzymes R74.8 [place] [address] 78414- 7134 Jun, Elevated liver enzymes R74.8 [place] [address] 36839- 9569 Jun, Elevated liver enzymes R74.8 [place] [address] 87459- 9222 May, Right upper quadrant pain R10.11 ; Cervicalgia M54.2 and High risk medication use Z79.899 [place] [address] 64810- 1045 May, Generalized anxiety disorder F41.1 and Other chronic pain G89.29 [facility] [id number] [place] [address] 59038- 0140 May, Canker sores oral K12.0 [facility] [id number] [place] [address] 49861- 7919 May, Generalized anxiety disorder F41.1 and Other chronic pain G89.29 [facility] [id number] [place] [address] 70096- 5555 May, [facility] [id number] [place] [address] 25313- 7967 Apr, [facility] [id number] [place] [address] 04016 -7502 Apr, Acute cystitis with hematuria N30.01 and Dysuria R30.0 [place] [id number] [place] [address] 91898- 8701 Apr, [facility] [id number] [place] [address] 29018- 4922 Apr, [facility] [id number] [place] [address] 97754- 6248 Apr, DM (diabetes mellitus) with complications E11.8 [place] [id number] [place] [address] 70890- 8735 Apr, DM (diabetes mellitus) with complications E11.8 [facility] [id number] [place] [address] 63565- 3889 Apr, [facility] [id number] [place] [address] 56840- 8145 Apr, [facility] [id number] [place] [address] 59444- 6548 Apr, Other chronic pain G89.29 ; Generalized anxiety disorder F41.1 ; Cervicalgia M54.2 and Controlled substance agreement signed Z79.899 [facility] [id number] [place] [address] 77059 -1926 Mar, Abdominal pain R10.9 and Viral gastroenteritis A08.4 [place] [id number] [place] [address] 67190- 8782 Mar, [place] [id number] [place] [address] 08424- 6758 Mar, [place] [address] 29993- 0349 Mar, DM (diabetes mellitus) with complications E11.8 [...] K21.9 and 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 [place] [id number] [place] [address] 28186- 3218 Mar, [place] [id number] [place] [address] 13587- 8603 Mar, DM (diabetes mellitus) with complications E11.8 ; Abnormal lung sounds R09.89 ; Bronchitis J40 and Hyperlipidemia, unspecified hyperlipidemia type E78.5 [facility] [id number] [place] [address] 71628 -3918 Mar, URI, acute J06.9 [place] [id number] [place] [address] 96234- 8276 Mar, [address] 41698- 4112 Mar, DM (diabetes mellitus) with complications E11.8 [place] [id number] [place] [address] 20118- 3539 Mar, Other chronic pain G89.29 and Generalized anxiety disorder F41.1 [facility] [id number] [place] [address] 82901- 1302 Feb, [facility] [address] 45905- 9412 Feb, Mass of left lung R91.8 and Cervicalgia M54.2 [facility] [address] 58018- 6585 Feb, [facility] [address] 60909- 1923 Feb, [facility] [place] [address] 73101 -4114 11 Feb, 2017 Cough R05 and Bronchitis J40 [facility] [place] [address] 09863 -6248 07 Feb, 2017 Acute nasopharyngitis J00 and Bronchitis J40 [place] [address] 36960- 1889 06 Feb, 2017 Other chronic pain G89.29 and Generalized anxiety disorder F41.1 [place] [address] 62157- 8585 Jan, Encounter for immunization Z23 [facility] [place] [id number] [place] [address] 51373 -6691 Jan, [facility] [address] 02344 -6241 18 Jan, 2017 [facility] [address] 46125- 0768 16 Jan, 2017 Canker sores oral K12.0 [place] [id number] [place] [address] 01565- 0208 14 Jan, 2017 [facility] [id number] [place] [address] 04994- 2012 07 Jan, 2017 Other chronic pain G89.29 and Generalized anxiety disorder F41.1 [facility] [address] 00671- 6323 Jan, Cough R05 and Bronchitis J40 [facility] [address] 50886 -6993 Jan, Bronchitis J40 [facility] [address] 18779- 5246 Dec, Vitamin D deficiency E55.9 [place] [address] 47893- 7575 Dec, DM (diabetes mellitus) with complications E11.[address] 17443- 2792 Dec, DM (diabetes mellitus) with complications E11.8 and Vitamin D deficiency E55.[address] 49869- 9541 Dec, DM (diabetes mellitus) with complications E11.8 ; Essential hypertension I10 ; Hyperlipidemia, unspecified hyperlipidemia type E78.5 ; Vitamin D deficiency E55.9 ; Gastroesophageal reflux disease, esophagitis presence not specified K21.9 ; 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 ; Other chronic pain G89.29 ; Encounter for immunization Z23 and Generalized anxiety disorder F41.[address] 79730- 9949 12 Nov, 2016 History of CVA with residual deficit I69.30 [place] [address] 39155- 9411 11 Nov, 2016 DM (diabetes mellitus) with complications E11.[address] 73837- 3169 06 Nov, 2016 Left otitis media with effusion H65.92 ; Bronchitis J40 and Canker sores oral K12.[address] 59319- 8893 Oct, [place] [id number] [place] [address] 30574- 6198 04 Oct, 2016 DM (diabetes mellitus) with complications E11.8 [place] [id number] [place] [address] 37895- 1164 02 Oct, 2016 [place] [id number] [place] [address] 93937- 7878 17 Sep, 2016 DM (diabetes mellitus) with complications E11.8 [place] [address] 54004- 9557 11 Sep, 2016 DM (diabetes mellitus) with complications E11.8 ; Essential hypertension I10 ; Gastroesophageal reflux disease, esophagitis presence not specified K21.9 ; Hyperlipidemia, unspecified hyperlipidemia type E78.5 ; Tobacco abuse Z72.0 ; Vitamin D deficiency E55.9 ; History of CVA with residual deficit I69.30 and Seasonal allergic rhinitis due to pollen J30.1 [place] [address] 00368- 6427 Sep, [place] [address] 85598- 1774 30 Aug, 2016 [facility] [id number] [place] [address] 95263 -1573 Aug, Dysuria R30.0 ; Acute cystitis with hematuria N30.01 and Middle ear effusion, right H65.91 [place] [id number] [place] [address] 09998- 6248 Aug, Other complicated headache syndrome G44.59 [place] [id number] [place] [address] 38251- 6851 19 Aug, 2016 DM (diabetes mellitus) with complications E11.8 [place] [id number] [place] [address] 43974- 0464 14 Aug, 2016 Dysuria R30.0 [place] [id number] [place] [address] 16960- 6494 12 Aug, 2016 Dysuria R30.0 [facility] [address], [place] [address]- 3087 Aug, [facility] [id number] [place] [address] 02603- 1658 July, [facility] [id number] [place] [address] 36537- 5705 July, [facility] [id number] [place] [address] 82693- 0056 July, DM (diabetes mellitus) with complications E11.8 [place] [id number] [place] [address] 17195- 7139 July, Other complicated headache syndrome G44.59 [place] [id number] [place] [address] 50955- 4873 July, [facility] [id number] [place] [address] 02991 -4047 July, Dysuria R30.0 and Acute cystitis with hematuria N30.01 [place] [id number] [place] [address] 11830- 8102 July, [place] [id number] [place] [address] 28273- 8086 July, Other complicated headache syndrome G44.59 [facility] [address] [place] [address] 55658 -8782 Jun, Exposure to strep throat Z20.818 and Acute upper respiratory infection, unspecified J06.9 [place] [address] [place] [address] 00643- 1182 Jun, [place] [id number] [place] [address] 07094- 0375 Jun, DM (diabetes mellitus) with complications E11.8 and Gastroesophageal reflux disease, esophagitis presence not specified K21.9 [place] [id number] [place] [address] 62591- 2375 Jun, Dizziness R42 [facility] [address] [place] [address] 90703- 5636 Jun, [facility] [id number] [place] [address] 96421 -5152 Jun, [facility] [id number] [place] [address] 29288- 9484 Jun, [facility] [id number] [place] [address] 30363 -8108 May, Seasonal allergic rhinitis, unspecified allergic rhinitis trigger J30.2 [facility] [address] 96017- 4715 May, [facility] [id number] [place] [address] 67793- 2090 May, DM (diabetes mellitus) with complications E11.8 [...] rhinitis due to pollen J30.1 [facility] [id number] [place] [address] 90270- 2061 May, Gastroesophageal reflux disease, esophagitis presence not specified K21.9 [facility] [id number] [place] [address] 01196- 1328 May, [facility] [id number] [place] [address] 57499- 0973 Apr, [facility] [id number] [place] [address] 12131- 2217 Apr, [facility] [id number] [place] [address] 53960- 8691 Mar, [facility] [address], [place] [address]- 6167 Mar, [facility] [id number] [place] [address] 79949- 5464 Mar, [facility] [id number] [place] [address] 79483- 7750 Mar, [facility] [id number] [place] [address] 75741- 1883 Feb, [facility] [id number] [place] [address] 70948- 8627 Feb, [facility] [id number] [place] [address] 35360- 3030 Feb, [facility] [id number] [place] [address] 29261- 7259 Feb, Major depressive disorder, recurrent episode, moderate F33.1 ; Generalized anxiety disorder F41.1 ; Essential hypertension I10 ; DM ( diabetes mellitus) with complications E11.8 ; Hyperlipidemia, unspecified hyperlipidemia type E78.5 ; 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 [id number] [place] [address] 14550 -0535 Feb, Other viral agents as the cause of diseases classified elsewhere B97.89 and Acute upper respiratory infection, unspecified J06.9 [facility] [address] [place] [address] 60749- 9978 Jan, [facility] [address] [place] [address] 69486- 2060 Jan, [facility] [id number] [place] [address] 98520 -6412 Jan, Acute bronchitis, unspecified organism J20.9 [facility] [address] [place] [address] 70418- 9335 Jan, [facility] [id number] [place] [address] 40017- 0114 Jan, History of CVA with residual deficit I69.30 [place] [id number] [place] [address] 41445- 1668 Jan, [place] [id number] [place] [address] 89487- 5341 Jan, Acute bronchitis, unspecified organism J20.9 [place] [id number] [place] [address] 19478- 3692 Jan, [place] [id number] [place] [address] 66000- 0392 Dec, History of CVA with residual deficit I69.30 [place] [id number] [place] [address] 46472- 4630 Dec, [place] [id number] [place] [address] 12729- 9876 Dec, Other chronic pain G89.29 ; DM (diabetes mellitus) with complications E11.8 and History of CVA with residual deficit I69.30 [place] [id number] [place] [address] 40929- 8765 Nov, Major depressive disorder, recurrent episode, moderate F33.1 ; Irregular heart rhythm I49.9 ; Essential hypertension I10 ; History of CVA with residual deficit I69.30 ; DM (diabetes mellitus) with complications E11.8 ; Gastroesophageal reflux disease, esophagitis presence not specified K21.9 ; Hyperlipidemia, unspecified hyperlipidemia type E78.5 ; 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 ; Other chronic pain G89.29 and Generalized anxiety disorder F41.1 [place] [address] [place] [address] 47385- 7768 Oct, Generalized anxiety disorder F41.1 ; Major depressive disorder, recurrent episode, moderate F33.1 ; Essential hypertension I10 ; History of CVA with residual deficit I69.30 ; DM (diabetes mellitus) with complications E11.8 ; Gastroesophageal reflux disease, esophagitis presence not specified K21.9 ; Hyperlipidemia, unspecified hyperlipidemia type E78.5 ; Other chronic pain G89.29 and Bacterial conjunctivitis of left eye H10.9 [place] [id number] [place] [address] 17676- 7883 Sep, Chronic pain syndrome G89.4 and DM (diabetes mellitus) with complications E11.[address] 95325- 8465 05 Sep, 2015 Irregular heart rhythm I49.9 ; Routine health maintenance Z00.00 ; Essential hypertension I10 ; History of CVA with residual deficit I69.30 ; Gastroesophageal reflux disease, esophagitis presence not specified K21.9 ; DM (diabetes mellitus) with complications E11.8 ; Hyperlipidemia, unspecified hyperlipidemia type E78.5 and Other complicated headache syndrome G44.[address] 20360- 3231 14 Jun, [address] 69049- 0029 Jun, [address] 09366- 3880 Aug, [address] 15028- 0741 Jun, IMMUNIZATIONS No Known Immunizations SOCIAL HISTORY Never Assessed REASON FOR VISIT Controlled refill request PLAN OF CARE VITAL SIGNS MEDICATIONS Unknown Medications RESULTS No Results PROCEDURES No Known procedures INSTRUCTIONS MEDICATIONS ADMINISTERED No Known Medications MEDICAL (GENERAL) HISTORY Type Description Date Medical History diabetes mellitus Medical History hyperlipidemia Medical History hypertension Medical History Anxiety disorder Medical History Blood Clotting Disorder- Dr Galvan at [facility] Medical History Possible Anemia (currently under work up) - Dr Galvan [facility] Medical History irregular heart beat-sees [...] Has been hospitalized at then transfered to [place]. 2014 Hospitalization History Child Hospitalization History abd pain and shakiness - [facility] ED visit [facility], [place] Hospitalization History [facility] ED for URI 04/16/17 Hospitalization History via [facility] er 08/16/17
--- OUTSIDE RECORDS SUMMARY | 2018-01-23 16:57 | XMS REPORT ---
Author Author GAYE SOTERO Organization [facility] [place] Address [address] [place] [address] Care Team Providers Care Gear Tester Name Role Phone HUIZARSOTERO Cox Unavailable PROBLEMS Type Condition ICD9-CM Code NDY94-YJ Code Onset Dates Condition Status SNOMED Code Problem Tobacco abuse Z72.0 Active 192437693 Problem Seasonal allergic rhinitis due to pollen J30.1 Active 86766838 Problem Tobacco abuse counseling Z71.6 Active 929122522 Problem Abnormal drug screen R89.2 Active 190659698 Problem Acute non intractable tension-type headache G44.209 Active 046816183 Problem assisted current use of insulin Z79.4 Active 318440600 Problem History of CVA with residual deficit I69.30 Active 556015948 Problem Chronic pain syndrome G89.4 Active 388720427 Problem Type 2 diabetes mellitus with hyperglycemia E11.65 Active 14848324 Problem Elevated liver enzymes R74.8 Active 689704475 Problem Generalized anxiety disorder F41.1 Active 99145931 Problem Vitamin D deficiency E55.9 Active 47355936 Problem Major depressive disorder, recurrent episode, moderate F33.1 Active 117177636 Problem Hyperlipidemia, unspecified hyperlipidemia type E78.5 Active 80821860 Problem Gastroesophageal reflux disease, esophagitis presence not specified K21.9 Active 805877326 Problem 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 Active 292847892 Problem Essential hypertension I10 Active 53995033 Problem DM (diabetes mellitus) with complications E11.8 Active 42468342 Problem Other chronic pain G89.29 Active 33868921 ALLERGIES No Information ENCOUNTERS Encounter Location Date Diagnosis [facility] [place] [id number] [address] Nov, Dysuria R30.0 and Flank pain R10.9 [facility] [place] [id number] [address] 16 Oct, 2017 [facility] [id number] [place] [address] 54532 -2606 Oct, [facility] [address] [address]51 Oct, Dysuria R30.0 and Acute cystitis with hematuria N30.01 [facility] [place] [address] [address]- 5908 Oct, [facility] [place] [address] 96014- 4508 Oct, [facility] [place] [id number] [place] [address] 45392- 8827 Oct, Controlled substance agreement broken Z91.14 ; Violation of controlled substance agreement Z91.14 ; Other chronic pain G89.29 and Generalized anxiety disorder F41.1 [place] [address] 65283- 6423 Oct, [facility] [place] [id number] [place] [address] 50395- 6783 Oct, [facility] [place] [address] 87774- 2220 Sep, Abscess L02.91 [facility] [place] [id number] [place] [address] 19686- 8058 Sep, [facility] [place] [address] 19821- 7029 Sep, DM (diabetes mellitus) with complications E11.8 ; Generalized anxiety disorder F41.1 and Chronic pain syndrome G89.4 [place] [address] 17678- 1862 Sep, Generalized anxiety disorder F41.1 ; Chronic pain syndrome G89.4 ; Abnormal drug screen R89.2 and Other chest pain R07.89 [facility] [place] [id number] [place] [address] 55760- 4245 Aug, Dysuria R30.0 [facility] [place] [id number] [place] [address] 57153- 7013 Aug, Generalized anxiety disorder F41.1 ; Chronic pain syndrome G89.4 and Dysuria R30.0 [facility] [place] [id number] [place] [address] 52852- 9913 Aug, Acute cystitis with hematuria N30.01 and Candidal dermatitis B37.2 [facility] [place] [id number] [place] [address] 93371- 5100 Aug, Dysuria R30.0 [facility] [place] [id number] [place] [address] 58192- 1485 Aug, [facility] [id number] [place] [address] 63945 -9121 Aug, Dysuria R30.0 [facility] [place] [id number] [place] [address] 98160- 5864 Aug, [facility] [place] [id number] [place] [address] 56841- 9191 July, Cervicalgia M54.2 ; Acute non intractable tension-type headache G44.209 ; Type 2 diabetes mellitus with hyperglycemia E11.65 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 [place] [id number] [place] [address] 97834- 0441 July, Generalized anxiety disorder F41.1 and Chronic pain syndrome G89.4 [facility] [place] [id number] [place] [address] 65828- 0648 July, Abscess L02.91 [facility] [place] [id number] [place] [address] 78561- 3661 July, [facility] [place] [id number] [place] [address] 90102- 1609 July, [facility] [place] [id number] [place] [address] 64313- 0642 15 May, 2018 Type 2 diabetes mellitus with hyperglycemia E11.65 ; 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.4 ; Elevated [...] pain syndrome G89.4 and Vaginal candidiasis B37.3 [place] [address] 31408- 3969 Jun, Generalized anxiety disorder F41.1 and Other chronic pain G89.29 [place] [address] 51102- 7122 Jun, [place] [address] 02070- 8152 Jun, [place] [address] 71349- 5748 Jun, Abnormal levels of other serum enzymes R74.8 [place] [address] 13977- 1076 Jun, Abnormal levels of other serum enzymes R74.8 [place] [address] 72591- 9581 Jun, Elevated liver enzymes R74.8 [place] [address] 86608- 4038 Jun, Elevated liver enzymes R74.8 [place] [address] 90875- 3504 May, Right upper quadrant pain R10.11 ; Cervicalgia M54.2 and High risk medication use Z79.899 [place] [address] 45337- 0335 May, Generalized anxiety disorder F41.1 and Other chronic pain G89.29 [facility] [place] [id number] [place] [address] 60889- 6290 May, Canker sores oral K12.0 [facility] [place] [id number] [place] [address] 45172- 7134 May, Generalized anxiety disorder F41.1 and Other chronic pain G89.29 [facility] [place] [id number] [place] [address] 74175- 7421 May, [facility] [place] [id number] [place] [address] 45247- 4716 Apr, [facility] [id number] [place] [address] 45342 -8922 Apr, Acute cystitis with hematuria N30.01 and Dysuria R30.0 [place] [id number] [place] [address] 14279- 2317 Apr, [facility] [place] [id number] [place] [address] 86707- 1208 Apr, [facility] [place] [id number] [place] [address] 89166- 1244 Apr, DM (diabetes mellitus) with complications E11.8 [place] [id number] [place] [address] 13315- 6283 Apr, DM (diabetes mellitus) with complications E11.8 [facility] [place] [id number] [place] [address] 69322- 8779 Apr, [facility] [place] [id number] [place] [address] 99645- 3415 Apr, [facility] [place] [id number] [place] [address] 15432- 2098 Apr, Other chronic pain G89.29 ; Generalized anxiety disorder F41.1 ; Cervicalgia M54.2 and Controlled substance agreement signed Z79.899 [facility] [id number] [place] [address] 99192 -8499 Mar, Abdominal pain R10.9 and Viral gastroenteritis A08.4 [place] [id number] [place] [address] 23495- 4249 Mar, [place] [id number] [place] [address] 43812- 5994 Mar, [place] [address] 82319- 4932 Mar, DM (diabetes mellitus) with complications E11.8 ; Type 2 diabetes mellitus with hyperglycemia E11.65 ; 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8 ; Abnormal lung sounds R09.89 ; Bronchitis J40 and Hyperlipidemia, unspecified hyperlipidemia type E78.5 [facility] [id number] [place] [address] 45018 -7229 Mar, URI, acute J06.9 [place] [id number] [place] [address] 95442- 2891 Mar, [address] 39657- 3058 Mar, DM (diabetes mellitus) with complications E11.8 [place] [id number] [place] [address] 03044- 7214 Mar, Other chronic pain G89.29 and Generalized anxiety disorder F41.1 [facility] [place] [id number] [place] [address] 83763- 0579 Feb, [facility] [place] [address] 01032- 7596 Feb, Mass of left lung R91.8 and Cervicalgia M54.2 [facility] [place] [address] 23008- 1426 Feb, [facility] [place] [address] 97455- 0342 Feb, [facility] [place] [id number] 88130 -9503 11 Feb, 2017 Cough R05 and Bronchitis J40 [facility] [place] [address] 71700 -2607 07 Feb, 2017 Acute nasopharyngitis J00 and Bronchitis J40 [place] [address] 73830- 4265 06 Feb, 2017 Other chronic pain G89.29 and Generalized anxiety disorder F41.1 [place] [address] 78640- 0947 Jan, Encounter for immunization Z23 [facility] [place] [id number] [place] [address] 76577 -3166 Jan, [facility] [address] 35887 -1716 18 Jan, 2017 [facility] [place] [address] 55531- 7305 16 Jan, 2017 Canker sores oral K12.0 [place] [id number] [place] [address] 60760- 7166 14 Jan, 2017 [facility] [place] [id number] [place] [address] 73511- 0396 07 Jan, 2017 Other chronic pain G89.29 and Generalized anxiety disorder F41.1 [facility] [place] [address] 36703- 2401 Jan, Cough R05 and Bronchitis J40 [facility] [address] 61877 -3234 Jan, Bronchitis J40 [facility] [place] [address] 09278- 6856 Dec, Vitamin D deficiency E55.9 [place] [address] 92558- 1890 Dec, DM (diabetes mellitus) with complications E11.[address] 70175- 6403 Dec, DM (diabetes mellitus) with complications E11.8 and Vitamin D deficiency E55.[address] 16516- 5431 Dec, DM (diabetes mellitus) with complications E11.8 ; Essential hypertension I10 ; Hyperlipidemia, unspecified hyperlipidemia type E78.5 ; Vitamin D deficiency E55.9 ; Gastroesophageal reflux disease, esophagitis presence not specified K21.9 ; 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8 [place] [id number] [place] [address] 19026- 3577 02 Oct, 2016 [place] [id number] [place] [address] 15928- 8436 17 Sep, 2016 DM (diabetes mellitus) with complications E11.8 [place] [address] 78488- 4336 11 Sep, 2016 DM (diabetes mellitus) with complications E11.8 ; Essential hypertension I10 ; Gastroesophageal reflux disease, esophagitis presence not specified K21.9 ; Hyperlipidemia, unspecified hyperlipidemia type E78.5 ; Tobacco abuse Z72.0 ; Vitamin D deficiency E55.9 ; History of CVA with residual deficit I69.30 and Seasonal allergic rhinitis due to pollen J30.1 [place] [address] 35622- 1046 Sep, [place] [address] 61603- 4727 30 Aug, 2016 [facility] [id number] [place] [address] 95747 -4131 Aug, Dysuria R30.0 ; Acute cystitis with hematuria N30.01 and Middle ear effusion, right H65.91 [place] [id number] [place] [address] 57607- 8429 Aug, Other complicated headache syndrome G44.59 [place] [id number] [place] [address] 38660- 9561 19 Aug, 2016 DM (diabetes mellitus) with complications E11.8 [place] [id number] [place] [address] 65286- 7662 14 Aug, 2016 Dysuria R30.0 [place] [id number] [place] [address] 33213- 2607 12 Aug, 2016 Dysuria R30.0 [facility] [place] [address] [address]- 6925 Aug, [facility] [place] [id number] [place] [address] 58939- 3629 July, [facility] [place] [id number] [place] [address] 15052- 4993 July, [facility] [place] [id number] [place] [address] 22025- 7317 July, DM (diabetes mellitus) with complications E11.8 [place] [id number] [place] [address] 80849- 1880 July, Other complicated headache syndrome G44.59 [place] [id number] [place] [address] 56078- 7982 July, [facility] [id number] [place] [address] 89745 -4141 July, Dysuria R30.0 and Acute cystitis with hematuria N30.01 [place] [id number] [place] [address] 96672- 8943 July, [place] [id number] [place] [address] 96316- 0992 July, Other complicated headache syndrome G44.59 [facility] [id number] [place] [address] 46582 -5386 Jun, Exposure to strep throat Z20.818 and Acute upper respiratory infection, unspecified J06.9 [place] [address] [place] [address] 71727- 4319 Jun, [place] [id number] [place] [address] 52984- 2608 Jun, DM (diabetes mellitus) with complications E11.8 and Gastroesophageal reflux disease, esophagitis presence not specified K21.9 [place] [id number] [place] [address] 58311- 2059 Jun, [facility] [place] [address] [address]- 3466 Jun, Dizziness R42 [facility] [id number] [place] [address] 17527 -4103 Jun, [facility] [place] [id number] [place] [address] 45515- 4220 Jun, [facility] [id number] [place] [address] 81579 -1999 May, Seasonal allergic rhinitis, unspecified allergic rhinitis trigger J30.2 [facility] [place] [address] 32716- 3644 May, [facility] [place] [id number] [place] [address] 07867- 1381 May, DM (diabetes mellitus) with complications E11.8 [...] Seasonal allergic rhinitis due to pollen J30.1 [facility] [place] [id number] [place] [address] 41395- 0597 May, Gastroesophageal reflux disease, esophagitis presence not specified K21.9 [facility] [place] [id number] [place] [address] 31962- 2463 May, [facility] [place] [id number] [place] [address] 50368- 6440 Apr, [facility] [place] [id number] [place] [address] 69335- 1380 Apr, [facility] [place] [id number] [place] [address] 62480- 8721 Mar, [facility] [place] [address] [address]- 3417 Mar, [facility] [place] [id number] [place] [address] 93101- 9733 Mar, [facility] [place] [id number] [place] [address] 79440- 4587 Mar, [facility] [place] [id number] [place] [address] 91756- 3476 Feb, [facility] [place] [id number] [place] [address] 16449- 3995 Feb, [facility] [place] [id number] [place] [address] 73756- 4575 Feb, [facility] [place] [id number] [place] [address] 95142- 1685 Feb, Major depressive disorder, recurrent episode, moderate F33.1 ; Generalized anxiety disorder F41.1 ; Essential hypertension I10 ; DM ( diabetes mellitus) with complications E11.8 ; Hyperlipidemia, unspecified hyperlipidemia type E78.5 ; 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 and Gastroesophageal reflux disease, esophagitis presence not specified K21.9 [facility] [id number] [place] [address] 16320 -3045 Feb, Other viral agents as the cause of diseases classified elsewhere B97.89 and Acute upper respiratory infection, unspecified J06.9 [facility] [place] [id number] [place] [address] 42456- 5654 Jan, [facility] [place] [id number] [place] [address] 08129- 7313 Jan, [facility] [id number] [place] [address] 61852 -8903 Jan, Acute bronchitis, unspecified organism J20.9 [facility] [place] [id number] [place] [address] 38123- 0589 Jan, [facility] [place] [id number] [place] [address] 73014- 3483 Jan, History of CVA with residual deficit I69.30 [place] [id number] [place] [address] 42581- 6700 Jan, [place] [id number] [place] [address] 21472- 0329 Jan, Acute bronchitis, unspecified organism J20.9 [place] [id number] [place] [address] 00097- 9090 Jan, [place] [id number] [place] [address] 85624- 3604 Dec, History of CVA with residual deficit I69.30 [place] [id number] [place] [address] 67129- 9743 Dec, [place] [id number] [place] [address] 26676- 5434 Dec, Other chronic pain G89.29 ; DM (diabetes mellitus) with complications E11.8 and History of CVA with residual deficit I69.30 [place] [id number] [place] [address] 47633- 5402 Nov, Major depressive disorder, recurrent episode, moderate F33.1 ; Irregular heart rhythm I49.9 ; Essential hypertension I10 ; History of CVA with residual deficit I69.30 ; DM (diabetes mellitus) with complications E11.8 ; Gastroesophageal reflux disease, esophagitis presence not specified K21.9 ; Hyperlipidemia, unspecified hyperlipidemia type E78.5 ; 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 ; Other chronic pain G89.29 and Generalized anxiety disorder F41.1 [place] [address] [place] [address] 04646- 9342 Oct, Generalized anxiety disorder F41.1 ; Major depressive disorder, recurrent episode, moderate F33.1 ; Essential hypertension I10 ; History of CVA with residual deficit I69.30 ; DM (diabetes mellitus) with complications E11.8 ; Gastroesophageal reflux disease, esophagitis presence not specified K21.9 ; Hyperlipidemia, unspecified hyperlipidemia type E78.5 ; Other chronic pain G89.29 and Bacterial conjunctivitis of left eye H10.9 [place] [id number] [place] [phone] Sep, Chronic pain syndrome G89.4 and DM (diabetes mellitus) with complications E11.[address] [address] 05 Sep, 2015 Irregular heart rhythm I49.9 ; Routine health maintenance Z00.00 ; Essential hypertension I10 ; History of CVA with residual deficit I69.30 ; Gastroesophageal reflux disease, esophagitis presence not specified K21.9 ; DM (diabetes mellitus) with complications E11.8 ; Hyperlipidemia, unspecified hyperlipidemia type E78.5 and Other complicated headache syndrome G44.[address] [address] 14 Jun, [address] [address] Jun, [address] [address] Aug, [address] [address] Jun, IMMUNIZATIONS No Known Immunizations SOCIAL HISTORY Never Assessed REASON FOR VISIT Refill request PLAN OF CARE VITAL SIGNS MEDICATIONS Unknown Medications RESULTS No Results PROCEDURES No Known procedures INSTRUCTIONS MEDICATIONS ADMINISTERED No Known Medications MEDICAL (GENERAL) HISTORY Type Description Date Medical History diabetes mellitus Medical History hyperlipidemia Medical History hypertension Medical History Anxiety disorder Medical History Blood Clotting Disorder- Dr Galvan at [facility] Medical History Possible Anemia (currently under work up) - Dr Galvan [facility] Medical History irregular heart beat-sees dr. hassan Medical History history of pancreatitis Medical History gerd Medical History History of CVA with residual deficit Medical History Other complicated headache syndrome Medical History Stokes syndrome Surgical History tubal ligation Surgical History section Surgical History cholecystectomy Surgical History Toe Nail Removal x2 Hospitalization History Brain Stem Strokes x5. Has been hospitalized at then transfered to [place]. 2014 Hospitalization History Child Hospitalization History abd pain and shakiness - [facility] ED visit [facility] Hospitalization History [facility] ED for URI 04/16/17 Hospitalization History via [facility] 08/16/17
--- OUTSIDE RECORDS SUMMARY | 2018-01-23 16:58 | XMS REPORT ---
Author Author MAYCOL COPPOLA Organization [facility] Address [address] [place] [address] Care Team Providers Care Master Lay Out Specialist Name Role Phone MAYCOL COPPOLA Unavailable PROBLEMS Type Condition ICD9-CM Code [id number] Code Onset Dates Condition Status SNOMED Code Problem Tobacco abuse Z72.0 Active 235837993 Problem Seasonal allergic rhinitis due to pollen J30.1 Active 01866237 Problem Tobacco abuse counseling Z71.6 Active 286650902 Problem Abnormal drug screen R89.2 Active 016316353 Problem Acute non intractable tension-type headache G44.209 Active 145742703 Problem assisted current use of insulin Z79.4 Active 779705207 Problem History of CVA with residual deficit I69.30 Active 829829181 Problem Chronic pain syndrome G89.4 Active 739728141 Problem Type 2 diabetes mellitus with hyperglycemia E11.65 Active 52164673 Problem Elevated liver enzymes R74.8 Active 032556010 Problem Generalized anxiety disorder F41.1 Active 13666867 Problem Vitamin D deficiency E55.9 Active 80232217 Problem Major depressive disorder, recurrent episode, moderate F33.1 Active 268048170 Problem Hyperlipidemia, unspecified hyperlipidemia type E78.5 Active 02689481 Problem Gastroesophageal reflux disease, esophagitis presence not specified K21.9 Active 722142543 Problem 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 Active 511107780 Problem Essential hypertension I10 Active 96948606 Problem DM (diabetes mellitus) with complications E11.8 Active 06972591 Problem Other chronic pain G89.29 Active 00096878 ALLERGIES Substance Reaction Event Type Date Status Penicillin V Potassium Unknown Drug Allergy Sep, Active Erythromycin Base Unknown Drug Allergy Sep, Active Bactrim DS rash and trouble breathing Drug Allergy Sep, Active Codeine Unknown Drug Allergy Sep, Active ENCOUNTERS Encounter Location Date Diagnosis [facility] [address] [facility] [id number] [address] Nov, Dysuria R30.0 and Flank pain R10.9 [facility] [id number] [place] [address] 91497- 6575 16 Oct, 2017 [facility] [id number] [place] [address] 18037 -2976 Oct, [facility] [id number] [place] [address] 59527 -4764 Oct, Dysuria R30.0 and Acute cystitis with hematuria N30.01 [facility] [id number] [place] [address] 62835- 5411 Oct, [facility] [id number] [place] [address] 36421- 7684 Oct, [facility] [id number] [place] [address] 80922- 8964 Oct, Controlled substance agreement broken Z91.14 ; Violation of controlled substance agreement Z91.14 ; Other chronic pain G89.29 and Generalized anxiety disorder F41.1 [facility] [id number] [place] [address] 57647- 9488 Oct, [facility] [id number] [place] [address] 49631- 2215 Oct, [facility] [id number] [place] [address] 24170- 4796 Sep, Abscess L02.91 [facility] [id number] [place] [address] 42400- 5047 Sep, [facility] [id number] [place] [address] 09625- 4198 Sep, DM (diabetes mellitus) with complications E11.8 ; Generalized anxiety disorder F41.1 and Chronic pain syndrome G89.4 [facility] [id number] [place] [address] 81712- 5894 Sep, Generalized anxiety disorder F41.1 ; Chronic pain syndrome G89.4 ; Abnormal drug screen R89.2 and Other chest pain R07.89 [facility] [id number] [place] [address] 71497- 4040 Aug, Dysuria R30.0 [facility] [address] 32644- 0994 Aug, Generalized anxiety disorder F41.1 ; Chronic pain syndrome G89.4 and Dysuria R30.0 [facility] [address] 36807- 0235 Aug, Acute cystitis with hematuria N30.01 and Candidal dermatitis B37.2 [facility] [address] 71086- 3656 Aug, Dysuria R30.0 [facility] [address] 20691- 3985 Aug, [facility] [address] 81205 -4278 Aug, Dysuria R30.0 [facility] [address] 16167- 1562 Aug, [facility] [id number] [place] [address] 93580- 7963 July, Cervicalgia M54.2 ; Acute non intractable tension-type headache G44.209 ; Type 2 diabetes mellitus with hyperglycemia E11.65 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 [facility] [id number] [place] [address] 33189- 3219 July, Generalized anxiety disorder F41.1 and Chronic pain syndrome G89.4 [facility] [address] 33746- 0748 July, Abscess L02.91 [facility] [address] 29634- 6988 July, [facility] [address] [place] [address] 0259 July, [place] [id number] [place] [address] 03879- 6770 July, Type 2 diabetes mellitus with hyperglycemia [...] G89.4 and Vaginal candidiasis B37.3 [place] [address] 82128- 8855 Jun, Generalized anxiety disorder F41.1 and Other chronic pain G89.29 [place] [address] 69587- 7578 Jun, [place] [address] 49060- 1046 Jun, [place] [id number] [place] [address] 86863- 7702 Jun, Abnormal levels of other serum enzymes R74.8 [place] [id number] [place] [address] 33695- 7336 Jun, Abnormal levels of other serum enzymes R74.8 [place] [id number] [place] [address] 39568- 0888 Jun, Elevated liver enzymes R74.8 [place] [id number] [place] [address] 97748- 0624 Jun, Elevated liver enzymes R74.8 [place] [id number] [place] [address] 79397- 2840 May, Right upper quadrant pain R10.11 ; Cervicalgia M54.2 and High risk medication use Z79.899 [facility] [id number] [place] [address] 59921- 6407 May, Generalized anxiety disorder F41.1 and Other chronic pain G89.29 [facility] [id number] [place] [address] 24351- 4292 May, Canker sores oral K12.0 [facility] [address] 59875- 6644 May, Generalized anxiety disorder F41.1 and Other chronic pain G89.29 [facility] [address] 29739- 7763 May, [facility] [address] 89664- 4507 Apr, [facility] [address] 59703 -9461 Apr, Acute cystitis with hematuria N30.01 and Dysuria R30.0 [facility] [address] 15462- 7307 Apr, [facility] [id number] [place] [address] 65048- 8550 Apr, [facility] [id number] [place] [address] 73988- 5244 Apr, DM (diabetes mellitus) with complications E11.8 [facility] [id number] [place] [address] 97851- 7252 06 Apr, 2017 DM (diabetes mellitus) with complications E11.8 [facility] [id number] [place] [address] 16190- 2548 Apr, [facility] [id number] [place] [address] 97220- 4218 Apr, [facility] [address] 65782- 7252 Apr, Other chronic pain G89.29 ; Generalized anxiety disorder F41.1 ; Cervicalgia M54.2 and Controlled substance agreement signed Z79.899 [facility] [address] 64749 -6781 Mar, Abdominal pain R10.9 and Viral gastroenteritis A08.4 [place] [address] 30905- 5662 Mar, [place] [address] 19552- 0838 Mar, [place] [address] 63331- 5998 Mar, DM (diabetes mellitus) with complications E11.8 [...] K21.9 and 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 [place] [address] 17763- 2467 Mar, [place] [address] 32431- 4431 Mar, DM (diabetes mellitus) with complications E11.8 ; Abnormal lung sounds R09.89 ; Bronchitis J40 and Hyperlipidemia, unspecified hyperlipidemia type E78.5 [facility] [address] 72424 -8763 Mar, URI, acute J06.9 [place] [address] 89540- 7066 Mar, [place] [address] 19309- 0803 Mar, DM (diabetes mellitus) with complications E11.8 [place] [address] 25196- 1153 Mar, Other chronic pain G89.29 and Generalized anxiety disorder F41.1 [place] [address] 25037- 6873 Feb, [place] [address] 90596- 1613 Feb, Mass of left lung R91.8 and Cervicalgia M54.2 [place] [address] 19470- 0851 Feb, [place] [address] 18782- 6048 Feb, [facility] [address] 25902 -3134 Feb, Cough R05 and Bronchitis J40 [facility] [address] 23516 -0248 07 Feb, 2017 Acute nasopharyngitis J00 and Bronchitis J40 [place] [address] 98960- 1442 06 Feb, 2017 Other chronic pain G89.29 and Generalized anxiety disorder F41.1 [place] [address] 05017- 3600 Jan, Encounter for immunization Z23 [facility] [address] 00217 -3684 Jan, [facility] [address] 66133 -0409 Jan, [place] [address] 72998- 3635 Jan, Canker sores oral K12.0 [place] [address] 49078- 0895 14 Jan, 2017 [place] [address] 98317- 6325 07 Jan, 2017 Other chronic pain G89.29 and Generalized anxiety disorder F41.1 [place] [address] 23695- 6657 06 Jan, 2017 Cough R05 and Bronchitis J40 [facility] [address] 93146 -5282 Jan, Bronchitis J40 [place] [address] 60060- 1161 Dec, Vitamin D deficiency E55.9 [place] [address] 21580- 9086 Dec, DM (diabetes mellitus) with complications E11.[address] 40797- 8355 Dec, DM (diabetes mellitus) with complications E11.8 and Vitamin D deficiency E55.9 [place] [address] 37833- 3736 Dec, DM (diabetes mellitus) with complications E11.8 ; Essential hypertension I10 ; Hyperlipidemia, unspecified hyperlipidemia type E78.5 ; Vitamin D deficiency E55.9 ; Gastroesophageal reflux disease, esophagitis presence not specified K21.9 ; 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 ; Other chronic pain G89.29 ; Encounter for immunization Z23 and Generalized anxiety disorder F41.1 [place] [id number] [place] [address] 16002- 6360 12 Nov, 2016 History of CVA with residual deficit I69.[address] 52151- 6514 11 Nov, 2016 DM (diabetes mellitus) with complications E11.[address] 68171- 0596 06 Nov, 2016 Left otitis media with effusion H65.92 ; Bronchitis J40 and Canker sores oral K12.0 [place] [id number] [place] [address] 12036- 5851 Oct, [facility] [id number] [place] [address] 40274- 6203 Oct, DM (diabetes mellitus) with complications E11.8 [place] [address] 40346- 2527 Oct, [place] [address] 19965- 6351 Sep, DM (diabetes mellitus) with complications E11.8 [place] [address] 73852- 5775 Sep, DM (diabetes mellitus) with complications E11.8 ; Essential hypertension I10 ; Gastroesophageal reflux disease, esophagitis presence not specified K21.9 ; Hyperlipidemia, unspecified hyperlipidemia type E78.5 ; Tobacco abuse Z72.0 ; Vitamin D deficiency E55.9 ; History of CVA with residual deficit I69.30 and Seasonal allergic rhinitis due to pollen J30.1 [place] [address] 09940- 0108 Sep, [place] [id number] [place] [address] 27144- 3793 Aug, [facility] [id number] [place] [address] 61758 -1452 Aug, Dysuria R30.0 ; Acute cystitis with hematuria N30.01 and Middle ear effusion, right H65.91 [place] [id number] [place] [address] 90447- 2584 Aug, Other complicated headache syndrome G44.59 [place] [id number] [place] [address] 83703- 4909 Aug, DM (diabetes mellitus) with complications E11.8 [place] [address] 53478- 3190 Aug, Dysuria R30.0 [facility] [address] [place] [address] 35231- 2124 Aug, Dysuria R30.0 [facility] [id number] [place] [address] 32888- 9651 Aug, [facility] [id number] [place] [address] 54868- 8961 July, [facility] [id number] [place] [address] 74003- 8746 July, [facility] [id number] [place] [address] 35962- 9838 July, DM (diabetes mellitus) with complications E11.8 [facility] [id number] [place] [address] 21659- 3096 July, Other complicated headache syndrome G44.59 [facility] [id number] [place] [address] 37887- 8356 July, [facility] [id number] [place] [address] 44781 -7134 July, Dysuria R30.0 and Acute cystitis with hematuria N30.01 [facility] [address] [place] [address] 06591- 0621 July, [facility] [id number] [place] [address] 55743- 0103 July, Other complicated headache syndrome G44.59 [facility] [address] [place] [address] 80091 -7934 Jun, Exposure to strep throat Z20.818 and Acute upper respiratory infection, unspecified J06.9 [facility] [address] [address]- 3615 Jun, [facility] [id number] [place] [address] 22034- 6635 Jun, DM (diabetes mellitus) with complications E11.8 and Gastroesophageal reflux disease, esophagitis presence not specified K21.9 [facility] [id number] [place] [address] 37763- 3755 Jun, [facility] [id number] [place] [address] 65532- 1832 Jun, Dizziness R42 [facility] [address] 40912 -8148 Jun, [facility] [id number] [place] [address] 92025- 2447 Jun, [facility] [id number] [place] [address] 42556 -8639 May, Seasonal allergic rhinitis, unspecified allergic rhinitis trigger J30.2 [place] [address] 59769- 7933 May, [place] [id number] [place] [address] 77849- 7383 May, DM (diabetes mellitus) with complications E11.8 [...] pollen J30.1 [facility] [address] [place] [address] 87096- 4734 May, Gastroesophageal reflux disease, esophagitis presence not specified K21.9 [place] [id number] [place] [address] 95993- 5243 May, [facility] [id number] [place] [address] 51852- 4116 Apr, [place] [id number] [place] [address] 73342- 6162 Apr, [facility] [address] [address]- 3917 Mar, [facility] [address] [address]- 7815 Mar, [facility] [address] [address]- 2452 Mar, [facility] [id number] [place] [address] 01055- 7189 Mar, [facility] [id number] [place] [address] 36124- 7595 Feb, [facility] [id number] [place] [address] 71214- 4439 Feb, [facility] [id number] [place] [address] 61474- 1162 Feb, [facility] [address] [address]- 2965 Feb, Major depressive disorder, recurrent episode, moderate F33.1 ; Generalized anxiety disorder F41.1 ; Essential hypertension I10 ; DM ( diabetes mellitus) with complications E11.8 ; Hyperlipidemia, unspecified hyperlipidemia type E78.5 ; 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 and Gastroesophageal reflux disease, esophagitis presence not specified K21.9 [facility] [place] [id number] [address] -8212 Feb, Other viral agents as the cause of diseases classified elsewhere B97.89 and Acute upper respiratory infection, unspecified J06.9 [facility] [address] [address]- 8442 Jan, [facility] [address] [place] [address] 28814- 0582 Jan, [facility] [address] [address] -2184 Jan, Acute bronchitis, unspecified organism J20.9 [place] [address] [place] [address] 70105- 8972 Jan, [place] [id number] [place] [address] 8144 Jan, History of CVA with residual deficit I69.30 [place] [id number] [place] [address] 68318- 5898 Jan, [place] [id number] [place] [address] 06378- 4898 Jan, Acute bronchitis, unspecified organism J20.9 [place] [id number] [place]- 5673 Jan, [place] [id number] [place] [address] 76691- 6734 Dec, History of CVA with residual deficit I69.30 [place] [id number] [place] [address] 22012- 2792 Dec, [place] [id number] [place] [address] 26456- 9451 Dec, Other chronic pain G89.29 ; DM (diabetes mellitus) with complications E11.8 and History of CVA with residual deficit I69.30 [place] [address] [place] [address] 20403- 7816 Nov, Major depressive disorder, recurrent episode, moderate F33.1 ; Irregular heart rhythm I49.9 ; Essential hypertension I10 ; History of CVA with residual deficit I69.30 ; DM (diabetes mellitus) with complications E11.8 ; Gastroesophageal reflux disease, esophagitis presence not specified K21.9 ; Hyperlipidemia, unspecified hyperlipidemia type E78.5 ; 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 ; Other chronic pain G89.29 and Generalized anxiety disorder F41.1 [place] [address] [place] [address] 46205- 2786 Oct, Generalized anxiety disorder F41.1 ; Major depressive disorder, recurrent episode, moderate F33.1 ; Essential hypertension I10 ; History of CVA with residual deficit I69.30 ; DM (diabetes mellitus) with complications E11.8 ; Gastroesophageal reflux disease, esophagitis presence not specified K21.9 ; Hyperlipidemia, unspecified hyperlipidemia type E78.5 ; Other chronic pain G89.29 and Bacterial conjunctivitis of left eye H10.9 [place] [address] [place] [address] 05587- 8926 Sep, Chronic pain syndrome G89.4 and DM (diabetes mellitus) with complications E11.8 [place] [id number] [place] [address] 22450- 1058 Sep, Irregular heart rhythm I49.9 ; Routine health maintenance Z00.00 ; Essential hypertension I10 ; History of CVA with residual deficit I69.30 ; Gastroesophageal reflux disease, esophagitis presence not specified K21.9 ; DM (diabetes mellitus) with complications E11.8 ; Hyperlipidemia, unspecified hyperlipidemia type E78.5 and Other complicated headache syndrome G44.59 [place] [id number] [place] [address] 18851- 4593 Jun, [place] [id number] [place] [address] 90541- 1343 Jun, [place] [id number] [place] [address] 59070- 1636 Aug, [place] [id number] [place] [address] 43318- 3278 Jun, IMMUNIZATIONS No Known Immunizations SOCIAL HISTORY Never Assessed REASON FOR VISIT lump on arm, PT reports she has a lump under her right armpit that appeared two days ago. PT notes it is hot to the touch and sore. -Rick ELLIS PLAN OF CARE Activity Details Follow Up prn Reason: VITAL SIGNS Height 62 in 2017-10-12 Weight 198.9 lbs 2017-10-12 Temperature 98.1 degrees Fahrenheit 2017-10-12 Heart Rate 93 bpm 2017-10-12 Respiratory Rate 20 2017-10-12 Oximetry 94 % 2017-10-12 BMI 36.38 kg/m2 2017-10-12 Blood pressure systolic 126 mmHg 2017-10-12 Blood pressure diastolic 70 mmHg 2017-10-12 MEDICATIONS Medication Instructions Dosage Frequency Start Date End Date Duration Status MetFORMIN HCl ER 750 MG Orally twice a day 1 tablet with meals 12h 90 days Active Xanax 1 MG Orally 4 times a day 1 tablet 6h 14 days Active Walker - as directed Jan, Active Senna S 8.6-50 MG Orally twice a day 1 tablet 12h July, 90 days Active BD Pen Needle Mini U/F 31 gauge USE ONCE DAILY WITH INSULIN PENS 90 Active Clindamycin HCl 300 MG Orally every 8 hrs 1 capsule 8h Sep,Oct 10 days Active Diltiazem HCl ER 120 MG Orally Once a day 1 capsule on an empty stomach in the morning 24h 90 days Active Test strips 8h Active Famotidine 20 mg Orally Twice a day 1 tablet 12h Apr, 90 days Active Metoprolol Tartrate 25 MG Orally Twice a day 1 tablet with food 12h 90 days Active Levemir Flexpen 100 UNIT/ML Subcutaneous 2 times a day 35 units 12h 12 months Active Humalog 100 UNIT/ML Subcutaneous 3 times a day 10 units with meals 8h July, 12 months Not-Taking NovoLog Active Plavix 75 MG Orally Once a day 1 tablet 24h 90 days Active Potassium Chloride ER 10 meq Orally Twice a day TAKE ONE TABLET BY MOUTH TWICE A DAY WITH FOOD 12h 90 Active Hydrochlorothiazide 25 MG Orally Once a day 1 tablet 24h 90 days Active One Touch/One Touch II Starter 1 glucometer subcutaneously 3 times a day to take blood sugars daily Dispense as insurance allows 8h Sep, Active ASA Oral Once a day 1 tab 24h Active Hydrocodone-Acetaminophen 10-325 MG Orally every 6 hrs 1 tablet as needed 6h Sep, Oct, 14 days Active Pantoprazole Sodium 20 mg Orally 2 times a day 1 tablets 12h May, 90 days Active Pen [place] 31 gauge subcutaneously twice a day DX: E11.8 as directed Active OneTouch Delica Lancets 33G 33 TEST BLOOD SUGAR THREE TIMES A DAY E11.8 Active Bath/Shower Seat 1 please provide one adult shower seat for patient use one time shower/bath seat for bathing Dec, Active Baclofen 20 mg Orally 2 times a day if needed 1 tablet with food or milk Feb, Oct, 30 day(s) Active Onglyza 5 mg Orally Once a day 1 tablet 24h 90 days Active OneTouch Verio - TEST BLOOD SUGAR FOUR TIMES A DAY E11.8 30 Active Atorvastatin Calcium 80 MG Orally Once a day 1 tablet 24h 90 days Active Lancets - Active RESULTS No Results PROCEDURES Procedure Date Ordered Result Body Site [facility] VISIT ESTABLISHED PATIENT October 12, 2017 INSTRUCTIONS MEDICATIONS ADMINISTERED No Known Medications MEDICAL (GENERAL) HISTORY Type Description Date Medical History diabetes mellitus Medical History hyperlipidemia Medical History hypertension Medical History Anxiety disorder Medical History Blood Clotting Disorder- Dr Galvan at [facility] Medical History Possible Anemia (currently under work up) - Dr Galvan [facility] Medical History irregular heart [...] Has been hospitalized at then transfered to [facility]. 2014 Hospitalization History Child Hospitalization History abd pain and shakiness - [facility] ED visit [facility] Hospitalization History [facility] ED for URI 04/16/17 Hospitalization History via [facility] er 08/16/17
--- OUTSIDE RECORDS SUMMARY | 2018-01-23 16:58 | XMS REPORT ---
Author Author SOTERO HUIZAR Organization [facility] Address [address] [place] [address] Care Team Providers Care Ent Nurse Name Role Phone HUIZARMICHAEL CoxELE Unavailable PROBLEMS Type Condition ICD9-CM Code CEN36-HV Code Onset Dates Condition Status SNOMED Code Problem Tobacco abuse Z72.0 Active 832800957 Problem Seasonal allergic rhinitis due to pollen J30.1 Active 56560645 Problem Tobacco abuse counseling Z71.6 Active 896609609 Problem Abnormal drug screen R89.2 Active 665623655 Problem Acute non intractable tension-type headache G44.209 Active 815496542 Problem 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.4 Active 465404029 Problem History of CVA with residual deficit I69.30 Active 276557429 Problem Chronic pain syndrome G89.4 Active 347373690 Problem Type 2 diabetes mellitus with hyperglycemia E11.65 Active 10549778 Problem Elevated liver enzymes R74.8 Active 141291538 Problem Generalized anxiety disorder F41.1 Active 09508896 Problem Vitamin D deficiency E55.9 Active 55519418 Problem Major depressive disorder, recurrent episode, moderate F33.1 Active 631956881 Problem Hyperlipidemia, unspecified hyperlipidemia type E78.5 Active 30059426 Problem Gastroesophageal reflux disease, esophagitis presence not specified K21.9 Active 818359729 Problem 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 Active 943398264 Problem Essential hypertension I10 Active 10080499 Problem DM (diabetes mellitus) with complications E11.8 Active 76303540 Problem Other chronic pain G89.29 Active 41228069 ALLERGIES No Information ENCOUNTERS Encounter Location Date Diagnosis [facility] [id number], [place] [address] Oct, [facility] [id number], [place] [address] Oct, [facility] [address] [place] [address] 10348 [address]2079 Oct, Dysuria R30.0 and Acute cystitis with hematuria N30.01 [facility] [id number] [place] [address] 30100- 9935 Oct, [facility] [id number] [place] [address] 75117- 1669 Oct, [facility] [id number] [place] [address] 35597- 9175 Oct, Controlled substance agreement broken Z91.14 ; Violation of controlled substance agreement Z91.14 ; Other chronic pain G89.29 and Generalized anxiety disorder F41.1 [place] [id number] [place] [address] 37457- 6607 Oct, [facility] [id number] [place] [address] 05867- 8323 Oct, [facility] [id number] [place] [address] 57871- 3129 Sep, Abscess L02.91 [facility] [id number] [place] [address] 93742- 5187 Sep, [facility] [id number] [place] [address] 58680- 1856 Sep, DM (diabetes mellitus) with complications E11.8 ; Generalized anxiety disorder F41.1 and Chronic pain syndrome G89.4 [place] [id number] [place] [address] 09423- 8976 Sep, Generalized anxiety disorder F41.1 ; Chronic pain syndrome G89.4 ; Abnormal drug screen R89.2 and Other chest pain R07.89 [facility] [id number] [place] [address] 86590- 3807 Aug, Dysuria R30.0 [facility] [id number] [place] [address] 85441- 5910 Aug, Generalized anxiety disorder F41.1 ; Chronic pain syndrome G89.4 and Dysuria R30.0 [facility] [address], [place] [address] Aug, Acute cystitis with hematuria N30.01 and Candidal dermatitis B37.2 [facility] [address] [place] [address] 27163- 9389 Aug, Dysuria R30.0 [facility] [id number] [place] [address] 12775- 8010 Aug, 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 [place] [id number] [place] [address] 30353- 8675 July, Generalized anxiety disorder F41.1 and Chronic pain syndrome G89.4 [place] [id number] [place] [address] 99440- 4651 July, Abscess L02.91 [place] [id number] [place] [address] 32199- 6052 July, [place] [id number] [place] [address] 32579- 2046 July, [place] [id number] [place] [address] 32201- 2678 July, Type 2 diabetes mellitus with hyperglycemia E11.65 ; 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 ; Elevated [...] pain syndrome G89.4 and Vaginal candidiasis B37.3 [place] [address] 54886- 8491 Jun, Generalized anxiety disorder F41.1 and Other chronic pain G89.29 [place] [address] 71175- 1048 Jun, [place] [address] 74318- 7054 Jun, [place] [address] 14453- 5590 Jun, Abnormal levels of other serum enzymes R74.8 [place] [address] 68757- 9160 Jun, Abnormal levels of other serum enzymes R74.8 [place] [address] 31087- 4975 Jun, Elevated liver enzymes R74.8 [place] [address] 06406- 3706 Jun, Elevated liver enzymes R74.8 [place] [address] 44553- 9037 May, Right upper quadrant pain R10.11 ; Cervicalgia M54.2 and High risk medication use Z79.899 [place] [address] 95358- 0716 May, Generalized anxiety disorder F41.1 and Other chronic pain G89.29 [place] [address] 73560- 6682 May, Canker sores oral K12.0 [facility] [id number] [place] [address] 18430- 8522 May, Generalized anxiety disorder F41.1 and Other chronic pain G89.29 [facility] [id number] [place] [address] 75596- 6804 May, [facility] [address] 05700- 7071 Apr, [facility] [address] 67100 -4792 Apr, Acute cystitis with hematuria N30.01 and Dysuria R30.0 [place] [address] 57172- 0840 Apr, [place] [address] 95809- 7600 Apr, [facility] [address] 90206- 4838 Apr, DM (diabetes mellitus) with complications E11.8 [place] [address] 25413- 8113 Apr, DM (diabetes mellitus) with complications E11.8 [facility] [id number] [place] [address] 68231- 8579 Apr, [facility] [address] 52947- 7487 Apr, [facility] [id number] [place] [address] 71365- 8745 Apr, Other chronic pain G89.29 ; Generalized anxiety disorder F41.1 ; Cervicalgia M54.2 and Controlled substance agreement signed Z79.899 [facility] [id number] [place] [address] 64069 -6322 Mar, Abdominal pain R10.9 and Viral gastroenteritis A08.4 [place] [id number] [place] [address] 03050- 7916 Mar, [place] [address] 82276- 9624 Mar, [place] [id number] [place] [address] 99410- 0145 Mar, DM (diabetes mellitus) with complications E11.8 [...] not specified K21.9 and 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 [id number] [place] [address] 46035- 4024 Mar, [place] [id number] [place] [address] 69829- 8384 Mar, DM (diabetes mellitus) with complications E11.8 ; Abnormal lung sounds R09.89 ; Bronchitis J40 and Hyperlipidemia, unspecified hyperlipidemia type E78.5 [facility] [id number] [place] [address] 75254 -1858 Mar, URI, acute J06.9 [place] [id number] [place] [address] 48733- 2514 Mar, [place] [id number] [place] [address] 23149- 9392 Mar, DM (diabetes mellitus) with complications E11.8 [place] [id number] [place] [address] 02437- 7654 Mar, Other chronic pain G89.29 and Generalized anxiety disorder F41.1 [place] [id number] [place] [address] 62001- 1345 Feb, [facility] [id number] [place] [address] 24016- 0853 Feb, Mass of left lung R91.8 and Cervicalgia M54.2 [place] [address] 73809- 9582 Feb, [facility] [address] 77732- 0912 Feb, [facility] [address] 78377 -3261 Feb, Cough R05 and Bronchitis J40 [facility] [address] 84021 -7990 07 Feb, 2017 Acute nasopharyngitis J00 and Bronchitis J40 [address] [address] 14366- 1104 06 Feb, 2017 Other chronic pain G89.29 and Generalized anxiety disorder F41.1 [place] [address] 91148- 9863 29 Jan, 2017 Encounter for immunization Z23 [facility] [address] 23571 -0215 25 Jan, 2017 [facility] [place] [address] 05460 -0000 18 Jan, 2017 [place] [address] 05371- 7753 16 Jan, 2017 Canker sores oral K12.0 [place] [address] 32406- 3444 14 Jan, 2017 [place] [address] 73870- 9260 07 Jan, 2017 Other chronic pain G89.29 and Generalized anxiety disorder F41.1 [facility] [address] 49444- 0851 06 Jan, 2017 Cough R05 and Bronchitis J40 [facility] [id number] [place] [address] 66297 -8246 Jan, Bronchitis J40 [facility] [address] 24136- 0571 Dec, Vitamin D deficiency E55.9 [facility] [address] 33869- 7051 Dec, DM (diabetes mellitus) with complications E11.8 [place] [address] 05963- 7723 Dec, DM (diabetes mellitus) with complications E11.8 and Vitamin D deficiency E55.9 [place] [address] 24103- 3649 Dec, DM (diabetes mellitus) with complications E11.8 ; Essential hypertension I10 ; Hyperlipidemia, unspecified hyperlipidemia type E78.5 ; Vitamin D deficiency E55.9 ; Gastroesophageal reflux disease, esophagitis presence not specified K21.9 ; 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 ; Other chronic pain G89.29 ; Encounter for immunization Z23 and Generalized anxiety disorder F41.1 [address] 72991- 8487 12 Nov, 2016 History of CVA with residual deficit I69.30 [place] [address] 75151- 2725 11 Nov, 2016 DM (diabetes mellitus) with complications E11.8 [place] [id number] [place] [address] 96574- 4154 06 Nov, 2016 Left otitis media with effusion H65.92 ; Bronchitis J40 and Canker sores oral K12.0 [place] [address] 25472- 3011 Oct, [place] [address] 21573- 2580 Oct, DM (diabetes mellitus) with complications E11.8 [place] [id number] [place] [address] 95691- 8280 Oct, [facility] [id number] [place] [address] 47031- 3557 Sep, DM (diabetes mellitus) with complications E11.8 [place] [id number] [place] [address] 53063- 9156 Sep, DM (diabetes mellitus) with complications E11.8 ; Essential hypertension I10 ; Gastroesophageal reflux disease, esophagitis presence not specified K21.9 ; Hyperlipidemia, unspecified hyperlipidemia type E78.5 ; Tobacco abuse Z72.0 ; Vitamin D deficiency E55.9 ; History of CVA with residual deficit I69.30 and Seasonal allergic rhinitis due to pollen J30.1 [place] [id number] [place] [address] 31352- 8418 Sep, [address] 61326- 4557 Aug, [facility] [id number] [place] [address] 15577 -1196 Aug, Dysuria R30.0 ; Acute cystitis with hematuria N30.01 and Middle ear effusion, right H65.91 [place] [id number] [place] [address] 10520- 7470 Aug, Other complicated headache syndrome G44.59 [place] [id number] [place] [address] 55308- 4461 19 Aug, 2016 DM (diabetes mellitus) with complications E11.8 [place] [id number] [place] [address] 64669- 0292 14 Aug, 2016 Dysuria R30.0 [place] [id number] [place] [address] 29324- 7420 Aug, Dysuria R30.0 [facility] [id number] [place] [address] 39615- 1095 Aug, [place] [address] [place] [address]- 7263 July, [facility] [id number] [place] [address] 16770- 9759 July, [facility] [id number] [place] [address] 08219- 4409 July, DM (diabetes mellitus) with complications E11.8 [facility] [id number] [place] [address] 37263- 9451 July, Other complicated headache syndrome G44.59 [facility] [id number] [place] [address] 84579- 1901 July, [facility] [id number] [place] [address] 00198 -6503 July, Dysuria R30.0 and Acute cystitis with hematuria N30.01 [place] [id number] [place] [address] 63313- 9134 July, [facility] [id number] [place] [address] 30113- 8369 July, Other complicated headache syndrome G44.59 [facility] [id number] [place] [address] 43998 -4029 Jun, Exposure to strep throat Z20.818 and Acute upper respiratory infection, unspecified J06.9 [place] [id number] [place] [address] 78310- 0049 Jun, [facility] [id number] [place] [address] 05069- 7433 Jun, DM (diabetes mellitus) with complications E11.8 and Gastroesophageal reflux disease, esophagitis presence not specified K21.9 [facility] [address] [place] [address] 33400- 8148 Jun, [facility] [address] [place] [address] 24364- 8297 Jun, Dizziness R42 [facility] [address], [place] [address]9 Jun, [facility] [id number] [place] [address] 29612- 0742 Jun, [facility] [id number] [place] [address] 16889 -5499 May, Seasonal allergic rhinitis, unspecified allergic rhinitis trigger J30.2 [facility] [id number] [place] [address] 57281- 5074 May, [facility] [id number] [place] [address] 28055- 8553 May, DM (diabetes mellitus) with complications E11.8 [...] Seasonal allergic rhinitis due to pollen J30.1 [facility] [id number] [place] [address] 26602- 2275 May, Gastroesophageal reflux disease, esophagitis presence not specified K21.9 [facility] [id number] [place] [address] 21322- 2803 May, [facility] [id number] [place] [address] 06013- 0453 Apr, [facility] [id number] [place] [address] 65868- 4745 Apr, [facility] [id number] [place] [address] 99105- 7609 Mar, [facility] [id number] [place] [address] 64905- 6549 Mar, [facility] [id number] [place] [address] 30120- 1020 Mar, [facility] [address], [place] [address]- 2551 Mar, [place] [id number] [place] [address] 08475- 6808 Feb, [facility] [id number] [place] [address] 63511- 2700 Feb, [place] [id number] [place] [address] 52826- 5131 Feb, [place] [id number] [place] [address] 27756- 6367 Feb, Major depressive disorder, recurrent episode, moderate F33.1 ; Generalized anxiety disorder F41.1 ; Essential hypertension I10 ; DM ( diabetes mellitus) with complications E11.8 ; Hyperlipidemia, unspecified hyperlipidemia type E78.5 ; 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 [address] [place] [address] 74766 -0836 Jan, Acute bronchitis, unspecified organism J20.9 [place] [id number] [place] [address] 66899- 5913 Jan, [place] [id number] [place] [address] 17651- 5580 04 Jan, 2016 History of CVA with residual deficit I69.30 [place] [id number] [place] [address] 25545- 6431 Jan, [place] [address] [place] [address] 17156- 5856 Jan, Acute bronchitis, unspecified organism J20.9 [place] [address] [place] [address] 11697- 7978 Jan, [place] [id number] [place] [address] 97219- 4503 Dec, History of CVA with residual deficit I69.30 [place] [address] [place] [address] 22554- 8117 Dec, [place] [id number] [place] [address] 67934- 6290 Dec, Other chronic pain G89.29 ; DM (diabetes mellitus) with complications E11.8 and History of CVA with residual deficit I69.30 [place] [address] [place] [address] 40652- 7301 Nov, Major depressive disorder, recurrent episode, moderate F33.1 ; Irregular heart rhythm I49.9 ; Essential hypertension I10 ; History of CVA with residual deficit I69.30 ; DM (diabetes mellitus) with complications E11.8 ; Gastroesophageal reflux disease, esophagitis presence not specified K21.9 ; Hyperlipidemia, unspecified hyperlipidemia type E78.5 ; 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 ; Other chronic pain G89.29 and Generalized anxiety disorder F41.1 [place] [address] [place] [address] 18472- 1209 Oct, Generalized anxiety disorder F41.1 ; Major depressive disorder, recurrent episode, moderate F33.1 ; Essential hypertension I10 ; History of CVA with residual deficit I69.30 ; DM (diabetes mellitus) with complications E11.8 ; Gastroesophageal reflux disease, esophagitis presence not specified K21.9 ; Hyperlipidemia, unspecified hyperlipidemia type E78.5 ; Other chronic pain G89.29 and Bacterial conjunctivitis of left eye H10.9 [place] [address] [place] [address] 02574- 6616 Sep, Chronic pain syndrome G89.4 and DM (diabetes mellitus) with complications E11.8 [place] [id number] [place] [address] 33265- 2294 Sep, Irregular heart rhythm I49.9 ; Routine health maintenance Z00.00 ; Essential hypertension I10 ; History of CVA with residual deficit I69.30 ; Gastroesophageal reflux disease, esophagitis presence not specified K21.9 ; DM (diabetes mellitus) with complications E11.8 ; Hyperlipidemia, unspecified hyperlipidemia type E78.5 and Other complicated headache syndrome G44.59 [place] [id number] [place] [address] 53169- 0521 Jun, [place] [id number] [place] [address] 78539- 1127 Jun, [address] 05056- 1750 Aug, [place] [id number] [place] [address] 70665- 7151 Jun, IMMUNIZATIONS No Known Immunizations SOCIAL HISTORY Never Assessed REASON FOR VISIT Lab (walk-in) PLAN OF CARE VITAL SIGNS MEDICATIONS Unknown Medications RESULTS Name Result Date Reference Range UA LONG DIP (IN HOUSE) 2017-09-12 Lot # [id number] Exp date 18 Jul 2018 Clarity clear Color dark yellow Odor no GLU TRACE STEFANY Negative KET Negative SG 1.025 BLO Negative pH 6.0 Protein Negative URO 0.2 NIT Negative HUSSEIN Negative Lot # [id number] Exp date Feb 2018 PROCEDURES Procedure Date Ordered Result Body Site URINALYSIS, AUTO, W/O SCOPE September 12, 2017 INSTRUCTIONS MEDICATIONS ADMINISTERED No Known Medications MEDICAL (GENERAL) HISTORY Type Description Date Medical History diabetes mellitus Medical History hyperlipidemia Medical History hypertension Medical History Anxiety disorder Medical History Blood Clotting Disorder- Dr Galvan at [facility] Medical History Possible Anemia (currently under work up) - Dr Galvan [facility] Medical History irregular [...] Has been hospitalized at then transfered to [place]. 2014 Hospitalization History Child Hospitalization History abd pain and shakiness - [facility] ED visit [facility] Hospitalization History [facility] ED for URI 04/16/17 Hospitalization History via [facility] 08/16/17
--- OUTSIDE RECORDS SUMMARY | 2018-01-23 16:59 | XMS REPORT ---
Author Author SOTERO HUIZAR Organization [facility] Address [address] [place] [address] Care Team Providers Care Home Care Giver Name Role Phone HUIZARMICHAEL CoxELE Unavailable PROBLEMS Type Condition ICD9-CM Code JIY60-RH Code Onset Dates Condition Status SNOMED Code Problem Tobacco abuse Z72.0 Active 792899429 Problem Seasonal allergic rhinitis due to pollen J30.1 Active 44174750 Problem Tobacco abuse counseling Z71.6 Active 023597536 Problem Abnormal drug screen R89.2 Active 581327788 Problem Acute non intractable tension-type headache G44.209 Active 215616352 Problem snf current use of insulin Z79.4 Active 470311430 Problem History of CVA with residual deficit I69.30 Active 755750850 Problem Chronic pain syndrome G89.4 Active 021054497 Problem Type 2 diabetes mellitus with hyperglycemia E11.65 Active 07000319 Problem Elevated liver enzymes R74.8 Active 747936778 Problem Generalized anxiety disorder F41.1 Active 53524562 Problem Vitamin D deficiency E55.9 Active 55854336 Problem Major depressive disorder, recurrent episode, moderate F33.1 Active 304157906 Problem Hyperlipidemia, unspecified hyperlipidemia type E78.5 Active 08026513 Problem Gastroesophageal reflux disease, esophagitis presence not specified K21.9 Active 325108739 Problem 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 Active 718476311 Problem Essential hypertension I10 Active 00851235 Problem DM (diabetes mellitus) with complications E11.8 Active 18994978 Problem Other chronic pain G89.29 Active 13058266 ALLERGIES No Information ENCOUNTERS Encounter Location Date Diagnosis [facility] [address] [facility] [id number] [address] Dec, [facility] [address] [id number] [address] Oct, [facility] [address], [place] [address] Oct, [facility] [id number] [place] [address] 43865 -4695 Oct, Dysuria R30.0 and Acute cystitis with hematuria N30.01 [facility] [id number] [place] [address] 28946- 8595 Oct, [facility] [id number] [place] [address] 18074- 7355 Oct, [facility] [id number] [place] [address] 84629- 3983 Oct, Controlled substance agreement broken Z91.14 ; Violation of controlled substance agreement Z91.14 ; Other chronic pain G89.29 and Generalized anxiety disorder F41.1 [facility] [id number] [place] [address] 33191- 8539 Oct, [facility] [id number] [place] [address] 18557- 8802 Oct, [facility] [id number] [place] [address] 52540- 7113 Sep, Abscess L02.91 [facility] [id number] [place] [address] 74284- 3422 Sep, [facility] [id number] [place] [address] 38363- 1895 Sep, DM (diabetes mellitus) with complications E11.8 ; Generalized anxiety disorder F41.1 and Chronic pain syndrome G89.4 [facility] [id number] [place] [address] 09284- 9307 Sep, Generalized anxiety disorder F41.1 ; Chronic pain syndrome G89.4 ; Abnormal drug screen R89.2 and Other chest pain R07.89 [facility] [id number] [place] [address] 22201- 8888 Aug, Dysuria R30.0 [facility] [id number] [place] [address] 18654- 8846 Aug, Generalized anxiety disorder F41.1 ; Chronic pain syndrome G89.4 and Dysuria R30.0 [place] [id number] [place] [address] 17639- 7386 Aug, Acute cystitis with hematuria N30.01 and Candidal dermatitis B37.2 [facility] [id number] [place] [address] 21664- 4577 Aug, Dysuria R30.0 [facility] [id number] [place] [address] 75845- 4332 Aug, [facility] [id number] [place] [address] 90432 -2007 Aug, Dysuria R30.0 [facility] [id number] [place] [address] 06217- 5158 Aug, [place] [id number] [place] [address] 07587- 7784 July, Cervicalgia M54.2 ; Acute non intractable tension-type headache G44.209 ; Type 2 diabetes mellitus with hyperglycemia E11.65 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 [place] [id number] [place] [address] 89608- 2139 July, Generalized anxiety disorder F41.1 and Chronic pain syndrome G89.4 [place] [id number] [place] [address] 36098- 1234 July, Abscess L02.91 [place] [id number] [place] [address] 69431- 3095 July, [place] [id number] [place] [address] 03477- 5221 July, [facility] [id number] [place] [address] 89502- 1073 July, Type 2 diabetes mellitus with hyperglycemia [...] pain syndrome G89.4 and Vaginal candidiasis B37.3 [place] [address] 24846- 0323 Jun, Generalized anxiety disorder F41.1 and Other chronic pain G89.29 [place] [address] 93282- 4304 Jun, [place] [address] 28842- 3311 Jun, [place] [address] 02618- 2227 Jun, Abnormal levels of other serum enzymes R74.8 [place] [address] 61956- 7438 Jun, Abnormal levels of other serum enzymes R74.8 [place] [address] 61842- 6937 Jun, Elevated liver enzymes R74.8 [place] [address] 13669- 1604 Jun, Elevated liver enzymes R74.8 [place] [address] 37888- 4136 May, Right upper quadrant pain R10.11 ; Cervicalgia M54.2 and High risk medication use Z79.899 [place] [id number] [place] [address] 71024- 5563 May, Generalized anxiety disorder F41.1 and Other chronic pain G89.29 [facility] [id number] [place] [address] 01075- 1213 May, Canker sores oral K12.0 [facility] [address] 20910- 8770 May, Generalized anxiety disorder F41.1 and Other chronic pain G89.29 [facility] [address] 55418- 8425 May, [facility] [address] 98154- 5060 Apr, [facility] [address] 06899 -2887 Apr, Acute cystitis with hematuria N30.01 and Dysuria R30.0 [place] [address] 85193- 7880 Apr, [facility] [address] 38706- 5211 Apr, [facility] [address] 96650- 5555 Apr, DM (diabetes mellitus) with complications E11.8 [place] [address] 78187- 8570 06 Apr, 2017 DM (diabetes mellitus) with complications E11.8 [place] [address] 53436- 6263 Apr, [facility] [id number] [place] [address] 10486- 2627 Apr, [facility] [address] 96534- 1329 Apr, Other chronic pain G89.29 ; Generalized anxiety disorder F41.1 ; Cervicalgia M54.2 and Controlled substance agreement signed Z79.899 [facility] [address] 93900 -2474 Mar, Abdominal pain R10.9 and Viral gastroenteritis A08.4 [place] [address] 82957- 8590 Mar, [facility] [address] 63361- 7252 Mar, [place] [address] 30570- 6499 Mar, DM (diabetes mellitus) with complications E11.8 [...] not specified K21.9 and 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 [place] [address] 50380- 1907 Mar, [place] [address] 75763- 3813 Mar, DM (diabetes mellitus) with complications E11.8 ; Abnormal lung sounds R09.89 ; Bronchitis J40 and Hyperlipidemia, unspecified hyperlipidemia type E78.5 [facility] [address] 17499 -9336 Mar, URI, acute J06.9 [facility] [id number] [place] [address] 19952- 4907 Mar, [place] [address] 02320- 0979 Mar, DM (diabetes mellitus) with complications E11.8 [facility] [address] 29132- 2507 Mar, Other chronic pain G89.29 and Generalized anxiety disorder F41.1 [facility] [address] 02095- 1095 Feb, [facility] [address] 10865- 1371 Feb, Mass of left lung R91.8 and Cervicalgia M54.2 [place] [address] 90569- 8113 Feb, [facility] [address] 97512- 9653 Feb, [facility] [address] 00320 -1632 Feb, Cough R05 and Bronchitis J40 [facility] [place] [address] 60139 -1120 07 Feb, 2017 Acute nasopharyngitis J00 and Bronchitis J40 [place] [address] 20948- 8589 06 Feb, 2017 Other chronic pain G89.29 and Generalized anxiety disorder F41.1 [place] [address] 32057- 1258 Jan, Encounter for immunization Z23 [facility] [place] [address] 82724 -1702 Jan, [facility] [place] [address] 95144 -0071 18 Jan, 2017 [facility] [address] 54559- 6474 16 Jan, 2017 Canker sores oral K12.0 [place] [address] 91690- 6922 14 Jan, 2017 [place] [address] 78420- 7237 07 Jan, 2017 Other chronic pain G89.29 and Generalized anxiety disorder F41.1 [place] [address] 30023- 8207 Jan, Cough R05 and Bronchitis J40 [facility] [address] 78112 -4589 Jan, Bronchitis J40 [facility] [address] 97575- 1563 Dec, Vitamin D deficiency E55.9 [place] [address] 23835- 5264 Dec, DM (diabetes mellitus) with complications E11.8 [place] [address] 35411- 1007 Dec, DM (diabetes mellitus) with complications E11.8 and Vitamin D deficiency E55.9 [place] [address] 44615- 7416 Dec, DM (diabetes mellitus) with complications E11.8 ; Essential hypertension I10 ; Hyperlipidemia, unspecified hyperlipidemia type E78.5 ; Vitamin D deficiency E55.9 ; Gastroesophageal reflux disease, esophagitis presence not specified K21.9 ; 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 ; Other chronic pain G89.29 ; Encounter for immunization Z23 and Generalized anxiety disorder F41.1 [place] [address] 99717- 9346 Nov, History of CVA with residual deficit I69.30 [place] [address] 54267- 1109 Nov, DM (diabetes mellitus) with complications E11.8 [place] [address] 91677- 3551 06 Nov, 2016 Left otitis media with effusion H65.92 ; Bronchitis J40 and Canker sores oral K12.0 [place] [address] 44223- 6138 Oct, [place] [address] 81225- 8918 04 Oct, 2016 DM (diabetes mellitus) with complications E11.8 [place] [id number] [place] [address] 18930- 2144 02 Oct, 2016 [facility] [id number] [place] [address] 88932- 0775 17 Sep, 2016 DM (diabetes mellitus) with complications E11.8 [place] [id number] [place] [address] 77776- 9526 11 Sep, 2016 DM (diabetes mellitus) with complications E11.8 ; Essential hypertension I10 ; Gastroesophageal reflux disease, esophagitis presence not specified K21.9 ; Hyperlipidemia, unspecified hyperlipidemia type E78.5 ; Tobacco abuse Z72.0 ; Vitamin D deficiency E55.9 ; History of CVA with residual deficit I69.30 and Seasonal allergic rhinitis due to pollen J30.1 [place] [id number] [place] [address] 35757- 1976 Sep, [place] [id number] [place] [address] 92330- 1943 30 Aug, 2016 [facility] [id number] [place] [address] 06949 -8896 Aug, Dysuria R30.0 ; Acute cystitis with hematuria N30.01 and Middle ear effusion, right H65.91 [place] [id number] [place] [address] 76007- 6580 Aug, Other complicated headache syndrome G44.59 [place] [id number] [place] [address] 61604- 9873 19 Aug, 2016 DM (diabetes mellitus) with complications E11.8 [place] [id number] [place] [address] 72649- 9839 14 Aug, 2016 Dysuria R30.0 [place] [id number] [place] [address] 07227- 3897 12 Aug, 2016 Dysuria R30.0 [place] [address] [place] [address]- 8310 Aug, [facility] [id number] [place] [address] 54141- 7820 July, [facility] [id number] [place] [address] 90657- 5752 July, [facility] [id number] [place] [address] 29309- 8829 July, DM (diabetes mellitus) with complications E11.8 [facility] [id number] [place] [address] 60308- 1572 July, Other complicated headache syndrome G44.59 [place] [id number] [place] [address] 48060- 5885 July, [facility] [id number] [place] [address] 47013 -4349 July, Dysuria R30.0 and Acute cystitis with hematuria N30.01 [facility] [id number] [place] [address] 42776- 6036 July, [facility] [id number] [place] [address] 26021- 3582 July, Other complicated headache syndrome G44.59 [facility] [id number] [place] [address] 22002 -1790 Jun, Exposure to strep throat Z20.818 and Acute upper respiratory infection, unspecified J06.9 [facility] [address] [address]- 2835 Jun, [facility] [id number] [place] [address] 00325- 1691 Jun, DM (diabetes mellitus) with complications E11.8 and Gastroesophageal reflux disease, esophagitis presence not specified K21.9 [facility] [address] [place] [address] 78808- 4485 Jun, [facility] [id number] [place] [address] 77528- 4945 11 Jun, 2016 Dizziness R42 [facility] [id number] [place] [address] 89310 -1429 Jun, [facility] [id number] [place] [address] 29681- 5612 Jun, [facility] [address] 03046 -7093 May, Seasonal allergic rhinitis, unspecified allergic rhinitis trigger J30.2 [facility] [id number] [place] [address] 45553- 7823 May, [facility] [id number] [place] [address] 99008- 3047 May, DM (diabetes mellitus) with complications E11.8 [...] J30.1 [facility] [id number] [place] [address] 54856- 2095 May, Gastroesophageal reflux disease, esophagitis presence not specified K21.9 [facility] [id number] [place] [address] 42139- 3359 May, [facility] [id number] [place] [address] 46176- 1398 Apr, [facility] [id number] [place] [address] 12659- 2891 Apr, [facility] [id number] [place] [address] 55183- 1033 Mar, [facility] [id number] [place] [address] 71793- 2182 Mar, [facility] [address], [place] [address]- 3191 Mar, [facility] [id number] [place] [address] 88642- 5856 Mar, [facility] [id number] [place] [address] 91567- 9984 Feb, [facility] [id number] [place] [address] 79561- 3208 Feb, [facility] [id number] [place] [address] 55431- 2833 Feb, [place] [id number] [place] [address] 97109- 6886 Feb, Major depressive disorder, recurrent episode, moderate F33.1 ; Generalized anxiety disorder F41.1 ; Essential hypertension I10 ; DM ( diabetes mellitus) with complications E11.8 ; Hyperlipidemia, unspecified hyperlipidemia type E78.5 ; 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 and Gastroesophageal reflux disease, esophagitis presence not specified K21.9 [facility] [id number] [place] [address] 47817 -9398 Feb, Other viral agents as the cause of diseases classified elsewhere B97.89 and Acute upper respiratory infection, unspecified J06.9 [facility] [address] [place] [address] 41141- 5164 Jan, [facility] [id number] [place] [address] 79906- 0621 Jan, [facility] [id number] [place] [address] 29128 -6722 Jan, Acute bronchitis, unspecified organism J20.9 [facility] [address] [place] [address] 98784- 8053 Jan, [facility] [id number] [place] [address] 46981- 3351 Jan, History of CVA with residual deficit I69.30 [place] [address] [address]- 1331 Jan, [place] [id number] [place] [address] 82436- 9515 Jan, Acute bronchitis, unspecified organism J20.9 [place] [id number] [place] [address] 26151- 1188 Jan, [place] [id number] [place] [address] 11399- 3241 Dec, History of CVA with residual deficit I69.30 [place] [id number] [place] [address] 14373- 7791 Dec, [place] [id number] [place] [address] 37892- 3218 Dec, Other chronic pain G89.29 ; DM (diabetes mellitus) with complications E11.8 and History of CVA with residual deficit I69.30 [place] [id number] [place] [address] 86923- 1660 Nov, Major depressive disorder, recurrent episode, moderate F33.1 ; Irregular heart rhythm I49.9 ; Essential hypertension I10 ; History of CVA with residual deficit I69.30 ; DM (diabetes mellitus) with complications E11.8 ; Gastroesophageal reflux disease, esophagitis presence not specified K21.9 ; Hyperlipidemia, unspecified hyperlipidemia type E78.5 ; 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 ; Other chronic pain G89.29 and Generalized anxiety disorder F41.1 [place] [address] [address]- 8992 Oct, Generalized anxiety disorder F41.1 ; Major depressive disorder, recurrent episode, moderate F33.1 ; Essential hypertension I10 ; History of CVA with residual deficit I69.30 ; DM (diabetes mellitus) with complications E11.8 ; Gastroesophageal reflux disease, esophagitis presence not specified K21.9 ; Hyperlipidemia, unspecified hyperlipidemia type E78.5 ; Other chronic pain G89.29 and Bacterial conjunctivitis of left eye H10.[address] [place] [address] 15230- 9015 Sep, Chronic pain syndrome G89.4 and DM (diabetes mellitus) with complications E11.8 [address] [place] [address] 03352- 1100 Sep, Irregular heart rhythm I49.9 ; Routine health maintenance Z00.00 ; Essential hypertension I10 ; History of CVA with residual deficit I69.30 ; Gastroesophageal reflux disease, esophagitis presence not specified K21.9 ; DM (diabetes mellitus) with complications E11.8 ; Hyperlipidemia, unspecified hyperlipidemia type E78.5 and Other complicated headache syndrome G44.59 [place] [id number] [place] [address] 04278- 8946 Jun, [place] [id number] [place] [address] 87672- 3244 Jun, [place] [id number] [place] [address] 04250- 4742 Aug, [place] [id number] [place] [address] 79421- 5735 Jun, IMMUNIZATIONS No Known Immunizations SOCIAL HISTORY [...] History Blood Clotting Disorder- Dr Galvan at [facility] Medical History Possible Anemia (currently under work up) - Dr Galvan [facility] Medical History irregular heart beat-sees [...] Has been hospitalized at then transfered to [place]. 2014 Hospitalization History Child Hospitalization History abd pain and shakiness - [facility] visit [facility] Hospitalization History [facility] ED for URI 04/16/17 Hospitalization History via [facility] er 08/16/17
--- OUTSIDE RECORDS SUMMARY | 2018-01-23 17:00 | XMS REPORT ---
Author Author SOTERO HUIZAR Organization [facility] Address [address] [place] [address] Care Team Providers Care Production Control Specialist Name Role Phone HUIZARMICHAEL CoxELE Unavailable PROBLEMS Type Condition ICD9-CM Code ZHX90-SZ Code Onset Dates Condition Status SNOMED Code Problem Tobacco abuse Z72.0 Active 972822671 Problem Seasonal allergic rhinitis due to pollen J30.1 Active 75719605 Problem Tobacco abuse counseling Z71.6 Active 069899178 Problem Abnormal drug screen R89.2 Active 462493176 Problem Acute non intractable tension-type headache G44.209 Active 527714645 Problem alf current use of insulin Z79.4 Active 178183949 Problem History of CVA with residual deficit I69.30 Active 168170648 Problem Chronic pain syndrome G89.4 Active 481386727 Problem Type 2 diabetes mellitus with hyperglycemia E11.65 Active 02336124 Problem Elevated liver enzymes R74.8 Active 242428259 Problem Generalized anxiety disorder F41.1 Active 63394922 Problem Vitamin D deficiency E55.9 Active 00908063 Problem Major depressive disorder, recurrent episode, moderate F33.1 Active 954279857 Problem Hyperlipidemia, unspecified hyperlipidemia type E78.5 Active 94007335 Problem Gastroesophageal reflux disease, esophagitis presence not specified K21.9 Active 397661084 Problem 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 Active 787241222 Problem Essential hypertension I10 Active 67044990 Problem DM (diabetes mellitus) with complications E11.8 Active 47501935 Problem Other chronic pain G89.29 Active 68446844 ALLERGIES No Information ENCOUNTERS Encounter Location Date Diagnosis [facility] [address] [facility] [id number] [address] Dec, [facility] [id number] [address] Oct, [facility] [address] [address] Oct, [facility] [id number] [place] [address]359 [address]8168 Oct, Dysuria R30.0 and Acute cystitis with hematuria N30.01 [facility] [id number] [place] [address] 06718- 2773 Oct, [facility] [id number] [place] [address] 79385- 9933 Oct, [facility] [id number] [place] [address] 07594- 8442 Oct, Controlled substance agreement broken Z91.14 ; Violation of controlled substance agreement Z91.14 ; Other chronic pain G89.29 and Generalized anxiety disorder F41.1 [facility] [id number] [place] [address] 68897- 7145 Oct, [facility] [id number] [place] [address] 63194- 0508 Oct, [facility] [id number] [place] [address] 40512- 1041 Sep, Abscess L02.91 [facility] [id number] [place] [address] 89068- 9401 Sep, [facility] [id number] [place] [address] 05522- 6270 Sep, DM (diabetes mellitus) with complications E11.8 ; Generalized anxiety disorder F41.1 and Chronic pain syndrome G89.4 [facility] [id number] [place] [address] 94068- 8662 Sep, Generalized anxiety disorder F41.1 ; Chronic pain syndrome G89.4 ; Abnormal drug screen R89.2 and Other chest pain R07.89 [facility] [id number] [place] [address] 60001- 5254 Aug, Dysuria R30.0 [facility] [id number] [place] [address] 42963- 9591 Aug, Generalized anxiety disorder F41.1 ; Chronic pain syndrome G89.4 and Dysuria R30.0 [place] [id number] [place] [address] 37052- 4006 Aug, Acute cystitis with hematuria N30.01 and Candidal dermatitis B37.2 [facility] [id number] [place] [address] 98394- 5693 Aug, Dysuria R30.0 [facility] [id number] [place] [address] 48219- 2039 Aug, [facility] [id number] [place] [address] 71095 -1826 Aug, Dysuria R30.0 [facility] [id number] [place] [address] 02099- 7520 Aug, [place] [id number] [place] [address] 07734- 7952 July, Cervicalgia M54.2 ; Acute non intractable tension-type headache G44.209 ; Type 2 diabetes mellitus with hyperglycemia E11.65 and 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 current use of insulin Z79.4 [facility] [id number] [place] [address] 68780- 0479 July, Generalized anxiety disorder F41.1 and Chronic pain syndrome G89.4 [place] [id number] [place] [address] 94481- 0407 July, Abscess L02.91 [place] [id number] [place] [address] 64899- 4600 July, [place] [id number] [place] [address] 61487- 0621 July, [facility] [id number] [place] [address] 56192- 1116 July, Type 2 diabetes mellitus with hyperglycemia [...] pain syndrome G89.4 and Vaginal candidiasis B37.3 [place] [address] 70472- 2742 Jun, Generalized anxiety disorder F41.1 and Other chronic pain G89.29 [place] [address] 91543- 4660 Jun, [place] [address] 15923- 4089 Jun, [place] [address] 18771- 3114 Jun, Abnormal levels of other serum enzymes R74.8 [place] [address] 19986- 1694 Jun, Abnormal levels of other serum enzymes R74.8 [place] [address] 21035- 1853 Jun, Elevated liver enzymes R74.8 [place] [address] 10923- 3597 Jun, Elevated liver enzymes R74.8 [place] [address] 35347- 0318 May, Right upper quadrant pain R10.11 ; Cervicalgia M54.2 and High risk medication use Z79.899 [place] [id number] [place] [address] 24384- 6910 May, Generalized anxiety disorder F41.1 and Other chronic pain G89.29 [facility] [id number] [place] [address] 92553- 6063 May, Canker sores oral K12.0 [facility] [address] 45509- 4963 May, Generalized anxiety disorder F41.1 and Other chronic pain G89.29 [facility] [address] 23267- 2198 May, [facility] [address] 91022- 3110 Apr, [facility] [address] 53497 -9089 Apr, Acute cystitis with hematuria N30.01 and Dysuria R30.0 [place] [address] 25179- 3855 Apr, [facility] [address] 92351- 3688 Apr, [facility] [address] 09544- 8012 Apr, DM (diabetes mellitus) with complications E11.8 [place] [address] 05860- 2341 06 Apr, 2017 DM (diabetes mellitus) with complications E11.8 [place] [address] 39420- 9192 Apr, [facility] [id number] [place] [address] 29929- 7917 Apr, [facility] [address] 11397- 1030 Apr, Other chronic pain G89.29 ; Generalized anxiety disorder F41.1 ; Cervicalgia M54.2 and Controlled substance agreement signed Z79.899 [facility] [address] 78437 -1415 Mar, Abdominal pain R10.9 and Viral gastroenteritis A08.4 [place] [address] 97766- 0285 Mar, [facility] [address] 05422- 6414 Mar, [place] [address] 87714- 6139 Mar, DM (diabetes mellitus) with complications E11.8 [...] not specified K21.9 and 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 [place] [address] 71699- 3686 Mar, [place] [address] 05887- 1560 Mar, DM (diabetes mellitus) with complications E11.8 ; Abnormal lung sounds R09.89 ; Bronchitis J40 and Hyperlipidemia, unspecified hyperlipidemia type E78.5 [facility] [address] 65344 -8766 Mar, URI, acute J06.9 [facility] [id number] [place] [address] 34438- 8982 Mar, [place] [address] 87132- 2586 Mar, DM (diabetes mellitus) with complications E11.8 [facility] [address] 49389- 4581 Mar, Other chronic pain G89.29 and Generalized anxiety disorder F41.1 [facility] [address] 08776- 1723 Feb, [facility] [address] 79995- 3531 Feb, Mass of left lung R91.8 and Cervicalgia M54.2 [place] [address] 11925- 9650 Feb, [facility] [address] 52347- 8364 Feb, [facility] [address] 46956 -3132 Feb, Cough R05 and Bronchitis J40 [facility] [place] [address] 33872 -9065 07 Feb, 2017 Acute nasopharyngitis J00 and Bronchitis J40 [place] [address] 90480- 9251 06 Feb, 2017 Other chronic pain G89.29 and Generalized anxiety disorder F41.1 [place] [address] 95727- 4343 Jan, Encounter for immunization Z23 [facility] [place] [address] 72682 -2932 Jan, [facility] [place] [address] 24921 -5172 18 Jan, 2017 [facility] [address] 75854- 2272 16 Jan, 2017 Canker sores oral K12.0 [place] [address] 90206- 6416 14 Jan, 2017 [place] [address] 44583- 3882 07 Jan, 2017 Other chronic pain G89.29 and Generalized anxiety disorder F41.1 [place] [address] 41124- 2882 Jan, Cough R05 and Bronchitis J40 [facility] [address] 27342 -9320 Jan, Bronchitis J40 [facility] [address] 01154- 8346 Dec, Vitamin D deficiency E55.9 [place] [address] 16346- 8651 Dec, DM (diabetes mellitus) with complications E11.8 [place] [address] 97963- 7647 Dec, DM (diabetes mellitus) with complications E11.8 and Vitamin D deficiency E55.9 [place] [address] 52413- 3500 Dec, DM (diabetes mellitus) with complications E11.8 ; Essential hypertension I10 ; Hyperlipidemia, unspecified hyperlipidemia type E78.5 ; Vitamin D deficiency E55.9 ; Gastroesophageal reflux disease, esophagitis presence not specified K21.9 ; 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 ; Other chronic pain G89.29 ; Encounter for immunization Z23 and Generalized anxiety disorder F41.1 [place] [address] 97159- 3234 Nov, History of CVA with residual deficit I69.30 [place] [address] 70010- 9382 Nov, DM (diabetes mellitus) with complications E11.8 [place] [address] 00177- 1750 06 Nov, 2016 Left otitis media with effusion H65.92 ; Bronchitis J40 and Canker sores oral K12.0 [place] [address] 06991- 0374 Oct, [place] [address] 99404- 8417 04 Oct, 2016 DM (diabetes mellitus) with complications E11.8 [place] [id number] [place] [address] 66822- 6650 02 Oct, 2016 [facility] [id number] [place] [address] 63950- 0187 17 Sep, 2016 DM (diabetes mellitus) with complications E11.8 [place] [id number] [place] [address] 97432- 0738 11 Sep, 2016 DM (diabetes mellitus) with complications E11.8 ; Essential hypertension I10 ; Gastroesophageal reflux disease, esophagitis presence not specified K21.9 ; Hyperlipidemia, unspecified hyperlipidemia type E78.5 ; Tobacco abuse Z72.0 ; Vitamin D deficiency E55.9 ; History of CVA with residual deficit I69.30 and Seasonal allergic rhinitis due to pollen J30.1 [id number] [place] [address] 67866- 6185 Sep, [place] [id number] [place] [address] 93091- 3652 30 Aug, 2016 [facility] [id number] [place] [address] 27670 -8007 Aug, Dysuria R30.0 ; Acute cystitis with hematuria N30.01 and Middle ear effusion, right H65.91 [id number] [place] [address] 72894- 7855 Aug, Other complicated headache syndrome G44.59 [place] [id number] [place] [address] 35528- 5827 19 Aug, 2016 DM (diabetes mellitus) with complications E11.8 [place] [id number] [place] [address] 95988- 2229 14 Aug, 2016 Dysuria R30.0 [place] [id number] [place] [address] 20663- 2043 12 Aug, 2016 Dysuria R30.0 [place] [address] [place] [address]- 6866 Aug, [facility] [address] [place] [address] 36058- 3897 July, [facility] [address] [place] [address] 81594- 4131 July, [facility] [id number] [place] [address] 25394- 4624 July, DM (diabetes mellitus) with complications E11.8 [facility] [id number] [place] [address] 26459- 2151 July, Other complicated headache syndrome G44.59 [place] [id number] [place] [address] 80348- 8665 July, [facility] [id number] [place] [address] 27379 -7597 July, Dysuria R30.0 and Acute cystitis with hematuria N30.01 [facility] [id number] [place] [address] 17737- 4417 July, [facility] [id number] [place] [address] 52911- 8346 July, Other complicated headache syndrome G44.59 [facility] [address] [place] [address] 13297 -6783 Jun, Exposure to strep throat Z20.818 and Acute upper respiratory infection, unspecified J06.9 [facility] [address] [address]- 7325 Jun, [facility] [id number] [place] [address] 19536- 4424 Jun, DM (diabetes mellitus) with complications E11.8 and Gastroesophageal reflux disease, esophagitis presence not specified K21.9 [facility] [address] [place] [address] 90942- 5408 Jun, [facility] [id number] [place] [address] 86817- 1159 11 Jun, 2016 Dizziness R42 [facility] [id number] [place] [address] 68834 -6529 Jun, [facility] [id number] [place] [address] 08065- 9323 Jun, [facility] [address] 70261 -4386 May, Seasonal allergic rhinitis, unspecified allergic rhinitis trigger J30.2 [facility] [id number] [place] [address] 37766- 8223 May, [facility] [id number] [place] [address] 55953- 1425 May, DM (diabetes mellitus) with complications E11.8 [...] pollen J30.1 [facility] [id number] [place] [address] 73022- 0035 May, Gastroesophageal reflux disease, esophagitis presence not specified K21.9 [facility] [id number] [place] [address] 29804- 8360 May, [facility] [id number] [place] [address] 51121- 5430 Apr, [facility] [id number] [place] [address] 06248- 5899 Apr, [facility] [id number] [place] [address] 57543- 9016 Mar, [facility] [id number] [place] [address] 38906- 4853 Mar, [facility] [address] [address]- 5123 Mar, [facility] [address] [place] [address] 11200- 5410 Mar, [facility] [id number] [place] [address] 89563- 6630 Feb, [facility] [id number] [place] [address] 41356- 3311 Feb, [facility] [id number] [place] [address] 75119- 7588 Feb, [place] [id number] [place] [address] 72945- 1418 Feb, Major depressive disorder, recurrent episode, moderate F33.1 ; Generalized anxiety disorder F41.1 ; Essential hypertension I10 ; DM ( diabetes mellitus) with complications E11.8 ; Hyperlipidemia, unspecified hyperlipidemia type E78.5 ; 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 and Gastroesophageal reflux disease, esophagitis presence not specified K21.9 [facility] [id number] [place] [address] 24030 -4141 Feb, Other viral agents as the cause of diseases classified elsewhere B97.89 and Acute upper respiratory infection, unspecified J06.9 [facility] [address] [place] [address] 57583- 0948 Jan, [facility] [id number] [place] [address] 92313- 1048 Jan, [facility] [address] [place] [address] 81599 -6572 Jan, Acute bronchitis, unspecified organism J20.9 [facility] [address] [place] [address] 25490- 5561 Jan, [facility] [id number] [place] [address] 08064- 2724 Jan, History of CVA with residual deficit I69.30 [place] [address] [address]- 9072 Jan, [place] [address] [place] [address] 81709- 7477 Jan, Acute bronchitis, unspecified organism J20.9 [place] [id number] [place] [address] 01358- 9849 Jan, [place] [id number] [place] [address] 12829- 5066 Dec, History of CVA with residual deficit I69.30 [place] [id number] [place] [address] 00337- 4470 Dec, [place] [id number] [place] [address] 04556- 3265 Dec, Other chronic pain G89.29 ; DM (diabetes mellitus) with complications E11.8 and History of CVA with residual deficit I69.30 [place] [address] [place] [address] 72578- 0864 Nov, Major depressive disorder, recurrent episode, moderate F33.1 ; Irregular heart rhythm I49.9 ; Essential hypertension I10 ; History of CVA with residual deficit I69.30 ; DM (diabetes mellitus) with complications E11.8 ; Gastroesophageal reflux disease, esophagitis presence not specified K21.9 ; Hyperlipidemia, unspecified hyperlipidemia type E78.5 ; 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 ; Other chronic pain G89.29 and Generalized anxiety disorder F41.1 [place] [address] [address]- 9800 Oct, Generalized anxiety disorder F41.1 ; Major depressive disorder, recurrent episode, moderate F33.1 ; Essential hypertension I10 ; History of CVA with residual deficit I69.30 ; DM (diabetes mellitus) with complications E11.8 ; Gastroesophageal reflux disease, esophagitis presence not specified K21.9 ; Hyperlipidemia, unspecified hyperlipidemia type E78.5 ; Other chronic pain G89.29 and Bacterial conjunctivitis of left eye H10.[address] [place] [address] 75389- 5054 Sep, Chronic pain syndrome G89.4 and DM (diabetes mellitus) with complications E11.8 [address] [place] [address] 29468- 0157 Sep, Irregular heart rhythm I49.9 ; Routine health maintenance Z00.00 ; Essential hypertension I10 ; History of CVA with residual deficit I69.30 ; Gastroesophageal reflux disease, esophagitis presence not specified K21.9 ; DM (diabetes mellitus) with complications E11.8 ; Hyperlipidemia, unspecified hyperlipidemia type E78.5 and Other complicated headache syndrome G44.59 [place] [id number] [place] [address] 28328- 9181 Jun, [place] [id number] [place] [address] 41876- 1052 Jun, [place] [id number] [place] [address] 48033- 7361 Aug, [place] [id number] [place] [address] 84566- 3999 Jun, IMMUNIZATIONS No Known Immunizations SOCIAL HISTORY Never Assessed REASON FOR VISIT Controlled Med Refill PLAN OF CARE VITAL SIGNS MEDICATIONS Medication Instructions Dosage Frequency Start Date End Date Duration Status Xanax 1 MG Orally 4 times a day 1 tablet 6h 14 days Active OneTouch Verio - TEST BLOOD SUGAR FOUR TIMES A DAY E11.8 30 Active Hydrocodone-Acetaminophen 10-325 MG Orally every 6 hrs 1 tablet as needed 6h Sep, Oct, 14 days Active RESULTS No Results PROCEDURES No Known procedures INSTRUCTIONS MEDICATIONS ADMINISTERED No Known Medications MEDICAL (GENERAL) HISTORY Type Description Date Medical History diabetes mellitus Medical History hyperlipidemia Medical History hypertension Medical History Anxiety disorder Medical History Blood Clotting Disorder- Dr Galvan at [facility] Medical History Possible Anemia (currently under work up) - Dr Galvan [facility] Medical History irregular heart beat-sees dr. hassan Medical History history of pancreatitis Medical History gerd Medical History History of CVA with residual deficit Medical History Other complicated headache syndrome Medical History Stokes syndrome Surgical History tubal ligation Surgical History section Surgical History cholecystectomy Surgical History Toe Nail Removal x2 Hospitalization History Brain Stem Strokes x5. Has been hospitalized at then transfered to [place]. 2014 Hospitalization History Child Hospitalization History abd pain and shakiness - [facility] ED visit [facility] Hospitalization History [facility] ED for URI 04/16/17 Hospitalization History via [facility] er 08/16/17
[2018-01-23 17:15] LABS: BILIRUBIN,URINE NEGATIVE (NEGATIVE); CLARITY,URINE CLEAR; COLOR,URINE YELLOW; GLUCOSE, URINE (UA) 4+ (NEGATIVE); KETONES,URINE NEGATIVE (NEGATIVE); LEUKOCYTE ESTERASE ,URINE 1+ (NEGATIVE); NITRITE,URINE NEGATIVE (NEGATIVE); PH,URINE 7 (5-9); PROTEIN,URINE 1+ (NEGATIVE); UROBILINOGEN,URINE 1 MG/DL (NORMAL)
[2018-01-23] MEDS ORDERED: IOHEXOL 350 MG/ML 100 ML (OMNIPAQUE 350) VIAL IV ONE (17:15)
[2018-01-23] MEDS ORDERED: RECEIVED CONTRAST (Hold Metformin) IV SCH (17:15)
[2018-01-23] MEDS ORDERED: NS 250 ML (IVPB) BAG IV ONE (17:15)
[2018-01-23 17:21] LABS: BACTERIA,URINE FEW /HPF; WBC,URINE RARE /HPF
--- OUTSIDE RECORDS SUMMARY | 2018-01-23 17:41 | XMS REPORT | Continuity of Care Document ---
Author Author [facility] Organization [facility] Address Unknown Phone Unavailable Allergies Active Description Code Type Severity Reaction Onset Reported/Identified Relationship to Patient Clinical Status Yes Erythromycin Base [id number] Drug Allergy Mild N/A 11/11/2008 Yes codeine [id number] Drug Allergy Unknown N/A 11/14/2008 Yes Penicillins [id number] Drug Allergy Unknown N/A 11/14/2008 Yes nitrofurantoin [id number] Drug Allergy Unknown N/A 11/04/2017 Medications There [...] 09/01/2012 PASTOR CISNEROS MD Ot 794.09 ABN INTERIOR ASSEMBLIES DEVELOPER PROVER FUNCT STUDY NEC 09/01/2012 PASTOR CISNEROS MD [...] E Ot 787.20 DYSPHAGIA, UNSPECIFIED 09/28/2013 MICHELLE WRIGHT SILVIA E Ot E942.6 ADV EFF ANTIHYPERTEN [...] PASTOR J Ot 783.1 05/11/2014 AMELIA WRIGHT, [facility] Ot 787.3 05/11/2014 AMELIA WRIGHT, PASTOR [...] WRIGHT, PASTOR J Ot 401.9 05/11/2014 AMELIA WRGIHT, PASTOR J Ot 428.0 05/11/2014 AMELIA WRIGHT, [...] Blank Ot 348.89 05/11/2014 AMELIA WRIGHT, PASTOR Blank Ot 780.97 05/11/2014 AMELIA WRIGHT, [...] AMELIA WRIGHT, PASTOR J Ot 783.1 05/15/2014 AMELIA WRIGHT, [facility] Ot 787.3 05/15/2014 AMELIA WRIGHT, [facility] Ot 789.09 05/15/2014 AMELIA WRIGHT, PASTOR [...] WRIGHT, ALBERTASEELAN Ot 786.50 05/15/2014 AMELIA WRIGHT, [facility] Ot 251.2 05/15/2014 AMELIA WRIGHT, [facility] Ot 790.29 05/15/2014 AMELIA WRIGHT, [facility] Ot 780.39 05/15/2014 AMELIA WRIGHT, [facility] Ot 348.89 05/15/2014 AMELIA WRIGHT, [facility] Ot 780.97 05/15/2014 AMELIA WRIGHT, [facility] Ot 781.99 05/15/2014 AMELIA WRIGHT, [facility] Ot 530.81 05/15/2014 AMELIA WRIGHT, [facility] Ot 553.3 05/15/2014 AMELIA WRIGHT, [facility] Ot 787.20 05/15/2014 JASON WRIGHT, [facility] Ot 288.60 05/15/2014 AMELIA WRIGHT, [facility] Ot 530.81 05/15/2014 AMELIA WRIGHT, [facility] Ot 553.3 05/15/2014 AMELIA WRIGHT, [facility] Ot 787.20 05/15/2014 AMELIA WRIGHT, [facility] Ot 348.89 05/15/2014 AMELIA WRIGHT, [facility] Ot 780.97 05/15/2014 AMELIA WRIGHT, [facility] Ot 781.99 05/15/2014 Ot 272.4 05/15/2014 [...] AMELIA WRIGHT, PASTOR J Ot 781.99 05/15/2014 MAELIA WRIGHT, PASTOR J Ot 530.81 05/15/2014 AMELIA WRIGHT, PASTOR J Ot 553.3 05/15/2014 AMELIA WRIGHT, PASTOR J Ot 787.20 05/15/2014 JASON WRIGHT, [facility] Ot 288.60 05/17/2014 AMELIA WRIGHT, PASTOR [...] Ot 786.2 08/26/2014 Ot 786.50 08/26/2014 AMELIA WIRGHT, PASTOR Blank Ot 794.09 08/26/2014 AMELIA WRIGHT, [...] WRIGHT, PASTOR J Ot 785.0 08/26/2014 AMELIA WRGIHT, PASTOR J Ot 786.50 08/26/2014 TRISTAN WRIGHT, [...] PASTOR J Ot 348.89 08/26/2014 AMELIA WRIGHT, [place] J Ot 780.97 08/26/2014 AMELIA WRIGHT, [place] J Ot 781.99 08/26/2014 AMELIA WRIGHT, PASTOR [...] 2 DIABETES MELLITUS WITHOUT COMPLIC 03/23/2015 PASTOR CISNEROS MD Ot E66.9 OBESITY, UNSPECIFIED 03/23/2015 AMELIA WRIGHT, PASTOR Blank Ot I73.9 PERIPHERAL VASCULAR DISEASE, UNSPECIFIED 03/23/2015 PASTOR CISNEROS MD Ot Z86.73 PRSNL HX OF TIA (TIA), AND CEREB INFRC W 03/29/2015 JOSE ADLER DO Ot E87.6 HYPOKALEMIA 03/29/2015 JOSE ADLER DO Ot F17.210 NICOTINE DEPENDENCE, CIGARETTES, UNCOMPL 03/29/2015 JOSE ADLER DO Ot R20.2 PARESTHESIA OF SKIN 03/29/2015 JOSE ADLER DO Ot Z79.82 [facility] (CURRENT) USE OF ASPIRIN 03/29/2015 JOSE ADLER DO Ot Z79.899 OTHER [facility] (CURRENT) DRUG THERAPY 03/29/2015 JOSE ADLER DO Ot Z86.73 PRSNL HX OF TIA (TIA), AND CEREB INFRC W 04/03/2015 AMELIA WRIGHT, PASTOR Blank Ot E11.9 04/03/2015 PASTOR CISNEROS MD Ot Z79.4 05/13/2015 PASTOR CISNEROS MD Ot E11.9 05/13/2015 PASTOR CISNEROS MD Ot M79.662 05/13/2015 PASTOR CISNEROS MD Ot R51 05/22/2015 THELMA FARAH APRN Ot R20.2 PARESTHESIA OF SKIN 05/22/2015 THELMA FARAH METAL TEMPLATE MAKER Ot R42 DIZZINESS AND GIDDINESS 05/22/2015 THELMA FARAH METAL TEMPLATE MAKER Ot 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 05/22/2015 THELMA FARAH METAL TEMPLATE MAKER Ot Z79.82 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 OF ASPIRIN 05/24/2015 RONAN SOTO MD A Ot E11.9 TYPE 2 DIABETES MELLITUS WITHOUT COMPLIC 05/24/2015 RONAN SOTO MD A Ot F17.210 NICOTINE DEPENDENCE, CIGARETTES, UNCOMPL 05/24/2015 RONAN SOTO MD A Ot R20.2 PARESTHESIA OF SKIN 05/24/2015 RONAN SOTO MD A Ot Z79.82 [facility] (CURRENT) USE OF ASPIRIN 05/24/2015 RONAN SOTO MD A Ot Z79.899 OTHER 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 SALES MANAGER (CURRENT) DRUG THERAPY 06/04/2015 RONAN SOTO MD [...] HYPERTENSION 07/25/2015 GILBERT GOMEZ MD Ot 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 07/25/2015 GILBERT GOMEZ MD Ot Z79.82 [facility] (CURRENT) USE OF ASPIRIN 08/01/2015 GILBERT GOMEZ [...] HYPERTENSION 08/06/2015 GILBERT GOMEZ MD Ot 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 08/06/2015 GILBERT GOMEZ MD Ot Z79.82 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 OF ASPIRIN 09/03/2015 GILBERT GOMEZ [...] 09/03/2015 GILBERT GOMEZ MD Ot Z79.899 OTHER 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 SALES MANAGER (CURRENT) DRUG THERAPY 09/10/2015 AKBAR EVANS MD, Ot D72.829 ELEVATED WHITE BLOOD CELL COUNT, UNSPECI 09/10/2015 AKBAR EVANS MD, Ot F17.210 NICOTINE DEPENDENCE, CIGARETTES, UNCOMPL 09/10/2015 NATHAN WRIGHT, AKBAR [employer] Ot R11.0 NAUSEA 09/10/2015 NATHAN WRIGHT, AKBAR [employer] Ot R19.7 DIARRHEA, UNSPECIFIED 09/10/2015 NATHAN WRIGHT, [...] 780.39 OTHER CONVULSIONS 09/10/2015 Ot 794.09 ABN INTERIOR ASSEMBLIES DEVELOPER PROVER FUNCT STUDY NEC 09/10/2015 Ot 794.8 ABN LIVER FUNCTION STUDY 09/10/2015 Ot 368.9 VISUAL DISTURBANCE NOS 09/10/2015 Ot 780.2 SYNCOPE AND COLLAPSE 09/10/2015 Ot 780.79 OTH MALAISE FATIGUE 09/10/2015 Ot 786.2 COUGH 09/10/2015 Ot 786.50 CHEST PAIN NOS 09/10/2015 AMELIA WRIGHT, PASTOR Blank Ot 794.09 ABN INTERIOR ASSEMBLIES DEVELOPER PROVER FUNCT STUDY NEC 09/10/2015 AMELIA WRIGHT, PASTOR [...] 09/10/2015 GILBERT GOMEZ MD Ot Z79.899 OTHER [facility] (CURRENT) DRUG THERAPY 09/10/2015 YUKO GARRETT MD Ot I10 ESSENTIAL (PRIMARY) HYPERTENSION 09/10/2015 YUKO GARRETT MD Ot R00.2 PALPITATIONS 09/10/2015 YUKO GARRETT MD Ot R06.02 SHORTNESS OF BREATH 09/10/2015 YUKO GARRETT MD Ot R07.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.4 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 OF INSULIN 09/10/2015 PASTOR CISNEROS [...] HYPERTENSION 09/10/2015 GILBERT GOMEZ MD Ot Z79.02 [facility] (CURRENT) USE OF ANTITHROMBOTI 09/10/2015 GILBERT GOMEZ MD, Ot Z79.82 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 OF ASPIRIN 09/10/2015 AKBAR EVANS [...] 10/02/2015 GILBERT GOMEZ MD Ot Z79.899 OTHER 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 SALES MANAGER (CURRENT) DRUG THERAPY 10/05/2015 JOSE ADLER DO Ot E87.6 HYPOKALEMIA 10/05/2015 JOSE ADLER DO Ot F41.9 ANXIETY DISORDER, UNSPECIFIED 10/05/2015 VITOR DOJOSE Ot R42 DIZZINESS AND GIDDINESS 10/29/2015 GILBERT GOMEZ MD Ot 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) THROMBOCYTHEMIA 10/29/2015 GILBERT GOMZE MD Ot D72.829 ELEVATED WHITE BLOOD CELL [...] 10/29/2015 GILBERT GOMEZ MD, Ot Z79.899 OTHER [facility] (CURRENT) DRUG THERAPY 10/30/2015 GILBERT GOMEZ MD [...] 10/30/2015 GILBERT GOMEZ MD Ot Z79.899 OTHER [facility] (CURRENT) DRUG THERAPY 11/04/2015 GILBERT GOMEZ MD [...] 11/04/2015 GILBERT GOMEZ MD, Ot Z79.899 OTHER [facility] (CURRENT) DRUG THERAPY 12/11/2015 GILBERT GOMEZ MD, Ot 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) THROMBOCYTHEMIA 12/11/2015 GILBERT GOMEZ MD, Ot D72.829 ELEVATED WHITE BLOOD CELL COUNT, UNSPECI 12/11/2015 GILBERT GOMEZ MD Ot E78.5 HYPERLIPIDEMIA, UNSPECIFIED 12/11/2015 GILBERT GOMEZ MD, Ot I10 ESSENTIAL (PRIMARY) HYPERTENSION 12/11/2015 GILEBRT GOMEZ MD Ot 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 12/11/2015 GILBERT GOMEZ MD Ot I69.998 OTHER SEQUELAE FOLLOWING UNSPECIFIED CER 12/11/2015 GILBERT GOMEZ MD Ot M62.81 MUSCLE WEAKNESS (GENERALIZED) 12/11/2015 GILBERT GOMEZ MD Ot R00.0 TACHYCARDIA, UNSPECIFIED 12/11/2015 GILBERT GOMEZ MD Ot Z79.899 OTHER [facility] (CURRENT) DRUG THERAPY 12/19/2015 GILBERT GOMEZ MD [...] 12/19/2015 GILBERT GOMEZ MD Ot Z79.899 OTHER [facility] (CURRENT) DRUG THERAPY 01/02/2016 GILBERT GOMEZ MD [...] 01/02/2016 GILBERT GOMEZ MD Ot Z79.899 OTHER [facility] (CURRENT) DRUG THERAPY 03/17/2016 GILBERT GOMEZ MD Ot 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) THROMBOCYTHEMIA 03/17/2016 GILBERT GOMEZ MD Ot D72.829 ELEVATED WHITE BLOOD CELL COUNT, UNSPECI 03/17/2016 GILBERT GOMEZ MD Ot E78.5 HYPERLIPIDEMIA, UNSPECIFIED 03/17/2016 GILBERT GOEMZ MD Ot I10 ESSENTIAL (PRIMARY) HYPERTENSION 03/17/2016 GILBERT GOMEZ MD Ot 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 03/17/2016 GILBERT GOMEZ MD Ot I69.998 OTHER SEQUELAE FOLLOWING UNSPECIFIED CER 03/17/2016 GILBERT GOMEZ MD Ot M62.81 MUSCLE WEAKNESS (GENERALIZED) 03/17/2016 GILBERT GOMEZ MD Ot R00.0 TACHYCARDIA, UNSPECIFIED 03/17/2016 GILBERT GOMEZ MD Ot Z79.899 OTHER [facility] (CURRENT) DRUG THERAPY 03/23/2016 Ot 272.4 HYPERLIPIDEMIA [...] 780.39 OTHER CONVULSIONS 03/23/2016 Ot 794.09 ABN INTERIOR ASSEMBLIES DEVELOPER PROVER FUNCT STUDY NEC 03/23/2016 Ot 794.8 ABN LIVER FUNCTION STUDY 03/23/2016 Ot 368.9 VISUAL DISTURBANCE NOS 03/23/2016 Ot 780.2 SYNCOPE AND COLLAPSE 03/23/2016 Ot 780.79 OTH MALAISE FATIGUE 03/23/2016 Ot 786.2 COUGH 03/23/2016 Ot 786.50 CHEST PAIN NOS 03/23/2016 PASTOR CISNEROS MD Ot 794.09 ABN INTERIOR ASSEMBLIES DEVELOPER PROVER FUNCT STUDY NEC 03/23/2016 PASTOR CISNEROS MD [...] HUDSON MD Ot 401.9 HYPERTENSION NOS 03/23/2016 USLEMA HUDSON MD Ot 424.0 MITRAL VALVE DISORDER 03/23/2016 SULEMA HUDSON MD Ot 786.50 CHEST PAIN NOS 03/23/2016 SULEMA HUDSON MD Ot 401.9 HYPERTENSION NOS 03/23/2016 SULEMA HUDSON MD Ot 786.50 CHEST PAIN NOS 03/23/2016 PASTOR CISNEROS MD Ot 251.2 HYPOGLYCEMIA NOS 03/23/2016 PASTOR ICSNEROS MD Ot 790.29 OTHER ABNORMAL GLUCOSE 03/23/2016 [...] COMPLIC 03/23/2016 PASTOR CISNEROS MD Ot Z79.4 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 OF INSULIN 03/23/2016 PASTOR CISNEROS [...] HYPERTENSION 03/23/2016 GILBERT GOMEZ MD Ot Z79.02 [facility] (CURRENT) USE OF ANTITHROMBOTI 03/23/2016 GILBERT GOMEZ MD Ot Z79.82 [facility] (CURRENT) USE OF ASPIRIN 03/23/2016 GILBERT GOMEZ [...] 03/23/2016 GILBERT GOMEZ MD Ot Z79.899 OTHER 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 SALES MANAGER (CURRENT) DRUG THERAPY 06/15/2016 JASON WRIGHT GILBERT [...] JASON WRIGHT GILBERT Esqueda Ot Z79.899 OTHER [facility] (CURRENT) DRUG THERAPY 06/30/2016 Ot 530.81 ESOPHAGEAL [...] 780.39 OTHER CONVULSIONS 06/30/2016 Ot 794.09 ABN INTERIOR ASSEMBLIES DEVELOPER PROVER FUNCT STUDY NEC 06/30/2016 Ot 794.8 ABN LIVER FUNCTION STUDY 06/30/2016 Ot 368.9 VISUAL DISTURBANCE NOS 06/30/2016 Ot 780.2 SYNCOPE AND COLLAPSE 06/30/2016 Ot 780.79 OTH MALAISE FATIGUE 06/30/2016 Ot 786.2 COUGH 06/30/2016 Ot 786.50 CHEST PAIN NOS 06/30/2016 AMELIA WRIGHT, PASTOR Blank Ot 794.09 ABN INTERIOR ASSEMBLIES DEVELOPER PROVER FUNCT STUDY NEC 06/30/2016 AMELIA WRIGHT, PASTOR [...] COMPLIC 06/30/2016 PASTOR CISNEROS MD Ot Z79.4 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 OF INSULIN 06/30/2016 PASTOR CISNEROS [...] HYPERTENSION 06/30/2016 GILBERT GOMEZ MD Ot Z79.02 [facility] (CURRENT) USE OF ANTITHROMBOTI 06/30/2016 GILBERT GOMEZ MD Ot Z79.82 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 OF ASPIRIN 06/30/2016 GILBERT GOMEZ [...] 06/30/2016 GILBERT GOMEZ MD Ot Z79.899 OTHER [facility] (CURRENT) DRUG THERAPY 06/30/2016 GILBERT GOMEZ MD [...] 06/30/2016 GILBERT GOMEZ MD Ot Z79.899 OTHER 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 SALES MANAGER (CURRENT) DRUG THERAPY 06/30/2016 Ot 530.81 ESOPHAGEAL [...] 780.39 OTHER CONVULSIONS 06/30/2016 Ot 794.09 ABN INTERIOR ASSEMBLIES DEVELOPER PROVER FUNCT STUDY NEC 06/30/2016 Ot 794.8 ABN LIVER FUNCTION STUDY 06/30/2016 Ot 368.9 VISUAL DISTURBANCE NOS 06/30/2016 Ot 780.2 SYNCOPE AND COLLAPSE 06/30/2016 Ot 780.79 OTH MALAISE FATIGUE 06/30/2016 Ot 786.2 COUGH 06/30/2016 Ot 786.50 CHEST PAIN NOS 06/30/2016 AMELIA WRIGHT, PASTOR Blank Ot 794.09 ABN INTERIOR ASSEMBLIES DEVELOPER PROVER FUNCT STUDY NEC 06/30/2016 AMELIA WRIGHT, PASTOR [...] COMPLIC 06/30/2016 PASTOR CISNEROS MD Ot Z79.4 [facility] (CURRENT) USE OF INSULIN 06/30/2016 PASTOR CISNEROS [...] HYPERTENSION 06/30/2016 GILBERT GOMEZ MD, Ot Z79.02 [facility] (CURRENT) USE OF ANTITHROMBOTI 06/30/2016 GILBERT GOMEZ MD, Ot Z79.82 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 OF ASPIRIN 06/30/2016 GILBERT GOMEZ [...] 06/30/2016 GILBERT GOMEZ MD, Ot Z79.899 OTHER [facility] (CURRENT) DRUG THERAPY 07/09/2016 GILBERT GOMEZ MD, [...] 07/09/2016 GILBERT GOMEZ MD Ot Z79.899 OTHER [facility] (CURRENT) DRUG THERAPY 08/02/2016 GILBERT GOMEZ MD [...] GROSS HEMATURIA 08/16/2016 PRISCILLA HUNT Ot Z79.02 [facility] (CURRENT) USE OF ANTITHROMBOTI 08/16/2016 PRISCILLA HUNT Ot Z79.82 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 OF ASPIRIN 08/16/2016 PRISCILLA HUNT Ot Z79.899 OTHER 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 SALES MANAGER (CURRENT) DRUG THERAPY 08/19/2016 PRISCILLA HUNT Ot E11.9 TYPE 2 DIABETES MELLITUS WITHOUT COMPLIC 08/19/2016 PRISCILLA HUNT Ot F17.210 NICOTINE DEPENDENCE, CIGARETTES, UNCOMPL 08/19/2016 PRISCILLA HUNT Ot I10 ESSENTIAL (PRIMARY) HYPERTENSION 08/19/2016 PRISCILLA HUNT Ot N30.01 ACUTE CYSTITIS WITH HEMATURIA 08/19/2016 PRISCILLA HUNT Ot R31.0 GROSS HEMATURIA 08/19/2016 PRISCILLA HUNT Ot 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 08/19/2016 PRISCILLA HUNT Ot Z79.82 [facility] (CURRENT) USE OF ASPIRIN 08/19/2016 PRISCILLA HUNT L Ot Z79.899 OTHER [facility] (CURRENT) DRUG THERAPY 09/03/2016 GILBERT GOMEZ MD [...] 09/12/2016 GILBERT GOMEZ MD, Ot Z79.899 OTHER [facility] (CURRENT) DRUG THERAPY 11/09/2016 AKBAR EVANS MD [...] GIDDINESS 11/09/2016 AKBAR EVANS MD, Ot Z79.82 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 OF ASPIRIN 11/09/2016 AKBAR EVANS [...] GIDDINESS 11/11/2016 AKBAR EVANS MD, Ot Z79.82 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 OF ASPIRIN 11/11/2016 AKBAR EVANS [...] 12/02/2016 IGOR ARANA MD Ot Z79.899 OTHER 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 SALES MANAGER (CURRENT) DRUG THERAPY 12/21/2016 IGOR ARANA MD [...] 12/21/2016 IGOR ARANA MD Ot Z79.899 OTHER 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 SALES MANAGER (CURRENT) DRUG THERAPY 02/11/2017 IGOR ARANA MD, [...] 02/11/2017 IGOR ARANA MD, Ot Z79.899 OTHER 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 SALES MANAGER (CURRENT) DRUG THERAPY 03/12/2017 PRISCILLA HUNT Ot [...] Ot R42 DIZZINESS AND GIDDINESS 03/12/2017 PRISCILLA HUTN Ot R93.5 ABN FINDINGS ON DX IMAGING OF ABD REGION 03/12/2017 PRISCILLA HUNT Ot Z79.82 [facility] (CURRENT) USE OF ASPIRIN 03/12/2017 PRISCILLA HUNT [...] 03/20/2017 IGOR ARANA MD, Ot Z79.899 OTHER 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 SALES MANAGER (CURRENT) DRUG THERAPY 03/24/2017 PRISCILLA HUNT Ot [...] ABD REGION 03/24/2017 PRISCILLA HUNT Ot Z79.82 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 OF ASPIRIN 03/24/2017 PRISCILLA HUNT [...] GIDDINESS 04/09/2017 AKBAR EVANS MD Ot Z79.82 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 OF ASPIRIN 04/09/2017 AKBAR EVANS MD Ot Z80.0 FAMILY HISTORY OF MALIGNANT NEOPLASM OF 04/09/2017 AKBAR EVANS MD, Ot Z82.49 FAMILY HX OF ISCHEM HEART DIS AND OTH DI 04/09/2017 AKABR EVANS MD Ot Z86.73 PRSNL HX OF [...] PLEURODYNIA 04/17/2017 GWEN RAMOS MD Ot Z79.01 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 OF ANTICOAGULANT 04/17/2017 GWEN RAMOS MD Ot Z79.82 [facility] (CURRENT) USE OF ASPIRIN 04/17/2017 GWEN RAMOS [...] PLEURODYNIA 04/18/2017 GWEN RAMOS MD Ot Z79.01 [facility] (CURRENT) USE OF ANTICOAGULANT 04/18/2017 GWEN RAMOS MD Ot Z79.82 [facility] (CURRENT) USE OF ASPIRIN 04/18/2017 GWEN RAMOS [...] PULMONARY DISEASE, U 05/09/2017 HIPOLITOLIDIA GALARZAINE Shefali METAL TEMPLATE MAKER Ot R91.1 SOLITARY PULMONARY NODULE 05/09/2017 LIDIA MCMILLANINE Shefali METAL TEMPLATE MAKER Ot J30.2 OTHER SEASONAL ALLERGIC RHINITIS 05/09/2017 LIDIA MCMILLANINE Shefali METAL TEMPLATE MAKER Ot J44.9 CHRONIC OBSTRUCTIVE PULMONARY DISEASE, U 05/09/2017 HIPOLITOLIDIA GALARZAINE Shefali METAL TEMPLATE MAKER Ot R91.1 SOLITARY PULMONARY NODULE 06/13/2017 LIDIA MCMILLANINE Shefali METAL TEMPLATE MAKER Ot J30.2 OTHER SEASONAL ALLERGIC RHINITIS 06/13/2017 HIPOLITO, MIRELLA Shefali METAL TEMPLATE MAKER Ot J44.9 CHRONIC OBSTRUCTIVE PULMONARY DISEASE, U 06/13/2017 HIPOLITOLIDIA GALARZAINE Shefali METAL TEMPLATE MAKER Ot R91.1 SOLITARY PULMONARY NODULE 06/24/2017 SOTERO HUIZAR APRN Ot K43.9 VENTRAL HERNIA WITHOUT OBSTRUCTION OR GA 06/24/2017 SOTERO HUIZAR METAL TEMPLATE MAKER Ot R16.0 HEPATOMEGALY, NOT ELSEWHERE CLASSIFIED 06/29/2017 SOTERO HUIZAR APRN Ot K43.9 VENTRAL HERNIA WITHOUT OBSTRUCTION OR GA 06/29/2017 SOTERO HUIZAR METAL TEMPLATE MAKER Ot R16.0 HEPATOMEGALY, NOT ELSEWHERE CLASSIFIED 07/09/2017 [...] 07/09/2017 IGOR ARANA MD Ot Z79.899 OTHER [facility] (CURRENT) DRUG THERAPY 07/14/2017 SOTERO HUIZAR APRN Ot K43.9 VENTRAL HERNIA WITHOUT OBSTRUCTION OR GA 07/14/2017 SOTERO HUIZAR METAL TEMPLATE MAKER Ot R16.0 HEPATOMEGALY, NOT ELSEWHERE CLASSIFIED 08/16/2017 [...] HEADACHE 08/16/2017 THELMA FARAH APRN Ot 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 08/16/2017 THELMA FARAH APRN Ot Z79.82 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 OF ASPIRIN 08/16/2017 THELMA FARAH [...] HEADACHE 08/18/2017 THELMA FARAH APRN Ot Z79.02 [facility] (CURRENT) USE OF ANTITHROMBOTI 08/18/2017 THELMA FARAH APRN Ot Z79.82 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 OF ASPIRIN 08/18/2017 THELMA FARAH [...] PAIN 09/15/2017 JULIENNE CLEVELAND MD Ot 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 09/15/2017 JULIENNE CLEVELAND MD Ot Z79.82 [facility] (CURRENT) USE OF ASPIRIN 09/15/2017 JULIENNE CLEVELAND [...] 780.39 OTHER CONVULSIONS 09/29/2017 Ot 794.09 ABN INTERIOR ASSEMBLIES DEVELOPER PROVER FUNCT STUDY NEC 09/29/2017 Ot 794.8 ABN LIVER FUNCTION STUDY 09/29/2017 Ot 368.9 VISUAL DISTURBANCE NOS 09/29/2017 Ot 780.2 SYNCOPE AND COLLAPSE 09/29/2017 Ot 780.79 OTH MALAISE FATIGUE 09/29/2017 Ot 786.2 COUGH 09/29/2017 Ot 786.50 CHEST PAIN NOS 09/29/2017 AMELIA WRIGHT, PASTOR Blank Ot 794.09 ABN INTERIOR ASSEMBLIES DEVELOPER PROVER FUNCT STUDY NEC 09/29/2017 PASTOR CISNEROS MD [...] Ot 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 09/29/2017 APSTOR CISNEROS MD Ot 780.97 ALTERED MENTAL STATUS [...] YUKO GARRETT MD Ot 785.1 PALPITATIONS 09/29/2017 YUOK GARRETT MD Ot 786.05 SHORTNESS OF BREATH [...] COMPLIC 09/29/2017 PASTOR CISNEROS MD Ot Z79.4 [facility] (CURRENT) USE OF INSULIN 09/29/2017 PASTOR CISNEROS [...] HYPERTENSION 09/29/2017 GILBERT GOMEZ MD Ot 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 09/29/2017 GILBERT GOMEZ MD, Ot Z79.82 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 OF ASPIRIN 09/29/2017 GILBERT GOMEZ [...] 09/29/2017 IGOR ARANA MD Ot Z79.899 OTHER [facility] (CURRENT) DRUG THERAPY 09/29/2017 MIRELLA MCMILLAN APRN Ot J43.8 OTHER EMPHYSEMA 09/29/2017 MIRELLA MCMILLAN APRN Ot R91.1 SOLITARY PULMONARY NODULE 09/29/2017 HIPOLITO, MIRELLA E METAL TEMPLATE MAKER Ot Z72.0 TOBACCO USE 09/29/2017 MIRELLA MCMILLAN METAL TEMPLATE MAKER Ot J30.2 OTHER SEASONAL ALLERGIC RHINITIS 09/29/2017 MIRELLA MCMILLAN METAL TEMPLATE MAKER Ot J44.9 CHRONIC OBSTRUCTIVE PULMONARY DISEASE, U 09/29/2017 MIRELLA MCMILLAN METAL TEMPLATE MAKER Ot R91.1 SOLITARY PULMONARY NODULE 09/29/2017 HUIZARSOTERO Cox METAL TEMPLATE MAKER Ot K43.9 VENTRAL HERNIA WITHOUT OBSTRUCTION OR GA 09/29/2017 HUIZARSOTERO Cox METAL TEMPLATE MAKER Ot R16.0 HEPATOMEGALY, NOT ELSEWHERE CLASSIFIED 10/04/2017 GERRY WRIGHT, YUKO Blank Ot I10 ESSENTIAL (PRIMARY) HYPERTENSION 10/04/2017 YUKO GARRETT MD Ot J44.9 CHRONIC OBSTRUCTIVE PULMONARY DISEASE, U 10/04/2017 YUKO GARRETT MD Ot K21.9 GASTRO-ESOPHAGEAL REFLUX DISEASE WITHOUT 10/04/2017 YUKO GARRETT MD Ot R07.9 CHEST PAIN, UNSPECIFIED 10/08/2017 MIRELLA MCMILLAN METAL TEMPLATE MAKER Ot J43.8 OTHER EMPHYSEMA 10/08/2017 MIRELLA MCMILLAN METAL TEMPLATE MAKER Ot R91.1 SOLITARY PULMONARY NODULE 10/08/2017 MIRELLA MCMILLAN METAL TEMPLATE MAKER Ot Z72.0 TOBACCO USE 10/18/2017 MIRELLA MCMILLAN METAL TEMPLATE MAKER Ot J30.2 OTHER SEASONAL ALLERGIC RHINITIS 10/18/2017 MIRELLA MCMILLAN METAL TEMPLATE MAKER Ot J44.9 CHRONIC OBSTRUCTIVE PULMONARY DISEASE, U 10/18/2017 MIRELLA MCMILLAN METAL TEMPLATE MAKER Ot R91.1 SOLITARY PULMONARY NODULE 11/04/2017 AMELIA [...] 11/04/2017 IGOR ARANA MD Ot Z79.899 OTHER [facility] (CURRENT) DRUG THERAPY 11/04/2017 BILLY GOLD MD Ot E11.9 TYPE 2 DIABETES MELLITUS WITHOUT COMPLIC 11/04/2017 BILLY GOLD MD Ot E78.00 PURE HYPERCHOLESTEROLEMIA, UNSPECIFIED 11/04/2017 BILLY GOLD MD Ot F17.210 NICOTINE DEPENDENCE, CIGARETTES, UNCOMPL 11/04/2017 BILLY GOLD MD Ot F41.9 ANXIETY DISORDER, UNSPECIFIED 11/04/2017 ASIF WRIGHT, BILLY Baeza Ot G43.909 MIGRAINE, UNSP, NOT INTRACTABLE, WITHOUT 11/04/2017 BILLY GODL MD Ot I10 ESSENTIAL (PRIMARY) HYPERTENSION 11/04/2017 BILLY GOLD MD Ot K21.9 GASTRO-ESOPHAGEAL REFLUX DISEASE WITHOUT 11/04/2017 BILLY GOLD MD Ot N39.0 URINARY TRACT INFECTION, SITE NOT SPECIF 11/04/2017 BILLY GOLD MD Ot R31.9 HEMATURIA, UNSPECIFIED 11/04/2017 BILLY GOLD MD Ot Z79.02 [facility] (CURRENT) USE OF ANTITHROMBOTI 11/04/2017 BILLY GOLD MD Ot Z79.82 [facility] (CURRENT) USE OF ASPIRIN 11/04/2017 BILLY GOLD MD Ot Z80.0 FAMILY HISTORY OF MALIGNANT NEOPLASM OF 11/04/2017 BILLY GLOD MD Ot Z82.49 FAMILY HX OF ISCHEM HEART DIS AND OTH DI 11/04/2017 BILLY GOLD MD, Ot Z86.73 PRSNL HX OF TIA (TIA), AND CEREB INFRC W 11/04/2017 BILLY GOLD MD Ot Z87.440 PERSONAL HISTORY OF URINARY (TRACT) INFE 11/04/2017 ASIF WRIGHT, BILLY Baeza Ot Z87.59 PERSONAL HISTORY OF COMP OF PREG, CHLDBR 11/04/2017 ASIF WRIGHT, BILLY Baeza Ot Z88.0 ALLERGY STATUS TO PENICILLIN 11/04/2017 AISF WRIGHT, BILLY Baeza Ot Z88.5 ALLERGY STATUS TO NARCOTIC AGENT STATUS 11/04/2017 ASIF WRIGHT, BILLY Baeza Ot Z88.8 ALLERGY STATUS TO OTH DRUG/MEDS/BIOL SUB 11/04/2017 ASIF WRIGHT, BILLY Baeza Ot Z98.51 TUBAL LIGATION STATUS 11/06/2017 GERRY WRIGHT, YUKO Blank Ot I10 ESSENTIAL (PRIMARY) HYPERTENSION 11/06/2017 GERRY WRIGHT, YUKO Blank Ot J44.9 CHRONIC OBSTRUCTIVE PULMONARY DISEASE, U 11/06/2017 GERRY WRIGHT, YUKO Blank Ot K21.9 GASTRO-ESOPHAGEAL REFLUX DISEASE WITHOUT 11/06/2017 GERRY WRIGHT, YUKO Blank Ot R07.9 CHEST PAIN, UNSPECIFIED 11/07/2017 ASIF [...] GOLD MD Ot R31.9 HEMATURIA, UNSPECIFIED 11/07/2017 ASIF WRIGHT, BILLY Baeza Ot Z79.02 [facility] (CURRENT) USE OF ANTITHROMBOTI 11/07/2017 BILLY GOLD MD Ot Z79.82 [facility] (CURRENT) USE OF ASPIRIN 11/07/2017 ASIF WRIGHT, BILLY Baeza Ot Z80.0 FAMILY HISTORY OF MALIGNANT NEOPLASM OF 11/07/2017 ASIF WRIGHT, BILLY Baeza Ot Z82.49 FAMILY HX OF ISCHEM HEART DIS AND OTH DI 11/07/2017 ASIF WRIGHT, BILLY Baeza Ot Z86.73 PRSNL HX OF TIA (TIA), AND CEREB INFRC W 11/07/2017 ASIF WRIGHT, BILLY Baeza Ot Z87.440 PERSONAL HISTORY OF URINARY (TRACT) INFE 11/07/2017 BILLY GOLD MD Ot Z87.59 PERSONAL HISTORY OF COMP OF PREG, CHLDBR 11/07/2017 ASIF WRIGHT, BILLY Baeza Ot Z88.0 ALLERGY STATUS TO PENICILLIN 11/07/2017 ASIF WRIGHT, BILLY Baeza Ot Z88.5 ALLERGY STATUS TO NARCOTIC AGENT STATUS 11/07/2017 ASIF WRIGHT, BILLY Baeza Ot Z88.8 ALLERGY STATUS TO OT DRUG/MEDS/BIOL SUB 11/07/2017 BILLY GOLD MD Ot Z98.51 TUBAL LIGATION STATUS 11/08/2017 MIRELLA MCMILLAN APRN Ot R91.8 OTHER NONSPECIFIC ABNORMAL FINDING OF GIOVANNA 11/08/2017 MIRELLA MCMILLAN APRN Ot Z72.0 TOBACCO USE 11/24/2017 THELMA FARAH APRN Ot E11.9 TYPE 2 DIABETES MELLITUS WITHOUT COMPLIC 11/24/2017 THELMA FARAH APRN Ot E78.00 PURE HYPERCHOLESTEROLEMIA, UNSPECIFIED 11/24/2017 THELAM FARAH APRN Ot F41.9 ANXIETY DISORDER, UNSPECIFIED 11/24/2017 THELMA FARAH APRN Ot G43.909 MIGRAINE, UNSP, NOT INTRACTABLE, WITHOUT 11/24/2017 THELMA FARAH APRN Ot I10 ESSENTIAL (PRIMARY) HYPERTENSION 11/24/2017 THELMA FARAH APRN Ot K21.9 GASTRO-ESOPHAGEAL REFLUX DISEASE WITHOUT 11/24/2017 THELMA FARAH APRN Ot N39.0 URINARY TRACT INFECTION, SITE NOT SPECIF 11/24/2017 THELMA FARAH APRN Ot R42 DIZZINESS AND GIDDINESS 11/24/2017 THELMA FARAH APRN Ot 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 11/24/2017 THELMA FARAH APRN Ot Z79.82 [facility] (CURRENT) USE OF ASPIRIN 11/24/2017 THELMA FARAH APRN Ot Z80.0 FAMILY HISTORY OF MALIGNANT NEOPLASM OF 11/24/2017 THELMA FARAH METAL TEMPLATE MAKER Ot Z82.49 FAMILY HX OF ISCHEM HEART DIS AND OTH DI 11/24/2017 THELMA FARAH APRN Ot Z86.73 PRSNL HX OF TIA (TIA), AND CEREB INFRC W 11/24/2017 THELMA FARAH APRN Ot Z87.19 PERSONAL HISTORY OF OTHER DISEASES OF TH 11/24/2017 THELMA FARAH APRN Ot Z87.440 PERSONAL HISTORY OF URINARY (TRACT) INFE 11/24/2017 THELMA FARAH METAL TEMPLATE MAKER Ot Z87.59 PERSONAL HISTORY OF COMP OF PREG, CHLDBR 11/24/2017 THELMA FARAH APRN Ot Z88.0 ALLERGY STATUS TO PENICILLIN 11/24/2017 THELMA FARAH APRN Ot Z88.5 ALLERGY STATUS TO NARCOTIC AGENT STATUS 11/24/2017 THELMA FARAH APRN Ot Z88.8 ALLERGY STATUS TO OTH DRUG/MEDS/BIOL SUB 11/24/2017 THELMA FARAH APRN Ot Z98.51 TUBAL LIGATION STATUS 12/01/2017 MIRELLA MCMILLAN METAL TEMPLATE MAKER Ot R91.8 OTHER NONSPECIFIC ABNORMAL FINDING OF GIOVANNA 12/01/2017 MIRELLA MCMILLAN METAL TEMPLATE MAKER Ot Z72.0 TOBACCO USE 12/05/2017 SOTERO HUIZAR METAL TEMPLATE MAKER Ot I70.0 ATHEROSCLEROSIS OF AORTA 12/05/2017 SOTERO HUIZAR METAL TEMPLATE MAKER Ot I70.90 UNSPECIFIED ATHEROSCLEROSIS 12/05/2017 SOTERO HUIZAR METAL TEMPLATE MAKER Ot K43.9 VENTRAL HERNIA WITHOUT OBSTRUCTION OR GA 12/05/2017 SOTERO HUIZAR METAL TEMPLATE MAKER Ot K76.0 FATTY (CHANGE OF) LIVER, NOT ELSEWHERE C 12/05/2017 SOTERO HUIZAR METAL TEMPLATE MAKER Ot N39.0 URINARY TRACT INFECTION, SITE NOT SPECIF 12/05/2017 SOTERO HUIZAR METAL TEMPLATE MAKER Ot I70.0 ATHEROSCLEROSIS OF AORTA 12/05/2017 SOTERO HUIZAR METAL TEMPLATE MAKER Ot I70.90 UNSPECIFIED ATHEROSCLEROSIS 12/05/2017 SOTERO HUIZAR METAL TEMPLATE MAKER Ot K43.9 VENTRAL HERNIA WITHOUT OBSTRUCTION OR GA 12/05/2017 SOTERO HUIZAR METAL TEMPLATE MAKER Ot K76.0 FATTY (CHANGE OF) LIVER, NOT ELSEWHERE C 12/05/2017 SOTERO HUIZAR METAL TEMPLATE MAKER Ot N39.0 URINARY TRACT INFECTION, SITE NOT SPECIF 12/07/2017 MAGDA MARTINEZ Ot D72.829 ELEVATED WHITE BLOOD CELL COUNT, UNSPECI 12/07/2017 MAGDA MARTINEZP Ot E11.9 TYPE 2 DIABETES MELLITUS WITHOUT COMPLIC 12/07/2017 MAGDA MARTINEZP Ot E78.00 PURE HYPERCHOLESTEROLEMIA, UNSPECIFIED 12/07/2017 MAGDA MARTINEZP Ot F17.210 NICOTINE DEPENDENCE, CIGARETTES, UNCOMPL 12/07/2017 MAGDA MARTINEZ CLOUD AUTOMATION TESTER Ot F41.0 PANIC DISORDER [EPISODIC PAROXYSMAL ANXI 12/07/2017 MAGDA MARTINEZP Ot G43.909 MIGRAINE, UNSP, NOT INTRACTABLE, WITHOUT 12/07/2017 MICHELLE MAGDA CLOUD AUTOMATION TESTER Ot I10 ESSENTIAL (PRIMARY) HYPERTENSION 12/07/2017 MAGDA MARTINEZP Ot K21.9 GASTRO-ESOPHAGEAL REFLUX DISEASE WITHOUT 12/07/2017 MAGDA MARTINEZ CLOUD AUTOMATION TESTER Ot 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 12/07/2017 MAGDA MARTINEZP Ot Z79.82 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 OF ASPIRIN 12/07/2017 MAGDA MARTINEZ CLOUD AUTOMATION TESTER Ot Z80.0 FAMILY HISTORY OF MALIGNANT NEOPLASM OF 12/07/2017 MAGDA MARTINEZ CLOUD AUTOMATION TESTER Ot Z82.49 FAMILY HX OF ISCHEM HEART DIS AND OTH DI 12/07/2017 MAGDA MARTINEZ CLOUD AUTOMATION TESTER Ot Z86.73 PRSNL HX OF TIA (TIA), AND CEREB INFRC W 12/07/2017 MAGDA MARTINEZ CLOUD AUTOMATION TESTER Ot Z87.19 PERSONAL HISTORY OF OTHER DISEASES OF TH 12/07/2017 MAGDA MARTINEZP Ot Z87.440 PERSONAL HISTORY OF URINARY (TRACT) INFE 12/07/2017 MAGDA MARTINEZ CLOUD AUTOMATION TESTER Ot Z88.0 ALLERGY STATUS TO PENICILLIN 12/07/2017 MAGDA MARTINEZ CLOUD AUTOMATION TESTER Ot Z88.5 ALLERGY STATUS TO NARCOTIC AGENT STATUS 12/07/2017 MAGDA MARTINEZ CLOUD AUTOMATION TESTER Ot Z88.8 ALLERGY STATUS TO OT DRUG/MEDS/BIOL SUB 12/07/2017 MAGAD MARTINEZ CLOUD AUTOMATION TESTER Ot Z98.51 TUBAL LIGATION STATUS 12/07/2017 MAGDA MARTINEZP Ot Z98.890 OTHER SPECIFIED POSTPROCEDURAL STATES 12/08/2017 YUKO GARRETT MD Ot I10 ESSENTIAL (PRIMARY) HYPERTENSION 12/08/2017 YUKO GARRETT MD Ot J44.9 CHRONIC OBSTRUCTIVE PULMONARY DISEASE, U 12/08/2017 YUKO GARRETT MD Ot K21.9 GASTRO-ESOPHAGEAL REFLUX DISEASE WITHOUT 12/08/2017 YUKO GARRETT MD Ot R07.9 CHEST PAIN, UNSPECIFIED 12/09/2017 MAGDA MARTINEZP Ot D72.829 ELEVATED WHITE BLOOD CELL COUNT, UNSPECI 12/09/2017 MAGDA MARTINEZ CLOUD AUTOMATION TESTER Ot E11.9 TYPE 2 DIABETES MELLITUS WITHOUT COMPLIC 12/09/2017 MICHELLE MAGDA CLOUD AUTOMATION TESTER Ot E78.00 PURE HYPERCHOLESTEROLEMIA, UNSPECIFIED 12/09/2017 MICHELLE, MAGDA CLOUD AUTOMATION TESTER Ot F17.210 NICOTINE DEPENDENCE, CIGARETTES, UNCOMPL 12/09/2017 MICHELLE MAGDA CLOUD AUTOMATION TESTER Ot F41.0 PANIC DISORDER [EPISODIC PAROXYSMAL ANXI 12/09/2017 MICHELLE MAGDA CLOUD AUTOMATION TESTER Ot G43.909 MIGRAINE, UNSP, NOT INTRACTABLE, WITHOUT 12/09/2017 MICHELLE MAGDA CLOUD AUTOMATION TESTER Ot I10 ESSENTIAL (PRIMARY) HYPERTENSION 12/09/2017 MICHELLE MAGDA CLOUD AUTOMATION TESTER Ot K21.9 GASTRO-ESOPHAGEAL REFLUX DISEASE WITHOUT 12/09/2017 MICHELLE MAGDA CLOUD AUTOMATION TESTER Ot Z79.02 [facility] (CURRENT) USE OF ANTITHROMBOTI 12/09/2017 MAGDA MARTINEZ CLOUD AUTOMATION TESTER Ot Z79.82 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 OF 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 12/09/2017 MICHELLE MAGDA CLOUD AUTOMATION TESTER Ot Z80.0 FAMILY HISTORY OF MALIGNANT NEOPLASM OF 12/09/2017 MAGDA MARTINEZ CLOUD AUTOMATION TESTER Ot Z82.49 FAMILY HX OF ISCHEM HEART DIS AND OTH DI 12/09/2017 MAGDA MARTINEZ CLOUD AUTOMATION TESTER Ot Z86.73 PRSNL HX OF TIA (TIA), AND CEREB INFRC W 12/09/2017 MICHELLE MAGDA CLOUD AUTOMATION TESTER Ot Z87.19 PERSONAL HISTORY OF OTHER DISEASES OF TH 12/09/2017 MAGDA MARTINEZ CLOUD AUTOMATION TESTER Ot Z87.440 PERSONAL HISTORY OF URINARY (TRACT) INFE 12/09/2017 MICHELLE MAGDA CLOUD AUTOMATION TESTER Ot Z88.0 ALLERGY STATUS TO PENICILLIN 12/09/2017 MICHELLE MAGDA CLOUD AUTOMATION TESTER Ot Z88.5 ALLERGY STATUS TO NARCOTIC AGENT STATUS 12/09/2017 MAGDA MARTINEZ CLOUD AUTOMATION TESTER Ot Z88.8 ALLERGY STATUS TO [facility] DRUG/MEDS/BIOL SUB 12/09/2017 MAGDA MARTINEZ Ot Z98.51 TUBAL LIGATION STATUS 12/09/2017 MAGDA MARTINEZ Ot Z98.890 OTHER SPECIFIED POSTPROCEDURAL STATES 12/28/2017 SOTERO HUIZAR APRN Ot I70.0 ATHEROSCLEROSIS OF AORTA 12/28/2017 SOTERO HUIZAR METAL TEMPLATE MAKER Ot I70.90 UNSPECIFIED ATHEROSCLEROSIS 12/28/2017 SOTERO HUIZAR METAL TEMPLATE MAKER Ot K43.9 VENTRAL HERNIA WITHOUT OBSTRUCTION OR GA 12/28/2017 SOTERO HUIZAR METAL TEMPLATE MAKER Ot K76.0 FATTY (CHANGE OF) LIVER, NOT ELSEWHERE C 12/28/2017 SOTERO HUIZAR APRN Ot N39.0 URINARY TRACT INFECTION, SITE NOT SPECIF Procedures There is no data. Results Test [...] Vitamin D, 25-Hydroxy 7.8 ng/mL 30.0-100.0 Thyroid Melfa Profile - 03/16/16 11:24 TSH 1.490 uIU/mL [...] culture - 08/16/16 15:00 Bacterial urine culture [id number] NRG COLONY COUNT 10,000/ML - 100,000/ML NRG [...] 14.5 ng/mL 30.0-100.0 Vitamin D, 25-Hydroxy - 10/19/17 14:50 Vitamin D, 25-Hydroxy 14.5 ng/mL 30.0-100.0 [...] 10.8 fL 7.5-12.5 ABSOLUTE NEUTROPHILS 7155 cells/uL 5368-5538 ABSOLUTE LYMPHOCYTES 4211 cells/uL 850-3900 ABSOLUTE MONOCYTES [...] platelet poor plasma (mass/volume) 0.40 ug/mL 0.00-0.49 PANEL (PROFILE 1) - 09/23/17 11:11 Prescribed [...] NEGATIVE ng/mL <25 medMATCH Phencyclidine CONSISTENT NRG Bacterial urine culture - 11/24/17 17:15 Bacterial urine culture SEE COMMEN NRG COLONY COUNT . NRG Tick identification panel - 11/24/17 17:15 Serum Ehrlichia chaffeensis IgG antibody detection <1:16 <1:16 Serum Ehrlichia chaffeensis IgM antibody detection <1:10 <1:10 Serum Rickettsia rickettsii IgG antibody assay (units/volume) < <1:16 [place] spotted fever panel < <1:10 Francisella tularensis antibody assay <1:20 NRG LYME AB G M 0.07 % 0.00-0.89 Interpretation of Lyme disease antibody assay Negative Negative STOOL (FECAL FAT) - 12/13/17 16:52 TOTAL SPECIMEN WEIGHT TNP g NRG STOOL (C-DIFF) - 12/13/17 16:52 CLOSTRIDIUM DIFFICILE TOXIN/GDH W/REFL TO PCR SEE NOTE NRG STOOL FECAL FAT, QUAL - 12/13/17 16:52 CLOSTRIDIUM DIFFICILE TOXINB,QL REAL TIME PCR - 12/13/17 16:52 CLOSTRIDIUM DIFFICILE TOXINB,QL REAL TIME PCR DETECTED NOT DETECTED CULTURE, STOOL - 12/13/17 16:52 SALMONELLA AND SHIGELLA, CULTURE SEE NOTE NRG CBC - 01/03/18 09:48 WHITE BLOOD CELL COUNT 11.2 Thousand/uL 3.8-10.8 RED BLOOD CELL COUNT 4.77 Million/uL 3.80-5.10 HEMOGLOBIN 14.4 g/dL 11.7-15.5 HEMATOCRIT 44.8 % 35.0-45.0 MCV 93.9 fL 80.0-100.0 MCH 30.2 pg 27.0-33.0 MCHC 32.1 g/dL 32.0-36.0 RDW 12.9 % 11.0-15.0 PLATELET COUNT 297 Thousand/uL 140-400 MPV 11.1 fL 7.5-12.5 ABSOLUTE NEUTROPHILS 7358 cells/uL 3014-3131 ABSOLUTE LYMPHOCYTES 2912 cells/uL 850-3900 ABSOLUTE MONOCYTES 672 cells/uL 200-950 ABSOLUTE EOSINOPHILS 168 cells/uL 15-500 ABSOLUTE BASOPHILS 90 cells/uL 0-200 NEUTROPHILS 65.7 % NRG LYMPHOCYTES 26.0 % NRG MONOCYTES 6.0 % NRG EOSINOPHILS 1.5 % NRG BASOPHILS 0.8 % NRG Complete blood count (CBC) with automated white blood cell (WBC) differential - 01/23/18 16:25 Blood leukocytes automated count (number/volume) 12.7 10*3/uL 4.3-11.0 Blood erythrocytes automated count (number/volume) 4.84 10*6/uL 4.35-5.85 Venous blood hemoglobin measurement (mass/volume) 14.5 g/dL 11.5-16.0 Blood hematocrit (volume fraction) 46 % 35-52 Automated erythrocyte mean corpuscular volume 94 [foz_us] 80-99 Automated erythrocyte mean corpuscular hemoglobin (mass per erythrocyte) 30 pg 25-34 Automated erythrocyte mean corpuscular hemoglobin concentration measurement ( mass/volume) 32 g/dL 32-36 Automated erythrocyte distribution width ratio 14.1 % 10.0-14.5 Automated blood platelet count (count/volume) 278 10*3/uL 130-400 Automated blood platelet mean volume measurement 11.4 [foz_us] 7.4-10.4 Automated blood neutrophils/100 leukocytes 65 % 42-75 Automated blood lymphocytes/100 leukocytes 26 % 12-44 Blood monocytes/100 leukocytes 7 % 0-12 Automated blood eosinophils/100 leukocytes 1 % 0-10 Automated blood basophils/100 leukocytes 1 % 0-10 Blood neutrophils automated count (number/volume) 8.2 10*3 1.8-7.8 Blood lymphocytes automated count (number/volume) 3.4 10*3 1.0-4.0 Blood monocytes automated count (number/volume) 0.9 10*3 0.0-1.0 Automated eosinophil count 0.1 10*3/uL 0.0-0.3 Automated blood basophil count (count/volume) 0.1 10*3/uL 0.0-0.1 Serum or plasma choriogonadotropin ( test) detection - 01/23/18 16:25 Serum or plasma choriogonadotropin ( test) detection NEGATIVE NEGATIVE Comprehensive metabolic panel - 01/23/18 16:25 Serum or plasma sodium measurement (moles/volume) 135 mmol/L 135-145 Serum or plasma potassium measurement (moles/volume) 3.9 mmol/L 3.6-5.0 Serum or plasma chloride measurement (moles/volume) 94 mmol/L 98-107 Carbon dioxide 27 mmol/L 21-32 Serum or plasma anion gap determination (moles/volume) 14 mmol/L 5-14 Serum or plasma urea nitrogen measurement (mass/volume) 8 mg/dL 7-18 Serum or plasma creatinine measurement (mass/volume) 0.78 mg/dL 0.60-1.30 Serum or plasma urea nitrogen/creatinine mass ratio 10 NRG Serum or plasma creatinine measurement with calculation of estimated glomerular filtration rate > NRG Serum or plasma glucose measurement (mass/volume) 343 mg/dL 70-105 Serum or plasma calcium measurement (mass/volume) 9.6 mg/dL 8.5-10.1 Serum or plasma total bilirubin measurement (mass/volume) 0.7 mg/dL 0.1-1.0 Serum or plasma alkaline phosphatase measurement (enzymatic activity/volume) 210 U/L 40-136 Serum or plasma aspartate aminotransferase measurement (enzymatic activity/ volume) 56 U/L 5-34 Serum or plasma alanine aminotransferase measurement (enzymatic activity/volume ) 25 U/L 0-55 Serum or plasma protein measurement (mass/volume) 8.2 g/dL 6.4-8.2 Serum or plasma albumin measurement (mass/volume) 3.9 g/dL 3.2-4.5 CALCIUM CORRECTED 9.7 mg/dL 8.5-10.1 Serum or plasma amylase measurement (enzymatic activity/volume) - 01/23/18 16: 25 Serum or plasma amylase measurement (enzymatic activity/volume) 83 U /L 25-125 Lipase - 01/23/18 16:25 Lipase 133 U/L 8-78 Encounters ACCT No. Visit Date/Time Discharge Status Pt. Type Provider Facility Loc./Unit Complaint [id number] 12/19/2017 08:22:00 12/19/2017 23:59:59 CLS Preadmit YASMEEN WRIGHT, IGOR [facility] ONC [id number] 12/07/2017 16:31:00 12/07/2017 18:45:00 DIS Emergency MAGDA MARTINEZ [facility] ER DIZZINESS/NAUSEA [id number] 12/05/2017 15:42:00 12/05/2017 23:59:59 CLS Outpatient SOTERO HUIZAR APRN [facility] RAD FLANK PAIN [id number] 11/24/2017 16:54:00 11/24/2017 18:08:00 DIS Emergency THELMA FARAH APRN [facility] ER DIZZINESS;NAUSEA;TICK BITE [id number] 11/04/2017 08:02:00 11/04/2017 09:00:00 DIS Emergency ASIF WRIGHT, BILLY Baeza [facility] ER HURTS WHEN URINATING [id number] 09/30/2017 12:57:00 09/30/2017 23:59:59 CLS Outpatient YUKO GARRETT MD [facility] CARD CHEST PAIN SYNDROME,GERD ,HTN,COPD [id number] 09/19/2017 13:29:00 09/19/2017 23:59:59 CLS Outpatient YUKO GARRETT MD [facility] CARD CHEST PAIN SYNDROME,GERD ,HTN,COPD [id number] 09/19/2017 13:11:00 09/19/2017 23:59:59 CLS Preadmit YUKO GARRETT MD [facility] CARD CHEST PAIN SYNDROME,GERD ,HTN,COPD [id number] 09/15/2017 09:16:00 09/15/2017 12:28:00 DIS Emergency JULIENNE CLEVELAND MD [facility] ER CP,STRAIN IN BACK,SOB [id number] 08/16/2017 20:47:00 08/16/2017 21:52:00 DIS Emergency THELMA FARAH METAL TEMPLATE MAKER [facility] ER RUSSELL;NECK PAIN [id number] 06/23/2017 06:43:00 06/23/2017 23:59:59 CLS Outpatient SOTERO HUIZAR METAL TEMPLATE MAKER [facility] RAD RUQ PAIN [id number] 04/28/2017 09:51:00 04/28/2017 23:59:59 CLS Outpatient MIRELLA MCMILLAN METAL TEMPLATE MAKER [facility] RAD R91.1,Z72.0 [id number] 04/27/2017 09:42:00 04/27/2017 23:59:59 CLS Outpatient MIRELLA MCMILLAN METAL TEMPLATE MAKER [facility] RT I44.9 COPD [id number] 04/16/2017 22:16:00 04/17/2017 01:15:00 DIS Emergency RICHARD WRIGHT, GWEN Blank [facility] ER CHEST PAIN AND BACK PAIN FROM DRY COUGH [id number] 04/05/2017 09:16:00 04/05/2017 23:59:59 CLS Outpatient MIRELLA MCMILLAN METAL TEMPLATE MAKER [facility] RAD R91.1 LUNG NODULE [id number] 03/29/2017 10:15:00 03/29/2017 23:59:59 CLS Preadmit SOTERO HUIZAR SABA [facility] RAD LUNG NODULE INCREASING IN SIZE [id number] 03/21/2017 00:21:00 03/21/2017 23:59:59 CLS Preadmit IGOR ARANA MD [facility] ONC [id number] 12/20/2016 15:01:00 03/20/2017 00:01:00 DIS Outpatient IGOR ARANA MD [facility] ONC [id number] 03/12/2017 12:32:00 03/12/2017 16:27:00 DIS Emergency PRISCILLA HUNT [facility] ER ABD PAIN, SHAKY, 4 PREVIOUS BRAIN-STEM FLORES [id number] 11/09/2016 20:08:00 11/09/2016 23:58:00 DIS Emergency AKBAR EVANS MD [facility] ER DIZZINESS,NAUSEA [id number] 06/29/2016 15:16:00 09/12/2016 00:01:00 DIS Outpatient GILBERT GOMEZ MD [facility] ONC [id number] 08/16/2016 13:54:00 08/16/2016 16:50:00 DIS Emergency PRISCILLA HUNT [facility] ER UTI [id number] 07/02/2016 10:14:00 07/02/2016 23:59:59 CLS Outpatient GILBERT GOMEZ MD [facility] RAD HEADACHE,DIZZINESS [id number] 12/18/2015 09:01:00 03/17/2016 00:01:00 DIS Outpatient GILBERT GOMEZ MD [facility] ONC [id number] 09/18/2015 12:52:00 10/29/2015 00:01:00 DIS Outpatient GILBERT GOMEZ MD [facility] ONC [id number] 09/12/2015 20:37:00 2015 01:00:00 DIS Emergency JOSE ADLER DO [facility] ER DIZZINESS [id number] 09/10/2015 01:28:00 09/10/2015 03:57:00 DIS Emergency AKBAR EVANS MD [facility] ER RUSSELL,BLURRY EYES,BLOOD SUGAR HIGH,DIZZY [id number] 07/24/2015 09:02:00 07/24/2015 23:59:59 CLS Outpatient GILBERT GOMEZ MD [facility] ONC [id number] 05/23/2015 23:06:00 05/24/2015 00:31:00 DIS Emergency RONAN SOTO MD [facility] ER FULL BODY TINGLING/ NUMBNESS [id number] 05/22/2015 13:58:00 05/22/2015 16:11:00 DIS Emergency THELMA FARAH APRN [facility] ER DIZZINESS LIPS NUMBNESS [id number] 04/28/2015 11:14:00 04/28/2015 23:59:59 CLS Outpatient PASTOR CISNEROS MD [facility] RAD CALF PAIN,HEADACHES, DIABETES [id number] 03/28/2015 22:08:00 03/28/2015 23:59:59 CLS Emergency JOSE ADLER DO [facility] ER DIZZINESS,FACIAL NUMBNESS [id number] 03/24/2015 10:00:00 03/24/2015 23:59:59 CLS [facility]read[facility] [id number] 12/23/2014 17:00:00 03/23/2015 00:01:00 DIS Outpatient [facility] DIABETES [id number] 03/21/2015 10:24:00 03/21/2015 23:59:59 CLS Outpatient PASTOR CISNEROS MD [facility] LAB TYPE 2 DIABETES INSULIN DEPENDENT [id number] 01/15/2015 08:11:00 01/15/2015 23:59:59 CLS Outpatient YUKO GARRETT MD [facility] CARD CPS,HTN,PALPITATIONS, SOB [id number] 12/02/2014 10:00:00 12/18/2014 00:01:00 DIS Outpatient PASTOR [facility]OS [facility] 2 DIABETES [id number] 07/25/2014 08:49:00 10/23/2014 00:01:00 DIS Outpatient GILBERT GOMEZ MD [facility] ONC [id number] 08/27/2014 15:20:00 08/27/2014 23:59:59 CLS Outpatient JACOB NEWSOME MD [facility] RAD FOLLOW UP PER RADIOLOGIST [id number] 08/26/2014 12:47:00 08/26/2014 23:59:59 CLS Outpatient JACOB NEWSOME MD [facility] RAD CEREBRAL ATHEROSCLEROSIS [id number] 07/23/2014 20:00:00 07/23/2014 23:59:59 CLS Preadmit YUKO GARRETT MD [facility] SLEEP SNORING,HTN,HX OF STROKE [id number] 07/18/2014 11:36:00 07/18/2014 15:39:00 DIS Emergency AKBAR EVANS MD [facility] ER DIZZINESS,NAUSEA [id number] 06/17/2014 08:15:00 06/17/2014 23:59:59 CLS Outpatient YUKO GARRETT MD [facility] CARD PALPITATIONS SOB HTN [id number] 01/24/2014 08:49:00 04/24/2014 00:01:00 DIS Outpatient GILBERT GOMEZ MD [facility] ONC [id number] 02/13/2014 10:00:00 03/29/2014 16:22:00 DIS Outpatient PASTOR CISNEROS MD [facility] REHAB CVA [id number] 11/22/2013 09:41:00 01/14/2014 00:01:00 DIS Outpatient PASTOR CISNEROS MD [facility] REHAB CVA [id number] 10/25/2013 10:49:00 01/09/2014 00:01:00 DIS Outpatient GILBERT GOMEZ MD [facility] ONC [id number] 12/18/2013 09:18:00 12/18/2013 23:59:59 CLS Outpatient PASTOR CISNEROS MD [facility] RAD CHOKING,TROUBLE SWALLOWING [id number] 12/14/2013 19:01:00 12/14/2013 20:23:00 DIS Emergency RONAN SOTO MD [facility] ER CONGESTION [id number] 10/04/2013 13:16:00 10/04/2013 23:59:59 CLS Outpatient PASTOR CISNEROS MD [facility] RAD NEUROLOGICAL CHANGES, RECENT STROKE [id number] 09/24/2013 18:13:00 09/28/2013 13:30:00 DIS Inpatient MICHELLE WRIGHT, SILVIA E [facility] IRF CVA [id number] 09/15/2013 14:10:00 09/18/2013 12:35:00 DIS Outpatient PASTOR CISNEROS MD [facility] SDC VERTIGO [id number] 09/07/2013 08:36:00 09/07/2013 23:59:59 CLS Outpatient PASTOR CISNEROS MD [facility] RT SEIZURE TYPE ACTIVITY [id number] 07/03/2013 12:37:00 07/03/2013 23:59:59 CLS Outpatient SULEMA HUDSON MD [facility] CARD CP,HTN [id number] 06/20/2013 08:30:00 06/20/2013 23:59:59 CLS Outpatient PASTOR CISNEROS MD [facility] LAB HYPOGLYCEMIA,FLUXUATING BLOOD SUGAR [id number] 06/08/2013 09:00:00 06/08/2013 23:59:59 CLS Outpatient SULEMA HUDSON MD [facility] CARD CP,HTN [id number] 05/21/2013 14:03:00 05/21/2013 23:59:59 CLS Outpatient PASTOR CISNEROS MD [facility] CARD HYPERTENSION,PERIPHERD EDEMA,SMOKER,CARDIMEGALY,CH [id number] 05/17/2013 21:44:00 05/17/2013 23:59:59 CLS Outpatient PASTOR CISNEROS MD [facility] LAB LIPID PANEL [id number] 05/17/2013 12:24:00 05/17/2013 23:59:59 CLS Outpatient PASTOR CISNEROS MD [facility] LAB EDEMA,FATIGUE,TACHYCARDIA ,JOINT PAIN [id number] 02/02/2013 14:11:00 02/23/2013 10:40:00 DIS Outpatient PASTOR CISNEROS MD [facility] REHAB NECK PAIN, UPPER BACK PAIN RADIATING LEFT SHOULDER [id number] 10/31/2012 14:21:00 10/31/2012 23:59:59 CLS Outpatient PASTOR CISNEROS MD [facility] RAD NECK PAIN,TENDERNESS RADIATING FROM ARM TO BACK OF [id number] 09/04/2012 08:56:00 09/04/2012 23:59:59 CLS Outpatient PASTOR CISNEROS MD [facility] RAD ABD PAIN,BLOATING R. SIDED FIRMNESS [id number] 09/01/2012 09:16:00 09/01/2012 10:45:00 DIS [facility]; MULTIPLE SCLEROSIS [id number] 07/18/2012 08:50:00 07/18/2012 23:59:59 CLS Outpatient PASTOR CISNEROS MD [facility] RAD FOLLOW UP ABD MRI [id number] 01/23/2018 15:52:00 ACT Emergency RENY MEJIA [facility] ER TREATED FOR C-DIFF/DIARRHEA/ABD AND RECTAL PAIN [id number] 11/04/2017 08:48:00 Document Registration [id number] 08/26/2014 12:46:00 Document Registration [id number] 05/19/2014 09:39:00 Document Registration [id number] 05/11/2014 19:49:00 Document Registration [id number] 06/26/2012 11:26:00 Document Registration [id number] 05/19/2012 09:58:00 Document Registration [id number] 04/20/2012 12:51:00 Document Registration [id number] 01/04/2012 12:04:00 Document Registration [id number] 12/31/2011 08:48:00 Document Registration [id number] 11/22/2011 22:34:00 Document Registration [id number] 10/08/2011 22:58:00 Document Registration [id number] 10/07/2011 13:12:00 Document Registration [id number] 07/26/2011 14:37:00 Document Registration [id number] 04/05/2011 08:01:00 Document Registration [id number] 02/03/2011 11:11:00 Document Registration [id number] 02/01/2011 11:54:00 Document Registration [id number] 12/08/2010 08:13:00 Document Registration [id number] 08/25/2009 10:44:00 Document Registration [id number] 03/17/2016 18:05:00 Document Registration [id number] 09/15/2016 17:09:00 Document Registration [id number] 10/27/2017 08:40:00 10/27/2017 23:59:59 [facility] SOTERO HUIZAR [facility] [id number] 01/03/2018 09:00:00 Document Registration [id number] 12/13/2017 16:00:00 Document Registration [id number] 09/23/2017 09:40:00 Document Registration [id number] 08/26/2017 11:20:00 Document Registration [id number] 08/19/2017 16:05:00 Document Registration [id number] 08/02/2017 08:20:00 Document Registration [id number] 06/23/2017 16:40:00 Document Registration [id number] 06/17/2017 14:40:00 Document Registration [id number] 05/11/2017 14:45:00 Document Registration [id number] 01/06/2017 14:00:00 Document Registration [id number] 01/07/2017 07:05:00 Document Registration [id number] 07/28/2016 19:07:00 Document Registration
--- NOTE | 2018-01-23 17:48 | Diagnostic Imaging Report ---
PROCEDURE: CT abdomen and pelvis with contrast. TECHNIQUE: Multiple contiguous axial images were obtained through the abdomen and pelvis after administration of intravenous contrast. INDICATION: Left lower quadrant abdominal pain with nausea Comparison is made to study of 12/05/2017. Similar to the previous study, there is essentially unchanged hepatomegaly with heterogeneous low-density throughout the liver parenchyma which may be due to geographic fatty infiltration. There is no significant biliary ductal dilatation. Gallbladder surgically absent. There is no evidence of pancreatic, adrenal gland or splenic lesion. The kidneys remain unremarkable. There is moderate aortoiliac atherosclerotic calcification. There is low level edema and/or inflammation at the root of the mesentery near the level of the inferior mesenteric artery. No focal fluid collection is identified. There are prominent follicles or cysts in the left ovary. No pelvic free fluid is identified. Partially opacified urinary bladder has a normal appearance. There is no evidence of appendiceal inflammation. Overall bowel gas pattern is unremarkable. There is a persistent anterior abdominal wall hernia containing fat and mild inflammation. No bowel hernia or obstruction is seen. IMPRESSION: Hepatomegaly with probable geographic fatty infiltration. Clinical correlation would be useful. If indicated, consideration could be given to followup imaging of the liver with CT or MRI to exclude other underlying lesion. Otherwise, there is mild edema and/or inflammation at the root of the mesentery along the course of inferior mesenteric artery. Inferior mesenteric artery is small and not well evaluated. Arteritis or partial thrombosis is not excluded. Persistent small anterior abdominal wall herniation of fat to the right of midline with possible mild edema and/or inflammation and absence of bowel within the sac. Dictated by: Dictated on workstation # [id number]
--- NOTE | 2018-01-23 18:16 | ED Abdominal Pain ---
General Chief Complaint: Abdominal/GI Problems Stated Complaint: TREATED FOR C-DIFF/DIARRHEA/ABD AND RECTAL PAIN Nursing Triage Note: Pt ambulated to rm 7 w/o difficulty. Pt carrying large gas station soda. Pt c/o hematuria, and "painful bowels" on entire L side. Pt stated pt was treated for c-diff twice and finished last treatment over a week ago. Pt describes BMs as normal, but contain mucous. Pt states symptoms have been going on for over a month Sepsis Screen: No Definite Risk Source of Information: Patient Exam Limitations: No Limitations History of Present Illness Date Seen by Provider: Jan 23, 2018 Time Seen by Provider: 16:00 Initial Comments Patient is a 47-year-old female who complaints of left-sided abdominal pain for one month. She reports that she's been treated for C. difficile over the course of the last month and finished her treatment one month ago and has had normal bowel movements since. She also reports that she has blood in her urine. She is drinking a large 44 ounce soda on arrival to the emergency room. Timing/Duration: 1-2 Days Severity/Quality: Moderate Location: LLQ Associated Symptoms: Other (hematuria) Allergies and Home Medications Allergies Coded Allergies: erythromycin base (Unverified Allergy, Mild, 11/11/08) Penicillins (Verified Allergy, Unknown, 11/14/08) codeine (Verified Allergy, Unknown, 11/14/08) nitrofurantoin (Verified Allergy, Unknown, 11/04/17) Home Medications Acetaminophen 325 Mg Tab, 650 MG PO Q4H PRN for mild pain or fever Prescribed by: ERNESTO SY on 09/28/13 0932 Alprazolam 0.25 Mg Tablet, 0.25 MG PO TID PRN for ANXIETY 1/2 or 1 every 8 hours as needed. Prescribed by: MAGDA MARTINEZ on 12/07/17 1841 Aspirin 81 Mg Tablet.dr, 81 MG PO DAILY, (Reported) Atorvastatin Calcium 80 Mg Tablet, 80 MG PO HS Prescribed by: CELIA ISAACS on 09/24/13 1850 Bisacodyl 10 Mg Supp, 10 MG KS DAILY PRN for CONSTIPATION Prescribed by: ERNESTO SY on 09/28/13 0932 Cefuroxime Axetil 250 Mg Tablet, 250 MG PO BID Prescribed by: THELMA FARAH on 11/24/17 180 Clopidogrel Bisulfate 75 Mg Tablet, 1 EACH PO DAILY Prescribed by: CELIA ISAACS on 09/24/131849 Diltiazem Hcl 30 Mg Tab, 30 MG PO Q8HR Prescribed by: ERNESTO SY on 09/28/13 0932 Hydrochlorothiazide 12.5 Mg Cap, 25 MG PO DAILY, (Reported) Hydrocodone Bit/Acetaminophen 1 Each Tablet, 1 EACH PO NEEDED, (Reported) Melatonin/Pyridoxine Hcl (B6) 1 Each Tab.mphase, 1 EACH PO HS, (Reported) Metoprolol Tartrate 25 Mg Tablet, 25 MG PO BID Prescribed by: ERNESTO SY on 09/28/1332 Nystatin 60 Ml Btl, 5 ML PO Q6H swish and swallow QID x5 days Prescribed by: THELMA FARAH on 05/11/142017 Omeprazole 40 Mg Capsule.dr, 40 MG PO DAILY, (Reported) Ondansetron 4 Mg Tab.rapdis, 4 MG SL Q4H PRN for NAUSEA/VOMITING Prescribed by: AKBAR BARROW on 09/10/15 0349 Ondansetron Hcl 4 Mg Tab, 4 MG SL Q4H FOR NAUSEA AND VOMITING Prescribed by: BLAIR DANIELS on 05/19/14 1128 Polyethylene Glycol 17 Gm Pack, 17 GM PO DAILY PRN for CONSTIPATION Prescribed by: CELIA ISAACS on 09/24/131849 Senna 1 Ea Tablet, 1 EA PO BID Prescribed by: ERNESTO SY on 09/28/1332 Patient Home Medication List Home Medication List Reviewed: Yes Review of Systems Review of Systems Constitutional: no symptoms reported, see HPI Gastrointestinal: See HPI, Abdominal Pain (left-sided abdominal pain) Genitourinary: See HPI, Hematuria All Other Systems Reviewed Negative Unless Noted: Yes Past Agppbco-Cnhiwo-Dtfnzj Hx Past Med/Social Hx: Reviewed Nursing Past Med/Soc Hx Patient Social History Alcohol Use: Denies Use Recreational Drug Use: No Smoking Status: Current Everyday Smoker Type Used: Cigarettes 2nd Hand Smoke Exposure: Yes Recent Foreign Travel: No Contact w/Someone Who Travel: No Recent Infectious Disease Expo: No Recent Hopitalizations: No Immunizations Up To Date Tetanus Booster (TDap): Unknown PED Vaccines UTD: No Date of Influenza Vaccine: Jan 07, 2017 Seasonal Allergies Seasonal Allergies: No Past Medical History Surgeries: Yes (egd, colonoscopy) Section, Gallbladder, Tubal Ligation Respiratory: No (l lung nodule) Cardiac: Yes High Cholesterol, Hypertension, Irregular Heartbeat Neurological: Yes (r sided numbness r/t previous stroke) Headaches /Migraines, Stroke, Vertigo Reproductive Disorders: Yes Female Reproductive Disorders: Endometriosis 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, 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 Sexually Transmitted Disease: No Genitourinary: Yes UTI-Chronic Gastrointestinal: Yes Gastroesophageal Reflux, Hiatal Hernia, Gall Bladder Disease Musculoskeletal: Yes Arthritis Endocrine: No Diabetes, Insulin dep HEENT: No Cancer: No Psychosocial: Yes Anxiety Integumentary: No Blood Disorders: Yes ("CLOTTING DISORDER", chronic leukocytosis) Adverse Reaction/Blood Tranf: No Family Medical History Reviewed Nursing Family Hx Cancer 19 MOTHER (THROAT CANCER) Family history: Hypertension 19 MOTHER History of - disorder G8 SISTER (SISTER HAD MS) Myocardial infarction 19 FATHER 19 MOTHER Stroke 19 MOTHER Heart Disease, Hypertension, Stroke Physical Exam Vital Signs Vital Signs - First Documented 01/23/18 16:02 Temp 98.2 Pulse 91 Resp 20 B/P (MAP) 133/82 (99) Pulse Ox 95 O2 Delivery Room Air Capillary Refill : Less Than 3 Seconds Height/Weight/BMI Height: 5'3.00" Weight: 193lbs. 0.0oz. 87.572386hx; 43.9 BMI Method:Stated General Appearance: WD/WN, no apparent distress Respiratory: chest non-tender, lungs clear, normal breath sounds, no respiratory distress, no accessory muscle use Cardiovascular: normal peripheral pulses, regular rate, rhythm, no edema, no gallop, no JVD, no murmur Gastrointestinal: normal bowel sounds, soft, no organomegaly, no pulsatile mass , tenderness (left lower quadrant tenderness) Neurologic/Psychiatric: alert, normal mood/affect, oriented x 3 Skin: normal color, warm/dry Progress/Results/Core Measures Results/Orders Lab Results Laboratory Tests Test 01/23/18 16:25 01/23/18 17:05 Range/Units White Blood Count 12.7 H 4.3-11.0 10^3/uL Red Blood Count 4.84 4.35-5.85 10^6/uL Hemoglobin 14.5 11.5-16.0 G/DL Hematocrit 46 35-52 % Mean Corpuscular Volume 94 80-99 FL Mean Corpuscular Hemoglobin 30 25-34 PG Mean Corpuscular Hemoglobin Concent 32 32-36 G/DL Red Cell Distribution Width 14.1 10.0-14.5 % Platelet Count 278 130-400 10^3/uL Mean Platelet Volume 11.4 H 7.4-10.4 FL Neutrophils (%) (Auto) 65 42-75 % Lymphocytes (%) (Auto) 26 12-44 % Monocytes (%) (Auto) 7 0-12 % Eosinophils (%) (Auto) 1 0-10 % Basophils (%) (Auto) 1 0-10 % Neutrophils # (Auto) 8.2 H 1.8-7.8 X 10^3 Lymphocytes # (Auto) 3.4 1.0-4.0 X 10^3 Monocytes # (Auto) 0.9 0.0-1.0 X 10^3 Eosinophils # (Auto) 0.1 0.0-0.3 10^3/uL Basophils # (Auto) 0.1 0.0-0.1 10^3/uL Sodium Level 135 135-145 MMOL/L Potassium Level 3.9 3.6-5.0 MMOL/L Chloride Level 94 L 98-107 MMOL/L Carbon Dioxide Level 27 21-32 MMOL/L Anion Gap 14 5-14 MMOL/L Blood Urea Nitrogen 8 7-18 MG/DL Creatinine 0.78 0.60-1.30 MG/DL Estimat Glomerular Filtration Rate > 60 BUN/Creatinine Ratio 10 Glucose Level 343 H 70-105 MG/DL Calcium Level 9.6 8.5-10.1 MG/DL Corrected Calcium 9.7 8.5-10.1 MG/DL Total Bilirubin 0.7 0.1-1.0 MG/DL Aspartate Amino Transf (AST/SGOT) 56 H 5-34 U/L Alanine Aminotransferase (ALT/SGPT) 25 0-55 U/L Alkaline Phosphatase 210 H 40-136 U/L Total Protein 8.2 6.4-8.2 GM/DL Albumin 3.9 3.2-4.5 GM/DL Amylase Level 83 25-125 U/L Lipase 133 H 8-78 U/L Serum Test, Qualitative NEGATIVE NEGATIVE Urine Color YELLOW Urine Clarity CLEAR Urine pH 7 5-9 Urine Specific Allen 1.010 L 1.016-1.022 Urine Protein 1+ H NEGATIVE Urine Glucose (UA) 4+ H NEGATIVE Urine Ketones NEGATIVE NEGATIVE Urine Nitrite NEGATIVE NEGATIVE Urine Bilirubin NEGATIVE NEGATIVE Urine Urobilinogen 1 NORMAL MG/DL Urine Leukocyte Esterase 1+ H NEGATIVE Urine RBC (Auto) NEGATIVE NEGATIVE Urine RBC NONE /HPF Urine WBC RARE /HPF Urine Squamous Epithelial Cells 5-10 /HPF Urine Crystals NONE /LPF Urine Bacteria FEW H /HPF Urine Casts NONE /LPF Urine Mucus NEGATIVE /LPF Urine Culture Indicated NO My Orders Orders - RENY MEJIA Comprehensive Metabolic Panel (01/23/18 16:09) Lipase (01/23/18 16:09) Amylase (01/23/18 16:09) Ua Culture If Indicated (01/23/18 16:09) Hcg,Qualitative Serum (01/23/18 16:09) Saline Lock/Iv-Start (01/23/18 16:09) Cbc With Automated Diff (01/23/18 16:09) Ct Abdomen/Pelvis W (01/23/18 17:03) Iohexol Injection (Omnipaque 350 Mg/Ml 1 (01/23/18 17:15) Contrast Received (Contrast Received) (01/23/18 17:15) Ns (Ivpb) (Sodium Chloride 0.9%) (01/23/18 17:15) Medications Given in ED Vital Signs/I&O 01/23/18 01/23/18 16:02 18:23 Temp 98.2 98.2 Pulse 91 82 Resp 20 15 B/P (MAP) 133/82 (99) 133/82 (99) Pulse Ox 95 96 O2 Delivery Room Air Room Air Blood Pressure Mean: 99 Progress Progress Note : Time: 18:00 Progress Note I spoke to Dr. Luciano at this time. He will follow the patient up in his office this week. He recommends having her continue her aspirin. She agrees with plans for discharge, plans for close follow-up, return precautions were given. Diagnostic Imaging Diagonstic Imaging: CT Plain Films/CT/US/NM/MRI: abdomen, pelvis Comments NAME: ARIEL BRYANT [facility] REC#: [id number] PT STATUS: DEP ER : 1970 PHYSICIAN: RENY MEJIA ADMIT DATE: 01/23/18/ER Signed Date of Exam: 01/23/18 CT ABDOMEN/PELVIS W PROCEDURE: CT abdomen and pelvis with contrast. TECHNIQUE: Multiple contiguous axial images were obtained through the abdomen and pelvis after administration of intravenous contrast. INDICATION: Left lower quadrant abdominal pain with nausea Comparison is made to study of 12/05/2017. Similar to the previous study, there is essentially unchanged hepatomegaly with heterogeneous low-density throughout the liver parenchyma which may be due to geographic fatty infiltration. There is no significant biliary ductal dilatation. Gallbladder surgically absent. There is no evidence of pancreatic, adrenal gland or splenic lesion. The kidneys remain unremarkable. There is moderate aortoiliac atherosclerotic calcification. There is low level edema and/or inflammation at the root of the mesentery near the level of the inferior mesenteric artery. No focal fluid collection is identified. There are prominent follicles or cysts in the left ovary. No pelvic free fluid is identified. Partially opacified urinary bladder has a normal appearance. There is no evidence of appendiceal inflammation. Overall bowel gas pattern is unremarkable. There is a persistent anterior abdominal wall hernia containing fat and mild inflammation. No bowel hernia or obstruction is seen. IMPRESSION: Hepatomegaly with probable geographic fatty infiltration. Clinical correlation would be useful. If indicated, consideration could be given to followup imaging of the liver with CT or MRI to exclude other underlying lesion. Otherwise, there is mild edema and/or inflammation at the root of the mesentery along the course of inferior mesenteric artery. Inferior mesenteric artery is small and not well evaluated. Arteritis or partial thrombosis is not excluded. Persistent small anterior abdominal wall herniation of fat to the right of midline with possible mild edema and/or inflammation and absence of bowel within the sac. Dictated by: Dictated on workstation # [id number] Dict: 01/23/18 1734 Trans: 01/23/182211 Interpreted by: SHASHI HILL MD Electronically signed by: SHASHI HILL MD 01/23/182211 Reviewed: Reviewed by Me, Reviewed/Discussed (Dr. Spencer) Departure Impression Primary Impression: Intermittent left lower quadrant abdominal pain Disposition: 01 HOME, SELF-CARE Condition: Stable/Unchanged Departure-Patient Inst. Decision time for Depature: 18:15 Referrals: [facility] (PCP/Family) Primary Care Physician SILVIA SPENCER DO Patient Instructions: Acute Abdomen (Belly Pain), Adult (DC) Add. Discharge Instructions: Continue your home medications as previously prescribed especially her Plavix and aspirin. Follow-up with Dr. Spencer within 1 week for recheck, call first thing tomorrow morning for an appointment time. Follow-up with [facility] within 1 week for recheck. Return back to the emergency room for any worsening symptoms or concerns as needed. All discharge instructions reviewed with patient and/or family. Voiced understanding. Copy Copies To 1: SILVIA SPENCER TRAVIS Jan 23, 2018 18:16
[2018-01-23 18:23] VITALS: BP 133/82
== END 2018-01-23 18:23 | disposition home or self-care (01) ==
LOC: EDUNIT# 15:50 → ER 15:52
DX: R10.32 Left lower quadrant pain (principal); I10 Essential (primary) hypertension; E78.00 Pure hypercholesterolemia, unspecified; G43.909 Migraine, unspecified, not intractable, without status migrainosus; E11.9 Type 2 diabetes mellitus without complications; F41.9 Anxiety disorder, unspecified; F17.210 Nicotine dependence, cigarettes, uncomplicated; Z87.440 Personal history of urinary (tract) infections; Z86.73 Personal history of transient ischemic attack (TIA), and cerebral infarction without residual deficits; Z88.1 Allergy status to other antibiotic agents; Z88.0 Allergy status to penicillin; Z88.5 Allergy status to narcotic agent; Z88.8 Allergy status to other drugs, medicaments and biological substances; Z79.82 Long term (current) use of aspirin; Z98.51 Tubal ligation status
CPT/HCPCS: 36415; 74177; 80053; 81000; 82150; 83690; 84703; 85025

== ENCOUNTER → 2018-01-27 | Outpatient (CLI) | payer MEDICARE, MEDICAID ==
[~2018-01-27] MED LIST changes: +CATHETER FLUSH 10 ML SYR IV PRN; +IOHEXOL 350 MG/ML 100 ML (OMNIPAQUE 350) VIAL IV ONE; +NS 250 ML (IVPB) BAG IV ONE; +RECEIVED CONTRAST (Hold Metformin) IV SCH
[2018-01-27 15:19] LABS: BUN/CREATININE RATIO 10; GFR ESTIMATED > 60
--- NOTE | 2018-01-27 17:11 | Diagnostic Imaging Report ---
CT ANGIO ABDOMEN/PELV W TECHNIQUE: Post contrast imaging of the abdomen and pelvis was performed after intravenous contrast administration. MIP reformats are created and submitted. INDICATION: Left lower quadrant pain. Abnormal inferior mesenteric artery on prior exam. COMPARISON: 01/23/2018. FINDINGS: The abdominal aorta is normal in caliber and without dissection. The celiac, superior mesenteric, bilateral renal, and inferior mesenteric arteries are patent. There remains mild induration surrounding the left inferior mesenteric artery but it appears to remain patent centrally. Marked hepatomegaly with diffuse hepatic steatosis is unchanged. No focal hepatic lesion is seen on this examination. The spleen and pancreas are normal. No adrenal mass. Kidneys enhance normally without mass lesion. Urinary bladder is decompressed. Uterus and ovaries are normal in appearance. No bowel obstruction or pericolonic inflammatory changes. No abdominal or pelvic lymphadenopathy. No concerning focal osseous lesions. IMPRESSION: 1. Mesenteric arteries remain patent centrally. There does remain mild stranding around the left inferior mesenteric artery but no central occlusion is present. 2. No diverticulitis or colitis. 3. Unchanged marked hepatomegaly with hepatic steatosis. Dictated by: Dictated on workstation # [id number]
== END ==
LOC: RAD 14:53
PROVIDERS: ATTEND Surgery
DX: K76.0 Fatty (change of) liver, not elsewhere classified (principal)
CPT/HCPCS: 36415; 74174; 82565; 84520; 87449

== ENCOUNTER 2018-02-02 19:34 | Emergency (ER) | payer MEDICARE, MEDICAID ==
[~2018-02-02] VITALS: Ht 160 cm; Wt 87.5 kg
[~2018-02-02 19:34] MED LIST changes: -CATHETER FLUSH 10 ML SYR IV PRN; -IOHEXOL 350 MG/ML 100 ML (OMNIPAQUE 350) VIAL IV ONE; -NS 250 ML (IVPB) BAG IV ONE; -RECEIVED CONTRAST (Hold Metformin) IV SCH
--- OUTSIDE RECORDS SUMMARY | 2018-02-02 19:40 | XMS REPORT | Clinical Summary ---
Author Author [facility] Organization [facility] Address Unknown Phone Unavailable Care Team Providers Care Appliance Sales Associate Name Role Phone Unknown, Unknown Md PCP Unavailable Source Comments Some departments are not documenting in the electronic medical record. If you do not see the information that you expected, contact Release of Information in the Health Information Management department at [phone] for further assistance in locating additional records.[facility] Allergies Not on File Current Medications [...]
--- OUTSIDE RECORDS SUMMARY | 2018-02-02 19:41 | XMS REPORT ---
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 Name Role Phone GRISELDA JOYCETA Unavailable PROBLEMS Type Condition ICD9-CM Code LXD34-CJ Code Onset Dates Condition Status SNOMED Code Problem Tobacco abuse counseling Z71.6 Active 052632089 Problem History of CVA with residual deficit I69.30 Active 033011698 Problem Seasonal allergic rhinitis due to pollen J30.1 Active 26057782 Problem Panic disorder F41.0 Active 359507626 Problem Vitamin D deficiency E55.9 Active 00250688 Problem Abnormal drug screen R89.2 Active 611619973 Problem Type 2 diabetes mellitus with hyperglycemia E11.65 Active 54598551 Problem longterm current use of insulin Z79.4 Active 221657545 Problem Acute non intractable tension-type headache G44.209 Active 753069978 Problem Chronic pain syndrome G89.4 Active 485640570 Problem Generalized anxiety disorder F41.1 Active 18128333 Problem 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 Active 811548804 Problem Major depressive disorder, recurrent episode, moderate F33.1 Active 350759120 Problem Elevated liver enzymes R74.8 Active 146670578 Problem Gastroesophageal reflux disease, esophagitis presence not specified K21.9 Active 340053946 Problem Essential hypertension I10 Active 38515879 Problem DM (diabetes mellitus) with complications E11.8 Active 78161314 Problem Other chronic pain G89.29 Active 84491981 Problem Hyperlipidemia, unspecified hyperlipidemia type E78.5 Active 98582949 Problem Tobacco abuse Z72.0 Active 126584905 ALLERGIES No Information ENCOUNTERS Encounter Location Date Diagnosis [facility] [address] [facility] [id number] [address] Jan, Bronchitis J40 [facility] [address] [id number] [address] Jan, [place] [id number] [place] [address] 24480- 4914 Jan, [place] [address] 89703- 1503 17 Dec, 2017 Hyperlipidemia, unspecified hyperlipidemia type E78.5 [place] [id number] [place] [address] 12820- 4973 16 Dec, 2017 C. difficile diarrhea A04.72 and Bronchitis J40 [place] [address] [id number] [place] [address] 85017- 4009 Dec, [place] [address] 76606- 8054 28 Nov, 2017 C. difficile diarrhea A04.72 [place] [address] [id number] [place] [address] 03568- 8528 26 Nov, 2017 Panic disorder F41.0 [place] [id number] [place] [address] 30775- 3344 25 Nov, 2017 Diarrhea, unspecified type R19.7 [place] [id number] [place] [address] 35577- 5029 Nov, [place] [id number] [place] [address] 98785- 4654 Nov, Dysuria R30.0 ; Acute cystitis with hematuria N30.01 ; Flank pain R10.9 and Violation of controlled substance agreement Z91.14 [place] [id number] [place] [address] 14650- 1848 Oct, [facility] [id number] [place] [address] 82122 -5081 Oct, [facility] [id number] [place] [address] 79206 -4703 Oct, Dysuria R30.0 and Acute cystitis with hematuria N30.01 [place] [id number] [place] [address] 87964- 9722 Oct, [facility] [id number] [place] [address] 58874- 1713 Oct, [facility] [id number] [place] [address] 49033- 9488 Oct, Controlled substance agreement broken Z91.14 ; Violation of controlled substance agreement Z91.14 ; Other chronic pain G89.29 and Generalized anxiety disorder F41.1 [place] [address] 64662- 4932 Oct, [facility] [id number] [place] [address] 99229- 5466 Oct, [place] [id number] [place] [address] 65151- 9818 Sep, Abscess L02.91 [place] [address] 95453- 8698 Sep, [place] [address] [id number] [place] [address] 46300- 0614 Sep, DM (diabetes mellitus) with complications E11.8 ; Generalized anxiety disorder F41.1 and Chronic pain syndrome G89.4 [place] [id number] [place] [address] 58824- 2977 Sep, Generalized anxiety disorder F41.1 ; Chronic pain syndrome G89.4 ; Abnormal drug screen R89.2 and Other chest pain R07.89 [place] [address] [id number] [place] [address] 93855- 3100 Aug, Dysuria R30.0 [place] [id number] [place] [address] 15022- 5057 Aug, Generalized anxiety disorder F41.1 ; Chronic pain syndrome G89.4 and Dysuria R30.0 [place] [address] [id number] [place] [address] 31639- 3234 Aug, Acute cystitis with hematuria N30.01 and Candidal dermatitis B37.2 [place] [address] [address] 4445 Aug, Dysuria R30.0 [place] [id number] [place] [address] 91352- 3952 Aug, [facility] [id number] [place] [address] 55637 -0468 Aug, Dysuria R30.0 [place] [id number] [place] [address] 72569- 2197 Aug, [place] [id number] [place] [address] 22137- 7276 July, Cervicalgia M54.2 ; Acute non intractable tension-type headache G44.209 ; Type 2 diabetes mellitus with hyperglycemia E11.65 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 [place] [address] [id number] [place] [address] 24259- 9572 July, Generalized anxiety disorder F41.1 and Chronic pain syndrome G89.4 [place] [address] [id number] [place] [address] 38678- 6725 July, Abscess L02.91 [place] [id number] [place] [address] 97011- 1077 July, [place] [id number] [place] [address] 02619- 2170 July, [place] [address] [id number] [place] [address] 40139- 7232 July, Type 2 diabetes mellitus with hyperglycemia E11.65 ; longterm current use of insulin Z79.4 ; Elevated [...] pain syndrome G89.4 and Vaginal candidiasis B37.3 [place] [address] 54456- 3912 Jun, Generalized anxiety disorder F41.1 and Other chronic pain G89.29 [place] [address] 60784- 3156 Jun, [place] [address] 04812- 6621 Jun, [place] [address] 73244- 8076 Jun, Abnormal levels of other serum enzymes R74.8 [place] [address] 83751- 8968 Jun, Abnormal levels of other serum enzymes R74.8 [place] [address] 31017- 8471 Jun, Elevated liver enzymes R74.8 [place] [address] 71977- 8976 Jun, Elevated liver enzymes R74.8 [place] [address] 59329- 0807 May, Right upper quadrant pain R10.11 ; Cervicalgia M54.2 and High risk medication use Z79.899 [place] [address] [place] [address] [id number] [place] [address] 74492- 2922 May, Generalized anxiety disorder F41.1 and Other chronic pain G89.29 [place] [address] 19937- 8997 May, Canker sores oral K12.0 [place] [address] [id number] [place] [address] 04120- 0216 May, Generalized anxiety disorder F41.1 and Other chronic pain G89.29 [facility] [id number] [place] [address] 38309- 6025 May, [facility] [id number] [place] [address] 79059- 7357 Apr, [facility] [id number] [place] [address] 50571 -5628 Apr, Acute cystitis with hematuria N30.01 and Dysuria R30.0 [facility] [id number] [place] [address] 02946- 3641 Apr, [facility] [id number] [place] [address] 23756- 3151 Apr, [facility] [id number] [place] [address] 18522- 2681 Apr, DM (diabetes mellitus) with complications E11.8 [facility] [id number] [place] [address] 36325- 8655 06 Apr, 2017 DM (diabetes mellitus) with complications E11.8 [facility] [id number] [place] [address] 77115- 4777 Apr, [facility] [id number] [place] [address] 05497- 2992 Apr, [facility] [id number] [place] [address] 05891- 0692 Apr, Other chronic pain G89.29 ; Generalized anxiety disorder F41.1 ; Cervicalgia M54.2 and Controlled substance agreement signed Z79.899 [facility] [id number] [place] [address] 85777 -9215 Mar, Abdominal pain R10.9 and Viral gastroenteritis A08.4 [facility] [id number] [place] [address] 45418- 1518 Mar, [facility] [id number] [place] [address] 36342- 7837 Mar, [place] [id number] [place] [address] 92706- 1717 Mar, DM (diabetes mellitus) with complications E11.8 ; Type 2 diabetes mellitus with hyperglycemia E11.65 ; longterm current use of insulin Z79.4 ; Essential hypertension I10 ; Bronchitis J40 ; Major depressive disorder , recurrent episode, moderate F33.1 ; Hyperlipidemia, unspecified hyperlipidemia type E78.5 ; Tobacco abuse Z72.0 ; Tobacco abuse counseling Z71.6 ; History of CVA with residual deficit I69.30 ; Gastroesophageal reflux disease, esophagitis presence not specified K21.9 and 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 [place] [address] 14268- 2742 Mar, [place] [address] [id number] [place] [address] 49356- 0225 Mar, DM (diabetes mellitus) with complications E11.8 ; Abnormal lung sounds R09.89 ; Bronchitis J40 and Hyperlipidemia, unspecified hyperlipidemia type E78.5 [facility] [id number] [place] [address] 74682 -0221 Mar, URI, acute J06.9 [place] [id number] [place] [address] 47837- 8078 Mar, [place] [id number] [place] [address] 71738- 6819 Mar, DM (diabetes mellitus) with complications E11.8 [place] [address] [id number] [place] [address] 89865- 4890 Mar, Other chronic pain G89.29 and Generalized anxiety disorder F41.1 [place] [address] 28450- 6552 Feb, [place] [address] [place] [id number] [place] [address] 67607- 5589 Feb, Mass of left lung R91.8 and Cervicalgia M54.2 [place] [address] [place] [id number] [place] [address] 74934- 0801 Feb, [facility] [address] 18088- 1274 Feb, [facility] [address] 09919 -3491 Feb, Cough R05 and Bronchitis J40 [facility] [address] 00385 -2816 07 Feb, 2017 Acute nasopharyngitis J00 and Bronchitis J40 [facility] [address] 18147- 2681 Feb, Other chronic pain G89.29 and Generalized anxiety disorder F41.1 [place] [address] 58853- 5453 29 Jan, 2017 Encounter for immunization Z23 [facility] [address] 47808 -7655 Jan, [facility] [address] 65682 -5130 18 Jan, 2017 [place] [address] 81675- 0403 16 Jan, 2017 Canker sores oral K12.0 [place] [address] 41765- 4718 14 Jan, 2017 [facility] [address] 08568- 3459 07 Jan, 2017 Other chronic pain G89.29 and Generalized anxiety disorder F41.1 [facility] [address] 30269- 8414 06 Jan, 2017 Cough R05 and Bronchitis J40 [facility] [address] 98097 -0247 04 Jan, 2017 Bronchitis J40 [facility] [address] 99190- 8278 Dec, Vitamin D deficiency E55.9 [place] [address] [place] [id number] [place] [address] 24998- 3102 Dec, DM (diabetes mellitus) with complications E11.8 [place] [address] [id number] [place] [address] 11170- 1276 19 Dec, 2016 DM (diabetes mellitus) with complications E11.8 and Vitamin D deficiency E55.9 [place] [address] [place] [id number] [place] [address] 77051- 5015 10 Dec, 2016 DM (diabetes mellitus) with complications E11.8 ; Essential hypertension I10 ; Hyperlipidemia, unspecified hyperlipidemia type E78.5 ; Vitamin D deficiency E55.9 ; Gastroesophageal reflux disease, esophagitis presence not specified K21.9 ; 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 ; Other chronic pain G89.29 ; Encounter for immunization Z23 and Generalized anxiety disorder F41.[address] 69388- 0787 12 Nov, 2016 History of CVA with residual deficit I69.30 [place] [id number] [place] [address] 54483- 3456 11 Nov, 2016 DM (diabetes mellitus) with complications E11.8 [place] [address] [place] [address] [id number] [place] [address] 85667- 3989 06 Nov, 2016 Left otitis media with effusion H65.92 ; Bronchitis J40 and Canker sores oral K12.0 [place] [address] [place] [id number] [place] [address] 81545- 5667 Oct, [place] [address] [id number] [place] [address] 51170- 2717 Oct, DM (diabetes mellitus) with complications E11.8 [place] [address] [id number] [place] [address] 03400- 9992 Oct, [place] [id number] [place] [address] 48422- 1543 Sep, DM (diabetes mellitus) with complications E11.8 [facility] [id number] [place] [address] 73729- 1117 11 Sep, 2016 DM (diabetes mellitus) with complications E11.8 ; Essential hypertension I10 ; Gastroesophageal reflux disease, esophagitis presence not specified K21.9 ; Hyperlipidemia, unspecified hyperlipidemia type E78.5 ; Tobacco abuse Z72.0 ; Vitamin D deficiency E55.9 ; History of CVA with residual deficit I69.30 and Seasonal allergic rhinitis due to pollen J30.1 [facility] [address] 79363- 9718 Sep, [place] [address] 22921- 4434 Aug, [facility] [id number] [place] [address] 76589 -2009 Aug, Dysuria R30.0 ; Acute cystitis with hematuria N30.01 and Middle ear effusion, right H65.91 [place] [id number] [place] [address] 14649- 8302 Aug, Other complicated headache syndrome G44.59 [place] [address] 10864- 1933 Aug, DM (diabetes mellitus) with complications E11.8 [place] [address] [place] [id number] [place] [address] 17083- 1875 14 Aug, 2016 Dysuria R30.0 [place] [address] [place] [id number] [place] [address] 59200- 8412 Aug, Dysuria R30.0 [place] [id number] [place] [address] 36423- 8660 Aug, [place] [id number] [place] [address] 27817- 3631 July, [place] [id number] [place] [address] 21163- 0128 July, [place] [address] [id number] [place] [address] 83245- 9294 July, DM (diabetes mellitus) with complications E11.8 [facility] [id number] [place] [address] 57167- 7637 July, Other complicated headache syndrome G44.59 [facility] [id number] [place] [address] 74807- 9240 July, [facility] [id number] [place] [address] 85727 -8443 July, Dysuria R30.0 and Acute cystitis with hematuria N30.01 [facility] [id number] [place] [address] 12406- 6807 July, [facility] [id number] [place] [address] 76495- 1598 July, Other complicated headache syndrome G44.59 [facility] [id number] [place] [address] 19083 -8740 Jun, Exposure to strep throat Z20.818 and Acute upper respiratory infection, unspecified J06.9 [facility] [id number] [place] [address] 24690- 1967 Jun, [facility] [id number] [place] [address] 02714- 9230 Jun, DM (diabetes mellitus) with complications E11.8 and Gastroesophageal reflux disease, esophagitis presence not specified K21.9 [facility] [id number] [place] [address] 30754- 1791 Jun, [facility] [id number] [place] [address] 04780- 3105 Jun, Dizziness R42 [facility] [id number] [place] [address] 28044 -6665 Jun, [facility] [id number] [place] [address] 90165- 6276 Jun, [facility] [address] [address] -8683 May, Seasonal allergic rhinitis, unspecified allergic rhinitis trigger J30.2 [facility] [id number] [place] [address] 83321- 4300 May, [facility] [id number] [place] [address] 97224- 6521 May, DM (diabetes mellitus) with complications E11.8 [...] pollen J30.1 [facility] [id number] [place] [address] 22646- 7286 May, Gastroesophageal reflux disease, esophagitis presence not specified K21.9 [facility] [id number] [place] [address] 36122- 3737 May, [facility] [id number] [place] [address] 43312- 5365 Apr, [facility] [id number] [place] [address] 50858- 2916 Apr, [facility] [id number] [place] [address] 10873- 5440 Mar, [facility] [id number] [place] [address] 47625- 7255 Mar, [facility] [address] 64399- 4761 Mar, [facility] [id number] [place] [address] 15925- 5500 Mar, [facility] [address] [place] [place] [address]- 1603 Feb, [facility] [id number] [place] [address] 89831- 3274 Feb, [facility] [id number] [place] [address] 24570- 8530 Feb, [facility] [id number] [place] [address] 23196- 4050 Feb, Major depressive disorder, recurrent episode, moderate F33.1 ; Generalized anxiety disorder F41.1 ; Essential hypertension I10 ; DM ( diabetes mellitus) with complications E11.8 ; Hyperlipidemia, unspecified hyperlipidemia type E78.5 ; 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 and Gastroesophageal reflux disease, esophagitis presence not specified K21.9 [facility] [id number] [place] [address] 54341 -7806 Feb, Other viral agents as the cause of diseases classified elsewhere B97.89 and Acute upper respiratory infection, unspecified J06.9 [facility] [id number] [place] [address] 42441- 5009 Jan, [place] [id number] [place] [address] 17958- 9009 Jan, [facility] [id number] [place] [address] 03309 -3444 Jan, Acute bronchitis, unspecified organism J20.9 [facility] [id number] [place] [address] 73273- 9191 Jan, [facility] [id number] [place] [address] 35973- 3285 Jan, History of CVA with residual deficit I69.30 [facility] [id number] [place] [address] 58612- 1031 Jan, [facility] [id number] [place] [address] 82200- 7097 Jan, Acute bronchitis, unspecified organism J20.9 [place] [address] [address]- 8012 Jan, [place] [id number] [place] [address] 11199- 5838 Dec, History of CVA with residual deficit I69.30 [place] [id number] [place] [address] 34095- 3644 Dec, [place] [address] [id number] [place] [address] 19559- 0298 Dec, Other chronic pain G89.29 ; DM (diabetes mellitus) with complications E11.8 and History of CVA with residual deficit I69.30 [place] [id number] [place] [address] 06914- 0564 Nov, Major depressive disorder, recurrent episode, moderate F33.1 ; Irregular heart rhythm I49.9 ; Essential hypertension I10 ; History of CVA with residual deficit I69.30 ; DM (diabetes mellitus) with complications E11.8 ; Gastroesophageal reflux disease, esophagitis presence not specified K21.9 ; Hyperlipidemia, unspecified hyperlipidemia type E78.5 ; 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 ; Other chronic pain G89.29 and Generalized anxiety disorder F41.1 [id number] [place] [phone] Oct, Generalized anxiety disorder F41.1 ; Major depressive disorder, recurrent episode, moderate F33.1 ; Essential hypertension I10 ; History of CVA with residual deficit I69.30 ; DM (diabetes mellitus) with complications E11.8 ; Gastroesophageal reflux disease, esophagitis presence not specified K21.9 ; Hyperlipidemia, unspecified hyperlipidemia type E78.5 ; Other chronic pain G89.29 and Bacterial conjunctivitis of left eye H10.9 [id number] [place] [phone] Sep, Chronic pain syndrome G89.4 and DM (diabetes mellitus) with complications E11.8 [id number] [place] [address] Sep, Irregular heart rhythm I49.9 ; Routine health maintenance Z00.00 ; Essential hypertension I10 ; History of CVA with residual deficit I69.30 ; Gastroesophageal reflux disease, esophagitis presence not specified K21.9 ; DM (diabetes mellitus) with complications E11.8 ; Hyperlipidemia, unspecified hyperlipidemia type E78.5 and Other complicated headache syndrome G44.59 [place] [address] [address] 14 Jun, 2014 [place] [address] [address] Jun, [place] [address] [place] [address] Aug, [place] [address], [place] [address] Jun, IMMUNIZATIONS No Known Immunizations SOCIAL HISTORY Never Assessed REASON FOR VISIT refill request PLAN OF CARE VITAL SIGNS MEDICATIONS Medication Instructions Dosage Frequency Start Date End Date Duration Status Aspir-Low 81 mg TAKE ONE TABLET BY MOUTH DAILY 90 days Active RESULTS No Results PROCEDURES No Known procedures INSTRUCTIONS MEDICATIONS ADMINISTERED No Known Medications MEDICAL (GENERAL) HISTORY Type Description Date Medical History diabetes mellitus Medical History hyperlipidemia Medical History hypertension Medical History Anxiety disorder Medical History Blood Clotting Disorder- Dr Galvan at [facility] Medical History Possible Anemia (currently under work up) - Dr Galvan [facility] Medical History irregular heart beat-sees [...] Has been hospitalized at then transfered to [place]. 2014 Hospitalization History Child Hospitalization History abd pain and shakiness - [facility] ED visit [facility] Hospitalization History [facility] ED for URI 04/16/17 Hospitalization History via [facility] er 08/16/17
--- OUTSIDE RECORDS SUMMARY | 2018-02-02 19:41 | XMS REPORT ---
Author Author CHESTER JOYCE Organization [facility] Address [address] [place] [address] Care Team Providers Care Engineer Booster And Exhauster Name Role Phone GRISELDA JOYCETA Unavailable PROBLEMS Type Condition ICD9-CM Code FYT84-UV Code Onset Dates Condition Status SNOMED Code Problem Tobacco abuse counseling Z71.6 Active 068106461 Problem History of CVA with residual deficit I69.30 Active 092049844 Problem Seasonal allergic rhinitis due to pollen J30.1 Active 67563796 Problem Panic disorder F41.0 Active 951265933 Problem Vitamin D deficiency E55.9 Active 74171347 Problem Abnormal drug screen R89.2 Active 326641026 Problem Type 2 diabetes mellitus with hyperglycemia E11.65 Active 30954838 Problem longterm current use of insulin Z79.4 Active 235956073 Problem Acute non intractable tension-type headache G44.209 Active 713650062 Problem Chronic pain syndrome G89.4 Active 068741946 Problem Generalized anxiety disorder F41.1 Active 92710450 Problem 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 Active 832379325 Problem Major depressive disorder, recurrent episode, moderate F33.1 Active 978810971 Problem Elevated liver enzymes R74.8 Active 514825174 Problem Gastroesophageal reflux disease, esophagitis presence not specified K21.9 Active 601981954 Problem Essential hypertension I10 Active 35638875 Problem DM (diabetes mellitus) with complications E11.8 Active 24051794 Problem Other chronic pain G89.29 Active 12517508 Problem Hyperlipidemia, unspecified hyperlipidemia type E78.5 Active 51983889 Problem Tobacco abuse Z72.0 Active 554104766 ALLERGIES No Information ENCOUNTERS Encounter Location Date Diagnosis [facility] [address] [facility] [id number] [address] Jan, [facility] [address] [facility] [id number], [place] [address] Dec, Hyperlipidemia, unspecified hyperlipidemia type E78.5 [facility] [address] [place] [address] 90642- 8541 16 Dec, 2017 C. difficile diarrhea A04.72 and Bronchitis J40 [facility] [address] [place] [address] 28591- 9434 Dec, [facility] [id number] [place] [address] 09806- 8485 28 Nov, 2017 C. difficile diarrhea A04.72 [facility] [id number] [place] [address] 28991- 3813 26 Nov, 2017 Panic disorder F41.0 [facility] [id number] [place] [address] 93026- 9871 25 Nov, 2017 Diarrhea, unspecified type R19.7 [facility] [id number] [place] [address] 25618- 9049 19 Nov, 2017 [facility] [id number] [place] [address] 69187- 7310 13 Nov, 2017 Dysuria R30.0 ; Acute cystitis with hematuria N30.01 ; Flank pain R10.9 and Violation of controlled substance agreement Z91.14 [facility] [address] [address] 16 Oct, 2017 [facility] [address] [place] [address] 69034 -7720 Oct, [facility] [address] [place] [address] 43984 -8455 14 Oct, 2017 Dysuria R30.0 and Acute cystitis with hematuria N30.01 [place] [id number] [place] [address] 05559- 1441 09 Oct, 2017 [place] [address] [place] [address] 99412- 8597 Oct, [facility] [id number] [place] [address] 97216- 4524 Oct, Controlled substance agreement broken Z91.14 ; Violation of controlled substance agreement Z91.14 ; Other chronic pain G89.29 and Generalized anxiety disorder F41.1 [place] [id number] [place] [address] 98738- 3279 Oct, [facility] [address] 80197- 2049 Oct, [place] [address] 47819- 6837 Sep, Abscess L02.91 [place] [address] 01170- 6379 Sep, [facility] [address] 72080- 2964 Sep, DM (diabetes mellitus) with complications E11.8 ; Generalized anxiety disorder F41.1 and Chronic pain syndrome G89.4 [facility] [address] 00099- 4734 Sep, Generalized anxiety disorder F41.1 ; Chronic pain syndrome G89.4 ; Abnormal drug screen R89.2 and Other chest pain R07.89 [facility] [id number] [place] [address] 29559- 9668 Aug, Dysuria R30.0 [facility] [address] 07941- 4766 Aug, Generalized anxiety disorder F41.1 ; Chronic pain syndrome G89.4 and Dysuria R30.0 [place] [id number] [place] [address] 48539- 1552 Aug, Acute cystitis with hematuria N30.01 and Candidal dermatitis B37.2 [facility] [id number] [place] [address] 44202- 5355 Aug, Dysuria R30.0 [place] [address] 93325- 3249 Aug, [facility] [address] [place] [address] 05712 -5483 Aug, Dysuria R30.0 [facility] [id number] [place] [address] 09673- 4194 Aug, [facility] [address] 35360- 9400 July, Cervicalgia M54.2 ; Acute non intractable tension-type headache G44.209 ; Type 2 diabetes mellitus with hyperglycemia E11.65 and composite mechanic current use of insulin Z79.4 [place] [address] 86757- 2003 July, Generalized anxiety disorder F41.1 and Chronic pain syndrome G89.4 [facility] [address] 70445- 9725 July, Abscess L02.91 [facility] [address] 34409- 5371 July, [facility] [id number] [place] [address] 60994- 4448 July, [facility] [place] [id number] [place] [address] 51451- 4967 July, Type 2 diabetes mellitus with hyperglycemia E11.65 ; composite mechanic current use of insulin Z79.4 ; Elevated [...] pain syndrome G89.4 and Vaginal candidiasis B37.3 [place] [id number] [place] [address] 74257- 9160 Jun, Generalized anxiety disorder F41.1 and Other chronic pain G89.29 [facility] [address] [address] 2429 Jun, [facility] [id number] [place] [address] 02915- 8187 Jun, [facility] [id number] [place] [address] 50372- 6796 Jun, Abnormal levels of other serum enzymes R74.8 [facility] [id number] [place] [address] 48508- 5310 Jun, Abnormal levels of other serum enzymes R74.8 [facility] [place] [id number] [place] [address] 18330- 9275 Jun, Elevated liver enzymes R74.8 [place] [id number] [place] [address] 44856- 9043 Jun, Elevated liver enzymes R74.8 [facility] [id number] [place] [address] 22388- 0493 May, Right upper quadrant pain R10.11 ; Cervicalgia M54.2 and High risk medication use Z79.899 [facility] [id number] [place] [address] 79879- 3341 May, Generalized anxiety disorder F41.1 and Other chronic pain G89.29 [facility] [id number] [place] [address] 33886- 7642 May, Canker sores oral K12.0 [place] [address] [place] [address] 88993- 6336 May, Generalized anxiety disorder F41.1 and Other chronic pain G89.29 [facility] [id number] [place] [address] 68119- 1534 May, [facility] [id number] [place] [address] 17350- 2580 Apr, [facility] [address] [place] [address] 40232 -2536 Apr, Acute cystitis with hematuria N30.01 and Dysuria R30.0 [facility] [id number] [place] [address] 40399- 3563 Apr, [place] [id number] [place] [address] 15757- 1464 Apr, [place] [id number] [place] [address] 48411- 9765 Apr, DM (diabetes mellitus) with complications E11.8 [facility] [place] [id number] [place] [address] 48702- 1674 Apr, DM (diabetes mellitus) with complications E11.8 [facility] [id number] [place] [address] 71357- 9123 Apr, [place] [id number] [place] [address] 04202- 6597 Apr, [place] [id number] [place] [address] 97979- 5594 Apr, Other chronic pain G89.29 ; Generalized anxiety disorder F41.1 ; Cervicalgia M54.2 and Controlled substance agreement signed Z79.899 [facility] [id number] [place] [address] 98504 -1485 Mar, Abdominal pain R10.9 and Viral gastroenteritis A08.4 [facility] [place] [id number] [place] [address] 01302- 4456 Mar, [place] [address] 49633- 3821 Mar, [place] [id number] [place] [address] 52068- 2127 Mar, DM (diabetes mellitus) with complications E11.8 [...] not specified K21.9 and 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 02880- 6373 Mar, [place] [address] 27277- 7208 Mar, DM (diabetes mellitus) with complications E11.8 ; Abnormal lung sounds R09.89 ; Bronchitis J40 and Hyperlipidemia, unspecified hyperlipidemia type E78.5 [facility] [address] 81598 -7409 Mar, URI, acute J06.[address] 69020- 2347 Mar, [address] 59145- 0775 Mar, DM (diabetes mellitus) with complications E11.[address] 97953- 3696 Mar, Other chronic pain G89.29 and Generalized anxiety disorder F41.[address] 68477- 4375 Feb, [address] 05177- 8686 Feb, Mass of left lung R91.8 and Cervicalgia M54.[address] 67994- 8982 Feb, [place] [address] 67315- 3403 Feb, [facility] [address] 63531 -1310 11 Feb, 2017 Cough R05 and Bronchitis J40 [facility] [address] 39787 -9338 07 Feb, 2017 Acute nasopharyngitis J00 and Bronchitis J40 [facility] [address] 89801- 2083 06 Feb, 2017 Other chronic pain G89.29 and Generalized anxiety disorder F41.1 [facility] [address] 30279- 6674 29 Jan, 2017 Encounter for immunization Z23 [facility] [address] 56213 -3940 Jan, [facility] [address] 65956 -7388 18 Jan, 2017 [facility] [address] 03227- 7437 16 Jan, 2017 Canker sores oral K12.0 [place] [address] 63393- 0970 14 Jan, 2017 [place] [address] 60316- 7475 07 Jan, 2017 Other chronic pain G89.29 and Generalized anxiety disorder F41.1 [place] [address] 25268- 6181 06 Jan, 2017 Cough R05 and Bronchitis J40 [facility] [address] 16985 -0896 Jan, Bronchitis J40 [place] [address] 62710- 7688 Dec, Vitamin D deficiency E55.9 [facility] [address] 84053- 4503 Dec, DM (diabetes mellitus) with complications E11.8 [facility] [id number] [place] [address] 18650- 6180 19 Dec, 2016 DM (diabetes mellitus) with complications E11.8 and Vitamin D deficiency E55.9 [facility] [id number] [place] [address] 66644- 1625 10 Dec, 2016 DM (diabetes mellitus) with complications E11.8 ; Essential hypertension I10 ; Hyperlipidemia, unspecified hyperlipidemia type E78.5 ; Vitamin D deficiency E55.9 ; Gastroesophageal reflux disease, esophagitis presence not specified K21.9 ; 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 ; Other chronic pain G89.29 ; Encounter for immunization Z23 and Generalized anxiety disorder F41.[address] 17477- 4092 12 Nov, 2016 History of CVA with residual deficit I69.[address] 97881- 5418 11 Nov, 2016 DM (diabetes mellitus) with complications E11.8 [facility] [id number] [place] [address] 76438- 3460 06 Nov, 2016 Left otitis media with effusion H65.92 ; Bronchitis J40 and Canker sores oral K12.0 [place] [id number] [place] [address] 84167- 4260 14 Oct, 2016 [place] [id number] [place] [address] 20207- 8251 Oct, DM (diabetes mellitus) with complications E11.8 [place] [id number] [place] [address] 35455- 1487 Oct, [address] 93445- 9220 Sep, DM (diabetes mellitus) with complications E11.8 [place] [id number] [place] [address] 11593- 3501 Sep, DM (diabetes mellitus) with complications E11.8 ; Essential hypertension I10 ; Gastroesophageal reflux disease, esophagitis presence not specified K21.9 ; Hyperlipidemia, unspecified hyperlipidemia type E78.5 ; Tobacco abuse Z72.0 ; Vitamin D deficiency E55.9 ; History of CVA with residual deficit I69.30 and Seasonal allergic rhinitis due to pollen J30.1 [facility] [id number] [place] [address] 17954- 7272 Sep, [facility] [id number] [place] [address] 39827- 3585 Aug, [facility] [id number] [place] [address] 87980 -4746 Aug, Dysuria R30.0 ; Acute cystitis with hematuria N30.01 and Middle ear effusion, right H65.91 [facility] [id number] [place] [address] 29638- 6743 Aug, Other complicated headache syndrome G44.59 [place] [id number] [place] [address] 60935- 6051 Aug, DM (diabetes mellitus) with complications E11.8 [place] [id number] [place] [address] 67593- 8407 Aug, Dysuria R30.0 [place] [id number] [place] [address] 65227- 7340 Aug, Dysuria R30.0 [facility] [id number] [place] [address] 20603- 4286 Aug, [facility] [id number] [place] [address] 89937- 2210 July, [place] [id number] [place] [address] 04385- 1300 July, [place] [id number] [place] [address] 52306- 1742 July, DM (diabetes mellitus) with complications E11.8 [facility] [id number] [place] [address] 94083- 1943 July, Other complicated headache syndrome G44.59 [facility] [id number] [place] [address] 00567- 3405 July, [facility] [id number] [place] [address] 58096 -5287 July, Dysuria R30.0 and Acute cystitis with hematuria N30.01 [facility] [address] 97993- 8428 July, [facility] [address] 48766- 6119 July, Other complicated headache syndrome G44.59 [facility] [address] 34499 -0876 Jun, Exposure to strep throat Z20.818 and Acute upper respiratory infection, unspecified J06.9 [facility] [address] 48413- 2412 Jun, [facility] [address] 03225- 7048 Jun, DM (diabetes mellitus) with complications E11.8 and Gastroesophageal reflux disease, esophagitis presence not specified K21.9 [facility] [id number] [place] [address] 89028- 0020 Jun, [facility] [id number] [place] [address] 16137- 8909 Jun, Dizziness R42 [facility] [id number] [place] [address] 74143 -7937 Jun, [facility] [address] 82392- 8455 Jun, [facility] [id number] [place] [address] 57104 -0856 May, Seasonal allergic rhinitis, unspecified allergic rhinitis trigger J30.2 [facility] [address] 29556- 1305 May, [facility] [id number] [place] [address] 46159- 8063 May, DM (diabetes mellitus) with complications E11.8 [...] Seasonal allergic rhinitis due to pollen J30.1 [place] [address] 58486- 4527 May, Gastroesophageal reflux disease, esophagitis presence not specified K21.9 [facility] [id number] [place] [address] 49775- 2069 May, [facility] [id number] [place] [address] 43279- 9029 Apr, [facility] [id number] [place] [address] 97537- 8056 Apr, [facility] [id number] [place] [address] 39319- 2970 Mar, [facility] [id number] [place] [address] 27001- 7742 Mar, [facility] [id number] [place] [address] 61774- 3320 Mar, [facility] [id number] [place] [address] 71246- 0785 Mar, [facility] [id number] [place] [address] 387391- 8382 Feb, [facility] [id number] [place] [address] 715557- 9645 Feb, [facility] [address] [place] [address]- 4541 Feb, [place] [address] 70664- 4067 Feb, Major depressive disorder, recurrent episode, moderate F33.1 ; Generalized anxiety disorder F41.1 ; Essential hypertension I10 ; DM ( diabetes mellitus) with complications E11.8 ; Hyperlipidemia, unspecified hyperlipidemia type E78.5 ; 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 and Gastroesophageal reflux disease, esophagitis presence not specified K21.9 [facility] [id number] [place] [address] 15726 -2063 Feb, Other viral agents as the cause of diseases classified elsewhere B97.89 and Acute upper respiratory infection, unspecified J06.9 [place] [id number] [place] [address] 14367- 7277 Jan, [place] [address] 80235- 7555 Jan, [facility] [id number] [place] [address] 03149 -5814 Jan, Acute bronchitis, unspecified organism J20.9 [place] [id number] [place] [address] 60745- 1729 Jan, [place] [id number] [place] [address] 09634- 9395 Jan, History of CVA with residual deficit I69.30 [place] [id number] [place] [address] 11915- 4828 Jan, [place] [id number] [place] [address] 69832- 2953 Jan, Acute bronchitis, unspecified organism J20.9 [place] [id number] [place] [address] 72968- 9539 Jan, [place] [id number] [place] [address] 88514- 5312 Dec, History of CVA with residual deficit I69.30 [place] [address] [place] [address] 26973- 2336 Dec, [place] [id number] [place] [address] 47661- 1114 Dec, Other chronic pain G89.29 ; DM (diabetes mellitus) with complications E11.8 and History of CVA with residual deficit I69.30 [place] [id number] [place] [address] 62282- 4536 Nov, Major depressive disorder, recurrent episode, moderate F33.1 ; Irregular heart rhythm I49.9 ; Essential hypertension I10 ; History of CVA with residual deficit I69.30 ; DM (diabetes mellitus) with complications E11.8 ; Gastroesophageal reflux disease, esophagitis presence not specified K21.9 ; Hyperlipidemia, unspecified hyperlipidemia type E78.5 ; 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 ; Other chronic pain G89.29 and Generalized anxiety disorder F41.1 [place] [id number] [place] [address] 27830- 3884 Oct, Generalized anxiety disorder F41.1 ; Major depressive disorder, recurrent episode, moderate F33.1 ; Essential hypertension I10 ; History of CVA with residual deficit I69.30 ; DM (diabetes mellitus) with complications E11.8 ; Gastroesophageal reflux disease, esophagitis presence not specified K21.9 ; Hyperlipidemia, unspecified hyperlipidemia type E78.5 ; Other chronic pain G89.29 and Bacterial conjunctivitis of left eye H10.[address] [place] [address] 24443- 9479 Sep, Chronic pain syndrome G89.4 and DM (diabetes mellitus) with complications E11.8 [place] [id number] [place] [address] 37923- 2356 Sep, Irregular heart rhythm I49.9 ; Routine health maintenance Z00.00 ; Essential hypertension I10 ; History of CVA with residual deficit I69.30 ; Gastroesophageal reflux disease, esophagitis presence not specified K21.9 ; DM (diabetes mellitus) with complications E11.8 ; Hyperlipidemia, unspecified hyperlipidemia type E78.5 and Other complicated headache syndrome G44.59 [facility] [address] [facility] [id number] [place] [address]- 6249 Jun, [facility] [id number] [address]- 9101 Jun, [facility] [address] [facility] [id number], [place] [address]- 7516 Aug, [facility] [address] [facility] [id number], [place] [address]- 7889 Jun, IMMUNIZATIONS No Known Immunizations SOCIAL HISTORY [...] Blood Clotting Disorder- Dr Galvan at [facility] Medical History Possible Anemia (currently under work up) - Dr Galvan [facility] Medical History irregular heart beat-sees dr. hassan Medical History history of pancreatitis Medical History gerd Medical History History of CVA with residual deficit Medical History Other complicated headache syndrome Medical History Stokes syndrome Surgical History tubal ligation Surgical History section Surgical History cholecystectomy Surgical History Toe Nail Removal x2 Hospitalization History Brain Stem Strokes x5. Has been hospitalized at then transfered to [place]. 2014 Hospitalization History Child Hospitalization History abd pain and shakiness - [facility] ED visit [facility] Hospitalization History [facility] ED for URI 04/16/17 Hospitalization History via [facility] 08/16/17
--- OUTSIDE RECORDS SUMMARY | 2018-02-02 20:28 | XMS REPORT | Continuity of Care Document ---
Author Author Via [facility] Organization Via [facility] Address Unknown Phone Unavailable Allergies Active Description Code Type Severity Reaction Onset Reported/Identified Relationship to Patient Clinical Status Yes Erythromycin Base [id number] Drug Allergy Mild N/A 11/11/2008 Yes codeine [id number] Drug Allergy Unknown N/A 11/14/2008 Yes Penicillins [id number] Drug Allergy Unknown N/A 11/14/2008 Yes nitrofurantoin [id number] Drug Allergy Unknown N/A 11/04/2017 Medications There [...] 09/01/2012 PASTOR CISNEROS MD Ot 794.09 ABN NEUROSCIENTIST FUNCT STUDY NEC 09/01/2012 PASTOR CISNEROS MD [...] PASTOR J Ot 783.1 05/11/2014 AMELIA WRIGHT, [facility] Ot 787.3 05/11/2014 [...] PASTOR J Ot 783.1 05/15/2014 AMELIA WRIGHT, [facility] Ot 787.3 05/15/2014 AMELIA WRIGHT, [facility] Ot 789.09 05/15/2014 [...] WRIGHT, ALBERTASEELAN Ot 786.50 05/15/2014 AMELIA WRIGHT, [facility] Ot 251.2 05/15/2014 AMELIA WRIGHT, [facility] Ot 790.29 05/15/2014 AMELIA WRIGTH, [facility] Ot 780.39 05/15/2014 AMELIA WRIGHT, [facility] Ot 348.89 05/15/2014 AMELIA WRIGHT, [facility] Ot 780.97 05/15/2014 AMELIA WRIGHT, [facility] Ot 781.99 05/15/2014 AMELIA WRIGHT, [facility] Ot 530.81 05/15/2014 AMELIA WRIGHT, [facility] Ot 553.3 05/15/2014 AMELIA WRIGHT, [facility] Ot 787.20 05/15/2014 JASON WRIGHT, [facility] Ot 288.60 05/15/2014 AMELIA WRIGHT, [facility] Ot 530.81 05/15/2014 AMELIA WRIGHT, [facility] Ot 553.3 05/15/2014 AMELIA WRIGHT, [facility] Ot 787.20 05/15/2014 AMELIA WRIGHT, [facility] Ot 348.89 05/15/2014 AMELIA WRIGHT, [facility] Ot 780.97 05/15/2014 AMELIA WRIHGT, [facility] Ot 781.99 05/15/2014 Ot 272.4 05/15/2014 Ot [...] PASTOR J Ot 787.20 05/15/2014 JASON WRIGHT, [facility] Ot 288.60 05/17/2014 AMELIA WRIGHT, PASTOR J [...] MD Ot V58.69 OTH MED,LT,CURRENT USE 07/25/2014 GILEBRT GOMEZ MD Ot 288.60 07/26/2014 YUKO GARRETT [...] PASTOR J Ot 348.89 08/26/2014 AMELIA WRIGHT, OCALA J Ot 780.97 08/26/2014 AMELIA WRIGHT, OCALA J Ot 781.99 08/26/2014 AMELIA WRIGHT, PASTOR J Ot 530.81 08/26/2014 AMELIA WRIGHT, PASTOR J Ot 553.3 08/26/2014 AMELIA WRIGHT, PASTOR J Ot 787.20 08/26/2014 JASON WRIGHT, GILBERT K Ot 238.71 08/26/2014 JASON WRIGHT, GILBERT K Ot 272.4 08/26/2014 JASON WRIGHT, GILBERT K Ot 288.60 08/26/2014 JASON RWIGHT, GILBERT K Ot 401.9 08/26/2014 JASON WRIGHT, [...] AMELIA WRIGHT, PASTOR Blank Ot V12.54 01/28/2015 YUOK GARRETT MD Ot I10 01/28/2015 GERYR WRIGHT, YUKO Blank Ot R00.2 01/28/2015 GERRY [...] HALFWAY (CURRENT) USE OF ASPIRIN 03/29/2015 JOSE ADLRE DO Ot Z79.899 OTHER HALFWAY (CURRENT) DRUG THERAPY 03/29/2015 JOSE ADLER DO Ot Z86.73 PRSNL HX OF TIA (TIA), AND CEREB INFRC W 04/03/2015 AMELIA WRIGHT, PASTOR Blank Ot E11.9 04/03/2015 PASTOR CISNEROS MD Ot Z79.4 05/13/2015 PASTOR CISNEROS MD Ot E11.9 05/13/2015 PASTOR CISNEROS MD Ot M79.662 05/13/2015 PASTOR CISNEROS MD Ot R51 05/22/2015 THELMA FARAH APRN Ot R20.2 PARESTHESIA OF SKIN 05/22/2015 THELMA FARAH METALIZER Ot R42 DIZZINESS AND GIDDINESS 05/22/2015 THELMA FARAH METALIZER Ot Z79.02 HELP DESK ASSISTANT (CURRENT) USE OF ANTITHROMBOTI 05/22/2015 THELMA FARAH METALIZER Ot 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 05/24/2015 RONAN SOTO MD A Ot E11.9 TYPE 2 DIABETES MELLITUS WITHOUT COMPLIC 05/24/2015 RONAN SOTO MD A Ot F17.210 NICOTINE DEPENDENCE, CIGARETTES, UNCOMPL 05/24/2015 RONAN SOTO MD A Ot R20.2 PARESTHESIA OF SKIN 05/24/2015 RONAN SOTO MD A Ot Z79.82 HALFWAY (CURRENT) USE OF ASPIRIN 05/24/2015 RONAN SOTO MD A Ot Z79.899 OTHER HELP DESK ASSISTANT (CURRENT) DRUG THERAPY 06/04/2015 RONAN SOTO MD [...] HYPERTENSION 07/25/2015 GILBERT GOMEZ MD Ot Z79.02 HELP DESK ASSISTANT (CURRENT) USE OF ANTITHROMBOTI 07/25/2015 GILBERT GOMEZ MD Ot Z79.82 HALFWAY (CURRENT) USE OF ASPIRIN 08/01/2015 GILBERT GOMEZ [...] HYPERTENSION 08/06/2015 GILBERT GOMEZ MD Ot Z79.02 HELP DESK ASSISTANT (CURRENT) USE OF ANTITHROMBOTI 08/06/2015 GILBERT GOMEZ MD Ot 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 09/03/2015 GILBERT GOMEZ [...] 09/03/2015 GILBERT GOMEZ MD Ot Z79.899 OTHER HELP DESK ASSISTANT (CURRENT) DRUG THERAPY 09/10/2015 AKBAR EVANS MD, [...] 780.39 OTHER CONVULSIONS 09/10/2015 Ot 794.09 ABN NEUROSCIENTIST FUNCT STUDY NEC 09/10/2015 Ot 794.8 ABN LIVER FUNCTION STUDY 09/10/2015 Ot 368.9 VISUAL DISTURBANCE NOS 09/10/2015 Ot 780.2 SYNCOPE AND COLLAPSE 09/10/2015 Ot 780.79 OTH MALAISE FATIGUE 09/10/2015 Ot 786.2 COUGH 09/10/2015 Ot 786.50 CHEST PAIN NOS 09/10/2015 AMELIA WRIGHT, PASTOR Blank Ot 794.09 ABN NEUROSCIENTIST FUNCT STUDY NEC 09/10/2015 AMELIA WRIGHT, PASTOR Blank Ot 783.1 ABNORMAL WEIGHT GAIN 09/10/2015 AMELIA WRIGHT, PASTOR Blank Ot 787.3 FLATUL/ERUCTAT/GAS PAIN 09/10/2015 AMELIA RWIGHT, PASTOR Blank Ot 789.09 ABDOMINAL PAIN, OTHER [...] NEWSOME MD Ot 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 09/10/2015 JSAON WRIGHT, GILBERT Esqueda Ot 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) [...] COMPLIC 09/10/2015 PASTOR CISNEROS MD Ot Z79.4 HELP DESK ASSISTANT (CURRENT) USE OF INSULIN 09/10/2015 PASTOR CISNEROS [...] ANTITHROMBOTI 09/10/2015 GILBERT GOMEZ MD, Ot 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 09/10/2015 AKBAR EVANS [...] 10/02/2015 GILBERT GOMEZ MD Ot Z79.899 OTHER HELP DESK ASSISTANT (CURRENT) DRUG THERAPY 10/05/2015 JOSE ADLER DO [...] 10/29/2015 GILBERT GOMEZ MD, Ot Z79.899 OTHER HALFWAY (CURRENT) DRUG THERAPY 10/30/2015 GILBERT GOMEZ MD Ot 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) THROMBOCYTHEMIA 10/30/2015 GILBERT GOMEZ MD Ot D72.829 ELEVATED WHITE BLOOD CELL COUNT, UNSPECI 10/30/2015 GILBERT GOMZE MD Ot E78.5 HYPERLIPIDEMIA, UNSPECIFIED 10/30/2015 GILBERT [...] 11/04/2015 GILBERT GOMEZ MD, Ot Z79.899 OTHER HALFWAY (CURRENT) DRUG THERAPY 12/11/2015 GILBERT GOMEZ MD, [...] 12/11/2015 GILBERT GOMEZ MD Ot Z79.899 OTHER HALFWAY (CURRENT) DRUG THERAPY 12/19/2015 GILBERT GOMEZ MD [...] Ot M62.81 MUSCLE WEAKNESS (GENERALIZED) 01/02/2016 GILBERT OGMEZ MD Ot R00.0 TACHYCARDIA, UNSPECIFIED 01/02/2016 GILBERT GOMEZ MD Ot Z79.899 OTHER HALFWAY (CURRENT) DRUG THERAPY 03/17/2016 GILBERT GOMEZ MD [...] 780.39 OTHER CONVULSIONS 03/23/2016 Ot 794.09 ABN NEUROSCIENTIST FUNCT STUDY NEC 03/23/2016 Ot 794.8 ABN LIVER FUNCTION STUDY 03/23/2016 Ot 368.9 VISUAL DISTURBANCE NOS 03/23/2016 Ot 780.2 SYNCOPE AND COLLAPSE 03/23/2016 Ot 780.79 OTH MALAISE FATIGUE 03/23/2016 Ot 786.2 COUGH 03/23/2016 Ot 786.50 CHEST PAIN NOS 03/23/2016 PASTOR CISNEROS MD Ot 794.09 ABN NEUROSCIENTIST FUNCT STUDY NEC 03/23/2016 PASTOR CISNEROS MD [...] COMPLIC 03/23/2016 PASTOR CISNEROS MD Ot Z79.4 HELP DESK ASSISTANT (CURRENT) USE OF INSULIN 03/23/2016 PASTOR CISNEROS [...] CISNEROS MD Ot R51 HEADACHE 03/23/2016 GILBERT OGMEZ MD, Ot 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) THROMBOCYTHEMIA 03/23/2016 [...] ANTITHROMBOTI 03/23/2016 GILBERT GOMEZ MD Ot Z79.82 HALFWAY (CURRENT) USE OF ASPIRIN 03/23/2016 GILBERT GOMEZ [...] 03/23/2016 GILBERT GOMEZ MD Ot Z79.899 OTHER HELP DESK ASSISTANT (CURRENT) DRUG THERAPY 06/15/2016 JASON WRIGHT GILBERT [...] 780.39 OTHER CONVULSIONS 06/30/2016 Ot 794.09 ABN NEUROSCIENTIST FUNCT STUDY NEC 06/30/2016 Ot 794.8 ABN LIVER FUNCTION STUDY 06/30/2016 Ot 368.9 VISUAL DISTURBANCE NOS 06/30/2016 Ot 780.2 SYNCOPE AND COLLAPSE 06/30/2016 Ot 780.79 OTH MALAISE FATIGUE 06/30/2016 Ot 786.2 COUGH 06/30/2016 Ot 786.50 CHEST PAIN NOS 06/30/2016 AMELIA WRIGHT, PASTOR Blank Ot 794.09 ABN NEUROSCIENTIST FUNCT STUDY NEC 06/30/2016 AMELIA WRIGHT, PASTOR [...] COMPLIC 06/30/2016 PASTOR CISNEROS MD Ot Z79.4 HELP DESK ASSISTANT (CURRENT) USE OF INSULIN 06/30/2016 PASTOR CISNEROS [...] ANTITHROMBOTI 06/30/2016 GILBERT GOMEZ MD Ot 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 06/30/2016 GILBERT GOMEZ MD Ot 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) THROMBOCYTHEMIA 06/30/2016 GILBERT GOMEZ MD Ot D72.829 ELEVATED WHITE BLOOD CELL COUNT, UNSPECI 06/30/2016 GILBETR GOMEZ MD Ot E78.5 HYPERLIPIDEMIA, UNSPECIFIED 06/30/2016 [...] 06/30/2016 GILBERT GOMEZ MD Ot Z79.899 OTHER HELP DESK ASSISTANT (CURRENT) DRUG THERAPY 06/30/2016 Ot 530.81 ESOPHAGEAL [...] 780.39 OTHER CONVULSIONS 06/30/2016 Ot 794.09 ABN NEUROSCIENTIST FUNCT STUDY NEC 06/30/2016 Ot 794.8 ABN LIVER FUNCTION STUDY 06/30/2016 Ot 368.9 VISUAL DISTURBANCE NOS 06/30/2016 Ot 780.2 SYNCOPE AND COLLAPSE 06/30/2016 Ot 780.79 OTH MALAISE FATIGUE 06/30/2016 Ot 786.2 COUGH 06/30/2016 Ot 786.50 CHEST PAIN NOS 06/30/2016 AMELIA WRIGHT, PASTOR Blank Ot 794.09 ABN NEUROSCIENTIST FUNCT STUDY NEC 06/30/2016 AMELIA WRIGHT, PASTOR [...] ARTERY OCCLUSION W CEREBRAL IN 06/30/2016 JACOB NWESOME MD Ot 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 06/30/2016 YUKO [...] HYPERTENSION 06/30/2016 GILBERT GOMEZ MD, Ot Z79.02 HALFWAY (CURRENT) USE OF ANTITHROMBOTI 06/30/2016 GILBERT GOMEZ MD, Ot 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 06/30/2016 GILBERT GOMEZ [...] 06/30/2016 GILBERT GOMEZ MD, Ot Z79.899 OTHER HALFWAY (CURRENT) DRUG THERAPY 07/09/2016 GILBERT GOMEZ MD, [...] OF ANTITHROMBOTI 08/16/2016 PRISCILLA HUNT Ot 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 08/16/2016 PRISCILLA HUNT Ot Z79.899 OTHER HELP DESK ASSISTANT (CURRENT) DRUG THERAPY 08/19/2016 PRISCILLA HUNT Ot E11.9 TYPE 2 DIABETES MELLITUS WITHOUT COMPLIC 08/19/2016 PRISCILLA HUNT Ot F17.210 NICOTINE DEPENDENCE, CIGARETTES, UNCOMPL 08/19/2016 PRISCILLA HUNT Ot I10 ESSENTIAL (PRIMARY) HYPERTENSION 08/19/2016 PRISCILLA HUNT Ot N30.01 ACUTE CYSTITIS WITH HEMATURIA 08/19/2016 PRISCILLA HUNT Ot R31.0 GROSS HEMATURIA 08/19/2016 PRISCILLA HUNT Ot Z79.02 HELP DESK ASSISTANT (CURRENT) USE OF ANTITHROMBOTI 08/19/2016 PRISCILLA HUNT Ot Z79.82 HALFWAY (CURRENT) USE OF ASPIRIN 08/19/2016 PRISCILLA HUNT L Ot Z79.899 OTHER HALFWAY (CURRENT) DRUG THERAPY 09/03/2016 GILBERT GOMEZ MD [...] 09/12/2016 GILBERT GOMEZ MD, Ot Z79.899 OTHER HALFWAY (CURRENT) DRUG THERAPY 11/09/2016 AKBAR EVANS MD [...] GIDDINESS 11/09/2016 AKBAR EVANS MD, Ot 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 11/09/2016 AKBAR EVANS [...] GIDDINESS 11/11/2016 AKBAR EVANS MD, Ot 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 11/11/2016 AKBAR EVANS [...] 12/02/2016 IGOR ARANA MD Ot Z79.899 OTHER HELP DESK ASSISTANT (CURRENT) DRUG THERAPY 12/21/2016 IGOR ARANA MD [...] 12/21/2016 IGOR ARANA MD Ot Z79.899 OTHER HELP DESK ASSISTANT (CURRENT) DRUG THERAPY 02/11/2017 IGOR ARANA MD, [...] 02/11/2017 IGOR ARANA MD, Ot Z79.899 OTHER HELP DESK ASSISTANT (CURRENT) DRUG THERAPY 03/12/2017 PRISCILLA HUNT Ot [...] 03/20/2017 IGOR ARANA MD, Ot Z79.899 OTHER HELP DESK ASSISTANT (CURRENT) DRUG THERAPY 03/24/2017 PRISCILLA HUNT Ot [...] ABD REGION 03/24/2017 PRISCILLA HUNT Ot 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 03/24/2017 PRISCILLA HUNT [...] APRN Ot J43.8 OTHER EMPHYSEMA 04/05/2017 MIRELLA CMMILLAN APRN Ot R91.1 SOLITARY PULMONARY NODULE 04/05/2017 MIRELLA MCMILLAN APRN Ot Z72.0 TOBACCO USE 04/09/2017 AKBAR EVANS MD Ot E11.65 TYPE 2 DIABETES MELLITUS WITH HYPERGLYCE 04/09/2017 AKBAR EVANS MD Ot E87.8 OTH DISORDERS OF ELECTROLYTE AND FLUID B 04/09/2017 AKBAR EVANS MD Ot F17.210 NICOTINE DEPENDENCE, CIGARETTES, UNCOMPL 04/09/2017 AKBAR EVASN MD Ot F41.9 ANXIETY DISORDER, UNSPECIFIED 04/09/2017 AKBAR EVANS MD Ot I10 ESSENTIAL (PRIMARY) HYPERTENSION 04/09/2017 AKBAR EVANS MD Ot K21.9 GASTRO-ESOPHAGEAL REFLUX DISEASE WITHOUT 04/09/2017 AKBAR EVANS MD Ot M19.90 UNSPECIFIED OSTEOARTHRITIS, UNSPECIFIED 04/09/2017 AKBAR EVANS MD Ot R42 DIZZINESS AND GIDDINESS 04/09/2017 AKBAR EVANS MD Ot 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 04/09/2017 AKBAR EVANS [...] PLEURODYNIA 04/17/2017 GWEN RAMOS MD Ot Z79.01 HELP DESK ASSISTANT (CURRENT) USE OF ANTICOAGULANT 04/17/2017 GWEN RAMOS MD Ot Z79.82 HALFWAY (CURRENT) USE OF ASPIRIN 04/17/2017 GWEN RAMOS [...] PLEURODYNIA 04/18/2017 GWEN RAMOS MD Ot Z79.01 HALFWAY (CURRENT) USE OF ANTICOAGULANT 04/18/2017 GWEN RAMOS MD Ot Z79.82 HALFWAY (CURRENT) USE OF ASPIRIN 04/18/2017 GWEN RAMOS [...] PULMONARY DISEASE, U 05/09/2017 HIPOLITOLIDIA GALARZAINE Shefali METALIZER Ot R91.1 SOLITARY PULMONARY NODULE 05/09/2017 LIDIA MCMILLANINE Shefali METALIZER Ot J30.2 OTHER SEASONAL ALLERGIC RHINITIS 05/09/2017 LIDIA MCMILLANINE Shefali METALIZER Ot J44.9 CHRONIC OBSTRUCTIVE PULMONARY DISEASE, U 05/09/2017 HIPOLITOLIDIA GALARZAINE Shefali METALIZER Ot R91.1 SOLITARY PULMONARY NODULE 06/13/2017 LIDIA MCMILLANINE Shefali METALIZER Ot J30.2 OTHER SEASONAL ALLERGIC RHINITIS 06/13/2017 HIPOLITO, MIRELLA Shefali METALIZER Ot J44.9 CHRONIC OBSTRUCTIVE PULMONARY DISEASE, U 06/13/2017 HIPOLITOLIDIA GALARZAINE Shefali METALIZER Ot R91.1 SOLITARY PULMONARY NODULE 06/24/2017 SOTERO HUIZAR APRN Ot K43.9 VENTRAL HERNIA WITHOUT OBSTRUCTION OR GA 06/24/2017 SOTERO HUIZAR METALIZER Ot R16.0 HEPATOMEGALY, NOT ELSEWHERE CLASSIFIED 06/29/2017 SOTERO HUIZAR APRN Ot K43.9 VENTRAL HERNIA WITHOUT OBSTRUCTION OR GA 06/29/2017 SOTERO HUIZAR METALIZER Ot R16.0 HEPATOMEGALY, NOT ELSEWHERE CLASSIFIED 07/09/2017 [...] HALFWAY (CURRENT) DRUG THERAPY 07/14/2017 SOTERO HUIZAR APRN Ot K43.9 VENTRAL HERNIA WITHOUT OBSTRUCTION OR GA 07/14/2017 SOTERO HUIZAR METALIZER Ot R16.0 HEPATOMEGALY, NOT ELSEWHERE CLASSIFIED 08/16/2017 [...] HEADACHE 08/16/2017 THELMA FARAH APRN Ot Z79.02 HELP DESK ASSISTANT (CURRENT) USE OF ANTITHROMBOTI 08/16/2017 TEHLMA FARAH APRN Ot 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 08/16/2017 THELMA FARAH [...] APRN Ot R42 DIZZINESS AND GIDDINESS 08/18/2017 THEMLA FARAH APRN Ot R51 HEADACHE 08/18/2017 THELMA FARAH APRN Ot Z79.02 HALFWAY (CURRENT) USE OF ANTITHROMBOTI 08/18/2017 THELMA FARAH APRN Ot 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 08/18/2017 THELMA FARAH APRN Ot Z80.0 FAMILY HISTORY OF MALIGNANT NEOPLASM OF 08/18/2017 THELMA FARAH APRN Ot Z82.49 FAMILY HX OF ISCHEM HEART DIS AND OTH DI 08/18/2017 THELMA FARAH APRN Ot Z86.73 PRSNL HX OF TIA (TIA), AND CEREB INFRC W 08/18/2017 THELMA FARAH APRN Ot Z87.19 PERSONAL HISTORY OF OTHER DISEASES OF TH 08/18/2017 THELMA FAARH APRN Ot Z87.59 PERSONAL HISTORY OF COMP [...] PAIN 09/15/2017 JULIENNE CLEVELAND MD Ot Z79.02 HELP DESK ASSISTANT (CURRENT) USE OF ANTITHROMBOTI 09/15/2017 JULIENNE CLEVELAND [...] 780.39 OTHER CONVULSIONS 09/29/2017 Ot 794.09 ABN NEUROSCIENTIST FUNCT STUDY NEC 09/29/2017 Ot 794.8 ABN LIVER FUNCTION STUDY 09/29/2017 Ot 368.9 VISUAL DISTURBANCE NOS 09/29/2017 Ot 780.2 SYNCOPE AND COLLAPSE 09/29/2017 Ot 780.79 OTH MALAISE FATIGUE 09/29/2017 Ot 786.2 COUGH 09/29/2017 Ot 786.50 CHEST PAIN NOS 09/29/2017 AMELIA WRIGHT, PASTOR Blank Ot 794.09 ABN NEUROSCIENTIST FUNCT STUDY NEC 09/29/2017 PASTOR CISNEROS MD [...] Ot 780.79 OTH MALAISE FATIGUE 09/29/2017 AMELIA WRIHGT, PASTOR Blank Ot 782.3 EDEMA 09/29/2017 AMELIA [...] MD Ot 780.39 OTHER CONVULSIONS 09/29/2017 PASTOR ICSNEROS MD Ot 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 [...] COMPLIC 09/29/2017 PASTOR CISNEROS MD Ot Z79.4 HALFWAY (CURRENT) USE OF INSULIN 09/29/2017 PASTOR CISNEROS [...] HYPERTENSION 09/29/2017 GILBERT GOMEZ MD Ot Z79.02 HELP DESK ASSISTANT (CURRENT) USE OF ANTITHROMBOTI 09/29/2017 GILBERT GOMEZ MD, Ot 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 09/29/2017 GILBERT GOMEZ [...] SOLITARY PULMONARY NODULE 09/29/2017 HIPOLITO, MIRELLA E METALIZER Ot Z72.0 TOBACCO USE 09/29/2017 MIRELLA MCMILLAN METALIZER Ot J30.2 OTHER SEASONAL ALLERGIC RHINITIS 09/29/2017 MIRELLA MCMILLAN METALIZER Ot J44.9 CHRONIC OBSTRUCTIVE PULMONARY DISEASE, U 09/29/2017 MIRELLA MCMILLAN METALIZER Ot R91.1 SOLITARY PULMONARY NODULE 09/29/2017 HUIZARSOTERO Cox METALIZER Ot K43.9 VENTRAL HERNIA WITHOUT OBSTRUCTION OR GA 09/29/2017 HUIZARSOTERO Cox METALIZER Ot R16.0 HEPATOMEGALY, NOT ELSEWHERE CLASSIFIED 10/04/2017 GERRY WRIGHT, YUKO Blank Ot I10 ESSENTIAL (PRIMARY) HYPERTENSION 10/04/2017 YUKO GARRETT MD Ot J44.9 CHRONIC OBSTRUCTIVE PULMONARY DISEASE, U 10/04/2017 YUKO GARRETT MD Ot K21.9 GASTRO-ESOPHAGEAL REFLUX DISEASE WITHOUT 10/04/2017 YUKO GARRETT MD Ot R07.9 CHEST PAIN, UNSPECIFIED 10/08/2017 MIRELLA MCMILLAN METALIZER Ot J43.8 OTHER EMPHYSEMA 10/08/2017 MIRELLA MCMILLAN METALIZER Ot R91.1 SOLITARY PULMONARY NODULE 10/08/2017 MIRELLA MCMILLAN METALIZER Ot Z72.0 TOBACCO USE 10/18/2017 MIRELLA MCMILLAN METALIZER Ot J30.2 OTHER SEASONAL ALLERGIC RHINITIS 10/18/2017 MIRELLA MCMILLAN METALIZER Ot J44.9 CHRONIC OBSTRUCTIVE PULMONARY DISEASE, U 10/18/2017 MIRELLA MCMILLAN METALIZER Ot R91.1 SOLITARY PULMONARY NODULE 11/04/2017 AMELIA [...] 11/04/2017 IGOR ARANA MD Ot Z79.899 OTHER HALFWAY (CURRENT) DRUG THERAPY 11/04/2017 BILLY GOLD MD Ot E11.9 TYPE 2 DIABETES MELLITUS WITHOUT COMPLIC 11/04/2017 BILLY GOLD MD Ot E78.00 PURE HYPERCHOLESTEROLEMIA, UNSPECIFIED 11/04/2017 BILLY GOLD MD Ot F17.210 NICOTINE DEPENDENCE, CIGARETTES, UNCOMPL 11/04/2017 BILLY GOLD MD Ot F41.9 ANXIETY DISORDER, UNSPECIFIED 11/04/2017 ASIF WRIGHT, BILLY Baeza Ot G43.909 MIGRAINE, UNSP, NOT INTRACTABLE, WITHOUT 11/04/2017 BILLY GOLD MD Ot I10 ESSENTIAL (PRIMARY) HYPERTENSION 11/04/2017 BILLY GOLD MD Ot K21.9 GASTRO-ESOPHAGEAL REFLUX DISEASE WITHOUT 11/04/2017 BILLY GOLD MD Ot N39.0 URINARY TRACT INFECTION, SITE NOT SPECIF 11/04/2017 BILLY GOLD MD Ot R31.9 HEMATURIA, UNSPECIFIED 11/04/2017 BILLY GOLD MD Ot Z79.02 HALFWAY (CURRENT) USE OF ANTITHROMBOTI 11/04/2017 BILLY GOLD MD Ot Z79.82 HALFWAY (CURRENT) USE OF ASPIRIN 11/04/2017 BILLY GOLD MD Ot Z80.0 FAMILY HISTORY OF MALIGNANT NEOPLASM OF 11/04/2017 BILLY GOLD MD Ot Z82.49 FAMILY HX OF ISCHEM [...] Ot Z88.0 ALLERGY STATUS TO PENICILLIN 11/04/2017 ASIF WRIGHT, BILLY Baeza Ot Z88.5 ALLERGY [...] 11/07/2017 ASIF WRIGHT, BILLY Baeza Ot Z79.02 HALFWAY (CURRENT) USE OF ANTITHROMBOTI 11/07/2017 BILLY GOLD MD Ot Z79.82 HALFWAY (CURRENT) USE OF ASPIRIN 11/07/2017 ASIF WRIGHT, [...] APRN Ot E78.00 PURE HYPERCHOLESTEROLEMIA, UNSPECIFIED 11/24/2017 THELMA FARAH APRN Ot F41.9 ANXIETY DISORDER, [...] GIDDINESS 11/24/2017 THELMA FARAH APRN Ot Z79.02 HELP DESK ASSISTANT (CURRENT) USE OF ANTITHROMBOTI 11/24/2017 THELMA FARAH APRN Ot Z79.82 HALFWAY (CURRENT) USE OF ASPIRIN 11/24/2017 THELMA FARAH APRN Ot Z80.0 FAMILY HISTORY OF MALIGNANT NEOPLASM OF 11/24/2017 THELMA FARAH METALIZER Ot Z82.49 FAMILY HX OF ISCHEM HEART DIS AND OTH DI 11/24/2017 THELMA FARAH APRN Ot Z86.73 PRSNL HX OF TIA (TIA), AND CEREB INFRC W 11/24/2017 THELMA FARAH APRN Ot Z87.19 PERSONAL HISTORY OF OTHER DISEASES OF TH 11/24/2017 THELMA FARAH APRN Ot Z87.440 PERSONAL HISTORY OF URINARY (TRACT) INFE 11/24/2017 THELMA FARAH METALIZER Ot Z87.59 PERSONAL HISTORY OF COMP OF PREG, CHLDBR 11/24/2017 THELMA FARAH APRN Ot Z88.0 ALLERGY STATUS TO PENICILLIN 11/24/2017 THELMA FARAH APRN Ot Z88.5 ALLERGY STATUS TO NARCOTIC AGENT STATUS 11/24/2017 THELMA FARAH APRN Ot Z88.8 ALLERGY STATUS TO OTH DRUG/MEDS/BIOL SUB 11/24/2017 THELMA FARAH APRN Ot Z98.51 TUBAL LIGATION STATUS 12/01/2017 MIRELLA MCMILLAN METALIZER Ot R91.8 OTHER NONSPECIFIC ABNORMAL FINDING OF GIOVANNA 12/01/2017 MIRELLA MCMILLAN METALIZER Ot Z72.0 TOBACCO USE 12/05/2017 SOTERO HUIZAR METALIZER Ot I70.0 ATHEROSCLEROSIS OF AORTA 12/05/2017 SOTERO HUIZAR METALIZER Ot I70.90 UNSPECIFIED ATHEROSCLEROSIS 12/05/2017 SOTERO HUIZAR METALIZER Ot K43.9 VENTRAL HERNIA WITHOUT OBSTRUCTION OR GA 12/05/2017 SOTERO HUIZAR METALIZER Ot K76.0 FATTY (CHANGE OF) LIVER, NOT ELSEWHERE C 12/05/2017 SOTERO HUIZAR METALIZER Ot N39.0 URINARY TRACT INFECTION, SITE NOT SPECIF 12/05/2017 SOTERO HUIZAR METALIZER Ot I70.0 ATHEROSCLEROSIS OF AORTA 12/05/2017 SOTERO HUIZAR METALIZER Ot I70.90 UNSPECIFIED ATHEROSCLEROSIS 12/05/2017 SOTERO HUIZAR METALIZER Ot K43.9 VENTRAL HERNIA WITHOUT OBSTRUCTION OR GA 12/05/2017 SOTERO HUIZAR METALIZER Ot K76.0 FATTY (CHANGE OF) LIVER, NOT ELSEWHERE C 12/05/2017 SOTERO HUIZAR METALIZER Ot N39.0 URINARY TRACT INFECTION, SITE NOT SPECIF 12/07/2017 MAGDA MARTINEZ Ot D72.829 ELEVATED WHITE BLOOD CELL COUNT, UNSPECI 12/07/2017 MAGDA MARTINEZP Ot E11.9 TYPE 2 DIABETES MELLITUS WITHOUT COMPLIC 12/07/2017 MAGDA MARTINEZP Ot E78.00 PURE HYPERCHOLESTEROLEMIA, UNSPECIFIED 12/07/2017 MAGDA MARTINEZP Ot F17.210 NICOTINE DEPENDENCE, CIGARETTES, UNCOMPL 12/07/2017 MAGDA MARTINEZ CRITICAL CARE PHYSICIAN ASSISTANT Ot F41.0 PANIC DISORDER [EPISODIC PAROXYSMAL ANXI 12/07/2017 MAGDA MARTINEZP Ot G43.909 MIGRAINE, UNSP, NOT INTRACTABLE, WITHOUT 12/07/2017 MICHELLE MAGDA CRITICAL CARE PHYSICIAN ASSISTANT Ot I10 ESSENTIAL (PRIMARY) HYPERTENSION 12/07/2017 MAGDA MARTINEZP Ot K21.9 GASTRO-ESOPHAGEAL REFLUX DISEASE WITHOUT 12/07/2017 MAGDA MARTINEZ CRITICAL CARE PHYSICIAN ASSISTANT Ot Z79.02 HELP DESK ASSISTANT (CURRENT) USE OF ANTITHROMBOTI 12/07/2017 MAGDA MARTINEZP Ot 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 12/07/2017 MAGDA MARTINEZ CRITICAL CARE PHYSICIAN ASSISTANT Ot Z80.0 FAMILY HISTORY OF MALIGNANT NEOPLASM OF 12/07/2017 MAGDA MARTINEZ CRITICAL CARE PHYSICIAN ASSISTANT Ot Z82.49 FAMILY HX OF ISCHEM HEART DIS AND OTH DI 12/07/2017 MAGDA MARTINEZ CRITICAL CARE PHYSICIAN ASSISTANT Ot Z86.73 PRSNL HX OF TIA (TIA), AND CEREB INFRC W 12/07/2017 MAGDA MARTINEZ CRITICAL CARE PHYSICIAN ASSISTANT Ot Z87.19 PERSONAL HISTORY OF OTHER DISEASES OF TH 12/07/2017 MAGDA MARTINEZP Ot Z87.440 PERSONAL HISTORY OF URINARY (TRACT) INFE 12/07/2017 MAGDA MARTINEZ CRITICAL CARE PHYSICIAN ASSISTANT Ot Z88.0 ALLERGY STATUS TO PENICILLIN 12/07/2017 MAGDA MARTINEZ CRITICAL CARE PHYSICIAN ASSISTANT Ot Z88.5 ALLERGY STATUS TO NARCOTIC AGENT STATUS 12/07/2017 MAGDA MARTINEZ CRITICAL CARE PHYSICIAN ASSISTANT Ot Z88.8 ALLERGY STATUS TO OT DRUG/MEDS/BIOL SUB 12/07/2017 MAGDA MARTINEZ CRITICAL CARE PHYSICIAN ASSISTANT Ot Z98.51 TUBAL LIGATION STATUS 12/07/2017 MAGDA [...] BLOOD CELL COUNT, UNSPECI 12/09/2017 MAGDA MARTINEZ CRITICAL CARE PHYSICIAN ASSISTANT Ot E11.9 TYPE 2 DIABETES MELLITUS WITHOUT COMPLIC 12/09/2017 MICHELLE MAGDA CRITICAL CARE PHYSICIAN ASSISTANT Ot E78.00 PURE HYPERCHOLESTEROLEMIA, UNSPECIFIED 12/09/2017 MICHELLE, MAGDA CRITICAL CARE PHYSICIAN ASSISTANT Ot F17.210 NICOTINE DEPENDENCE, CIGARETTES, UNCOMPL 12/09/2017 MICHELLE MAGDA CRITICAL CARE PHYSICIAN ASSISTANT Ot F41.0 PANIC DISORDER [EPISODIC PAROXYSMAL ANXI 12/09/2017 MICHELLE MAGDA CRITICAL CARE PHYSICIAN ASSISTANT Ot G43.909 MIGRAINE, UNSP, NOT INTRACTABLE, WITHOUT 12/09/2017 MICHELLE MAGDA CRITICAL CARE PHYSICIAN ASSISTANT Ot I10 ESSENTIAL (PRIMARY) HYPERTENSION 12/09/2017 MICHELLE MAGDA CRITICAL CARE PHYSICIAN ASSISTANT Ot K21.9 GASTRO-ESOPHAGEAL REFLUX DISEASE WITHOUT 12/09/2017 MICHELLE MAGDA CRITICAL CARE PHYSICIAN ASSISTANT Ot Z79.02 HALFWAY (CURRENT) USE OF ANTITHROMBOTI 12/09/2017 MAGDA MARTINEZ CRITICAL CARE PHYSICIAN ASSISTANT Ot 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 12/09/2017 MICHELLE MAGDA CRITICAL CARE PHYSICIAN ASSISTANT Ot Z80.0 FAMILY HISTORY OF MALIGNANT NEOPLASM OF 12/09/2017 MAGDA MARTINEZ CRITICAL CARE PHYSICIAN ASSISTANT Ot Z82.49 FAMILY HX OF ISCHEM HEART DIS AND OTH DI 12/09/2017 MAGDA MARTINEZ CRITICAL CARE PHYSICIAN ASSISTANT Ot Z86.73 PRSNL HX OF TIA (TIA), AND CEREB INFRC W 12/09/2017 MICHELLE MAGDA CRITICAL CARE PHYSICIAN ASSISTANT Ot Z87.19 PERSONAL HISTORY OF OTHER DISEASES OF TH 12/09/2017 MAGDA MARTINEZ CRITICAL CARE PHYSICIAN ASSISTANT Ot Z87.440 PERSONAL HISTORY OF URINARY (TRACT) INFE 12/09/2017 MICHELLE MAGDA CRITICAL CARE PHYSICIAN ASSISTANT Ot Z88.0 ALLERGY STATUS TO PENICILLIN 12/09/2017 MICHELLE MAGDA CRITICAL CARE PHYSICIAN ASSISTANT Ot Z88.5 ALLERGY STATUS TO NARCOTIC AGENT STATUS 12/09/2017 MAGDA MARTINEZ CRITICAL CARE PHYSICIAN ASSISTANT Ot Z88.8 ALLERGY STATUS TO OTH DRUG/MEDS/BIOL SUB 12/09/2017 MAGDA MARTINEZP Ot Z98.51 TUBAL LIGATION STATUS 12/09/2017 MAGDA MARTINEZ Ot Z98.890 OTHER SPECIFIED POSTPROCEDURAL STATES 12/28/2017 SOTERO HUIZAR METALIZER Ot I70.0 ATHEROSCLEROSIS OF AORTA 12/28/2017 SOTERO HUIZAR METALIZER Ot I70.90 UNSPECIFIED ATHEROSCLEROSIS 12/28/2017 SOTERO HUIZAR METALIZER Ot K43.9 VENTRAL HERNIA WITHOUT OBSTRUCTION OR GA 12/28/2017 SOTERO HUIZAR METALIZER Ot K76.0 FATTY (CHANGE OF) LIVER, NOT ELSEWHERE C 12/28/2017 SOTERO HUIZAR METALIZER Ot N39.0 URINARY TRACT INFECTION, SITE NOT SPECIF 01/26/2018 RENY MEJIA Ot E11.9 TYPE 2 DIABETES MELLITUS WITHOUT COMPLIC 01/26/2018 ROB MEJIAIS Ot E78.00 PURE HYPERCHOLESTEROLEMIA, UNSPECIFIED 01/26/2018 ROB MEJIAIS Ot F17.210 NICOTINE DEPENDENCE, CIGARETTES, UNCOMPL 01/26/2018 ROB MEJIAIS Ot F41.9 ANXIETY DISORDER, UNSPECIFIED 01/26/2018 ROB MEJIAIS Ot G43.909 MIGRAINE, UNSP, NOT INTRACTABLE, WITHOUT 01/26/2018 ROB MEJIAIS Ot I10 ESSENTIAL (PRIMARY) HYPERTENSION 01/26/2018 ROB MEJIAIS Ot R10.32 LEFT LOWER QUADRANT PAIN 01/26/2018 ROB MEJIAIS Ot 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 01/26/2018 ROB MEJIAIS Ot Z86.73 PRSNL HX OF TIA (TIA), AND CEREB INFRC W 01/26/2018 ROB MEJIAIS Ot Z87.440 PERSONAL HISTORY OF URINARY (TRACT) INFE 01/26/2018 ROB MEJIAIS Ot Z88.0 ALLERGY STATUS TO PENICILLIN 01/26/2018 ROB MEJIAIS Ot Z88.1 ALLERGY STATUS TO OTHER ANTIBIOTIC AGENT 01/26/2018 ROB MEJIAIS Ot Z88.5 ALLERGY STATUS TO NARCOTIC AGENT STATUS 01/26/2018 ROB MEJIAIS Ot Z88.8 ALLERGY STATUS TO OTH DRUG/MEDS/BIOL SUB 01/26/2018 ROB MEJIAIS Ot Z98.51 TUBAL LIGATION STATUS Procedures There [...] HDL Cholesterol 24 mg/dL >39 VLDL Cholesterol [place] 75 mg/dL 5-40 LDL Cholesterol Calc 24 mg/dL 0-99 Vitamin D, 25-Hydroxy - 03/16/16 11:24 Vitamin D, 25-Hydroxy 7.8 ng/mL 30.0-100.0 Thyroid [place] Profile - 03/16/16 11:24 TSH 1.490 uIU/mL [...] erythrocyte count by microscopy (number/high power field) [facility] NRG Automated urine sediment leukocyte count by [...] culture - 08/16/16 15:00 Bacterial urine culture [id number] NRG COLONY COUNT 10,000/ML - 100,000/ML NRG [...] 10.8 fL 7.5-12.5 ABSOLUTE NEUTROPHILS 7155 cells/uL 8113-6778 ABSOLUTE LYMPHOCYTES 4211 cells/uL 850-3900 ABSOLUTE MONOCYTES [...] 08/19/17 16:30 CULTURE, URINE, ROUTINE SEE NOTE NR CULTURE, URINE - 08/26/17 11:46 CULTURE, URINE, ROUTINE SEE NOTE NR Complete blood count (CBC) with automated white [...] plasma (mass/volume) 0.40 ug/mL 0.00-0.49 PDM - 09 PANEL (PROFILE 1) - 09/23/17 11:11 Prescribed [...] NEGATIVE ng/mL <25 medMATCH Phencyclidine CONSISTENT NRG CULTURE, URINE - 11/01/17 12:44 CULTURE, URINE, ROUTINE SEE NOTE NRG Bacterial urine culture - 11/24/17 17:15 Bacterial urine culture SEE COMMEN NRG COLONY COUNT . NRG Tick identification panel - 11/24/17 17:15 Serum Ehrlichia chaffeensis IgG antibody detection <1:16 <1:16 Serum Ehrlichia chaffeensis IgM antibody detection <1:10 <1:10 Serum Rickettsia rickettsii IgG antibody assay (units/volume) < <1:16 Warba spotted fever panel < <1:10 Francisella tularensis [...] 11.1 fL 7.5-12.5 ABSOLUTE NEUTROPHILS 7358 cells/uL 9549-9778 ABSOLUTE LYMPHOCYTES 2912 cells/uL 850-3900 ABSOLUTE MONOCYTES [...] - 01/23/18 16:25 Lipase 133 U/L 8-78 Complete urinalysis with reflex to culture - 01/23/18 17:05 Urine color determination YELLOW NRG Urine clarity determination CLEAR NRG Urine pH measurement by test strip 7 5-9 Specific gravity of urine by test strip 1.010 1.016- 1.022 Urine protein assay by test strip, semi-quantitative 1+ NEGATIVE Urine glucose detection by automated test strip 4+ NEGATIVE Erythrocytes detection in urine sediment by light microscopy NEGATIVE NEGATIVE Urine ketones detection by automated test strip NEGATIVE NEGATIVE Urine nitrite detection by test strip NEGATIVE NEGATIVE Urine total bilirubin detection by test strip NEGATIVE NEGATIVE Urine urobilinogen measurement by automated test strip (mass/volume) 1 mg/dL NORMAL Urine leukocyte esterase detection by dipstick 1+ NEGATIVE Automated urine sediment erythrocyte count by microscopy (number/high power field) NONE NRG Automated urine sediment leukocyte count by microscopy (number/high power field ) RARE NRG Bacteria detection in urine sediment by [...] Status Pt. Type Provider Facility Loc./Unit Complaint [id number] 01/27/2018 14:53:00 01/27/2018 23:59:59 CLS Outpatient SILVIA SPENCER DO Via [facility] RAD LT QUAD ABD PAIN [id number] 01/23/2018 15:52:00 01/23/2018 18:23:00 DIS Outpatient RENY MEJIA Via [facility] ER TREATED FOR C-DIFF/ DIARRHEA/ABD AND RECTAL PAIN [id number] 12/19/2017 08:22:00 12/19/2017 23:59:59 CLS Preadmit YASMEEN WRIGHT, IGOR Via [facility] ONC [id number] 12/07/2017 16:31:00 12/07/2017 18:45:00 DIS Emergency MAGDA MARTINEZ Via [facility] ER DIZZINESS/NAUSEA [id number] 12/05/2017 15:42:00 12/05/2017 23:59:59 CLS Outpatient SOTERO HUIZAR APRN Via [facility] RAD FLANK PAIN [id number] 11/24/2017 16:54:00 11/24/2017 18:08:00 DIS Emergency THELMA FARAH APRN Via [facility] ER DIZZINESS;NAUSEA;TICK BITE [id number] 11/04/2017 08:02:00 11/04/2017 09:00:00 DIS Emergency ASIF WRIGHT, BILLY Baeza Via [facility] ER HURTS WHEN URINATING [id number] 09/30/2017 12:57:00 09/30/2017 23:59:59 CLS Outpatient YUKO GARRETT MD Via [facility] CARD CHEST PAIN SYNDROME,GERD ,HTN,COPD [id number] 09/19/2017 13:29:00 09/19/2017 23:59:59 CLS Outpatient YUKO GARRETT MD Via [facility] CARD CHEST PAIN SYNDROME,GERD ,HTN,COPD [id number] 09/19/2017 13:11:00 09/19/2017 23:59:59 CLS Preadmit YUKO GARRETT MD Via [facility] CARD CHEST PAIN SYNDROME,GERD ,HTN,COPD [id number] 09/15/2017 09:16:00 09/15/2017 12:28:00 DIS Emergency JULIENNE CLEVELAND MD Via [facility] ER CP,STRAIN IN BACK,SOB [id number] 08/16/2017 20:47:00 08/16/2017 21:52:00 DIS Emergency THELMA FARAH APRN Via [facility] ER RUSSELL;NECK PAIN [id number] 06/23/2017 06:43:00 06/23/2017 23:59:59 CLS Outpatient SOTERO HUIZAR APRN Via [facility] RAD RUQ PAIN [id number] 04/28/2017 09:51:00 04/28/2017 23:59:59 CLS Outpatient MIRELLA MCMILLAN APRN Via [facility] RAD R91.1,Z72.0 [id number] 04/27/2017 09:42:00 04/27/2017 23:59:59 CLS Outpatient MIRELLA MCMILLAN METALIZER Via [facility] RT I44.9 COPD [id number] 04/16/2017 22:16:00 04/17/2017 01:15:00 DIS Emergency RICHARD WRIGHT, GWEN Blank Via [facility] ER CHEST PAIN AND BACK PAIN FROM DRY COUGH [id number] 04/05/2017 09:16:00 04/05/2017 23:59:59 CLS Outpatient MIRELLA MCMILLAN METALIZER Via [facility] RAD R91.1 LUNG NODULE [id number] 03/29/2017 10:15:00 03/29/2017 23:59:59 CLS Preadmit SOTERO HUIZAR METALIZER Via [facility] RAD LUNG NODULE INCREASING IN SIZE [id number] 03/21/2017 00:21:00 03/21/2017 23:59:59 CLS Preadmit IGOR ARANA MD Via [facility] ONC [id number] 12/20/2016 15:01:00 03/20/2017 00:01:00 DIS Outpatient IGOR ARANA MD Via [facility] ONC [id number] 03/12/2017 12:32:00 03/12/2017 16:27:00 DIS Emergency PRISCILLA HUNT Via [facility] ER ABD PAIN, SHAKY, 4 PREVIOUS BRAIN-STEM FLORES [id number] 11/09/2016 20:08:00 11/09/2016 23:58:00 DIS Emergency NATHAN WRIGHT, AKBAR Solis Via [facility] ER DIZZINESS,NAUSEA [id number] 06/29/2016 15:16:00 09/12/2016 00:01:00 DIS Outpatient GILBERT GOMEZ MD Via [facility] ONC [id number] 08/16/2016 13:54:00 08/16/2016 16:50:00 DIS Emergency PRISCILLA HUNT Via [facility] ER UTI [id number] 07/02/2016 10:14:00 07/02/2016 23:59:59 CLS Outpatient GILBERT GOMEZ MD Via [facility] RAD HEADACHE,DIZZINESS [id number] 12/18/2015 09:01:00 03/17/2016 00:01:00 DIS Outpatient GILBERT GOMEZ MD Via [facility] ONC [id number] 09/18/2015 12:52:00 10/29/2015 00:01:00 DIS Outpatient GILBERT GOMEZ MD Via [facility] ONC [id number] 09/12/2015 20:37:00 2015 01:00:00 DIS Emergency JOSE ADLER DO Via [facility] ER DIZZINESS [id number] 09/10/2015 01:28:00 09/10/2015 03:57:00 DIS Emergency AKBAR EVANS MD Via [facility] ER RUSSELL,BLURRY EYES,BLOOD SUGAR HIGH,DIZZY [id number] 07/24/2015 09:02:00 07/24/2015 23:59:59 CLS Outpatient GILBERT GOMEZ MD Via [facility] ONC [id number] 05/23/2015 23:06:00 05/24/2015 00:31:00 DIS Emergency RONAN SOTO MD Via [facility] ER FULL BODY TINGLING/ NUMBNESS [id number] 05/22/2015 13:58:00 05/22/2015 16:11:00 DIS Emergency THELMA FARAH APRN Via [facility] ER DIZZINESS LIPS NUMBNESS [id number] 04/28/2015 11:14:00 04/28/2015 23:59:59 CLS Outpatient PASTOR CISNEROS MD Via [facility] RAD CALF PAIN,HEADACHES, DIABETES [id number] 03/28/2015 22:08:00 03/28/2015 23:59:59 CLS Emergency JOSE ADLER DO Via [facility] ER DIZZINESS,FACIAL NUMBNESS [id number] 03/24/2015 10:00:00 03/24/2015 23:59:59 CLS Preadmit PASTOR CISNEROS MD Via [facility] DSME TYPE 2 DIABETES [id number] 12/23/2014 17:00:00 03/23/2015 00:01:00 DIS Outpatient PASTOR CISNEROS MD Via [facility] DSME TYPE 2 DIABETES [id number] 03/21/2015 10:24:00 03/21/2015 23:59:59 CLS Outpatient PASTOR CISNEROS MD Via [facility] LAB TYPE 2 DIABETES INSULIN DEPENDENT [id number] 01/15/2015 08:11:00 01/15/2015 23:59:59 CLS Outpatient YUKO GARRETT MD Via [facility] CARD CPS,HTN,PALPITATIONS, SOB [id number] 12/02/2014 10:00:00 12/18/2014 00:01:00 DIS Outpatient PASTOR CISNEROS MD Via [facility] DSME TYPE 2 DIABETES [id number] 07/25/2014 08:49:00 10/23/2014 00:01:00 DIS Outpatient GILBERT GOMEZ MD Via [facility] ONC [id number] 08/27/2014 15:20:00 08/27/2014 23:59:59 CLS Outpatient JACOB NEWSOME MD Via [facility] RAD FOLLOW UP PER RADIOLOGIST [id number] 08/26/2014 12:47:00 08/26/2014 23:59:59 CLS Outpatient JACOB NEWSOME MD Via [facility] RAD CEREBRAL ATHEROSCLEROSIS [id number] 07/23/2014 20:00:00 07/23/2014 23:59:59 CLS Preadmit YUKO GARRETT MD Via [facility] SLEEP SNORING,HTN,HX OF STROKE [id number] 07/18/2014 11:36:00 07/18/2014 15:39:00 DIS Emergency AKBAR EVANS MD Via [facility] ER DIZZINESS,NAUSEA [id number] 06/17/2014 08:15:00 06/17/2014 23:59:59 CLS Outpatient YUKO GARRETT MD Via [facility] CARD PALPITATIONS SOB HTN [id number] 01/24/2014 08:49:00 04/24/2014 00:01:00 DIS Outpatient GILBERT GOMEZ MD Via [facility] ONC [id number] 02/13/2014 10:00:00 03/29/2014 16:22:00 DIS Outpatient PASTOR CISNEROS MD Via [facility] REHAB CVA [id number] 11/22/2013 09:41:00 01/14/2014 00:01:00 DIS Outpatient PASTOR CISNEROS MD Via [facility] REHAB CVA [id number] 10/25/2013 10:49:00 01/09/2014 00:01:00 DIS Outpatient GILBERT GOMEZ MD Via [facility] ONC [id number] 12/18/2013 09:18:00 12/18/2013 23:59:59 CLS Outpatient PASTOR CISNEROS MD Via [facility] RAD CHOKING,TROUBLE SWALLOWING [id number] 12/14/2013 19:01:00 12/14/2013 20:23:00 DIS Emergency RONAN SOTO MD Via [facility] ER CONGESTION [id number] 10/04/2013 13:16:00 10/04/2013 23:59:59 CLS Outpatient PASTOR CISNEROS MD Via [facility] RAD NEUROLOGICAL CHANGES, RECENT STROKE [id number] 09/24/2013 18:13:00 09/28/2013 13:30:00 DIS Inpatient MICHELLE WRIGHT, SILVIA E Via [facility] IRF CVA [id number] 09/15/2013 14:10:00 09/18/2013 12:35:00 DIS Outpatient PASTOR CISNEROS MD Via [facility] SDC VERTIGO [id number] 09/07/2013 08:36:00 09/07/2013 23:59:59 CLS Outpatient PASTOR CISNEROS MD Via [facility] RT SEIZURE TYPE ACTIVITY [id number] 07/03/2013 12:37:00 07/03/2013 23:59:59 CLS Outpatient TRISTAN WRIGHT, SULEMA Via [facility] CARD CP,HTN [id number] 06/20/2013 08:30:00 06/20/2013 23:59:59 CLS Outpatient PASTOR CISNEROS MD Via [facility] LAB HYPOGLYCEMIA,FLUXUATING BLOOD SUGAR [id number] 06/08/2013 09:00:00 06/08/2013 23:59:59 CLS Outpatient TRISTAN WRIGHT, SULEMA Via [facility] CARD CP,HTN [id number] 05/21/2013 14:03:00 05/21/2013 23:59:59 CLS Outpatient PASTOR CISNEROS MD Via [facility] CARD HYPERTENSION,PERIPHERD EDEMA,SMOKER,CARDIMEGALY,CH [id number] 05/17/2013 21:44:00 05/17/2013 23:59:59 CLS Outpatient PASTOR CISNEROS MD Via [facility] LAB LIPID PANEL [id number] 05/17/2013 12:24:00 05/17/2013 23:59:59 CLS Outpatient PASTOR CISNEROS MD Via [facility] LAB EDEMA,FATIGUE,TACHYCARDIA ,JOINT PAIN [id number] 02/02/2013 14:11:00 02/23/2013 10:40:00 DIS Outpatient PASTOR CISNEROS MD Via [facility] REHAB NECK PAIN, UPPER BACK PAIN RADIATING LEFT SHOULDER [id number] 10/31/2012 14:21:00 10/31/2012 23:59:59 CLS Outpatient PASTOR CISNEROS MD Via [facility] RAD NECK PAIN,TENDERNESS RADIATING FROM ARM TO BACK OF [id number] 09/04/2012 08:56:00 09/04/2012 23:59:59 CLS Outpatient PASTOR CISNEROS MD Via [facility] RAD ABD PAIN,BLOATING R. SIDED FIRMNESS [id number] 09/01/2012 09:16:00 09/01/2012 10:45:00 DIS Outpatient [facility]; MULTIPLE SCLEROSIS [id number] 07/18/2012 08:50:00 07/18/2012 23:59:59 CLS Outpatient PASTOR CISNEROS MD Via [facility] RAD FOLLOW UP ABD MRI [id number] 11/04/2017 08:48:00 Document Registration [id number] 08/26/2014 12:46:00 Document Registration [id number] 05/19/2014 09:39:00 Document Registration [id number] 05/11/2014 19:49:00 Document Registration [id number] 06/26/2012 11:26:00 Document Registration [id number] 05/19/2012 09:58:00 Document Registration [id number] 04/20/2012 12:51:00 Document Registration [id number] 01/04/2012 12:04:00 Document Registration [id number] 12/31/2011 08:48:00 Document Registration [id number] 11/22/2011 22:34:00 Document Registration [id number] 10/08/2011 22:58:00 Document Registration [id number] 10/07/2011 13:12:00 Document Registration [id number] 07/26/2011 14:37:00 Document Registration [id number] 04/05/2011 08:01:00 Document Registration [id number] 02/03/2011 11:11:00 Document Registration [id number] 02/01/2011 11:54:00 Document Registration [id number] 12/08/2010 08:13:00 Document Registration [id number] 08/25/2009 10:44:00 Document Registration [id number] 03/17/2016 18:05:00 Document Registration [id number] 09/15/2016 17:09:00 Document Registration [id number] 10/27/2017 08:40:00 10/27/2017 23:59:59 [facility] SOTERO HUIZAR [facility] [place] [id number] 01/03/2018 09:00:00 Document Registration [id number] 12/13/2017 16:00:00 Document Registration [id number] 11/01/2017 11:00:00 Document Registration [id number] 09/23/2017 09:40:00 Document Registration [id number] 08/26/2017 11:20:00 Document Registration [id number] 08/19/2017 16:05:00 Document Registration [id number] 08/02/2017 08:20:00 Document Registration [id number] 06/23/2017 16:40:00 Document Registration [id number] 06/17/2017 14:40:00 Document Registration [id number] 05/11/2017 14:45:00 Document Registration [id number] 01/06/2017 14:00:00 Document Registration [id number] 01/07/2017 07:05:00 Document Registration [id number] 07/28/2016 19:07:00 Document Registration
--- NOTE | 2018-02-02 20:48 | Diagnostic Imaging Report ---
INDICATION: Sore throat. COMPARISON STUDY: Chest from September 15. FINDINGS: Frontal and lateral views of the chest demonstrate the lungs to be clear. The heart, mediastinum, pulmonary vascularity and visualized bony thorax are normal. IMPRESSION: Normal chest. Dictated by: Dictated on workstation # [id number]
[2018-02-02] MEDS ORDERED: DOXY100C2 PO (21:02)
[2018-02-02] MEDS ORDERED: BENZ100C18 PO (21:02)
[2018-02-02] MEDS ORDERED: METR-197 PO (21:02)
[2018-02-02 21:25] VITALS: BP 124/59
--- NOTE | 2018-02-02 21:26 | ED Cough/URI ---
General Chief Complaint: Cough/Cold/Flu Symptoms Stated Complaint: SORE THROAT Nursing Triage Note: AMBULATORY TO ED WITH C/O UPPER RESPIRATORY COUGH THAT STARTED A WEEK AGO LOWER IN CHEST. XRAY AT [facility] 3 DAYS AGO-HAS NO RESULTS AT THIS TIME. IS COUGHING UP THICK, GREEN SPUTUM AND NOW HAS RIGHT SIDE SORE THROAT. Source: patient, family (daughter) Exam Limitations: no limitations History of Present Illness Date Seen by Provider: Feb 02, 2018 Time Seen by Provider: 20:20 Initial Comments h/o antibiotic associated C Diff colitis recently. Allergies and Home Medications Allergies Coded Allergies: erythromycin base (Unverified Allergy, Mild, 11/11/08) Penicillins (Verified Allergy, Unknown, 11/14/08) codeine (Verified Allergy, Unknown, 11/14/08) nitrofurantoin (Verified Allergy, Unknown, 11/04/17) Home Medications Acetaminophen 325 Mg Tab, 650 MG PO Q4H PRN for mild pain or fever Prescribed by: ERNESTO SY on 09/28/13931 Alprazolam 0.25 Mg Tablet, 0.25 MG PO TID PRN for ANXIETY 1/2 or 1 every 8 hours as needed. Prescribed by: MAGDA MARTINEZ on 12/07/17 184 Aspirin 81 Mg Tablet.dr, 81 MG PO DAILY, (Reported) Atorvastatin Calcium 80 Mg Tablet, 80 MG PO HS Prescribed by: CELIA ISAACS on 09/24/131849 Benzonatate 100 Mg Capsule, 200 MG PO Q8H PRN for COUGH Prescribed by: PRISCILLA QUINN on 02/02/182101 Bisacodyl 10 Mg Supp, 10 MG IL DAILY PRN for CONSTIPATION Prescribed by: ERNESTO SY on 09/28/13931 Cefuroxime Axetil 250 Mg Tablet, 250 MG PO BID Prescribed by: THELMA FARAH on 11/24/17 180 Clopidogrel Bisulfate 75 Mg Tablet, 1 EACH PO DAILY Prescribed by: CELIA ISAACS on 09/24/131849 Diltiazem Hcl 30 Mg Tab, 30 MG PO Q8HR Prescribed by: ERNESTO SY on 09/28/13931 Doxycycline Hyclate 100 Mg Capsule, 100 MG PO BID Prescribed by: PRISCILLA QUINN on 02/02/182101 Hydrochlorothiazide 12.5 Mg Cap, 25 MG PO DAILY, (Reported) Hydrocodone Bit/Acetaminophen 1 Each Tablet, 1 EACH PO NEEDED, (Reported) Melatonin/Pyridoxine Hcl (B6) 1 Each Tab.mphase, 1 EACH PO HS, (Reported) Metoprolol Tartrate 25 Mg Tablet, 25 MG PO BID Prescribed by: ERNESTO SY on 09/28/13 0932 Metronidazole 500 Mg Tablet, 500 MG PO TID Prescribed by: PRISCILLA QUINN on 02/02/182101 Nystatin 60 Ml Btl, 5 ML PO Q6H swish and swallow QID x5 days Prescribed by: THELMA FARAH on 05/11/142017 Omeprazole 40 Mg Capsule.dr, 40 MG PO DAILY, (Reported) Ondansetron 4 Mg Tab.rapdis, 4 MG SL Q4H PRN for NAUSEA/VOMITING Prescribed by: AKBAR BARROW on 09/10/15 0349 Ondansetron Hcl 4 Mg Tab, 4 MG SL Q4H FOR NAUSEA AND VOMITING Prescribed by: BLAIR DANIELS on 05/19/14 1128 Polyethylene Glycol 17 Gm Pack, 17 GM PO DAILY PRN for CONSTIPATION Prescribed by: CELIA ISAACS on 09/24/13 1850 Senna 1 Ea Tablet, 1 EA PO BID Prescribed by: ERNESTO SY on 09/28/13 0932 Past Fcsxxwk-Dgjzbf-Jrbxgj Hx Patient Social History Alcohol Use: Denies Use Recreational Drug Use: No Type Used: Cigarettes 2nd Hand Smoke Exposure: Yes Recent Foreign Travel: No Contact w/Someone Who Travel: No Recent Infectious Disease Expo: No Recent Hopitalizations: No Immunizations Up To Date Tetanus Booster (TDap): Unknown PED Vaccines UTD: No Date of Influenza Vaccine: Jan 07, 2017 Seasonal Allergies Seasonal Allergies: No Past Medical History Surgeries: Yes (egd, colonoscopy) Section, Gallbladder, Tubal Ligation Respiratory: No (l lung nodule) Cardiac: Yes High Cholesterol, Hypertension, Irregular Heartbeat Neurological: Yes (r sided numbness r/t previous stroke) Headaches /Migraines, Stroke, Vertigo Reproductive Disorders: Yes Female Reproductive Disorders: Endometriosis 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, 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 Sexually Transmitted Disease: No Genitourinary: Yes UTI-Chronic Gastrointestinal: Yes Gastroesophageal Reflux, Hiatal Hernia, Gall Bladder Disease Musculoskeletal: Yes Arthritis Endocrine: No Diabetes, Insulin dep HEENT: No Cancer: No Psychosocial: Yes Anxiety Integumentary: No Blood Disorders: Yes ("CLOTTING DISORDER", chronic leukocytosis) Adverse Reaction/Blood Tranf: No Family Medical History Cancer 19 MOTHER (THROAT CANCER) Family history: Hypertension 19 MOTHER History of - disorder G8 SISTER (SISTER HAD MS) Myocardial infarction 19 FATHER 19 MOTHER Stroke 19 MOTHER Heart Disease, Hypertension, Stroke Physical Exam Vital Signs - First Documented 02/02/18 19:53 Temp 98.0 Pulse 88 Resp 19 B/P (MAP) 124/59 (80) Capillary Refill : Less Than 3 Seconds Height: 5'3.00" Weight: 193lbs. 0.0oz. 87.692053yd; 43.9 BMI Method:Stated Progress/Results/Core Measures Suspected Sepsis Recent Fever Within 48 Hours: No Infection Criteria Present: Suspected New Infection New/Unexplained Altered Menta: No Sepsis Screen: No Definite Risk SIRS Temperature:98.0 Pulse: 88 Respiratory Rate: 19 Blood Pressure 124 /59 Mean: 80 Results/Orders My Orders Orders - PRISCILLA QUINN Chest Pa/Lat (2 View) (02/02/18 20:31) Vital Signs/I&O 02/02/18 19:53 Temp 98.0 Pulse 88 Resp 19 B/P (MAP) 124/59 (80) Capillary Refill : Less Than 3 Seconds Blood Pressure Mean: 80 Departure Impression Primary Impression: Bronchitis Additional Impression: history of recent C Diff infection Disposition: 01 HOME, SELF-CARE Condition: Improved Departure-Patient Inst. Decision time for Depature: 21:00 [place]: [facility] [place]ructions: Acute Bronchitis, Adult (DC) Add. Discharge Instructions: All discharge instructions reviewed with patient and/or family. Voiced understanding. Medications as instructed. Continue your home albuterol treatments every 4-6 hours as needed for wheezing or shortness of breath. Tylenol pnjn-xfn-savccwm as directed by the wood preparation supervisor for pain or fever. Mucinex eadn-kly-ptmuxcd for chest congestion. Afrin nasal spray over-the- counter as needed for nasal congestion. Follow-up with your family practitioner tomorrow for recheck, call first in the morning for appointment time. Return to the emergency department for worsened symptoms or any other concerns. Scripts Benzonatate (TESSALON PERLES) 100 Mg Capsule 200 MG PO Q8H PRN for COUGH, #30 CAP 0 Refills Prov: PRISCILLA QUINN 02/02/18 Metronidazole (Metronidazole) 500 Mg Tablet 500 MG PO TID, #21 TAB 0 Refills Prov: PRISCILLA QUINN 02/02/18 Doxycycline Hyclate (Doxycycline Hyclate) 100 Mg Capsule 100 MG PO BID, #14 CAP 0 Refills Prov: PRISCILLA QUINN 02/02/18 Work/School Note: Work Release Form Date Seen in the Emergency Department: Feb 02, 2018 Return to Work: Feb 04, 2018 Restrictions: No Restrictions PRISCILLA QUINN Feb 02, 2018 21:25
== END 2018-02-02 21:29 | disposition home or self-care (01) ==
LOC: EDUNIT# 19:34 → ER 19:35
DX: J40 Bronchitis, not specified as acute or chronic (principal); E78.00 Pure hypercholesterolemia, unspecified; I10 Essential (primary) hypertension; G43.909 Migraine, unspecified, not intractable, without status migrainosus; K21.9 Gastro-esophageal reflux disease without esophagitis; E11.9 Type 2 diabetes mellitus without complications; F41.9 Anxiety disorder, unspecified; D72.829 Elevated white blood cell count, unspecified; Z80.0 Family history of malignant neoplasm of digestive organs; Z82.49 Family history of ischemic heart disease and other diseases of the circulatory system; Z87.19 Personal history of other diseases of the digestive system; Z87.440 Personal history of urinary (tract) infections; Z86.73 Personal history of transient ischemic attack (TIA), and cerebral infarction without residual deficits; Z98.51 Tubal ligation status; Z98.890 Other specified postprocedural states; Z88.0 Allergy status to penicillin; Z88.5 Allergy status to narcotic agent; Z88.8 Allergy status to other drugs, medicaments and biological substances; Z79.82 Long term (current) use of aspirin; Z79.02 Long term (current) use of antithrombotics/antiplatelets; Z77.22 Contact with and (suspected) exposure to environmental tobacco smoke (acute) (chronic)
CPT/HCPCS: 71046

== ENCOUNTER 2018-02-24 21:19 | Emergency (ER) | payer MEDICARE, MEDICAID ==
[~2018-02-24] VITALS: Ht 157.5 cm; Wt 83.5 kg
[~2018-02-24 21:19] MED LIST changes: +BENZ100C18 PO; +DOXY100C2 PO; +METR-197 PO
--- NOTE | 2018-02-24 22:13 | ED Integumentary General ---
General Chief Complaint: Skin/Wound Problems Stated Complaint: REDNESS AT INSULIN SHOT SITE Source: patient Exam Limitations: no limitations History of Present Illness Date Seen by Provider: Feb 24, 2018 Time Seen by Provider: 22:13 Initial Comments Patient is a 47-year-old female who presents to the emergency room with complaints of redness and itching to her lower left abdomen at the injection site of her insulin. There is a 1 cm in diameter area of redness noted. No induration or fluctuation. Timing/Duration: this morning Associated Symptoms: change in skin texture Allergies and Home Medications Allergies Coded Allergies: erythromycin base (Unverified Allergy, Mild, 11/11/08) Penicillins (Verified Allergy, Unknown, 11/14/08) codeine (Verified Allergy, Unknown, 11/14/08) nitrofurantoin (Verified Allergy, Unknown, 11/04/17) Home Medications Acetaminophen 325 Mg Tab, 650 MG PO Q4H PRN for mild pain or fever Prescribed by: ERNESTO SY on 09/28/13931 Alprazolam 0.25 Mg Tablet, 0.25 MG PO TID PRN for ANXIETY 1/2 or 1 every 8 hours as needed. Prescribed by: MAGDA AMRTINEZ on 12/07/17 184 Aspirin 81 Mg Tablet.dr, 81 MG PO DAILY, (Reported) Atorvastatin Calcium 80 Mg Tablet, 80 MG PO HS Prescribed by: CELIA ISAACS on 09/24/131849 Benzonatate 100 Mg Capsule, 200 MG PO Q8H PRN for COUGH Prescribed by: PRISCILLA QUINN on 02/02/182101 Bisacodyl 10 Mg Supp, 10 MG W[place] DAILY PRN for CONSTIPATION Prescribed by: ERNESTO SY on 09/28/13931 Cefuroxime Axetil 250 Mg Tablet, 250 MG PO BID Prescribed by: THELMA FARAH on 11/24/17 180 Clopidogrel Bisulfate 75 Mg Tablet, 1 EACH PO DAILY Prescribed by: CELIA ISAACS on 09/24/131849 Diltiazem Hcl 30 Mg Tab, 30 MG PO Q8HR Prescribed by: ERNESTO SY on 09/28/13931 Doxycycline Hyclate 100 Mg Capsule, 100 MG PO BID Prescribed by: PRISCILLA QUINN on 02/02/182101 Hydrochlorothiazide 12.5 Mg Cap, 25 MG PO DAILY, (Reported) Hydrocodone Bit/Acetaminophen 1 Each Tablet, 1 EACH PO NEEDED, (Reported) Melatonin/Pyridoxine Hcl (B6) 1 Each Tab.mphase, 1 EACH PO HS, (Reported) Metoprolol Tartrate 25 Mg Tablet, 25 MG PO BID Prescribed by: ERNESTO SY on 09/28/13 0932 Metronidazole 500 Mg Tablet, 500 MG PO TID Prescribed by: PRISCILLA QUINN on 02/02/182101 Nystatin 60 Ml Btl, 5 ML PO Q6H swish and swallow QID x5 days Prescribed by: THELMA FARAH on 05/11/142017 Omeprazole 40 Mg Capsule.dr, 40 MG PO DAILY, (Reported) Ondansetron 4 Mg Tab.rapdis, 4 MG SL Q4H PRN for NAUSEA/VOMITING Prescribed by: AKBAR BARROW on 09/10/15 0349 Ondansetron Hcl 4 Mg Tab, 4 MG SL Q4H FOR NAUSEA AND VOMITING Prescribed by: BLAIR DANIELS on 05/19/14 112 Polyethylene Glycol 17 Gm Pack, 17 GM PO DAILY PRN for CONSTIPATION Prescribed by: CELIA ISAACS on 09/24/13 1850 Senna 1 Ea Tablet, 1 EA PO BID Prescribed by: ERNESTO SY on 09/28/13 0932 Patient Home Medication List Home Medication List Reviewed: Yes Review of Systems Review of Systems Constitutional: no symptoms reported, see HPI Skin: see HPI, lesions (itching area of redness to left lower abdomen wall. ) Past [facility] Hx Past Med/Social Hx: Reviewed Nursing Past Med/Soc Hx Patient Social History Type Used: Cigarettes 2nd Hand Smoke Exposure: Yes Recent Foreign Travel: No Contact w/Someone Who Travel: No Recent Hopitalizations: No Immunizations Up To Date Tetanus Booster (TDap): Unknown PED Vaccines UTD: No Date of Influenza Vaccine: Jan 07, 2017 Seasonal Allergies Seasonal Allergies: No Past Medical History Surgeries: Yes (egd, colonoscopy) Section, Gallbladder, Tubal Ligation Respiratory: No (l lung nodule) Cardiac: Yes High Cholesterol, Hypertension, Irregular Heartbeat Neurological: Yes (r sided numbness r/t previous stroke) Headaches /Migraines, Stroke, Vertigo Reproductive Disorders: Yes Female Reproductive Disorders: Endometriosis [employer] History: Tubal Ligation, Menopausal Sexually Transmitted Disease: No Genitourinary: Yes UTI-Chronic Gastrointestinal: Yes Gastroesophageal Reflux, Hiatal Hernia, Gall Bladder Disease Musculoskeletal: Yes Arthritis Endocrine: No Diabetes, Insulin dep HEENT: No Cancer: No Psychosocial: Yes Anxiety Integumentary: No Blood Disorders: Yes ("CLOTTING DISORDER", chronic leukocytosis) Adverse Reaction/Blood Tranf: No Family Medical History Reviewed Nursing Family Hx Cancer 19 MOTHER (THROAT CANCER) Family history: Hypertension 19 MOTHER History of - disorder G8 SISTER (SISTER HAD MS) Myocardial infarction 19 FATHER 19 MOTHER Stroke 19 MOTHER Heart Disease, Hypertension, Stroke Physical Exam Vital Signs Vital Signs - First Documented 02/24/18 21:54 Temp 98.4 Pulse 96 Resp 18 B/P (MAP) 131/101 (111) Pulse Ox 92 O2 Delivery Room Air Capillary Refill : General Appearance: WD/WN, no apparent distress Cardiovascular: normal peripheral pulses, regular rate, rhythm, no edema, no gallop, no JVD, no murmur Respiratory: chest non-tender, lungs clear, normal breath sounds, no respiratory distress, no accessory muscle use Skin: normal color, warm/dry Skin Problem Location: torso (lower abdomen wall arear of reddness 1cm by 1cm in diameter, no flucuation suggesting abscess. ) Progress/Results/Core Measures Results/Orders Vital Signs/I&O 02/24/18 02/24/18 21:54 22:29 Temp 98.4 98.4 Pulse 96 96 Resp 18 18 B/P (MAP) 131/101 (111) 130/64 (86) Pulse Ox 92 94 O2 Delivery Room Air Room Air Departure Impression Primary Impression: localized irritation from insulin shots Additional Impression: Injection site reaction Disposition: 01 HOME, SELF-CARE Condition: Stable/Unchanged Departure-Patient Inst. Decision time for Depature: 22:25 Referrals: [facility] (PCP/Family) Primary Care Physician Patient Instructions: Wound Care (DC) Add. Discharge Instructions: You may use topical triple antibiotic ointment as needed until the skin returns to normal. Watch for signs of infection such as increased redness, swelling, drainage pain. Follow-up with her primary care provider as needed. Return back to the emergency room as needed. All discharge instructions reviewed with patient and/or family. Voiced understanding. RENY MEJIA Feb 24, 2018 22:13
[2018-02-24 22:29] VITALS: BP 130/64
== END 2018-02-24 22:29 | disposition home or self-care (01) ==
LOC: EDUNIT# 21:19 → ER 21:21
DX: L29.9 Pruritus, unspecified (principal); T80.89XA Other complications following infusion, transfusion and therapeutic injection, initial encounter; E78.00 Pure hypercholesterolemia, unspecified; I10 Essential (primary) hypertension; G43.909 Migraine, unspecified, not intractable, without status migrainosus; E11.9 Type 2 diabetes mellitus without complications; F41.9 Anxiety disorder, unspecified; K21.9 Gastro-esophageal reflux disease without esophagitis; Z87.19 Personal history of other diseases of the digestive system; Z87.440 Personal history of urinary (tract) infections; Z87.448 Personal history of other diseases of urinary system; Z80.0 Family history of malignant neoplasm of digestive organs; Z82.49 Family history of ischemic heart disease and other diseases of the circulatory system; Z86.73 Personal history of transient ischemic attack (TIA), and cerebral infarction without residual deficits; Z88.0 Allergy status to penicillin; Z88.5 Allergy status to narcotic agent; Z88.8 Allergy status to other drugs, medicaments and biological substances; Z79.82 Long term (current) use of aspirin; Z79.02 Long term (current) use of antithrombotics/antiplatelets; Z77.22 Contact with and (suspected) exposure to environmental tobacco smoke (acute) (chronic); Z98.890 Other specified postprocedural states; Z98.51 Tubal ligation status

== ENCOUNTER 2018-03-13 11:53 | Emergency (ER) | payer MEDICARE, MEDICAID ==
[~2018-03-13] VITALS: Ht 160 cm; Wt 82.6 kg
--- OUTSIDE RECORDS SUMMARY | 2018-03-13 11:59 | XMS REPORT ---
Author Author JONO FLORES [facility] Address [address] [place] [address] Care Team Providers Care Manager Quality Name Role Phone JONO FLORES Unavailable PROBLEMS Type Condition ICD9-CM Code YNS04-EQ Code Onset Dates Condition Status SNOMED Code Problem Tobacco abuse counseling Z71.6 Active 837517943 Problem History of CVA with residual deficit I69.30 Active 488470285 Problem Seasonal allergic rhinitis due to pollen J30.1 Active 38577811 Problem Panic disorder F41.0 Active 019561993 Problem Vitamin D deficiency E55.9 Active 43611353 Problem Abnormal drug screen R89.2 Active 602547169 Problem Type 2 diabetes mellitus with hyperglycemia E11.65 Active 68698166 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 Active 309682976 Problem Acute non intractable tension-type headache G44.209 Active 235178089 Problem Chronic pain syndrome G89.4 Active 362540982 Problem Generalized anxiety disorder F41.1 Active 37554160 Problem 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 Active 613818323 Problem Major depressive disorder, recurrent episode, moderate F33.1 Active 113361777 Problem Elevated liver enzymes R74.8 Active 141260620 Problem Gastroesophageal reflux disease, esophagitis presence not specified K21.9 Active 447850937 Problem Essential hypertension I10 Active 75580007 Problem DM (diabetes mellitus) with complications E11.8 Active 84542282 Problem Other chronic pain G89.29 Active 48474373 Problem Hyperlipidemia, unspecified hyperlipidemia type E78.5 Active 37004704 Problem Tobacco abuse Z72.0 Active 644768244 ALLERGIES Substance Reaction Event Type Date Status Penicillin V Potassium Unknown Drug Allergy Feb, Active Erythromycin Base Unknown Drug Allergy Feb, Active Bactrim DS rash and trouble breathing Drug Allergy Feb, Active Codeine Unknown Drug Allergy Feb, Active ENCOUNTERS Encounter Location Date Diagnosis [facility] [id number] [place] [address] 95769- 2227 Feb, [facility] [id number] [place] [address] 30677- 0613 Feb, Acute nasopharyngitis (common cold) J00 and Cough R05 [facility] [id number] [place] [address] 34882- 3556 Feb, [facility] [address] 84939 -5133 Feb, Dysuria R30.0 ; Urinary tract infection, site not specified N39.0 and Encounter for immunization Z23 [facility] [address] 34140- 4587 Feb, Bronchitis J40 [facility] [id number] [place] [address] 25554 -5498 Jan, Oral thrush B37.0 [facility] [id number] [place] [address] 70929- 8693 Jan, [facility] [id number] [place] [address] 74278- 7866 Jan, [facility] [id number] [place] [address] 59889- 8229 Jan, [facility] [id number] [place] [address] 22599- 8208 Jan, [facility] [id number] [place] [address] 95697- 8845 Jan, Bronchitis J40 [facility] [id number] [place] [address] 80099- 7604 Jan, [facility] [id number] [place] [address] 99957- 3557 Jan, [facility] [id number] [place] [address] 43087- 5540 Dec, Hyperlipidemia, unspecified hyperlipidemia type E78.5 [place] [id number] [place] [address] 08061- 1235 16 Dec, 2017 C. difficile diarrhea A04.72 and Bronchitis J40 [place] [id number] [place] [address] 13756- 8337 Dec, [place] [id number] [place] [address] 28264- 2098 28 Nov, 2017 C. difficile diarrhea A04.72 [place] [id number] [place] [address] 07912- 8317 26 Nov, 2017 Panic disorder F41.0 [place] [id number] [place] [address] 76289- 0052 25 Nov, 2017 Diarrhea, unspecified type R19.7 [place] [id number] [place] [address] 27164- 0701 19 Nov, 2017 [place] [id number] [place] [address] 28032- 1192 13 Nov, 2017 Dysuria R30.0 ; Acute cystitis with hematuria N30.01 ; Flank pain R10.9 and Violation of controlled substance agreement Z91.14 [place] [id number] [place] [address] 11322- 8806 Oct, [facility] [id number] [place] [address] 79966 -4723 Oct, [facility] [id number] [place] [address] 92500 -1402 Oct, Dysuria R30.0 and Acute cystitis with hematuria N30.01 [place] [id number] [place] [address] 42516- 7181 Oct, [place] [id number] [place] [address] 96887- 2650 Oct, [place] [id number] [place] [address] 89264- 9959 Oct, Controlled substance agreement broken Z91.14 ; Violation of controlled substance agreement Z91.14 ; Other chronic pain G89.29 and Generalized anxiety disorder F41.1 [place] [address] 66464- 6611 Oct, [place] [address] 53110- 1583 Oct, [place] [address] 76825- 8139 Sep, Abscess L02.91 [place] [address] 14467- 3538 Sep, [place] [address] 35155- 4746 Sep, DM (diabetes mellitus) with complications E11.8 ; Generalized anxiety disorder F41.1 and Chronic pain syndrome G89.4 [place] [address] 83534- 6532 Sep, Generalized anxiety disorder F41.1 ; Chronic pain syndrome G89.4 ; Abnormal drug screen R89.2 and Other chest pain R07.89 [place] [address] 94900- 2035 Aug, Dysuria R30.0 [place] [address] 99259- 1755 Aug, Generalized anxiety disorder F41.1 ; Chronic pain syndrome G89.4 and Dysuria R30.0 [place] [address] 21434- 6773 Aug, Acute cystitis with hematuria N30.01 and Candidal dermatitis B37.2 [place] [address] 04847- 7707 Aug, Dysuria R30.0 [place] [address] 13744- 4115 Aug, [facility] [id number] [place] [address] 67181 -2767 Aug, Dysuria R30.0 [facility] [id number] [place] [address] 44724- 5046 Aug, [facility] [id number] [place] [address] 63875- 1871 July, Cervicalgia M54.2 ; Acute non intractable tension-type headache G44.209 ; Type 2 diabetes mellitus with hyperglycemia E11.65 and halfway current use of insulin Z79.4 [place] [id number] [place] [address] 65359- 7838 July, Generalized anxiety disorder F41.1 and Chronic pain syndrome G89.4 [place] [address] 01539- 9344 July, Abscess L02.91 [place] [address] 09459- 7166 July, [place] [id number] [place] [address] 53016- 1494 July, [place] [id number] [place] [address] 71456- 3931 July, Type 2 diabetes mellitus with hyperglycemia [...] pain syndrome G89.4 and Vaginal candidiasis B37.3 [facility] [id number] [place] [address] 23559- 5982 Jun, Generalized anxiety disorder F41.1 and Other chronic pain G89.29 [facility] [address] [address]90 Jun, [facility] [id number] [place] [address] 20725- 6943 Jun, [facility] [id number] [place] [address] 62196- 5289 Jun, Abnormal levels of other serum enzymes R74.8 [facility] [id number] [place] [address] 07069- 5308 Jun, Abnormal levels of other serum enzymes R74.8 [facility] [id number] [place] [address] 64464- 5842 Jun, Elevated liver enzymes R74.8 [facility] [id number] [place] [address] 68394- 5630 Jun, Elevated liver enzymes R74.8 [facility] [id number] [place] [address] 25503- 0567 May, Right upper quadrant pain R10.11 ; Cervicalgia M54.2 and High risk medication use Z79.899 [facility] [id number] [place] [address] 95396- 2032 May, Generalized anxiety disorder F41.1 and Other chronic pain G89.29 [facility] [id number] [place] [address] 51610- 2054 May, Canker sores oral K12.0 [facility] [id number] [place] [address] 67309- 9149 May, Generalized anxiety disorder F41.1 and Other chronic pain G89.29 [facility] [id number] [place] [address] 42015- 1768 May, [facility] [id number] [place] [address] 81539- 2682 Apr, [facility] [id number] [place] [address] 98407 -3034 Apr, Acute cystitis with hematuria N30.01 and Dysuria R30.0 [facility] [id number] [place] [address] 44629- 8673 Apr, [place] [address] 55507- 9572 Apr, [place] [address] 63584- 3459 Apr, DM (diabetes mellitus) with complications E11.8 [place] [address] 96625- 8215 Apr, DM (diabetes mellitus) with complications E11.8 [place] [id number] [place] [address] 78436- 3160 Apr, [place] [address] 58140- 1222 Apr, [place] [id number] [place] [address] 81019- 5608 Apr, Other chronic pain G89.29 ; Generalized anxiety disorder F41.1 ; Cervicalgia M54.2 and Controlled substance agreement signed Z79.899 [facility] [id number] [place] [address] 84944 -3879 Mar, Abdominal pain R10.9 and Viral gastroenteritis A08.4 [place] [id number] [place] [address] 19114- 8063 Mar, [place] [id number] [place] [address] 94644- 2184 Mar, [place] [id number] [place] [address] 85659- 8511 Mar, DM (diabetes mellitus) with complications E11.8 [...] not specified K21.9 and 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 [place] [address] 75171- 5961 Mar, [place] [address] 02332- 3517 Mar, DM (diabetes mellitus) with complications E11.8 ; Abnormal lung sounds R09.89 ; Bronchitis J40 and Hyperlipidemia, unspecified hyperlipidemia type E78.5 [facility] [place] [address] 45738 -2652 Mar, URI, acute J06.[address] 25476- 2819 Mar, [address] 21147- 2925 Mar, DM (diabetes mellitus) with complications E11.[address] 98978- 8745 Mar, Other chronic pain G89.29 and Generalized anxiety disorder F41.[address] 23185- 6712 Feb, [address] 80746- 2857 Feb, Mass of left lung R91.8 and Cervicalgia M54.[address] 41800- 1214 Feb, [place] [address] 70208- 3974 Feb, [facility] [place] [address] 24119 -8557 11 Feb, 2017 Cough R05 and Bronchitis J40 [facility] [address] 07480 -6602 07 Feb, 2017 Acute nasopharyngitis J00 and Bronchitis J40 [facility] [address] 06135- 0623 06 Feb, 2017 Other chronic pain G89.29 and Generalized anxiety disorder F41.1 [facility] [address] 12632- 3603 29 Jan, 2017 Encounter for immunization Z23 [facility] [address] 81512 -5366 Jan, [facility] [address] 58123 -1904 18 Jan, 2017 [facility] [address] 51235- 6280 16 Jan, 2017 Canker sores oral K12.0 [facility] [address] 25959- 2604 14 Jan, 2017 [place] [address] 06290- 5113 07 Jan, 2017 Other chronic pain G89.29 and Generalized anxiety disorder F41.1 [place] [address] 38798- 0650 Jan, Cough R05 and Bronchitis J40 [facility] [address] 65610 -0919 Jan, Bronchitis J40 [facility] [address] 73890- 9568 Dec, Vitamin D deficiency E55.9 [place] [id number] [place] [address] 02322- 2391 Dec, DM (diabetes mellitus) with complications E11.8 [place] [id number] [place] [address] 66753- 1044 19 Dec, 2016 DM (diabetes mellitus) with complications E11.8 and Vitamin D deficiency E55.9 [place] [address] 96181- 8639 10 Dec, 2016 DM (diabetes mellitus) with complications E11.8 ; Essential hypertension I10 ; Hyperlipidemia, unspecified hyperlipidemia type E78.5 ; Vitamin D deficiency E55.9 ; Gastroesophageal reflux disease, esophagitis presence not specified K21.9 ; 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 ; Other chronic pain G89.29 ; Encounter for immunization Z23 and Generalized anxiety disorder F41.[address] 32778- 2838 12 Nov, 2016 History of CVA with residual deficit I69.[address] 10247- 9968 11 Nov, 2016 DM (diabetes mellitus) with complications E11.8 [place] [address] 17432- 9827 06 Nov, 2016 Left otitis media with effusion H65.92 ; Bronchitis J40 and Canker sores oral K12.[address] 37699- 9256 14 Oct, [address] 76360- 8078 Oct, DM (diabetes mellitus) with complications E11.8 [place] [address] 72706- 1430 Oct, [address] 42859- 8601 Sep, DM (diabetes mellitus) with complications E11.8 [place] [address] 69840- 3028 Sep, DM (diabetes mellitus) with complications E11.8 ; Essential hypertension I10 ; Gastroesophageal reflux disease, esophagitis presence not specified K21.9 ; Hyperlipidemia, unspecified hyperlipidemia type E78.5 ; Tobacco abuse Z72.0 ; Vitamin D deficiency E55.9 ; History of CVA with residual deficit I69.30 and Seasonal allergic rhinitis due to pollen J30.1 [facility] [id number] [place] [address] 34056- 6662 Sep, [facility] [id number] [place] [address] 62859- 6420 Aug, [facility] [id number] [place] [address] 35877 -3455 Aug, Dysuria R30.0 ; Acute cystitis with hematuria N30.01 and Middle ear effusion, right H65.91 [facility] [id number] [place] [address] 36619- 1816 Aug, Other complicated headache syndrome G44.59 [facility] [id number] [place] [address] 85273- 1070 Aug, DM (diabetes mellitus) with complications E11.8 [place] [id number] [place] [address] 07397- 0395 Aug, Dysuria R30.0 [place] [id number] [place] [address] 13893- 9210 Aug, Dysuria R30.0 [facility] [id number] [place] [address] 51427- 0151 Aug, [facility] [id number] [place] [address] 33000- 5278 July, [facility] [id number] [place] [address] 98338- 4344 July, [facility] [id number] [place] [address] 32118- 7797 July, DM (diabetes mellitus) with complications E11.8 [facility] [id number] [place] [address] 29643- 8609 July, Other complicated headache syndrome G44.59 [facility] [id number] [place] [address] 43386- 6544 July, [facility] [id number] [place] [address] 07805 -2021 July, Dysuria R30.0 and Acute cystitis with hematuria N30.01 [place] [address] 64323- 0067 July, [facility] [address] 79258- 2230 July, Other complicated headache syndrome G44.59 [facility] [address] 63926 -5745 Jun, Exposure to strep throat Z20.818 and Acute upper respiratory infection, unspecified J06.9 [place] [address] 71915- 1900 Jun, [place] [address] 94934- 6126 Jun, DM (diabetes mellitus) with complications E11.8 and Gastroesophageal reflux disease, esophagitis presence not specified K21.9 [facility] [id number] [place] [address] 63126- 0247 Jun, [place] [id number] [place] [address] 19872- 2774 Jun, Dizziness R42 [facility] [id number] [place] [address] 43806 -5885 Jun, [facility] [address] 35521- 8758 Jun, [facility] [id number] [place] [address] 01759 -3097 May, Seasonal allergic rhinitis, unspecified allergic rhinitis trigger J30.2 [place] [address] 14223- 5653 May, [facility] [id number] [place] [address] 02597- 9751 May, DM (diabetes mellitus) with complications E11.8 [...] J30.1 [facility] [address] 88464- 7278 May, Gastroesophageal reflux disease, esophagitis presence not specified K21.9 [facility] [id number] [place] [address] 86265- 0549 May, [facility] [address] 08267- 6647 Apr, [facility] [id number] [place] [address] 22554- 3594 Apr, [facility] [id number] [place] [address] 57251- 3342 Mar, [facility] [id number] [place] [address] 50826- 1258 Mar, [facility] [id number] [place] [address] 20102- 8127 Mar, [facility] [id number] [place] [address] 05355- 9353 Mar, [facility] [id number] [place] [address] 44264255- 7570 Feb, [facility] [id number] [place] [address] 67346- 0635 Feb, [facility] [address] 37540- 0079 Feb, [facility] [id number] [place] [address] 69257- 1154 Feb, Major depressive disorder, recurrent episode, moderate F33.1 ; Generalized anxiety disorder F41.1 ; Essential hypertension I10 ; DM ( diabetes mellitus) with complications E11.8 ; Hyperlipidemia, unspecified hyperlipidemia type E78.5 ; 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 and Gastroesophageal reflux disease, esophagitis presence not specified K21.9 [facility] [id number] [place] [address] 80053 -7224 Feb, Other viral agents as the cause of diseases classified elsewhere B97.89 and Acute upper respiratory infection, unspecified J06.9 [place] [id number] [place] [address] 81178- 7902 Jan, [place] [address] 83028- 5209 Jan, [facility] [id number] [place] [address] 62148 -5919 Jan, Acute bronchitis, unspecified organism J20.9 [place] [id number] [place] [address] 72222- 3650 Jan, [place] [id number] [place] [address] 86467- 6351 Jan, History of CVA with residual deficit I69.30 [place] [id number] [place] [address] 31087- 6055 Jan, [place] [id number] [place] [address] 84119- 6147 Jan, Acute bronchitis, unspecified organism J20.9 [place] [id number] [place] [address] 95028- 8562 Jan, [place] [id number] [place] [address] 29492- 6656 Dec, History of CVA with residual deficit I69.30 [place] [id number] [place] [address] 22933- 2717 Dec, [place] [id number] [place] [address] 77487- 7145 Dec, Other chronic pain G89.29 ; DM (diabetes mellitus) with complications E11.8 and History of CVA with residual deficit I69.30 [place] [id number] [place] [address] 49762- 0880 Nov, Major depressive disorder, recurrent episode, moderate F33.1 ; Irregular heart rhythm I49.9 ; Essential hypertension I10 ; History of CVA with residual deficit I69.30 ; DM (diabetes mellitus) with complications E11.8 ; Gastroesophageal reflux disease, esophagitis presence not specified K21.9 ; Hyperlipidemia, unspecified hyperlipidemia type E78.5 ; 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 ; Other chronic pain G89.29 and Generalized anxiety disorder F41.1 [place] [id number] [place] [address] [phone] Oct, Generalized anxiety disorder F41.1 ; Major depressive disorder, recurrent episode, moderate F33.1 ; Essential hypertension I10 ; History of CVA with residual deficit I69.30 ; DM (diabetes mellitus) with complications E11.8 ; Gastroesophageal reflux disease, esophagitis presence not specified K21.9 ; Hyperlipidemia, unspecified hyperlipidemia type E78.5 ; Other chronic pain G89.29 and Bacterial conjunctivitis of left eye H10.[id number] [place] [phone] Sep, Chronic pain syndrome G89.4 and DM (diabetes mellitus) with complications E11.8 [place] [id number] [place] [address] [phone] Sep, Irregular heart rhythm I49.9 ; Routine health maintenance Z00.00 ; Essential hypertension I10 ; History of CVA with residual deficit I69.30 ; Gastroesophageal reflux disease, esophagitis presence not specified K21.9 ; DM (diabetes mellitus) with complications E11.8 ; Hyperlipidemia, unspecified hyperlipidemia type E78.5 and Other complicated headache syndrome G44.59 [facility] [address] [facility] [id number] [address] Jun, [facility] [address] [facility] [id number] [place] [address] Jun, [facility] [address] [facility] [id number] [address] Aug, [place] [address] [facility] [id number] [place] [address] Jun, IMMUNIZATIONS Vaccine Route Administration Date Status FLULAVAL QUAD 0.5ML (6 MO AND UP) 2017 IM Intramuscular Mar 04, 2018 Administered SOCIAL HISTORY Never Assessed REASON FOR VISIT UTI-burning and pain on urination, back pain early on and the patient had two Pyridium left and took them.--RHONDA Allen PLAN OF CARE Activity Details Follow Up if not improving or regular follow up with pcp Reason: VITAL SIGNS Height 62 in 2018-03-04 Weight 187 lbs 2018-03-04 Temperature 98. degrees Fahrenheit 2018-03-04 Heart Rate 84 bpm 2018-03-04 Respiratory Rate 20 2018-03-04 BMI 34.20 kg/m2 2018-03-04 Blood pressure systolic 116 mmHg 2018-03-04 Blood pressure diastolic 76 mmHg 2018-03-04 MEDICATIONS Medication Instructions Dosage Frequency Start Date End Date Duration Status Bath/Shower Seat 1 please provide one adult shower seat for patient use one time shower/bath seat for bathing Dec, Active Pantoprazole Sodium 20 mg Orally 2 times a day 1 tablets 12h May, 90 days Active Humalog 100 UNIT/ML Subcutaneous 3 times a day 10 units with meals 8h July, 12 months Active MetFORMIN HCl ER 750 MG Orally twice a day 1 tablet with meals 12h 90 days Active OneTouch Verio - TEST BLOOD SUGAR FOUR TIMES A DAY E11.8 30 Active Pen [place] 31 gauge subcutaneously twice a day DX: E11.8 as directed Active Test strips 8h Active Aspir-Low 81 mg TAKE ONE TABLET BY MOUTH DAILY 30 Active BD Pen Needle Mini U/F 31 gauge USE ONCE DAILY WITH INSULIN PENS 90 Active One Touch/One Touch II Starter 1 glucometer subcutaneously 3 times a day to take blood sugars daily Dispense as insurance allows 8h Sep, Active Zofran ODT 4 MG Orally every 4 hrs 1 tablet on the tongue and allow to dissolve as needed 4h 25 Nov, 2017 Active Naproxen 500 mg Orally bid prn 1 tablet Active Potassium Chloride ER 10 meq Orally Once a day 2 tablets with food 24h Active Hydrochlorothiazide 25 MG Orally Once a day 1 tablet 24h 90 days Active Levemir Flexpen 100 UNIT/ML Subcutaneous 2 times a day 25 units in AM and 35 units at HS 12h Active OneTouch Delica Lancets 33G 33 TEST BLOOD SUGAR THREE TIMES A DAY E11.8 Active Atorvastatin Calcium 80 MG TAKE ONE TABLET BY MOUTH DAILY Active Diltiazem HCl ER 120 MG Orally Once a day 1 capsule on an empty stomach in the morning 24h 90 days Active Phenazopyridine HCl 200 mg Orally Three times a day 1 tablet after meals 8h Feb, 2 day(s) Active Lancets - Active Plavix 75 MG Orally Once a day 1 tablet 24h 90 days Active Nystatin 986870 UNIT/ML Mouth/Throat Four times a day 5 ml 6h Jan, 15 days Active Aspir-Low 81 TAKE ONE TABLET BY MOUTH DAILY 30 Active Metoprolol Tartrate 25 MG Orally Twice a day 1 tablet with food 12h 90 days Active ProAir HFA 108 (90 Base) MCG/ACT Inhalation every 6 hrs 2 puffs as needed 6h Active Famotidine 20 mg Orally Twice a day 1 tablet 12h Apr, 90 days Active Walker - as directed Jan, Active Macrobid 100 mg Orally every 12 hrs 1 capsule with food 12h Feb, 5 days Active RESULTS No Results PROCEDURES Procedure Date Ordered Result Body Site URINALYSIS, AUTO, W/O SCOPE Mar 04, 2018 [facility] Mar [facility], 2018 [facility] VISIT ESTABLISHED PATIENT Mar 04, 2018 SINGLE IMMUNIZATION ADMIN Mar 04, 2018 FLULAVAL QUAD 0.5ML (6 MO AND UP) 2017Mar 04, 2018 INSTRUCTIONS MEDICATIONS ADMINISTERED No Known Medications MEDICAL (GENERAL) HISTORY Type Description Date Medical History diabetes mellitus Medical History hyperlipidemia Medical History hypertension Medical History Anxiety disorder Medical History Blood Clotting Disorder- [facility] Galvan at [facility] Medical History Possible Anemia (currently under work up) - Dr Galvan [facility] Medical [...] Has been hospitalized at then transfered to [facility]. 2014 Hospitalization History Child Hospitalization History abd pain and shakiness - [facility] ED visit [facility] Hospitalization History [facility] ED for URI 04/16/17 Hospitalization History via [facility] [place] er 08/16/17 Hospitalization History ER 11/2017
--- OUTSIDE RECORDS SUMMARY | 2018-03-13 11:59 | XMS REPORT | Clinical Summary ---
Author Author [facility] Organization [facility] Address Unknown Phone Unavailable Care Team Providers Care Manager Grocery Name Role Phone Unknown, Unknown Md PCP Unavailable Source Comments Some departments are not documenting in the electronic medical record. If you do not see the information that you expected, contact Release of Information in the Health Information Management department at [phone] for further assistance in locating additional records.[facility] Allergies Not on File Medications Not on file Active Problems Not on file Social History Date Tobacco Use Types Packs/Day Years Used Never Assessed Sex Assigned at Date Recorded Not on file Industry Job Start Date Occupation Not on file Not on file Not on file Travel End Travel History Travel Start No recent travel history available. Last Filed Vital Signs Not on file Plan of Treatment Health Maintenance Due Date Last Done Comments PHYSICAL (COMPREHENSIVE) 1976 EXAM HIV SCREENING 1984 DTAP/TDAP VACCINES (1 - 09/14/1987 Tdap) CERVICAL CANCER SCREENING 09/14/1999 BREAST CANCER SCREENING 2009 INFLUENZA VACCINE 10/19/2017 Results Not on filefrom Last 3 Months Advance Directives Patient has advance care planning documents on file. For more information, please contact: [facility] [address] [place] [address]
--- OUTSIDE RECORDS SUMMARY | 2018-03-13 12:00 | XMS REPORT ---
Author Author CHESTER JOYCE Organization [facility] Address [address] [place] [address] Care Team Providers Care Demolition Engineer Name Role Phone GRISELDA JOYCETA Unavailable PROBLEMS Type Condition ICD9-CM Code QWC97-EV Code Onset Dates Condition Status SNOMED Code Problem Tobacco abuse counseling Z71.6 Active 522228792 Problem History of CVA with residual deficit I69.30 Active 661207035 Problem Seasonal allergic rhinitis due to pollen J30.1 Active 43361860 Problem Panic disorder F41.0 Active 575126515 Problem Vitamin D deficiency E55.9 Active 23177704 Problem Abnormal drug screen R89.2 Active 605021660 Problem Type 2 diabetes mellitus with hyperglycemia E11.65 Active 86030484 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 Active 565698796 Problem Acute non intractable tension-type headache G44.209 Active 288173663 Problem Chronic pain syndrome G89.4 Active 680466691 Problem Generalized anxiety disorder F41.1 Active 44587277 Problem 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 Active 446915519 Problem Major depressive disorder, recurrent episode, moderate F33.1 Active 417634087 Problem Elevated liver enzymes R74.8 Active 776972485 Problem Gastroesophageal reflux disease, esophagitis presence not specified K21.9 Active 234993552 Problem Essential hypertension I10 Active 43052514 Problem DM (diabetes mellitus) with complications E11.8 Active 03648616 Problem Other chronic pain G89.29 Active 21573763 Problem Hyperlipidemia, unspecified hyperlipidemia type E78.5 Active 60731064 Problem Tobacco abuse Z72.0 Active 725768958 ALLERGIES Substance Reaction Event Type Date Status Penicillin V Potassium Unknown Drug Allergy Feb, Active Erythromycin Base Unknown Drug Allergy Feb, Active Bactrim DS rash and trouble breathing Drug Allergy Feb, Active Codeine Unknown Drug Allergy Feb, Active ENCOUNTERS Encounter Location Date Diagnosis [facility] [address] [facility] [id number] [address] Feb, [facility] [address], [place] [address] Feb, [address]40 [facility] [address], [place] [address] Jan, Oral thrush B37.0 [facility] [id number] [place] [address] 30875- 9883 Jan, [facility] [address], [place] [address] Jan, [facility] [address] [id number] [place] [address] 59148- 1777 Jan, [facility] [id number] [place] [address] 29403- 2311 Jan, [facility] [id number] [place] [address] 79283- 8495 Jan, Bronchitis J40 [facility] [address], [place] [address] Jan, [facility] [id number] [place] [address] 28484- 1168 Jan, [facility] [address], [place] [address] Dec, Hyperlipidemia, unspecified hyperlipidemia type E78.5 [facility] [address], [place] [address] Dec, C. difficile diarrhea A04.72 and Bronchitis J40 [facility] [address], [place] [address] Dec, [facility] [address], [place] [address] 376[address] Nov, C. difficile diarrhea A04.72 [facility] [address], [place] [address] 68[address] Nov, Panic disorder F41.0 [facility] [id number] [place] [address] 38913- 2783 25 Nov, 2017 Diarrhea, unspecified type R19.7 [facility] [id number] [place] [address] 33864- 9054 19 Nov, 2017 [facility] [address] [address]- 2168 13 Nov, 2017 Dysuria R30.0 ; Acute cystitis with hematuria N30.01 ; Flank pain R10.9 and Violation of controlled substance agreement Z91.14 [facility] [id number] [place] [address] 64888- 2647 Oct, [facility] [id number] [place] [address]76 -[address] Oct, [facility] [id number] [place] [address] 00568 -5113 Oct, Dysuria R30.0 and Acute cystitis with hematuria N30.01 [facility] [id number] [place] [address] 94971- 6121 Oct, [facility] [id number] [place] [address] 24778- 0316 Oct, [facility] [id number] [place] [address] 34421- 1852 Oct, Controlled substance agreement broken Z91.14 ; Violation of controlled substance agreement Z91.14 ; Other chronic pain G89.29 and Generalized anxiety disorder F41.1 [facility] [id number] [place] [address] 98939- 7513 Oct, [facility] [id number] [place] [address] 75965- 6917 Oct, [facility] [id number] [place] [address] 38862- 9060 Sep, Abscess L02.91 [place] [id number] [place] [address] 20622- 3471 Sep, [facility] [address] 38511- 4864 Sep, DM (diabetes mellitus) with complications E11.8 ; Generalized anxiety disorder F41.1 and Chronic pain syndrome G89.4 [place] [address] 25592- 6305 Sep, Generalized anxiety disorder F41.1 ; Chronic pain syndrome G89.4 ; Abnormal drug screen R89.2 and Other chest pain R07.89 [place] [address] 04020- 1352 Aug, Dysuria R30.0 [place] [address] 73918- 1132 Aug, Generalized anxiety disorder F41.1 ; Chronic pain syndrome G89.4 and Dysuria R30.0 [place] [address] 21334- 5705 Aug, Acute cystitis with hematuria N30.01 and Candidal dermatitis B37.2 [place] [address] 45318- 8431 Aug, Dysuria R30.0 [place] [address] 54613- 9291 Aug, [facility] [address] 81027 -3868 Aug, Dysuria R30.0 [place] [address] 29949- 0657 Aug, [facility] [address] 65873- 8755 July, Cervicalgia M54.2 ; Acute non intractable tension-type headache G44.209 ; Type 2 diabetes mellitus with hyperglycemia E11.65 and detention current use of insulin Z79.4 [place] [id number] [place] [address] 02038- 3388 July, Generalized anxiety disorder F41.1 and Chronic pain syndrome G89.4 [place] [id number] [place] [address] 61026- 8752 July, Abscess L02.91 [place] [id number] [place] [address] 07626- 3322 July, [place] [id number] [place] [address] 82852- 8073 July, [place] [address] 54607- 5916 July, Type 2 diabetes mellitus with hyperglycemia [...] pain syndrome G89.4 and Vaginal candidiasis B37.3 [place] [id number] [place] [address] 75516- 8849 Jun, Generalized anxiety disorder F41.1 and Other chronic pain G89.29 [place] [id number] [place] [address] 14507- 9152 Jun, [place] [id number] [place] [address] 89185- 6578 Jun, [place] [id number] [place] [address] 04016- 1932 Jun, Abnormal levels of other serum enzymes R74.8 [place] [id number] [place] [address] 63387- 0666 Jun, Abnormal levels of other serum enzymes R74.8 [facility] [id number] [place] [address] 14955- 0828 Jun, Elevated liver enzymes R74.8 [facility] [id number] [place] [address] 61779- 1469 Jun, Elevated liver enzymes R74.8 [facility] [address] 13010- 2363 May, Right upper quadrant pain R10.11 ; Cervicalgia M54.2 and High risk medication use Z79.899 [place] [address] 09430- 3799 May, Generalized anxiety disorder F41.1 and Other chronic pain G89.29 [facility] [address] 22654- 6480 May, Canker sores oral K12.0 [facility] [address] 21725- 5139 May, Generalized anxiety disorder F41.1 and Other chronic pain G89.29 [facility] [id number] [place] [address] 28103- 7896 May, [facility] [id number] [place] [address] 79024- 3560 Apr, [facility] [id number] [place] [address] 97662 -2389 Apr, Acute cystitis with hematuria N30.01 and Dysuria R30.0 [facility] [id number] [place] [address] 96455- 8650 Apr, [facility] [address] 52477- 9657 Apr, [facility] [id number] [place] [address] 63846- 7501 Apr, DM (diabetes mellitus) with complications E11.8 [facility] [id number] [place] [address] 98745- 1501 06 Apr, 2017 DM (diabetes mellitus) with complications E11.8 [facility] [id number] [place] [address] 67399- 7630 03 Apr, 2017 [facility] [address] 37701- 0486 Apr, [facility] [address] 24732- 5503 Apr, Other chronic pain G89.29 ; Generalized anxiety disorder F41.1 ; Cervicalgia M54.2 and Controlled substance agreement signed Z79.899 [facility] [id number] [place] [address] 42472 -0288 Mar, Abdominal pain R10.9 and Viral gastroenteritis A08.4 [place] [address] 44338- 8114 Mar, [facility] [address] 98387- 3463 Mar, [place] [id number] [place] [address] 19481- 2522 Mar, DM (diabetes mellitus) with complications E11.8 ; Type 2 diabetes mellitus with hyperglycemia E11.65 ; detention current use of insulin Z79.4 ; Essential hypertension I10 ; Bronchitis J40 ; Major depressive disorder , recurrent episode, moderate F33.1 ; Hyperlipidemia, unspecified hyperlipidemia type E78.5 ; Tobacco abuse Z72.0 ; Tobacco abuse counseling Z71.6 ; History of CVA with residual deficit I69.30 ; Gastroesophageal reflux disease, esophagitis presence not specified K21.9 and 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 [place] [id number] [place] [address] 54158- 5463 Mar, [place] [address] 84278- 8169 Mar, DM (diabetes mellitus) with complications E11.8 ; Abnormal lung sounds R09.89 ; Bronchitis J40 and Hyperlipidemia, unspecified hyperlipidemia type E78.5 [facility] [address] 77526 -0181 Mar, URI, acute J06.9 [place] [address] 74565- 1648 Mar, [place] [address] 75637- 9103 Mar, DM (diabetes mellitus) with complications E11.8 [place] [address] 39617- 6398 Mar, Other chronic pain G89.29 and Generalized anxiety disorder F41.1 [place] [address] 16109- 9203 Feb, [place] [address] 98256- 7238 Feb, Mass of left lung R91.8 and Cervicalgia M54.2 [place] [address] 03154- 3575 Feb, [place] [address] 16479- 3983 Feb, [facility] [place] [address] 29116 -3741 Feb, Cough R05 and Bronchitis J40 [facility] [place] [address] 96274 -7102 07 Feb, 2017 Acute nasopharyngitis J00 and Bronchitis J40 [place] [address] 23388- 6648 06 Feb, 2017 Other chronic pain G89.29 and Generalized anxiety disorder F41.1 [place] [address] 72616- 7618 Jan, Encounter for immunization Z23 [facility] [address] 92448 -0203 Jan, [facility] [place] [address] 65748 -3395 Jan, [place] [address] 49716- 1160 Jan, Canker sores oral K12.0 [place] [address] 44104- 1581 Jan, [place] [address] 73761- 9678 07 Jan, 2017 Other chronic pain G89.29 and Generalized anxiety disorder F41.[address] 68995- 2527 06 Jan, 2017 Cough R05 and Bronchitis J40 [facility] [place] [address] 18801 -2021 Jan, Bronchitis J40 [place] [address] 81657- 4932 Dec, Vitamin D deficiency E55.9 [place] [address] 42280- 4594 Dec, DM (diabetes mellitus) with complications E11.8 [place] [address] 01234- 7732 Dec, DM (diabetes mellitus) with complications E11.8 and Vitamin D deficiency E55.9 [place] [address] 75657- 2545 Dec, DM (diabetes mellitus) with complications E11.8 ; Essential hypertension I10 ; Hyperlipidemia, unspecified hyperlipidemia type E78.5 ; Vitamin D deficiency E55.9 ; Gastroesophageal reflux disease, esophagitis presence not specified K21.9 ; 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 ; Other chronic pain G89.29 ; Encounter for immunization Z23 and Generalized anxiety disorder F41.1 [place] [id number] [place] [address] 00185- 7649 12 Nov, 2016 History of CVA with residual deficit I69.30 [facility] [id number] [place] [address] 48494- 5081 11 Nov, 2016 DM (diabetes mellitus) with complications E11.8 [place] [address] 28450- 2544 06 Nov, 2016 Left otitis media with effusion H65.92 ; Bronchitis J40 and Canker sores oral K12.[address] 53065- 8087 Oct, [place] [address] 91781- 6645 Oct, DM (diabetes mellitus) with complications E11.8 [place] [address] 50302- 1751 02 Oct, 2016 [place] [id number] [place] [address] 58326- 9346 Sep, DM (diabetes mellitus) with complications E11.8 [place] [id number] [place] [address] 21885- 5808 Sep, DM (diabetes mellitus) with complications E11.8 ; Essential hypertension I10 ; Gastroesophageal reflux disease, esophagitis presence not specified K21.9 ; Hyperlipidemia, unspecified hyperlipidemia type E78.5 ; Tobacco abuse Z72.0 ; Vitamin D deficiency E55.9 ; History of CVA with residual deficit I69.30 and Seasonal allergic rhinitis due to pollen J30.1 [place] [id number] [place] [address] 81808- 6910 Sep, [place] [id number] [place] [address] 86475- 5680 Aug, [facility] [id number] [place] [address] 30619 -6729 Aug, Dysuria R30.0 ; Acute cystitis with hematuria N30.01 and Middle ear effusion, right H65.91 [facility] [id number] [place] [address] 90159- 3489 Aug, Other complicated headache syndrome G44.59 [facility] [id number] [place] [address] 71568- 7376 Aug, DM (diabetes mellitus) with complications E11.8 [facility] [id number] [place] [address] 83752- 6450 14 Aug, 2016 Dysuria R30.0 [facility] [id number] [place] [address] 60877- 2637 Aug, Dysuria R30.0 [facility] [id number] [place] [address] 82161- 1363 Aug, [facility] [id number] [place] [address] 13760- 8950 July, [facility] [id number] [place] [address] 54203- 2926 July, [facility] [id number] [place] [address] 26055- 1558 July, DM (diabetes mellitus) with complications E11.8 [facility] [id number] [place] [address] 63603- 2526 July, Other complicated headache syndrome G44.59 [facility] [id number] [place] [address] 04958- 4652 July, [facility] [id number] [place] [address] 44066 -5411 July, Dysuria R30.0 and Acute cystitis with hematuria N30.01 [facility] [id number] [place] [address] 25329- 2351 July, [facility] [id number] [place] [address] 47245- 1450 July, Other complicated headache syndrome G44.59 [facility] [address] 96[address] -1989 Jun, Exposure to strep throat Z20.818 and Acute upper respiratory infection, unspecified J06.9 [place] [address] 77139- 8370 Jun, [place] [address] 93922- 9645 Jun, DM (diabetes mellitus) with complications E11.8 and Gastroesophageal reflux disease, esophagitis presence not specified K21.9 [place] [address] 01120- 9529 Jun, [place] [address] 31763- 2430 Jun, Dizziness R42 [facility] [address] 44847 -4082 Jun, [place] [address] 98485- 5984 Jun, [facility] [place] [address] 63349 -5999 May, Seasonal allergic rhinitis, unspecified allergic rhinitis trigger J30.2 [place] [address] 24266- 6897 May, [place] [address] 93691- 9111 May, DM (diabetes mellitus) with complications E11.8 [...] J30.1 [facility] [address], [place] [address]- 7274 16 May, 2016 Gastroesophageal reflux disease, esophagitis presence not specified K21.9 [facility] [id number] [place] [address] 22357- 3925 10 May, 2016 [facility] [id number] [place] [address] 35879- 0320 Apr, [facility] [id number] [place] [address] 50977- 3759 Apr, [facility] [id number] [place] [address] 14710- 6485 Mar, [facility] [id number] [place] [address] 56732- 9065 Mar, [facility] [id number] [place] [address] 87347- 5133 Mar, [facility] [id number] [place] [address] 26933- 8002 Mar, [facility] [id number] [place] [address] 05544- 7473 Feb, [facility] [id number] [place] [address] 54678- 7585 Feb, [facility] [id number] [place] [address] 84397- 9351 Feb, [facility] [id number] [place] [address] 76863- 8210 Feb, Major depressive disorder, recurrent episode, moderate F33.1 ; Generalized anxiety disorder F41.1 ; Essential hypertension I10 ; DM ( diabetes mellitus) with complications E11.8 ; Hyperlipidemia, unspecified hyperlipidemia type E78.5 ; 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 and Gastroesophageal reflux disease, esophagitis presence not specified K21.9 [facility] [address] [place] [address] Feb, Other viral agents as the cause of diseases classified elsewhere B97.89 and Acute upper respiratory infection, unspecified J06.9 [facility] [id number] [place] [address] 81818- 6488 Jan, [facility] [id number] [place] [address] 98540- 1489 Jan, [facility] [id number] [place] [address] 34928 -4588 Jan, Acute bronchitis, unspecified organism J20.9 [facility] [id number] [place] [address] 44451- 8862 Jan, [facility] [id number] [place] [address] 93443- 3968 Jan, History of CVA with residual deficit I69.30 [place] [id number] [place] [address] 91243- 4057 Jan, [facility] [id number] [place] [address] 63065- 3080 Jan, Acute bronchitis, unspecified organism J20.9 [facility] [id number] [place] [address] 78302- 4734 Jan, [facility] [id number] [place] [address] 10567- 8768 Dec, History of CVA with residual deficit I69.30 [facility] [id number] [place] [address] 93415- 4731 Dec, [facility] [address] [id number] [place] [address] 04004- 1722 Dec, Other chronic pain G89.29 ; DM (diabetes mellitus) with complications E11.8 and History of CVA with residual deficit I69.30 [facility] [id number] [place] [address] 09614- 8639 30 Nov, 2015 Major depressive disorder, recurrent [...] and Generalized anxiety disorder F41.1 [place] [address] [place] [id number] [place] [address] 65737- 0277 Oct, Generalized anxiety disorder F41.1 ; Major depressive disorder, recurrent episode, moderate F33.1 ; Essential hypertension I10 ; History of CVA with residual deficit I69.30 ; DM (diabetes mellitus) with complications E11.8 ; Gastroesophageal reflux disease, esophagitis presence not specified K21.9 ; Hyperlipidemia, unspecified hyperlipidemia type E78.5 ; Other chronic pain G89.29 and Bacterial conjunctivitis of left eye H10.9 [place] [id number] [place] [address] 46135- 1097 Sep, Chronic pain syndrome G89.4 and DM (diabetes mellitus) with complications E11.8 [place] [id number] [place] [address] 92772- 0522 Sep, Irregular heart rhythm I49.9 ; Routine health maintenance Z00.00 ; Essential hypertension I10 ; History of CVA with residual deficit I69.30 ; Gastroesophageal reflux disease, esophagitis presence not specified K21.9 ; DM (diabetes mellitus) with complications E11.8 ; Hyperlipidemia, unspecified hyperlipidemia type E78.5 and Other complicated headache syndrome G44.59 [place] [id number] [place] [id number] [place] [address] [phone] Jun, [place] [address] [place] [id number] [place] [address] [phone] Jun, [place] [address] [id number] [place] [address] [phone] Aug, [place] [id number] [place] [address] [phone] Jun, IMMUNIZATIONS No Known Immunizations SOCIAL HISTORY Never Assessed REASON FOR VISIT f/u ER for bronchitis [facility], Flu shot [facility] PLAN OF CARE Activity Details Follow Up 2 Weeks Reason:CHM/DM VITAL SIGNS Height 62 in 2018-02-22 Weight 188.3 lbs 2018-02-22 Temperature 97.9 degrees Fahrenheit 2018-02-22 Heart Rate 90 bpm 2018-02-22 Respiratory Rate 20 2018-02-22 BMI 34.44 kg/m2 2018-02-22 Blood pressure systolic 122 mmHg 2018-02-22 Blood pressure diastolic 68 mmHg 2018-02-22 MEDICATIONS Medication Instructions Dosage Frequency Start Date End Date Duration Status Aspir-Low 81 TAKE ONE TABLET BY MOUTH DAILY 30 Active BD Pen Needle Mini U/F 31 gauge USE ONCE DAILY WITH INSULIN PENS 90 Active Humalog 100 UNIT/ML Subcutaneous 3 times a day 10 units with meals 8h July, 12 months Active One Touch/One Touch II [...] tablet with food 12h 90 days Active Diltiazem HCl ER 120 MG Orally Once a day 1 capsule on an empty stomach in the morning 24h 90 days Active Potassium Chloride ER 10 meq Orally Once a day 2 tablets with food 24h Active Test strips 8h Active Naproxen 500 mg Orally bid prn 1 tablet Active Atorvastatin Calcium 80 MG Orally Once a day 1 tablet 24h 90 days Active Protom InternationalTouch Verio - TEST BLOOD SUGAR FOUR TIMES A DAY E11.8 30 Active Pantoprazole Sodium 20 mg Orally 2 times a day 1 tablets 12h May, 90 days Active Lancets - Active Bath/Shower Seat 1 please provide one adult shower seat for patient use one time shower/bath seat for bathing Dec, Active Zofran ODT 4 MG Orally every 4 hrs 1 tablet on the tongue and allow to dissolve as needed 4h Nov, Active Nystatin 581688 UNIT/ML Mouth/Throat Four times a day 5 ml 6h Jan, 15 days Active Pen [place] 31 gauge subcutaneously twice a day DX: E11.8 as directed Active Hydrochlorothiazide 25 MG Orally Once a day 1 tablet 24h 90 days Active OneTouch Delica Lancets 33G 33 TEST BLOOD SUGAR THREE TIMES A DAY E11.8 Active Aspir-Low 81 mg TAKE ONE TABLET BY MOUTH DAILY 30 Active Levemir Flexpen 100 UNIT/ML Subcutaneous 2 times a day 25 units in AM and 35 units at HS 12h Active Walker - as directed Jan, Active MetFORMIN HCl ER 750 MG Orally twice a day 1 tablet with meals 12h 90 days Active RESULTS No Results PROCEDURES Procedure Date Ordered Result Body Site [facility] VISIT ESTABLISHED PATIENT Feb 22, 2018 INSTRUCTIONS MEDICATIONS ADMINISTERED No Known Medications MEDICAL (GENERAL) HISTORY Type Description Date Medical History diabetes mellitus Medical History hyperlipidemia Medical History hypertension Medical History Anxiety disorder Medical History Blood Clotting Disorder- Dr Galvan at [facility] Medical History Possible Anemia (currently under work up) - Dr Galvan [facility] Medical History irregular heart beat-sees [...] Has been hospitalized at then transfered to [place]. 2014 Hospitalization History Child Hospitalization History abd pain and shakiness - [facility] ED visit [facility] Hospitalization History [facility] ED for URI 04/16/17 Hospitalization History via [facility] er 08/16/17 Hospitalization History ER 11/2017
--- OUTSIDE RECORDS SUMMARY | 2018-03-13 12:00 | XMS REPORT ---
Author Author CHESTER JOYCE Organization [facility] Address [address] [place] [address] Care Team Providers Care Replenishment Analyst Name Role Phone KING CHESTER Unavailable PROBLEMS Type Condition ICD9-CM Code TBI44-CB Code Onset Dates Condition Status SNOMED Code Problem Tobacco abuse counseling Z71.6 Active 230768140 Problem History of CVA with residual deficit I69.30 Active 324828889 Problem Seasonal allergic rhinitis due to pollen J30.1 Active 90853481 Problem Panic disorder F41.0 Active 100478045 Problem Vitamin D deficiency E55.9 Active 43709980 Problem Abnormal drug screen R89.2 Active 500315247 Problem Type 2 diabetes mellitus with hyperglycemia E11.65 Active 61254527 Problem 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 Active 298636106 Problem Acute non intractable tension-type headache G44.209 Active 932650716 Problem Chronic pain syndrome G89.4 Active 742190649 Problem Generalized anxiety disorder F41.1 Active 71921776 Problem 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 Active 164077892 Problem Major depressive disorder, recurrent episode, moderate F33.1 Active 065927042 Problem Elevated liver enzymes R74.8 Active 352364118 Problem Gastroesophageal reflux disease, esophagitis presence not specified K21.9 Active 322792828 Problem Essential hypertension I10 Active 08412525 Problem DM (diabetes mellitus) with complications E11.8 Active 22458847 Problem Other chronic pain G89.29 Active 66186817 Problem Hyperlipidemia, unspecified hyperlipidemia type E78.5 Active 33562351 Problem Tobacco abuse Z72.0 Active 834400169 ALLERGIES No Information ENCOUNTERS Encounter Location Date Diagnosis [facility] [address] [facility] [id number] [address] Feb, [facility] [address] [facility] [id number] [address] Feb, [facility] [address] [address] Feb, Dysuria R30.0 ; Urinary tract infection, site not specified N39.0 and Encounter for immunization Z23 [facility] [address] [address] 05 Feb, 2018 Bronchitis J40 [facility] [address] [id number] [place] [address] 27815 -7159 Jan, Oral thrush B37.0 [facility] [id number] [place] [address] 02602- 2863 Jan, [facility] [id number] [place] [address] 49376- 0710 Jan, [facility] [id number] [place] [address] 15312- 6341 Jan, [facility] [id number] [place] [address] 80303- 9920 Jan, [facility] [id number] [place] [address] 39106- 6201 Jan, Bronchitis J40 [facility] [id number] [place] [address] 00268- 4534 Jan, [facility] [address] [place] [address] 63248- 6687 Jan, [facility] [id number] [place] [address] 55819- 1120 Dec, Hyperlipidemia, unspecified hyperlipidemia type E78.5 [facility] [id number] [place] [address] 65649- 5011 Dec, C. difficile diarrhea A04.72 and Bronchitis J40 [facility] [address] [place] [address] 66120- 8720 Dec, [facility] [id number] [place] [address] 49084- 7728 Nov, C. difficile diarrhea A04.72 [facility] [id number] [place] [address] 73286- 5868 26 Nov, 2017 Panic disorder F41.0 [facility] [id number] [place] [address] 35014- 4325 25 Nov, 2017 Diarrhea, unspecified type R19.7 [place] [address] 07101- 1219 19 Nov, 2017 [place] [address] [place] [id number] [place] [address] 67722- 6117 13 Nov, 2017 Dysuria R30.0 ; Acute cystitis with hematuria N30.01 ; Flank pain R10.9 and Violation of controlled substance agreement Z91.14 [place] [address] [place] [id number] [place] [address] 44533- 5086 16 Oct, 2017 [facility] [id number] [place] [address] 27312 -0866 Oct, [facility] [id number] [place] [address] 41486 -1161 Oct, Dysuria R30.0 and Acute cystitis with hematuria N30.01 [place] [address] [place] [address] 81531- 5699 Oct, [place] [address] [place] [id number] [place] [address] 83984- 0617 Oct, [facility] [id number] [place] [address] 84213- 7082 Oct, Controlled substance agreement broken Z91.14 ; Violation of controlled substance agreement Z91.14 ; Other chronic pain G89.29 and Generalized anxiety disorder F41.1 [place] [address] [place] [address] 23850- 7113 Oct, [facility] [id number] [place] [address] 15307- 8904 Oct, [place] [address] [place] [id number] [place] [address] 78445- 7549 Sep, Abscess L02.91 [facility] [address] 74708- 4754 Sep, [facility] [address] 82758- 6041 Sep, DM (diabetes mellitus) with complications E11.8 ; Generalized anxiety disorder F41.1 and Chronic pain syndrome G89.4 [facility] [address] 43231- 9899 Sep, Generalized anxiety disorder F41.1 ; Chronic pain syndrome G89.4 ; Abnormal drug screen R89.2 and Other chest pain R07.89 [place] [address] 27488- 2621 Aug, Dysuria R30.0 [place] [address] 42543- 8481 Aug, Generalized anxiety disorder F41.1 ; Chronic pain syndrome G89.4 and Dysuria R30.0 [place] [address] 35888- 6566 Aug, Acute cystitis with hematuria N30.01 and Candidal dermatitis B37.2 [place] [address] [address] [id number] [place] [address] 80265- 7976 Aug, Dysuria R30.0 [facility] [id number] [place] [address] 89140- 0119 Aug, [facility] [address] 60436 -7742 Aug, Dysuria R30.0 [facility] [id number] [place] [address] 98275- 0112 Aug, [facility] [address] 03696- 8385 July, Cervicalgia M54.2 ; Acute non intractable tension-type headache G44.209 ; Type 2 diabetes mellitus with hyperglycemia E11.65 and residential current use of insulin Z79.4 [place] [address] [id number] [place] [address] 94402- 3055 July, Generalized anxiety disorder F41.1 and Chronic pain syndrome G89.4 [place] [address] 54052- 6068 July, Abscess L02.91 [place] [address] 64917- 6838 July, [place] [address] 76830- 6950 July, [place] [address] [place] [address] [id number] [place] [address] 78226- 6810 July, Type 2 diabetes mellitus with hyperglycemia E11.65 ; 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 ; [...] pain syndrome G89.4 and Vaginal candidiasis B37.3 [place] [address] [id number] [place] [address] 16193- 7574 Jun, Generalized anxiety disorder F41.1 and Other chronic pain G89.29 [place] [address] [place] [address] [id number] [place] [address] 30775- 2210 Jun, [place] [address] [place] [address] [id number] [place] [address] 24817- 8759 Jun, [place] [address] 92805- 3117 Jun, Abnormal levels of other serum enzymes R74.8 [facility] [id number] [place] [address] 61483- 0251 Jun, Abnormal levels of other serum enzymes R74.8 [facility] [id number] [place] [address] 64980- 1502 Jun, Elevated liver enzymes R74.8 [facility] [id number] [place] [address] 69352- 8317 Jun, Elevated liver enzymes R74.8 [facility] [id number] [place] [address] 64331- 4822 May, Right upper quadrant pain R10.11 ; Cervicalgia M54.2 and High risk medication use Z79.899 [facility] [id number] [place] [address] 32136- 5969 May, Generalized anxiety disorder F41.1 and Other chronic pain G89.29 [facility] [id number] [place] [address] 00060- 9606 May, Canker sores oral K12.0 [place] [address] 33004- 5820 May, Generalized anxiety disorder F41.1 and Other chronic pain G89.29 [facility] [id number] [place] [address] 83854- 1657 May, [facility] [id number] [place] [address] 09601- 0481 Apr, [facility] [id number] [place] [address] 37485 -6927 Apr, Acute cystitis with hematuria N30.01 and Dysuria R30.0 [facility] [id number] [place] [address] 57343- 3066 Apr, [facility] [id number] [place] [address] 38923- 6651 Apr, [facility] [address] [place] [address] 61927- 7644 08 Apr, 2017 DM (diabetes mellitus) with complications E11.8 [facility] [id number] [place] [address] 75834- 8747 06 Apr, 2017 DM (diabetes mellitus) with complications E11.8 [place] [address] [id number] [place] [address] 16162- 9100 03 Apr, 2017 [place] [address] [id number] [place] [address] 92670- 6883 02 Apr, 2017 [place] [address] 07965- 3609 Apr, Other chronic pain G89.29 ; Generalized anxiety disorder F41.1 ; Cervicalgia M54.2 and Controlled substance agreement signed Z79.899 [facility] [id number] [place] [address] 06462 -0133 Mar, Abdominal pain R10.9 and Viral gastroenteritis A08.4 [place] [address] [id number] [place] [address] 80079- 6313 Mar, [place] [address] [place] [address] [id number] [place] [address] 17565- 6011 Mar, [place] [address] [place] [address] [id number] [place] [address] 23116- 7827 Mar, DM (diabetes mellitus) with complications E11.8 [...] not specified K21.9 and 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 [place] [address] [place] [id number] [place] [address] 26010- 0007 Mar, [facility] [id number] [place] [address] 43945- 9225 Mar, DM (diabetes mellitus) with complications E11.8 ; Abnormal lung sounds R09.89 ; Bronchitis J40 and Hyperlipidemia, unspecified hyperlipidemia type E78.5 [facility] [address] 03203 -8991 Mar, URI, acute J06.9 [place] [address] 38137- 0326 Mar, [place] [address] 10078- 9734 Mar, DM (diabetes mellitus) with complications E11.8 [place] [address] 02797- 2778 Mar, Other chronic pain G89.29 and Generalized anxiety disorder F41.1 [place] [address] 82236- 1699 Feb, [place] [address] 88895- 5055 Feb, Mass of left lung R91.8 and Cervicalgia M54.2 [place] [address] 12278- 3662 Feb, [place] [address] 28822- 9546 Feb, [facility] [address] 73205 -7375 Feb, Cough R05 and Bronchitis J40 [facility] [place] [address] 98527 -3660 Feb, Acute nasopharyngitis J00 and Bronchitis J40 [place] [address] 42724- 3476 Feb, Other chronic pain G89.29 and Generalized anxiety disorder F41.1 [facility] [address] 29852- 0459 29 Jan, 2017 Encounter for immunization Z23 [facility] [address] 35422 -9258 Jan, [facility] [address] 39411 -0289 Jan, [facility] [address] 56684- 7945 Jan, Canker sores oral K12.0 [place] [address] 52863- 8851 14 Jan, 2017 [place] [address] 61261- 9985 07 Jan, 2017 Other chronic pain G89.29 and Generalized anxiety disorder F41.1 [place] [address] 35385- 9258 06 Jan, 2017 Cough R05 and Bronchitis J40 [facility] [place] [address] 39321 -4809 04 Jan, 2017 Bronchitis J40 [place] [address] 03309- 9980 Dec, Vitamin D deficiency E55.9 [place] [address] 04197- 4431 Dec, DM (diabetes mellitus) with complications E11.8 [place] [address] 11855- 7364 Dec, DM (diabetes mellitus) with complications E11.8 and Vitamin D deficiency E55.9 [place] [address] 67897- 4924 Dec, DM (diabetes mellitus) with complications E11.8 ; Essential hypertension I10 ; Hyperlipidemia, unspecified hyperlipidemia type E78.5 ; Vitamin D deficiency E55.9 ; Gastroesophageal reflux disease, esophagitis presence not specified K21.9 ; 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 ; Other chronic pain G89.29 ; Encounter for immunization Z23 and Generalized anxiety disorder F41.1 [place] [address] [id number] [place] [address] 89366- 8029 12 Nov, 2016 History of CVA with residual deficit I69.30 [place] [address] 61968- 1848 11 Nov, 2016 DM (diabetes mellitus) with complications E11.8 [place] [address] 43863- 0429 06 Nov, 2016 Left otitis media with effusion H65.92 ; Bronchitis J40 and Canker sores oral K12.[address] 77123- 5968 Oct, [address] 13723- 7622 Oct, DM (diabetes mellitus) with complications E11.8 [place] [address] 96106- 7382 Oct, [place] [address] 02169- 7176 Sep, DM (diabetes mellitus) with complications E11.8 [place] [address] [place] [id number] [place] [address] 68151- 1502 Sep, DM (diabetes mellitus) with complications E11.8 ; Essential hypertension I10 ; Gastroesophageal reflux disease, esophagitis presence not specified K21.9 ; Hyperlipidemia, unspecified hyperlipidemia type E78.5 ; Tobacco abuse Z72.0 ; Vitamin D deficiency E55.9 ; History of CVA with residual deficit I69.30 and Seasonal allergic rhinitis due to pollen J30.1 [place] [address] [place] [id number] [place] [address] 73748- 7795 Sep, [place] [address] 40468- 4745 Aug, [facility] [address] [place] [address] 81381 -7136 Aug, Dysuria R30.0 ; Acute cystitis with hematuria N30.01 and Middle ear effusion, right H65.91 [facility] [id number] [place] [address] 20283- 6109 Aug, Other complicated headache syndrome G44.59 [facility] [id number] [place] [address] 51987- 5011 Aug, DM (diabetes mellitus) with complications E11.8 [facility] [id number] [place] [address] 08567- 9050 Aug, Dysuria R30.0 [facility] [id number] [place] [address] 14757- 0516 Aug, Dysuria R30.0 [facility] [id number] [place] [address] 31768- 3023 Aug, [facility] [id number] [place] [address] 68164- 5260 July, [facility] [id number] [place] [address] 86340- 7662 July, [facility] [id number] [place] [address] 77870- 4575 July, DM (diabetes mellitus) with complications E11.8 [facility] [id number] [place] [address] 31050- 4473 July, Other complicated headache syndrome G44.59 [facility] [id number] [place] [address] 25862- 7986 July, [facility] [id number] [place] [address] 33921 -0470 July, Dysuria R30.0 and Acute cystitis with hematuria N30.01 [facility] [id number] [place] [address] 68332- 9419 July, [place] [address] [place] [address] [id number] [place] [address] 31262- 4353 July, Other complicated headache syndrome G44.59 [facility] [address] 39465 -8825 Jun, Exposure to strep throat Z20.818 and Acute upper respiratory infection, unspecified J06.9 [place] [address] 43102- 2111 Jun, [place] [address] 89641- 7834 Jun, DM (diabetes mellitus) with complications E11.8 and Gastroesophageal reflux disease, esophagitis presence not specified K21.[address] 62887- 4180 Jun, [place] [address] 76099- 4538 Jun, Dizziness R42 [facility] [place] [address] [place] [place] [id number] [place] [address] 76187 -7772 Jun, [place] [address] [place] [id number] [place] [address] 76309- 1907 Jun, [facility] [place] [address] [place] [address] [id number] [place] [address] 86585 -3034 May, Seasonal allergic rhinitis, unspecified allergic rhinitis trigger J30.2 [place] [address] [place] [address] [id number] [place] [address] 12996- 0226 May, [address] 92545- 7216 May, DM (diabetes mellitus) with complications E11.8 [...] Seasonal allergic rhinitis due to pollen J30.1 [facility] [id number] [place] [address] 28756- 8877 May, Gastroesophageal reflux disease, esophagitis presence not specified K21.9 [facility] [id number] [place] [address] 72410- 2597 May, [facility] [id number] [place] [address] 10261- 5143 Apr, [facility] [id number] [place] [address] 50947- 8999 Apr, [facility] [id number] [place] [address] 38280- 5208 Mar, [facility] [id number] [place] [address] 68053- 0076 Mar, [facility] [id number] [place] [address] 58468- 1708 Mar, [facility] [address] [id number] [place] [address] 30768- 1356 Mar, [facility] [id number] [place] [address] 15179- 4445 Feb, [facility] [address] [id number] [place] [address] 24313- 2908 Feb, [facility] [address] [place] [address] 46671- 2977 Feb, [facility] [address] [address] [id number] [place] [address] 98643- 3836 Feb, Major depressive disorder, recurrent episode, moderate F33.1 ; Generalized anxiety disorder F41.1 ; Essential hypertension I10 ; DM ( diabetes mellitus) with complications E11.8 ; Hyperlipidemia, unspecified hyperlipidemia type E78.5 ; 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 and Gastroesophageal reflux disease, esophagitis presence not specified K21.9 [facility] [address] [place] [address] 56604 -2700 Feb, Other viral agents as the cause of diseases classified elsewhere B97.89 and Acute upper respiratory infection, unspecified J06.9 [facility] [address] [place] [address] 45122- 3031 Jan, [facility] [address] [place] [address] [id number] [place] [address] 76296- 2488 Jan, [facility] [address] [address] [id number] [place] [address] 40606 -5031 Jan, Acute bronchitis, unspecified organism J20.9 [facility] [address] [place] [id number] [place] [address] 93158- 0969 Jan, [facility] [address] [place] [id number] [place] [address] 39597- 7990 Jan, History of CVA with residual deficit I69.30 [place] [address] [place] [id number] [place] [address] 08275- 7326 Jan, [facility] [address] [place] [id number] [place] [address] 92888- 4918 Jan, Acute bronchitis, unspecified organism J20.9 [facility] [address] [place] [id number] [place] [address] 39616- 0633 Jan, [facility] [address] [place] [id number] [place] [address] 72105- 9313 Dec, History of CVA with residual deficit I69.30 [place] [address] [place] [id number] [place] [address] 08903- 4887 Dec, [place] [address] [place] [id number] [place] [address] 66333- 9376 Dec, Other chronic pain G89.29 ; DM (diabetes mellitus) with complications E11.8 and History of CVA with residual deficit I69.30 [place] [address] [place] [address] 04788- 1913 Nov, Major depressive disorder, recurrent episode, moderate F33.1 ; Irregular heart rhythm I49.9 ; Essential hypertension I10 ; History of CVA with residual deficit I69.30 ; DM (diabetes mellitus) with complications E11.8 ; Gastroesophageal reflux disease, esophagitis presence not specified K21.9 ; Hyperlipidemia, unspecified hyperlipidemia type E78.5 ; 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 ; Other chronic pain G89.29 and Generalized anxiety disorder F41.1 [place] [id number] [place] [address] 36826- 4888 Oct, Generalized anxiety disorder F41.1 ; Major depressive disorder, recurrent episode, moderate F33.1 ; Essential hypertension I10 ; History of CVA with residual deficit I69.30 ; DM (diabetes mellitus) with complications E11.8 ; Gastroesophageal reflux disease, esophagitis presence not specified K21.9 ; Hyperlipidemia, unspecified hyperlipidemia type E78.5 ; Other chronic pain G89.29 and Bacterial conjunctivitis of left eye H10.9 [place] [id number] [place] [address] 77219- 1727 Sep, Chronic pain syndrome G89.4 and DM (diabetes mellitus) with complications E11.8 [place] [id number] [place] [address] 56759- 2069 Sep, Irregular heart rhythm I49.9 ; Routine health maintenance Z00.00 ; Essential hypertension I10 ; History of CVA with residual deficit I69.30 ; Gastroesophageal reflux disease, esophagitis presence not specified K21.9 ; DM (diabetes mellitus) with complications E11.8 ; Hyperlipidemia, unspecified hyperlipidemia type E78.5 and Other complicated headache syndrome G44.59 [place] [id number] [place] [address] 06627- 0303 Jun, [place] [id number] [place] [address] 34557- 3146 Jun, [place] [id number] [place] [address] 54490- 0990 Aug, [facility] [address] [facility] [id number] [place] [address] Jun, IMMUNIZATIONS No Known Immunizations SOCIAL HISTORY [...] Clotting Disorder- Dr Galvan at [facility] History Possible Anemia (currently under work up) - Dr Galvan [facility] History irregular heart beat-sees [...] been hospitalized at then transfered to [place]. 2014 Hospitalization History Child Hospitalization History abd pain and shakiness - [facility] ED visit [facility] Hospitalization History [facility] ED for URI 04/16/17 Hospitalization History [facility] er 08/16/17 Hospitalization History ER 11/2017
--- OUTSIDE RECORDS SUMMARY | 2018-03-13 12:01 | XMS REPORT ---
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 Name Role Phone STELLA MCDONALD Unavailable PROBLEMS Type Condition ICD9-CM Code [id number] Code Onset Dates Condition Status SNOMED Code Problem Tobacco abuse counseling Z71.6 Active 421776479 Problem History of CVA with residual deficit I69.30 Active 955576336 Problem Seasonal allergic rhinitis due to pollen J30.1 Active 52623879 Problem Panic disorder F41.0 Active 254726277 Problem Vitamin D deficiency E55.9 Active 74695276 Problem Abnormal drug screen R89.2 Active 340046234 Problem Type 2 diabetes mellitus with hyperglycemia E11.65 Active 10863282 Problem intermission coordinator current use of insulin Z79.4 Active 449807386 Problem Acute non intractable tension-type headache G44.209 Active 475340851 Problem Chronic pain syndrome G89.4 Active 294149583 Problem Generalized anxiety disorder F41.1 Active 47565273 Problem 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 Active 900779009 Problem Major depressive disorder, recurrent episode, moderate F33.1 Active 352399380 Problem Elevated liver enzymes R74.8 Active 415594582 Problem Gastroesophageal reflux disease, esophagitis presence not specified K21.9 Active 307574206 Problem Essential hypertension I10 Active 76668271 Problem DM (diabetes mellitus) with complications E11.8 Active 26450391 Problem Other chronic pain G89.29 Active 33612814 Problem Hyperlipidemia, unspecified hyperlipidemia type E78.5 Active 34350337 Problem Tobacco abuse Z72.0 Active 694410201 ALLERGIES Substance Reaction Event Type Date Status Penicillin V Potassium Unknown Drug Allergy Oct, Active Erythromycin Base Unknown Drug Allergy Oct, Active Bactrim DS rash and trouble breathing Drug Allergy Oct, Active Codeine Unknown Drug Allergy Oct, Active ENCOUNTERS Encounter Location Date Diagnosis [facility] [address] [address] Feb, [facility] [address] [address] Jan, Oral thrush B37.0 [facility] [address] [address] Jan, [facility] [id number] [place] [address] 70404- 6577 Jan, [facility] [id number] [place] [address] 78016- 3370 Jan, [facility] [id number] [place] [address] 98861- 8880 Jan, [facility] [id number] [place] [address] 55427- 9591 Jan, Bronchitis J40 [facility] [id number] [place] [address] 74037- 0405 Jan, [facility] [id number] [place] [address] 36694- 7462 Jan, [facility] [id number] [place] [address] 69006- 2450 Dec, Hyperlipidemia, unspecified hyperlipidemia type E78.5 [facility] [address] [address] Dec, C. difficile diarrhea A04.72 and Bronchitis J40 [facility] [address] [address] Dec, [facility] [id number] [place] [address] 37991- 9363 Nov, C. difficile diarrhea A04.72 [facility] [address] [address] Nov, Panic disorder F41.0 [facility] [address] [address] 25 Nov, 2017 Diarrhea, unspecified type R19.7 [facility] [id number] [place] [address] 46841- 6741 19 Nov, 2017 [facility] [id number] [place] [address] 44279- 2810 13 Nov, 2017 Dysuria R30.0 ; Acute cystitis with hematuria N30.01 ; Flank pain R10.9 and Violation of controlled substance agreement Z91.14 [facility] [address] [address] 16 Oct, 2017 [facility] [id number] [place] [address] 13432 [address]8240 Oct, [facility] [id number] [place] [address] 22293 -4032 14 Oct, 2017 Dysuria R30.0 and Acute cystitis with hematuria N30.01 [facility] [address] [address] 24[address] Oct, [facility] [id number] [place] [address] 27650- 2917 Oct, [facility] [address] [address] Oct, Controlled substance agreement broken Z91.14 ; Violation of controlled substance agreement Z91.14 ; Other chronic pain G89.29 and Generalized anxiety disorder F41.1 [facility] [address] [address] Oct, [facility] [id number] [place] [address] 53227- 5730 Oct, [facility] [address] [address] 88[address] Sep, Abscess L02.91 [facility] [id number] [place] [address] 05130- 6825 Sep, [facility] [id number] [place] [address] 65968- 3888 Sep, DM (diabetes mellitus) with complications E11.8 ; Generalized anxiety disorder F41.1 and Chronic pain syndrome G89.4 [facility] [id number] [place] [address] 15864- 9386 Sep, Generalized anxiety disorder F41.1 ; Chronic pain syndrome G89.4 ; Abnormal drug screen R89.2 and Other chest pain R07.89 [place] [address] 77329- 3795 Aug, Dysuria R30.0 [place] [address] 56793- 3386 Aug, Generalized anxiety disorder F41.1 ; Chronic pain syndrome G89.4 and Dysuria R30.0 [place] [address] 98356- 4911 Aug, Acute cystitis with hematuria N30.01 and Candidal dermatitis B37.2 [place] [address] 55657- 7549 Aug, Dysuria R30.0 [facility] [id number] [place] [address] 86167- 1787 Aug, [facility] [id number] [place] [address] 99810 -6278 Aug, Dysuria R30.0 [facility] [id number] [place] [address] 18478- 5796 Aug, [facility] [address] 99748- 8040 July, Cervicalgia M54.2 ; Acute non intractable tension-type headache G44.209 ; Type 2 diabetes mellitus with hyperglycemia E11.65 and intermission coordinator current use of insulin Z79.4 [place] [address] 28512- 7222 July, Generalized anxiety disorder F41.1 and Chronic pain syndrome G89.4 [facility] [id number] [place] [address] 38200- 5421 July, Abscess L02.91 [facility] [id number] [place] [address] 05768- 5377 July, [facility] [id number] [place] [address] 92269- 7811 July, [facility] [id number] [place] [address] 45359- 0511 July, Type 2 diabetes mellitus with hyperglycemia [...] pain syndrome G89.4 and Vaginal candidiasis B37.3 [facility] [id number] [place] [address] 20080- 0309 Jun, Generalized anxiety disorder F41.1 and Other chronic pain G89.29 [facility] [place] [id number] [place] [address] 02737- 3496 Jun, [facility] [id number] [place] [address] 92684- 5937 Jun, [facility] [id number] [place] [address] 64203- 6188 Jun, Abnormal levels of other serum enzymes R74.8 [facility] [id number] [place] [address] 25120- 9886 Jun, Abnormal levels of other serum enzymes R74.8 [facility] [id number] [place] [address] 40365- 2111 Jun, Elevated liver enzymes R74.8 [facility] [address] 61784- 0714 Jun, Elevated liver enzymes R74.8 [facility] [address] 35512- 7936 May, Right upper quadrant pain R10.11 ; Cervicalgia M54.2 and High risk medication use Z79.899 [facility] [id number] [place] [address] 49782- 9420 May, Generalized anxiety disorder F41.1 and Other chronic pain G89.29 [place] [address] 34190- 0757 May, Canker sores oral K12.0 [place] [address] 61547- 0067 May, Generalized anxiety disorder F41.1 and Other chronic pain G89.29 [facility] [id number] [place] [address] 92171- 3373 May, [facility] [address] 58853- 8013 Apr, [facility] [id number] [place] [address] 73866 -6477 Apr, Acute cystitis with hematuria N30.01 and Dysuria R30.0 [facility] [id number] [place] [address] 76368- 2829 Apr, [facility] [address] 62447- 3851 Apr, [facility] [id number] [place] [address] 34982- 6622 Apr, DM (diabetes mellitus) with complications E11.8 [facility] [address] [place] [address] 06 Apr, 2017 DM (diabetes mellitus) with complications E11.8 [facility] [address] 64716- 8978 Apr, [facility] [address] 01956- 8189 Apr, [facility] [address] 52479- 0356 Apr, Other chronic pain G89.29 ; Generalized anxiety disorder F41.1 ; Cervicalgia M54.2 and Controlled substance agreement signed Z79.899 [facility] [address] 51698 -4890 Mar, Abdominal pain R10.9 and Viral gastroenteritis A08.[address] 10406- 8149 Mar, [place] [address] 95951- 4684 Mar, [facility] [address] 64003- 8564 Mar, DM (diabetes mellitus) with complications E11.8 [...] not specified K21.9 and 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 03143- 8909 Mar, [place] [address] 69000- 6792 Mar, DM (diabetes mellitus) with complications E11.8 ; Abnormal lung sounds R09.89 ; Bronchitis J40 and Hyperlipidemia, unspecified hyperlipidemia type E78.5 [facility] [address] 86330 -0811 Mar, URI, acute J06.9 [facility] [address] 42770- 6248 Mar, [place] [address] 23643- 7531 Mar, DM (diabetes mellitus) with complications E11.8 [place] [address] 15972- 7392 Mar, Other chronic pain G89.29 and Generalized anxiety disorder F41.1 [place] [address] 75102- 9774 Feb, [place] [address] 12385- 0990 Feb, Mass of left lung R91.8 and Cervicalgia M54.2 [place] [address] 18111- 5653 Feb, [place] [address] 09887- 7198 Feb, [facility] [address] 47631 -5938 Feb, Cough R05 and Bronchitis J40 [facility] [address] 44821 -2957 Feb, Acute nasopharyngitis J00 and Bronchitis J40 [place] [address] 54293- 9973 Feb, Other chronic pain G89.29 and Generalized anxiety disorder F41.1 [facility] [address] 71694- 3926 Jan, Encounter for immunization Z23 [facility] [address] [place] [address] Jan, [facility] [address] 85799 -0611 Jan, [place] [address] 80611- 0551 Jan, Canker sores oral K12.0 [place] [address] 14945- 2616 14 Jan, 2017 [place] [address] 41085- 7970 07 Jan, 2017 Other chronic pain G89.29 and Generalized anxiety disorder F41.1 [place] [address] 61412- 0509 06 Jan, 2017 Cough R05 and Bronchitis J40 [facility] [address] 10618 -5770 Jan, Bronchitis J40 [place] [address] 49783- 4523 Dec, Vitamin D deficiency E55.9 [place] [address] 63330- 7834 Dec, DM (diabetes mellitus) with complications E11.[address] 95626- 3128 Dec, DM (diabetes mellitus) with complications E11.8 and Vitamin D deficiency E55.9 [place] [address] 95299- 3078 Dec, DM (diabetes mellitus) with complications E11.8 ; Essential hypertension I10 ; Hyperlipidemia, unspecified hyperlipidemia type E78.5 ; Vitamin D deficiency E55.9 ; Gastroesophageal reflux disease, esophagitis presence not specified K21.9 ; 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 ; Other chronic pain G89.29 ; Encounter for immunization Z23 and Generalized anxiety disorder F41.1 [place] [address] 34408- 4158 12 Nov, 2016 History of CVA with residual deficit I69.30 [place] [address] 30353- 0924 Nov, DM (diabetes mellitus) with complications E11.8 [facility] [id number] [place] [address] 31269- 8216 06 Nov, 2016 Left otitis media with effusion H65.92 ; Bronchitis J40 and Canker sores oral K12.0 [place] [id number] [place] [address] 21998- 3108 Oct, [place] [address] 83609- 4861 Oct, DM (diabetes mellitus) with complications E11.8 [place] [address] 15191- 1182 Oct, [place] [address] 11846- 4112 Sep, DM (diabetes mellitus) with complications E11.8 [place] [id number] [place] [address] 56840- 2685 Sep, DM (diabetes mellitus) with complications E11.8 ; Essential hypertension I10 ; Gastroesophageal reflux disease, esophagitis presence not specified K21.9 ; Hyperlipidemia, unspecified hyperlipidemia type E78.5 ; Tobacco abuse Z72.0 ; Vitamin D deficiency E55.9 ; History of CVA with residual deficit I69.30 and Seasonal allergic rhinitis due to pollen J30.1 [place] [id number] [place] [address] 18256- 4396 Sep, [place] [address] 96485- 9892 Aug, [facility] [id number] [place] [address] 66989 -2106 Aug, Dysuria R30.0 ; Acute cystitis with hematuria N30.01 and Middle ear effusion, right H65.91 [facility] [address] [address]- 9944 Aug, Other complicated headache syndrome G44.59 [facility] [id number] [place] [address] 01093- 4186 Aug, DM (diabetes mellitus) with complications E11.8 [facility] [id number] [place] [address] 23576- 9860 14 Aug, 2016 Dysuria R30.0 [facility] [id number] [place] [address] 64632- 8414 Aug, Dysuria R30.0 [facility] [id number] [place] [address] 52507- 1152 Aug, [facility] [id number] [place] [address] 32468- 7333 July, [facility] [id number] [place] [address] 68051- 8137 July, [facility] [id number] [place] [address] 61363- 7081 July, DM (diabetes mellitus) with complications E11.8 [facility] [address] [address]- 9201 July, Other complicated headache syndrome G44.59 [facility] [address] [address] July, [facility] [address] [address]78 July, Dysuria R30.0 and Acute cystitis with hematuria N30.01 [facility] [address] [place] [address] 37896- 9264 July, [facility] [address] [address]- 3032 July, Other complicated headache syndrome G44.59 [facility] [address] 62795 -7132 Jun, Exposure to strep throat Z20.818 and Acute upper respiratory infection, unspecified J06.9 [place] [address] 75610- 5836 Jun, [place] [address] 81416- 5994 Jun, DM (diabetes mellitus) with complications E11.8 and Gastroesophageal reflux disease, esophagitis presence not specified K21.9 [place] [address] 07820- 9167 Jun, [place] [address] 38155- 8792 Jun, Dizziness R42 [facility] [place] [address] 63308 -2161 Jun, [place] [address] 12127- 7044 Jun, [facility] [address] 08395 -9249 May, Seasonal allergic rhinitis, unspecified allergic rhinitis trigger J30.2 [place] [address] 90375- 1569 May, [place] [address] 80684- 4981 May, DM (diabetes mellitus) with complications E11.8 [...] Seasonal allergic rhinitis due to pollen J30.1 [place] [address] 03897- 2762 May, Gastroesophageal reflux disease, esophagitis presence not specified K21.9 [facility] [address] [place] [address] 29492- 9541 May, [facility] [id number] [place] [address] 77480- 6044 Apr, [facility] [id number] [place] [address] 91540- 7603 Apr, [facility] [id number] [place] [address] 13769- 3926 Mar, [facility] [id number] [place] [address] 07337- 8625 Mar, [facility] [id number] [place] [address] 04476- 8653 Mar, [facility] [id number] [place] [address] 87790- 3904 Mar, [facility] [id number] [place] [address] 66412- 8751 Feb, [facility] [id number] [place] [address] 28992- 9950 Feb, [facility] [address] [address]- 4012 Feb, [facility] [id number] [place] [address] 77990- 5427 Feb, Major depressive disorder, recurrent episode, moderate F33.1 ; Generalized anxiety disorder F41.1 ; Essential hypertension I10 ; DM ( diabetes mellitus) with complications E11.8 ; Hyperlipidemia, unspecified hyperlipidemia type E78.5 ; 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 and Gastroesophageal reflux disease, esophagitis presence not specified K21.9 [facility] [address] [address] Feb, Other viral agents as the cause of diseases classified elsewhere B97.89 and Acute upper respiratory infection, unspecified J06.9 [facility] [id number] [place] [address] 87064- 7412 Jan, [facility] [id number] [place] [address] 36643- 3133 Jan, [facility] [id number] [place] [address] 02582 -2433 Jan, Acute bronchitis, unspecified organism J20.9 [facility] [id number] [place] [address] 23081- 5615 Jan, [facility] [id number] [place] [address] 11208- 3583 Jan, History of CVA with residual deficit I69.30 [place] [id number] [place] [address] 15792- 1670 Jan, [facility] [id number] [place] [address] 47918- 6647 Jan, Acute bronchitis, unspecified organism J20.9 [facility] [id number] [place] [address] 48597- 3954 Jan, [facility] [id number] [place] [address] 43578- 5025 Dec, History of CVA with residual deficit I69.30 [place] [id number] [place] [address] 60328- 3589 Dec, [facility] [id number] [place] [address] 67509- 2077 Dec, Other chronic pain G89.29 ; DM (diabetes mellitus) with complications E11.8 and History of CVA with residual deficit I69.30 [facility] [id number] [place] [address] 15769- 8799 Nov, Major depressive disorder, recurrent episode, moderate F33.1 ; Irregular heart rhythm I49.9 ; Essential hypertension I10 ; History of CVA with residual deficit I69.30 ; DM (diabetes mellitus) with complications E11.8 ; Gastroesophageal reflux disease, esophagitis presence not specified K21.9 ; Hyperlipidemia, unspecified hyperlipidemia type E78.5 ; 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 ; Other chronic pain G89.29 and Generalized anxiety disorder F41.[id number] [place] [address] 50612- 6456 Oct, Generalized anxiety disorder F41.1 ; Major depressive disorder, recurrent episode, moderate F33.1 ; Essential hypertension I10 ; History of CVA with residual deficit I69.30 ; DM (diabetes mellitus) with complications E11.8 ; Gastroesophageal reflux disease, esophagitis presence not specified K21.9 ; Hyperlipidemia, unspecified hyperlipidemia type E78.5 ; Other chronic pain G89.29 and Bacterial conjunctivitis of left eye H10.9 [place] [id number] [place] [address] 01380- 3356 Sep, Chronic pain syndrome G89.4 and DM (diabetes mellitus) with complications E11.8 [place] [id number] [place] [address] 07540- 5653 Sep, Irregular heart rhythm I49.9 ; Routine health maintenance Z00.00 ; Essential hypertension I10 ; History of CVA with residual deficit I69.30 ; Gastroesophageal reflux disease, esophagitis presence not specified K21.9 ; DM (diabetes mellitus) with complications E11.8 ; Hyperlipidemia, unspecified hyperlipidemia type E78.5 and Other complicated headache syndrome G44.59 [place] [id number] [place] [address] 19110- 6204 Jun, [place] [id number] [place] [address] 08467- 2421 Jun, [address] 71414- 0636 Aug, [place] [id number] [place] [address] 52080- 7845 Jun, IMMUNIZATIONS No Known Immunizations SOCIAL HISTORY Never Assessed REASON FOR VISIT dysuria et frequency since last noc. lmp...started 5 days ago...currently on period. [email or web address] PLAN OF CARE Activity Details Follow Up prn Reason: VITAL SIGNS Height 62 in 2017-11-01 Weight 197.2 lbs 2017-11-01 Temperature 98.6 degrees Fahrenheit 2017-11-01 Heart Rate 80 bpm 2017-11-01 Respiratory Rate 20 2017-11-01 BMI 36.06 kg/m2 2017-11-01 Blood pressure systolic 122 mmHg 2017-11-01 Blood pressure diastolic 76 mmHg 2017-11-01 MEDICATIONS Medication Instructions Dosage Frequency Start Date End Date Duration Status One Touch/One Touch II Starter 1 glucometer subcutaneously 3 times a day to take blood sugars daily Dispense as insurance allows 8h Sep, Active Famotidine 20 mg Orally Twice a day 1 tablet 12h Apr, 90 days Active Humalog 100 UNIT/ML Subcutaneous 3 times a day 10 units with meals 8h July, 12 months Active Metoprolol Tartrate 25 MG Orally Twice a day 1 tablet with food 12h 90 days Active OneTouch Verio - TEST BLOOD SUGAR FOUR TIMES A DAY E11.8 30 Active Levemir Flexpen 100 UNIT/ML Subcutaneous 2 times a day 35 units 12h 12 months Active Test strips 8h Active Aspir-Low 81 TAKE ONE TABLET BY MOUTH DAILY 30 Active Lancets - Active OneTouch Delica Lancets 33G 33 TEST BLOOD SUGAR THREE TIMES A DAY E11.8 Active Walker - as directed Jan, Active Pen Barnard 31 gauge subcutaneously twice a day DX: E11.8 as directed Active Hydrocodone-Acetaminophen 10-325 MG Orally 3 times a day 1 tablet as needed 8h Oct, Oct, 14 days Active Plavix 75 MG Orally Once a day 1 tablet 24h 90 days Active Diltiazem HCl ER 120 MG Orally Once a day 1 capsule on an empty stomach in the morning 24h 90 days Active Atorvastatin Calcium 80 MG Orally Once a day 1 tablet 24h 90 days Active Onglyza 5 mg Orally Once a day 1 tablet 24h 90 days Active AZO Cranberry 250-30 MG Active Senna S 8.6-50 MG Orally twice a day 1 tablet 12h July, 90 days Active Pantoprazole Sodium 20 mg Orally 2 times a day 1 tablets 12h May, 90 days Active MetFORMIN HCl ER 750 MG Orally twice a day 1 tablet with meals 12h 90 days Active ASA Oral Once a day 1 tab 24h Active Pyridium 200 MG Orally Three times a day 1 tablet after meals 8h Oct, 16 Oct, 2017 2 day(s) Active Xanax 1 MG Orally 3 times a day 1 tablet 8h 14 days Active Hydrochlorothiazide 25 MG Orally Once [...] ONCE DAILY WITH INSULIN PENS 90 Active Macrobid 100 MG Orally every 12 hrs 1 capsule with food 12h Oct, Oct, 7 day(s) Active RESULTS No Results PROCEDURES Procedure Date Ordered Result Body Site URINALYSIS, AUTO, W/O SCOPE Nov 01, 2017 LAB NOT BILLED BY [facility] Nov 01, 2017 [facility] VISIT ESTABLISHED PATIENT Nov 01, 2017 INSTRUCTIONS MEDICATIONS ADMINISTERED No Known Medications MEDICAL (GENERAL) HISTORY Type Description Date Medical History diabetes mellitus Medical History hyperlipidemia Medical History hypertension Medical History Anxiety disorder Medical History Blood Clotting Disorder- Dr Galvan at [facility] Medical History Possible Anemia (currently under work up) - Dr Galvan [facility] Medical History irregular heart beat-sees dr. hassan Medical History history of pancreatitis Medical History gerd Medical History History of CVA with residual deficit Medical History Other complicated headache syndrome Medical History Stokes syndrome Surgical History tubal ligation Surgical History section Surgical History cholecystectomy Surgical History Toe Nail Removal x2 Hospitalization History Brain Stem Strokes x5. Has been hospitalized at then transfered to [place]. 2014 Hospitalization History Child Hospitalization History abd pain and shakiness - [facility] ED visit [facility] Hospitalization History [facility] ED for URI 04/16/17 Hospitalization History via [facility] 08/16/17
--- OUTSIDE RECORDS SUMMARY | 2018-03-13 12:01 | XMS REPORT ---
Author Author ZEYAD CRAWFORD [facility] IN [facility] Address [address] [place] [address] Care Team Providers Care Inventory Taker Name Role Phone ZEYAD CRAWFORD Unavailable PROBLEMS Type Condition ICD9-CM Code NBT40-KZ Code Onset Dates Condition Status SNOMED Code Problem Tobacco abuse counseling Z71.6 Active 121512520 Problem History of CVA with residual deficit I69.30 Active 473571798 Problem Seasonal allergic rhinitis due to pollen J30.1 Active 79330650 Problem Panic disorder F41.0 Active 320300337 Problem Vitamin D deficiency E55.9 Active 81471388 Problem Abnormal drug screen R89.2 Active 960270440 Problem Type 2 diabetes mellitus with hyperglycemia E11.65 Active 07482243 Problem long term care pharmacist current use of insulin Z79.4 Active 316543013 Problem Acute non intractable tension-type headache G44.209 Active 277065599 Problem Chronic pain syndrome G89.4 Active 580086302 Problem Generalized anxiety disorder F41.1 Active 07794304 Problem 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 Active 817401284 Problem Major depressive disorder, recurrent episode, moderate F33.1 Active 421215224 Problem Elevated liver enzymes R74.8 Active 417302579 Problem Gastroesophageal reflux disease, esophagitis presence not specified K21.9 Active 051918019 Problem Essential hypertension I10 Active 69180457 Problem DM (diabetes mellitus) with complications E11.8 Active 00980782 Problem Other chronic pain G89.29 Active 97002222 Problem Hyperlipidemia, unspecified hyperlipidemia type E78.5 Active 33785264 Problem Tobacco abuse Z72.0 Active 302581924 ALLERGIES Substance Reaction Event Type Date Status Penicillin V Potassium Unknown Drug Allergy Jan, Active Erythromycin Base Unknown Drug Allergy Jan, Active Bactrim DS rash and trouble breathing Drug Allergy Jan, Active Codeine Unknown Drug Allergy Jan, Active ENCOUNTERS Encounter Location Date Diagnosis [facility] [id number] [address] Feb, [facility] [id number] [address] Jan, Oral thrush B37.0 [facility] [id number] [address] Jan, [facility] [id number] [place] [address] 71441- 0123 Jan, [facility] [id number] [address] 1014 Jan, [facility] [id number] [place] [address] 29912- 0518 Jan, [facility] [id number] [place] [address] 59006- 8212 Jan, Bronchitis J40 [facility] [id number] [place] [address] 98647- 9331 Jan, [facility] [id number] [place] [address] 00664- 2830 Jan, [facility] [id number] [place] [address] 00564- 5176 Dec, Hyperlipidemia, unspecified hyperlipidemia type E78.5 [facility] [id number] [place] [address] 56861- 2452 Dec, C. difficile diarrhea A04.72 and Bronchitis J40 [facility] [id number] [address] 6961 Dec, [facility] [id number] [place] [address] 76196- 4694 Nov, C. difficile diarrhea A04.72 [facility] [id number] [address] 0849 Nov, Panic disorder F41.0 [facility] [id number] [place] [address] 40017- 5854 25 Nov, 2017 Diarrhea, unspecified type R19.7 [facility] [id number] [place] [address] 41214- 6622 19 Nov, 2017 [facility] [id number] [place] [address] 08985- 0490 13 Nov, 2017 Dysuria R30.0 ; Acute cystitis with hematuria N30.01 ; Flank pain R10.9 and Violation of controlled substance agreement Z91.14 [facility] [id number] [place] [address] 88233- 3939 16 Oct, 2017 [facility] [id number] [place] [address] 26793 -2553 Oct, [facility] [id number] [place] [address] 71667 -6236 14 Oct, 2017 Dysuria R30.0 and Acute cystitis with hematuria N30.01 [facility] [id number] [place] [address] 55824- 0358 Oct, [facility] [id number] [place] [address] 31139- 0864 Oct, [facility] [id number] [place] [address] 71013- 9645 Oct, Controlled substance agreement broken Z91.14 ; Violation of controlled substance agreement Z91.14 ; Other chronic pain G89.29 and Generalized anxiety disorder F41.1 [facility] [id number] [address] 7346 Oct, [facility] [id number] [place] [address] 19981- 3666 Oct, [facility] [id number] [place] [address] 88317- 3607 Sep, Abscess L02.91 [facility] [id number] [place] [address] 95477- 2689 Sep, [place] [id number] [place] [address] 81580- 8675 Sep, DM (diabetes mellitus) with complications E11.8 ; Generalized anxiety disorder F41.1 and Chronic pain syndrome G89.4 [facility] [id number] [place] [address] 16197- 1429 Sep, Generalized anxiety disorder F41.1 ; Chronic pain syndrome G89.4 ; Abnormal drug screen R89.2 and Other chest pain R07.89 [facility] [id number] [place] [address] 46026- 1772 Aug, Dysuria R30.0 [place] [address] 04060- 5882 Aug, Generalized anxiety disorder F41.1 ; Chronic pain syndrome G89.4 and Dysuria R30.0 [place] [address] 49395- 8212 Aug, Acute cystitis with hematuria N30.01 and Candidal dermatitis B37.2 [place] [id number] [place] [address] 74428- 3372 Aug, Dysuria R30.0 [place] [id number] [place] [address] 19442- 8475 Aug, [facility]ALK IN [facility] [id number] [place] [address] 01432 -7687 Aug, Dysuria R30.0 [facility] [id number] [place] [address] 11511- 6774 Aug, [facility] [id number] [place] [address] 34691- 3441 July, Cervicalgia M54.2 ; Acute non intractable tension-type headache G44.209 ; Type 2 diabetes mellitus with hyperglycemia E11.65 and long term care pharmacist current use of insulin Z79.4 [place] [id number] [place] [address] 55130- 0517 July, Generalized anxiety disorder F41.1 and Chronic pain syndrome G89.4 [place] [id number] [place] [address] 46026- 2167 July, Abscess L02.91 [place] [id number] [place] [address] 40751- 9242 July, [place] [id number] [place] [address] 30097- 2053 July, [place] [id number] [place] [address] 43461- 6206 July, Type 2 diabetes mellitus with hyperglycemia E11.65 ; long term care pharmacist current use of insulin Z79.4 ; Elevated [...] G89.4 and Vaginal candidiasis B37.3 [place] [id number] [place] [address] 26965- 3278 Jun, Generalized anxiety disorder F41.1 and Other chronic pain G89.29 [place] [id number] [place] [address] 29322- 5975 Jun, [place] [id number] [place] [address] 18153- 5510 Jun, [place] [id number] [place] [address] 96052- 7950 Jun, Abnormal levels of other serum enzymes R74.8 [place] [id number] [place] [address] 98672- 8205 Jun, Abnormal levels of other serum enzymes R74.8 [place] [id number] [place] [address] 61048- 5408 Jun, Elevated liver enzymes R74.8 [facility] [id number] [place] [address] 80204- 1564 Jun, Elevated liver enzymes R74.8 [facility] [id number] [place] [address] 36478- 8364 30 May, 2017 Right upper quadrant pain R10.11 ; Cervicalgia M54.2 and High risk medication use Z79.899 [facility] [id number] [place] [address] 83837- 8707 May, Generalized anxiety disorder F41.1 and Other chronic pain G89.29 [place] [address] 89562- 8863 May, Canker sores oral K12.0 [place] [address] 21447- 4047 May, Generalized anxiety disorder F41.1 and Other chronic pain G89.29 [facility] [id number] [place] [address] 77541- 1726 May, [facility] [address] 22350- 6767 Apr, [facility] [id number] [place] [address] 38506 -1978 Apr, Acute cystitis with hematuria N30.01 and Dysuria R30.0 [facility] [id number] [place] [address] 23211- 9819 Apr, [facility] [id number] [place] [address] 71597- 8799 Apr, [facility] [id number] [place] [address] 77713- 5836 Apr, DM (diabetes mellitus) with complications E11.8 [facility] [id number] [place] [address] 89199- 8735 Apr, DM (diabetes mellitus) with complications E11.8 [facility] [id number] [place] [address] 60194- 9729 Apr, [facility] [id number] [place] [address] 80782- 3934 Apr, [facility] [address] 96813- 0743 Apr, Other chronic pain G89.29 ; Generalized anxiety disorder F41.1 ; Cervicalgia M54.2 and Controlled substance agreement signed Z79.899 [facility]ALK IN [facility] [address] 92485 -5978 Mar, Abdominal pain R10.9 and Viral gastroenteritis A08.4 [place] [address] 16097- 6044 Mar, [place] [address] 11972- 7813 Mar, [facility] [id number] [place] [address] 64944- 6880 Mar, DM (diabetes mellitus) with complications E11.8 ; Type 2 diabetes mellitus with hyperglycemia E11.65 ; long term care pharmacist current use of insulin Z79.4 ; Essential hypertension I10 ; Bronchitis J40 ; Major depressive disorder , recurrent episode, moderate F33.1 ; Hyperlipidemia, unspecified hyperlipidemia type E78.5 ; Tobacco abuse Z72.0 ; Tobacco abuse counseling Z71.6 ; History of CVA with residual deficit I69.30 ; Gastroesophageal reflux disease, esophagitis presence not specified K21.9 and 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 [place] [address] 15938- 9544 Mar, [facility] [id number] [place] [address] 12007- 5923 Mar, DM (diabetes mellitus) with complications E11.8 ; Abnormal lung sounds R09.89 ; Bronchitis J40 and Hyperlipidemia, unspecified hyperlipidemia type E78.5 [facility] [address] 25461 -4252 Mar, URI, acute J06.9 [place] [address] 68068- 4363 Mar, [place] [address] 12182- 1226 Mar, DM (diabetes mellitus) with complications E11.8 [place] [address] 76625- 5946 Mar, Other chronic pain G89.29 and Generalized anxiety disorder F41.1 [place] [address] 76507- 9973 Feb, [place] [address] 79398- 8941 Feb, Mass of left lung R91.8 and Cervicalgia M54.2 [place] [address] 54311- 4004 Feb, [place] [address] 26616- 5184 Feb, [facility] [address] 84334 -5221 Feb, Cough R05 and Bronchitis J40 [facility] [address] 66656 -6334 07 Feb, 2017 Acute nasopharyngitis J00 and Bronchitis J40 [place] [address] 55689- 1404 Feb, Other chronic pain G89.29 and Generalized anxiety disorder F41.1 [place] [address] 74512- 5805 Jan, Encounter for immunization Z23 [facility] [address] 99476 -2711 Jan, [facility] [address] 43801 -5079 Jan, [place] [address] 45179- 0139 Jan, Canker sores oral K12.[address] 35371- 8580 Jan, [place] [address] 29388- 7292 Jan, Other chronic pain G89.29 and Generalized anxiety disorder F41.[address] 23585- 4124 06 Jan, 2017 Cough R05 and Bronchitis J40 [facility] [place] [address] 55816 -9785 Jan, Bronchitis J40 [place] [address] 34059- 9891 Dec, Vitamin D deficiency E55.9 [place] [address] 54503- 7702 Dec, DM (diabetes mellitus) with complications E11.[address] 49412- 2242 Dec, DM (diabetes mellitus) with complications E11.8 and Vitamin D deficiency E55.9 [place] [address] 60487- 6846 Dec, DM (diabetes mellitus) with complications E11.8 ; Essential hypertension I10 ; Hyperlipidemia, unspecified hyperlipidemia type E78.5 ; Vitamin D deficiency E55.9 ; Gastroesophageal reflux disease, esophagitis presence not specified K21.9 ; 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 ; Other chronic pain G89.29 ; Encounter for immunization Z23 and Generalized anxiety disorder F41.1 [place] [address] 18526- 1152 Nov, History of CVA with residual deficit I69.30 [place] [id number] [place] [address] 72178- 6552 Nov, DM (diabetes mellitus) with complications E11.8 [place] [id number] [place] [address] 42140- 1659 06 Nov, 2016 Left otitis media with effusion H65.92 ; Bronchitis J40 and Canker sores oral K12.0 [place] [id number] [place] [address] 55427- 6763 Oct, [address] 48569- 4044 Oct, DM (diabetes mellitus) with complications E11.8 [place] [id number] [place] [address] 42763- 8360 Oct, [place] [id number] [place] [address] 02535- 0848 Sep, DM (diabetes mellitus) with complications E11.8 [place] [id number] [place] [address] 41739- 5093 Sep, DM (diabetes mellitus) with complications E11.8 ; Essential hypertension I10 ; Gastroesophageal reflux disease, esophagitis presence not specified K21.9 ; Hyperlipidemia, unspecified hyperlipidemia type E78.5 ; Tobacco abuse Z72.0 ; Vitamin D deficiency E55.9 ; History of CVA with residual deficit I69.30 and Seasonal allergic rhinitis due to pollen J30.[address] [place] [address] 30321- 1291 Sep, [place] [id number] [place] [address] 37337- 6608 Aug, [facility] [place] [id number] [place] [address] 87521 -2442 Aug, Dysuria R30.0 ; Acute cystitis with hematuria N30.01 and Middle ear effusion, right H65.[address] [address]- 6236 Aug, Other complicated headache syndrome G44.59 [facility] [id number] [place] [address] 37459- 2496 Aug, DM (diabetes mellitus) with complications E11.8 [facility] [id number] [place] [address] 83877- 9342 14 Aug, 2016 Dysuria R30.0 [facility] [id number] [place] [address] 79204- 9252 Aug, Dysuria R30.0 [facility] [id number] [place] [address] 28188- 6772 Aug, [facility] [id number] [place] [address] 68919- 1961 July, [facility] [id number] [place] [address] 59392- 4196 July, [facility] [id number] [place] [address] 91908- 5013 July, DM (diabetes mellitus) with complications E11.8 [facility] [id number] [place] [address] 77228- 1679 July, Other complicated headache syndrome G44.59 [facility] [id number] [address]- 1232 July, [facility] [id number] [address] July, Dysuria R30.0 and Acute cystitis with hematuria N30.01 [facility] [id number] [place] [address] 56898- 9812 July, [facility] [id number] [place] [address] 48100- 2986 July, Other complicated headache syndrome G44.59 [facility] [address] 62426 -3492 Jun, Exposure to strep throat Z20.818 and Acute upper respiratory infection, unspecified J06.9 [place] [address] 87364- 2714 Jun, [place] [address] 12684- 8946 Jun, DM (diabetes mellitus) with complications E11.8 and Gastroesophageal reflux disease, esophagitis presence not specified K21.9 [place] [address] 26806- 1411 Jun, [place] [address] 90989- 2820 Jun, Dizziness R42 [facility] [address] 95272 -4731 Jun, [place] [address] 34005- 0377 Jun, [facility] [address] 16081 -4745 May, Seasonal allergic rhinitis, unspecified allergic rhinitis trigger J30.2 [place] [address] 55359- 2845 May, [place] [address] 17466- 2334 May, DM (diabetes mellitus) with complications E11.8 [...] Seasonal allergic rhinitis due to pollen J30.1 [place] [address] 39177- 9422 May, Gastroesophageal reflux disease, esophagitis presence not specified K21.9 [facility] [address] [address]- 3196 May, [facility] [address] [address]- 2852 Apr, [facility] [address] [address]- 2299 Apr, [facility] [id number] [place] [address] 53930- 0514 Mar, [facility] [id number] [place] [address] 57825- 0963 Mar, [facility] [id number] [place] [address] 07321- 9153 Mar, [facility] [id number] [place] [address] 00195- 8889 Mar, [facility] [id number] [place] [address] 79997- 0761 Feb, [facility] [id number] [place] [address] 28483- 7184 Feb, [facility] [id number] [address]- 4724 Feb, [facility] [address] [address]- 2132 Feb, Major depressive disorder, recurrent episode, moderate F33.1 ; Generalized anxiety disorder F41.1 ; Essential hypertension I10 ; DM ( diabetes mellitus) with complications E11.8 ; Hyperlipidemia, unspecified hyperlipidemia type E78.5 ; 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 [id number] [address] Feb, Other viral agents as the cause of diseases classified elsewhere B97.89 and Acute upper respiratory infection, unspecified J06.9 [place] [id number] [place] [address] 62248- 7344 Jan, [facility] [id number] [place] [address] 54863- 0334 Jan, [facility] [id number] [place] [address] 10479 -2656 Jan, Acute bronchitis, unspecified organism J20.9 [facility] [id number] [place] [address] 86932- 3396 Jan, [facility] [id number] [place] [address] 65053- 5584 Jan, History of CVA with residual deficit I69.30 [facility] [id number] [place] [address] 92492- 6514 Jan, [facility] [id number] [place] [address] [phone] Jan, Acute bronchitis, unspecified organism J20.9 [facility] [id number] [place] [address] [phone] Jan, [facility] [id number] [place] [address] [phone] [id number] Dec, History of CVA with residual deficit I69.30 [facility] [id number] [place] [address] [phone] Dec, [facility] [id number] [place] [address] [id number] Dec, Other chronic pain G89.29 ; DM (diabetes mellitus) with complications E11.8 and History of CVA with residual deficit I69.30 [facility] [id number] [place] [address] [phone] Nov, Major depressive disorder, recurrent episode, moderate F33.1 ; Irregular heart rhythm I49.9 ; Essential hypertension I10 ; History of CVA with residual deficit I69.30 ; DM (diabetes mellitus) with complications E11.8 ; Gastroesophageal reflux disease, esophagitis presence not specified K21.9 ; Hyperlipidemia, unspecified hyperlipidemia type E78.5 ; 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 ; Other chronic pain G89.29 and Generalized anxiety disorder F41.[id number] [place] [phone] Oct, Generalized anxiety disorder F41.1 ; Major depressive disorder, recurrent episode, moderate F33.1 ; Essential hypertension I10 ; History of CVA with residual deficit I69.30 ; DM (diabetes mellitus) with complications E11.8 ; Gastroesophageal reflux disease, esophagitis presence not specified K21.9 ; Hyperlipidemia, unspecified hyperlipidemia type E78.5 ; Other chronic pain G89.29 and Bacterial conjunctivitis of left eye H10.9 [place] [id number] [place] [phone] Sep, Chronic pain syndrome G89.4 and DM (diabetes mellitus) with complications E11.8 [place] [id number] [place] [phone] Sep, Irregular heart rhythm I49.9 ; Routine health maintenance Z00.00 ; Essential hypertension I10 ; History of CVA with residual deficit I69.30 ; Gastroesophageal reflux disease, esophagitis presence not specified K21.9 ; DM (diabetes mellitus) with complications E11.8 ; Hyperlipidemia, unspecified hyperlipidemia type E78.5 and Other complicated headache syndrome G44.59 [place] [id number] [place] [phone] Jun, [place] [id number] [place] [phone] Jun, [address] [phone] Aug, [address] [phone] Jun, IMMUNIZATIONS No Known Immunizations SOCIAL HISTORY Never Assessed REASON FOR VISIT thrush-the patient's mouth has been itching but it is now hurting to the point that she cannot eat or drink._ _[place], MA PLAN OF CARE Activity Details Follow Up if not improving with PCP or reg follow up Reason: VITAL SIGNS Height 62 in 2018-02-06 Weight 187 lbs 2018-02-06 Temperature 98.3 degrees Fahrenheit 2018-02-06 Heart Rate 88 bpm 2018-02-06 Respiratory Rate 20 2018-02-06 BMI 34.20 kg/m2 2018-02-06 Blood pressure systolic 124 mmHg 2018-02-06 Blood pressure diastolic 70 mmHg 2018-02-06 MEDICATIONS Medication Instructions Dosage Frequency Start Date End Date Duration Status Zofran ODT 4 MG Orally every 4 hrs 1 tablet on the tongue and allow to dissolve as needed 4h Nov, Active Hydrochlorothiazide 25 MG Orally Once a day 1 tablet 24h 90 days Active Nystatin 360863 UNIT/ML Mouth/Throat Four times a day 5 ml 6h Jan, 15 days Active Levemir Flexpen 100 UNIT/ML Subcutaneous 2 times a day 25 units in AM and 35 units at HS 12h Active Potassium Chloride ER 10 meq Orally Once a day 2 tablets with food 24h Active Bath/Shower Seat 1 please provide one adult shower seat for patient use one time shower/bath seat for bathing Dec, Active One Touch/One Touch II Starter 1 glucometer subcutaneously 3 times a day to take blood sugars daily Dispense as insurance allows 8h Sep, Active Naproxen 500 mg Orally bid prn 1 tablet Active Pen [place] 31 gauge subcutaneously twice a day DX: E11.8 as directed Active BD Pen Needle Mini U/F 31 gauge USE ONCE DAILY WITH INSULIN PENS 90 Active Aspir-Low 81 mg TAKE ONE TABLET BY MOUTH DAILY 30 Active OneTouch Verio - TEST BLOOD SUGAR FOUR TIMES A DAY E11.8 30 Active Diltiazem HCl ER 120 MG Orally Once a day 1 capsule on an empty stomach in the morning 24h 90 days Active OneTouch Delica Lancets 33G 33 TEST BLOOD SUGAR THREE TIMES A DAY E11.8 Active MetFORMIN HCl ER 750 MG Orally twice a day 1 tablet with meals 12h 90 days Active Walker - as directed Jan, Active MethylPREDNISolone 4 MG Orally as directed as directed Dec, Active Pantoprazole Sodium 20 mg Orally 2 times a day 1 tablets 12h 24 May, 2016 90 days Active Metoprolol Tartrate 25 MG Orally Twice a day 1 tablet with food 12h 90 days Active Lancets - Active Plavix 75 MG Orally Once a day 1 tablet 24h 90 days Active Atorvastatin Calcium 80 MG Orally Once a day 1 tablet 24h 90 days Active Humalog 100 UNIT/ML Subcutaneous 3 times a day 10 units with meals 8h July, 12 months Active Test strips 8h Active Aspir-Low 81 TAKE ONE TABLET BY MOUTH DAILY 30 Active Famotidine 20 mg Orally Twice a day 1 tablet 12h 21 Apr, 2017 90 days Active ProAir HFA 108 (90 Base) MCG/ACT Inhalation every 6 hrs 2 puffs as needed 6h Dec, Active RESULTS No Results PROCEDURES Procedure Date Ordered Result Body Site COUNTS INCLUDE 234 BEDS AT THE [facility] VISIT ESTABLISHED PATIENT Feb 06, 2018 INSTRUCTIONS MEDICATIONS ADMINISTERED No Known Medications MEDICAL (GENERAL) HISTORY Type Description Date Medical History diabetes mellitus Medical History hyperlipidemia Medical History hypertension Medical History Anxiety disorder Medical History Blood Clotting Disorder- Dr Galvan at [facility] Medical History Possible Anemia (currently under work up) - Dr Galvan [facility] Medical History irregular heart beat-sees [...] Has been hospitalized at then transfered to [place]. 2014 Hospitalization History Child Hospitalization History abd pain and shakiness - [facility] ED visit [facility] [place] Hospitalization History [facility] ED for URI 04/16/17 Hospitalization History via [facility] emergency department er 08/16/17
--- OUTSIDE RECORDS SUMMARY | 2018-03-13 12:02 | XMS REPORT ---
Author Author CHESTER JOYCE [facility] Address [address] [place] [address] Care Team Providers Care Property Man Name Role Phone KING CHESTER Unavailable PROBLEMS Type Condition ICD9-CM Code VVL22-CJ Code Onset Dates Condition Status SNOMED Code Problem Tobacco abuse counseling Z71.6 Active 832422087 Problem History of CVA with residual deficit I69.30 Active 033135424 Problem Seasonal allergic rhinitis due to pollen J30.1 Active 78300506 Problem Panic disorder F41.0 Active 873164428 Problem Vitamin D deficiency E55.9 Active 89319117 Problem Abnormal drug screen R89.2 Active 177816337 Problem Type 2 diabetes mellitus with hyperglycemia E11.65 Active 67680619 Problem 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.4 Active 957972349 Problem Acute non intractable tension-type headache G44.209 Active 294266790 Problem Chronic pain syndrome G89.4 Active 743208224 Problem Generalized anxiety disorder F41.1 Active 69748138 Problem 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 Active 352720519 Problem Major depressive disorder, recurrent episode, moderate F33.1 Active 140017944 Problem Elevated liver enzymes R74.8 Active 754794362 Problem Gastroesophageal reflux disease, esophagitis presence not specified K21.9 Active 626608033 Problem Essential hypertension I10 Active 00981521 Problem DM (diabetes mellitus) with complications E11.8 Active 53809247 Problem Other chronic pain G89.29 Active 51957838 Problem Hyperlipidemia, unspecified hyperlipidemia type E78.5 Active 68442147 Problem Tobacco abuse Z72.0 Active 058637513 ALLERGIES No Information ENCOUNTERS Encounter Location Date Diagnosis [facility] [address] [facility] [id number] [address] Jan, [facility] [address] [facility] [id number] [address] 13 Nov, 2018 Bronchitis J40 [facility] [id number] [place] [address] 85110- 6857 Jan, [place] [address] [place] [id number] [place] [address] 64400- 8820 05 Jan, 2018 [place] [address] [place] [id number] [place] [address] 45141- 8157 17 Dec, 2017 Hyperlipidemia, unspecified hyperlipidemia type E78.5 [place] [address] [place] [id number] [place] [address] 01525- 4061 16 Dec, 2017 C. difficile diarrhea A04.72 and Bronchitis J40 [place] [address] [place] [id number] [place] [address] 36217- 2084 Dec, [place] [address] [place] [id number] [place] [address] 83022- 8009 28 Nov, 2017 C. difficile diarrhea A04.72 [place] [address] [place] [id number] [place] [address] 89460- 7175 26 Nov, 2017 Panic disorder F41.0 [place] [address] [place] [id number] [place] [address] 16479- 2813 25 Nov, 2017 Diarrhea, unspecified type R19.7 [place] [address] [place] [address] 67410- 1239 19 Nov, 2017 [place] [address] [place] [id number] [place] [address] 38463- 1092 13 Nov, 2017 Dysuria R30.0 ; Acute cystitis with hematuria N30.01 ; Flank pain R10.9 and Violation of controlled substance agreement Z91.14 [place] [address] [place] [address] 29036- 4637 Oct, [facility] [address] [place] [id number] [place] [address] 32349 -9653 Oct, [facility] [address] [place] [address] [id number] [place] [address] 01010 -7228 Oct, Dysuria R30.0 and Acute cystitis with hematuria N30.01 [facility] [address] [address] 4848 Oct, [facility] [address] [place] [id number] [place] [address] 21531- 5638 Oct, [facility] [address] [place] [address] 52432- 1553 Oct, Controlled substance agreement broken Z91.14 ; Violation of controlled substance agreement Z91.14 ; Other chronic pain G89.29 and Generalized anxiety disorder F41.1 [facility] [address] [place] [id number] [place] [address] 53272- 9178 Oct, [facility] [address] [place] [id number] [place] [address] 94164- 1171 Oct, [facility] [address] [address] [id number] [place] [address] 89865- 7662 Sep, Abscess L02.91 [facility] [address] [address] [id number] [place] [address] 34899- 2830 Sep, [facility] [address] [address] [id number] [place] [address] 38743- 1950 Sep, DM (diabetes mellitus) with complications E11.8 ; Generalized anxiety disorder F41.1 and Chronic pain syndrome G89.4 [facility] [address] [place] [id number] [place] [address] 09117- 0473 Sep, Generalized anxiety disorder F41.1 ; Chronic pain syndrome G89.4 ; Abnormal drug screen R89.2 and Other chest pain R07.89 [facility] [address] [place] [address] 87002- 3158 Aug, Dysuria R30.0 [facility] [address] [place] [id number] [place] [address] 64759- 4908 Aug, Generalized anxiety disorder F41.1 ; Chronic pain syndrome G89.4 and Dysuria R30.0 [facility] [address] [address] [id number] [place] [address] 20005- 3826 Aug, Acute cystitis with hematuria N30.01 and Candidal dermatitis B37.2 [facility] [address] [place] [id number] [place] [address] 36721- 3676 Aug, Dysuria R30.0 [facility] [address] [place] [address] [id number] [place] [address] 34156- 1645 Aug, [facility] [address] [address] [id number] [place] [address] 50412 -4353 Aug, Dysuria R30.0 [place] [address] [place] [id number] [place] [address] 25380- 2463 Aug, [place] [address] [place] [id number] [place] [address] 89981- 9828 July, Cervicalgia M54.2 ; Acute non intractable tension-type headache G44.209 ; Type 2 diabetes mellitus with hyperglycemia E11.65 and 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.4 [place] [address] [place] [id number] [place] [address] 19519- 3613 July, Generalized anxiety disorder F41.1 and Chronic pain syndrome G89.4 [place] [address] [place] [id number] [place] [address] 37348- 9197 July, Abscess L02.91 [place] [address] [place] [id number] [place] [address] 88959- 9431 July, [place] [address] [place] [id number] [place] [address] 82614- 2397 July, [place] [address] [place] [id number] [place] [address] 71770- 1803 July, Type 2 diabetes mellitus with hyperglycemia [...] pain syndrome G89.4 and Vaginal candidiasis B37.3 [place] [address] [place] [id number] [place] [address] 37631- 3136 Jun, Generalized anxiety disorder F41.1 and Other chronic pain G89.29 [place] [address] 53168- 4088 Jun, [place] [address] 92382- 8458 Jun, [place] [address] 76333- 5216 Jun, Abnormal levels of other serum enzymes R74.8 [place] [address] 88394- 1810 Jun, Abnormal levels of other serum enzymes R74.8 [place] [address] 53189- 9159 Jun, Elevated liver enzymes R74.8 [place] [address] 52908- 6665 Jun, Elevated liver enzymes R74.8 [place] [address] [place] [id number] [place] [address] 08502- 2899 May, Right upper quadrant pain R10.11 ; Cervicalgia M54.2 and High risk medication use Z79.899 [place] [address] [place] [id number] [place] [address] 05974- 0173 May, Generalized anxiety disorder F41.1 and Other chronic pain G89.29 [place] [address] [place] [id number] [place] [address] 98691- 2804 May, Canker sores oral K12.0 [place] [address] 57280- 7600 May, Generalized anxiety disorder F41.1 and Other chronic pain G89.29 [facility] [address] [place] [id number] [place] [address] 46459- 1467 May, [facility] [address] [place] [id number] [place] [address] 03167- 7599 Apr, [facility] [address] 56544 -6506 Apr, Acute cystitis with hematuria N30.01 and Dysuria R30.0 [place] [address] 40846- 8436 Apr, [facility] [address] [place] [id number] [place] [address] 18938- 1578 Apr, [facility] [address] 48796- 7958 Apr, DM (diabetes mellitus) with complications E11.8 [facility] [address] [place] [id number] [place] [address] 64433- 8299 Apr, DM (diabetes mellitus) with complications E11.8 [facility] [address] [place] [id number] [place] [address] 47396- 8103 Apr, [facility] [address] [id number] [place] [address] 51142- 2145 Apr, [facility] [address] [place] [id number] [place] [address] 93134- 1759 Apr, Other chronic pain G89.29 ; Generalized anxiety disorder F41.1 ; Cervicalgia M54.2 and Controlled substance agreement signed Z79.899 [facility] [address] [address] [id number] [place] [address] 72640 -9142 Mar, Abdominal pain R10.9 and Viral gastroenteritis A08.4 [facility] [address] [place] [id number] [place] [address] 80298- 7844 Mar, [place] [address] [place] [id number] [place] [address] 34476- 2166 Mar, [place] [address] 20788- 0631 Mar, DM (diabetes mellitus) with complications E11.8 [...] K21.9 and 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 [place] [id number] [place] [address] 84264- 5119 Mar, [address] 91580- 5496 Mar, DM (diabetes mellitus) with complications E11.8 ; Abnormal lung sounds R09.89 ; Bronchitis J40 and Hyperlipidemia, unspecified hyperlipidemia type E78.5 [facility] [address] [id number] [place] [address] 08949 -8843 Mar, URI, acute J06.9 [place] [address] [place] [id number] [place] [address] 26376- 0411 Mar, [address] 46890- 5257 Mar, DM (diabetes mellitus) with complications E11.[address] 62643- 0614 Mar, Other chronic pain G89.29 and Generalized anxiety disorder F41.1 [place] [id number] [place] [address] 08482- 0382 Feb, [address] 47050- 0223 Feb, Mass of left lung R91.8 and Cervicalgia M54.2 [facility] [address] 95954- 0132 Feb, [facility] [address] 25316- 8777 Feb, [facility] [address] 95660 -5759 Feb, Cough R05 and Bronchitis J40 [facility] [address] 16004 -8448 07 Feb, 2017 Acute nasopharyngitis J00 and Bronchitis J40 [place] [address] 23591- 2670 06 Feb, 2017 Other chronic pain G89.29 and Generalized anxiety disorder F41.1 [place] [address] 99105- 9268 Jan, Encounter for immunization Z23 [facility] [place] [address] 68425 -0866 Jan, [facility] [place] [address] 84088 -1181 18 Jan, 2017 [place] [address] 85495- 9778 16 Jan, 2017 Canker sores oral K12.0 [place] [address] 02825- 9411 14 Jan, 2017 [facility] [address] 30824- 9157 07 Jan, 2017 Other chronic pain G89.29 and Generalized anxiety disorder F41.1 [facility] [address] 86627- 4966 06 Jan, 2017 Cough R05 and Bronchitis J40 [facility] [address] 12426 -2516 Jan, Bronchitis J40 [place] [id number] [place] [address] 11752- 3870 Dec, Vitamin D deficiency E55.9 [place] [address] 50307- 7166 Dec, DM (diabetes mellitus) with complications E11.[address] 34320- 5166 Dec, DM (diabetes mellitus) with complications E11.8 and Vitamin D deficiency E55.[address] 10874- 0805 Dec, DM (diabetes mellitus) with complications E11.8 ; Essential hypertension I10 ; Hyperlipidemia, unspecified hyperlipidemia type E78.5 ; Vitamin D deficiency E55.9 ; Gastroesophageal reflux disease, esophagitis presence not specified K21.9 ; 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 ; Other chronic pain G89.29 ; Encounter for immunization Z23 and Generalized anxiety disorder F41.[address] 56935- 7488 12 Nov, 2016 History of CVA with residual deficit I69.[address] 32111- 5189 11 Nov, 2016 DM (diabetes mellitus) with complications E11.[address] 31717- 0122 06 Nov, 2016 Left otitis media with effusion H65.92 ; Bronchitis J40 and Canker sores oral K12.[address] 64081- 5420 Oct, [address] 49355- 6400 Oct, DM (diabetes mellitus) with complications E11.[address] 37302- 5480 Oct, [facility] [address] [place] [id number] [place] [address] 86156- 1219 17 Sep, 2016 DM (diabetes mellitus) with complications E11.8 [place] [address] 31317- 9212 11 Sep, 2016 DM (diabetes mellitus) with complications E11.8 ; Essential hypertension I10 ; Gastroesophageal reflux disease, esophagitis presence not specified K21.9 ; Hyperlipidemia, unspecified hyperlipidemia type E78.5 ; Tobacco abuse Z72.0 ; Vitamin D deficiency E55.9 ; History of CVA with residual deficit I69.30 and Seasonal allergic rhinitis due to pollen J30.1 [place] [address] 08508- 1304 Sep, [place] [address] 35309- 1637 Aug, [facility] [address] 43688 -0755 Aug, Dysuria R30.0 ; Acute cystitis with hematuria N30.01 and Middle ear effusion, right H65.91 [place] [address] 10334- 4640 Aug, Other complicated headache syndrome G44.59 [place] [address] [place] [id number] [place] [address] 05249- 7461 19 Aug, 2016 DM (diabetes mellitus) with complications E11.8 [place] [address] [place] [id number] [place] [address] 50984- 2398 14 Aug, 2016 Dysuria R30.0 [place] [address] [place] [id number] [place] [address] 34718- 4780 Aug, Dysuria R30.0 [place] [address] 13779- 5384 Aug, [place] [address] [place] [id number] [place] [address] 86530- 5415 July, [place] [address] [place] [address] 22863- 1908 July, [facility] [address] [place] [id number] [place] [address] 63001- 7377 July, DM (diabetes mellitus) with complications E11.8 [facility] [address] [id number] [place] [address] 77296- 2769 July, Other complicated headache syndrome G44.59 [facility] [address] [place] [id number] [place] [address] 34764- 7924 July, [facility] [address] [place] [id number] [place] [address] 67105 -3736 July, Dysuria R30.0 and Acute cystitis with hematuria N30.01 [facility] [address] [place] [id number] [place] [address] 33688- 4833 July, [facility] [address] [place] [id number] [place] [address] 49246- 6109 July, Other complicated headache syndrome G44.59 [facility] [address] [place] [id number] [place] [address] 52784 -4679 Jun, Exposure to strep throat Z20.818 and Acute upper respiratory infection, unspecified J06.9 [facility] [address] [place] [id number] [place] [address] 27504- 6060 Jun, [facility] [address] [address] [id number] [place] [address] 67662- 3513 Jun, DM (diabetes mellitus) with complications E11.8 and Gastroesophageal reflux disease, esophagitis presence not specified K21.9 [facility] [address] [place] [id number] [place] [address] 94034- 1226 Jun, [facility] [address] [place] [id number] [place] [address] 88575- 5216 Jun, Dizziness R42 [facility] [address] [place] [id number] [place] [address] 83590 -3996 Jun, [facility] [address] [address]- 9313 Jun, [facility] [address] [place] [id number] [place] [address] 35361 -4967 May, Seasonal allergic rhinitis, unspecified allergic rhinitis trigger J30.2 [facility] [address] [place] [id number] [place] [address] 54291- 0763 May, [facility] [address] [id number] [place] [address] 40817- 4190 May, DM (diabetes mellitus) with complications E11.8 [...] J30.1 [facility] [address] [place] [id number] [place] [address] 55236- 2286 May, Gastroesophageal reflux disease, esophagitis presence not specified K21.9 [facility] [address] [place] [id number] [place] [address] 15704- 8722 May, [facility] [address] [place] [address] 98965- 8439 Apr, [facility] [address] [place] [id number] [place] [address] 57763- 7302 Apr, [facility] [address] [place] [id number] [place] [address] 09653- 2330 Mar, [facility] [address] [place] [id number] [place] [address] 76330- 3241 Mar, [facility] [address] [place] [id number] [place] [address] 47983- 0612 Mar, [facility] [address] [place] [address]- 5030 Mar, [facility] [address] [place] [id number] [place] [address] 86076- 7600 Feb, [facility] [address] [place] [id number] [place] [address] 62600- 9733 Feb, [facility] [address] [place] [id number] [place] [address] 88277- 6900 Feb, [facility] [address] [place] [id number] [place] [address] 56019- 9732 Feb, Major depressive disorder, recurrent episode, moderate F33.1 ; Generalized anxiety disorder F41.1 ; Essential hypertension I10 ; DM ( diabetes mellitus) with complications E11.8 ; Hyperlipidemia, unspecified hyperlipidemia type E78.5 ; 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 and Gastroesophageal reflux disease, esophagitis presence not specified K21.9 [facility] [address] [place] [id number] [place] [address] 68445 -6566 Feb, Other viral agents as the cause of diseases classified elsewhere B97.89 and Acute upper respiratory infection, unspecified J06.9 [place] [address] [place] [id number] [place] [address] 09843- 4099 Jan, [place] [address] [place] [address] 98047- 2163 Jan, [facility] [address] [place] [address] 36484 -7908 Jan, Acute bronchitis, unspecified organism J20.9 [facility] [address] [place] [id number] [place] [address] 25828- 7771 Jan, [place] [address] [place] [id number] [place] [address] 86430- 7541 Jan, History of CVA with residual deficit I69.30 [facility] [address] [place] [id number] [place] [address] 27232- 7266 Jan, [facility] [address] [place] [address] [address]- 0798 Jan, Acute bronchitis, unspecified organism J20.9 [place] [address] [place] [id number] [place] [address] 28302- 9172 Jan, [place] [address] [place] [address] 15023- 5897 Dec, History of CVA with residual deficit I69.30 [place] [address] [place] [id number] [place] [address] 14440- 8707 Dec, [place] [address] [place] [id number] [place] [address] 31357- 0189 Dec, Other chronic pain G89.29 ; DM (diabetes mellitus) with complications E11.8 and History of CVA with residual deficit I69.30 [address] [place] [address] 05714- 4761 Nov, Major depressive disorder, recurrent episode, moderate F33.1 ; Irregular heart rhythm I49.9 ; Essential hypertension I10 ; History of CVA with residual deficit I69.30 ; DM (diabetes mellitus) with complications E11.8 ; Gastroesophageal reflux disease, esophagitis presence not specified K21.9 ; Hyperlipidemia, unspecified hyperlipidemia type E78.5 ; 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 ; Other chronic pain G89.29 and Generalized anxiety disorder F41.1 [address] [place] [address] 10585- 9997 Oct, Generalized anxiety disorder F41.1 ; Major depressive disorder, recurrent episode, moderate F33.1 ; Essential hypertension I10 ; History of CVA with residual deficit I69.30 ; DM (diabetes mellitus) with complications E11.8 ; Gastroesophageal reflux disease, esophagitis presence not specified K21.9 ; Hyperlipidemia, unspecified hyperlipidemia type E78.5 ; Other chronic pain G89.29 and Bacterial conjunctivitis of left eye H10.9 [place] [address] [place] [address] 44519- 4910 Sep, Chronic pain syndrome G89.4 and DM (diabetes mellitus) with complications E11.8 [facility] [address] [address]- 4883 05 Sep, 2015 Irregular heart rhythm I49.9 ; Routine health maintenance Z00.00 ; Essential hypertension I10 ; History of CVA with residual deficit I69.30 ; Gastroesophageal reflux disease, esophagitis presence not specified K21.9 ; DM (diabetes mellitus) with complications E11.8 ; Hyperlipidemia, unspecified hyperlipidemia type E78.5 and Other complicated headache syndrome G44.59 [place] [address] [place] [id number] [place] [address] 96617- 2257 14 Jun, 2014 [place] [address] [place] [id number] [place] [address] 02981- 3107 Jun, [place] [address] [place] [id number] [place] [address] 55843- 0629 Aug, [place] [address] [place] [id number] [place] [address] 27590- 8250 Jun, IMMUNIZATIONS No Known Immunizations SOCIAL HISTORY [...] History Blood Clotting Disorder- Dr Galvan at [facility] Medical History Possible Anemia (currently under work up) - Dr Galvan [facility] Medical History irregular heart beat-sees dr. hassan Medical History history of pancreatitis Medical History gerd Medical History History of CVA with residual deficit Medical History Other complicated headache syndrome Medical History Stokes syndrome Surgical History tubal ligation Surgical History section Surgical History cholecystectomy Surgical History Toe Nail Removal x2 Hospitalization History Brain Stem Strokes x5. Has been hospitalized at then transfered to [facility]. 2014 Hospitalization History Child Hospitalization History abd pain and shakiness - [facility] ED visit [facility] Hospitalization History [facility] ED for URI 04/16/17 Hospitalization History via [facility] er 08/16/17
[2018-03-13 12:14] VITALS: BP 130/78
[2018-03-13] MEDS ORDERED: CEPH-507 PO (12:29)
[2018-03-13] MEDS ORDERED: D-ME118S7 PO (12:29)
[2018-03-13] MEDS ORDERED: METR-197 PO (12:29)
--- NOTE | 2018-03-13 12:29 | ED Cough/URI ---
General Chief Complaint: Cough/Cold/Flu Symptoms Stated Complaint: BRONCHITIS/SOB/COUGH IS WORSE Source: patient Exam Limitations: no limitations History of Present Illness Date Seen by Provider: Mar 13, 2018 Time Seen by Provider: 12:24 Initial Comments And worsening cough. She was diagnosed by [facility] one week ago with bronchitis. She was given an inhaler and Mucinex. She reports worsening of her cough which is productive of greenish yellow sputum, greenish yellow nasal discharge. Denies fevers. Denies sore throat. Timing/Duration: week, getting worse Severity/Quality: productive cough Associated Symptoms: cough Allergies and Home Medications Allergies Coded Allergies: erythromycin base (Unverified Allergy, Mild, 11/11/08) Penicillins (Verified Allergy, Unknown, 11/14/08) codeine (Verified Allergy, Unknown, 11/14/08) nitrofurantoin (Verified Allergy, Unknown, 11/04/17) Home Medications Acetaminophen 325 Mg Tab, 650 MG PO Q4H PRN for mild pain or fever Prescribed by: ERNESTO SY on 09/28/13931 Alprazolam 0.25 Mg Tablet, 0.25 MG PO TID PRN for ANXIETY 1/2 or 1 every 8 hours as needed. Prescribed by: MAGDA MARTINEZ on 12/07/17 184 Aspirin 81 Mg Tablet.dr, 81 MG PO DAILY, (Reported) Atorvastatin Calcium 80 Mg Tablet, 80 MG PO HS Prescribed by: CELIA ISAACS on 09/24/131849 Benzonatate 100 Mg Capsule, 200 MG PO Q8H PRN for COUGH Prescribed by: PRISCILLA QUINN on 02/02/182101 Bisacodyl 10 Mg Supp, 10 MG DC DAILY PRN for CONSTIPATION Prescribed by: ERNESTO SY on 09/28/13931 Cefuroxime Axetil 250 Mg Tablet, 250 MG PO BID Prescribed by: THELMA FARAH on 11/24/17 180 Clopidogrel Bisulfate 75 Mg Tablet, 1 EACH PO DAILY Prescribed by: CELIA ISAACS on 09/24/131849 Diltiazem Hcl 30 Mg Tab, 30 MG PO Q8HR Prescribed by: ERNESTO SY on 09/28/13931 Doxycycline Hyclate 100 Mg Capsule, 100 MG PO BID Prescribed by: PRISCILLA QUINN on 02/02/182101 Hydrochlorothiazide 12.5 Mg Cap, 25 MG PO DAILY, (Reported) Hydrocodone Bit/Acetaminophen 1 Each Tablet, 1 EACH PO NEEDED, (Reported) Melatonin/Pyridoxine Hcl (B6) 1 Each Tab.mphase, 1 EACH PO HS, (Reported) Metoprolol Tartrate 25 Mg Tablet, 25 MG PO BID Prescribed by: ERNESTO SY on 09/28/13 0932 Metronidazole 500 Mg Tablet, 500 MG PO TID Prescribed by: PRISCILLA QUINN on 02/02/182101 Nystatin 60 Ml Btl, 5 ML PO Q6H swish and swallow QID x5 days Prescribed by: THELMA FARAH on 05/11/142017 Omeprazole 40 Mg Capsule.dr, 40 MG PO DAILY, (Reported) Ondansetron 4 Mg Tab.rapdis, 4 MG SL Q4H PRN for NAUSEA/VOMITING Prescribed by: AKBAR BARROW on 09/10/15 0349 Ondansetron Hcl 4 Mg Tab, 4 MG SL Q4H FOR NAUSEA AND VOMITING Prescribed by: BLAIR DANIELS on 05/19/14 1128 Polyethylene Glycol 17 Gm Pack, 17 GM PO DAILY PRN for CONSTIPATION Prescribed by: CELIA ISAACS on 09/24/13 1850 Senna 1 Ea Tablet, 1 EA PO BID Prescribed by: ERNESTO SY on 09/28/13 0932 Patient Home Medication List Home Medication List Reviewed: Yes Review of Systems Review of Systems Constitutional: see HPI EENTM: see HPI Respiratory: see HPI, cough Cardiovascular: no symptoms reported Genitourinary: no symptoms reported Musculoskeletal: no symptoms reported Skin: no symptoms reported Psychiatric/Neurological: No Symptoms Reported Hematologic/Lymphatic: No Symptoms Reported Past Bzptoll-Ckdjqn-Uzymvh Hx Patient Social History Type Used: Cigarettes 2nd Hand Smoke Exposure: Yes Recent Foreign Travel: No Contact w/Someone Who Travel: No Recent Hopitalizations: No Immunizations Up To Date Tetanus Booster (TDap): Unknown PED Vaccines UTD: No Date of Influenza Vaccine: Jan 07, 2017 Seasonal Allergies Seasonal Allergies: No Past Medical History Surgeries: Yes (egd, colonoscopy) Section, Gallbladder, Tubal Ligation Respiratory: No (l lung nodule) Cardiac: Yes High Cholesterol, Hypertension, Irregular Heartbeat Neurological: Yes (r sided numbness r/t previous stroke) Headaches /Migraines, Stroke, Vertigo Reproductive Disorders: Yes Female Reproductive Disorders: Endometriosis [employer] History: Tubal Ligation, Menopausal Sexually Transmitted Disease: No Genitourinary: Yes UTI-Chronic Gastrointestinal: Yes Gastroesophageal Reflux, Hiatal Hernia, Gall Bladder Disease Musculoskeletal: Yes Arthritis Endocrine: No Diabetes, Insulin dep HEENT: No Cancer: No Psychosocial: Yes Anxiety Integumentary: No Blood Disorders: Yes ("CLOTTING DISORDER", chronic leukocytosis) Adverse Reaction/Blood Tranf: No Family Medical History Cancer 19 MOTHER (THROAT CANCER) Family history: Hypertension 19 MOTHER History of - disorder G8 SISTER (SISTER HAD MS) Myocardial infarction 19 FATHER 19 MOTHER Stroke 19 MOTHER Heart Disease, Hypertension, Stroke Physical Exam Capillary Refill : Height: 5'2.00" Weight: 184lbs. 0.0oz. [id number]; 43.9 BMI Method:Stated General Appearance: WD/WN, no apparent distress Eyes: Bilateral Eye Normal Inspection, Bilateral Eye PERRL, Bilateral Eye EOMI HEENT: PERRL/EOMI, normal ENT inspection, TMs normal, pharyngeal erythema Neck: non-tender, full range of motion Respiratory: normal breath sounds, no respiratory distress, no accessory muscle use Gastrointestinal: normal bowel sounds, non tender, soft Extremities: normal range of motion, non-tender Neurologic/Psychiatric: alert, normal mood/affect, oriented x 3 Skin: normal color, warm/dry Progress/Results/Core Measures Suspected Sepsis SIRS Temperature: Pulse: Respiratory Rate: Blood Pressure / Mean: Results/Orders My Orders Orders - THELMA FARAH APRN Chest Pa/Lat (2 View) (03/13/18 12:21) Vital Signs/I&O Capillary Refill : Departure Communication (Admissions) Given her one week of worsening rather than improving symptoms we will start an antibiotic. She does report a history of Clostridium difficile so we will use metronidazole in addition to the medication for bronchitis. Impression Primary Impression: Bronchitis Disposition: 01 HOME, SELF-CARE Condition: Stable Departure-Patient Inst. Decision time for Depature: 12:27 Referrals: [facility] (PCP/Family) Primary Care Physician Patient Instructions: Acute Bronchitis, Adult (DC) Add. Discharge Instructions: 1. Use an [id number]-[id number] probiotic or lots of yogurt to help supplement your good gut Bacteria 2. Antibiotics as directed 3. Follow-up with your doctor next week All discharge instructions reviewed with patient and/or family. Voiced understanding. Scripts D-Methorphan Hb/Prometh HCl (Promethazine-Dm Syrup) 118 Ml Syrup 5 ML PO Q6H PRN for COUGH, #120 ML Prov: THELMA FARAH APRN 03/13/18 Metronidazole (Metronidazole) 500 Mg Tablet 500 MG PO TID, #21 TAB Prov: THELMA FARAH APRN 03/13/18 Cephalexin (Keflex) 500 Mg Capsule 500 MG PO TID, #15 CAP Prov: THELMA FARAH APRN 03/13/18 THELMA FARAH APRN Mar 13, 2018 12:29
[2018-03-13] MEDS ORDERED: DEXAMETHASONE 10 MG/ML (DECADRON) 1 ML VIAL IM ONE (12:30)
--- OUTSIDE RECORDS SUMMARY | 2018-03-13 12:45 | XMS REPORT | Continuity of Care Document ---
Author Author [facility] Organization [facility] Address Unknown Phone Unavailable Allergies Active Description Code Type Severity Reaction Onset Reported/Identified Relationship to Patient Clinical Status Yes Erythromycin Base [id number] Drug Allergy Mild N/A 11/11/2008 Yes codeine [id number] Drug Allergy Unknown N/A 11/14/2008 Yes Penicillins [id number] Drug Allergy Unknown N/A 11/14/2008 Yes nitrofurantoin [id number] Drug Allergy Unknown N/A 11/04/2017 Medications There [...] 09/01/2012 PASTOR CISNEROS MD Ot 794.09 ABN FOREST PATROLMAN FUNCT STUDY NEC 09/01/2012 PASTOR CISNEROS MD [...] PASTOR J Ot 783.1 05/11/2014 AMELIA WRIGHT, ELEANOR SLATER [...] AMELIA WRIGHT, PASTOR J Ot 305.1 05/11/2014 AEMLIA WRIGHT, PASTOR J Ot 401.9 05/11/2014 AMELIA [...] PASTOR J Ot 783.1 05/15/2014 AMELIA WRIGHT, ELEANOR SLATER [...] WRIGHT, ALBERTASEELAN Ot 786.50 05/15/2014 AMELIA WRIGHT, [facility] Ot 251.2 05/15/2014 AMELIA WRIGHT, [facility] Ot 790.29 05/15/2014 AMELIA WRIGHT, [facility] Ot 780.39 05/15/2014 AMELIA WRIGHT, [facility] Ot 348.89 05/15/2014 AMELIA WRIGHT, [facility] Ot 780.97 05/15/2014 AMELIA WRIGHT, [facility] Ot 781.99 05/15/2014 AMELIA WRIGHT, [facility] Ot 530.81 05/15/2014 AMELIA WRIGHT, [facility] Ot 553.3 05/15/2014 AMELIA WRIGHT, [facility] Ot 787.20 05/15/2014 JASON WRIGHT, [facility] Ot 288.60 05/15/2014 AMELIA WRIGHT, [facility] Ot 530.81 05/15/2014 AMELIA WRIGHT, [facility] Ot 553.3 05/15/2014 AMELIA WRIGHT, [facility] Ot 787.20 05/15/2014 AMELIA WRIGHT, [facility] Ot 348.89 05/15/2014 AMELIA WRIGHT, [facility] Ot 780.97 05/15/2014 AMELIA WRIGHT, [facility] Ot 781.99 05/15/2014 Ot 272.4 05/15/2014 [...] PASTOR J Ot 782.3 05/15/2014 AMELIA WRIGHT, PATSOR J Ot 785.0 05/15/2014 AMELIA WRIGHT, PASTOR [...] PASTOR J Ot 787.20 05/15/2014 JASON WRIGHT, [facility] Ot 288.60 05/17/2014 AMELIA WRIGHT, PASTOR J [...] WRIGHT, PASTOR J Ot 401.9 08/26/2014 AMELIA RWIGHT, PASTOR J Ot 428.0 08/26/2014 AMELIA WRIGHT, PASTOR J Ot 782.3 08/26/2014 AMELIA WRIGHT, PASTOR J Ot 785.0 08/26/2014 AMELIA WRIGHT, PASTOR J Ot 786.50 08/26/2014 TRISTAN WRIGHT, JAYASEELAN Ot 397.0 08/26/2014 TRISTAN WRIGHT, JAYASEELAN Ot 401.9 08/26/2014 TRISTAN MD, JAYASEELAN Ot 424.0 08/26/2014 TRISTAN WRIHGT, JAYASEELAN Ot 786.50 08/26/2014 TRISTAN MD, JAYASEELAN Ot 401.9 08/26/2014 TRISTAN WRIGHT, JAYASEELAN Ot 786.50 08/26/2014 AMELIA WRIGHT, PASTOR J Ot 251.2 08/26/2014 AMELIA WRIGHT, PASTOR J Ot 790.29 08/26/2014 AMELIA WRIGHT, PASTOR J Ot 780.39 08/26/2014 AMELIA WRIGHT, PASTOR J Ot 348.89 08/26/2014 AMELIA WRIGHT, [place] J Ot 780.97 08/26/2014 AMELIA WRIGHT, [place] J Ot 781.99 08/26/2014 AMELIA WRIGHT, PASTOR [...] PASTOR J Ot 785.0 01/15/2015 AMELIA WRIGHT, APSTOR J Ot 719.40 01/15/2015 AMELIA WRIGHT, PASTOR [...] PASTOR J Ot 780.97 01/15/2015 AMELIA WRIGHT, APSTOR J Ot 781.99 01/15/2015 AMELIA WRIGHT, PASTOR J Ot 530.81 01/15/2015 AMELIA WRIGHT, PASTOR J Ot 553.3 01/15/2015 AMELIA WRIGHT, PASTOR Blank Ot 787.20 01/15/2015 GERRY WRIGHT, YUKO Blank Ot 401.9 01/15/2015 GERRY WRIGHT, YUKO Blank Ot 785.0 01/15/2015 GERRY WRIGHT, YUKO Blank Ot 785.1 01/15/2015 GERRY WRIGHT, BASARTHUR Blank Ot 786.05 01/15/2015 JEROD WRIGTH, JACOB F Ot 433.21 01/15/2015 JEROD WRIGHT, [...] YUKO Blank Ot R00.2 01/28/2015 GERRY WRIGHT, YUOK Blank Ot R06.02 01/28/2015 GERRY WRIGHT, YUKO [...] SKIN 03/29/2015 JOSE ADLER DO Ot Z79.82 SHELTER (CURRENT) USE OF ASPIRIN 03/29/2015 JOSE ADLER DO Ot Z79.899 OTHER SHELTER (CURRENT) DRUG THERAPY 03/29/2015 JOSE ADLER DO Ot Z86.73 PRSNL HX OF TIA (TIA), AND CEREB INFRC W 04/03/2015 AMELIA WRIGHT, PASTOR Blank Ot E11.9 04/03/2015 PASTOR CISNEROS MD Ot Z79.4 05/13/2015 PASTOR CISNEROS MD Ot E11.9 05/13/2015 PASTOR CISNEROS MD Ot M79.662 05/13/2015 PASTOR CISNEROS MD Ot R51 05/22/2015 THELMA FARAH APRN Ot R20.2 PARESTHESIA OF SKIN 05/22/2015 THELMA FARAH FLEXIBLE NANNY Ot R42 DIZZINESS AND GIDDINESS 05/22/2015 THELMA FARAH FLEXIBLE NANNY Ot Z79.02 NEW BUSINESS CLERK (CURRENT) USE OF ANTITHROMBOTI 05/22/2015 THELMA FARAH FLEXIBLE NANNY Ot Z79.82 NEW BUSINESS CLERK (CURRENT) USE OF ASPIRIN 05/24/2015 RONAN SOTO MD A Ot E11.9 TYPE 2 DIABETES MELLITUS WITHOUT COMPLIC 05/24/2015 RONAN SOTO MD A Ot F17.210 NICOTINE DEPENDENCE, CIGARETTES, UNCOMPL 05/24/2015 RONAN SOTO MD A Ot R20.2 PARESTHESIA OF SKIN 05/24/2015 RONAN SOTO MD A Ot Z79.82 SHELTER (CURRENT) USE OF ASPIRIN 05/24/2015 RONAN SOTO MD A Ot Z79.899 OTHER NEW BUSINESS CLERK (CURRENT) DRUG THERAPY 06/04/2015 RONAN SOTO MD [...] HYPERTENSION 07/25/2015 GILBERT GOMEZ MD Ot Z79.02 NEW BUSINESS CLERK (CURRENT) USE OF ANTITHROMBOTI 07/25/2015 GILBERT GOMEZ MD Ot Z79.82 SHELTER (CURRENT) USE OF ASPIRIN 08/01/2015 GILBERT GOMEZ [...] HYPERTENSION 08/06/2015 GILBERT GOMEZ MD Ot Z79.02 NEW BUSINESS CLERK (CURRENT) USE OF ANTITHROMBOTI 08/06/2015 GILBERT GOMEZ MD Ot Z79.82 NEW BUSINESS CLERK (CURRENT) USE OF ASPIRIN 09/03/2015 GILBERT GOMEZ [...] 09/03/2015 GILBERT GOMEZ MD Ot Z79.899 OTHER NEW BUSINESS CLERK (CURRENT) DRUG THERAPY 09/10/2015 AKBAR EVANS MD, [...] 780.39 OTHER CONVULSIONS 09/10/2015 Ot 794.09 ABN FOREST PATROLMAN FUNCT STUDY NEC 09/10/2015 Ot 794.8 ABN LIVER FUNCTION STUDY 09/10/2015 Ot 368.9 VISUAL DISTURBANCE NOS 09/10/2015 Ot 780.2 SYNCOPE AND COLLAPSE 09/10/2015 Ot 780.79 OTH MALAISE FATIGUE 09/10/2015 Ot 786.2 COUGH 09/10/2015 Ot 786.50 CHEST PAIN NOS 09/10/2015 AMELIA WRIGHT, PASTOR Blank Ot 794.09 ABN FOREST PATROLMAN FUNCT STUDY NEC 09/10/2015 AMELIA WRIGHT, PASTOR [...] 09/10/2015 GILBERT GOMEZ MD Ot Z79.899 OTHER SHELTER (CURRENT) DRUG THERAPY 09/10/2015 YUKO GARRETT MD Ot I10 ESSENTIAL (PRIMARY) HYPERTENSION 09/10/2015 YUKO GARRETT MD Ot R00.2 PALPITATIONS 09/10/2015 YUKO GARRETT MD Ot R06.02 SHORTNESS OF BREATH 09/10/2015 YUKO GARRETT MD Ot R07.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.4 NEW BUSINESS CLERK (CURRENT) USE OF INSULIN 09/10/2015 PASTOR CISNEROS [...] HYPERTENSION 09/10/2015 GILBERT GOMEZ MD Ot Z79.02 SHELTER (CURRENT) USE OF ANTITHROMBOTI 09/10/2015 GILBERT GOMEZ MD, Ot Z79.82 NEW BUSINESS CLERK (CURRENT) USE OF ASPIRIN 09/10/2015 AKBAR EVANS [...] 10/02/2015 GILBERT GOMEZ MD Ot Z79.899 OTHER NEW BUSINESS CLERK (CURRENT) DRUG THERAPY 10/05/2015 JOSE ADLER DO Ot E87.6 HYPOKALEMIA 10/05/2015 JOSE ADLER DO Ot F41.9 ANXIETY DISORDER, UNSPECIFIED 10/05/2015 VITOR DOJOSE Ot R42 DIZZINESS AND GIDDINESS 10/29/2015 GILBERT GOEMZ MD Ot 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) THROMBOCYTHEMIA 10/29/2015 [...] 10/29/2015 GILBERT GOMEZ MD, Ot Z79.899 OTHER SHELTER (CURRENT) DRUG THERAPY 10/30/2015 GILBERT GOMEZ MD [...] 10/30/2015 GILBERT GOMEZ MD Ot Z79.899 OTHER SHELTER (CURRENT) DRUG THERAPY 11/04/2015 GILBERT GOMEZ MD [...] 11/04/2015 GILBERT GOMEZ MD, Ot Z79.899 OTHER SHELTER (CURRENT) DRUG THERAPY 12/11/2015 GILBERT GOMEZ MD, [...] 12/11/2015 GILBERT GOMEZ MD Ot Z79.899 OTHER SHELTER (CURRENT) DRUG THERAPY 12/19/2015 GILBERT GOMEZ MD [...] 12/19/2015 GILBERT GOMEZ MD Ot Z79.899 OTHER SHELTER (CURRENT) DRUG THERAPY 01/02/2016 GILBERT GOMEZ MD Ot 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) THROMBOCYTHEMIA 01/02/2016 GILBERT GOMEZ MD Ot D72.829 ELEVATED WHITE BLOOD CELL COUNT, UNSPECI 01/02/2016 GILBERT GOMEZ MD Ot E78.5 HYPERLIPIDEMIA, UNSPECIFIED 01/02/2016 GILBERT GOEMZ MD Ot I10 ESSENTIAL (PRIMARY) HYPERTENSION 01/02/2016 GILBERT GOMEZ MD Ot 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 01/02/2016 GILBERT GOMEZ MD Ot I69.998 OTHER SEQUELAE FOLLOWING UNSPECIFIED CER 01/02/2016 GILBERT GOMEZ MD Ot M62.81 MUSCLE WEAKNESS (GENERALIZED) 01/02/2016 GILBERT GOMEZ MD Ot R00.0 TACHYCARDIA, UNSPECIFIED 01/02/2016 GILBERT GOMEZ MD Ot Z79.899 OTHER SHELTER (CURRENT) DRUG THERAPY 03/17/2016 GILBERT GOMEZ MD [...] 03/17/2016 GILBERT GOMEZ MD Ot Z79.899 OTHER SHELTER (CURRENT) DRUG THERAPY 03/23/2016 Ot 272.4 HYPERLIPIDEMIA [...] 780.39 OTHER CONVULSIONS 03/23/2016 Ot 794.09 ABN FOREST PATROLMAN FUNCT STUDY NEC 03/23/2016 Ot 794.8 ABN LIVER FUNCTION STUDY 03/23/2016 Ot 368.9 VISUAL DISTURBANCE NOS 03/23/2016 Ot 780.2 SYNCOPE AND COLLAPSE 03/23/2016 Ot 780.79 OTH MALAISE FATIGUE 03/23/2016 Ot 786.2 COUGH 03/23/2016 Ot 786.50 CHEST PAIN NOS 03/23/2016 PASTOR CISNEROS MD Ot 794.09 ABN FOREST PATROLMAN FUNCT STUDY NEC 03/23/2016 PASTOR CISNEROS MD [...] COMPLIC 03/23/2016 PASTOR CISNEROS MD Ot Z79.4 NEW BUSINESS CLERK (CURRENT) USE OF INSULIN 03/23/2016 PASTOR CISNEROS [...] CISNEROS MD Ot R51 HEADACHE 03/23/2016 GILBERT GOMZE MD, Ot 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) THROMBOCYTHEMIA 03/23/2016 GILBERT GOMEZ MD Ot D68.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 03/23/2016 GILBERT GOMEZ MD, Ot D72.829 ELEVATED WHITE BLOOD CELL COUNT, UNSPECI 03/23/2016 GILBERT GOMEZ MD, Ot E78.5 HYPERLIPIDEMIA, UNSPECIFIED 03/23/2016 GILBERT GOMEZ MD Ot F17.210 NICOTINE DEPENDENCE, CIGARETTES, UNCOMPL 03/23/2016 GILBERT GOMEZ MD Ot I10 ESSENTIAL (PRIMARY) HYPERTENSION 03/23/2016 GILBERT GOMEZ MD Ot Z79.02 SHELTER (CURRENT) USE OF ANTITHROMBOTI 03/23/2016 GILBERT GOMEZ MD Ot Z79.82 SHELTER (CURRENT) USE OF ASPIRIN 03/23/2016 GILBERT GOMEZ [...] 03/23/2016 GILBERT GOMEZ MD Ot Z79.899 OTHER NEW BUSINESS CLERK (CURRENT) DRUG THERAPY 06/15/2016 JASON WRIGHT GILBERT [...] JASON WRIGHT GILBERT Esqueda Ot Z79.899 OTHER SHELTER (CURRENT) DRUG THERAPY 06/30/2016 Ot 530.81 ESOPHAGEAL [...] 780.39 OTHER CONVULSIONS 06/30/2016 Ot 794.09 ABN FOREST PATROLMAN FUNCT STUDY NEC 06/30/2016 Ot 794.8 ABN LIVER FUNCTION STUDY 06/30/2016 Ot 368.9 VISUAL DISTURBANCE NOS 06/30/2016 Ot 780.2 SYNCOPE AND COLLAPSE 06/30/2016 Ot 780.79 OTH MALAISE FATIGUE 06/30/2016 Ot 786.2 COUGH 06/30/2016 Ot 786.50 CHEST PAIN NOS 06/30/2016 AMELIA WRIGHT, PASTOR Blank Ot 794.09 ABN FOREST PATROLMAN FUNCT STUDY NEC 06/30/2016 AMELIA WRIGHT, PASTOR [...] COMPLIC 06/30/2016 PASTOR CISNEROS MD Ot Z79.4 NEW BUSINESS CLERK (CURRENT) USE OF INSULIN 06/30/2016 PASTOR CISNEROS [...] MD Ot E78.5 HYPERLIPIDEMIA, UNSPECIFIED 06/30/2016 GILBERT GMOEZ MD Ot F17.210 NICOTINE DEPENDENCE, CIGARETTES, UNCOMPL 06/30/2016 GILBERT GOMEZ MD Ot I10 ESSENTIAL (PRIMARY) HYPERTENSION 06/30/2016 GILBERT GOMEZ MD Ot Z79.02 SHELTER (CURRENT) USE OF ANTITHROMBOTI 06/30/2016 GILBERT GOMEZ MD Ot Z79.82 NEW BUSINESS CLERK (CURRENT) USE OF ASPIRIN 06/30/2016 GILBERT GOMEZ [...] 06/30/2016 GILBERT GOMEZ MD Ot Z79.899 OTHER SHELTER (CURRENT) DRUG THERAPY 06/30/2016 GILBERT GOMEZ MD [...] 06/30/2016 GILBERT GOMEZ MD Ot Z79.899 OTHER NEW BUSINESS CLERK (CURRENT) DRUG THERAPY 06/30/2016 Ot 530.81 ESOPHAGEAL [...] 780.39 OTHER CONVULSIONS 06/30/2016 Ot 794.09 ABN FOREST PATROLMAN FUNCT STUDY NEC 06/30/2016 Ot 794.8 ABN LIVER FUNCTION STUDY 06/30/2016 Ot 368.9 VISUAL DISTURBANCE NOS 06/30/2016 Ot 780.2 SYNCOPE AND COLLAPSE 06/30/2016 Ot 780.79 OTH MALAISE FATIGUE 06/30/2016 Ot 786.2 COUGH 06/30/2016 Ot 786.50 CHEST PAIN NOS 06/30/2016 AMELIA WRIGHT, PASTOR Blank Ot 794.09 ABN FOREST PATROLMAN FUNCT STUDY NEC 06/30/2016 AMELIA WRIGHT, PASTOR [...] COMPLIC 06/30/2016 PASTOR CISNEROS MD Ot Z79.4 SHELTER (CURRENT) USE OF INSULIN 06/30/2016 PASTOR CISNEROS [...] HYPERTENSION 06/30/2016 GILBERT GOMEZ MD, Ot Z79.02 SHELTER (CURRENT) USE OF ANTITHROMBOTI 06/30/2016 GILBERT GOMEZ MD, Ot Z79.82 NEW BUSINESS CLERK (CURRENT) USE OF ASPIRIN 06/30/2016 GILBERT GOMEZ [...] 06/30/2016 GILBERT GOMEZ MD, Ot Z79.899 OTHER SHELTER (CURRENT) DRUG THERAPY 07/09/2016 GILBERT GOMEZ MD, [...] 07/09/2016 GILBERT GOMEZ MD Ot Z79.899 OTHER SHELTER (CURRENT) DRUG THERAPY 08/02/2016 GILBERT GOMEZ MD [...] GROSS HEMATURIA 08/16/2016 PRISCILLA HUNT Ot Z79.02 SHELTER (CURRENT) USE OF ANTITHROMBOTI 08/16/2016 PRISCILLA HUNT Ot Z79.82 NEW BUSINESS CLERK (CURRENT) USE OF ASPIRIN 08/16/2016 PIRSCILLA HUNT Ot Z79.899 OTHER NEW BUSINESS CLERK (CURRENT) DRUG THERAPY 08/19/2016 PRISCILLA HUNT Ot E11.9 TYPE 2 DIABETES MELLITUS WITHOUT COMPLIC 08/19/2016 PRISCILLA HUNT Ot F17.210 NICOTINE DEPENDENCE, CIGARETTES, UNCOMPL 08/19/2016 PRISCILLA HUNT Ot I10 ESSENTIAL (PRIMARY) HYPERTENSION 08/19/2016 PRISCILLA HUNT Ot N30.01 ACUTE CYSTITIS WITH HEMATURIA 08/19/2016 PRISCILLA HUNT Ot R31.0 GROSS HEMATURIA 08/19/2016 PRISCILLA HUNT Ot Z79.02 NEW BUSINESS CLERK (CURRENT) USE OF ANTITHROMBOTI 08/19/2016 PRISCILLA HUNT Ot Z79.82 SHELTER (CURRENT) USE OF ASPIRIN 08/19/2016 PRISCILLA HUNT L Ot Z79.899 OTHER SHELTER (CURRENT) DRUG THERAPY 09/03/2016 GILBERT GOMEZ MD [...] 09/12/2016 GILBERT GOMEZ MD, Ot Z79.899 OTHER SHELTER (CURRENT) DRUG THERAPY 11/09/2016 AKBAR EVANS MD [...] GIDDINESS 11/09/2016 AKBAR EVANS MD, Ot Z79.82 NEW BUSINESS CLERK (CURRENT) USE OF ASPIRIN 11/09/2016 AKBAR EVANS [...] GIDDINESS 11/11/2016 AKBAR EVANS MD, Ot Z79.82 NEW BUSINESS CLERK (CURRENT) USE OF ASPIRIN 11/11/2016 AKBAR EVANS [...] OF OTHER DISEASES OF UR 11/11/2016 AKBAR VEANS MD, Ot Z87.59 PERSONAL HISTORY OF COMP [...] 12/02/2016 IGOR ARANA MD Ot Z79.899 OTHER NEW BUSINESS CLERK (CURRENT) DRUG THERAPY 12/21/2016 IGOR ARANA MD [...] 12/21/2016 IGOR ARANA MD Ot Z79.899 OTHER NEW BUSINESS CLERK (CURRENT) DRUG THERAPY 02/11/2017 IGOR ARANA MD, [...] 02/11/2017 IGOR ARANA MD, Ot Z79.899 OTHER NEW BUSINESS CLERK (CURRENT) DRUG THERAPY 03/12/2017 PRISCILLA HUNT Ot [...] ABD REGION 03/12/2017 PRISCILLA HUNT Ot Z79.82 SHELTER (CURRENT) USE OF ASPIRIN 03/12/2017 PRISCILLA HUNT [...] 03/20/2017 IGOR ARANA MD, Ot Z79.899 OTHER NEW BUSINESS CLERK (CURRENT) DRUG THERAPY 03/24/2017 PRISCILLA HUNT Ot [...] ABD REGION 03/24/2017 PRISCILLA HUNT Ot Z79.82 NEW BUSINESS CLERK (CURRENT) USE OF ASPIRIN 03/24/2017 PRISCILLA HUNT [...] GIDDINESS 04/09/2017 AKBAR EVANS MD Ot Z79.82 NEW BUSINESS CLERK (CURRENT) USE OF ASPIRIN 04/09/2017 AKBAR EVANS [...] PLEURODYNIA 04/17/2017 GWEN RAMOS MD Ot Z79.01 NEW BUSINESS CLERK (CURRENT) USE OF ANTICOAGULANT 04/17/2017 GWEN RAMOS MD Ot Z79.82 SHELTER (CURRENT) USE OF ASPIRIN 04/17/2017 GWEN RAMOS [...] PLEURODYNIA 04/18/2017 GWEN RAMOS MD Ot Z79.01 SHELTER (CURRENT) USE OF ANTICOAGULANT 04/18/2017 GWEN RAMOS MD Ot Z79.82 SHELTER (CURRENT) USE OF ASPIRIN 04/18/2017 GWEN RAMOS [...] Ot J30.2 OTHER SEASONAL ALLERGIC RHINITIS 04/28/2017 MIRLELA MCMILLAN APRN Ot J44.9 CHRONIC OBSTRUCTIVE PULMONARY DISEASE, U 04/28/2017 MIRELLA MCMILLAN APRN Ot R91.1 SOLITARY PULMONARY NODULE 05/09/2017 MIRELLA MCMILLAN APRN Ot J30.2 OTHER SEASONAL ALLERGIC RHINITIS 05/09/2017 MIRELLA MCMILLAN APRN Ot J44.9 CHRONIC OBSTRUCTIVE PULMONARY DISEASE, U 05/09/2017 HIPOLITOLIDIA GALARZAINE Shefali FLEXIBLE NANNY Ot R91.1 SOLITARY PULMONARY NODULE 05/09/2017 LIDIA MCMILLANINE Shefali FLEXIBLE NANNY Ot J30.2 OTHER SEASONAL ALLERGIC RHINITIS 05/09/2017 LIDIA MCMILLANINE Shefali FLEXIBLE NANNY Ot J44.9 CHRONIC OBSTRUCTIVE PULMONARY DISEASE, U 05/09/2017 HIPOLITOLIDIA GALARZAINE Shefali FLEXIBLE NANNY Ot R91.1 SOLITARY PULMONARY NODULE 06/13/2017 LIDIA MCMILLANINE Shefali FLEXIBLE NANNY Ot J30.2 OTHER SEASONAL ALLERGIC RHINITIS 06/13/2017 HIPOLITO, MIRELLA Shefali FLEXIBLE NANNY Ot J44.9 CHRONIC OBSTRUCTIVE PULMONARY DISEASE, U 06/13/2017 HIPOLITOLIDIA GALARZAINE Shefali FLEXIBLE NANNY Ot R91.1 SOLITARY PULMONARY NODULE 06/24/2017 SOTERO HUIZAR APRN Ot K43.9 VENTRAL HERNIA WITHOUT OBSTRUCTION OR GA 06/24/2017 SOTERO HUIZAR FLEXIBLE NANNY Ot R16.0 HEPATOMEGALY, NOT ELSEWHERE CLASSIFIED 06/29/2017 SOTERO HUIZAR APRN Ot K43.9 VENTRAL HERNIA WITHOUT OBSTRUCTION OR GA 06/29/2017 SOTERO HUIZAR FLEXIBLE NANNY Ot R16.0 HEPATOMEGALY, NOT ELSEWHERE CLASSIFIED 07/09/2017 [...] 07/09/2017 IGOR ARANA MD Ot Z79.899 OTHER SHELTER (CURRENT) DRUG THERAPY 07/14/2017 SOTERO HUIZAR APRN Ot K43.9 VENTRAL HERNIA WITHOUT OBSTRUCTION OR GA 07/14/2017 SOTERO HUIZAR FLEXIBLE NANNY Ot R16.0 HEPATOMEGALY, NOT ELSEWHERE CLASSIFIED 08/16/2017 [...] HEADACHE 08/16/2017 THELMA FARAH APRN Ot Z79.02 NEW BUSINESS CLERK (CURRENT) USE OF ANTITHROMBOTI 08/16/2017 THELMA FARAH APRN Ot Z79.82 NEW BUSINESS CLERK (CURRENT) USE OF ASPIRIN 08/16/2017 THELMA FARAH [...] HEADACHE 08/18/2017 THELMA FARAH APRN Ot Z79.02 SHELTER (CURRENT) USE OF ANTITHROMBOTI 08/18/2017 THELMA FARAH APRN Ot Z79.82 NEW BUSINESS CLERK (CURRENT) USE OF ASPIRIN 08/18/2017 THELMA FARAH [...] PAIN 09/15/2017 JULIENNE CLEVELAND MD Ot Z79.02 NEW BUSINESS CLERK (CURRENT) USE OF ANTITHROMBOTI 09/15/2017 JULIENNE CLEVELAND MD Ot Z79.82 SHELTER (CURRENT) USE OF ASPIRIN 09/15/2017 JULIENNE CLEVELAND [...] 780.39 OTHER CONVULSIONS 09/29/2017 Ot 794.09 ABN FOREST PATROLMAN FUNCT STUDY NEC 09/29/2017 Ot 794.8 ABN LIVER FUNCTION STUDY 09/29/2017 Ot 368.9 VISUAL DISTURBANCE NOS 09/29/2017 Ot 780.2 SYNCOPE AND COLLAPSE 09/29/2017 Ot 780.79 OTH MALAISE FATIGUE 09/29/2017 Ot 786.2 COUGH 09/29/2017 Ot 786.50 CHEST PAIN NOS 09/29/2017 AMELIA WRIGHT, PASTOR Blank Ot 794.09 ABN FOREST PATROLMAN FUNCT STUDY NEC 09/29/2017 PASTOR CISNEROS MD [...] COMPLIC 09/29/2017 PASTOR CISNEROS MD Ot Z79.4 SHELTER (CURRENT) USE OF INSULIN 09/29/2017 PASTOR CISNEROS [...] HYPERTENSION 09/29/2017 GILBERT GOMEZ MD Ot Z79.02 NEW BUSINESS CLERK (CURRENT) USE OF ANTITHROMBOTI 09/29/2017 GILBERT GOMEZ MD, Ot Z79.82 NEW BUSINESS CLERK (CURRENT) USE OF ASPIRIN 09/29/2017 GILBERT GOMEZ [...] 09/29/2017 IGOR ARANA MD Ot Z79.899 OTHER SHELTER (CURRENT) DRUG THERAPY 09/29/2017 MIRELLA MCMILLAN APRN Ot J43.8 OTHER EMPHYSEMA 09/29/2017 MIRELLA MCMILLAN APRN Ot R91.1 SOLITARY PULMONARY NODULE 09/29/2017 HIPOLITO, MIRELLA E FLEXIBLE NANNY Ot Z72.0 TOBACCO USE 09/29/2017 MIRELLA MCMILLAN FLEXIBLE NANNY Ot J30.2 OTHER SEASONAL ALLERGIC RHINITIS 09/29/2017 MIRELLA MCMILLAN FLEXIBLE NANNY Ot J44.9 CHRONIC OBSTRUCTIVE PULMONARY DISEASE, U 09/29/2017 MIRELLA MCMILLAN FLEXIBLE NANNY Ot R91.1 SOLITARY PULMONARY NODULE 09/29/2017 HUIZARSOTERO Cox FLEXIBLE NANNY Ot K43.9 VENTRAL HERNIA WITHOUT OBSTRUCTION OR GA 09/29/2017 HUIZARSOTERO Cox FLEXIBLE NANNY Ot R16.0 HEPATOMEGALY, NOT ELSEWHERE CLASSIFIED 10/04/2017 GERRY WRIGHT, YUKO Blank Ot I10 ESSENTIAL (PRIMARY) HYPERTENSION 10/04/2017 YUKO GARRETT MD Ot J44.9 CHRONIC OBSTRUCTIVE PULMONARY DISEASE, U 10/04/2017 YUKO GARRETT MD Ot K21.9 GASTRO-ESOPHAGEAL REFLUX DISEASE WITHOUT 10/04/2017 YUKO GARRETT MD Ot R07.9 CHEST PAIN, UNSPECIFIED 10/08/2017 MIRELLA MCMILLAN FLEXIBLE NANNY Ot J43.8 OTHER EMPHYSEMA 10/08/2017 MIRELLA MCMILLAN FLEXIBLE NANNY Ot R91.1 SOLITARY PULMONARY NODULE 10/08/2017 MIRELLA MCMILLAN FLEXIBLE NANNY Ot Z72.0 TOBACCO USE 10/18/2017 MIRELLA MCMILLAN FLEXIBLE NANNY Ot J30.2 OTHER SEASONAL ALLERGIC RHINITIS 10/18/2017 MIRELLA MCMILLAN FLEXIBLE NANNY Ot J44.9 CHRONIC OBSTRUCTIVE PULMONARY DISEASE, U 10/18/2017 MIRELLA MCMILLAN FLEXIBLE NANNY Ot R91.1 SOLITARY PULMONARY NODULE 11/04/2017 AMELIA [...] 11/04/2017 IGOR ARANA MD Ot Z79.899 OTHER SHELTER (CURRENT) DRUG THERAPY 11/04/2017 BILLY GOLD MD [...] UNSPECIFIED 11/04/2017 BILLY GOLD MD Ot Z79.02 SHELTER (CURRENT) USE OF ANTITHROMBOTI 11/04/2017 BILLY GOLD MD Ot Z79.82 SHELTER (CURRENT) USE OF ASPIRIN 11/04/2017 BILLY GOLD [...] 11/07/2017 ASIF WRIGHT, BILLY Baeza Ot Z79.02 SHELTER (CURRENT) USE OF ANTITHROMBOTI 11/07/2017 BILLY GOLD MD Ot Z79.82 SHELTER (CURRENT) USE OF ASPIRIN 11/07/2017 ASIF WRIGHT, [...] GIDDINESS 11/24/2017 THELMA FARAH APRN Ot Z79.02 NEW BUSINESS CLERK (CURRENT) USE OF ANTITHROMBOTI 11/24/2017 THELMA FARAH APRN Ot Z79.82 SHELTER (CURRENT) USE OF ASPIRIN 11/24/2017 THELMA FARAH APRN Ot Z80.0 FAMILY HISTORY OF MALIGNANT NEOPLASM OF 11/24/2017 THELMA FARAH FLEXIBLE NANNY Ot Z82.49 FAMILY HX OF ISCHEM HEART DIS AND OTH DI 11/24/2017 THELMA FARAH APRN Ot Z86.73 PRSNL HX OF TIA (TIA), AND CEREB INFRC W 11/24/2017 THELMA FARAH APRN Ot Z87.19 PERSONAL HISTORY OF OTHER DISEASES OF TH 11/24/2017 THELMA FARAH APRN Ot Z87.440 PERSONAL HISTORY OF URINARY (TRACT) INFE 11/24/2017 THELMA FARAH FLEXIBLE NANNY Ot Z87.59 PERSONAL HISTORY OF COMP OF PREG, CHLDBR 11/24/2017 THELMA FARAH APRN Ot Z88.0 ALLERGY STATUS TO PENICILLIN 11/24/2017 THELMA FARAH APRN Ot Z88.5 ALLERGY STATUS TO NARCOTIC AGENT STATUS 11/24/2017 THELMA FARAH APRN Ot Z88.8 ALLERGY STATUS TO OTH DRUG/MEDS/BIOL SUB 11/24/2017 THELMA FARAH APRN Ot Z98.51 TUBAL LIGATION STATUS 12/01/2017 MIRELLA MCMILLAN FLEXIBLE NANNY Ot R91.8 OTHER NONSPECIFIC ABNORMAL FINDING OF GIOVANNA 12/01/2017 MIRELLA MCMILLAN FLEXIBLE NANNY Ot Z72.0 TOBACCO USE 12/05/2017 SOTERO HUIZAR FLEXIBLE NANNY Ot I70.0 ATHEROSCLEROSIS OF AORTA 12/05/2017 SOTERO HUIZAR FLEXIBLE NANNY Ot I70.90 UNSPECIFIED ATHEROSCLEROSIS 12/05/2017 SOTERO HUIZAR FLEXIBLE NANNY Ot K43.9 VENTRAL HERNIA WITHOUT OBSTRUCTION OR GA 12/05/2017 SOTERO HUIZAR FLEXIBLE NANNY Ot K76.0 FATTY (CHANGE OF) LIVER, NOT ELSEWHERE C 12/05/2017 SOTERO HUIZAR FLEXIBLE NANNY Ot N39.0 URINARY TRACT INFECTION, SITE NOT SPECIF 12/05/2017 SOTERO HUIZAR FLEXIBLE NANNY Ot I70.0 ATHEROSCLEROSIS OF AORTA 12/05/2017 SOTERO HUIZAR FLEXIBLE NANNY Ot I70.90 UNSPECIFIED ATHEROSCLEROSIS 12/05/2017 SOTERO HUIZAR FLEXIBLE NANNY Ot K43.9 VENTRAL HERNIA WITHOUT OBSTRUCTION OR GA 12/05/2017 SOTERO HUIZAR FLEXIBLE NANNY Ot K76.0 FATTY (CHANGE OF) LIVER, NOT ELSEWHERE C 12/05/2017 SOTERO HUIZAR FLEXIBLE NANNY Ot N39.0 URINARY TRACT INFECTION, SITE NOT SPECIF 12/07/2017 MAGDA MARTINEZ Ot D72.829 ELEVATED WHITE BLOOD CELL COUNT, UNSPECI 12/07/2017 MAGDA MARTINEZP Ot E11.9 TYPE 2 DIABETES MELLITUS WITHOUT COMPLIC 12/07/2017 MAGDA MARTINEZP Ot E78.00 PURE HYPERCHOLESTEROLEMIA, UNSPECIFIED 12/07/2017 MAGDA MARTINEZP Ot F17.210 NICOTINE DEPENDENCE, CIGARETTES, UNCOMPL 12/07/2017 MAGDA MARTINEZ PUBLIC HEALTH CLINICAL NURSE SPECIALIST Ot F41.0 PANIC DISORDER [EPISODIC PAROXYSMAL ANXI 12/07/2017 MAGDA MARTINEZP Ot G43.909 MIGRAINE, UNSP, NOT INTRACTABLE, WITHOUT 12/07/2017 MICHELLE MAGDA PUBLIC HEALTH CLINICAL NURSE SPECIALIST Ot I10 ESSENTIAL (PRIMARY) HYPERTENSION 12/07/2017 MAGDA MARTINEZP Ot K21.9 GASTRO-ESOPHAGEAL REFLUX DISEASE WITHOUT 12/07/2017 MAGDA MARTINEZ PUBLIC HEALTH CLINICAL NURSE SPECIALIST Ot Z79.02 NEW BUSINESS CLERK (CURRENT) USE OF ANTITHROMBOTI 12/07/2017 MAGDA MARTINEZP Ot Z79.82 NEW BUSINESS CLERK (CURRENT) USE OF ASPIRIN 12/07/2017 MAGDA MARTINEZ PUBLIC HEALTH CLINICAL NURSE SPECIALIST Ot Z80.0 FAMILY HISTORY OF MALIGNANT NEOPLASM OF 12/07/2017 MAGDA MARTINEZ PUBLIC HEALTH CLINICAL NURSE SPECIALIST Ot Z82.49 FAMILY HX OF ISCHEM HEART DIS AND OTH DI 12/07/2017 MAGDA MARTINEZ PUBLIC HEALTH CLINICAL NURSE SPECIALIST Ot Z86.73 PRSNL HX OF TIA (TIA), AND CEREB INFRC W 12/07/2017 MAGDA MARTINEZ PUBLIC HEALTH CLINICAL NURSE SPECIALIST Ot Z87.19 PERSONAL HISTORY OF OTHER DISEASES OF TH 12/07/2017 MAGDA MARTINEZP Ot Z87.440 PERSONAL HISTORY OF URINARY (TRACT) INFE 12/07/2017 MAGDA MARTINEZ PUBLIC HEALTH CLINICAL NURSE SPECIALIST Ot Z88.0 ALLERGY STATUS TO PENICILLIN 12/07/2017 MAGDA MARTINEZ PUBLIC HEALTH CLINICAL NURSE SPECIALIST Ot Z88.5 ALLERGY STATUS TO NARCOTIC AGENT STATUS 12/07/2017 MAGDA MARTINEZ PUBLIC HEALTH CLINICAL NURSE SPECIALIST Ot Z88.8 ALLERGY STATUS TO OT DRUG/MEDS/BIOL SUB 12/07/2017 MAGDA MARTINEZ PUBLIC HEALTH CLINICAL NURSE SPECIALIST Ot Z98.51 TUBAL LIGATION STATUS 12/07/2017 MAGDA [...] BLOOD CELL COUNT, UNSPECI 12/09/2017 MAGDA MARTINEZ PUBLIC HEALTH CLINICAL NURSE SPECIALIST Ot E11.9 TYPE 2 DIABETES MELLITUS WITHOUT COMPLIC 12/09/2017 MICHELLE MAGDA PUBLIC HEALTH CLINICAL NURSE SPECIALIST Ot E78.00 PURE HYPERCHOLESTEROLEMIA, UNSPECIFIED 12/09/2017 MICHELLE, MAGDA PUBLIC HEALTH CLINICAL NURSE SPECIALIST Ot F17.210 NICOTINE DEPENDENCE, CIGARETTES, UNCOMPL 12/09/2017 MICHELLE MAGDA PUBLIC HEALTH CLINICAL NURSE SPECIALIST Ot F41.0 PANIC DISORDER [EPISODIC PAROXYSMAL ANXI 12/09/2017 MICHELLE MAGDA PUBLIC HEALTH CLINICAL NURSE SPECIALIST Ot G43.909 MIGRAINE, UNSP, NOT INTRACTABLE, WITHOUT 12/09/2017 MICHELLE MAGDA PUBLIC HEALTH CLINICAL NURSE SPECIALIST Ot I10 ESSENTIAL (PRIMARY) HYPERTENSION 12/09/2017 MICHELLE MAGDA PUBLIC HEALTH CLINICAL NURSE SPECIALIST Ot K21.9 GASTRO-ESOPHAGEAL REFLUX DISEASE WITHOUT 12/09/2017 MICHELLE MAGDA PUBLIC HEALTH CLINICAL NURSE SPECIALIST Ot Z79.02 SHELTER (CURRENT) USE OF ANTITHROMBOTI 12/09/2017 MAGDA MARTINEZ PUBLIC HEALTH CLINICAL NURSE SPECIALIST Ot Z79.82 NEW BUSINESS CLERK (CURRENT) USE OF ASPIRIN 12/09/2017 MICHELLE MAGDA PUBLIC HEALTH CLINICAL NURSE SPECIALIST Ot Z80.0 FAMILY HISTORY OF MALIGNANT NEOPLASM OF 12/09/2017 MAGDA MARTINEZ PUBLIC HEALTH CLINICAL NURSE SPECIALIST Ot Z82.49 FAMILY HX OF ISCHEM HEART DIS AND OTH DI 12/09/2017 MAGDA MARTINEZ PUBLIC HEALTH CLINICAL NURSE SPECIALIST Ot Z86.73 PRSNL HX OF TIA (TIA), AND CEREB INFRC W 12/09/2017 MICHELLE MAGDA PUBLIC HEALTH CLINICAL NURSE SPECIALIST Ot Z87.19 PERSONAL HISTORY OF OTHER DISEASES OF TH 12/09/2017 MAGDA MARTINEZ PUBLIC HEALTH CLINICAL NURSE SPECIALIST Ot Z87.440 PERSONAL HISTORY OF URINARY (TRACT) INFE 12/09/2017 MICHELLE MAGDA PUBLIC HEALTH CLINICAL NURSE SPECIALIST Ot Z88.0 ALLERGY STATUS TO PENICILLIN 12/09/2017 MICHELLE MAGDA PUBLIC HEALTH CLINICAL NURSE SPECIALIST Ot Z88.5 ALLERGY STATUS TO NARCOTIC AGENT STATUS 12/09/2017 MAGDA MARTINEZ PUBLIC HEALTH CLINICAL NURSE SPECIALIST Ot Z88.8 ALLERGY STATUS TO OTH DRUG/MEDS/BIOL SUB 12/09/2017 MAGDA MARTINEZP Ot Z98.51 TUBAL LIGATION STATUS 12/09/2017 MAGDA MARTINEZ Ot Z98.890 OTHER SPECIFIED POSTPROCEDURAL STATES 12/28/2017 SOTERO HUIZAR FLEXIBLE NANNY Ot I70.0 ATHEROSCLEROSIS OF [place]ORT[place] 12/28/2017 SOTERO HUIZAR FLEXIBLE NANNY Ot I70.90 UNSPECIFIED ATHEROSCLEROSIS 12/28/2017 SOTERO HUIZAR FLEXIBLE NANNY Ot K43.9 VENTRAL HERNIA WITHOUT OBSTRUCTION OR GA 12/28/2017 SOTERO HUIZAR FLEXIBLE NANNY Ot K76.0 FATTY (CHANGE OF) LIVER, NOT ELSEWHERE C 12/28/2017 SOTERO HUIZAR FLEXIBLE NANNY Ot N39.0 URINARY TRACT INFECTION, SITE NOT SPECIF 01/23/2018 RENY MEJIA Ot E11.9 TYPE 2 DIABETES MELLITUS WITHOUT COMPLIC 01/23/2018 ROBERTO RENY Ot E78.00 PURE HYPERCHOLESTEROLEMIA, UNSPECIFIED 01/23/2018 ROB MEJIAIS Ot F17.210 NICOTINE DEPENDENCE, CIGARETTES, UNCOMPL 01/23/2018 ROBERTO RENY Ot F41.9 ANXIETY DISORDER, UNSPECIFIED 01/23/2018 ROBERTO RENY Ot G43.909 MIGRAINE, UNSP, NOT INTRACTABLE, WITHOUT 01/23/2018 ROBERTO RENY Ot I10 ESSENTIAL (PRIMARY) HYPERTENSION 01/23/2018 ROBERTO RENY Ot R10.32 LEFT LOWER QUADRANT PAIN 01/23/2018 ROB MEJIAIS Ot Z79.82 NEW BUSINESS CLERK (CURRENT) USE OF ASPIRIN 01/23/2018 ROB MEJIAIS Ot Z86.73 PRSNL HX OF TIA (TIA), AND CEREB INFRC W 01/23/2018 ROB MEJIAIS Ot Z87.440 PERSONAL HISTORY OF URINARY (TRACT) INFE 01/23/2018 ROB MEJIAIS Ot Z88.0 ALLERGY STATUS TO PENICILLIN 01/23/2018 ROB MEJIAIS Ot Z88.1 ALLERGY STATUS TO OTHER ANTIBIOTIC AGENT 01/23/2018 ROB MEJIAIS Ot Z88.5 ALLERGY STATUS TO NARCOTIC AGENT STATUS 01/23/2018 ROB MEJIAIS Ot Z88.8 ALLERGY STATUS TO OTH DRUG/MEDS/BIOL SUB 01/23/2018 ROB MEJIAIS Ot Z98.51 TUBAL LIGATION STATUS 01/26/2018 CLIVEZENIA, RENY Ot E11.9 TYPE 2 DIABETES MELLITUS WITHOUT COMPLIC 01/26/2018 BERNOT, RENY Ot E78.00 PURE HYPERCHOLESTEROLEMIA, UNSPECIFIED 01/26/2018 BERNZENIA, RENY Ot F17.210 NICOTINE DEPENDENCE, CIGARETTES, UNCOMPL 01/26/2018 BERNZENIA, RENY Ot F41.9 ANXIETY DISORDER, UNSPECIFIED 01/26/2018 BERNOT, RENY Ot G43.909 MIGRAINE, UNSP, NOT INTRACTABLE, WITHOUT 01/26/2018 BERNOT, RENY Ot I10 ESSENTIAL (PRIMARY) HYPERTENSION 01/26/2018 BERNZENIA, RENY Ot R10.32 LEFT LOWER QUADRANT PAIN 01/26/2018 BERNOT, RENY Ot Z79.82 SHELTER (CURRENT) USE OF ASPIRIN 01/26/2018 BERNZENIA, RENY Ot Z86.73 PRSNL HX OF TIA (TIA), AND CEREB INFRC W 01/26/2018 ROBERTO RENY Ot Z87.440 PERSONAL HISTORY OF URINARY (TRACT) INFE 01/26/2018 CLIVEZENIA RENY Ot Z88.0 ALLERGY STATUS TO PENICILLIN 01/26/2018 ROBERTO, RENY Ot Z88.1 ALLERGY STATUS TO OTHER ANTIBIOTIC AGENT 01/26/2018 ROBERTO, RENY Ot Z88.5 ALLERGY STATUS TO NARCOTIC AGENT STATUS 01/26/2018 CLIVEZENIA RENY Ot Z88.8 ALLERGY STATUS TO OTH DRUG/MEDS/BIOL SUB 01/26/2018 ROBERTO RENY Ot Z98.51 TUBAL LIGATION STATUS 02/02/2018 PRISCILLA HUNT Ot D72.829 ELEVATED WHITE BLOOD CELL COUNT, UNSPECI 02/02/2018 PRISCILLA HUNT Ot E11.9 TYPE 2 DIABETES MELLITUS WITHOUT COMPLIC 02/02/2018 PRISCILLA HUNT Ot E78.00 PURE HYPERCHOLESTEROLEMIA, UNSPECIFIED 02/02/2018 PRISCILLA HUNT Ot F41.9 ANXIETY DISORDER, UNSPECIFIED 02/02/2018 PRISCILLA HUNT Ot G43.909 MIGRAINE, UNSP, NOT INTRACTABLE, WITHOUT 02/02/2018 PRISCILLA HUNT Ot I10 ESSENTIAL (PRIMARY) HYPERTENSION 02/02/2018 PRISCILLA HUNT Ot J40 BRONCHITIS, NOT SPECIFIED ACUTE OR CH 02/02/2018 PRISCILLA HUNT Ot K21.9 GASTRO-ESOPHAGEAL REFLUX DISEASE WITHOUT 02/02/2018 PRISCILLA HUNT Ot R05 COUGH 02/02/2018 PRISCILLA HUNT Ot Z77.22 CNTCT W AND EXPSR TO ENVIRON TOBACCO SMO 02/02/2018 PRISCILLA HUNT Ot Z79.02 SHELTER (CURRENT) USE OF ANTITHROMBOTI 02/02/2018 PRISCILLA HUNT Ot Z79.82 NEW BUSINESS CLERK (CURRENT) USE OF ASPIRIN 02/02/2018 PRISCILLA HUNT Ot Z80.0 FAMILY HISTORY OF MALIGNANT NEOPLASM OF 02/02/2018 PRISCILLA HUNT Ot Z82.49 FAMILY HX OF ISCHEM HEART DIS AND OTH DI 02/02/2018 PRISCILLA HUNT Ot Z86.73 PRSNL HX OF TIA (TIA), AND CEREB INFRC W 02/02/2018 PRISCILLA HUNT Ot Z87.19 PERSONAL HISTORY OF OTHER DISEASES OF TH 02/02/2018 PRISCILLA HUNT Ot Z87.440 PERSONAL HISTORY OF URINARY (TRACT) INFE 02/02/2018 PRISCILLA HUNT Ot Z88.0 ALLERGY STATUS TO PENICILLIN 02/02/2018 PRISCILLA HUNT Ot Z88.5 ALLERGY STATUS TO NARCOTIC AGENT STATUS 02/02/2018 PRISCILLA HUNT Ot Z88.8 ALLERGY STATUS TO OTH DRUG/MEDS/BIOL SUB 02/02/2018 PRISCILLA HUNT Ot Z98.51 TUBAL LIGATION STATUS 02/02/2018 PRISCILLA HUNT Ot Z98.890 OTHER SPECIFIED POSTPROCEDURAL STATES 02/06/2018 PRISCILLA HUNT Ot D72.829 ELEVATED WHITE BLOOD CELL COUNT, UNSPECI 02/06/2018 PRISCILLA HUNT Ot E11.9 TYPE 2 DIABETES MELLITUS WITHOUT COMPLIC 02/06/2018 PRISCILLA HUNT Ot E78.00 PURE HYPERCHOLESTEROLEMIA, UNSPECIFIED 02/06/2018 PRISCILLA HUNT Ot F41.9 ANXIETY DISORDER, UNSPECIFIED 02/06/2018 PRISCILLA HUNT Ot G43.909 MIGRAINE, UNSP, NOT INTRACTABLE, WITHOUT 02/06/2018 PRISCILLA HUNT Ot I10 ESSENTIAL (PRIMARY) HYPERTENSION 02/06/2018 PRISCILLA HUNT Ot J40 BRONCHITIS, NOT SPECIFIED ACUTE OR CH 02/06/2018 PRISCILLA HUNT Ot K21.9 GASTRO-ESOPHAGEAL REFLUX DISEASE WITHOUT 02/06/2018 PRISCILLA HUNT Ot R05 COUGH 02/06/2018 PRISCILLA HUNT Ot Z77.22 CNTCT W AND EXPSR TO ENVIRON TOBACCO SMO 02/06/2018 PRISCILLA HUNT Ot Z79.02 NEW BUSINESS CLERK (CURRENT) USE OF ANTITHROMBOTI 02/06/2018 PRISCILLA HUNT Ot Z79.82 NEW BUSINESS CLERK (CURRENT) USE OF ASPIRIN 02/06/2018 PRISCILLA HUNT Ot Z80.0 FAMILY HISTORY OF MALIGNANT NEOPLASM OF 02/06/2018 PRISCILLA HNUT Ot Z82.49 FAMILY HX OF ISCHEM HEART DIS AND OTH DI 02/06/2018 PRISCILLA HUNT Ot Z86.73 PRSNL HX OF TIA (TIA), AND CEREB INFRC W 02/06/2018 PRISCILLA HUNT Ot Z87.19 PERSONAL HISTORY OF OTHER DISEASES OF TH 02/06/2018 PRISCILLA HUNT Ot Z87.440 PERSONAL HISTORY OF URINARY (TRACT) INFE 02/06/2018 PRISCILLA HUNT Ot Z88.0 ALLERGY STATUS TO PENICILLIN 02/06/2018 PRISCILLA HUNT Ot Z88.5 ALLERGY STATUS TO NARCOTIC AGENT STATUS 02/06/2018 PRISCILLA HUNT Ot Z88.8 ALLERGY STATUS TO OT DRUG/MEDS/BIOL SUB 02/06/2018 PRISCILLA HUNT Ot Z98.51 TUBAL LIGATION STATUS 02/06/2018 PRISCILLA HUNT Ot Z98.890 OTHER SPECIFIED POSTPROCEDURAL STATES 02/24/2018 BERNOT, RENY Ot E11.9 TYPE 2 DIABETES MELLITUS WITHOUT COMPLIC 02/24/2018 BERNOT, RENY Ot E78.00 PURE HYPERCHOLESTEROLEMIA, UNSPECIFIED 02/24/2018 BERNOT, RENY Ot F41.9 ANXIETY DISORDER, UNSPECIFIED 02/24/2018 BERNOT, RENY Ot G43.909 MIGRAINE, UNSP, NOT INTRACTABLE, WITHOUT 02/24/2018 BERNOT, RENY Ot I10 ESSENTIAL (PRIMARY) HYPERTENSION 02/24/2018 RENY MEJIA Ot K21.9 GASTRO-ESOPHAGEAL REFLUX DISEASE WITHOUT 02/24/2018 ROB MEJIAIS Ot L29.9 PRURITUS, UNSPECIFIED 02/24/2018 ROB MEJIAIS Ot L53.9 ERYTHEMATOUS CONDITION, UNSPECIFIED 02/24/2018 ROB MEJIAIS Ot T80.89XA OTH COMP FOL INFUSION, TRANSFUSE AND THE 02/24/2018 ROB MEJIAIS Ot Z77.22 CNTCT W AND EXPSR TO ENVIRON TOBACCO SMO 02/24/2018 ROB MEJIAIS Ot Z79.02 NEW BUSINESS CLERK (CURRENT) USE OF ANTITHROMBOTI 02/24/2018 ROB MEJIAIS Ot Z79.82 NEW BUSINESS CLERK (CURRENT) USE OF ASPIRIN 02/24/2018 ROB MEJIAIS Ot Z80.0 FAMILY HISTORY OF MALIGNANT NEOPLASM OF 02/24/2018 ROB MEJIAIS Ot Z82.49 FAMILY HX OF ISCHEM HEART DIS AND OTH DI 02/24/2018 ROB MEJIAIS Ot Z86.73 PRSNL HX OF TIA (TIA), AND CEREB INFRC W 02/24/2018 ROB MEJIAIS Ot Z87.19 PERSONAL HISTORY OF OTHER DISEASES OF TH 02/24/2018 ROB MEJIAIS Ot Z87.440 PERSONAL HISTORY OF URINARY (TRACT) INFE 02/24/2018 ROB MEJIAIS Ot Z87.448 PERSONAL HISTORY OF OTHER DISEASES OF UR 02/24/2018 ROB MEJIAIS Ot Z88.0 ALLERGY STATUS TO PENICILLIN 02/24/2018 ROB MEJIAIS Ot Z88.5 ALLERGY STATUS TO NARCOTIC AGENT STATUS 02/24/2018 ROB MEJIAIS Ot Z88.8 ALLERGY STATUS TO OT DRUG/MEDS/BIOL SUB 02/24/2018 ROB MEJIAIS Ot Z98.51 TUBAL LIGATION STATUS 02/24/2018 ROB MEJIAIS Ot Z98.890 OTHER SPECIFIED POSTPROCEDURAL STATES 02/27/2018 ROB MEJIAIS Ot E11.9 TYPE 2 DIABETES MELLITUS WITHOUT COMPLIC 02/27/2018 ROB MEJIAIS Ot E78.00 PURE HYPERCHOLESTEROLEMIA, UNSPECIFIED 02/27/2018 ROB MEJIAIS Ot F41.9 ANXIETY DISORDER, UNSPECIFIED 02/27/2018 ROB MEJIAIS Ot G43.909 MIGRAINE, UNSP, NOT INTRACTABLE, WITHOUT 02/27/2018 BERNOT, RENY Ot I10 ESSENTIAL (PRIMARY) HYPERTENSION 02/27/2018 BERNOT, RENY Ot K21.9 GASTRO-ESOPHAGEAL REFLUX DISEASE WITHOUT 02/27/2018 BERNOT, RENY Ot L29.9 PRURITUS, UNSPECIFIED 02/27/2018 BERNOT, RENY Ot L53.9 ERYTHEMATOUS CONDITION, UNSPECIFIED 02/27/2018 BERNOT, RENY Ot T80.89XA OTH COMP FOL INFUSION, TRANSFUSE AND THE 02/27/2018 BERNZENIA, RENY Ot Z77.22 CNTCT W AND EXPSR TO ENVIRON TOBACCO SMO 02/27/2018 BERNZENIA, RENY Ot Z79.02 NEW BUSINESS CLERK (CURRENT) USE OF ANTITHROMBOTI 02/27/2018 BERNOT, RENY Ot Z79.82 SHELTER (CURRENT) USE OF ASPIRIN 02/27/2018 BERNOT, RENY Ot Z80.0 FAMILY HISTORY OF MALIGNANT NEOPLASM OF 02/27/2018 BERNZENIA, RENY Ot Z82.49 FAMILY HX OF ISCHEM HEART DIS AND OTH DI 02/27/2018 BERNOT, RENY Ot Z86.73 PRSNL HX OF TIA (TIA), AND CEREB INFRC W 02/27/2018 BERNOT, RENY Ot Z87.19 PERSONAL HISTORY OF OTHER DISEASES OF TH 02/27/2018 BERNOT, RENY Ot Z87.440 PERSONAL HISTORY OF URINARY (TRACT) INFE 02/27/2018 BERNOT, RENY Ot Z87.448 PERSONAL HISTORY OF OTHER DISEASES OF UR 02/27/2018 BERNOT, RENY Ot Z88.0 ALLERGY STATUS TO PENICILLIN 02/27/2018 BERNOT, RENY Ot Z88.5 ALLERGY STATUS TO NARCOTIC AGENT STATUS 02/27/2018 BERNOT, RENY Ot Z88.8 ALLERGY STATUS TO OTH DRUG/MEDS/BIOL SUB 02/27/2018 BERNOT, RENY Ot Z98.51 TUBAL LIGATION STATUS 02/27/2018 BERNOT, RENY Ot Z98.890 OTHER SPECIFIED POSTPROCEDURAL STATES 03/01/2018 AMELIA WRIGHT, PASTOR Blank Ot 723.1 CERVICALGIA 03/01/2018 AMELIA WRIGHT, PASTOR Blank Ot 729.5 PAIN IN LIMB 03/01/2018 AMELIA WRIGHT, PASTOR Blank Ot 719.40 JOINT PAIN-UNSPEC 03/01/2018 AMELIA WRIGHT, PASTOR J Ot 780.79 OTH MALAISE FATIGUE 03/01/2018 AMELIA WRIGHT, PASTOR Blank Ot 782.3 EDEMA 03/01/2018 AMELIA WRIGHT, PASTOR Blank Ot 785.0 TACHYCARDIA NOS 03/01/2018 AMELIA WRIGHT, PASTOR Blank Ot 719.40 JOINT PAIN-UNSPEC 03/01/2018 PASTOR CISNEROS MD Ot 780.79 OTH MALAISE FATIGUE 03/01/2018 AMELIA WRIGHT, PASTOR Blank Ot 782.3 EDEMA 03/01/2018 AMELIA WRIGHT, PASTOR Blank Ot 785.0 TACHYCARDIA NOS 03/01/2018 AMELIA WRIGHT, PASTOR J Ot 305.1 TOBACCO USE DISORDER 03/01/2018 AMELIA WRIGHT, PASTOR Blank Ot 401.9 HYPERTENSION NOS 03/01/2018 AMELIA WRIGHT, PASTOR Blank Ot 428.0 CONGESTIVE HEART FAILURE NOS 03/01/2018 AMELIA WRIGHT, PASTOR Blank Ot 782.3 EDEMA 03/01/2018 AMELIA WRIGHT, PASTOR Blank Ot 785.0 TACHYCARDIA NOS 03/01/2018 AMELIA WRIGHT, PASOTR Blank Ot 786.50 CHEST PAIN NOS 03/01/2018 TRISTAN WRIGHT, SULEMA Ot 397.0 TRICUSPID VALVE DISEASE 03/01/2018 TRISTAN WRIGHT, ALBERTASEELAN Ot 401.9 HYPERTENSION NOS 03/01/2018 TRISTAN WRIGHT, ALBERTASEELAN Ot 424.0 MITRAL VALVE DISORDER 03/01/2018 TRISTAN WRIGHT, SULEMA Ot 786.50 CHEST PAIN NOS 03/01/2018 TRISTAN WRIGHT, ADINAELAN Ot 401.9 HYPERTENSION NOS 03/01/2018 TRISTAN WRIGHT, SULEMA Ot 786.50 CHEST PAIN NOS 03/01/2018 AMEILA WRIGHT, PASTOR Blank Ot 251.2 HYPOGLYCEMIA NOS 03/01/2018 AMELIA WRIGHT, PASTOR Blank Ot 790.29 OTHER ABNORMAL GLUCOSE 03/01/2018 AMELIA WRIGHT, PASTOR Blank Ot 780.39 OTHER CONVULSIONS 03/01/2018 AMELIA WRIGHT, PASTOR Blank Ot 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 03/01/2018 AMELIA WRIGHT, PASTOR Blank Ot 780.97 ALTERED MENTAL STATUS 03/01/2018 AMELIA WRIGHT, PASTOR Blank Ot 781.99 NERV/MUSCULOSKEL SYS SYMP NEC 03/01/2018 APSTOR CISNEROS MD Ot 530.81 ESOPHAGEAL REFLUX 03/01/2018 AMELIA WRIGHT, PASTOR Blank Ot 553.3 DIAPHRAGMATIC HERNIA 03/01/2018 AMELIA WRIGHT, PASTOR Blank Ot 787.20 DYSPHAGIA, UNSPECIFIED 03/01/2018 YUKO GARRETT MD Ot 401.9 HYPERTENSION NOS 03/01/2018 YUKO GARRETT MD Ot 785.0 TACHYCARDIA NOS 03/01/2018 YUKO GARRETT MD Ot 785.1 PALPITATIONS 03/01/2018 YUKO GARRETT MD Ot 786.05 SHORTNESS OF BREATH 03/01/2018 JACOB NEWSOME MD Ot 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 03/01/2018 JACOB NEWSOME MD Ot 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 03/01/2018 JACOB NEWSOME MD Ot 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 03/01/2018 JACOB NEWSOME MD Ot 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 03/01/2018 YUKO GARRETT MD Ot I10 ESSENTIAL (PRIMARY) HYPERTENSION 03/01/2018 YUKO GARRETT MD Ot R00.2 PALPITATIONS 03/01/2018 YUKO GARRETT MD Ot R06.02 SHORTNESS OF BREATH 03/01/2018 YUKO GARRETT MD Ot R07.89 OTHER CHEST PAIN 03/01/2018 PASTOR CISNEROS MD Ot E11.9 TYPE 2 DIABETES MELLITUS WITHOUT COMPLIC 03/01/2018 PASTOR CISNEROS MD Ot Z79.4 NEW BUSINESS CLERK (CURRENT) USE OF INSULIN 03/01/2018 PASTOR CISNEROS MD Ot E11.9 TYPE 2 DIABETES MELLITUS WITHOUT COMPLIC 03/01/2018 PASTOR CISNEROS MD Ot E66.9 OBESITY, UNSPECIFIED 03/01/2018 PASTOR CISNEROS MD Ot I73.9 PERIPHERAL VASCULAR DISEASE, UNSPECIFIED 03/01/2018 PASTOR CISNEROS MD Ot Z86.73 PRSNL HX OF TIA (TIA), AND CEREB INFRC W 03/01/2018 PASTOR CISNEROS MD Ot E11.9 TYPE 2 DIABETES MELLITUS WITHOUT COMPLIC 03/01/2018 PASTOR CISNEROS MD Ot M79.662 PAIN IN LEFT LOWER LEG 03/01/2018 PASTOR CISNEROS MD Ot R51 HEADACHE 03/01/2018 GILBERT GOMEZ MD Ot 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) THROMBOCYTHEMIA 03/01/2018 GILBERT GOMEZ MD Ot D68.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 03/01/2018 GILBERT GOMEZ MD Ot D72.829 ELEVATED WHITE BLOOD CELL COUNT, UNSPECI 03/01/2018 GILBERT GOMEZ MD Ot E78.5 HYPERLIPIDEMIA, UNSPECIFIED 03/01/2018 GILBERT GOMEZ MD Ot F17.210 NICOTINE DEPENDENCE, CIGARETTES, UNCOMPL 03/01/2018 GILBERT GOMEZ MD Ot I10 ESSENTIAL (PRIMARY) HYPERTENSION 03/01/2018 GILBERT GOMEZ MD Ot Z79.02 SHELTER (CURRENT) USE OF ANTITHROMBOTI 03/01/2018 GILBERT GOMEZ MD Ot Z79.82 SHELTER (CURRENT) USE OF ASPIRIN 03/01/2018 GILBERT GOMEZ MD Ot R42 DIZZINESS AND GIDDINESS 03/01/2018 GILBERT GOMEZ MD Ot R51 HEADACHE 03/01/2018 IGOR ARANA MD Ot 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) THROMBOCYTHEMIA 03/01/2018 IGOR ARANA MD Ot D72.829 ELEVATED WHITE BLOOD CELL COUNT, UNSPECI 03/01/2018 IGOR ARANA MD Ot E78.5 HYPERLIPIDEMIA, UNSPECIFIED 03/01/2018 IGOR ARANA MD Ot I10 ESSENTIAL (PRIMARY) HYPERTENSION 03/01/2018 IGOR ARANA MD Ot 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 03/01/2018 IGOR ARANA MD Ot I69.998 OTHER SEQUELAE FOLLOWING UNSPECIFIED CER 03/01/2018 IGOR ARANA MD Ot M62.81 MUSCLE WEAKNESS (GENERALIZED) 03/01/2018 IGOR ARANA MD Ot R00.0 TACHYCARDIA, UNSPECIFIED 03/01/2018 IGOR ARANA MD Ot Z79.899 OTHER SHELTER (CURRENT) DRUG THERAPY 03/01/2018 MIRELLA MCMILLAN APRN Ot J43.8 OTHER EMPHYSEMA 03/01/2018 MIRELLA MCMILLAN APRN Ot R91.1 SOLITARY PULMONARY NODULE 03/01/2018 MIRELLA MCMILLAN APRN Ot Z72.0 TOBACCO USE 03/01/2018 MIRELLA MCMILLAN APRN Ot J30.2 OTHER SEASONAL ALLERGIC RHINITIS 03/01/2018 MIRELLA MCMILLAN APRN Ot J44.9 CHRONIC OBSTRUCTIVE PULMONARY DISEASE, U 03/01/2018 MIRELLA MCMILLAN APRN Ot R91.1 SOLITARY PULMONARY NODULE 03/01/2018 MIRELLA MCMILLAN APRN Ot R91.8 OTHER NONSPECIFIC ABNORMAL FINDING OF GIOVANNA 03/01/2018 MIRELLA MCMILLAN APRN Ot Z72.0 TOBACCO USE 03/01/2018 SOTERO HUIZAR FLEXIBLE NANNY Ot K43.9 VENTRAL HERNIA WITHOUT OBSTRUCTION OR GA 03/01/2018 SOTERO HUIZAR FLEXIBLE NANNY Ot R16.0 HEPATOMEGALY, NOT ELSEWHERE CLASSIFIED 03/01/2018 GERRY WRIGHT, YUKO J Ot I10 ESSENTIAL (PRIMARY) HYPERTENSION 03/01/2018 GERRY WRIGHT, YUKO J Ot J44.9 CHRONIC OBSTRUCTIVE PULMONARY DISEASE, U 03/01/2018 GERRY WRIGHT, BASARTHUR J Ot K21.9 GASTRO-ESOPHAGEAL REFLUX DISEASE WITHOUT 03/01/2018 GERRY WRIGHT, BASHAR J Ot R07.9 CHEST PAIN, UNSPECIFIED 03/01/2018 GERRY WRIGHT, BASHAR J Ot I10 ESSENTIAL (PRIMARY) HYPERTENSION 03/01/2018 GERRY WRIGHT, BASARTHUR J Ot J44.9 CHRONIC OBSTRUCTIVE PULMONARY DISEASE, U 03/01/2018 GERRY WRIGHT, YUKO J Ot K21.9 GASTRO-ESOPHAGEAL REFLUX DISEASE WITHOUT 03/01/2018 GERRY WRIGHT, YUKO J Ot R07.9 CHEST PAIN, UNSPECIFIED 03/01/2018 SOTERO HUIZAR FLEXIBLE NANNY Ot I70.0 ATHEROSCLEROSIS OF [place]ORT[place] 03/01/2018 SOTERO HUIZAR FLEXIBLE NANNY Ot I70.90 UNSPECIFIED ATHEROSCLEROSIS 03/01/2018 SOTERO HUIZAR FLEXIBLE NANNY Ot K43.9 VENTRAL HERNIA WITHOUT OBSTRUCTION OR GA 03/01/2018 SOTERO HUIZAR FLEXIBLE NANNY Ot K76.0 FATTY (CHANGE OF) LIVER, NOT ELSEWHERE C 03/01/2018 SOTERO HUIZAR FLEXIBLE NANNY Ot N39.0 URINARY TRACT INFECTION, SITE NOT SPECIF 03/01/2018 SILVIA SPENCER DO Ot K76.0 FATTY (CHANGE OF) LIVER, NOT ELSEWHERE C 03/01/2018 PASTOR CISNEROS MD Ot 723.1 CERVICALGIA 03/01/2018 AMELIA WRIGHT, PASTOR Blank Ot 729.5 PAIN IN LIMB 03/01/2018 PASTOR CISNEROS MD Ot 719.40 JOINT PAIN-UNSPEC 03/01/2018 PASTOR CISNEROS MD Ot 780.79 OTH MALAISE FATIGUE 03/01/2018 PASTOR CISNEROS MD Ot 782.3 EDEMA 03/01/2018 PASTOR CISNEROS MD Ot 785.0 TACHYCARDIA NOS 03/01/2018 PASTOR CISNEROS MD Ot 719.40 JOINT PAIN-UNSPEC 03/01/2018 PASTOR CISNEROS MD J Ot 780.79 OTH MALAISE FATIGUE 03/01/2018 AMELIA WRIGHT, PASTOR Blank Ot 782.3 EDEMA 03/01/2018 AMELIA WRIGHT, PASTOR Blank Ot 785.0 TACHYCARDIA NOS 03/01/2018 AMELIA WRIGHT, PASTOR Blank Ot 305.1 TOBACCO USE DISORDER 03/01/2018 PASTOR CISNEROS MD Ot 401.9 HYPERTENSION NOS 03/01/2018 AMELIA WRIGHT, PASTOR Blank Ot 428.0 CONGESTIVE HEART FAILURE NOS 03/01/2018 PASTOR CISNEROS MD Ot 782.3 EDEMA 03/01/2018 AMELIA WRIGHT, PASTOR Blank Ot 785.0 TACHYCARDIA NOS 03/01/2018 AMELIA WRIGHT, PASTOR Blank Ot 786.50 CHEST PAIN NOS 03/01/2018 TRISTAN WRIGHT, SULEMA Ot 397.0 TRICUSPID VALVE DISEASE 03/01/2018 TRISTAN WRIGHT, ADINAELAN Ot 401.9 HYPERTENSION NOS 03/01/2018 TRISTAN WRIGHT, ADINAELAN Ot 424.0 MITRAL VALVE DISORDER 03/01/2018 TRISTAN WRIGHT, SULEMA Ot 786.50 CHEST PAIN NOS 03/01/2018 TRISTAN WRIGHT, JABRUNOSEELAN Ot 401.9 HYPERTENSION NOS 03/01/2018 TRISTAN WRIGHT, JABRUNOSEELAN Ot 786.50 CHEST PAIN NOS 03/01/2018 AMELIA WRIGHT, PASTOR Blank Ot 251.2 HYPOGLYCEMIA NOS 03/01/2018 AMELIA WRIGHT, PASTOR Blank Ot 790.29 OTHER ABNORMAL GLUCOSE 03/01/2018 AMELIA WRIGHT, PASTOR Blank Ot 780.39 OTHER CONVULSIONS 03/01/2018 AMELIA WRIGHT, PASTOR Blank Ot 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 03/01/2018 AMELIA WRIGHT, PASTOR Blank Ot 780.97 ALTERED MENTAL STATUS 03/01/2018 AMELIA WRIGHT, PASTOR Blank Ot 781.99 NERV/MUSCULOSKEL SYS SYMP NEC 03/01/2018 PASTOR CISNEROS MD Ot 530.81 ESOPHAGEAL REFLUX 03/01/2018 PASTOR CISNEROS MD Ot 553.3 DIAPHRAGMATIC HERNIA 03/01/2018 PASTOR CISNEROS MD Ot 787.20 DYSPHAGIA, UNSPECIFIED 03/01/2018 GERRY WRIGHT, YUKO Blank Ot 401.9 HYPERTENSION NOS 03/01/2018 YUKO GARRETT MD Ot 785.0 TACHYCARDIA NOS 03/01/2018 YUKO GARRETT MD J Ot 785.1 PALPITATIONS 03/01/2018 YUKO GARRETT MD Ot 786.05 SHORTNESS OF BREATH 03/01/2018 JACOB NEWSOME MD Ot 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 03/01/2018 JACOB NEWSOME MD Ot 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 03/01/2018 JACOB NEWSOME MD Ot 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 03/01/2018 JACOB NEWSOME MD Ot 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 03/01/2018 YUKO GARRETT MD Ot I10 ESSENTIAL (PRIMARY) HYPERTENSION 03/01/2018 YUKO GARRETT MD Ot R00.2 PALPITATIONS 03/01/2018 YUKO GARRETT MD Ot R06.02 SHORTNESS OF BREATH 03/01/2018 YUKO GARRETT MD Ot R07.89 OTHER CHEST PAIN 03/01/2018 PASTOR CISNEROS MD Ot E11.9 TYPE 2 DIABETES MELLITUS WITHOUT COMPLIC 03/01/2018 PASTOR CISNEROS MD Ot Z79.4 NEW BUSINESS CLERK (CURRENT) USE OF INSULIN 03/01/2018 PASTOR CISNEROS MD Ot E11.9 TYPE 2 DIABETES MELLITUS WITHOUT COMPLIC 03/01/2018 PASTOR CISNEROS MD Ot E66.9 OBESITY, UNSPECIFIED 03/01/2018 PASTOR CISNEROS MD Ot I73.9 PERIPHERAL VASCULAR DISEASE, UNSPECIFIED 03/01/2018 PASTOR CISNEROS MD Ot Z86.73 PRSNL HX OF TIA (TIA), AND CEREB INFRC W 03/01/2018 PASTOR CISNEROS MD Ot E11.9 TYPE 2 DIABETES MELLITUS WITHOUT COMPLIC 03/01/2018 PASTOR CISNEROS MD Ot M79.662 PAIN IN LEFT LOWER LEG 03/01/2018 PASTOR CISNEROS MD Ot R51 HEADACHE 03/01/2018 GILBERT GOMEZ MD Ot 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) THROMBOCYTHEMIA 03/01/2018 IGLBERT GOMEZ MD Ot D68.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 03/01/2018 GILBERT GOMEZ MD Ot D72.829 ELEVATED WHITE BLOOD CELL COUNT, UNSPECI 03/01/2018 GILBERT GOMEZ MD Ot E78.5 HYPERLIPIDEMIA, UNSPECIFIED 03/01/2018 GILBERT GOMEZ MD Ot F17.210 NICOTINE DEPENDENCE, CIGARETTES, UNCOMPL 03/01/2018 GILBERT GOMEZ MD Ot I10 ESSENTIAL (PRIMARY) HYPERTENSION 03/01/2018 GILBERT GOMEZ MD Ot Z79.02 SHELTER (CURRENT) USE OF ANTITHROMBOTI 03/01/2018 GILBERT GOMEZ MD Ot Z79.82 SHELTER (CURRENT) USE OF ASPIRIN 03/01/2018 GILBERT GOMEZ MD Ot R42 DIZZINESS AND GIDDINESS 03/01/2018 GILBERT GOMEZ MD Ot R51 HEADACHE 03/01/2018 IGOR ARANA MD, Ot 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) THROMBOCYTHEMIA 03/01/2018 IGOR ARANA MD Ot D72.829 ELEVATED WHITE BLOOD CELL COUNT, UNSPECI 03/01/2018 IGOR ARANA MD Ot E78.5 HYPERLIPIDEMIA, UNSPECIFIED 03/01/2018 IGOR ARANA MD, Ot I10 ESSENTIAL (PRIMARY) HYPERTENSION 03/01/2018 IGOR ARANA MD Ot 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 03/01/2018 IGOR ARANA MD Ot I69.998 OTHER SEQUELAE FOLLOWING UNSPECIFIED CER 03/01/2018 IGOR ARANA MD Ot M62.81 MUSCLE WEAKNESS (GENERALIZED) 03/01/2018 IGOR ARANA MD Ot R00.0 TACHYCARDIA, UNSPECIFIED 03/01/2018 IGOR ARANA MD Ot Z79.899 OTHER NEW BUSINESS CLERK (CURRENT) DRUG THERAPY 03/01/2018 MIRELLA MCMILLAN APRN Ot J43.8 OTHER EMPHYSEMA 03/01/2018 MIRELLA MCMILLAN APRN Ot R91.1 SOLITARY PULMONARY NODULE 03/01/2018 MIRELLA MCMILLAN APRN Ot Z72.0 TOBACCO USE 03/01/2018 MIRELLA MCMILLAN APRN Ot J30.2 OTHER SEASONAL ALLERGIC RHINITIS 03/01/2018 MIRELLA MCMILLAN APRN Ot J44.9 CHRONIC OBSTRUCTIVE PULMONARY DISEASE, U 03/01/2018 MIRELLA MCMILLAN APRN Ot R91.1 SOLITARY PULMONARY NODULE 03/01/2018 MIRELLA MCMILLAN APRN Ot R91.8 OTHER NONSPECIFIC ABNORMAL FINDING OF GIOVANNA 03/01/2018 MIRELLA MCMILLAN APRN Ot Z72.0 TOBACCO USE 03/01/2018 SOTERO HUIZAR APRN Ot K43.9 VENTRAL HERNIA WITHOUT OBSTRUCTION OR GA 03/01/2018 SOTREO HUIZAR APRN Ot R16.0 HEPATOMEGALY, NOT ELSEWHERE CLASSIFIED 03/01/2018 GERRY WRIGHT, BASHAR J Ot I10 ESSENTIAL (PRIMARY) HYPERTENSION 03/01/2018 GERRY WRIGHT, YUKO Blank Ot J44.9 CHRONIC OBSTRUCTIVE PULMONARY DISEASE, U 03/01/2018 GERRY WRIGHT, YUKO Blank Ot K21.9 GASTRO-ESOPHAGEAL REFLUX DISEASE WITHOUT 03/01/2018 GERRY WRIGHT, YUKO Blank Ot R07.9 CHEST PAIN, UNSPECIFIED 03/01/2018 GERRY WRIGHT, YUKO J Ot I10 ESSENTIAL (PRIMARY) HYPERTENSION 03/01/2018 GERRY WRIGHT, YUKO Blank Ot J44.9 CHRONIC OBSTRUCTIVE PULMONARY DISEASE, U 03/01/2018 GERRY WRIGHT, YUKO Blank Ot K21.9 GASTRO-ESOPHAGEAL REFLUX DISEASE WITHOUT 03/01/2018 GERRY WRIGHT, YUKO Blank Ot R07.9 CHEST PAIN, UNSPECIFIED 03/01/2018 SOTERO HUIZAR FLEXIBLE NANNY Ot I70.0 ATHEROSCLEROSIS OF AORTA 03/01/2018 SOTERO HUIZAR FLEXIBLE NANNY Ot I70.90 UNSPECIFIED ATHEROSCLEROSIS 03/01/2018 SOTERO HUIZAR FLEXIBLE NANNY Ot K43.9 VENTRAL HERNIA WITHOUT OBSTRUCTION OR GA 03/01/2018 SOTERO HUIZAR FLEXIBLE NANNY Ot K76.0 FATTY (CHANGE OF) LIVER, NOT ELSEWHERE C 03/01/2018 SOTERO HUIZAR FLEXIBLE NANNY Ot N39.0 URINARY TRACT INFECTION, SITE NOT SPECIF 03/01/2018 SILVIA SPENCER DO Ot K76.0 FATTY (CHANGE OF) LIVER, NOT ELSEWHERE C 03/02/2018 RENY MEJIA Ot E11.9 TYPE 2 DIABETES MELLITUS WITHOUT COMPLIC 03/02/2018 ROB MEJIAIS Ot E78.00 PURE HYPERCHOLESTEROLEMIA, UNSPECIFIED 03/02/2018 ROB MEJIAIS Ot F41.9 ANXIETY DISORDER, UNSPECIFIED 03/02/2018 BERNOT RENY Ot G43.909 MIGRAINE, UNSP, NOT INTRACTABLE, WITHOUT 03/02/2018 BERNOT, RNEY Ot I10 ESSENTIAL (PRIMARY) HYPERTENSION 03/02/2018 ROB MEJIAIS Ot K21.9 GASTRO-ESOPHAGEAL REFLUX DISEASE WITHOUT 03/02/2018 BERNOTROBIS Ot L29.9 PRURITUS, UNSPECIFIED 03/02/2018 ROB MEJIAIS Ot L53.9 ERYTHEMATOUS CONDITION, UNSPECIFIED 03/02/2018 ROB MEJIAIS Ot T80.89XA OTH COMP FOL INFUSION, TRANSFUSE AND THE 03/02/2018 RENY MEJIA Ot Z77.22 CNTCT W AND EXPSR TO ENVIRON TOBACCO SMO 03/02/2018 RENY MEJIA Ot Z79.02 SHELTER (CURRENT) USE OF ANTITHROMBOTI 03/02/2018 ROB MEJIAIS Ot Z79.82 NEW BUSINESS CLERK (CURRENT) USE OF ASPIRIN 03/02/2018 ROB MEJIAIS Ot Z80.0 FAMILY HISTORY OF MALIGNANT NEOPLASM OF 03/02/2018 ROB MEJIAIS Ot Z82.49 FAMILY HX OF ISCHEM HEART DIS AND OTH DI 03/02/2018 RENY MEJIA Ot Z86.73 PRSNL HX OF TIA (TIA), AND CEREB INFRC W 03/02/2018 RENY MEJIA Ot Z87.19 PERSONAL HISTORY OF OTHER DISEASES OF TH 03/02/2018 RENY MEJIA Ot Z87.440 PERSONAL HISTORY OF URINARY (TRACT) INFE 03/02/2018 ROB MEJIAIS Ot Z87.448 PERSONAL HISTORY OF OTHER DISEASES OF UR 03/02/2018 ROB MEJIAIS Ot Z88.0 ALLERGY STATUS TO PENICILLIN 03/02/2018 ROB MEJIAIS Ot Z88.5 ALLERGY STATUS TO NARCOTIC AGENT STATUS 03/02/2018 ROB MEJIAIS Ot Z88.8 ALLERGY STATUS TO OTH DRUG/MEDS/BIOL SUB 03/02/2018 ROB MEJIAIS Ot Z98.51 TUBAL LIGATION STATUS 03/02/2018 ROB MEJIAIS Ot Z98.890 OTHER SPECIFIED POSTPROCEDURAL STATES 03/10/2018 SOTERO HUIZAR FLEXIBLE NANNY Ot I70.0 ATHEROSCLEROSIS OF AORTA 03/10/2018 SOTERO HUIZAR FLEXIBLE NANNY Ot I70.90 UNSPECIFIED ATHEROSCLEROSIS 03/10/2018 SOTERO HUIZAR FLEXIBLE NANNY Ot K43.9 VENTRAL HERNIA WITHOUT OBSTRUCTION OR GA 03/10/2018 SOTERO HUIZAR FLEXIBLE NANNY Ot K76.0 FATTY (CHANGE OF) LIVER, NOT ELSEWHERE C 03/10/2018 SOTERO HUIZAR APRN Ot N39.0 URINARY TRACT [...] Vitamin D, 25-Hydroxy 7.8 ng/mL 30.0-100.0 Thyroid [place] Profile - 03/16/16 11:24 TSH 1.490 uIU/mL [...] culture - 08/16/16 15:00 Bacterial urine culture [id number] NRG COLONY COUNT 10,000/ML - 100,000/ML NRG [...] INFLUENZA A AND B ANTIGENS BY IA NR Complete blood count (CBC) with automated [...] 10.8 fL 7.5-12.5 ABSOLUTE NEUTROPHILS 7155 cells/uL 5709-3033 ABSOLUTE LYMPHOCYTES 4211 cells/uL 850-3900 ABSOLUTE MONOCYTES [...] rickettsii IgG antibody assay (units/volume) < <1:16 Alicia spotted fever panel < <1:10 Francisella tularensis [...] 11.1 fL 7.5-12.5 ABSOLUTE NEUTROPHILS 7358 cells/uL 7410-9366 ABSOLUTE LYMPHOCYTES 2912 cells/uL 850-3900 ABSOLUTE MONOCYTES [...] urinalysis with reflex to culture NO NRG CULTURE, URINE - 03/04/18 08:17 CULTURE, URINE, ROUTINE SEE NOTE NRG Encounters ACCT No. Visit Date/Time Discharge Status Pt. Type Provider Facility Loc./Unit Complaint [id number] 02/24/2018 21:21:00 02/24/2018 22:29:00 DIS Outpatient RENY MEJIA [facility] ER REDNESS AT INSULIN SHOT SITE [id number] 02/02/2018 19:35:00 02/02/2018 21:29:00 DIS Emergency PRISCILLA HUNT [facility] ER SORE THROAT [id number] 01/27/2018 14:53:00 01/27/2018 23:59:59 CLS Outpatient SILVIA SPENCER DO [facility] RAD LT QUAD ABD PAIN [id number] 01/23/2018 15:52:00 01/23/2018 18:23:00 DIS Emergency RENY MEJIA [facility] ER TREATED FOR C-DIFF/ DIARRHEA/ABD AND RECTAL PAIN [id number] 12/19/2017 08:22:00 12/19/2017 23:59:59 CLS Preadmit YASMEEN WRIGHT, IGOR [facility] ONC [id number] 12/07/2017 16:31:00 12/07/2017 18:45:00 DIS Emergency MAGDA MARTINEZP [facility] ER DIZZINESS/NAUSEA [id number] 12/05/2017 15:42:00 12/05/2017 23:59:59 CLS Outpatient HUIZAR SOTERO [place]ito FLEXIBLE NANNY [facility] RAD FLANK PAIN [id number] 11/24/2017 16:54:00 11/24/2017 18:08:00 DIS Emergency THELMA FARAH APRN [facility] ER DIZZINESS;NAUSEA;TICK BITE [id number] 11/04/2017 08:02:00 11/04/2017 09:00:00 DIS Emergency BILLY GOLD MD [facility] ER HURTS WHEN URINATING [id number] 09/30/2017 12:57:00 09/30/2017 23:59:59 CLS Outpatient YUKO GARRETT MD [facility] CARD CHEST PAIN SYNDROME,GERD ,HTN,COPD [id number] 09/19/2017 13:29:00 09/19/2017 23:59:59 CLS Outpatient YUKO GARRETT MD [facility] CARD CHEST PAIN SYNDROME,GERD ,HTN,COPD [id number] 09/19/2017 13:11:00 09/19/2017 23:59:59 CLS Preadmit YUKO GARRETT MD [facility] CARD CHEST PAIN SYNDROME,GERD ,HTN,COPD [id number] 09/15/2017 09:16:00 09/15/2017 12:28:00 DIS Emergency JULEINNE CLEVELAND MD [facility] ER CP,STRAIN IN BACK,SOB [id number] 08/16/2017 20:47:00 08/16/2017 21:52:00 DIS Emergency THELMA FARAH APRN [facility] ER RUSSELL;NECK PAIN [id number] 06/23/2017 06:43:00 06/23/2017 23:59:59 CLS Outpatient SOTERO HUIZAR FLEXIBLE NANNY [facility] RAD RUQ PAIN [id number] 04/28/2017 09:51:00 04/28/2017 23:59:59 CLS Outpatient MIRELLA MCMILLAN FLEXIBLE NANNY [facility] RAD R91.1,Z72.0 [id number] 04/27/2017 09:42:00 04/27/2017 23:59:59 CLS Outpatient MIRELLA MCMILLAN FLEXIBLE NANNY [facility] RT I44.9 COPD [id number] 04/16/2017 22:16:00 04/17/2017 01:15:00 DIS Emergency RICHARD WRIGHT, GWEN Blank [facility] ER CHEST PAIN AND BACK PAIN FROM DRY COUGH [id number] 04/05/2017 09:16:00 04/05/2017 23:59:59 CLS Outpatient MIRELLA MCMILLAN FLEXIBLE NANNY [facility] RAD R91.1 LUNG NODULE [id number] 03/29/2017 10:15:00 03/29/2017 23:59:59 CLS Preadmit SOTERO HUIZAR FLEXIBLE NANNY [facility] RAD LUNG NODULE INCREASING IN SIZE [id number] 03/21/2017 00:21:00 03/21/2017 23:59:59 CLS Preadmit IGOR ARANA MD [facility] ONC [id number] 12/20/2016 15:01:00 03/20/2017 00:01:00 DIS Outpatient YASMEEN WRIGHT, IGOR [facility] ONC [id number] 03/12/2017 12:32:00 03/12/2017 16:27:00 DIS Emergency PRISCILLA HUNT [facility] ER ABD PAIN, SHAKY, 4 PREVIOUS BRAIN-STEM FLORES [id number] 11/09/2016 20:08:00 11/09/2016 23:58:00 DIS Emergency NATHAN WRIGHT, AKBAR Solis [facility] ER DIZZINESS,NAUSEA [id number] 06/29/2016 15:16:00 09/12/2016 00:01:00 DIS Outpatient GILBERT GOMEZ MD [facility] ONC [id number] 08/16/2016 13:54:00 08/16/2016 16:50:00 DIS Emergency PRISCILLA HUNT [facility] ER UTI [id number] 07/02/2016 10:14:00 07/02/2016 23:59:59 CLS Outpatient GILBERT GOMEZ MD [facility] RAD HEADACHE,DIZZINESS [id number] 12/18/2015 09:01:00 03/17/2016 00:01:00 DIS Outpatient GILBERT GOMEZ MD [facility] ONC [id number] 09/18/2015 12:52:00 10/29/2015 00:01:00 DIS Outpatient GILBERT GOMEZ MD [facility] ONC [id number] 09/12/2015 20:37:00 2015 01:00:00 DIS Emergency JOSE ADLER DO [facility] ER DIZZINESS [id number] 09/10/2015 01:28:00 09/10/2015 03:57:00 DIS Emergency AKBAR EVANS MD [facility] ER RUSSELL,BLURRY EYES,BLOOD SUGAR HIGH,DIZZY [id number] 07/24/2015 09:02:00 07/24/2015 23:59:59 CLS Outpatient GILBERT GOMEZ MD [facility] ONC [id number] 05/23/2015 23:06:00 05/24/2015 00:31:00 DIS Emergency RONAN SOTO MD [facility] ER FULL BODY TINGLING/ NUMBNESS [id number] 05/22/2015 13:58:00 05/22/2015 16:11:00 DIS Emergency THELMA FAARH APRN [facility] ER DIZZINESS LIPS NUMBNESS [id number] 04/28/2015 11:14:00 04/28/2015 23:59:59 CLS Outpatient PASTOR CISNEROS MD [facility] RAD CALF PAIN,HEADACHES, DIABETES [id number] 03/28/2015 22:08:00 03/28/2015 23:59:59 CLS Emergency JOSE ADLER DO [facility] ER DIZZINESS,FACIAL NUMBNESS [id number] 03/24/2015 10:00:00 03/24/2015 23:59:59 [facility]read[facility] [id number] 12/23/2014 17:00:00 03/23/2015 00:01:00 DIS Outpatient [facility] [id number] 03/21/2015 10:24:00 03/21/2015 23:59:59 CLS Outpatient PASTOR CISNEROS MD [facility] LAB TYPE 2 DIABETES INSULIN DEPENDENT [id number] 01/15/2015 08:11:00 01/15/2015 23:59:59 CLS Outpatient YUKO GARRETT MD [facility] CARD CPS,HTN,PALPITATIONS, SOB [id number] 12/02/2014 10:00:00 12/18/2014 00:01:00 DIS Out[facility] [id number] 07/25/2014 08:49:00 10/23/2014 00:01:00 DIS Outpatient GILBERT GOMEZ MD [facility] ONC [id number] 08/27/2014 15:20:00 08/27/2014 23:59:59 CLS Outpatient JACOB NEWSOME MD [facility] RAD FOLLOW UP PER RADIOLOGIST [id number] 08/26/2014 12:47:00 08/26/2014 23:59:59 CLS Outpatient JACOB NEWSOME MD [facility] RAD CEREBRAL ATHEROSCLEROSIS [id number] 07/23/2014 20:00:00 07/23/2014 23:59:59 CLS Preadmit YUKO GARRETT MD [facility] SLEEP SNORING,HTN,HX OF STROKE [id number] 07/18/2014 11:36:00 07/18/2014 15:39:00 DIS Emergency AKBAR EVANS MD [facility] ER DIZZINESS,NAUSEA [id number] 06/17/2014 08:15:00 06/17/2014 23:59:59 CLS Outpatient YUKO GARRETT MD [facility] CARD PALPITATIONS SOB HTN [id number] 01/24/2014 08:49:00 04/24/2014 00:01:00 DIS Outpatient GILBERT GOMEZ MD [facility] ONC [id number] 02/13/2014 10:00:00 03/29/2014 16:22:00 DIS Outpatient PASTOR CISNEROS MD [facility] REHAB CVA [id number] 11/22/2013 09:41:00 01/14/2014 00:01:00 DIS Outpatient PASTOR CISNEROS MD [facility] REHAB CVA [id number] 10/25/2013 10:49:00 01/09/2014 00:01:00 DIS Outpatient GILBERT GOMEZ MD [facility] ONC [id number] 12/18/2013 09:18:00 12/18/2013 23:59:59 CLS Outpatient PASTOR CISNEROS MD [facility] RAD CHOKING,TROUBLE SWALLOWING [id number] 12/14/2013 19:01:00 12/14/2013 20:23:00 DIS Emergency BRITTANY WRIGHT, RONAN A [facility] ER CONGESTION [id number] 10/04/2013 13:16:00 10/04/2013 23:59:59 CLS Outpatient PASTOR CISNEROS MD [facility] RAD NEUROLOGICAL CHANGES, RECENT STROKE [id number] 09/24/2013 18:13:00 09/28/2013 13:30:00 DIS Inpatient MICHELLE WRIGHT, SILVIA E [facility] IRF CVA [id number] 09/15/2013 14:10:00 09/18/2013 12:35:00 DIS Outpatient PASTOR CISNEROS MD [facility] SDC VERTIGO [id number] 09/07/2013 08:36:00 09/07/2013 23:59:59 CLS Outpatient PASTOR CISNEROS MD [facility] RT SEIZURE TYPE ACTIVITY [id number] 07/03/2013 12:37:00 07/03/2013 23:59:59 CLS Outpatient SULEMA HUDSON MD [facility] CARD CP,HTN [id number] 06/20/2013 08:30:00 06/20/2013 23:59:59 CLS Outpatient PASTOR CISNEROS MD [facility] LAB HYPOGLYCEMIA,FLUXUATING BLOOD SUGAR [id number] 06/08/2013 09:00:00 06/08/2013 23:59:59 CLS Outpatient TRISTAN WRIGHT, SULEMA [facility] CARD CP,HTN [id number] 05/21/2013 14:03:00 05/21/2013 23:59:59 CLS Outpatient PASTOR CISNEROS MD [facility] CARD HYPERTENSION,PERIPHERD EDEMA,SMOKER,CARDIMEGALY,CH [id number] 05/17/2013 21:44:00 05/17/2013 23:59:59 CLS Outpatient PASTOR CISNEROS MD [facility] LAB LIPID PANEL [id number] 05/17/2013 12:24:00 05/17/2013 23:59:59 CLS Outpatient PASTOR CISNEROS MD [facility] LAB EDEMA,FATIGUE,TACHYCARDIA ,JOINT PAIN [id number] 02/02/2013 14:11:00 02/23/2013 10:40:00 DIS Outpatient PASTOR CISNEROS MD [facility] REHAB NECK PAIN, UPPER BACK PAIN RADIATING LEFT SHOULDER [id number] 10/31/2012 14:21:00 10/31/2012 23:59:59 CLS Outpatient PASTOR CISNEROS MD [facility] RAD NECK PAIN,TENDERNESS RADIATING FROM ARM TO BACK OF [id number] 09/04/2012 08:56:00 09/04/2012 23:59:59 CLS Outpatient PASTOR CISNEROS MD [facility] RAD ABD PAIN,BLOATING R. SIDED FIRMNESS [id number] 09/01/2012 09:16:00 09/01/2012 10:45:00 DIS Outpatient PASTOR CISNEROS MD [facility] ABNORMAL MRI OF BRAIN; MULTIPLE SCLEROSIS [id number] 07/18/2012 08:50:00 07/18/2012 23:59:59 CLS Outpatient PASTOR CISNEROS MD [facility] RAD FOLLOW UP ABD MRI [id number] 11/04/2017 08:48:00 Document Registration [id number] 08/26/2014 12:46:00 Document Registration [id number] 05/19/2014 09:39:00 Document Registration [id number] 05/11/2014 19:49:00 Document Registration [id number] 06/26/2012 11:26:00 Document Registration [id number] 05/19/2012 09:58:00 Document Registration [id number] 04/20/2012 12:51:00 Document Registration [id number] 01/04/2012 12:04:00 Document Registration [id number] 12/31/2011 08:48:00 Document Registration [id number] 11/22/2011 22:34:00 Document Registration [id number] 10/08/2011 22:58:00 Document Registration [id number] 10/07/2011 13:12:00 Document Registration [id number] 07/26/2011 14:37:00 Document Registration [id number] 04/05/2011 08:01:00 Document Registration [id number] 02/03/2011 11:11:00 Document Registration [id number] 02/01/2011 11:54:00 Document Registration [id number] 12/08/2010 08:13:00 Document Registration [id number] 08/25/2009 10:44:00 Document Registration [id number] 03/17/2016 18:05:00 Document Registration [id number] 09/15/2016 17:09:00 Document Registration [id number] 03/04/2018 12:00:00 03/04/2018 23:59:59 [facility] [id number] 03/04/2018 12:00:00 Document Registration [id number] 01/03/2018 09:00:00 Document Registration [id number] 12/13/2017 16:00:00 Document Registration [id number] 11/01/2017 11:00:00 Document Registration [id number] 09/23/2017 09:40:00 Document Registration [id number] 08/26/2017 11:20:00 Document Registration [id number] 08/19/2017 16:05:00 Document Registration [id number] 08/02/2017 08:20:00 Document Registration [id number] 06/23/2017 16:40:00 Document Registration [id number] 06/17/2017 14:40:00 Document Registration [id number] 05/11/2017 14:45:00 Document Registration [id number] 01/06/2017 14:00:00 Document Registration [id number] 01/07/2017 07:05:00 Document Registration [id number] 07/28/2016 19:07:00 Document Registration
--- NOTE | 2018-03-13 13:04 | Diagnostic Imaging Report ---
CHEST PA/LAT (2 VIEW) Indication: Productive cough Comparison: 02/02/2018 Findings: No focal pneumonic consolidation, pleural effusion or pneumothorax. Normal heart size and pulmonary vasculature. Impression: No acute cardiopulmonary process. Dictated by: Dictated on workstation # [id number]
== END 2018-03-13 12:14 | disposition home or self-care (01) ==
LOC: EDUNIT# 11:53 → ER 11:54
DX: J40 Bronchitis, not specified as acute or chronic (principal); E78.00 Pure hypercholesterolemia, unspecified; I10 Essential (primary) hypertension; G43.909 Migraine, unspecified, not intractable, without status migrainosus; K21.9 Gastro-esophageal reflux disease without esophagitis; E11.9 Type 2 diabetes mellitus without complications; F41.9 Anxiety disorder, unspecified; Z87.19 Personal history of other diseases of the digestive system; Z80.0 Family history of malignant neoplasm of digestive organs; Z82.49 Family history of ischemic heart disease and other diseases of the circulatory system; Z87.440 Personal history of urinary (tract) infections; Z87.448 Personal history of other diseases of urinary system; Z86.73 Personal history of transient ischemic attack (TIA), and cerebral infarction without residual deficits; Z88.0 Allergy status to penicillin; Z88.5 Allergy status to narcotic agent; Z88.8 Allergy status to other drugs, medicaments and biological substances; Z79.82 Long term (current) use of aspirin; Z79.02 Long term (current) use of antithrombotics/antiplatelets; Z77.22 Contact with and (suspected) exposure to environmental tobacco smoke (acute) (chronic); Z98.51 Tubal ligation status; Z98.890 Other specified postprocedural states
CPT/HCPCS: 71046

== ENCOUNTER 2018-03-18 08:50 | Emergency (ER) | payer MEDICARE, MEDICAID ==
[~2018-03-18] VITALS: Ht 160 cm; Wt 81.6 kg
[~2018-03-18 08:50] MED LIST changes: +CEPH-507 PO; +D-ME118S7 PO
[2018-03-18] MEDS ORDERED: NS IV 1000 ML 1,000 ML IV ONE (09:15)
[2018-03-18 09:21] LABS: CLARITY,URINE BLOODY; COLOR,URINE RED; GLUCOSE, URINE (UA) NEGATIVE (NEGATIVE); KETONES,URINE NEGATIVE (NEGATIVE); LEUKOCYTE ESTERASE ,URINE NEGATIVE (NEGATIVE); NITRITE,URINE POSITIVE (NEGATIVE); PH,URINE 6.5 (5-9); PROTEIN,URINE 3+ (NEGATIVE); UROBILINOGEN,URINE 8 MG/DL (NORMAL)
[2018-03-18 09:30] LABS: BACTERIA,URINE FEW /HPF; BILIRUBIN,URINE 3+ (NEGATIVE); RBC,URINE >100 /HPF; WBC,URINE >100 /HPF
[2018-03-18 09:57] LABS: BASOPHILS % (AUTO) 0 % (0-10); EOSINOPHILS # (AUTO) 0.2 10^3/uL (0.0-0.3); EOSINOPHILS % (AUTO) 1 % (0-10); HEMATOCRIT 44 % (35-52); HEMOGLOBIN 14.5 G/DL (11.5-16.0); LYMPHOCYTES # (AUTO) 3.5 X 10^3 (1.0-4.0); LYMPHOCYTES % (AUTO) 23 % (12-44); MEAN CORPUSCULAR HEMOGLOBIN 31 PG (25-34); MEAN CORPUSCULAR HGB CONC 33 G/DL (32-36); MEAN CORPUSCULAR VOLUME 92 FL (80-99); MONOCYTES # (AUTO) 0.8 X 10^3 (0.0-1.0); MONOCYTES % (AUTO) 5 % (0-12); NEUTROPHILS # (AUTO) 10.5 X 10^3 (1.8-7.8); NEUTROPHILS % (AUTO) 70 % (42-75); PLATELET COUNT 335 10^3/uL (130-400); RED BLOOD COUNT 4.76 10^6/uL (4.35-5.85); RED CELL DISTRIBUTION WIDTH 14.7 % (10.0-14.5); WHITE BLOOD COUNT 15.1 10^3/uL (4.3-11.0)
[2018-03-18 10:17] LABS: BAND NEUTROPHILS 5 %; BASOPHILS % (MANUAL) 0 %; EOSINOPHILS % (MANUAL) 0 %; LYMPHOCYTES % (MANUAL) 23 %; MONOCYTES % (MANUAL) 8 %; NEUTROPHILS % (MANUAL) 64 %; RBC MORPH NORMAL
[2018-03-18 10:18] LABS: ALANINE AMINOTRANSFERASE 48 U/L (0-55); ALBUMIN 3.9 GM/DL (3.2-4.5); ALKALINE PHOSPHATASE 120 U/L (40-136); BILIRUBIN,TOTAL 0.8 MG/DL (0.1-1.0); BUN/CREATININE RATIO 18; CALCIUM 9.5 MG/DL (8.5-10.1); CARBON DIOXIDE 24 MMOL/L (21-32); CHLORIDE 97 MMOL/L (98-107); CREATININE SERUM 0.68 MG/DL (0.60-1.30); GFR ESTIMATED > 60; GLUCOSE 248 MG/DL (70-105); POTASSIUM 3.4 MMOL/L (3.6-5.0); SODIUM 138 MMOL/L (135-145); TOTAL PROTEIN 7.4 GM/DL (6.4-8.2)
[2018-03-18] MEDS ORDERED: CIPROFLOXACIN IV 400MG/200ML 200 ML IV ONE (10:30)
--- NOTE | 2018-03-18 10:40 | ED Abdominal Pain ---
General Chief Complaint: -Female Stated Complaint: MULTIPLE COMPLAINTS Nursing Triage Note: Pt ambaulted to rm 7 w/o difficulty. Pt reports over and over, "I'm sick; I'm sick." Pt reports being seen in ED for bronchitis and was taking flagyl. Pt reports then having bloody/mucous stools and stopped the flagyl the second day. Pt reports then being seen here again for bronchitis. Pt reports being seen this week by Dr. Zaidi for a biopsy of the uterus. Pt reports having an infection of the endometrium and was prescribed cipro and flagyl every other day. Pt reports having an appt at [facility] for A1C check. Pt reports being told at that appt to not take the AB and wait to be seen by Dr. Julio next . Pt now reports UTI symptoms that began last night. Pt c/o frequency and burning. Pt reports taking pyridium. Pt also reports mucous and blood in BM today. Sepsis Screen: No Definite Risk Source of Information: Patient Exam Limitations: No Limitations History of Present Illness Date Seen by Provider: Mar 18, 2018 Time Seen by Provider: 08:55 Initial Comments This 47-year-old woman presents to the emergency room with multiple complaints but her primary complaint seems to be significant dysuria and presumption that she has a significant urinary tract infection. She is afebrile. She feels very uncomfortable when she urinates. She reports recently being treated for bronchitis with Keflex and prednisone. She was also prescribed Flagyl for C. difficile prophylaxis because she has a history of C. difficile. She reports developing mucousy stools with flecks of blood after starting the Keflex and Flagyl. Therefore she discontinued them. She is under the impression that Flagyl causes mucousy stools and blood in her stools. Patient reports she then saw Dr. Rose for dysfunctional uterine bleeding. She states he took endometrial biopsies and found "severe infection". She states he prescribed Cipro, and again Flagyl for prophylaxis. She states she then saw her primary care provider at [facility] who told her to not take Cipro because of C. difficile risk. She states that appointment was made to see Dr. Julio. In the meantime , her dysuria has worsened and she is feeling terrible. She is afebrile at this time. Allergies and Home Medications Allergies Coded Allergies: erythromycin base (Unverified Allergy, Mild, 11/11/08) Penicillins (Verified Allergy, Unknown, 11/14/08) codeine (Verified Allergy, Unknown, 11/14/08) nitrofurantoin (Verified Allergy, Unknown, 11/04/17) Home Medications Acetaminophen 325 Mg Tab, 650 MG PO Q4H PRN for mild pain or fever Prescribed by: ERNESTO SY on 09/28/13931 Alprazolam 0.25 Mg Tablet, 0.25 MG PO TID PRN for ANXIETY 1/2 or 1 every 8 hours as needed. Prescribed by: MAGDA MARTINEZ on 12/07/17 184 Aspirin 81 Mg Tablet.dr, 81 MG PO DAILY, (Reported) Atorvastatin Calcium 80 Mg Tablet, 80 MG PO HS Prescribed by: CELIA ISAACS on 09/24/131849 Benzonatate 100 Mg Capsule, 200 MG PO Q8H PRN for COUGH Prescribed by: PRISCILLA QUINN on 02/02/182101 Bisacodyl 10 Mg Supp, 10 MG TX DAILY PRN for CONSTIPATION Prescribed by: ERNESTO SY on 09/28/13931 Cefuroxime Axetil 250 Mg Tablet, 250 MG PO BID Prescribed by: THELMA FARAH on 11/24/17 180 Cephalexin 500 Mg Capsule, 500 MG PO TID Prescribed by: THELMA FARAH on 03/13/18 122 Clopidogrel Bisulfate 75 Mg Tablet, 1 EACH PO DAILY Prescribed by: CELIA ISAACS on 09/24/131849 D-Methorphan Hb/Prometh HCl 118 Ml Syrup, 5 ML PO Q6H PRN for COUGH Prescribed by: THELMA FARAH on 03/13/18 122 Diltiazem Hcl 30 Mg Tab, 30 MG PO Q8HR Prescribed by: ERNESTO SY on 09/28/13931 Doxycycline Hyclate 100 Mg Capsule, 100 MG PO BID Prescribed by: PRISCILLA QUINN on 02/02/182101 Hydrochlorothiazide 12.5 Mg Cap, 25 MG PO DAILY, (Reported) Hydrocodone Bit/Acetaminophen 1 Each Tablet, 1 EACH PO NEEDED, (Reported) Melatonin/Pyridoxine Hcl (B6) 1 Each Tab.mphase, 1 EACH PO HS, (Reported) Metoprolol Tartrate 25 Mg Tablet, 25 MG PO BID Prescribed by: ERNESTO SY on 7/11/14 0932 Metronidazole 500 Mg Tablet, 500 MG PO TID Prescribed by: PRISCILLA QUINN on 02/02/18 210 Metronidazole 500 Mg Tablet, 500 MG PO TID Prescribed by: THELMA FARAH on 03/13/18 1229 Nystatin 60 Ml Btl, 5 ML PO Q6H swish and swallow QID x5 days Prescribed by: THELMA FARAH on 05/11/142017 Omeprazole 40 Mg Capsule.dr, 40 MG PO DAILY, (Reported) Ondansetron 4 Mg Tab.rapdis, 4 MG SL Q4H PRN for NAUSEA/VOMITING Prescribed by: AKBAR BARROW on 09/10/15 0349 Ondansetron Hcl 4 Mg Tab, 4 MG SL Q4H FOR NAUSEA AND VOMITING Prescribed by: BLAIR DANIELS on 05/19/14 1128 Polyethylene Glycol 17 Gm Pack, 17 GM PO DAILY PRN for CONSTIPATION Prescribed by: CELIA ISAACS on 09/24/13 1850 Senna 1 Ea Tablet, 1 EA PO BID Prescribed by: ERNESTO SY on 09/28/13 0932 Patient Home Medication List Home Medication List Reviewed: Yes Review of Systems Review of Systems Constitutional: no symptoms reported EENTM: No Symptoms Reported Respiratory: See HPI Cardiovascular: No Symptoms Reported Gastrointestinal: See HPI Genitourinary: See HPI Musculoskeletal: no symptoms reported Skin: no symptoms reported Psychiatric/Neurological: No Symptoms Reported Endocrine: No Symptoms Reported Hematologic/Lymphatic: No Symptoms Reported Past Tfltbad-Flowzp-Dlfuax Hx Past Med/Social Hx: Reviewed and Corrections made Patient Social History Alcohol Use: Denies Use Recreational Drug Use: No Type Used: Cigarettes 2nd Hand Smoke Exposure: Yes Recent Foreign Travel: No Contact w/Someone Who Travel: No Recent Infectious Disease Expo: No Recent Hopitalizations: No Physical Abuse: No Sexual Abuse: No Immunizations Up To Date Tetanus Booster (TDap): Unknown PED Vaccines UTD: No Date of Influenza Vaccine: Jan 07, 2017 Seasonal Allergies Seasonal Allergies: No Past Medical History Surgeries: Yes (egd, colonoscopy) Section, Gallbladder, Tubal Ligation Respiratory: No (l lung nodule) Cardiac: Yes High Cholesterol, Hypertension, Irregular Heartbeat Neurological: Yes (r sided numbness r/t previous stroke) Headaches /Migraines, Stroke, Vertigo Reproductive Disorders: Yes Female Reproductive Disorders: Endometriosis TICKETER History: Tubal Ligation, Menopausal Sexually Transmitted Disease: No Genitourinary: Yes UTI-Chronic Gastrointestinal: Yes Gastroesophageal Reflux, Hiatal Hernia, Gall Bladder Disease Musculoskeletal: Yes Arthritis Endocrine: Yes Diabetes, Insulin dep HEENT: No Cancer: No Psychosocial: Yes Anxiety Integumentary: No Blood Disorders: Yes ("CLOTTING DISORDER", chronic leukocytosis) Adverse Reaction/Blood Tranf: No Family Medical History Reviewed Nursing Family Hx Cancer 19 MOTHER (THROAT CANCER) Family history: Hypertension 19 MOTHER History of - disorder G8 SISTER (SISTER HAD MS) Myocardial infarction 19 FATHER 19 MOTHER Stroke 19 MOTHER Heart Disease, Hypertension, Stroke Physical Exam Vital Signs Vital Signs - First Documented 03/18/18 09:00 Temp 97.8 Pulse 116 Resp 19 B/P (MAP) 131/69 (89) Pulse Ox 96 O2 Delivery Room Air Capillary Refill : Less Than 3 Seconds Height/Weight/BMI Height: 5'3.00" Weight: 180lbs. 0.0oz. 81.932216ut; 43.9 BMI Method:Stated General Appearance: WD/WN, mild distress, other (Anxious) HEENT: PERRL/EOMI, normal ENT inspection, other (Oropharynx somewhat dry) Neck: normal inspection Respiratory: lungs clear, normal breath sounds, no respiratory distress, no accessory muscle use Cardiovascular: regular rate, rhythm, no edema, no murmur Gastrointestinal: normal bowel sounds, non tender, soft Extremities: normal inspection, no pedal edema Neurologic/Psychiatric: tier in II-XII nml as tested, no motor/sensory deficits, alert, oriented x 3, other (Anxious) Skin: normal color, warm/dry Progress/Results/Core Measures Results/Orders Lab Results Laboratory Tests Test 03/18/18 09:16 03/18/18 09:50 Range/Units Urine Color RED H Urine Clarity BLOODY H Urine pH 6.5 5-9 Urine Specific [place] 1.015 L 1.016-1.022 Urine Protein 3+ H NEGATIVE Urine Glucose (UA) NEGATIVE NEGATIVE Urine Ketones NEGATIVE NEGATIVE Urine Nitrite POSITIVE H NEGATIVE Urine Bilirubin 3+ H NEGATIVE Urine Urobilinogen 8 H NORMAL MG/DL Urine Leukocyte Esterase NEGATIVE NEGATIVE Urine RBC (Auto) 4+ H NEGATIVE Urine RBC >100 H /HPF Urine WBC >100 H /HPF Urine Squamous Epithelial Cells 5-10 /HPF Urine Crystals NONE /LPF Urine Bacteria FEW H /HPF Urine Casts NONE /LPF Urine Mucus NEGATIVE /LPF Urine Culture Indicated YES White Blood Count 15.1 H 4.3-11.0 10^3/uL Red Blood Count 4.76 4.35-5.85 10^6/uL Hemoglobin 14.5 11.5-16.0 G/DL Hematocrit 44 35-52 % Mean Corpuscular Volume 92 80-99 FL Mean Corpuscular Hemoglobin 31 25-34 PG Mean Corpuscular Hemoglobin Concent 33 32-36 G/DL Red Cell Distribution Width 14.7 H 10.0-14.5 % Platelet Count 335 130-400 10^3/uL Mean Platelet Volume 10.0 7.4-10.4 FL Neutrophils (%) (Auto) 70 42-75 % Lymphocytes (%) (Auto) 23 12-44 % Monocytes (%) (Auto) 5 0-12 % Eosinophils (%) (Auto) 1 0-10 % Basophils (%) (Auto) 0 0-10 % Neutrophils # (Auto) 10.5 H 1.8-7.8 X 10^3 Lymphocytes # (Auto) 3.5 1.0-4.0 X 10^3 Monocytes # (Auto) 0.8 0.0-1.0 X 10^3 Eosinophils # (Auto) 0.2 0.0-0.3 10^3/uL Basophils # (Auto) 0.0 0.0-0.1 10^3/uL Neutrophils % (Manual) 64 % Lymphocytes % (Manual) 23 % Monocytes % (Manual) 8 % Eosinophils % (Manual) 0 % Basophils % (Manual) 0 % Band Neutrophils 5 % Blood Morphology Comment NORMAL Sodium Level 138 135-145 MMOL/L Potassium Level 3.4 L 3.6-5.0 MMOL/L Chloride Level 97 L 98-107 MMOL/L Carbon Dioxide Level 24 21-32 MMOL/L Anion Gap 17 H 5-14 MMOL/L Blood Urea Nitrogen 12 7-18 MG/DL Creatinine 0.68 0.60-1.30 MG/DL Estimat Glomerular Filtration Rate > 60 BUN/Creatinine Ratio 18 Glucose Level 248 H 70-105 MG/DL Calcium Level 9.5 8.5-10.1 MG/DL Corrected Calcium 9.6 8.5-10.1 MG/DL Total Bilirubin 0.8 0.1-1.0 MG/DL Aspartate Amino Transf (AST/SGOT) 67 H 5-34 U/L Alanine Aminotransferase (ALT/SGPT) 48 0-55 U/L Alkaline Phosphatase 120 40-136 U/L C-Reactive Protein High Sensitivity 0.86 H 0.00-0.50 MG/DL Total Protein 7.4 6.4-8.2 GM/DL Albumin 3.9 3.2-4.5 GM/DL My Orders Orders - AKBAR EVANS MD Cbc With Automated Diff (03/18/18 09:15) Comprehensive Metabolic Panel (03/18/18 09:15) Ua Culture If Indicated (03/18/18 09:15) Saline Lock/Iv-Start (03/18/18 09:15) Saline Lock/Iv-Start (03/18/18 09:15) Ns Iv 1000 Ml (Sodium Chloride 0.9%) (03/18/18 09:15) Urine Culture (03/18/18 09:16) Hs C Reactive Protein (03/18/18 09:56) Manual Differential (03/18/18 09:50) Ciprofloxacin Iv 400mg/200ml (Cipro Iv S (03/18/18 10:30) Medications Given in ED Vital Signs/I&O 03/18/18 03/18/18 09:00 11:39 Temp 97.8 97.9 Pulse 116 90 Resp 19 13 B/P (MAP) 131/69 (89) 151/96 (114) Pulse Ox 96 97 O2 Delivery Room Air Room Air Blood Pressure Mean: 89 Progress Progress Note : Time: 10:44 Progress Note Labs were reviewed and 1 L of IV normal saline was infused. Patient did have leukocytosis which was felt likely secondary to recent steroid use. CRP was unremarkable. Sepsis was felt unlikely. Heart rate improved with IV fluids. Cipro was selected as the antibiotic of choice because patient stated that is the antibiotic Dr. Rose requested for her uterine issues. Cipro 400 mg IV was infused in the ER. Blood was noted in the urine as well. This is likely secondary to patient's dysfunctional uterine bleeding and/or UTI. Recent CT from early January was reviewed by me. Images were reviewed and report was reviewed. There was no evidence of renal or ureteral stones at that time. Departure Impression Primary Impression: Urinary tract infection Qualified Codes: N39.0 - Urinary tract infection, site not specified; R31.9 - Hematuria, unspecified Additional Impression: Hypovolemia Disposition: 01 HOME, SELF-CARE Condition: Improved Departure-Patient Inst. Decision time for Depature: 10:46 Referrals: [facility] [place] (PCP/Family) Primary Care Physician Patient Instructions: Urinary Tract Infection, Adult (DC) Add. Discharge Instructions: Complete your Cipro as previously prescribed. You may also continue with the prophylactic Flagyl as prescribed. Follow-up with your primary care provider on Tuesday or Tuesday to review urine culture results. Follow-up with Dr. Rose as previously directed. Return to the emergency room if symptoms are worsening, especially if you develop fevers over 100. Drink plenty of clear liquids. All discharge instructions reviewed with patient and/or family. Voiced understanding. Copy Copies To 1: EHSAN CARABALLO DO Copies To 2: JOSE G ROSE MD, JOSHUA T MD Mar 18, 2018 10:40
[2018-03-18 11:39] VITALS: BP 151/96
== END 2018-03-18 11:39 | disposition home or self-care (01) ==
LOC: EDUNIT# 08:50 → ER 08:51
DX: N39.0 Urinary tract infection, site not specified (principal); E86.1 Hypovolemia; E78.00 Pure hypercholesterolemia, unspecified; I10 Essential (primary) hypertension; G43.909 Migraine, unspecified, not intractable, without status migrainosus; K21.9 Gastro-esophageal reflux disease without esophagitis; F41.9 Anxiety disorder, unspecified; E11.9 Type 2 diabetes mellitus without complications; D72.829 Elevated white blood cell count, unspecified; Z87.19 Personal history of other diseases of the digestive system; Z80.0 Family history of malignant neoplasm of digestive organs; Z82.49 Family history of ischemic heart disease and other diseases of the circulatory system; Z87.448 Personal history of other diseases of urinary system; Z86.73 Personal history of transient ischemic attack (TIA), and cerebral infarction without residual deficits; Z98.51 Tubal ligation status; Z98.890 Other specified postprocedural states; Z77.22 Contact with and (suspected) exposure to environmental tobacco smoke (acute) (chronic); Z88.0 Allergy status to penicillin; Z88.5 Allergy status to narcotic agent; Z88.8 Allergy status to other drugs, medicaments and biological substances; Z87.440 Personal history of urinary (tract) infections; Z86.19 Personal history of other infectious and parasitic diseases; Z79.82 Long term (current) use of aspirin
CPT/HCPCS: 36415; 80053; 81000; 85007; 85027; 86141; 87077; 87088; 87186

== ENCOUNTER → 2018-05-31 | Outpatient (CLI) | payer MEDICARE, MEDICAID ==
[~2018-05-31] MED LIST changes: +METR-145 PO; -METR-197 PO
--- NOTE | 2018-05-31 14:48 | Diagnostic Imaging Report ---
PROCEDURE: CT chest without contrast. TECHNIQUE: Multiple contiguous axial images were obtained through the chest without the use of intravenous contrast. INDICATION: Followup pulmonary nodule. COMPARISON: CT chest of 10/19/2017. FINDINGS: Lungs and airway: No endoluminal nodules in the trachea. Paraseptal emphysema in the lung apices is unchanged. The purely groundglass nodule within the left upper lobe is stable measuring approximately 8 mm in size. No new pulmonary nodule. No interstitial lung disease. Pleura: No pleural effusion or pneumothorax. Heart and mediastinum: Thyroid is normal. No supraclavicular or axillary lymphadenopathy. No mediastinal, discrete hilar or juxtaphrenic lymphadenopathy. The heart is normal in size. No pericardial effusion. Normal caliber thoracic aorta with a few scattered calcified plaques. Upper abdomen: Incompletely imaged hepatomegaly. Cholecystectomy. Musculoskeletal: No worrisome focal osseous lesion or soft tissue mass. IMPRESSION: 1. The purely groundglass 8mm left upper lobe pulmonary nodule is stable. Given the persistence, this is unlikely to be infectious in etiology. Therefore, a very slow-growing primary lung cancer cannot be excluded. Followup CT chest in 24 months is advised to ensure stability. Dictated by: Dictated on workstation # [id number]
== END ==
LOC: RAD 11:09
PROVIDERS: ATTEND Nurse Practitioner Family
DX: R91.1 Solitary pulmonary nodule (principal); R06.02 Shortness of breath; Z72.0 Tobacco use; Z90.49 Acquired absence of other specified parts of digestive tract
CPT/HCPCS: 71250

== ENCOUNTER 2018-08-11 05:32 | Outpatient (CLI) | payer MEDICARE, MEDICAID ==
[~2018-08-11] VITALS: Ht 160 cm; Wt 81.6 kg
[2018-08-11] MEDS ORDERED: ONDA4TAB11 PO (11:09)
[2018-08-11] MEDS ORDERED: SAXA5TAB PO (11:09)
[2018-08-11] MEDS ORDERED: METF750T2 PO (11:09)
[2018-08-11] MEDS ORDERED: METO-333 PO (11:09)
[2018-08-11] MEDS ORDERED: SUCR1TAB36 PO (11:09)
[2018-08-11] MEDS ORDERED: DILT120T3 PO (11:09)
[2018-08-11] MEDS ORDERED: CLOP75TA69 PO (11:09)
[2018-08-11] MEDS ORDERED: MEDR2.5T6 PO (11:09)
[2018-08-11] MEDS ORDERED: POTA10CA43 PO (11:09)
[2018-08-11] MEDS ORDERED: INSU100I14 SQ (11:09)
[2018-08-11] MEDS ORDERED: FAMO20TA3 PO (11:09)
[2018-08-11] MEDS ORDERED: NYST1000 PO (11:09)
[2018-08-11] MEDS ORDERED: SENN-141 PO (11:09)
[2018-08-11] MEDS ORDERED: HYDR25TA4 PO (11:09)
[2018-08-11] MEDS ORDERED: ASPI-999 PO (11:09)
[2018-08-11] MEDS ORDERED: ESTR1TAB27 PO (11:09)
[2018-08-11] MEDS ORDERED: INSU100V5 SQ ×2 (11:09)
[2018-08-11] MEDS ORDERED: ATOR80TA76 PO (11:09)
[2018-08-11] MEDS ORDERED: PANT40TA3 PO (11:09)
== END 2018-08-11 11:26 | disposition home or self-care (01) ==
LOC: PREOP 05:32
PROVIDERS: ATTEND Surgery
DX: Z01.818 Encounter for other preprocedural examination (principal)

== ENCOUNTER 2018-08-17 06:51 | Day surgery (SDC) | payer MEDICARE, MEDICAID ==
[~2018-08-17] VITALS: Ht 160 cm; Wt 81.6 kg
[2018-08-17] VITALS (16 sets, daily range): BP systolic 100–143; BP diastolic 55–76
[~2018-08-17 06:51] MED LIST changes: +ASPI-999 PO; +ATOR80TA76 PO; +CLOP75TA69 PO; +DILT120T3 PO; +ESTR1TAB27 PO; +FAMO20TA3 PO; +HYDR25TA4 PO; +INSU100I14 SQ; +INSU100V5 SQ; +MEDR2.5T6 PO; +METF750T2 PO; +METO-333 PO; +ONDA4TAB11 PO; +PANT40TA3 PO; +POTA10CA43 PO; +SAXA5TAB PO; +SENN-141 PO; +SUCR1TAB36 PO
[2018-08-17] MEDS: LACTATED RINGERS 1,000 ML IV SCH ×2 (07:20→09:45)
--- OUTSIDE RECORDS SUMMARY | 2018-08-17 07:34 | XMS REPORT | Clinical Summary ---
Author Author [facility] Organization [facility] Address Unknown Phone Unavailable Care Team Providers Care Impregnating Helper Name Role Phone Unknown, Unknown Md PCP Unavailable Source Comments Some departments are not documenting in the electronic medical record. If you d o not see the information that you expected, contact Release of Information in located within [facility] Information Management department at [phone] for further assistan ce in locating additional records.[facility] Allergies Not on File Medications Not on [...] 1976 EXAM HIV SCREENING 1984 DTAP/TDAP VACCINES ( - 09/14/1987 Tdap) CERVICAL CANCER SCREENING 09/14/1999 BREAST CANCER SCREENING 2009 INFLUENZA VACCINE 12/19/2018 Results Not on filefrom Last 3 Months Advance Directives Patient has advance care planning documents on file. For more information, kimmie smith contact: [address] [phone]
--- OUTSIDE RECORDS SUMMARY | 2018-08-17 07:35 | XMS REPORT ---
Author Author Migration, Doctor Organization [facility] Address Unknown Phone Unavailable Care Team Providers Care Accounting Systems Analyst Name Role Phone Migration, Doctor Unavailable Unavailable PROBLEMS Type Condition ICD9-CM Code HFM44-WQ Code Onset Dates Condition Status SNOMED Code Problem 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 Active 648912765 Problem Generalized anxiety disorder F41.1 Active 31997873 Problem Hyperlipidemia, unspecified hyperlipidemia type E78.5 Active 16746467 Problem DM (diabetes mellitus) with complications E11.8 Active 87317686 Problem Gastroesophageal reflux disease, esophagitis presence not specified K21.9 Active 863942457 Problem Essential hypertension I10 Active 17260790 Problem Tobacco abuse Z72.0 Active 037487006 Problem Other chronic pain G89.29 Active 44252063 Problem History of CVA with residual deficit I69.30 Active 640809271 Problem 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 Active 452311936 Problem Type 2 diabetes mellitus with hyperglycemia E11.65 Active 55970422 Problem Type 2 diabetes mellitus without complications E11.9 Active 650962617 Problem Seasonal allergic rhinitis due to pollen J30.1 Active 12851415 Problem Major depressive disorder, recurrent episode, moderate F33.1 Active 462166656 Problem Recurrent major depressive disorder, in full remission F33.42 Active 72604469 Problem Tobacco abuse counseling Z71.6 Active 561826919 Problem Vitamin D deficiency E55.9 Active 94691766 Problem Elevated liver enzymes R74.8 Active 408983836 Problem Chronic pain syndrome G89.4 Active 187073332 Problem Acute non intractable tension-type headache G44.209 Active 959318891 Problem Abnormal drug screen R89.2 Active 028445060 Problem Panic disorder F41.0 Active 665158020 ALLERGIES No Information ENCOUNTERS Encounter Location Date Diagnosis [facility] [place] [address] [facility] [id number] [place] [address] July, Type 2 diabetes mellitus with hyperglycemia E11.65 ; Seasonal allergic rhinitis due to pollen J30.1 ; Abdominal bloating R14.0 and Tobacco abuse Z72.0 [place] [address] [place] [id number] [place] [address] July, Hypokalemia E87.6 and History of CVA with residual deficit I69.30 [place] [address] [place] [id number] [place] [address] Jun, Essential hypertension I10 [place] [address] [address] Jun, [place] [address] [place] [id number] [place] [address] Jun, Type 2 diabetes mellitus with hyperglycemia E11.65 ; History of CVA with residual deficit I69.30 and Recurrent major depressive disorder, in full remission F33.42 [facility] [address] [place] [id number] [place] [address] May, [place] [address] [place] [id number] [place] [address] May, [facility] [address] [place] [id number] [place] [address] May, Dysuria R30.0 ; Urinary tract infection, site not specified N39.0 and Hematuria, unspecified R31.9 [place] [address] [place] [id number] [place] [address] May, Essential hypertension I10 and Gastroesophageal reflux disease, esophagitis presence not specified K21.9 [facility] [place] [address] [place] [id number] [place] [address] May, [place] [address] [address] May, Essential hypertension I10 [facility] [address] [place] [id number] [place] [address] May, Acute cystitis with hematuria N30.01 and Dysuria R30.0 [place] [address] [place] [id number] [place] [address] May, Type 2 diabetes mellitus with hyperglycemia E11.65 [place] [address] [address] 28 Apr, 2018 Gastroesophageal reflux disease, esophagitis presence not specified K21.9 [facility] [address] [address] 22 Apr, 2018 Sore throat J02.9 [place] [address] [address] 15 Apr, 2018 Gastroesophageal reflux disease, esophagitis presence not specified K21.9 and Abdominal bloating R14.0 [place] [address] [address] 15 Apr, 2018 History of CVA with residual deficit I69.30 [place] [address] [address] 06 Apr, 2018 Bronchitis J40 ; Type 2 diabetes mellitus without complications E11.9 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 [place] [address] [address] 04 Apr, 2018 [facility] [address] [place] [id number] [place] [address] Mar, Viral upper respiratory tract infection J06.9 [place] [address] [address] Mar, Cough R05 [place] [address] [place] [id number] [place] [address] Feb, Type 2 diabetes mellitus with hyperglycemia E11.65 and History of Clostridium difficile infection Z86.19 [place] [address] [place] [id number] [place] [address] Feb, [place] [address] [place] [id number] [place] [address] Feb, Acute nasopharyngitis (common cold) J00 and Cough R05 [facility], [place] [address] [place] [id number] [place] [address] 17 Feb, 2018 [facility] [address] [place] [id number] [place] [address] Feb, Dysuria R30.0 ; Urinary tract infection, site not specified N39.0 and Encounter for immunization Z23 [facility], [place] [address] [address] Feb, Bronchitis J40 [facility] [address] [place] [id number] [place] [address] Jan, Oral thrush B37.0 [facility], [place] [address] [place] [id number] [place] [address] Jan, [facility], [place] [address] [place] [id number] [place] [address] Jan, [facility], [place] [address] [place] [id number] [place] [address] Jan, [facility], [place] [address] [place] [id number] [place] [address] Jan, [facility], [place] [address] [place] [id number] [place] [address] Jan, Bronchitis J40 [facility], [place] [address] [place] [id number] [place] [address] Jan, [facility], [place] [address] [place] [id number] [place] [address] Jan, [facility], [place] [address] [place] [id number] [place] [address] Dec, Hyperlipidemia, unspecified hyperlipidemia type E78.5 [facility], [place] [address] [place] [id number] [place] [address] Dec, C. difficile diarrhea A04.72 and Bronchitis J40 [facility], [place] [address] [place] [id number] [place] [address] Dec, [place] [address] [place] [id number] [place] [address] 28 Nov, 2017 C. difficile diarrhea A04.72 [place] [address] [place] [id number] [place] [address] 26 Nov, 2017 Panic disorder F41.0 [place] [address] [address] 25 Nov, 2017 Diarrhea, unspecified type R19.7 [place] [address] [place] [id number] [place] [address] 19 Nov, 2017 [place] [address] [place] [id number] [place] [address] 13 Nov, 2017 Dysuria R30.0 ; Acute cystitis with hematuria N30.01 ; Flank pain R10.9 and Violation of controlled substance agreement Z91.14 [place] [address] [place] [id number] [place] [address] 16 Oct, 2017 [facility] [address] [place] [id number] [place] [address] Oct, [facility] [address] [place] [id number] [place] [address] 14 Oct, 2017 Dysuria R30.0 and Acute cystitis with hematuria N30.01 [place] [address] [place] [id number] [place] [address] Oct, [place] [address] [place] [id number] [place] [address] Oct, [place] [address] [place] [id number] [place] [address] Oct, Controlled substance agreement broken Z91.14 ; Violation of controlled substance agreement Z91.14 ; Other chronic pain G89.29 and Generalized anxiety disorder F41.1 [place] [address] [place] [id number] [place] [address] Oct, [facility], [place] [address] [place] [id number] [place] [address] Oct, [facility], [place] [address] [address] Sep, Abscess L02.91 [facility], [place] [address] [address] Sep, [facility], [place] [address] [address] Sep, DM (diabetes mellitus) with complications E11.8 ; Generalized anxiety disorder F41.1 and Chronic pain syndrome G89.4 [place] [address] [address] Sep, Generalized anxiety disorder F41.1 ; Chronic pain syndrome G89.4 ; Abnormal drug screen R89.2 and Other chest pain R07.89 [facility], [place] [address] [address] Aug, Dysuria R30.0 [facility], [place] [address] [address] Aug, Generalized anxiety disorder F41.1 ; Chronic pain syndrome G89.4 and Dysuria R30.0 [facility], [place] [address] [place] [id number] [place] [address] Aug, Acute cystitis with hematuria N30.01 and Candidal dermatitis B37.2 [facility], [place] [address] [place] [id number] [place] [address] Aug, Dysuria R30.0 [facility], [place] [address] [address] Aug, [facility] [address] [place] [id number] [place] [address] Aug, Dysuria R30.0 [facility], [place] [address] [address] Aug, [place] [id number] [place] [address] July, Cervicalgia M54.2 ; Acute non intractable tension-type headache G44.209 ; Type 2 diabetes mellitus with hyperglycemia E11.65 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 [place] [address] [place] [id number] [place] [address] July, Generalized anxiety disorder F41.1 and Chronic pain syndrome G89.4 [place] [address] [place] [id number] [place] [address] July, Abscess L02.91 [place] [address] [place] [id number] [place] [address] July, [place] [address] [place] [id number] [place] [address] July, [place] [address] [place] [id number] [place] [address] July, Type 2 diabetes mellitus with hyperglycemia [...] pain syndrome G89.4 and Vaginal candidiasis B37.3 [place] [address] [place] [id number] [place] [address] Jun, Generalized anxiety disorder F41.1 and Other chronic pain G89.29 [place] [address] [place] [id number] [place] [address] Jun, [place] [address] [place] [id number] [place] [address] Jun, [facility], [place] [id number] [place] [address] Jun, Abnormal levels of other serum enzymes R74.8 [facility], [place] [address] [place] [id number] [place] [address] Jun, Abnormal levels of other serum enzymes R74.8 [facility] [place] [address] [place] [id number] [place] [address] Jun, Elevated liver enzymes R74.8 [place] [address] [place] [id number] [place] [address] Jun, Elevated liver enzymes R74.8 [place] [address] [place] [id number] [place] [address] May, Right upper quadrant pain R10.11 ; Cervicalgia M54.2 and High risk medication use Z79.899 [place] [address] [place] [id number] [place] [address] May, Generalized anxiety disorder F41.1 and Other chronic pain G89.29 [place] [address] [place] [id number] [place] [address] May, Canker sores oral K12.0 [place] [address] [place] [id number] [place] [address] May, Generalized anxiety disorder F41.1 and Other chronic pain G89.29 [facility], [place] [address] [place] [id number] [place] [address] May, [facility], [place] [address] [place] [id number] [place] [address] Apr, [facility] [address] [place] [id number] [place] [address] Apr, Acute cystitis with hematuria N30.01 and Dysuria R30.0 [place] [address] [place] [id number] [place] [address] Apr, [facility], [place] [address] [address] Apr, [facility], [place] [address] [place] [id number] [place] [address] Apr, DM (diabetes mellitus) with complications E11.8 [place] [address] [place] [id number] [place] [address] 06 Apr, 2017 DM (diabetes mellitus) with complications E11.8 [place] [id number] [place] [address] 03 Apr, 2017 [place] [address] [place] [id number] [place] [address] Apr, [place] [id number] [place] [address] Apr, Other chronic pain G89.29 ; Generalized anxiety disorder F41.1 ; Cervicalgia M54.2 and Controlled substance agreement signed Z79.899 [facility] [id number] [place] [address] Mar, Abdominal pain R10.9 and Viral gastroenteritis A08.4 [facility], [place] [id number] [place] [address] Mar, [facility], [place] [id number] [place] [address] Mar, [facility], [place] [id number] [place] [address] Mar, DM (diabetes mellitus) with complications E11.8 ; Type 2 diabetes mellitus with hyperglycemia E11.65 ; 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.4 ; Essential hypertension I10 ; Bronchitis J40 ; Major depressive disorder, recurrent episode, moderate F33.1 ; Hyperlipidemia, unspecified hyperlipidemia type E78.5 ; Tobacco abuse Z72.0 ; Tobacco abuse counseling Z71.6 ; History of CVA with residual deficit I69.30 ; Gastroesophageal reflux disease, esophagitis presence not specified K21.9 and 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 [place] [address] [address] Mar, [place] [address] [address] Mar, DM (diabetes mellitus) with complications E11.8 ; Abnormal lung sounds R09.89 ; Bronchitis J40 and Hyperlipidemia, unspecified hyperlipidemia type E78.5 [facility] [place] [address] [address] Mar, URI, acute J06.9 [place] [address] [address] Mar, [place] [address] [address] Mar, DM (diabetes mellitus) with complications E11.8 [place] [address] [address] Mar, Other chronic pain G89.29 and Generalized anxiety disorder F41.1 [place] [address] [address] Feb, [place] [address] [address] Feb, Mass of left lung R91.8 and Cervicalgia M54.2 [place] [address] [address] Feb, [place] [address] [address] Feb, [facility] [place] [address] [address] Feb, Cough R05 and Bronchitis J40 [facility] [address] [address] Feb, Acute nasopharyngitis J00 and Bronchitis J40 [facility] [place] [address] [place] [id number] [place] [address] 06 Feb, 2017 Other chronic pain G89.29 and Generalized anxiety disorder F41.1 [facility] [place] [address] [address] 29 Jan, 2017 Encounter for immunization Z23 [facility] [address] [address] Jan, [facility] [address] [address] Jan, [place] [address] [address] 16 Jan, 2017 Canker sores oral K12.0 [place] [address] [address] 14 Jan, 2017 [facility] [place] [address] [address] 07 Jan, 2017 Other chronic pain G89.29 and Generalized anxiety disorder F41.1 [place] [address] [address] 06 Jan, 2017 Cough R05 and Bronchitis J40 [facility] [address] [address] 04 Jan, 2017 Bronchitis J40 [facility] [place] [address] [address] Dec, Vitamin D deficiency E55.9 [place] [address] [address] Dec, DM (diabetes mellitus) with complications E11.8 [place] [address] [address] Dec, DM (diabetes mellitus) with complications E11.8 and Vitamin D deficiency E55.9 [place] [address] [address] Dec, DM (diabetes mellitus) with complications E11.8 ; Essential hypertension I10 ; Hyperlipidemia, unspecified hyperlipidemia type E78.5 ; Vitamin D deficiency E55.9 ; Gastroesophageal reflux disease, esophagitis presence not specified K21.9 ; 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 ; Other chronic pain G89.29 ; Encounter for immunization Z23 and Generalized anxiety disorder F41.1 [place] [address] [address] 12 Nov, 2016 History of CVA with residual deficit I69.30 [place] [address] [address] 11 Nov, 2016 DM (diabetes mellitus) with complications E11.8 [place] [address] [address] 06 Nov, 2016 Left otitis media with effusion H65.92 ; Bronchitis J40 and Canker sores oral K12.[address] [address] Oct, [place] [address] [address] Oct, DM (diabetes mellitus) with complications E11.8 [place] [address] [place] [id number] [place] [address] Oct, [place] [address] [place] [id number] [place] [address] Sep, DM (diabetes mellitus) with complications E11.8 [place] [address] [place] [id number] [place] [address] Sep, DM (diabetes mellitus) with complications E11.8 ; Essential hypertension I10 ; Gastroesophageal reflux disease, esophagitis presence not specified K21.9 ; Hyperlipidemia, unspecified hyperlipidemia type E78.5 ; Tobacco abuse Z72.0 ; Vitamin D deficiency E55.9 ; History of CVA with residual deficit I69.30 and Seasonal allergic rhinitis due to pollen J30.[address] [place] [address] Sep, [facility] [place] [address] [place] [id number] [place] [address] Aug, [facility] [address] [place] [id number] [place] [address] Aug, Dysuria R30.0 ; Acute cystitis with hematuria N30.01 and Middle ear effusion, right H65.91 [facility] [place] [address] [place] [id number] [place] [address] Aug, Other complicated headache syndrome G44.59 [facility] [place] [address] [place] [id number] [place] [address] Aug, DM (diabetes mellitus) with complications E11.8 [facility] [place] [address] [place] [id number] [place] [address] Aug, Dysuria R30.0 [facility] [place] [address] [place] [id number] [place] [address] Aug, Dysuria R30.0 [facility] [place] [address] [place] [id number] [place] [address] Aug, [facility] [place] [address] [place] [id number] [place] [address] July, [facility] [place] [address] [place] [id number] [place] [address] July, [facility] [place] [address] [place] [id number] [place] [address] July, DM (diabetes mellitus) with complications E11.8 [facility] [place] [address] [place] [id number] [place] [address] July, Other complicated headache syndrome G44.59 [facility] [place] [address] [place] [id number] [place] [address] July, [facility] [address] [place] [id number] [place] [address] July, Dysuria R30.0 and Acute cystitis with hematuria N30.01 [place] [address] [place] [id number] [place] [address] July, [facility] [place] [address] [address] July, Other complicated headache syndrome G44.59 [facility] [address] [address] Jun, Exposure to strep throat Z20.818 and Acute upper respiratory infection, unspecified J06.9 [place] [address] [address] Jun, [place] [address] [address] Jun, DM (diabetes mellitus) with complications E11.8 and Gastroesophageal reflux disease, esophagitis presence not specified K21.9 [place] [address] [place] [id number] [place] [address] Jun, [place] [address] [address] Jun, Dizziness R42 [facility] [place] [address] [place] [id number] [place] [id number] Jun, [place] [address] [place] [id number] [place] [address] Jun, [facility] [address] [place] [id number] [place] [address] May, Seasonal allergic rhinitis, unspecified allergic rhinitis trigger J30.2 [place] [address] [place] [id number] [place] [id number] May, [facility], [place] [address] [place] [id number] [place] [address] May, DM (diabetes mellitus) with complications E11.8 [...] [facility], [place] [address] [place] [id number] [place] [address] May, Gastroesophageal reflux disease, esophagitis presence not specified K21.9 [facility], [place] [address] [place] [id number] [place] [address] May, [facility], [place] [address] [place] [id number] [place] [address] Apr, [facility], [place] [address] [place] [id number] [place] [id number] Apr, [facility], [place] [address] [place] [id number] [place] [address] Mar, [facility] [facility] [place] [id number] [place] [id number] Mar, [facility], [place] [id number] [place] [address] Mar, [facility], [place] [id number] [address] Mar, [facility], [place] [id number] [place] [phone] Feb, [facility], [place] [id number] [place] [id number] Feb, [facility], [place] [id number] [place] [id number] Feb, [facility], [place] [id number] [place] [address] Feb, Major depressive disorder, recurrent episode, moderate F33.1 ; Generalized anxiety disorder F41.1 ; Essential hypertension I10 ; DM (diabetes mellitus) with complications E11.8 ; Hyperlipidemia, unspecified hyperlipidemia type E78.5 ; 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 and Gastroesophageal reflux disease, esophagitis presence not specified K21.9 [facility] [id number] [place] [address] Feb, Other viral agents as the cause of diseases classified elsewhere B97.89 and Acute upper respiratory infection, unspecified J06.9 [facility], [place] [address] [address] Jan, [place] [address] [address] Jan, [facility] [id number] [place] [address] Jan, Acute bronchitis, unspecified organism J20.9 [place] [address] [address] Jan, [place] [id number] [place] [address] Jan, History of CVA with residual deficit I69.30 [place] [id number] [place] [address] Jan, [place] [id number] [place] [address] Jan, Acute bronchitis, unspecified organism J20.9 [place] [id number] [place] [phone] Jan, [place] [address] [address] Dec, History of CVA with residual deficit I69.30 [place] [id number] [place] [address] Dec, [place] [id number] [place] [address] Dec, Other chronic pain G89.29 ; DM (diabetes mellitus) with complications E11.8 and History of CVA with residual deficit I69.30 [place] [address] [id number] [place] [address] Nov, Major depressive disorder, recurrent episode, moderate F33.1 ; Irregular heart rhythm I49.9 ; Essential hypertension I10 ; History of CVA with residual deficit I69.30 ; DM (diabetes mellitus) with complications E11.8 ; Gastroesophageal reflux disease, esophagitis presence not specified K21.9 ; Hyperlipidemia, unspecified hyperlipidemia type E78.5 ; 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 ; Other chronic pain G89.29 and Generalized anxiety disorder F41.[address] [address] Oct, Generalized anxiety disorder F41.1 ; Major depressive disorder, recurrent episode, moderate F33.1 ; Essential hypertension I10 ; History of CVA with residual deficit I69.30 ; DM (diabetes mellitus) with complications E11.8 ; Gastroesophageal reflux disease, esophagitis presence not specified K21.9 ; Hyperlipidemia, unspecified hyperlipidemia type E78.5 ; Other chronic pain G89.29 and Bacterial conjunctivitis of left eye H10.9 [place] [id number] [place] [address] Sep, Chronic pain syndrome G89.4 and DM (diabetes mellitus) with complications E11.8 [place] [id number] [place] [phone] Sep, Irregular heart rhythm I49.9 ; Routine health maintenance Z00.00 ; Essential hypertension I10 ; History of CVA with residual deficit I69.30 ; Gastroesophageal reflux disease, esophagitis presence not specified K21.9 ; DM (diabetes mellitus) with complications E11.8 ; Hyperlipidemia, unspecified hyperlipidemia type E78.5 and Other complicated headache syndrome G44.59 [place] [id number] [place] [id number] Jun, [address] [address] Jun, [facility], [place] [address] [facility] [id number] [place] [address] Aug, [facility], [place] [address] [facility] [id number] [address] Jun, IMMUNIZATIONS No Known Immunizations SOCIAL HISTORY Never Assessed REASON FOR VISIT EMR-[facility] PLAN OF CARE VITAL SIGNS MEDICATIONS No Known Medications RESULTS No Results PROCEDURES No Known procedures INSTRUCTIONS MEDICATIONS ADMINISTERED No Known Medications MEDICAL (GENERAL) HISTORY Type Description Date Medical History diabetes mellitus Medical History hyperlipidemia Medical History hypertension Medical History Anxiety disorder Medical History Blood Clotting Disorder- Dr Galvan at [facility] Medical History Possible Anemia (currently under work up) - Dr Galvan [facility] Medical History irregular heart beat-sees dr. hassan Medical History history of pancreatitis Medical History gerd Medical History History of CVA with residual deficit Medical History Other complicated headache syndrome Medical History Stokes syndrome Surgical History tubal ligation Surgical History section Surgical History cholecystectomy Surgical History Toe Nail Removal x2 Hospitalization History Brain Stem Strokes x5. Has been hospitalized at then transfered to [facility]. 2014 Hospitalization History Child Hospitalization History abd pain and shakiness - [facility] ED visit [facility], operated by [facility] 03/12/17 Hospitalization History [facility] ED for URI 04/16/17 Hospitalization History via [facility] er 08/16/17 Hospitalization History ER 11/2017
--- OUTSIDE RECORDS SUMMARY | 2018-08-17 07:35 | XMS REPORT ---
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 Active 140883743 Problem Generalized anxiety disorder F41.1 Active 22741423 Problem Hyperlipidemia, unspecified hyperlipidemia type E78.5 Active 35369289 Problem DM (diabetes mellitus) with complications E11.8 Active 29668820 Problem Gastroesophageal reflux disease, esophagitis presence not specified K21.9 Active 656856600 Problem Essential hypertension I10 Active 90141432 Problem Tobacco abuse Z72.0 Active 844743334 Problem Other chronic pain G89.29 Active 02635203 Problem History of CVA with residual deficit I69.30 Active 659052379 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 Active 940741339 Problem Type 2 diabetes mellitus with hyperglycemia E11.65 Active 06790450 Problem Type 2 diabetes mellitus without complications E11.9 Active 455671612 Problem Seasonal allergic rhinitis due to pollen J30.1 Active 03384736 Problem Major depressive disorder, recurrent episode, moderate F33.1 Active 761021979 Problem Recurrent major depressive disorder, in full remission F33.42 Active 81204308 Problem Tobacco abuse counseling Z71.6 Active 851367929 Problem Vitamin D deficiency E55.9 Active 62083507 Problem Elevated liver enzymes R74.8 Active 407747221 Problem Chronic pain syndrome G89.4 Active 168306317 Problem Acute non intractable tension-type headache G44.209 Active 244843298 Problem Abnormal drug screen R89.2 Active 035274387 Problem Panic disorder F41.0 Active 561692960 ALLERGIES No Information ENCOUNTERS Encounter Location Date Diagnosis [facility] [address] [facility] [id number] [address] July, [facility] [id number] [place] [address] Jun, Type 2 diabetes mellitus with hyperglycemia E11.65 ; History of CVA with residual deficit I69.30 and Recurrent major depressive disorder, in full remission F33.42 [facility] [id number] [place] [address] May, [facility] [address] [address] May, [facility] [id number] [place] [address] May, Dysuria R30.0 ; Urinary tract infection, site not specified N39.0 and Hematuria, unspecified R31.9 [place] [id number] [place] [address] May, Essential hypertension I10 and Gastroesophageal reflux disease, esophagitis presence not specified K21.9 [facility] [id number] [place] [address] May, [facility] [id number] [place] [address] May, Essential hypertension I10 [facility] [id number] [place] [address] May, Acute cystitis with hematuria N30.01 and Dysuria R30.0 [place] [id number] [place] [address] May, Type 2 diabetes mellitus with hyperglycemia E11.65 [place] [id number] [place] [address] Apr, Gastroesophageal reflux disease, esophagitis presence not specified K21.9 [facility] [id number] [place] [address] Apr, Sore throat J02.9 [facility] [id number] [place] [address] 15 Apr, 2018 Gastroesophageal reflux disease, esophagitis presence not specified K21.9 and Abdominal bloating R14.0 [place] [id number] [place] [address] 15 Apr, 2018 History of CVA with residual deficit I69.30 [place] [address] [address] 06 Apr, 2018 Bronchitis J40 ; Type 2 diabetes mellitus without complications E11.9 and retirement current use of insulin Z79.4 [place] [address] [address] 04 Apr, 2018 [facility] [place] [id number] [place] [address] 31 Mar, 2018 Viral upper respiratory tract infection J06.9 [place] [address] [address] Mar, Cough R05 [place] [address] [address] 28 Feb, 2018 Type 2 diabetes mellitus with hyperglycemia E11.65 and History of Clostridium difficile infection Z86.19 [place] [id number] [place] [address] 26 Feb, 2018 [place] [id number] [place] [address] Feb, Acute nasopharyngitis (common cold) J00 and Cough R05 [place] [id number] [place] [address] 17 Feb, 2018 [facility] [address] [address] Feb, Dysuria R30.0 ; Urinary tract infection, site not specified N39.0 and Encounter for immunization Z23 [place] [id number] [place] [address] 05 Feb, 2018 Bronchitis J40 [facility] [address] [facility] [id number] [address] Jan, Oral thrush B37.0 [facility] [address] [facility] [id number] [address] Jan, [facility] [address] [address] Jan, [facility] [id number] [place] [address] Jan, [facility] [id number] [place] [address] Jan, [facility] [id number] [place] [address] Jan, Bronchitis J40 [facility] [id number] [place] [address] Jan, [facility] [address] [place] [address] Jan, [facility] [id number] [place] [address] Dec, Hyperlipidemia, unspecified hyperlipidemia type E78.5 [facility] [address] [address] Dec, C. difficile diarrhea A04.72 and Bronchitis J40 [facility] [address] [address] Dec, [facility] [address] [address] Nov, C. difficile diarrhea A04.72 [facility] [address] [address] Nov, Panic disorder F41.0 [facility] [address] [address] Nov, Diarrhea, unspecified type R19.7 [facility] [id number] [place] [address] Nov, [facility] [id number] [place] [address] Nov, Dysuria R30.0 ; Acute cystitis with hematuria N30.01 ; Flank pain R10.9 and Violation of controlled substance agreement Z91.14 [facility] [id number] [place] [address] Oct, [facility] [id number] [place] [address] Oct, [facility] [id number] [place] [address] Oct, Dysuria R30.0 and Acute cystitis with hematuria N30.01 [place] [id number] [place] [address] Oct, [facility] [id number] [place] [address] Oct, [place] [id number] [place] [address] Oct, Controlled substance agreement broken Z91.14 ; Violation of controlled substance agreement Z91.14 ; Other chronic pain G89.29 and Generalized anxiety disorder F41.1 [place] [id number] [place] [address] Oct, [place] [id number] [place] [address] Oct, [place] [id number] [place] [address] Sep, Abscess L02.91 [place] [id number] [place] [address] Sep, [place] [id number] [place] [address] Sep, DM (diabetes mellitus) with complications E11.8 ; Generalized anxiety disorder F41.1 and Chronic pain syndrome G89.4 [facility] [id number] [place] [address] Sep, Generalized anxiety disorder F41.1 ; Chronic pain syndrome G89.4 ; Abnormal drug screen R89.2 and Other chest pain R07.89 [facility] [address] [address] Aug, Dysuria R30.0 [place] [address] [address] Aug, Generalized anxiety disorder F41.1 ; Chronic pain syndrome G89.4 and Dysuria R30.0 [place] [id number] [place] [address] Aug, Acute cystitis with hematuria N30.01 and Candidal dermatitis B37.2 [facility] [id number] [place] [address] Aug, Dysuria R30.0 [place] [address] [address] Aug, 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 [facility] [id number] [place] [address] July, Generalized anxiety disorder F41.1 and Chronic pain syndrome G89.4 [place] [id number] [place] [address] July, Abscess L02.91 [place] [id number] [place] [address] July, [place] [id number] [place] [address] July, [place] [id number] [place] [address] July, Type 2 diabetes mellitus with hyperglycemia [...] pain syndrome G89.4 and Vaginal candidiasis B37.3 [place] [id number] [place] [address] Jun, Generalized anxiety disorder F41.1 and Other chronic pain G89.29 [place] [id number] [place] [address] Jun, [place] [id number] [place] [address] Jun, [place] [id number] [place] [address] Jun, Abnormal levels of other serum enzymes R74.8 [place] [id number] [place] [address] Jun, Abnormal levels of other serum enzymes R74.8 [place] [id number] [place] [address] Jun, Elevated liver enzymes R74.8 [facility] [id number] [place] [address] 05 Jun, 2017 Elevated liver enzymes R74.8 [facility] [id number] [place] [address] 30 May, 2017 Right upper quadrant pain R10.11 ; Cervicalgia M54.2 and High risk medication use Z79.899 [facility] [id number] [place] [address] May, Generalized anxiety disorder F41.1 and Other chronic pain G89.29 [facility] [id number] [place] [address] May, Canker sores oral K12.0 [place] [id number] [place] [address] May, Generalized anxiety disorder F41.1 and Other chronic pain G89.29 [facility] [id number] [place] [address] May, [facility] [id number] [place] [address] Apr, [facility] [id number] [place] [address] Apr, Acute cystitis with hematuria N30.01 and Dysuria R30.0 [facility] [id number] [place] [address] Apr, [facility] [id number] [place] [address] Apr, [facility] [id number] [place] [address] Apr, DM (diabetes mellitus) with complications E11.8 [facility] [id number] [place] [address] 06 Apr, 2017 DM (diabetes mellitus) with complications E11.8 [place] [id number] [place] [address] 03 Apr, 2017 [place] [id number] [place] [address] Apr, [place] [id number] [place] [address] Apr, Other chronic pain G89.29 ; Generalized anxiety disorder F41.1 ; Cervicalgia M54.2 and Controlled substance agreement signed Z79.899 [facility] [place] [id number] [place] [address] Mar, Abdominal pain R10.9 and Viral gastroenteritis A08.4 [place] [id number] [place] [address] Mar, [place] [address] [address] Mar, [place] [id number] [place] [address] Mar, DM (diabetes mellitus) with complications E11.8 [...] not specified K21.9 and 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 [place] [id number] [place] [address] Mar, [place] [id number] [place] [address] Mar, DM (diabetes mellitus) with complications E11.8 ; Abnormal lung sounds R09.89 ; Bronchitis J40 and Hyperlipidemia, unspecified hyperlipidemia type E78.5 [facility] [address] [place] [address] Mar, URI, acute J06.9 [place] [address] [address] Mar, [place] [address] [address] Mar, DM (diabetes mellitus) with complications E11.8 [place] [address] [address] Mar, Other chronic pain G89.29 and Generalized anxiety disorder F41.1 [place] [address] [address] Feb, [place] [address] [address] Feb, Mass of left lung R91.8 and Cervicalgia M54.2 [place] [address] [address] Feb, [place] [address] [address] Feb, [facility] [address] [address] Feb, Cough R05 and Bronchitis J40 [facility] [address] [address] Feb, Acute nasopharyngitis J00 and Bronchitis J40 [place] [id number] [place] [address] Feb, Other chronic pain G89.29 and Generalized anxiety disorder F41.1 [place] [address] [address] Jan, Encounter for immunization Z23 [facility] [id number] [place] [address] Jan, [facility] [address] [address] 18 Jan, 2017 [place] [address] [address] 16 Jan, 2017 Canker sores oral K12.0 [place] [address] [address] 14 Jan, 2017 [place] [address] [address] 07 Jan, 2017 Other chronic pain G89.29 and Generalized anxiety disorder F41.[address] [address] 06 Jan, 2017 Cough R05 and Bronchitis J40 [facility] [address] [address] Jan, Bronchitis J40 [place] [address] [address] Dec, Vitamin D deficiency E55.9 [place] [address] [address] Dec, DM (diabetes mellitus) with complications E11.8 [place] [address] [address] Dec, DM (diabetes mellitus) with complications E11.8 and Vitamin D deficiency E55.9 [place] [address] [address] Dec, DM (diabetes mellitus) with complications E11.8 ; Essential hypertension I10 ; Hyperlipidemia, unspecified hyperlipidemia type E78.5 ; Vitamin D deficiency E55.9 ; Gastroesophageal reflux disease, esophagitis presence not specified K21.9 ; 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 ; Other chronic pain G89.29 ; Encounter for immunization Z23 and Generalized anxiety disorder F41.1 [place] [id number] [place] [address] 12 Nov, 2016 History of CVA with residual deficit I69.30 [place] [id number] [place] [address] Nov, DM (diabetes mellitus) with complications E11.8 [place] [id number] [place] [address] 06 Nov, 2016 Left otitis media with effusion H65.92 ; Bronchitis J40 and Canker sores oral K12.0 [place] [address] [address] Oct, [place] [address] [address] Oct, DM (diabetes mellitus) with complications E11.8 [place] [id number] [place] [address] Oct, [place] [address] [address] Sep, DM (diabetes mellitus) with complications E11.8 [place] [id number] [place] [address] Sep, DM (diabetes mellitus) with complications E11.8 ; Essential hypertension I10 ; Gastroesophageal reflux disease, esophagitis presence not specified K21.9 ; Hyperlipidemia, unspecified hyperlipidemia type E78.5 ; Tobacco abuse Z72.0 ; Vitamin D deficiency E55.9 ; History of CVA with residual deficit I69.30 and Seasonal allergic rhinitis due to pollen J30.1 [place] [id number] [place] [address] Sep, [place] [id number] [place] [address] Aug, [facility] [place] [id number] [place] [address] Aug, Dysuria R30.0 ; Acute cystitis with hematuria N30.01 and Middle ear effusion, right H65.91 [place] [address] [address] Aug, Other complicated headache syndrome G44.59 [facility] [address] [address] Aug, DM (diabetes mellitus) with complications E11.8 [facility] [id number] [place] [address] 14 Aug, 2016 Dysuria R30.0 [facility] [id number] [place] [address] Aug, Dysuria R30.0 [facility] [id number] [place] [address] Aug, [facility] [id number] [place] [address] July, [facility] [id number] [place] [address] July, [facility] [id number] [place] [address] July, DM (diabetes mellitus) with complications E11.8 [facility] [id number] [place] [address] July, Other complicated headache syndrome G44.59 [facility] [address] [address] July, [facility] [id number] [place] [address] July, Dysuria R30.0 and Acute cystitis with hematuria N30.01 [facility] [id number] [place] [address] July, [facility] [id number] [place] [address] July, Other complicated headache syndrome G44.59 [facility] [id number] [place] [address] Jun, Exposure to strep throat Z20.818 and Acute upper respiratory infection, unspecified J06.9 [place] [id number] [place] [address] Jun, [place] [address] [id number] [place] [address] Jun, DM (diabetes mellitus) with complications E11.8 and Gastroesophageal reflux disease, esophagitis presence not specified K21.9 [place] [address] [address] Jun, [place] [address] [address] Jun, Dizziness R42 [facility] [place] [address] [address] Jun, [place] [address] [address] Jun, [facility] [place] [address] [address] [id number] [place] [address] May, Seasonal allergic rhinitis, unspecified allergic rhinitis trigger J30.2 [place] [address] [address] May, [place] [address] [address] May, DM (diabetes mellitus) with complications E11.8 [...] Seasonal allergic rhinitis due to pollen J30.1 [place] [address] [place] [address] [id number] [place] [address] May, Gastroesophageal reflux disease, esophagitis presence not specified K21.9 [facility] [address] [address] May, [facility] [address] [address] Apr, [facility] [address] [address] Apr, [facility] [id number] [place] [address] Mar, [facility] [address] [address] Mar, [facility] [id number] [place] [phone] Mar, [facility] [id number] [place] [phone] Mar, [facility] [id number] [place] [phone] Feb, [facility] [id number] [address] Feb, [facility] [id number] [address] Feb, [facility] [id number] [address] Feb, Major depressive disorder, recurrent episode, moderate F33.1 ; Generalized anxiety disorder F41.1 ; Essential hypertension I10 ; DM (diabetes mellitus) with complications E11.8 ; Hyperlipidemia, unspecified hyperlipidemia type E78.5 ; 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 [id number] [address] Feb, Other viral agents as the cause of diseases classified elsewhere B97.89 and Acute upper respiratory infection, unspecified J06.9 [facility] [id number] [place] [phone] Jan, [facility] [id number] [place] [phone] Jan, [facility] [id number] [place] [phone] Jan, Acute bronchitis, unspecified organism J20.9 [facility] [id number] [place] [phone] Jan, [facility] [id number] [place] [phone] Jan, History of CVA with residual deficit I69.30 [facility] [id number] [place] [phone] Jan, [facility] [id number] [place] [phone] Jan, Acute bronchitis, unspecified organism J20.9 [facility] [id number] [place] [phone] Jan, [facility] [id number] [place] [phone] Dec, History of CVA with residual deficit I69.30 [facility] [id number] [place] [id number] Dec, [facility] [id number] [place] [id number] Dec, Other chronic pain G89.29 ; DM (diabetes mellitus) with complications E11.8 and History of CVA with residual deficit I69.30 [facility] [id number] [place] [id number] Nov, Major depressive disorder, recurrent episode, moderate F33.1 ; Irregular heart rhythm I49.9 ; Essential hypertension I10 ; History of CVA with residual deficit I69.30 ; DM (diabetes mellitus) with complications E11.8 ; Gastroesophageal reflux disease, esophagitis presence not specified K21.9 ; Hyperlipidemia, unspecified hyperlipidemia type E78.5 ; 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 ; Other chronic pain G89.29 and Generalized anxiety disorder F41.[address] [address] Oct, Generalized anxiety disorder F41.1 ; Major depressive disorder, recurrent episode, moderate F33.1 ; Essential hypertension I10 ; History of CVA with residual deficit I69.30 ; DM (diabetes mellitus) with complications E11.8 ; Gastroesophageal reflux disease, esophagitis presence not specified K21.9 ; Hyperlipidemia, unspecified hyperlipidemia type E78.5 ; Other chronic pain G89.29 and Bacterial conjunctivitis of left eye H10.[address] [id number] Sep, Chronic pain syndrome G89.4 and DM (diabetes mellitus) with complications E11.[address] [address] Sep, Irregular heart rhythm I49.9 ; Routine health maintenance Z00.00 ; Essential hypertension I10 ; History of CVA with residual deficit I69.30 ; Gastroesophageal reflux disease, esophagitis presence not specified K21.9 ; DM (diabetes mellitus) with complications E11.8 ; Hyperlipidemia, unspecified hyperlipidemia type E78.5 and Other complicated headache syndrome G44.59 [id number] [place] [id number] Jun, [id number] [place] [phone] Jun, [address] [phone] Aug, [address] [id number] Jun, IMMUNIZATIONS No Known Immunizations SOCIAL HISTORY Never Assessed REASON FOR VISIT Refill request PLAN OF CARE VITAL SIGNS MEDICATIONS Medication Instructions Dosage Frequency Start Date End Date Duration Status Pen Kinta 31 gauge subcutaneously twice a day DX: E11.8 as directed Active RESULTS No Results PROCEDURES No Known procedures INSTRUCTIONS MEDICATIONS ADMINISTERED No Known Medications MEDICAL (GENERAL) HISTORY Type Description Date Medical History diabetes mellitus Medical History hyperlipidemia Medical History hypertension Medical History Anxiety disorder Medical History Blood Clotting Disorder- Dr Galvan at [facility] Medical History Possible Anemia (currently under work up) - Dr Galvan [facility] Medical History irregular heart beat-sees dr. hassan Medical History history of pancreatitis Medical History gerd Medical History History of CVA with residual deficit Medical History Other complicated headache syndrome Medical History Stokes syndrome Surgical History tubal ligation Surgical History section Surgical History cholecystectomy Surgical History Toe Nail Removal x2 Hospitalization History Brain Stem Strokes x5. Has been hospitalized at then transfered to [place]. 2015 Hospitalization History Child Hospitalization History abd pain and shakiness - [facility] ED visit [place] 03/12/17 Hospitalization History [facility] ED for URI 04/16/17 Hospitalization History via [facility] emergency department er 08/16/17 Hospitalization History ER 11/2017
[2018-08-17] MEDS ORDERED: BUP/EPI 0.5% 1:200,000 (SENSORCAINE) 30 ML VIAL ONE (07:42)
[2018-08-17] MEDS ORDERED: DEXAMETHASONE 10 MG/ML (DECADRON) 1 ML VIAL ONE (08:02)
[2018-08-17] MEDS ORDERED: ROCURONIUM 10 MG/ML 5 ML SYRINGE IV ONE (08:02)
[2018-08-17] MEDS ORDERED: LIDOCAINE PF 2% 5 ML (XYLOCAINE) VIAL ONE (08:02)
[2018-08-17] MEDS ORDERED: fentaNYL INJECTION 100 MCG/2 ML AMP ONE (08:02)
[2018-08-17] MEDS ORDERED: proPOfol 200 MG/20 ML (DIPRIVAN) VIAL IV ONE (08:02)
[2018-08-17] MEDS ORDERED: MIDAZOLAM 2 MG/2 ML (VERSED) VIAL ONE (08:02)
[2018-08-17] MEDS ORDERED: ONDANSETRON 4 MG/2 ML (SDV) Z0FRAN ONE (08:02)
[2018-08-17] MEDS ORDERED: SEVOFLURANE (ULTANE) 15 ML INHAL SOLN ONE ×3 (08:02→11:27)
[2018-08-17] MEDS ORDERED: CLINDAMYCIN 600 MG/50 ML IVPB 50 ML IV ONE (08:15)
--- OUTSIDE RECORDS SUMMARY | 2018-08-17 08:20 | XMS REPORT | Continuity of Care Document ---
Author Organization Unknown Address Unknown Allergies Active Description Code Type Severity Reaction Onset Reported/Identified Relationship to Patient Clinical Status Yes Erythromycin Base [id number] Drug Allergy Mild N/A 11/11/2008 Yes codeine [id number] Drug Allergy Unknown N/A 11/14/2008 Yes Penicillins [id number] Drug Allergy Unknown N/A 11/14/2008 Yes nitrofurantoin [id number] Drug Allergy Unknown N/A 11/04/2017 Yes codeine [id number] Drug Allergy Severe BREATHING DIFFI 08/11/2018 Yes Penicillins [id number] Drug Allergy Severe RASH/BREATHING 08/11/2018 Yes erythromycin base [id number] Drug Allergy Mild N/V 08/11/2018 Yes nitrofurantoin [id number] Drug Allergy Mild N/V 08/11/2018 Medications There is no data. Problems Date [...] 09/01/2012 PASTOR CISNEROS MD Ot 794.09 ABN MACHINING AND ASSEMBLY SUPERVISOR FUNCT STUDY NEC 09/01/2012 PASTOR CISNEROS MD [...] CISNEROS MD Ot 530.10 ESOPHAGITIS NOS 09/18/2013 AMELIA WRIGHT, PASTOR Blank Ot 553.3 DIAPHRAGMATIC HERNIA 09/18/2013 AMELIA WRIGHT, PASTOR Blank Ot 599.0 URIN TRACT INFECTION NOS 09/18/2013 PASTOR CISNEROS MD Ot V58.69 OTH MED,LT,CURRENT USE 09/28/2013 MICHELLE WRIGHT, SILVIA E Ot 272.4 HYPERLIPIDEMIA NEC/NOS 09/28/2013 MICHELLE WRIGHT, SILVIA E Ot 305.1 TOBACCO USE DISORDER 09/28/2013 MICHELLE WRIGHT, SILVIA E Ot 388.70 OTALGIA NOS 09/28/2013 MICHELLE WRIGHT, SILVIA E Ot 401.9 HYPERTENSION NOS 09/28/2013 MICHELLE WRIGHT, SILVIA E Ot 438.89 OTH LATE EFFECT-CEREBROVASCULAR DISEASE 09/28/2013 MICHELLE WRIGHT, SILVIA E Ot 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 09/28/2013 MICHELLE WRIGHT, SILVIA E Ot 535.50 UNSP GASTRITIS GASTRODUODENITIS W/O ME 09/28/2013 MICHELLE WRIGHT, SILVIA E Ot 780.60 FEVER, UNSPECIFIED 09/28/2013 MICHELLE WRIGHT, SILVIA E Ot 781.2 ABNORMALITY OF GAIT 09/28/2013 MICHELLE WRIGHT, SILVIA E Ot 785.0 TACHYCARDIA NOS 09/28/2013 MICHELLE WRIGHT, SILVIA E Ot 785.1 PALPITATIONS 09/28/2013 MICHELLE WRIGHT, SILVIA E Ot 787.20 DYSPHAGIA, UNSPECIFIED 09/28/2013 MICHELLE WRIGHT, SILVIA E Ot E942.6 ADV EFF ANTIHYPERTEN AGT 09/28/2013 MICHELLE WRIGHT, SILVIA E Ot E942.9 ADV EFF CARDIOVASC NEC 09/28/2013 MICHELLE WRIGHT, SILVIA E Ot V12.55 PERSONAL HISTORY OF PULMONARY EMBOLISM 09/28/2013 MICHELLE WRIGHT, SILVIA E Ot V57.89 REHABILITATION PROC NEC 12/14/2013 RONAN SOTO MD Ot 466.0 ACUTE BRONCHITIS 12/14/2013 RONAN SOTO MD Ot 786.2 COUGH 01/09/2014 GILBERT GOMEZ MD [...] 05/11/2014 Ot 786.50 05/11/2014 AMELIA WRIGHT, PASTOR Abhay Ot 794.09 05/11/2014 AMELIA WRIGHT, PASTOR Blank Ot 783.1 05/11/2014 AMELIA WRIGHT, PASTOR Abhay Ot 787.3 05/11/2014 AMELIA WRIGHT, PASTOR Abhay Ot 789.09 05/11/2014 AMELIA WRIGHT, PASTOR Abhay Ot 789.1 05/11/2014 AMELIA WRIGHT, PASTOR Blank Ot 723.1 05/11/2014 AMELIA WRIGHT, PASTOR J Ot 729.5 05/11/2014 AMELIA WRIGHT, PASTOR Abhay Ot 719.40 05/11/2014 AMELIA WRIGHT, PASTOR Abhay Ot 780.79 05/11/2014 AMELIA WRIGHT, PASTOR J Ot 782.3 05/11/2014 AMELIA WRIGHT, PASTOR Blank Ot 785.0 05/11/2014 AMELIA WRIGHT, PASTOR Blank Ot 719.40 05/11/2014 AMELIA WRIGHT, PASTOR Blank Ot 780.79 05/11/2014 AMELIA WRIGHT, PASTOR Blank Ot 782.3 05/11/2014 AMELIA WRIGHT, PASTOR Blank Ot 785.0 05/11/2014 AMELIA WRIGHT, PASTOR Blank Ot 305.1 05/11/2014 AMELIA WRIGHT, PASTOR Blank Ot 401.9 05/11/2014 AMELIA WRIGHT, [facility] Ot 428.0 05/11/2014 AMELIA WRIGHT, [facility] Ot 782.3 05/11/2014 AMELIA WRIGHT, [facility] Ot 785.0 05/11/2014 AMELIA WRIGHT, [facility] Ot 786.50 05/11/2014 TRISTAN WRIGHT, JAYASEELAN Ot 397.0 05/11/2014 TRISTAN WRIGHT, JABRUNOSEELAN Ot 401.9 05/11/2014 TRISTAN WRIGHT, JAYASEELAN Ot 424.0 05/11/2014 TRISTAN WRIGHT, JAYASEELAN Ot 786.50 05/11/2014 TRISTAN WRIGHT, JAYASEELAN Ot 401.9 05/11/2014 TRISTAN WRIGHT, JAYASEELAN Ot 786.50 05/11/2014 AMELIA WRIGHT, PASTOR Abhay Ot 251.2 05/11/2014 AMELIA WRIGHT, [facility] Ot 790.29 05/11/2014 AMELIA WRIGHT, PASTOR Abhay Ot 780.39 05/11/2014 AMELIA WRIGHT, PASTOR Abhay Ot 348.89 05/11/2014 AMELIA WRIGHT, [facility] Ot 780.97 05/11/2014 AMELIA WRIGHT, [facility] Ot 781.99 05/11/2014 AMELIA WRIGHT, [facility] Ot 530.81 05/11/2014 AMELIA WRIGHT, PASTOR Abhay Ot 553.3 05/11/2014 AMELIA WRIGHT, [facility] Ot 787.20 05/11/2014 JASON WRIGHT, [facility] Yin Ot 288.60 05/15/2014 Ot 272.4 05/15/2014 [...] Blank Ot 785.0 05/15/2014 AMELIA WRIGHT, PASTOR J [...] JAYASEELAN Ot 786.50 05/15/2014 AMELIA WRIGHT, PASTOR Abhay Ot 251.2 05/15/2014 AMELIA WRIGHT, [facility] Ot 790.29 05/15/2014 AMELIA WRIGHT, [facility] Ot 780.39 05/15/2014 AMELIA WRIGHT, [facility] Ot 348.89 05/15/2014 AMELIA WRIGHT, [facility] Ot 780.97 05/15/2014 AMELIA WRIGHT, [facility] Ot 781.99 05/15/2014 AMELIA WRIGHT, PASTOR J Ot 530.81 05/15/2014 AMELIA WRIGHT, [facility] Ot 553.3 05/15/2014 AMELIA WRIGHT, [facility] Ot 787.20 05/15/2014 JASON WRIGHT, [facility] Ot 288.60 05/15/2014 AMELIA WRIGHT, PASTOR J Ot 530.81 05/15/2014 AMELIA WRIGHT, [facility] Ot 553.3 05/15/2014 AMELIA WRIGHT, [facility] Ot 787.20 05/15/2014 AMELIA WRIGHT, [facility] Ot 348.89 05/15/2014 AMELIA WRIGHT, [facility] Ot 780.97 05/15/2014 AMELIA WRIGHT, [facility] Ot 781.99 05/15/2014 Ot 272.4 05/15/2014 [...] Blank Ot 729.5 05/15/2014 AMELIA WRIGHT, PASTOR J [...] PASTOR J Ot 787.20 05/15/2014 JASON WRIGHT, [facility] Ot 288.60 05/17/2014 AMELIA WRIGHT, PASTOR J Ot 348.89 05/17/2014 AMELIA WRIGHT, PASTOR J Ot 780.97 05/17/2014 AMELIA WRIGHT, PASTOR J Ot 781.99 05/17/2014 AMELIA WRIGHT, PASTOR J Ot 348.89 05/17/2014 AMELIA WRIGHT, PASTOR Blank Ot 780.97 05/17/2014 AMELIA WRIGHT, PASTOR Blank Ot 781.99 05/17/2014 AMELIA WRIGHT, PASTOR Blank Ot 348.89 05/17/2014 AMELIA WRIGHT, PASTOR Blank Ot 780.97 05/17/2014 AMELIA WRIGHT, PASTOR Blank Ot 781.99 05/19/2014 Ot 780.4 DIZZINESS AND [...] 07/26/2014 YUKO GARRETT MD Ot 785.0 07/26/2014 YUOK GARRETT MD Ot 785.1 07/26/2014 YUKO GARRETT [...] Blank Ot 723.1 08/26/2014 AMELIA WRIGHT, PASTOR J Ot 729.5 08/26/2014 AMELIA WRIGHT, PASTOR J Ot 719.40 [...] PASTOR J Ot 348.89 08/26/2014 AMELIA WRIGHT, PASTOR J Ot 780.97 08/26/2014 AMELIA WRIGHT, PASTOR J Ot 781.99 08/26/2014 AMELIA WRIGHT, PASTOR J Ot 530.81 08/26/2014 AMELIA WRIGHT, PASTOR J Ot 553.3 08/26/2014 AMELIA WRIGHT, PASTOR J Ot 787.20 08/26/2014 JASON WRIGHT, GILBERT Yin Ot 238.71 08/26/2014 JASON WRIGHT, GILBERT K Ot 272.4 08/26/2014 JASON WRIGHT, GILBERT K Ot 288.60 08/26/2014 JASON WRIGHT, GILBERT K Ot 401.9 08/26/2014 JASON WRIGHT, GILBERT Esqueda Ot 438.83 08/26/2014 JASNO WRIGHT, GILBERT Esqueda Ot 438.89 08/26/2014 JASON WRIGHT, GILBERT Esqueda Ot 728.87 08/26/2014 JASON WRIGHT, GILBERT Esqueda Ot 785.0 08/26/2014 GILBERT GOMEZ MD Ot V58.69 08/26/2014 GERRY WRIGHT, YUKO Blank [...] JEROD WRIGHT, JACOB F Ot 437.0 09/10/2014 JASON WRIGHT, GILBERT Esqueda Ot 238.71 09/10/2014 JASON WRIGHT, GILBERT Esqueda Ot 272.4 09/10/2014 JASON WRIGHT, GILBERT Esqueda Ot 288.60 09/10/2014 JASON WRIGHT, GILBERT Esqueda Ot 401.9 09/10/2014 JASON WRIGHT, GILBERT Esqueda Ot 438.83 09/10/2014 JASON WRIGHT, GILBERT Esqueda Ot 438.89 09/10/2014 GILBERT GOMEZ MD Ot 728.87 09/10/2014 GILBERT GOMEZ MD Ot 785.0 09/10/2014 GILBERT GOMEZ MD Ot V58.69 10/23/2014 JASON WRIGHT, GILBERT Esqueda Ot 238.71 ESSENTIAL THROMBOCYTHEMIA 10/23/2014 JASON WRIGHT, GILBERT Esqueda Ot 272.4 HYPERLIPIDEMIA NEC/NOS 10/23/2014 GILBERT GOMEZ MD Ot 288.60 LEUKOCYTOSIS, UNSPECIFIED 10/23/2014 GILBERT GOMEZ MD Ot 401.9 HYPERTENSION NOS 10/23/2014 GILBERT GOMEZ MD Ot 438.83 FACIAL WEAKNESS 10/23/2014 GILBERT GOMEZ MD Ot 438.89 OTH LATE EFFECT-CEREBROVASCULAR DISEASE 10/23/2014 GILBERT GOMEZ MD Ot 728.87 MUSCLE WEAKNESS (GENERALIZED) 10/23/2014 GILBERT GOMEZ MD Ot 785.0 TACHYCARDIA NOS 10/23/2014 JASON WRIGHT GILBERT Yin Ot V58.69 OTH MED,LT,CURRENT USE 12/03/2014 PASTOR [...] PASTOR CISNEROS MD Ot 278.00 12/24/2014 PASTOR CISNEORS MD Ot 443.9 12/24/2014 PASTOR CISNEROS MD [...] 01/15/2015 Ot 786.50 01/15/2015 AMELIA WRIGHT, PASTOR Blank Ot 794.09 01/15/2015 AMELIA WRIGHT, PASTOR Blank Ot 783.1 01/15/2015 AMELIA WRIGHT, PASTOR Blank Ot 787.3 01/15/2015 AMELIA WRIGHT, PASTOR Blank Ot 789.09 01/15/2015 AMELIA WRIGHT, PASTOR Blank Ot 789.1 01/15/2015 AMELIA WRIGHT, PASTOR Blank Ot 723.1 01/15/2015 AMELIA WRIGHT, PSATOR Blank Ot 729.5 01/15/2015 AMELIA WRIGHT, PASTOR Blank Ot 719.40 01/15/2015 AMELIA WRIGHT, PASTOR Blank Ot 780.79 01/15/2015 AMELIA WRIGHT, PASTOR J Ot 782.3 01/15/2015 AMELIA WRIGHT, PASTOR Blank Ot 785.0 01/15/2015 AMELIA WRIGHT, PASTOR Blank Ot 719.40 01/15/2015 AMELIA WRIGHT, PASTOR Blank Ot 780.79 01/15/2015 AMELIA WRIGHT, PASTOR Blank Ot 782.3 01/15/2015 AMELIA WRIGHT, PASTOR Blank Ot 785.0 01/15/2015 AMELIA WRIGHT, PASTOR Blank Ot 305.1 01/15/2015 AMELIA WRIGHT, PASTOR Blank Ot 401.9 01/15/2015 AMELIA WRIGHT, PASTOR Blank Ot 428.0 01/15/2015 AMELIA WRIGHT, PASTOR Blank Ot 782.3 01/15/2015 AMELIA WRIGHT, PASTOR J Ot 785.0 01/15/2015 AMELIA WRIGHT, PASTOR J Ot 786.50 01/15/2015 TRISTAN WRIGHT, ALBERTASEGUCCI Ot 397.0 01/15/2015 TRISTAN WRIGHT, JAYASEELAN Ot 401.9 01/15/2015 TRISTAN WRIGHT, JAYASEELAN Ot 424.0 01/15/2015 TRISTAN WRIGHT, JAYASEELAN Ot 786.50 01/15/2015 TRISTAN WRIGHT, JAYASEELAN Ot 401.9 01/15/2015 TRISTAN WRIGHT, JAYASEELAN Ot 786.50 01/15/2015 AMELIA WRIGHT, PASTOR J Ot 251.2 01/15/2015 AMELIA WRIGHT, PASTOR J Ot 790.29 01/15/2015 AMELIA WRIGHT, PASTOR J Ot 780.39 01/15/2015 AMELIA WRIGHT, PASTOR J Ot 348.89 01/15/2015 AMELIA WRIGHT, PASTOR J Ot 780.97 01/15/2015 AMELIA WRIGHT, PASTOR J Ot 781.99 01/15/2015 AMELIA WRIGHT, PASTOR J Ot 530.81 01/15/2015 AMELIA WRIGHT, PASTOR J Ot 553.3 01/15/2015 AMELIA WRIGHT, PASTOR J Ot 787.20 01/15/2015 GERRY WRIGHT, YUKO Blank Ot 401.9 01/15/2015 [facility]Y WR[facility], [facility] Blank Ot 785.0 01/15/2015 GERRY WRIGHT, [facility] Blank Ot 785.1 01/15/2015 GERRY WRIGHT, [facility] Blank Ot 786.05 01/15/2015 JEROD WRIGHT, JACOB Helms Ot 433.21 01/15/2015 JEROD WRIGHT, JACOB F Ot 437.0 01/15/2015 JEROD WRIGHT, JACOB F Ot 433.21 01/15/2015 JEROD WRIGHT, JACOB F Ot 437.0 01/15/2015 JASON WRIGHT, GILBERT Yin Ot 238.71 01/15/2015 JASON WRIGHT, GILBERT K Ot 272.4 01/15/2015 JASON WRIGHT, GILBERT Yin Ot 288.60 01/15/2015 JASON WRIGHT, GILBERT Yin Ot 401.9 01/15/2015 JASON WRIGHT, GILBERT Yin Ot 438.83 01/15/2015 JASON WRIGHT, GILBERT Yin Ot 438.89 01/15/2015 JASON WRIGHT, GILBERT Yin Ot 728.87 01/15/2015 JASON WRIGHT, GILBERT Yin Ot 785.0 01/15/2015 JASON WRIGHT, GILBERT Esqueda Ot V58.69 01/15/2015 AMELIA WRIGHT, PASTOR Blank Ot 250.02 01/15/2015 AMELIA WRIGHT, PASTOR Blank Ot 278.00 01/15/2015 PASTOR CISNEROS MD Ot 443.9 01/15/2015 PASTOR CISNEROS MD Ot V12.54 01/28/2015 GERRY WRIGHT, YUKO Blank Ot I10 01/28/2015 GERRY WRIGHT, YUKO J Ot R00.2 01/28/2015 GERRY WRIGHT, BASARTHUR J Ot R06.02 01/28/2015 GERRY WRIGHT, BASARTHUR J Ot R07.89 02/17/2015 PASTOR CISNEROS MD Ot 250.02 02/17/2015 AMELIA WRIGHT, PASTOR Blank Ot 278.00 02/17/2015 PASTOR CISNEROS MD Ot 443.9 02/17/2015 PASTOR CISNEROS MD Ot V12.54 02/25/2015 PASTOR CISNEROS MD Ot E11.9 02/25/2015 PASTOR CISNEROS MD Ot E66.9 02/25/2015 PASTOR CISNEROS MD Ot I73.9 02/25/2015 PASTOR CISNEROS MD Ot Z86.73 03/23/2015 PASTOR CISNEROS MD Ot E11.9 TYPE 2 DIABETES MELLITUS WITHOUT COMPLIC 03/23/2015 PASTOR CISNEROS MD Ot E66.9 OBESITY, UNSPECIFIED 03/23/2015 PASTOR CISNEROS MD Ot I73.9 PERIPHERAL VASCULAR DISEASE, UNSPECIFIED 03/23/2015 PASTOR CISNEROS MD Ot Z86.73 PRSNL HX OF TIA (TIA), AND CEREB INFRC W 03/29/2015 JOSE ADLER DO Ot E87.6 HYPOKALEMIA 03/29/2015 JOSE ADLER DO Ot F17.210 NICOTINE DEPENDENCE, CIGARETTES, UNCOMPL 03/29/2015 JOSE ADLER DO Ot R20.2 PARESTHESIA OF SKIN 03/29/2015 JOSE ADLER DO Ot Z79.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 03/29/2015 JOSE ADLER DO Ot Z79.899 OTHER JAIL (CURRENT) DRUG THERAPY 03/29/2015 JOSE ADLER DO Ot Z86.73 PRSNL HX OF TIA (TIA), AND CEREB INFRC W 04/03/2015 PASTOR CISNEROS MD Ot E11.9 04/03/2015 PASTOR CISNEROS MD Ot Z79.4 05/13/2015 PASTOR CISNEROS MD Ot E11.9 05/13/2015 PASTOR CISNEROS MD Ot M79.662 05/13/2015 PATSOR CISNEROS MD Ot R51 05/22/2015 THELMA FARAH DRUM HANDLER Ot R20.2 PARESTHESIA OF SKIN 05/22/2015 THELMA FARAH DRUM HANDLER Ot R42 DIZZINESS AND GIDDINESS 05/22/2015 THELMA FARAH DRUM HANDLER Ot Z79.02 JAIL (CURRENT) USE OF ANTITHROMBOTI 05/22/2015 THELMA FARAH DRUM HANDLER Ot Z79.82 JAIL (CURRENT) USE OF ASPIRIN 05/24/2015 RONAN SOTO MD A Ot E11.9 TYPE 2 DIABETES MELLITUS WITHOUT COMPLIC 05/24/2015 RONAN SOTO MD Ot F17.210 NICOTINE DEPENDENCE, CIGARETTES, UNCOMPL 05/24/2015 RONAN SOTO MD Ot R20.2 PARESTHESIA OF SKIN 05/24/2015 RONAN SOTO MD Ot Z79.82 JAIL (CURRENT) USE OF ASPIRIN 05/24/2015 RONAN SOTO MD A Ot Z79.899 OTHER TELEVISION REPORTER (CURRENT) DRUG THERAPY 06/04/2015 RONAN SOTO MD [...] HYPERTENSION 07/25/2015 GILBERT GOMEZ MD Ot Z79.02 TELEVISION REPORTER (CURRENT) USE OF ANTITHROMBOTI 07/25/2015 GILBERT GOMEZ MD Ot Z79.82 JAIL (CURRENT) [...] HYPERTENSION 08/06/2015 GILBERT GOMEZ MD Ot Z79.02 JAIL (CURRENT) USE OF ANTITHROMBOTI 08/06/2015 GILBERT GOMEZ MD Ot Z79.82 JAIL (CURRENT) USE OF ASPIRIN 09/03/2015 GILBERT GOMEZ MD Ot 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) THROMBOCYTHEMIA 09/03/2015 GILBERT GOMEZ MD Ot D72.829 ELEVATED WHITE BLOOD CELL COUNT, UNSPECI 09/03/2015 GILBERT GOEMZ MD Ot E78.5 HYPERLIPIDEMIA, UNSPECIFIED 09/03/2015 GILBERT GOMEZ MD Ot I10 ESSENTIAL (PRIMARY) HYPERTENSION 09/03/2015 GILBERT GOMEZ MD Ot 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 09/03/2015 GILBERT GOMEZ MD Ot I69.998 OTHER SEQUELAE FOLLOWING UNSPECIFIED CER 09/03/2015 GILBERT GOMEZ MD Ot M62.81 MUSCLE WEAKNESS (GENERALIZED) 09/03/2015 GILBERT GOMEZ MD Ot R00.0 TACHYCARDIA, UNSPECIFIED 09/03/2015 GILBERT GOMEZ MD Ot Z79.899 OTHER JAIL (CURRENT) DRUG THERAPY 09/10/2015 NATHAN WRIGHT, [employer] [employer] Ot D72.829 ELEVATED WHITE BLOOD CELL COUNT, UNSPECI 09/10/2015 AKBAR EVANS MD Ot F17.210 NICOTINE DEPENDENCE, CIGARETTES, UNCOMPL 09/10/2015 AKBAR EVANS MD Ot R11.0 NAUSEA 09/10/2015 AKBAR EVANS MD Ot R19.7 DIARRHEA, UNSPECIFIED 09/10/2015 NATHAN WRIGHT, [facility] [employer] Ot R42 DIZZINESS AND GIDDINESS 09/10/2015 NATHAN WRIGHT, [employer] Ot R74.8 ABNORMAL LEVELS OF OTHER SERUM ENZYMES 09/10/2015 Ot 272.4 HYPERLIPIDEMIA NEC/NOS 09/10/2015 Ot 401.9 HYPERTENSION NOS 09/10/2015 Ot V58.69 OTH MED,LT,CURRENT USE 09/10/2015 Ot 530.81 ESOPHAGEAL REFLUX 09/10/2015 [...] PAIN, UNSPECIFIED SITE 09/10/2015 Ot 719.43 JOINT PAIN-FOREARM 09/10/2015 Ot 719.46 JOINT PAIN-L/LEG 09/10/2015 Ot 784.0 HEADACHE 09/10/2015 Ot 847.0 SPRAIN OF NECK 09/10/2015 Ot E000.8 OTHER EXTERNAL CAUSE STATUS 09/10/2015 Ot E819.9 TRAFFIC ACC NOS- PERS NOS 09/10/2015 Ot V76.12 OTH SCREEN MAMMO- MALIGN NEOPLASM OF MIKE 09/10/2015 Ot 338.29 OTHER [...] 780.39 OTHER CONVULSIONS 09/10/2015 Ot 794.09 ABN MACHINING AND ASSEMBLY SUPERVISOR FUNCT STUDY NEC 09/10/2015 Ot 794.8 ABN LIVER FUNCTION STUDY 09/10/2015 Ot 368.9 VISUAL DISTURBANCE NOS 09/10/2015 Ot 780.2 SYNCOPE AND COLLAPSE 09/10/2015 Ot 780.79 OTH MALAISE FATIGUE 09/10/2015 Ot 786.2 COUGH 09/10/2015 Ot 786.50 CHEST PAIN NOS 09/10/2015 AMELIA WRIGHT, PASTOR Blank Ot 794.09 ABN MACHINING AND ASSEMBLY SUPERVISOR FUNCT STUDY NEC 09/10/2015 AMELIA WRIGHT, PASTOR [...] PASTOR Blank Ot 719.40 JOINT PAIN-UNSPEC 09/10/2015 PASTOR CISNEROS [...] NOS 09/10/2015 AMELIA WRIGHT, PASTOR Blank Ot 305.1 TOBACCO USE DISORDER 09/10/2015 AMELIA WRIGHT, PASTOR Blank Ot 401.9 HYPERTENSION NOS 09/10/2015 AMELIA WRIGHT, PASTOR Blank Ot 428.0 CONGESTIVE HEART FAILURE NOS 09/10/2015 PASTOR CISNEROS MD Ot 782.3 EDEMA 09/10/2015 PASTOR CISNEROS MD Ot 785.0 TACHYCARDIA NOS 09/10/2015 AMELIA WRIGHT, PASTOR Blank Ot 786.50 CHEST PAIN NOS 09/10/2015 TRISTAN WRIGHT, SULEMA Ot 397.0 TRICUSPID VALVE DISEASE 09/10/2015 SULEMA HUDSON MD Ot 401.9 HYPERTENSION NOS 09/10/2015 TRISTAN WRIGHT, SULEMA Ot 424.0 MITRAL VALVE DISORDER 09/10/2015 SULEMA HUDSON MD Ot 786.50 CHEST PAIN NOS 09/10/2015 SULEMA HUDSON MD Ot 401.9 HYPERTENSION NOS 09/10/2015 TRISTAN WRIGHT, SULEMA Ot 786.50 CHEST PAIN NOS 09/10/2015 AMELIA WRIGHT, PASTOR Blank Ot 251.2 HYPOGLYCEMIA NOS 09/10/2015 AMELIA WRIGHT, PASTOR Blank Ot 790.29 OTHER ABNORMAL GLUCOSE 09/10/2015 AMELIA WRIGHT, PASTOR Blank Ot 780.39 OTHER CONVULSIONS 09/10/2015 AMELIA WRIGHT, PASTOR Blank Ot 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 09/10/2015 AMELIA WRIGHT, PASTOR Blank Ot 780.97 ALTERED MENTAL STATUS 09/10/2015 AMELIA WRIGHT, PASTOR Blank Ot 781.99 NERV/MUSCULOSKEL SYS SYMP NEC 09/10/2015 AMELIA WRIGHT, PASTOR Blank Ot 530.81 ESOPHAGEAL REFLUX 09/10/2015 AMELIA WRIGHT, PASTOR Blank Ot 553.3 DIAPHRAGMATIC HERNIA 09/10/2015 AMELIA WRIGHT, PASTOR Blank Ot 787.20 DYSPHAGIA, UNSPECIFIED 09/10/2015 GERRY WRIGHT, YUKO Blank Ot 401.9 HYPERTENSION NOS 09/10/2015 GERRY WRIGHT, YUKO Blank Ot 785.0 TACHYCARDIA NOS 09/10/2015 YUKO GARRETT MD Ot 785.1 PALPITATIONS 09/10/2015 GERRY WRIGHT, YUKO Blank Ot 786.05 SHORTNESS OF BREATH 09/10/2015 JEROD WRIGHT, JACOB Helms Ot 433.21 VERTEBRAL [...] COMPLIC 09/10/2015 PASTOR CISNEROS MD Ot Z79.4 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 09/10/2015 PASTOR CISNEROS [...] M79.662 PAIN IN LEFT LOWER LEG 09/10/2015 AMELIA WRIGHT, PASTOR Blank Ot R51 HEADACHE 09/10/2015 GILBERT GOMEZ MD [...] ANTITHROMBOTI 09/10/2015 GILBERT GOMEZ MD, Ot Z79.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 09/10/2015 NATHAN WRIGHT, [facility] Ot D72.829 ELEVATED WHITE BLOOD CELL COUNT, UNSPECI 09/10/2015 AKBAR EVANS MD Ot F17.210 NICOTINE DEPENDENCE, CIGARETTES, UNCOMPL 09/10/2015 AKBAR EVANS MD Ot R11.0 NAUSEA 09/10/2015 AKBAR EVANS MD Ot R19.7 DIARRHEA, UNSPECIFIED 09/10/2015 AKBAR EVANS MD Ot R42 DIZZINESS AND GIDDINESS 09/10/2015 NATHAN [...] 10/02/2015 GILBERT GOMEZ MD Ot Z79.899 OTHER TELEVISION REPORTER (CURRENT) DRUG THERAPY 10/05/2015 JOSE ADLER DO [...] I69.998 OTHER SEQUELAE FOLLOWING UNSPECIFIED CER 10/29/2015 GIBLERT GOMEZ MD Ot M62.81 MUSCLE WEAKNESS (GENERALIZED) 10/29/2015 GILBERT GOMEZ MD Ot R00.0 TACHYCARDIA, UNSPECIFIED 10/29/2015 GILBERT GOMEZ MD Ot Z79.899 OTHER TELEVISION REPORTER (CURRENT) DRUG THERAPY 10/30/2015 GILBERT GOMEZ MD [...] 10/30/2015 GILBERT GOMEZ MD Ot Z79.899 OTHER TELEVISION REPORTER (CURRENT) DRUG THERAPY 11/04/2015 GILBERT GOMEZ MD Ot 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) THROMBOCYTHEMIA 11/04/2015 GILBERT GOMEZ MD Ot D72.829 ELEVATED WHITE BLOOD CELL COUNT, UNSPECI 11/04/2015 GILBERT GOMEZ MD Ot E78.5 HYPERLIPIDEMIA, UNSPECIFIED 11/04/2015 GILBERT GMOEZ MD Ot I10 ESSENTIAL (PRIMARY) HYPERTENSION 11/04/2015 GILBERT GOMEZ MD Ot 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 11/04/2015 GILBERT GOMEZ MD, Ot I69.998 OTHER SEQUELAE FOLLOWING UNSPECIFIED CER 11/04/2015 GILBERT GOMEZ MD, Ot M62.81 MUSCLE WEAKNESS (GENERALIZED) 11/04/2015 GILBERT GOMEZ MD Ot R00.0 TACHYCARDIA, UNSPECIFIED 11/04/2015 GILBERT GOMEZ MD Ot Z79.899 OTHER TELEVISION REPORTER (CURRENT) DRUG THERAPY 12/11/2015 GILBERT GOMEZ MD, [...] MD Ot M62.81 MUSCLE WEAKNESS (GENERALIZED) 12/11/2015 GIBLERT GOMEZ MD Ot R00.0 TACHYCARDIA, UNSPECIFIED 12/11/2015 GILBERT GOMEZ MD Ot Z79.899 OTHER TELEVISION REPORTER (CURRENT) DRUG THERAPY 12/19/2015 GILBERT GOMEZ MD Ot 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) THROMBOCYTHEMIA 12/19/2015 JASON MD, GILBERT K Ot D72.829 ELEVATED [...] 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) THROMBOCYTHEMIA 01/02/2016 GILBERT GOMEZ MD, Ot D72.829 ELEVATED WHITE BLOOD CELL COUNT, UNSPECI 01/02/2016 GILBERT GOMEZ MD, Ot E78.5 HYPERLIPIDEMIA, UNSPECIFIED 01/02/2016 GILBERT GOMEZ MD Ot I10 ESSENTIAL (PRIMARY) HYPERTENSION 01/02/2016 GILBERT GOMEZ MD Ot 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 01/02/2016 GILBERT GOMEZ MD Ot I69.998 OTHER SEQUELAE FOLLOWING UNSPECIFIED CER 01/02/2016 GILBERT GOMEZ MD Ot M62.81 MUSCLE WEAKNESS (GENERALIZED) 01/02/2016 GILBERT GOMEZ MD Ot R00.0 TACHYCARDIA, UNSPECIFIED 01/02/2016 GILBERT GOMEZ MD Ot Z79.899 OTHER TELEVISION REPORTER (CURRENT) DRUG THERAPY 03/17/2016 GILBERT GOMEZ MD [...] 03/17/2016 GILBERT GOMEZ MD Ot Z79.899 OTHER TELEVISION REPORTER (CURRENT) DRUG THERAPY 03/23/2016 Ot 272.4 HYPERLIPIDEMIA NEC/NOS 03/23/2016 Ot 401.9 HYPERTENSION NOS 03/23/2016 Ot V58.69 OTH MED,LT,CURRENT USE 03/23/2016 Ot 530.81 ESOPHAGEAL REFLUX 03/23/2016 [...] PAIN, UNSPECIFIED SITE 03/23/2016 Ot 719.43 JOINT PAIN-FOREARM 03/23/2016 Ot 719.46 JOINT PAIN-L/LEG 03/23/2016 Ot 784.0 HEADACHE 03/23/2016 Ot 847.0 SPRAIN OF NECK 03/23/2016 Ot E000.8 OTHER EXTERNAL CAUSE STATUS 03/23/2016 Ot E819.9 TRAFFIC ACC NOS- PERS NOS 03/23/2016 Ot V76.12 OT SCREEN MAMMO- MALIGN NEOPLASM OF [place]KE 03/23/2016 Ot 338.29 OTHER [...] 780.39 OTHER CONVULSIONS 03/23/2016 Ot 794.09 ABN MACHINING AND ASSEMBLY SUPERVISOR FUNCT STUDY NEC 03/23/2016 Ot 794.8 ABN LIVER FUNCTION STUDY 03/23/2016 Ot 368.9 VISUAL DISTURBANCE NOS 03/23/2016 Ot 780.2 SYNCOPE AND COLLAPSE 03/23/2016 Ot 780.79 OTH MALAISE FATIGUE 03/23/2016 Ot 786.2 COUGH 03/23/2016 Ot 786.50 CHEST PAIN NOS 03/23/2016 AMELIA WRIGHT, PASTOR Blank Ot 794.09 ABN MACHINING AND ASSEMBLY SUPERVISOR FUNCT STUDY NEC 03/23/2016 AMELIA WRIGHT, PASTOR Blank Ot 783.1 ABNORMAL WEIGHT GAIN 03/23/2016 PASTOR CISNEROS MD Ot 787.3 FLATUL/ERUCTAT/GAS PAIN 03/23/2016 AMELIA WRIGHT, PASTOR Blank Ot 789.09 ABDOMINAL PAIN, OTHER SPECIFIED SITE 03/23/2016 PASTOR CISNEROS MD Ot 789.1 HEPATOMEGALY 03/23/2016 AMELIA WRIGHT, PASTOR Blank Ot 723.1 CERVICALGIA 03/23/2016 PASTOR CISNEROS MD Ot 729.5 PAIN IN LIMB 03/23/2016 AMELIA WRIGHT, PASTOR Blank Ot 719.40 JOINT PAIN-UNSPEC 03/23/2016 PASTOR CISNEROS [...] MD Ot R06.02 SHORTNESS OF BREATH 03/23/2016 GERRY WRIGHT, YUKO Blank Ot R07.89 OTHER CHEST PAIN 03/23/2016 PASTOR CISNEROS MD Ot E11.9 TYPE 2 DIABETES MELLITUS WITHOUT COMPLIC 03/23/2016 PASTOR CISNEROS MD Ot Z79.4 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 03/23/2016 PASTOR CISNEROS [...] MD Ot R51 HEADACHE 03/23/2016 GILBERT GOMEZ MD Ot 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) THROMBOCYTHEMIA 03/23/2016 GILBERT GOMEZ MD Ot D68.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 03/23/2016 GILBERT GOMEZ MD Ot D72.829 ELEVATED [...] 03/23/2016 GILBERT GOMEZ MD Ot Z79.899 OTHER TELEVISION REPORTER (CURRENT) DRUG THERAPY 06/15/2016 GILBERT GOMEZ MD Ot 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) THROMBOCYTHEMIA 06/15/2016 GILBERT GOMEZ MD Ot D72.829 ELEVATED WHITE BLOOD CELL COUNT, UNSPECI 06/15/2016 GILBERT GOMEZ MD Ot E78.5 HYPERLIPIDEMIA, UNSPECIFIED 06/15/2016 GILBERT GOMEZ MD Ot I10 ESSENTIAL (PRIMARY) HYPERTENSION 06/15/2016 GILBERT GOMEZ MD Ot 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 06/15/2016 GILBERT GOMEZ MD Ot I69.998 OTHER SEQUELAE FOLLOWING UNSPECIFIED CER 06/15/2016 GILBERT GOMEZ MD Ot M62.81 MUSCLE WEAKNESS (GENERALIZED) 06/15/2016 GILBERT GOMEZ MD Ot R00.0 TACHYCARDIA, UNSPECIFIED 06/15/2016 GILBERT GOMEZ MD Ot Z79.899 OTHER JAIL [...] PAIN, UNSPECIFIED SITE 06/30/2016 Ot 719.43 JOINT PAIN-FOREARM 06/30/2016 Ot 719.46 JOINT PAIN-L/LEG 06/30/2016 Ot 784.0 HEADACHE 06/30/2016 Ot 847.0 SPRAIN OF NECK 06/30/2016 Ot E000.8 OTHER EXTERNAL CAUSE STATUS 06/30/2016 Ot E819.9 TRAFFIC ACC NOS- PERS NOS 06/30/2016 Ot V76.12 OTH SCREEN MAMMO- MALIGN NEOPLASM OF [place]KE 06/30/2016 Ot 338.29 OTHER [...] 780.39 OTHER CONVULSIONS 06/30/2016 Ot 794.09 ABN MACHINING AND ASSEMBLY SUPERVISOR FUNCT STUDY NEC 06/30/2016 Ot 794.8 ABN LIVER FUNCTION STUDY 06/30/2016 Ot 368.9 VISUAL DISTURBANCE NOS 06/30/2016 Ot 780.2 SYNCOPE AND COLLAPSE 06/30/2016 Ot 780.79 OTH MALAISE FATIGUE 06/30/2016 Ot 786.2 COUGH 06/30/2016 Ot 786.50 CHEST PAIN NOS 06/30/2016 AMELIA WRGIHT, PASTOR Blank Ot 794.09 ABN MACHINING AND ASSEMBLY SUPERVISOR FUNCT STUDY NEC 06/30/2016 AMELIA WRIGHT, PASTOR Blank Ot 783.1 ABNORMAL WEIGHT GAIN 06/30/2016 AMELIA WRIGHT, PASTOR Blank Ot 787.3 FLATUL/ERUCTAT/GAS PAIN 06/30/2016 PASTOR CISNEROS MD Ot 789.09 ABDOMINAL PAIN, [...] NOS 06/30/2016 AMELIA WRIGHT, PASTOR Blank Ot 719.40 JOINT PAIN-UNSPEC 06/30/2016 PASTOR CISNEROS [...] WRIGHT, SULEMA Ot 401.9 HYPERTENSION NOS 06/30/2016 TRISTAN WRIGHT, ADINAELAN Ot 424.0 MITRAL VALVE DISORDER 06/30/2016 TRISTAN WRIGHT, ADINAELAN Ot 786.50 CHEST PAIN NOS 06/30/2016 TRISTAN WRIGHT, SULEMA Ot 401.9 HYPERTENSION NOS 06/30/2016 TRISTAN WRIGHT, SULEMA Ot 786.50 CHEST PAIN NOS 06/30/2016 PASTOR [...] GOMEZ MD Ot E78.5 HYPERLIPIDEMIA, UNSPECIFIED 06/30/2016 GIBLERT GOMEZ MD Ot F17.210 NICOTINE DEPENDENCE, CIGARETTES, UNCOMPL 06/30/2016 GILBERT GOMEZ MD, Ot I10 ESSENTIAL (PRIMARY) HYPERTENSION 06/30/2016 GILBERT GOMEZ MD, Ot Z79.02 TELEVISION REPORTER (CURRENT) USE OF ANTITHROMBOTI 06/30/2016 GILBERT GOMEZ MD, Ot Z79.82 JAIL (CURRENT) USE OF ASPIRIN 06/30/2016 GILBERT GOMEZ [...] M62.81 MUSCLE WEAKNESS (GENERALIZED) 06/30/2016 GILBERT GOMEZ MD, Ot R00.0 TACHYCARDIA, UNSPECIFIED 06/30/2016 GILBERT GOMEZ MD, Ot Z79.899 OTHER TELEVISION REPORTER (CURRENT) DRUG THERAPY 06/30/2016 GILBERT GOMEZ MD, Ot 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 [...] M62.81 MUSCLE WEAKNESS (GENERALIZED) 06/30/2016 GILBERT GOMEZ MD, Ot R00.0 TACHYCARDIA, UNSPECIFIED 06/30/2016 GILBERT GOMEZ MD, Ot Z79.899 OTHER TELEVISION REPORTER (CURRENT) DRUG THERAPY 06/30/2016 Ot 530.81 ESOPHAGEAL [...] PAIN, UNSPECIFIED SITE 06/30/2016 Ot 719.43 JOINT PAIN-FOREARM 06/30/2016 Ot 719.46 JOINT PAIN-L/LEG 06/30/2016 Ot 784.0 HEADACHE 06/30/2016 Ot 847.0 SPRAIN OF NECK 06/30/2016 Ot E000.8 OTHER EXTERNAL CAUSE STATUS 06/30/2016 Ot E819.9 TRAFFIC ACC NOS- PERS NOS 06/30/2016 Ot V76.12 OTH SCREEN MAMMO- MALIGN NEOPLASM OF [place] 06/30/2016 Ot 338.29 OTHER [...] 780.39 OTHER CONVULSIONS 06/30/2016 Ot 794.09 ABN MACHINING AND ASSEMBLY SUPERVISOR FUNCT STUDY NEC 06/30/2016 Ot 794.8 ABN LIVER FUNCTION STUDY 06/30/2016 Ot 368.9 VISUAL DISTURBANCE NOS 06/30/2016 Ot 780.2 SYNCOPE AND COLLAPSE 06/30/2016 Ot 780.79 OTH MALAISE FATIGUE 06/30/2016 Ot 786.2 COUGH 06/30/2016 Ot 786.50 CHEST PAIN NOS 06/30/2016 AMELIA WRIGHT, PASTOR Blank Ot 794.09 ABN MACHINING AND ASSEMBLY SUPERVISOR FUNCT STUDY NEC 06/30/2016 AMELIA WRIGHT, PASTOR Blank Ot 783.1 ABNORMAL WEIGHT GAIN 06/30/2016 PASTOR CISNEROS MD Ot 787.3 FLATUL/ERUCTAT/GAS PAIN 06/30/2016 PASTOR CISNEROS MD Ot 789.09 ABDOMINAL PAIN, [...] CISNEROS MD Ot 553.3 DIAPHRAGMATIC HERNIA 06/30/2016 APSTOR CISNEROS MD Ot 787.20 DYSPHAGIA, UNSPECIFIED 06/30/2016 [...] ANTITHROMBOTI 06/30/2016 GILBERT GOMEZ MD, Ot Z79.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 06/30/2016 GILBERT GOMEZ [...] 06/30/2016 GILBERT GOMEZ MD, Ot Z79.899 OTHER TELEVISION REPORTER (CURRENT) DRUG THERAPY 07/09/2016 GILBERT GOMEZ MD, Ot 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) THROMBOCYTHEMIA 07/09/2016 GILBERT GOMEZ MD, Ot D72.829 ELEVATED WHITE BLOOD CELL COUNT, UNSPECI 07/09/2016 GILBERT GOMEZ MD, Ot E78.5 HYPERLIPIDEMIA, UNSPECIFIED 07/09/2016 GILBERT GOMEZ MD Ot I10 ESSENTIAL (PRIMARY) HYPERTENSION 07/09/2016 GILBERT GOMEZ MD Ot 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 07/09/2016 GILBERT GOMEZ MD Ot I69.998 OTHER SEQUELAE FOLLOWING UNSPECIFIED CER 07/09/2016 GILBERT GOMEZ MD Ot M62.81 MUSCLE WEAKNESS (GENERALIZED) 07/09/2016 GILBERT [...] GROSS HEMATURIA 08/16/2016 PRISCILLA HUNT Ot Z79.02 TELEVISION REPORTER (CURRENT) USE OF ANTITHROMBOTI 08/16/2016 PRISCILLA HUNT Ot Z79.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 08/16/2016 PRISCILLA HUNT Ot Z79.899 OTHER TELEVISION REPORTER (CURRENT) DRUG THERAPY 08/19/2016 PRISCILLA HUNT Ot E11.9 TYPE 2 DIABETES MELLITUS WITHOUT COMPLIC 08/19/2016 PRISCILLA HUNT Ot F17.210 NICOTINE DEPENDENCE, CIGARETTES, UNCOMPL 08/19/2016 PRISCILLA HUNT Ot I10 ESSENTIAL (PRIMARY) HYPERTENSION 08/19/2016 PRISCILLA HUNT Ot N30.01 ACUTE CYSTITIS WITH HEMATURIA 08/19/2016 PRISCILLA HUNT Ot R31.0 GROSS HEMATURIA 08/19/2016 PRISCILLA HUNT Ot Z79.02 JAIL (CURRENT) USE OF ANTITHROMBOTI 08/19/2016 PRISCILLA HUNT Ot Z79.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 08/19/2016 PRISCILLA HUNT Ot Z79.899 OTHER TELEVISION REPORTER (CURRENT) DRUG THERAPY 09/03/2016 GILBERT GOMEZ MD, Ot R42 DIZZINESS AND GIDDINESS 09/03/2016 GILBERT [...] 09/12/2016 GILBERT GOMEZ MD Ot Z79.899 OTHER TELEVISION REPORTER (CURRENT) DRUG THERAPY 11/09/2016 AKBAR EVANS MD Ot E11.65 TYPE 2 DIABETES MELLITUS WITH HYPERGLYCE 11/09/2016 AKBAR EVANS MD Ot E87.8 OTH DISORDERS OF ELECTROLYTE AND FLUID B 11/09/2016 AKBAR EVANS MD Ot F17.210 NICOTINE DEPENDENCE, CIGARETTES, UNCOMPL 11/09/2016 AKBAR EVANS MD Ot F41.9 ANXIETY DISORDER, UNSPECIFIED 11/09/2016 AKBAR EVANS MD Ot I10 ESSENTIAL (PRIMARY) HYPERTENSION 11/09/2016 AKBAR EVANS MD Ot K21.9 GASTRO-ESOPHAGEAL REFLUX DISEASE WITHOUT 11/09/2016 AKBAR EVANS MD Ot M19.90 UNSPECIFIED OSTEOARTHRITIS, UNSPECIFIED 11/09/2016 AKBAR EVANS MD, Ot R42 DIZZINESS AND GIDDINESS 11/09/2016 AKBAR EVANS MD Ot Z79.82 JAIL (CURRENT) USE OF ASPIRIN 11/09/2016 AKBAR EVANS MD Ot Z80.0 FAMILY HISTORY OF MALIGNANT NEOPLASM OF 11/09/2016 AKBAR EVANS MD Ot Z82.49 FAMILY HX OF ISCHEM HEART DIS AND OTH DI 11/09/2016 AKBAR EVANS MD Ot Z86.73 PRSNL HX OF TIA (TIA), AND CEREB INFRC W 11/09/2016 AKBAR EVANS MD Ot Z87.19 PERSONAL HISTORY OF OTHER DISEASES OF TH 11/09/2016 AKBAR EVANS MD Ot Z87.448 PERSONAL HISTORY OF OTHER DISEASES OF UR 11/09/2016 AKBAR EVANS MD Ot Z87.59 PERSONAL HISTORY OF COMP OF PREG, CHLDBR 11/09/2016 AKBAR EVANS MD, Ot Z98.51 TUBAL LIGATION STATUS 11/11/2016 AKBAR EVANS MD Ot E11.65 TYPE 2 DIABETES MELLITUS WITH HYPERGLYCE 11/11/2016 AKBAR EVANS MD Ot E87.8 OTH DISORDERS OF ELECTROLYTE AND FLUID B 11/11/2016 AKBAR EVANS MD Ot F17.210 NICOTINE DEPENDENCE, CIGARETTES, UNCOMPL 11/11/2016 AKBAR EVANS MD Ot F41.9 ANXIETY DISORDER, UNSPECIFIED 11/11/2016 AKBAR EVANS MD Ot I10 ESSENTIAL (PRIMARY) HYPERTENSION 11/11/2016 AKBAR EVANS MD Ot K21.9 GASTRO-ESOPHAGEAL REFLUX DISEASE WITHOUT 11/11/2016 AKBAR EVANS MD Ot M19.90 UNSPECIFIED OSTEOARTHRITIS, UNSPECIFIED 11/11/2016 AKBAR EVANS MD Ot R42 DIZZINESS AND GIDDINESS 11/11/2016 AKBAR EVANS MD Ot Z79.82 JAIL (CURRENT) USE OF ASPIRIN 11/11/2016 AKBAR EVANS MD Ot Z80.0 FAMILY HISTORY OF MALIGNANT NEOPLASM OF 11/11/2016 AKBAR EVANS MD, Ot Z82.49 FAMILY HX OF ISCHEM HEART DIS AND OTH DI 11/11/2016 AKBAR EVANS MD Ot Z86.73 PRSNL HX OF TIA (TIA), AND CEREB INFRC W 11/11/2016 AKBAR EVANS MD, Ot Z87.19 PERSONAL HISTORY OF OTHER DISEASES OF TH 11/11/2016 AKBAR EVANS MD, Ot Z87.448 PERSONAL HISTORY OF OTHER DISEASES OF UR 11/11/2016 AKBAR EVANS MD, Ot Z87.59 PERSONAL HISTORY OF COMP OF PREG, CHLDBR 11/11/2016 AKBAR EVANS MD, Ot Z98.51 TUBAL LIGATION STATUS 11/12/2016 GILBERT GOMEZ MD Ot R42 DIZZINESS AND GIDDINESS 11/12/2016 GILBERT GOMEZ MD Ot R51 HEADACHE 12/02/2016 IGOR ARANA MD, [...] 12/02/2016 IGOR ARANA MD Ot Z79.899 OTHER TELEVISION REPORTER (CURRENT) DRUG THERAPY 12/21/2016 IGOR ARANA MD, Ot 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) THROMBOCYTHEMIA 12/21/2016 IGOR ARANA MD, Ot D72.829 ELEVATED WHITE BLOOD CELL COUNT, UNSPECI 12/21/2016 IGOR ARANA MD, Ot E78.5 HYPERLIPIDEMIA, UNSPECIFIED 12/21/2016 IGOR ARANA MD Ot I10 ESSENTIAL (PRIMARY) HYPERTENSION 12/21/2016 IGOR ARANA MD Ot 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 12/21/2016 IGOR ARANA MD Ot I69.998 OTHER SEQUELAE FOLLOWING UNSPECIFIED CER 12/21/2016 IGOR ARANA MD, Ot M62.81 MUSCLE WEAKNESS (GENERALIZED) 12/21/2016 IGOR ARANA MD Ot R00.0 TACHYCARDIA, UNSPECIFIED 12/21/2016 IGOR ARANA MD, Ot Z79.899 OTHER JAIL (CURRENT) DRUG THERAPY 02/11/2017 IGOR ARANA MD, [...] 02/11/2017 IGOR ARANA MD, Ot Z79.899 OTHER JAIL (CURRENT) DRUG THERAPY 03/12/2017 PRISCILLA HUNT Ot [...] BLOOD CELL COUNT, UNSPECI 03/20/2017 IGOR ARANA MD Ot E78.5 HYPERLIPIDEMIA, UNSPECIFIED 03/20/2017 IGOR ARANA MD Ot I10 ESSENTIAL (PRIMARY) HYPERTENSION 03/20/2017 IGOR ARANA MD Ot 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 03/20/2017 IGOR ARANA MD Ot I69.998 OTHER SEQUELAE FOLLOWING UNSPECIFIED CER 03/20/2017 IGOR ARANA MD Ot M62.81 MUSCLE WEAKNESS (GENERALIZED) 03/20/2017 IGOR ARANA MD Ot R00.0 TACHYCARDIA, UNSPECIFIED 03/20/2017 IGOR ARANA MD Ot Z79.899 OTHER TELEVISION REPORTER (CURRENT) DRUG THERAPY 03/24/2017 PRISCILLA HUNT Ot E11.9 TYPE 2 DIABETES MELLITUS WITHOUT COMPLIC 03/24/2017 PRISCILLA HUNT Ot E86.9 VOLUME DEPLETION, UNSPECIFIED 03/24/2017 PRISCILLA HUNT Ot F17.210 NICOTINE DEPENDENCE, CIGARETTES, UNCOMPL 03/24/2017 PRISCILLA HUNT Ot F41.9 ANXIETY DISORDER, UNSPECIFIED 03/24/2017 PRISCILLA HUNT Ot G43.909 MIGRAINE, UNSP, NOT INTRACTABLE, WITHOUT 03/24/2017 CHEYENNE PA, PRISCILLA L Ot I10 ESSENTIAL (PRIMARY) HYPERTENSION 03/24/2017 PRISCILLA HUNT Ot K21.9 GASTRO-ESOPHAGEAL REFLUX DISEASE WITHOUT 03/24/2017 PRISCILLA HUNT Ot R42 DIZZINESS AND GIDDINESS 03/24/2017 PRISCILLA HUNT Ot R93.5 ABN FINDINGS ON DX IMAGING OF ABD REGION 03/24/2017 PRISCILLA HUNT Ot Z79.82 JAIL (CURRENT) USE OF ASPIRIN 03/24/2017 PRISCILLA HUNT [...] NICOTINE DEPENDENCE, CIGARETTES, UNCOMPL 04/09/2017 AKBAR EVANS MD, Ot F41.9 ANXIETY DISORDER, UNSPECIFIED 04/09/2017 AKBAR EVANS MD Ot I10 ESSENTIAL (PRIMARY) HYPERTENSION 04/09/2017 AKBAR EVANS MD, Ot K21.9 GASTRO-ESOPHAGEAL REFLUX DISEASE WITHOUT 04/09/2017 AKBAR EVANS MD Ot M19.90 UNSPECIFIED OSTEOARTHRITIS, UNSPECIFIED 04/09/2017 AKBAR EVANS MD, Ot R42 DIZZINESS AND GIDDINESS 04/09/2017 AKBAR EVANS MD, Ot Z79.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 04/09/2017 AKBAR EVANS MD, Ot Z80.0 FAMILY HISTORY [...] Z98.51 TUBAL LIGATION STATUS 04/17/2017 GWEN RAMOS MD, Ot E11.9 TYPE 2 DIABETES MELLITUS WITHOUT COMPLIC 04/17/2017 GWEN RAMOS MD Ot F17.210 NICOTINE DEPENDENCE, CIGARETTES, UNCOMPL 04/17/2017 GWEN RAMOS MD Ot F41.9 ANXIETY DISORDER, UNSPECIFIED 04/17/2017 GWEN RAMOS MD Ot G43.909 MIGRAINE, UNSP, NOT INTRACTABLE, WITHOUT 04/17/2017 GWEN RAMOS MD Ot I10 ESSENTIAL (PRIMARY) HYPERTENSION 04/17/2017 GWEN RAMOS MD, Ot J06.9 ACUTE UPPER RESPIRATORY INFECTION, UNSPE 04/17/2017 GWEN RAMOS MD, Ot J44.9 CHRONIC OBSTRUCTIVE PULMONARY DISEASE, U 04/17/2017 GWEN RAMOS MD Ot R05 COUGH 04/17/2017 GWEN RAMOS MD Ot R07.81 PLEURODYNIA 04/17/2017 GWEN RAMOS MD Ot Z79.01 JAIL (CURRENT) USE OF ANTICOAGULANT 04/17/2017 GWEN RAMOS MD, Ot Z79.82 JAIL (CURRENT) USE OF ASPIRIN 04/17/2017 RICHARD MD, GWEN J Ot Z82.49 FAMILY HX OF ISCHEM HEART [...] PLEURODYNIA 04/18/2017 GWEN RAMOS MD Ot Z79.01 TELEVISION REPORTER (CURRENT) USE OF ANTICOAGULANT 04/18/2017 GWEN RAMOS MD Ot Z79.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 04/18/2017 GWEN RAMOS [...] J44.9 CHRONIC OBSTRUCTIVE PULMONARY DISEASE, U 04/28/2017 HIPOLITOLIDIA GALARZAINE Shefali DRUM HANDLER Ot R91.1 SOLITARY PULMONARY NODULE 05/09/2017 HIPOLITOLIDIA GALARZAINE E DRUM HANDLER Ot J30.2 OTHER SEASONAL ALLERGIC RHINITIS 05/09/2017 HIPOLITOLIDIA GALARZAINE E DRUM HANDLER Ot J44.9 CHRONIC OBSTRUCTIVE PULMONARY DISEASE, U 05/09/2017 HIPOLITOLIDIA GALARZAINE E DRUM HANDLER Ot R91.1 SOLITARY PULMONARY NODULE 05/09/2017 HIPOLITOLIDIA GALARZAINE E DRUM HANDLER Ot J30.2 OTHER SEASONAL ALLERGIC RHINITIS 05/09/2017 HIPOLITO MIRELLA E DRUM HANDLER Ot J44.9 CHRONIC OBSTRUCTIVE PULMONARY DISEASE, U 05/09/2017 HIPOLITOLIDIA GALARZAINE Shefali DRUM HANDLER Ot R91.1 SOLITARY PULMONARY NODULE 06/13/2017 HIPOLITOLIDIA GALARZAINE Shefali DRUM HANDLER Ot J30.2 OTHER SEASONAL ALLERGIC RHINITIS 06/13/2017 LIDIA MCMILLANINE Shefali DRUM HANDLER Ot J44.9 CHRONIC OBSTRUCTIVE PULMONARY DISEASE, U 06/13/2017 LIDIA MCMILLANINE Shefali DRUM HANDLER Ot R91.1 SOLITARY PULMONARY NODULE 06/24/2017 SOTERO UHIZAR R DRUM HANDLER Ot K43.9 VENTRAL HERNIA WITHOUT OBSTRUCTION OR GA 06/24/2017 HUIZAR SOTERO R DRUM HANDLER Ot R16.0 HEPATOMEGALY, NOT ELSEWHERE CLASSIFIED 06/29/2017 SOTERO HUIZAR R DRUM HANDLER Ot K43.9 VENTRAL HERNIA WITHOUT OBSTRUCTION OR GA 06/29/2017 HUIZAR, SOTERO R DRUM HANDLER Ot R16.0 HEPATOMEGALY, NOT ELSEWHERE CLASSIFIED 07/09/2017 [...] ARANA MD Ot R00.0 TACHYCARDIA, UNSPECIFIED 07/09/2017 [facility] Ot Z79.899 OTHER TELEVISION REPORTER (CURRENT) DRUG THERAPY 07/14/2017 GAYEMICHAELSOTEROBE Beckham APRN Ot K43.9 VENTRAL HERNIA WITHOUT OBSTRUCTION OR GA 07/14/2017 SOTERO HUIZAR APRN Ot R16.0 HEPATOMEGALY, NOT ELSEWHERE CLASSIFIED 08/16/2017 [...] HEADACHE 08/16/2017 THELMA FARAH APRN Ot Z79.02 JAIL (CURRENT) USE OF ANTITHROMBOTI 08/16/2017 THELMA FARAH APRN Ot Z79.82 JAIL (CURRENT) USE OF ASPIRIN 08/16/2017 THELMA FARAH APRN Ot Z80.0 FAMILY HISTORY OF MALIGNANT NEOPLASM OF 08/16/2017 THELMA FARAH APRN Ot Z82.49 FAMILY HX OF ISCHEM HEART DIS AND OTH DI 08/16/2017 THELMA FARAH APRN Ot Z86.73 PRSNL HX OF TIA (TIA), AND CEREB INFRC W 08/16/2017 THELMA FAARH APRN Ot Z87.19 PERSONAL HISTORY OF OTHER [...] ANTITHROMBOTI 08/18/2017 THELMA FARAH APRN Ot Z79.82 JAIL (CURRENT) USE OF ASPIRIN 08/18/2017 THELMA FARAH [...] APRN Ot Z98.51 TUBAL LIGATION STATUS 09/15/2017 MEGHA WRIGHT, JULIENNE Mejias Ot E11.9 TYPE 2 DIABETES MELLITUS WITHOUT COMPLIC 09/15/2017 JULIENNE CLEVELAND MD Ot E78.00 PURE HYPERCHOLESTEROLEMIA, UNSPECIFIED 09/15/2017 JULIENNE CLEVELAND MD Ot F17.210 NICOTINE DEPENDENCE, CIGARETTES, UNCOMPL 09/15/2017 JULIENNE CLEVELAND MD Ot G43.909 MIGRAINE, UNSP, NOT INTRACTABLE, WITHOUT 09/15/2017 JULIENNE CLEVELAND MD Ot I10 ESSENTIAL (PRIMARY) HYPERTENSION 09/15/2017 JULIENNE CLEVELAND MD Ot R07.89 OTHER CHEST PAIN 09/15/2017 JULIENNE CLEVELAND MD Ot Z79.02 JAIL (CURRENT) USE OF ANTITHROMBOTI 09/15/2017 JULIENNE CLEVELAND MD, Ot Z79.82 JAIL (CURRENT) USE OF ASPIRIN 09/15/2017 JULIENNE CLEVELAND MD Ot Z86.73 PRSNL HX OF TIA (TIA), AND CEREB INFRC W 09/15/2017 JULIENNE CLEVELAND MD Ot Z87.59 PERSONAL HISTORY OF COMP [...] 780.39 OTHER CONVULSIONS 09/29/2017 Ot 794.09 ABN MACHINING AND ASSEMBLY SUPERVISOR FUNCT STUDY NEC 09/29/2017 Ot 794.8 ABN LIVER FUNCTION STUDY 09/29/2017 Ot 368.9 VISUAL DISTURBANCE NOS 09/29/2017 Ot 780.2 SYNCOPE AND COLLAPSE 09/29/2017 Ot 780.79 OTH MALAISE FATIGUE 09/29/2017 Ot 786.2 COUGH 09/29/2017 Ot 786.50 CHEST PAIN NOS 09/29/2017 AMELIA WRIGHT, PASTOR Blank Ot 794.09 ABN MACHINING AND ASSEMBLY SUPERVISOR FUNCT STUDY NEC 09/29/2017 AMELIA WRIGHT, PASTOR Blank Ot 783.1 ABNORMAL WEIGHT GAIN 09/29/2017 PASTOR CISNEROS MD Ot 787.3 FLATUL/ERUCTAT/GAS PAIN 09/29/2017 AMELIA WRIGHT, PASTOR Blank Ot 789.09 ABDOMINAL PAIN, OTHER SPECIFIED SITE 09/29/2017 AMELIA WRIGHT, PASTOR Blank Ot 789.1 HEPATOMEGALY 09/29/2017 PASTOR CISNEROS MD Ot 723.1 CERVICALGIA 09/29/2017 AMELIA WRIGHT, PASTOR [...] Ot 428.0 CONGESTIVE HEART FAILURE NOS 09/29/2017 PASTOR CISNEROS MD Ot 782.3 EDEMA [...] MD Ot 786.05 SHORTNESS OF BREATH 09/29/2017 JEROD WRIGHT, JACOB Helms Ot 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 09/29/2017 JACOB NEWSOME MD Ot 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 09/29/2017 JACOB NEWSOME MD Ot 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 09/29/2017 JACOB NEWSOME MD Ot 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 09/29/2017 YUKO GARRETT MD Ot I10 ESSENTIAL (PRIMARY) HYPERTENSION 09/29/2017 YUKO [...] D68.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 09/29/2017 GILBERT GOMEZ MD, Ot D72.829 ELEVATED WHITE BLOOD CELL COUNT, UNSPECI 09/29/2017 GILBERT GOMEZ MD Ot E78.5 HYPERLIPIDEMIA, UNSPECIFIED 09/29/2017 GILBERT GOMEZ MD Ot F17.210 NICOTINE DEPENDENCE, CIGARETTES, UNCOMPL 09/29/2017 GILBERT GOMEZ MD Ot I10 ESSENTIAL (PRIMARY) HYPERTENSION 09/29/2017 GILBERT GOMEZ MD Ot Z79.02 TELEVISION REPORTER (CURRENT) USE OF ANTITHROMBOTI 09/29/2017 GILBERT GOMEZ MD Ot Z79.82 JAIL (CURRENT) USE OF ASPIRIN 09/29/2017 GILBERT GOMEZ MD Ot R42 DIZZINESS AND GIDDINESS 09/29/2017 GILBERT GOMEZ MD Ot R51 HEADACHE 09/29/2017 IGOR ARANA MD Ot 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) THROMBOCYTHEMIA 09/29/2017 IGOR [...] JAIL (CURRENT) DRUG THERAPY 09/29/2017 MIRELLA MCMILLAN DRUM HANDLER Ot J43.8 OTHER EMPHYSEMA 09/29/2017 MIRELLA MCMILLAN DRUM HANDLER Ot R91.1 SOLITARY PULMONARY NODULE 09/29/2017 MIRELLA MCMILLAN DRUM HANDLER Ot Z72.0 TOBACCO USE 09/29/2017 MIRELLA MCMILLAN DRUM HANDLER Ot J30.2 OTHER SEASONAL ALLERGIC RHINITIS 09/29/2017 MIRELLA MCMILLAN DRUM HANDLER Ot J44.9 CHRONIC OBSTRUCTIVE PULMONARY DISEASE, U 09/29/2017 MIRELLA MCMILLAN DRUM HANDLER Ot R91.1 SOLITARY PULMONARY NODULE 09/29/2017 HUIZARSOTERO Cox DRUM HANDLER Ot K43.9 VENTRAL HERNIA WITHOUT OBSTRUCTION OR GA 09/29/2017 SOTERO HUIZAR DRUM HANDLER Ot R16.0 HEPATOMEGALY, NOT ELSEWHERE CLASSIFIED 10/04/2017 GERRY WRIGHT, YUKO Blank Ot I10 ESSENTIAL (PRIMARY) HYPERTENSION 10/04/2017 YUKO GARRETT MD Ot J44.9 CHRONIC OBSTRUCTIVE PULMONARY DISEASE, U 10/04/2017 GERRY WRIGHT, YUKO J Ot K21.9 GASTRO-ESOPHAGEAL REFLUX DISEASE WITHOUT 10/04/2017 GERRY WRIGHT, YUKO J Ot R07.9 CHEST PAIN, UNSPECIFIED 10/08/2017 MIRELLA MCMILLAN DRUM HANDLER Ot J43.8 OTHER EMPHYSEMA 10/08/2017 MIRELLA MCMILLAN DRUM HANDLER Ot R91.1 SOLITARY PULMONARY NODULE 10/08/2017 MIRELLA MCMILLAN DRUM HANDLER Ot Z72.0 TOBACCO USE 10/18/2017 MIRELLA MCMILLAN DRUM HANDLER Ot J30.2 OTHER SEASONAL ALLERGIC RHINITIS 10/18/2017 MIRELLA MCMILLAN DRUM HANDLER Ot J44.9 CHRONIC OBSTRUCTIVE PULMONARY DISEASE, U 10/18/2017 MIRELLA MCMILLAN DRUM HANDLER Ot R91.1 SOLITARY PULMONARY NODULE 11/04/2017 AMELIA WRIGHT, PASTOR Blank Ot E11.9 TYPE 2 DIABETES MELLITUS WITHOUT COMPLIC 11/04/2017 AMELIA WRIGHT, PASTOR Blank Ot E66.9 OBESITY, UNSPECIFIED 11/04/2017 PASTOR CISNEROS MD Ot I73.9 PERIPHERAL VASCULAR DISEASE, UNSPECIFIED 11/04/2017 AMELIA WRIGHT, PASTOR Blank Ot Z86.73 PRSNL HX OF TIA (TIA), AND CEREB INFRC W 11/04/2017 IGOR ARANA MD, Ot 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) THROMBOCYTHEMIA 11/04/2017 IGOR [...] Ot R00.0 TACHYCARDIA, UNSPECIFIED 11/04/2017 IGOR ARANA MD, Ot Z79.899 OTHER TELEVISION REPORTER (CURRENT) DRUG THERAPY 11/04/2017 BILLY GOLD MD Ot E11.9 TYPE 2 DIABETES MELLITUS WITHOUT COMPLIC 11/04/2017 BILLY GOLD MD Ot E78.00 PURE HYPERCHOLESTEROLEMIA, UNSPECIFIED 11/04/2017 BILLY GOLD MD Ot F17.210 NICOTINE DEPENDENCE, CIGARETTES, UNCOMPL 11/04/2017 BILLY GOLD MD, Ot F41.9 ANXIETY DISORDER, UNSPECIFIED 11/04/2017 BILLY GOLD MD Ot G43.909 MIGRAINE, UNSP, NOT INTRACTABLE, WITHOUT 11/04/2017 BILLY GOLD MD Ot I10 ESSENTIAL (PRIMARY) HYPERTENSION 11/04/2017 BILLY GOLD MD Ot K21.9 GASTRO-ESOPHAGEAL REFLUX DISEASE WITHOUT 11/04/2017 BILLY GOLD MD Ot N39.0 URINARY TRACT INFECTION, SITE NOT SPECIF 11/04/2017 BILLY GOLD MD, Ot R31.9 HEMATURIA, UNSPECIFIED 11/04/2017 BILLY GOLD MD Ot Z79.02 JAIL (CURRENT) USE OF ANTITHROMBOTI 11/04/2017 BILLY GOLD MD Ot Z79.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 11/04/2017 BILLY GOLD MD Ot Z80.0 FAMILY HISTORY OF MALIGNANT NEOPLASM OF 11/04/2017 BILLY GOLD MD Ot Z82.49 FAMILY HX OF ISCHEM HEART DIS AND OTH DI 11/04/2017 ASIF WRIGHT, BILLY Baeza Ot Z86.73 PRSNL HX OF TIA (TIA), AND CEREB INFRC W 11/04/2017 ASIF WRIGHT, BILLY Baeza Ot Z87.440 PERSONAL HISTORY OF URINARY (TRACT) INFE 11/04/2017 ASIF WRIGHT, BILLY Baeza Ot Z87.59 PERSONAL HISTORY OF COMP OF PREG, CHLDBR 11/04/2017 ASIF WRIGHT, BILLY Baeza Ot Z88.0 ALLERGY STATUS TO PENICILLIN 11/04/2017 ASIF WRIGHT, BILLY Baeza Ot Z88.5 ALLERGY STATUS TO NARCOTIC AGENT STATUS 11/04/2017 ASIF WRIGHT, BILLY Baeza Ot Z88.8 ALLERGY STATUS TO OT DRUG/MEDS/BIOL SUB 11/04/2017 ASIF WRIGHT, BILLY Baeza Ot Z98.51 TUBAL LIGATION STATUS 11/06/2017 GERRY WRIGHT, YUKO Blank Ot I10 ESSENTIAL (PRIMARY) HYPERTENSION 11/06/2017 GERRY WRIGHT, YUKO Blank Ot J44.9 CHRONIC OBSTRUCTIVE PULMONARY DISEASE, U 11/06/2017 GERRY WRIGHT, YUKO Blank Ot K21.9 GASTRO-ESOPHAGEAL REFLUX DISEASE WITHOUT 11/06/2017 GERRY WRIGHT, YUKO Blank Ot R07.9 CHEST PAIN, UNSPECIFIED 11/07/2017 BILLY GOLD MD Ot E11.9 TYPE 2 DIABETES MELLITUS WITHOUT COMPLIC 11/07/2017 BILLY GOLD MD Ot E78.00 PURE HYPERCHOLESTEROLEMIA, UNSPECIFIED 11/07/2017 BILLY GOLD MD Ot F17.210 NICOTINE DEPENDENCE, CIGARETTES, UNCOMPL 11/07/2017 ASIF WRIGHT, BILLY Baeza Ot F41.9 ANXIETY DISORDER, UNSPECIFIED 11/07/2017 ASIF WRIGHT, BILLY Baeza Ot G43.909 MIGRAINE, UNSP, NOT INTRACTABLE, WITHOUT 11/07/2017 BILLY GOLD MD Ot I10 ESSENTIAL (PRIMARY) HYPERTENSION 11/07/2017 BILLY GOLD MD Ot K21.9 GASTRO-ESOPHAGEAL REFLUX DISEASE WITHOUT 11/07/2017 BILLY GOLD MD Ot N39.0 URINARY TRACT INFECTION, SITE NOT SPECIF 11/07/2017 BILLY GOLD MD Ot R31.9 HEMATURIA, UNSPECIFIED 11/07/2017 BILLY GOLD MD Ot Z79.02 TELEVISION REPORTER (CURRENT) USE OF ANTITHROMBOTI 11/07/2017 BILLY GOLD MD Ot Z79.82 JAIL (CURRENT) USE OF ASPIRIN 11/07/2017 BILLY GOLD MD Ot Z80.0 FAMILY HISTORY OF MALIGNANT NEOPLASM OF 11/07/2017 BILLY GOLD MD Ot Z82.49 FAMILY HX OF ISCHEM HEART DIS AND OTH DI 11/07/2017 BILLY GOLD MD Ot Z86.73 PRSNL HX OF TIA (TIA), AND CEREB INFRC W 11/07/2017 BILLY GOLD MD Ot Z87.440 PERSONAL HISTORY OF URINARY (TRACT) INFE 11/07/2017 BILLY GOLD MD Ot Z87.59 PERSONAL HISTORY OF COMP OF PREG, CHLDBR 11/07/2017 BILLY GOLD MD Ot Z88.0 ALLERGY STATUS TO PENICILLIN 11/07/2017 BILLY GOLD MD Ot Z88.5 ALLERGY STATUS TO NARCOTIC AGENT STATUS 11/07/2017 BILLY GOLD MD Ot Z88.8 ALLERGY STATUS TO [facility] DRUG/MEDS/BIOL SUB 11/07/2017 BILLY GOLD MD Ot [...] GIDDINESS 11/24/2017 THELMA FARAH APRN Ot Z79.02 JAIL (CURRENT) USE OF ANTITHROMBOTI 11/24/2017 THELMA FARAH APRN Ot Z79.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 11/24/2017 THELMA FARAH APRN Ot Z80.0 FAMILY HISTORY OF MALIGNANT NEOPLASM OF 11/24/2017 THELMA FARAH APRN Ot Z82.49 FAMILY HX OF ISCHEM HEART DIS AND OTH DI 11/24/2017 THELMA FARAH APRN Ot Z86.73 PRSNL HX OF TIA (TIA), AND CEREB INFRC W 11/24/2017 THELMA FARAH APRN Ot Z87.19 PERSONAL HISTORY OF OTHER DISEASES OF TH 11/24/2017 THELMA FARAH APRN Ot Z87.440 PERSONAL HISTORY OF URINARY (TRACT) INFE 11/24/2017 THELMA FARAH APRN Ot Z87.59 PERSONAL HISTORY OF COMP OF PREG, CHLDBR 11/24/2017 THELMA FARAH APRN Ot Z88.0 ALLERGY STATUS TO PENICILLIN 11/24/2017 THELMA FARAH APRN Ot Z88.5 ALLERGY STATUS TO NARCOTIC AGENT STATUS 11/24/2017 THELMA FARAH APRN Ot Z88.8 ALLERGY STATUS TO OTH DRUG/MEDS/BIOL SUB 11/24/2017 THELMA FARAH APRN Ot Z98.51 TUBAL LIGATION STATUS 12/01/2017 MIRELLA MCMILLAN DRUM HANDLER Ot R91.8 OTHER NONSPECIFIC ABNORMAL FINDING OF GIOVANNA 12/01/2017 MIRELLA MCMILLAN APRN Ot Z72.0 TOBACCO USE 12/05/2017 SOTERO HUIZAR DRUM HANDLER Ot I70.0 ATHEROSCLEROSIS OF AORTA 12/05/2017 SOTERO HUIZAR DRUM HANDLER Ot I70.90 UNSPECIFIED ATHEROSCLEROSIS 12/05/2017 SOTERO HUIZAR DRUM HANDLER Ot K43.9 VENTRAL HERNIA WITHOUT OBSTRUCTION OR GA 12/05/2017 SOTERO HUIZAR DRUM HANDLER Ot K76.0 FATTY (CHANGE OF) LIVER, NOT ELSEWHERE C 12/05/2017 SOTERO HUIZAR DRUM HANDLER Ot N39.0 URINARY TRACT INFECTION, SITE NOT SPECIF 12/05/2017 SOTERO HUIZAR DRUM HANDLER Ot I70.0 ATHEROSCLEROSIS OF AORTA 12/05/2017 SOTERO HUIZAR DRUM HANDLER Ot I70.90 UNSPECIFIED ATHEROSCLEROSIS 12/05/2017 SOTERO HUIZAR DRUM HANDLER Ot K43.9 VENTRAL HERNIA WITHOUT OBSTRUCTION OR GA 12/05/2017 SOTERO HUIZAR DRUM HANDLER Ot K76.0 FATTY (CHANGE OF) LIVER, NOT ELSEWHERE C 12/05/2017 SOTERO HUIZAR DRUM HANDLER Ot N39.0 URINARY TRACT INFECTION, SITE NOT SPECIF 12/07/2017 MAGDA MARTINEZP Ot D72.829 ELEVATED WHITE BLOOD CELL COUNT, UNSPECI 12/07/2017 MICHELLE, MAGDA EXECUTIVE OFFICER Ot E11.9 TYPE 2 DIABETES MELLITUS WITHOUT COMPLIC 12/07/2017 MICHELLE MAGDA EXECUTIVE OFFICER Ot E78.00 PURE HYPERCHOLESTEROLEMIA, UNSPECIFIED 12/07/2017 MICHELLE, MAGDA EXECUTIVE OFFICER Ot F17.210 NICOTINE DEPENDENCE, CIGARETTES, UNCOMPL 12/07/2017 MICHELLE, MAGDA EXECUTIVE OFFICER Ot F41.0 PANIC DISORDER [EPISODIC PAROXYSMAL ANXI 12/07/2017 MICHELLE MAGDA EXECUTIVE OFFICER Ot G43.909 MIGRAINE, UNSP, NOT INTRACTABLE, WITHOUT 12/07/2017 MICHELLE MAGDA EXECUTIVE OFFICER Ot I10 ESSENTIAL (PRIMARY) HYPERTENSION 12/07/2017 MICHELLE MAGDA EXECUTIVE OFFICER Ot K21.9 GASTRO- ESOPHAGEAL REFLUX DISEASE WITHOUT 12/07/2017 MICHELLE MAGDA EXECUTIVE OFFICER Ot Z79.02 TELEVISION REPORTER (CURRENT) USE OF ANTITHROMBOTI 12/07/2017 MICHELLE MAGDA EXECUTIVE OFFICER Ot Z79.82 JAIL (CURRENT) USE OF ASPIRIN 12/07/2017 MICHELLE MAGDA EXECUTIVE OFFICER Ot Z80.0 FAMILY HISTORY OF MALIGNANT NEOPLASM OF 12/07/2017 MICHELLE MAGDA EXECUTIVE OFFICER Ot Z82.49 FAMILY HX OF ISCHEM HEART DIS AND OTH DI 12/07/2017 MICHELLE MAGDA EXECUTIVE OFFICER Ot Z86.73 PRSNL HX OF TIA (TIA), AND CEREB INFRC W 12/07/2017 MICHELLE MAGDA EXECUTIVE OFFICER Ot Z87.19 PERSONAL HISTORY OF OTHER DISEASES OF TH 12/07/2017 MAGDA MARTINEZ EXECUTIVE OFFICER Ot Z87.440 PERSONAL HISTORY OF URINARY (TRACT) INFE 12/07/2017 MICHELLE MAGDA EXECUTIVE OFFICER Ot Z88.0 ALLERGY STATUS TO PENICILLIN 12/07/2017 MICHELLE MAGDA EXECUTIVE OFFICER Ot Z88.5 ALLERGY STATUS TO NARCOTIC AGENT STATUS 12/07/2017 MICHELLE, MAGDA EXECUTIVE OFFICER Ot Z88.8 ALLERGY STATUS TO [facility] DRUG/MEDS/BIOL SUB 12/07/2017 MAGDA MARTINEZP Ot Z98.51 TUBAL LIGATION STATUS 12/07/2017 MAGDA MARTINEZ Ot Z98.890 OTHER SPECIFIED POSTPROCEDURAL STATES 12/08/2017 YUKO GARRETT MD Ot I10 ESSENTIAL (PRIMARY) HYPERTENSION 12/08/2017 YUKO GARRETT MD Ot J44.9 CHRONIC OBSTRUCTIVE PULMONARY DISEASE, U 12/08/2017 YUKO GARRETT MD Ot K21.9 GASTRO-ESOPHAGEAL REFLUX DISEASE WITHOUT 12/08/2017 YUKO GARRETT MD Ot R07.9 CHEST PAIN, UNSPECIFIED 12/09/2017 MAGDA MARTINEZ Ot D72.829 ELEVATED WHITE BLOOD CELL COUNT, UNSPECI 12/09/2017 MAGDA MARTINEZP Ot E11.9 TYPE 2 DIABETES MELLITUS WITHOUT COMPLIC 12/09/2017 MAGDA MARTINEZP Ot E78.00 PURE HYPERCHOLESTEROLEMIA, UNSPECIFIED 12/09/2017 MAGDA MARTINEZP Ot F17.210 NICOTINE DEPENDENCE, CIGARETTES, UNCOMPL 12/09/2017 MAGDA MARTINEZP Ot F41.0 PANIC DISORDER [EPISODIC PAROXYSMAL ANXI 12/09/2017 MAGDA MARTINEZP Ot G43.909 MIGRAINE, UNSP, NOT INTRACTABLE, WITHOUT 12/09/2017 MAGDA MARTINEZP Ot I10 ESSENTIAL (PRIMARY) HYPERTENSION 12/09/2017 MAGDA MARTINEZP Ot K21.9 GASTRO- ESOPHAGEAL REFLUX DISEASE WITHOUT 12/09/2017 MAGDA MARTINEZP Ot Z79.02 TELEVISION REPORTER (CURRENT) USE OF ANTITHROMBOTI 12/09/2017 MAGDA MARTINEZP Ot Z79.82 JAIL (CURRENT) USE OF ASPIRIN 12/09/2017 MAGDA MARITNEZ EXECUTIVE OFFICER Ot Z80.0 FAMILY HISTORY OF MALIGNANT NEOPLASM OF 12/09/2017 MAGDA MARTINEZP Ot Z82.49 FAMILY HX OF ISCHEM HEART DIS AND OTH DI 12/09/2017 MAGDA MARTINEZP Ot Z86.73 PRSNL HX OF TIA (TIA), AND CEREB INFRC W 12/09/2017 MAGDA MARTINEZP Ot Z87.19 PERSONAL HISTORY OF OTHER DISEASES OF TH 12/09/2017 MAGDA MARTINEZ Ot Z87.440 PERSONAL HISTORY OF URINARY (TRACT) INFE 12/09/2017 MAGDA MARTINEZP Ot Z88.0 ALLERGY STATUS TO PENICILLIN 12/09/2017 MAGDA MARTINEZ EXECUTIVE OFFICER Ot Z88.5 ALLERGY STATUS TO NARCOTIC AGENT STATUS 12/09/2017 MAGDA MARTINEZ EXECUTIVE OFFICER Ot Z88.8 ALLERGY STATUS TO OTH DRUG/MEDS/BIOL SUB 12/09/2017 MAGDA MARTINEZ EXECUTIVE OFFICER Ot Z98.51 TUBAL LIGATION STATUS 12/09/2017 MAGDA MARTINEZ EXECUTIVE OFFICER Ot Z98.890 OTHER SPECIFIED POSTPROCEDURAL STATES 12/28/2017 SOTERO HUIZAR DRUM HANDLER Ot I70.0 ATHEROSCLEROSIS OF AORTA 12/28/2017 SOTERO HUIZAR DRUM HANDLER Ot I70.90 UNSPECIFIED ATHEROSCLEROSIS 12/28/2017 SOTERO HUIZAR DRUM HANDLER Ot K43.9 VENTRAL HERNIA WITHOUT OBSTRUCTION OR GA 12/28/2017 SOTERO HUIZAR DRUM HANDLER Ot K76.0 FATTY (CHANGE OF) LIVER, NOT ELSEWHERE C 12/28/2017 SOTERO HUIZAR DRUM HANDLER Ot N39.0 URINARY TRACT INFECTION, SITE NOT SPECIF 01/23/2018 BERNZENIA, RENY Ot E11.9 TYPE 2 DIABETES MELLITUS WITHOUT COMPLIC 01/23/2018 BERNOT, RENY Ot E78.00 PURE HYPERCHOLESTEROLEMIA, UNSPECIFIED 01/23/2018 BERNOT, RENY Ot F17.210 NICOTINE DEPENDENCE, CIGARETTES, UNCOMPL 01/23/2018 BERNOT, RENY Ot F41.9 ANXIETY DISORDER, UNSPECIFIED 01/23/2018 BERNOT, RENY Ot G43.909 MIGRAINE, UNSP, NOT INTRACTABLE, WITHOUT 01/23/2018 BERNOT, RENY Ot I10 ESSENTIAL (PRIMARY) HYPERTENSION 01/23/2018 BERNOT, RENY Ot R10.32 LEFT LOWER QUADRANT PAIN 01/23/2018 BERNOT, REYN Ot Z79.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 01/23/2018 BERNZENIA, RENY Ot Z86.73 PRSNL HX OF TIA (TIA), AND CEREB INFRC W 01/23/2018 ROBERTO, RENY Ot Z87.440 PERSONAL HISTORY OF URINARY (TRACT) INFE 01/23/2018 BERNZENIA, RENY Ot Z88.0 ALLERGY STATUS TO PENICILLIN 01/23/2018 ROBERTO, RENY Ot Z88.1 ALLERGY STATUS TO OTHER ANTIBIOTIC AGENT 01/23/2018 ROBERTO, RENY Ot Z88.5 ALLERGY STATUS TO NARCOTIC AGENT STATUS 01/23/2018 CLIVEZENIA RENY Ot Z88.8 ALLERGY STATUS TO OTH DRUG/MEDS/BIOL SUB 01/23/2018 BERNZENIA RENY Ot Z98.51 TUBAL LIGATION STATUS 01/26/2018 ROBERTO RENY Ot E11.9 TYPE 2 DIABETES MELLITUS WITHOUT COMPLIC 01/26/2018 BERNZENIA RENY Ot E78.00 PURE HYPERCHOLESTEROLEMIA, UNSPECIFIED 01/26/2018 BERNZENIA, RENY Ot F17.210 NICOTINE DEPENDENCE, CIGARETTES, UNCOMPL 01/26/2018 BERNZENIA, RENY Ot F41.9 ANXIETY DISORDER, UNSPECIFIED 01/26/2018 BERNZENIA RENY Ot G43.909 MIGRAINE, UNSP, NOT INTRACTABLE, WITHOUT 01/26/2018 BERNOT RENY Ot I10 ESSENTIAL (PRIMARY) HYPERTENSION 01/26/2018 ROBERTO RENY Ot R10.32 LEFT LOWER QUADRANT PAIN 01/26/2018 ROBERTO RENY Ot Z79.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 01/26/2018 ROBERTO RENY Ot Z86.73 PRSNL HX OF TIA (TIA), AND CEREB INFRC W 01/26/2018 ROBERTO RENY Ot Z87.440 PERSONAL HISTORY OF URINARY (TRACT) INFE 01/26/2018 ROBERTO RENY Ot Z88.0 ALLERGY STATUS TO PENICILLIN 01/26/2018 ROBERTO RENY Ot Z88.1 ALLERGY STATUS TO OTHER ANTIBIOTIC AGENT 01/26/2018 ROBERTO RENY Ot Z88.5 ALLERGY STATUS TO NARCOTIC AGENT STATUS 01/26/2018 ROBERTO RENY Ot Z88.8 ALLERGY STATUS TO OTH DRUG/MEDS/BIOL SUB 01/26/2018 CLIVEZENIA RENY Ot Z98.51 TUBAL LIGATION STATUS 02/02/2018 [...] TOBACCO SMO 02/02/2018 PRISCILLA HUNT Ot Z79.02 TELEVISION REPORTER (CURRENT) USE OF ANTITHROMBOTI 02/02/2018 PRISCILLA HUNT Ot Z79.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 02/02/2018 PRISCILLA HUNT [...] Z88.8 ALLERGY STATUS TO OT DRUG/MEDS/BIOL SUB 02/02/2018 PRISCILLA HUNT Ot Z98.51 [...] TOBACCO SMO 02/06/2018 PRISCILLA HUNT Ot Z79.02 JAIL (CURRENT) USE OF ANTITHROMBOTI 02/06/2018 PRISCILLA HUNT Ot Z79.82 JAIL (CURRENT) USE OF ASPIRIN 02/06/2018 PRISCILLA HUNT Ot Z80.0 FAMILY HISTORY OF MALIGNANT NEOPLASM OF 02/06/2018 PRISCILLA HUNT Ot Z82.49 FAMILY HX OF [...] Z88.8 ALLERGY STATUS TO OTH DRUG/MEDS/BIOL SUB 02/06/2018 PRISCILLA HUNT Ot Z98.51 TUBAL LIGATION STATUS 02/06/2018 PRISCILLA HUNT Ot Z98.890 OTHER SPECIFIED POSTPROCEDURAL STATES 02/24/2018 BERNRENY KNUTSON Ot E11.9 TYPE 2 DIABETES MELLITUS WITHOUT COMPLIC 02/24/2018 BERNOT, RENY Ot E78.00 PURE HYPERCHOLESTEROLEMIA, UNSPECIFIED 02/24/2018 ROB MEJIAIS Ot F41.9 ANXIETY DISORDER, UNSPECIFIED 02/24/2018 ROB MEJIAIS Ot G43.909 MIGRAINE, UNSP, NOT INTRACTABLE, WITHOUT 02/24/2018 ROB MEJIAIS Ot I10 ESSENTIAL (PRIMARY) HYPERTENSION 02/24/2018 ROB MEJIAIS Ot K21.9 GASTRO- ESOPHAGEAL REFLUX DISEASE WITHOUT 02/24/2018 ROB MEJIAIS Ot L29.9 PRURITUS, UNSPECIFIED 02/24/2018 ROB MEJIAIS Ot L53.9 ERYTHEMATOUS CONDITION, UNSPECIFIED 02/24/2018 ROB MEJIAIS Ot T80.89XA OTH COMP FOL INFUSION, TRANSFUSE AND THE 02/24/2018 ROB MEJIAIS Ot Z77.22 CNTCT W AND EXPSR TO ENVIRON TOBACCO SMO 02/24/2018 ROB MEJIAIS Ot Z79.02 JAIL (CURRENT) USE OF ANTITHROMBOTI 02/24/2018 ROB MEJIAIS Ot Z79.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 02/24/2018 ROB MEJIAIS [...] Ot Z88.0 ALLERGY STATUS TO PENICILLIN 02/24/2018 ROBERTO RENY Ot Z88.5 ALLERGY STATUS TO NARCOTIC AGENT STATUS 02/24/2018 ROB MEJIAIS Ot Z88.8 ALLERGY STATUS TO OTH DRUG/MEDS/BIOL SUB 02/24/2018 ROB MEJIAIS Ot Z98.51 TUBAL LIGATION STATUS 02/24/2018 ROB MEJIAIS Ot Z98.890 OTHER SPECIFIED POSTPROCEDURAL STATES 02/27/2018 ROB MEJIAIS Ot E11.9 TYPE 2 DIABETES MELLITUS WITHOUT COMPLIC 02/27/2018 ROBERTO RENY Ot E78.00 PURE HYPERCHOLESTEROLEMIA, UNSPECIFIED 02/27/2018 ROB MEJIAIS Ot F41.9 ANXIETY DISORDER, UNSPECIFIED 02/27/2018 ROBERTO RENY Ot G43.909 MIGRAINE, UNSP, NOT INTRACTABLE, WITHOUT 02/27/2018 ROBERTO RENY Ot I10 ESSENTIAL (PRIMARY) HYPERTENSION 02/27/2018 ROB MEJIAIS Ot K21.9 GASTRO- ESOPHAGEAL REFLUX DISEASE WITHOUT 02/27/2018 ROB MEJIAIS Ot L29.9 PRURITUS, UNSPECIFIED 02/27/2018 ROB MEJIAIS Ot L53.9 ERYTHEMATOUS CONDITION, UNSPECIFIED 02/27/2018 ROB MEJIAIS Ot T80.89XA OTH COMP FOL INFUSION, TRANSFUSE AND THE 02/27/2018 ROB MEJIAIS Ot Z77.22 CNTCT W AND EXPSR TO ENVIRON TOBACCO SMO 02/27/2018 ROB MEJIAIS Ot Z79.02 JAIL (CURRENT) USE OF ANTITHROMBOTI 02/27/2018 ROB MEJIAIS Ot Z79.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 02/27/2018 ROBERTO RENY Ot Z80.0 FAMILY HISTORY OF MALIGNANT NEOPLASM OF 02/27/2018 ROB MEJIAIS Ot Z82.49 FAMILY HX OF ISCHEM HEART DIS AND OTH DI 02/27/2018 ROB MEJIAIS Ot Z86.73 PRSNL HX OF TIA (TIA), AND CEREB INFRC W 02/27/2018 ROB MEJIAIS Ot Z87.19 PERSONAL HISTORY OF OTHER DISEASES OF TH 02/27/2018 ROB MEJIAIS Ot Z87.440 PERSONAL HISTORY OF URINARY (TRACT) INFE 02/27/2018 ROB MEJIAIS Ot Z87.448 PERSONAL HISTORY OF OTHER DISEASES OF UR 02/27/2018 ROB MEJIAIS Ot Z88.0 ALLERGY STATUS TO PENICILLIN 02/27/2018 ROBERTO RENY Ot Z88.5 ALLERGY STATUS TO NARCOTIC AGENT STATUS 02/27/2018 ROB MEJIAIS Ot Z88.8 ALLERGY STATUS TO OTH DRUG/MEDS/BIOL SUB 02/27/2018 ROB MEJIAIS Ot Z98.51 TUBAL LIGATION STATUS 02/27/2018 ROB MEJIAIS Ot Z98.890 OTHER SPECIFIED POSTPROCEDURAL STATES 03/01/2018 PASTOR CISNEROS MD Ot 723.1 CERVICALGIA 03/01/2018 PASTOR CISNEROS MD Ot 729.5 PAIN IN LIMB 03/01/2018 PASTOR [...] TACHYCARDIA NOS 03/01/2018 PASTOR CISNEROS MD Ot 305.1 TOBACCO USE DISORDER 03/01/2018 PASTOR CISNEROS MD Ot 401.9 HYPERTENSION NOS 03/01/2018 PASTOR CISNEROS MD Ot 428.0 CONGESTIVE HEART FAILURE NOS 03/01/2018 PASTOR CISNEROS MD Ot 782.3 EDEMA 03/01/2018 PASTOR CISNEROS MD Ot 785.0 TACHYCARDIA NOS 03/01/2018 PASTOR CISNEROS MD Ot 786.50 CHEST PAIN NOS 03/01/2018 SULEMA HUDSON MD Ot 397.0 TRICUSPID VALVE DISEASE 03/01/2018 SULEMA HUDSON MD Ot 401.9 HYPERTENSION NOS 03/01/2018 ADINA HUDSON MDELAN Ot 424.0 MITRAL VALVE DISORDER 03/01/2018 SULEMA HUDSON MD Ot 786.50 CHEST PAIN NOS 03/01/2018 ADINA HUDSON MDELAN Ot 401.9 HYPERTENSION NOS 03/01/2018 TRISTAN WRIGHT, JAYASEELAN Ot 786.50 CHEST PAIN NOS 03/01/2018 PASTOR CISNEROS MD Ot 251.2 HYPOGLYCEMIA NOS 03/01/2018 PASTOR CISNEROS MD Ot 790.29 OTHER ABNORMAL GLUCOSE 03/01/2018 PASTOR CISNEROS MD Ot 780.39 OTHER CONVULSIONS 03/01/2018 PASTOR CISNEROS MD Ot 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 03/01/2018 PASTOR CISNEROS MD Ot 780.97 ALTERED MENTAL STATUS 03/01/2018 PASTOR CISNEROS MD Ot 781.99 NERV/MUSCULOSKEL SYS SYMP NEC 03/01/2018 PASTOR CISNEROS MD Ot 530.81 ESOPHAGEAL REFLUX 03/01/2018 PASTOR CISNEROS MD Ot 553.3 DIAPHRAGMATIC HERNIA 03/01/2018 PASTOR CISNEROS MD Ot 787.20 DYSPHAGIA, UNSPECIFIED 03/01/2018 YUKO GARRETT [...] COMPLIC 03/01/2018 PASTOR CISNEROS MD Ot Z79.4 JAIL (CURRENT) USE OF INSULIN 03/01/2018 PASTOR CISNEROS [...] PASTOR CISNEROS MD Ot R51 HEADACHE 03/01/2018 JASON WRIGHT, GILBERT Yin Ot 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) THROMBOCYTHEMIA 03/01/2018 GILBERT GOMEZ MD Ot D68.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 03/01/2018 GILBERT GOMEZ MD Ot D72.829 ELEVATED WHITE BLOOD CELL COUNT, UNSPECI 03/01/2018 GILBERT GOMEZ MD Ot E78.5 HYPERLIPIDEMIA, UNSPECIFIED 03/01/2018 GILBERT GOMEZ MD Ot F17.210 NICOTINE DEPENDENCE, CIGARETTES, UNCOMPL 03/01/2018 GILBERT GOMEZ MD Ot I10 ESSENTIAL (PRIMARY) HYPERTENSION 03/01/2018 GILBERT GOMEZ MD Ot Z79.02 TELEVISION REPORTER (CURRENT) USE OF ANTITHROMBOTI 03/01/2018 GILBERT GOMEZ MD Ot Z79.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 03/01/2018 GILBERT GOMEZ [...] 03/01/2018 IGOR ARANA MD Ot Z79.899 OTHER TELEVISION REPORTER (CURRENT) DRUG THERAPY 03/01/2018 MIRELLA MCMILLAN APRN Ot J43.8 OTHER EMPHYSEMA 03/01/2018 MIRELLA MCMILLAN APRN Ot R91.1 SOLITARY PULMONARY NODULE 03/01/2018 MIRELLA MCMILLAN APRN Ot Z72.0 TOBACCO USE 03/01/2018 MIRELLA MCMILLAN APRN Ot J30.2 OTHER SEASONAL ALLERGIC RHINITIS 03/01/2018 MIRELLA MCMILLAN APRN Ot J44.9 CHRONIC OBSTRUCTIVE PULMONARY DISEASE, U 03/01/2018 MIRELLA MCMILLAN DRUM HANDLER Ot R91.1 SOLITARY PULMONARY NODULE 03/01/2018 MIRELLA MCMILLAN DRUM HANDLER Ot R91.8 OTHER NONSPECIFIC ABNORMAL FINDING OF GIOVANNA 03/01/2018 MIRELLA MCMILLAN DRUM HANDLER Ot Z72.0 TOBACCO USE 03/01/2018 SOTERO HUIZAR DRUM HANDLER Ot K43.9 VENTRAL HERNIA WITHOUT OBSTRUCTION OR GA 03/01/2018 SOTERO HUIZAR DRUM HANDLER Ot R16.0 HEPATOMEGALY, NOT ELSEWHERE CLASSIFIED 03/01/2018 YUKO GARRETT MD J Ot I10 ESSENTIAL (PRIMARY) HYPERTENSION 03/01/2018 YUKO GARRETT MD Ot J44.9 CHRONIC OBSTRUCTIVE PULMONARY DISEASE, U 03/01/2018 YUKO GARRETT MD J Ot K21.9 GASTRO-ESOPHAGEAL REFLUX DISEASE WITHOUT 03/01/2018 YUKO GARRETT MD Ot R07.9 CHEST PAIN, UNSPECIFIED 03/01/2018 YUKO GARRETT MD Ot I10 ESSENTIAL (PRIMARY) HYPERTENSION 03/01/2018 YUKO GARRETT MD Ot J44.9 CHRONIC OBSTRUCTIVE PULMONARY DISEASE, U 03/01/2018 YUKO GARRETT MD Ot K21.9 GASTRO-ESOPHAGEAL REFLUX DISEASE WITHOUT 03/01/2018 YUKO GARRETT MD Ot R07.9 CHEST PAIN, UNSPECIFIED 03/01/2018 SOTERO HUIZAR DRUM HANDLER Ot I70.0 ATHEROSCLEROSIS OF AORTA 03/01/2018 SOTERO HUIZAR DRUM HANDLER Ot I70.90 UNSPECIFIED ATHEROSCLEROSIS 03/01/2018 SOTERO HUIZAR DRUM HANDLER Ot K43.9 VENTRAL HERNIA WITHOUT OBSTRUCTION OR GA 03/01/2018 SOTERO HUIZAR DRUM HANDLER Ot K76.0 FATTY (CHANGE OF) LIVER, NOT ELSEWHERE C 03/01/2018 SOTERO HUIZAR DRUM HANDLER Ot N39.0 URINARY TRACT INFECTION, SITE NOT SPECIF 03/01/2018 SILVIA SPENCER DO Ot K76.0 FATTY (CHANGE OF) LIVER, NOT ELSEWHERE C 03/01/2018 AMELIA WRIGHT, PASTOR Blank Ot 723.1 CERVICALGIA 03/01/2018 PASTOR CISNEROS MD Ot 729.5 PAIN IN LIMB 03/01/2018 PASTOR CISNEROS MD Ot 719.40 JOINT PAIN-UNSPEC 03/01/2018 PASTOR CISNEROS MD Ot 780.79 OTH MALAISE FATIGUE 03/01/2018 AMELIA WRIGHT, PASTOR Blank Ot 782.3 EDEMA 03/01/2018 AMELIA WRIGHT, PASTOR Blank Ot 785.0 TACHYCARDIA NOS 03/01/2018 PASTOR CISNEROS MD Ot 719.40 JOINT PAIN-UNSPEC 03/01/2018 PASTOR CISNEROS MD Ot 780.79 OTH MALAISE FATIGUE 03/01/2018 PASTOR CISNEROS MD Ot 782.3 EDEMA 03/01/2018 PASTOR CISNEROS MD Ot 785.0 TACHYCARDIA NOS 03/01/2018 PASTOR CISNEROS MD Ot 305.1 TOBACCO USE DISORDER 03/01/2018 PASTOR CISNEROS MD Ot 401.9 HYPERTENSION NOS 03/01/2018 PASTOR CISNEROS MD Ot 428.0 CONGESTIVE HEART FAILURE NOS 03/01/2018 PASTOR CISNEROS MD Ot 782.3 EDEMA 03/01/2018 PASTOR CISNEROS MD Ot 785.0 TACHYCARDIA NOS 03/01/2018 PASTOR CISNEROS MD Ot 786.50 CHEST PAIN NOS 03/01/2018 TRISTAN WRIGHT, SULEMA Ot 397.0 TRICUSPID VALVE DISEASE 03/01/2018 TRISTAN WRIGHT, SULEMA Ot 401.9 HYPERTENSION NOS 03/01/2018 TRISTAN WRIGHT, SULEMA Ot 424.0 MITRAL VALVE DISORDER 03/01/2018 TRISTAN WRIGHT, SULEMA Ot 786.50 CHEST PAIN NOS 03/01/2018 TRISTAN WRIGHT, SULEMA Ot 401.9 HYPERTENSION NOS 03/01/2018 TRISTAN WRIGHT, SULEMA Ot 786.50 CHEST PAIN NOS 03/01/2018 PASTOR CISNEROS MD Ot 251.2 HYPOGLYCEMIA NOS 03/01/2018 PASTOR CISNEROS MD Ot 790.29 OTHER ABNORMAL GLUCOSE 03/01/2018 PASTOR CISNEROS MD Ot 780.39 OTHER CONVULSIONS 03/01/2018 PASTOR CISNEROS MD Ot 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 03/01/2018 PASTOR CISNEROS MD Ot 780.97 ALTERED MENTAL STATUS 03/01/2018 PASTOR CISNEROS MD Ot 781.99 NERV/MUSCULOSKEL SYS SYMP NEC 03/01/2018 PASTOR CISNEROS MD Ot 530.81 ESOPHAGEAL REFLUX 03/01/2018 PASTOR CISNEROS MD Ot 553.3 DIAPHRAGMATIC HERNIA 03/01/2018 PASTOR CISNEROS MD Ot 787.20 DYSPHAGIA, UNSPECIFIED 03/01/2018 YUKO GARRETT [...] COMPLIC 03/01/2018 PASTOR CISNEROS MD Ot Z79.4 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 03/01/2018 PASTOR CISNEROS [...] HYPERTENSION 03/01/2018 GILBERT GOMEZ MD Ot Z79.02 JAIL (CURRENT) USE OF ANTITHROMBOTI 03/01/2018 GILBERT GOMEZ MD Ot Z79.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 03/01/2018 GILBERT GOMEZ MD Ot R42 DIZZINESS AND GIDDINESS 03/01/2018 GILBERT GOMEZ MD Ot R51 HEADACHE 03/01/2018 IGOR ARANA MD Ot 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) THROMBOCYTHEMIA 03/01/2018 IGOR ARANA MD, Ot D72.829 ELEVATED WHITE BLOOD CELL COUNT, UNSPECI 03/01/2018 IGOR ARANA MD, Ot E78.5 HYPERLIPIDEMIA, UNSPECIFIED 03/01/2018 IGOR ARANA MD Ot I10 ESSENTIAL (PRIMARY) HYPERTENSION 03/01/2018 IGOR ARANA MD Ot 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 03/01/2018 IGOR ARANA MD Ot I69.998 OTHER SEQUELAE FOLLOWING UNSPECIFIED CER 03/01/2018 IGOR ARANA MD Ot M62.81 MUSCLE WEAKNESS (GENERALIZED) 03/01/2018 IGOR ARANA MD Ot R00.0 TACHYCARDIA, UNSPECIFIED 03/01/2018 IGOR ARANA MD Ot Z79.899 OTHER JAIL (CURRENT) DRUG THERAPY 03/01/2018 MIRELLA MCMILLAN APRN [...] OTHER NONSPECIFIC ABNORMAL FINDING OF GIOVANNA 03/01/2018 HIPOLITO, MIRELLA E DRUM HANDLER Ot Z72.0 TOBACCO USE 03/01/2018 SOTERO HUIZAR DRUM HANDLER Ot K43.9 VENTRAL HERNIA WITHOUT OBSTRUCTION OR GA 03/01/2018 SOTERO HUIZAR DRUM HANDLER Ot R16.0 HEPATOMEGALY, NOT ELSEWHERE CLASSIFIED 03/01/2018 GERRY WRIGHT, YUKO J Ot I10 ESSENTIAL (PRIMARY) HYPERTENSION 03/01/2018 GERRY WRIGHT, BASARTHUR J Ot J44.9 CHRONIC OBSTRUCTIVE PULMONARY DISEASE, U 03/01/2018 GERRY WRIGHT, BASARTHUR J Ot K21.9 GASTRO-ESOPHAGEAL REFLUX DISEASE WITHOUT 03/01/2018 GERRY WRIGHT, BASHAR J Ot R07.9 CHEST PAIN, UNSPECIFIED 03/01/2018 GERRY WRIGHT, BASARTHUR J Ot I10 ESSENTIAL (PRIMARY) HYPERTENSION 03/01/2018 GERRY WRIGHT, BASARTHUR J Ot J44.9 CHRONIC OBSTRUCTIVE PULMONARY DISEASE, U 03/01/2018 GERRY WRIGHT, YUKO J Ot K21.9 GASTRO-ESOPHAGEAL REFLUX DISEASE WITHOUT 03/01/2018 GERRY WRIGHT, YUKO J Ot R07.9 CHEST PAIN, UNSPECIFIED 03/01/2018 SOTERO HUIZAR DRUM HANDLER Ot I70.0 ATHEROSCLEROSIS OF AORTA 03/01/2018 SOTERO HUIZAR DRUM HANDLER Ot I70.90 UNSPECIFIED ATHEROSCLEROSIS 03/01/2018 SOTERO HUIZAR DRUM HANDLER Ot K43.9 VENTRAL HERNIA WITHOUT OBSTRUCTION OR GA 03/01/2018 SOTERO HUIZAR DRUM HANDLER Ot K76.0 FATTY (CHANGE OF) LIVER, NOT ELSEWHERE C 03/01/2018 SOTERO HUIZAR DRUM HANDLER Ot N39.0 URINARY TRACT INFECTION, SITE NOT SPECIF 03/01/2018 SILVIA SPENCER DO Ot K76.0 FATTY (CHANGE OF) LIVER, NOT ELSEWHERE C 03/02/2018 BERNOT, RENY Ot E11.9 TYPE 2 DIABETES MELLITUS WITHOUT COMPLIC 03/02/2018 BERNOT, RENY Ot E78.00 PURE HYPERCHOLESTEROLEMIA, UNSPECIFIED 03/02/2018 BERNOT, RENY Ot F41.9 ANXIETY DISORDER, UNSPECIFIED 03/02/2018 BERNOT, RENY Ot G43.909 MIGRAINE, UNSP, NOT INTRACTABLE, WITHOUT 03/02/2018 BERNOT, RENY Ot I10 ESSENTIAL (PRIMARY) HYPERTENSION 03/02/2018 BERNOT, RENY Ot K21.9 GASTRO- ESOPHAGEAL REFLUX DISEASE WITHOUT 03/02/2018 ROB MEJIAIS Ot L29.9 PRURITUS, UNSPECIFIED 03/02/2018 RENY MEJIA Ot L53.9 ERYTHEMATOUS CONDITION, UNSPECIFIED 03/02/2018 RENY MEJIA Ot T80.89XA OTH COMP FOL INFUSION, TRANSFUSE AND THE 03/02/2018 ROB MEJIAIS Ot Z77.22 CNTCT W AND EXPSR TO ENVIRON TOBACCO SMO 03/02/2018 ROB MEJIAIS Ot Z79.02 TELEVISION REPORTER (CURRENT) USE OF ANTITHROMBOTI 03/02/2018 ROB MEJIAIS Ot Z79.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 03/02/2018 ROB MEJIAIS Ot Z80.0 FAMILY HISTORY OF MALIGNANT NEOPLASM OF 03/02/2018 ROB MEJIAIS Ot Z82.49 FAMILY HX OF ISCHEM HEART DIS AND OTH DI 03/02/2018 RENY MEJIA Ot Z86.73 PRSNL HX OF TIA (TIA), AND CEREB INFRC W 03/02/2018 ROB MEJIAIS Ot Z87.19 PERSONAL HISTORY OF OTHER DISEASES OF TH 03/02/2018 ROB MEJIAIS Ot Z87.440 PERSONAL HISTORY OF URINARY (TRACT) INFE 03/02/2018 ROB MEJIAIS Ot Z87.448 PERSONAL HISTORY OF OTHER DISEASES OF UR 03/02/2018 ROB MEJIAIS Ot Z88.0 ALLERGY STATUS TO PENICILLIN 03/02/2018 ROB MEJIAIS Ot Z88.5 ALLERGY STATUS TO NARCOTIC AGENT STATUS 03/02/2018 ROB MEJIAIS Ot Z88.8 ALLERGY STATUS TO OT DRUG/MEDS/BIOL SUB 03/02/2018 ROB MEJIAIS Ot Z98.51 TUBAL LIGATION STATUS 03/02/2018 ROB MEJIAIS Ot Z98.890 OTHER SPECIFIED POSTPROCEDURAL STATES 03/10/2018 SOTERO HUIZAR DRUM HANDLER Ot I70.0 ATHEROSCLEROSIS OF AORTA 03/10/2018 SOTERO HUIZAR DRUM HANDLER Ot I70.90 UNSPECIFIED ATHEROSCLEROSIS 03/10/2018 SOTERO HUIZAR APRN Ot K43.9 VENTRAL HERNIA WITHOUT OBSTRUCTION OR GA 03/10/2018 SOTERO HUIZAR APRN Ot K76.0 FATTY (CHANGE OF) LIVER, NOT ELSEWHERE C 03/10/2018 SOTERO HUIZAR DRUM HANDLER Ot N39.0 URINARY TRACT INFECTION, SITE NOT SPECIF 03/13/2018 THELMA FARAH APRN Ot E11.9 TYPE 2 DIABETES MELLITUS WITHOUT COMPLIC 03/13/2018 THELMA FARAH APRN Ot E78.00 PURE HYPERCHOLESTEROLEMIA, UNSPECIFIED 03/13/2018 THELMA FARAH APRN Ot F41.9 ANXIETY DISORDER, UNSPECIFIED 03/13/2018 THELMA FARAH APRN Ot G43.909 MIGRAINE, UNSP, NOT INTRACTABLE, WITHOUT 03/13/2018 THELMA FARAH APRN Ot I10 ESSENTIAL (PRIMARY) HYPERTENSION 03/13/2018 THELMA FARAH APRN Ot J40 BRONCHITIS, NOT SPECIFIED ACUTE OR CH 03/13/2018 THELMA FARAH APRN Ot K21.9 GASTRO-ESOPHAGEAL REFLUX DISEASE WITHOUT 03/13/2018 THELMA FARAH APRN Ot R05 COUGH 03/13/2018 THELMA FARAH APRN Ot Z77.22 CNTCT W AND EXPSR TO ENVIRON TOBACCO SMO 03/13/2018 THELMA FARAH APRN Ot Z79.02 TELEVISION REPORTER (CURRENT) USE OF ANTITHROMBOTI 03/13/2018 THELMA FARAH APRN Ot Z79.82 JAIL (CURRENT) USE OF ASPIRIN 03/13/2018 THELMA FARAH APRN Ot Z80.0 FAMILY HISTORY OF MALIGNANT NEOPLASM OF 03/13/2018 THELMA FARAH APRN Ot Z82.49 FAMILY HX OF ISCHEM HEART DIS AND OTH DI 03/13/2018 THELMA FARAH APRN Ot Z86.73 PRSNL HX OF TIA (TIA), AND CEREB INFRC W 03/13/2018 THELMA FARAH APRN Ot Z87.19 PERSONAL HISTORY OF OTHER DISEASES OF TH 03/13/2018 THELMA FARAH APRN Ot Z87.440 PERSONAL HISTORY OF URINARY (TRACT) INFE 03/13/2018 THELMA FARAH APRN Ot Z87.448 PERSONAL HISTORY OF OTHER DISEASES OF UR 03/13/2018 THELMA FARAH APRN Ot Z88.0 ALLERGY STATUS TO PENICILLIN 03/13/2018 THELMA FARAH APRN Ot Z88.5 ALLERGY STATUS TO NARCOTIC AGENT STATUS 03/13/2018 THELMA FARAH APRN Ot Z88.8 ALLERGY STATUS TO OTH DRUG/MEDS/BIOL SUB 03/13/2018 THELMA FARAH APRN Ot Z98.51 TUBAL LIGATION STATUS 03/13/2018 THELMA FARAH APRN Ot Z98.890 OTHER SPECIFIED POSTPROCEDURAL STATES 03/16/2018 THELMA FARAH APRN Ot E11.9 TYPE 2 DIABETES MELLITUS WITHOUT COMPLIC 03/16/2018 THELMA FARAH APRN Ot E78.00 PURE HYPERCHOLESTEROLEMIA, UNSPECIFIED 03/16/2018 THELMA FARAH APRN Ot F41.9 ANXIETY DISORDER, UNSPECIFIED 03/16/2018 THELMA FARAH APRN Ot G43.909 MIGRAINE, UNSP, NOT INTRACTABLE, WITHOUT 03/16/2018 THELMA FARAH APRN Ot I10 ESSENTIAL (PRIMARY) HYPERTENSION 03/16/2018 THELMA FARAH APRN Ot J40 BRONCHITIS, NOT SPECIFIED ACUTE OR CH 03/16/2018 THELMA FARAH APRN Ot K21.9 GASTRO-ESOPHAGEAL REFLUX DISEASE WITHOUT 03/16/2018 THELMA FARAH APRN Ot R05 COUGH 03/16/2018 THELMA FARAH APRN Ot Z77.22 CNTCT W AND EXPSR TO ENVIRON TOBACCO SMO 03/16/2018 THELMA FARAH APRN Ot Z79.02 JAIL (CURRENT) USE OF ANTITHROMBOTI 03/16/2018 THELMA FARAH APRN Ot 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.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 03/16/2018 THELMA FARAH APRN Ot Z80.0 FAMILY HISTORY OF MALIGNANT NEOPLASM OF 03/16/2018 THELMA FARAH APRN Ot Z82.49 FAMILY HX OF ISCHEM HEART DIS AND OTH DI 03/16/2018 THELMA FARAH APRN Ot Z86.73 PRSNL HX OF TIA (TIA), AND CEREB INFRC W 03/16/2018 THELMA FARAH APRN Ot Z87.19 PERSONAL HISTORY OF OTHER DISEASES OF TH 03/16/2018 THELMA FARAH APRN Ot Z87.440 PERSONAL HISTORY OF URINARY (TRACT) INFE 03/16/2018 THELMA FARAH APRN Ot Z87.448 PERSONAL HISTORY OF OTHER DISEASES OF UR 03/16/2018 THELMA FARAH APRN Ot Z88.0 ALLERGY STATUS TO PENICILLIN 03/16/2018 THELMA FARAH APRN Ot Z88.5 ALLERGY STATUS TO NARCOTIC AGENT STATUS 03/16/2018 THELMA FARAH DRUM HANDLER Ot Z88.8 ALLERGY STATUS TO OTH DRUG/MEDS/BIOL SUB 03/16/2018 HTELMA FARAH DRUM HANDLER Ot Z98.51 TUBAL LIGATION STATUS 03/16/2018 THELMA FARAH DRUM HANDLER Ot Z98.890 OTHER SPECIFIED POSTPROCEDURAL STATES 03/18/2018 AKBAR EVANS MD Ot D72.829 ELEVATED WHITE BLOOD CELL COUNT, UNSPECI 03/18/2018 AKBAR EVANS MD Ot E11.9 TYPE 2 DIABETES MELLITUS WITHOUT COMPLIC 03/18/2018 AKBAR EVANS MD Ot E78.00 PURE HYPERCHOLESTEROLEMIA, UNSPECIFIED 03/18/2018 AKBAR EVANS MD Ot E86.1 HYPOVOLEMIA 03/18/2018 AKBAR EVANS MD Ot F41.9 ANXIETY DISORDER, UNSPECIFIED 03/18/2018 AKBAR EVANS MD Ot G43.909 MIGRAINE, UNSP, NOT INTRACTABLE, WITHOUT 03/18/2018 AKBAR EVANS MD Ot I10 ESSENTIAL (PRIMARY) HYPERTENSION 03/18/2018 AKBAR EVANS MD Ot K21.9 GASTRO-ESOPHAGEAL REFLUX DISEASE WITHOUT 03/18/2018 AKBAR EVANS MD Ot N39.0 URINARY TRACT INFECTION, SITE NOT SPECIF 03/18/2018 AKBAR EVANS MD Ot R30.0 DYSURIA 03/18/2018 AKBAR EVANS MD Ot Z77.22 CNTCT W AND EXPSR TO ENVIRON TOBACCO SMO 03/18/2018 AKBAR EVANS MD Ot Z79.82 JAIL (CURRENT) USE OF ASPIRIN 03/18/2018 AKBAR EVANS MD Ot Z80.0 FAMILY HISTORY OF MALIGNANT NEOPLASM OF 03/18/2018 AKBAR EVANS MD, Ot Z82.49 FAMILY HX OF ISCHEM HEART DIS AND OTH DI 03/18/2018 AKBAR EVANS MD Ot Z86.19 PERSONAL HISTORY OF OTHER INFECTIOUS AND 03/18/2018 AKBAR EVANS MD Ot Z86.73 PRSNL HX OF TIA (TIA), AND CEREB INFRC W 03/18/2018 AKBAR EVANS MD, Ot Z87.19 PERSONAL HISTORY OF OTHER DISEASES OF TH 03/18/2018 AKBAR EVANS MD, Ot Z87.440 PERSONAL HISTORY OF URINARY (TRACT) INFE 03/18/2018 AKBAR EVANS MD, Ot Z87.448 PERSONAL HISTORY OF OTHER DISEASES OF UR 03/18/2018 AKBAR EVANS MD Ot Z88.0 ALLERGY STATUS TO PENICILLIN 03/18/2018 AKBAR EVANS MD Ot Z88.5 ALLERGY STATUS TO NARCOTIC AGENT STATUS 03/18/2018 AKBAR EVANS MD Ot Z88.8 ALLERGY STATUS TO OTH DRUG/MEDS/BIOL SUB 03/18/2018 AKBAR EVANS MD Ot Z98.51 TUBAL LIGATION STATUS 03/18/2018 AKBAR EVANS MD Ot Z98.890 OTHER SPECIFIED POSTPROCEDURAL STATES 03/20/2018 AKBAR EVANS MD Ot D72.829 ELEVATED WHITE BLOOD CELL COUNT, UNSPECI 03/20/2018 AKBAR EVANS MD Ot E11.9 TYPE 2 DIABETES MELLITUS WITHOUT COMPLIC 03/20/2018 AKBAR EVANS MD Ot E78.00 PURE HYPERCHOLESTEROLEMIA, UNSPECIFIED 03/20/2018 AKBAR EVANS MD Ot E86.1 HYPOVOLEMIA 03/20/2018 AKBAR EVANS MD Ot F41.9 ANXIETY DISORDER, UNSPECIFIED 03/20/2018 AKBAR EVANS MD Ot G43.909 MIGRAINE, UNSP, NOT INTRACTABLE, WITHOUT 03/20/2018 AKBAR EVANS MD Ot I10 ESSENTIAL (PRIMARY) HYPERTENSION 03/20/2018 AKBAR EVANS MD Ot K21.9 GASTRO-ESOPHAGEAL REFLUX DISEASE WITHOUT 03/20/2018 AKBAR EVANS MD Ot N39.0 URINARY TRACT INFECTION, SITE NOT SPECIF 03/20/2018 AKBAR EVANS MD Ot R30.0 DYSURIA 03/20/2018 AKBAR EVANS MD Ot Z77.22 CNTCT W AND EXPSR TO ENVIRON TOBACCO SMO 03/20/2018 AKBAR EVANS MD, Ot Z79.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 03/20/2018 AKBAR EVANS MD, Ot Z80.0 FAMILY HISTORY OF MALIGNANT NEOPLASM OF 03/20/2018 AKBAR EVANS MD, Ot Z82.49 FAMILY HX OF ISCHEM HEART DIS AND OTH DI 03/20/2018 AKBAR EVANS MD Ot Z86.19 PERSONAL HISTORY OF OTHER INFECTIOUS AND 03/20/2018 AKBAR EVANS MD, Ot Z86.73 PRSNL HX OF TIA (TIA), AND CEREB INFRC W 03/20/2018 AKBAR EVANS MD, Ot Z87.19 PERSONAL HISTORY OF OTHER DISEASES OF TH 03/20/2018 AKBAR EVANS MD, Ot Z87.440 PERSONAL HISTORY OF URINARY (TRACT) INFE 03/20/2018 AKBAR EVANS MD Ot Z87.448 PERSONAL HISTORY OF OTHER DISEASES OF UR 03/20/2018 AKBAR EVANS MD, Ot Z88.0 ALLERGY STATUS TO PENICILLIN 03/20/2018 AKBAR EVANS MD Ot Z88.5 ALLERGY STATUS TO NARCOTIC AGENT STATUS 03/20/2018 AKBAR EVANS MD Ot Z88.8 ALLERGY STATUS TO OT DRUG/MEDS/BIOL SUB 03/20/2018 AKBAR EVANS MD Ot Z98.51 TUBAL LIGATION STATUS 03/20/2018 AKBAR EVANS MD Ot Z98.890 OTHER SPECIFIED POSTPROCEDURAL STATES 03/23/2018 PASTOR CISNEROS MD Ot 723.1 CERVICALGIA 03/23/2018 PASTOR CISNEROS MD Ot 729.5 PAIN IN LIMB 03/23/2018 PASTOR CISNEROS MD Ot 719.40 JOINT PAIN-UNSPEC 03/23/2018 PASTOR CISNEROS MD Ot 780.79 OTH MALAISE FATIGUE 03/23/2018 PASTOR CISNEROS MD Ot 782.3 EDEMA 03/23/2018 PASTOR CISNEROS MD Ot 785.0 TACHYCARDIA NOS 03/23/2018 PASTOR CISNEROS MD Ot 719.40 JOINT PAIN-UNSPEC 03/23/2018 AMELIA WRIGHT, PASTOR Blank Ot 780.79 OTH MALAISE FATIGUE 03/23/2018 AMELIA WRIGHT, PASTOR Blank Ot 782.3 EDEMA 03/23/2018 AMELIA WRIGHT, PASTOR J Ot 785.0 TACHYCARDIA NOS 03/23/2018 AMELIA WRIGHT, PASTOR J Ot 305.1 TOBACCO USE DISORDER 03/23/2018 AMELIA WRIGHT, PASTOR J Ot 401.9 HYPERTENSION NOS 03/23/2018 AMELIA WRIGHT, PASTOR Blank Ot 428.0 CONGESTIVE HEART FAILURE NOS 03/23/2018 AMELIA WRIGHT, PASTOR J Ot 782.3 EDEMA 03/23/2018 AMELIA WRIGHT, PASTOR J Ot 785.0 TACHYCARDIA NOS 03/23/2018 AMELIA WRIGHT, PASTOR J Ot 786.50 CHEST PAIN NOS 03/23/2018 TRISTAN WRIGHT, SULEMA Ot 397.0 TRICUSPID VALVE DISEASE 03/23/2018 TRISTAN WRIGHT, ALBERTASEGUCCI Ot 401.9 HYPERTENSION NOS 03/23/2018 TRISTAN WRIGHT, JABRUNOSEELAN Ot 424.0 MITRAL VALVE DISORDER 03/23/2018 TRISTAN WRIGHT, JAYASEELAN Ot 786.50 CHEST PAIN NOS 03/23/2018 TRISTAN WRIGHT, JAYASEELAN Ot 401.9 HYPERTENSION NOS 03/23/2018 TRISTAN WRIGHT, JAYASEELAN Ot 786.50 CHEST PAIN NOS 03/23/2018 AMELIA WRIGHT, PASTOR Blank Ot 251.2 HYPOGLYCEMIA NOS 03/23/2018 AMELIA WRIGHT, PASTOR Blank Ot 790.29 OTHER ABNORMAL GLUCOSE 03/23/2018 AMELIA WRIGHT, PASTOR Blank Ot 780.39 OTHER CONVULSIONS 03/23/2018 AMELIA WRIGHT, PASTOR J Ot 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 03/23/2018 AMELIA WRIGHT, PASTOR Blank Ot 780.97 ALTERED MENTAL STATUS 03/23/2018 AMELIA WRIGHT, PASTOR J Ot 781.99 NERV/MUSCULOSKEL SYS SYMP NEC 03/23/2018 AMELIA WRIGHT, PASTOR J Ot 530.81 ESOPHAGEAL REFLUX 03/23/2018 AMELIA WRIGHT, PASTOR Blank Ot 553.3 DIAPHRAGMATIC HERNIA 03/23/2018 AMELIA WRIGHT, PASTOR Blank Ot 787.20 DYSPHAGIA, UNSPECIFIED 03/23/2018 GERRY WRIGHT, YUKO J Ot 401.9 HYPERTENSION NOS 03/23/2018 GERRY WRIGHT, YUKO J Ot 785.0 TACHYCARDIA NOS 03/23/2018 GERRY WRIGHT, YUKO J Ot 785.1 PALPITATIONS 03/23/2018 YUKO GARRETT MD Ot 786.05 SHORTNESS OF BREATH 03/23/2018 JEROD WRIGHT, JACOB Helms Ot 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 03/23/2018 JACOB NEWSOME MD Ot 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 03/23/2018 JACOB NEWSOME MD Ot 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 03/23/2018 JACOB NEWSOME MD Ot 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 03/23/2018 YUKO GARRETT MD Ot I10 ESSENTIAL (PRIMARY) HYPERTENSION 03/23/2018 YUKO GARRETT MD Ot R00.2 PALPITATIONS 03/23/2018 YUKO GARRETT MD Ot R06.02 SHORTNESS OF BREATH 03/23/2018 YUKO GARRETT MD Ot R07.89 OTHER CHEST PAIN 03/23/2018 PASTOR CISNEROS MD Ot E11.9 TYPE 2 DIABETES MELLITUS WITHOUT COMPLIC 03/23/2018 PASTOR CISNEROS MD Ot Z79.4 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 03/23/2018 PASTOR CISNEROS MD Ot E11.9 TYPE 2 DIABETES MELLITUS WITHOUT COMPLIC 03/23/2018 PASTOR CISNEROS MD Ot E66.9 OBESITY, UNSPECIFIED 03/23/2018 PASTOR CISNEROS MD Ot I73.9 PERIPHERAL VASCULAR DISEASE, UNSPECIFIED 03/23/2018 PASTOR CISNEROS MD Ot Z86.73 PRSNL HX OF TIA (TIA), AND CEREB INFRC W 03/23/2018 PASTOR CISNEROS MD Ot E11.9 TYPE 2 DIABETES MELLITUS WITHOUT COMPLIC 03/23/2018 PASTOR CISNEROS MD Ot M79.662 PAIN IN LEFT LOWER LEG 03/23/2018 PASTOR CISNEROS MD Ot R51 HEADACHE 03/23/2018 GILBERT GOMEZ MD, Ot 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) THROMBOCYTHEMIA 03/23/2018 GILBERT GOMEZ MD Ot D68.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 03/23/2018 GILBERT GOMEZ MD Ot D72.829 ELEVATED WHITE BLOOD CELL COUNT, UNSPECI 03/23/2018 GILBERT GOMEZ MD Ot E78.5 HYPERLIPIDEMIA, UNSPECIFIED 03/23/2018 GILBERT GOMEZ MD Ot F17.210 NICOTINE DEPENDENCE, CIGARETTES, UNCOMPL 03/23/2018 GILBERT GOMEZ MD Ot I10 ESSENTIAL (PRIMARY) HYPERTENSION 03/23/2018 GILBERT GOMEZ MD Ot Z79.02 JAIL (CURRENT) USE OF ANTITHROMBOTI 03/23/2018 GILBERT GOMEZ MD Ot Z79.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 03/23/2018 GILBERT GOMEZ MD Ot R42 DIZZINESS AND GIDDINESS 03/23/2018 GILBERT GOMEZ MD Ot R51 HEADACHE 03/23/2018 IGOR ARANA MD, Ot 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) THROMBOCYTHEMIA 03/23/2018 IGOR ARANA MD, Ot D72.829 ELEVATED WHITE BLOOD CELL COUNT, UNSPECI 03/23/2018 IGOR ARANA MD, Ot E78.5 HYPERLIPIDEMIA, UNSPECIFIED 03/23/2018 IGOR ARANA MD Ot I10 ESSENTIAL (PRIMARY) HYPERTENSION 03/23/2018 IGOR ARANA MD, Ot 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 03/23/2018 IGOR ARANA MD, Ot I69.998 OTHER SEQUELAE FOLLOWING UNSPECIFIED CER 03/23/2018 IGOR ARANA MD, Ot M62.81 MUSCLE WEAKNESS (GENERALIZED) 03/23/2018 IGOR ARANA MD Ot R00.0 TACHYCARDIA, UNSPECIFIED 03/23/2018 IGOR ARANA MD, Ot Z79.899 OTHER TELEVISION REPORTER (CURRENT) DRUG THERAPY 03/23/2018 MIRELLA MCMILLAN APRN Ot J43.8 OTHER EMPHYSEMA 03/23/2018 MIRELLA MCMILLAN APRN Ot R91.1 SOLITARY PULMONARY NODULE 03/23/2018 MIRELLA MCMILLAN APRN Ot Z72.0 TOBACCO USE 03/23/2018 MIRELLA MCMILLAN APRN Ot J30.2 OTHER SEASONAL ALLERGIC RHINITIS 03/23/2018 MIRELLA MCMILLAN APRN Ot J44.9 CHRONIC OBSTRUCTIVE PULMONARY DISEASE, U 03/23/2018 MIRELLA MCMILLAN APRN Ot R91.1 SOLITARY PULMONARY NODULE 03/23/2018 MIRELLA MCMILLAN APRN Ot R91.8 OTHER NONSPECIFIC ABNORMAL FINDING OF GIOVANNA 03/23/2018 MIRELLA MCMILLAN APRN Ot Z72.0 TOBACCO USE 03/23/2018 SOTERO HUIZAR APRN Ot K43.9 VENTRAL HERNIA WITHOUT OBSTRUCTION OR GA 03/23/2018 SOTERO HUIZAR APRN Ot R16.0 HEPATOMEGALY, NOT ELSEWHERE CLASSIFIED 03/23/2018 GERRY WRIGHT, YUKO Blank Ot I10 ESSENTIAL (PRIMARY) HYPERTENSION 03/23/2018 GERRY WRIGHT, YUKO Blank Ot J44.9 CHRONIC OBSTRUCTIVE PULMONARY DISEASE, U 03/23/2018 GERRY WRIGHT, YUKO Blank Ot K21.9 GASTRO-ESOPHAGEAL REFLUX DISEASE WITHOUT 03/23/2018 YUKO GARRETT MD Ot R07.9 CHEST PAIN, UNSPECIFIED 03/23/2018 GERRY WRIGHT, YUKO Blank Ot I10 ESSENTIAL (PRIMARY) HYPERTENSION 03/23/2018 YUKO GARRETT MD Ot J44.9 CHRONIC OBSTRUCTIVE PULMONARY DISEASE, U 03/23/2018 YUKO GARRETT MD Ot K21.9 GASTRO-ESOPHAGEAL REFLUX DISEASE WITHOUT 03/23/2018 YUKO GARRETT MD Ot R07.9 CHEST PAIN, UNSPECIFIED 03/23/2018 SOTERO HUIZAR DRUM HANDLER Ot I70.0 ATHEROSCLEROSIS OF AORTA 03/23/2018 SOTERO HUIZAR DRUM HANDLER Ot I70.90 UNSPECIFIED ATHEROSCLEROSIS 03/23/2018 SOTERO HUIZAR DRUM HANDLER Ot K43.9 VENTRAL HERNIA WITHOUT OBSTRUCTION OR GA 03/23/2018 SOTERO HUIZAR DRUM HANDLER Ot K76.0 FATTY (CHANGE OF) LIVER, NOT ELSEWHERE C 03/23/2018 SOTERO HUIZAR DRUM HANDLER Ot N39.0 URINARY TRACT INFECTION, SITE NOT SPECIF 03/23/2018 DELSILVIA RICE DO B Ot K76.0 FATTY (CHANGE OF) LIVER, NOT ELSEWHERE C 04/25/2018 DELKRYSTAL DOMICHELLIC B Ot K76.0 FATTY (CHANGE OF) LIVER, NOT ELSEWHERE C 05/04/2018 MICHELL SPENCER DOIC B Ot K76.0 FATTY (CHANGE OF) LIVER, NOT ELSEWHERE C 05/29/2018 AMELIA WRIGHT, PASTOR Blank Ot 719.40 JOINT PAIN-UNSPEC 05/29/2018 AMELIA WRIGHT, PASTOR Blank Ot 780.79 OTH MALAISE FATIGUE 05/29/2018 AMLEIA WRIGHT, PASTOR Blank Ot 782.3 EDEMA 05/29/2018 AMELIA WRIGHT, PASTOR Blank Ot 785.0 TACHYCARDIA NOS 05/29/2018 AMELIA WRIGHT, PASTOR Blank Ot 719.40 JOINT PAIN-UNSPEC 05/29/2018 PASTOR CISNEROS MD Ot 780.79 OTH MALAISE FATIGUE 05/29/2018 AMELIA WRIGHT, PASTOR Blank Ot 782.3 EDEMA 05/29/2018 AMELIA WRIGHT, PASTOR Blank Ot 785.0 TACHYCARDIA NOS 05/29/2018 AMELIA WRIGHT, PASTOR Blank Ot 305.1 TOBACCO USE DISORDER 05/29/2018 AMELIA WRIGHT, PASTOR Blank Ot 401.9 HYPERTENSION NOS 05/29/2018 AMELIA WRIGHT, PASTOR Blank Ot 428.0 CONGESTIVE HEART FAILURE NOS 05/29/2018 AMELIA WRIGHT, PASTOR Blank Ot 782.3 EDEMA 05/29/2018 AMELIA WRIGHT, PASTOR Blank Ot 785.0 TACHYCARDIA NOS 05/29/2018 AMELIA WRIGHT, PASTOR J Ot 786.50 CHEST PAIN NOS 05/29/2018 TRISTAN WRIGHT, ALBERTASEGUCCI Ot 397.0 TRICUSPID VALVE DISEASE 05/29/2018 TRISTAN WRIGHT, ALBERTASEGUCCI Ot 401.9 HYPERTENSION NOS 05/29/2018 TRISTAN WRIGHT, ADINAELAN Ot 424.0 MITRAL VALVE DISORDER 05/29/2018 TRISTAN WRIGHT, SULEMA Ot 786.50 CHEST PAIN NOS 05/29/2018 TRISTAN WRIGHT, SULEMA Ot 401.9 HYPERTENSION NOS 05/29/2018 TRISTAN WRIGHT, SULEMA Ot 786.50 CHEST PAIN NOS 05/29/2018 AMELIA WRIGHT, PASTOR Blank Ot 251.2 HYPOGLYCEMIA NOS 05/29/2018 PASTOR CISNEROS MD Ot 790.29 OTHER ABNORMAL GLUCOSE 05/29/2018 AMELIA WRIGHT, PASTOR Blank Ot 780.39 OTHER CONVULSIONS 05/29/2018 AMELIA WRIGHT, PASTOR Blank Ot 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 05/29/2018 AMELIA WRIGHT, PASTOR Blank Ot 780.97 ALTERED MENTAL STATUS 05/29/2018 AMELIA WRIGHT, PASTOR Blank Ot 781.99 NERV/MUSCULOSKEL SYS SYMP NEC 05/29/2018 AMELIA WRIGHT, PASTOR Blank Ot 530.81 ESOPHAGEAL REFLUX 05/29/2018 AMELIA WRIGHT, PASTOR Blank Ot 553.3 DIAPHRAGMATIC HERNIA 05/29/2018 PASTOR CISNEROS MD Ot 787.20 DYSPHAGIA, UNSPECIFIED 05/29/2018 GERRY WRIGHT, YUKO Blank Ot 401.9 HYPERTENSION NOS 05/29/2018 GERRY WRIGHT, YUKO Blank Ot 785.0 TACHYCARDIA NOS 05/29/2018 GERRY WRIGHT, YUKO Blank Ot 785.1 PALPITATIONS 05/29/2018 YUKO GARRETT MD Ot 786.05 SHORTNESS OF BREATH 05/29/2018 JACOB NEWSOME MD Ot 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 05/29/2018 JACOB NEWSOME MD Ot 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 05/29/2018 JACOB NEWSOME MD Ot 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 05/29/2018 JACOB NEWSOME MD Ot 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 05/29/2018 YUKO GARRETT MD Ot I10 ESSENTIAL (PRIMARY) HYPERTENSION 05/29/2018 YUKO GARRETT MD Ot R00.2 PALPITATIONS 05/29/2018 YUKO GARRETT MD Ot R06.02 SHORTNESS OF BREATH 05/29/2018 YUKO GARRETT MD Ot R07.89 OTHER CHEST PAIN 05/29/2018 PASTOR CISNEROS MD Ot E11.9 TYPE 2 DIABETES MELLITUS WITHOUT COMPLIC 05/29/2018 PASTOR CISNEROS MD Ot Z79.4 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 05/29/2018 PASTOR CISNEROS MD Ot E11.9 TYPE 2 DIABETES MELLITUS WITHOUT COMPLIC 05/29/2018 PASTOR CISNEROS MD Ot E66.9 OBESITY, UNSPECIFIED 05/29/2018 PASTOR CISNEROS MD Ot I73.9 PERIPHERAL VASCULAR DISEASE, UNSPECIFIED 05/29/2018 PASTOR CISNEROS MD Ot Z86.73 PRSNL HX OF TIA (TIA), AND CEREB INFRC W 05/29/2018 PASTOR CISNEROS MD Ot E11.9 TYPE 2 DIABETES MELLITUS WITHOUT COMPLIC 05/29/2018 PASTOR CISNEROS MD Ot M79.662 PAIN IN LEFT LOWER LEG 05/29/2018 PASTOR CISNEROS MD Ot R51 HEADACHE 05/29/2018 GILBERT GOMEZ MD Ot 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) THROMBOCYTHEMIA 05/29/2018 GILBERT GOMEZ MD Ot D68.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 05/29/2018 GILBERT GOMEZ MD Ot D72.829 ELEVATED WHITE BLOOD CELL COUNT, UNSPECI 05/29/2018 GILBERT GOMEZ MD Ot E78.5 HYPERLIPIDEMIA, UNSPECIFIED 05/29/2018 GILBERT GOMEZ MD Ot F17.210 NICOTINE DEPENDENCE, CIGARETTES, UNCOMPL 05/29/2018 GILBERT GOMEZ MD Ot I10 ESSENTIAL (PRIMARY) HYPERTENSION 05/29/2018 GILBERT GOMEZ MD Ot Z79.02 TELEVISION REPORTER (CURRENT) USE OF ANTITHROMBOTI 05/29/2018 GILBERT GOMEZ MD Ot Z79.82 JAIL (CURRENT) USE OF ASPIRIN 05/29/2018 GILBERT GOMEZ MD Ot R42 DIZZINESS AND GIDDINESS 05/29/2018 JASON WRIGHT, GILBERT K Ot R51 HEADACHE 05/29/2018 IGOR ARANA MD Ot 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) THROMBOCYTHEMIA 05/29/2018 IGOR ARANA MD Ot D72.829 ELEVATED WHITE BLOOD CELL COUNT, UNSPECI 05/29/2018 IGOR ARANA MD Ot E78.5 HYPERLIPIDEMIA, UNSPECIFIED 05/29/2018 IGOR ARANA MD Ot I10 ESSENTIAL (PRIMARY) HYPERTENSION 05/29/2018 IGOR ARANA MD Ot 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 05/29/2018 IGOR ARANA MD Ot I69.998 OTHER SEQUELAE FOLLOWING UNSPECIFIED CER 05/29/2018 IGOR ARANA MD Ot M62.81 MUSCLE WEAKNESS (GENERALIZED) 05/29/2018 IGOR ARANA MD Ot R00.0 TACHYCARDIA, UNSPECIFIED 05/29/2018 IGOR ARANA MD Ot Z79.899 OTHER JAIL (CURRENT) DRUG THERAPY 05/29/2018 MIRELLA MCMILLAN APRN Ot J43.8 OTHER EMPHYSEMA 05/29/2018 MIRELLA MCMILLAN APRN Ot R91.1 SOLITARY PULMONARY NODULE 05/29/2018 MIRELLA MCMILLAN APRN Ot Z72.0 TOBACCO USE 05/29/2018 MIRELLA MCMILLAN APRN Ot J30.2 OTHER SEASONAL ALLERGIC RHINITIS 05/29/2018 MIRELLA MCMILLAN APRN Ot J44.9 CHRONIC OBSTRUCTIVE PULMONARY DISEASE, U 05/29/2018 MIRELLA MCMILLAN APRN Ot R91.1 SOLITARY PULMONARY NODULE 05/29/2018 MIRELLA MCMILLAN APRN Ot R91.8 OTHER NONSPECIFIC ABNORMAL FINDING OF GIOVANNA 05/29/2018 MIRELLA MCMILLAN APRN Ot Z72.0 TOBACCO USE 05/29/2018 SOTERO HUIZAR APRN Ot K43.9 VENTRAL HERNIA WITHOUT OBSTRUCTION OR GA 05/29/2018 SOTERO HUIZAR APRN Ot R16.0 HEPATOMEGALY, NOT ELSEWHERE CLASSIFIED 05/29/2018 YUKO GARRETT MD Ot I10 ESSENTIAL (PRIMARY) HYPERTENSION 05/29/2018 YUKO GARRETT MD Ot J44.9 CHRONIC OBSTRUCTIVE PULMONARY DISEASE, U 05/29/2018 YKUO GARRETT MD Ot K21.9 GASTRO-ESOPHAGEAL REFLUX DISEASE WITHOUT 05/29/2018 GERRY WRIGHT, YUKO Blank Ot R07.9 CHEST PAIN, UNSPECIFIED 05/29/2018 GERRY WRIGHT, YUKO Blank Ot I10 ESSENTIAL (PRIMARY) HYPERTENSION 05/29/2018 GERRY WRIGHT, YUKO Blank Ot J44.9 CHRONIC OBSTRUCTIVE PULMONARY DISEASE, U 05/29/2018 YUKO GARRETT MD Ot K21.9 GASTRO-ESOPHAGEAL REFLUX DISEASE WITHOUT 05/29/2018 GERRY WRIGHT, YUKO Blank Ot R07.9 CHEST PAIN, UNSPECIFIED 05/29/2018 SOTERO HUIZAR DRUM HANDLER Ot I70.0 ATHEROSCLEROSIS OF AORTA 05/29/2018 SOTERO HUIZAR DRUM HANDLER Ot I70.90 UNSPECIFIED ATHEROSCLEROSIS 05/29/2018 SOTERO HUIZAR DRUM HANDLER Ot K43.9 VENTRAL HERNIA WITHOUT OBSTRUCTION OR GA 05/29/2018 SOTERO HUIZAR DRUM HANDLER Ot K76.0 FATTY (CHANGE OF) LIVER, NOT ELSEWHERE C 05/29/2018 SOTERO HUIZAR DRUM HANDLER Ot N39.0 URINARY TRACT INFECTION, SITE NOT SPECIF 05/29/2018 SILVIA SPENCER DO Ot K76.0 FATTY (CHANGE OF) LIVER, NOT ELSEWHERE C 05/29/2018 AMELIA WRIGHT, PASTOR Blank Ot 719.40 JOINT PAIN-UNSPEC 05/29/2018 AMELIA WRIGHT, PASTOR Blank Ot 780.79 OTH MALAISE FATIGUE 05/29/2018 AMELIA WRIGHT, PASTOR Blank Ot 782.3 EDEMA 05/29/2018 AMELIA WRIGHT, PASTOR Blank Ot 785.0 TACHYCARDIA NOS 05/29/2018 AMELIA WRIGHT, PASTOR Blank Ot 719.40 JOINT PAIN-UNSPEC 05/29/2018 AMELIA WRIGHT, PASTOR Blank Ot 780.79 OTH MALAISE FATIGUE 05/29/2018 PASTOR CISNEROS MD Ot 782.3 EDEMA 05/29/2018 AMELIA WRIGHT, PASTOR Blank Ot 785.0 TACHYCARDIA NOS 05/29/2018 AMELIA WRIGHT, PASTOR Blank Ot 305.1 TOBACCO USE DISORDER 05/29/2018 AMELIA WRIGHT, PASTOR Blank Ot 401.9 HYPERTENSION NOS 05/29/2018 AMELIA WRIGHT, PASTOR Blank Ot 428.0 CONGESTIVE HEART FAILURE NOS 05/29/2018 PASTOR CISNEROS MD Ot 782.3 EDEMA 05/29/2018 AMELIA WRIGHT, PASTOR Blank Ot 785.0 TACHYCARDIA NOS 05/29/2018 PASTOR CISNEROS MD Ot 786.50 CHEST PAIN NOS 05/29/2018 SULEMA HUDSON MD Ot 397.0 TRICUSPID VALVE DISEASE 05/29/2018 SULEMA HUDSON MD Ot 401.9 HYPERTENSION NOS 05/29/2018 TRISTAN WRIGHT, SULEMA Ot 424.0 MITRAL VALVE DISORDER 05/29/2018 SULEMA HUDSON MD Ot 786.50 CHEST PAIN NOS 05/29/2018 SULEMA HUDSON MD Ot 401.9 HYPERTENSION NOS 05/29/2018 TRISTAN WRIGHT, SULEMA Ot 786.50 CHEST PAIN NOS 05/29/2018 AMELIA WRIGHT, PASTOR Blank Ot 251.2 HYPOGLYCEMIA NOS 05/29/2018 PASTOR CISNEROS MD Ot 790.29 OTHER ABNORMAL GLUCOSE 05/29/2018 PASTOR CISNEROS MD Ot 780.39 OTHER CONVULSIONS 05/29/2018 AMELIA WRIGHT, PASTOR Blank Ot 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 05/29/2018 PASTOR CISNEROS MD Ot 780.97 ALTERED MENTAL STATUS 05/29/2018 AMELIA WRIGHT, PASTOR Blank Ot 781.99 NERV/MUSCULOSKEL SYS SYMP NEC 05/29/2018 AMELIA WRIGHT, PASTOR J Ot 530.81 ESOPHAGEAL REFLUX 05/29/2018 AMELIA WRIGHT, PASTOR Blank Ot 553.3 DIAPHRAGMATIC HERNIA 05/29/2018 AMELIA WRIGHT, PASTOR Blank Ot 787.20 DYSPHAGIA, UNSPECIFIED 05/29/2018 YUKO GARRETT MD Ot 401.9 HYPERTENSION NOS 05/29/2018 YUKO GARRETT MD Ot 785.0 TACHYCARDIA NOS 05/29/2018 YUKO GARRETT MD Ot 785.1 PALPITATIONS 05/29/2018 YUKO GARRETT MD Ot 786.05 SHORTNESS OF BREATH 05/29/2018 JACOB NEWSOME MD Ot 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 05/29/2018 JACOB NEWSOME MD Ot 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 05/29/2018 JACOB NEWSOME MD Ot 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 05/29/2018 JACOB NEWSOME MD Ot 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 05/29/2018 YUKO GARRETT MD Ot I10 ESSENTIAL (PRIMARY) HYPERTENSION 05/29/2018 YUKO GARRETT MD Ot R00.2 PALPITATIONS 05/29/2018 YUKO GARRETT MD Ot R06.02 SHORTNESS OF BREATH 05/29/2018 GERRY WRIGHT, YUKO Blank Ot R07.89 OTHER CHEST PAIN 05/29/2018 PASTOR CISNEROS MD Ot E11.9 TYPE 2 DIABETES MELLITUS WITHOUT COMPLIC 05/29/2018 PASTOR CISNEROS MD Ot Z79.4 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 05/29/2018 PASTOR CISNEROS MD Ot E11.9 TYPE 2 DIABETES MELLITUS WITHOUT COMPLIC 05/29/2018 PASTOR CISNEROS MD Ot E66.9 OBESITY, UNSPECIFIED 05/29/2018 PASTOR CISNEROS MD Ot I73.9 PERIPHERAL VASCULAR DISEASE, UNSPECIFIED 05/29/2018 PASTOR CISNEROS MD Ot Z86.73 PRSNL HX OF TIA (TIA), AND CEREB INFRC W 05/29/2018 PASTOR CISNEROS MD Ot E11.9 TYPE 2 DIABETES MELLITUS WITHOUT COMPLIC 05/29/2018 PASTOR CISNEROS MD Ot M79.662 PAIN IN LEFT LOWER LEG 05/29/2018 PASTOR CISNEROS MD Ot R51 HEADACHE 05/29/2018 GILBERT GOMEZ MD Ot 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) THROMBOCYTHEMIA 05/29/2018 GILBERT GOMEZ MD Ot D68.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 05/29/2018 GILBERT GOMEZ MD Ot D72.829 ELEVATED WHITE BLOOD CELL COUNT, UNSPECI 05/29/2018 GILBERT GOMEZ MD Ot E78.5 HYPERLIPIDEMIA, UNSPECIFIED 05/29/2018 GILBERT GOMEZ MD Ot F17.210 NICOTINE DEPENDENCE, CIGARETTES, UNCOMPL 05/29/2018 GILBERT GOMEZ MD Ot I10 ESSENTIAL (PRIMARY) HYPERTENSION 05/29/2018 GILBERT GOMEZ MD Ot Z79.02 JAIL (CURRENT) USE OF ANTITHROMBOTI 05/29/2018 GILBERT GOMEZ MD Ot Z79.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 05/29/2018 GILBERT GOMEZ MD Ot R42 DIZZINESS AND GIDDINESS 05/29/2018 GILBERT GOMEZ MD Ot R51 HEADACHE 05/29/2018 IGOR ARANA MD, Ot 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) THROMBOCYTHEMIA 05/29/2018 IGOR ARANA MD Ot D72.829 ELEVATED WHITE BLOOD CELL COUNT, UNSPECI 05/29/2018 IGOR ARANA MD Ot E78.5 HYPERLIPIDEMIA, UNSPECIFIED 05/29/2018 IGOR ARANA MD Ot I10 ESSENTIAL (PRIMARY) HYPERTENSION 05/29/2018 IGOR ARANA MD Ot 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 05/29/2018 IGOR ARANA MD Ot I69.998 OTHER SEQUELAE FOLLOWING UNSPECIFIED CER 05/29/2018 IGOR ARANA MD Ot M62.81 MUSCLE WEAKNESS (GENERALIZED) 05/29/2018 IGOR ARANA MD Ot R00.0 TACHYCARDIA, UNSPECIFIED 05/29/2018 IGOR ARANA MD Ot Z79.899 OTHER JAIL (CURRENT) DRUG THERAPY 05/29/2018 MIRELLA MCMILLAN APRN Ot J43.8 OTHER EMPHYSEMA 05/29/2018 MIRELLA MCMILLAN DRUM HANDLER Ot R91.1 SOLITARY PULMONARY NODULE 05/29/2018 MIRELLA MCMILLAN DRUM HANDLER Ot Z72.0 TOBACCO USE 05/29/2018 MIRELLA MCMILLAN DRUM HANDLER Ot J30.2 OTHER SEASONAL ALLERGIC RHINITIS 05/29/2018 MIRLELA MCMILLAN DRUM HANDLER Ot J44.9 CHRONIC OBSTRUCTIVE PULMONARY DISEASE, U 05/29/2018 MIRELLA MCMILLAN DRUM HANDLER Ot R91.1 SOLITARY PULMONARY NODULE 05/29/2018 MIRELLA MCMILLAN DRUM HANDLER Ot R91.8 OTHER NONSPECIFIC ABNORMAL FINDING OF GIOVANNA 05/29/2018 MIRELLA MCMILLAN DRUM HANDLER Ot Z72.0 TOBACCO USE 05/29/2018 SOTERO UHIZAR DRUM HANDLER Ot K43.9 VENTRAL HERNIA WITHOUT OBSTRUCTION OR GA 05/29/2018 SOTERO HUIZAR DRUM HANDLER Ot R16.0 HEPATOMEGALY, NOT ELSEWHERE CLASSIFIED 05/29/2018 YUKO GARRETT MD Ot I10 ESSENTIAL (PRIMARY) HYPERTENSION 05/29/2018 YUKO GARRETT MD Ot J44.9 CHRONIC OBSTRUCTIVE PULMONARY DISEASE, U 05/29/2018 YUKO GARRETT MD Ot K21.9 GASTRO-ESOPHAGEAL REFLUX DISEASE WITHOUT 05/29/2018 YUKO GARRETT MD Ot R07.9 CHEST PAIN, UNSPECIFIED 05/29/2018 YUKO GARRETT MD Ot I10 ESSENTIAL (PRIMARY) HYPERTENSION 05/29/2018 YUKO GARRETT MD Ot J44.9 CHRONIC OBSTRUCTIVE PULMONARY DISEASE, U 05/29/2018 YUKO GARRETT MD Ot K21.9 GASTRO-ESOPHAGEAL REFLUX DISEASE WITHOUT 05/29/2018 GERRY WRIGHT, YUKO Blank Ot R07.9 CHEST PAIN, UNSPECIFIED 05/29/2018 SOTERO HUIZAR DRUM HANDLER Ot I70.0 ATHEROSCLEROSIS OF AORTA 05/29/2018 SOTERO HUIZAR DRUM HANDLER Ot I70.90 UNSPECIFIED ATHEROSCLEROSIS 05/29/2018 SOTERO HUIZAR DRUM HANDLER Ot K43.9 VENTRAL HERNIA WITHOUT OBSTRUCTION OR GA 05/29/2018 SOTERO HUIZAR DRUM HANDLER Ot K76.0 FATTY (CHANGE OF) LIVER, NOT ELSEWHERE C 05/29/2018 SOTERO HUIZAR DRUM HANDLER Ot N39.0 URINARY TRACT INFECTION, SITE NOT SPECIF 05/29/2018 SILVIA SPENCER DO Ot K76.0 FATTY (CHANGE OF) LIVER, NOT ELSEWHERE C 06/03/2018 MIRELLA MCMILLAN DRUM HANDLER Ot R06.02 SHORTNESS OF BREATH 06/03/2018 MIRELLA MCMILLAN DRUM HANDLER Ot R91.1 SOLITARY PULMONARY NODULE 06/03/2018 MIRELLA MCMILLAN DRUM HANDLER Ot Z72.0 TOBACCO USE 06/03/2018 LIDIA MCMILLANINE Shefali DRUM HANDLER Ot Z90.49 ACQUIRED ABSENCE OF OTHER SPECIFIED PART 06/06/2018 LIDIA MCMILLANINE E DRUM HANDLER Ot R06.02 SHORTNESS OF BREATH 06/06/2018 LIDIA MCMILLANINE E DRUM HANDLER Ot R91.1 SOLITARY PULMONARY NODULE 06/06/2018 MIRELLA MCMILLAN DRUM HANDLER Ot Z72.0 TOBACCO USE 06/06/2018 LIDIA MCMILLANINE E DRUM HANDLER Ot Z90.49 ACQUIRED ABSENCE OF OTHER SPECIFIED PART 06/28/2018 MIRELLA MCMILLAN DRUM HANDLER Ot R06.02 SHORTNESS OF BREATH 06/28/2018 MIRELLA MCMILLAN DRUM HANDLER Ot R91.1 SOLITARY PULMONARY NODULE 06/28/2018 MIRELLA MCMILLAN DRUM HANDLER Ot Z72.0 TOBACCO USE 06/28/2018 LIDIA MCMILLANINE Shefali DRUM HANDLER Ot Z90.49 ACQUIRED ABSENCE OF OTHER SPECIFIED PART 06/29/2018 AMELIA WRIGHT, PASTOR Blank Ot 719.40 JOINT PAIN-UNSPEC 06/29/2018 AMELIA WRIGHT, PASTOR Blank Ot 780.79 OTH MALAISE FATIGUE 06/29/2018 AMELIA WRIGHT, PASTOR Blank Ot 782.3 EDEMA 06/29/2018 AMELIA WRIGHT, PASTOR Blank Ot 785.0 TACHYCARDIA NOS 06/29/2018 AMELIA WRIGHT, PASTOR J Ot 719.40 JOINT PAIN-UNSPEC 06/29/2018 AMELIA WRIGHT, PASTOR J Ot 780.79 OTH MALAISE FATIGUE 06/29/2018 AMELIA WRIGHT, PASTOR J Ot 782.3 EDEMA 06/29/2018 AMELIA WRIGHT, PASTOR J Ot 785.0 TACHYCARDIA NOS 06/29/2018 AMELIA WRIGHT, PASTOR J Ot 305.1 TOBACCO USE DISORDER 06/29/2018 AMELIA WRIGHT, PSATOR J Ot 401.9 HYPERTENSION NOS 06/29/2018 AMELIA WRIGHT, PASTOR J Ot 428.0 CONGESTIVE HEART FAILURE NOS 06/29/2018 AMELIA WRIGHT, PASTOR J Ot 782.3 EDEMA 06/29/2018 AMELIA WRIGHT, PASTOR J Ot 785.0 TACHYCARDIA NOS 06/29/2018 AMELIA WRIGHT, PASTOR J Ot 786.50 CHEST PAIN NOS 06/29/2018 TRISTAN WRIGHT, ALBERTASEELAN Ot 397.0 TRICUSPID VALVE DISEASE 06/29/2018 TRISTAN WRIGHT, SULEMA Ot 401.9 HYPERTENSION NOS 06/29/2018 TRISTAN WRIGHT, JAYASEELAN Ot 424.0 MITRAL VALVE DISORDER 06/29/2018 TRISTAN WRIGHT, JAYASEELAN Ot 786.50 CHEST PAIN NOS 06/29/2018 TRISTAN WRIGHT, JAYASEELAN Ot 401.9 HYPERTENSION NOS 06/29/2018 TRISTAN WRIGHT, JAYASEELAN Ot 786.50 CHEST PAIN NOS 06/29/2018 AMELIA WRIGHT, PASTOR J Ot 251.2 HYPOGLYCEMIA NOS 06/29/2018 AMELIA WRIGHT, PASTOR J Ot 790.29 OTHER ABNORMAL GLUCOSE 06/29/2018 AMELIA WRIGHT, PASTOR J Ot 780.39 OTHER CONVULSIONS 06/29/2018 AMELIA WRIGHT, PASTOR J Ot 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 06/29/2018 AMELIA WRIHGT, PASTOR J Ot 780.97 ALTERED MENTAL STATUS 06/29/2018 AMELIA WRIGHT, PASTOR Blank Ot 781.99 NERV/MUSCULOSKEL SYS SYMP NEC 06/29/2018 AMELIA WRIGHT, PASTOR Blank Ot 530.81 ESOPHAGEAL REFLUX 06/29/2018 AMELIA WRIGHT, PASTOR Blank Ot 553.3 DIAPHRAGMATIC HERNIA 06/29/2018 AMELIA WRIGHT, PASTOR J Ot 787.20 DYSPHAGIA, UNSPECIFIED 06/29/2018 GERRY WRIGHT, YUKO J Ot 401.9 HYPERTENSION NOS 06/29/2018 GERRY WRIGHT, YUKO J Ot 785.0 TACHYCARDIA NOS 06/29/2018 YUKO GARRETT MD Ot 785.1 PALPITATIONS 06/29/2018 YUKO GARRETT MD Ot 786.05 SHORTNESS OF BREATH 06/29/2018 JACOB NEWSOME MD Ot 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 06/29/2018 JACOB NEWSOME MD Ot 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 06/29/2018 JACOB NEWSOME MD Ot 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 06/29/2018 JACOB NEWSOME MD Ot 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 06/29/2018 YUKO GARRETT MD Ot I10 ESSENTIAL (PRIMARY) HYPERTENSION 06/29/2018 YUKO GARRETT MD Ot R00.2 PALPITATIONS 06/29/2018 YUKO GARRETT MD Ot R06.02 SHORTNESS OF BREATH 06/29/2018 YUKO GARRETT MD Ot R07.89 OTHER CHEST PAIN 06/29/2018 PASTOR CISNEROS MD Ot E11.9 TYPE 2 DIABETES MELLITUS WITHOUT COMPLIC 06/29/2018 PASTOR CINSEROS MD Ot 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.4 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 06/29/2018 PASTOR CISNEROS MD Ot E11.9 TYPE 2 DIABETES MELLITUS WITHOUT COMPLIC 06/29/2018 PASTOR CISNEROS MD Ot E66.9 OBESITY, UNSPECIFIED 06/29/2018 PASTOR CISNEROS MD Ot I73.9 PERIPHERAL VASCULAR DISEASE, UNSPECIFIED 06/29/2018 PASTOR CISNEROS MD Ot Z86.73 PRSNL HX OF TIA (TIA), AND CEREB INFRC W 06/29/2018 PASTOR CISNEROS MD Ot E11.9 TYPE 2 DIABETES MELLITUS WITHOUT COMPLIC 06/29/2018 PASTOR CISNEROS MD Ot M79.662 PAIN IN LEFT LOWER LEG 06/29/2018 PASTOR CISNEROS MD Ot R51 HEADACHE 06/29/2018 GILBERT GOMEZ MD Ot 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) THROMBOCYTHEMIA 06/29/2018 GILBERT GOMEZ MD Ot D68.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 06/29/2018 GILBERT GOMEZ MD Ot D72.829 ELEVATED WHITE BLOOD CELL COUNT, UNSPECI 06/29/2018 GILBERT GOMEZ MD Ot E78.5 HYPERLIPIDEMIA, UNSPECIFIED 06/29/2018 GILBERT GOMEZ MD Ot F17.210 NICOTINE DEPENDENCE, CIGARETTES, UNCOMPL 06/29/2018 GILBERT GOMEZ MD Ot I10 ESSENTIAL (PRIMARY) HYPERTENSION 06/29/2018 GILBERT GOMEZ MD Ot Z79.02 JAIL (CURRENT) USE OF ANTITHROMBOTI 06/29/2018 GILBERT GOMEZ MD Ot Z79.82 JAIL (CURRENT) USE OF ASPIRIN 06/29/2018 GILBERT GOMEZ MD Ot R42 DIZZINESS AND GIDDINESS 06/29/2018 GILBERT GOMEZ MD Ot R51 HEADACHE 06/29/2018 IGOR ARANA MD Ot 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) THROMBOCYTHEMIA 06/29/2018 IGOR ARANA MD Ot D72.829 ELEVATED WHITE BLOOD CELL COUNT, UNSPECI 06/29/2018 IGOR ARANA MD Ot E78.5 HYPERLIPIDEMIA, UNSPECIFIED 06/29/2018 IGOR ARANA MD Ot I10 ESSENTIAL (PRIMARY) HYPERTENSION 06/29/2018 IGOR ARANA MD Ot 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 06/29/2018 IGOR ARANA MD Ot I69.998 OTHER SEQUELAE FOLLOWING UNSPECIFIED CER 06/29/2018 IGOR ARANA MD Ot M62.81 MUSCLE WEAKNESS (GENERALIZED) 06/29/2018 IGOR ARANA MD Ot R00.0 TACHYCARDIA, UNSPECIFIED 06/29/2018 IGOR ARANA MD Ot Z79.899 OTHER JAIL (CURRENT) DRUG THERAPY 06/29/2018 MIRELLA MCMILLAN APRN Ot J43.8 OTHER EMPHYSEMA 06/29/2018 MIRELLA MCMILLNA APRN Ot R91.1 SOLITARY PULMONARY NODULE 06/29/2018 MIRELLA MCMILLAN APRN Ot Z72.0 TOBACCO USE 06/29/2018 MIRELLA MCMILLAN APRN Ot J30.2 OTHER SEASONAL ALLERGIC RHINITIS 06/29/2018 MIRELLA MCMILLAN APRN Ot J44.9 CHRONIC OBSTRUCTIVE PULMONARY DISEASE, U 06/29/2018 MIRELLA MCMILLAN APRN Ot R91.1 SOLITARY PULMONARY NODULE 06/29/2018 MIRELLA MCMILLAN APRN Ot R91.8 OTHER NONSPECIFIC ABNORMAL FINDING OF GIOVANNA 06/29/2018 MIRELLA MCMILLAN APRN Ot Z72.0 TOBACCO USE 06/29/2018 SOTERO HUIZAR APRN Ot K43.9 VENTRAL HERNIA WITHOUT OBSTRUCTION OR GA 06/29/2018 HUIZAR, SOTERO R DRUM HANDLER Ot R16.0 HEPATOMEGALY, NOT ELSEWHERE CLASSIFIED 06/29/2018 GERRY WRIGHT, YUKO Blank Ot I10 ESSENTIAL (PRIMARY) HYPERTENSION 06/29/2018 GERRY WRIGHT, YUKO Blank Ot J44.9 CHRONIC OBSTRUCTIVE PULMONARY DISEASE, U 06/29/2018 GERRY WRIGHT, YUKO J Ot K21.9 GASTRO-ESOPHAGEAL REFLUX DISEASE WITHOUT 06/29/2018 GERRY WRIGHT, YUKO J Ot R07.9 CHEST PAIN, UNSPECIFIED 06/29/2018 GERRY WRIGHT, YUKO J Ot I10 ESSENTIAL (PRIMARY) HYPERTENSION 06/29/2018 GERRY WRIGHT, YUKO J Ot J44.9 CHRONIC OBSTRUCTIVE PULMONARY DISEASE, U 06/29/2018 GERRY WRIGHT, YUKO J Ot K21.9 GASTRO-ESOPHAGEAL REFLUX DISEASE WITHOUT 06/29/2018 GERRY WRIGHT, YUKO Blank Ot R07.9 CHEST PAIN, UNSPECIFIED 06/29/2018 MIRELLA MCMILLAN APRN Ot R06.02 SHORTNESS OF BREATH 06/29/2018 MIRELLA MCMILLAN APRN Ot R91.1 SOLITARY PULMONARY NODULE 06/29/2018 MIRELLA MCMILLAN APRN Ot Z72.0 TOBACCO USE 06/29/2018 MIRELLA MCMILLAN APRN Ot Z90.49 ACQUIRED ABSENCE OF OTHER SPECIFIED PART 06/29/2018 SOTERO HUIZAR DRUM HANDLER Ot I70.0 ATHEROSCLEROSIS OF AORTA 06/29/2018 SOTERO HUIZAR DRUM HANDLER Ot I70.90 UNSPECIFIED ATHEROSCLEROSIS 06/29/2018 SOTERO HUIZAR DRUM HANDLER Ot K43.9 VENTRAL HERNIA WITHOUT OBSTRUCTION OR GA 06/29/2018 SOTERO HUIZAR DRUM HANDLER Ot K76.0 FATTY (CHANGE OF) LIVER, NOT ELSEWHERE C 06/29/2018 SOTERO HUIZAR DRUM HANDLER Ot N39.0 URINARY TRACT INFECTION, SITE NOT SPECIF 06/29/2018 SILVIA SPENCER DO Ot K76.0 FATTY (CHANGE OF) LIVER, NOT ELSEWHERE C 07/10/2018 MIRELLA MCMILLAN APRN Ot J43.8 OTHER EMPHYSEMA 07/10/2018 MIRELLA MCMILLAN DRUM HANDLER Ot R91.1 SOLITARY PULMONARY NODULE 07/10/2018 MIRELLA MCMILLAN APRN Ot Z72.0 TOBACCO USE 08/11/2018 AMELIA WRIGHT, PASTOR Blank Ot E11.9 TYPE 2 DIABETES MELLITUS WITHOUT COMPLIC 08/11/2018 PASTOR CISNEROS MD Ot E66.9 OBESITY, UNSPECIFIED 08/11/2018 PASTOR CISNEROS MD Ot I73.9 PERIPHERAL VASCULAR DISEASE, UNSPECIFIED 08/11/2018 PASTOR CISNEROS MD Ot Z86.73 PRSNL HX OF TIA (TIA), AND CEREB INFRC W 08/11/2018 IGOR ARANA MD Ot 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) THROMBOCYTHEMIA 08/11/2018 IGOR ARANA MD, Ot D72.829 ELEVATED WHITE BLOOD CELL COUNT, UNSPECI 08/11/2018 IGOR ARANA MD Ot E78.5 HYPERLIPIDEMIA, UNSPECIFIED 08/11/2018 IGOR ARANA MD Ot I10 ESSENTIAL (PRIMARY) HYPERTENSION 08/11/2018 IGOR ARANA MD Ot 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 Results Test Result Range Complete urinalysis with reflex to culture - 08/16/16 15:00 Urine color determination RED NRG Urine clarity determination SLIGHTLY CLOUDY NRG Urine pH measurement by test strip 5 5-9 Specific gravity of urine by test strip 1.015 1.016-1.022 Urine protein assay by test strip, semi-quantitative [...] sediment leukocyte count by microscopy (number/high power field) [HPF] NRG Bacteria detection in urine sediment [...] culture - 08/16/16 15:00 Bacterial urine culture [id number] NRG COLONY COUNT 10,000/ML - 100,000/ML NRG FTX;REPORTABLE SENSITIVITY REPORTED 08/17 15:50 NRG FREE TEXT ENTRY 2 PLUS, LACTOBACILLUS 10-100,000/ML NRG FREE TEXT ENTRY 3 MIXED GRAM POSITIVE ASHLYN <10,000/ML NRG Bacterial susceptibility panel - 08/16/16 15:00 Gentamicin susceptibility test by minimum inhibitory concentration <= NRG Trimethoprim/sulfamethoxazole susceptibility test by minimum inhibitoryconcentration <= NRG Ampicillin susceptibility test by minimum inhibitory concentration >= NRG Tobramycin susceptibility test by minimum inhibitory concentration <= NRG Cefazolin susceptibility test by minimum inhibitory concentration <= NRG Ceftriaxone susceptibility test by minimum inhibitory concentration <= NRG Ampicillin/sulbactam susceptibility test by minimum inhibitory concentration 4 NRG Piperacillin/tazobactam susceptibility test by minimum inhibitory concentration <= NRG Ciprofloxacin susceptibility test by minimum inhibitory concentration <= NRG Meropenem susceptibility test by minimum inhibitory concentration <= NRG Nitrofurantoin susceptibility test by minimum inhibitory concentration 64 NRG Aztreonam susceptibility test by minimum inhibitory concentration <= NRG Extended spectrum beta lactamase (ESBL) producing [...] Automated erythrocyte mean corpuscular hemoglobin concentration measurement (mass/volume) 32 g/dL 32-36 Automated erythrocyte distribution width ratio 14.2 % 10.0- 14.5 Automated blood platelet count (count/volume) 353 10*3/uL [...] Blood monocytes automated count (number/volume) 0.9 10*3 0.0- 1.0 Automated eosinophil count 0.1 10*3/uL 0.0-0.3 Automated [...] Serum or plasma aspartate aminotransferase measurement (enzymatic activity/volume) 63 U/L 5-34 Serum or plasma alanine aminotransferase measurement (enzymatic activity/volume) 53 U/L 0-55 Serum or plasma protein measurement (mass/volume) 6.8 g/dL 6.4-8.2 Serum or plasma albumin measurement (mass/volume) 3.8 g/dL 3.2-4.5 Magnesium - 11/09/16 20:30 Magnesium 1.7 mg/dL 1.8-2.4 Serum or plasma troponin i.cardiac measurement (mass/volume) - 11/09/16 20:30 Serum or plasma troponin i.cardiac measurement (mass/volume) < ng/mL <0.30 Complete urinalysis with reflex to culture - 11/09/16 23:08 Urine color determination DILIP NRG Urine clarity determination CLEAR NRG Urine pH measurement by test strip 5 5-9 Specific gravity of urine by test strip 1.020 1.016-1.022 Urine protein assay by test strip, semi-quantitative [...] sediment leukocyte count by microscopy (number/high power field) [HPF] NRG Bacteria detection in urine sediment [...] Automated erythrocyte mean corpuscular hemoglobin concentration measurement (mass/volume) 32 g/dL 32-36 Automated erythrocyte distribution width ratio 13.7 % 10.0- 14.5 Automated blood platelet count (count/volume) 322 10*3/uL [...] Blood monocytes automated count (number/volume) 1.0 10*3 0.0- 1.0 Automated eosinophil count 0.1 10*3/uL 0.0-0.3 Automated [...] Serum or plasma aspartate aminotransferase measurement (enzymatic activity/volume) 70 U/L 5-34 Serum or plasma alanine aminotransferase measurement (enzymatic activity/volume) 38 U/L 0-55 Serum or plasma protein measurement (mass/volume) 7.9 g/dL 6.4-8.2 Serum or plasma albumin measurement (mass/volume) 4.0 g/dL 3.2-4.5 Serum or plasma troponin i.cardiac measurement (mass/volume) - 03/12/17 12:42 Serum or plasma troponin i.cardiac measurement (mass/volume) < ng/mL <0.30 Lipase - 03/12/17 12:42 Lipase 58 U/L 8-78 Serum or plasma thyrotropin measurement by detection limit <=0.05 miu/l (units/volume) - 03/12/17 12:42 Serum or plasma thyrotropin measurement by detection limit <=0.05 miu/l (units/volume) 1.52 u[iU]/mL 0.35-4.94 Serum or plasma C reactive protein measurement (mass/volume) - 03/12/17 12:42 Serum or plasma C reactive protein measurement (mass/volume) 1.52 mg/dL 0.00-0.50 Serum or plasma ethanol measurement (mass/volume) - 03/12/17 12:42 Serum or plasma ethanol measurement (mass/volume) 11 mg/dL <10 Complete urinalysis with reflex to culture - 03/12/17 14:30 Urine color determination YELLOW NRG Urine clarity determination CLEAR NRG Urine pH measurement by test strip 6.5 5-9 Specific gravity of urine by test strip 1.015 1.016-1.022 Urine protein assay by test strip, semi-quantitative [...] sediment leukocyte count by microscopy (number/high power field) NONE NRG Bacteria detection in urine sediment [...] Automated erythrocyte mean corpuscular hemoglobin concentration measurement (mass/volume) 33 g/dL 32-36 Automated erythrocyte distribution width ratio 13.9 % 10.0- 14.5 Automated blood platelet count (count/volume) 280 10*3/uL [...] Blood monocytes automated count (number/volume) 1.1 10*3 0.0- 1.0 Automated eosinophil count 0.2 10*3/uL 0.0-0.3 Automated [...] Serum or plasma aspartate aminotransferase measurement (enzymatic activity/volume) 62 U/L 5-34 Serum or plasma alanine aminotransferase measurement (enzymatic activity/volume) 57 U/L 0-55 Serum or plasma protein measurement (mass/volume) 7.1 g/dL 6.4-8.2 Serum or plasma albumin measurement (mass/volume) 3.8 g/dL 3.2-4.5 Serum or plasma troponin i.cardiac measurement (mass/volume) - 04/17/17 00:08 Serum or plasma troponin i.cardiac measurement (mass/volume) < ng/mL <0.30 CULTURE, URINE - 05/11/17 15:19 CULTURE, [...] 10.8 fL 7.5-12.5 ABSOLUTE NEUTROPHILS 7155 cells/uL 5535-0287 ABSOLUTE LYMPHOCYTES 4211 cells/uL 850-3900 ABSOLUTE MONOCYTES [...] Automated erythrocyte mean corpuscular hemoglobin concentration measurement (mass/volume) 33 g/dL 32-36 Automated erythrocyte distribution width ratio 13.9 % 10.0- 14.5 Automated blood platelet count (count/volume) 299 10*3/uL [...] Blood monocytes automated count (number/volume) 1.0 10*3 0.0- 1.0 Automated eosinophil count 0.2 10*3/uL 0.0-0.3 Automated [...] Serum or plasma aspartate aminotransferase measurement (enzymatic activity/volume) 83 U/L 5-34 Serum or plasma alanine aminotransferase measurement (enzymatic activity/volume) 52 U/L 0-55 Serum or plasma protein [...] Automated erythrocyte mean corpuscular hemoglobin concentration measurement (mass/volume) 33 g/dL 32-36 Automated erythrocyte distribution width ratio 14.2 % 10.0- 14.5 Automated blood platelet count (count/volume) 285 10*3/uL [...] Blood monocytes automated count (number/volume) 0.9 10*3 0.0- 1.0 Automated eosinophil count 0.2 10*3/uL 0.0-0.3 Automated [...] Serum or plasma aspartate aminotransferase measurement (enzymatic activity/volume) 59 U/L 5-34 Serum or plasma alanine aminotransferase measurement (enzymatic activity/volume) 42 U/L 0-55 Serum or plasma protein measurement (mass/volume) 7.3 g/dL 6.4-8.2 Serum or plasma albumin measurement (mass/volume) 3.9 g/dL 3.2-4.5 Magnesium - 09/15/17 09:25 Magnesium 1.9 mg/dL 1.8-2.4 Serum or plasma troponin i.cardiac measurement (mass/volume) - 09/15/17 09:25 Serum or plasma troponin i.cardiac measurement (mass/volume) < ng/mL <0.30 Myoglobin, serum - 09/15/17 09:25 Myoglobin, serum 19.0 ng/mL 10.0-92.0 Fibrin D-dimer FEU measurement in platelet poor plasma (mass/volume) - 09/15/17 09:25 Fibrin D-dimer FEU measurement in platelet [...] rickettsii IgG antibody assay (units/volume) < <1:16 Coupland spotted fever panel < <1:10 Francisella tularensis [...] 11.1 fL 7.5-12.5 ABSOLUTE NEUTROPHILS 7358 cells/uL 8408-4496 ABSOLUTE LYMPHOCYTES 2912 cells/uL 850-3900 ABSOLUTE MONOCYTES [...] Automated erythrocyte mean corpuscular hemoglobin concentration measurement (mass/volume) 32 g/dL 32-36 Automated erythrocyte distribution width ratio 14.1 % 10.0- 14.5 Automated blood platelet count (count/volume) 278 10*3/uL [...] Blood monocytes automated count (number/volume) 0.9 10*3 0.0- 1.0 Automated eosinophil count 0.1 10*3/uL 0.0-0.3 Automated [...] Serum or plasma aspartate aminotransferase measurement (enzymatic activity/volume) 56 U/L 5-34 Serum or plasma alanine aminotransferase measurement (enzymatic activity/volume) 25 U/L 0-55 Serum or plasma protein measurement (mass/volume) 8.2 g/dL 6.4-8.2 Serum or plasma albumin measurement (mass/volume) 3.9 g/dL 3.2-4.5 CALCIUM CORRECTED 9.7 mg/dL 8.5-10.1 Serum or plasma amylase measurement (enzymatic activity/volume) - 01/23/18 16:25 Serum or plasma amylase measurement (enzymatic activity/volume) 83 U/L 25-125 Lipase - 01/23/18 16:25 Lipase 133 U/L 8-78 Complete urinalysis with reflex to culture - 01/23/18 17:05 Urine color determination YELLOW NRG Urine clarity determination CLEAR NRG Urine pH measurement by test strip 7 5-9 Specific gravity of urine by test strip 1.010 1.016-1.022 Urine protein assay by test strip, semi-quantitative [...] sediment leukocyte count by microscopy (number/high power field) RARE NRG Bacteria detection in urine sediment [...] 08:17 CULTURE, URINE, ROUTINE SEE NOTE NRG Complete urinalysis with reflex to culture - 03/18/18 09:16 Urine color determination RED NRG Urine clarity determination BLOODY NRG Urine pH measurement by test strip 6.5 5-9 Specific gravity of urine by test strip 1.015 1.016-1.022 Urine protein assay by test strip, semi-quantitative 3+ NEGATIVE Urine glucose detection by automated test strip NEGATIVE NEGATIVE Erythrocytes detection in urine sediment by light microscopy 4+ NEGATIVE Urine ketones detection by automated test strip NEGATIVE NEGATIVE Urine nitrite detection by test strip POSITIVE NEGATIVE Urine total bilirubin detection by test strip 3+ NEGATIVE Urine urobilinogen measurement by automated test strip (mass/volume) 8 mg/dL NORMAL Urine leukocyte esterase detection by dipstick NEGATIVE NEGATIVE Automated urine sediment erythrocyte count by microscopy (number/high power field) > [HPF] NRG Automated urine sediment leukocyte count by microscopy (number/high power field) > [HPF] NRG Bacteria detection in urine sediment [...] culture YES NRG Bacterial urine culture - 03/18/18 09:16 Bacterial urine culture SEE COMMEN NRG COLONY COUNT . NRG FTX;REPORTABLE 80,000 CFU/ML NRG FREE TEXT ENTRY 2 SUSCEPTIBILITY REPORTED 03-20-18, 1204 NR FREE TEXT ENTRY 3 RESISTANT ORGANISM/CONTACT PRECAUTIONS NR RML Sensitivity Panel - 03/18/18 09:16 Gentamicin susceptibility test by minimum inhibitory concentration <= NRG Trimethoprim/sulfamethoxazole susceptibility test by minimum inhibitoryconcentration > NRG Levofloxacin susceptibility test by minimum inhibitory concentration <= NRG Ampicillin susceptibility test by minimum inhibitory concentration > NRG Cefazolin susceptibility test by minimum inhibitory concentration > NRG Ceftriaxone susceptibility test by minimum inhibitory concentration > NRG Ciprofloxacin susceptibility test by minimum inhibitory concentration <= NRG Meropenem susceptibility test by minimum inhibitory concentration <= NRG Nitrofurantoin susceptibility test by minimum inhibitory concentration 64 NRG Amoxicillin and clavulanate potassium susc CHANDLER R NRG Complete blood count (CBC) with automated white blood cell (WBC) differential - 03/18/18 09:50 Blood leukocytes automated count (number/volume) 15.1 10*3/uL 4.3-11.0 Blood erythrocytes automated count (number/volume) 4.76 10*6/uL 4.35-5.85 Venous blood hemoglobin measurement (mass/volume) 14.5 g/dL 11.5-16.0 Blood hematocrit (volume fraction) 44 % 35-52 Automated erythrocyte mean corpuscular volume 92 [foz_us] 80-99 Automated erythrocyte mean corpuscular hemoglobin (mass per erythrocyte) 31 pg 25-34 Automated erythrocyte mean corpuscular hemoglobin concentration measurement (mass/volume) 33 g/dL 32-36 Automated erythrocyte distribution width ratio 14.7 % 10.0- 14.5 Automated blood platelet count (count/volume) 335 10*3/uL 130-400 Automated blood platelet mean volume measurement 10.0 [foz_us] 7.4-10.4 Automated blood neutrophils/100 leukocytes 70 % 42-75 Automated blood lymphocytes/100 leukocytes 23 % 12-44 Blood monocytes/100 leukocytes 5 % 0-12 Automated blood eosinophils/100 leukocytes 1 % 0-10 Automated blood basophils/100 leukocytes 0 % 0-10 Blood neutrophils automated count (number/volume) 10.5 10*3 1.8-7.8 Blood lymphocytes automated count (number/volume) 3.5 10*3 1.0-4.0 Blood monocytes automated count (number/volume) 0.8 10*3 0.0- 1.0 Automated eosinophil count 0.2 10*3/uL 0.0-0.3 Automated blood basophil count (count/volume) 0.0 10*3/uL 0.0-0.1 Blood manual differential performed detection - 03/18/18 09:50 Blood monocytes/100 leukocytes 8 % NRG Manual blood segmented neutrophils/100 leukocytes 64 % NRG Blood band neutrophils/100 leukocytes 5 % NRG Manual blood lymphocytes/100 leukocytes 23 % NRG Manual eosinophils/100 leukocytes in nose 0 % NRG Manual blood basophils/100 leukocytes 0 % NRG Blood erythrocyte morphology finding identification NORMAL NRG Serum or plasma C reactive protein measurement (mass/volume) - 03/18/18 09:50 Serum or plasma C reactive protein measurement (mass/volume) 0.86 mg/dL 0.00-0.50 Comprehensive metabolic panel - 03/18/18 09:50 Serum or plasma sodium measurement (moles/volume) 138 mmol/L 135-145 Serum or plasma potassium measurement (moles/volume) 3.4 mmol/L 3.6-5.0 Serum or plasma chloride measurement (moles/volume) 97 mmol/L 98-107 Carbon dioxide 24 mmol/L 21-32 Serum or plasma anion gap determination (moles/volume) 17 mmol/L 5-14 Serum or plasma urea nitrogen measurement (mass/volume) 12 mg/dL 7-18 Serum or plasma creatinine measurement (mass/volume) 0.68 mg/dL 0.60-1.30 Serum or plasma urea nitrogen/creatinine mass ratio 18 NRG Serum or plasma creatinine measurement with calculation of estimated glomerular filtration rate > NRG Serum or plasma glucose measurement (mass/volume) 248 mg/dL 70-105 Serum or plasma calcium measurement (mass/volume) 9.5 mg/dL 8.5-10.1 Serum or plasma total bilirubin measurement (mass/volume) 0.8 mg/dL 0.1-1.0 Serum or plasma alkaline phosphatase measurement (enzymatic activity/volume) 120 U/L 40-136 Serum or plasma aspartate aminotransferase measurement (enzymatic activity/volume) 67 U/L 5-34 Serum or plasma alanine aminotransferase measurement (enzymatic activity/volume) 48 U/L 0-55 Serum or plasma protein measurement (mass/volume) 7.4 g/dL 6.4-8.2 Serum or plasma albumin measurement (mass/volume) 3.9 g/dL 3.2-4.5 CALCIUM CORRECTED 9.6 mg/dL 8.5-10.1 CULTURE, URINE - 06/14/18 18:24 CULTURE, URINE, ROUTINE SEE NOTE NRG Encounters ACCT No. Visit Date/Time Discharge Status Pt. Type Provider Facility Loc./Unit Complaint [id number] 07/28/2018 15:40:00 07/28/2018 23:59:59 [facility] Outpatient [facility] [id number] 06/14/2018 11:40:00 Document Registration [id number] 03/04/2018 12:00:00 Document Registration [id number] 01/03/2018 09:00:00 Document Registration [id number] 12/13/2017 16:00:00 Document Registration [id number] 11/01/2017 11:00:00 Document Registration [id number] 09/23/2017 09:40:00 Document Registration [id number] 08/26/2017 11:20:00 Document Registration [id number] 08/19/2017 16:05:00 Document Registration [id number] 08/02/2017 08:20:00 Document Registration [id number] 06/23/2017 16:40:00 Document Registration [id number] 06/17/2017 14:40:00 Document Registration [id number] 05/11/2017 14:45:00 Document Registration [id number] 01/06/2017 14:00:00 Document Registration [id number] 08/11/2018 05:32:00 08/11/2018 11:26:00 DIS Outpatient ZACK GRIMALDO MD [facility] PREOP INCISIONAL HERNIA [id number] 06/06/2018 08:08:00 06/06/2018 23:59:59 CLS Preadmit MIRELLA MCMILLAN DRUM HANDLER [facility] RT SOB,LUNG NODULE [id number] 06/06/2018 08:06:00 06/06/2018 23:59:59 CLS Preadmit MIRELLA MCMILLAN DRUM HANDLER [facility] RAD SOB,LUNG NODULE [id number] 05/31/2018 11:09:00 05/31/2018 23:59:59 CLS Outpatient MIRELLA MCMILLAN DRUM HANDLER [facility] RAD TOBACCO USER,LUNG NODULE,SOB [id number] 03/18/2018 08:51:00 03/18/2018 11:39:00 DIS Emergency AKBAR EVANS MD [facility] ER MULTIPLE COMPLAINTS [id number] 03/13/2018 11:54:00 03/13/2018 12:14:00 DIS Emergency THELMA FARAH DRUM HANDLER [facility] ER BRONCHITIS/SOB/COUGH IS WORSE [id number] 02/24/2018 21:21:00 02/24/2018 22:29:00 DIS Emergency RENY MEJIA [facility] ER REDNESS AT INSULIN SHOT SITE [id number] 02/02/2018 19:35:00 02/02/2018 21:29:00 DIS Emergency PRISCILLA HUNT [facility] ER SORE THROAT [id number] 01/27/2018 14:53:00 01/27/2018 23:59:59 CLS Outpatient SILVIA SPENCER DO [facility] RAD LT QUAD ABD PAIN [id number] 01/23/2018 15:52:00 01/23/2018 18:23:00 DIS Emergency RENY MEJIA [facility] ER TREATED FOR C-DIFF/DIARRHEA/ABD AND RECTAL PAIN [id number] 12/19/2017 08:22:00 12/19/2017 23:59:59 CLS Preadmit YASMEEN WRIGHT, COTOJAY [facility] ONC [id number] 12/07/2017 16:31:00 12/07/2017 18:45:00 DIS Emergency MAGDA MARTINEZ [facility] ER DIZZINESS/NAUSEA [id number] 12/05/2017 15:42:00 12/05/2017 23:59:59 CLS Outpatient SOTERO HUIZAR APRN [facility] RAD FLANK PAIN [id number] 11/24/2017 16:54:00 11/24/2017 18:08:00 DIS Emergency THELMA FARAH APRN [facility] ER DIZZINESS;NAUSEA;TICK BITE [id number] 11/04/2017 08:02:00 11/04/2017 09:00:00 DIS Emergency ASIF WRIGHT, BILLY Baeza [facility] ER HURTS WHEN URINATING [id number] 09/30/2017 12:57:00 09/30/2017 23:59:59 CLS Outpatient YUKO GARRETT MD [facility] CARD CHEST PAIN SYNDROME,GERD,HTN,COPD [id number] 09/19/2017 13:29:00 09/19/2017 23:59:59 CLS Outpatient YUKO GARRETT MD [facility] CARD CHEST PAIN SYNDROME,GERD,HTN,COPD [id number] 09/19/2017 13:11:00 09/19/2017 23:59:59 CLS Preadmit YUKO GARRETT MD [facility] CARD CHEST PAIN SYNDROME,GERD,HTN,COPD [id number] 09/15/2017 09:16:00 09/15/2017 12:28:00 DIS Emergency MEGHA WRIGHT, JULIENNE Mejias [facility] ER CP,STRAIN IN BACK,SOB [id number] 08/16/2017 20:47:00 08/16/2017 21:52:00 DIS Emergency THELMA FARAH APRN [facility] ER RUSSELL;NECK PAIN [id number] 06/23/2017 06:43:00 06/23/2017 23:59:59 CLS Outpatient SOTERO HUIZAR APRN [facility] [facility] RU[facility]IN [id number] 04/28/2017 09:51:00 04/28/2017 23:59:59 CLS Outpatient MIRELLA MCMILLAN DRUM HANDLER [facility] RAD R91.1,Z72.0 [id number] 04/27/2017 09:42:00 04/27/2017 23:59:59 CLS Outpatient MIRELLA MCMILLAN DRUM HANDLER [facility] RT I44.9 COPD [id number] 04/16/2017 22:16:00 04/17/2017 01:15:00 DIS Emergency RICHARD WRIGHT, GWEN Blank [facility] ER CHEST PAIN AND BACK PAIN FROM DRY COUGH [id number] 04/05/2017 09:16:00 04/05/2017 23:59:59 CLS Outpatient MIRELLA MCMILLAN DRUM HANDLER [facility] RAD R91.1 LUNG NODULE [id number] 03/29/2017 10:15:00 03/29/2017 23:59:59 CLS Preadmit SOTERO HUIZAR DRUM HANDLER [facility] RAD LUNG NODULE INCREASING IN SIZE [id number] 03/21/2017 00:21:00 03/21/2017 23:59:59 CLS Preadmit IGOR ARANA MD [facility] ONC [id number] 12/20/2016 15:01:00 03/20/2017 00:01:00 DIS Outpatient IGOR ARANA MD [facility] ONC [id number] 03/12/2017 12:32:00 03/12/2017 16:27:00 DIS Emergency PRISCILLA HUNT [facility] ER ABD PAIN, SHAKY, 4 PREVIOUS BRAIN- STEM FLORES [id number] 11/09/2016 20:08:00 11/09/2016 23:58:00 DIS Emergency AKBAR EVANS MD [facility] ER DIZZINESS,NAUSEA [id number] 06/29/2016 15:16:00 09/12/2016 00:01:00 DIS Outpatient GILBERT GOMEZ MD [facility] ONC [id number] 08/16/2016 13:54:00 08/16/2016 16:50:00 DIS Emergency CHEYENNE POLLARD PRISCILLA Esteban [facility] ER UTI [id number] 07/02/2016 10:14:00 07/02/2016 23:59:59 CLS Outpatient GILBERT GOMEZ MD [facility] RAD HEADACHE,DIZZINESS [id number] 12/18/2015 09:01:00 03/17/2016 00:01:00 DIS Outpatient GILBERT GOMEZ MD [facility] ONC [id number] 09/18/2015 12:52:00 10/29/2015 00:01:00 DIS Outpatient GILBERT GOMEZ MD [facility] ONC [id number] 09/12/2015 20:37:00 2015 01:00:00 DIS Emergency JOSE ADLER DO [facility] ER DIZZINESS [id number] 09/10/2015 01:28:00 09/10/2015 03:57:00 DIS Emergency AKBAR EVANS MD [facility] ER RUSSELL,BLURRY EYES,BLOOD SUGAR HIGH,DIZZY [id number] 07/24/2015 09:02:00 07/24/2015 23:59:59 CLS Outpatient GILBERT GOMEZ MD [facility] ONC [id number] 05/23/2015 23:06:00 05/24/2015 00:31:00 DIS Emergency RONAN SOTO MD [facility] ER FULL BODY TINGLING/NUMBNESS [id number] 05/22/2015 13:58:00 05/22/2015 16:11:00 DIS Emergency THELMA FARAH APRN [facility] ER DIZZINESS LIPS NUMBNESS [id number] 04/28/2015 11:14:00 04/28/2015 23:59:59 CLS Outpatient PASTOR CISNEROS MD [facility] RAD CALF PAIN,HEADACHES,DIABETES [id number] 03/28/2015 22:08:00 03/28/2015 23:59:59 CLS Emergency JOSE ADLER DO [facility] ER DIZZINESS,FACIAL NUMBNESS [id number] 03/24/2015 10:00:00 03/24/2015 23:59:59 CLS Preadmit PASTOR CISNEROS [facility] 2 DIABETES [id number] 12/23/2014 17:00:00 03/23/2015 00:01:00 DIS Outpatient PASTOR CISNEROS MD [facility] TYPE 2 DIABETES [id number] 03/21/2015 10:24:00 03/21/2015 23:59:59 CLS Outpatient PASTOR CISNEROS MD [facility] LAB TYPE 2 DIABETES INSULIN DEPENDENT [id number] 01/15/2015 08:11:00 01/15/2015 23:59:59 CLS Outpatient YUKO GARRETT MD [facility] CARD CPS,HTN,PALPITATIONS,SOB [id number] 12/02/2014 10:00:00 12/18/2014 00:01:00 DIS Outpatient PASTOR CISNEROS MD [facility] TYPE 2 DIABETES [id number] 07/25/2014 08:49:00 10/23/2014 00:01:00 DIS Outpatient GILBERT GOMEZ MD [facility] ONC [id number] 08/27/2014 15:20:00 08/27/2014 23:59:59 CLS Outpatient JACOB NEWSOME MD [facility] RAD FOLLOW UP PER RADIOLOGIST [id number] 08/26/2014 12:47:00 08/26/2014 23:59:59 CLS Outpatient JACOB NEWSOME MD [facility] RAD CEREBRAL ATHEROSCLEROSIS [id number] 07/23/2014 20:00:00 07/23/2014 23:59:59 CLS Preadmit YUKO GARRETT MD [facility] SLEEP SNORING,HTN,HX OF STROKE [id number] 07/18/2014 11:36:00 07/18/2014 15:39:00 DIS Emergency AKBAR EVANS MD [facility] ER DIZZINESS,NAUSEA [id number] 06/17/2014 08:15:00 06/17/2014 23:59:59 CLS Outpatient YUKO GARRETT MD [facility] CARD PALPITATIONS SOB HTN [id number] 01/24/2014 08:49:00 04/24/2014 00:01:00 DIS Outpatient JASON WRIGHT, GILBERT K [facility] ONC [id number] 02/13/2014 10:00:00 03/29/2014 16:22:00 DIS Outpatient PASTOR CISNEROS MD [facility] REHAB CVA [id number] 11/22/2013 09:41:00 01/14/2014 00:01:00 DIS Outpatient PASTOR CISNEROS MD [facility] REHAB CVA [id number] 10/25/2013 10:49:00 01/09/2014 00:01:00 DIS Outpatient JASON WRIGHT, GILBERT K [facility] ONC [id number] 12/18/2013 09:18:00 12/18/2013 23:59:59 CLS Outpatient PASTOR CISNEROS MD [facility] RAD CHOKING,TROUBLE SWALLOWING [id number] 12/14/2013 19:01:00 12/14/2013 20:23:00 DIS Emergency RONAN SOTO MD [facility] ER CONGESTION [id number] 10/04/2013 13:16:00 10/04/2013 23:59:59 CLS Outpatient PASTOR CISNEROS MD [facility] RAD NEUROLOGICAL CHANGES, RECENT STROKE [id number] 09/24/2013 18:13:00 09/28/2013 13:30:00 DIS Inpatient MICHELLE WRIGHT, SILVIA E [facility] IRF CVA [id number] 09/15/2013 14:10:00 09/18/2013 12:35:00 DIS Outpatient PASTOR CISNEROS MD [facility] SDC VERTIGO [id number] 09/07/2013 08:36:00 09/07/2013 23:59:59 CLS Outpatient PASTOR CISNEROS MD [facility] RT SEIZURE TYPE ACTIVITY [id number] 07/03/2013 12:37:00 07/03/2013 23:59:59 CLS Outpatient SULEMA HUDSON MD [facility] CARD CP,HTN [id number] 06/20/2013 08:30:00 06/20/2013 23:59:59 CLS Outpatient PASTOR CISNEROS MD [facility] LAB HYPOGLYCEMIA,FLUXUATING BLOOD SUGAR [id number] 06/08/2013 09:00:00 06/08/2013 23:59:59 CLS Outpatient SULEMA HUDSON MD [facility] CARD CP,HTN [id number] 05/21/2013 14:03:00 05/21/2013 23:59:59 CLS Outpatient PASTOR CISNEROS MD [facility] CARD HYPERTENSION,PERIPHERD EDEMA,SMOKER,CARDIMEGALY,CH [id number] 05/17/2013 21:44:00 05/17/2013 23:59:59 CLS Outpatient PASTOR CISNEROS MD [facility] LAB LIPID PANEL [id number] 05/17/2013 12:24:00 05/17/2013 23:59:59 CLS Outpatient PASTOR CISNEROS MD [facility] LAB EDEMA,FATIGUE,TACHYCARDIA,JOINT PAIN [id number] 02/02/2013 14:11:00 02/23/2013 10:40:00 DIS Outpatient PASTOR CISNEROS MD [facility] REHAB NECK PAIN, UPPER BACK PAIN RADIATING LEFT SHOULDER [id number] 10/31/2012 14:21:00 10/31/2012 23:59:59 CLS Outpatient PASTOR CISNEROS MD [facility] RAD NECK PAIN,TENDERNESS RADIATING FROM ARM TO BACK OF [id number] 09/04/2012 08:56:00 09/04/2012 23:59:59 CLS Outpatient PASTOR CISNEROS MD [facility] RAD ABD PAIN,BLOATING R. SIDED FIRMNESS [id number] 09/01/2012 09:16:00 09/01/2012 10:45:00 DIS Outpatient PASTOR CISNEROS MD [facility] ABNORMAL MRI OF BRAIN;MULTIPLE SCLEROSIS [id number] 07/18/2012 08:50:00 07/18/2012 23:59:59 CLS Outpatient PASTOR CISNEROS MD [facility] RAD FOLLOW UP ABD MRI [id number] 08/17/2018 06:51:00 ACT Outpatient ZACK GRIMALDO MD [facility] INCISIONAL HERNIA [id number] 08/26/2014 12:46:00 Document Registration [id number] 05/19/2014 09:39:00 Document Registration [id number] 05/11/2014 19:49:00 Document Registration [id number] 06/26/2012 11:26:00 Document Registration [id number] 05/19/2012 09:58:00 Document Registration [id number] 04/20/2012 12:51:00 Document Registration [id number] 01/04/2012 12:04:00 Document Registration [id number] 12/31/2011 08:48:00 Document Registration [id number] 11/22/2011 22:34:00 Document Registration [id number] 10/08/2011 22:58:00 Document Registration [id number] 10/07/2011 13:12:00 Document Registration [id number] 07/26/2011 14:37:00 Document Registration [id number] 04/05/2011 08:01:00 Document Registration [id number] 02/03/2011 11:11:00 Document Registration [id number] 02/01/2011 11:54:00 Document Registration [id number] 12/08/2010 08:13:00 Document Registration [id number] 08/25/2009 10:44:00 Document Registration
[2018-08-17] MEDS ORDERED: HYDROcodone/APAP 5 MG/325 MG (LORTAB) TAB PO ONE (08:30)
[2018-08-17] MEDS ORDERED: fentaNYL INJECTION 100 MCG/2 ML AMP IVP PRN (08:30)
[2018-08-17] MEDS ORDERED: ACETAMINOPHEN 325 MG TABLET PO PRN (08:30)
[2018-08-17] MEDS ORDERED: ONDANSETRON 4 MG/2 ML (SDV) Z0FRAN IVP PRN ×2 (08:30→11:30)
--- NOTE | 2018-08-17 08:30 | Progress Note-Pre Operative ---
Pre-Operative Progress Note H&P Reviewed The H&P was reviewed, patient examined and no changes noted. Date Seen by Provider: August 17, 2018 Time Seen by Provider: 08:25 Date H&P Reviewed: August 17, 2018 Time H&P Reviewed: 08:20 Pre-Operative Diagnosis: Symptomatic ventral abdominal incisional hernia PIPPA ZAFAR APRN August 17, 2018 08:30
[2018-08-17] MEDS ORDERED: HYDR-3816 PO (08:35)
--- NOTE | 2018-08-17 08:35 | Discharge Inst-Surgical ---
D/C Lap Instructions-KIDO New, Converted, or Re-Newed RX: RX on Chart Follow Up Appt in 2 weeks Activity as tolerated No driving for 24 hours No [address] while on pain medications Incentive Spirometry use every 2 hours while awake Regular Diet Symptoms to Report: Fever over 101 degree F, Nausea/Vomiting Infection Signs and Symptoms to report: Increased redness, Foul odor of wound, Increased drainage Bathing instructions: May shower Operative Area Clean/Dry; Keep incision clean/dry If any problems/questions: Contact your physician or go to Emergency Room PIPPA ZAFAR APRN August 17, 2018 08:35
[2018-08-17] MEDS ORDERED: PHENYLEPHRINE 100 MCG/ML 10 ML (ANESTHESIA) SYR ONE (09:14)
[2018-08-17] MEDS ORDERED: HYDROmorphone 2 MG/ML VIAL (DILAUDID) ONE (09:25)
[2018-08-17] MEDS ORDERED: ROPIVACAINE 5MG/ML 30ML VIAL ONE ×2 (09:54→11:28)
[2018-08-17] MEDS ORDERED: GLYCOPYRROLATE 0.2 MG/ML (ROBINUL) 2 ML VIAL ONE (10:02)
[2018-08-17] MEDS ORDERED: NEOSTIGMINE 1 MG/ML 5 ML SYRINGE ONE (10:02)
--- NOTE | 2018-08-17 10:39 | Progress Note-Post Operative ---
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
[2018-08-17] MEDS ORDERED: NALOXONE 0.4 MG/ML 1 ML (NARCAN) VIAL ONE (11:09)
[2018-08-17] MEDS: NALOXONE 0.4 MG/ML 1 ML (NARCAN) VIAL IV PRN ×2 (11:15→11:18)
[2018-08-17] MEDS ORDERED: fentaNYL INJECTION 100 MCG/2 ML AMP IVP ONE (11:30)
--- NOTE | 2018-08-17 13:56 | NUR ---
1320 - PT REPORTS PAIN IN ABD ONLY WHEN COUGHING OR MOVING. REFUSES PAIN MEDS AT THIS TIME. Addendum: 08/17/18 at 1357 by SAMREEN GONZALEZ RN Amended: Links added.
--- NOTE | 2018-08-17 14:18 | Anesthesia-General Post-Op ---
General Patient Condition Mental Status/LOC: Same as Preop Cardiovascular: Satisfactory Nausea/Vomiting: Absent Respiratory: Satisfactory Pain: Controlled Complications: Absent Post Op Complications Complications None Follow Up Care/Instructions Patient Instructions None needed. Anesthesia/Patient Condition Patient Condition Patient is doing well, no complaints, stable vital signs, no apparent adverse anesthesia problems. No complications reported per nursing. D/C home per [facility] Criteria: Yes JESSICA MADRIGAL CRNA August 17, 2018 14:18
--- NOTE | 2018-08-17 15:39 | OPERATIVE REPORT ---
DATE OF SERVICE: 08/17/2018 ATTENDING WEB DESIGNER: Fifi Bingham APRN PREOPERATIVE DIAGNOSIS: Symptomatic reducible ventral abdominal incisional hernia. POSTOPERATIVE DIAGNOSIS: Symptomatic reducible ventral abdominal incisional hernia with the defect approximately 3 cm in size and omentum within the hernia sac. PROCEDURE: Open ventral abdominal incisional hernia repair with mesh. SURGEON: Zack Grimaldo MD ELECTRIC METER TESTER: Brennon Blackwell APRN. ANESTHESIA: General endotracheal. ESTIMATED BLOOD LOSS: Minimal. FINDINGS: Ventral abdominal incisional hernia above the umbilicus with a defect approximately 3 cm in size. Omentum within the hernia sac. DISPOSITION: The patient tolerated the procedure well. The patient is a 47-year-old female who we had seen before in the past. She is being seen for an incisional hernia, which she first noticed approximately 6 months ago. She reports that an outpouching above the umbilicus was detected and grew larger in size and became more painful. She did have an attempted laparoscopic cholecystectomy; however, this was converted to an open cholecystectomy with a right Birdie incision. A CT scan was performed 01/2018 and at that time a ventral abdominal hernia was identified. The patient was brought to the operating room, laid supine on the table. After adequate IV pain and sedating medications and general endotracheal intubation, the abdomen was prepped and draped in standard surgical fashion. A 0.5% Marcaine with epinephrine was then used to anesthetize the overlying skin to the supraumbilical rim. A crescent-shaped skin incision was made using a 15 blade. We then proceeded with dissection of the subcutaneous fat to the fascia. The defect was approximately 3 to 4 cm above the umbilicus. The hernia was detected as well as redundant fascia within the region. The area was then cleared off to good stronger fascia. The hernia sac was then opened using Metzenbaum scissors. There was only omentum within the hernia sac. The hernia sac as well as the adherent omentum were then dissected using electrocautery with visualization of good hemostasis. There were omental adhesions towards the anterior abdominal wall to the peritoneal lining, which were dissected using blunt dissection. Good hemostasis was observed. The hernia defect was approximately 3 cm in size and an 8 cm coated polypropylene mesh was then placed into the defect and sutured to the fascial in the transfascial manner using interrupted 0 Prolene sutures. Good hemostasis was observed. During the exploration, there were no other hernias identified as well. The subcutaneous tissue was then reapproximated using 3-0 Vicryl interrupted sutures. Skin was closed using 4-0 Monocryl running subcuticular suture. Wound was then cleaned, covered with Dermabond followed by tonsil sponges, 4 x 4's, then a large OPSITE and abdominal binder. The patient tolerated the procedure well. We will start IV and oral pain medication as well as a clear liquid diet. When she is tolerating clears, has good pain control with oral pain medications and ambulating well, we will discharge her home. She will be instructed to do no heavy lifting or exertion for the next six weeks. Job ID: [id number] DocumentID: [id number] Dictated Date: 08/17/2018 10:56:05 Paint Tester Date: 08/17/2018 15:38:20 Dictated By: ZACK GRIMALDO MD
== END 2018-08-17 15:00 | disposition home or self-care (01) ==
LOC: SDC 06:51
PROVIDERS: ATTEND Surgery
DX: K43.2 Incisional hernia without obstruction or gangrene (principal); I10 Essential (primary) hypertension; I25.10 Atherosclerotic heart disease of native coronary artery without angina pectoris; E11.9 Type 2 diabetes mellitus without complications; E78.00 Pure hypercholesterolemia, unspecified; K21.9 Gastro-esophageal reflux disease without esophagitis; F17.210 Nicotine dependence, cigarettes, uncomplicated; I69.351 Hemiplegia and hemiparesis following cerebral infarction affecting right dominant side; K59.00 Constipation, unspecified; E66.9 Obesity, unspecified; Z68.31 Body mass index [BMI] 31.0-31.9, adult; Z79.02 Long term (current) use of antithrombotics/antiplatelets; Z79.82 Long term (current) use of aspirin; Z79.4 Long term (current) use of insulin; Z79.899 Other long term (current) drug therapy
CPT/HCPCS: 82962; 84703; 87081

== ENCOUNTER → 2018-08-21 | Outpatient (CLI) | payer MEDICARE, MEDICAID ==
[~2018-08-21] MED LIST changes: +HYDR-3816 PO
[2018-08-21 11:51] LABS: CLARITY,URINE VERY CLOUDY; GLUCOSE, URINE (UA) 1+ (NEGATIVE); KETONES,URINE NEGATIVE (NEGATIVE); LEUKOCYTE ESTERASE ,URINE 3+ (NEGATIVE); NITRITE,URINE POSITIVE (NEGATIVE); PH,URINE 7 (5-9); PROTEIN,URINE 2+ (NEGATIVE); UROBILINOGEN,URINE 12 MG/DL (NORMAL)
[2018-08-21 12:13] LABS: BILIRUBIN,URINE 3+ (NEGATIVE)
[2018-08-21 12:15] LABS: BACTERIA,URINE LARGE /HPF; COLOR,URINE ORANGE; WBC,URINE TNTC /HPF
== END ==
LOC: LAB 11:34
PROVIDERS: ATTEND Surgery
DX: R30.0 Dysuria (principal)
CPT/HCPCS: 81000; 87077; 87088; 87186

== ENCOUNTER → 2018-11-01 | Outpatient (CLI) | payer MEDICARE, MEDICAID ==
[~2018-11-01] MED LIST changes: -D-ME118S7 PO; +PROM118S4 PO
[2018-11-01 09:58] LABS: HEMOGLOBIN 13.5 G/DL (11.5-16.0); MEAN PLATELET VOLUME 11.4 FL (7.4-10.4); RED CELL DISTRIBUTION WIDTH 14.4 % (10.0-14.5); WHITE BLOOD COUNT 11.3 10^3/uL (4.3-11.0)
[2018-11-01 10:19] LABS: ALANINE AMINOTRANSFERASE 26 U/L (0-55); ALBUMIN 3.8 GM/DL (3.2-4.5); ALKALINE PHOSPHATASE 162 U/L (40-136); BILIRUBIN,TOTAL 0.7 MG/DL (0.1-1.0); BUN/CREATININE RATIO 14; CALCIUM 9.6 MG/DL (8.5-10.1); CARBON DIOXIDE 32 MMOL/L (21-32); CHLORIDE 95 MMOL/L (98-107); CREATININE SERUM 0.74 MG/DL (0.60-1.30); GFR ESTIMATED > 60; GLUCOSE 274 MG/DL (70-105); POTASSIUM 4.2 MMOL/L (3.6-5.0); SODIUM 138 MMOL/L (135-145); TOTAL PROTEIN 7.9 GM/DL (6.4-8.2)
[2018-11-03 11:48] LABS: CHOLESTEROL 105 MG/DL (< 200); HDL CHOLESTEROL 18 MG/DL (40-60); TRIGLYCERIDES 239 MG/DL (<150); VLDL CHOLESTEROL 48 MG/DL (5-40)
== END ==
LOC: LAB 09:46
PROVIDERS: ATTEND Physician Assistant
DX: J44.9 Chronic obstructive pulmonary disease, unspecified (principal); I10 Essential (primary) hypertension; K21.9 Gastro-esophageal reflux disease without esophagitis
CPT/HCPCS: 36415; 80053; 85027

== ENCOUNTER → 2018-11-01 | Outpatient (CLI) | payer MEDICARE, MEDICAID ==
[~2018-11-01] MED LIST changes: +HOLD METFORMIN - RECEIVED CONTRAST 20 ML VIAL IV SCH; +IOHEXOL 350 MG/ML 100 ML (OMNIPAQUE 350) VIAL IV ONE; +NS 100 ML (IVPB) BAG IV ONE
--- NOTE | 2018-11-01 11:45 | Diagnostic Imaging Report ---
PROCEDURE: CT abdomen and pelvis with contrast. TECHNIQUE: Multiple contiguous axial images were obtained through the abdomen and pelvis after administration of intravenous contrast. Auto Exposure Controls were utilized during the CT exam to meet ALARA standards for radiation dose reduction. INDICATION: Left upper quadrant and left lower quadrant abdominal pain as well as abdominal bloating. COMPARISON: Correlation is made with prior CT of the abdomen and pelvis from 01/27/2018. FINDINGS: The lung bases are clear. The liver does appear to be enlarged measuring up to approximately 24 cm. Diffuse low density is present consistent with hepatic steatosis. No discrete liver mass is identified. Gallbladder appears to be surgically absent. No biliary duct dilatation is seen. Pancreas and spleen are unremarkable. No adrenal mass is identified. Kidneys are unremarkable. Aorta is non-aneurysmal. There appear to be postsurgical changes of the anterior abdominal wall midline. There is small fat-containing hernia in the right abdomen, likely spigelian type hernia. No herniated bowel loops are seen. Small and large bowel loops are normal caliber. No obstruction is identified. There is diverticulosis of the sigmoid but no acute diverticulitis. There is no ascites. The bladder and uterus are unremarkable. Bony structures are nonacute. IMPRESSION: 1. Hepatomegaly and hepatic steatosis. 2. Uncomplicated diverticulosis. 3. Right abdominal spigelian hernia containing fat. No herniated bowel loops or evidence of bowel obstruction is seen. 4. No acute feature in the abdomen or pelvis is identified. Dictated by: Dictated on workstation # [id number]
== END ==
LOC: RAD 09:42
PROVIDERS: ATTEND Surgery
DX: K76.0 Fatty (change of) liver, not elsewhere classified (principal); K57.30 Diverticulosis of large intestine without perforation or abscess without bleeding; K45.8 Other specified abdominal hernia without obstruction or gangrene; Z98.890 Other specified postprocedural states
CPT/HCPCS: 74177

== ENCOUNTER → 2018-11-30 | Outpatient (CLI) | payer MEDICARE, MEDICAID ==
[~2018-11-30] MED LIST changes: -HOLD METFORMIN - RECEIVED CONTRAST 20 ML VIAL IV SCH; -IOHEXOL 350 MG/ML 100 ML (OMNIPAQUE 350) VIAL IV ONE; -NS 100 ML (IVPB) BAG IV ONE
--- NOTE | 2018-11-30 09:59 | Diagnostic Imaging Report ---
PROCEDURE: MR imaging of the brain without contrast. TECHNIQUE: Multiplanar, multisequence MR imaging of the brain was performed without contrast. INDICATION: Headaches. Anorexia. Carotid artery disease. COMPARISON: CT head without contrast 11/24/2017. CTA head and neck, 03/12/2017. 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 No restricted water diffusion. No hemosiderin deposition. No other abnormal intracranial signal. Normal morphology including the major midline structures, sella, posterior fossa and cerebellar pontine angle. Globes are negative. Normal intracranial flow voids. No hydrocephalus or extra-axial fluid collections. The paranasal sinuses and mastoids are clear. Normal bone marrow signal. IMPRESSION: 1. No acute intracranial MRI findings. 2. 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 Dictated by: Dictated on workstation # [id number]
--- NOTE | 2018-11-30 10:01 | Diagnostic Imaging Report ---
PROCEDURE: MR angiography of the brain without the use of contrast. TECHNIQUE: 3D bkrb-hs-pajlai non contrast enhanced MR angiography of the head was performed. A source data was reformatted into rotating MIP projections. INDICATION: Headaches. Anorexia. History of carotid artery disease. COMPARISON: CTA head and neck 03/12/2017. FINDINGS: Diminutive left vertebral artery is stable. The basilar, right vertebral, bilateral intracranial ICA, ALEJANDRA, MCA and OIL PUMP STATION OPERATOR CHIEF are widely patent without evidence of aneurysm or dissection. Prominent right posterior communicating artery. The anterior communicating artery appears intact. IMPRESSION: No high-grade narrowing, aneurysm or dissection involving the major intracranial arteries. Dictated by: Dictated on workstation # [id number]
== END ==
LOC: RAD 08:28
PROVIDERS: ATTEND Psychiatry & Neurology Neurology
DX: I77.74 Dissection of vertebral artery (principal); I63.9 Cerebral infarction, unspecified; Z86.79 Personal history of other diseases of the circulatory system; R63.0 Anorexia
CPT/HCPCS: 70544; 70551

== ENCOUNTER → 2019-03-26 | Outpatient (CLI) | payer MEDICARE, MEDICAID ==
--- NOTE | 2019-03-26 13:13 | Diagnostic Imaging Report ---
INDICATION: Routine screening. Comparison is made with prior mammogram from 10/07/2011 and 02/27/2008. 2-D and 3-D bilateral screening mammography was performed with CAD. Scattered fibroglandular densities are identified bilaterally. The parenchymal pattern is stable. No mass or malignant appearing microcalcifications are seen. Axillae are unremarkable. IMPRESSION: BI-RADS Category 2 No mammographic features suspicious for malignancy are identified. ACR BI-RADS Category 2: Benign findings. Result letter will be mailed to the patient. Note: At least 10% of breast cancer is not imaged by mammography. Dictated by: Dictated on workstation # [id number]
== END ==
LOC: RAD 08:09
PROVIDERS: ATTEND Nurse Practitioner Family
DX: Z12.31 Encounter for screening mammogram for malignant neoplasm of breast (principal)
CPT/HCPCS: 77067

== ENCOUNTER 2019-04-24 23:04 | Emergency (ER) | payer MEDICARE, MEDICAID ==
[~2019-04-24] VITALS: Ht 160 cm; Wt 75.9 kg
[~2019-04-24 23:04] MED LIST changes: -METF750T2 PO; +METF750T45 PO
--- NOTE | 2019-04-24 23:42 | ED GU-Female ---
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 STATES SHE HAS HAD SOME SMALL CLOTS. STATES BLEEDING IS HEAVIER WHEN SHE STANDS UP C/O LOWER ABDOMINAL CRAMPING WELL STATES SHE WANTS CHECKED TO MAKE SURE SHE IS NOT ANEMIC. 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 PT STATES SHE HAS NOT BEEN SEXUALLY ACTIVE FOR 5 YEARS. PT'S LAST PERIOD WAS 10 OR 11 MONTHS AGO--STATES SHE IS PERIMENOPAUSAL PT IS FOLLOWED BY DR. PARNELL, AND SAW HIM 2 WEEKS AGO, AND PT STATES SHE IS SUPPOSED TO HAVE A HYSTERECTOMY AND A BLADDER SLING, BUT CANNOT SEE DR. HILL FOR UROLOGY CONSULT UNTIL 05/03/19. THEREFORE SURGERY IS NOT SCHEDULED YET HAS NOT TAKEN ANYTHING FOR PAIN AT ANY TIME PT IS DIABETIC, DID NOT CHECK HER BLOOD SUGAR, BUT ATE AND TOOK HER INSULIN JUST PRIOR TO ARRIVAL. 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 PARNELL Allergies and Home Medications Allergies Coded Allergies: Penicillins (Verified Allergy, Severe, RASH/BREATHING DIFFICULTY, 08/11/18) codeine (Verified Allergy, Severe, BREATHING DIFFICULTY, 08/11/18) erythromycin base (Unverified Allergy, Mild, N/V, 08/11/18) nitrofurantoin (Verified Allergy, Mild, N/V, 08/11/18) Home Medications Aspirin 81 Mg Tab.chew, 81 MG PO DAILY, (Reported) Atorvastatin Calcium 80 Mg Tablet, 80 MG PO HS, (Reported) Benzonatate 100 Mg Capsule, 200 MG PO Q8H PRN for COUGH Prescribed by: PRISCILLA QUINN on 02/02/182101 Clopidogrel Bisulfate 75 Mg Tablet, 75 MG PO DAILY, (Reported) Diltiazem HCl 120 Mg Tablet, 120 MG PO DAILY, (Reported) Estradiol 1 Mg Tablet, 1 MG PO Q48H, (Reported) Famotidine 20 Mg Tablet, 20 MG PO BID PRN for HEARTBURN, (Reported) Hydrochlorothiazide 25 Mg Tablet, 25 MG PO DAILY, (Reported) Hydrocodone/Acetaminophen 1 Each Tablet, 1-2 TAB PO Q4H Prescribed by: PIPPA ZAFAR on 08/17/18 0835 Insulin Aspart 300 Units/3 Ml Solution, 10 UNITS SQ AC, (Reported) Insulin Determir 1,000 Units/10 Ml Soln, 25 UNITS SQ DAILY, (Reported) Insulin Determir 1,000 Units/10 Ml Soln, 30 UNITS SQ HS, (Reported) Medroxyprogesterone Acetate 2.5 Mg Tablet, 2.5 MG PO Q48H, (Reported) Metformin HCl 750 Mg Tab.er.24h, 750 MG PO BID, (Reported) Metoprolol Tartrate 25 Mg Tablet, 25 MG PO BID, (Reported) Nystatin 100,000 Unit/1 Ml Oral.susp, 5 ML PO PRN, (Reported) Ondansetron 4 Mg Tab.rapdis, 4 MG PO Q4H PRN for NAUSEA/VOMITING, (Reported) Pantoprazole Sodium 40 Mg Tablet.dr, 40 MG PO BID, (Reported) Potassium Chloride 10 Meq Capsule.er, 20 MEQ PO DAILY, (Reported) Saxagliptin HCl 5 Mg Tablet, 5 MG PO DAILY, (Reported) Sennosides 8.6 Mg Tablet, 2 TAB PO HS, (Reported) Sucralfate 1 Gm Tablet, 1 GM PO PRN, (Reported) Patient Home Medication List Home Medication List Reviewed: Yes Review of Systems Review of Systems Constitutional: no symptoms reported; No diaphoresis, No dizziness Respiratory: no symptoms reported Cardiovascular: no symptoms reported Gastrointestinal: see HPI, abdominal pain; No nausea, No vomiting Genitourinary: see HPI; denies flank pain : No LMP: Apr 08, 2019 Musculoskeletal: no symptoms reported Skin: no symptoms reported Psychiatric/Neurological: No Symptoms Reported Endocrine: No Symptoms Reported Hematologic/Lymphatic: See HPI; Denies Anemia, Denies Easy Bleeding, Denies Easy Bruising Past Suqgxns-Glagxs-Nypltp Hx Past Med/Social Hx: Reviewed and Corrections made Patient Social History Smoking Status: Current Everyday Smoker Type Used: Cigarettes 2nd Hand Smoke Exposure: Yes Recent Foreign Travel: No Contact w/Someone Who Travel: No Recent Hopitalizations: No Immunizations Up To Date Tetanus Booster (TDap): Unknown PED Vaccines UTD: No Date of Influenza Vaccine: Dec 26, 2017 Seasonal Allergies Seasonal Allergies: No Past Medical History Surgeries: Yes (EGD/COLONOSCOPY; TOE NAIL REMOVED) Section, Gallbladder, Tubal Ligation Respiratory: Yes (LEFT LUNG NODULE) Cardiac: Yes (TACHYCARDIA) High Cholesterol, Hypertension, Irregular Heartbeat Neurological: Yes (r sided numbness r/t previous stroke, STROKE X4) Headaches /Migraines, Stroke, Vertigo Reproductive Disorders: Yes Female Reproductive Disorders: Menstrual Problems, Endometriosis 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 Sexually Transmitted Disease: No Genitourinary: Yes UTI-Chronic Gastrointestinal: Yes Gastroesophageal Reflux, Chronic Constipation, Hiatal Hernia Musculoskeletal: Yes Arthritis, Chronic Back Pain Endocrine: Yes Diabetes, Insulin dep HEENT: Yes (GLASSES, DENTURES) Loss of Vision: Bilateral Cancer: No Psychosocial: Yes Anxiety Integumentary: No Blood Disorders: Yes ("CLOTTING DISORDER", chronic leukocytosis) Adverse Reaction/Blood Tranf: No (HAS HAD BLOOD WITH NO REACTION) Family Medical History Cancer 19 MOTHER (THROAT CANCER) Family history: Hypertension 19 MOTHER History of - disorder G8 SISTER (SISTER HAD MS) Myocardial infarction 19 FATHER 19 MOTHER Stroke 19 MOTHER Heart Disease, Hypertension, Stroke Physical Exam Vital Signs Vital Signs - First Documented 04/24/19 04/25/19 23:35 01:02 Temp 37.2 Pulse 91 Resp 18 B/P (MAP) 130/80 (97) Pulse Ox 100 O2 Delivery Room Air Capillary Refill : Height, Weight, BMI Height: 5'3.00" Weight: 180lbs. 0.0oz. [id number]; 31.9 BMI Method:Stated General Appearance: WD/WN, no apparent distress HEENT: No pale conjunctivae (R), No pale conjunctivae (L) Cardiovascular: regular rate, rhythm, no murmur Respiratory: normal breath sounds, no respiratory distress, no accessory muscle use Gastrointestinal: normal bowel sounds, non tender, soft Pelvic: normal external exam, normal adnexa, no cerv. 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 nml as tested, no motor/sensory deficits, alert, normal mood/affect, oriented x 3 Skin: normal color, warm/dry; No pallor Progress/Results/Core Measures Suspected Sepsis SIRS Temperature: Pulse: Respiratory Rate: Laboratory Tests 04/24/19 23:45: White Blood Count 13.3H Blood Pressure / Mean: Laboratory Tests 04/24/19 23:45: Creatinine 0.79, INR Comment 1.0, Platelet Count 233 Results/Orders Lab Results Laboratory Tests Test 04/24/19 23:45 04/24/19 23:58 Range/Units White Blood Count 13.3 H 4.3-11.0 10^3/uL Red Blood Count 4.99 4.35-5.85 10^6/uL Hemoglobin 15.2 11.5-16.0 G/DL Hematocrit 46 35-52 % Mean Corpuscular Volume 92 80-99 FL Mean Corpuscular Hemoglobin 31 25-34 PG Mean Corpuscular Hemoglobin Concent 33 32-36 G/DL Red Cell Distribution Width 14.7 H 10.0-14.5 % Platelet Count 233 130-400 10^3/uL Mean Platelet Volume 10.9 H 7.4-10.4 FL Neutrophils (%) (Auto) 49 42-75 % Lymphocytes (%) (Auto) 42 12-44 % Monocytes (%) (Auto) 8 0-12 % Eosinophils (%) (Auto) 2 0-10 % Basophils (%) (Auto) 1 0-10 % Neutrophils # (Auto) 6.5 1.8-7.8 X 10^3 Lymphocytes # (Auto) 5.5 H 1.0-4.0 X 10^3 Monocytes # (Auto) 1.0 0.0-1.0 X 10^3 Eosinophils # (Auto) 0.2 0.0-0.3 10^3/uL Basophils # (Auto) 0.1 0.0-0.1 10^3/uL Prothrombin Time 13.2 12.2-14.7 SEC INR Comment 1.0 0.8-1.4 Activated Partial Thromboplast Time 30 24-35 SEC Sodium Level 139 135-145 MMOL/L Potassium Level 3.4 L 3.6-5.0 MMOL/L Chloride Level 101 98-107 MMOL/L Carbon Dioxide Level 28 21-32 MMOL/L Anion Gap 10 5-14 MMOL/L Blood Urea Nitrogen 9 7-18 MG/DL Creatinine 0.79 0.60-1.30 MG/DL Estimat Glomerular Filtration Rate > 60 BUN/Creatinine Ratio 11 Glucose Level 200 H 70-105 MG/DL Calcium Level 9.5 8.5-10.1 MG/DL Serum Test, Qualitative NEGATIVE NEGATIVE Urine Color YELLOW Urine Clarity CLEAR Urine pH 6.0 5-9 Urine Specific [place] 1.010 L 1.016-1.022 Urine Protein NEGATIVE NEGATIVE Urine Glucose (UA) 3+ H NEGATIVE Urine Ketones NEGATIVE NEGATIVE Urine Nitrite NEGATIVE NEGATIVE Urine Bilirubin NEGATIVE NEGATIVE Urine Urobilinogen 0.2 < = 1.0 MG/DL Urine Leukocyte Esterase NEGATIVE NEGATIVE Urine RBC (Auto) 1+ H NEGATIVE Urine RBC RARE /HPF Urine WBC NONE /HPF Urine Squamous Epithelial Cells 0-2 /HPF Urine Crystals NONE /LPF Urine Bacteria TRACE /HPF Urine Casts NONE /LPF Urine Mucus NEGATIVE /LPF Urine Culture Indicated NO My Orders Orders - BLAIR DANIELS DO Basic Metabolic Panel (04/24/19 23:39) Cbc With Automated Diff (04/24/19 23:39) Hcg,Qualitative Serum (04/24/19 23:39) Protime With Inr (04/24/19 23:39) Partial Thromboplastin Time (04/24/19 23:39) Straight Cath For Spec.-Adult (04/24/19 23:50) Ua Culture If Indicated (04/24/19 23:51) Vital Signs/I&O 04/24/19 04/25/19 23:35 01:02 Temp 37.2 37.2 Pulse 91 90 Resp 18 18 B/P (MAP) 130/80 (97) 128/78 (97) Pulse Ox 100 O2 Delivery Room Air Capillary Refill : Progress Note : Progress Note NO SIGNIFICANT BLEEDING DURING ER STAY DID NOT GO THROUGH ANY PADS DURING ER STAY REASSURANCE GIVEN TO PT Departure Impression Primary Impression: VAGINAL BLEEDING IN PERIMENOPAUSAL PT Additional Impression: Diabetes mellitus, insulin dependent (IDDM), uncontrolled Disposition: 01 HOME, SELF-CARE Condition: Stable Departure-Patient Inst. Referrals: [facility]/ (PCP) Primary Care Physician CHESTER JOYCE APRN (Family) Primary Care Physician JOSE G PARNELL MD Patient Instructions: IRREGULAR VAGINAL BLEEDING, Perimenopause Add. Discharge Instructions: LOTS OF FLUIDS TYLENOL AND MOTRIN NEEDED FOR PAIN FOLLOW UP WITH DR. HILL NEXT WEEK SCHEDULED FOLLOW UP WITH DR. PARNELL FOR FURTHER CARE All discharge instructions reviewed with patient and/or family. Voiced understanding. BLAIR DANIELS DO Apr 24, 2019 23:42
[2019-04-24 23:55] LABS: BASOPHILS # (AUTO) 0.1 10^3/uL (0.0-0.1); BASOPHILS % (AUTO) 1 % (0-10); EOSINOPHILS # (AUTO) 0.2 10^3/uL (0.0-0.3); EOSINOPHILS % (AUTO) 2 % (0-10); HEMATOCRIT 46 % (35-52); HEMOGLOBIN 15.2 G/DL (11.5-16.0); LYMPHOCYTES # (AUTO) 5.5 X 10^3 (1.0-4.0); LYMPHOCYTES % (AUTO) 42 % (12-44); MEAN CORPUSCULAR HEMOGLOBIN 31 PG (25-34); MEAN CORPUSCULAR HGB CONC 33 G/DL (32-36); MEAN CORPUSCULAR VOLUME 92 FL (80-99); MEAN PLATELET VOLUME 10.9 FL (7.4-10.4); MONOCYTES % (AUTO) 8 % (0-12); NEUTROPHILS # (AUTO) 6.5 X 10^3 (1.8-7.8); NEUTROPHILS % (AUTO) 49 % (42-75); PLATELET COUNT 233 10^3/uL (130-400); RED CELL DISTRIBUTION WIDTH 14.7 % (10.0-14.5); WHITE BLOOD COUNT 13.3 10^3/uL (4.3-11.0)
[2019-04-25 00:05] LABS: PROTHROMBIN TIME PATIENT 13.2 SEC (12.2-14.7)
[2019-04-25 00:09] LABS: BUN/CREATININE RATIO 11; CALCIUM 9.5 MG/DL (8.5-10.1); CARBON DIOXIDE 28 MMOL/L (21-32); CHLORIDE 101 MMOL/L (98-107); CREATININE SERUM 0.79 MG/DL (0.60-1.30); GFR ESTIMATED > 60; GLUCOSE 200 MG/DL (70-105); POTASSIUM 3.4 MMOL/L (3.6-5.0); SODIUM 139 MMOL/L (135-145)
[2019-04-25 00:10] LABS: BILIRUBIN,URINE NEGATIVE (NEGATIVE); CLARITY,URINE CLEAR; COLOR,URINE YELLOW; GLUCOSE, URINE (UA) 3+ (NEGATIVE); KETONES,URINE NEGATIVE (NEGATIVE); LEUKOCYTE ESTERASE ,URINE NEGATIVE (NEGATIVE); NITRITE,URINE NEGATIVE (NEGATIVE); PROTEIN,URINE NEGATIVE (NEGATIVE)
[2019-04-25 00:46] LABS: BACTERIA,URINE TRACE /HPF; RBC,URINE RARE /HPF; SQUAMOUS EPITHELIAL CELL,UR 0-2 /HPF
[2019-04-25 01:02] VITALS: BP 128/78
== END 2019-04-25 01:05 | disposition home or self-care (01) ==
LOC: EDUNIT# 23:04 → ER 23:06
DX: N92.4 Excessive bleeding in the premenopausal period (principal); E11.9 Type 2 diabetes mellitus without complications; I10 Essential (primary) hypertension; E78.00 Pure hypercholesterolemia, unspecified; K21.9 Gastro-esophageal reflux disease without esophagitis; F41.9 Anxiety disorder, unspecified; F17.210 Nicotine dependence, cigarettes, uncomplicated; Z86.73 Personal history of transient ischemic attack (TIA), and cerebral infarction without residual deficits; Z88.0 Allergy status to penicillin; Z88.5 Allergy status to narcotic agent; Z88.1 Allergy status to other antibiotic agents; Z79.82 Long term (current) use of aspirin; Z79.02 Long term (current) use of antithrombotics/antiplatelets; Z79.52 Long term (current) use of systemic steroids; Z79.4 Long term (current) use of insulin; Z82.49 Family history of ischemic heart disease and other diseases of the circulatory system
CPT/HCPCS: 36415; 51701; 80048; 81000; 84703; 85025; 85610; 85730

== ENCOUNTER 2019-04-30 05:40 | Outpatient (CLI) | payer MEDICARE, MEDICAID ==
[~2019-04-30] VITALS: Ht 157.5 cm; Wt 73.6 kg
[2019-04-30] MEDS ORDERED: OMEP40CA27 PO (14:26)
[2019-04-30] MEDS ORDERED: INSU100I29 SQ (14:26)
[2019-04-30] MEDS ORDERED: DILT120C85 PO (14:26)
[2019-04-30] MEDS ORDERED: CANA300T PO (14:26)
[2019-04-30] MEDS ORDERED: LINA72CA PO (14:26)
[2019-05-02] MEDS ORDERED: IBUP-1780 PO (12:57)
[2019-05-02] MEDS ORDERED: ESTR1TAB27 PO (12:57)
[2019-05-02] MEDS ORDERED: OXYC1TAB87 PO (12:57)
[2019-05-02] MEDS ORDERED: DOCU-143 PO (12:57)
== END 2019-04-30 14:35 | disposition home or self-care (01) ==
LOC: PREOP 05:40
PROVIDERS: ATTEND Obstetrics & Gynecology
DX: Z01.818 Encounter for other preprocedural examination (principal)

== ENCOUNTER 2019-06-01 22:45 | Emergency (ER) | payer MEDICARE, MEDICAID ==
[~2019-06-01] VITALS: Ht 158 cm; Wt 74.0 kg
[~2019-06-01 22:45] MED LIST changes: +CANA300T PO; +DILT120C85 PO; +DOCU-143 PO; +HYDR-34 PO; -HYDR-3816 PO; +IBUP-1780 PO; +INSU100I29 SQ; +LINA72CA PO; +OMEP40CA27 PO; +OXYC1TAB87 PO
[2019-06-01 22:51] VITALS: BP 151/80
[2019-06-01] MEDS ORDERED: OSEL75CA15 (23:01)
[2019-06-01] MEDS ORDERED: ONDA8TAB15 (23:01)
[2019-06-01] MEDS ORDERED: ESCI20TA45 (23:01)
--- NOTE | 2019-06-01 23:15 | ED Lower Extremity ---
General Chief Complaint: Lower Extremity Stated Complaint: KNOT ON RT LEG,LEG PAIN Source: patient Exam Limitations: no limitations History of Present Illness Date Seen by Provider: Jun 01, 2019 Time Seen by Provider: 22:59 Initial Comments Here with report of right hip pain and concern about a nodule on the lateral aspect of the right hip. She is concerned about blood clot. She was seen at [facility] walk-in clinic today and given a shot which helped some but she became more concerned tonight when a family member felt a knot/nodule on her right hip. Did have surgery on May 02 for hysterectomy. Denies calf pain or swelling or any recent injury. Onset: this afternoon Severity: moderate Pain/Injury Location: right hip Method of Injury: unknown Modifying Factors: Worse With Movement; Improves With Rest Allergies and Home Medications Allergies Coded Allergies: Penicillins (Verified Allergy, Severe, RASH/BREATHING DIFFICULTY, 08/11/18) codeine (Verified Allergy, Severe, BREATHING DIFFICULTY, 08/11/18) erythromycin base (Unverified Allergy, Mild, N/V, 08/11/18) nitrofurantoin (Verified Allergy, Mild, N/V, 08/11/18) Home Medications Aspirin 81 Mg Tab.chew, 81 MG PO DAILY, (Reported) Atorvastatin Calcium 80 Mg Tablet, 80 MG PO HS, (Reported) Canagliflozin 300 Mg Tablet, 300 MG PO DAILY, (Reported) Diltiazem HCl 120 Mg Capsule.er, 120 MG PO DAILY, (Reported) Docusate Sodium 100 Mg Capsule, 100 MG PO BID Prescribed by: JOSE G FERNANDES on 05/02/19 1257 Estradiol 1 Mg Tablet, 1 MG PO DAILY Prescribed by: JOSE G FERNANDES on 05/02/19 1257 Hydrochlorothiazide 25 Mg Tablet, 25 MG PO DAILY, (Reported) Ibuprofen 800 Mg Tablet, 800 MG PO Q6H PRN for PAIN Prescribed by: JOSE G FERNANDES on 05/02/19 1257 Insulin Aspart 300 Units/3 Ml Solution, 10 UNITS SQ AC, (Reported) Insulin Detemir 100 Unit/1 Ml Insuln.pen, 35 UNIT SQ BID, (Reported) Linaclotide 72 Mcg Capsule, 72 MCG PO DAILY, (Reported) Medroxyprogesterone Acetate 2.5 Mg Tablet, 2.5 MG PO DAILY, (Reported) Metoprolol Tartrate 25 Mg Tablet, 25 MG PO BID, (Reported) Omeprazole 40 Mg Capsule.dr, 40 MG PO DAILY, (Reported) Oxycodone HCl/Acetaminophen 1 Each Tablet, 1 TAB PO Q4H Prescribed by: JOSE G FERNANDES on 05/02/19 1257 Potassium Chloride 10 Meq Capsule.er, 20 MEQ PO DAILY, (Reported) TAKE 2 (10MEQ) TABS Sennosides 8.6 Mg Tablet, 2 TAB PO HS, (Reported) Patient Home Medication List Home Medication List Reviewed: Yes Review of Systems Constitutional: no symptoms reported Respiratory: cough (chronic); No short of breath, No wheezing Cardiovascular: No chest pain, No edema Musculoskeletal: see HPI, joint pain, muscle pain Skin: see HPI; No change in color, No rash Psychiatric/Neurological: Anxiety; Denies Numbness, Denies Weakness Past Zvzgetd-Smdymd-Xyxceo Hx Past Med/Social Hx: Reviewed Nursing Past Med/Soc Hx Patient Social History Alcohol Use: Denies Use Recreational Drug Use: No Smoking Status: Current Everyday Smoker Type Used: Cigarettes 2nd Hand Smoke Exposure: Yes Recent Foreign Travel: No Contact w/Someone Who Travel: No Recent Hopitalizations: No Physical Abuse: No Sexual Abuse: No Mistreated: No Fear: No Immunizations Up To Date Tetanus Booster (TDap): Unknown PED Vaccines UTD: No Date of Influenza Vaccine: Dec 26, 2018 Seasonal Allergies Seasonal Allergies: Yes Past Medical History Surgeries: Yes (TOE NAIL REMOVED, D&C, DXLS, hernia) Section, Gallbladder, Tubal Ligation Respiratory: Yes (LEFT LUNG NODULE) Cardiac: Yes (TACHYCARDIA) Coronary Artery Disease, High Cholesterol, Hypertension, Irregular Heartbeat Neurological: Yes (r sided numbness r/t previous stroke, STROKE X4) Headaches /Migraines, Stroke, Vertigo Reproductive Disorders: Yes Female Reproductive Disorders: Menstrual Problems, Endometriosis 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 Sexually Transmitted Disease: No Genitourinary: Yes UTI-Chronic Gastrointestinal: Yes (enlarged liver) Gastroesophageal Reflux, Chronic Constipation, Hiatal Hernia Musculoskeletal: Yes Arthritis, Chronic Back Pain Endocrine: Yes Diabetes, Insulin dep HEENT: Yes (GLASSES, DENTURES) Loss of Vision: Bilateral Cancer: No Psychosocial: Yes (panic attacks) Anxiety, PTSD Integumentary: No Blood Disorders: Yes Adverse Reaction/Blood Tranf: No Family Medical History Reviewed Nursing Family Hx Cancer 19 MOTHER (THROAT CANCER) Family history: Hypertension 19 MOTHER History of - disorder G8 SISTER (SISTER HAD MS) Myocardial infarction 19 FATHER 19 MOTHER Stroke 19 MOTHER Heart Disease, Hypertension, Stroke Physical Exam Vital Signs Capillary Refill : Height, Weight, BMI Height: 5'3.00" Weight: 180lbs. 0.0oz. 81.672299se; 29.66 BMI Method:Stated General Appearance: WD/WN, mild distress (anxious) Cardiovascular: regular rate, rhythm, no murmur Respiratory: lungs clear, normal breath sounds Hips: right hip pain, right hip other (pain to the lateral aspect of the right hip. No obvious nodule or area of swelling noted. Appears to be most tender along the bursa laterally.) Legs: bilateral leg other (no swelling, color change or other indications of injury or DVT noted to either leg.) Neurologic/Psychiatric: alert, normal mood/affect, oriented x 3 Skin: normal color, warm/dry Progress/Results/Core Measures Progress Progress Note : Progress Note Seen and evaluated. Patient declined anything for pain. We did discuss the option of doing d-dimer although I am not finding any physical exam findings consistent with DVT and pain is to the lateral aspect over the bursa. This ap pears to be more right hip bursitis. This was discussed with the patient who agrees. She will continue home medication therapy. Discharged home with return precautions. Patient verbalize understanding instructions and agreement with plan. Departure Impression Primary Impression: Acute right hip pain Additional Impression: Bursitis of right hip Qualified Codes: M70.61 - Trochanteric bursitis, right hip Disposition: 01 HOME, SELF-CARE Condition: Stable Departure-Patient Inst. Decision time for Depature: 23:14 Referrals: [facility]/ (PCP) Primary Care Physician CHESTER JOYCE APRN (Family) Primary Care Physician Patient Instructions: Hip Bursitis (DC), Hip Pain (DC) Add. Discharge Instructions: All discharge instructions reviewed with patient and/or family. Voiced understanding. You may take Tylenol and/or ibuprofen as needed for pain per package directions if you're able to tolerate. Follow-up with your in a few days for recheck. Return for worse pain, swelling, weakness, breathing problems, calf pain or other concerns as needed. JULIENNE CLEVELAND MD Jun 01, 2019 23:15
--- OUTSIDE RECORDS SUMMARY | 2019-06-03 16:21 | XMS REPORT | Clinical Summary ---
Author Author [facility] Organization [facility] Address Unknown Phone Unavailable Care Team Providers Care Talent Assistant Name Role Phone Unknown, Unknown Md PCP Unavailable Source Comments Some departments are not documenting in the electronic medical record. 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
--- OUTSIDE RECORDS SUMMARY | 2019-06-03 16:24 | XMS REPORT ---
Author Author [employer]. 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 Name Role Phone HUIZAR, SOTERO Unavailable Unavailable APSTOR CISNEROS Unavailable HUIZAR, SOTERO Unavailable [facility] Unavailable [phone] PASTOR CISNEROS Unavailable FAMILIA SY Unavailable HUIZAR, SOTERO Unavailable HUIZAR, SOTERO Unavailable HUIZAR, SOTERO Unavailable HUIZAR, SOTERO Unavailable HUIZAR, SOTERO Unavailable HUIZAR, SOTERO Unavailable HUIZAR, SOTERO Unavailable HUIZAR, SOTERO Unavailable HUIZAR, SOTERO Unavailable HUIZAR, SOTERO Unavailable HUIZAR, SOTERO Unavailable HUIZAR, SOTERO Unavailable HUIZAR, SOTERO Unavailable HUIZAR, SOTERO Unavailable HUIZAR, SOTERO Unavailable [facility] Unavailable HUIZAR, SOTERO Unavailable HUIZAR, SOTERO Unavailable LEVY SORIA Unavailable HUIZAR, SOTERO Unavailable STELLA HINDS Unavailable EHSAN CARABLALO Unavailable HUIZAR, SOTERO Unavailable HUIZAR, SOTERO Unavailable HUIZAR, SOTERO Unavailable TAN CURRY Unavailable HUIZAR, SOTERO Unavailable HUIZAR, SOTERO Unavailable HUIZAR, SOTERO Unavailable HUIZAR, SOTERO Unavailable HUIZAR, SOTERO Unavailable HUIZAR, SOTERO Unavailable HUIZAR, SOTERO Unavailable HUIZAR, SOTERO Unavailable HUIZAR, SOTERO Unavailable HUIZAR, SOTERO Unavailable HUIZAR, SOTERO Unavailable HUIZAR, SOTERO Unavailable HUIZAR, SOTERO Unavailable HUIZAR, SOTERO Unavailable HUIZAR, SOTERO Unavailable HUIZAR, SOTERO Unavailable HUIZAR, SOTERO Unavailable HUIZAR, SOTERO Unavailable HUIZAR, SOTERO Unavailable JOSE DELGADO Unavailable HUIZAR, SOTERO Unavailable HUIZAR, SOTERO Unavailable HUIZAR, SOTERO Unavailable HUIZAR, SOTERO Unavailable HUIZAR, SOTERO Unavailable TRACY Skaggs Unavailable HUIZAR, SOTERO Unavailable HUIZAR, SOTERO Unavailable HUIZAR, SOTERO Unavailable HUIZAR, SOTERO Unavailable HUIZAR, SOTERO Unavailable EHSAN CARABALLO Unavailable HUIZAR, SOTERO Unavailable HUIZAR, SOTERO Unavailable HUIZAR, SOTERO Unavailable GERRY WRIGHT, YUKO Blank Unavailable Unavailable HUIZAR, SOTERO Unavailable HUIZAR, SOTERO Unavailable HUIZAR, SOTERO Unavailable YASMEEN WRIGHT, IGOR Unavailable Unavailable YUKO GARRETT MD Unavailable Unavailable PASTOR CISNEROS MD Unavailable Unavailable ASIF WRIGHT, BILLY Knapp Unavailable Unavailable HUIZAR, SOTERO Unavailable HUIZAR, SOTERO Unavailable NABIL FREED Unavailable HUIZAR, SOTERO Unavailable HUIZAR, SOTERO Unavailable HUIZAR, SOTERO Unavailable HUIZAR, SOTERO Unavailable HUIZAR, SOTERO Unavailable HUIZAR, SOTERO Unavailable HUIZAR, SOTERO Unavailable Harry STELLA Unavailable HUIZAR, SOTERO Unavailable HUIZAR, SOTERO Unavailable HUIZAR, SOTERO Unavailable MAYCOL COPPOLA Unavailable HUIZAR, SOTERO Unavailable HUIZAR, SOTERO Unavailable Harry STELLA Unavailable [facility] Unavailable MARIO DOJOSE Unavailable Unavailable NEWSOME III, JACOB F Unavailable Unavailable PASTOR CISNEROS MD Unavailable Unavailable FRANCES MAY BLAIR K Unavailable Unavailable TRISTAN WRIGHT, SULEMA Unavailable Unavailable YUKO GARRETT MD Unavailable Unavailable JASON WRIGHT, GILBERT Esqueda Unavailable Unavailable YUKO GARRETT MD Unavailable Unavailable MICHELLE WRIGHT, SILVIA Meehan Unavailable Unavailable MICHELLE WRIGHT, SILVIA Meehan Unavailable Unavailable THELMA FARAH APRN Unavailable Unavailable NATHAN WRIGHT, AKBAR Solis Unavailable Unavailable zzCAREY, SOTERO Unavailable GEORGIANA HUNT Unavailable Unavailable zzCAREY, SOTERO Unavailable ISIAH, CHESTER Unavailable zzCAREY, SOTERO Unavailable ISIAH, CHESTER Unavailable ISIAH, CHESTER Unavailable ISIAH, CHESTER Unavailable ISIAH, CHESTER Unavailable ZEYAD CRAWFORD Unavailable HARRYCRISTYSTELLA Unavailable ISIAH, CHESTER Unavailable [facility] Unavailable [phone] ISIAH, CHESTER Unavailable JONO FLORES Unavailable BRITTANY WRIGHT, RONAN Luna Unavailable Unavailable ISIAH, CHESTER Unavailable ISIAH, CHESTER D Unavailable Unavailable Migration, Doctor Unavailable Unavailable EAN WRIGHT, JORGE Beckham Unavailable Unavailable [facility] PCP Migration, Doctor Unavailable Unavailable KWASI POLLARD, GEORGIANA Esteban Unavailable Unavailable SILVIA SPENCER DO Unavailable Unavailable DILLAN WRIGHT, ZACK Unavailable Unavailable NAVJOT ZHANG Unavailable Unavailab katina EVANS MD, AKBAR Solis Unavailable Unavailable Unavailable Unavailable ISIAH CTC OPERATOR, CHESTER D Unavailable Unavailable NEWSOME III, JACOB F Unavailable Unavailable BLAIR DANIELS DO Unavailable Unavailable SOHEILA WRIGHT, JOSE G Small Unavailable Unavailable JONO FLORES Unavailable ISIAH, CHESTER Unavailable Allergies Normalized Allergy Reported Date of Reaction(s) Care Provider Facility Allergy Type classification allergen Allergy Onset DA (23 Unclassified erythromycin 11-11-2008 - N/V [facility] Via sources.) base [facility] ([address]) Drug Allergy Nitrofurantoin Nitrofurantoin 11-04-2017 - N/V, PASTOR CISNEROS [facility] Via (23 sources.) Translations: nalini fischer Translations: [ ([id number]), Hospital - [ Allergy to nitrofurantoin nitrofurantoin [place] Substance] ([id number])] ([id number]) ([address]) Drug Allergy sulfamethoxazo sulfamethoxazo 10-12-2017 - Aretha COPPOLA [facility] (8 sources.) le / katina / michael [address] [facility] [address] trimethoprim trimethoprim breathing, of [facility] Translations: rash and [place] ([address]) [ Bactrim DS, trouble Bactrim DS] breathing Medications Current Medications Medication Ingredient Drug Dose Dates Status Sig Sig Care Class(es) (Normalized) (Original) Provid er baclofen 20 baclofen gamma-Amino 20 mg 03-18-20 Active no B aclofen 20 no mg oral Translation butyric 17 - information mg Orally 2 name tablet (10 s: [ Acid-ergic 10-31-20 times a day (no sources.) Baclofen 20 Agonist 18 if needed 1 phone) mg, tablet with Baclofen 20 food or milk mg] Feb, Oct, 30 day(s) Active no BD Pen no Active no BD Pen no information Needle Mini information information Needle Mini name (7 U/F 31 U/F 31 gauge (no sources.) gauge USE ONCE phone) DAILY WITH INSULIN PENS 90 Active citalopram Citalopram Serotonin 10 mg 06-30-19 Active take 1 Ce leslie 10 mg no 10 mg oral Translation Reuptake 13 tablet by 1 tablet by name tablet (1 s: [ Celexa Inhibitor mouth once Oral route 1 (no source.) 10 mg] daily time per day phone) Jun, Active clindamycin clindamycin Lincosamide 300 mg 10-13-19 Active no Clindamycin no 300 mg oral Translation Antibacteri 18 - information HCl 30 0 MG name capsule (2 s: [ al 10-23-19 Orally every (no sources.) Clindamycin 18 8 hrs 1 phone) HCl 300 MG, capsule 8h Clindamycin Sep, HCl 300 MG] Oct, 10 days Active 300 mg 08-09-2017 Active no Clindamy no name - inform thee HCl (no 08-19-2017 ation 300 MG phone) Orally 2 times a day 1 capsule 12h July, Aug, 10 days Active no cranberry Non-Standar Active no AZO no information preparation dized Food information Cranberry nam e (3 Translation Allergenic 250-30 MG (no sources.) s: [ AZO Extract, Active phone) Cranberry Non-Standar 250-30 MG] dized Plant Allergenic Extract ergocalcife ergocalcife Provitamin 95335 08-09-19 Active no Ergocalcifer no rol 09215 rol D2 Compound [IU] 18 [place] [address] name unt oral Translation 10-04-19 UNIT Orally (no capsule (5 s: [ 18 once weekly phone) sources.) Ergocalcife 1 capsule 21 rol 47212 Jul, 2017 16 UNIT] Sep, 2017 8 weeks Active 58765 [IU] 01-07-2017 Active no Ergocalc no name - inform iferol (no 01-19-2017 ation 88908 phone) UNIT Orally once weekly 1 capsule Dec, Jan, 12 Weeks Active famotidine famotidine Histamine-2 20 mg 05-11-19 Active no Famotidine no 20 mg oral Translation Receptor 18 information 20 mg Oral ly name tablet (14 s: [ Antagonist Twice a day (no sources.) Famotidine 1 tablet 12h phone) 20 mg, Apr, Famotidine 90 days 20 mg] Active fluconazole fluconazole Azole 150 mg 01-28-20 Active no Dif lucan 150 no 150 mg oral Translation Antifungal 17 - information MG Oral ly name tablet (7 s: [ 08-05-19 Once a day 1 (no sources.) Diflucan 18 tablet today phone) 150 MG] and may repeat in 10 days 24h July, July, 2 days Active guaiFENesin guaiFENesin no 600 mg 02-29-20 Active no Muc inex 600 no 600 mg oral Translation information 17 - information MG Ora lly name tablet (1 s: [ 03-07-20 every 12 hrs (no source.) Mucinex 600 17 1 tablet as phone) MG] needed 12h Feb, Feb, 07 days Active insulin insulin Insulin 1000 08-19-19 Active take 10 [IU] Martha log 100 no lispro 100 lispro Analogue [IU]/m 18 by UNIT/ML name unt/ml Translation L subcutaneous Subcutaneous (no injectable s: [ injection 3 times a phone) solution Humalog 100 three times day 10 units (10 UNIT/ML, daily at with meals sources.) Humalog 100 mealtime 8h 18 August, UNIT/ML] 2017 12 months Active no Lancets - no Active no Lancets - no information Translation information information Active na me (8 s: [ (no sources.) Lancets -, phone) Lancets -] methylpredn methylPREDN Corticoster 4 mg 01-04-20 Active no MethylPREDNI no isoLONE 4 ISolone oid 18 information Solone 4 MG na me mg oral Translation Orally as (no tablet (1 s: [ directed as phone) source.) MethylPREDN directed 16 ISolone 4 Dec, 2017 MG] Active nitrofurant NITROFURANT Nitrofuran 100 mg 03-04-20 Active no Macrobid 100 no oin, OIN, Antibacteri 18 information mg Orally n juan david macrocrysta MACROCRYSTA al every 12 hrs (no ls 25 mg / LS / 1 capsule phone) nitrofurant Nitrofurant with food oin, oin, 12h 15 Dec, monohydrate Monohydrate 2017 5 days 75 mg oral Translation Active capsule (7 s: [ sources.) Macrobid 100 MG] 100 mg 11-01-2017 Active no Macrobid no name - inform 100 MG (no 11-08-2017 ation Orally phone) every 12 hrs 1 capsule with food 12h Oct, Oct, 7 day(s) Active 25 mg 08-16-2016 Completed no Nitrofur Georgiana - inform antoin L Kwasi 08-16-2017 ation Monohyd/ (no M-Cryst phone) (Macrobi d 100 Mg Capsule) 100 Mg Capsule, 1 Tab Oral Twice A Day 08/16/16 Disconti nued no OneTouch no Active no OneTouch no information Verio - information information Verio - TEST n juan david (13 Translation BLOOD SUGAR (no sources.) s: [ FOUR TIMES A phone) OneTouch DAY E11.8 30 Verio -, Active OneTouch Verio -] Active no OneTouch no name inform Verio - (no ation TEST phone) BLOOD SUGAR THREE TIMES A DAY E11.8 30 Active no Pen [employer] no Active no Pen [employer] no information 31 gauge information information 31 gauge name (11 subcutaneous (no sources.) ly twice a phone) day DX: E11.8 as directed Active Active no Pen no name inform [employer] (no ation 31 gauge phone) subcutan eously Once a day as directed 24h 90 Active no Pen [employer] no 02-16-20 Active no Pen [employer] no information 31G X 5 MM information 16 information 31G X 5 MM name (1 source.) Translation subcutaneous (no s: [ Pen ly Once a phone) [employer] 31G day as X 5 MM] directed 24h Jan, 90 days Active sAXagliptin sAXagliptin Dipeptidyl 5 mg 01-08-20 Active no Onglyza 5 mg no 5 mg oral Translation Peptidase 4 17 information Orally O nce name tablet (18 s: [ Inhibitor a day 1 (no sources.) Onglyza 5 tablet 24h phone) mg, Onglyza Dec, 5 mg] 90 days Active Active no Onglyza no name inform 5 Orally (no ation Once a phone) day 1 tablet 24h Active no Walker - no 01-23-20 Active no Walker - as no information Translation information 16 information direct ed 04 name (14 s: [ Walker Jan, 2016 (no sources.) -, Walker Active phone) -] Completed/Discontinued Medications Medication Ingredient Drug Dose Dates Status Sig Sig Care Class(es) (Normalized) (Original) Provid er benzonatate benzonatate Non-narcoti 200 mg 02-03-20 Complete take 2 Benzonatate Gretch 100 mg oral Translation c 18 d capsules by (Tessalo n en L capsule (7 s: [ Antitussive mouth every Perles) 100 Mar tin sources.) Tessalon eight hours Mg Capsule (no Perles 100 as needed 200 Mg ORAL phone) mg, for cough Every 8HRS benzonatate as needed 100 MG Oral for Cough 30 Capsule] Cap 02/02/18 100 mg 02-28-2017 Active no Tessalon no name - inform Perles (no 03-10-2017 ation 100 mg phone) Orally Three times a day 1 capsule as needed 8h Feb, 21 Feb, 2017 10 days Active 100 mg 01-24-2017 Active no Tessalon no name - inform Perles (no 02-07-2017 ation 100 mg phone) Orally Three times a day 1 capsule as needed 8h Jan, Jan, 14 days Active canaglifloz canaglifloz Sodium-Gluc 100 mg 12-29-19 no no Canagliflozi no in 100 mg in ose 17 - informat information n 100 mg nam e oral tablet Cotransport 03-28-19 ion Orally Once (no (7 er 2 18 a day 1 phone) sources.) Inhibitor tablet 24h 10 Dec, 2016 8 Mar, 2017 30 day(s) Not-Taking cephalexin Cephalexin Cephalospor 500 mg 03-13-20 Complete no Cephalexin Peter 500 mg oral in 18 - d information (Keflex) 500 J Small Engine [employer] capsule (3 Antibacteri 08-12-19 Mg Capsule, Farah sources.) al 19 500 Mg Oral (no Three Times phone) A Day 03/13/18 Discontinued ciprofloxac ciprofloxac Quinolone 500 mg 11-05-19 Complete no Ciprofloxaci Willia in 500 mg in Antimicrobi 18 - d information n Hcl m D oral tablet Translation al 12-08-19 (Cipro) 500 Mario (8 s: [ Cipro 18 Mg Tablet, (no sources.) 500 mg] 500 Mg Oral phone) Twice A Day for Uti 11/04/17 Discontinued 500 mg 08-19-2017 Active no Cipro no name - inform 500 mg (no 08-26-2017 ation Orally phone) every 12 hrs 1 tablet 12h Aug, Aug, 07 days Active no Clopidogrel no 09-25-19 Complete no Clopidogrel E chandler E information Bisulfate information 14 - d information Alicia Hilario (1 source.) (Plavix 75 08-12-19 (Plavix 75 (no Mg) 75 Mg 19 Mg) 75 Mg phone) Tablet, 1 Tablet, 1 Each Oral Each Oral Daily 09/24/13 Discontinued no CompAir no 02-25-20 no no CompAir no information Nebulizer - information 17 informat information Nebulizer - name (5 Translation ion as directed (no sources.) s: [ Feb, phone) CompAir 30 days Nebulizer Not-Taking -] 02-24-2017 Active no CompAir no name inform Nebulize (no ation r - as phone) directed Feb, 30 days Active no CompAir no 02-25-20 no no CompAir no information Nebulizer - information 17 informat information Nebulizer - name (2 Translation ion as directed (no sources.) s: [ Feb, phone) CompAir 30 days Nebulizer Not-Taking -] dextrometho Dextrometho Phenothiazi 3 03-13-20 Complete no D-Methorphan Peter rphan rphan / ne, mg/mL 18 - d information Hb/Promet h J Small Engine Trainer hydrobromid Promethazin Uncompetiti 08-12-19 Hcl Farah e 3 mg/ml / e ve 19 (Promethazin (no promethazin N-methyl-D- e-Dm Syrup) phone) e aspartate 118 Ml hydrochlori Receptor Syrup, 5 Ml de 1.25 Antagonist, Oral Every 6 mg/ml oral Sigma-1 Hours as solution (3 Agonist needed for sources.) Cough 03/13/18 Discontinued doxycycline doxycycline Tetracyclin 100 mg 02-03-20 Complete no Doxycycline Gretch hyclate 100 Translation e-class 18 - d information Hyclat e 100 en L mg oral s: [ Drug 08-12-19 Mg Capsule, Kwasi capsule (7 Doxycycline 19 100 Mg Oral (no sources.) Monohydrate Twice A Day phone) 100 mg, 02/02/18 doxycycline Discontinued hyclate 100 MG Oral Capsule] 100 mg 03-28-2017 Active no Doxycycl no name - inform ine (no 04-07-2017 [employer]oc[employer] Monohydr phone) ate 100 mg Orally every 12 hrs 1 capsule 12h Mar, Mar, 10 days Active 100 mg 02-28-2017 Active no Doxycycl no name - inform ine (no 03-10-2017 [employer] Monohydr phone) ate 100 mg Orally every 12 hrs 1 capsule 12h Feb, Feb, 10 days Active estradiol 1 Estradiol Estrogen 1 mg Complete no Estradiol (no mg oral d information (Estrace phone) tablet (1 Tablet) 1 Mg source.) Tablet 1 Mg ORAL Every 48 Hours no Hydrochloro no 08-12-19 Complete no Hydrochlorot (no information thiazide information 19 d information hiazi de phone) (1 source.) (Hctz) 12.5 (Hctz) 12.5 Mg Cap, 25 Mg Cap, 25 Mg Oral Mg Oral Daily Discontinued no Hydrocodone no 08-12-19 Complete no Hydrocodone ( no information Bit/Acetami information 19 d information Bi t/Acetamin phone) (1 source.) venecia jackson (Hydrocodon (Hydrocodon- -Acetaminop Acetaminophn hn 13-962) 31-325) 1 1 Each Each Tablet, Tablet, 1 1 Each Oral Each Oral As Needed Discontinued insulin, insulin, Insulin 1000 04-18-19 no take 10 [IU] No voLog 100 no aspart, aspart, Analogue [IU]/m 18 informat by UNIT/ML name human 100 human L ion subcutaneous Subcutaneous (no unt/ml Translation injection 3 times a phone) injectable s: [ three times day 10 units solution (4 NovoLog 100 daily at with meals sources.) UNIT/ML, 3 mealtime 8h Mar, ML Insulin, 2017 12 Aspart, months Human 100 Not-Taking UNT/ML Pen Injector [NovoLog] 1000 04-18-2017 Active take NovoLog no name [IU]/mL 10 100 (no [IU] UNIT/ML phone) by Subcutan subcut eous 3 aneous times a inject day 10 ion units three with times meals 8h daily Mar, at 2018 12 mealti months me Active 10 [IU] Completed inject Insulin (no 10 Aspart phone) [IU] (Novolog by Flexpen) subcut 300 aneous Units/3 inject Ml ion Solution before 10 Units mealti SUBCUTAN me EOUS Before Meals Active no NovoLog no name inform Active (no ation phone) medroxyPROG medroxyPROG Progestin 2.5 mg Complete no Medroxy proge (no ESTERone ESTERone d information sterone phone) acetate 2.5 Acetate 2.5 mg oral Mg Tablet tablet (1 2.5 Mg ORAL source.) Every 48 Hours no Melatonin/P no 08-12-19 Complete take 1 Melatonin/Py (no information yridoxine information 19 d tablet by [employer] ne Hcl phone) (1 source.) Hcl (B6) mouth at (B6) (Melatonin bedtime (Melatonin 10 Mg 10 Mg Tablet) 1 Tablet) 1 Each Each Tab.mphase, Tab.mphase, 1 Each Oral 1 Each Oral Bedtime Discontinued metroNIDAZO metroNIDAZO Nitroimidaz 500 mg 02-03-20 Complete no Metronidazol Thelma LE 500 mg LE ole 18 - d information e 500 Mg J Apr n oral tablet Translation Antimicrobi 08-12-19 Tablet, 500 Bat es (9 s: [ Flagyl al 19 Mg Oral (no sources.) 500 mg, Three Times phone) Metronidazo A Day le 500 MG 03/13/18 Oral Discontinued Tablet] 500 mg 12-16-2017 Active no Flagyl no name - inform 500 mg (no 12-26-2017 ation Orally phone) every 8 hrs 1 tablet 8h Nov, Dec, 10 day(s) Active no normal no 02-29-20 no no [place] Saline no information saline information 17 - informat information Nasal Gel 1 name (6 02-29-20 ion Nasally 2 (no sources.) 18 times a day phone) apply thin layer to nares bilat 12h Feb, Feb, 12 months Not-Taking 02-28-2017 Active no [place] no name - inform Saline (no 02-28-2018 ation Nasal phone) Gel 1 Nasally 2 times a day apply thin layer to nares bilat 12h Feb, Feb, 12 months Active sennosides, sennosides, no 17.2 Complete take 2 Sennosides (no half-way 8.6 mg HALFWAY information mg d tablets by (Senna) 8. 6 phone) oral tablet mouth at Mg Tablet 2 (1 source.) bedtime Tab ORAL Bedtime Problems Active Problems Problem Normalized Date of Normalized Normalized Provider Fac ility Classification Problem(s) Problem Problem Problem Sta tus Onset/Resoluti Duration on Other Abdominal Episodic Active [facility] gastrointestin distension [address] [facility] al disorders (gaseous) of [facility] (9 sources.) Translations: [place] ([address]) [ - Abdominal bloating R14.0] Other Abnormal level Episodic Active EHSAN CARABALLO Via Ch risti screening for of other [address] [facility] suspected drugs, [place] conditions medicaments ([address]16) (not mental and biological disorders or substances in infectious specimens from disease) (20 other organs, sources.) systems and tissues Translations: [ Abnormal drug screen, - 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, - Abnormal drug screen R89.2, ABN FINDINGS ON DX IMAGING OF ABD REGION, - 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, Abnormal drug screen, - Abnormal drug screen R89.2, ABN MOLD HOISTER FUNCT STUDY NEC, OTH SCREEN MAMMO-MALIGN NEOPLASM OF [place], ABN LIVER FUNCTION STUDY, ENCNTR SCREEN MAMMOGRAM FOR MALIGNANT NE, - Breast cancer screening Z12.39] Other Abnormal Episodic Active PASTOR CISNEROS , Not Avail able nutritional; weight gain (22670) endocrine; and metabolic disorders (2 sources.) Other nervous Abnormality of Episodic Active SILVIA HILARIO , Not Available system gait (06313) disorders (8 sources.) Residual Acquired Episodic Active MIRELLA Not Available codes; absence of [place] (89054) unclassified other (4 sources.) specified parts of digestive tract Other upper Allergic Chronic Active SOTERO GAYE William ty respiratory rhinitis due [address] [facility] disease (20 to pollen of [facility] sources.) Translations: [place] ([address]) [ - Seasonal allergic rhinitis due to pollen J30.1, - Seasonal allergic rhinitis due to pollen J30.1] Allergic Allergy status 04-26-2019 - Episodic Active JULIENNE Not Available reactions (23 to penicillin MD MEGHA (65124) sources.) Translations: [ ALLERGY STATUS TO OTH DRUG/MEDS/BIOL SUB, ALLERGY STATUS TO NARCOTIC AGENT STATUS, ALLERGY STATUS TO OTHER ANTIBIOTIC AGENT, ALLERGY STATUS TO PENICILLIN, ALLERGY STATUS TO NARCOTIC AGENT STATUS, ALLERGY STATUS TO OTH DRUG/MEDS/BIOL SUB, ALLERGY STATUS TO PENICILLIN] Coronary Atheroscleroti Chronic Active ZACK GRIMALDO [facility] Via atherosclerosi c heart MD Jesusita knapp and other disease of Hospital - heart disease [place] (3 sources.) coronary (39813) artery without angina pectoris External cause Bitten or Episodic Active [facility] codes: stung by [address] Natural/enviro nonvenomous of [facility] (2 insect and [place] ([address]) sources.) other nonvenomous arthropods, initial encounter Translations: [ - Bitten or stung by nonvenomous insect and other nonvenomous arthropods, initial encounter W57.XXXA] Other Body mass Chronic Active ZACK GRIMALDO [facility] Via nutritional; index (BMI) MD Mc endocrine; and 31.0-31.9, Hospital - metabolic adult [place] disorders (3 (27191) sources.) Other Care involving Episodic Active PASTOR CISNEROS , Not Available aftercare (23 other physical MD (32614) sources.) therapy Other Care involving Episodic Active SILVIA HILARIO , Not Available aftercare (8 other MD (46962) sources.) specified rehabilitation procedure Other and Cerebral Chronic Active JACOB NEWSOME , Not Avail able ill-defined atherosclerosi III (82461) cerebrovascula s r disease (16 sources.) Chronic Chronic Chronic Active MIRELLA Not Available obstructive obstructive [place] (59296) pulmonary pulmonary disease and disease, bronchiectasis unspecified (27 sources.) Translations: [ OTHER EMPHYSEMA, Simple chronic bronchitis, - Simple chronic bronchitis J41.0] Unclassified Chronic pain Chronic Active SOTERO HUIZAR [employer] (20 sources.) Translations: [address] [place] [address] [ Other of [facility] chronic pain, [place] (80497) Other chronic pain] Residual Chronic pain Episodic Active [facility] Community codes; Translations: [address] unclassified [ Other of [facility] (2 sources.) chronic pain] [place] ([address]676) Other nervous Chronic pain Episodic Active SOTERO HUIZAR C ommunity system syndrome [address] [facility] disorders (20 Translations: of [place] sources[place] [ Chronic pain [place] (57353) syndrome, Chronic pain syndrome] Other nervous Chronic pain Chronic Active JONO Commu nity system syndrome SANDRA [address] [facility] Center disorders (2 Translations: of [place] sources.) [ Chronic pain [place] (34401) syndrome] Other nervous Chronic pain Chronic Active SOTERO HUIZAR C ommunity system syndrome [address] Health Center disorders (20 Translations: of [place] sources.) [ - Chronic [place] (20156) pain syndrome G89.4, - Chronic pain syndrome G89.4] Residual Computed Episodic Active [facility] Via codes; tomography [facility]KENDY Mc unclassified result [address] Hospital (1 source.) abnormal (85473) Congestive Congestive Chronic Active PASTOR CISNEROS , Not Av ailable heart failure; heart failure, (87081) nonhypertensiv unspecified e (7 sources.) Residual Contact with Episodic Active GEORGIANA Not Avail able codes; and ATUL QUINN (24887) unclassified (suspected) (29 sources.) exposure to environmental tobacco smoke (acute) (chronic) Superficial Contusion of Episodic Active BLAIR FRANCES , DO No t Available injury; finger (46136) contusion (5 Translations: sources.) [ - Insect bite (nonvenomous), right lower leg, initial encounter S80.861A, - Insect bite (nonvenomous), left lower leg, initial encounter S80.862A] Other lower Cough Episodic Active GWEN RICHARD Not Avai lable respiratory Translations: (38569) disease (28 [ - Cough R05, sources.) - Cough R05] Other lower Cough Episodic Active PASTOR CISNEROS , Not Desiree ilable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 information no name (no joni ne) [facility] ([id number]) 02-28-2017 Measure blood oxygen no information no name (no joni ne) [facility] ([id number]) 02-28-2017 NEBULIZER TREATMENT no information no name (no phon e) [facility] ([id number]) 10-31-2017 Radionuclide no information YUKO GARRETT [facility] myocardial perfusion [place] ([id number]) study 08-02-2017 Urine albumin no information no name (no phone) [facility] ([id number]) 03-04-2018 Urnls dip stick/tablet no information no name (no p alvaro) [facility] rgnt auto w/o [facility] ([id number]) 12-01-2017 Urnls dip stick/tablet no information no name (no p alvaro) [facility] rgnt auto w/o [facility] ([id number]) 11-01-2017 Urnls dip stick/tablet no information no name (no p alvaro) [facility] rgnt auto w/o [facility] ([id number]) 09-12-2017 Urnls dip stick/tablet no information no name (no p alvaro) [facility] rgnt auto w/o [facility] ([id number]) 08-26-2017 Urnls dip stick/tablet no information no name (no p alvaro) [facility] rgnt auto w/o [facility] ([id number]) 08-19-2017 Urnls dip stick/tablet no information no name (no p alvaro) [facility] rgnt auto w/o [facility] ([id number]) 03-28-2017 X-RAY EXAM CHEST 2 no information no name (no phone ) [facility] ([id number]) Immunizations Normalized Immunization Date Notes Care Provider Facili ty Immunization influenza, 03-04-2018 no information JONO FLORES [facility], [address] [place] [address] ([id number]) preservative free influenza, 12-28-2016 no information no name Not Availab le injectable, (03000) quadrivalent, preservative free influenza, seasonal, 12-07-2018 no information no name [facility] injectable [facility] ([id number]) influenza, seasonal, 03-04-2018 - no information no name [facility] injectable 03-04-2018 [facility] ([id number]) pneumococcal 02-16-2017 - no information no name Not Avail able polysaccharide 02-16-2017 (43838) vaccine, 23 valent no information 03-04-2018 no information JONO FLORES [facility] [address] [place] [address] ([id number]) no information 02-16-2017 no information SOTERO HUIZAR [address] [place] [address] ([id number]) Results Test Name Value Interpretation Reference Range Date Time Fa cility (Normalized) (Normalized) (Medline Reference) ua long dip (in house) on null Glucose Test 2+ (no code) [facility] (U) [facility] (30218) Protein mass no information (no code) 0 - 20 mg/dL [facility] conc (U) [facility] (78624) UA LONG DIP (IN 06/2018 (no code) Critical access hospital) [facility] (53387) UA LONG DIP (IN cloudy (no code) [facility] (50163) UA LONG DIP (IN yellow (no code) Critical access hospital) [facility] (02303) UA LONG DIP (IN slight (no code) [facility] (99148) UA LONG DIP (IN no information (no code) Critical access hospital) [facility] (37238) UA LONG DIP (IN 1.025 (no code) [facility] (45089) UA LONG DIP (IN 812572 (no code) Critical access hospital) [facility] (13724) UA LONG DIP (IN 6.0 (no code) [facility] (62014) UA LONG DIP (IN 0.2 (no code) [facility] (72041) ct scan : abd & pelvis w/o contrast (stone protocol) on null NEGATED: no information (no code) [facility] of Laboratory [facility] studies (set) (10365) a1c (in house) on null HbA1c 9.7 % (no code) 0 - 5.7 % [facility] (97665) HbA1c 9.3 % (no code) 0 - 5.7 % [facility] (79155) A1C (IN HOUSE) 0791 (no code) [facility] (28256) A1C (IN HOUSE) 12/2018 (no code) [facility] (64357) A1C (IN HOUSE) 0762 (no code) [facility] (00630) A1C (IN HOUSE) 09/2018 (no code) [facility] (69494) No panel information on null KET no information (no code) [facility] (88927) pH (Bld) 6.0 [pH] (no code) 7.38 - 7.42 [pH] [facility] (69576) SG 1.020 (no code) [facility] (41200) No panel information on 2019-03-20 Albumin 3.7 g/dL (N) 3.4 - 5.4 g/dL [facility] [Mass/Vol] [facility] () Albumin/Globulin 1.1 {ratio} (N) 1 - 2.5 {ratio} Critical access hospital [Mass ratio] [facility] (96845) ALP [Catalytic 107 U/L (N) 44 - 147 U/L [facility] activity/Vol] [facility] (01773) ALT [Catalytic 16 U/L (N) 4 - 40 [facility]/L [facility] activity/Vol] [facility] (58318) AST [Catalytic 30 U/L (N) 10 - 34 U/L [facility] activity/Vol] [facility] (47401) Bilirubin 0.8 mg/dL (N) 0.1 - 1.2 mg/dL [facility] [Mass/Vol] [facility] (51349) Calcium 9.3 mg/dL (N) 8.5 - 10.2 mg/dL [facility] [Mass/Vol] [facility] (06027) Chloride 99 mmol/L (N) 95 - 106 mmol/L [facility] [Moles/Vol] [facility] (32142) Cholesterol 124 mg/dL (N) 180 - 200 mg/dL [facility] [Mass/Vol] [facility] (48535) Cholesterol in 25 mg/dL (L) Critical access hospital HDL [Mass/Vol] [facility] (50586) Cholesterol in 69 mg/dL (N) 0 - 100 mg/dL [facility] LDL [Mass/Vol] [facility] (70691) Cholesterol non 99 mg/dL (N) [facility] HDL [Mass/Vol] [facility] (78059) Cholesterol.tota 5.0 {ratio} (H) [facility] lt l/Cholesterol in [facility] HDL [Mass ratio] [facility] (28313) CO2 [Moles/Vol] 32 mmol/L (N) 23 - 29 mmol/L [facility] (15677) Creatinine 0.57 mg/dL (N) Critical access hospital [Mass/Vol] [facility] (93731) Exp date 10/2020 (no code) [facility] (49792) GFR/1.73 sq M 126 (N) 90 - 120 [facility] predicted among mL/min/{1.73_m2} mL/min/{1.73_m2} [facility] blacks MDRD [facility] (S/P/Bld) [Vol (75546) rate/Area] GFR/1.73 sq 109 (N) 90 - 120 [facility] M.predicted MDRD mL/min/{1.73_m2} mL/min/{1.73_m2} [facility] (S/P/Bld) [Vol [facility] rate/Area] (78144) Globulin (S) 3.4 g/dL (N) 2 - 3.5 g/dL [facility] [Mass/Vol] [facility] (97035) Glucose 142 mg/dL (H) 60 - 125 mg/dL [facility] [Mass/Vol] [facility] (03325) Lot 8.8~11.6~0552 (no code) [facility] (08004) Potassium 4.1 mmol/L (N) 3.7 - 5.2 mmol/L [facility] [Moles/Vol] [facility] (03485) Protein 7.1 g/dL (N) 6.4 - 8.3 g/dL [facility] [Mass/Vol] [facility] (38894) Sodium 139 mmol/L (N) 135 - 145 mmol/L [facility] [Moles/Vol] [facility] (71050) Triglyceride 237 mg/dL (H) 0 - 150 mg/dL [facility] [Mass/Vol] [facility] (91906) Urea nitrogen 7 mg/dL (N) 7 - 20 mg/dL [facility] [Mass/Vol] [facility] (76767) Urea NOT APPLICABLE (no code) [facility] nitrogen/Creatin [facility] [Mass ratio] [facility] () No panel information on 2019-01-30 Bacteria SEE NOTE (A) [facility] identified [facility] (U) [facility] () BLO 1+ (no code) [facility] () KET no information (no code) [facility] () Lot # [id number] (no code) [facility] () pH (Bld) 5.0 [pH] (no code) 7.38 - 7.42 [pH] [facility] () Protein (U) no information (no code) 0 - 20 mg/dL [facility] [Mass/Vol] [facility] () SG 1.020 (no code) [facility] () URO 0.2 (no code) [facility] () No panel information on 2019-01-02 Bacteria SEE NOTE (no code) [facility] identified Cx [facility] (U) [facility] () BLO 2+ (no code) [facility] (79741) KET 01/07~cloudy~ora (no code) [facility] nge~none~trace~1 [facility] +~trace [facility] () HUSSEIN no information (no code) [facility] () Lot # [id number] (no code) [facility] (26666) pH (Bld) 6.0 [pH] (no code) 7.38 - 7.42 [pH] [facility] (45960) Protein (U) 2+ (no code) [facility] [Mass/Vol] [facility] (92369) SG 1.020 (no code) [facility] (89043) URO 4.0 (no code) [facility] (83111) No panel information on 2018-12-15 Exp date 05/2020 (no code) [facility] (93066) Lot 11.6~10.5~0993 (no code) [facility] (61276) No panel information on 2018-06-28 Exp date 12/2019 (no code) [facility] (94674) Lot 10.5~11.0~0941 (no code) [facility] (85843) No panel information on 2018-06-14 Bacteria SEE NOTE (A) [facility] identified [facility] (U) [facility] (63460) No panel information on 2018-05-28 Bacteria SEE NOTE (no code) [facility] identified Cx [facility] (U) [facility] (42510) STEFANY 1~2 (no code) [facility] (60476) KET trace (no code) [facility] (33200) HUSSEIN no information (no code) [facility] (77205) Lot # [id number] (no code) [facility] (63648) Odor 12/07~cloudy~ora (no code) [facility] nge~none [facility] (76550) URO 1.030~3~6.0~3~2. (no code) [facility] 0 [facility] (40063) venous blood hemoglobin measurement (mass/volume) on 2018-03-18 Hemoglobin mass 14.5 g/dL (no code) 12.1 - 17.2 g/dL [facility] conc (Bld) [facility] (07631) urine urobilinogen measurement by automated test strip (mass/volume) on 2018-03-18 Urobilinogen 8 (*) [facility] Test strip Qn [facility] (U) (06639) urine total bilirubin detection by test strip on 2018-03-18 Bilirubin Ql (U) 3+ (*) [facility] (14700) urine protein assay by test strip, semi-quantitativ e on 2018-03-18 Protein Test 3+ (*) [facility] strip Ql (U) [facility] (55832) urine ph measurement by test strip on 2018-03-18 pH Test strip 6.5 [pH] (no code) 4.6 - 8 [pH] [facility] (U) [facility] (45588) urine nitrite detection by test strip on 2018-03-18 Nitrite Test no information (*) [facility] strip Ql (U) [facility] (40367) urine leukocyte esterase detection by dipstick on 2018-03-18 Leukocyte no information (no code) [facility] esterase Test [facility] strip Ql (U) (11017) urine ketones detection by automated test strip on 2018-03-18 Ketones no information (no code) [facility] Automated test [facility] strip Ql (U) (92636) urine glucose detection by automated test strip on 2018-03-18 Glucose no information (no code) [facility] Automated test [facility] strip Ql (U) (56394) urine color determination on 2018-03-18 Color Nom (U) RED (*) [facility] (71689) urine clarity determination on 2018-03-18 Clarity Nom (U) BLOODY (*) [facility] (75471) squamous epithelial cells detection in urine sediment by light microscopy on 2018-03-18 Epithelial no information (no code) [facility] cells.squamous [facility] LM Ql (Urine (20906) sed) specific gravity of urine by test strip on 2018-03-18 Specific gravity 1.015 (*) [facility] Relative Density [facility] (U) (36418) serum or plasma urea nitrogen/creatin ine mass ratio on 2018-03-18 Urea 18 mg/mg (no code) 6 - 22 mg/mg [facility] a nitrogen/Creatin [facility] ine mass ratio (50538) serum or plasma urea nitrogen measurement (mass/volume) on 2018-03-18 Urea nitrogen 12 mg/dL (no code) 7 - 20 mg/dL [facility] mass [facility] (19616) serum or plasma total bilirubin measurement (mass/volume) on 2018-03-18 Bilirubin mass 0.8 mg/dL (no code) 0.1 - 1.2 mg/dL [facility] (50600) serum or plasma sodium measurement (moles/volume) on 2018-03-18 Sodium molar 138 mmol/L (no code) 135 - 145 mmol/L [facility] (27640) serum or plasma protein measurement (mass/volume) on 2018-03-18 Protein mass 7.4 g/dL (no code) 6.4 - 8.3 g/dL [facility] (13095) serum or plasma potassium measurement (moles/volume) on 2018-03-18 Potassium molar 3.4 mmol/L (L) 3.7 - 5.2 mmol/L [facility] (41343) serum or plasma glucose measurement (mass/volume) on 2018-03-18 Glucose mass 248 mg/dL (H) 60 - 125 mg/dL [facility] (91325) serum or plasma creatinine measurement with calculation of estimated glomerular filtration rate on 2018-03-18 GFR/1.73 sq M no information (no code) [facility] predicted among [facility] non-blacks MDRD (62399) vol rate/area (S/P/Bld) serum or plasma creatinine measurement (mass/volume) on 2018-03-18 Creatinine mass 0.68 mg/dL (no code) [facility] (54053) serum or plasma chloride measurement (moles/volume) on 2018-03-18 Chloride molar 97 mmol/L (L) 95 - 106 mmol/L [facility] (57196) serum or plasma calcium measurement (mass/volume) on 2018-03-18 Calcium mass 9.5 mg/dL (no code) 8.5 - 10.2 mg/dL [facility] (01677) serum or plasma c reactive protein measurement (mass/volume) on 2018-03-18 CRP mass conc 0.86 mg/L (H) 0 - 8 mg/L [facility] (79443) serum or plasma aspartate aminotransferase measurement (enzymatic activity/volume) on 2018-03-18 AST enzyme 67 U/L (H) 10 - 34 U/L [facility] (77981) serum or plasma anion gap determination (moles/volume) on 2018-03-18 Anion gap 3 17 mmol/L (H) 3 - 11 mmol/L [facility] molar [facility] (14035) serum or plasma alkaline phosphatase measurement (enzymatic activity/volume) on 2018-03-18 ALP enzyme 120 U/L (no code) 44 - 147 U/L [facility] (10644) serum or plasma albumin measurement (mass/volume) on 2018-03-18 Albumin mass 3.9 g/dL (no code) 3.4 - 5.4 g/dL [facility] (95046) serum or plasma alanine aminotransferase measurement (enzymatic activity/volume) on 2018-03-18 ALT enzyme 48 U/L (no code) 4 - 40 U/L [facility] (55267) mucus detection in urine sediment by light microscopy on 2018-03-18 Mucus LM Ql no information (no code) [facility] (Urine sed) [facility] (49706) manual eosinophils/100 leukocytes in nose on 2018-03-18 Eosinophils/100 0 (no code) [facility] WBC Manual cnt [facility] (Nose) (71854) manual blood segmented neutrophils/100 leukocytes on 2018-03-18 Segmented 64 % (no code) 35 - 80 % [facility] neutrophils/100 [facility] WBC Manual [facility] (40155) (Bld) manual blood basophils/100 leukocytes on 2018-03-18 Basophils/100 0 % (no code) 0.5 - 1 % [facility] WBC Auto (Bld) [facility] (65278) erythrocytes detection in urine sediment by light microscopy on 2018-03-18 RBC LM Ql (Urine 4+ (*) [facility] sed) [facility] (75838) crystals detection in urine sediment by light microscopy on 2018-03-18 Crystals LM Ql NONE (no code) [facility] (Urine sed) [facility] (68491) complete urinalysis with reflex to culture on 2018-03-18 Urinalysis YES (no code) [facility] complete W [facility] Reflex Culture (06111) panel - Urine casts detection in urine sediment by light microscopy on 2018-03-18 Casts LM Ql NONE (no code) [facility] (Urine sed) [facility] (88954) carbon dioxide on 2018-03-18 CO2 molar conc 24 mmol/L (no code) 23 - 29 mmol/L [facility] (27114) calcium measurement corrected for albumin on 2018-03-18 Albumin mass 9.6 g/dL (no code) 3.4 - 5.4 g/dL [facility] conc [facility] (35718) blood neutrophils automated count (number/volume) on 2018-03-18 Neutrophils Auto 10.5 10*3/uL (H) 1.7 - 7 10*3/uL [facility] #/vol (Bld) [facility] (79833) blood monocytes/100 leukocytes on 2018-03-18 Monocytes/100 8 % (no code) 2 - 8 % [facility] WBC Auto (d) [facility] (60597) Monocytes/100 5 % (no code) 2 - 8 % [facility] WBC Auto (d) [facility] (52202) blood monocytes automated count (number/volume) on 2018-03-18 Monocytes Auto 0.8 10*3/uL (no code) 0.3 - 0.9 [facility] #/vol (Bld) 10*3/uL [facility] (92864) blood lymphocytes automated count (number/volume) on 2018-03-18 Lymphocytes Auto 3.5 10*3/uL (no code) 0.9 - 2.9 [facility] #/vol (Bld) 10*3/uL [facility] (42762) blood leukocytes automated count (number/volume) on 2018-03-18 WBC Auto #/vol 15.1 10*3/uL (H) 3.5 - 10.5 [facility] (Bld) 10*3/uL [facility] (23730) blood hematocrit (volume fraction) on 2018-03-18 Hematocrit Auto 44 % (no code) 36.1 - 50.3 % [facility] Volume Fraction [facility] ([facility]) (64951) blood erythrocytes automated count (number/volume) on 2018-03-18 RBC Auto #/vol 4.76 10*6/uL (no code) 4.2 - 6.1 [facility] (Bld) 10*6/uL [facility] (17401) blood erythrocyte morphology finding identification on 2018-03-18 RBC morphology NORMAL (no code) [facility] finding Nom [facility] (d) (70667) blood band neutrophils/100 leukocytes on 2018-03-18 Band form 5 % (no code) 0 - 3 % [facility] neutrophils/100 [facility] WBC Manual cnt (65634) (d) bacteria detection in urine sediment by light microscopy on 2018-03-18 Bacteria LM Ql FEW (*) [facility] (Urine sed) [facility] (07375) automated urine sediment leukocyte count by microscopy (number/high power field) on 2018-03-18 WBC LM.HPF no information (*) [facility] #/area (Urine [facility] sed) (53070) automated urine sediment erythrocyte count by microscopy (number/high power field) on 2018-03-18 RBC LM.HPF no information (*) [facility] #/area (Urine [facility] sed) (34868) automated erythrocyte mean corpuscular volume on 2018-03-18 MCV Auto Entitic 92 fL (no code) 80 - 100 fL [facility] volume (RBC) [facility] (72146) automated erythrocyte mean corpuscular hemoglobin concentration measurement (mass/volume) on 2018-03-18 MCHC Auto mass 33 g/dL (no code) 32 - 36 g/dL [facility] conc (RBC) [facility] (48597) automated erythrocyte mean corpuscular hemoglobin (mass per erythrocyte) on 2018-03-18 MCH Auto Entitic 31 pg (no code) 27 - 31 pg [facility] mass (RBC) [facility] (40248) automated erythrocyte distribution width ratio on 2018-03-18 Erythrocyte 14.7 % (H) 11.6 - 14.6 % [facility] distribution [facility] width Auto Ratio (16477) (RBC) automated eosinophil count on 2018-03-18 Eosinophils Auto 0.2 10*3/uL (no code) 0.05 - 0.5 [facility] #/vol (Bld) 10*3/uL [facility] (08654) automated blood platelet mean volume measurement on 2018-03-18 Platelet mean 10.0 fL (no code) 7.2 - 11.7 fL [facility] volume Auto [facility] Entitic volume (40094) (Bld) automated blood platelet count (count/volume) on 2018-03-18 Platelets Auto 335 10*3/uL (no code) 150 - 450 [facility] #/vol (Bld) 10*3/uL [facility] (38330) automated blood neutrophils/100 leukocytes on 2018-03-18 Neutrophils/100 70 % (no code) 40 - 60 % [facility] WBC Auto (Bld) [facility] (00719) automated blood lymphocytes/100 leukocytes on 2018-03-18 Lymphocytes/100 23 % (no code) 20 - 40 % [facility] WBC Auto (Bld) [facility] (89939) automated blood eosinophils/100 leukocytes on 2018-03-18 Eosinophils/100 1 % (no code) 1 - 4 % [facility] WBC Auto (Bld) [facility] (95719) automated blood basophil count (count/volume) on 2018-03-18 Basophils Auto 0.0 10*3/uL (no code) 0 - 0.3 10*3/uL [facility] #/vol (Bld) [facility] (72298) No panel information on 2018-03-04 Bacteria SEE NOTE (no code) [facility] identified Cx [facility] Nom (U) [facility] () BLO 2+ (no code) [facility] (68262) Exp date no information (no code) [facility] (64754) KET 11/2018~cloudy~o (no code) [facility] range~none~1+~1+ [facility] ~Trace [facility] (05651) Lot # [id number] (no code) [facility] (18934) pH (Bld) 6.0 [pH] (no code) 7.38 - 7.42 [pH] [facility] (30257) Protein (U) 2+ (no code) Critical access hospital [Mass/Vol] [facility] (58763) SG 1.20 (no code) [facility] (08012) URO 2.0 (no code) [facility] (49100) serum or plasma urea nitrogen/creatin ine mass ratio on 2018-01-27 Urea 10 mg/mg (no code) 6 - 22 mg/mg [facility] nitrogen[facility]in [facility] in[facility] mass ratio [place] () serum or plasma urea nitrogen measurement (mass/volume) on 2018-01-27 Urea nitrogen 7 mg/dL (no code) 7 - 20 mg/dL Via [facility] () serum or plasma creatinine measurement with calculation of estimated glomerular filtration rate on 2018-01-27 GFR/1.73 sq M no information (no code) Via [facility] vol rate/area () (S/P/Bld) serum or plasma creatinine measurement (mass/volume) on 2018-01-27 Creatinine mass 0.70 mg/dL (no code) Via [facility] () venous blood hemoglobin measurement (mass/volume) on 2018-01-23 Hemoglobin mass 14.5 g/dL (no code) 12.1 - 17.2 g/dL Via [facility] (d) [facility] () urine urobilinogen measurement by automated test strip (mass/volume) on 2018-01-23 Urobilinogen 1 (no code) Via [facility] Test strip Qn [facility] ([facility] () urine total bilirubin detection by test strip on 2018-01-23 Bilirubin Ql (U) no information (no code) Via [facility] () urine protein assay by test strip, semi-quantitativ e on 2018-01-23 Protein Test 1+ (*) Via [facility] strip () [facility] () urine ph measurement by test strip on 2018-01-23 pH Test strip 7 [pH] (no code) 4.6 - 8 [pH] Via [facility] () [facility] () urine nitrite detection by test strip on 2018-01-23 Nitrite Test no information (no code) Via [place] strip Ql (U) [facility] ([id number]) urine leukocyte esterase detection by dipstick on 2018-01-23 Leukocyte 1+ (*) Via [facility] esterase Test Hospital strip Ql () [place] ([id number]) urine ketones detection by automated test strip on 2018-01-23 Ketones no information (no code) Via [facility] Automated test Hospital strip Ql () [place] ([id number]) urine glucose detection by automated test strip on 2018-01-23 Glucose 4+ (*) Via [facility] Automated test Hospital strip Ql () [place] ([id number]) urine color determination on 2018-01-23 Color Nom (U) YELLOW (no code) Via [facility] ([id number]) urine clarity determination on 2018-01-23 Clarity Nom (U) CLEAR (no code) Via [facility] () squamous epithelial cells detection in urine sediment by light microscopy on 2018-01-23 Epithelial no information (no code) [facility] cells.squamous Hospital LM Ql (Urine [place] sed) () specific gravity of urine by test strip on 2018-01-23 Specific gravity 1.010 (*) [facility] Relative Density [facility] () [place] () serum or plasma urea nitrogen/creatin ine mass ratio on 2018-01-23 Urea 10 mg/mg (no code) 6 - 22 mg/mg [facility] nitrogen/Creatin Hospital ine mass ratio [place] ([id number]) serum or plasma urea nitrogen measurement (mass/volume) on 2018-01-23 Urea nitrogen 8 mg/dL (no code) 7 - 20 mg/dL Via [facility] i mass [facility] ([id number]) serum or plasma total bilirubin measurement (mass/volume) on 2018-01-23 Bilirubin mass 0.7 mg/dL (no code) 0.1 - 1.2 mg/dL Via risti [facility] ([id number]) serum or plasma sodium measurement (moles/volume) on 2018-01-23 Sodium molar 135 mmol/L (no code) 135 - 145 mmol/L Via [facility] isti [facility] ([id number]) serum or plasma protein measurement (mass/volume) on 2018-01-23 Protein mass 8.2 g/dL (no code) 6.4 - 8.3 g/dL Via [facility] ([id number]) serum or plasma potassium measurement (moles/volume) on 2018-01-23 Potassium molar 3.9 mmol/L (no code) 3.7 - 5.2 mmol/L Via [facility] () serum or plasma glucose measurement (mass/volume) on 2018-01-23 Glucose mass 343 mg/dL (H) 60 - 125 mg/dL Via [facility] () serum or plasma creatinine measurement with calculation of estimated glomerular filtration rate on 2018-01-23 GFR/1.73 sq M no information (no code) Via [facility] vol rate/area () (S/P/Bld) serum or plasma creatinine measurement (mass/volume) on 2018-01-23 Creatinine mass 0.78 mg/dL (no code) Via [facility] () serum or plasma chloride measurement (moles/volume) on 2018-01-23 Chloride molar 94 mmol/L (L) 95 - 106 mmol/L Via [facility] () serum or plasma calcium measurement (mass/volume) on 2018-01-23 Calcium mass 9.6 mg/dL (no code) 8.5 - 10.2 mg/dL Via [facility] ([id number]) serum or plasma aspartate aminotransferase measurement (enzymatic activity/volume) on 2018-01-23 AST enzyme 56 U/L (H) 10 - 34 U/L Via [facility] () serum or plasma anion gap determination (moles/volume) on 2018-01-23 Anion gap 3 14 mmol/L (no code) 3 - 11 mmol/L Via [facility] ([id number]) serum or plasma amylase measurement (enzymatic activity/volume) on 2018-01-23 Amylase enzyme 83 U/L (no code) 40 - 140 U/L Via [facility] () serum or plasma alkaline phosphatase measurement (enzymatic activity/volume) on 2018-01-23 ALP enzyme 210 U/L (H) 44 - 147 U/L Via [facility] () serum or plasma albumin measurement (mass/volume) on 2018-01-23 Albumin mass 3.9 g/dL (no code) 3.4 - 5.4 g/dL Via [facility] ([id number]) serum or plasma alanine aminotransferase measurement (enzymatic activity/volume) on 2018-01-23 ALT enzyme 25 U/L (no code) 4 - 40 U/L Via [facility] act/[facility] ([id number]) mucus detection in urine sediment by light microscopy on 2018-01-23 Mucus LM Ql no information (no code) Via [facility] (Urine sed) [facility] ([id number]) lipase on 2018-01-23 Lipase enzyme 133 U/L (H) 10 - 73 U/L Via [facility] act/[facility] ([id number]) erythrocytes detection in urine sediment by light microscopy on 2018-01-23 RBC LM Ql (Urine no information (no code) Via [facility] (45967) crystals detection in urine sediment by light microscopy on 2018-01-23 Crystals LM Ql NONE (no code) Via [facility] (Urine sed) [facility] ([id number]) complete urinalysis with reflex to culture on 2018-01-23 Urinalysis NO (no code) Via [facility] Reflex Culture [place] panel - Urine ([id number]) casts detection in urine sediment by light microscopy on 2018-01-23 Casts LM Ql NONE (no code) Via [facility] (Urine sed) [facility] ([id number]) carbon dioxide on 2018-01-23 CO2 molar conc 27 mmol/L (no code) 23 - 29 mmol/L Via [facility] ([id number]) calcium measurement corrected for albumin on 2018-01-23 Albumin mass 9.7 g/dL (no code) 3.4 - 5.4 g/dL Via [facility] ([id number]) Calcium mass 9.7 mg/dL (no code) 8.5 - 10.2 mg/dL Via [facility] ([id number]) blood neutrophils automated count (number/volume) on 2018-01-23 Neutrophils Auto 8.2 10*3/uL (H) 1.7 - 7 10*3/uL [facility] #/vol (Bld) [facility] ([id number]) blood monocytes/100 leukocytes on 2018-01-23 Monocytes/100 7 % (no code) 2 - 8 % [facility] WBC Auto (Bld) [facility] ([id number]) blood monocytes automated count (number/volume) on 2018-01-23 Monocytes Auto 0.9 10*3/uL (no code) 0.3 - 0.9 Via [facility] #/vol (Bld) 10*3/uL [facility] (79705) blood lymphocytes automated count (number/volume) on 2018-01-23 Lymphocytes Auto 3.4 10*3/uL (no code) 0.9 - 2.9 Via [facility] #/vol (Bld) 10*3/uL [facility] ([id number]) blood leukocytes automated count (number/volume) on 2018-01-23 WBC Auto #/vol 12.7 10*3/uL (H) 3.5 - 10.5 Via [facility] (Bld) 10*3/uL [facility] ([id number]) blood hematocrit (volume fraction) on 2018-01-23 Hematocrit Auto 46 % (no code) 36.1 - 50.3 % Via [facility] Volume Fraction [facility] (d) [place] ([id number]) blood erythrocytes automated count (number/volume) on 2018-01-23 RBC Auto #/vol 4.84 10*6/uL (no code) 4.2 - 6.1 Via [facility] (Bld) 10*6/uL [facility] ([id number]) bacteria detection in urine sediment by light microscopy on 2018-01-23 Bacteria LM Ql FEW (*) Via [facility] (Urine sed) [facility] ([id number]) automated urine sediment leukocyte count by microscopy (number/high power field) on 2018-01-23 WBC LM.HPF RARE (no code) Via [facility] #/area (Urine Hospital sed) [place] ([id number]) automated urine sediment erythrocyte count by microscopy (number/high power field) on 2018-01-23 RBC LM.HPF NONE (no code) Via [facility] #/area (Urine Hospital sed) [place] ([id number]) automated erythrocyte mean corpuscular volume on 2018-01-23 MCV Auto Entitic 94 fL (no code) 80 - 100 fL Via [facility] volume (RBC) [facility] ([id number]) automated erythrocyte mean corpuscular hemoglobin concentration measurement (mass/volume) on 2018-01-23 MCHC Auto mass 32 g/dL (no code) 32 - 36 g/dL Via [facility] conc (RBC) [facility] ([id number]) automated erythrocyte mean corpuscular hemoglobin (mass per erythrocyte) on 2018-01-23 MCH Auto Entitic 30 pg (no code) 27 - 31 pg Via [facility] ti mass (RBC) [facility] () automated erythrocyte distribution width ratio on 2018-01-23 Erythrocyte 14.1 % (no code) 11.6 - 14.6 % Via [facility] distribution Hospital width Auto Ratio [place] (RBC) () automated eosinophil count on 2018-01-23 Eosinophils Auto 0.1 10*3/uL (no code) 0.05 - 0.5 Via [facility] #/vol (Bld) 10*3/uL [facility] ([id number]) automated blood platelet mean volume measurement on 2018-01-23 Platelet mean 11.4 fL (H) 7.2 - 11.7 fL Via [facility] ti volume Auto Hospital Entitic volume [place] (Bld) () automated blood platelet count (count/volume) on 2018-01-23 Platelets Auto 278 10*3/uL (no code) 150 - 450 Via [facility] #/vol (Bld) 10*3/uL [facility] ([id number]) automated blood neutrophils/100 leukocytes on 2018-01-23 Neutrophils/100 65 % (no code) 40 - 60 % Via [facility] WBC Auto (Bld) [facility] () automated blood lymphocytes/100 leukocytes on 2018-01-23 Lymphocytes/100 26 % (no code) 20 - 40 % Via [facility] WBC Auto (Bld) [facility] () automated blood eosinophils/100 leukocytes on 2018-01-23 Eosinophils/100 1 % (no code) 1 - 4 % Via [facility] WBC Auto (Bld) [facility] ([id number]) automated blood basophils/100 leukocytes on 2018-01-23 Basophils/100 1 % (no code) 0.5 - 1 % Via [facility] WBC Auto (Bld) [facility] ([id number]) automated blood basophil count (count/volume) on 2018-01-23 Basophils Auto 0.1 10*3/uL (no code) 0 - 0.3 10*3/uL Via [facility]isti #/vol (Bld) [facility] ([id number]) urine urobilinogen measurement by automated test strip (mass/volume) on 2017-12-07 Urobilinogen NORMAL (no code) Via [facility] Test strip Qn [facility] ([id number]) urine total bilirubin detection by test strip on 2017-12-07 Bilirubin Ql (U) no information (no code) Via [facility] ([id number]) urine protein assay by test strip, semi-quantitativ e on 2017-12-07 Protein Test 1+ (*) Via [facility] strip () [facility] ([id number]) urine ph measurement by test strip on 2017-12-07 pH Test strip 6.5 [pH] (no code) 4.6 - 8 [pH] Via [facility] (U) [facility] ([id number]) urine nitrite detection by test strip on 2017-12-07 Nitrite Test no information (no code) Via [facility] strip ([facility] ([id number]) urine ketones detection by automated test strip on 2017-12-07 Ketones no information (no code) Via [facility] Automated test Hospital strip ([facility] ([id number]) urine glucose detection by automated test strip on 2017-12-07 Glucose 4+ (*) Via [facility] Automated test Hospital strip () [place] ([id number]) urine color determination on 2017-12-07 Color Nom (U) YELLOW (no code) Via [facility] (24745) urine clarity determination on 2017-12-07 Clarity Nom (U) SLIGHTLY CLOUDY (no code) Via [facility] ([id number]) squamous epithelial cells detection in urine sediment by light microscopy on 2017-12-07 Epithelial no information (*) [facility] cells.squamous Hospital LM Ql (Urine [place] sed) ([id number]) specific gravity of urine by test strip on 2017-12-07 Specific gravity 1.015 (*) [facility] Relative Density [facility] ([facility] ([id number]) mucus detection in urine sediment by light microscopy on 2017-12-07 Mucus LM Ql SMALL (*) Via [facility] (Urine sed) [facility] ([id number]) leukocyte esterase on 2017-12-07 Leukocyte 1+ (*) Via [facility] esterase Test Hospital strip () [place] (31025) erythrocytes detection in urine sediment by light microscopy on 2017-12-07 RBC LM Ql (Urine no information (no code) Via [facility] sed) [facility] ([id number]) crystals detection in urine sediment by light microscopy on 2017-12-07 Crystals LM Ql NONE (no code) Via [facility] (Urine sed) [facility] ([id number]) complete urinalysis with reflex to culture on 2017-12-07 Complete NO (no code) Via [facility] urinalysis with Hospital reflex to [place] culture ([id number]) casts detection in urine sediment by light microscopy on 2017-12-07 Casts LM Ql NONE (no code) Via [facility] (Urine sed) [facility] ([id number]) bacteria detection in urine sediment by light microscopy on 2017-12-07 Bacteria LM Ql MODERATE (*) Via [facility] (Urine sed) [facility] ([id number]) automated urine sediment leukocyte count by microscopy (number/high power field) on 2017-12-07 WBC LM.HPF no information (no code) Via [facility] #/area (Urine [facility]) [place] (62714) automated urine sediment erythrocyte count by microscopy (number/high power field) on 2017-12-07 RBC LM.HPF NONE (no code) Via [facility] #/area (Urine [facility] ([id number]) No panel information on 2017-12-01 BLO no information (no code) [facility] ([id number]) KET 06/2018~cloudy~ye (no code) [facility] llow~slight~2+~n [facility] eg~neg [facility] ([id number]) HUSSEIN neg~neg (no code) [facility] ([id number]) Lot # [id number] (no code) [facility] (05706) pH (Bld) 6.0 [pH] (no code) 7.38 - 7.42 [pH] [facility] (72129) Protein mass no information (no code) 0 - 20 mg/dL [facility] conc (U) [facility] (49004) SG 1.025 (no code) [facility] (77681) URO 0.2 (no code) [facility] (39268) venous blood hemoglobin measurement (mass/volume) on 2017-11-24 Hemoglobin mass 14.8 g/dL (no code) 12.1 - 17.2 g/dL Via [facility] (d) [facility] () serum rickettsia rickettsii igg antibody assay (units/volume) on 2017-11-24 R. rickettsii no information (no code) Via [facility] IgG Qn (S) [facility] () serum or plasma urea nitrogen/creatin ine mass ratio on 2017-11-24 Urea 10 mg/mg (no code) 6 - 22 mg/mg [facility] nitrogen/Creatin Hospital ine mass ratio [place] () serum or plasma urea nitrogen measurement (mass/volume) on 2017-11-24 Urea nitrogen 8 mg/dL (no code) 7 - 20 mg/dL Via [facility] () serum or plasma total bilirubin measurement (mass/volume) on 2017-11-24 Bilirubin mass 0.7 mg/dL (no code) 0.1 - 1.2 mg/dL Via [facility] ([id number]) serum or plasma sodium measurement (moles/volume) on 2017-11-24 Sodium molar 135 mmol/L (no code) 135 - 145 mmol/L Via [facility] ([id number]) serum or plasma protein measurement (mass/volume) on 2017-11-24 Protein mass 8.2 g/dL (no code) 6.4 - 8.3 g/dL Via [facility] () serum or plasma potassium measurement (moles/volume) on 2017-11-24 Potassium molar 4.1 mmol/L (no code) 3.7 - 5.2 mmol/L Via [facility] () serum or plasma glucose measurement (mass/volume) on 2017-11-24 Glucose mass 278 mg/dL (H) 60 - 125 mg/dL Via [facility] () serum or plasma creatinine measurement with calculation of estimated glomerular filtration rate on 2017-11-24 GFR/1.73 sq M no information (no code) Via [facility] non-blacks [facility] vol rate/area () (S/P/Bld) serum or plasma creatinine measurement (mass/volume) on 2017-11-24 Creatinine mass 0.79 mg/dL (no code) Via [facility] () serum or plasma chloride measurement (moles/volume) on 2017-11-24 Chloride molar 94 mmol/L (L) 95 - 106 mmol/L Via risti [facility] ([id number]) serum or plasma calcium measurement (mass/volume) on 2017-11-24 Calcium mass 9.7 mg/dL (no code) 8.5 - 10.2 mg/dL Via [facility] isti [facility] (63831) serum or plasma aspartate aminotransferase measurement (enzymatic activity/volume) on 2017-11-24 AST enzyme 63 U/L (H) 10 - 34 U/L Via [facility] (74373) serum or plasma anion gap determination (moles/volume) on 2017-11-24 Anion gap 3 13 mmol/L (no code) 3 - 11 mmol/L [facility] molar [facility] (73539) serum or plasma alkaline phosphatase measurement (enzymatic activity/volume) on 2017-11-24 ALP enzyme 168 U/L (H) 44 - 147 U/L Via [facility] (59005) serum or plasma albumin measurement (mass/volume) on 2017-11-24 Albumin mass 4.1 g/dL (no code) 3.4 - 5.4 g/dL Via [facility] ([id number]) serum or plasma alanine aminotransferase measurement (enzymatic activity/volume) on 2017-11-24 ALT enzyme 36 U/L (no code) 4 - 40 U/L Via [facility] ([id number]) serum ehrlichia chaffeensis igm antibody detection on 2017-11-24 E. chaffeensis no information (no code) [facility] IgM (S) [facility] ([id number]) serum ehrlichia chaffeensis igg antibody detection on 2017-11-24 E. chaffeensis no information (no code) [facility] IgG Ql (S) [facility] ([id number]) izzy [place] spotted fever panel on 2017-11-24 [place] no information (no code) [facility] spotted fever [facility] panel [place] (71743) interpretation of lyme disease antibody assay on 2017-11-24 B. burgdorferi no information (no code) Via [facility] Ab Inter (S) [facility] ([id number]) francisella tularensis antibody assay on 2017-11-24 Francisella no information (no code) Via [facility] on Ql (S) () carbon dioxide on 2017-11-24 CO2 molar conc 28 mmol/L (no code) 23 - 29 mmol/L Via [facility] () calcium measurement corrected for albumin on 2017-11-24 Calcium mass 9.6 mg/dL (no code) 8.5 - 10.2 mg/dL Via [facility] is conc [facility] () blood neutrophils automated count (number/volume) on 2017-11-24 Neutrophils Auto 9.0 10*3/uL (H) 1.7 - 7 10*3/uL Via [facility] #/vol (Bld) [facility] () blood monocytes/100 leukocytes on 2017-11-24 Monocytes/100 9 % (no code) 2 - 8 % Via [facility] WBC Auto (Bld) [facility] () blood monocytes automated count (number/volume) on 2017-11-24 Monocytes Auto 1.3 10*3/uL (H) 0.3 - 0.9 Via [facility] #/vol (Bld) 10*3/uL [facility] () blood lymphocytes automated count (number/volume) on 2017-11-24 Lymphocytes Auto 3.4 10*3/uL (no code) 0.9 - 2.9 Via [facility] #/vol (Bld) 10*3/uL [facility] () blood leukocytes automated count (number/volume) on 2017-11-24 WBC Auto #/vol 13.9 10*3/uL (H) 3.5 - 10.5 Via [facility] (Bld) 10*3/uL [facility] () blood hematocrit (volume fraction) on 2017-11-24 Hematocrit Auto 46 % (no code) 36.1 - 50.3 % Via [facility] Volume Fraction Hospital (Bld) [place] () blood erythrocytes automated count (number/volume) on 2017-11-24 RBC Auto #/vol 4.80 10*6/uL (no code) 4.2 - 6.1 Via [facility] (Bld) 10*6/uL [facility] () bacterial urine culture on 2017-11-24 Bacteria Organism: SEE (no code) Via [facility] identified Cx COMMENTS Hospital Nom (U) [place] ([id number]) automated erythrocyte mean corpuscular volume on 2017-11-24 MCV Auto Entitic 96 fL (no code) 80 - 100 fL Via [facility] volume (RBC) [facility] ([id number]) automated erythrocyte mean corpuscular hemoglobin concentration measurement (mass/volume) on 2017-11-24 MCHC Auto mass 32 g/dL (no code) 32 - 36 g/dL Via [facility] ti conc (RBC) [facility] (54963) automated erythrocyte mean corpuscular hemoglobin (mass per erythrocyte) on 2017-11-24 MCH Auto Entitic 31 pg (no code) 27 - 31 pg Via [facility] ti mass (RBC) [facility] ([id number]) automated erythrocyte distribution width ratio on 2017-11-24 Erythrocyte 15.0 % (H) 11.6 - 14.6 % Via [facility] distribution Hospital width Auto Ratio [place] (RBC) ([id number]) automated eosinophil count on 2017-11-24 Eosinophils Auto 0.2 10*3/uL (no code) 0.05 - 0.5 Via [facility] ti #/vol (Bld) 10*3/uL [facility] (59549) automated blood platelet mean volume measurement on 2017-11-24 Platelet mean 11.1 fL (H) 7.2 - 11.7 fL Via [facility] ti volume Auto Hospital Entitic volume [place] (Bld) (89731) automated blood platelet count (count/volume) on 2017-11-24 Platelets Auto 337 10*3/uL (no code) 150 - 450 Via [facility] #/vol (Bld) 10*3/uL [facility] (52899) automated blood neutrophils/100 leukocytes on 2017-11-24 Neutrophils/100 65 % (no code) 40 - 60 % Via [facility] WBC Auto (Bld) [facility] (36701) automated blood lymphocytes/100 leukocytes on 2017-11-24 Lymphocytes/100 25 % (no code) 20 - 40 % [facility] WBC Auto (Bld) [facility] (05822) automated blood eosinophils/100 leukocytes on 2017-11-24 Eosinophils/100 1 % (no code) 1 - 4 % [facility] WBC Auto (Bld) [facility] (89710) automated blood basophils/100 leukocytes on 2017-11-24 Basophils/100 0 % (no code) 0.5 - 1 % Via [facility] WBC Auto (Bld) [facility] ([id number]) automated blood basophil count (count/volume) on 2017-11-24 Basophils Auto 0.1 10*3/uL (no code) 0 - 0.3 10*3/uL Via [facility]isti #/vol (Bld) [facility] (71551) No panel information on 2017-11-24 no information 0.07 (no code) Via [facility] (45829) urine urobilinogen measurement by automated test strip (mass/volume) on 2017-11-04 Urobilinogen 4 (*) [facility] Test strip Qn [facility] ([id number]) urine total bilirubin detection by test strip on 2017-11-04 Bilirubin Ql () 3+ (*) Via [facility] () urine protein assay by test strip, semi-quantitativ e on 2017-11-04 Protein Test 3+ (*) Via [facility] strip [facility] () urine ph measurement by test strip on 2017-11-04 pH Test strip 5 [pH] (no code) 4.6 - 8 [pH] Via [facility] ([facility] ([id number]) urine nitrite detection by test strip on 2017-11-04 Nitrite Test no information (*) Via [facility] strip [facility] ([id number]) urine ketones detection by automated test strip on 2017-11-04 Ketones no information (no code) Via [facility] Automated test Hospital strip Ql ([facility] (01987) urine glucose detection by automated test strip on 2017-11-04 Glucose no information (no code) Via [facility] Automated test Hospital strip ([facility] ([id number]) urine color determination on 2017-11-04 Color Nom (U) ORANGE (no code) Via [facility] ([id number]) urine clarity determination on 2017-11-04 Clarity Nom (U) VERY CLOUDY (*) Via [facility] (28687) squamous epithelial cells detection in urine sediment by light microscopy on 2017-11-04 Epithelial no information (no code) Via [facility] cells.squamous Hospital LM Ql (Urine [place] sed) ([id number]) specific gravity of urine by test strip on 2017-11-04 Specific gravity 1.020 (no code) Via [facility] Relative Density [facility] (19214) mucus detection in urine sediment by light microscopy on 2017-11-04 Mucus LM Ql no information (no code) Via [facility] (Urine sed) [facility] (92505) leukocyte esterase on 2017-11-04 Leukocyte no information (no code) [facility] esterase Test Hospital strip Ql (U) [place] (84389) granular casts detection in urine sediment by light microscopy on 2017-11-04 Granular casts no information (*) [facility] LM Ql (Urine Hospital sed) [place] (05694) erythrocytes detection in urine sediment by light microscopy on 2017-11-04 RBC LM Ql (Urine 2+ (*) [facility] sed) [facility] (39996) crystals detection in urine sediment by light microscopy on 2017-11-04 Crystals LM Ql NONE (no code) [facility] (Urine sed) [facility] (99678) complete urinalysis with reflex to culture on 2017-11-04 Complete YES (no code) [facility] urinalysis with Hospital reflex to [place] culture ([id number]) casts detection in urine sediment by light microscopy on 2017-11-04 Casts LM Ql PRESENT (no code) [facility] (Urine sed) [facility] (25837) bacteria detection in urine sediment by light microscopy on 2017-11-04 Bacteria LM Ql MODERATE (*) [facility] (Urine sed) [facility] (79087) automated urine sediment leukocyte count by microscopy (number/high power field) on 2017-11-04 WBC LM.HPF no information (*) [facility] #/area (Urine Hospital sed) [place] (81376) automated urine sediment erythrocyte count by microscopy (number/high power field) on 2017-11-04 RBC LM.HPF no information (*) [facility] #/area (Urine Hospital sed) [place] (23071) No panel information on 2017-11-01 BLO 3+ (no code) [facility] (90522) Exp date no information (no code) [facility] (53341) KET 2019 04 (no code) [facility] 30~cloudy~red~no [facility] ne~trace~1+~trac [facility] e (21116) Lot # [id number] (no code) [facility] (85593) pH (Bld) 6.0 [pH] (no code) 7.38 - 7.42 [pH] [facility] (87475) Protein mass 2+ (no code) Critical access hospital conc (U) [facility] (04605) SG 1.025 (no code) [facility] (35933) URO 4.0 (no code) [facility] (31025) No panel information on 2017-09-23 Alphahydroxyalpr 399 (H) Not Available azolam (14280) Alphahydroxymida no information (no code) Not Available zolam (13067) Alphahydroxytria no information (no code) Not Available zolam (83387) Aminoclonazepam no information (no code) Not Available (40041) Hydroxyethylflur no information (no code) Not Available azepam (92903) Lorazepam no information (no code) Not Available (45816) Nordiazepam no information (no code) Not Available (27801) Oxazepam no information (no code) Not Available (55402) Temazepam no information (no code) Not Available (32520) Amphetamines Ql no information (no code) Not Available (U) (40988) Barbiturates no information (no code) Not Available (56091) Benzodiazepines no information (A) Not Available Screen Ql (U) (67670) Benzoylecgonine no information (no code) Not Available Ql (U) (84410) COMMENT no information (no code) Not Available (03559) Creatinine mass 115.7 mg/dL (no code) Not Available conc (U) (66812) medMATCH CONSISTENT (no code) Not Available Aminoclonazepam (40147) medMATCH CONSISTENT (no code) Not Available Amphetamines (09382) medMATCH aOH CONSISTENT (no code) Not Available alprazolam (75056) medMATCH aOH CONSISTENT (no code) Not Available midazolam (80217) medMATCH aOH CONSISTENT (no code) Not Available triazolam (42258) medMATCH CONSISTENT (no code) Not Available Barbiturates (42513) medMATCH Cocaine CONSISTENT (no code) Not Available Metab (08394) medMATCH CONSISTENT (no code) Not Available Lorazepam (04952) medMATCH CONSISTENT (no code) Not Available Marijuana Metab (57617) medMATCH CONSISTENT (no code) Not Available Methadone Metab (56954) medMATCH CONSISTENT (no code) Not Available Nordiazepam (40501) medMATCH [place],Et CONSISTENT (no code) Not Available flurazepam (55451) medMATCH Opiates INCONSISTENT (no code) Not Available (03211) medMATCH CONSISTENT (no code) Not Available Oxazepam (57027) medMATCH CONSISTENT (no code) Not Available Oxycodone (30330) medMATCH CONSISTENT (no code) Not Available Phencyclidine (32762) medMATCH CONSISTENT (no code) Not Available Temazepam (80751) Methadone Ql (U) no information (no code) Not Available (97872) Opiates Ql (U) no information (no code) Not Available (71544) Oxidant no information (no code) Not Available (12373) Oxycodone no information (no code) Not Available (06165) pH (Bld) 6.48 [pH] (no code) 7.38 - 7.42 [pH] Not Avai lable (77475) Phencyclidine Ql no information (no code) Not Available (U) (31285) Prescribed Drug Xanax(TM) (no code) Not Available 1 (97159) Prescribed Drug Hydrocodone (no code) Not Available 2 (06146) Tetrahydrocannab no information (no code) Not Available inol Ql (U) (76172) ua long dip (in house) on 2017-09-12 Glucose Test TRACE (no code) 09-12-2017 [facility] lt strip mass conc 13:00-0400 Center (U) [facility] (89656) Protein mass no information (no code) 0 - 20 mg/dL 09-12-2017 [facility] conc (U) 13:00-0400 [facility] (25288) UA LONG DIP (IN 18 Jul 2018 (no code) 09-12-2017 [facility]) 13:00-0400 [facility] (50681) UA LONG DIP (IN clear (no code) 09-12-2017 [facility]) 13:00-0400 [facility] (18507) UA LONG DIP (IN dark yellow (no code) 09-12-2017 [facility]) 13:00-0400 [facility] (47600) UA LONG DIP (IN no (no code) 09-12-2017 [facility]) 13:00-0400 [facility] (94478) UA LONG DIP (IN no information (no code) 09-12-2017 [facility]) 13:00-0400 [facility] (45941) UA LONG DIP (IN [id number] (no code) 09-12-2017 [facility]) 13:00-0400 [facility] (41694) UA LONG DIP (IN 6.0 (no code) 09-12-2017 [facility]) 13:00-0400 [facility] (51640) UA LONG DIP (IN 1.025 (no code) 09-12-2017 [facility]) 13:00-0400 [facility] (17212) UA LONG DIP (IN 0.2 (no code) 09-12-2017 [facility]) 13:00-0400 [facility] (31795) UA LONG DIP (IN [id number] (no code) 09-12-2017 [facility]) 13:00-0400 [facility] (25525) UA LONG DIP (IN Feb 2018 (no code) 09-12-2017 [facility]) 13:00-0400 [facility] (59498) No panel information on 2017-09-12 BLO no information (no code) [facility] (75397) KET 30 Apr (no code) [facility] 2019~clear~dark [facility] yellow~no~TRACE~ [facility] Negative~Negativ (65035) e Lot # [id number] (no code) [facility] (32294) pH (Bld) 6.0 [pH] (no code) 7.38 - 7.42 [pH] [facility] (69889) Protein mass no information (no code) 0 - 20 mg/dL Critical access hospital (U) [facility] (71722) SG 1.025 (no code) [facility] (85685) URO 0.2 (no code) [facility] (93360) No panel information on 2017-08-26 BLO 01/18/2018~cloud (no code) [facility] y~dark [facility] yellow~yes~negat [facility] ad~1+~negative~ (07505) >=1.030~negative HUSSEIN no information (no code) [facility] (15963) Lot # [id number] (no code) [facility] (32928) pH (Bld) 5.5 [pH] (no code) 7.38 - 7.42 [pH] [facility] (67843) Protein mass 1+ (no code) [facility] conc (U) [facility] (21012) URO 0.2 (no code) [facility] (43293) No panel information on 2017-08-19 Bacteria SEE NOTE (no code) [facility] identified Cx [facility] Nom (U) [facility] (24233) BLO 2018 06 (no code) [facility] 30~clear~yellow~ [facility] none~negative~1+ [facility] ~trace~>=1.030~t (26746) race Exp date no information (no code) [facility] (83872) Lot # [id number] (no code) [facility] (69808) pH (Bld) 5.5 [pH] (no code) 7.38 - 7.42 [pH] [facility] (99965) Protein mass 1+ (no code) [facility] conc (U) [facility] (03616) URO 0.2 (no code) [facility] (29872) venous blood hemoglobin measurement (mass/volume) on 2017-08-16 Hemoglobin (HGB) 14.8 g/dL (no code) 12 - 18 g/dL [facility] (49073) serum or plasma urea nitrogen/creatin ine mass ratio on 2017-08-16 BUN/Creatinine 9 mg/mg (no code) 10 - 20 mg/mg [facility] (33354) serum or plasma urea nitrogen measurement (mass/volume) on 2017-08-16 Urea nitrogen 7 mg/dL (no code) 7 - 20 mg/dL [facility] (65479) serum or plasma total bilirubin measurement (mass/volume) on 2017-08-16 Bilirubin 0.6 mg/dL (no code) 0.3 - 1.9 mg/dL [facility] (total) [facility] (39304) serum or plasma sodium measurement (moles/volume) on 2017-08-16 Sodium 137 mmol/L (no code) 135 - 147 mmol/L [facility] (82348) serum or plasma protein measurement (mass/volume) on 2017-08-16 Protein 7.8 g/dL (no code) 6.4 - 8.3 g/dL [facility] (20112) serum or plasma potassium measurement (moles/volume) on 2017-08-16 Potassium 3.9 mmol/L (no code) 3.5 - 5.1 mmol/L [facility] (64340) serum or plasma glucose measurement (mass/volume) on 2017-08-16 Glucose 308 mg/dL (H) 60 - 125 mg/dL [facility] (67496) serum or plasma creatinine measurement with calculation of estimated glomerular filtration rate on 2017-08-16 eGFR (non-black) no information (no code) [facility] (07679) serum or plasma creatinine measurement (mass/volume) on 2017-08-16 Creatinine 0.74 mg/dL (no code) [facility] (94296) serum or plasma chloride measurement (moles/volume) on 2017-08-16 Chloride 96 mmol/L (L) 95 - 106 mmol/L [facility] (10224) serum or plasma calcium measurement (mass/volume) on 2017-08-16 Calcium 9.6 mg/dL (no code) 9 - 11 mg/dL [facility] (81263) serum or plasma aspartate aminotransferase measurement (enzymatic activity/volume) on 2017-08-16 Aspartate 83 U/L (H) 10 - 34 U/L [facility] amin[facility] [place] (61923) serum or plasma anion gap determination (moles/volume) on 2017-08-16 Anion gap 16 mmol/L (H) 3 - 11 mmol/L [facility] (53128) serum or plasma alkaline phosphatase measurement (enzymatic activity/volume) on 2017-08-16 Alkaline 156 U/L (H) 44 - 147 U/L [facility] phosphatase [facility] [place] (58698) serum or plasma albumin measurement (mass/volume) on 2017-08-16 Albumin 4.0 g/dL (no code) 3.5 - 5.5 g/dL [facility] (81404) serum or plasma alanine aminotransferase measurement (enzymatic activity/volume) on 2017-08-16 Alanine 52 U/L (no code) 10 - 40 U/L [facility] (ALT) [place] (94969) carbon dioxide on 2017-08-16 CO2 25 mmol/L (no code) 23 - 29 mmol/L [facility] (23944) blood neutrophils automated count (number/volume) on 2017-08-16 Neutrophils 8.4 10*3/uL (H) 1.5 - 7.8 [facility] 10*3/[facility] (66851) blood monocytes/100 leukocytes on 2017-08-16 Monocytes/100 7 % (no code) 2 - 8 % [facility] (78934) blood monocytes automated count (number/volume) on 2017-08-16 Monocytes 1.0 10*3/uL (no code) 0.2 - 1.1 [facility] 10*3/uL [facility] (16040) blood lymphocytes automated count (number/volume) on 2017-08-16 Lymphocytes 3.7 10*3/uL (no code) 0.85 - 4.1 [facility] 10*3/uL [facility] (05682) blood leukocytes automated count (number/volume) on 2017-08-16 WBC (Leukocytes) 13.3 10*3/uL (H) 3.8 - 10.8 [facility] 10*3/uL [facility] (01781) blood hematocrit (volume fraction) on 2017-08-16 Hematocrit (HCT) 45 % (no code) 39 - 51 % [facility] (74292) blood erythrocytes automated count (number/volume) on 2017-08-16 Erythrocytes 4.72 10*6/uL (no code) 4.2 - 6.1 [facility] (RBC) 10*6/uL [facility] (28058) automated erythrocyte mean corpuscular volume on 2017-08-16 MCV 95 fL (no code) 80 - 100 fL [facility] (98599) automated erythrocyte mean corpuscular hemoglobin concentration measurement (mass/volume) on 2017-08-16 MCHC 33 g/dL (no code) 32 - 36 g/dL [facility] (45887) automated erythrocyte mean corpuscular hemoglobin (mass per erythrocyte) on 2017-08-16 MCH 31 pg (no code) 27 - 31 pg [facility] (77002) automated erythrocyte distribution width ratio on 2017-08-16 RDW-CA 13.9 % (no code) 11 - 15 % [facility] (55874) automated eosinophil count on 2017-08-16 Eosinophils 0.2 10*3/uL (no code) 0.05 - 1.5 [facility] 10*3/uL [facility] (87822) automated blood platelet mean volume measurement on 2017-08-16 Platelet mean 11.1 fL (H) 7.2 - 11.7 fL [facility] (PMV) [facility] (85564) automated blood platelet count (count/volume) on 2017-08-16 Platelets 299 10*3/uL (no code) 150 - 400 [facility] 10*3/uL [facility] (88545) automated blood neutrophils/100 leukocytes on 2017-08-16 Neutrophils/100 63 % (no code) 40 - 60 % [facility] leukocytes [facility] (17939) automated blood lymphocytes/100 leukocytes on 2017-08-16 Lymphocytes/100 28 % (no code) 20 - 40 % [facility] leukocytes [facility] (22372) automated blood eosinophils/100 leukocytes on 2017-08-16 Eosinophils/100 1 % (no code) 1 - 4 % [facility] leukocytes [facility] (17698) automated blood basophils/100 leukocytes on 2017-08-16 Basophils/100 0 % (no code) 0.5 - 1 % [facility] (43241) automated blood basophil count (count/volume) on 2017-08-16 Basophils 0.1 10*3/uL (no code) 0 - 0.2 10*3/uL [facility] (64777) No panel information on 2017-08-02 Cholesterol in 16 mg/dL (L) [facility] HDL mass conc [facility] (98836) Cholesterol in 72 (N) [facility] LDL mass conc [facility] (29440) Cholesterol mass 125 mg/dL (N) 180 - 200 mg/dL [facility] conc [facility] (91177) Cholesterol non 109 (N) [facility] HDL mass conc [facility] (61952) Cholesterol.tota 7.8 (H) [facility] l/Ch[facility] in [facility] HDL mass ratio [facility] (64962) Triglyceride 278 mg/dL (H) 0 - 150 mg/dL [facility] mass conc [facility] (98180) hepatitis profile on 2017-06-23 Hepatitis A IgM NON-REACTIVE (no code) 06-23-2017 [facility] antibody 13:00-0400 [facility] (68153) Hepatitis B NON-REACTIVE (no code) 06-23-2017 [facility] antibody 13:00-0400 [facility] presence [facility] (94426) Hepatitis B NON-REACTIVE (no code) 06-23-2017 [facility] antigen presence 13:00-0400 [facility] of [facility] (34036) Hepatitis C NON-REACTIVE (no code) 06-23-2017 [facility] antibody 13:00-0400 [facility] of presence [facility] (78768) Hepatitis C 0.02 {ratio} (no code) 0 - 3 {ratio} 06-23-2017 [facility] antibody 13:00-0400 Center of Signal/Cutoff [facility] (31920) ggt on 2017-06-23 Gamma glutamyl 198 U/L (no code) 0 - 30 U/L 06-23-2017 [facility] transferase 13:00-0400 [facility] of [facility] (63984) cbc on 2017-06-23 Basophils 115 10*3/uL (no code) 0 - 0.3 10*3/uL 06-23-2017 [facility] 13:00-0400 [facility] (90669) Basophils/100 0.9 % (no code) 0.5 - 1 % 06-23-2017 [facility] leukocytes 13:00-0400 [facility] (88748) Eosinophils 166 10*3/uL (no code) 0.05 - 0.5 06-23-2017 [facility] 10*3/uL 13:00-0400 [facility] (19639) Eosinophils/100 1.3 % (no code) 1 - 4 % 06-23-2017 [facility] leukocytes 13:00-0400 [facility] (84831) Erythrocytes 4.89 10*6/uL (no code) 4.2 - 6.1 06-23-2017 [facility] Health (RBC) 10*6/uL 13:00-0400 [facility] (68766) Hematocrit (HCT) 47.0 % (no code) 36.1 - 50.3 % 06-23-2017 [facility] 13:00-0400 [facility] (04293) Hemoglobin (HGB) 15.0 g/dL (no code) 12.1 - 17.2 g/dL 06-23-2017 [facility] 13:00-0400 [facility] (34083) Lymphocytes 4211 10*3/uL (no code) 0.9 - 2.9 06-23-2017 [facility] 10*3/uL 13:00-0400 [facility] (25407) Lymphocytes/100 32.9 % (no code) 20 - 40 % 06-23-2017 [facility] leukocytes 13:00-0400 [facility] (77549) MCH 30.7 pg (no code) 27 - 31 pg 06-23-2017 [facility] 13[facility]00-0400 [facility] (62509) MCHC 31.9 g/dL (no code) 32 - 36 g/dL 06-23-2017 [facility] 13:00-0400 [facility] (74235) MCV 96.1 fL (no code) 80 - 100 fL 06-23-2017 [facility] 13:00-0400 [facility] (10240) Monocytes 1152 10*3/uL (no code) 0.3 - 0.9 06-23-2017 [facility] 10*3/uL 13:00-0400 [facility] (31596) Monocytes/100 9.0 % (no code) 2 - 8 % 06-23-2017 [facility] leukocytes 13:00-0400 [facility] (12941) Neutrophils 7155 10*3/uL (no code) 1.7 - 7 10*3/uL 06-23-2017 [facility] 13:00-0400 [facility] (67249) Neutrophils/100 55.9 % (no code) 40 - 60 % 06-23-2017 [facility] leukocytes 13:00-0400 [facility] (81811) Platelets 349 10*3/uL (no code) 150 - 450 06-23-2017 [facility] 10*3/uL 13:00-0400 [facility] (06909) PMV by 10.8 fL (no code) 7.2 - 11.7 fL 06-23-2017 [facility] 13:00-0400 [facility] (64748) RDW-CA 12.4 % (no code) 11.6 - 14.6 % 06-23-2017 [facility] 13:00-0400 [facility] (46443) WBC (Leukocytes) 12.8 10*3/uL (no code) 3.5 - 10.5 06-23-2017 [facility] 10*3/uL 13:00-0400 [facility] (17313) No panel information on 2017-06-23 Basophils Auto 0.115 10*3/uL (N) 0 - 0.3 10*3/uL [facility] #/vol (Bld) [facility] (71619) Eosinophils Auto 0.166 10*3/uL (N) 0.05 - 0.5 [facility] #/vol (Bld) 10*3/uL [facility] (50760) Lymphocytes Auto 4.211 10*3/uL (H) 0.9 - 2.9 [facility] #/vol (Bld) 10*3/uL [facility] (11138) Monocytes Auto 1.152 10*3/uL (H) 0.3 - 0.9 [facility] #/vol (Bld) 10*3/uL [facility] (79390) Neutrophils Auto 7.155 10*3/uL (N) 1.7 - 7 10*3/uL [facility] #/vol (Bld) [facility] (77207) Platelet mean 10.8 fL (N) 7.2 - 11.7 fL [facility] volume Auto [facility] Entitic volume [facility] (Bld) (34305) No panel information on 2017-06-17 NEGATED no information (H) [facility] information [facility] (26159) NEGATED no information (no code) [facility] information [facility] (06510) NEGATED no information (no code) [facility] information [facility] (53964) NEGATED no information (no code) [facility] (75519) NEGATED no information (no code) [facility] (52155) NEGATED no information (no code) [facility] (08258) NEGATED no information (no code) [facility] information [facility] (34164) NEGATED no information (no code) [facility] information [facility] (75477) NEGATED no information (no code) [facility] (86251) NEGATED no information (N) [facility] information [place] (31162) NEGATED no information (N) [facility] information [facility] (26603) NEGATED no information (H) [facility] (67124) NEGATED no information (H) [facility] information [place] (40306) NEGATED no information (no code) [facility] [place] (42895) NEGATED no information (N) [facility] [place] (11180) NEGATED no information (H) [facility] information [place] (98461) NEGATED no information (N) [facility] [place] (79646) NEGATED no information (N) [facility] [place] (98590) NEGATED no information (A) [facility] [place] (75416) NEGATED no information (no code) [facility] [place] (95481) NEGATED no information (N) [facility] information [place] (40387) NEGATED no information (N) [facility] [place] (66506) NEGATED no information (L) [facility] [place] (71850) NEGATED no information (N) [facility] [place] (37227) NEGATED no information (no code) [facility] information [place] (18836) NEGATED no information (N) [facility] [place] (37951) NEGATED no information (no code) [facility] [place] (05924) NEGATED no information (N) [facility] [place] (92061) NEGATED no information (N) [facility] [place] (88067) NEGATED no information (N) [facility] information [place] (04338) NEGATED no information (N) [facility] information [place] (83489) NEGATED no information (N) [facility] information [place] (80810) NEGATED no information (N) [facility] [place] (06890) NEGATED no information (H) [facility] [place] (87446) NEGATED no information (H) [facility] information [place] (31116) NEGATED no information (H) [facility] information [place] (50791) NEGATED no information (H) [facility] information [place] (15428) NEGATED no information (H) [facility] [place] (96787) NEGATED no information (N) [facility] [place] (23897) NEGATED no information (N) [facility] [place] (65531) NEGATED no information (N) [facility] [place] (91314) NEGATED no information (N) [facility] [place] (96848) NEGATED no information (no code) [facility] [place] (96574) NEGATED no information (no code) [facility] [place] (55501) NEGATED no information (no code) [facility] [place] (61306) NEGATED no information (no code) [facility] [place] ([id number]) NEGATED no information (no code) [facility] [place] (87183) NEGATED no information (no code) [facility] [place] (59698) NEGATED no information (no code) [facility] [place] (14986) NEGATED no information (no code) [facility] [place] (85878) NEGATED no information (no code) [facility] [place] ([id number]) NEGATED no information (no code) [facility] [place] (68396) NEGATED no information (no code) [facility] [place] (74816) NEGATED no information (no code) [facility] [place] (94583) NEGATED no information (no code) [facility] [place] (69643) NEGATED no information (no code) [facility] [place] (77236) NEGATED no information (N) [facility] [place] ([id number]) NEGATED no information (N) [facility] [place] ([id number]) NEGATED no information (N) [facility] [place] ([id number]) NEGATED no information (N) [facility] [place] (48287) NEGATED no information (no code) [facility] [place] (46549) NEGATED no information (no code) [facility] [place] (67285) NEGATED no information (no code) [facility] [place] ([id number]) NEGATED no information (no code) [facility] [place] (52453) NEGATED no information (N) [facility] [place] ([id number]) NEGATED no information (H) [facility] [place] (73828) NEGATED no information (N) [facility] [place] ([id number]) NEGATED no information (no code) [facility] [place] (73790) NEGATED no information (no code) [facility] [place] ([id number]) NEGATED no information (N) [facility] [place] ([id number]) NEGATED no information (N) [facility] [place] ([id number]) NEGATED no information (L) [facility] [place] (11695) NEGATED no information (no code) [facility] [place] (85828) NEGATED no information (N) [facility] [place] (63952) NEGATED no information (N) Critical access hospital no [facility] ([id number]) NEGATED no information (no code) Critical access hospital no [facility] (30559) NEGATED no information (H) Critical access hospital no [facility] (96438) No panel information on 2017-05-11 Bacteria SEE NOTE (no code) Critical access hospital identified Cx [facility] (U) [facility] ([id number]) BLO tr-intact (no code) [facility] ([id number]) Exp date [id number] (no code) [facility] (01915) KET no information (no code) [facility] (34135) pH (Bld) 7.0 [pH] (no code) 7.38 - 7.42 [pH] [facility] (95673) Protein mass trace (no code) Critical access hospital conc (U) [facility] (70772) SG 1.020 (no code) [facility] (26358) URO 0.2 (no code) [facility] (74029) No panel information on 2017-04-20 KET no information (no code) no information Lot # [id number] (no code) no information pH (Bld) 5.5 [pH] (no code) 7.38 - 7.42 [pH] no infor mation Protein mass no information (no code) 0 - 20 mg/dL no infor mation conc (U) SG 1.010 (no code) no information URO 0.2 (no code) no information No panel information on 2017-04-18 Exp date 12/2018 (no code) no information Lot 9.7~9.3~0791 (no code) no information No panel information on 2017-01-07 NEGATED no information (L) 01-07-2017 Not Availab le no 08:01-0400 ([id number]) information vitamin d, 25-h on 2017-01-06 Calcidiol 14.5 ng/mL (no code) 20 - 50 ng/mL 01-06-2017 [facility] 13:00-0400 [facility] (62598) No panel information on 2016-09-15 Bacteria Note (no code) 09-15-2016 Not Available identified Cx 17:45-0400 ([id number]) Nom (U) No panel information on 2016-07-28 Bacteria Note (no code) 07-28-2016 Not Available identified Cx 19:15-0400 ([id number]) Nom (U) Vital Signs Vital Sign Value Interpretation Reference Date Time Care Prov ider Facility (Normalized) (Normalized) Range BMI (Body Mass 34.2 kg/m2 (no code) 15 - 25 kg/m2 03-04-2018 CHR ISTY Community Index) 13:00-[address] [place] [address] ([id number]) BMI (Body Mass 34.44 kg/m2 (no code) 15 - 25 kg/m2 02-22-2018 [facility] Community Index) 09:40-[address] [place] [address] (27560) BMI (Body Mass 34.2 kg/m2 (no code) 15 - 25 kg/m2 02-06-2018 DA [facility] Community Index) 18:15-[address] [place] [address] ([id number]) BMI (Body Mass 35.52 kg/m2 (no code) 15 - 25 kg/m2 12-13-2017 [facility] Community Index) 17:00-[address] [place] [address] ([id number]) BMI (Body Mass 35.77 kg/m2 (no code) 15 - 25 kg/m2 12-01-2017 NM KAYCE Community Index) 17:40-0400 [facility] [address] [place] [address] (21532) BMI (Body Mass 36.06 kg/m2 (no code) 15 - 25 kg/m2 11-01-2017 KR ISTIN Community Index) 13:00-0400 [place] [phone] ([id number]) BMI (Body Mass 36.5 kg/m2 (no code) 15 - 25 kg/m2 10-27-2017 NM KAYCEShefali SIMONY Community Index) 09:40-[address] [place] [address] (78477) BMI (Body Mass 36.38 kg/m2 (no code) 15 - 25 kg/m2 10-12-2017 B LESTER BERMUDEZNNAN Community Index) 10:40-0400 7[address] [facility] (51213) BMI (Body Mass 36.03 kg/m2 (no code) 15 - 25 kg/m2 08-19-2017 A KATELYN EATON Community Index) 17:050400 64393 [facility] (94877) BMI (Body Mass 35.74 kg/m2 (no code) 15 - 25 kg/m2 08-18-2017 M ICHELE HUIZAR Community Index) 16:40-0400 91128 [facility] (80404) BMI (Body Mass 36.28 kg/m2 (no code) 15 - 25 kg/m2 08-09-2017 M ICHELE HUIZAR Community Index) 12:200400 [address] [place] [address] (32151) BMI (Body Mass 36.32 kg/m2 (no code) 15 - 25 kg/m2 08-02-2017 M ICHELE HUIZAR Community Index) 09:200400 54456 [facility] (78281) BMI (Body Mass 36.36 kg/m2 (no code) 15 - 25 kg/m2 06-17-2017 M ICHELE HUIZAR Community Index) 15:400400 02407 [facility] (48893) BMI (Body Mass 36.56 kg/m2 (no code) 15 - 25 kg/m2 04-18-2017 M ICHELE HUIZAR Community Index) 14:40-[address] [place] [address] (28148) BMI (Body Mass 37.23 kg/m2 (no code) 15 - 25 kg/m2 03-28-2017 M ICHELE HUIZAR Community Index) 09:40-[address] [place] [address] (35831) BMI (Body Mass 36.83 kg/m2 (no code) 15 - 25 kg/m2 03-25-2017 [facility] Community Index) 15:35-0500 [facility] [id number] [place] [address] (59857) BMI (Body Mass 36.39 kg/m2 (no code) 15 - 25 kg/m2 03-17-2017 M [facility] Community Index) 14:00-0500 28430 [facility] (25145) BMI (Body Mass 36.69 kg/m2 (no code) 15 - 25 kg/m2 02-28-2017 M [facility] Community Index) 12:10-[address] [place] [address] (60389) BMI (Body Mass 37.13 kg/m2 (no code) 15 - 25 kg/m2 02-24-2017 KEEGAN VLADIE CASE Community Index) 14:55-[id number] [place] [address] (72519) BMI (Body Mass 36.65 kg/m2 (no code) 15 - 25 kg/m2 02-05-2017 M [facility] Community Index) 14:55-[address] [place] [address] (37405) BMI (Body Mass 37.13 kg/m2 (no code) 15 - 25 kg/m2 01-24-2017 M [facility] Community Index) 16:40-[address] [place] [address] (85319) BMI (Body Mass 37.34 kg/m2 (no code) 15 - 25 kg/m2 01-22-2017 KR ISTIN Community Index) 16:10-0400 [place] [phone] [facility] (70883) Body 98 [degF] (no code) 97.8 - 99.0 03-04-2018 JONO Critical access hospital Temperature [degF] 13:00-[address] [place] [address] nter [facility] (53476) Body 97.9 [degF] (no code) 97.8 - 99.0 02-22-2018 [place] KIN G Community Temperature [degF] 09:40-0500 75223 [facility] (54709) Body 98.3 [degF] (no code) 97.8 - 99.0 02-06-2018 [facility] Community Temperature [degF] 18:15-[address] [place], [place] [address]e [facility] (24352) Body 97.2 [degF] (no code) 97.8 - 99.0 12-13-2017 [place] KIN G Community Temperature [degF] 17:00-0400 10108 [facility] (73208) Body 97.9 [degF] (no code) 97.8 - 99.0 12-01-2017 SOTERO Community Temperature [degF] 17:40-0400 [facility] [address] [facility] [address] [facility] (48960) Body 98.6 [degF] (no code) 97.8 - 99.0 11-01-2017 STELLA Community Temperature [degF] 13:00-0400 [facility] [place] [address] [facility] (13366) Body 98 [degF] (no code) 97.8 - 99.0 10-27-2017 SOTEROBE SIMON Y Community Temperature [degF] 09:40-0400 22157 [facility] (84708) Body 98.1 [degF] (no code) 97.8 - 99.0 10-12-2017 MAYCOL VERA Community Temperature [degF] 10:40-0400 67542 [facility] (72262) Body 97.8 [degF] (no code) 97.8 - 99.0 08-19-2017 NABIL EAT ON Community Temperature [degF] 17:05-0400 89911 [facility] (40885) Body 98.6 [degF] (no code) 97.8 - 99.0 08-18-2017 SOTERO SNYDER ALMAS Community Temperature [degF] 16:40-0400 89019 [facility] (43968) Body 97.7 [degF] (no code) 97.8 - 99.0 08-09-2017 SOTERO CA ALMAS Community Temperature [degF] 12:20-0400 64465 [facility] (89287) Body 97.4 [degF] (no code) 97.8 - 99.0 08-02-2017 SOTERO CA ALMAS Community Temperature [degF] 09:20-0400 46764 [facility] (31717) Body 97.2 [degF] (no code) 97.8 - 99.0 06-17-2017 SOTERO SNYDER ALMAS [facility] Temperature [degF] 15:40-0400 47219 [facility] (23530) Body 98 [degF] (no code) 97.8 - 99.0 04-18-2017 S[facility]ERO [facility] Community Temperature [degF] 14:40-0500 96462 [facility] (00331) Body 98.1 [degF] (no code) 97.8 - 99.0 03-28-2017 SOTERO SNYDER ALMAS [facility] Temperature [degF] 09:40-0500 48800 [facility] (54784) Body 97.9 [degF] (no code) 97.8 - 99.0 03-25-2017 [facility] Temperature [degF] 15:35-0500 [facility] [address] [facility] (45568) Body 98.3 [degF] (no code) 97.8 - 99.0 03-17-2017 SOTERO SNYDER ALMAS [facility] Temperature [degF] 14:00-0500 42342 [facility] (34149) Body 97.4 [degF] (no code) 97.8 - 99.0 02-28-2017 [facility]ERO [facility] Temperature [degF] 12:10-0500 08655 [facility] (74866) Body 97.8 [degF] (no code) 97.8 - 99.0 02-24-2017 [facility] Temperature [degF] 14:55-[address] [facility] (99015) Body 97.9 [degF] (no code) 97.8 - 99.0 01-24-2017 SOTERO CA ALMAS [facility] Temperature [degF] 16:40-0500 38846 [facility] (41638) Body 98.3 [degF] (no code) 97.8 - 99.0 01-22-2017 [facility] [degF] 16:10-0400 [facility] [address] [facility] (62942) Height 157.48 cm (no code) cm 03-04-2018 JONO Commu nity 13:00-0500 SANDRA [address] [facility] (08643) Height 157.48 cm (no code) cm 02-22-2018 CHESTER Luz mmunity 09:40-0500 44625 [facility] (75617) Height 157.48 cm (no code) cm 02-06-2018 ZEYAD CRAWFORD Community 18:15-[id number] [place] [address] (93411) Height 157.48 cm (no code) cm 12-13-2017 CHESTER Luz mmunity 17:00-[address] [place] [address] (68385) Height 157.48 cm (no code) cm 12-01-2017 SOTERO Commu nity 17:40-[address] (12867) Height 157.48 cm (no code) cm 11-01-2017 STELLA Commu nity 13:00-0400 [place] [phone] of [facility] (28671) Height 157.48 cm (no code) cm 10-27-2017 SOTEROBE HUIZAR [facility] 09:40-[address] [place] [address] (16428) Height 157.48 cm (no code) cm 10-12-2017 MAYCOL COPPOLA Community 10:40-[id number] [place] [address] (53996) Height 157.48 cm (no code) cm 08-19-2017 NABIL [facility] 17:050400 07221 [facility] (57494) Height 157.48 cm (no code) cm 08-18-2017 SOTEROBE HUIZAR Community 16:40-0400 62437 [facility] (30022) Height 157.48 cm (no code) cm 08-09-2017 SOTEROBE HUIZAR [facility] 12:20-[id number] [place] [address] (56944) Height 157.48 cm (no code) cm 08-02-2017 SOTEROBE HUIZAR [facility] 09:20-[address] [place] [address] (22411) Height 157.48 cm (no code) cm 06-17-2017 [facility]ERO [facility] 15:40-[address] [place] [address] (40777) Height 157.48 cm (no code) cm 04-18-2017 SOTERO [facility] 14:40-[address] [place] [address] (78226) Height 157.48 cm (no code) cm 03-28-2017 SOTERO [facility] 09:40-[address] [place] [address] (38277) Height 157.48 cm (no code) cm 03-25-2017 TRACY Epperson nitmila 15:35-[address] (04815) Height 157.48 cm (no code) cm 03-17-2017 SOTERO [facility] 14:00-[address] [place] [address] (30498) Height 157.48 cm (no code) cm 02-28-2017 SOTERO [facility] 12:10-[address] [place] [address] (30991) Height 157.48 cm (no code) cm 02-24-2017 TAN lares 14:55-[address] [place] [address] (59242) Height 157.48 cm (no code) cm 02-05-2017 SOTERO [facility] 14:55-[address] [place] [address] (85979) Height 157.48 cm (no code) cm 01-24-2017 SOTERO [facility] 16:40-[address] [place] [address] (84379) Height 157.48 cm (no code) cm 01-22-2017 STELLA mejia 16:10-0400 [place] [phone] [place] [address] (74361) Pulse Oximetry 94 % (no code) 95 - 100 % 10-12-2017 MAYCOL Sudhakar BRAVOONEL [facility] 10:40-[address] [place] [address] (72689) Pulse Oximetry 96 % (no code) 95 - 100 % 04-18-2017 SOTERO HUIZAR [facility] 14:40-[id number] [place] [address] (70797) Pulse Oximetry 94 % (no code) 95 - 100 % 03-28-2017 SOTERO HUIZAR [facility] 09:40-[address] [place] [address] (90709) Pulse Oximetry 0 % (no code) 95 - 100 % 02-28-2017 SOTERO HUIZAR [facility] 12:100[address] [place] [address] (55962) Weight 84.82 kg (no code) kg 03-04-2018 JONO Commun ity 13:00-[address] [place] [address] (30702) Weight 85.41 kg (no code) kg 02-22-2018 [place] JOYCE Com munity 09:400500 [address] [place] [address] (12658) Weight 84.82 kg (no code) kg 02-06-2018 ZEYAD CRAWFORD Martha ommunity 18:150500 [address] [place] [address] (08111) Weight 88.09 kg (no code) kg 12-13-2017 CHESTER JOYCE Com munity 17:00-[id number] [place] [address] (83625) Weight 88.72 kg (no code) kg 12-01-2017 SOTERO [facility] ity 17:40-[address] (55431) Weight 89.45 kg (no code) kg 11-01-2017 STELLA [facility] ity 13:000400 [place] [id number] [place] [address] (81407) Weight 90.54 kg (no code) kg 10-27-2017 SOTEROBE SIMONY ommunity 09:40-[id number] [place] [address] (65919) Weight 90.22 kg (no code) kg 10-12-2017 MAYCOL COPPOLA [facility] 10:40-[address] [place] [address] (38528) Weight 89.36 kg (no code) kg 08-19-2017 NABIL Luz mmunity 17:050[address] [place] [address] (22744) Weight 88.63 kg (no code) kg 08-18-2017 SOTERO HUIZAR C ommunity 16:40-[address] [place] [address] (15713) Weight 89.99 kg (no code) kg 08-09-2017 SOTERO HUIZAR C ommunity 12:200400 [address] [place] [address] (53556) Weight 90.08 kg (no code) kg 08-02-2017 SOTERO HUIZAR C ommunity 09:200400 [address] [place] [address] (27631) Weight 90.18 kg (no code) kg 06-17-2017 SOTERO HUIZAR C ommunity 15:40-[address] [place] [address] (41322) Weight 90.67 kg (no code) kg 04-18-2017 SOTERO HUIZAR C ommunity 14:400500 [address] [place] [address] (24615) Weight 92.35 kg (no code) kg 03-28-2017 SOTERO HUIZAR C ommunity 09:400500 [address] [place] [address] (45973) Weight 91.36 kg (no code) kg 03-25-2017 TRACY Alejandro ity 15:35-[address] (46178) Weight 90.27 kg (no code) kg 03-17-2017 SOTERO HUIZAR C ommunity 14:000500 [address] [place] [address] (00983) Weight 90.99 kg (no code) kg 02-28-2017 SOTERO HUIZAR C ommunity 12:100500 [address] [place] [address] (50990) Weight 92.08 kg (no code) kg 02-24-2017 TAN Epperson nitmila 14:55-[address] [place] [address] (14914) Weight 90.9 kg (no code) kg 02-05-2017 SOTERO HUIZAR C ommunity 14:55-[address] [place] [address] (40145) Weight 92.08 kg (no code) kg 01-24-2017 SOTERO HUIZAR C ommunity 16:40-[address] [place], [place] [address]s (37980) Weight 92.63 kg (no code) kg 01-22-2017 STELLA Alejandro ity 16:10-0400 [facility] [phone] [facility] (27399) Interventions No Information Plan of Treatment Normalized Care Care Detail Care Activity Date Care Provider F acility Activity (CHM) [facility] 03-17-2018 - [place] [address] [facility] 03-17-2018 - [facility] 03-17-2018 [place] (47327) (CH) [facility] 07-28-2018 [facility] 6 6762 [facility] (95058) (PSY-FU-) [facility] 01-05-2018 - SOTERO [facility] Critical access hospital Psychiatry F/U 20 [facility] 01-05-2018 - [id number] [place] [address] 01-05-2018 [place] (60784) [facility] 05-11-2019 - JONO FLORES [facility] 05-11-2019 - [id number] [place] [address] 05-11-2019 [place] ([id number]) Follow-up encounter [facility] 02-22-2018 - ZEYAD CRAWFORD [id number] [place] [address] 02-22-2018 - [facility] 02-22-2018 [place] ([id number]) Goals No Information Social History No Information Functional Status The data below is from unstructured sources Query Response Date Job rded Patient Orientation Person Place Time Situation May 22, 2015 2:00pm Comprehension Ability Understands Co ncepts May 22, 2015 2:00pm Query Response Date Job rded Patient Orientation Person Place Time Situation September 12, 2015 9:50pm Comprehension Ability Understands Co ncepts September 12, 2015 9:50pm Query Response Date Job rded Patient Orientation Place Time March 29, 2015 12:22am Comprehension Ability Understands Co ncepts March 29, 2015 12:22am Query Response Date Job rded Patient Orientation Person Place Time Situation September 10, 2015 1:47am Comprehension Ability Understands Co ncepts September 10, 2015 1:47am Query Response Date Job rded Patient Orientation Person Place Time Situation May 19, 2014 9:54am Comprehension Ability Understands Co ncepts May 19, 2014 9:54am Query Response Date Job rded Patient Orientation Person Place Time Situation July 18, 2014 11:34am Comprehension Ability Understands Co ncepts July 18, 2014 11:34am Query Response Date Job rded Patient Orientation Person Place Time Situation September 28, 2013 4:01pm Comprehension Ability Understands Co ncepts September 28, 2013 10:36am Query Response Date Job rded Comprehension Ability Understands Co ncepts March 12, 2017 12:35pm Query Response Date Job rded Comprehension Ability Understands Co ncepts August 16, 2017 8:50pm Mental Status No Information Encounters Encounter Normalized Encounter Encounter Diagnosis Care Provi slava Organization Date Type 12-13-2017 (ACUTE) Acute Visit Diarrhea, unspecified [facility]STERLACEY SANTIAGO (no phone) [facility] - (no phone) 12-13-2017 - 12-13-2017 07-28-2018 ([facility]) Chronic Health Type 2 diabetes [place] JOYCE (n o phone) [facility] - Maintenance mellitus with (no phone) 07-28-2018 hyperglycemia - 07-28-2018 06-28-2018 ([facility]) Chronic Health Type 2 diabetes [place] JOYCE (n o phone) [facility] - Maintenance mellitus with (no phone) 06-28-2018 hyperglycemia - 06-28-2018 03-17-2018 ([facility]) Chronic Health Type 2 diabetes [place] JOYCE (n o phone) [facility] - Maintenance mellitus with (no phone) 03-17-2018 hyperglycemia - 03-17-2018 11-14-2017 ([facility]) Chronic Health no information SOTERO HUIZAR ( no [facility] - Maintenance phone) (no phone) 11-14-2017 - 11-14-2017 10-27-2017 ([facility]) Chronic Health Patient's other SOTERO HUIZAR (no [facility] - Maintenance noncompliance with phone) SOTERO BOOTHE (no phone) 10-27-2017 medication regimen (no phone) SOTERO Stewart (no phone) 10-27-2017 01-03-2018 (IPT) Internal PCP Enterocolitis due to [place] ISIAH (no phone) [facility] - Transfer Clostridium difficile, (no ph one) 01-03-2018 not specified as - recurrent 01-03-2018 12-14-2017 (PSY-INTAKE) Panic disorder ZENOBIAGINA CURIEL (no phone) [facility] - Psychiatry Intake [episodic paroxysmal (no p alvaro) 12-14-2017 anxiety] - 12-14-2017 05-05-2018 (SD) Same Day Gastro-esophageal [place] (no joni ne) [facility] - reflux disease without (no phone) 05-05-2018 esophagitis - 05-05-2018 04-26-2018 (SD) Same Day Bronchitis, not JOSE DELGADO (no [facility] - specified as acute or phone) (no phon e) 04-26-2018 chronic - 04-26-2018 03-08-2018 (SD) Same Day Acute nasopharyngitis RENO SABRINA (n o [facility] - [common cold] phone) (no phone) 03-08-2018 - 03-08-2018 01-31-2018 (SD) Same Day Bronchitis, not [place] (no phone ) [facility] - specified as acute or (no phone) 01-31-2018 chronic - 01-31-2018 10-12-2017 (SD) Same Day Cutaneous abscess, MAYCOL ABDON (no [facility] - unspecified phone) (no phone) 10-12-2017 - 10-12-2017 06-14-2018 (WALK-IN) Walk-In Care Dysuria JONO FLORES (no [facility] - phone) CARE (no phone) 06-14-2018 - 06-14-2018 05-28-2018 (WALK-IN) Walk-In Care Acute cystitis with ZEYAD TO RCHIA (no [facility] - hematuria phone) CARE (no phone) 05-28-2018 - 05-28-2018 05-12-2018 (WALK-IN) Walk-In Care Acute pharyngitis, ZEYAD REYNOLDS (no [facility] - unspecified phone) CARE (no phone) 05-12-2018 - 05-12-2018 04-20-2018 (WALK-IN) Walk-In Care Acute upper JONO FLORES (no [facility] - respiratory infection, phone) CARE (n o phone) 04-20-2018 unspecified - 04-20-2018 03-04-2018 (WALK-IN) Walk-In Care Dysuria JONO FLORES (no [facility] - phone) CARE (no phone) 03-04-2018 - 03-04-2018 02-06-2018 (WALK-IN) [facility] Candidal stomatitis ZEYAD TO RCHIA (no [facility] - phone) CARE (no phone) 02-06-2018 - 02-06-2018 11-01-2017 (WALK-IN) [facility] Dysuria STELLAFROYLAN HINDS (no [facility] - phone) STELLA CARE (no phone) 11-01-2017 Harry (no phone) - STELLA HINDS (no 11-01-2017 phone) STELLA Shi (no phone) STELLA Shi (no phone) 04-14-2019 [facility] Simple chronic KATIA SAUNDERS ( no [facility] bronchitis phone) CARE (no phone ) 04-14-2019 - 04-14-2019 04-02-2019 [facility] Bronchitis, not KATIA SAUNDERS (no [facility] specified as acute or phone) CARE (no phone) 04-02-2019 chronic - 04-02-2019 03-06-2019 [facility] Acute sinusitis, KATIA SAUNDERS (no [facility] unspecified phone) CARE (no phone ) 03-06-2019 - 03-06-2019 02-22-2019 [facility] Acute upper JONO FLORES (n o [facility] respiratory infection, phone) CAR E (no phone) 02-22-2019 unspecified - 02-22-2019 01-30-2019 [facility] Dysuria KATIA SAUNDERS (no [facility] phone) CARE (no phone) 01-30-2019 - 01-30-2019 01-02-2019 [facility] Dysuria KATIA SAUNDERS (no [facility] phone) CARE (no phone) 01-02-2019 - 01-02-2019 12-07-2018 [facility] Encounter for CHESTER JOYCE (no p alvaro) [facility] immunization CARE (no phone) 12-07-2018 - 12-07-2018 09-25-2018 [facility] Local infection of the ZEYAD TO RCHIA (no [facility] skin and subcutaneous phone) CARE (no phone) 09-25-2018 tissue, unspecified - 09-25-2018 11-01-2017 [facility] no information STELLA HINDS (no [facility] phone) STELLA SIMON (no phone) 11-01-2017 Harry (no phone) - STELLA HINDS (no 11-01-2017 phone) STELLA dohertyCOKELSEYINS (no phone) STELLA MackINS (no phone) 03-20-2019 [facility] Type 2 diabetes CHESTER JOYCE ( no phone) [facility] - mellitus with (no phone) 03-20-2019 hyperglycemia - 03-20-2019 02-14-2019 [facility] no information CHESTER JOYCE (n o phone) [facility] - (no phone) 02-14-2019 - 02-14-2019 12-15-2018 [facility] Type 2 diabetes CHESTER JOYCE ( no phone) [facility] - mellitus with (no phone) 12-15-2018 unspecified - complications 12-15-2018 10-27-2017 [facility] no information SOTERO HUIZAR (no [facility] - phone) SOTERO kellyzCAREY (no phone) 10-27-2017 (no phone) SOTERO - zzCAREY (no phone) 10-27-2017 10-25-2017 [facility] no information SOTERO HUIZAR (no [facility] - phone) SOTERO zzCAREY (no phone) 10-25-2017 (no phone) SOTERO - zzCAREY (no phone) 10-25-2017 10-10-2017 [facility] no information SOTERO HUIZAR (no [facility] - phone) SOTERO Stewart (no phone) 10-10-2017 (no phone) SOTERO Stewart (no phone) 10-10-2017 10-06-2017 [facility] Type 2 diabetes SOTERO HUIZAR (no [facility] - mellitus with phone) SOTERO Stewart (no joni ne) 10-06-2017 unspecified (no phone) SOTERO - complications Pat (no phone) 10-06-2017 09-23-2017 [facility] Generalized anxiety SOTERO HIDALGO (no [facility] - disorder phone) SOTERO Stewart (no joni ne) 09-23-2017 (no phone) SOTERO Stewart (no phone) 09-23-2017 04-24-2019 Emergency department no information no name (no joni ne) no organization name - patient visit (no phone) 04-24-2019 03-18-2018 Emergency department no information AKBAR JOHNSON no organization name - patient visit Work Phone: (no phone) 03-18-2018 03-13-2018 Emergency department no information THELMA BUCK no organization name - patient visit Work Phone: (no phone) 03-13-2018 THELMA FARAH 02-24-2018 Emergency department no information RENY BERNOT ( no no organization name - patient visit phone) RENY BERNOT (no phone ) 02-24-2018 (no phone) RENY BERNOT (no phone) 02-02-2018 Emergency department no information [place]NA CL[facility] Work no organization name - patient visit (no phone ) 02-02-2018 [place]NA QUINN 02-02-2018 Emergency department no information no name (no joni ne) no organization name - patient visit (no phone) 02-02-2018 01-23-2018 Emergency department no information RENY BERNOT ( no no organization name - patient visit phone) RENY BERNOT (no phone ) 01-23-2018 (no phone) 12-07-2017 Emergency department no information MAGDA mcnally no organization name - patient visit (no phone ) 12-07-2017 11-24-2017 Emergency department no information THELMA Blank APRN BA HEBER no organization name - patient visit Work Phone: (no phone) 11-24-2017 11-04-2017 Emergency department no information BILLY GOLD Work no organization name - patient visit (no phone ) 11-04-2017 09-15-2017 Emergency department no information no name (no joni ne) no organization name - patient visit (no phone) 09-15-2017 08-16-2017 Emergency department no information THELMA Blank APRN BA HEBER no organization name - patient visit Work Phone: (no phone) 08-16-2017 04-16-2017 Emergency department no information no name (no joni ne) no organization name - patient visit (no phone) 04-17-2017 11-09-2016 Emergency department no information no name (no joni ne) no organization name - patient visit (no phone) 11-10-2016 05-23-2015 Emergency department no information no name (no joni ne) no organization name - patient visit (no phone) 05-24-2015 05-11-2014 Emergency department no information no name (no joni ne) no organization name - patient visit (no phone) 05-11-2014 12-14-2013 Emergency department no information no name (no joni ne) no organization name - patient visit (no phone) 12-14-2013 10-08-2011 Emergency department no information no name (no joni ne) no organization name - patient visit (no phone) 10-09-2011 07-10-2018 Encounter by computer Essential (primary) CHESTER SANTIAGO (no phone) [facility] - link hypertension (no phone) 07-10-2018 - 07-10-2018 02-22-2018 Follow-up encounter Bronchitis, not CHESTER ISIAH (no phone) [facility] - specified as acute or (no phone) 02-22-2018 chronic - 02-22-2018 12-01-2017 Follow-up encounter Acute cystitis with SOTERO BOOTHE (no [facility] - hematuria phone) SOTERO Stewart (no joni ne) 12-01-2017 (no phone) SOTERO Zaki Stewart (no phone) 12-01-2017 11-10-2017 Follow-up encounter no information SOTERO HUIZAR (n o [facility] - phone) (no phone) 11-10-2017 - 11-10-2017 12-21-2018 Nursing evaluation of Type 2 diabetes CHESTER ISIAH ( no phone) [facility] - patient and report mellitus with (no phone) 12-21-2018 unspecified - complications 12-21-2018 11-29-2018 Nursing evaluation of no information CHESTER ISIAH (n o phone) [facility] - patient and report (no phone) 11-29-2018 - 11-29-2018 11-28-2018 Nursing evaluation of no information CHESTER ISIAH (n o phone) [facility] - patient and report (no phone) 11-28-2018 - 11-28-2018 11-27-2018 Nursing evaluation of no information CHESTER ISIAH (n o phone) [facility] - patient and report (no phone) 11-27-2018 - 11-27-2018 11-26-2018 Nursing evaluation of no information [facility] ISIAH [facility]n o phone[facility] report CARE (no phone) 11-26-2018 - 11-26-2018 11-25-2018 Nursing evaluation of Encounter for CHESTER ISIAH (no phone) [facility] and report examination of blood CARE (no phone) 11-25-2018 pressure without - abnormal findings 11-25-2018 11-24-2018 Nursing evaluation of no information CHESTER ISIAH (n o phone) [facility] - patient and report (no phone) 11-24-2018 - 11-24-2018 11-23-2018 Nursing evaluation of no information CHESTER ISIAH (n o phone) [facility] - patient and report (no phone) 11-23-2018 - 11-23-2018 11-17-2018 Nursing evaluation of no information CHESTER ISIAH (n o phone) [facility] - patient and report (no phone) 11-17-2018 - 11-17-2018 01-27-2018 Patient encounter no information SILVIA SPENCER Work no organization name (no phone) SILVIA SPENCER 01-23-2018 Patient encounter no information no name (no phone) no organization name (no phone) 12-07-2017 Patient encounter no information no name (no phone) no organization name (no phone) 12-05-2017 Patient encounter no information SOTERO Beckham APRN CAR EY no organization name Work Phone: (no phone) 12-01-2017 Patient encounter no information no name (no phone) no organization name (no phone) 11-04-2017 Patient encounter no information no name (no phone) no organization name (no phone) 11-01-2017 Patient encounter no information no name (no phone) no organization name (no phone) 10-31-2017 Patient encounter no information YUKO Cerda k no organization name (no phone) 10-27-2017 Patient encounter no information no name (no phone) no organization name (no phone) 10-19-2017 Patient encounter no information MIRLELA Meehan APRN no organization name [facility] Work Phone: (no phone) 10-12-2017 Patient encounter no information no name (no phone) no organization name (no phone) 09-30-2017 Patient encounter no information no name (no phone) no organization name (no phone) 09-23-2017 Patient encounter no information no name (no phone) no organization name (no phone) NEGATED Patient encounter no information no name (no phone) no organization name 09-12-2017 (no phone) 08-26-2017 Patient encounter no information no name (no phone) no organization name (no phone) 08-19-2017 Patient encounter no information no name (no phone) no organization name (no phone) NEGATED Patient encounter no information no name (no phone) no organization name 08-18-2017 (no phone) 08-16-2017 Patient encounter no information no name (no phone) no organization name (no phone) 08-09-2017 Patient encounter no information no name (no phone) no organization name (no phone) 08-02-2017 Patient encounter no information no name (no phone) no organization name (no phone) 07-05-2017 Patient encounter no information no name (no phone) no organization name (no phone) 06-23-2017 Patient encounter no information no name (no phone) no organization name (no phone) 06-23-2017 Patient encounter no information no name (no phone) no organization name (no phone) NEGATED Patient encounter no information no name (no phone) no organization name 06-17-2017 (no phone) 05-11-2017 Patient encounter no information no name (no phone) no organization name (no phone) 04-27-2017 Patient encounter no information no name (no phone) no organization name (no phone) 04-20-2017 Patient encounter no information no name (no phone) no organization name (no phone) 04-18-2017 Patient encounter no information no name (no phone) no organization name (no phone) 04-16-2017 Patient encounter no information no name (no phone) no organization name (no phone) 04-05-2017 Patient encounter no information no name (no phone) no organization name (no phone) NEGATED Patient encounter no information no name (no phone) no organization name 03-28-2017 (no phone) 03-21-2017 Patient encounter no information no name (no phone) no organization name (no phone) 03-12-2017 Patient encounter no information no name (no phone) no organization name (no phone) 02-28-2017 Patient encounter no information no name (no phone) no organization name (no phone) 11-09-2016 Patient encounter no information no name (no phone) no organization name (no phone) 07-02-2016 Patient encounter no information no name (no phone) no organization name (no phone) 06-29-2016 Patient encounter no information no name (no phone) no organization name - (no phone) 09-12-2016 12-18-2015 Patient encounter no information no name (no phone) no organization name - (no phone) 03-17-2016 09-18-2015 Patient encounter no information no name (no phone) no organization name - (no phone) 10-29-2015 03-24-2015 Patient encounter no information no name (no phone) no organization name (no phone) 01-15-2015 Patient encounter no information no name (no phone) no organization name (no phone) 12-23-2014 Patient encounter no information no name (no phone) no organization name - (no phone) 03-23-2015 08-27-2014 Patient encounter no information no name (no phone) no organization name (no phone) 08-26-2014 Patient encounter no information no name (no phone) no organization name (no phone) 07-25-2014 Patient encounter no information no name (no phone) no organization name - (no phone) 10-23-2014 06-17-2014 Patient encounter no information no name (no phone) no organization name (no phone) 02-13-2014 Patient encounter no information no name (no phone) no organization name - (no phone) 03-29-2014 01-24-2014 Patient encounter no information no name (no phone) no organization name - (no phone) 04-24-2014 01-10-2014 Patient encounter no information no name (no phone) no organization name - (no phone) 01-14-2014 10-25-2013 Patient encounter no information no name (no phone) no organization name - (no phone) 01-09-2014 10-04-2013 Patient encounter no information no name (no phone) no organization name (no phone) 09-15-2013 Patient encounter no information no name (no phone) no organization name - (no phone) 09-18-2013 07-03-2013 Patient encounter no information no name (no phone) no organization name (no phone) 06-20-2013 Patient encounter no information no name (no phone) no organization name (no phone) 06-08-2013 Patient encounter no information no name (no phone) no organization name (no phone) 05-17-2013 Patient encounter no information no name (no phone) no organization name (no phone) 05-17-2013 Patient encounter no information no name (no phone) no organization name (no phone) 10-31-2012 Patient encounter no information no name (no phone) no organization name (no phone) 09-04-2012 Patient encounter no information no name (no phone) no organization name (no phone) 07-18-2012 Patient encounter no information no name (no phone) no organization name (no phone) Patient encounter no information no name (no phone) no organ ization name (no phone) 05-06-2019 Patient encounter no information CHESTER JOYCE (no [facility] phone) [facility] (no phone) 05-02-2019 Patient encounter no information JOSE G STOVALL [facility] [address] tirado MD (no phone) [facility] 05-03-2019 (no phone) 04-30-2019 Patient encounter no information JOSE G Small WILJONATHAN [facility] [address] - procedure (no phone) [facility] 04-30-2019 (no phone) 04-24-2019 Patient encounter no information BLAIR DANIELS DO (no [facility] [address] procedure phone) [facility] (no phone) 04-14-2019 Patient encounter no information no name (no phone) no organization name procedure (no phone) 03-26-2019 Patient encounter no information no name (no phone) no organization name procedure (no phone) 03-20-2019 Patient encounter no information (no phone) [facility] (no phone) 03-06-2019 Patient encounter no information no name (no phone) no organization name procedure (no phone) 02-14-2019 Patient encounter no information no name (no phone) no organization name procedure (no phone) 01-30-2019 Patient encounter no information no name (no phone) no organization name procedure (no phone) 01-02-2019 Patient encounter no information no name (no phone) no organization name procedure (no phone) 01-01-2019 Patient encounter Type 2 diabetes STEVAN NAI (no p alvaro) [facility] - procedure mellitus without (no phone) 01-01-2019 complications - 01-01-2019 12-15-2018 Patient encounter no information no name (no phone) no organization name procedure (no phone) 11-30-2018 Patient encounter no information no name (no phone) no organization name procedure (no phone) 11-28-2018 Patient encounter no information no name (no phone) no organization name procedure (no phone) 11-26-2018 Patient encounter no information no name (no phone) no organization name procedure (no phone) 11-25-2018 Patient encounter no information no name (no phone) no organization name procedure (no phone) 11-17-2018 Patient encounter no information no name (no phone) no organization name procedure (no phone) 11-01-2018 Patient encounter no information no name (no phone) no organization name procedure (no phone) 11-01-2018 Patient encounter no information no name (no phone) no organization name procedure (no phone) 09-25-2018 Patient encounter no information no name (no phone) no organization name procedure (no phone) 08-21-2018 Patient encounter no information no name (no phone) no organization name procedure (no phone) 08-17-2018 Patient encounter no information no name (no phone) no organization name - procedure (no phone) 08-17-2018 08-11-2018 Patient encounter no information ZACK GRIMALDO Work no organization name - procedure (no phone ) 08-11-2018 08-11-2018 Patient encounter no information no name (no phone) no organization name - procedure (no phone) 08-11-2018 07-28-2018 Patient encounter no information no name (no phone) no organization name procedure (no phone) 06-28-2018 Patient encounter no information no name (no phone) no organization name procedure (no phone) 06-14-2018 Patient encounter no information no name (no phone) no organization name procedure (no phone) 05-31-2018 Patient encounter no information no name (no phone) no organization name procedure (no phone) 05-28-2018 Patient encounter no information no name (no phone) no organization name procedure (no phone) 05-05-2018 Patient encounter no information no name (no phone) no organization name procedure (no phone) 04-20-2018 Patient encounter no information no name (no phone) no organization name procedure (no phone) 03-18-2018 Patient encounter no information no name (no phone) no organization name procedure (no phone) 03-18-2018 Patient encounter no information no name (no phone) no organization name procedure (no phone) 03-17-2018 Patient encounter no information no name (no phone) no organization name procedure (no phone) 03-13-2018 Patient encounter no information no name (no phone) no organization name procedure (no phone) 03-04-2018 Patient encounter no information no name (no phone) no organization name procedure (no phone) 02-24-2018 Patient encounter no information no name (no phone) no organization name procedure (no phone) 02-22-2018 Patient encounter no information no name (no phone) no organization name procedure (no phone) 02-06-2018 Patient encounter no information no name (no phone) no organization name procedure (no phone) 02-02-2018 Patient encounter no information no name (no phone) no organization name procedure (no phone) 01-31-2018 Patient encounter no information no name (no phone) no organization name procedure (no phone) 09-30-2017 Patient encounter no information no name (no phone) no organization name procedure (no phone) 12-20-2016 Patient encounter no information no name (no phone) no organization name - procedure (no phone) 03-20-2017 2016 Patient encounter no information no name (no phone) no organization name procedure (no phone) 08-16-2016 Patient encounter no information no name (no phone) no organization name procedure (no phone) 06-22-2016 Patient encounter no information no name (no phone) no organization name procedure (no phone) 06-14-2016 Patient encounter no information no name (no phone) no organization name procedure (no phone) 03-18-2016 Patient encounter no information no name (no phone) no organization name procedure (no phone) 07-24-2015 Patient encounter no information no name (no phone) no organization name procedure (no phone) 12-02-2014 Patient encounter no information no name (no phone) no organization name - procedure (no phone) 12-18-2014 05-21-2013 Patient encounter no information no name (no phone) no organization name procedure (no phone) 02-02-2013 Patient encounter no information no name (no phone) no organization name - procedure (no phone) 02-23-2013 09-01-2012 Patient encounter no information no name (no phone) no organization name - procedure (no phone) 09-01-2012 06-26-2012 Patient encounter no information no name (no phone) no organization name procedure (no phone) 05-19-2012 Patient encounter no information no name (no phone) no organization name procedure (no phone) 04-20-2012 Patient encounter no information no name (no phone) no organization name procedure (no phone) 01-04-2012 Patient encounter no information no name (no phone) no organization name procedure (no phone) 12-31-2011 Patient encounter no information no name (no phone) no organization name procedure (no phone) 10-07-2011 Patient encounter no information no name (no phone) no organization name procedure (no phone) 07-26-2011 Patient encounter no information no name (no phone) no organization name procedure (no phone) 04-05-2011 Patient encounter no information no name (no phone) no organization name procedure (no phone) 02-03-2011 Patient encounter no information no name (no phone) no organization name procedure (no phone) 02-01-2011 Patient encounter no information no name (no phone) no organization name procedure (no phone) 12-08-2010 Patient encounter no information no name (no phone) no organization name procedure (no phone) 05-01-2019 Telephone encounter no information CEHSTER ISIAH (no phone) [facility] - (no phone) 05-01-2019 - 05-01-2019 04-25-2019 Telephone encounter no information CHETSER ISIAH (no phone) [facility] - (no phone) 04-25-2019 - 04-25-2019 04-24-2019 Telephone encounter no information CHESTER ISIAH (no phone) [facility] - (no phone) 04-24-2019 - 04-24-2019 04-11-2019 Telephone encounter no information CHESTER ISIAH (no phone) [facility] - (no phone) 04-11-2019 - 04-11-2019 04-10-2019 Telephone encounter no information CHESTER ISIAH (no phone) [facility] - (no phone) 04-10-2019 - 04-10-2019 04-04-2019 Telephone encounter no information CHESTER ISIAH (no phone) [facility] - (no phone) 04-04-2019 - 04-04-2019 04-02-2019 Telephone encounter Type 2 diabetes CHESTER ISIAH (no phone) [facility] - mellitus without (no phone) 04-02-2019 complications - 04-02-2019 03-26-2019 Telephone encounter no information CHESTER ISIAH (no phone) [facility] - (no phone) 03-26-2019 - 03-26-2019 03-22-2019 Telephone encounter no information STEVAN TRIMBLE (no phone) [facility] - CHESTER ISIAH (no phone) (no phone) 03-22-2019 - 03-22-2019 03-20-2019 Telephone encounter no information STEVAN TRIMBLE (no phone) [facility] - (no phone) 03-20-2019 - 03-20-2019 03-08-2019 Telephone encounter no information CHESTER ISIAH (no phone) [facility] - (no phone) 03-08-2019 - 03-08-2019 03-06-2019 Telephone encounter no information CHESTER ISIAH (no phone) [facility] - (no phone) 03-06-2019 - 03-06-2019 03-05-2019 Telephone encounter Essential (primary) CHESTER ISIAH (no phone) [facility] - hypertension (no phone) 03-05-2019 - 03-05-2019 02-28-2019 Telephone encounter Type 2 diabetes CHESTER ISIAH (no phone) [facility] - mellitus without (no phone) 02-28-2019 complications - 02-28-2019 02-19-2019 Telephone encounter Type 2 diabetes CHESTER ISIAH (no phone) [facility] - mellitus without (no phone) 02-19-2019 complications - 02-19-2019 02-12-2019 Telephone encounter no information CHESTER ISIAH (no phone) [facility] - (no phone) 02-12-2019 - 02-12-2019 02-08-2019 Telephone encounter no information CHESTER ISIAH (no phone) [facility] - (no phone) 02-08-2019 - 02-08-2019 02-01-2019 Telephone encounter no information KATIA KENNEDYLLANA ( no [facility] - phone) (no phone) 02-01-2019 - 02-01-2019 01-30-2019 Telephone encounter no information CHESTER ISIAH (no phone) [facility] - (no phone) 01-30-2019 - 01-30-2019 01-22-2019 Telephone encounter Type 2 diabetes CHESTER ISIAH (no phone) [facility] - mellitus with (no phone) 01-22-2019 hyperglycemia - 01-22-2019 01-10-2019 Telephone encounter no information [facility] (no phone) [facility] - (no phone) 01-10-2019 - 01-10-2019 01-08-2019 Telephone encounter no information [facility] (no phone) [facility] - (no phone) 01-08-2019 - 01-08-2019 01-05-2019 Telephone encounter no information [facility] (no phone) [facility] - (no phone) 01-05-2019 - 01-05-2019 01-01-2019 Telephone encounter Gastro-esophageal [facility] ( no phone) [facility] - reflux disease without (no phone) 01-01-2019 esophagitis - 01-01-2019 12-15-2018 Telephone encounter no information [facility] (no phone) [facility] - (no phone) 12-15-2018 - 12-15-2018 11-07-2018 Telephone encounter no information [facility] (no phone) [facility] - (no phone) 11-07-2018 - 11-07-2018 10-06-2018 Telephone encounter no information [facility] (no phone) [facility] - (no phone) 10-06-2018 - 10-06-2018 10-03-2018 Telephone encounter Type 2 diabetes [facility] (no phone) [facility] - mellitus with (no phone) 10-03-2018 hyperglycemia - 10-03-2018 10-02-2018 Telephone encounter Type 2 diabetes [facility] (no phone) [facility] (no - mellitus with phone) 10-02-2018 hyperglycemia - 10-02-2018 09-20-2018 Telephone encounter no information [facility] (no phone) [facility] - (no phone) 09-20-2018 - 09-20-2018 09-01-2018 Telephone encounter no information [facility] (no phone) [facility] - (no phone) 09-01-2018 - 09-01-2018 08-21-2018 Telephone encounter Type 2 diabetes [facility] (no phone) [facility] - mellitus with (no phone) 08-21-2018 hyperglycemia - 08-21-2018 08-07-2018 Telephone encounter no information [facility] (no phone) [facility] - (no phone) 08-07-2018 - 08-07-2018 07-27-2018 Telephone encounter Hypokalemia [facility] (no joni ne) [facility] - (no phone) 07-27-2018 - 07-27-2018 07-10-2018 Telephone encounter no information [facility] (no phone) [facility] - (no phone) 07-10-2018 - 07-10-2018 06-14-2018 Telephone encounter no information [facility] (no phone) [facility] - JONO FLORES (no (no phone) 06-14-2018 phone) - 06-14-2018 06-07-2018 Telephone encounter Essential (primary) [facility] (no phone) [facility] - hypertension (no phone) 06-07-2018 - 06-07-2018 06-06-2018 Telephone encounter Essential (primary) [facility] (no phone) [facility] - hypertension (no phone) 06-06-2018 - 06-06-2018 05-24-2018 Telephone encounter Type 2 diabetes [facility] (no phone) [facility] - mellitus with (no phone) 05-24-2018 hyperglycemia - 05-24-2018 05-18-2018 Telephone encounter Gastro-esophageal [facility] ( no phone) [facility] - reflux disease without (no phone) 05-18-2018 esophagitis - 05-18-2018 05-05-2018 Telephone encounter Unspecified sequelae [facility] (no phone) [facility] - of cerebral infarction (no phone) 05-05-2018 - 05-05-2018 04-24-2018 Telephone encounter no information [facility] (no phone) [facility] - (no phone) 04-24-2018 - 04-24-2018 04-19-2018 Telephone encounter Cough [facility] (no joni ne) [facility] - (no phone) 04-19-2018 - 04-19-2018 03-15-2018 Telephone encounter no information [facility] (no phone) [facility] - (no phone) 03-15-2018 - 03-15-2018 03-06-2018 Telephone encounter no information [facility] (no phone) [facility] - (no phone) 03-06-2018 - 03-06-2018 02-06-2018 Telephone encounter no information [facility] (no phone) [facility] - (no phone) 02-06-2018 - 02-06-2018 02-03-2018 Telephone encounter no information [facility] (no phone) [facility] - (no phone) 02-03-2018 - 02-03-2018 02-02-2018 Telephone encounter no information [facility] (no phone) [facility] - (no phone) 02-02-2018 - 02-02-2018 01-31-2018 Telephone encounter no information [facility] (no phone) [facility] - (no phone) 01-31-2018 - 01-31-2018 01-23-2018 Telephone encounter no information [facility] (no phone) [facility] - (no phone) 01-23-2018 - 01-23-2018 01-04-2018 Telephone encounter Hyperlipidemia, [facility] (no phone) [facility] - unspecified (no phone) 01-04-2018 - 01-04-2018 12-19-2017 Telephone encounter no information SOTERO Stewart (no [facility] - phone) (no phone) 12-19-2017 - 12-19-2017 12-16-2017 Telephone encounter Enterocolitis due to [facility] (no phone) [facility] - Clostridium difficile, (no phone) 12-16-2017 not specified as - recurrent 12-16-2017 12-07-2017 Telephone encounter no information SOTERO HUIZAR (n o [facility] - phone) SOTERO [facility] (no phone) 12-07-2017 (no phone) SOTERO dohertyCAREY (no phone) 12-07-2017 11-03-2017 Telephone encounter no information STELLA HINDS (no [facility] - phone) STELLA (no phone) 11-03-2017 zzCOLLANGELICA (no phone) - [facility]A HINDS (no 11-03-2017 phone) STELLA dohertyCOTENISHA (no phone) STELLA dohertyCOLLINS (no phone) 05-02-2019 no information Encounter for other no name (no phon e) no organization name preprocedural (no phone) examination no information Encounter for general no name (no phone) no o rganization name adult medical (no phone) examination without abnormal findings no information Encounter for other no name (no phone) no org anization name preprocedural (no phone) examination no information Encounter for no name (no phone) no organiza tion name examination of blood (no phone) pressure without abnormal findings Medical Equipment Equipment Code (if Equipment Original Equipment Identifier P rocedure Code (if Dates provided) Text (if provided) (if provided) provided) no information no information no information (no no information no information named assigning authority) no information TEST BLOOD SUGAR no information (no no informati on no information THREE TIMES A DAY named assigning E11.8 authority) no information as directed no information (no no information n o information named assigning authority) no information USE ONCE DAILY WITH no information (no no inform ation no information INSULIN PENS named assigning authority) no information TEST BLOOD SUGAR no information (no no informati on no information THREE TIMES A DAY named assigning E11.8 authority) no information as directed no information (no no information n o information named assigning authority) no information USE ONCE DAILY WITH no information (no no inform ation no information INSULIN PENS named assigning authority) no information TEST BLOOD SUGAR no information (no no informati on no information THREE TIMES A DAY named assigning E11.8 authority) no information as directed no information (no no information n o information named assigning authority) no information USE ONCE DAILY WITH no information (no no inform ation no information INSULIN PENS named assigning authority) no information TEST BLOOD SUGAR no information (no no informati on no information THREE TIMES A DAY named assigning E11.8 authority) no information as directed no information (no no information n o information named assigning authority) no information USE ONCE DAILY WITH no information (no no inform ation no information INSULIN PENS named assigning authority) no information TEST BLOOD SUGAR no information (no no informati on no information THREE TIMES A DAY named assigning E11.8 authority) no information as directed no information (no no information n o information named assigning authority) no information USE ONCE DAILY WITH no information (no no inform ation no information INSULIN PENS named assigning authority) no information TEST BLOOD SUGAR no information (no no informati on no information THREE TIMES A DAY named assigning E11.8 authority) no information as directed no information (no no information n o information named assigning authority) no information as directed no information (no no information n o information named assigning authority) Payers Normalized Payer Value Medicare [id number] ([id number]) History general Narrative - Reported Note Type Note Facility History general Narrative - Reported Type Medical diabetes mellitus History Medical hyperlipidemia History Medical hypertension History Medical Anxiety disorder History Medical Blood Clotting Disorder- Dr Gomez at [facility] History Medical Possible Anemia (currently under work up) - Dr Gomez [facility] History Medical irregular heart beat-tiffany garrett History Medical history of pancreatitis History Medical gerd History Medical History of CVA with residua l deficit History Medical Other complicated headache syndrome History Medical Stokes syndrome History Surgical tubal ligation History Surgical section History Surgical cholecystectomy History Surgical Toe Nail Removal x2 History Surgical hiatial hernia repair 08/21/2018 History Hospitaliz Brain Stem Strokes x5. Has been hospitalized at then transfered to [address] [place] [address]. History Hospitaliz Child ation History Hospitaliz abd pain and shakiness - [facility] ED [place] [id number] Summary Purpose eClinicalWorks SubmissioneClinicalWorks SubmissioneClinicalWorks SubmissioneClinicalWorks SubmissioneClinicalWorks SubmissioneClinicalWorks SubmissioneClinicalWorks SubmissioneClinicalWorks Submission Advance Directives Directive Response Recor ded Date/Time Advance Directives No 9:50pm Health Care Power of Service Agent No 09/12/15 9:50pm Organ Donor No 09/12/15 9:50pm Directive Response Recor ded Date/Time Advance Directives No 11:34am Health Care Power of Service Agent No 07/18/14 11:34am Organ Donor No 07/18/14 11:34am Directive Response Recor ded Date/Time Advance Directives No 10:15pm Health Care Power of Service Agent No 03/28/15 10:15pm Organ Donor No 03/28/15 10:15pm Directive Response Recor ded Date/Time Advance Directives No 9:50pm Health Care Power of Service Agent No 09/12/15 9:50pm Organ Donor No 09/12/15 9:50pm Resuscitation Status Full Code 09/12/15 9:50pm Directive Response Recor ded Date/Time Advance Directives No 10:15pm Health Care Power of Service Agent No 03/28/15 10:15pm Organ Donor No 03/28/15 10:15pm Resuscitation Status Full Code 03/28/15 10:15pm Directive Response Recor ded Date/Time Advance Directives No 1:44am Health Care Power of Service Agent No 09/10/15 1:44am Organ Donor No 09/10/15 1:44am Resuscitation Status Full Code 09/10/15 1:44am Directive Response Recor ded Date/Time Advance Directives No 11:16pm Health Care Power of Service Agent No 05/23/15 11:16pm Organ Donor No 05/23/15 11:16pm Directive Response Recor ded Date/Time Advance Directives No 3:00pm Health Care Power of Service Agent No 08/16/16 3:00pm Organ Donor No 08/16/16 3:00pm Resuscitation Status Full Code 08/16/16 3:00pm Directive Response Recor ded Date/Time Advance Directives No 9:48am Health Care Power of Service Agent No 05/19/14 9:48am Organ Donor No 05/19/14 9:48am Resuscitation Status Full Code 05/19/14 9:48am Directive Response Recor ded Date Advance Directives N 10:00am Health Care Power of Service Agent Y 09/01/12 10:00am Organ Donor N 09/01/12 1 0:00am Directive Response Recor ded Date/Time Advance Directives No 7:27pm Health Care Power of Service Agent No 12/14/13 7:27pm Organ Donor No 12/14/13 7:27pm Directive Response Recor ded Date/Time Advance Directives No 11:34am Health Care Power of Service Agent No 07/18/14 11:34am Organ Donor No 07/18/14 11:34am Resuscitation Status Full Code 07/18/14 11:34am Directive Response Recor ded Date/Time Advance Directives No 8:03pm Health Care Power of Service Agent No 05/11/14 8:03pm Organ Donor No 05/11/14 8:03pm Resuscitation Status Full Code 05/11/14 8:03pm Directive Response Recor ded Date/Time Advance Directives No 7:27pm Health Care Power of Service Agent No 12/14/13 7:27pm Organ Donor No 12/14/13 7:27pm Resuscitation Status Full Code 12/14/13 7:27pm Directive Response Recor ded Date/Time Advance Directives No 6:00pm Health Care Power of Service Agent No 09/24/13 6:00pm Organ Donor No 09/24/13 6:00pm Resuscitation Status Full Code 09/24/13 6:00pm Directive Response Recor ded Date/Time Advance Directives No 12:35pm Health Care Power of Service Agent No 03/12/17 12:35pm Organ Donor No 03/12/17 12:35pm Resuscitation Status Full Code 03/12/17 12:35pm Directive Response Recor ded Date/Time Advance Directives No 8:50pm Health Care Power of Service Agent No 08/16/17 8:50pm Organ Donor No 08/16/17 8:50pm Resuscitation Status Full Code 08/16/17 8:50pm Directive Response Recor ded Date/Time Advance Directives No 8:18am Health Care Power of Service Agent No 11/04/17 8:18am Organ Donor No 11/04/17 8:18am Resuscitation Status Full Code 11/04/17 8:18am Directive Response Recor ded Date/Time Advance Directives No 5:07pm Health Care Power of Service Agent No 12/07/17 5:07pm Organ Donor No 12/07/17 5:07pm Resuscitation Status Full Code 12/07/17 5:07pm Directive Response Recor ded Date/Time Advance Directives No 4:02pm Health Care Power of Service Agent No 01/23/18 4:02pm Organ Donor No 01/23/18 4:02pm Resuscitation Status Full Code 01/23/18 4:02pm Directive Response Recor ded Date/Time Advance Directives No 7:53pm Health Care Power of Service Agent No 02/02/18 7:53pm Organ Donor No 02/02/18 7:53pm Resuscitation Status Full Code 02/02/18 7:53pm Directive Response Recor ded Date/Time Advance Directives No 9:54pm Health Care Power of Service Agent No 02/24/18 9:54pm Organ Donor No 02/24/18 9:54pm Resuscitation Status Full Code 02/24/18 9:54pm Directive Response Recor ded Date/Time Advance Directives No 9:00am Health Care Power of Service Agent No 03/18/18 9:00am Organ Donor No 03/18/18 9:00am Resuscitation Status Full Code 03/18/18 9:00am Directive Response Recor ded Date/Time Advance Directives No 12:14pm Health Care Power of Service Agent No 03/13/18 12:14pm Organ Donor No 03/13/18 12:14pm Resuscitation Status Full Code 03/13/18 12:14pm Directive Response Recor ded Date/Time Advance Directives No 10:56am Health Care Power of Service Agent No 08/11/18 10:56am Organ Donor No 08/11/18 10:56am Resuscitation Status Full Code 08/11/18 10:56am Discharge Instructions No hospital discharge instructions.No hospital discharge instructions.Current inpatient/outpatient. Discharge instructions are currently unavailable.No hospital discharge instructions.No hospital discharge instructions.No hospital discharge instructions.No hospital discharge instructions.No hospital discharge instructions.No hospital discharge instruction information available.No hospital discharge instructions.No hospital discharge instructions.No hospital discharge instructions.No hospital discharge instructions.No hospital discharge instructions.No hospital discharge instructions.No hospital discharge instructions.No hospital discharge instructions.No hospital discharge instructions.No hospital discharge ins tructions.No hospital discharge instructions.No hospital discharge instruction i nformation available.No hospital discharge instruction information available.No hospital discharge instruction information available.No hospital discharge instr uction information available.No hospital discharge instruction information avail able.No hospital discharge instruction information available.No hospital dischar ge instruction information available.No hospital discharge instruction informati on available.No hospital discharge instruction information available.No hospital discharge instruction information available.No hospital discharge instruction i nformation available. Chief Complaint and Reason for Visit Chief Complaint General Problems/Rhiannon n Reason for Visit Anxiety attack Chief Complaint Abdominal/GI Problem s Reason for Visit Intermittent left l ower quadrant abdominal pain Chief Complaint Cough/Cold/Flu Sympt oms Reason for Visit Bronchitis history of recent C Diff infection Chief Complaint Skin/Wound Problems Reason for Visit Injection site reac tion localized irritation from insulin shots Chief Complaint -Female Reason for Visit Urinary tract infec tion Chief Complaint Cough/Cold/Flu Sympt oms Reason for Visit Bronchitis Additional Source Comments This clinical document has been generated using [employer] software that has been certified by the Office of the National Coordinator for Health Information Technology (ONC 15.99.04.3023.Diam.31.00.0.975423) and the National Committee for Pipe Layer Helper (NCQA, as an eMeasure certified technology). FOR RECORDS PERTAINING TO PATIENTS WHO ARE OR HAVE BEEN ENROLLED IN A CHEMICAL D EPENDENCY/SUBSTANCE ABUSE PROGRAM, SOME INFORMATION MAY BE OMITTED. This clinica l summary was aggregated from multiple sources. Caution should be exercised in using it in the provision of clinical care. This summary normalizes information from multiple sources, and as a consequence, information in this document may ma terially change the coding, format and clinical context of patient data. In adri tion, data may be omitted in some cases. CLINICAL DECISIONS SHOULD BE BASED ON T HE PRIMARY CLINICAL RECORDS. [employer] provides no warranty or guara ntee of the accuracy or completeness of information in this document.The followi ng information is based on time limited clinical information UNRECOGNIZED CONTENT PROVIDED BELOW FOR UNRECOGNIZED SECTION MEDICAL (GENERAL) HISTORY Type Description Date Medical History diabetes mellitus Medical History hyperlipidemia Medical History hypertension Medical History stroke Medical History Anxiety disorder Medical History Panic attacks Medical History Blood Clotting Disor slava- Dr Gomez at [facility] Medical History Possible Anemia (cur rently under work up) - Dr Gomez [facility] Medical History irregular heart beat -sees dr. garrett Medical History history of pancreatitis Medical History gerd Surgical History tubal ligation Surgical History section Surgical History cholecystectomy Surgical History Toe Nail Removal x2 Hospitalization History Brain Stem S frankie x5. Has been hospitalized at then transfered to [facility]. 2015 Hospitalization History Child Type Description Date Medical History diabetes mellitus Medical History hyperlipidemia Medical History hypertension Medical History stroke Medical History Anxiety disorder Medical History Panic attacks Medical History Blood Clotting Disor slava- Dr Gomez at [facility] Medical History Possible Anemia (cur rently under work up) - Dr Gomez [facility] Medical History irregular heart beat -sees dr. garrett Medical History history of pancreatitis Medical History gerd Medical History History of CVA with residual deficit Medical History Other complicated he adache syndrome Medical History Stokes syndrome Surgical History tubal ligation Surgical History section Surgical History cholecystectomy Surgical History Toe Nail Removal x2 Hospitalization History Brain Stem S trokes x5. Has been hospitalized at then transfered to [facility]. 2014 Hospitalization History Child Hospitalization History abd pain and shakiness - [facility] ED visit [facility] 03/12/17 Hospitalization History [facility] ED for URI 04/16/17 Type Description Date Medical History diabetes mellitus Medical History hyperlipidemia Medical History hypertension Medical History Anxiety disorder Medical History Blood Clotting Disor slava- Dr Gomez at [facility] Medical History Possible Anemia (cur rently under work up) - Dr Gomez [facility] Medical History irregular heart beat -sees dr. garrett Medical History history of pancreatitis Medical History gerd Medical History History of CVA with residual deficit Medical History Other complicated he adache syndrome Medical History Stokes syndrome Surgical History tubal ligation Surgical History section Surgical History cholecystectomy Surgical History Toe Nail Removal x2 Hospitalization History Brain Stem S trokes x5. Has been hospitalized at then transfered to [facility]. 2014 Hospitalization History Child Hospitalization History abd pain and shakiness - [facility] ED visit [facility] 03/12/17 Hospitalization History [facility] ED for URI 04/16/17 Hospitalization History [facility]17 Type Description Date Medical History diabetes mellitus Medical History hyperlipidemia Medical History hypertension Medical History Anxiety disorder Medical History Blood Clotting Disor slava- Dr Gomez at [facility] Medical History Possible Anemia (cur rently under work up) - Dr Gomez [facility] Medical History irregular heart beat -sees dr. garrett Medical History history of pancreatitis Medical History gerd Medical History History of CVA with residual deficit Medical History Other complicated he adache syndrome Medical History Stokes syndrome Surgical History tubal ligation Surgical History section Surgical History cholecystectomy Surgical History Toe Nail Removal x2 Hospitalization History Brain Stem S trokes x5. Has been hospitalized at then transfered to [facility]. 2014 Hospitalization History Child Hospitalization History abd pain and shakiness - [facility] ED visit [facility] 03/12/17 Hospitalization History [facility] ED for URI 04/16/17 Hospitalization History [facility] 08/16/17 Hospitalization History ER 11/2017 UNRECOGNIZED CONTENT PROVIDED BELOW FOR UNRECOGNIZED SECTION REASON FOR VISIT Pain management (chronic) -- tapan chawla, refill on medications Medication reac tionTermination of Controlled AgreementRefill requestControlled refill requestlu mp on arm, PT reports she has a lump under her right armpit that appeared two da ys ago. PT notes it is hot to the touch and sore. -Rick ELLIS awaiting weaning planLab (walk-in)Medication reactionVC ER follow up. Was in the ER last week for dizziness , UTI symptoms and "just not feeling good". TAPAN DanielsAbdominal pain x1 week K Светлана ELLIS, Mucus like diarrhea x3 daysRequests return callRequests return callRequests return callrefill requestthrush-the patient's mouth has been itching but it is now hurting to the point that she cannot eat or drink._ _Candelaria Allenuria et frequency since last noc. lmp...started 5 days ago...currently on period. [id number] ER for bronchitis Hebert ELLIS, Flu shot Jyokylah MARequests return callUTI-burning and pain on urination, back pain early on and the patient had two Pyridium left and took them.--Aric Allen reque [id number] questionMedication question
--- OUTSIDE RECORDS SUMMARY | 2019-06-03 16:25 | XMS REPORT ---
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 Name Role Phone SANDRA, JONO Unavailable PROBLEMS Type Condition ICD9-CM Code WUG51-ND Code Onset Dates Condition S tatus SNOMED Code Problem Vitamin D deficiency E55.9 Active 23959697 Problem Generalized anxiety disorder F41.1 A ctive 36166437 Problem Elevated liver enzymes R74.8 Active 755159726 Problem Major depressive disorder, recurrent episode, moderate F33.1 Active 105275627 Problem Chronic pain syndrome G89.4 Active 892902454 Problem penitentiary current use of insulin Z79.4 Active 731899103 Problem Essential hypertension I10 Active 69142286 Problem DM (diabetes mellitus) with complications E11.8 Active 12145042 Problem Tobacco abuse Z72.0 Active 591034 000 Problem Other chronic pain G89.29 Active 8 1656250 Problem Seasonal allergic rhinitis due to pollen J30.1 Active 70311545 Problem Tobacco abuse counseling Z71.6 Activ e 654553551 Problem Type 2 diabetes mellitus with hyperglycemia E11.65 Active 04581065 Problem History of CVA with residual deficit I69.30 Active 727099038 Problem Acute non intractable tension-type headache G44.20 9 Active 969482108 Problem Abnormal drug screen R89.2 Active 050323788 Problem Panic disorder F41.0 Active 07470 1005 Problem penitentiary (current) use of insulin Z79.4 Active 870658489 Problem Gastroesophageal reflux disease, esophagitis pre sence not specified K21.9 Active 286703203 Problem Simple chronic bronchitis J41.0 Acti ve 11024873 Problem 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 Active 679039980 Problem Hyperlipidemia, unspecified hyperlipidemia type E7 8.5 Active 62695808 Problem Type 2 diabetes mellitus without complications E11 .9 Active 280784052 Problem Recurrent major depressive disorder, in full remission F33.42 Active 19461099 Problem Slow transit constipation K59.01 Acti ve 15690564 Problem Slow transit constipation K59.01 Acti ve 38096435 ALLERGIES No Information ENCOUNTERS Encounter Location Date Diagnosis [facility] [address] [address] Apr, [facility] [address] [address] Apr, [facility] [address] [address] 05 Apr, 2019 [facility] [address] [address] 04 Apr, 2019 [facility] [address] [address] Mar, Simple chronic bronchitis J4 1.0 ; Chest wall pain R07.89 and Tobacco abuse counseling Z71.6 [place] [address] [address] Mar, [facility] [address] [address] Mar, [facility] [address] [address] Mar, [facility] [address] [place] [address] Mar, Bronchitis J40 [place] [address] [address] Mar, Type 2 diabetes mellitus without complic ations E11.9 [facility] [address] [address] Mar, [place] [address] [address] Mar, [facility] [address] [address] Mar, [facility] [address] [address] Mar, [facility] [address] [address] Feb, [place] [address] [address] Feb, Type 2 diabetes mellitus with hyperglyce kina E11.65 ; 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 (current) use of insulin Z79.4 ; Acute pain of left knee M25.562 and Breast cancer screening Z12.39 [place] [address] [address] Feb, [place] [address] [address] Feb, [facility] [address] [place] [address] Feb, Acute non-recurrent sinusiti s, unspecified location J01.90 ; Bacterial conjunctivitis of left eye H10.9 and Bronchitis J40 [place] [address] [address] Feb, Essential hypertension I10 [place] [address] [address] Feb, Type 2 diabetes mellitus without complic ations E11.9 [facility] [address] [facility] [id number] [address] [place] [address] Feb, Viral upper respiratory trac t infection J06.9 [place] [address] [address] Feb, Type 2 diabetes mellitus without complic ations E11.9 [place] [address] [address] Jan, [place] [address] [address] Jan, [place] [address] [address] Jan, [place] [address] [place] [address] 14 Jan, 2019 [facility] [address] [facility] [id number] [address] [place] [address] Jan, Dysuria R30.0 [facility] [address] [address] Jan, [facility] [address] [address] Jan, Type 2 diabetes mellitus with hyperglyce kina E11.65 [facility] [address] [address] Dec, [place] [address] [address] Dec, [facility] [address] [address] Dec, [facility] [address] [facility] [id number] [address] [place] [address] 15 Dec, 2018 Dysuria R30.0 ; Urinary trac t infection, site not specified N39.0 and Hematuria, unspecified R31.9 [place] [address] [address] 14 Dec, 2018 Gastroesophageal reflux disease, esophag itis presence not specified K21.9 [facility] [address] [address] 14 Dec, 2018 Type 2 diabetes mellitus without complic ations E11.9 [facility] [address] [address] Dec, DM (diabetes mellitus) with complication s E11.8 [address] [place] [address] Nov, [facility] [address] [address] Nov, DM (diabetes mellitus) with complication s E11.8 ; Generalized anxiety disorder F41.1 ; Slow transit constipation K59.01 and Tobacco abuse Z72.0 [facility] [address] [facility] [id number] [address] [place] [address] 19 Nov, 2018 Encounter for immunization Z 23 [facility] [address] [place] [id number] [place] [address] 11 Nov, 2018 [facility] [address] [place] [id number] [place] [address] 10 Nov, 2018 [facility] [address] [place] [id number] [place] [address] 09 Nov, 2018 [facility] [address] [facility] [id number] [address] [place] [address] 08 Nov, 2018 [facility] [address] [facility] [id number] [address] [place] [address] 07 Nov, 2018 Blood pressure check Z01.30 [facility] [address] [place] [id number] [place] [address] 06 Nov, 2018 [facility] [address] [place] [id number] [place] [address] 05 Nov, 2018 [facility] [address] [place] [id number] [place] [address] Oct, [facility] [address] [place] [id number] [place] [address] Oct, [facility] [address] [place] [id number] [place] [address] Sep, [facility] [address] [place] [address] [id number] [place] [address] Sep, Type 2 diabetes mellitus with hyperglyce kina E11.65 [facility] [address] [id number] [place] [id number] Sep, Type 2 diabetes mellitus with hyperglycemia E11.65 [facility] [address] [facility] [id number] [address] [place] [address] Sep, Local infection of the skin and subcutaneous tissue, unspecified L08.9 ; Insect bite (nonvenomous), right lower leg, initial encounter S80.861A ; Insect bite (nonvenomous), left lower leg, initial encou nter S80.862A and Bitten or stung by nonvenomous insect and other nonvenomous arthropods, initial encounter W57.XXXA [place] [address] [address] Sep, [place] [address] [address] Aug, [place] [address] [address] Aug, Type 2 diabetes mellitus with hyperglyce kina E11.65 [place] [address] [address] July, [place] [address] [address] July, Type 2 diabetes mellitus with hyperglyce kina E11.65 ; Seasonal allergic rhinitis due to pollen J30.1 ; Abdominal bloating R14.0 and Tobacco abuse Z72.0 [place] [address] [address] July, Hypokalemia E87.6 and History of CVA wit h residual deficit I69.30 [place] [address] [address] Jun, Essential hypertension I10 [address] [address] Jun, [place] [address] [address] Jun, Type 2 diabetes mellitus with hyperglyce kina E11.65 ; History of CVA with residual deficit I69.30 and Recurrent major depressive disorder, in full remission F33.42 [facility] [address] [facility] [id number] [place] [address] May, [place] [address] [address] May, [facility] [address] [place] [id number] [address] [place] [address] 27 May, 2018 Dysuria R30.0 ; Urinary trac t infection, site not specified N39.0 and Hematuria, unspecified R31.9 [place] [address] [place] [id number] May, Essential hypertension I10 and Gastroeso phageal reflux disease, esophagitis presence not specified K21.9 [place] [address] [address] May, [place] [address] [place] [address] May, Essential hypertension I10 [facility] [address] [address] 10 May, 2018 Acute cystitis with hematuri a N30.01 and Dysuria R30.0 [place] [address] [address] 06 May, 2018 Type 2 diabetes mellitus with hyperglyce kina E11.65 [place] [address] [address] Apr, Gastroesophageal reflux disease, esophag itis presence not specified K21.9 [facility] [place] [address] [address] Apr, Sore throat J02.9 [place] [address] [address] 15 Apr, 2018 Gastroesophageal reflux disease, esophag itis presence not specified K21.9 and Abdominal bloating R14.0 [place] [address] [address] 15 Apr, 2018 History of CVA with residual deficit I69 .30 [place] [address] [address] 06 Apr, 2018 Bronchitis J40 ; Type 2 diabetes mellitu s without complications E11.9 and penitentiary current use of insulin Z79.4 [place] [address] [place] [id number] [place] [address] 04 Apr, 2018 [facility] [address] [place] [id number] [address] [place] [address] Mar, Viral upper respiratory trac t infection J06.9 [place] [address] [address] Mar, Cough R05 [place] [address] [address] Feb, Type 2 diabetes mellitus with hyperglyce kina E11.65 and History of Clostridium difficile infection Z86.19 [place] [address] [address] Feb, [place] [address] [address] Feb, Acute nasopharyngitis (common cold) J00 and Cough R05 [place] [address] [address] Feb, [facility] [address] [place] [id number] [place] [address] Feb, Dysuria R30.0 ; Urinary trac t infection, site not specified N39.0 and Encounter for immunization Z23 [place] [address] [address] 05 Feb, 2018 Bronchitis J40 [facility] [address] [facility] [id number] [address] [place] [address] Jan, Oral thrush B37.0 [place] [address] [address] Jan, [place] [address] [address] Jan, [place] [address] [address] Jan, [place] [address] [address] Jan, [facility] [address] [address] Jan, Bronchitis J40 [place] [address] [address] Jan, [facility] [address] [address] Jan, [place] [address] [place] [address] Dec, Hyperlipidemia, unspecified hyperlipidem ia type E78.5 [place] [address] [address] Dec, C. difficile diarrhea A04.72 and Bronchi tis J40 [place] [address] [address] Dec, [place] [address] [address] Nov, C. difficile diarrhea A04.72 [place] [address] [address] Nov, Panic disorder F41.0 [place] [address] [place] [id number] [place] [address] Nov, Diarrhea, unspecified type R19.7 [place] [address] [address] Nov, [place] [address] [address] Nov, Dysuria R30.0 ; Acute cystitis with armando turia N30.01 ; Flank pain R10.9 and Violation of controlled substance agreement Z91.14 [place] [address] [place] [id number] [place] [address] Oct, [facility] [address] [facility] [id number] [address] [place] [address] Oct, [facility] [address] [facility] [id number] [address] [place] [address] Oct, Dysuria R30.0 and Acute cyst itis with hematuria N30.01 [place] [address] [address] Oct, [facility] [address] [address] Oct, [place] [address] [address] Oct, Controlled substance agreement broken Z9 1.14 ; Violation of controlled substance agreement Z91.14 ; Other chronic pain G89.29 and Generalized anxiety disorder F41.1 [place] [address] [address] Oct, [place] [address] [address] Oct, [place] [address] [address] Sep, Abscess L02.91 [place] [address] [address] Sep, [place] [address] [address] Sep, DM (diabetes mellitus) with complication s E11.8 ; Generalized anxiety disorder F41.1 and Chronic pain syndrome G89.4 [place] [address] [address] Sep, Generalized anxiety disorder F41.1 ; Chr onic pain syndrome G89.4 ; Abnormal drug screen R89.2 and Other chest pain R07.89 [place] [address] [address] Aug, Dysuria R30.0 [place] [address] [address] Aug, Generalized anxiety disorder F41.1 ; Chr onic pain syndrome G89.4 and Dysuria R30.0 [place] [address] [address] Aug, Acute cystitis with hematuria N30.01 and Candidal dermatitis B37.2 [place] [address] [address] Aug, Dysuria R30.0 [place] [address] [address] Aug, [facility] [address] [facility] [id number] [address] [place] [address] Aug, Dysuria R30.0 [place] [address] [address] Aug, [place] [address] [address] July, Cervicalgia M54.2 ; Acute non intractabl e tension-type headache G44.209 ; Type 2 diabetes mellitus with hyperglycemia E11.65 and 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 current use of insulin Z79.4 [place] [address] [address] July, Generalized anxiety disorder F41.1 and C hronic pain syndrome G89.4 [place] [address] [address] July, Abscess L02.91 [place] [address] [address] July, [place] [address] [address] July, [place] [address] [address] July, Type 2 diabetes mellitus with hyperglyce kina E11.65 ; 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 current use of [...] pain syndrome G89.4 and Vaginal candidiasis B37.3 [place] [address] [address] Jun, Generalized anxiety disorder F41.1 and O ther chronic pain G89.29 [place] [address] [address] Jun, [place] [address] [address] Jun, [place] [address] [address] Jun, Abnormal levels of other serum enzymes R 74.8 [place] [address] [address] Jun, Abnormal levels of other serum enzymes R 74.8 [place] [address] [address] Jun, Elevated liver enzymes R74.8 [place] [address] [address] Jun, Elevated liver enzymes R74.8 [place] [address] [address] May, Right upper quadrant pain R10.11 ; Cervi calgia M54.2 and High risk medication use Z79.899 [place] [address] [address] May, Generalized anxiety disorder F41.1 and O ther chronic pain G89.29 [place] [address] [address] May, Canker sores oral K12.[address] [address] May, Generalized anxiety disorder F41.1 and O ther chronic pain G89.29 [facility] [address] [address] May, [facility] [address] [address] Apr, [facility] [address] [place] [address] Apr, Acute cystitis with hematuri a N30.01 and Dysuria R30.0 [place] [address] [address] Apr, [place] [address] [address] Apr, [place] [address] [address] Apr, DM (diabetes mellitus) with complication s E11.8 [place] [address] [address] Apr, DM (diabetes mellitus) with complication s E11.8 [place] [address] [address] Apr, [place] [address] [address] Apr, [place] [address] [address] Apr, Other chronic pain G89.29 ; Generalized anxiety disorder F41.1 ; Cervicalgia M54.2 and Controlled substance agreement signed Z79.899 [facility] [address] [place] [address] Mar, Abdominal pain R10.9 and Vir al gastroenteritis A08.4 [place] [address] [address] Mar, [facility] [address] [address] Mar, [place] [address] [address] Mar, DM (diabetes mellitus) with complication s E11.8 ; Type 2 diabetes mellitus with [...] not specified K21.9 and 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 [place] [address] [address] Mar, [place] [address] [address] Mar, DM (diabetes mellitus) with complication s E11.8 ; Abnormal lung sounds R09.89 ; Bronchitis J40 and Hyperlipidemia, unspecified hyperlipidemia type E78.5 [facility] [address] [facility] [id number] [address] [place] [address] Mar, URI, acute J06.9 [place] [address] [address] Mar, [place] [address] [address] Mar, DM (diabetes mellitus) with complication s E11.8 [place] [address] [address] Mar, Other chronic pain G89.29 and Generalize d anxiety disorder F41.1 [place] [address] [address] Feb, [address] [address] Feb, Mass of left lung R91.8 and Cervicalgia M54.2 [place] [address] [address] Feb, [facility] [address] [address] Feb, [facility] [address] [address] Feb, Cough R05 and Bronchitis J40 [facility] [address] [address] 07 Feb, 2017 Acute nasopharyngitis J00 an d Bronchitis J40 [facility] [address] [address] 06 Feb, 2017 Other chronic pain G89.29 and Generalize d anxiety disorder F41.1 [place] [address] [address] 29 Jan, 2017 Encounter for immunization Z23 [facility] [address] [address] Jan, [facility] N [address] [address] 18 Jan, 2017 [place] [address] [address] 16 Jan, 2017 Canker sores oral K12.0 [place] [address] [address] 14 Jan, 2017 [place] [address] [address] 07 Jan, 2017 Other chronic pain G89.29 and Generalize d anxiety disorder F41.1 [facility] [address] [address] 06 Jan, 2017 Cough R05 and Bronchitis J40 [facility] [address] [address] 04 Jan, 2017 Bronchitis J40 [facility] [address] [address] Dec, Vitamin D deficiency E55.9 [place] [address] [address] Dec, DM (diabetes mellitus) with complication s E11.8 [place] [address] [address] Dec, DM (diabetes mellitus) with complication s E11.8 and Vitamin D deficiency E55.9 [place] [address] [address] 10 Dec, 2016 DM (diabetes mellitus) with complication s E11.8 ; Essential hypertension I10 ; Hyperlipidemia, unspecified hyperlipidemia type E78.5 ; Vitamin D deficiency E55.9 ; Gastroesophageal reflux disease, esophagitis presence not specified K21.9 ; 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 ; Other chronic pain G89.29 ; Encounter for immunization Z23 and Generalized anxiety disorder F41.[address] [address] Nov, History of CVA with residual deficit I69 .[address] [address] Nov, DM (diabetes mellitus) with complication s E11.8 [place] [address] [address] 06 Nov, 2016 Left otitis media with effusion H65.92 ; Bronchitis J40 and Canker sores oral K12.[address] [address] Oct, [address] [address] Oct, DM (diabetes mellitus) with complication s E11.8 [place] [address] [address] Oct, [address] [address] Sep, DM (diabetes mellitus) with complication s E11.8 [place] [address] [address] Sep, DM (diabetes mellitus) with complication s E11.8 ; Essential hypertension I10 ; Gastroesophageal reflux disease, esophagitis presence not specified K21.9 ; Hyperlipidemia, unspecified hyperlipidemia type E78.5 ; Tobacco abuse Z72.0 ; Vitamin D deficiency E55.9 ; History of CVA with residual deficit I69.30 and Seasonal allergic rhinitis due to pollen J30.1 [facility] [address] [address] Sep, [facility] [address] [address] Aug, [facility] [address] [facility] [id number] [address] [place] [address] Aug, Dysuria R30.0 ; Acute cystit is with hematuria N30.01 and Middle ear effusion, right H65.91 [place] [address] [address] Aug, Other complicated headache syndrome G44. 59 [place] [address] [address] Aug, DM (diabetes mellitus) with complication s E11.8 [place] [address] [address] 14 Aug, 2016 Dysuria R30.0 [place] [address] [address] 12 Aug, 2016 Dysuria R30.0 [place] [address] [address] Aug, [place] [address] [address] July, [place] [address] [address] July, [place] [address] [address] July, DM (diabetes mellitus) with complication s E11.8 [place] [address] [address] July, Other complicated headache syndrome G44. 59 [facility] [address] [address] July, [facility] [address] [place] [id number] [address] [place] [address] July, Dysuria R30.0 and Acute cyst itis with hematuria N30.01 [place] [address] [address] July, [place] [address] [address] July, Other complicated headache syndrome G44. 59 [facility] [id number] [place] [address] Jun, Exposure to strep throat Z20 .818 and Acute upper respiratory infection, unspecified J06.9 [place] [address] [address] Jun, [place] [address] [address] Jun, DM (diabetes mellitus) with complication s E11.8 and Gastroesophageal reflux disease, esophagitis presence not specified K21.9 [place] [address] [address] Jun, [place] [address] [address] Jun, Dizziness R42 [facility] [address] [place] [id number] [place] [id number] Jun, [place] [address] [address] Jun, [facility] [address] [place] [id number] [place] [id number] May, Seasonal allergic rhinitis, unspecified allergic rhinitis trigger J30.2 [place] [address] [address] May, [facility] [address] [place] [address] [id number] [place] [address] May, DM (diabetes mellitus) with complication s E11.8 ; Vitamin D deficiency E55.9 ; Tobacco abuse Z72.0 ; Tobacco abuse counseling Z71.6 ; Essential hypertension I10 ; History of CVA with residual deficit I69.30 ; Irregular heart rhythm I49.9 ; Hypokalemia E87.6 ; Hyperlipidemia, unspecified hyperlipidemia type E78.5 ; Gastroesophageal reflux disease, esophagitis presence not specified K21.9 and Seasonal allergic rhinitis due to pollen J30.1 [place] [address] [address] May, Gastroesophageal reflux disease, esophag itis presence not specified K21.9 [place] [address] [address] May, [place] [address] [address] Apr, [place] [address] [place] [id number] [place] [address] Apr, [facility] [address] [address] Mar, [facility] [address] [address] Mar, [facility] [address] [address] Mar, [facility] [address] [place] [address] [id number] [place] [address] Mar, [facility] [address] [address] Feb, [facility] [address] [address] Feb, [facility] [address] [place] [id number] [place] [address] Feb, [facility] [address] [address] Feb, Major depressive disorder, recurrent epi sode, moderate F33.1 ; Generalized anxiety disorder F41.1 ; Essential hypertension I10 ; DM (diabetes mellitus) with complications E11.8 ; Hyperlipidemia, unspecified hyperlipidemia type E78.5 ; 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 and Gastroesophageal reflux disease, esophagitis presence not specified K21.9 [facility] [address] [place] [id number] [place] [address] Feb, Other viral agents as the ca use of diseases classified elsewhere B97.89 and Acute upper respiratory infection, unspecified J06.9 [place] [address] [address] Jan, [place] [address] [address] Jan, [facility] [address] [place] [id number] [place] [address] Jan, Acute bronchitis, unspecifie d organism J20.9 [place] [address] [address] Jan, [place] [address] [address] Jan, History of CVA with residual deficit I69 .30 [place] [address] [address] Jan, [place] [address] [address] Jan, Acute bronchitis, unspecified organism J 20.9 [place] [address] [address] Jan, [place] [address] [address] Dec, History of CVA with residual deficit I69 .30 [place] [address] [address] Dec, [place] [address] [address] Dec, Other chronic pain G89.29 ; DM (diabetes mellitus) with complications E11.8 and History of CVA with residual deficit I69.30 [place] [address] [address] Nov, Major depressive disorder, recurrent epi sode, moderate F33.1 ; Irregular heart rhythm I49.9 ; Essential hypertension I10 ; History of CVA with residual deficit I69.30 ; DM (diabetes mellitus) with complications E11.8 ; Gastroesophageal reflux disease, esophagitis presence not specified K21.9 ; Hyperlipidemia, unspecified hyperlipidemia type E78.5 ; 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 ; Other chronic pain G89.29 and Generalized anxiety disorder F41.[address] [address] Oct, Generalized anxiety disorder F41.1 ; Inocente or depressive disorder, recurrent episode, moderate F33.1 ; Essential hypertension I10 ; History of CVA with residual deficit I69.30 ; DM (diabetes mellitus) with complications E11.8 ; Gastroesophageal reflux disease, esophagitis presence not specified K21.9 ; Hyperlipidemia, unspecified hyperlipidemia type E78.5 ; Other chronic pain G89.29 and Bacterial conjunctivitis of left eye H10.[address] [address] Sep, Chronic pain syndrome G89.4 and DM (diab etes mellitus) with complications E11.[address] [address] Sep, Irregular heart rhythm I49.9 ; Routine h ealth maintenance Z00.00 ; Essential hypertension I10 ; History of CVA with residual deficit I69.30 ; Gastroesophageal reflux disease, esophagitis presence not specified K21.9 ; DM (diabetes mellitus) with complications E11.8 ; Hyperlipidemia, unspecified hyperlipidemia type E78.5 and Other complicated headache syndrome G44.[address] [address] Jun, [facility] [address] [facility] [id number] [place] [address] Jun, [facility] [address] [id number] [place] [address] Aug, [facility] [address] [id number] [place] [address] Jun, IMMUNIZATIONS No Known Immunizations SOCIAL HISTORY Never Assessed REASON FOR VISIT Medication question PLAN OF CARE VITAL SIGNS MEDICATIONS Unknown Medications RESULTS No Results PROCEDURES No Known procedures INSTRUCTIONS MEDICATIONS ADMINISTERED No Known Medications MEDICAL (GENERAL) HISTORY Type Description Date Medical History diabetes mellitus Medical History hyperlipidemia Medical History hypertension Medical History Anxiety disorder Medical History Blood Clotting Disorder- Dr Galvan at [facility] Medical History Possible Anemia (currently u nder work up) - Dr Galvan [facility] Medical History irregular heart beat-sees dr. hassan Medical History history of pancreatitis Medical History gerd Medical History History of CVA with residual deficit Medical History Other complicated headache syndrome Medical History Stokes syndrome Surgical History tubal ligation Surgical History section Surgical History cholecystectomy Surgical History Toe Nail Removal x2 Surgical History hiatial hernia repair 08/21/2018 Hospitalization History Brain Stem Strokes x5. Has been hospitalized at then transfered to [place]. 2014 Hospitalization History Child Hospitalization History abd pain and shakiness - [facility] ED visi t [facility] 03/12/17 Hospitalization History [facility] ED for URI 04/16/17 Hospitalization History via [facility] er 08/16/17 Hospitalization History ER 11/2017
--- OUTSIDE RECORDS SUMMARY | 2019-06-03 16:25 | XMS REPORT ---
Author Author Haley JOYCE CHESTER Organization [facility] Address [address] [place] [address] Care Team Providers Care Deliver Driver Name Role Phone KING CHESTER Unavailable PROBLEMS Type Condition ICD9-CM Code JAR83-KU Code Onset Dates Condition S tatus SNOMED Code Problem Vitamin D deficiency E55.9 Active 82340840 Problem Generalized anxiety disorder F41.1 A ctive 60781855 Problem Elevated liver enzymes R74.8 Active 807092823 Problem Major depressive disorder, recurrent episode, moderate F33.1 Active 436347119 Problem Chronic pain syndrome G89.4 Active 603406597 Problem correction current use of insulin Z79.4 Active 477974067 Problem Essential hypertension I10 Active 47933060 Problem DM (diabetes mellitus) with complications E11.8 Active 89834563 Problem Tobacco abuse Z72.0 Active 986679 000 Problem Other chronic pain G89.29 Active 8 9559268 Problem Seasonal allergic rhinitis due to pollen J30.1 Active 01995022 Problem Tobacco abuse counseling Z71.6 Activ e 634711692 Problem Type 2 diabetes mellitus with hyperglycemia E11.65 Active 34058409 Problem History of CVA with residual deficit I69.30 Active 423598171 Problem Acute non intractable tension-type headache G44.20 9 Active 443832816 Problem Abnormal drug screen R89.2 Active 534879434 Problem Panic disorder F41.0 Active 37507 1005 Problem correction (current) use of insulin Z79.4 Active 536642201 Problem Gastroesophageal reflux disease, esophagitis pre sence not specified K21.9 Active 440759620 Problem Simple chronic bronchitis J41.0 Acti ve 38702752 Problem 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 Active 067053950 Problem Hyperlipidemia, unspecified hyperlipidemia type E7 8.5 Active 07831227 Problem Type 2 diabetes mellitus without complications E11 .9 Active 922350682 Problem Recurrent major depressive disorder, in full remission F33.42 Active 83174505 Problem Slow transit constipation K59.01 Acti ve 61376600 Problem Slow transit constipation K59.01 Acti ve 38953899 ALLERGIES No Information ENCOUNTERS Encounter Location Date Diagnosis [facility] [address] [address] Apr, [facility] [address] [address] Apr, [facility] [address] [address] Apr, [facility] [address] [address] 04 Apr, 2019 [facility] [address] [place] [address] Mar, Simple chronic bronchitis J4 1.0 ; Chest wall pain R07.89 and Tobacco abuse counseling Z71.6 [place] [address] [address] Mar, [facility] [address] [address] Mar, [place] [address] [address] Mar, [facility] [address] [place] [address] Mar, Bronchitis J40 [place] [address] [address] Mar, Type 2 diabetes mellitus without complic ations E11.9 [facility] [address] [address] Mar, [facility] [address] [address] Mar, [facility] [address] [address] Mar, [facility] [address] [address] Mar, [place] [address] [place] [id number] [place] [address] Feb, [place] [address] [address] Feb, Type 2 diabetes mellitus with hyperglyce kina E11.65 ; intermediate manager (current) use of insulin Z79.4 ; Acute pain of left knee M25.562 and Breast cancer screening Z12.39 [place] [address] [address] Feb, [place] [address] [address] Feb, [facility] [place] [address] [place] [address] Feb, Acute non-recurrent sinusiti s, unspecified location J01.90 ; Bacterial conjunctivitis of left eye H10.9 and Bronchitis J40 [place] [address] [address] Feb, Essential hypertension I10 [place] [address] [address] Feb, Type 2 diabetes mellitus without complic ations E11.9 [facility] [place] [address] [place] [id number] [place] [address] Feb, Viral upper respiratory trac t infection J06.9 [place] [address] [address] Feb, Type 2 diabetes mellitus without complic ations E11.9 [place] [address] [address] Jan, [place] [address] [address] Jan, [place] [address] [address] Jan, [place] [address] [address] Jan, [facility] [address] [facility] [id number] [address] [place] [address] Jan, Dysuria R30.0 [facility] [address] [place] [id number] [place] [address] Jan, [facility] [address] [address] Jan, Type 2 diabetes mellitus with hyperglyce kina E11.65 [place] [address] [address] Dec, [place] [address] [address] Dec, [facility] [address] [address] Dec, [facility] [place] [address] [facility] [id number] [address] [place] [address] 15 Dec, 2018 Dysuria R30.0 ; Urinary trac t infection, site not specified N39.0 and Hematuria, unspecified R31.9 [place] [address] [address] Dec, Gastroesophageal reflux disease, esophag itis presence not specified K21.9 [place] [address] [address] 14 Dec, 2018 Type 2 diabetes mellitus without complic ations E11.9 [place] [address] [place] [id number] [place] [address] Dec, DM (diabetes mellitus) with complication s E11.8 [address] [place] [address] Nov, [place] [address] [address] Nov, DM (diabetes mellitus) with complication s E11.8 ; Generalized anxiety disorder F41.1 ; Slow transit constipation K59.01 and Tobacco abuse Z72.0 [facility] [address] [facility] [id number] [address] [place] [address] Nov, Encounter for immunization Z 23 [facility] [address] [address] 11 Nov, 2018 [facility] [address] [address] 10 Nov, 2018 [facility] [address] [address] Nov, [facility] [address] [facility] [id number] [address] [place] [address] 08 Nov, 2018 [facility] [address] [place] [id number] [address] [place] [address] 07 Nov, 2018 Blood pressure check Z01.30 [facility] [address] [address] Nov, [facility] [address] [address] Nov, [facility] [address] [address] Oct, [facility] [address] [address] Oct, [facility] [address] [address] Sep, [facility] [address] [address] Sep, Type 2 diabetes mellitus with hyperglyce kina E11.65 [facility] [address] [facility] [place] [id number] Sep, Type 2 diabetes mellitus with hyperglycemia E11.65 [facility] [address] [facility] [id number] [address] [place] [address] Sep, Local infection of the skin and subcutaneous tissue, unspecified L08.9 ; Insect bite (nonvenomous), right lower leg, initial encounter S80.861A ; Insect bite (nonvenomous), left lower leg, initial encou nter S80.862A and Bitten or stung by nonvenomous insect and other nonvenomous arthropods, initial encounter W57.XXXA [place] [address] [address] Sep, [place] [address] [address] Aug, [place] [address] [address] Aug, Type 2 diabetes mellitus with hyperglyce kina E11.[address] [address] July, [place] [address] [address] July, Type 2 diabetes mellitus with hyperglyce kina E11.65 ; Seasonal allergic rhinitis due to pollen J30.1 ; Abdominal bloating R14.0 and Tobacco abuse Z72.[address] [address] July, Hypokalemia E87.6 and History of CVA wit h residual deficit I69.[address] [address] Jun, Essential hypertension I10 [address] [address] Jun, [address] [address] Jun, Type 2 diabetes mellitus with hyperglyce kina E11.65 ; History of CVA with residual deficit I69.30 and Recurrent major depressive disorder, in full remission F33.42 [facility] [address] [place] [id number] [place] [address] May, [place] [address] [address] May, [facility] [address] [place] [id number] [place] [address] 27 May, 2018 Dysuria R30.0 ; Urinary trac t infection, site not specified N39.0 and Hematuria, unspecified R31.9 [place] [address] [place] [id number] May, Essential hypertension I10 and Gastroeso phageal reflux disease, esophagitis presence not specified K21.9 [place] [address] [address] May, [place] [address] [address] May, Essential hypertension I10 [facility] [place] [address] [address] 10 May, 2018 Acute cystitis with hematuri a N30.01 and Dysuria R30.0 [place] [address] [address] May, Type 2 diabetes mellitus with hyperglyce kina E11.65 [place] [address] [address] 28 Apr, 2018 Gastroesophageal reflux disease, esophag itis presence not specified K21.9 [facility] [place] [address] [address] 22 Apr, 2018 Sore throat J02.9 [place] [address] [address] 15 Apr, 2018 Gastroesophageal reflux disease, esophag itis presence not specified K21.9 and Abdominal bloating R14.[address] [address] 15 Apr, 2018 History of CVA with residual deficit I69 .30 [place] [address] [address] 06 Apr, 2018 Bronchitis J40 ; Type 2 diabetes mellitu s without complications E11.9 and intermediate manager current use of insulin Z79.4 [place] [address] [place] [id number] [place] [address] 04 Apr, 2018 [facility] [address] [facility] [id number] [address] [place] [address] Mar, Viral upper respiratory trac t infection J06.9 [facility] [address] [address] Mar, Cough R05 [place] [address] [address] Feb, Type 2 diabetes mellitus with hyperglyce kina E11.65 and History of Clostridium difficile infection Z86.19 [place] [address] [address] Feb, [place] [address] [address] Feb, Acute nasopharyngitis (common cold) J00 and Cough R05 [place] [address] [address] Feb, [facility] [address] [facility] [id number] [address] [place] [address] Feb, Dysuria R30.0 ; Urinary trac t infection, site not specified N39.0 and Encounter for immunization Z23 [place] [address] [address] Feb, Bronchitis J40 [facility] [address] [facility] [id number] [address] [place] [address] Jan, Oral thrush B37.0 [place] [address] [address] Jan, [place] [address] [address] Jan, [place] [address] [address] Jan, [facility] [address] [address] Jan, [facility] [address] [place] [id number] [place] [address] Jan, Bronchitis J40 [place] [address] [place] [id number] [place] [address] Jan, [facility] [address] [address] Jan, [place] [address] [address] Dec, Hyperlipidemia, unspecified hyperlipidem ia type E78.5 [place] [address] [address] Dec, C. difficile diarrhea A04.72 and Bronchi tis J40 [place] [address] [address] Dec, [place] [address] [address] Nov, C. difficile diarrhea A04.72 [place] [address] [place] [id number] [place] [address] Nov, Panic disorder F41.0 [place] [address] [place] [id number] [place] [address] 25 Nov, 2017 Diarrhea, unspecified type R19.7 [place] [address] [address] Nov, [place] [address] [place] [id number] [place] [address] Nov, Dysuria R30.0 ; Acute cystitis with armando turia N30.01 ; Flank pain R10.9 and Violation of controlled substance agreement Z91.14 [place] [address] [place] [id number] [place] [address] Oct, [facility] [address] [facility] [id number] [address] [place] [address] Oct, [facility] [address] [facility] [id number] [address] [place] [address] Oct, Dysuria R30.0 and Acute cyst itis with hematuria N30.01 [place] [address] [address] Oct, [facility] [address] [address] Oct, [place] [address] [address] Oct, Controlled substance agreement broken Z9 1.14 ; Violation of controlled substance agreement Z91.14 ; Other chronic pain G89.29 and Generalized anxiety disorder F41.1 [place] [address] [address] Oct, [place] [address] [address] Oct, [place] [address] [address] Sep, Abscess L02.91 [place] [address] [address] Sep, [place] [address] [address] Sep, DM (diabetes mellitus) with complication s E11.8 ; Generalized anxiety disorder F41.1 and Chronic pain syndrome G89.4 [place] [address] [address] Sep, Generalized anxiety disorder F41.1 ; Chr onic pain syndrome G89.4 ; Abnormal drug screen R89.2 and Other chest pain R07.89 [place] [address] [address] Aug, Dysuria R30.0 [place] [address] [address] Aug, Generalized anxiety disorder F41.1 ; Chr onic pain syndrome G89.4 and Dysuria R30.0 [place] [address] [address] Aug, Acute cystitis with hematuria N30.01 and Candidal dermatitis B37.2 [place] [address] [address] Aug, Dysuria R30.0 [place] [address] [address] Aug, [facility] [address] [facility] [id number] [place] [address] Aug, Dysuria R30.0 [place] [address] [address] Aug, [place] [address] [address] July, Cervicalgia M54.2 ; Acute non intractabl e tension-type headache G44.209 ; Type 2 diabetes mellitus with hyperglycemia E11.65 and correction current use of insulin Z79.4 [place] [address] [address] July, Generalized anxiety disorder F41.1 and C hronic pain syndrome G89.4 [place] [address] [address] July, Abscess L02.91 [place] [address] [address] July, [place] [address] [address] July, [place] [address] [address] July, Type 2 diabetes mellitus with hyperglyce kina E11.65 ; intermediate manager current use of insulin Z79.4 ; [...] pain syndrome G89.4 and Vaginal candidiasis B37.3 [place] [address] [address] Jun, Generalized anxiety disorder F41.1 and O ther chronic pain G89.29 [place] [address] [address] Jun, [place] [address] [address] Jun, [place] [address] [address] Jun, Abnormal levels of other serum enzymes R 74.8 [place] [address] [address] Jun, Abnormal levels of other serum enzymes R 74.8 [place] [address] [address] Jun, Elevated liver enzymes R74.8 [place] [address] [address] Jun, Elevated liver enzymes R74.8 [place] [address] [address] May, Right upper quadrant pain R10.11 ; Cervi calgia M54.2 and High risk medication use Z79.899 [place] [address] [address] May, Generalized anxiety disorder F41.1 and O ther chronic pain G89.29 [place] [address] [address] May, Canker sores oral K12.[address] [address] May, Generalized anxiety disorder F41.1 and O ther chronic pain G89.29 [facility] [address] [address] May, [facility] [address] [address] Apr, [facility] [address] [place] [id number] [address] [place] [address] Apr, Acute cystitis with hematuri a N30.01 and Dysuria R30.0 [place] [address] [address] Apr, [place] [address] [address] Apr, [place] [address] [address] Apr, DM (diabetes mellitus) with complication s E11.8 [place] [address] [address] Apr, DM (diabetes mellitus) with complication s E11.8 [place] [address] [address] Apr, [facility] [address] [address] Apr, [place] [address] [address] Apr, Other chronic pain G89.29 ; Generalized anxiety disorder F41.1 ; Cervicalgia M54.2 and Controlled substance agreement signed Z79.899 [facility] [address] [place] [address] Mar, Abdominal pain R10.9 and Vir al gastroenteritis A08.4 [facility] [address] [address] Mar, [facility] [address] [address] Mar, [place] [address] [address] Mar, DM (diabetes mellitus) with complication s E11.8 ; Type 2 diabetes mellitus with hyperglycemia E11.65 ; correction current use of insulin Z79.4 ; Essential hypertension I10 ; Bronchitis J40 ; Major depressive disorder, recurrent episode, moderate F33.1 ; Hyperlipidemia, unspecified hyperlipidemia type E78.5 ; Tobacco abuse Z72.0 ; Tobacco abuse counseling Z71.6 ; History of CVA with residual deficit I69.30 ; Gastroesophageal reflux disease, esophagitis presence not specified K21.9 and 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 [place] [address] [address] Mar, [place] [address] [address] Mar, DM (diabetes mellitus) with complication s E11.8 ; Abnormal lung sounds R09.89 ; Bronchitis J40 and Hyperlipidemia, unspecified hyperlipidemia type E78.5 [facility] [address] [facility] [id number] [address] [place] [address] Mar, URI, acute J06.9 [place] [address] [address] Mar, [place] [address] [address] Mar, DM (diabetes mellitus) with complication s E11.8 [place] [address] [address] Mar, Other chronic pain G89.29 and Generalize d anxiety disorder F41.1 [place] [address] [address] Feb, [address] [address] Feb, Mass of left lung R91.8 and Cervicalgia M54.2 [place] [address] [address] Feb, [facility] [address] [address] Feb, [facility] [address] [address] Feb, Cough R05 and Bronchitis J40 [facility] [address] [place] [address] Feb, Acute nasopharyngitis J00 an d Bronchitis J40 [place] [address] [address] Feb, Other chronic pain G89.29 and Generalize d anxiety disorder F41.1 [place] [address] [address] Jan, Encounter for immunization Z23 [facility] [address] [address] Jan, [facility] [address] [address] 18 Jan, [address] [address] 16 Jan, 2017 Canker sores oral K12.[address] [address] 14 Jan, 2017 [place] [address] [address] 07 Jan, 2017 Other chronic pain G89.29 and Generalize d anxiety disorder F41.1 [place] [address] [address] 06 Jan, 2017 Cough R05 and Bronchitis J40 [facility] [address] [place] [address] Jan, Bronchitis J40 [place] [address] [address] Dec, Vitamin D deficiency E55.9 [place] [address] [address] Dec, DM (diabetes mellitus) with complication s E11.8 [place] [address] [address] Dec, DM (diabetes mellitus) with complication s E11.8 and Vitamin D deficiency E55.9 [place] [address] [address] 10 Dec, 2016 DM (diabetes mellitus) with complication s E11.8 ; Essential hypertension I10 ; Hyperlipidemia, unspecified hyperlipidemia type E78.5 ; Vitamin D deficiency E55.9 ; Gastroesophageal reflux disease, esophagitis presence not specified K21.9 ; 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 ; Other chronic pain G89.29 ; Encounter for immunization Z23 and Generalized anxiety disorder F41.1 [place] [address] [address] 12 Nov, 2016 History of CVA with residual deficit I69 .30 [place] [address] [address] Nov, DM (diabetes mellitus) with complication s E11.8 [place] [address] [address] 06 Nov, 2016 Left otitis media with effusion H65.92 ; Bronchitis J40 and Canker sores oral K12.0 [place] [address] [address] Oct, [place] [address] [address] Oct, DM (diabetes mellitus) with complication s E11.8 [place] [address] [address] Oct, [address] [address] Sep, DM (diabetes mellitus) with complication s E11.8 [place] [address] [address] Sep, DM (diabetes mellitus) with complication s E11.8 ; Essential hypertension I10 ; Gastroesophageal reflux disease, esophagitis presence not specified K21.9 ; Hyperlipidemia, unspecified hyperlipidemia type E78.5 ; Tobacco abuse Z72.0 ; Vitamin D deficiency E55.9 ; History of CVA with residual deficit I69.30 and Seasonal allergic rhinitis due to pollen J30.1 [facility] [address] [address] Sep, [facility] [address] [address] Aug, [facility] [address] [facility] [id number] [address] [place] [address] Aug, Dysuria R30.0 ; Acute cystit is with hematuria N30.01 and Middle ear effusion, right H65.91 [place] [address] [address] Aug, Other complicated headache syndrome G44. 59 [place] [address] [address] Aug, DM (diabetes mellitus) with complication s E11.8 [place] [address] [address] 14 Aug, 2016 Dysuria R30.0 [place] [address] [address] Aug, Dysuria R30.0 [place] [address] [address] Aug, [place] [address] [address] July, [place] [address] [address] July, [place] [address] [address] July, DM (diabetes mellitus) with complication s E11.8 [place] [address] [address] July, Other complicated headache syndrome G44. 59 [facility] [address] [address] July, [facility] [address] [place] [id number] [address] [place] [id number] July, Dysuria R30.0 and Acute cyst itis with hematuria N30.01 [place] [address] [address] July, [place] [address] [address] July, Other complicated headache syndrome G44. 59 [facility] [address] [place] [id number] [place] [phone] Jun, Exposure to strep throat Z20 .818 and Acute upper respiratory infection, unspecified J06.9 [place] [address] [address] Jun, [place] [address] [address] Jun, DM (diabetes mellitus) with complication s E11.8 and Gastroesophageal reflux disease, esophagitis presence not specified K21.9 [place] [address] [address] Jun, [place] [address] [address] Jun, Dizziness R42 [facility] [address] [place] [id number] [address] [place] [address] Jun, [place] [address] [address] Jun, [facility] [address] [place] [id number] [place] [address] May, Seasonal allergic rhinitis, unspecified allergic rhinitis trigger J30.2 [place] [address] [address] May, [facility] [address] [address] May, DM (diabetes mellitus) with complication s [...] Seasonal allergic rhinitis due to pollen J30.1 [place] [address] [address] May, Gastroesophageal reflux disease, esophag itis presence not specified K21.9 [place] [address] [address] May, [place] [address] [address] Apr, [place] [address] [address] Apr, [place] [address] [address] Mar, [place] [address] [address] Mar, [place] [address] [address] Mar, [facility] [address] [address] Mar, [facility] [address] [address] Feb, [place] [address] [address] Feb, [facility] [address] [address] Feb, [place] [address] [address] Feb, Major depressive disorder, recurrent epi sode, moderate F33.1 ; Generalized anxiety disorder F41.1 ; Essential hypertension I10 ; DM (diabetes mellitus) with complications E11.8 ; Hyperlipidemia, unspecified hyperlipidemia type E78.5 ; 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 and Gastroesophageal reflux disease, esophagitis presence not specified K21.9 [facility] [address] [place] [id number] [address] [address] Feb, Other viral agents as the ca use of diseases classified elsewhere B97.89 and Acute upper respiratory infection, unspecified J06.9 [place] [address] [address] Jan, [place] [address] [address] Jan, [facility] [address] [place] [place] [id number] [address] [address] Jan, Acute bronchitis, unspecifie d organism J20.9 [place] [address] [address] Jan, [place] [address] [address] Jan, History of CVA with residual deficit I69 .30 [place] [address] [address] Jan, [place] [address] [address] Jan, Acute bronchitis, unspecified organism J 20.9 [place] [address] [address] Jan, [place] [address] [address] Dec, History of CVA with residual deficit I69 .30 [place] [address] [address] Dec, [facility] [address] [address] Dec, Other chronic pain G89.29 ; DM (diabetes mellitus) with complications E11.8 and History of CVA with residual deficit I69.[address] [address] Nov, Major depressive disorder, recurrent epi sode, moderate F33.1 ; Irregular heart rhythm I49.9 ; Essential hypertension I10 ; History of CVA with residual deficit I69.30 ; DM (diabetes mellitus) with complications E11.8 ; Gastroesophageal reflux disease, esophagitis presence not specified K21.9 ; Hyperlipidemia, unspecified hyperlipidemia type E78.5 ; 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 ; Other chronic pain G89.29 and Generalized anxiety disorder F41.[address] [address] Oct, Generalized anxiety disorder F41.1 ; Inocente or depressive disorder, recurrent episode, moderate F33.1 ; Essential hypertension I10 ; History of CVA with residual deficit I69.30 ; DM (diabetes mellitus) with complications E11.8 ; Gastroesophageal reflux disease, esophagitis presence not specified K21.9 ; Hyperlipidemia, unspecified hyperlipidemia type E78.5 ; Other chronic pain G89.29 and Bacterial conjunctivitis of left eye H10.[address] [address] Sep, Chronic pain syndrome G89.4 and DM (diab etes mellitus) with complications E11.[address] [address] Sep, Irregular heart rhythm I49.9 ; Routine h ealth maintenance Z00.00 ; Essential hypertension I10 ; History of CVA with residual deficit I69.30 ; Gastroesophageal reflux disease, esophagitis presence not specified K21.9 ; DM (diabetes mellitus) with complications E11.8 ; Hyperlipidemia, unspecified hyperlipidemia type E78.5 and Other complicated headache syndrome G44.[address] [address] Jun, [address] [id number] [place] [address] 13 Jun, 2014 [facility] [address] [facility] [id number] [place] [address] Aug, [facility] [address] [facility] [id number] [place] [address] Jun, IMMUNIZATIONS No Known Immunizations SOCIAL HISTORY Never Assessed REASON FOR VISIT Medication question PLAN OF CARE VITAL SIGNS MEDICATIONS Unknown Medications RESULTS No Results PROCEDURES No Known procedures INSTRUCTIONS MEDICATIONS ADMINISTERED No Known Medications MEDICAL (GENERAL) HISTORY Type Description Date Medical History diabetes mellitus Medical History hyperlipidemia Medical History hypertension Medical History Anxiety disorder Medical History Blood Clotting Disorder- Dr Galvan at [facility] Medical History Possible Anemia (currently u nder work up) - Dr Galvan [facility] Medical History irregular heart beat-sees dr. [...] Has been hospitalized at then transfered to [facility]. 2014 Hospitalization History Child Hospitalization History abd pain and shakiness - [facility] ED visi [place] 03/12/17 Hospitalization History [facility] ED for URI 04/16/17 Hospitalization History via [facility] 08/16/17 Hospitalization History ER 11/2017
--- OUTSIDE RECORDS SUMMARY | 2019-06-03 16:40 | XMS REPORT | Continuity of Care Document ---
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 AMELIA WRIGHT, PASTOR Blank Ot 782.3 EDEMA 09/10/2015 AMELIA WRIGHT, PASTOR Blank Ot 785.0 TACHYCARDIA NOS 09/10/2015 AMELIA WRIGHT, PASTOR Blank Ot 786.5 0 CHEST PAIN NOS 09/10/2015 SULEMA HUDSON MD Ot 397.0 TRICUSPID VALVE DISEASE 09/10/2015 SULEMA HUDSON MD Ot 401.9 HYPERTENSION NOS 09/10/2015 ADINA HUDSON MDELAN Ot 424.0 MITRAL VALVE DISORDER 09/10/2015 SULEMA HUDSON MD Ot 786.50 CHEST PAIN NOS 09/10/2015 SULEMA HUDSON MD Ot 401.9 HYPERTENSION NOS 09/10/2015 SULEMA HUDSON MD Ot 786.50 CHEST PAIN NOS 09/10/2015 PASTOR CISNEROS MD Ot 251.2 HYPOGLYCEMIA NOS 09/10/2015 PASTOR CISNEROS MD Ot 790.2 9 OTHER ABNORMAL GLUCOSE 09/10/2015 PASTOR CISNEROS MD Ot 780.3 9 OTHER CONVULSIONS 09/10/2015 PASTOR CISNEROS MD Ot 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 9 HYPERTENSION NOS 09/10/2015 YUKO GARRETT MD Ot 785. 0 TACHYCARDIA NOS 09/10/2015 YUKO GARRETT MD Ot 785. 1 PALPITATIONS 09/10/2015 YUKO GARRETT MD Ot 786. 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 2 PALPITATIONS 09/10/2015 YUKO GARRETT MD Ot R06. 02 SHORTNESS OF BREATH 09/10/2015 GERRY WRIGHT, YUKO Blank Ot R07. 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 09/10/2015 PASTOR CISNEROS MD Ot E11.9 TYPE 2 DIABETES MELLITUS WITHOUT COMPLIC 09/10/2015 PASTOR CISNEROS MD Ot E66.9 OBESITY, UNSPECIFIED 09/10/2015 PASTOR CISNEROS MD Ot I73.9 PERIPHERAL VASCULAR DISEASE, UNSPECIFIED 09/10/2015 PASTOR CISNEROS MD Ot Z86.7 3 PRSNL HX OF TIA (TIA), AND CEREB INFRC W 09/10/2015 PASTOR CISNEROS MD Ot E11.9 TYPE 2 DIABETES MELLITUS WITHOUT COMPLIC 09/10/2015 PASTOR CISNEROS MD Ot M79.6 62 PAIN IN LEFT LOWER LEG 09/10/2015 PASTOR [...] (CURRENT) USE OF ANTITHROMBOTI 09/10/2015 GILBERT GOMEZ MD Ot Z79.82 JAIL (CURRENT) USE OF ASPIRIN 09/10/2015 AKBAR EVANS MD Ot D72.829 ELEVATED WHITE BLOOD CELL COUNT, UNSPECI 09/10/2015 AKBAR EVANS MD Ot F17.210 NICOTINE DEPENDENCE, CIGARETTES, UNCOMPL 09/10/2015 AKBAR EVANS MD Ot R11.0 NAUSEA 09/10/2015 BRUEGGEMANN MD, AKBAR T Ot R19.7 DIARRHEA, UNSPECIFIED 09/10/2015 AKBAR EVANS MD Ot R42 DIZZINESS AND GIDDINESS 09/10/2015 NATHAN WRIGHT, AKBAR Solis Ot R74.8 ABNORMAL LEVELS OF OTHER SERUM ENZYMES 2015 JOSE ADLER DO Ot E87.6 HYPOKALEMIA 2015 JOSE ADLER DO Ot F41.9 ANXIETY DISORDER, UNSPECIFIED 2015 JOSE ADLER DO Ot R4 2 DIZZINESS AND GIDDINESS 09/15/2015 JOSE ADLER DO Ot E87.6 HYPOKALEMIA 09/15/2015 JOSE ADLER DO, Ot F41.9 ANXIETY DISORDER, UNSPECIFIED 09/15/2015 JOSE ADLER DO, Ot R4 2 DIZZINESS AND GIDDINESS 10/02/2015 GILBERT GOMEZ MD [...] 10/02/2015 GILBERT GOMEZ MD Ot Z79.899 OTHER JAIL (CURRENT) DRUG THERAPY 10/05/2015 JOSE ADLER DO Ot E87.6 HYPOKALEMIA 10/05/2015 JOSE ADLER DO Ot F41.9 ANXIETY DISORDER, UNSPECIFIED 10/05/2015 JOSE ADLER DO Ot R4 2 DIZZINESS AND GIDDINESS 10/29/2015 GILBERT GOMEZ MD [...] 10/29/2015 GILBERT GOMEZ MD Ot Z79.899 OTHER JAIL [...] I69.998 OTHER SEQUELAE FOLLOWING UNSPECIFIED CER 10/30/2015 GILBRET GOMEZ MD Ot M62.81 MUSCLE WEAKNESS (GENERALIZED) [...] 11/04/2015 GILBERT GOMEZ MD Ot Z79.899 OTHER A P SUPERVISOR (CURRENT) DRUG THERAPY 12/11/2015 GILBERT GOMEZ MD Ot 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) THROMBOCYTHEMIA 12/11/2015 GILBERT GOMEZ MD Ot D72.829 ELEVATED WHITE [...] 12/11/2015 GILBERT GOMEZ MD Ot Z79.899 OTHER A P SUPERVISOR (CURRENT) DRUG THERAPY 12/19/2015 GILBERT GOMEZ MD, Ot 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) THROMBOCYTHEMIA 12/19/2015 GILBERT [...] 12/19/2015 GILBERT GOMEZ MD Ot Z79.899 OTHER A P SUPERVISOR (CURRENT) DRUG THERAPY 01/02/2016 GILBERT GOMEZ MD Ot 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) THROMBOCYTHEMIA 01/02/2016 GILBERT GOMEZ MD Ot D72.829 ELEVATED WHITE BLOOD CELL COUNT, UNSPECI 01/02/2016 GILBERT GOMEZ MD Ot E78.5 HYPERLIPIDEMIA, UNSPECIFIED 01/02/2016 GILBERT GOMEZ MD Ot I10 ESSENTIAL (PRIMARY) HYPERTENSION 01/02/2016 GILBERT GOMEZ MD Ot 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 01/02/2016 GLIBERT GOMEZ MD Ot I69.998 OTHER SEQUELAE FOLLOWING UNSPECIFIED CER 01/02/2016 GILBERT GOMEZ MD Ot M62.81 MUSCLE WEAKNESS (GENERALIZED) 01/02/2016 GILBERT GOMEZ MD Ot R00.0 TACHYCARDIA, UNSPECIFIED 01/02/2016 GILBERT GOMEZ MD Ot Z79.899 OTHER A P SUPERVISOR (CURRENT) DRUG THERAPY 03/17/2016 GILBERT GOMEZ MD [...] 03/17/2016 GILBERT GOMEZ MD Ot Z79.899 OTHER A P SUPERVISOR (CURRENT) DRUG THERAPY 03/23/2016 Ot 272.4 HYPE RLIPIDEMIA NEC/NOS 03/23/2016 Ot 401.9 HYPE RTENSION NOS 03/23/2016 Ot V58.69 OTH MED,LT,CURRENT USE 03/23/2016 Ot 530.81 ESO PHAGEAL REFLUX 03/23/2016 Ot 541 APPEND ICITIS NOS 03/23/2016 Ot 787.03 VOM ITING ALONE 03/23/2016 Ot 789.06 ABD OMINAL PAIN, EPIGASTRIC 03/23/2016 Ot 789.09 ABD OMINAL PAIN, OTHER SPECIFIED SITE 03/23/2016 Ot 721.0 CERV ICAL SPONDYLOSIS 03/23/2016 Ot 721.2 THOR ACIC SPONDYLOSIS 03/23/2016 Ot 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 03/23/[address] PAIN NEC 03/23/2016 Ot 530.81 ESO PHAGEAL REFLUX 03/23/2016 Ot 558.9 ANGELA NF GASTROENTERIT NEC 03/23/2016 Ot 617.9 ENDO METRIOSIS NOS 03/23/2016 Ot 620.2 OVAR ERAN CYST NEC/NOS 03/23/2016 Ot 625.9 FEM GENITAL SYMPTOMS NOS 03/23/2016 Ot 789.00 ABD OMINAL PAIN, UNSPECIFIED SITE 03/23/2016 Ot 719.43 RENAY NT PAIN- FOREARM 03/23/2016 Ot 719.46 RENAY NT PAIN-L/LEG 03/23/2016 Ot 784.0 HEAD ACHE 03/23/2016 Ot 847.0 SPRA IN OF NECK 03/23/2016 Ot E000.8 OTH ER EXTERNAL CAUSE STATUS 03/23/2016 Ot E819.9 TRA FFIC ACC NOS- PERS NOS 03/23/2016 Ot V76.12 OTH SCREEN MAMMO- MALIGN NEOPLASM OF MIKE 03/23/2016 Ot 338.29 OTH ER CHRONIC PAIN 03/23/2016 Ot 626.4 IRRE GULAR MENSTRUATION 03/23/2016 Ot 627.2 SYMP T MENOPAUSE OR FEMALE CLIMACTERIC ST 03/23/2016 Ot 704.00 WILMAN PECIA NOS 03/23/2016 Ot 401.9 HYPE RTENSION NOS 03/23/2016 Ot 785.1 PALP ITATIONS 03/23/2016 Ot 786.09 RES PIRATORY ABNORM NEC 03/23/[address] PAIN NOS 03/23/2016 Ot 368.9 VISU AL DISTURBANCE NOS 03/23/2016 Ot 401.9 HYPE RTENSION NOS 03/23/2016 Ot 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 03/23/2016 Ot 780.39 OTH ER CONVULSIONS 03/23/2016 Ot 794.09 ABN WOOD CLUB NECK WHIPPER FUNCT STUDY NEC 03/23/2016 Ot 794.8 ABN LIVER FUNCTION STUDY 03/23/2016 Ot 368.9 VISU AL DISTURBANCE NOS 03/23/2016 Ot 780.2 SYNC OPE AND COLLAPSE 03/23/2016 Ot 780.79 OTH MALAISE FATIGUE 03/23/2016 Ot 786.2 COUGH 03/23/[address] PAIN NOS 03/23/2016 AMELIA WRIGHT, PASTOR Blank Ot 794.0 9 ABN WOOD CLUB NECK WHIPPER FUNCT STUDY NEC 03/23/2016 AMELIA WRIGHT, PASTOR Blank Ot 783.1 ABNORMAL WEIGHT GAIN 03/23/2016 AMELIA WRIGHT, PASTOR Blank Ot 787.3 FLATUL/ERUCTAT/GAS PAIN 03/23/2016 PASTOR CISNEROS MD Ot 789.0 9 ABDOMINAL PAIN, OTHER SPECIFIED SITE 03/23/2016 AMELIA WRIGHT, PASTOR J Ot 789.1 HEPATOMEGALY 03/23/2016 PASTOR CISNEROS MD Ot 723.1 CERVICALGIA 03/23/2016 PASTOR CISNEROS MD Ot 729.5 PAIN IN LIMB 03/23/2016 PASTOR CISNEROS MD Ot 719.4 0 JOINT PAIN-UNSPEC 03/23/2016 PASTOR CISNEROS MD Ot 780.7 9 OTH MALAISE FATIGUE 03/23/2016 PASTOR CISNEROS MD Ot 782.3 EDEMA 03/23/2016 PASTOR CISNEROS MD Ot 785.0 TACHYCARDIA NOS 03/23/2016 PASTOR CISNEROS MD J Ot 719.4 0 JOINT PAIN-UNSPEC 03/23/2016 PASTOR CISNEROS MD Ot 780.7 9 OTH MALAISE FATIGUE 03/23/2016 PASTOR CISNEROS MD Ot 782.3 EDEMA 03/23/2016 PASTOR CISNEROS MD Ot 785.0 TACHYCARDIA NOS 03/23/2016 AMELIA WRIGHT, PASTOR J Ot 305.1 TOBACCO USE DISORDER 03/23/2016 PASTOR CISNEROS MD Ot 401.9 HYPERTENSION NOS 03/23/2016 PASTOR CISNEROS MD Ot 428.0 CONGESTIVE HEART FAILURE NOS 03/23/2016 PASTOR CISNEROS MD Ot 782.3 EDEMA 03/23/2016 PASTOR CISNEROS MD Ot 785.0 TACHYCARDIA NOS 03/23/2016 PASTOR CISNEROS MD Ot 786.5 0 CHEST PAIN NOS 03/23/2016 SULEMA HUDSON MD Ot 397.0 TRICUSPID VALVE DISEASE 03/23/2016 SULEMA HUDSON MD Ot 401.9 HYPERTENSION NOS 03/23/2016 ALBERTA HUDSON MDSEELAN Ot 424.0 MITRAL VALVE DISORDER 03/23/2016 SULEMA HUDSON MD Ot 786.50 CHEST PAIN NOS 03/23/2016 SULEMA HUDSON MD Ot 401.9 HYPERTENSION NOS 03/23/2016 SULEMA HUDSON MD Ot 786.50 CHEST PAIN NOS 03/23/2016 PASTOR CISNEROS MD Ot 251.2 HYPOGLYCEMIA NOS 03/23/2016 PASTOR CISNEROS MD Ot 790.2 9 OTHER ABNORMAL GLUCOSE 03/23/2016 PASTOR CISNEROS MD Ot 780.3 9 OTHER CONVULSIONS 03/23/2016 PASTOR CISNEROS MD Ot 348.8 9 OTHER CONDITIONS OF BRAIN 03/23/2016 PASTOR CISNEROS MD Ot 780.9 7 ALTERED MENTAL STATUS 03/23/2016 PASTOR CISNEROS MD Ot 781.9 9 NERV/MUSCULOSKEL SYS SYMP NEC 03/23/2016 PASTOR CISNEROS MD Ot 530.8 1 ESOPHAGEAL REFLUX 03/23/2016 PASTOR CISNEROS MD Ot 553.3 DIAPHRAGMATIC HERNIA 03/23/2016 PASTOR CISNEROS MD Ot 787.2 0 DYSPHAGIA, UNSPECIFIED 03/23/2016 YUKO GARRETT MD Ot 401. 9 HYPERTENSION NOS 03/23/2016 YUKO GARRETT MD Ot 785. 0 TACHYCARDIA NOS 03/23/2016 YUKO GARRETT MD Ot 785. 1 PALPITATIONS 03/23/2016 YUKO GARRETT MD Ot 786. 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 2 PALPITATIONS 03/23/2016 YUKO GARRETT MD Ot R06. 02 SHORTNESS OF BREATH 03/23/2016 YUKO GARRETT MD Ot R07. 89 OTHER CHEST PAIN 03/23/2016 PASTOR CISNEROS MD Ot E11.9 TYPE 2 DIABETES MELLITUS WITHOUT COMPLIC 03/23/2016 PASTOR CISNEROS MD Ot Z79.4 A P SUPERVISOR (CURRENT) USE OF INSULIN 03/23/2016 PASTOR CISNEROS MD Ot E11.9 TYPE 2 DIABETES MELLITUS WITHOUT COMPLIC 03/23/2016 PASTOR CISNEROS MD Ot E66.9 OBESITY, UNSPECIFIED 03/23/2016 PASTOR CISNEROS MD Ot I73.9 PERIPHERAL VASCULAR DISEASE, UNSPECIFIED 03/23/2016 PASTOR CISNEROS MD Ot Z86.7 3 PRSNL HX OF TIA (TIA), AND CEREB INFRC W 03/23/2016 PASTOR CISNEROS MD Ot E11.9 TYPE 2 DIABETES MELLITUS WITHOUT COMPLIC 03/23/2016 PASTOR CISNEROS MD Ot M79.6 62 PAIN IN LEFT LOWER LEG 03/23/2016 PASTOR [...] I10 ESSENTIAL (PRIMARY) HYPERTENSION 03/23/2016 GILBERT GOMEZ MD, Ot Z79.02 JAIL (CURRENT) USE OF ANTITHROMBOTI 03/23/2016 GILBERT GOMEZ MD, Ot Z79.82 A P SUPERVISOR (CURRENT) USE OF ASPIRIN 03/23/2016 GILBERT GOMEZ [...] MD Ot M62.81 MUSCLE WEAKNESS (GENERALIZED) 03/23/2016 GLIBERT GOMEZ MD Ot R00.0 TACHYCARDIA, UNSPECIFIED 03/23/2016 GILBERT GOMEZ MD Ot Z79.899 OTHER JAIL (CURRENT) DRUG THERAPY 06/15/2016 GILBERT GOMEZ MD Ot 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) THROMBOCYTHEMIA 06/15/2016 GILBERT GOMEZ MD, Ot D72.829 ELEVATED WHITE [...] JAIL (CURRENT) DRUG THERAPY 06/30/2016 Ot 530.81 ESO PHAGEAL REFLUX 06/30/2016 Ot 541 APPEND ICITIS NOS 06/30/2016 Ot 787.03 VOM ITING ALONE 06/30/2016 Ot 789.06 ABD OMINAL PAIN, EPIGASTRIC 06/30/2016 Ot 789.09 ABD OMINAL PAIN, OTHER SPECIFIED SITE 06/30/2016 Ot 721.0 CERV ICAL SPONDYLOSIS 06/30/2016 Ot 721.2 THOR ACIC SPONDYLOSIS 06/30/2016 Ot 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 06/30/[address] PAIN NEC 06/30/2016 Ot 530.81 ESO PHAGEAL REFLUX 06/30/2016 Ot 558.9 ANGELA NF GASTROENTERIT NEC 06/30/2016 Ot 617.9 ENDO METRIOSIS NOS 06/30/2016 Ot 620.2 OVAR ERAN CYST NEC/NOS 06/30/2016 Ot 625.9 FEM GENITAL SYMPTOMS NOS 06/30/2016 Ot 789.00 ABD OMINAL PAIN, UNSPECIFIED SITE 06/30/2016 Ot 719.43 RENAY NT PAIN- FOREARM 06/30/2016 Ot 719.46 RENAY NT PAIN-L/LEG 06/30/2016 Ot 784.0 HEAD ACHE 06/30/2016 Ot 847.0 SPRA IN OF NECK 06/30/2016 Ot E000.8 OTH ER EXTERNAL CAUSE STATUS 06/30/2016 Ot E819.9 TRA FFIC ACC NOS- PERS NOS 06/30/2016 Ot V76.12 OTH SCREEN MAMMO- MALIGN NEOPLASM OF MIKE 06/30/2016 Ot 338.29 OTH ER CHRONIC PAIN 06/30/2016 Ot 626.4 IRRE GULAR MENSTRUATION 06/30/2016 Ot 627.2 SYMP T MENOPAUSE OR FEMALE CLIMACTERIC ST 06/30/2016 Ot 704.00 WILMAN PECIA NOS 06/30/2016 Ot 401.9 HYPE RTENSION NOS 06/30/2016 Ot 785.1 PALP ITATIONS 06/30/2016 Ot 786.09 RES PIRATORY ABNORM NEC 06/30/[address] PAIN NOS 06/30/2016 Ot 368.9 VISU AL DISTURBANCE NOS 06/30/2016 Ot 401.9 HYPE RTENSION NOS 06/30/2016 Ot 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 06/30/2016 Ot 780.39 OTH ER CONVULSIONS 06/30/2016 Ot 794.09 ABN WOOD CLUB NECK WHIPPER FUNCT STUDY NEC 06/30/2016 Ot 794.8 ABN LIVER FUNCTION STUDY 06/30/2016 Ot 368.9 VISU AL DISTURBANCE NOS 06/30/2016 Ot 780.2 SYNC OPE AND COLLAPSE 06/30/2016 Ot 780.79 OTH MALAISE FATIGUE 06/30/2016 Ot 786.2 COUGH 06/30/[address] PAIN NOS 06/30/2016 AMELIA WRIGHT, PASTOR Blank Ot 794.0 9 ABN WOOD CLUB NECK WHIPPER FUNCT STUDY NEC 06/30/2016 AMELIA WRIGHT, PASTOR Blank Ot 783.1 ABNORMAL WEIGHT GAIN 06/30/2016 AMELIA WRIGHT, PASTOR Blank Ot 787.3 FLATUL/ERUCTAT/GAS PAIN 06/30/2016 AMELIA WRIGHT, PASTOR Blank Ot 789.0 9 ABDOMINAL PAIN, OTHER SPECIFIED SITE 06/30/2016 AMELIA WRIGHT, PASTOR Blank Ot 789.1 HEPATOMEGALY 06/30/2016 AMELIA WRIGHT, PASTOR Blank Ot 723.1 CERVICALGIA 06/30/2016 AMELIA WRIGHT, PASTOR Blank Ot 729.5 PAIN IN LIMB 06/30/2016 AMELIA WRIGHT, PASTOR Blank Ot 719.4 0 JOINT PAIN-UNSPEC 06/30/2016 AMELIA WRIGHT, PASTOR Blank Ot 780.7 9 OTH MALAISE FATIGUE 06/30/2016 PASTOR CISNEROS MD Ot 782.3 EDEMA 06/30/2016 AMELIA WRIGHT, PASTOR Blank Ot 785.0 TACHYCARDIA NOS 06/30/2016 PASTOR CISNEROS MD Ot 719.4 0 JOINT PAIN-UNSPEC 06/30/2016 PASTOR CISNEROS MD Ot 780.7 9 OTH MALAISE FATIGUE 06/30/2016 PASTOR CISNEROS MD [...] TACHYCARDIA NOS 06/30/2016 PASTOR CISNEROS MD Ot 786.5 0 CHEST PAIN NOS 06/30/2016 SULEMA HUDSON MD [...] HYPOGLYCEMIA NOS 06/30/2016 PASTOR CISNEROS MD Ot 790.2 9 OTHER ABNORMAL GLUCOSE 06/30/2016 PASTOR CISNEROS MD Ot 780.3 9 OTHER CONVULSIONS 06/30/2016 PASTOR CISNEROS MD Ot 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 9 HYPERTENSION NOS 06/30/2016 YUKO GARRETT MD Ot 785. 0 TACHYCARDIA NOS 06/30/2016 YUKO GARRETT MD Ot 785. 1 PALPITATIONS 06/30/2016 YUKO GARRETT MD Ot 786. 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 2 PALPITATIONS 06/30/2016 YUKO GARRETT MD Ot R06. 02 SHORTNESS OF BREATH 06/30/2016 YUKO GARRETT MD Ot R07. 89 OTHER CHEST PAIN 06/30/2016 PASTOR CISNEROS MD Ot E11.9 TYPE 2 DIABETES MELLITUS WITHOUT COMPLIC 06/30/2016 PASTOR CISNEROS MD Ot Z79.4 A P SUPERVISOR (CURRENT) USE OF INSULIN 06/30/2016 PASTOR CISNEROS MD Ot E11.9 TYPE 2 DIABETES MELLITUS WITHOUT COMPLIC 06/30/2016 PASTOR CISNEROS MD Ot E66.9 OBESITY, UNSPECIFIED 06/30/2016 PASTOR CISNEROS MD Ot I73.9 PERIPHERAL VASCULAR DISEASE, UNSPECIFIED 06/30/2016 PASTOR CISNEROS MD Ot Z86.7 3 PRSNL HX OF TIA (TIA), AND CEREB INFRC W 06/30/2016 PASTOR CISNEROS MD Ot E11.9 TYPE 2 DIABETES MELLITUS WITHOUT COMPLIC 06/30/2016 PASTOR CISNEROS MD Ot M79.6 62 PAIN IN LEFT LOWER LEG 06/30/2016 PASTOR [...] ANTITHROMBOTI 06/30/2016 GILBERT GOMEZ MD Ot Z79.82 A P SUPERVISOR (CURRENT) USE OF ASPIRIN 06/30/2016 GILBERT GOMEZ [...] JAIL (CURRENT) DRUG THERAPY 06/30/2016 Ot 530.81 ESO PHAGEAL REFLUX 06/30/2016 Ot 541 APPEND ICITIS NOS 06/30/2016 Ot 787.03 VOM ITING ALONE 06/30/2016 Ot 789.06 ABD OMINAL PAIN, EPIGASTRIC 06/30/2016 Ot 789.09 ABD OMINAL PAIN, OTHER SPECIFIED SITE 06/30/2016 Ot 721.0 CERV ICAL SPONDYLOSIS 06/30/2016 Ot 721.2 THOR ACIC SPONDYLOSIS 06/30/2016 Ot 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 06/30/[address] PAIN NEC 06/30/2016 Ot 530.81 ESO PHAGEAL REFLUX 06/30/2016 Ot 558.9 ANGELA NF GASTROENTERIT NEC 06/30/2016 Ot 617.9 ENDO METRIOSIS NOS 06/30/2016 Ot 620.2 OVAR ERAN CYST NEC/NOS 06/30/2016 Ot 625.9 FEM GENITAL SYMPTOMS NOS 06/30/2016 Ot 789.00 ABD OMINAL PAIN, UNSPECIFIED SITE 06/30/2016 Ot 719.43 RENAY NT PAIN- FOREARM 06/30/2016 Ot 719.46 RENAY NT PAIN-L/LEG 06/30/2016 Ot 784.0 HEAD ACHE 06/30/2016 Ot 847.0 SPRA IN OF NECK 06/30/2016 Ot E000.8 OTH ER EXTERNAL CAUSE STATUS 06/30/2016 Ot E819.9 TRA FFIC ACC NOS- PERS NOS 06/30/2016 Ot V76.12 OTH SCREEN MAMMO- MALIGN NEOPLASM OF MIKE 06/30/2016 Ot 338.29 OTH ER CHRONIC PAIN 06/30/2016 Ot 626.4 IRRE GULAR MENSTRUATION 06/30/2016 Ot 627.2 SYMP T MENOPAUSE OR FEMALE CLIMACTERIC ST 06/30/2016 Ot 704.00 WILMAN PECIA NOS 06/30/2016 Ot 401.9 HYPE RTENSION NOS 06/30/2016 Ot 785.1 PALP ITATIONS 06/30/2016 Ot 786.09 RES PIRATORY ABNORM NEC 06/30/[address] PAIN NOS 06/30/2016 Ot 368.9 VISU AL DISTURBANCE NOS 06/30/2016 Ot 401.9 HYPE RTENSION NOS 06/30/2016 Ot 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 06/30/2016 Ot 780.39 OTH ER CONVULSIONS 06/30/2016 Ot 794.09 ABN WOOD CLUB NECK WHIPPER FUNCT STUDY NEC 06/30/2016 Ot 794.8 ABN LIVER FUNCTION STUDY 06/30/2016 Ot 368.9 VISU AL DISTURBANCE NOS 06/30/2016 Ot 780.2 SYNC OPE AND COLLAPSE 06/30/2016 Ot 780.79 OTH MALAISE FATIGUE 06/30/2016 Ot 786.2 COUGH 06/30/[address] PAIN NOS 06/30/2016 AMELIA WRIGHT, PASTOR Blank Ot 794.0 9 ABN WOOD CLUB NECK WHIPPER FUNCT STUDY NEC 06/30/2016 AMELIA WRIGHT, PASTOR Blank Ot 783.1 ABNORMAL WEIGHT GAIN 06/30/2016 PASTOR CISNEROS MD Ot 787.3 FLATUL/ERUCTAT/GAS PAIN 06/30/2016 AMELIA WRIGHT, PASTOR Blank Ot 789.0 9 ABDOMINAL PAIN, OTHER SPECIFIED SITE 06/30/2016 PASTOR CISNEROS MD Ot 789.1 HEPATOMEGALY 06/30/2016 PASTOR CISNEROS MD Ot 723.1 CERVICALGIA 06/30/2016 PASTOR CISNEROS MD Ot 729.5 PAIN IN LIMB 06/30/2016 PASTOR CISNEROS MD Ot 719.4 0 JOINT PAIN-UNSPEC 06/30/2016 AMELIA WRIGHT, PASTOR Blank Ot 780.7 9 OTH MALAISE FATIGUE 06/30/2016 PASTOR CISNEROS MD Ot 782.3 EDEMA 06/30/2016 PASTOR CISNEROS MD Ot 785.0 TACHYCARDIA NOS 06/30/2016 PASTOR CISNEROS MD Ot 719.4 0 JOINT PAIN-UNSPEC 06/30/2016 PASTOR CISNEROS MD Ot 780.7 9 OTH MALAISE FATIGUE 06/30/2016 PASTOR CISNEROS MD Ot 782.3 EDEMA 06/30/2016 AMELIA WRIGHT, PASTOR Blank Ot 785.0 TACHYCARDIA NOS 06/30/2016 AMELIA WRIGHT, PASTOR Blank Ot 305.1 TOBACCO USE DISORDER 06/30/2016 AMELIA WRIGHT, PASTOR Blank Ot 401.9 HYPERTENSION NOS 06/30/2016 AMELIA WRIGHT, PASTOR Blank Ot 428.0 CONGESTIVE HEART FAILURE NOS 06/30/2016 PASTOR CISNEROS MD Ot 782.3 EDEMA 06/30/2016 PASTOR CISNEROS MD Ot 785.0 TACHYCARDIA NOS 06/30/2016 PASTOR CISNEROS MD Ot 786.5 0 CHEST PAIN NOS 06/30/2016 SULEMA HUDSON MD [...] HYPOGLYCEMIA NOS 06/30/2016 PASTOR CISNEROS MD Ot 790.2 9 OTHER ABNORMAL GLUCOSE 06/30/2016 PASTOR CISNEROS MD Ot 780.3 9 OTHER CONVULSIONS 06/30/2016 PASTOR CISNEROS MD Ot 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 9 HYPERTENSION NOS 06/30/2016 YUKO GARRETT MD Ot 785. 0 TACHYCARDIA NOS 06/30/2016 YUKO GARRETT MD Ot 785. 1 PALPITATIONS 06/30/2016 YUKO GARRETT MD Ot 786. 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 2 PALPITATIONS 06/30/2016 YUKO GARRETT MD Ot R06. 02 SHORTNESS OF BREATH 06/30/2016 YUKO GARRETT MD Ot R07. 89 OTHER CHEST PAIN 06/30/2016 PASTOR CISNEROS MD Ot E11.9 TYPE 2 DIABETES MELLITUS WITHOUT COMPLIC 06/30/2016 PASTOR CISNEROS MD Ot Z79.4 A P SUPERVISOR (CURRENT) USE OF INSULIN 06/30/2016 PASTOR CISNEROS MD Ot E11.9 TYPE 2 DIABETES MELLITUS WITHOUT COMPLIC 06/30/2016 PASTOR CISNEROS MD Ot E66.9 OBESITY, UNSPECIFIED 06/30/2016 PASTOR CISNEROS MD Ot I73.9 PERIPHERAL VASCULAR DISEASE, UNSPECIFIED 06/30/2016 PASTOR CISNEROS MD Ot Z86.7 3 PRSNL HX OF TIA (TIA), AND CEREB INFRC W 06/30/2016 PASTOR CISNEROS MD Ot E11.9 TYPE 2 DIABETES MELLITUS WITHOUT COMPLIC 06/30/2016 PASTOR CISNEROS MD Ot M79.6 62 PAIN IN LEFT LOWER LEG 06/30/2016 PASTOR [...] HYPERTENSION 06/30/2016 GILBERT GOMEZ MD, Ot Z79.02 A P SUPERVISOR (CURRENT) USE OF ANTITHROMBOTI 06/30/2016 GILBERT GOMEZ [...] BLOOD CELL COUNT, UNSPECI 07/09/2016 GILBERT GOMEZ MD Ot E78.5 HYPERLIPIDEMIA, UNSPECIFIED 07/09/2016 GILBERT GOMEZ MD Ot I10 ESSENTIAL (PRIMARY) HYPERTENSION 07/09/2016 GILBERT GOMEZ MD Ot 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 07/09/2016 GILBERT GOMEZ MD Ot I69.998 OTHER SEQUELAE FOLLOWING UNSPECIFIED CER 07/09/2016 GILBERT GOMEZ MD Ot M62.81 MUSCLE WEAKNESS (GENERALIZED) 07/09/2016 GILBERT GOMEZ MD Ot R00.0 TACHYCARDIA, UNSPECIFIED 07/09/2016 GILBERT GOMEZ MD Ot Z79.899 OTHER A P SUPERVISOR (CURRENT) DRUG THERAPY 08/02/2016 GILBERT GOMEZ MD Ot R42 DIZZINESS AND GIDDINESS 08/02/2016 GILBERT GOMEZ MD Ot R51 HEADACHE 08/16/2016 PRISCILLA HUNT Ot E11.9 TYPE 2 DIABETES MELLITUS WITHOUT COMPLIC 08/16/2016 PRISCILLA HUNT Ot F17.210 NICOTINE DEPENDENCE, CIGARETTES, UNCOMPL 08/16/2016 PRISCILLA HUNT Ot I 10 ESSENTIAL (PRIMARY) HYPERTENSION 08/16/2016 PRISCILLA HUNT Ot N30.01 ACUTE CYSTITIS WITH HEMATURIA 08/16/2016 PRISCILLA HUNT Ot R31.0 GROSS HEMATURIA 08/16/2016 PRISCILLA HUNT Ot Z79.02 A P SUPERVISOR (CURRENT) USE OF ANTITHROMBOTI 08/16/2016 PRISCILLA HUNT Ot Z79.82 JAIL (CURRENT) USE OF ASPIRIN 08/16/2016 PRISCILLA HUNT Ot Z79.899 OTHER JAIL (CURRENT) DRUG THERAPY 08/19/2016 PRISCILLA HUNT Ot E11.9 TYPE 2 DIABETES MELLITUS WITHOUT COMPLIC 08/19/2016 PRISCILLA HUNT Ot F17.210 NICOTINE DEPENDENCE, CIGARETTES, UNCOMPL 08/19/2016 PRISCILLA HUNT Ot I 10 ESSENTIAL (PRIMARY) HYPERTENSION 08/19/2016 PRISCILLA HUNT Ot N30.01 ACUTE CYSTITIS WITH HEMATURIA 08/19/2016 PRISCILLA HUNT Ot R31.0 GROSS HEMATURIA 08/19/2016 PRISCILLA HUNT Ot Z79.02 A P SUPERVISOR (CURRENT) USE OF ANTITHROMBOTI 08/19/2016 PRISCILLA HUNT Ot Z79.82 A P SUPERVISOR (CURRENT) USE OF ASPIRIN 08/19/2016 PRISCILLA HUNT Ot Z79.899 OTHER A P SUPERVISOR (CURRENT) DRUG THERAPY 09/03/2016 GILBERT GOMEZ MD [...] 09/12/2016 GILBERT GOMEZ MD Ot Z79.899 OTHER JAIL [...] COMP OF PREG, CHLDBR 11/09/2016 AKBAR EVANS MD Ot Z98.51 TUBAL LIGATION STATUS 11/11/2016 AKBAR [...] OF MALIGNANT NEOPLASM OF 11/11/2016 AKBAR EVANS MD Ot Z82.49 FAMILY HX [...] R51 HEADACHE 12/02/2016 IGOR ARANA MD, Ot D47. 3 ESSENTIAL (HEMORRHAGIC) THROMBOCYTHEMIA 12/02/2016 IGOR ARANA MD, Ot D72.829 ELEVATED WHITE BLOOD CELL COUNT, UNSPECI 12/02/2016 IGOR ARANA MD Ot E78. 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 81 MUSCLE WEAKNESS (GENERALIZED) 12/02/2016 IGOR ARANA MD Ot R00. 0 TACHYCARDIA, UNSPECIFIED 12/02/2016 IGOR ARANA MD Ot Z79.899 OTHER JAIL (CURRENT) DRUG THERAPY 12/21/2016 IGOR ARANA MD, Ot D47. 3 ESSENTIAL (HEMORRHAGIC) THROMBOCYTHEMIA 12/21/2016 IGOR ARANA MD Ot D72.829 ELEVATED WHITE BLOOD CELL COUNT, UNSPECI 12/21/2016 IGOR ARANA MD Ot E78. 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 81 MUSCLE WEAKNESS (GENERALIZED) 12/21/2016 IGOR ARANA MD Ot R00. 0 TACHYCARDIA, UNSPECIFIED 12/21/2016 IGOR ARANA MD, Ot Z79.899 OTHER A P SUPERVISOR (CURRENT) DRUG THERAPY 02/11/2017 IGOR ARANA MD Ot D47. 3 ESSENTIAL (HEMORRHAGIC) THROMBOCYTHEMIA 02/11/2017 IGOR ARANA MD Ot D72.829 ELEVATED WHITE BLOOD CELL COUNT, UNSPECI 02/11/2017 IGOR ARANA MD Ot E78. 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 81 MUSCLE WEAKNESS (GENERALIZED) 02/11/2017 IGOR ARANA MD Ot R00. 0 TACHYCARDIA, UNSPECIFIED 02/11/2017 IGOR ARANA MD, Ot Z79.899 OTHER A P SUPERVISOR (CURRENT) DRUG THERAPY 03/12/2017 PRISCILLA HUNT Ot E11.9 TYPE 2 DIABETES MELLITUS WITHOUT COMPLIC 03/12/2017 PRISCILLA HUNT Ot E86.9 VOLUME DEPLETION, UNSPECIFIED 03/12/2017 PRISCILLA HUNT Ot F17.210 NICOTINE DEPENDENCE, CIGARETTES, UNCOMPL 03/12/2017 PRISCILLA HUNT Ot F41.9 ANXIETY DISORDER, UNSPECIFIED 03/12/2017 PRISCILLA HUNT Ot G43.909 MIGRAINE, UNSP, NOT INTRACTABLE, WITHOUT 03/12/2017 PRISCILLA HUNT Ot I 10 ESSENTIAL (PRIMARY) HYPERTENSION 03/12/2017 PRISCILLA HUNT Ot K21.9 GASTRO-ESOPHAGEAL REFLUX DISEASE WITHOUT 03/12/2017 PRISCILLA HUNT Ot R 42 DIZZINESS AND GIDDINESS 03/12/2017 PRISCILLA HUNT Ot R93.5 ABN FINDINGS ON DX IMAGING OF ABD REGION 03/12/2017 PRISCILLA HUNT Ot Z79.82 JAIL (CURRENT) USE OF ASPIRIN 03/12/2017 PRISCILLA HUNT Ot Z80.0 FAMILY HISTORY OF MALIGNANT NEOPLASM OF 03/12/2017 PRISCILLA HNUT Ot Z82.49 FAMILY HX OF [...] LIGATION STATUS 03/20/2017 IGOR ARANA MD, Ot 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 81 MUSCLE WEAKNESS (GENERALIZED) 03/20/2017 IGOR ARANA MD Ot R00. 0 TACHYCARDIA, UNSPECIFIED 03/20/2017 IGOR ARANA MD, Ot Z79.899 OTHER JAIL (CURRENT) DRUG THERAPY 03/24/2017 PRISCILLA HUNT Ot E11.9 TYPE 2 DIABETES MELLITUS WITHOUT COMPLIC 03/24/2017 PRISCILLA HUNT Ot E86.9 VOLUME DEPLETION, UNSPECIFIED 03/24/2017 PRISCILLA HUNT Ot F17.210 NICOTINE DEPENDENCE, CIGARETTES, UNCOMPL 03/24/2017 PRISCILLA HUNT Ot F41.9 ANXIETY DISORDER, UNSPECIFIED 03/24/2017 PRISCILLA HUNT Ot G43.909 MIGRAINE, UNSP, NOT INTRACTABLE, WITHOUT 03/24/2017 PRISCILLA HUNT Ot I 10 ESSENTIAL (PRIMARY) HYPERTENSION 03/24/2017 PRISCILLA HUNT Ot K21.9 GASTRO-ESOPHAGEAL REFLUX DISEASE WITHOUT 03/24/2017 PRISCILLA HUNT Ot R 42 DIZZINESS AND GIDDINESS 03/24/2017 PRISCILLA HUNT Ot R93.5 ABN FINDINGS ON DX IMAGING OF ABD REGION 03/24/2017 PRISCILLA HUNT Ot Z79.82 A P SUPERVISOR (CURRENT) USE OF ASPIRIN 03/24/2017 PRISCILLA HUNT [...] GIDDINESS 04/09/2017 AKBAR EVANS MD, Ot Z79.82 JAIL (CURRENT) USE OF ASPIRIN 04/09/2017 AKBAR EVANS [...] LIGATION STATUS 04/17/2017 GWEN RAMOS MD Ot E11. 9 TYPE 2 DIABETES MELLITUS WITHOUT COMPLIC 04/17/2017 GWEN RAMOS MD Ot F17.210 NICOTINE DEPENDENCE, CIGARETTES, UNCOMPL 04/17/2017 GWEN RAMOS MD Ot F41. 9 ANXIETY DISORDER, UNSPECIFIED 04/17/2017 GWEN RAMOS MD Ot G43.909 MIGRAINE, UNSP, NOT INTRACTABLE, WITHOUT 04/17/2017 GWEN RAMOS MD Ot I10 ESSENTIAL (PRIMARY) HYPERTENSION 04/17/2017 GWEN RAMOS MD Ot J06. 9 ACUTE UPPER RESPIRATORY INFECTION, UNSPE 04/17/2017 GWEN RAMOS MD, Ot J44. 9 CHRONIC OBSTRUCTIVE PULMONARY DISEASE, U 04/17/2017 GWEN RAMOS MD Ot R05 COUGH 04/17/2017 GWEN RAMOS MD Ot R07. 81 PLEURODYNIA 04/17/2017 GWEN RAMOS MD Ot Z79. 01 JAIL (CURRENT) USE OF ANTICOAGULANT 04/17/2017 GWEN RAMOS MD Ot Z79. 82 JAIL (CURRENT) USE OF ASPIRIN 04/17/2017 GWEN RAMOS MD Ot Z82. 49 FAMILY HX OF ISCHEM HEART DIS AND OTH DI 04/17/2017 GWEN RAMOS MD Ot Z86. 73 PRSNL HX OF TIA (TIA), AND CEREB INFRC W 04/17/2017 GWEN RAMOS MD Ot Z98. 51 TUBAL LIGATION STATUS 04/18/2017 GWEN RAMOS MD Ot E11. 9 TYPE 2 DIABETES MELLITUS WITHOUT COMPLIC 04/18/2017 GWEN RAMOS MD Ot F17.210 NICOTINE DEPENDENCE, CIGARETTES, UNCOMPL 04/18/2017 GWEN RAMOS MD Ot F41. 9 ANXIETY DISORDER, UNSPECIFIED 04/18/2017 GWEN RAMOS MD Ot G43.909 MIGRAINE, UNSP, NOT INTRACTABLE, WITHOUT 04/18/2017 GWEN RAMOS MD Ot I10 ESSENTIAL (PRIMARY) HYPERTENSION 04/18/2017 GWEN RAMOS MD Ot J06. 9 ACUTE UPPER RESPIRATORY INFECTION, UNSPE 04/18/2017 GWEN RAMOS MD Ot J44. 9 CHRONIC OBSTRUCTIVE PULMONARY DISEASE, U 04/18/2017 GWEN RAMOS MD Ot R05 COUGH 04/18/2017 GWEN RAMOS MD Ot R07. 81 PLEURODYNIA 04/18/2017 GWEN RAMOS MD Ot Z79. 01 JAIL (CURRENT) USE OF ANTICOAGULANT 04/18/2017 GWEN RAMOS MD Ot Z79. 82 A P SUPERVISOR (CURRENT) USE OF ASPIRIN 04/18/2017 GWEN RAMOS MD Ot Z82. 49 FAMILY HX OF ISCHEM HEART DIS AND OTH DI 04/18/2017 GWEN RAMOS MD Ot Z86. 73 PRSNL HX OF TIA (TIA), AND CEREB INFRC W 04/18/2017 GWEN RAMOS MD Ot Z98. 51 TUBAL LIGATION STATUS 04/26/2017 MIRELLA MCMILLAN APRN Ot J43.8 OTHER EMPHYSEMA 04/26/2017 MIRELLA MCMILLAN APRN Ot R91.1 SOLITARY PULMONARY NODULE 04/26/2017 MIRELLA MCMILLAN APRN Ot Z72.0 TOBACCO USE 04/28/2017 MIRELLA MCMILLAN APRN Ot J30.2 OTHER SEASONAL ALLERGIC RHINITIS 04/28/2017 MIRELLA MCMILLAN APRN Ot J44.9 CHRONIC OBSTRUCTIVE PULMONARY DISEASE, U 04/28/2017 LIDIA MCMILLANINE Shefali SWEATER DESIGNER Ot R91.1 SOLITARY PULMONARY NODULE 05/09/2017 HIPOLITOLIDIA GALARZAINE Shefali SWEATER DESIGNER Ot J30.2 OTHER SEASONAL ALLERGIC RHINITIS 05/09/2017 HIPOLITOLIDIA GALARZAINE Shefali SWEATER DESIGNER Ot J44.9 CHRONIC OBSTRUCTIVE PULMONARY DISEASE, U 05/09/2017 HIPOLITOLIDIA GALARZAINE Shefali SWEATER DESIGNER Ot R91.1 SOLITARY PULMONARY NODULE 05/09/2017 HIPOLITOLIDIA GALARZAINE Shefali SWEATER DESIGNER Ot J30.2 OTHER SEASONAL ALLERGIC RHINITIS 05/09/2017 HIPOLITO, MIRELLA Shefali SWEATER DESIGNER Ot J44.9 CHRONIC OBSTRUCTIVE PULMONARY DISEASE, U 05/09/2017 HIPOLITO, MIRELLA Shefali SWEATER DESIGNER Ot R91.1 SOLITARY PULMONARY NODULE 06/13/2017 HIPOLITOLIDIA GALARZAINE Shefali SWEATER DESIGNER Ot J30.2 OTHER SEASONAL ALLERGIC RHINITIS 06/13/2017 HIPOLITOLIDIA GALARZAINE Shefali SWEATER DESIGNER Ot J44.9 CHRONIC OBSTRUCTIVE PULMONARY DISEASE, U 06/13/2017 HIPOLITOLIDIA GALARZAINE Shefali SWEATER DESIGNER Ot R91.1 SOLITARY PULMONARY NODULE 06/24/2017 SOTERO HUIZAR R SWEATER DESIGNER Ot K43.9 VENTRAL HERNIA WITHOUT OBSTRUCTION OR GA 06/24/2017 HUIZAR, SOTERO R SWEATER DESIGNER Ot R16.0 HEPATOMEGALY, NOT ELSEWHERE CLASSIFIED 06/29/2017 SOTERO HUIZAR R SWEATER DESIGNER Ot K43.9 VENTRAL HERNIA WITHOUT OBSTRUCTION OR GA 06/29/2017 HUIZARSOTERO Cox R SWEATER DESIGNER Ot R16.0 HEPATOMEGALY, NOT ELSEWHERE CLASSIFIED 07/09/2017 IGOR ARANA MD Ot D47. 3 ESSENTIAL (HEMORRHAGIC) THROMBOCYTHEMIA 07/09/2017 IGOR ARANA MD Ot D72.829 ELEVATED WHITE BLOOD CELL COUNT, UNSPECI 07/09/2017 IGOR ARANA MD Ot E78. 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 81 MUSCLE WEAKNESS (GENERALIZED) 07/09/2017 IGOR ARANA MD Ot R00. 0 TACHYCARDIA, UNSPECIFIED 07/09/2017 YASMEEN WRIGHT, DIANAKELLEN Ot Z79.899 OTHER A P SUPERVISOR (CURRENT) DRUG THERAPY 07/14/2017 SOTERO HUIZAR SWEATER DESIGNER Ot K43.9 VENTRAL HERNIA WITHOUT OBSTRUCTION OR GA 07/14/2017 SOTERO HUIZAR SWEATER DESIGNER Ot R16.0 HEPATOMEGALY, NOT ELSEWHERE CLASSIFIED 08/16/2017 THELMA FARAH APRN Ot D72.829 ELEVATED WHITE BLOOD CELL COUNT, UNSPECI 08/16/2017 THELMA FARAH APRN Ot E11 .9 TYPE 2 DIABETES MELLITUS WITHOUT COMPLIC 08/16/2017 THELMA FARAH APRN Ot F41 .9 ANXIETY DISORDER, UNSPECIFIED 08/16/2017 THELMA FARAH APRN Ot G43.909 MIGRAINE, UNSP, NOT INTRACTABLE, WITHOUT 08/16/2017 THELMA FARAH APRN Ot I10 ESSENTIAL (PRIMARY) HYPERTENSION 08/16/2017 THELMA FARAH APRN Ot K21 .9 GASTRO-ESOPHAGEAL REFLUX DISEASE WITHOUT 08/16/2017 THELMA FARAH APRN Ot R20 .2 PARESTHESIA OF SKIN 08/16/2017 THELMA FARAH APRN Ot R42 DIZZINESS AND GIDDINESS 08/16/2017 THELMA FARAH APRN Ot R51 HEADACHE 08/16/2017 THELMA FARAH APRN Ot Z79.02 A P SUPERVISOR (CURRENT) USE OF ANTITHROMBOTI 08/16/2017 THELMA FARAH APRN Ot Z79.82 A P SUPERVISOR (CURRENT) USE OF ASPIRIN 08/16/2017 THELMA FARAH APRN Ot Z80 .0 FAMILY HISTORY OF MALIGNANT NEOPLASM OF 08/16/2017 [...] PREG, CHLDBR 08/16/2017 THELMA FARAH APRN Ot Z88 .0 ALLERGY STATUS TO PENICILLIN 08/16/2017 THELMA FARAH APRN Ot Z88 .5 ALLERGY STATUS TO NARCOTIC AGENT STATUS 08/16/2017 THELMA FARAH APRN Ot Z98.51 TUBAL LIGATION STATUS 08/18/2017 THELMA FARAH APRN Ot D72.829 ELEVATED WHITE BLOOD CELL COUNT, UNSPECI 08/18/2017 THELMA FARAH APRN Ot E11 .9 TYPE 2 DIABETES MELLITUS WITHOUT COMPLIC 08/18/2017 THELMA FARAH APRN Ot F41 .9 ANXIETY DISORDER, UNSPECIFIED 08/18/2017 THELMA FARAH APRN Ot G43.909 MIGRAINE, UNSP, NOT INTRACTABLE, WITHOUT 08/18/2017 THELMA FARAH APRN Ot I10 ESSENTIAL (PRIMARY) HYPERTENSION 08/18/2017 THELMA FARAH APRN Ot K21 .9 GASTRO-ESOPHAGEAL REFLUX DISEASE WITHOUT 08/18/2017 THELMA FARAH APRN Ot R20 .2 PARESTHESIA OF SKIN 08/18/2017 THELMA FARAH APRN Ot R42 DIZZINESS AND GIDDINESS 08/18/2017 THELMA FARAH APRN Ot R51 HEADACHE 08/18/2017 THELMA FARAH APRN Ot Z79.02 JAIL (CURRENT) USE OF ANTITHROMBOTI 08/18/2017 THELMA FARAH APRN Ot Z79.82 JAIL (CURRENT) USE OF ASPIRIN 08/18/2017 THELMA FARAH APRN Ot Z80 .0 FAMILY HISTORY OF MALIGNANT NEOPLASM OF 08/18/2017 THELMA FARAH SWEATER DESIGNER Ot Z82.49 FAMILY HX OF ISCHEM HEART DIS AND OTH DI 08/18/2017 THELMA FARAH APRN Ot Z86.73 PRSNL HX OF TIA (TIA), AND CEREB INFRC W 08/18/2017 THELMA FARAH APRN Ot Z87.19 PERSONAL HISTORY OF OTHER DISEASES OF TH 08/18/2017 THELMA FARAH APRN Ot Z87.59 PERSONAL HISTORY OF COMP OF PREG, CHLDBR 08/18/2017 THELMA FARAH APRN Ot Z88 .0 ALLERGY STATUS TO PENICILLIN 08/18/2017 THELMA FARAH SWEATER DESIGNER Ot Z88 .5 ALLERGY STATUS TO NARCOTIC AGENT STATUS 08/18/2017 [...] ANTITHROMBOTI 09/15/2017 JULIENNE CLEVELAND MD Ot Z79.82 A P SUPERVISOR (CURRENT) USE OF ASPIRIN 09/15/2017 JULIENNE CLEVELAND [...] WITHOUT OBSTRUCTION OR GA 09/27/2017 SOTERO HUIZAR SWEATER DESIGNER Ot R16.0 HEPATOMEGALY, NOT ELSEWHERE CLASSIFIED 09/29/2017 Ot 368.9 VISU AL DISTURBANCE NOS 09/29/2017 Ot 401.9 HYPE RTENSION NOS 09/29/2017 Ot 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 09/29/2017 Ot 780.39 OTH ER CONVULSIONS 09/29/2017 Ot 794.09 ABN WOOD CLUB NECK WHIPPER FUNCT STUDY NEC 09/29/2017 Ot 794.8 ABN LIVER FUNCTION STUDY 09/29/2017 Ot 368.9 VISU AL DISTURBANCE NOS 09/29/2017 Ot 780.2 SYNC OPE AND COLLAPSE 09/29/2017 Ot 780.79 OTH MALAISE FATIGUE 09/29/2017 Ot 786.2 COUGH 09/29/[address] PAIN NOS 09/29/2017 AMELIA WRIGHT, PASTOR Blank Ot 794.0 9 ABN WOOD CLUB NECK WHIPPER FUNCT STUDY NEC 09/29/2017 PASTOR CISNEROS MD Ot 783.1 ABNORMAL WEIGHT GAIN 09/29/2017 PASTOR CISNEROS MD Ot 787.3 FLATUL/ERUCTAT/GAS PAIN 09/29/2017 PASTOR CISNEROS MD Ot 789.0 9 ABDOMINAL PAIN, OTHER SPECIFIED SITE 09/29/2017 PASTOR CISNEROS MD Ot 789.1 HEPATOMEGALY 09/29/2017 PASTOR CISNEROS MD Ot 723.1 CERVICALGIA 09/29/2017 AMELIA WRIGHT, PASTOR Blank Ot 729.5 PAIN IN LIMB 09/29/2017 PASTOR CISNEROS MD Ot 719.4 0 JOINT PAIN-UNSPEC 09/29/2017 PASTOR CISNEROS MD Ot 780.7 9 OTH MALAISE FATIGUE 09/29/2017 PASTOR CISNEROS MD Ot 782.3 EDEMA 09/29/2017 AMELIA WRIGHT, PASTOR Blank Ot 785.0 TACHYCARDIA NOS 09/29/2017 AMELIA WRIGHT, PASTOR Blank Ot 719.4 0 JOINT PAIN-UNSPEC 09/29/2017 PASTOR CISNEROS MD Ot 780.7 9 OTH MALAISE FATIGUE 09/29/2017 AMELIA WRIGHT, PASTOR Blank Ot 782.3 EDEMA 09/29/2017 PASTOR CISNEROS MD Ot 785.0 TACHYCARDIA NOS 09/29/2017 AMELIA WRIGHT, PASTOR Blakn Ot 305.1 TOBACCO USE DISORDER 09/29/2017 AMELIA WRIGHT, PASTOR Blank Ot 401.9 HYPERTENSION NOS 09/29/2017 AMELIA WRIGHT, PASTOR Blank Ot 428.0 CONGESTIVE HEART FAILURE NOS 09/29/2017 PASTOR CISNEROS MD Ot 782.3 EDEMA 09/29/2017 PASTOR CISNEROS MD Ot 785.0 TACHYCARDIA NOS 09/29/2017 PASTOR CISNEROS MD Ot 786.5 0 CHEST PAIN NOS 09/29/2017 SULEMA HUDSON MD [...] HYPOGLYCEMIA NOS 09/29/2017 PASTOR CISNEROS MD Ot 790.2 9 OTHER ABNORMAL GLUCOSE 09/29/2017 PASTOR CISNEROS MD Ot 780.3 9 OTHER CONVULSIONS 09/29/2017 PASTOR CISNEROS MD Ot 348.8 9 OTHER CONDITIONS OF BRAIN 09/29/2017 PASTOR CISNEROS MD Ot 780.9 7 ALTERED MENTAL STATUS 09/29/2017 PASTOR CISNEROS MD Ot 781.9 9 NERV/MUSCULOSKEL SYS SYMP NEC 09/29/2017 PASTOR CISNEROS MD Ot 530.8 1 ESOPHAGEAL REFLUX 09/29/2017 PASTOR CISNEROS MD Ot 553.3 DIAPHRAGMATIC HERNIA 09/29/2017 PASTOR CISNEROS MD Ot 787.2 0 DYSPHAGIA, UNSPECIFIED 09/29/2017 YUKO GARRETT MD Ot 401. 9 HYPERTENSION NOS 09/29/2017 YUKO GARRETT MD Ot 785. 0 TACHYCARDIA NOS 09/29/2017 YUKO GARRETT MD Ot 785. 1 PALPITATIONS 09/29/2017 YUKO GARRETT MD Ot 786. 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 2 PALPITATIONS 09/29/2017 YUKO GARRETT MD Ot R06. 02 SHORTNESS OF BREATH 09/29/2017 YUKO GARRETT MD Ot R07. 89 OTHER CHEST PAIN 09/29/2017 PASTOR CISNEROS MD Ot E11.9 TYPE 2 DIABETES MELLITUS WITHOUT COMPLIC 09/29/2017 PASTOR CISNEROS MD Ot Z79.4 JAIL (CURRENT) USE OF INSULIN 09/29/2017 PASTOR CISNEROS MD Ot E11.9 TYPE 2 DIABETES MELLITUS WITHOUT COMPLIC 09/29/2017 PASTOR CISNEROS MD Ot E66.9 OBESITY, UNSPECIFIED 09/29/2017 PASTOR CISNEROS MD Ot I73.9 PERIPHERAL VASCULAR DISEASE, UNSPECIFIED 09/29/2017 PASTOR CISNEROS MD Ot Z86.7 3 PRSNL HX OF TIA (TIA), AND CEREB INFRC W 09/29/2017 PASTOR CISNEROS MD Ot E11.9 TYPE 2 DIABETES MELLITUS WITHOUT COMPLIC 09/29/2017 PASTOR CISNEROS MD Ot M79.6 62 PAIN IN LEFT LOWER LEG 09/29/2017 PASTOR [...] HYPERTENSION 09/29/2017 GILBERT GOMEZ MD Ot Z79.02 A P SUPERVISOR (CURRENT) USE OF ANTITHROMBOTI 09/29/2017 GILBERT GOMEZ MD Ot Z79.82 JAIL (CURRENT) USE OF ASPIRIN 09/29/2017 GILBERT GOMEZ MD Ot R42 DIZZINESS AND GIDDINESS 09/29/2017 GILBERT GOMEZ MD Ot R51 HEADACHE 09/29/2017 IGOR ARANA MD Ot D47. 3 ESSENTIAL (HEMORRHAGIC) THROMBOCYTHEMIA 09/29/2017 IGOR ARANA MD Ot D72.829 ELEVATED WHITE BLOOD CELL COUNT, UNSPECI 09/29/2017 IGOR ARANA MD Ot E78. 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 81 MUSCLE WEAKNESS (GENERALIZED) 09/29/2017 XUN MD, COTO-KELLEN Ot R00. 0 TACHYCARDIA, UNSPECIFIED 09/29/2017 YASMEEN WRIGHT, [facility] Ot Z79.899 OTHER A P SUPERVISOR (CURRENT) DRUG THERAPY 09/29/2017 MIRELLA MCMILLAN SWEATER DESIGNER Ot J43.8 OTHER EMPHYSEMA 09/29/2017 MIRELLA MCMILLAN SWEATER DESIGNER Ot R91.1 SOLITARY PULMONARY NODULE 09/29/2017 MIRELLA MCMILLAN SWEATER DESIGNER Ot Z72.0 TOBACCO USE 09/29/2017 MIRELLA MCMILLAN SWEATER DESIGNER Ot J30.2 OTHER SEASONAL ALLERGIC RHINITIS 09/29/2017 MIRELLA MCMILLAN SWEATER DESIGNER Ot J44.9 CHRONIC OBSTRUCTIVE PULMONARY DISEASE, U 09/29/2017 MIRELLA MCMILLAN SWEATER DESIGNER Ot R91.1 SOLITARY PULMONARY NODULE 09/29/2017 SOTERO HUIZAR SWEATER DESIGNER Ot K43.9 VENTRAL HERNIA WITHOUT OBSTRUCTION OR GA 09/29/2017 SOTERO HUIZAR SWEATER DESIGNER Ot R16.0 HEPATOMEGALY, NOT ELSEWHERE CLASSIFIED 10/04/2017 GERRY WRIGHT, YUKO Blank Ot I10 ESSENTIAL (PRIMARY) HYPERTENSION 10/04/2017 YUKO GARRETT MD Ot J44. 9 CHRONIC OBSTRUCTIVE PULMONARY DISEASE, U 10/04/2017 YUKO GARRETT MD Ot K21. 9 GASTRO-ESOPHAGEAL REFLUX DISEASE WITHOUT 10/04/2017 YUKO GARRETT MD Ot R07. 9 CHEST PAIN, UNSPECIFIED 10/08/2017 MIRELLA MCMILLAN SWEATER DESIGNER Ot J43.8 OTHER EMPHYSEMA 10/08/2017 MIRELLA MCMILLAN SWEATER DESIGNER Ot R91.1 SOLITARY PULMONARY NODULE 10/08/2017 MIRELLA MCMILLAN APRN Ot Z72.0 TOBACCO USE 10/18/2017 MIRELLA MCMILLAN SWEATER DESIGNER Ot J30.2 OTHER SEASONAL ALLERGIC RHINITIS 10/18/2017 MIRELLA MCMILLAN SWEATER DESIGNER Ot J44.9 CHRONIC OBSTRUCTIVE PULMONARY DISEASE, U 10/18/2017 MIRELLA MCMILLAN APRN Ot R91.1 SOLITARY PULMONARY NODULE 11/04/2017 PASTOR CISNEROS MD Ot E11.9 TYPE 2 DIABETES MELLITUS WITHOUT COMPLIC 11/04/2017 PASTOR CISNEROS MD Ot E66.9 OBESITY, UNSPECIFIED 11/04/2017 PASTOR CISNEROS MD Ot I73.9 PERIPHERAL VASCULAR DISEASE, UNSPECIFIED 11/04/2017 PASTOR CISNEROS MD Ot Z86.7 3 PRSNL HX OF TIA (TIA), AND CEREB INFRC W 11/04/2017 IGOR ARANA MD Ot D47. 3 ESSENTIAL (HEMORRHAGIC) THROMBOCYTHEMIA 11/04/2017 IGOR ARANA MD Ot D72.829 ELEVATED WHITE BLOOD CELL COUNT, UNSPECI 11/04/2017 IGOR ARANA MD Ot E78. 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 81 MUSCLE WEAKNESS (GENERALIZED) 11/04/2017 IGOR ARANA MD Ot R00. 0 TACHYCARDIA, UNSPECIFIED 11/04/2017 IGOR ARANA MD Ot Z79.899 OTHER A P SUPERVISOR (CURRENT) DRUG THERAPY 11/04/2017 BILLY GOLD MD Ot E11. 9 TYPE 2 DIABETES MELLITUS WITHOUT COMPLIC 11/04/2017 BILLY GOLD MD Ot E78. 00 PURE HYPERCHOLESTEROLEMIA, UNSPECIFIED 11/04/2017 BILLY GOLD MD Ot F17.210 NICOTINE DEPENDENCE, CIGARETTES, UNCOMPL 11/04/2017 BILLY GOLD MD, Ot F41. 9 ANXIETY DISORDER, UNSPECIFIED 11/04/2017 BILLY GOLD MD Ot G43.909 MIGRAINE, UNSP, NOT INTRACTABLE, WITHOUT 11/04/2017 BILLY GOLD MD Ot I10 ESSENTIAL (PRIMARY) HYPERTENSION 11/04/2017 BILLY GOLD MD Ot K21. 9 GASTRO-ESOPHAGEAL REFLUX DISEASE WITHOUT 11/04/2017 BILLY GOLD MD Ot N39. 0 URINARY TRACT INFECTION, SITE NOT SPECIF 11/04/2017 BILLY GOLD MD, Ot R31. 9 HEMATURIA, UNSPECIFIED 11/04/2017 BILLY GOLD MD Ot Z79. 02 A P SUPERVISOR (CURRENT) USE OF ANTITHROMBOTI 11/04/2017 BILLY GOLD MD Ot Z79. 82 JAIL (CURRENT) USE OF ASPIRIN 11/04/2017 BILLY GOLD MD Ot Z80. 0 FAMILY HISTORY OF MALIGNANT NEOPLASM OF 11/04/2017 ASIF WRIGHT, BILLY Baeza Ot Z82. 49 FAMILY HX OF ISCHEM HEART DIS AND OTH DI 11/04/2017 BILLY GOLD MD Ot Z86. 73 PRSNL HX OF TIA (TIA), AND CEREB INFRC W 11/04/2017 BILLY GOLD MD Ot Z87.440 PERSONAL HISTORY OF URINARY (TRACT) INFE 11/04/2017 BILLY GOLD MD Ot Z87. 59 PERSONAL HISTORY OF COMP OF PREG, CHLDBR 11/04/2017 ASIF WRIGHT, BILLY Baeza Ot Z88. 0 ALLERGY STATUS TO PENICILLIN 11/04/2017 ASIF WRIGHT, BILLY Baeza Ot Z88. 5 ALLERGY STATUS TO NARCOTIC AGENT STATUS 11/04/2017 BILLY GOLD MD Ot Z88. 8 ALLERGY STATUS TO OTH DRUG/MEDS/BIOL SUB 11/04/2017 BILLY GOLD MD Ot Z98. 51 TUBAL LIGATION STATUS 11/06/2017 GERRY WRIGHT, YUKO Blank Ot I10 ESSENTIAL (PRIMARY) HYPERTENSION 11/06/2017 GERRY WRIGHT, YUKO Blank Ot J44. 9 CHRONIC OBSTRUCTIVE PULMONARY DISEASE, U 11/06/2017 GERRY WRIGHT, YUKO Blank Ot K21. 9 GASTRO-ESOPHAGEAL REFLUX DISEASE WITHOUT 11/06/2017 YUKO GARRETT MD Ot R07. 9 CHEST PAIN, UNSPECIFIED 11/07/2017 BILLY GOLD MD Ot E11. 9 TYPE 2 DIABETES MELLITUS WITHOUT COMPLIC 11/07/2017 BILLY GOLD MD Ot E78. 00 PURE HYPERCHOLESTEROLEMIA, UNSPECIFIED 11/07/2017 BILLY GOLD MD Ot F17.210 NICOTINE DEPENDENCE, CIGARETTES, UNCOMPL 11/07/2017 BILLY GOLD MD Ot F41. 9 ANXIETY DISORDER, UNSPECIFIED 11/07/2017 BILLY GOLD MD Ot G43.909 MIGRAINE, UNSP, NOT INTRACTABLE, WITHOUT 11/07/2017 BILLY GOLD MD Ot I10 ESSENTIAL (PRIMARY) HYPERTENSION 11/07/2017 BILLY GOLD MD Ot K21. 9 GASTRO-ESOPHAGEAL REFLUX DISEASE WITHOUT 11/07/2017 BILLY GOLD MD Ot N39. 0 URINARY TRACT INFECTION, SITE NOT SPECIF 11/07/2017 BILLY GOLD MD Ot R31. 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 82 JAIL (CURRENT) USE OF ASPIRIN 11/07/2017 BILLY GOLD MD Ot Z80. 0 FAMILY HISTORY OF MALIGNANT NEOPLASM OF 11/07/2017 BILLY GOLD MD Ot Z82. 49 FAMILY HX OF ISCHEM HEART DIS AND OTH DI 11/07/2017 BILLY GOLD MD Ot Z86. 73 PRSNL HX OF TIA (TIA), AND CEREB INFRC W 11/07/2017 BILLY GOLD MD Ot Z87.440 PERSONAL HISTORY OF URINARY (TRACT) INFE 11/07/2017 BILLY GOLD MD Ot Z87. 59 PERSONAL HISTORY OF COMP OF PREG, CHLDBR 11/07/2017 BILLY GOLD MD Ot Z88. 0 ALLERGY STATUS TO PENICILLIN 11/07/2017 BILLY GOLD MD Ot Z88. 5 ALLERGY STATUS TO NARCOTIC AGENT STATUS 11/07/2017 BILLY GOLD MD Ot Z88. 8 ALLERGY STATUS TO [facility] DRUG/MEDS/BIOL SUB 11/07/2017 BILLY GOLD MD Ot Z98. 51 TUBAL LIGATION STATUS 11/08/2017 MIRELLA MCMILLAN APRN Ot R91.8 OTHER NONSPECIFIC ABNORMAL FINDING OF GIOVANNA 11/08/2017 MIRELLA MCMILLAN APRN Ot Z72.0 TOBACCO USE 11/24/2017 THELMA FARAH APRN Ot E11 .9 TYPE 2 DIABETES MELLITUS WITHOUT COMPLIC 11/24/2017 THELMA FARAH APRN Ot E78.00 PURE HYPERCHOLESTEROLEMIA, UNSPECIFIED 11/24/2017 THELMA FARAH APRN Ot F41 .9 ANXIETY DISORDER, UNSPECIFIED 11/24/2017 THELMA FARAH APRN Ot G43.909 MIGRAINE, UNSP, NOT INTRACTABLE, WITHOUT 11/24/2017 THELMA FARAH APRN Ot I10 ESSENTIAL (PRIMARY) HYPERTENSION 11/24/2017 THELMA FARAH APRN Ot K21 .9 GASTRO-ESOPHAGEAL REFLUX DISEASE WITHOUT 11/24/2017 THELMA FARAH APRN Ot N39 .0 URINARY TRACT INFECTION, SITE NOT SPECIF 11/24/2017 THELMA FARAH APRN Ot R42 DIZZINESS AND GIDDINESS 11/24/2017 THELMA FARAH APRN Ot Z79.02 JAIL (CURRENT) USE OF ANTITHROMBOTI 11/24/2017 THELMA FARAH APRN Ot Z79.82 JAIL (CURRENT) USE OF ASPIRIN 11/24/2017 THELMA FARAH APRN Ot Z80 .0 FAMILY HISTORY OF MALIGNANT NEOPLASM OF 11/24/2017 THELMA FARAH APRN Ot Z82.49 FAMILY HX OF ISCHEM HEART DIS AND OTH DI 11/24/2017 THELMA FARAH APRN Ot Z86.73 PRSNL HX OF TIA (TIA), AND CEREB INFRC W 11/24/2017 THELMA FARAH APRN Ot Z87.19 PERSONAL HISTORY OF OTHER DISEASES OF TH 11/24/2017 THELMA FRAAH APRN Ot Z87.440 PERSONAL HISTORY OF URINARY (TRACT) INFE 11/24/2017 THELMA FARAH APRN Ot Z87.59 PERSONAL HISTORY OF COMP OF PREG, CHLDBR 11/24/2017 THELMA FARAH APRN Ot Z88 .0 ALLERGY STATUS TO PENICILLIN 11/24/2017 THELMA FARAH APRN Ot Z88 .5 ALLERGY STATUS TO NARCOTIC AGENT STATUS 11/24/2017 THELMA FARAH APRN Ot Z88 .8 ALLERGY STATUS TO OT DRUG/MEDS/BIOL SUB 11/24/2017 THELMA FARAH APRN Ot Z98.51 TUBAL LIGATION STATUS 12/01/2017 MIRELLA MCMILLAN SWEATER DESIGNER Ot R91.8 OTHER NONSPECIFIC ABNORMAL FINDING OF GIOVANNA 12/01/2017 MIRELLA MCMILLAN SWEATER DESIGNER Ot Z72.0 TOBACCO USE 12/05/2017 SOTERO HUIZAR SWEATER DESIGNER Ot I70.0 ATHEROSCLEROSIS OF AORTA 12/05/2017 SOTERO HUIZAR SWEATER DESIGNER Ot I70.90 UNSPECIFIED ATHEROSCLEROSIS 12/05/2017 SOTERO HUIZAR SWEATER DESIGNER Ot K43.9 VENTRAL HERNIA WITHOUT OBSTRUCTION OR GA 12/05/2017 SOTERO HUIZAR SWEATER DESIGNER Ot K76.0 FATTY (CHANGE OF) LIVER, NOT ELSEWHERE C 12/05/2017 SOTERO HUIZAR SWEATER DESIGNER Ot N39.0 URINARY TRACT INFECTION, SITE NOT SPECIF 12/05/2017 HUIZAR, SOTERO R SWEATER DESIGNER Ot I70.0 ATHEROSCLEROSIS OF AORTA 12/05/2017 SOTERO HUIZAR SWEATER DESIGNER Ot I70.90 UNSPECIFIED ATHEROSCLEROSIS 12/05/2017 SOTERO HUIZAR SWEATER DESIGNER Ot K43.9 VENTRAL HERNIA WITHOUT OBSTRUCTION OR GA 12/05/2017 SOTERO HUIZAR SWEATER DESIGNER Ot K76.0 FATTY (CHANGE OF) LIVER, NOT ELSEWHERE C 12/05/2017 SOTERO HUIZAR SWEATER DESIGNER Ot N39.0 URINARY TRACT INFECTION, SITE NOT SPECIF 12/07/2017 MAGDA MARTINEZ DIAZO TECHNICIAN Ot D72.829 ELEVATED WHITE BLOOD CELL COUNT, UNSPECI 12/07/2017 MICHELLE MAGDA DIAZO TECHNICIAN Ot E11.9 TYPE 2 DIABETES MELLITUS WITHOUT COMPLIC 12/07/2017 MICHELLE MAGDA DIAZO TECHNICIAN Ot E78.00 PURE HYPERCHOLESTEROLEMIA, UNSPECIFIED 12/07/2017 MICHELLE, MAGDA DIAZO TECHNICIAN Ot F17.210 NICOTINE DEPENDENCE, CIGARETTES, UNCOMPL 12/07/2017 MICHELLE, MAGDA DIAZO TECHNICIAN Ot F41.0 PANIC DISORDER [EPISODIC PAROXYSMAL ANXI 12/07/2017 MICHELLE MAGDA DIAZO TECHNICIAN Ot G43.909 MIGRAINE, UNSP, NOT INTRACTABLE, WITHOUT 12/07/2017 MICHELLE MAGDA DIAZO TECHNICIAN Ot I10 ESSENTIAL (PRIMARY) HYPERTENSION 12/07/2017 MICHELLE MAGDA DIAZO TECHNICIAN Ot K21.9 GASTRO-ESOPHAGEAL REFLUX DISEASE WITHOUT 12/07/2017 MICHELLE MAGDA DIAZO TECHNICIAN Ot Z79.02 JAIL (CURRENT) USE OF ANTITHROMBOTI 12/07/2017 MICHELLE MAGDA DIAZO TECHNICIAN Ot Z79.82 A P SUPERVISOR (CURRENT) USE OF ASPIRIN 12/07/2017 MAGDA MARTINEZ DIAZO TECHNICIAN Ot Z80.0 FAMILY HISTORY OF MALIGNANT NEOPLASM OF 12/07/2017 MICHELLE MAGDA DIAZO TECHNICIAN Ot Z82.49 FAMILY HX OF ISCHEM HEART DIS AND OTH DI 12/07/2017 MICHELLE MAGDA DIAZO TECHNICIAN Ot Z86.73 PRSNL HX OF TIA (TIA), AND CEREB INFRC W 12/07/2017 MICHELLE MAGDA DIAZO TECHNICIAN Ot Z87.19 PERSONAL HISTORY OF OTHER DISEASES OF TH 12/07/2017 MAGDA MARTINEZ DIAZO TECHNICIAN Ot Z87.440 PERSONAL HISTORY OF URINARY (TRACT) INFE 12/07/2017 MICHELLE MAGDA DIAZO TECHNICIAN Ot Z88.0 ALLERGY STATUS TO PENICILLIN 12/07/2017 MICHELLE MAGDA DIAZO TECHNICIAN Ot Z88.5 ALLERGY STATUS TO NARCOTIC AGENT STATUS 12/07/2017 MAGDA MARTINEZ Ot Z88.8 ALLERGY STATUS TO OTH DRUG/MEDS/BIOL SUB 12/07/2017 MAGDA MARTINEZ Ot Z98.51 TUBAL LIGATION STATUS 12/07/2017 MAGDA MARTINEZ Ot Z98.890 OTHER SPECIFIED POSTPROCEDURAL STATES 12/08/2017 YUKO GARRETT MD Ot I10 ESSENTIAL (PRIMARY) HYPERTENSION 12/08/2017 YUKO GARRETT MD Ot J44. 9 CHRONIC OBSTRUCTIVE PULMONARY DISEASE, U 12/08/2017 YUKO GARRETT MD Ot K21. 9 GASTRO-ESOPHAGEAL REFLUX DISEASE WITHOUT 12/08/2017 YUKO GARRETT MD Ot R07. 9 CHEST PAIN, UNSPECIFIED 12/09/2017 MAGDA MARTINEZ Ot D72.829 ELEVATED WHITE BLOOD CELL COUNT, UNSPECI 12/09/2017 MAGDA MARTINEZP Ot E11.9 TYPE 2 DIABETES MELLITUS WITHOUT COMPLIC 12/09/2017 MAGDA MARTINEZ Ot E78.00 PURE HYPERCHOLESTEROLEMIA, UNSPECIFIED 12/09/2017 MAGDA MARTINEZP Ot F17.210 NICOTINE DEPENDENCE, CIGARETTES, UNCOMPL 12/09/2017 MAGDA MARTINEZP Ot F41.0 PANIC DISORDER [EPISODIC PAROXYSMAL ANXI 12/09/2017 MAGDA MARTINEZP Ot G43.909 MIGRAINE, UNSP, NOT INTRACTABLE, WITHOUT 12/09/2017 MAGDA MARTINEZP Ot I10 ESSENTIAL (PRIMARY) HYPERTENSION 12/09/2017 MAGDA MARTINEZP Ot K21.9 GASTRO-ESOPHAGEAL REFLUX DISEASE WITHOUT 12/09/2017 MAGDA MARTINEZP Ot Z79.02 A P SUPERVISOR (CURRENT) USE OF ANTITHROMBOTI 12/09/2017 MAGDA MARTINEZP Ot Z79.82 JAIL (CURRENT) USE OF ASPIRIN 12/09/2017 MAGDA MARTINEZP Ot Z80.0 FAMILY HISTORY OF MALIGNANT NEOPLASM OF 12/09/2017 MAGDA MARTINEZ Ot Z82.49 FAMILY HX OF ISCHEM HEART DIS AND OTH DI 12/09/2017 MAGDA MARTINEZ Ot Z86.73 PRSNL HX OF TIA (TIA), AND CEREB INFRC W 12/09/2017 MAGDA MARTINEZ Ot Z87.19 PERSONAL HISTORY OF OTHER DISEASES OF TH 12/09/2017 MAGDA MARTINEZP Ot Z87.440 PERSONAL HISTORY OF URINARY (TRACT) INFE 12/09/2017 MAGDA MARTINEZP Ot Z88.0 ALLERGY STATUS TO PENICILLIN 12/09/2017 MAGDA MARTINEZP Ot Z88.5 ALLERGY STATUS TO NARCOTIC AGENT STATUS 12/09/2017 MAGDA MARTINEZP Ot Z88.8 ALLERGY STATUS TO OTH DRUG/MEDS/BIOL SUB 12/09/2017 MAGDA MARTINEZP Ot Z98.51 TUBAL LIGATION STATUS 12/09/2017 MAGDA MARTINEZP Ot Z98.890 OTHER SPECIFIED POSTPROCEDURAL STATES 12/28/2017 SOTERO HUIZAR SWEATER DESIGNER Ot I70.0 ATHEROSCLEROSIS OF [place]ORT[place] 12/28/2017 SOTERO HUIZAR SWEATER DESIGNER Ot I70.90 UNSPECIFIED ATHEROSCLEROSIS 12/28/2017 SOTERO HUIZAR SWEATER DESIGNER Ot K43.9 VENTRAL HERNIA WITHOUT OBSTRUCTION OR GA 12/28/2017 SOTERO HUIZAR SWEATER DESIGNER Ot K76.0 FATTY (CHANGE OF) LIVER, NOT ELSEWHERE C 12/28/2017 SOTERO HUIZAR SWEATER DESIGNER Ot N39.0 URINARY TRACT INFECTION, SITE NOT SPECIF 01/23/2018 RENY MEJIA Ot E11.9 TYPE 2 DIABETES MELLITUS WITHOUT COMPLIC 01/23/2018 ROBERTO RENY Ot E78.00 PURE HYPERCHOLESTEROLEMIA, UNSPECIFIED 01/23/2018 ROBERTO RENY Ot F17.210 NICOTINE DEPENDENCE, CIGARETTES, UNCOMPL 01/23/2018 ROB MEJIAIS Ot F41.9 ANXIETY DISORDER, UNSPECIFIED 01/23/2018 ROB MEJIAIS Ot G43.909 MIGRAINE, UNSP, NOT INTRACTABLE, WITHOUT 01/23/2018 BERNOT RENY Ot I10 ESSENTIAL (PRIMARY) HYPERTENSION 01/23/2018 ROB MEJIAIS Ot R10.32 LEFT LOWER QUADRANT PAIN 01/23/2018 ROB MEJIAIS Ot Z79.82 A P SUPERVISOR (CURRENT) USE OF ASPIRIN 01/23/2018 ROB MEJIAIS Ot Z86.73 PRSNL HX OF TIA (TIA), AND CEREB INFRC W 01/23/2018 ROB MEJIAIS Ot Z87.440 PERSONAL HISTORY OF URINARY (TRACT) INFE 01/23/2018 ROB MEJIAIS Ot Z88.0 ALLERGY STATUS TO PENICILLIN 01/23/2018 BERNOT, RENY Ot Z88.1 ALLERGY STATUS TO OTHER ANTIBIOTIC AGENT 01/23/2018 BERNZENIA, RENY Ot Z88.5 ALLERGY STATUS TO NARCOTIC AGENT STATUS 01/23/2018 BERNZENIA, RENY Ot Z88.8 ALLERGY STATUS TO OTH DRUG/MEDS/BIOL SUB 01/23/2018 BERNZENIA, RENY Ot Z98.51 TUBAL LIGATION STATUS 01/26/2018 BERNZENIA, RENY Ot E11.9 TYPE 2 DIABETES MELLITUS WITHOUT COMPLIC 01/26/2018 BERNOT, RENY Ot E78.00 PURE HYPERCHOLESTEROLEMIA, UNSPECIFIED 01/26/2018 BERNOT, RENY Ot F17.210 NICOTINE DEPENDENCE, CIGARETTES, UNCOMPL 01/26/2018 BERNOT, RENY Ot F41.9 ANXIETY DISORDER, UNSPECIFIED 01/26/2018 BERNOT RENY Ot G43.909 MIGRAINE, UNSP, NOT INTRACTABLE, WITHOUT 01/26/2018 BERNOT, RENY Ot I10 ESSENTIAL (PRIMARY) HYPERTENSION 01/26/2018 ROBERTO RENY Ot R10.32 LEFT LOWER QUADRANT PAIN 01/26/2018 ROBERTO RENY Ot Z79.82 A P SUPERVISOR (CURRENT) USE OF ASPIRIN 01/26/2018 ROBERTO RENY Ot Z86.73 PRSNL HX OF TIA (TIA), AND CEREB INFRC W 01/26/2018 ROBERTO RENY Ot Z87.440 PERSONAL HISTORY OF URINARY (TRACT) INFE 01/26/2018 ROBERTO RENY Ot Z88.0 ALLERGY STATUS TO PENICILLIN 01/26/2018 ROBERTO, RENY Ot Z88.1 ALLERGY STATUS TO OTHER ANTIBIOTIC AGENT 01/26/2018 ROBERTO RENY Ot Z88.5 ALLERGY STATUS TO NARCOTIC AGENT STATUS 01/26/2018 ROBERTO, RENY Ot Z88.8 ALLERGY STATUS TO OTH DRUG/MEDS/BIOL SUB 01/26/2018 BERNOT, RENY Ot Z98.51 TUBAL LIGATION STATUS 02/02/2018 PRISCILLA HUNT Ot D72.829 ELEVATED WHITE BLOOD CELL COUNT, UNSPECI 02/02/2018 PRISCILLA HUNT Ot E11.9 TYPE 2 DIABETES MELLITUS WITHOUT COMPLIC 02/02/2018 PRISCILAL HUNT Ot E78.00 PURE HYPERCHOLESTEROLEMIA, UNSPECIFIED 02/02/2018 PRISCILLA HUNT Ot F41.9 ANXIETY DISORDER, UNSPECIFIED 02/02/2018 PRISCILLA HUNT Ot G43.909 MIGRAINE, UNSP, NOT INTRACTABLE, WITHOUT 02/02/2018 PRISCILLA HUNT Ot I 10 ESSENTIAL (PRIMARY) HYPERTENSION 02/02/2018 PRISCILLA HUNT Ot J 40 BRONCHITIS, NOT SPECIFIED ACUTE OR CH 02/02/2018 PRISCILLA HUNT Ot K21.9 GASTRO-ESOPHAGEAL REFLUX DISEASE WITHOUT 02/02/2018 PRISCILLA HUTN Ot R 05 COUGH 02/02/2018 PRISCILLA HUNT Ot Z77.22 CNTCT W AND EXPSR TO ENVIRON TOBACCO SMO 02/02/2018 PRISCILLA HUNT Ot Z79.02 A P SUPERVISOR (CURRENT) USE OF ANTITHROMBOTI 02/02/2018 PRISCILLA HUNT Ot Z79.82 JAIL (CURRENT) USE OF ASPIRIN 02/02/2018 PRISCILLA HUNT [...] NOT INTRACTABLE, WITHOUT 02/06/2018 PRISCILLA HUNT Ot I 10 ESSENTIAL (PRIMARY) HYPERTENSION 02/06/2018 PRISCILLA HUNT Ot J 40 BRONCHITIS, NOT SPECIFIED ACUTE OR CH 02/06/2018 PRISCILLA HUNT Ot K21.9 GASTRO-ESOPHAGEAL REFLUX DISEASE WITHOUT 02/06/2018 PRISCILLA HUNT Ot R 05 COUGH 02/06/2018 PRISCILLA HUNT Ot Z77.22 CNTCT W AND EXPSR TO ENVIRON TOBACCO SMO 02/06/2018 PRISCILLA HUNT Ot Z79.02 A P SUPERVISOR (CURRENT) USE OF ANTITHROMBOTI 02/06/2018 PRISCILLA HUNT [...] Ot Z98.890 OTHER SPECIFIED POSTPROCEDURAL STATES 02/24/2018 RENY MEJIA Ot E11.9 TYPE 2 DIABETES MELLITUS WITHOUT COMPLIC 02/24/2018 ROB MEJIAIS Ot E78.00 PURE HYPERCHOLESTEROLEMIA, UNSPECIFIED 02/24/2018 ROB MEJIAIS Ot F41.9 ANXIETY DISORDER, UNSPECIFIED 02/24/2018 ROB MEJIAIS Ot G43.909 MIGRAINE, UNSP, NOT INTRACTABLE, WITHOUT 02/24/2018 ROB MEJIAIS Ot I10 ESSENTIAL (PRIMARY) HYPERTENSION 02/24/2018 ROB MEJIAIS Ot K21.9 GASTRO-ESOPHAGEAL REFLUX DISEASE WITHOUT 02/24/2018 ROB MEJIAIS Ot L29.9 PRURITUS, UNSPECIFIED 02/24/2018 ROB MEJIAIS Ot L53.9 ERYTHEMATOUS CONDITION, UNSPECIFIED 02/24/2018 ROB MEJIAIS Ot T80.89XA OTH COMP FOL INFUSION, TRANSFUSE AND THE 02/24/2018 ROB MEJIAIS Ot Z77.22 CNTCT W AND EXPSR TO ENVIRON TOBACCO SMO 02/24/2018 ROB MEJIAIS Ot Z79.02 A P SUPERVISOR (CURRENT) USE OF ANTITHROMBOTI 02/24/2018 ROB MEJIAIS Ot Z79.82 JAIL (CURRENT) USE OF ASPIRIN 02/24/2018 ROB MEJIAIS [...] Ot Z98.890 OTHER SPECIFIED POSTPROCEDURAL STATES 02/27/2018 ROBERTO RENY Ot E11.9 TYPE 2 DIABETES MELLITUS WITHOUT COMPLIC 02/27/2018 ROBERTO RENY Ot E78.00 PURE HYPERCHOLESTEROLEMIA, UNSPECIFIED 02/27/2018 BERNZENIA RENY Ot F41.9 ANXIETY DISORDER, UNSPECIFIED 02/27/2018 ROBERTO RENY Ot G43.909 MIGRAINE, UNSP, NOT INTRACTABLE, WITHOUT 02/27/2018 ROBERTO RENY Ot I10 ESSENTIAL (PRIMARY) HYPERTENSION 02/27/2018 ROBERTO RENY Ot K21.9 GASTRO-ESOPHAGEAL REFLUX DISEASE WITHOUT 02/27/2018 ROBERTO RENY Ot L29.9 PRURITUS, UNSPECIFIED 02/27/2018 ROBERTO RENY Ot L53.9 ERYTHEMATOUS CONDITION, UNSPECIFIED 02/27/2018 ROBERTO RENY Ot T80.89XA OTH COMP FOL INFUSION, TRANSFUSE AND THE 02/27/2018 ROB MEJIAIS Ot Z77.22 CNTCT W AND EXPSR TO ENVIRON TOBACCO SMO 02/27/2018 ROB MEJIAIS Ot Z79.02 JAIL (CURRENT) USE OF ANTITHROMBOTI 02/27/2018 ROBERTO RENY Ot Z79.82 JAIL (CURRENT) USE OF ASPIRIN 02/27/2018 ROBERTO RENY [...] HISTORY OF OTHER DISEASES OF UR 02/27/2018 ROBERTO RENY Ot Z88.0 ALLERGY STATUS TO PENICILLIN 02/27/2018 ROBERTO RENY Ot Z88.5 ALLERGY STATUS TO NARCOTIC AGENT STATUS 02/27/2018 ROB MEJIAIS Ot Z88.8 ALLERGY STATUS TO OTH DRUG/MEDS/BIOL SUB 02/27/2018 ROBERTO RENY Ot Z98.51 TUBAL LIGATION STATUS 02/27/2018 RENY MEJIA Ot Z98.890 OTHER SPECIFIED POSTPROCEDURAL STATES 03/01/2018 AMELIA WRIGHT, PASTOR Blank Ot 723.1 CERVICALGIA 03/01/2018 PASTOR CISNEROS MD Ot 729.5 PAIN IN LIMB 03/01/2018 PASTOR CISNEROS MD Ot 719.4 0 JOINT PAIN-UNSPEC 03/01/2018 PASTOR CISNEROS MD Ot 780.7 9 OTH MALAISE FATIGUE 03/01/2018 PASTOR CISNEROS MD Ot 782.3 EDEMA 03/01/2018 PASTOR CISNEROS MD Ot 785.0 TACHYCARDIA NOS 03/01/2018 PASTOR CISNEROS MD Ot 719.4 0 JOINT PAIN-UNSPEC 03/01/2018 PASTOR CISNEROS MD Ot 780.7 9 OTH MALAISE FATIGUE 03/01/2018 PASTOR CISNEROS MD [...] TACHYCARDIA NOS 03/01/2018 PASTOR CISNEROS MD Ot 786.5 0 CHEST PAIN NOS 03/01/2018 SULEMA HUDSON MD Ot 397.0 TRICUSPID VALVE DISEASE 03/01/2018 SULEMA HUDSON MD Ot 401.9 HYPERTENSION NOS 03/01/2018 SULEMA HUDSON MD Ot 424.0 MITRAL VALVE DISORDER 03/01/2018 SULEMA HUDSON MD Ot 786.50 CHEST PAIN NOS 03/01/2018 SULEMA HUDSON MD Ot 401.9 HYPERTENSION NOS 03/01/2018 SULEMA HUDSON MD Ot 786.50 CHEST PAIN NOS 03/01/2018 PASTOR CISNEROS MD Ot 251.2 HYPOGLYCEMIA NOS 03/01/2018 PASTOR CISNEROS MD Ot 790.2 9 OTHER ABNORMAL GLUCOSE 03/01/2018 PASTOR CISNEROS MD Ot 780.3 9 OTHER CONVULSIONS 03/01/2018 PASTOR CISNEROS MD Ot 348.8 9 OTHER CONDITIONS OF BRAIN 03/01/2018 PASTOR CISNEROS MD Ot 780.9 7 ALTERED MENTAL STATUS 03/01/2018 PASTOR CISNEROS MD Ot 781.9 9 NERV/MUSCULOSKEL SYS SYMP NEC 03/01/2018 PASTOR CISNEROS MD Ot 530.8 1 ESOPHAGEAL REFLUX 03/01/2018 PASTOR CISNEROS MD Ot 553.3 DIAPHRAGMATIC HERNIA 03/01/2018 PASTOR CISNEROS MD Ot 787.2 0 DYSPHAGIA, UNSPECIFIED 03/01/2018 YUKO GARRETT MD Ot 401. 9 HYPERTENSION NOS 03/01/2018 YUKO GARRETT MD Ot 785. 0 TACHYCARDIA NOS 03/01/2018 YUKO GARRETT MD Ot 785. 1 PALPITATIONS 03/01/2018 YUKO GARRETT MD Ot 786. 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 2 PALPITATIONS 03/01/2018 YUKO GARRETT MD Ot R06. 02 SHORTNESS OF BREATH 03/01/2018 YUKO GARRETT MD Ot R07. 89 OTHER CHEST PAIN 03/01/2018 PASTOR CISNEROS MD Ot E11.9 TYPE 2 DIABETES MELLITUS WITHOUT COMPLIC 03/01/2018 PASTOR CISNEROS MD Ot Z79.4 A P SUPERVISOR (CURRENT) USE OF INSULIN 03/01/2018 PASTOR CISNEROS MD Ot E11.9 TYPE 2 DIABETES MELLITUS WITHOUT COMPLIC 03/01/2018 PASTOR CISNEROS MD Ot E66.9 OBESITY, UNSPECIFIED 03/01/2018 PASTOR CISNEROS MD Ot I73.9 PERIPHERAL VASCULAR DISEASE, UNSPECIFIED 03/01/2018 PASTOR CISNEROS MD Ot Z86.7 3 PRSNL HX OF TIA (TIA), AND CEREB INFRC W 03/01/2018 PASTOR CISNEROS MD Ot E11.9 TYPE 2 DIABETES MELLITUS WITHOUT COMPLIC 03/01/2018 PASTOR CISNEROS MD Ot M79.6 62 PAIN IN LEFT LOWER LEG 03/01/2018 AMELIA WRIGHT, PASTOR Blank Ot R51 HEADACHE 03/01/2018 GILBERT GOMEZ MD [...] (CURRENT) USE OF ANTITHROMBOTI 03/01/2018 GILBERT GOMEZ MD, Ot Z79.82 JAIL (CURRENT) USE OF ASPIRIN 03/01/2018 GILBERT GOMEZ MD Ot R42 DIZZINESS AND GIDDINESS 03/01/2018 GILBERT GOMEZ MD Ot R51 HEADACHE 03/01/2018 IGOR ARANA MD, Ot D47. 3 ESSENTIAL (HEMORRHAGIC) THROMBOCYTHEMIA 03/01/2018 IGOR ARANA MD Ot D72.829 ELEVATED WHITE BLOOD CELL COUNT, UNSPECI 03/01/2018 IGOR ARANA MD Ot E78. 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 81 MUSCLE WEAKNESS (GENERALIZED) 03/01/2018 IGOR ARANA MD Ot R00. 0 TACHYCARDIA, UNSPECIFIED 03/01/2018 IGOR ARANA MD Ot Z79.899 OTHER A P SUPERVISOR (CURRENT) DRUG THERAPY 03/01/2018 MIRELLA MCMILLAN APRN Ot J43.8 OTHER EMPHYSEMA 03/01/2018 MIRELLA MCMILLAN APRN Ot R91.1 SOLITARY PULMONARY NODULE 03/01/2018 MIRELLA MCMILLAN APRN Ot Z72.0 TOBACCO USE 03/01/2018 HIPOLITO, MIRELLA E SWEATER DESIGNER Ot J30.2 OTHER SEASONAL ALLERGIC RHINITIS 03/01/2018 MIRELLA MCMILLAN SWEATER DESIGNER Ot J44.9 CHRONIC OBSTRUCTIVE PULMONARY DISEASE, U 03/01/2018 MIRELLA MCMILLAN SWEATER DESIGNER Ot R91.1 SOLITARY PULMONARY NODULE 03/01/2018 MIRELLA MCMILLAN SWEATER DESIGNER Ot R91.8 OTHER NONSPECIFIC ABNORMAL FINDING OF GIOV[place] 03/01/2018 MIRELLA MCMILLAN SWEATER DESIGNER Ot Z72.0 TOBACCO USE 03/01/2018 SOTERO HUIZAR SWEATER DESIGNER Ot K43.9 VENTRAL HERNIA WITHOUT OBSTRUCTION OR GA 03/01/2018 SOTERO HUIZAR SWEATER DESIGNER Ot R16.0 HEPATOMEGALY, NOT ELSEWHERE CLASSIFIED 03/01/2018 YUKO GARRETT MD Ot I10 ESSENTIAL (PRIMARY) HYPERTENSION 03/01/2018 YUKO GARRETT MD J Ot J44. 9 CHRONIC OBSTRUCTIVE PULMONARY DISEASE, U 03/01/2018 YUKO GARRETT MD J Ot K21. 9 GASTRO-ESOPHAGEAL REFLUX DISEASE WITHOUT 03/01/2018 YUKO GARRETT MD J Ot R07. 9 CHEST PAIN, UNSPECIFIED 03/01/2018 YUKO GARRETT MD J Ot I10 ESSENTIAL (PRIMARY) HYPERTENSION 03/01/2018 YUKO GARRETT MD J Ot J44. 9 CHRONIC OBSTRUCTIVE PULMONARY DISEASE, U 03/01/2018 YUKO GARRETT MD J Ot K21. 9 GASTRO-ESOPHAGEAL REFLUX DISEASE WITHOUT 03/01/2018 YUKO GARRETT MD Ot R07. 9 CHEST PAIN, UNSPECIFIED 03/01/2018 SOTERO HUIZAR SWEATER DESIGNER Ot I70.0 ATHEROSCLEROSIS OF [place] 03/01/2018 SOTERO HUIZAR SWEATER DESIGNER Ot I70.90 UNSPECIFIED ATHEROSCLEROSIS 03/01/2018 SOTERO HUIZAR SWEATER DESIGNER Ot K43.9 VENTRAL HERNIA WITHOUT OBSTRUCTION OR GA 03/01/2018 SOTERO HUIZAR SWEATER DESIGNER Ot K76.0 FATTY (CHANGE OF) LIVER, NOT ELSEWHERE C 03/01/2018 SOTERO HUIZAR SWEATER DESIGNER Ot N39.0 URINARY TRACT INFECTION, SITE NOT SPECIF 03/01/2018 SILVIA SPENCER DO Ot K76.0 FATTY (CHANGE OF) LIVER, NOT ELSEWHERE C 03/01/2018 AMELIA WRIGHT, PASTOR Blank Ot 723.1 CERVICALGIA 03/01/2018 AMELIA WRIGHT, PASTOR Blank Ot 729.5 PAIN IN LIMB 03/01/2018 AMELIA WRIGHT, PASTOR Blank Ot 719.4 0 JOINT PAIN-UNSPEC 03/01/2018 PASTOR CISNEROS MD Ot 780.7 9 OTH MALAISE FATIGUE 03/01/2018 PASTOR CISNEROS MD Ot 782.3 EDEMA 03/01/2018 PASTOR CISNEROS MD Ot 785.0 TACHYCARDIA NOS 03/01/2018 PASTOR CISNEROS MD Ot 719.4 0 JOINT PAIN-UNSPEC 03/01/2018 PASTOR CISNEROS MD Ot 780.7 9 OTH MALAISE FATIGUE 03/01/2018 PASTOR CISNEROS MD Ot 782.3 EDEMA 03/01/2018 PASTOR CISNEROS MD Ot 785.0 TACHYCARDIA NOS 03/01/2018 AMELIA WRIGHT, PASTOR Blank Ot 305.1 TOBACCO USE DISORDER 03/01/2018 PASTOR CISNEROS MD Ot 401.9 HYPERTENSION NOS 03/01/2018 PASTOR CISNEROS MD Ot 428.0 CONGESTIVE HEART FAILURE NOS 03/01/2018 PASTOR CISNEROS MD Ot 782.3 EDEMA 03/01/2018 PASTOR CISNEROS MD Ot 785.0 TACHYCARDIA NOS 03/01/2018 PASTOR CISNEROS MD Ot 786.5 0 CHEST PAIN NOS 03/01/2018 SULEMA HUDSON MD Ot 397.0 TRICUSPID VALVE DISEASE 03/01/2018 SULEMA HUDSON MD Ot 401.9 HYPERTENSION NOS 03/01/2018 SULEMA HUDSON MD Ot 424.0 MITRAL VALVE DISORDER 03/01/2018 SULEMA HUDSON MD Ot 786.50 CHEST PAIN NOS 03/01/2018 SULEMA HUDSON MD Ot 401.9 HYPERTENSION NOS 03/01/2018 SULEMA HUDSON MD Ot 786.50 CHEST PAIN NOS 03/01/2018 PASTOR CISNEROS MD Ot 251.2 HYPOGLYCEMIA NOS 03/01/2018 PASTOR CISNEROS MD Ot 790.2 9 OTHER ABNORMAL GLUCOSE 03/01/2018 PASTOR CISNEROS MD Ot 780.3 9 OTHER CONVULSIONS 03/01/2018 PASTOR CISNEROS MD Ot 348.8 9 OTHER CONDITIONS OF BRAIN 03/01/2018 PASTOR CISNEROS MD Ot 780.9 7 ALTERED MENTAL STATUS 03/01/2018 PASTOR CISNEROS MD Ot 781.9 9 NERV/MUSCULOSKEL SYS SYMP NEC 03/01/2018 PASTOR CISNEROS MD Ot 530.8 1 ESOPHAGEAL REFLUX 03/01/2018 PASTOR CISNEROS MD Ot 553.3 DIAPHRAGMATIC HERNIA 03/01/2018 PASTOR CISNEROS MD Ot 787.2 0 DYSPHAGIA, UNSPECIFIED 03/01/2018 YUKO GARRETT MD Ot 401. 9 HYPERTENSION NOS 03/01/2018 YUKO GARRETT MD Ot 785. 0 TACHYCARDIA NOS 03/01/2018 YUKO GARRETT MD Ot 785. 1 PALPITATIONS 03/01/2018 YUKO GARRETT MD Ot 786. 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 2 PALPITATIONS 03/01/2018 YUKO GARRETT MD Ot R06. 02 SHORTNESS OF BREATH 03/01/2018 YUKO GARRETT MD Ot R07. 89 OTHER CHEST PAIN 03/01/2018 PASTOR CISNEROS MD Ot E11.9 TYPE 2 DIABETES MELLITUS WITHOUT COMPLIC 03/01/2018 PASTOR CISNEROS MD Ot Z79.4 A P SUPERVISOR (CURRENT) USE OF INSULIN 03/01/2018 PASTOR CISNEROS MD Ot E11.9 TYPE 2 DIABETES MELLITUS WITHOUT COMPLIC 03/01/2018 PASTOR CISNEROS MD Ot E66.9 OBESITY, UNSPECIFIED 03/01/2018 PASTOR CISNEROS MD Ot I73.9 PERIPHERAL VASCULAR DISEASE, UNSPECIFIED 03/01/2018 PASTOR CISNEROS MD Ot Z86.7 3 PRSNL HX OF TIA (TIA), AND CEREB INFRC W 03/01/2018 PASTOR CISNEROS MD Ot E11.9 TYPE 2 DIABETES MELLITUS WITHOUT COMPLIC 03/01/2018 PASTOR CISNEROS MD Ot M79.6 62 PAIN IN LEFT LOWER LEG 03/01/2018 PASTOR [...] HYPERTENSION 03/01/2018 GILBERT GOMEZ MD Ot Z79.02 A P SUPERVISOR (CURRENT) USE OF ANTITHROMBOTI 03/01/2018 GILBERT GOMEZ MD Ot Z79.82 A P SUPERVISOR (CURRENT) USE OF ASPIRIN 03/01/2018 GILBERT GOMEZ MD Ot R42 DIZZINESS AND GIDDINESS 03/01/2018 GILBERT GOMEZ MD Ot R51 HEADACHE 03/01/2018 IGOR ARANA MD, Ot D47. 3 ESSENTIAL (HEMORRHAGIC) THROMBOCYTHEMIA 03/01/2018 IGOR ARANA MD, Ot D72.829 ELEVATED WHITE BLOOD CELL COUNT, UNSPECI 03/01/2018 IGOR ARANA MD Ot E78. 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 81 MUSCLE WEAKNESS (GENERALIZED) 03/01/2018 IGOR ARANA MD Ot R00. 0 TACHYCARDIA, UNSPECIFIED 03/01/2018 IGOR ARAAN MD Ot Z79.899 OTHER A P SUPERVISOR (CURRENT) DRUG THERAPY 03/01/2018 MIRELLA MCMILLAN APRN Ot J43.8 OTHER EMPHYSEMA 03/01/2018 MIRELLA MCMILLAN APRN Ot R91.1 SOLITARY PULMONARY NODULE 03/01/2018 MIRELLA MCMILLAN APRN Ot Z72.0 TOBACCO USE 03/01/2018 MIRELLA MCMILLAN APRN Ot J30.2 OTHER SEASONAL ALLERGIC RHINITIS 03/01/2018 MIRELLA MCMILLAN APRN Ot J44.9 CHRONIC OBSTRUCTIVE PULMONARY DISEASE, U 03/01/2018 HIPOLITO, MIRELLA E SWEATER DESIGNER Ot R91.1 SOLITARY PULMONARY NODULE 03/01/2018 MIRELLA MCMILLAN SWEATER DESIGNER Ot R91.8 OTHER NONSPECIFIC ABNORMAL FINDING OF GIOVANNA 03/01/2018 MIRELLA MCMILLAN SWEATER DESIGNER Ot Z72.0 TOBACCO USE 03/01/2018 SOTERO HUIZAR SWEATER DESIGNER Ot K43.9 VENTRAL HERNIA WITHOUT OBSTRUCTION OR GA 03/01/2018 SOTERO HUIZAR SWEATER DESIGNER Ot R16.0 HEPATOMEGALY, NOT ELSEWHERE CLASSIFIED 03/01/2018 GERRY WRIGHT BASARTHUR J Ot I10 ESSENTIAL (PRIMARY) HYPERTENSION 03/01/2018 GERRY WRIGHT BASHAR J Ot J44. 9 CHRONIC OBSTRUCTIVE PULMONARY DISEASE, U 03/01/2018 YUKO GARRETT MD J Ot K21. 9 GASTRO-ESOPHAGEAL REFLUX DISEASE WITHOUT 03/01/2018 GERRY WRIGHT BASARTHUR J Ot R07. 9 CHEST PAIN, UNSPECIFIED 03/01/2018 GERRY WRIGHT BASHAR J Ot I10 ESSENTIAL (PRIMARY) HYPERTENSION 03/01/2018 GERRY WRIGHT BASHAR J Ot J44. 9 CHRONIC OBSTRUCTIVE PULMONARY DISEASE, U 03/01/2018 GERRY WRIGHT BASHAR J Ot K21. 9 GASTRO-ESOPHAGEAL REFLUX DISEASE WITHOUT 03/01/2018 GERRY WRIGHT, BASHAR J Ot R07. 9 CHEST PAIN, UNSPECIFIED 03/01/2018 SOTERO HUIZAR SWEATER DESIGNER Ot I70.0 ATHEROSCLEROSIS OF AORTA 03/01/2018 SOTERO HUIZAR SWEATER DESIGNER Ot I70.90 UNSPECIFIED ATHEROSCLEROSIS 03/01/2018 SOTERO HUIZAR SWEATER DESIGNER Ot K43.9 VENTRAL HERNIA WITHOUT OBSTRUCTION OR GA 03/01/2018 SOTERO HUIZAR SWEATER DESIGNER Ot K76.0 FATTY (CHANGE OF) LIVER, NOT ELSEWHERE C 03/01/2018 SOTERO HUIZAR SWEATER DESIGNER Ot N39.0 URINARY TRACT INFECTION, SITE NOT SPECIF 03/01/2018 SILVIA SPENCER DO Ot K76.0 FATTY (CHANGE OF) LIVER, NOT ELSEWHERE C 03/02/2018 RENY MEJIA Ot E11.9 TYPE 2 DIABETES MELLITUS WITHOUT COMPLIC 03/02/2018 RENY MEJIA Ot E78.00 PURE HYPERCHOLESTEROLEMIA, UNSPECIFIED 03/02/2018 RENY MEJIA Ot F41.9 ANXIETY DISORDER, UNSPECIFIED 03/02/2018 RENY MEJIA Ot G43.909 MIGRAINE, UNSP, NOT INTRACTABLE, WITHOUT 03/02/2018 ROB MEJIAIS Ot I10 ESSENTIAL (PRIMARY) HYPERTENSION 03/02/2018 ROB MEJIAIS Ot K21.9 GASTRO-ESOPHAGEAL REFLUX DISEASE WITHOUT 03/02/2018 ROB MEJIAIS Ot L29.9 PRURITUS, UNSPECIFIED 03/02/2018 RENY MEJIA Ot L53.9 ERYTHEMATOUS CONDITION, UNSPECIFIED 03/02/2018 RENY MEJIA Ot T80.89XA OTH COMP FOL INFUSION, TRANSFUSE AND THE 03/02/2018 ROB MEJIAIS Ot Z77.22 CNTCT W AND EXPSR TO ENVIRON TOBACCO SMO 03/02/2018 ROB MEJIAIS Ot Z79.02 A P SUPERVISOR (CURRENT) USE OF ANTITHROMBOTI 03/02/2018 RENY MEJIA Ot Z79.82 JAIL (CURRENT) USE OF ASPIRIN 03/02/2018 ROB MEJIAIS Ot Z80.0 FAMILY HISTORY OF MALIGNANT NEOPLASM OF 03/02/2018 ROB MEJIAIS Ot Z82.49 FAMILY HX OF ISCHEM HEART DIS AND OTH DI 03/02/2018 ROB MEJIAIS Ot Z86.73 PRSNL HX OF [...] OTHER SPECIFIED POSTPROCEDURAL STATES 03/10/2018 SOTERO HUIZAR APRN Ot I70.0 ATHEROSCLEROSIS OF AORTA 03/10/2018 SOTERO HUIZAR APRN Ot I70.90 UNSPECIFIED ATHEROSCLEROSIS 03/10/2018 SOTERO HUIZAR APRN Ot K43.9 VENTRAL HERNIA WITHOUT OBSTRUCTION OR GA 03/10/2018 GAYEMICHAELSOTEROBE Beckham APRN Ot K76.0 FATTY (CHANGE OF) LIVER, NOT ELSEWHERE C 03/10/2018 SOTERO HUIZAR APRN Ot N39.0 URINARY TRACT INFECTION, SITE NOT SPECIF 03/13/2018 THELMA FARAH APRN Ot E11 .9 TYPE 2 DIABETES MELLITUS WITHOUT COMPLIC 03/13/2018 THELMA FARAH APRN Ot E78.00 PURE HYPERCHOLESTEROLEMIA, UNSPECIFIED 03/13/2018 THELMA FARAH APRN Ot F41 .9 ANXIETY DISORDER, UNSPECIFIED 03/13/2018 THELMA FARAH APRN Ot G43.909 MIGRAINE, UNSP, NOT INTRACTABLE, WITHOUT 03/13/2018 THELMA FARAH APRN Ot I10 ESSENTIAL (PRIMARY) HYPERTENSION 03/13/2018 THELMA FARAH APRN Ot J40 BRONCHITIS, NOT SPECIFIED ACUTE OR CH 03/13/2018 THELMA FARAH APRN Ot K21 .9 GASTRO-ESOPHAGEAL REFLUX DISEASE WITHOUT 03/13/2018 THELMA FARAH APRN Ot R05 COUGH 03/13/2018 THELMA FARAH APRN Ot Z77.22 CNTCT W AND EXPSR TO ENVIRON TOBACCO SMO 03/13/2018 THELMA FARAH APRN Ot Z79.02 JAIL (CURRENT) USE OF ANTITHROMBOTI 03/13/2018 THELMA FARAH APRN Ot Z79.82 A P SUPERVISOR (CURRENT) USE OF ASPIRIN 03/13/2018 THELMA FARAH APRN Ot Z80 .0 FAMILY HISTORY OF MALIGNANT NEOPLASM OF 03/13/2018 [...] OF UR 03/13/2018 THELMA FARAH APRN Ot Z88 .0 ALLERGY STATUS TO PENICILLIN 03/13/2018 THELMA FARAH APRN Ot Z88 .5 ALLERGY STATUS TO NARCOTIC AGENT STATUS 03/13/2018 THELMA FARAH APRN Ot Z88 .8 ALLERGY STATUS TO OTH DRUG/MEDS/BIOL SUB 03/13/2018 THELMA FARAH APRN Ot Z98.51 TUBAL LIGATION STATUS 03/13/2018 THELMA FARAH APRN Ot Z98.890 OTHER SPECIFIED POSTPROCEDURAL STATES 03/16/2018 THELMA FARAH APRN Ot E11 .9 TYPE 2 DIABETES MELLITUS WITHOUT COMPLIC 03/16/2018 THELMA FARAH APRN Ot E78.00 PURE HYPERCHOLESTEROLEMIA, UNSPECIFIED 03/16/2018 THELMA FARAH APRN Ot F41 .9 ANXIETY DISORDER, UNSPECIFIED 03/16/2018 THELMA FARAH APRN Ot G43.909 MIGRAINE, UNSP, NOT INTRACTABLE, WITHOUT 03/16/2018 THELMA FARAH APRN Ot I10 ESSENTIAL (PRIMARY) HYPERTENSION 03/16/2018 THELMA FARAH APRN Ot J40 BRONCHITIS, NOT SPECIFIED ACUTE OR CH 03/16/2018 THELMA FARAH APRN Ot K21 .9 GASTRO-ESOPHAGEAL REFLUX DISEASE WITHOUT 03/16/2018 THELMA FARAH APRN Ot R05 COUGH 03/16/2018 THELMA FARAH APRN Ot Z77.22 CNTCT W AND EXPSR TO ENVIRON TOBACCO SMO 03/16/2018 THELMA FARAH APRN Ot Z79.02 A P SUPERVISOR (CURRENT) USE OF ANTITHROMBOTI 03/16/2018 THELMA FARAH APRN Ot Z79.82 A P SUPERVISOR (CURRENT) USE OF ASPIRIN 03/16/2018 THELMA FARAH APRN Ot Z80 .0 FAMILY HISTORY OF MALIGNANT NEOPLASM OF 03/16/2018 [...] OTHER DISEASES OF UR 03/16/2018 THELMA FARAH SWEATER DESIGNER Ot Z88 .0 ALLERGY STATUS TO PENICILLIN 03/16/2018 THELMA FARAH SWEATER DESIGNER Ot Z88 .5 ALLERGY STATUS TO NARCOTIC AGENT STATUS 03/16/2018 THELMA FARAH SWEATER DESIGNER Ot Z88 .8 ALLERGY STATUS TO OTH DRUG/MEDS/BIOL SUB 03/16/2018 THELMA FARAH APRN Ot Z98.51 TUBAL LIGATION STATUS 03/16/2018 THELMA FARAH APRN Ot Z98.890 OTHER SPECIFIED POSTPROCEDURAL STATES 03/18/2018 AKBAR EVANS MD Ot D72.829 ELEVATED WHITE BLOOD CELL COUNT, UNSPECI 03/18/2018 AKBAR EVANS MD Ot E11.9 TYPE 2 DIABETES MELLITUS WITHOUT COMPLIC 03/18/2018 AKBAR EVANS MD Ot E78.00 PURE HYPERCHOLESTEROLEMIA, UNSPECIFIED 03/18/2018 AKBAR EVNAS MD Ot E86.1 HYPOVOLEMIA 03/18/2018 AKBAR EVANS MD Ot F41.9 ANXIETY DISORDER, UNSPECIFIED 03/18/2018 AKBAR EVANS MD Ot G43.909 MIGRAINE, UNSP, NOT INTRACTABLE, WITHOUT 03/18/2018 AKBAR EVANS MD Ot I10 ESSENTIAL (PRIMARY) HYPERTENSION 03/18/2018 AKBAR EVANS MD, Ot K21.9 GASTRO-ESOPHAGEAL REFLUX DISEASE WITHOUT 03/18/2018 AKBAR EVANS MD Ot N39.0 URINARY TRACT INFECTION, SITE NOT SPECIF 03/18/2018 AKBAR EVANS MD Ot R30.0 DYSURIA 03/18/2018 AKBAR EVANS MD Ot Z77.22 CNTCT W AND EXPSR TO ENVIRON TOBACCO SMO 03/18/2018 AKBAR EVANS MD, Ot Z79.82 A P SUPERVISOR (CURRENT) USE OF ASPIRIN 03/18/2018 AKBAR EVANS MD, Ot Z80.0 FAMILY HISTORY OF MALIGNANT NEOPLASM OF 03/18/2018 AKBAR EVANS MD, Ot Z82.49 FAMILY HX OF ISCHEM HEART DIS AND OTH DI 03/18/2018 AKBAR EVANS MD, Ot Z86.19 PERSONAL HISTORY OF OTHER INFECTIOUS AND 03/18/2018 AKBAR EVANS MD, Ot Z86.73 PRSNL HX OF TIA (TIA), AND CEREB INFRC W 03/18/2018 AKBAR EVANS MD, Ot Z87.19 PERSONAL HISTORY OF OTHER DISEASES OF TH 03/18/2018 AKBAR EVANS MD, Ot Z87.440 PERSONAL HISTORY OF URINARY (TRACT) INFE 03/18/2018 AKBAR EVANS MD, Ot Z87.448 PERSONAL HISTORY OF OTHER DISEASES OF UR 03/18/2018 AKBAR EVANS MD, Ot Z88.0 ALLERGY STATUS TO PENICILLIN 03/18/2018 AKBAR EVANS MD, Ot Z88.5 ALLERGY STATUS TO NARCOTIC AGENT STATUS 03/18/2018 AKBAR EVANS MD, Ot Z88.8 ALLERGY STATUS TO OTH DRUG/MEDS/BIOL SUB 03/18/2018 AKBAR EVANS MD, Ot Z98.51 TUBAL LIGATION STATUS 03/18/2018 AKBAR EVANS MD, Ot Z98.890 OTHER SPECIFIED POSTPROCEDURAL STATES 03/20/2018 AKBAR EVANS MD, Ot D72.829 ELEVATED WHITE BLOOD CELL COUNT, UNSPECI 03/20/2018 AKBAR EVANS MD, Ot E11.9 TYPE 2 DIABETES MELLITUS WITHOUT COMPLIC 03/20/2018 AKBAR EVANS MD, Ot E78.00 PURE HYPERCHOLESTEROLEMIA, UNSPECIFIED 03/20/2018 AKBAR EVANS MD, Ot E86.1 HYPOVOLEMIA 03/20/2018 AKBAR EVANS MD, Ot F41.9 ANXIETY DISORDER, UNSPECIFIED 03/20/2018 AKBAR EVANS MD, Ot G43.909 MIGRAINE, UNSP, NOT INTRACTABLE, WITHOUT 03/20/2018 AKBAR EVANS MD, Ot I10 ESSENTIAL (PRIMARY) HYPERTENSION 03/20/2018 AKBAR EVANS MD, Ot K21.9 GASTRO-ESOPHAGEAL REFLUX DISEASE WITHOUT 03/20/2018 AKBAR EVANS MD Ot N39.0 URINARY TRACT INFECTION, SITE NOT SPECIF 03/20/2018 AKBAR EVANS MD, Ot R30.0 DYSURIA 03/20/2018 AKBAR EVANS MD, Ot Z77.22 CNTCT W AND EXPSR TO ENVIRON TOBACCO SMO 03/20/2018 AKBAR EVANS MD, Ot Z79.82 JAIL (CURRENT) USE OF ASPIRIN 03/20/2018 AKBAR EVANS MD, Ot Z80.0 FAMILY HISTORY OF MALIGNANT NEOPLASM OF 03/20/2018 AKBAR EVANS MD, Ot Z82.49 FAMILY HX OF ISCHEM HEART DIS AND OTH DI 03/20/2018 AKBAR EVANS MD, Ot Z86.19 PERSONAL HISTORY OF OTHER INFECTIOUS [...] OTHER DISEASES OF UR 03/20/2018 AKBAR EVANS MD Ot Z88.0 ALLERGY STATUS TO PENICILLIN 03/20/2018 [...] IN LIMB 03/23/2018 PASTOR CISNEROS MD Ot 719.4 0 JOINT PAIN-UNSPEC 03/23/2018 PASTOR CISNEROS MD Ot 780.7 9 OTH MALAISE FATIGUE 03/23/2018 AMELIA WRIGHT, PASTOR J Ot 782.3 EDEMA 03/23/2018 AMELIA WRIGHT, PASTOR J Ot 785.0 TACHYCARDIA NOS 03/23/2018 AMELIA WRIGHT, PASTOR J Ot 719.4 0 JOINT PAIN-UNSPEC 03/23/2018 AMELIA WRIGHT, PASTOR J Ot 780.7 9 OTH MALAISE FATIGUE 03/23/2018 PASTOR CISNEROS MD J Ot 782.3 EDEMA 03/23/2018 AMELIA WRIGHT, PASTOR J Ot 785.0 TACHYCARDIA NOS 03/23/2018 AMELIA WRIGHT, PASTOR J Ot 305.1 TOBACCO USE DISORDER 03/23/2018 AMELIA WRIGHT, PASTOR J Ot 401.9 HYPERTENSION NOS 03/23/2018 AMELIA WRIGHT, PASTOR J Ot 428.0 CONGESTIVE HEART FAILURE NOS 03/23/2018 AMELIA WRIGHT, PASTOR J Ot 782.3 EDEMA 03/23/2018 AMELIA WRIGHT, PASTOR J Ot 785.0 TACHYCARDIA NOS 03/23/2018 AMELIA WRIGHT, PASTOR Blank Ot 786.5 0 CHEST PAIN NOS 03/23/2018 TRISTAN WRIGHT, SULEMA Ot 397.0 TRICUSPID VALVE DISEASE 03/23/2018 TRISTAN WRIGHT, SULEMA Ot 401.9 HYPERTENSION NOS 03/23/2018 TRISTAN WRIGHT, ALBERTASEELAN Ot 424.0 MITRAL VALVE DISORDER 03/23/2018 TRISTAN WRIGHT, SULEMA Ot 786.50 CHEST PAIN NOS 03/23/2018 TRISTAN WRIGHT, SULEMA Ot 401.9 HYPERTENSION NOS 03/23/2018 TRISTAN WRIGHT, SULEMA Ot 786.50 CHEST PAIN NOS 03/23/2018 AMELIA WRIGHT, PASTOR Blank Ot 251.2 HYPOGLYCEMIA NOS 03/23/2018 AMELIA WRIGHT, PASTOR Blank Ot 790.2 9 OTHER ABNORMAL GLUCOSE 03/23/2018 AMELIA WRIGHT, PASTOR Blank Ot 780.3 9 OTHER CONVULSIONS 03/23/2018 AMELIA WRIGHT, PASTOR Blank Ot 348.8 9 OTHER CONDITIONS OF BRAIN 03/23/2018 AMELIA WRIGHT, PASTOR Blank Ot 780.9 7 ALTERED MENTAL STATUS 03/23/2018 AMELIA WRIGHT, PASTOR Blank Ot 781.9 9 NERV/MUSCULOSKEL SYS SYMP NEC 03/23/2018 PASTOR CISNEROS MD Ot 530.8 1 ESOPHAGEAL REFLUX 03/23/2018 AMELIA WRIGHT, PASTOR Blank Ot 553.3 DIAPHRAGMATIC HERNIA 03/23/2018 AMELIA WRIGHT, PASTOR Blank Ot 787.2 0 DYSPHAGIA, UNSPECIFIED 03/23/2018 YUKO GARRETT MD Ot 401. 9 HYPERTENSION NOS 03/23/2018 YUKO GARRETT MD Ot 785. 0 TACHYCARDIA NOS 03/23/2018 YUKO GARRETT MD Ot 785. 1 PALPITATIONS 03/23/2018 YUKO GARRETT MD Ot 786. 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 2 PALPITATIONS 03/23/2018 YUOK GARRETT MD Ot R06. 02 SHORTNESS OF BREATH 03/23/2018 YUKO GARRETT MD Ot R07. 89 OTHER CHEST PAIN 03/23/2018 PASTOR CISNEROS MD Ot E11.9 TYPE 2 DIABETES MELLITUS WITHOUT COMPLIC 03/23/2018 PASTOR CISNEROS MD Ot Z79.4 JAIL (CURRENT) USE OF INSULIN 03/23/2018 PASTOR CISNEROS MD Ot E11.9 TYPE 2 DIABETES MELLITUS WITHOUT COMPLIC 03/23/2018 PASTOR CISNEROS MD Ot E66.9 OBESITY, UNSPECIFIED 03/23/2018 PASTOR CISNEROS MD Ot I73.9 PERIPHERAL VASCULAR DISEASE, UNSPECIFIED 03/23/2018 PASTOR CISNEROS MD Ot Z86.7 3 PRSNL HX OF TIA (TIA), AND CEREB INFRC W 03/23/2018 PASTOR CISNEROS MD Ot E11.9 TYPE 2 DIABETES MELLITUS WITHOUT COMPLIC 03/23/2018 PASTOR CISNEROS MD Ot M79.6 62 PAIN IN LEFT LOWER LEG 03/23/2018 APSTOR CISNEROS MD Ot R51 HEADACHE 03/23/2018 GILBERT GOMEZ MD Ot 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) THROMBOCYTHEMIA 03/23/2018 GILBERT [...] ANTITHROMBOTI 03/23/2018 GILBERT GOMEZ MD Ot Z79.82 JAIL (CURRENT) USE OF ASPIRIN 03/23/2018 GILBERT GOMEZ MD Ot R42 DIZZINESS AND GIDDINESS 03/23/2018 GILBERT GOMEZ MD Ot R51 HEADACHE 03/23/2018 IGOR ARANA MD, Ot D47. 3 ESSENTIAL (HEMORRHAGIC) THROMBOCYTHEMIA 03/23/2018 IGRO ARANA MD, Ot D72.829 ELEVATED WHITE BLOOD CELL COUNT, UNSPECI 03/23/2018 IGOR ARANA MD, Ot E78. 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 81 MUSCLE WEAKNESS (GENERALIZED) 03/23/2018 IGOR ARANA MD Ot R00. 0 TACHYCARDIA, UNSPECIFIED 03/23/2018 IGOR ARANA MD Ot Z79.899 OTHER A P SUPERVISOR (CURRENT) DRUG THERAPY 03/23/2018 MIRELLA MCMILLAN APRN [...] OTHER NONSPECIFIC ABNORMAL FINDING OF GIOVANNA 03/23/2018 HIPOLITO, MIRELLA E SWEATER DESIGNER Ot Z72.0 TOBACCO USE 03/23/2018 SOTERO HUIZAR SWEATER DESIGNER Ot K43.9 VENTRAL HERNIA WITHOUT OBSTRUCTION OR GA 03/23/2018 SOTERO HUIZAR SWEATER DESIGNER Ot R16.0 HEPATOMEGALY, NOT ELSEWHERE CLASSIFIED 03/23/2018 GERRY WRIGHT, BASHAR J Ot I10 ESSENTIAL (PRIMARY) HYPERTENSION 03/23/2018 GERRY WRIGHT, BASARTHUR J Ot J44. 9 CHRONIC OBSTRUCTIVE PULMONARY DISEASE, U 03/23/2018 GERRY WRIGHT, BASARTHUR J Ot K21. 9 GASTRO-ESOPHAGEAL REFLUX DISEASE WITHOUT 03/23/2018 GERRY WRIGHT, BASHAR J Ot R07. 9 CHEST PAIN, UNSPECIFIED 03/23/2018 GERRY WRIGHT, BASHAR J Ot I10 ESSENTIAL (PRIMARY) HYPERTENSION 03/23/2018 GERRY WRIGHT, BASHAR J Ot J44. 9 CHRONIC OBSTRUCTIVE PULMONARY DISEASE, U 03/23/2018 GRERY WRIGHT, ANGELHAR J Ot K21. 9 GASTRO-ESOPHAGEAL REFLUX DISEASE WITHOUT 03/23/2018 GERRY WRIGHT, YUKO J Ot R07. 9 CHEST PAIN, UNSPECIFIED 03/23/2018 SOTERO HUIZAR SWEATER DESIGNER Ot I70.0 ATHEROSCLEROSIS OF [place] 03/23/2018 SOTERO HUIZAR SWEATER DESIGNER Ot I70.90 UNSPECIFIED ATHEROSCLEROSIS 03/23/2018 SOTERO HUIZAR SWEATER DESIGNER Ot K43.9 VENTRAL HERNIA WITHOUT OBSTRUCTION OR GA 03/23/2018 SOTERO HUIZAR SWEATER DESIGNER Ot K76.0 FATTY (CHANGE OF) LIVER, NOT ELSEWHERE C 03/23/2018 SOTREO HUIZAR SWEATER DESIGNER Ot N39.0 URINARY TRACT INFECTION, SITE NOT SPECIF 03/23/2018 SILVIA SPENCER DO B Ot K76.0 FATTY (CHANGE OF) LIVER, NOT ELSEWHERE C 04/25/2018 SILVIA SPENCER DO B Ot K76.0 FATTY (CHANGE OF) LIVER, NOT ELSEWHERE C 05/04/2018 SILVIA SPENCER DO B Ot K76.0 FATTY (CHANGE OF) LIVER, NOT ELSEWHERE C 05/29/2018 AMELIA WRIGHT, PASTOR Blank Ot 719.4 0 JOINT PAIN-UNSPEC 05/29/2018 AMELIA WRIGHT, PASTOR Blank Ot 780.7 9 OTH MALAISE FATIGUE 05/29/2018 AMELIA WRIGHT, PASTOR Blank Ot 782.3 EDEMA 05/29/2018 AMELIA WRIGHT, PASTOR Blank Ot 785.0 TACHYCARDIA NOS 05/29/2018 AMELIA WRIGHT, PASTOR J Ot 719.4 0 JOINT PAIN-UNSPEC 05/29/2018 AMELIA WRIGHT, PASTOR J Ot 780.7 9 OTH MALAISE FATIGUE 05/29/2018 AMELIA WRIGHT, PASTOR J Ot 782.3 EDEMA 05/29/2018 AMELIA WRIGHT, PASTOR J Ot 785.0 TACHYCARDIA NOS 05/29/2018 AMELIA WRIGHT, PASTOR J Ot 305.1 TOBACCO USE DISORDER 05/29/2018 AMELIA WRIGHT, PASTOR J Ot 401.9 HYPERTENSION NOS 05/29/2018 AMELIA WRIGHT, PASTOR J Ot 428.0 CONGESTIVE HEART FAILURE NOS 05/29/2018 AMELIA WRIGHT, PASTOR J Ot 782.3 EDEMA 05/29/2018 AMELIA WRIGHT, PASTOR J Ot 785.0 TACHYCARDIA NOS 05/29/2018 AMELIA WRIGHT, PASTOR J Ot 786.5 0 CHEST PAIN NOS 05/29/2018 TRISTAN WRIGHT, SULEMA Ot 397.0 TRICUSPID VALVE DISEASE 05/29/2018 TRISTAN WRIGHT, SULEMA Ot 401.9 HYPERTENSION NOS 05/29/2018 TRISTAN WRIGHT, JAYASEELAN Ot 424.0 MITRAL VALVE DISORDER 05/29/2018 TRISTAN WRIGHT, JAYASEELAN Ot 786.50 CHEST PAIN NOS 05/29/2018 TRISTAN WRIGHT, JAYASEELAN Ot 401.9 HYPERTENSION NOS 05/29/2018 TRISTAN WRIGHT, JAYASEELAN Ot 786.50 CHEST PAIN NOS 05/29/2018 AMELIA WRIGHT, PASTOR J Ot 251.2 HYPOGLYCEMIA NOS 05/29/2018 AMELIA WRIGHT, PASTOR Blank Ot 790.2 9 OTHER ABNORMAL GLUCOSE 05/29/2018 AMELIA WRIGHT, PASTOR J Ot 780.3 9 OTHER CONVULSIONS 05/29/2018 AMELIA WRIGHT, PASTOR J Ot 348.8 9 OTHER CONDITIONS OF BRAIN 05/29/2018 AMELIA WRIGHT, PASTOR J Ot 780.9 7 ALTERED MENTAL STATUS 05/29/2018 AMELIA WRIGHT, PASTOR J Ot 781.9 9 NERV/MUSCULOSKEL SYS SYMP NEC 05/29/2018 AMELIA WRIGHT, PASTOR Blank Ot 530.8 1 ESOPHAGEAL REFLUX 05/29/2018 AMELIA WRIGHT, PASTOR J Ot 553.3 DIAPHRAGMATIC HERNIA 05/29/2018 AMELIA WRIGHT, PASTOR Blank Ot 787.2 0 DYSPHAGIA, UNSPECIFIED 05/29/2018 GERRY WRIGHT, YUKO Blank Ot 401. 9 HYPERTENSION NOS 05/29/2018 GERRY WRIGHT, YUKO J Ot 785. 0 TACHYCARDIA NOS 05/29/2018 YUKO GARRETT MD Ot 785. 1 PALPITATIONS 05/29/2018 YUKO GARRETT MD Ot 786. 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 2 PALPITATIONS 05/29/2018 YUKO GARRETT MD Ot R06. 02 SHORTNESS OF BREATH 05/29/2018 YUKO GARRETT MD Ot R07. 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 3 ESSENTIAL (HEMORRHAGIC) THROMBOCYTHEMIA 05/29/2018 IGOR ARANA MD, Ot D72.829 ELEVATED WHITE BLOOD CELL COUNT, UNSPECI 05/29/2018 IGOR ARANA MD, Ot E78. 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 81 MUSCLE WEAKNESS (GENERALIZED) 05/29/2018 IGOR ARANA MD Ot R00. 0 TACHYCARDIA, UNSPECIFIED 05/29/2018 IGOR ARANA MD Ot [...] WITHOUT OBSTRUCTION OR GA 05/29/2018 SOTERO HUIZAR SWEATER DESIGNER Ot R16.0 HEPATOMEGALY, NOT ELSEWHERE CLASSIFIED 05/29/2018 YUKO GARRETT MD Ot I10 ESSENTIAL (PRIMARY) HYPERTENSION 05/29/2018 YUKO GARRETT MD Ot J44. 9 CHRONIC OBSTRUCTIVE PULMONARY DISEASE, U 05/29/2018 YUKO GARRETT MD Ot K21. 9 GASTRO-ESOPHAGEAL REFLUX DISEASE WITHOUT 05/29/2018 YUKO GARRETT MD Ot R07. 9 CHEST PAIN, UNSPECIFIED 05/29/2018 YUKO GARRETT MD Ot I10 ESSENTIAL (PRIMARY) HYPERTENSION 05/29/2018 YUKO GARRETT MD Ot J44. 9 CHRONIC OBSTRUCTIVE PULMONARY DISEASE, U 05/29/2018 YUKO GARRETT MD Ot K21. 9 GASTRO-ESOPHAGEAL REFLUX DISEASE WITHOUT 05/29/2018 YUKO GARRETT MD Ot R07. 9 CHEST PAIN, UNSPECIFIED 05/29/2018 SOTERO HUIZAR SWEATER DESIGNER Ot I70.0 ATHEROSCLEROSIS OF [place]ORT[place] 05/29/2018 SOTERO HUIZAR SWEATER DESIGNER Ot I70.90 UNSPECIFIED ATHEROSCLEROSIS 05/29/2018 SOTERO HUIZAR SWEATER DESIGNER Ot K43.9 VENTRAL HERNIA WITHOUT OBSTRUCTION OR GA 05/29/2018 SOTERO HUIZAR SWEATER DESIGNER Ot K76.0 FATTY (CHANGE OF) LIVER, NOT ELSEWHERE C 05/29/2018 SOTERO HUIZAR SWEATER DESIGNER Ot N39.0 URINARY TRACT INFECTION, SITE NOT SPECIF 05/29/2018 SILVIA SPENCER DO Ot K76.0 FATTY (CHANGE OF) LIVER, NOT ELSEWHERE C 05/29/2018 AMELIA WRIGHT, PASTOR Blank Ot 719.4 0 JOINT PAIN-UNSPEC 05/29/2018 AMELIA WRIGHT, PASTOR Blank Ot 780.7 9 OTH MALAISE FATIGUE 05/29/2018 AMELIA WRIGHT, PASTOR Blank Ot 782.3 EDEMA 05/29/2018 AMELIA WRIGHT, PASTOR Blank Ot 785.0 TACHYCARDIA NOS 05/29/2018 AMELIA WRIGHT, PASTOR Blank Ot 719.4 0 JOINT PAIN-UNSPEC 05/29/2018 AMELIA WRIGHT, PASTOR Blank Ot 780.7 9 OTH MALAISE FATIGUE 05/29/2018 AMELIA WRIGHT, PASTOR Blank Ot 782.3 EDEMA 05/29/2018 AMELIA WRIGHT, PASTOR Blank Ot 785.0 TACHYCARDIA NOS 05/29/2018 AMELIA WRIGHT, PASTOR J Ot 305.1 TOBACCO USE DISORDER 05/29/2018 AMELIA WRIGHT, PASTOR J Ot 401.9 HYPERTENSION NOS 05/29/2018 AMELIA WRIGHT, PASTOR J Ot 428.0 CONGESTIVE HEART FAILURE NOS 05/29/2018 AMELIA WRIGHT, PASTOR J Ot 782.3 EDEMA 05/29/2018 AMELIA WRIGHT, PASTOR J Ot 785.0 TACHYCARDIA NOS 05/29/2018 AMELIA WRIGHT, PASTOR J Ot 786.5 0 CHEST PAIN NOS 05/29/2018 TRISTAN WRIGHT, SULEMA Ot 397.0 TRICUSPID VALVE DISEASE 05/29/2018 TRISTAN WRIGTH, JAYASEGUCCI Ot 401.9 HYPERTENSION NOS 05/29/2018 TRISTAN WRIGHT, JAYASEELAN Ot 424.0 MITRAL VALVE DISORDER 05/29/2018 TRISTAN WRIGHT, SULEMA Ot 786.50 CHEST PAIN NOS 05/29/2018 TRISTAN WRIGHT, SULEMA Ot 401.9 HYPERTENSION NOS 05/29/2018 TRISTAN WRIGHT, ADINAELAN Ot 786.50 CHEST PAIN NOS 05/29/2018 AMELIA WRIGHT, PASTOR Blank Ot 251.2 HYPOGLYCEMIA NOS 05/29/2018 AMELIA WRIGHT, PASTOR J Ot 790.2 9 OTHER ABNORMAL GLUCOSE 05/29/2018 AMELIA WRIGHT, PASTOR J Ot 780.3 9 OTHER CONVULSIONS 05/29/2018 AMELIA WRIGHT, PASTOR J Ot 348.8 9 OTHER CONDITIONS OF BRAIN 05/29/2018 AMELIA WRIGHT, PASTOR J Ot 780.9 7 ALTERED MENTAL STATUS 05/29/2018 AMELIA WRIGHT, PASTOR J Ot 781.9 9 NERV/MUSCULOSKEL SYS SYMP NEC 05/29/2018 AMELIA WRIGHT, PASTOR J Ot 530.8 1 ESOPHAGEAL REFLUX 05/29/2018 AMELIA WRIGHT, PASTOR J Ot 553.3 DIAPHRAGMATIC HERNIA 05/29/2018 AMELIA WRIGHT, PASTOR J Ot 787.2 0 DYSPHAGIA, UNSPECIFIED 05/29/2018 GERRY WRIGHT, YUKO J Ot 401. 9 HYPERTENSION NOS 05/29/2018 GERRY WRIGHT, YUKO Blank Ot 785. 0 TACHYCARDIA NOS 05/29/2018 GERRY WRIGHT, YUKO J Ot 785. 1 PALPITATIONS 05/29/2018 GERRY WRIGHT, YUKO J Ot 786. 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 2 PALPITATIONS 05/29/2018 YUKO GARRETT MD Ot R06. 02 SHORTNESS OF BREATH 05/29/2018 YUKO GARRETT MD Ot R07. 89 OTHER CHEST PAIN 05/29/2018 PASTOR CISNEROS MD Ot E11.9 TYPE 2 DIABETES MELLITUS WITHOUT COMPLIC 05/29/2018 PASTOR CISNEROS MD Ot Z79.4 JAIL (CURRENT) USE OF INSULIN 05/29/2018 PASTOR CISNEROS MD Ot E11.9 TYPE 2 DIABETES MELLITUS WITHOUT COMPLIC 05/29/2018 PASTOR CISNEROS MD Ot E66.9 OBESITY, UNSPECIFIED 05/29/2018 PASTOR CISNEROS MD Ot I73.9 PERIPHERAL VASCULAR DISEASE, UNSPECIFIED 05/29/2018 PASTOR CISNEROS MD Ot Z86.7 3 PRSNL HX OF TIA (TIA), AND CEREB INFRC W 05/29/2018 PASTOR CISNEROS MD Ot E11.9 TYPE 2 DIABETES MELLITUS WITHOUT COMPLIC 05/29/2018 PASTOR CISNEROS MD Ot M79.6 62 PAIN IN LEFT LOWER LEG 05/29/2018 PASTOR [...] HYPERTENSION 05/29/2018 GILBERT GOMEZ MD Ot Z79.02 A P SUPERVISOR (CURRENT) USE OF ANTITHROMBOTI 05/29/2018 GILBERT GOMEZ MD Ot Z79.82 A P SUPERVISOR (CURRENT) USE OF ASPIRIN 05/29/2018 GILBERT GOMEZ MD Ot R42 DIZZINESS AND GIDDINESS 05/29/2018 GILBERT GOMEZ MD Ot R51 HEADACHE 05/29/2018 IGOR ARANA MD Ot D47. 3 ESSENTIAL (HEMORRHAGIC) THROMBOCYTHEMIA 05/29/2018 IGOR ARANA MD Ot D72.829 ELEVATED WHITE BLOOD CELL COUNT, UNSPECI 05/29/2018 IGOR ARANA MD Ot E78. 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 81 MUSCLE WEAKNESS (GENERALIZED) 05/29/2018 IGOR ARANA MD Ot R00. 0 TACHYCARDIA, UNSPECIFIED 05/29/2018 IGOR ARANA MD Ot Z79.899 OTHER A P SUPERVISOR (CURRENT) DRUG THERAPY 05/29/2018 MIRELLA MCMILLAN APRN Ot J43.8 OTHER EMPHYSEMA 05/29/2018 MIRELLA MCMILLAN SWEATER DESIGNER Ot R91.1 SOLITARY PULMONARY NODULE 05/29/2018 MIRELLA [...] (PRIMARY) HYPERTENSION 05/29/2018 YUKO GARRETT MD Ot J44. 9 CHRONIC OBSTRUCTIVE PULMONARY DISEASE, U 05/29/2018 YUKO GARRETT MD Ot K21. 9 GASTRO-ESOPHAGEAL REFLUX DISEASE WITHOUT 05/29/2018 GERRY WRIGHT, YUKO Blank Ot R07. 9 CHEST PAIN, UNSPECIFIED 05/29/2018 GERRY WRIGHT, YUKO Blank Ot I10 ESSENTIAL (PRIMARY) HYPERTENSION 05/29/2018 GERRY WRIGHT, YUKO Blank Ot J44. 9 CHRONIC OBSTRUCTIVE PULMONARY DISEASE, U 05/29/2018 GERRY WRIGHT, YUKO Blank Ot K21. 9 GASTRO-ESOPHAGEAL REFLUX DISEASE WITHOUT 05/29/2018 GERRY WRIGHT, YUKO Blank Ot R07. 9 CHEST PAIN, UNSPECIFIED 05/29/2018 SOTERO HUIZAR R SWEATER DESIGNER Ot I70.0 ATHEROSCLEROSIS OF AORTA 05/29/2018 SOTERO HUIZAR R SWEATER DESIGNER Ot I70.90 UNSPECIFIED ATHEROSCLEROSIS 05/29/2018 SOTERO HUIZAR R SWEATER DESIGNER Ot K43.9 VENTRAL HERNIA WITHOUT OBSTRUCTION OR GA 05/29/2018 SOTERO HUIZAR SWEATER DESIGNER Ot K76.0 FATTY (CHANGE OF) LIVER, NOT ELSEWHERE C 05/29/2018 SOTERO HUIZAR R SWEATER DESIGNER Ot N39.0 URINARY TRACT INFECTION, SITE NOT SPECIF 05/29/2018 SILVIA SPENCER DO Ot K76.0 FATTY (CHANGE OF) LIVER, NOT ELSEWHERE C 06/03/2018 MIRELLA MCMILLAN SWEATER DESIGNER Ot R06.02 SHORTNESS OF BREATH 06/03/2018 LIDIA MCMILLANINE E SWEATER DESIGNER Ot R91.1 SOLITARY PULMONARY NODULE 06/03/2018 MIRELLA MCMILLAN SWEATER DESIGNER Ot Z72.0 TOBACCO USE 06/03/2018 LIDIA MCMILLANINE E SWEATER DESIGNER Ot Z90.49 ACQUIRED ABSENCE OF OTHER SPECIFIED PART 06/06/2018 MIRELLA MCMILLAN SWEATER DESIGNER Ot R06.02 SHORTNESS OF BREATH 06/06/2018 LIDIA MCMILLANINE Shefali SWEATER DESIGNER Ot R91.1 SOLITARY PULMONARY NODULE 06/06/2018 MIRELLA MCMILLAN SWEATER DESIGNER Ot Z72.0 TOBACCO USE 06/06/2018 LIDIA MCMILLANINE E SWEATER DESIGNER Ot Z90.49 ACQUIRED ABSENCE OF OTHER SPECIFIED PART 06/28/2018 MIRELLA MCMILLAN E SWEATER DESIGNER Ot R06.02 SHORTNESS OF BREATH 06/28/2018 MIRELLA MCMILLAN SWEATER DESIGNER Ot R91.1 SOLITARY PULMONARY NODULE 06/28/2018 LIDIA MCMILLANINE Shefali SWEATER DESIGNER Ot Z72.0 TOBACCO USE 06/28/2018 MIRELLA MCMILLAN APRN Ot Z90.49 ACQUIRED ABSENCE OF OTHER SPECIFIED PART 06/29/2018 AMELIA WRIGHT, PASTOR J Ot 719.4 0 JOINT PAIN-UNSPEC 06/29/2018 PASTOR CISNEROS MD Ot 780.7 9 OTH MALAISE FATIGUE 06/29/2018 PASTOR CISNEROS MD J Ot 782.3 EDEMA 06/29/2018 AMELIA WRIGHT, PASTOR J Ot 785.0 TACHYCARDIA NOS 06/29/2018 AMELIA WRIGHT, PASTOR J Ot 719.4 0 JOINT PAIN-UNSPEC 06/29/2018 AMELIA WRIGHT, PASTOR J Ot 780.7 9 OTH MALAISE FATIGUE 06/29/2018 AMELIA WRIGHT, PASTOR J Ot 782.3 EDEMA 06/29/2018 AMELIA WRIGHT, PASTOR J Ot 785.0 TACHYCARDIA NOS 06/29/2018 AMELIA WRIGHT, PASTOR J Ot 305.1 TOBACCO USE DISORDER 06/29/2018 PASTOR CISNEROS MD Ot 401.9 HYPERTENSION NOS 06/29/2018 AMELIA WRIGHT, PASTOR J Ot 428.0 CONGESTIVE HEART FAILURE NOS 06/29/2018 PASTOR CISNEROS MD J Ot 782.3 EDEMA 06/29/2018 AMELIA WRIGHT, PASTOR J Ot 785.0 TACHYCARDIA NOS 06/29/2018 AMELIA WRIGHT, PASTOR Blank Ot 786.5 0 CHEST PAIN NOS 06/29/2018 TRISTAN WRIGHT, SULEMA Ot 397.0 TRICUSPID VALVE DISEASE 06/29/2018 TRISTAN WRIGHT, SULEMA Ot 401.9 HYPERTENSION NOS 06/29/2018 TRISTAN WRIGHT, SULEMA Ot 424.0 MITRAL VALVE DISORDER 06/29/2018 SULEMA HUDSON MD Ot 786.50 CHEST PAIN NOS 06/29/2018 SULEMA HUDSON MD Ot 401.9 HYPERTENSION NOS 06/29/2018 TRISTAN WRIGHT, SULEMA Ot 786.50 CHEST PAIN NOS 06/29/2018 PASTOR CISNEROS MD Ot 251.2 HYPOGLYCEMIA NOS 06/29/2018 PASTOR CISNEROS MD Ot 790.2 9 OTHER ABNORMAL GLUCOSE 06/29/2018 PASTOR CISNEROS MD Ot 780.3 9 OTHER CONVULSIONS 06/29/2018 PASTOR CISNEROS MD Ot 348.8 9 OTHER CONDITIONS OF BRAIN 06/29/2018 PASTOR CISNEROS MD Ot 780.9 7 ALTERED MENTAL STATUS 06/29/2018 PASTOR CISNEROS MD Ot 781.9 9 NERV/MUSCULOSKEL SYS SYMP NEC 06/29/2018 PASTOR CISNEROS MD Ot 530.8 1 ESOPHAGEAL REFLUX 06/29/2018 PASTOR CISNEROS MD Ot 553.3 DIAPHRAGMATIC HERNIA 06/29/2018 PASTOR CISNEROS MD Ot 787.2 0 DYSPHAGIA, UNSPECIFIED 06/29/2018 YUKO GARRETT MD Ot 401. 9 HYPERTENSION NOS 06/29/2018 YUKO GARRETT MD Ot 785. 0 TACHYCARDIA NOS 06/29/2018 YUKO GARRETT MD Ot 785. 1 PALPITATIONS 06/29/2018 YUKO GARRETT MD Ot 786. 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 2 PALPITATIONS 06/29/2018 YUKO GARRETT MD Ot R06. 02 SHORTNESS OF BREATH 06/29/2018 YUKO GARRETT MD Ot R07. 89 OTHER CHEST PAIN 06/29/2018 PASTOR CISNEROS MD Ot E11.9 TYPE 2 DIABETES MELLITUS WITHOUT COMPLIC 06/29/2018 PASTOR CISNEROS MD Ot Z79.4 JAIL (CURRENT) USE OF INSULIN 06/29/2018 PASTOR CISNEROS MD Ot E11.9 TYPE 2 DIABETES MELLITUS WITHOUT COMPLIC 06/29/2018 PASTOR CISNEROS MD Ot E66.9 OBESITY, UNSPECIFIED 06/29/2018 PASTOR CISNEROS MD Ot I73.9 PERIPHERAL VASCULAR DISEASE, UNSPECIFIED 06/29/2018 PASTOR CISNEROS MD Ot Z86.7 3 PRSNL HX OF TIA (TIA), AND CEREB INFRC W 06/29/2018 PASTOR CISNEROS MD Ot E11.9 TYPE 2 DIABETES MELLITUS WITHOUT COMPLIC 06/29/2018 PASTOR CISNEROS MD Ot M79.6 62 PAIN IN LEFT LOWER LEG 06/29/2018 PASTOR CISNEROS MD Ot R51 HEADACHE 06/29/2018 JASON WRIGHT, [facility] Ot 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) THROMBOCYTHEMIA 06/29/2018 GILBERT [...] R51 HEADACHE 06/29/2018 IGOR ARANA MD Ot D47. 3 ESSENTIAL (HEMORRHAGIC) THROMBOCYTHEMIA 06/29/2018 IGOR ARANA MD Ot D72.829 ELEVATED WHITE BLOOD CELL COUNT, UNSPECI 06/29/2018 IGOR ARANA MD Ot E78. 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 81 MUSCLE WEAKNESS (GENERALIZED) 06/29/2018 IGOR ARANA MD Ot R00. 0 TACHYCARDIA, UNSPECIFIED 06/29/2018 IGOR ARANA MD Ot Z79.899 OTHER A P SUPERVISOR (CURRENT) DRUG THERAPY 06/29/2018 MIRELLA MCMILLAN APRN Ot J43.8 OTHER EMPHYSEMA 06/29/2018 MIRELLA MCMILLAN APRN Ot R91.1 SOLITARY PULMONARY NODULE 06/29/2018 MIRELLA MCMILLAN APRN Ot Z72.0 TOBACCO USE 06/29/2018 MIRELLA MCMILLAN APRN Ot J30.2 OTHER SEASONAL ALLERGIC RHINITIS 06/29/2018 MIRELLA MCMILLAN APRN Ot J44.9 CHRONIC OBSTRUCTIVE PULMONARY DISEASE, U 06/29/2018 MIRELLA MCMILLAN SWEATER DESIGNER Ot R91.1 SOLITARY PULMONARY NODULE 06/29/2018 MIRELLA MCMILLAN SWEATER DESIGNER Ot R91.8 OTHER NONSPECIFIC ABNORMAL FINDING OF [place] 06/29/2018 MIRELLA MCMILLAN SWEATER DESIGNER Ot Z72.0 TOBACCO USE 06/29/2018 SOTERO HUIZAR SWEATER DESIGNER Ot K43.9 VENTRAL HERNIA WITHOUT OBSTRUCTION OR GA 06/29/2018 SOTERO HUIZAR SWEATER DESIGNER Ot R16.0 HEPATOMEGALY, NOT ELSEWHERE CLASSIFIED 06/29/2018 YUKO GARRETT MD J Ot I10 ESSENTIAL (PRIMARY) HYPERTENSION 06/29/2018 YUKO GARRETT MD J Ot J44. 9 CHRONIC OBSTRUCTIVE PULMONARY DISEASE, U 06/29/2018 YUKO GARRETT MD J Ot K21. 9 GASTRO-ESOPHAGEAL REFLUX DISEASE WITHOUT 06/29/2018 YUKO GARRETT MD J Ot R07. 9 CHEST PAIN, UNSPECIFIED 06/29/2018 YUKO GARRETT MD J Ot I10 ESSENTIAL (PRIMARY) HYPERTENSION 06/29/2018 YUKO GARRETT MD J Ot J44. 9 CHRONIC OBSTRUCTIVE PULMONARY DISEASE, U 06/29/2018 YUKO GARRETT MD J Ot K21. 9 GASTRO-ESOPHAGEAL REFLUX DISEASE WITHOUT 06/29/2018 YUKO GARRETT MD Ot R07. 9 CHEST PAIN, UNSPECIFIED 06/29/2018 MIRELLA MCMILLAN SWEATER DESIGNER Ot R06.02 SHORTNESS OF BREATH 06/29/2018 MIRELLA MCMILLAN SWEATER DESIGNER Ot R91.1 SOLITARY PULMONARY NODULE 06/29/2018 MIRELLA MCMILLAN SWEATER DESIGNER Ot Z72.0 TOBACCO USE 06/29/2018 MIRELLA MCMILLAN SWEATER DESIGNER Ot Z90.49 ACQUIRED ABSENCE OF OTHER SPECIFIED PART 06/29/2018 SOTERO HUIZAR SWEATER DESIGNER Ot I70.0 ATHEROSCLEROSIS OF [place] 06/29/2018 SOTERO HUIZAR SWEATER DESIGNER Ot I70.90 UNSPECIFIED ATHEROSCLEROSIS 06/29/2018 SOTERO HUIZAR SWEATER DESIGNER Ot K43.9 VENTRAL HERNIA WITHOUT OBSTRUCTION OR GA 06/29/2018 SOTERO HUIZAR SWEATER DESIGNER Ot K76.0 FATTY (CHANGE OF) LIVER, NOT ELSEWHERE C 06/29/2018 SOTERO HUIZAR SWEATER DESIGNER Ot N39.0 URINARY TRACT INFECTION, SITE NOT SPECIF 06/29/2018 SILVIA SPENCER DO Sudhakar Ot K76.0 FATTY (CHANGE OF) LIVER, NOT ELSEWHERE C 07/10/2018 MIRELLA MCMILLAN APRN Ot J43.8 OTHER EMPHYSEMA 07/10/2018 MIRELLA MCMILLAN APRN Ot R91.1 SOLITARY PULMONARY NODULE 07/10/2018 MIRELLA MCMILLAN APRN Ot Z72.0 TOBACCO USE 08/11/2018 PASTOR CISNEROS MD Ot E11.9 TYPE 2 DIABETES MELLITUS WITHOUT COMPLIC 08/11/2018 PASTOR CISNEROS MD Ot E66.9 OBESITY, UNSPECIFIED 08/11/2018 PASTOR CISNEROS MD Ot I73.9 PERIPHERAL VASCULAR DISEASE, UNSPECIFIED 08/11/2018 PASTOR CISNEROS MD Ot Z86.7 3 PRSNL HX OF TIA (TIA), AND CEREB INFRC W 08/11/2018 IGOR ARANA MD, Ot D47. 3 ESSENTIAL (HEMORRHAGIC) THROMBOCYTHEMIA 08/11/2018 IGOR ARANA MD, Ot D72.829 ELEVATED WHITE BLOOD CELL COUNT, UNSPECI 08/11/2018 IGOR ARANA MD, Ot E78. 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 81 MUSCLE WEAKNESS (GENERALIZED) 08/11/2018 IGOR ARANA MD Ot R00. 0 TACHYCARDIA, UNSPECIFIED 08/11/2018 IGOR ARANA MD, Ot Z79.899 OTHER A P SUPERVISOR (CURRENT) DRUG THERAPY 08/11/2018 ZACK GRIMALDO MD, Ot Z01.81 8 ENCOUNTER FOR OTHER PREPROCEDURAL EXAMIN 08/21/2018 ZACK GRIMALDO MD, Ot E11.9 TYPE 2 DIABETES MELLITUS WITHOUT COMPLIC 08/21/2018 ZACK GRIMALDO MD, Ot E66.9 OBESITY, UNSPECIFIED 08/21/2018 ZACK GRIMALDO MD Ot E78.00 PURE HYPERCHOLESTEROLEMIA, UNSPECIFIED 08/21/2018 ZACK GRIMALDO MD Ot F17.21 0 NICOTINE DEPENDENCE, CIGARETTES, UNCOMPL 08/21/2018 ZACK GRIMALDO MD Ot I10 ESSENTIAL (PRIMARY) HYPERTENSION 08/21/2018 ZACK GRIMALDO MD, Ot I25.10 ATHSCL HEART DISEASE OF [place] CORONARY 08/21/2018 ZACK GRIMALDO MD Ot 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 08/21/2018 ZACK GRIMALDO MD, Ot K21.9 GASTRO-ESOPHAGEAL REFLUX DISEASE WITHOUT 08/21/2018 ZACK GRIMALDO MD, Ot K43.2 INCISIONAL HERNIA WITHOUT OBSTRUCTION OR 08/21/2018 ZACK GRIMALDO MD, Ot K59.00 CONSTIPATION, UNSPECIFIED 08/21/2018 ZACK GRIMALDO MD, Ot Z68.31 BODY MASS INDEX (BMI) 31.0-31.9, ADULT 08/21/2018 ZACK GRIMALDO MD, Ot Z79.02 A P SUPERVISOR (CURRENT) USE OF ANTITHROMBOTI 08/21/2018 ZACK GRIMALDO MD, Ot Z79.4 JAIL (CURRENT) USE OF INSULIN 08/21/2018 ZACK GRIMALDO MD, Ot Z79.82 A P SUPERVISOR (CURRENT) USE OF ASPIRIN 08/21/2018 ZACK GRIMALDO MD, Ot Z79.89 9 OTHER A P SUPERVISOR (CURRENT) DRUG THERAPY 08/23/2018 ZACK GRIMALDO MD, Ot E11.9 TYPE 2 DIABETES MELLITUS WITHOUT COMPLIC 08/23/2018 ZACK GRIMALDO MD, Ot E66.9 OBESITY, UNSPECIFIED 08/23/2018 ZACK GRIMALDO MD Ot E78.00 PURE HYPERCHOLESTEROLEMIA, UNSPECIFIED 08/23/2018 ZACK GRIMALDO MD, Ot F17.21 0 NICOTINE DEPENDENCE, CIGARETTES, UNCOMPL 08/23/2018 ZACK GRIMALDO MD Ot I10 ESSENTIAL (PRIMARY) HYPERTENSION 08/23/2018 ZACK GRIMALDO MD, Ot I25.10 ATHSCL HEART DISEASE OF [place] CORONARY 08/23/2018 ZACK GRIMALDO MD, Ot 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 08/23/2018 ZACK GRIMALDO MD, Ot K21.9 GASTRO-ESOPHAGEAL REFLUX DISEASE WITHOUT 08/23/2018 ZACK GRIMALDO MD, Ot K43.2 INCISIONAL HERNIA WITHOUT OBSTRUCTION OR 08/23/2018 ZACK GRIMALDO MD, Ot K59.00 CONSTIPATION, UNSPECIFIED 08/23/2018 ZACK GRIMALDO MD, Ot Z68.31 BODY MASS INDEX (BMI) 31.0-31.9, ADULT 08/23/2018 ZACK GRIMALDO MD, Ot Z79.02 JAIL (CURRENT) USE OF ANTITHROMBOTI 08/23/2018 ZACK GRIMALDO MD, Ot Z79.4 JAIL (CURRENT) USE OF INSULIN 08/23/2018 ZACK GRIMALDO MD, Ot Z79.82 JAIL (CURRENT) USE OF ASPIRIN 08/23/2018 ZACK GRIMALDO MD, Ot Z79.89 9 OTHER JAIL (CURRENT) DRUG THERAPY 08/25/2018 ZACK GRIMALDO MD Ot R30.0 DYSURIA 08/27/2018 ZACK GRIMALDO MD, Ot R30.0 DYSURIA 08/29/2018 ZACK GRIMALDO MD, Ot E11.9 TYPE 2 DIABETES MELLITUS WITHOUT COMPLIC 08/29/2018 ZACK GRIMALDO MD, Ot E66.9 OBESITY, UNSPECIFIED 08/29/2018 ZACK GRIMALDO MD, Ot E78.00 PURE HYPERCHOLESTEROLEMIA, UNSPECIFIED 08/29/2018 ZACK GRIMALDO MD, Ot F17.21 0 NICOTINE DEPENDENCE, CIGARETTES, UNCOMPL 08/29/2018 ZACK GRIMALDO MD Ot I10 ESSENTIAL (PRIMARY) HYPERTENSION 08/29/2018 ZACK GRIMALDO MD, Ot I25.10 ATHSCL HEART DISEASE OF [place] CORONARY 08/29/2018 ZACK GRIMALDO MD, Ot 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 08/29/2018 ZACK GRIMALDO MD Ot K21.9 GASTRO-ESOPHAGEAL REFLUX DISEASE WITHOUT 08/29/2018 ZACK GRIMALDO MD, Ot K43.2 INCISIONAL HERNIA WITHOUT OBSTRUCTION OR 08/29/2018 ZACK GRIMALDO MD, Ot K59.00 CONSTIPATION, UNSPECIFIED 08/29/2018 ZACK GRIMALDO MD, Ot Z68.31 BODY MASS INDEX (BMI) 31.0-31.9, ADULT 08/29/2018 ZACK GRIMALDO MD, Ot Z79.02 JAIL (CURRENT) USE OF ANTITHROMBOTI 08/29/2018 ZACK GRIMALDO MD, Ot Z79.4 JAIL (CURRENT) USE OF INSULIN 08/29/2018 ZACK GRIMALDO MD, Ot Z79.82 JAIL (CURRENT) USE OF ASPIRIN 08/29/2018 ZACK GRIMALDO MD, Ot Z79.89 9 OTHER JAIL (CURRENT) DRUG THERAPY 09/05/2018 YUKO GARRETT MD, Ot I10 ESSENTIAL (PRIMARY) HYPERTENSION 09/05/2018 YUKO GARRETT MD, Ot J44. 9 CHRONIC OBSTRUCTIVE PULMONARY DISEASE, U 09/05/2018 YUKO GARRETT MD, Ot K21. 9 GASTRO-ESOPHAGEAL REFLUX DISEASE WITHOUT 09/05/2018 YUKO GARRETT MD Ot R07. 9 CHEST PAIN, UNSPECIFIED 09/20/2018 PRISCILLA HUNT Ot D72.829 ELEVATED WHITE BLOOD CELL COUNT, UNSPECI 09/20/2018 PRISCILLA HUNT Ot E11.9 TYPE 2 DIABETES MELLITUS WITHOUT COMPLIC 09/20/2018 PRISCILLA HUNT Ot E78.00 PURE HYPERCHOLESTEROLEMIA, UNSPECIFIED 09/20/2018 PRISCILLA HUNT Ot F41.9 ANXIETY DISORDER, UNSPECIFIED 09/20/2018 PRISCILLA HUNT Ot G43.909 MIGRAINE, UNSP, NOT INTRACTABLE, WITHOUT 09/20/2018 PRISCILLA HUNT Ot I 10 ESSENTIAL (PRIMARY) HYPERTENSION 09/20/2018 PRISCILLA HUNT Ot J 40 BRONCHITIS, NOT SPECIFIED ACUTE OR CH 09/20/2018 PRISCILLA HUNT Ot K21.9 GASTRO-ESOPHAGEAL REFLUX DISEASE WITHOUT 09/20/2018 PRISCILLA HUNT Ot R 05 COUGH 09/20/2018 PRISCILLA HUNT Ot Z77.22 CNTCT W AND EXPSR TO ENVIRON TOBACCO SMO 09/20/2018 PRISCILLA HUNT Ot Z79.02 A P SUPERVISOR (CURRENT) USE OF ANTITHROMBOTI 09/20/2018 PRISCILLA HUNT Ot Z79.82 JAIL (CURRENT) USE OF ASPIRIN 09/20/2018 PRISCILLA HUNT Ot Z80.0 FAMILY HISTORY OF MALIGNANT NEOPLASM OF 09/20/2018 PRISCILLA HUNT Ot Z82.49 FAMILY HX OF ISCHEM HEART DIS AND OTH DI 09/20/2018 PRISCILLA HUNT Ot Z86.73 PRSNL HX OF TIA (TIA), AND CEREB INFRC W 09/20/2018 PRISCILLA HUNT Ot Z87.19 PERSONAL HISTORY OF OTHER DISEASES OF TH 09/20/2018 PRISCILLA HUNT Ot Z87.440 PERSONAL HISTORY OF URINARY (TRACT) INFE 09/20/2018 PRISCILLA HUNT Ot Z88.0 ALLERGY STATUS TO PENICILLIN 09/20/2018 PRISCILLA HUNT Ot Z88.5 ALLERGY STATUS TO NARCOTIC AGENT STATUS 09/20/2018 PRISCILLA HUNT Ot Z88.8 ALLERGY STATUS TO OTH DRUG/MEDS/BIOL SUB 09/20/2018 PRISCILLA HUNT Ot Z98.51 TUBAL LIGATION STATUS 09/20/2018 PRISCILLA HUTN Ot Z98.890 OTHER SPECIFIED POSTPROCEDURAL STATES 10/04/2018 SILVIA SPENCER DO Ot K76.0 FATTY (CHANGE OF) LIVER, NOT ELSEWHERE C 11/03/2018 ZACK GRIMALDO MD Ot K45.8 OTH ABDOMINAL HERNIA WITHOUT OBSTRUCTION 11/03/2018 ZACK GRIMALDO MD Ot K57.30 DVRTCLOS OF LG INT W/O PERFORATION OR AB 11/03/2018 ZACK GRIMALDO MD Ot K76.0 FATTY (CHANGE OF) LIVER, NOT ELSEWHERE C 11/03/2018 ZACK GRIMALDO MD Ot Z98.89 0 OTHER SPECIFIED POSTPROCEDURAL STATES 11/07/2018 ZACK GRIMALDO MD Ot K45.8 OTH ABDOMINAL HERNIA WITHOUT OBSTRUCTION 11/07/2018 ZACK GRIMALDO MD Ot K57.30 DVRTCLOS OF LG INT W/O PERFORATION OR AB 11/07/2018 ZACK GRIMALDO MD Ot K76.0 FATTY (CHANGE OF) LIVER, NOT ELSEWHERE C 11/07/2018 ZACK GRIMALDO MD Ot Z98.89 0 OTHER SPECIFIED POSTPROCEDURAL STATES 11/27/2018 ZACK GRIMALDO MD, Ot K45.8 OTH ABDOMINAL HERNIA WITHOUT OBSTRUCTION 11/27/2018 ZACK GRIMALDO MD Ot K57.30 DVRTCLOS OF LG INT W/O PERFORATION OR AB 11/27/2018 ZACK GRIMALDO MD Ot K76.0 FATTY (CHANGE OF) LIVER, NOT ELSEWHERE C 11/27/2018 KIDO MD, TAKAAKI Ot Z98.89 0 OTHER SPECIFIED POSTPROCEDURAL STATES 12/09/2018 AKBAR EVANS MD, Ot D72.829 ELEVATED WHITE BLOOD CELL COUNT, UNSPECI 12/09/2018 AKBAR EVANS MD, Ot E11.9 TYPE 2 DIABETES MELLITUS WITHOUT COMPLIC 12/09/2018 AKBAR EVANS MD Ot E78.00 PURE HYPERCHOLESTEROLEMIA, UNSPECIFIED 12/09/2018 AKBAR EVANS MD Ot E86.1 HYPOVOLEMIA 12/09/2018 AKBAR EVANS MD, Ot F41.9 ANXIETY DISORDER, UNSPECIFIED 12/09/2018 AKBAR EVANS MD, Ot G43.909 MIGRAINE, UNSP, NOT INTRACTABLE, WITHOUT 12/09/2018 AKBAR EVANS MD, Ot I10 ESSENTIAL (PRIMARY) HYPERTENSION 12/09/2018 AKBAR EVANS MD, Ot K21.9 GASTRO-ESOPHAGEAL REFLUX DISEASE WITHOUT 12/09/2018 AKBAR EVANS MD Ot N39.0 URINARY TRACT INFECTION, SITE NOT SPECIF 12/09/2018 AKBAR EVANS MD, Ot R30.0 DYSURIA 12/09/2018 AKBAR EVANS MD, Ot Z77.22 CNTCT W AND EXPSR TO ENVIRON TOBACCO SMO 12/09/2018 AKBAR EVANS MD, Ot Z79.82 A P SUPERVISOR (CURRENT) USE OF ASPIRIN 12/09/2018 AKBAR EVANS MD, Ot Z80.0 FAMILY HISTORY OF MALIGNANT NEOPLASM OF 12/09/2018 AKBAR EVANS MD, Ot Z82.49 FAMILY HX OF ISCHEM HEART DIS AND OTH DI 12/09/2018 AKBAR EVANS MD, Ot Z86.19 PERSONAL HISTORY OF OTHER INFECTIOUS AND 12/09/2018 AKBAR EVANS MD, Ot Z86.73 PRSNL HX OF TIA (TIA), AND CEREB INFRC W 12/09/2018 AKBAR EVANS MD, Ot Z87.19 PERSONAL HISTORY OF OTHER DISEASES OF TH 12/09/2018 AKBAR EVANS MD Ot Z87.440 PERSONAL HISTORY OF URINARY (TRACT) INFE 12/09/2018 NATHAN WRIGHT, [facility] [employer] Ot Z87.448 PERSONAL HISTORY OF OTHER DISEASES OF UR 12/09/2018 AKBAR EVANS MD Ot Z88.0 ALLERGY STATUS TO PENICILLIN 12/09/2018 AKBAR EVANS MD Ot Z88.5 ALLERGY STATUS TO NARCOTIC AGENT STATUS 12/09/2018 AKBAR EVANS MD Ot Z88.8 ALLERGY STATUS TO OTH DRUG/MEDS/BIOL SUB 12/09/2018 AKBAR EVANS MD Ot Z98.51 TUBAL LIGATION STATUS 12/09/2018 NATHAN WRIGHT, [facility] Ot Z98.890 OTHER SPECIFIED POSTPROCEDURAL STATES 03/22/2019 CHESTER JOYCE SWEATER DESIGNER Ot Z12.31 ENCNTR SCREEN MAMMOGRAM FOR MALIGNANT NE 03/26/2019 CHESTER JOYCE D SWEATER DESIGNER Ot Z12.31 ENCNTR SCREEN MAMMOGRAM FOR MALIGNANT NE 03/27/2019 KING CHESTER D SWEATER DESIGNER Ot Z12.31 ENCNTR SCREEN MAMMOGRAM FOR MALIGNANT NE 04/03/2019 ISIAH, [place] D SWEATER DESIGNER Ot Z12.31 ENCNTR SCREEN MAMMOGRAM FOR MALIGNANT NE 04/19/2019 CHESTER JOYCE D SWEATER DESIGNER Ot Z12.31 ENCNTR SCREEN MAMMOGRAM FOR MALIGNANT NE 04/27/2019 Ot E11.9 TYPE 2 DIABETES MELLITUS WITHOUT COMPLIC 04/27/2019 Ot E78.00 PUR E HYPERCHOLESTEROLEMIA, UNSPECIFIED 04/27/2019 Ot F17.210 NI COTINE DEPENDENCE, CIGARETTES, UNCOMPL 04/27/2019 Ot F41.9 ANXI ETY DISORDER, UNSPECIFIED 04/27/2019 Ot I10 ESSENT IAL (PRIMARY) HYPERTENSION 04/27/2019 Ot K21.9 JOANA RO-ESOPHAGEAL REFLUX DISEASE WITHOUT 04/27/2019 Ot N92.4 EXCE SSIVE BLEEDING IN THE PREMENOPAUSAL 04/27/2019 Ot N93.8 OTHE R SPECIFIED ABNORMAL UTERINE AND VAG 04/27/2019 Ot Z79.02 MAYA G TERM (CURRENT) USE OF ANTITHROMBOTI 04/27/2019 Ot Z79.4 A P SUPERVISOR (CURRENT) USE OF INSULIN 04/27/2019 Ot Z79.52 MAYA G TERM (CURRENT) USE OF SYSTEMIC STER 04/27/2019 Ot Z79.82 MAYA G TERM (CURRENT) USE OF ASPIRIN 04/27/2019 Ot Z82.49 FAM DERRICK HX OF ISCHEM HEART DIS AND OTH DI 04/27/2019 Ot Z86.73 PRS NL HX OF TIA (TIA), AND CEREB INFRC W 04/27/2019 Ot Z88.0 YVONNE RGY STATUS TO PENICILLIN 04/27/2019 Ot Z88.1 YVONNE RGY STATUS TO OTHER ANTIBIOTIC AGENT 04/27/2019 Ot Z88.5 YVONNE RGY STATUS TO NARCOTIC AGENT STATUS 04/30/2019 JOSE G PARNELL MD, Ot Z01.818 ENCOUNTER FOR OTHER PREPROCEDURAL EXAMIN 05/02/2019 JOSE G PARNELL MD, Ot Z01.818 ENCOUNTER FOR OTHER PREPROCEDURAL EXAMIN 05/02/2019 JOSE G PARNELL MD, Ot Z01.818 ENCOUNTER FOR OTHER PREPROCEDURAL EXAMIN 05/07/2019 JOSE G PARNELL MD, Ot E11.9 TYPE 2 DIABETES MELLITUS WITHOUT COMPLIC 05/07/2019 JOSE G PARNELL MD, Ot E78.5 HYPERLIPIDEMIA, UNSPECIFIED 05/07/2019 JOSE G PARNELL MD, Ot F17.210 NICOTINE DEPENDENCE, CIGARETTES, UNCOMPL 05/07/2019 JOSE G PARNELL MD, Ot F41.9 ANXIETY DISORDER, UNSPECIFIED 05/07/2019 JOSE G PARNELL MD, Ot F43.10 POST-TRAUMATIC STRESS DISORDER, UNSPECIF 05/07/2019 JOSE G PARNELL MD, Ot I10 ESSENTIAL (PRIMARY) HYPERTENSION 05/07/2019 JOSE G PARNELL MD, Ot K21.9 GASTRO-ESOPHAGEAL REFLUX DISEASE WITHOUT 05/07/2019 JOSE G PARNELL MD, Ot K66.0 PERITONEAL ADHESIONS (POSTPROCEDURAL) (P 05/07/2019 JOSE G PARNELL MD, Ot N80.0 ENDOMETRIOSIS OF UTERUS 05/07/2019 JOSE G PARNELL MD, Ot N83.209 UNSPECIFIED OVARIAN CYST, UNSPECIFIED SI 05/07/2019 JOSE G PARNELL MD, Ot N92.0 EXCESSIVE AND FREQUENT MENSTRUATION WITH 05/07/2019 JOSE G PARNELL MD, Ot N93.8 OTHER SPECIFIED ABNORMAL UTERINE AND VAG 05/07/2019 JOSE G PARNELL MD, Ot N94.89 OT COND ASSOC W FEMALE GENITAL ORGANS A 05/07/2019 JOSE G PARNELL MD, Ot Z79.82 JAIL (CURRENT) USE OF ASPIRIN 05/07/2019 JOSE G PARNELL MD, Ot Z79.84 A P SUPERVISOR (CURRENT) USE OF ORAL HYPOGLYC 05/07/2019 JOSE G PARNELL MD, Ot Z79.899 OTHER A P SUPERVISOR (CURRENT) DRUG THERAPY 05/07/2019 JOSE G PARNELL MD, Ot Z88.0 ALLERGY STATUS TO PENICILLIN 05/07/2019 JOSE G PARNELL MD, Ot Z88.5 ALLERGY STATUS TO NARCOTIC AGENT STATUS 05/07/2019 JOSE G PARNELL MD, Ot Z88.8 ALLERGY STATUS TO [facility] DRUG/MEDS/BIOL SUB 05/09/2019 JOSE G PARNELL MD, Ot E11.9 TYPE 2 DIABETES MELLITUS WITHOUT COMPLIC 05/09/2019 JOSE G PARNELL MD, Ot E78.5 HYPERLIPIDEMIA, UNSPECIFIED 05/09/2019 JOSE G PARNELL MD, Ot F17.210 NICOTINE DEPENDENCE, CIGARETTES, UNCOMPL 05/09/2019 JOSE G PARNELL MD, Ot F41.9 ANXIETY DISORDER, UNSPECIFIED 05/09/2019 JOSE G PARNELL MD, Ot F43.10 POST-TRAUMATIC STRESS DISORDER, UNSPECIF 05/09/2019 JOSE G PARNELL MD, Ot I10 ESSENTIAL (PRIMARY) HYPERTENSION 05/09/2019 JOSE G PARNELL MD, Ot K21.9 GASTRO-ESOPHAGEAL REFLUX DISEASE WITHOUT 05/09/2019 JOSE G PARNELL MD, Ot K66.0 PERITONEAL ADHESIONS (POSTPROCEDURAL) (P 05/09/2019 JOSE G PARNELL MD, Ot N80.0 ENDOMETRIOSIS OF UTERUS 05/09/2019 JOSE G PARNELL MD, Ot N83.209 UNSPECIFIED OVARIAN CYST, UNSPECIFIED SI 05/09/2019 JOSE G PARNELL MD, Ot N92.0 EXCESSIVE AND FREQUENT MENSTRUATION WITH 05/09/2019 JOSE G PARNELL MD, Ot N93.8 OTHER SPECIFIED ABNORMAL UTERINE AND VAG 05/09/2019 JOSE G PARNELL MD, Ot N94.89 OT COND ASSOC W FEMALE GENITAL ORGANS A 05/09/2019 JOSE G PARNELL MD, Ot Z79.82 A P SUPERVISOR (CURRENT) USE OF ASPIRIN 05/09/2019 JOSE G PARNELL MD, Ot Z79.84 A P SUPERVISOR (CURRENT) USE OF ORAL HYPOGLYC 05/09/2019 JOSE G PARNELL MD, Ot Z79.899 OTHER A P SUPERVISOR (CURRENT) DRUG THERAPY 05/09/2019 JOSE G PARNELL MD, Ot Z88.0 ALLERGY STATUS TO PENICILLIN 05/09/2019 JOSE G PARNELL MD, Ot Z88.5 ALLERGY STATUS TO NARCOTIC AGENT STATUS 05/09/2019 JOSE G PARNELL MD, Ot Z88.8 ALLERGY STATUS TO [facility] DRUG/MEDS/BIOL SUB 06/01/2019 JOSE G PARNELL MD, Ot E11.9 TYPE 2 DIABETES MELLITUS WITHOUT COMPLIC 06/01/2019 JOSE G PARNELL MD, Ot E78.5 HYPERLIPIDEMIA, UNSPECIFIED 06/01/2019 JOSE G PARNELL MD, Ot F17.210 NICOTINE DEPENDENCE, CIGARETTES, UNCOMPL 06/01/2019 JOSE G PARNELL MD, Ot F41.9 ANXIETY DISORDER, UNSPECIFIED 06/01/2019 JOSE G PARNELL MD, Ot F43.10 POST-TRAUMATIC STRESS DISORDER, UNSPECIF 06/01/2019 JOSE G PARNELL MD, Ot I10 ESSENTIAL (PRIMARY) HYPERTENSION 06/01/2019 JOSE G PARNELL MD, Ot K21.9 GASTRO-ESOPHAGEAL REFLUX DISEASE WITHOUT 06/01/2019 JOSE G PARNELL MD, Ot K66.0 PERITONEAL ADHESIONS (POSTPROCEDURAL) (P 06/01/2019 JOSE G PARNELL MD, Ot N80.0 ENDOMETRIOSIS OF UTERUS 06/01/2019 JOSE G PARNELL MD, Ot N83.209 UNSPECIFIED OVARIAN CYST, UNSPECIFIED SI 06/01/2019 SOHEILA MD, JOSE G G Ot N92.0 EXCESSIVE AND FREQUENT MENSTRUATION WITH 06/01/2019 JOSE G PARNELL MD, Ot N93.8 OTHER SPECIFIED ABNORMAL UTERINE AND VAG 06/01/2019 JOSE G PARNELL MD, Ot N94.89 OT COND ASSOC W FEMALE GENITAL ORGANS A 06/01/2019 JOSE G PARNELL MD, Ot Z79.82 A P SUPERVISOR (CURRENT) USE OF ASPIRIN 06/01/2019 JOSE G PARNELL MD, Ot Z79.84 A P SUPERVISOR (CURRENT) USE OF ORAL HYPOGLYC 06/01/2019 JOSE G PARNELL MD, Ot Z79.899 OTHER A P SUPERVISOR (CURRENT) DRUG THERAPY 06/01/2019 JOSE G PARNELL MD, Ot Z88.0 ALLERGY STATUS TO PENICILLIN 06/01/2019 JOSE G PARNELL MD, Ot Z88.5 ALLERGY STATUS TO NARCOTIC AGENT STATUS 06/01/2019 JOSE G PARNELL MD, Ot Z88.8 ALLERGY STATUS TO [facility] DRUG/MEDS/BIOL SUB Procedures There is no data. Results Test Result Range Complete urinalysis with reflex to cultu re - 08/16/16 15:00 Urine color determination RED NRG Urine clarity determination SLIGHTLY CLOUDY NRG Urine pH measurement by test strip 5 5-9 Specific gravity of urine by test strip 1.015 1.016-1.022 Urine protein assay by test strip, semi-quantitative 2+ NEGATIVE Urine glucose detection by automated test strip 2+ NEGATIVE Erythrocytes detection in urine sediment by light micr oscopy 4+ NEGATIVE Urine ketones detection by automated test strip NE GATIVE NEGATIVE Urine nitrite detection by test strip POSITIVE NEGATIVE Urine total bilirubin detection by test strip 3+ NEGATIVE Urine urobilinogen measurement by automated test strip (mass/volume) 4 mg/dL NORMAL Urine leukocyte esterase detection by dipstick NEG ATIVE NEGATIVE Automated urine sediment erythrocyte cou nt by microscopy (number/high power field) TNTC NRG Automated urine sediment leukocyte count by microscopy (number/high power field) [HPF] NRG Bacteria detection in urine sediment by light microsco py FEW NRG Squamous epithelial cells detection in u rine sediment by light microscopy 10-25 NRG Crystals detection in urine sediment by light microsco py NONE NRG Casts detection in urine sediment by light microscopy NONE NRG Mucus detection in urine sediment by light microscopy NEGATIVE NRG Complete urinalysis with reflex to culture YES NRG Bacterial urine culture - 08/16/16 15:00 Bacterial urine culture [id number] NRG COLONY COUNT 10,000/ML - 100,000/ML NRG FTX;REPORTABLE SENSITIVITY REPORTED 08/17 15:50 NRG FREE TEXT ENTRY 2 PLUS, LACTOBACILLUS 10-100,000/M L NRG FREE TEXT ENTRY 3 MIXED GRAM POSITIVE ASHLYN <10,00 0/ML NRG Bacterial susceptibility panel - 7 15:00 Gentamicin susceptibility test by minimum inhibitory c oncentration <= NRG Trimethoprim/sulfamethoxazole susceptibi lity test by minimum inhibitoryconcentration <= NRG Ampicillin susceptibility test by minimum inhibitory c oncentration >= NRG Tobramycin susceptibility test by minimum inhibitory c oncentration <= NRG Cefazolin susceptibility test by minimum inhibitory co ncentration <= NRG Ceftriaxone susceptibility test by minimum inhibitory concentration <= NRG Ampicillin/sulbactam susceptibility test by minimum inhibitory concentration 4 NRG Piperacillin/tazobactam susceptibility t est by minimum inhibitory concentration <= NRG Ciprofloxacin susceptibility test by minimum inhibitor y concentration <= NRG Meropenem susceptibility test by minimum inhibitory co ncentration <= NRG Nitrofurantoin susceptibility test by mi nimum inhibitory concentration 64 NRG Aztreonam susceptibility test by minimum inhibitory co ncentration <= NRG Extended spectrum beta lactamase (ESBL) producing bacteria susceptibility test by minimum inhibitory concentration - NRG Complete blood count (CBC) with automate d white blood cell (WBC) differential - 11/09/16 20:30 Blood leukocytes automated count (number/volume) 11.5 10*3/uL 4.3-11.0 Blood erythrocytes automated count (number/volume) 4.62 10*6/uL 4.35-5.85 Venous blood hemoglobin measurement (mass/volume) 14.3 g/dL 11.5-16.0 Blood hematocrit (volume fraction) 45 % 35-52 Automated erythrocyte mean corpuscular volume 97 [ foz_us] 80-99 Automated erythrocyte mean corpuscular h emoglobin (mass per erythrocyte) 31 pg 25-34 Automated erythrocyte mean corpuscular h emoglobin concentration measurement (mass/volume) 32 g/dL 32-36 Automated erythrocyte distribution width ratio 14. 2 % 10.0- 14.5 Automated blood platelet count [...] 10*3 1.0-4.0 Blood monocytes automated count (number/volume) 0. 9 10*3 0.0-1.0 Automated eosinophil count 0.1 10*3/uL 0 .0-0.3 Automated blood basophil count (count/volume) 0.1 10*3/uL 0.0-0.1 Comprehensive metabolic panel - 11/09/16 20:30 Serum or plasma sodium measurement (moles/volume) 136 mmol/L 135-145 Serum or plasma potassium measurement (moles/volume) 3.4 mmol/L 3.6-5.0 Serum or plasma chloride measurement (moles/volume) 96 mmol/L 98-107 Carbon dioxide 28 mmol/L 21-32 Serum or plasma anion gap determination (moles/volume) 12 mmol/L 5-14 Serum or plasma urea nitrogen measurement (mass/volume ) 8 mg/dL 7-18 Serum or plasma creatinine measurement (mass/volume) 0.74 mg/dL 0.60-1.30 Serum or plasma urea nitrogen/creatinine mass ratio 11 NRG Serum or plasma creatinine measurement w ith calculation of estimated glomerular filtration rate > NRG Serum or plasma glucose measurement (mass/volume) 325 mg/dL 70-105 Serum or plasma calcium measurement (mass/volume) 8.9 mg/dL 8.5-10.1 Serum or plasma total bilirubin measurement (mass/volu me) 0.5 mg/dL 0.1-1.0 Serum or plasma alkaline phosphatase long surement (enzymatic activity/volume) 95 U/L 40-136 Serum or plasma aspartate aminotransfera se measurement (enzymatic activity/volume) 63 U/L 5-34 Serum or plasma alanine aminotransferase measurement (enzymatic activity/volume) 53 U/L 0-55 Serum or plasma protein measurement (mass/volume) 6.8 g/dL 6.4-8.2 Serum or plasma albumin measurement (mass/volume) 3.8 g/dL 3.2-4.5 Magnesium - 11/09/16 20:30 Magnesium 1.7 mg/dL 1.8-2.4 Serum or plasma troponin i.cardiac measu rement (mass/volume) - 11/09/16 20:30 Serum or plasma troponin i.cardiac measurement (mass/v olume) < ng/mL <0.30 Complete urinalysis with reflex to cultu re - 11/09/16 23:08 Urine color determination DILIP NRG Urine clarity determination CLEAR NR G Urine pH measurement by test strip 5 5-9 Specific gravity of urine by test strip 1.020 1.016-1.022 Urine protein assay by test strip, semi-quantitative 1+ NEGATIVE Urine glucose detection by automated test strip 3+ NEGATIVE Erythrocytes detection in urine sediment by light micr oscopy NEGATIVE NEGATIVE Urine ketones detection by automated test strip NE GATIVE NEGATIVE Urine nitrite detection by test strip NEGATIVE NEGATIVE Urine total bilirubin detection by test strip NEGA TIVE NEGATIVE Urine urobilinogen measurement by automated test strip (mass/volume) NORMAL NORMAL Urine leukocyte esterase detection by dipstick 1+ NEGATIVE Automated urine sediment erythrocyte cou nt by microscopy (number/high power field) NONE NRG Automated urine sediment leukocyte count by microscopy (number/high power field) [HPF] NRG Bacteria detection in urine sediment by light microsco py FEW NRG Squamous epithelial cells detection in u rine sediment by light microscopy 5-10 NRG Crystals detection in urine sediment by light microsco py NONE NRG Casts detection in urine sediment by light microscopy NONE NRG Mucus detection in urine sediment by light microscopy SMALL NRG Complete urinalysis with reflex to culture NO NRG VITAMIN D, 25-H - 01/06/17 14:50 Vitamin D, 25-Hydroxy 14.5 ng/mL 30.0-10 0.0 Complete blood count (CBC) with automate d white blood cell (WBC) differential - 03/12/17 12:42 Blood leukocytes automated count (number/volume) 11.9 10*3/uL 4.3-11.0 Blood erythrocytes automated count (number/volume) 4.98 10*6/uL 4.35-5.85 Venous blood hemoglobin measurement (mass/volume) 15.5 g/dL 11.5-16.0 Blood hematocrit (volume fraction) 48 % 35-52 Automated erythrocyte mean corpuscular volume 96 [ foz_us] 80-99 Automated erythrocyte mean corpuscular h emoglobin (mass per erythrocyte) 31 pg 25-34 Automated erythrocyte mean corpuscular h emoglobin concentration measurement (mass/volume) 32 g/dL 32-36 Automated erythrocyte distribution width ratio 13. 7 % 10.0- 14.5 Automated blood platelet count [...] 10*3 1.0-4.0 Blood monocytes automated count (number/volume) 1. 0 10*3 0.0-1.0 Automated eosinophil count 0.1 10*3/uL 0 .0-0.3 Automated blood basophil count (count/volume) 0.1 10*3/uL 0.0-0.1 Comprehensive metabolic panel - 03/12/17 12:42 Serum or plasma sodium measurement (moles/volume) 139 mmol/L 135-145 Serum or plasma potassium measurement (moles/volume) 4.0 mmol/L 3.6-5.0 Serum or plasma chloride measurement (moles/volume) 96 mmol/L 98-107 Carbon dioxide 28 mmol/L 21-32 Serum or plasma anion gap determination (moles/volume) 15 mmol/L 5-14 Serum or plasma urea nitrogen measurement (mass/volume ) 10 mg/dL 7-18 Serum or plasma creatinine measurement (mass/volume) 0.66 mg/dL 0.60-1.30 Serum or plasma urea nitrogen/creatinine mass ratio 15 NRG Serum or plasma creatinine measurement w ith calculation of estimated glomerular filtration rate > NRG Serum or plasma glucose measurement (mass/volume) 203 mg/dL 70-105 Serum or plasma calcium measurement (mass/volume) 9.8 mg/dL 8.5-10.1 Serum or plasma total bilirubin measurement (mass/volu me) 0.7 mg/dL 0.1-1.0 Serum or plasma alkaline phosphatase long surement (enzymatic activity/volume) 92 U/L 40-136 Serum or plasma aspartate aminotransfera se measurement (enzymatic activity/volume) 70 U/L 5-34 Serum or plasma alanine aminotransferase measurement (enzymatic activity/volume) 38 U/L 0-55 Serum or plasma protein measurement (mass/volume) 7.9 g/dL 6.4-8.2 Serum or plasma albumin measurement (mass/volume) 4.0 g/dL 3.2-4.5 Serum or plasma troponin i.cardiac measu rement (mass/volume) - 03/12/17 12:42 Serum or plasma troponin i.cardiac measurement (mass/v olume) < ng/mL <0.30 Lipase - 03/12/17 12:42 Lipase 58 U/L 8-78 Serum or plasma thyrotropin measurement by detection limit <=0.05 miu/l (units/volume) - 03/12/17 12:42 Serum or plasma thyrotropin measurement by detection limit <=0.05 miu/l (units/volume) 1.52 u[iU]/mL 0.35-4.94 Serum or plasma C reactive protein measu rement (mass/volume) - 03/12/17 12:42 Serum or plasma C reactive protein measurement (mass/v olume) 1.52 mg/dL 0.00-0.50 Serum or plasma ethanol measurement (mas s/volume) - 03/12/17 12:42 Serum or plasma ethanol measurement (mass/volume) 11 mg/dL <10 Complete urinalysis with reflex to cultu re - 03/12/17 14:30 Urine color determination YELLOW NRG Urine clarity determination CLEAR NR G Urine pH measurement by test strip 6.5 5-9 Specific gravity of urine by test strip 1.015 1.016-1.022 Urine protein assay by test strip, semi-quantitative 1+ NEGATIVE Urine glucose detection by automated test strip 1+ NEGATIVE Erythrocytes detection in urine sediment by light micr oscopy NEGATIVE NEGATIVE Urine ketones detection by automated test strip NE GATIVE NEGATIVE Urine nitrite detection by test strip NEGATIVE NEGATIVE Urine total bilirubin detection by test strip NEGA TIVE NEGATIVE Urine urobilinogen measurement by automated test strip (mass/volume) NORMAL NORMAL Urine leukocyte esterase detection by dipstick 1+ NEGATIVE Automated urine sediment erythrocyte cou nt by microscopy (number/high power field) NONE NRG Automated urine sediment leukocyte count by microscopy (number/high power field) NONE NRG Bacteria detection in urine sediment by light microsco py TRACE NRG Squamous epithelial cells detection in u rine sediment by light microscopy 2-5 NRG Crystals detection in urine sediment by light microsco py NONE NRG Casts detection in urine sediment by light microscopy NONE NRG Mucus detection in urine sediment by light microscopy NEGATIVE NRG Complete urinalysis with reflex to culture NO NRG Urine drug screening test - 03/12/17 14: 30 Urine phencyclidine detection by screening method NEGATIVE NEGATIVE Urine benzodiazepines detection by screening method POSITIVE NEGATIVE Urine cocaine detection NEGATIVE NEGATI VE Urine amphetamines detection by screening method N EGATIVE NEGATIVE Urine methamphetamine detection by screening method NEGATIVE NEGATIVE Urine cannabinoids detection by screening method N EGATIVE NEGATIVE Urine opiates detection by screening method NEGATI VE NEGATIVE Urine barbiturates detection NEGATIVE N EGATIVE Screening urine tricyclic antidepressants detection NEGATIVE NEGATIVE Urine methadone detection by screening method NEGA TIVE NEGATIVE Urine oxycodone detection NEGATIVE NEGA TIVE Urine propoxyphene detection NEGATIVE N EGATIVE Influenza virus A and B antigen detectio n - 04/16/17 23:26 FLU RESULT NEGATIVE FOR INFLUENZA A AND B ANTIGENS BY IA NRG Complete blood count (CBC) with automate d white blood cell (WBC) differential - 04/17/17 00:08 Blood leukocytes automated count (number/volume) 13.9 10*3/uL 4.3-11.0 Blood erythrocytes automated count (number/volume) 4.68 10*6/uL 4.35-5.85 Venous blood hemoglobin measurement (mass/volume) 14.7 g/dL 11.5-16.0 Blood hematocrit (volume fraction) 45 % 35-52 Automated erythrocyte mean corpuscular volume 96 [ foz_us] 80-99 Automated erythrocyte mean corpuscular h emoglobin (mass per erythrocyte) 31 pg 25-34 Automated erythrocyte mean corpuscular h emoglobin concentration measurement (mass/volume) 33 g/dL 32-36 Automated erythrocyte distribution width ratio 13. 9 % 10.0- 14.5 Automated blood platelet count [...] 10*3 1.0-4.0 Blood monocytes automated count (number/volume) 1. 1 10*3 0.0-1.0 Automated eosinophil count 0.2 10*3/uL 0 .0-0.3 Automated blood basophil count (count/volume) 0.1 10*3/uL 0.0-0.1 Comprehensive metabolic panel - 04/17/17 00:08 Serum or plasma sodium measurement (moles/volume) 138 mmol/L 135-145 Serum or plasma potassium measurement (moles/volume) 3.6 mmol/L 3.6-5.0 Serum or plasma chloride measurement (moles/volume) 95 mmol/L 98-107 Carbon dioxide 28 mmol/L 21-32 Serum or plasma anion gap determination (moles/volume) 15 mmol/L 5-14 Serum or plasma urea nitrogen measurement (mass/volume ) 11 mg/dL 7-18 Serum or plasma creatinine measurement (mass/volume) 0.77 mg/dL 0.60-1.30 Serum or plasma urea nitrogen/creatinine mass ratio 14 NRG Serum or plasma creatinine measurement w ith calculation of estimated glomerular filtration rate > NRG Serum or plasma glucose measurement (mass/volume) 250 mg/dL 70-105 Serum or plasma calcium measurement (mass/volume) 9.8 mg/dL 8.5-10.1 Serum or plasma total bilirubin measurement (mass/volu me) 0.6 mg/dL 0.1-1.0 Serum or plasma alkaline phosphatase long surement (enzymatic activity/volume) 102 U/L 40-136 Serum or plasma aspartate aminotransfera se measurement (enzymatic activity/volume) 62 U/L 5-34 Serum or plasma alanine aminotransferase measurement (enzymatic activity/volume) 57 U/L 0-55 Serum or plasma protein measurement (mass/volume) 7.1 g/dL 6.4-8.2 Serum or plasma albumin measurement (mass/volume) 3.8 g/dL 3.2-4.5 Serum or plasma troponin i.cardiac measu rement (mass/volume) - 04/17/17 00:08 Serum or plasma troponin i.cardiac measurement (mass/v olume) < ng/mL <0.30 CULTURE, URINE - 05/11/17 15:19 CULTURE, URINE, ROUTINE SEE NOTE NRG AMYLASE - 06/17/17 15:17 AMYLASE 53 U/L 21-101 THYROID ANALYZER - 06/17/17 15:17 TSH 0.90 mIU/L NRG PDM - PAIN MGMT (PROFILE 3 WITH CONFIRMA TION) - 06/17/17 15:17 Prescribed Drug 1 Hydrocodone NRG Creatinine 118.5 mg/dL > or = 20.0 pH 6.15 4.5 - 9.0 Oxidant NEGATIVE [...] aOH alprazolam CONSISTENT NRG Alphahydroxymidazolam NEGATIVE ng/mL < 50 medMATCH aOH midazolam CONSISTENT NRG Alphahydroxytriazolam NEGATIVE ng/mL < 50 medMATCH aOH triazolam CONSISTENT NRG Aminoclonazepam NEGATIVE ng/mL <25 medMATCH Aminoclonazepam CONSISTENT NRG Hydroxyethylflurazepam NEGATIVE ng/mL <50 medMATCH OH,Et flurazepam CONSISTENT NR G Lorazepam NEGATIVE ng/mL <50 medMATCH Lorazepam CONSISTENT NRG Nordiazepam NEGATIVE ng/mL <50 medMATCH Nordiazepam CONSISTENT NRG Oxazepam NEGATIVE ng/mL <50 medMATCH Oxazepam CONSISTENT NRG Temazepam NEGATIVE ng/mL <50 medMATCH Temazepam CONSISTENT NRG Prescribed Drug 2 Xanax(TM) NRG CBC - 06/23/17 16:54 WHITE BLOOD CELL COUNT 12.8 Thousand/uL 3.8-10.8 RED BLOOD CELL COUNT 4.89 Million/uL 3.8 0-5.10 HEMOGLOBIN 15.0 g/dL 11.7-15.5 HEMATOCRIT 47.0 % 35.0-45.0 MCV 96.1 fL 80.0-100.0 MCH 30.7 pg 27.0-33.0 MCHC 31.9 g/dL 32.0-36.0 RDW 12.4 % 11.0-15.0 PLATELET COUNT 349 Thousand/uL 140-400 MPV 10.8 fL 7.5-12.5 ABSOLUTE NEUTROPHILS 7155 cells/uL 1500- 7800 ABSOLUTE LYMPHOCYTES 4211 cells/uL 850-3 900 ABSOLUTE MONOCYTES 1152 cells/uL 200-950 ABSOLUTE EOSINOPHILS 166 cells/uL 15-500 ABSOLUTE BASOPHILS 115 cells/uL 0-200 NEUTROPHILS 55.9 % NRG LYMPHOCYTES 32.9 % NRG MONOCYTES 9.0 % NRG EOSINOPHILS 1.3 % NRG BASOPHILS 0.9 % NRG VITAMIN D, 25-H - 08/02/17 08:45 VITAMIN D,25-OH,TOTAL,IA 18 ng/mL 30-10 0 Complete blood count (CBC) with automate d white blood cell (WBC) differential - 08/16/17 21:15 Blood leukocytes automated count (number/volume) 13.3 10*3/uL 4.3-11.0 Blood erythrocytes automated count (number/volume) 4.72 10*6/uL 4.35-5.85 Venous blood hemoglobin measurement (mass/volume) 14.8 g/dL 11.5-16.0 Blood hematocrit (volume fraction) 45 % 35-52 Automated erythrocyte mean corpuscular volume 95 [ foz_us] 80-99 Automated erythrocyte mean corpuscular h emoglobin (mass per erythrocyte) 31 pg 25-34 Automated erythrocyte mean corpuscular h emoglobin concentration measurement (mass/volume) 33 g/dL 32-36 Automated erythrocyte distribution width ratio 13. 9 % 10.0- 14.5 Automated blood platelet count [...] 10*3 1.0-4.0 Blood monocytes automated count (number/volume) 1. 0 10*3 0.0-1.0 Automated eosinophil count 0.2 10*3/uL 0 .0-0.3 Automated blood basophil count (count/volume) 0.1 10*3/uL 0.0-0.1 Comprehensive metabolic panel - 08/16/17 21:15 Serum or plasma sodium measurement (moles/volume) 137 mmol/L 135-145 Serum or plasma potassium measurement (moles/volume) 3.9 mmol/L 3.6-5.0 Serum or plasma chloride measurement (moles/volume) 96 mmol/L 98-107 Carbon dioxide 25 mmol/L 21-32 Serum or plasma anion gap determination (moles/volume) 16 mmol/L 5-14 Serum or plasma urea nitrogen measurement (mass/volume ) 7 mg/dL 7-18 Serum or plasma creatinine measurement (mass/volume) 0.74 mg/dL 0.60-1.30 Serum or plasma urea nitrogen/creatinine mass ratio 9 NRG Serum or plasma creatinine measurement w ith calculation of estimated glomerular filtration rate > NRG Serum or plasma glucose measurement (mass/volume) 308 mg/dL 70-105 Serum or plasma calcium measurement (mass/volume) 9.6 mg/dL 8.5-10.1 Serum or plasma total bilirubin measurement (mass/volu me) 0.6 mg/dL 0.1-1.0 Serum or plasma alkaline phosphatase long surement (enzymatic activity/volume) 156 U/L 40-136 Serum or plasma aspartate aminotransfera se measurement (enzymatic activity/volume) 83 U/L 5-34 Serum or plasma alanine aminotransferase measurement (enzymatic activity/volume) 52 U/L 0-55 Serum or plasma protein measurement (mass/volume) 7.8 g/dL 6.4-8.2 Serum or plasma albumin measurement (mass/volume) 4.0 g/dL 3.2-4.5 CULTURE, URINE - 08/19/17 16:30 CULTURE, URINE, ROUTINE SEE NOTE NRG CULTURE, URINE - 08/26/17 11:46 CULTURE, URINE, ROUTINE SEE NOTE NRG Complete blood count (CBC) with automate d white blood cell (WBC) differential - 09/15/17 09:25 Blood leukocytes automated count (number/volume) 11.6 10*3/uL 4.3-11.0 Blood erythrocytes automated count (number/volume) 4.64 10*6/uL 4.35-5.85 Venous blood hemoglobin measurement (mass/volume) 14.4 g/dL 11.5-16.0 Blood hematocrit (volume fraction) 44 % 35-52 Automated erythrocyte mean corpuscular volume 95 [ foz_us] 80-99 Automated erythrocyte mean corpuscular h emoglobin (mass per erythrocyte) 31 pg 25-34 Automated erythrocyte mean corpuscular h emoglobin concentration measurement (mass/volume) 33 g/dL 32-36 Automated erythrocyte distribution width ratio 14. 2 % 10.0- 14.5 Automated blood platelet count [...] 10*3 1.0-4.0 Blood monocytes automated count (number/volume) 0. 9 10*3 0.0-1.0 Automated eosinophil count 0.2 10*3/uL 0 .0-0.3 Automated blood basophil count (count/volume) 0.0 10*3/uL 0.0-0.1 PT panel in platelet poor plasma by coag ulation assay - 09/15/17 09:25 Prothrombin time (PT) in platelet poor plasma by coagu lation assay 12.7 s 12.2-14.7 INR in platelet poor plasma or blood by coagulation as say 1.0 0.8-1.4 Activated partial thromboplastin time (a PTT) in platelet poor plasma bycoagulation assay - 09/15/17 09:25 Activated partial thromboplastin time (a PTT) in platelet poor plasma bycoagulation assay 29 s 24-35 Comprehensive metabolic panel - 09/15/17 09:25 Serum or plasma sodium measurement (moles/volume) 139 mmol/L 135-145 Serum or plasma potassium measurement (moles/volume) 3.8 mmol/L 3.6-5.0 Serum or plasma chloride measurement (moles/volume) 98 mmol/L 98-107 Carbon dioxide 28 mmol/L 21-32 Serum or plasma anion gap determination (moles/volume) 13 mmol/L 5-14 Serum or plasma urea nitrogen measurement (mass/volume ) 6 mg/dL 7-18 Serum or plasma creatinine measurement (mass/volume) 0.66 mg/dL 0.60-1.30 Serum or plasma urea nitrogen/creatinine mass ratio 9 NRG Serum or plasma creatinine measurement w ith calculation of estimated glomerular filtration rate > NRG Serum or plasma glucose measurement (mass/volume) 170 mg/dL 70-105 Serum or plasma calcium measurement (mass/volume) 9.5 mg/dL 8.5-10.1 Serum or plasma total bilirubin measurement (mass/volu me) 0.7 mg/dL 0.1-1.0 Serum or plasma alkaline phosphatase long surement (enzymatic activity/volume) 128 U/L 40-136 Serum or plasma aspartate aminotransfera se measurement (enzymatic activity/volume) 59 U/L 5-34 Serum or plasma alanine aminotransferase measurement (enzymatic activity/volume) 42 U/L 0-55 Serum or plasma protein measurement (mass/volume) 7.3 g/dL 6.4-8.2 Serum or plasma albumin measurement (mass/volume) 3.9 g/dL 3.2-4.5 Magnesium - 09/15/17 09:25 Magnesium 1.9 mg/dL 1.8-2.4 Serum or plasma troponin i.cardiac measu rement (mass/volume) - 09/15/17 09:25 Serum or plasma troponin i.cardiac measurement (mass/v olume) < ng/mL <0.30 Myoglobin, serum - 09/15/17 09:25 Myoglobin, serum 19.0 ng/mL 10.0-92.0 Fibrin D-dimer FEU measurement in platel et poor plasma (mass/volume) - 09/15/17 09:25 Fibrin D-dimer FEU measurement in platelet poor plasma (mass/volume) 0.40 ug/mL 0.00-0.49 PDM - PANEL (PROFILE 1) - 09/23/17 11 :11 Prescribed Drug 1 Xanax(TM) NRG Creatinine 115.7 mg/dL > or = 20.0 pH 6.48 4.5 - 9.0 Oxidant NEGATIVE [...] aOH alprazolam CONSISTENT NRG Alphahydroxymidazolam NEGATIVE ng/mL < 50 medMATCH aOH midazolam CONSISTENT NRG Alphahydroxytriazolam NEGATIVE ng/mL < 50 medMATCH aOH triazolam CONSISTENT NRG Aminoclonazepam NEGATIVE ng/mL <25 medMATCH Aminoclonazepam CONSISTENT NRG Hydroxyethylflurazepam NEGATIVE ng/mL <50 medMATCH [place],Et flurazepam CONSISTENT NR G Lorazepam NEGATIVE ng/mL <50 medMATCH Lorazepam CONSISTENT [...] . NRG Tick identification panel - 11/24/17 17: 15 Serum Ehrlichia chaffeensis IgG antibody detection <1:16 <1:16 Serum Ehrlichia chaffeensis IgM antibody detection <1:10 <1:10 Serum Rickettsia rickettsii IgG antibody assay (units/ volume) < <1:16 [place] spotted fever panel < <1:10 Francisella tularensis antibody assay <1:20 NRG LYME AB G M 0.07 % 0.00-0.89 Interpretation of Lyme disease antibody assay Nega tive Negative STOOL (FECAL FAT) - 12/13/17 16:52 TOTAL SPECIMEN WEIGHT TNP g NRG STOOL (C-DIFF) - 12/13/17 16:52 CLOSTRIDIUM DIFFICILE TOXIN/GDH W/REFL TO PCR SEE NOTE NRG STOOL FECAL FAT, QUAL - 12/13/17 16:52 CLOSTRIDIUM DIFFICILE TOXINB,QL REAL JABARI E PCR - 12/13/17 16:52 CLOSTRIDIUM DIFFICILE TOXINB,QL REAL TIME PCR DETE CTED NOT DETECTED CULTURE, STOOL - 12/13/17 16:52 SALMONELLA AND SHIGELLA, CULTURE SEE NOTE NRG CBC - 01/03/18 09:48 WHITE BLOOD CELL COUNT 11.2 Thousand/uL 3.8-10.8 RED BLOOD CELL COUNT 4.77 Million/uL 3.8 0-5.10 HEMOGLOBIN 14.4 g/dL 11.7-15.5 HEMATOCRIT 44.8 % 35.0-45.0 MCV 93.9 fL 80.0-100.0 MCH 30.2 pg 27.0-33.0 MCHC 32.1 g/dL 32.0-36.0 RDW 12.9 % 11.0-15.0 PLATELET COUNT 297 Thousand/uL 140-400 MPV 11.1 fL 7.5-12.5 ABSOLUTE NEUTROPHILS 7358 cells/uL 1500- 7800 ABSOLUTE LYMPHOCYTES 2912 cells/uL 850-3 900 ABSOLUTE MONOCYTES 672 cells/uL 200-950 ABSOLUTE EOSINOPHILS 168 cells/uL 15-500 ABSOLUTE BASOPHILS 90 cells/uL 0-200 NEUTROPHILS 65.7 % NRG LYMPHOCYTES 26.0 % NRG MONOCYTES 6.0 % NRG EOSINOPHILS 1.5 % NRG BASOPHILS 0.8 % NRG Complete blood count (CBC) with automate d white blood cell (WBC) differential - 01/23/18 16:25 Blood leukocytes automated count (number/volume) 12.7 10*3/uL 4.3-11.0 Blood erythrocytes automated count (number/volume) 4.84 10*6/uL 4.35-5.85 Venous blood hemoglobin measurement (mass/volume) 14.5 g/dL 11.5-16.0 Blood hematocrit (volume fraction) 46 % 35-52 Automated erythrocyte mean corpuscular volume 94 [ foz_us] 80-99 Automated erythrocyte mean corpuscular h emoglobin (mass per erythrocyte) 30 pg 25-34 Automated erythrocyte mean corpuscular h emoglobin concentration measurement (mass/volume) 32 g/dL 32-36 Automated erythrocyte distribution width ratio 14. 1 % 10.0- 14.5 Automated blood platelet count [...] 10*3 1.0-4.0 Blood monocytes automated count (number/volume) 0. 9 10*3 0.0-1.0 Automated eosinophil count 0.1 10*3/uL 0 .0-0.3 Automated blood basophil count (count/volume) 0.1 10*3/uL 0.0-0.1 Serum or plasma choriogonadotropin (preg stephen test) detection - 01/23/18 16:25 Serum or plasma choriogonadotropin ( test) de tection NEGATIVE NEGATIVE Comprehensive metabolic panel - 01/23/18 16:25 Serum or plasma sodium measurement (moles/volume) 135 mmol/L 135-145 Serum or plasma potassium measurement (moles/volume) 3.9 mmol/L 3.6-5.0 Serum or plasma chloride measurement (moles/volume) 94 mmol/L 98-107 Carbon dioxide 27 mmol/L 21-32 Serum or plasma anion gap determination (moles/volume) 14 mmol/L 5-14 Serum or plasma urea nitrogen measurement (mass/volume ) 8 mg/dL 7-18 Serum or plasma creatinine measurement (mass/volume) 0.78 mg/dL 0.60-1.30 Serum or plasma urea nitrogen/creatinine mass ratio 10 NRG Serum or plasma creatinine measurement w ith calculation of estimated glomerular filtration rate > NRG Serum or plasma glucose measurement (mass/volume) 343 mg/dL 70-105 Serum or plasma calcium measurement (mass/volume) 9.6 mg/dL 8.5-10.1 Serum or plasma total bilirubin measurement (mass/volu me) 0.7 mg/dL 0.1-1.0 Serum or plasma alkaline phosphatase long surement (enzymatic activity/volume) 210 U/L 40-136 Serum or plasma aspartate aminotransfera se measurement (enzymatic activity/volume) 56 U/L 5-34 Serum or plasma alanine aminotransferase measurement (enzymatic activity/volume) 25 U/L 0-55 Serum or plasma protein measurement (mass/volume) 8.2 g/dL 6.4-8.2 Serum or plasma albumin measurement (mass/volume) 3.9 g/dL 3.2-4.5 CALCIUM CORRECTED 9.7 mg/dL 8.5-10.1 Serum or plasma amylase measurement (enz ymatic activity/volume) - 01/23/18 16:25 Serum or plasma amylase measurement (enzymatic activit y/volume) 83 U/L 25-125 Lipase - 01/23/18 16:25 Lipase 133 U/L 8-78 Complete urinalysis with reflex to cultu re - 01/23/18 17:05 Urine color determination YELLOW NRG Urine clarity determination CLEAR NR G Urine pH measurement by test strip 7 5-9 Specific gravity of urine by test strip 1.010 1.016-1.022 Urine protein assay by test strip, semi-quantitative 1+ NEGATIVE Urine glucose detection by automated test strip 4+ NEGATIVE Erythrocytes detection in urine sediment by light micr oscopy NEGATIVE NEGATIVE Urine ketones detection by automated test strip NE GATIVE NEGATIVE Urine nitrite detection by test strip NEGATIVE NEGATIVE Urine total bilirubin detection by test strip NEGA TIVE NEGATIVE Urine urobilinogen measurement by automated test strip (mass/volume) 1 mg/dL NORMAL Urine leukocyte esterase detection by dipstick 1+ NEGATIVE Automated urine sediment erythrocyte cou nt by microscopy (number/high power field) NONE NRG Automated urine sediment leukocyte count by microscopy (number/high power field) RARE NRG Bacteria detection in urine sediment by light microsco py FEW NRG Squamous epithelial cells detection in u rine sediment by light microscopy 5-10 NRG Crystals detection in urine sediment by light microsco py NONE NRG Casts detection in urine sediment by light microscopy NONE NRG Mucus detection in urine sediment by light microscopy NEGATIVE NRG Complete urinalysis with reflex to culture NO NRG CULTURE, URINE - 03/04/18 08:17 CULTURE, URINE, ROUTINE SEE NOTE NRG Complete urinalysis with reflex to cultu re - 03/18/18 09:16 Urine color determination RED NRG Urine clarity determination BLOODY NR G Urine pH measurement by test strip 6.5 5-9 Specific gravity of urine by test strip 1.015 1.016-1.022 Urine protein assay by test strip, semi-quantitative 3+ NEGATIVE Urine glucose detection by automated test strip NE GATIVE NEGATIVE Erythrocytes detection in urine sediment by light micr oscopy 4+ NEGATIVE Urine ketones detection by automated test strip NE GATIVE NEGATIVE Urine nitrite detection by test strip POSITIVE NEGATIVE Urine total bilirubin detection by test strip 3+ NEGATIVE Urine urobilinogen measurement by automated test strip (mass/volume) 8 mg/dL NORMAL Urine leukocyte esterase detection by dipstick NEG ATIVE NEGATIVE Automated urine sediment erythrocyte cou nt by microscopy (number/high power field) > [HPF] NRG Automated urine sediment leukocyte count by microscopy (number/high power field) > [HPF] NRG Bacteria detection in urine sediment by light microsco py FEW NRG Squamous epithelial cells detection in u rine sediment by light microscopy 5-10 NRG Crystals detection in urine sediment by light microsco py NONE NRG Casts detection in urine sediment by light microscopy NONE NRG Mucus detection in urine sediment by light microscopy NEGATIVE NRG Complete urinalysis with reflex to culture YES NRG Bacterial urine culture - 03/18/18 09:16 Bacterial urine culture SEE COMMEN NRG COLONY COUNT . NRG FTX;REPORTABLE 80,000 CFU/ML NRG FREE TEXT ENTRY 2 SUSCEPTIBILITY REPORTED 03-20-18 , 1205 NR FREE TEXT ENTRY 3 RESISTANT ORGANISM/CONTACT PRECA UTIONS NR RML Sensitivity Panel - 03/18/18 09:16 Gentamicin susceptibility test by minimum inhibitory c oncentration <= NRG Trimethoprim/sulfamethoxazole susceptibi lity test by minimum inhibitoryconcentration > NRG Levofloxacin susceptibility test by minimum inhibitory concentration <= NRG Ampicillin susceptibility test by minimum inhibitory c oncentration > NRG Cefazolin susceptibility test by minimum inhibitory co ncentration > NRG Ceftriaxone susceptibility test by minimum inhibitory concentration > NRG Ciprofloxacin susceptibility test by minimum inhibitor y concentration <= NRG Meropenem susceptibility test by minimum inhibitory co ncentration <= NRG Nitrofurantoin susceptibility test by mi nimum inhibitory concentration 64 NRG Amoxicillin and clavulanate potassium susc CHANDLER R NRG Complete blood count (CBC) with automate d white blood cell (WBC) differential - 03/18/18 09:50 Blood leukocytes automated count (number/volume) 15.1 10*3/uL 4.3-11.0 Blood erythrocytes automated count (number/volume) 4.76 10*6/uL 4.35-5.85 Venous blood hemoglobin measurement (mass/volume) 14.5 g/dL 11.5-16.0 Blood hematocrit (volume fraction) 44 % 35-52 Automated erythrocyte mean corpuscular volume 92 [ foz_us] 80-99 Automated erythrocyte mean corpuscular h emoglobin (mass per erythrocyte) 31 pg 25-34 Automated erythrocyte mean corpuscular h emoglobin concentration measurement (mass/volume) 33 g/dL 32-36 Automated erythrocyte distribution width ratio 14. 7 % 10.0- 14.5 Automated blood platelet count [...] 10*3 1.0-4.0 Blood monocytes automated count (number/volume) 0. 8 10*3 0.0-1.0 Automated eosinophil count 0.2 10*3/uL 0 .0-0.3 Automated blood basophil count (count/volume) 0.0 10*3/uL 0.0-0.1 Blood manual differential performed dete ction - 03/18/18 09:50 Blood monocytes/100 leukocytes 8 % NRG Manual blood segmented neutrophils/100 leukocytes 64 % NRG Blood band neutrophils/100 leukocytes 5 % NRG Manual blood lymphocytes/100 leukocytes 23 % NRG Manual eosinophils/100 leukocytes in nose 0 % NRG Manual blood basophils/100 leukocytes 0 % NRG Blood erythrocyte morphology finding identification NORMAL NRG Serum or plasma C reactive protein measu rement (mass/volume) - 03/18/18 09:50 Serum or plasma C reactive protein measurement (mass/v olume) 0.86 mg/dL 0.00-0.50 Comprehensive metabolic panel - 03/18/18 09:50 Serum or plasma sodium measurement (moles/volume) 138 mmol/L 135-145 Serum or plasma potassium measurement (moles/volume) 3.4 mmol/L 3.6-5.0 Serum or plasma chloride measurement (moles/volume) 97 mmol/L 98-107 Carbon dioxide 24 mmol/L 21-32 Serum or plasma anion gap determination (moles/volume) 17 mmol/L 5-14 Serum or plasma urea nitrogen measurement (mass/volume ) 12 mg/dL 7-18 Serum or plasma creatinine measurement (mass/volume) 0.68 mg/dL 0.60-1.30 Serum or plasma urea nitrogen/creatinine mass ratio 18 NRG Serum or plasma creatinine measurement w ith calculation of estimated glomerular filtration rate > NRG Serum or plasma glucose measurement (mass/volume) 248 mg/dL 70-105 Serum or plasma calcium measurement (mass/volume) 9.5 mg/dL 8.5-10.1 Serum or plasma total bilirubin measurement (mass/volu me) 0.8 mg/dL 0.1-1.0 Serum or plasma alkaline phosphatase long surement (enzymatic activity/volume) 120 U/L 40-136 Serum or plasma aspartate aminotransfera se measurement (enzymatic activity/volume) 67 U/L 5-34 Serum or plasma alanine aminotransferase measurement (enzymatic activity/volume) 48 U/L 0-55 Serum or plasma protein measurement (mass/volume) 7.4 g/dL 6.4-8.2 Serum or plasma albumin measurement (mass/volume) 3.9 g/dL 3.2-4.5 CALCIUM CORRECTED 9.6 mg/dL 8.5-10.1 CULTURE, URINE - 05/28/18 16:04 CULTURE, URINE, ROUTINE SEE NOTE NRG CULTURE, URINE - 06/14/18 18:24 CULTURE, URINE, ROUTINE SEE NOTE NRG Capillary blood glucose measurement by g lucometer (mass/volume) - 08/17/18 07:34 Capillary blood glucose measurement by glucometer (mas s/volume) 209 mg/dL 70-110 Complete urinalysis with reflex to cultu re - 08/21/18 11:45 Urine color determination ORANGE NRG Urine clarity determination VERY CLOUDY NRG Urine pH measurement by test strip 7 5-9 Specific gravity of urine by test strip 1.010 1.016-1.022 Urine protein assay by test strip, semi-quantitative 2+ NEGATIVE Urine glucose detection by automated test strip 1+ NEGATIVE Erythrocytes detection in urine sediment by light micr oscopy 4+ NEGATIVE Urine ketones detection by automated test strip NE GATIVE NEGATIVE Urine nitrite detection by test strip POSITIVE NEGATIVE Urine total bilirubin detection by test strip 3+ NEGATIVE Urine urobilinogen measurement by automated test strip (mass/volume) 12 mg/dL NORMAL Urine leukocyte esterase detection by dipstick 3+ NEGATIVE Automated urine sediment erythrocyte cou nt by microscopy (number/high power field) [HPF] NRG Automated urine sediment leukocyte count by microscopy (number/high power field) TNTC NRG Bacteria detection in urine sediment by light microsco py LARGE NRG Squamous epithelial cells detection in u rine sediment by light microscopy 5-10 NRG Crystals detection in urine sediment by light microsco py NONE NRG Casts detection in urine sediment by light microscopy NONE NRG Mucus detection in urine sediment by light microscopy NEGATIVE NRG Complete urinalysis with reflex to culture YES NRG Bacterial urine culture - 08/21/18 11:45 Bacterial urine culture [id number] NRG COLONY COUNT >100,000/ML NRG FTX;REPORTABLE SUSCEPTIBILITY REPORTED 08/24/18 9:30 NRG FREE TEXT ENTRY 2 ID REPORTED 08/22/18 11:05 NRG Dirithromycin susceptibility test by dis k diffusion - 08/21/18 11:45 Gentamicin susceptibility test by minimum inhibitory c oncentration <= NRG Trimethoprim/sulfamethoxazole susceptibi lity test by minimum inhibitoryconcentration > NRG Levofloxacin susceptibility test by minimum inhibitory concentration > NRG Ampicillin susceptibility test by minimum inhibitory c oncentration <= NRG Cefazolin susceptibility test by minimum inhibitory co ncentration 2 NRG Ceftriaxone susceptibility test by minimum inhibitory concentration <= NRG Ciprofloxacin susceptibility test by minimum inhibitor y concentration > NRG Meropenem susceptibility test by minimum inhibitory co ncentration <= NRG Nitrofurantoin susceptibility test by mi nimum inhibitory concentration <= NRG Amoxicillin and clavulanate potassium susc CHANDLER = NRG Dirithromycin susceptibility test by dis k diffusion - 08/21/18 11:45 Gentamicin susceptibility test by minimum inhibitory c oncentration <= NRG Trimethoprim/sulfamethoxazole susceptibi lity test by minimum inhibitoryconcentration <= NRG Levofloxacin susceptibility test by minimum inhibitory concentration <= NRG Ampicillin susceptibility test by minimum inhibitory c oncentration > NRG Cefazolin susceptibility test by minimum inhibitory co ncentration 8 NRG Ceftriaxone susceptibility test by minimum inhibitory concentration <= NRG Ciprofloxacin susceptibility test by minimum inhibitor y concentration <= NRG Meropenem susceptibility test by minimum inhibitory co ncentration <= NRG Nitrofurantoin susceptibility test by mi nimum inhibitory concentration 64 NRG Amoxicillin and clavulanate potassium susc CHANDLER = NRG Lipid 1996 panel - 11/03/18 11:31 Serum or plasma triglyceride measurement (mass/volume) 239 mg/dL <150 Serum or plasma cholesterol measurement (mass/volume) 105 mg/dL < 200 Serum or plasma cholesterol in HDL measurement (mass/v olume) 18 mg/dL 40-60 Cholesterol in LDL [mass/volume] in serum or plasma by direct assay 54 mg/dL 1-129 Serum or plasma cholesterol in VLDL measurement (mass/ volume) 48 mg/dL 5-40 CULTURE, URINE - 01/02/19 16:54 CULTURE, URINE, ROUTINE SEE NOTE NR CULTURE, URINE - 01/30/19 13:42 CULTURE, URINE, ROUTINE SEE NOTE NR CMP - 03/20/19 09:17 GLUCOSE 142 mg/dL 65-99 UREA NITROGEN (BUN) 7 mg/dL 7-25 CREATININE 0.57 mg/dL 0.50-1.10 eGFR NON-AFR. MALIAN 109 mL/min/1.73m2 > OR = 60 eGFR 126 mL/min/1.73m2 > OR = 60 BUN/CREATININE RATIO NOT APPLICABLE (calc) 6-22 SODIUM 139 mmol/L 135-146 POTASSIUM 4.1 mmol/L 3.5-5.3 CHLORIDE 99 mmol/L 98-110 CARBON DIOXIDE 32 mmol/L 20-32 CALCIUM 9.3 mg/dL 8.6-10.2 PROTEIN, TOTAL 7.1 g/dL 6.1-8.1 ALBUMIN 3.7 g/dL 3.6-5.1 GLOBULIN 3.4 g/dL (calc) 1.9-3.7 ALBUMIN/GLOBULIN RATIO 1.1 (calc) 1.0-2. 5 BILIRUBIN, TOTAL 0.8 mg/dL 0.2-1.2 ALKALINE PHOSPHATASE 107 U/L 33-115 AST 30 U/L 10-35 ALT 16 U/L 6-29 Complete blood count (CBC) with automate d white blood cell (WBC) differential - 04/24/19 23:45 Blood leukocytes automated count (number/volume) 13.3 10*3/uL 4.3-11.0 Blood erythrocytes automated count (number/volume) 4.99 10*6/uL 4.35-5.85 Venous blood hemoglobin measurement (mass/volume) 15.2 g/dL 11.5-16.0 Blood hematocrit (volume fraction) 46 % 35-52 Automated erythrocyte mean corpuscular volume 92 [ foz_us] 80-99 Automated erythrocyte mean corpuscular h emoglobin (mass per erythrocyte) 31 pg 25-34 Automated erythrocyte mean corpuscular h emoglobin concentration measurement (mass/volume) 33 g/dL 32-36 Automated erythrocyte distribution width ratio 14. 7 % 10.0- 14.5 Automated blood platelet count (count/volume) 233 10*3/uL 130-400 Automated blood platelet mean volume measurement 10.9 [foz_us] 7.4-10.4 Automated blood neutrophils/100 leukocytes 49 % 42-75 Automated blood lymphocytes/100 leukocytes 42 % 12-44 Blood monocytes/100 leukocytes 8 % 0-12 Automated blood eosinophils/100 leukocytes 2 % 0-10 Automated blood basophils/100 leukocytes 1 % 0-10 Blood neutrophils automated count (number/volume) 6.5 10*3 1.8-7.8 Blood lymphocytes automated count (number/volume) 5.5 10*3 1.0-4.0 Blood monocytes automated count (number/volume) 1. 0 10*3 0.0-1.0 Automated eosinophil count 0.2 10*3/uL 0 .0-0.3 Automated blood basophil count (count/volume) 0.1 10*3/uL 0.0-0.1 PT panel in platelet poor plasma by coag ulation assay - 04/24/19 23:45 Prothrombin time (PT) in platelet poor plasma by coagu lation assay 13.2 s 12.2-14.7 INR in platelet poor plasma or blood by coagulation as say 1.0 0.8-1.4 Activated partial thromboplastin time (a PTT) in platelet poor plasma bycoagulation assay - 04/24/19 23:45 Activated partial thromboplastin time (a PTT) in platelet poor plasma bycoagulation assay 30 s 24-35 Whole blood basic metabolic panel - 4 23:45 Serum or plasma sodium measurement (moles/volume) 139 mmol/L 135-145 Serum or plasma potassium measurement (moles/volume) 3.4 mmol/L 3.6-5.0 Serum or plasma chloride measurement (moles/volume) 101 mmol/L 98-107 Carbon dioxide 28 mmol/L 21-32 Serum or plasma anion gap determination (moles/volume) 10 mmol/L 5-14 Serum or plasma urea nitrogen measurement (mass/volume ) 9 mg/dL 7-18 Serum or plasma creatinine measurement (mass/volume) 0.79 mg/dL 0.60-1.30 Serum or plasma urea nitrogen/creatinine mass ratio 11 NRG Serum or plasma creatinine measurement w ith calculation of estimated glomerular filtration rate > NRG Serum or plasma glucose measurement (mass/volume) 200 mg/dL 70-105 Serum or plasma calcium measurement (mass/volume) 9.5 mg/dL 8.5-10.1 Serum or plasma choriogonadotropin (preg stephen test) detection - 04/24/19 23:45 Serum or plasma choriogonadotropin ( test) de tection NEGATIVE NEGATIVE Complete urinalysis with reflex to cultu re - 04/24/19 23:58 Urine color determination YELLOW NRG Urine clarity determination CLEAR NR G Urine pH measurement by test strip 6.0 5-9 Specific gravity of urine by test strip 1.010 1.016-1.022 Urine protein assay by test strip, semi-quantitative NEGATIVE NEGATIVE Urine glucose detection by automated test strip 3+ NEGATIVE Erythrocytes detection in urine sediment by light micr oscopy 1+ NEGATIVE Urine ketones detection by automated test strip NE GATIVE NEGATIVE Urine nitrite detection by test strip NEGATIVE NEGATIVE Urine total bilirubin detection by test strip NEGA TIVE NEGATIVE Urine urobilinogen measurement by automated test strip (mass/volume) 0.2 mg/dL < = 1.0 Urine leukocyte esterase detection by dipstick NEG ATIVE NEGATIVE Automated urine sediment erythrocyte cou nt by microscopy (number/high power field) RARE NRG Automated urine sediment leukocyte count by microscopy (number/high power field) NONE NRG Bacteria detection in urine sediment by light microsco py TRACE NRG Squamous epithelial cells detection in u rine sediment by light microscopy 0-2 NRG Crystals detection in urine sediment by light microsco py NONE NRG Casts detection in urine sediment by light microscopy NONE NRG Mucus detection in urine sediment by light microscopy NEGATIVE NRG Complete urinalysis with reflex to culture NO NRG Capillary blood glucose measurement by g lucometer (mass/volume) - 05/02/19 12:03 Capillary blood glucose measurement by glucometer (mas s/volume) 160 mg/dL 70-110 Methicillin resistant Staphylococcus aur eus (MRSA) screening culture - 05/02/19 12:05 Methicillin resistant Staphylococcus aureus (MRSA) scr eening culture NEG NRG Complete blood count (CBC) with automate d white blood cell (WBC) differential - 05/02/19 12:15 Blood leukocytes automated count (number/volume) 11.6 10*3/uL 4.3-11.0 Blood erythrocytes automated count (number/volume) 5.03 10*6/uL 4.35-5.85 Venous blood hemoglobin measurement (mass/volume) 15.4 g/dL 11.5-16.0 Blood hematocrit (volume fraction) 47 % 35-52 Automated erythrocyte mean corpuscular volume 93 [ foz_us] 80-99 Automated erythrocyte mean corpuscular h emoglobin (mass per erythrocyte) 31 pg 25-34 Automated erythrocyte mean corpuscular h emoglobin concentration measurement (mass/volume) 33 g/dL 32-36 Automated erythrocyte distribution width ratio 14. 8 % 10.0- 14.5 Automated blood platelet count (count/volume) 258 10*3/uL 130-400 Automated blood platelet mean volume measurement 11.2 [foz_us] 7.4-10.4 Automated blood neutrophils/100 leukocytes 51 % 42-75 Automated blood lymphocytes/100 leukocytes 39 % 12-44 Blood monocytes/100 leukocytes 8 % 0-12 Automated blood eosinophils/100 leukocytes 2 % 0-10 Automated blood basophils/100 leukocytes 1 % 0-10 Blood neutrophils automated count (number/volume) 5.9 10*3 1.8-7.8 Blood lymphocytes automated count (number/volume) 4.5 10*3 1.0-4.0 Blood monocytes automated count (number/volume) 0. 9 10*3 0.0-1.0 Automated eosinophil count 0.2 10*3/uL 0 .0-0.3 Automated blood basophil count (count/volume) 0.1 10*3/uL 0.0-0.1 Blood type T Indirect antibody screen pa nelli - 05/02/19 12:15 WRISTBAND NUMBER [id number] NRG ABO+Rh group AP NRG Blood group antibody screen NEGATIVE NR G Encounters ACCT No. Visit Date/Time Discharge Status Pt. Type Provider Facility Loc./Unit Complaint [id number] 05/24/2019 17:52:00 05/24/2019 23:59 :00 DIS Outpatient JIMBO GRIJALVA [id number] 05/02/2019 11:47:00 12:00:00 DIS Outpatient JOSE G PARNELL MD [facility] SDC DYSFUNCTIONAL U TERINE BLEEDING [id number] 04/30/2019 05:40:00 14:35:00 DIS Outpatient JOSE G PARNELL MD [facility] PREOP DYSFUNCTIONAL U TERINE BLEEDING [id number] 03/26/2019 08:09:00 23:59:59 CLS Outpatient CHESTER JOYCE APRN [facility] RAD SCREENING [id number] 11/30/2018 08:28:00 23:59:59 CLS Outpatient JACOB NEWSOME MD [facility] RAD DISSECTION OF VERTEBRAL ARTERY [id number] 11/01/2018 09:46:00 23:59:59 CLS Outpatient ERICA ZHANG [facility] LAB LIPID,HEPAT IC FUNCTION PANEL [id number] 11/01/2018 09:42:00 23:59:59 CLS Outpatient ZACK GRIMALDO MD [facility] RAD UPPER ABD PAIN,DISTENSI ON [id number] 08/21/2018 11:34:00 23:59:59 CLS Outpatient ZACK GRIMALDO MD [facility] LAB DYSURIA [id number] 08/17/2018 06:51:00 15:00:00 DIS Outpatient ZACK GRIMALDO MD [facility] SDC INCISIONAL HERNIA [id number] 08/11/2018 05:32:00 11:26:00 DIS Outpatient ZACK GRIMALDO MD [facility] PREOP INCISIONAL HERNIA [id number] 06/06/2018 08:08:00 23:59:59 CLS Preadmit MIRELLA MCMILLAN APRN [facility] RT SOB,LUNG NODULE [id number] 06/06/2018 08:06:00 23:59:59 CLS Preadmit MIRELLA MCMILLAN SWEATER DESIGNER [facility] RAD SOB,LUNG NODULE [id number] 05/31/2018 11:09:00 23:59:59 CLS Outpatient MIRELLA MCMILLAN [employer]WE[employer] DESIGNER [facility] RAD TOBACCO USER,GIOVANNA NG NODULE,SOB [id number] 03/18/2018 08:51:00 11:39:00 DIS Outpatient NATHAN WRIGHT, AKBAR Solis [facility] ER MULTIPLE COMPLA INTS [id number] 03/13/2018 11:54:00 12:14:00 DIS Emergency THELMA FARAH SWEATER DESIGNER [facility] ER BRONCHITIS/SOB/COUGH IS WORSE [id number] 02/24/2018 21:21:00 22:29:00 DIS Emergency RENY MEJIA [facility] ER REDNESS AT INSULIN SHOT SITE [id number] 02/02/2018 19:35:00 21:29:00 DIS Emergency PRISCILLA HUNT [facility] ER SORE THROAT [id number] 01/27/2018 14:53:00 23:59:59 CLS Outpatient SILVIA SPENCER DO [facility] RAD LT QUAD ABD PAIN [id number] 01/23/2018 15:52:00 18:23:00 DIS Emergency ROBERTO RENY [facility] ER TREATED FOR C-DIFF/DIAR ROSALBA/ABD AND RECTAL PAIN [id number] 12/19/2017 08:22:00 23:59:59 CLS Preadmit YASMEEN WRIGHT, IGOR [facility] ONC [id number] 12/07/2017 16:31:00 18:45:00 DIS Emergency MAGDA MARTINEZ [facility] ER DIZZINESS/NAUSEA [id number] 12/05/2017 15:42:00 23:59:59 CLS Outpatient SOTERO HUIZAR APRN [facility] RAD FLANK PAIN [id number] 11/24/2017 16:54:00 18:08:00 DIS Emergency THELMA FARAH SWEATER DESIGNER [facility] ER DIZZINESS;NAUSEA;TICK B ITE [id number] 11/04/2017 08:02:00 09:00:00 DIS Emergency ASIF WRIGHT, BILLY Baeza [facility] ER HURTS WHEN URINATING [id number] 09/30/2017 12:57:00 23:59:59 CLS Outpatient YUKO GARRETT MD [facility] CARD CHEST PAIN SYNDROME,LAVONNE D,HTN,COPD [id number] 09/19/2017 13:29:00 Petar 23:59:59 CLS Outpatient YUKO GARRETT MD [facility] CARD CHEST PAIN SYNDROME,LAVONNE D,HTN,COPD [id number] 09/19/2017 13:11:00 Petar 23:59:59 CLS Preadmit YUKO GARRETT MD [facility] CARD CHEST PAIN SYNDROME,LAVONNE D,HTN,COPD [id number] 09/15/2017 09:16:00 018 12:28:00 DIS Emergency JULIENNE CLEVELAND MD [facility] ER CP,STRAIN IN BA CK,SOB [id number] 08/16/2017 20:47:00 018 21:52:00 DIS Emergency THELMA FARAH SWEATER DESIGNER [facility] ER RUSSELL;NECK PAIN [id number] 06/23/2017 06:43:00 018 23:59:59 CLS Outpatient SOTERO HUIZAR SWEATER DESIGNER [facility] RAD RUQ PAIN [id number] 04/28/2017 09:51:00 018 23:59:59 CLS Outpatient MIRELLA MCMILLAN APRN [facility] RAD R91.1,Z72.0 [id number] 04/27/2017 09:42:00 018 23:59:59 CLS Outpatient MIRELLA MCMILLAN APRN [facility] RT I44.9 COPD [id number] 04/16/2017 22:16:00 018 01:15:00 DIS Emergency GWEN RAMOS MD [facility] ER CHEST PAIN AND BACK JOSE N FROM DRY COUGH [id number] 04/05/2017 09:16:00 018 23:59:59 CLS Outpatient MIRELLA MCMILLAN APRN [facility] RAD R91.1 LUNG NODU LE [id number] 03/29/2017 10:15:00 018 23:59:59 CLS Preadmit SOTERO HUIZAR SWEATER DESIGNER [facility] RAD LUNG NODULE INCREASING IN SIZE [id number] 03/21/2017 00:21:00 018 23:59:59 CLS Preadmit IGOR ARANA MD [facility] ONC [id number] 12/20/2016 15:01:00 017 00:01:00 DIS Outpatient IGOR ARANA MD [facility] ONC [id number] 03/12/2017 12:32:00 017 16:27:00 DIS Emergency PRISCILLA HUNT [facility] ER ABD PAIN, SHAKY, 4 PRE VIOUS BRAIN- STEM FLORES [id number] 11/09/2016 20:08:00 017 23:58:00 DIS Emergency AKBAR EVANS MD [facility] ER DIZZINESS,NAUSE A [id number] 06/29/2016 15:16:00 017 00:01:00 DIS Outpatient GILBERT GOMEZ MD [facility] ONC [id number] 08/16/2016 13:54:00 017 16:50:00 DIS Emergency PRISCILLA HUNT [facility] ER UTI [id number] 07/02/2016 10:14:00 017 23:59:59 CLS Outpatient JASON WRIGHT, GILBERT valdovinos [facility] RAD HEADACHE,DIZZINESS [id number] 12/18/2015 09:01:00 016 00:01:00 DIS Outpatient GILBERT GOMEZ MD [facility] ONC [id number] 09/18/2015 12:52:00 016 00:01:00 DIS Outpatient GILBERT GOMEZ MD [facility] ONC [id number] 09/12/2015 20:37:00 016 01:00:00 DIS Emergency JOSE ADLER DO [facility] ER DIZZINESS [id number] 09/10/2015 01:28:00 016 03:57:00 DIS Emergency AKBAR EVANS MD [facility] ER RUSSELL,BLURRY EYES, BLOOD SUGAR HIGH,DIZZY [id number] 07/24/2015 09:02:00 016 23:59:59 CLS Outpatient GILBERT GOMEZ MD [facility] ONC [id number] 05/23/2015 23:06:00 016 00:31:00 DIS Emergency RONAN SOTO MD [facility] ER FULL BODY TINGLING/NUMB NESS [id number] 05/22/2015 13:58:00 16:11:00 DIS Emergency FARAH THELMA Abhay WALTER [facility] ER DIZZINESS LIPS NUMBNESS [id number] 04/28/2015 11:14:00 23:59:59 CLS Outpatient PASTOR CISNEROS MD [facility] RAD CALF PAIN,HEADACHES,DIMPLE BETES [id number] 03/28/2015 22:08:00 23:59:59 CLS Emergency JOSE ADLER DO [facility] ER DIZZINESS,FACIAL NUMBNE SS [id number] 03/24/2015 10:00:00 23:59:59 CLS [facility]read[facility] [id number] 12/23/2014 17:00:00 00:01:00 DIS Outpatient [facility] [id number] 03/21/2015 10:24:00 23:59:59 CLS Outpatient PASTOR CISNEROS MD [facility] LAB TYPE 2 DIABETES INSULIN DEPENDENT [id number] 01/15/2015 08:11:00 23:59:59 CLS Outpatient YUKO GARRETT MD [facility] CARD CPS,HTN,PALPITATIONS,SO B [id number] 12/02/2014 10:00:00 00:01:00 DIS Outpatient PASTOR CISNEROS MD [facility] DSME TYPE 2 DIABETES [id number] 07/25/2014 08:49:00 00:01:00 DIS Outpatient GILBERT GOMEZ MD [facility] ONC [id number] 08/27/2014 15:20:00 23:59:59 CLS Outpatient JACOB NEWSOME MD [facility] RAD FOLLOW UP PER RADIOLOGI ST [id number] 08/26/2014 12:47:00 23:59:59 CLS Outpatient JACOB NEWSOME MD [facility] RAD CEREBRAL ATHEROSCLEROSI S [id number] 07/23/2014 20:00:00 23:59:59 CLS Preadmit YUKO GARRETT MD [facility] SLEEP SNORING,HTN,HX OF STROK E [id number] 07/18/2014 11:36:00 15:39:00 DIS Emergency NATHAN WRIGHT, AKBRA Solis [facility] ER DIZZINESS,NAUSE A [id number] 06/17/2014 08:15:00 23:59:59 CLS Outpatient YUKO GARRETT MD [facility] CARD PALPITATIONS SOB HTN [id number] 01/24/2014 08:49:00 015 00:01:00 DIS Outpatient JASON WRIGHT, GILBERT valdovinos [facility] ONC [id number] 02/13/2014 10:00:00 015 16:22:00 DIS Outpatient PASTOR CISNEROS MD [facility] REHAB CVA [id number] 11/22/2013 09:41:00 014 00:01:00 DIS Outpatient PASTOR CISNEROS MD [facility] REHAB CVA [id number] 10/25/2013 10:49:00 014 00:01:00 DIS Outpatient GILBERT GOMEZ MD [facility] ONC [id number] 12/18/2013 09:18:00 014 23:59:59 CLS Outpatient PASTOR CISNEROS MD [facility] RAD CHOKING,TROUBLE SWALLOW ING [id number] 12/14/2013 19:01:00 014 20:23:00 DIS Emergency RONAN SOTO MD [facility] ER CONGESTION [id number] 10/04/2013 13:16:00 014 23:59:59 CLS Outpatient PASTOR CISNEROS MD [facility] RAD NEUROLOGICAL CHANGES, R ECENT STROKE [id number] 09/24/2013 18:13:00 13:30:00 DIS Inpatient SILVIA MARTINEZ MD [facility] IRF CVA [id number] 09/15/2013 14:10:00 12:35:00 DIS Outpatient PASTOR CISNEROS MD Via [facility] SDC VERTIGO [id number] 09/07/2013 08:36:00 23:59:59 CLS Outpatient PASTOR CISNEROS MD Via [facility] RT SEIZURE TYPE ACTIVITY [id number] 07/03/2013 12:37:00 23:59:59 CLS Outpatient TRISTAN WRIGHT, SULEMA Via [facility] CARD CP,HTN [id number] 06/20/2013 08:30:00 23:59:59 CLS Outpatient PASTOR CISNEROS MD Via [facility] LAB HYPOGLYCEMIA,FLUXUATING BLOOD SUGAR [id number] 06/08/2013 09:00:00 23:59:59 CLS Outpatient SULEMA HUDSON MD Via [facility] CARD CP,HTN [id number] 05/21/2013 14:03:00 23:59:59 CLS Outpatient PASTOR CISNEROS MD Via [facility] CARD HYPERTENSION,PERIPHERD EDEMA,SMOKER,CARDIMEGALY,CH [id number] 05/17/2013 21:44:00 014 23:59:59 CLS Outpatient PASTOR CISNEROS MD Via [facility] LAB LIPID PANEL [id number] 05/17/2013 12:24:00 23:59:59 CLS Outpatient PASTOR CISNEROS MD Via [facility] LAB EDEMA,FATIGUE,TACHYCARD IA,JOINT PAIN [id number] 02/02/2013 14:11:00 10:40:00 DIS Outpatient PASTOR CISNEROS MD Via [facility] REHAB NECK PAIN, UPPER BACK P AIN RADIATING LEFT SHOULDER [id number] 10/31/2012 14:21:00 013 23:59:59 CLS Outpatient PASTOR CISNEROS MD Via [facility] RAD NECK PAIN,TENDERNESS RA DIATING FROM ARM TO BACK OF [id number] 09/04/2012 08:56:00 013 23:59:59 CLS Outpatient PASTOR CISNEROS MD Via [facility] RAD ABD PAIN,BLOATING R. SI DED FIRMNESS [id number] 09/01/2012 09:16:00 013 10:45:00 DIS Outpatient PASTOR CISNEROS MD Via [facility] ABNORMAL MRI OF BRAIN;M ULTIPLE SCLEROSIS [id number] 07/18/2012 08:50:00 23:59:59 CLS Outpatient PASTOR CISNEROS MD Via [facility] RAD FOLLOW UP ABD MRI [id number] 10/01/2019 09:45:00 P EN Preadmit MIRELLA MCMILLAN E SABA Via [facility] RAD SOB,GERD,LUNG NODULE [id number] 04/24/2019 23:56:00 Document Registration [id number] 08/26/2014 12:46:00 Document Registration [id number] 05/19/2014 09:39:00 Document Registration [id number] 05/11/2014 19:49:00 Document Registration [id number] 06/26/2012 11:26:00 Document Registration [id number] 05/19/2012 09:58:00 Document Registration [id number] 04/20/2012 12:51:00 Document Registration [id number] 01/04/2012 12:04:00 Document Registration [id number] 12/31/2011 08:48:00 Document Registration [id number] 11/22/2011 22:34:00 Document Registration [id number] 10/08/2011 22:58:00 Document Registration [id number] 10/07/2011 13:12:00 Document Registration [id number] 07/26/2011 14:37:00 Document Registration [id number] 04/05/2011 08:01:00 Document Registration [id number] 02/03/2011 11:11:00 Document Registration [id number] 02/01/2011 11:54:00 Document Registration [id number] 12/08/2010 08:13:00 Document Registration [id number] 08/25/2009 10:44:00 Document Registration [id number] 05/06/2019 17:00:00 05/06/2019 23:59:5 9 CLS [facility] [id number] 03/20/2019 08:20:00 Document Registration [id number] 01/30/2019 13:00:00 Document Registration [id number] 01/02/2019 16:35:00 Document Registration [id number] 06/14/2018 11:40:00 Document Registration [id number] 05/28/2018 16:00:00 Document Registration [id number] 03/04/2018 12:00:00 Document Registration [id number] 01/03/2018 09:00:00 Document Registration [id number] 12/13/2017 16:00:00 Document Registration [id number] 11/01/2017 11:00:00 Document Registration [id number] 09/23/2017 09:40:00 Document Registration [id number] 08/26/2017 11:20:00 Document Registration [id number] 08/19/2017 16:05:00 Document Registration [id number] 08/02/2017 08:20:00 Document Registration [id number] 06/23/2017 16:40:00 Document Registration [id number] 06/17/2017 14:40:00 Document Registration [id number] 05/11/2017 14:45:00 Document Registration [id number] 01/06/2017 14:00:00 Document Registration
== END 2019-06-01 23:18 | disposition home or self-care (01) ==
LOC: EDUNIT# 22:45 → ER 22:46
DX: M70.71 Other bursitis of hip, right hip (principal); I25.10 Atherosclerotic heart disease of native coronary artery without angina pectoris; I10 Essential (primary) hypertension; E78.00 Pure hypercholesterolemia, unspecified; G43.909 Migraine, unspecified, not intractable, without status migrainosus; K21.9 Gastro-esophageal reflux disease without esophagitis; E11.9 Type 2 diabetes mellitus without complications; F41.9 Anxiety disorder, unspecified; F43.10 Post-traumatic stress disorder, unspecified; F17.210 Nicotine dependence, cigarettes, uncomplicated; Z86.73 Personal history of transient ischemic attack (TIA), and cerebral infarction without residual deficits; Z88.0 Allergy status to penicillin; Z88.5 Allergy status to narcotic agent; Z88.1 Allergy status to other antibiotic agents; Z88.8 Allergy status to other drugs, medicaments and biological substances; Z79.82 Long term (current) use of aspirin; Z79.4 Long term (current) use of insulin; Z98.51 Tubal ligation status; Z82.49 Family history of ischemic heart disease and other diseases of the circulatory system; Z80.8 Family history of malignant neoplasm of other organs or systems
CPT/HCPCS: 99283

== ENCOUNTER → 2019-10-17 | Outpatient (CLI) | payer MEDICARE, MEDICAID ==
[~2019-10-17] MED LIST changes: +CATHETER FLUSH 10 ML SYR IV PRN; +ESCI20TA45; +HOLD METFORMIN - RECEIVED CONTRAST 20 ML VIAL IV SCH; +IOHEXOL 350 MG/ML 100 ML (OMNIPAQUE 350) VIAL IV ONE; +NS 100 ML (IVPB) BAG IV ONE; +ONDA8TAB15; +OSEL75CA15; -PROM118S4 PO; +PROM118S5 PO; -SENN-141 PO; +SENN-234 PO
[2019-10-17 10:30] LABS: BUN/CREATININE RATIO 12; CREATININE SERUM 0.76 MG/DL (0.60-1.30); GFR ESTIMATED > 60
--- NOTE | 2019-10-17 11:40 | Diagnostic Imaging Report ---
PROCEDURE: CT chest with contrast only. TECHNIQUE: Multiple contiguous axial images were obtained through the chest after administration of intravenous contrast. Auto Exposure Controls were utilized during the CT exam to meet ALARA standards for radiation dose reduction. INDICATION: Lung nodule. FINDINGS: The previous CT chest exam of 05/31/2018 noted a purely groundglass 8 mm nodule in the left upper lung. This finding did seem stable when compared to the prior exam of 10/19/2017. The possibility that this was related to an indolent neoplastic process was raised. On this exam, the density in question is again evident and now measures only 5.1 mm. The decrease in size of this finding in the interval since the prior exam would indicate that this is not related to an aggressive neoplastic process; however, its precise etiology is unclear. There is no other parenchymal lung mass identified. The heart size is within normal limits and stable when compared to the prior exam. Coronary artery calcifications are again evident. The aorta is not abnormally dilated and there is no sign of a dissection. There is no defect within the pulmonary arteries to indicate a pulmonary embolus either. There is no mediastinal or hilar adenopathy. The thyroid gland was not visualized in its entirety. Where visualized, it appear similar to the prior study. There is no obvious breast mass. The sections through the upper abdomen again show mild hepatosplenomegaly. The appearance of the liver and spleen is similar to the prior CT abdomen/pelvis exam of 11/01/2018. The bone windows show no sign of a fracture or of a destructive lesion. IMPRESSION: 1. The groundglass nodular density in the left upper lung seen previously has decreased in size. Consequently, most likely this is a benign process. A [address] chest exam would be recommended for further study. 2. There is no acute cardiopulmonary abnormality noted. 3. There is coronary artery disease. 4. There is mild hepatosplenomegaly. Dictated by: Dictated on workstation # [id number]
== END ==
LOC: RAD 10:15
PROVIDERS: ATTEND Nurse Practitioner Family
DX: J98.4 Other disorders of lung (principal); I25.10 Atherosclerotic heart disease of native coronary artery without angina pectoris; J44.9 Chronic obstructive pulmonary disease, unspecified; J30.2 Other seasonal allergic rhinitis; K21.9 Gastro-esophageal reflux disease without esophagitis; E66.9 Obesity, unspecified; R16.2 Hepatomegaly with splenomegaly, not elsewhere classified; R91.1 Solitary pulmonary nodule; Z72.0 Tobacco use
CPT/HCPCS: 36415; 71260; 82565; 84520

== ENCOUNTER → 2019-12-27 | Outpatient (CLI) | payer MEDICARE, MEDICAID ==
[~2019-12-27] MED LIST changes: -CATHETER FLUSH 10 ML SYR IV PRN; -HOLD METFORMIN - RECEIVED CONTRAST 20 ML VIAL IV SCH; -IOHEXOL 350 MG/ML 100 ML (OMNIPAQUE 350) VIAL IV ONE; -NS 100 ML (IVPB) BAG IV ONE; -PANT40TA3 PO; +PANT40TA52 PO
[2019-12-27 07:40] LABS: ALANINE AMINOTRANSFERASE 20 U/L (0-55); ALBUMIN 3.9 GM/DL (3.2-4.5); ALKALINE PHOSPHATASE 96 U/L (40-136); BILIRUBIN,TOTAL 0.8 MG/DL (0.1-1.0); BUN/CREATININE RATIO 13; CALCIUM 9.2 MG/DL (8.5-10.1); CARBON DIOXIDE 24 MMOL/L (21-32); CHLORIDE 102 MMOL/L (98-107); CHOLESTEROL 136 MG/DL (< 200); CREATININE SERUM 0.69 MG/DL (0.60-1.30); GFR ESTIMATED > 60; GLUCOSE 184 MG/DL (70-105); HDL CHOLESTEROL 26 MG/DL (40-60); POTASSIUM 3.6 MMOL/L (3.6-5.0); SODIUM 141 MMOL/L (135-145); TOTAL PROTEIN 7.3 GM/DL (6.4-8.2); TRIGLYCERIDES 296 MG/DL (<150); VLDL CHOLESTEROL 59 MG/DL (5-40)
== END ==
LOC: LAB 07:02
PROVIDERS: ATTEND Physician Assistant
DX: K21.9 Gastro-esophageal reflux disease without esophagitis (principal); R00.2 Palpitations; R06.00 Dyspnea, unspecified; R07.89 Other chest pain; Z20.828 Contact with and (suspected) exposure to other viral communicable diseases
CPT/HCPCS: 36415; 80053; 80061; 86769

== ENCOUNTER → 2020-02-04 | Outpatient (CLI) | payer MEDICARE, MEDICAID | LOC: CARD 15:00 | PROVIDERS: ATTEND Physician Assistant | DX: K21.9 Gastro-esophageal reflux disease without esophagitis (principal) | CPT/HCPCS: 93306 ==

== ENCOUNTER → 2020-02-11 | Outpatient (CLI) | payer MEDICARE, MEDICAID ==
[~2020-02-11] VITALS: Ht 157 cm; Wt 70.0 kg
[~2020-02-11] MED LIST changes: +REGADENOSON 0.4 MG/5 ML SYR (LEXISCAN) IV ONE
[2020-02-11] MEDS: CATHETER FLUSH 10 ML SYR IV PRN ×2 (07:38→09:10)
[2020-02-11 08:54] VITALS: BP 150/82
--- NOTE | 2020-02-12 08:50 | Cardiology Stress Test Report ---
Stress Test Report Date of Procedure/Referring: Date of Procedure: Feb 11, 2020 PCP Bibi Oneal Admitting [facility] Indications: Chest pain Baseline Heart Rate: 97 Baseline Blood Pressure: Blood Pressure Systolic: 150 Blood Pressure Diastolic: 82 Baseline Vitals Vital Signs Date Time Temp Pulse Resp B/P (MAP) Pulse Ox O2 Delivery O2 Flow Rate FiO2 02/11/20 08:54 98 14 150/82 (104) 95 Room Air Baseline EKG: Baseline EKG: normal sinus rhythm Summary After explaining the procedure to the patient, she signed a consent and then brought to the stress nuclear laboratory. Patient received 0.4 mg Lexiscan for stress test, ECG, heart rate and blood pressure were monitored continuously. Resting and stress dose of radio tracer were injected, imaging was acquired and reviewed in short axis, horizontal long axis and vertical long axis views. TID: 1.13 SSS: 5 SDS: 4 EF: 62 1. Patient tolerated Lexiscan well 2. Extracardiac attenuation with mild decrease uptake at the base of the anterior wall with mild reversibility, no significant ischemia or infarction on SPECT images 3. Normal left ventricular size, EF 62 percent YUKO GARRETT MD Feb 12, 2020 08:50
== END ==
LOC: CARD 07:45
PROVIDERS: ATTEND Physician Assistant
DX: R07.9 Chest pain, unspecified (principal); K21.9 Gastro-esophageal reflux disease without esophagitis; R00.2 Palpitations
CPT/HCPCS: 78452; 93017; A9502

== ENCOUNTER 2020-12-30 10:32 | Emergency (ER) | payer MEDICARE, MEDICAID ==
[~2020-12-30] VITALS: Ht 157.5 cm; Wt 74.0 kg
[~2020-12-30 10:32] MED LIST changes: -DOXY100C2 PO; +DOXY100C5 PO; +ESCI20TA39; -ESCI20TA45; -OMEP40CA27 PO; +OMEP40CA6 PO; -REGADENOSON 0.4 MG/5 ML SYR (LEXISCAN) IV ONE
[2020-12-30] MEDS ORDERED: MECLIZINE 25 MG (ANTIVERT) TAB PO STA (11:42)
[2020-12-30 11:49] LABS: BILIRUBIN,URINE NEGATIVE (NEGATIVE); CLARITY,URINE CLEAR; COLOR,URINE YELLOW; GLUCOSE, URINE (UA) 3+ (NEGATIVE); KETONES,URINE NEGATIVE (NEGATIVE); LEUKOCYTE ESTERASE ,URINE NEGATIVE (NEGATIVE); NITRITE,URINE NEGATIVE (NEGATIVE); PROTEIN,URINE NEGATIVE (NEGATIVE)
[2020-12-30 11:53] VITALS: BP_SYST 112; BP_SYST 126; BP_SYST 129; BP_DIAS 57; BP_DIAS 63
[2020-12-30 11:59] LABS: BACTERIA,URINE FEW /HPF; WBC,URINE 0-2 /HPF
[2020-12-30 12:00] LABS: YEAST,URINE RARE /HPF
[2020-12-30 12:23] LABS: BASOPHILS # (AUTO) 0.1 10^3/uL (0.0-0.1); BASOPHILS % (AUTO) 1 % (0-10); EOSINOPHILS # (AUTO) 0.2 10^3/uL (0.0-0.3); EOSINOPHILS % (AUTO) 2 % (0-10); HEMATOCRIT 45 % (35-52); HEMOGLOBIN 14.6 g/dL (11.5-16.0); LYMPHOCYTES # (AUTO) 3.6 10^3/uL (1.0-4.0); LYMPHOCYTES % (AUTO) 33 % (12-44); MEAN CORPUSCULAR HEMOGLOBIN 30 pg (25-34); MEAN CORPUSCULAR HGB CONC 32 g/dL (32-36); MEAN CORPUSCULAR VOLUME 92 fL (80-99); MEAN PLATELET VOLUME 10.5 fL (9.0-12.2); MONOCYTES # (AUTO) 0.7 10^3/uL (0.0-1.0); MONOCYTES % (AUTO) 7 % (0-12); NEUTROPHILS # (AUTO) 6.3 10^3/uL (1.8-7.8); NEUTROPHILS % (AUTO) 58 % (42-75); PLATELET COUNT 209 10^3/uL (130-400); WHITE BLOOD COUNT 10.9 10^3/uL (4.3-11.0)
[2020-12-30 12:38] LABS: ALBUMIN 3.9 GM/DL (3.2-4.5); CHLORIDE 102 MMOL/L (98-107); POTASSIUM 3.3 MMOL/L (3.6-5.0); SODIUM 140 MMOL/L (135-145)
[2020-12-30 12:39] LABS: INR 0.9 (0.8-1.4); PROTHROMBIN TIME PATIENT 12.9 SEC (12.2-14.7)
[2020-12-30 12:40] LABS: CALCIUM 9.3 MG/DL (8.5-10.1)
[2020-12-30 12:41] LABS: GLUCOSE 173 MG/DL (70-105); TOTAL PROTEIN 7.5 GM/DL (6.4-8.2)
[2020-12-30 12:42] LABS: CARBON DIOXIDE 25 MMOL/L (21-32)
--- NOTE | 2020-12-30 12:42 | ED General ---
General Chief Complaint: Dizziness/Syncope Stated Complaint: HEAD PRESSURE,DIZZINESS History of Present Illness Date Seen by Provider: Dec 30, 2020 Time Seen by Provider: 11:06 Initial Comments 50-year-old female presents ambulatory for a 2 to 3-day history of vertigo and head pressure. She reports going to [facility] on 01/27/2021 and since then she has had symptoms present. She has not taken any medication for her symptoms. She has a history of strokes in the past approximately 7 years a go. She was treated for approximately 1 month, due to sinus congestion and allergies. She sees Dr. Hill for cardiology and an neurosurgeon in [place], who treated her for the CVAs. She denies headache, feels like there is pressure in her head, denies sinus congestion or cough. She denies chest pain and takes ASA 81 mg daily. Timing/Duration: 2-3 Days Severity: Mild Associated Systoms: No Chest Pain, No Cough, No Headaches, No Loss of Appetite, No Malaise, No Nausea/Vomiting, No Seizure, No Shortness of Air, No Syncope, No Weakness Allergies and Home Medications Allergies Coded Allergies: Penicillins (Verified Allergy, Severe, RASH/BREATHING DIFFICULTY, 08/11/18) codeine (Verified Allergy, Severe, BREATHING DIFFICULTY, 08/11/18) erythromycin base (Unverified Allergy, Mild, N/V, 08/11/18) nitrofurantoin (Verified Allergy, Mild, N/V, 08/11/18) Patient Home Medication List Home Medication List Reviewed: Yes Aspirin (Aspirin) 81 Mg Tab.chew, 81 MG PO DAILY, (Reported) Entered as Reported by: SORIN YOUNG on 08/11/18 1109 Atorvastatin Calcium (Atorvastatin Calcium) 80 Mg Tablet, 80 MG PO HS, (Reported) Entered as Reported by: SORIN YOUNG on 08/11/18 1109 Canagliflozin (Invokana) 300 Mg Tablet, 300 MG PO DAILY, (Reported) Entered as Reported by: LASHANDA WISE on 04/30/19 1426 Diltiazem HCl (Diltiazem ER) 120 Mg Capsule.er, 120 MG PO DAILY, (Reported) Entered as Reported by: LASHANDA WISE on 04/30/19 142 Docusate Sodium (Colace) 100 Mg Capsule, 100 MG PO BID Prescribed by: JOSE G FERNANDES on 05/02/19 1257 Escitalopram Oxalate (Escitalopram Oxalate) 20 Mg Tablet, (Reported) Entered as Reported by: CHUYITA HENRY on 06/01/192300 Estradiol (Estrace Tablet) 1 Mg Tablet, 1 MG PO DAILY Prescribed by: JOSE G FERNANDES on 05/02/19 1257 Hydrochlorothiazide (Hydrochlorothiazide) 25 Mg Tablet, 25 MG PO DAILY, (Reported) Entered as Reported by: SORIN YOUNG on 08/11/18 110 Ibuprofen (Ibuprofen) 800 Mg Tablet, 800 MG PO Q6H PRN for PAIN Prescribed by: JOSE G FERNANDES on 05/02/19 1257 Insulin Aspart (Novolog Flexpen) 300 Units/3 Ml Solution, 10 UNITS SQ AC, (Reported) Entered as Reported by: SORIN YOUNG on 08/11/18 110 Insulin Detemir (Levemir Flextouch) 100 Unit/1 Ml Insuln.pen, 35 UNIT SQ BID, (Reported) Entered as Reported by: LASHANDA WISE on 04/30/19 142 Linaclotide (Linzess) 72 Mcg Capsule, 72 MCG PO DAILY, (Reported) Entered as Reported by: LASHANDA WISE on 04/30/191425 Medroxyprogesterone Acetate (Medroxyprogesterone Acetate) 2.5 Mg Tablet, 2.5 MG PO DAILY, (Reported) Entered as Reported by: SORIN YOUNG on 08/11/18 110 Metoprolol Tartrate (Metoprolol Tartrate) 25 Mg Tablet, 25 MG PO BID, (Reported) Entered as Reported by: SORIN YOUNG on 08/11/18 110 Omeprazole (Omeprazole) 40 Mg Capsule.dr, 40 MG PO DAILY, (Reported) Entered as Reported by: LASHANDA WISE on 04/30/191425 Ondansetron HCl (Ondansetron HCl) 8 Mg Tablet, (Reported) Entered as Reported by: CHUYITA HENRY on 06/01/192300 Oseltamivir Phosphate (Oseltamivir Phosphate) 75 Mg Capsule, (Reported) Entered as Reported by: CHUYITA HENRY on 3/13/20 2301 Oxycodone HCl/Acetaminophen (Percocet 5-325 mg Tablet) 1 Each Tablet, 1 TAB PO Q4H Prescribed by: JOSE G FERNNADES on 05/02/19 1257 Potassium Chloride (Potassium Chloride) 10 Meq Capsule.er, 20 MEQ PO DAILY, (Reported) Entered as Reported by: SORIN YOUNG on 08/11/18 1109 Sennosides (Senna) 8.6 Mg Tablet, 2 TAB PO HS, (Reported) Entered as Reported by: SORIN YOUNG on 08/11/18 1109 Review of Systems Review of Systems Constitutional: see HPI, dizziness EENTM: see HPI, no symptoms reported Respiratory: no symptoms reported, see HPI Cardiovascular: no symptoms reported, see HPI; No chest pain Gastrointestinal: no symptoms reported, see HPI; No abdominal pain, No nausea, No vomiting Genitourinary: no symptoms reported, see HPI All Other Systems Reviewed Negative Unless Noted: Yes Past Irwijlo-Tionxd-Rptriz Hx Patient Social History Tobacco Use?: Yes Tobacco type used: Cigarettes Smoking Status: Current Everyday Smoker Use of E-Cig and/or Vaping dev: No Substance use?: No Alcohol Use?: No Pt feels they are or have been: No Immunizations Up To Date Tetanus Booster (TDap): Unknown PED Vaccines UTD: No Influenza Vaccine Up-to-Date: No; Not Current Seasonal Allergies Seasonal Allergies: Yes Past Medical History Surgeries: Yes (TOE NAIL REMOVED, D&C, DXLS, hernia) Section, Gallbladder, Tubal Ligation Respiratory: Yes (LEFT LUNG NODULE) Cardiac: Yes (TACHYCARDIA) Coronary Artery Disease, High Cholesterol, Hypertension, Irregular Heartbeat Neurological: Yes (r sided numbness r/t previous stroke, STROKE X4) Headaches /Migraines, Stroke, Vertigo Reproductive Disorders: Yes Female Reproductive Disorders: Menstrual Problems, Endometriosis 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, 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 Sexually Transmitted Disease: No Genitourinary: Yes UTI-Chronic Gastrointestinal: Yes (enlarged liver) Gastroesophageal Reflux, Chronic Constipation, Hiatal Hernia Musculoskeletal: Yes Arthritis, Chronic Back Pain Endocrine: Yes Diabetes, Insulin dep HEENT: Yes (GLASSES, DENTURES) Loss of Vision: Bilateral Cancer: No Psychosocial: Yes (panic attacks) Anxiety, PTSD Integumentary: No Blood Disorders: Yes Adverse Reaction/Blood Tranf: No Family Medical History Reviewed Nursing Family Hx Cancer 19 MOTHER (THROAT CANCER) Family history: Hypertension 19 MOTHER History of - disorder G8 SISTER (SISTER HAD MS) Myocardial infarction 19 FATHER 19 MOTHER Stroke 19 MOTHER Heart Disease, Hypertension, Stroke Physical Exam Vital Signs Vital Signs - First Documented 12/30/20 11:06 Temp 36.4 Pulse 107 Resp 18 B/P (MAP) 118/56 (76) Pulse Ox 96 O2 Delivery Room Air Capillary Refill : Height, Weight, BMI Height: 5'3.00" Weight: 180lbs. 0.0oz. 81.846545lr; 28.39 BMI Method:Stated General Appearance: No Apparent Distress, WD/WN Eyes: Bilateral Eye Normal Inspection, Bilateral Eye PERRL, Bilateral Eye EOMI HEENT: PERRL/EOMI, TMs Normal, Normal ENT Inspection Neck: Full Range of Motion, Normal Inspection, Non Tender, Supple Respiratory: Chest Non Tender, Lungs Clear, Normal Breath Sounds Cardiovascular: Regular Rate, Rhythm, No Murmur, Normal Peripheral Pulses Gastrointestinal: Normal Bowel Sounds, Non Tender, Soft Extremity: Normal Capillary Refill, Normal Inspection, Normal Range of Motion, Non Tender, No Calf Tenderness Neurologic/Psychiatric: Alert, Oriented x3, No Motor/Sensory Deficits, Normal 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, 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 Norm as Tested; No Abnormal Gait, No Facial Droop Skin: Normal Color, Warm/Dry Progress/Results/Core Measures Suspected Sepsis SIRS Temperature: Pulse: 113 Respiratory Rate: Laboratory Tests 12/30/20 12:15: White Blood Count 10.9 Blood Pressure 112 /63 Mean: 79 Laboratory Tests 12/30/20 12:15: Creatinine 0.70, INR Comment 0.9, Platelet Count 209, Total Bilirubin 0.9 Results/Orders Lab Results Laboratory Tests Test 12/30/20 11:21 12/30/20 12:15 Range/Units Urine Color YELLOW Urine Clarity CLEAR Urine pH 6.0 5-9 Urine Specific Kennard 1.015 L 1.016-1.022 Urine Protein NEGATIVE NEGATIVE Urine Glucose (UA) 3+ H NEGATIVE Urine Ketones NEGATIVE NEGATIVE Urine Nitrite NEGATIVE NEGATIVE Urine Bilirubin NEGATIVE NEGATIVE Urine Urobilinogen 0.2 < = 1.0 MG/DL Urine Leukocyte Esterase NEGATIVE NEGATIVE Urine RBC (Auto) NEGATIVE NEGATIVE Urine RBC NONE /HPF Urine WBC 0-2 /HPF Urine Squamous Epithelial Cells 2-5 /HPF Urine Crystals NONE /LPF Urine Bacteria FEW H /HPF Urine Casts NONE /LPF Urine Mucus NEGATIVE /LPF Urine Yeast RARE /HPF Urine Culture Indicated YES White Blood Count 10.9 4.3-11.0 10^3/uL Red Blood Count 4.94 3.80-5.11 10^6/uL Hemoglobin 14.6 11.5-16.0 g/dL Hematocrit 45 35-52 % Mean Corpuscular Volume 92 80-99 fL Mean Corpuscular Hemoglobin 30 25-34 pg Mean Corpuscular Hemoglobin Concent 32 32-36 g/dL Red Cell Distribution Width 13.6 10.0-14.5 % Platelet Count 209 130-400 10^3/uL Mean Platelet Volume 10.5 9.0-12.2 fL Immature Granulocyte % (Auto) 0 % Neutrophils (%) (Auto) 58 42-75 % Lymphocytes (%) (Auto) 33 12-44 % Monocytes (%) (Auto) 7 0-12 % Eosinophils (%) (Auto) 2 0-10 % Basophils (%) (Auto) 1 0-10 % Neutrophils # (Auto) 6.3 1.8-7.8 10^3/uL Lymphocytes # (Auto) 3.6 1.0-4.0 10^3/uL Monocytes # (Auto) 0.7 0.0-1.0 10^3/uL Eosinophils # (Auto) 0.2 0.0-0.3 10^3/uL Basophils # (Auto) 0.1 0.0-0.1 10^3/uL Immature Granulocyte # (Auto) 0.0 0.0-0.1 10^3/uL Prothrombin Time 12.9 12.2-14.7 SEC INR Comment 0.9 0.8-1.4 Activated Partial Thromboplast Time 28 24-35 SEC Sodium Level 140 135-145 MMOL/L Potassium Level 3.3 L 3.6-5.0 MMOL/L Chloride Level 102 98-107 MMOL/L Carbon Dioxide Level 25 21-32 MMOL/L Anion Gap 13 5-14 MMOL/L Blood Urea Nitrogen 12 7-18 MG/DL Creatinine 0.70 0.60-1.30 MG/DL Estimat Glomerular Filtration Rate 88 BUN/Creatinine Ratio 17 Glucose Level 173 H 70-105 MG/DL Calcium Level 9.3 8.5-10.1 MG/DL Corrected Calcium 9.4 8.5-10.1 MG/DL Total Bilirubin 0.9 0.1-1.0 MG/DL Aspartate Amino Transf (AST/SGOT) 22 5-34 U/L Alanine Aminotransferase (ALT/SGPT) 23 0-55 U/L Alkaline Phosphatase 91 40-136 U/L Troponin I < 0.028 <0.028 NG/ML Total Protein 7.5 6.4-8.2 GM/DL Albumin 3.9 3.2-4.5 GM/DL My Orders Orders - MAGDA MARTINEZ Ct Head Wo-R/O Stroke (12/30/20 11:42) Cbc With Automated Diff (12/30/20 11:42) Comprehensive Metabolic Panel (12/30/20 11:42) Protime With Inr (12/30/20 11:42) Partial Thromboplastin Time (12/30/20 11:42) Troponin I (12/30/20 11:42) Ua Culture If Indicated (12/30/20 11:42) Meclizine Tablet (Antivert Tablet) (12/30/20 11:42) Ekg Tracing (12/30/20 11:42) Urine Culture (12/30/20 11:21) Ct Angio Head/Neck (12/30/20 12:50) Iohexol Injection (Omnipaque 350 Mg/Ml 1 (12/30/20 13:00) Received Contrast (Hold Metformin- Contr (12/30/20 13:00) Ns (Ivpb) (Sodium Chloride 0.9% Ivpb Bag (12/30/20 13:00) Medications Given in ED Current Medications Medications Dose Ordered Sig/Lorie Route Start Time Stop Time Status Last Admin Dose Admin Iohexol 100 ml ONCE ONCE IV 12/30/20 13:00 12/30/20 13:01 DC 12/30/20 13:18 75 ML Sodium Chloride 100 ml ONCE ONCE IV 12/30/20 13:00 12/30/20 13:01 DC 12/30/20 13:18 80 ML Vital Signs/I&O 12/30/20 12/30/20 12/30/20 11:06 11:53 15:16 Temp 36.4 Pulse 107 98 93 100 113 Resp 18 16 B/P (MAP) 118/56 (76) 126/57 (80) 120/76 129/63 (85) 112/63 (79) Pulse Ox 96 97 O2 Delivery Room Air Room Air Capillary Refill : Blood Pressure Mean: 79 Progress Note : Time: 11:06 Progress Note Patient seen and evaluated. Will get orthostatic B/P, CT head, Labs and EKG. 1310 CT head normal, Meclizine 25 mg orally for vertigo. 1430 Patient reports improvement in symptoms. 1430 CT angio/head and neck, neg for acute findings. Patient continues to report improvement in her symptoms. Discharge instructions and return precautions reviewed with her. ECG Initial ECG Impression Date: Dec 30, 2020 Initial ECG Impression Time: 11:57 Initial ECG Rate: 90 Initial ECG Rhythm: Normal Sinus Initial ECG Intervals: Normal Initial ECG Intervals SD 156, QRSD 84, QT 366, QTc 448. Rosser P 42, QRS -6, T 49. Initial ECG Impression: Normal Initial ECG Comparisson: Unchanged Diagnostic Imaging Diagonstic Imaging: CT Plain Films/CT/US/NM/MRI: head Comments NAME: ARIEL BRYANT [facility] REC#: [id number] PT STATUS: REG ER : 1970 PHYSICIAN: MAGDA MARTINEZ ADMIT DATE: 12/30/20/ER Draft Date of Exam:12/30/20 CT HEAD WO-R/O STROKE PROCEDURE: CT head wo r/o stroke. TECHNIQUE: Multiple contiguous axial images were obtained through the brain without the use of intravenous contrast. Auto Exposure Controls were utilized during the CT exam to meet ALARA standards for radiation dose reduction. INDICATION: Dizziness, stroke. COMPARISON: 11/24/2017. FINDINGS: There is no intracerebral hemorrhage. No hydrocephalus, edema, mass, mass effect, or evidence for an elevation to the intracerebral pressures. There is no sulcal effacement. No abnormal extra-axial fluid collection. No change from prior. Orbits, sinuses, and calvarium appeared nonacute. IMPRESSION: No hemorrhage, edema, or acute pathology, unchanged from prior. Dictated on workstation # [id number] Dict: 12/30/20 1233 Trans: 12/30/20 1246 [id number] Interpreted by: SHASHI PATRICIO Electronically signed by: Reviewed: Reviewed by Me Diagonstic Imaging: CT Plain Films/CT/US/NM/MRI: c-spine, head Comments NAME: ARIEL BRYANT [facility] REC#: [id number] PT STATUS: REG ER : 1970 PHYSICIAN: MAGDA MARTINEZ ADMIT DATE: 12/30/20/ER Draft Date of Exam:12/30/20 CT ANGIO HEAD/NECK PROCEDURE: CT angiography of the head and CT angiography of the neck with and without contrast. TECHNIQUE: Contiguous noncontrast images were obtained from the skull base through the vertex. After intravenous contrast administration, helical CT angiography of the neck was performed. Source data was reformatted into 3D MIP projections. Delayed postcontrast acquisition was also obtained. Auto Exposure Controls were utilized during the CT exam to meet ALARA standards for radiation dose reduction. INDICATION: Vertigo and head pressure. FINDINGS: Delayed postcontrast imaging is without enhancing lesion. There is a three-vessel branching pattern to the aortic arch. The right and left common carotid arteries are widely patent. The right and left carotid bifurcations are unremarkable. The right and left internal carotid arteries appear to be widely patent. The right vertebral artery is dominant. Left vertebral artery is small. Both vertebral arteries are patent. The basilar artery is patent. The right and left posterior cerebral arteries are patent. The M1 and M2 segments of the middle cerebral arteries bilaterally are patent. No filling defect or thromboembolism is seen. There is no large branch occlusion. The right and left anterior cerebral arteries are patent. IMPRESSION: Unremarkable CT angiogram of the head and neck. No large branch occlusion or thromboembolism is identified. Dictated on workstation # [id number] Dict: 12/30/20 1433 Trans: 12/30/20 1442 [id number] Interpreted by: TAO DICK MD Electronically signed by: Reviewed: Reviewed by Me Departure Impression Primary Impression: Vertigo Disposition: 01 HOME, SELF-CARE Condition: Improved Departure-Patient Inst. Decision time for Depature: 14:30 Referrals: [facility]ENDY (PCP) Primary Care Physician CHESTER JOYCE APRN (Family) Primary Care Physician Patient Instructions: Vertigo (a Type of Dizziness) (DC) Add. Discharge Instructions: You can take meclizine 25 mg [id number] every 8 hours as needed for dizziness. Avoid Haunted houses, limit time on cell phones, computers, and TV. Keep your scheduled follow-up with your primary care provider for . Follow-up with your neurologist in if symptoms are not improving or worsen. Increase water intake, 16 ounces every 2 hours while awake and drink 1 glass of cranberry juice daily. Return to the emergency department for new, urgent healthcare needs. All discharge instructions reviewed with patient and/or family. Voiced understanding. MAGDA MARTINEZ Dec 30, 2020 12:41
[2020-12-30 12:43] LABS: BILIRUBIN,TOTAL 0.9 MG/DL (0.1-1.0)
[2020-12-30 12:44] LABS: ALKALINE PHOSPHATASE 91 U/L (40-136); GFR ESTIMATED 88
[2020-12-30 12:46] LABS: BUN/CREATININE RATIO 17
[2020-12-30 12:47] LABS: ALANINE AMINOTRANSFERASE 23 U/L (0-55)
--- NOTE | 2020-12-30 12:47 | Diagnostic Imaging Report ---
PROCEDURE: CT head wo r/o stroke. TECHNIQUE: Multiple contiguous axial images were obtained through the brain without the use of intravenous contrast. Auto Exposure Controls were utilized during the CT exam to meet ALARA standards for radiation dose reduction. INDICATION: Dizziness, stroke. COMPARISON: 11/24/2017. FINDINGS: There is no intracerebral hemorrhage. No hydrocephalus, edema, mass, mass effect, or evidence for an elevation to the intracerebral pressures. There is no sulcal effacement. No abnormal extra-axial fluid collection. No change from prior. Orbits, sinuses, and calvarium appeared nonacute. IMPRESSION: No hemorrhage, edema, or acute pathology, unchanged from prior. Dictated by: Dictated on workstation # [id number]
[2020-12-30] MEDS ORDERED: HOLD METFORMIN - RECEIVED CONTRAST 20 ML VIAL IV SCH (13:00)
[2020-12-30] MEDS ORDERED: NS 100 ML (IVPB) BAG IV ONE (13:00)
[2020-12-30] MEDS ORDERED: IOHEXOL 350 MG/ML 100 ML (OMNIPAQUE 350) VIAL IV ONE (13:00)
--- NOTE | 2020-12-30 14:42 | Diagnostic Imaging Report ---
PROCEDURE: CT angiography of the head and CT angiography of the neck with and without contrast. TECHNIQUE: Contiguous noncontrast images were obtained from the skull base through the vertex. After intravenous contrast administration, helical CT angiography of the neck was performed. Source data was reformatted into 3D MIP projections. Delayed postcontrast acquisition was also obtained. Auto Exposure Controls were utilized during the CT exam to meet ALARA standards for radiation dose reduction. INDICATION: Vertigo and head pressure. FINDINGS: Delayed postcontrast imaging is without enhancing lesion. There is a three-vessel branching pattern to the aortic arch. The right and left common carotid arteries are widely patent. The right and left carotid bifurcations are unremarkable. The right and left internal carotid arteries appear to be widely patent. The right vertebral artery is dominant. Left vertebral artery is small. Both vertebral arteries are patent. The basilar artery is patent. The right and left posterior cerebral arteries are patent. The M1 and M2 segments of the middle cerebral arteries bilaterally are patent. No filling defect or thromboembolism is seen. There is no large branch occlusion. The right and left anterior cerebral arteries are patent. IMPRESSION: Unremarkable CT angiogram of the head and neck. No large branch occlusion or thromboembolism is identified. Dictated by: Dictated on workstation # [id number]
[2020-12-30 15:16] VITALS: BP 120/76
== END 2020-12-30 15:00 | disposition home or self-care (01) ==
LOC: ER 10:32 → EDUNIT# 10:32 → ER 15:00
DX: R42 Dizziness and giddiness (principal); I10 Essential (primary) hypertension; E11.9 Type 2 diabetes mellitus without complications; E78.00 Pure hypercholesterolemia, unspecified; I25.10 Atherosclerotic heart disease of native coronary artery without angina pectoris; G43.909 Migraine, unspecified, not intractable, without status migrainosus; K21.9 Gastro-esophageal reflux disease without esophagitis; K59.09 Other constipation; G89.29 Other chronic pain; M54.50 Low back pain, unspecified; F41.9 Anxiety disorder, unspecified; F43.10 Post-traumatic stress disorder, unspecified; F17.210 Nicotine dependence, cigarettes, uncomplicated; Z79.4 Long term (current) use of insulin; Z79.899 Other long term (current) drug therapy; Z79.1 Long term (current) use of non-steroidal anti-inflammatories (NSAID); Z79.891 Long term (current) use of opiate analgesic; Z79.82 Long term (current) use of aspirin; Z79.84 Long term (current) use of oral hypoglycemic drugs
CPT/HCPCS: 36415; 70450; 70496; 70498; 80053; 81000; 84484; 85025; 85610; 85730; 87077; 87088; 87186; 93005

== ENCOUNTER → 2021-08-27 | Outpatient (CLI) | payer MEDICARE, MEDICAID ==
[~2021-08-27] MED LIST changes: +ONDA-106; -ONDA8TAB15
== END ==
LOC: CARD 09:00
PROVIDERS: ATTEND Internal Medicine Cardiovascular Disease
DX: I25.10 Atherosclerotic heart disease of native coronary artery without angina pectoris (principal); I10 Essential (primary) hypertension
CPT/HCPCS: 93306

== ENCOUNTER → 2021-10-05 | Outpatient (CLI) | payer MEDICARE, MEDICAID ==
[~2021-10-05] VITALS: Ht 157 cm; Wt 73.0 kg
[~2021-10-05] MED LIST changes: +CATHETER FLUSH 10 ML SYR IVP PRN; +REGADENOSON 0.4 MG/5 ML SYR (LEXISCAN) IV ONE
[2021-10-05 09:34] VITALS: BP 138/76
--- NOTE | 2021-10-07 10:51 | Cardiology Stress Test Report ---
Stress Test Report Date of Procedure/Referring: Date of Procedure: Oct 05, 2021 PCP Deleted Admitting Physician Admitting Physician: Attending Physician: Yuko Hill MD Indications: CP Baseline Heart Rate: 77 Baseline Blood Pressure: Blood Pressure Systolic: 138 Blood Pressure Diastolic: 76 Baseline Vitals Vital Signs Date Time Temp Pulse Resp B/P (MAP) Pulse Ox O2 Delivery O2 Flow Rate FiO2 10/05/21 09:34 80 138/76 (96) 97 Baseline EKG: Baseline EKG: NSR Summary After explaining the procedure to the patient, she signed a consent and then brought to the stress nuclear laboratory. Patient received 0.4 mg Lexiscan for stress test, ECG, heart rate and blood pressure were monitored continuously. Resting and stress dose of radio tracer were injected, imaging was acquired and reviewed in short axis, horizontal long axis and vertical long axis views. TID: 1.12 SSS: 4 SDS: 1 EF: 81 1. Patient tolerated Lexiscan well 2. No significant ischemia or infarction on SPECT images 3. Normal left ventricular size, ejection fraction 81% YUKO HILL MD Oct 07, 2021 10:51
== END ==
LOC: CARD 08:30
PROVIDERS: ATTEND Internal Medicine Cardiovascular Disease
DX: I25.10 Atherosclerotic heart disease of native coronary artery without angina pectoris (principal); I10 Essential (primary) hypertension
CPT/HCPCS: 78452; 93017; A9502